=== PATIENT | male | born 1955 | race Two or more races ===

== ENCOUNTER 2018-02-02 13:20 | Inpatient (IN) | payer MEDICARE, MEDICAID ==
[~2018-02-02] VITALS: Ht 170.2 cm; Wt 66.0 kg
[2018-02-02] MEDS ORDERED: PROAIR HFA8.5 GM INH (13:56)
[2018-02-02] MEDS ORDERED: ROXICODONE5 MG ORAL (13:56)
[2018-02-02] MEDS ORDERED: OXYCODONE HCL20 M1 ORAL (13:56)
[2018-02-02] MEDS ORDERED: ARANESP100 MCG/1 SUBQ (13:56)
[2018-02-02] MEDS ORDERED: HYDRALAZINE HCL25 M1 ORAL (13:56)
[2018-02-02] MEDS ORDERED: BISACODYL10 M1 RC (13:56)
[2018-02-02] MEDS ORDERED: SENNA8.6 M2 PO (13:56)
[2018-02-02] MEDS ORDERED: ROBITUSSIN DM PO (13:56)
[2018-02-02] MEDS ORDERED: METOPROLOL TART50 M1 ORAL (13:56)
[2018-02-02] MEDS ORDERED: DOCUSATE SODIU100 MG ORAL (13:56)
[2018-02-02] MEDS ORDERED: NICODERM CQ1 EAC1 TD (13:56)
[2018-02-02] MEDS ORDERED: CATAPRES0.2 MG ORAL (13:56)
[2018-02-02] MEDS ORDERED: RENVELA0.8 GM ORAL (13:56)
[2018-02-02] MEDS ORDERED: AMBIEN10 MG ORAL (13:56)
[2018-02-02] MEDS ORDERED: ACETAMINOPHEN325 M1 ORAL (13:56)
[2018-02-02] MEDS ORDERED: AMLODIPINE BESY10 MG ORAL (13:56)
[2018-02-02] MEDS ORDERED: RENVELA800 MG ORAL (13:56)
[2018-02-02] MEDS ORDERED: QUETIAPINE FUMA25 MG ORAL (13:56)
[2018-02-02] MEDS ORDERED: XANAX0.25 MG ORAL (13:56)
[2018-02-02] MEDS ORDERED: ZOFRAN ODT4 MG ORAL (13:56)
[2018-02-02] MEDS ORDERED: IPRATROPIU0.2 MG/1 M HHN (13:56)
[2018-02-02] MEDS ORDERED: Pantoprazole 80 MG in NS 250 ML IV ONE (14:00)
[2018-02-02] MEDS ORDERED: Pantoprazole Inj IVP ONE (14:00)
[2018-02-02 14:09] LABS: HEMATOCRIT 23.2 % (42.0-52.0); HEMOGLOBIN 7.5 G/DL (14.2-18.0); MEAN CORPUSCULAR VOLUME 96 FL (80-99); PLATELET COUNT 139 K/UL (150-450); RED BLOOD COUNT 2.42 M/UL (4.70-6.10); RED CELL DISTRIBUTION WIDTH 17.5 % (11.6-14.8); WHITE BLOOD COUNT 5.9 K/UL (4.8-10.8)
[2018-02-02 14:10] VITALS: BP 167/67
[2018-02-02 14:18] LABS: ALANINE AMINOTRANSFERASE 10 U/L (12-78); ALBUMIN 3.1 G/DL (3.4-5.0); ALBUMIN/GLOBULIN RATIO 0.6 (1.0-2.7); ALKALINE PHOSPHATASE 304 U/L (46-116); ANION GAP 7 mmol/L (5-15); ASPARTATE AMINO TRANSFERASE 12 U/L (15-37); BILIRUBIN,TOTAL 0.6 MG/DL (0.2-1.0); BLOOD UREA NITROGEN 59 mg/dL (7-18); CALCIUM 8.4 MG/DL (8.5-10.1); CARBON DIOXIDE 33 MMOL/L (21-32); CHLORIDE 103 MMOL/L (98-107); CREATININE 7.8 MG/DL (0.55-1.30); SODIUM 143 MMOL/L (136-145)
[2018-02-02 14:19] LABS: INR 1.1 (0.9-1.1)
[2018-02-02 14:20] LABS: POTASSIUM 6.1 MMOL/L (3.5-5.1)
--- NOTE | 2018-02-02 14:21 | Emergency Room Report ---
History of Present Illness General Chief Complaint: Abnormal Labs Source: Patient, Medical Record Present Illness HPI Patient presents in emergency department today complaining of anemia. Patient has a history of renal failure and is on dialysis. Patient currently stays at a assisted. Patient's primary care physician is Dr. Pedro Hutson. Patient apparently had a hip fracture recently and is been recuperating at the convalescent home. Patient was noted to be anemic and came here for further evaluation. His hemoglobin reportedly was 6.8. Patient complains of weakness does appear pale. He denies any chest pain shortness of breath. Denies any melena. No other complaints were noted. Symptoms noted to be moderate to severe.No other modifying factors. No other associated signs and symptoms. No other complaints were noted. Allergies: Coded Allergies: No Known Allergies (Unverified , 02/02/18) Patient History Past Medical History: HTN, COPD, psych hx - ptsd, renal disease, dialysis, other - bph Reviewed Nursing Documentation: PMH: Agreed; PSxH: Agreed Nursing Documentation-PMH Hx Hypertension: Yes Hx COPD: Yes Hx Gastrointestinal Problems: Yes - BPH Hx Dialysis: Yes - ESRD,[id number] History Of Psychiatric Problem: Yes - PTSD Review of Systems All Other Systems: negative except mentioned in HPI Physical Exam Vital Signs Date Time Temp Pulse Resp B/P (MAP) Pulse Ox O2 Delivery O2 Flow Rate FiO2 02/02/18 13:21 98.0 74 14 147/71 91 Room Air 98.1 02/02/18 14:10 2.0 Sp02 EP Interpretation: reviewed, normal General Appearance: alert, moderate distress Head: normocephalic, atraumatic Eyes: bilateral eye normal inspection, bilateral eye other - Pale conjunctiva ENT: normal ENT inspection, hearing grossly normal, normal voice Neck: normal inspection, full range of motion, supple, no bony tend Respiratory: normal inspection, lungs clear, normal breath sounds, no respiratory distress, no retraction, no wheezing Cardiovascular #1: regular rate, rhythm, no edema Gastrointestinal: normal inspection, normal bowel sounds, non tender, soft, no guarding, no hernia Genitourinary: no CVA tenderness Musculoskeletal: normal inspection, back normal, normal range of motion Neurologic: normal inspection, alert, responsive, speech normal Psychiatric: normal inspection, judgement/insight normal, depressed affect Skin: normal inspection, normal color, no rash Procedures Critical Care Time Critical Care Time Patient had a critical medical condition which untreated could potentially result in life or limb threatening injury. Total critical care time excluding procedures was approximately 45 minutes. Medical Decision Making Diagnostic Impression: Primary Impression: Abnormal laboratory test result Additional Impressions: Acute hyperkalemia Symptomatic anemia ER Course Patient presents emergency department today with anemia noted at the assisted. Patient is also due for dialysis. Differential diagnoses include acute severe symptomatically anemia, GI bleeding, hyperkalemia, other electrolyte abnormality just to name a few.Given the severity of the patient's presentation I felt this is a highly complex patient. This patient required extensive workup. Patient's laboratory workup shows significant elevated potassium. EKG shows prominent T waves. This is concerning for severe hyperkalemia. Patient require immediate treatment. Patient was started on Kayexalate and bicarbonate. Albuterol was also administered. Patient is type and screen will likely require blood transfusion. Case discussed with Dr. Pedro Hutson. Patient will be admitted to telemetry for further treatment. Labs Test 02/02/18 13:50 White Blood Count 5.9 K/UL (4.8-10.8) Red Blood Count 2.42 M/UL (4.70-6.10) Hemoglobin 7.5 G/DL (14.2-18.0) Hematocrit 23.2 % (42.0-52.0) Mean Corpuscular Volume 96 FL (80-99) Mean Corpuscular Hemoglobin 31.2 PG (27.0-31.0) Mean Corpuscular Hemoglobin Concent 32.5 G/DL (32.0-36.0) Red Cell Distribution Width 17.5 % (11.6-14.8) Platelet Count 139 K/UL (150-450) Mean Platelet Volume 5.6 FL (6.5-10.1) Neutrophils (%) (Auto) % (45.0-75.0) Lymphocytes (%) (Auto) % (20.0-45.0) Monocytes (%) (Auto) % (1.0-10.0) Eosinophils (%) (Auto) % (0.0-3.0) Basophils (%) (Auto) % (0.0-2.0) Prothrombin Time 11.4 SEC (9.30-11.50) Prothromb Time International Ratio 1.1 (0.9-1.1) Activated Partial Thromboplast Time 31 SEC (23-33) Sodium Level 143 MMOL/L (136-145) Potassium Level 6.1 MMOL/L (3.5-5.1) Chloride Level 103 MMOL/L (98-107) Carbon Dioxide Level 33 MMOL/L (21-32) Anion Gap 7 mmol/L (5-15) Blood Urea Nitrogen 59 mg/dL (7-18) Creatinine 7.8 MG/DL (0.55-1.30) Estimat Glomerular Filtration Rate 7.0 mL/min (>60) Glucose Level 113 MG/DL (74-106) Calcium Level 8.4 MG/DL (8.5-10.1) Total Bilirubin 0.6 MG/DL (0.2-1.0) Aspartate Amino Transf (AST/SGOT) 12 U/L (15-37) Alanine Aminotransferase (ALT/SGPT) 10 U/L (12-78) Alkaline Phosphatase 304 U/L (46-116) Troponin I 0.005 ng/mL (0.000-0.056) Total Protein 7.9 G/DL (6.4-8.2) Albumin 3.1 G/DL (3.4-5.0) Globulin 4.8 g/dL Albumin/Globulin Ratio 0.6 (1.0-2.7) EKG Diagnostic Results Rate: normal Rhythm: NSR ST Segments: other - Prominent T waves Rhythm Strip Diag. Results EP Interpretation: yes Rate: 73 Rhythm: NSR Last Vital Signs Date Time Temp Pulse Resp B/P (MAP) Pulse Ox O2 Delivery O2 Flow Rate FiO2 02/02/18 14:10 97.6 98 21 167/67 Nasal Cannula 2.0 97.6 02/02/18 13:21 91 Status: improved Disposition: ADMITTED INPATIENT Condition: Serious Referrals: PEDRO HUTSON (PCP) KARLENE CAMERON M.D. Feb 02, 2018 14:21
[2018-02-02] MEDS ORDERED: Pantoprazole Inj ONE (14:30)
[2018-02-02] MEDS ORDERED: Albuterol ud Inhalation HHN ONE (14:30)
[2018-02-02] MEDS ORDERED: Sodium Bicarbonate 50ml Carp IV ONE (14:30)
[2018-02-02] MEDS ORDERED: Sodium Polystyrene Sulfonate 15gm Powder ORAL ONE (14:30)
--- NOTE | 2018-02-02 15:50 | Consultation ---
Consult Note Consult Note asked to eval for dialysis management ESRD on HD Sun didnt receive HD today Patient presents in emergency department today complaining of anemia. Patient has a history of renal failure and is on dialysis. Patient currently stays at a retirement. Patient's primary care physician is Dr. Lebron Swift. Patient apparently had a hip fracture recently and is been recuperating at the convalescent home. Patient was noted to be anemic and came here for further evaluation. His hemoglobin reportedly was 6.8. Patient complains of weakness does appear pale. He denies any chest pain shortness of breath. Denies any melena. No other complaints were noted. Symptoms noted to be moderate to severe.No other modifying factors. No other associated signs and symptoms. No other complaints were noted. Past Medical History: HTN, COPD, psych hx - ptsd, renal disease, dialysis, other - bph Hx Hypertension: Yes Hx COPD: Yes Hx Gastrointestinal Problems: Yes - BPH Hx Dialysis: Yes - ESRD,[id number] History Of Psychiatric Problem: Yes - PTSD interviewed- Examined- data reviewed Assessment/Plan ESRD, missed dialysis . has high K has fistula right arm Sever Anemia h/o Amyloidosis COPD HD MICHAEL Transfuse BP control DALTON ROSENTHAL Feb 02, 2018 15:50
[2018-02-02 20:00] VITALS: BP 206/95
[2018-02-02] MEDS: Acetaminophen 500mg (ES) tab ORAL PRN ×2 (21:20→21:21)
[2018-02-02] MEDS: DiphenhydrAMINE 50mg/ml Inj IVP PRN (21:20)
[2018-02-02 21:30] VITALS: BP 191/82
--- NOTE | 2018-02-02 23:45 | History and Physical Report ---
DATE OF ADMISSION: 02/02/2018 ADMITTING PHYSICIAN: Lebron Swift D.O. COVERING PHYSICIAN: Rahul Lewis M.D. REASON FOR ADMISSION: Significant anemia, hyperkalemia. CURRENT COMPLAINT/HISTORY OF PRESENT ILLNESS: Dear Dr. Lebron Swift: Today, I had an opportunity to see one of your patients, who as you are well aware, a 63-year-old delightful gentleman with past medical history remarkable for renal failure, hemodialysis dependent. The patient is currently a [facility] resident. The patient ended up recently with a hip fracture and was recuperating in a convalescent home. During evaluation, it was found that the patient developed significant anemia with hemoglobin of 7.5 and significant hyperkalemia with potassium level of 6.8. The patient will be admitted to for further stabilization and treatment. PAST MEDICAL HISTORY: 1. End-stage renal disease, hemodialysis dependent. 2. Anemia of kidney disease. 3. Anemia of iron deficiency. 4. Psychosis. 5. History of posttraumatic stress disorder. 6. Hypertension. 7. COPD. 8. BPH. MEDICATIONS: 1. Clonidine. 2. Protonix. ALLERGIES: NKDA. FAMILY HISTORY: Noncontributory. SOCIAL HISTORY: No history of smoking. No history of alcohol abuse. No history of illicit drug use. REVIEW OF SYSTEMS: GENERAL DESCRIPTION: The patient not in any significant distress, but looks chronically ill. RESPIRATORY SYSTEM: Mild shortness of breath on exertion. GASTROINTESTINAL SYSTEM: The patient claimed constipation. NEUROMUSCULAR SYSTEM: The patient claimed muscle aches. PHYSICAL EXAMINATION: VITAL SIGNS: T-max 97, respiratory rate 20, heart rate 80, blood pressure 130/80. HEENT: Head normocephalic, atraumatic. NECK: Supple. No thyroid enlargement. No lymphadenopathy. LUNGS: Decreased breath sounds bilaterally with few rhonchi in the base. HEART: S1, S2 regular. ABDOMEN: Abdomen is so benign. No organomegaly present. Bowel sounds present. EXTREMITIES: No cyanosis, clubbing, or edema. LABORATORY DATA: WBC 5.9, hemoglobin 7.5, hematocrit 23.2, platelets 139,000. Chemistry showed potassium 6.1. IMPRESSION: 1. Anemia of kidney disease. 2. Anemia of iron deficiency. 3. Decreased hemoglobin and hematocrit, rule out GI bleed. 4. Hyperkalemia. 5. Thrombocytopenia. 6. Hypertension. 7. COPD. 8. Posttraumatic stress disorder. 9. BPH. 10. Malnutrition. 11. Failure to thrive. RECOMMENDATIONS: 1. Watch count. 2. Watch coagulopathy. 3. PRBC transfusion p.r.n. basis. 4. Procrit subcutaneous. 5. Iron IV. 6. Hemodialysis p.r.n. basis. 7. Nephrology followup. 8. Cardiology followup. 9. Continue current treatment. 10. Discussed with staff. 11. Skin care. 12. Nutrition. Rahul MD Joshua DR: [facility] JOB#: [id number] CC:
[2018-02-03] VITALS (7 sets, daily range): BP systolic 127–197; BP diastolic 68–93
[2018-02-03 06:46] LABS: HEMATOCRIT 23.1 % (42.0-52.0); HEMOGLOBIN 7.5 G/DL (14.2-18.0); MEAN CORPUSCULAR VOLUME 95 FL (80-99); PLATELET COUNT 136 K/UL (150-450); RED BLOOD COUNT 2.43 M/UL (4.70-6.10); RED CELL DISTRIBUTION WIDTH 16.6 % (11.6-14.8); WHITE BLOOD COUNT 5.7 K/UL (4.8-10.8)
[2018-02-03 06:53] LABS: INR 1.1 (0.9-1.1)
[2018-02-03 07:53] LABS: ALANINE AMINOTRANSFERASE 10 U/L (12-78); ALBUMIN 3.3 G/DL (3.4-5.0); ALBUMIN/GLOBULIN RATIO 0.7 (1.0-2.7); ALKALINE PHOSPHATASE 318 U/L (46-116); ANION GAP 6 mmol/L (5-15); ASPARTATE AMINO TRANSFERASE 14 U/L (15-37); BILIRUBIN,TOTAL 0.8 MG/DL (0.2-1.0); BLOOD UREA NITROGEN 39 mg/dL (7-18); CALCIUM 8.6 MG/DL (8.5-10.1); CARBON DIOXIDE 39 MMOL/L (21-32); CHLORIDE 99 MMOL/L (98-107); CHOLESTEROL 103 MG/DL (< 200); CREATINE KINASE 32 U/L (26-308); CREATININE 5.3 MG/DL (0.55-1.30); FERRITIN 1330 NG/ML (8-388); GAMMA GLUTAMYL TRANSPEPTIDASE 46 U/L (5-85); HDL CHOLESTEROL 38 MG/DL (40-60); POTASSIUM 4.1 MMOL/L (3.5-5.1); SODIUM 144 MMOL/L (136-145); TRIGLYCERIDES 79 MG/DL (30-150)
[2018-02-03 08:53] LABS: % IRON SATURATION 21 % (15-50); IRON 36 ug/dL (50-175); TOTAL IRON BINDING CAPACITY 170 ug/dL (250-450)
--- NOTE | 2018-02-03 08:53 | Nephrology Progress Note ---
Assessment/Plan Problem List: (1) Acute hyperkalemia (2) ESRD (end stage renal disease) on dialysis (3) Hypertension, uncontrolled Assessment ESRD, missed dialysis . has high K on admission has fistula right arm Sever Anemia h/o Amyloidosis COPD Plan HD done last night Transfusion due for one unit now BP control, meds adjusted Subjective ROS Limited/Unobtainable: No Objective Objective Last 24 Hour Vital Signs Date Time Temp Pulse Resp B/P (MAP) Pulse Ox O2 Delivery O2 Flow Rate FiO2 02/03/18 08:00 98.1 79 20 170/93 94 Room Air 98.1 02/03/18 05:41 190/73 02/03/18 04:00 98.1 74 20 190/73 88 Room Air 98.1 02/03/18 04:00 79 02/03/18 00:48 Nasal Cannula 2.5 02/03/18 00:47 97.9 69 20 182/81 Nasal Cannula 2.5 97.9 02/03/18 00:00 97.9 68 20 197/87 97 Room Air 97.9 02/03/18 00:00 66 02/02/18 22:19 97.6 02/02/18 21:30 97.2 74 16 191/82 Room Air 97.2 02/02/18 21:30 Room Air 02/02/18 20:00 88 02/02/18 20:00 97.5 74 20 206/95 82 Room Air 97.5 02/02/18 15:15 78 22 95 Nasal Cannula 3.0 32 02/02/18 15:04 77 18 Nasal Cannula 4.0 36 02/02/18 15:04 77 18 91 Nasal Cannula 4.0 36 02/02/18 14:10 97.6 98 21 167/67 Nasal Cannula 2.0 97.6 02/02/18 13:21 98.0 74 14 147/71 91 Room Air 98.1 Intake and Output 02/02/18 02/03/18 19:00 07:00 Intake Total 120 ml 150 ml Output Total 2561 ml Balance 120 ml -2411 ml Intake Oral 120 ml 150 ml Output Hemodialysis UF 2561 ml # Voids 3 Laboratory Tests 02/02/18 13:50: White Blood Count 5.9, Red Blood Count 2.42L, Hemoglobin 7.5L, Hematocrit 23.2L , Mean Corpuscular Volume 96, Mean Corpuscular Hemoglobin 31.2H, Mean Corpuscular Hemoglobin Concent 32.5, Red Cell Distribution Width 17.5H, Platelet Count 139L, Mean Platelet Volume 5.6L, Neutrophils (%) (Auto) , Lymphocytes (%) (Auto) , Monocytes (%) (Auto) , Eosinophils (%) (Auto) , Basophils (%) (Auto) , Differential Total Cells Counted 100, Neutrophils % ( Manual) 71, Lymphocytes % (Manual) 22, Monocytes % (Manual) 5, Eosinophils % ( Manual) 2, Basophils % (Manual) 0, Band Neutrophils 0, Platelet Estimate DecreasedL, Platelet Morphology Normal, Prothrombin Time 11.4, Prothromb Time International Ratio 1.1, Activated Partial Thromboplast Time 31, Sodium Level 143, Potassium Level 6.1*H, Chloride Level 103, Carbon Dioxide Level 33H, Anion Gap 7, Blood Urea Nitrogen 59H, Creatinine 7.8H, Estimat Glomerular Filtration Rate 7.0, Glucose Level 113H, Calcium Level 8.4L, Total Bilirubin 0.6, Aspartate Amino Transf (AST/SGOT) 12L, Alanine Aminotransferase (ALT/SGPT) 10L, Alkaline Phosphatase 304H, Troponin I 0.005, C-Reactive Protein, Quantitative 5.9H, Total Protein 7.9, Albumin 3.1L, Globulin 4.8, Albumin/Globulin Ratio 0.6L 02/03/18 06:30: White Blood Count 5.7, Red Blood Count 2.43L, Hemoglobin 7.5L, Hematocrit 23.1L , Mean Corpuscular Volume 95, Mean Corpuscular Hemoglobin 30.9, Mean Corpuscular Hemoglobin Concent 32.5, Red Cell Distribution Width 16.6H, Platelet Count 136L, Mean Platelet Volume 5.3L, Neutrophils (%) (Auto) , Lymphocytes (%) (Auto) , Monocytes (%) (Auto) , Eosinophils (%) (Auto) , Basophils (%) (Auto) , Neutrophils % (Manual) [Pending], Lymphocytes % (Manual) [Pending], Platelet Estimate [Pending], Platelet Morphology [Pending], Prothrombin Time 11.4, Prothromb Time International Ratio 1.1, Sodium Level 144 , Potassium Level 4.1, Chloride Level 99, Carbon Dioxide Level 39H, Anion Gap 6 , Blood Urea Nitrogen 39H, Creatinine 5.3H, Estimat Glomerular Filtration Rate 11.0, Glucose Level 88, Calcium Level 8.6, Total Bilirubin 0.8, Aspartate Amino Transf (AST/SGOT) 14L, Alanine Aminotransferase (ALT/SGPT) 10L, Alkaline Phosphatase 318H, Troponin I 0.003, Total Protein 8.3H, Albumin 3.3L, Globulin 5.0, Albumin/Globulin Ratio 0.7L, Hemoglobin A1c 4.6, Uric Acid 3.2, Phosphorus Level 5.0H, Magnesium Level 1.9, Iron Level [Pending], Unsaturated Iron Binding [Pending], Ferritin 1330H, Gamma Glutamyl Transpeptidase 46, Total Creatine Kinase 32, Pro-B-Type Natriuretic Peptide 48224I, Triglycerides Level 79, Cholesterol Level 103, LDL Cholesterol 51, HDL Cholesterol 38L, Cholesterol/HDL Ratio 2.7L, Vitamin B12 Level 534, Folate 7.8L, Thyroid Stimulating Hormone (TSH ) 8.726H Height (Feet): 5 Height (Inches): 7.00 Weight (Pounds): 128 General Appearance: no apparent distress Cardiovascular: normal rate Respiratory/Chest: decreased breath sounds Abdomen: soft DLATON ROSENTHAL Feb 03, 2018 08:53
--- NOTE | 2018-02-03 10:31 | Cardiology Progress Note ---
Assessment/Plan Assessment/Plan htn acute dvt esrd anemai repeorted hs of gi bleed requring cuaterization resume bp meds form snf consider acie if ok with renal gi evla to ro recurrent gib may need ivc fitler if nto able to get anticoagulation for dvt message left form dr enciso pt pmd here 10;30 am [id number] Objective Last 24 Hour Vital Signs Date Time Temp Pulse Resp B/P (MAP) Pulse Ox O2 Delivery O2 Flow Rate FiO2 02/03/18 09:02 170/93 02/03/18 08:00 98.1 79 20 170/93 94 Room Air 98.1 02/03/18 05:41 190/73 02/03/18 04:00 98.1 74 20 190/73 88 Room Air 98.1 02/03/18 04:00 79 02/03/18 00:48 Nasal Cannula 2.5 02/03/18 00:47 97.9 69 20 182/81 Nasal Cannula 2.5 97.9 02/03/18 00:00 97.9 68 20 197/87 97 Room Air 97.9 02/03/18 00:00 66 02/02/18 22:19 97.6 02/02/18 21:30 97.2 74 16 191/82 Room Air 97.2 02/02/18 21:30 Room Air 02/02/18 20:00 88 02/02/18 20:00 97.5 74 20 206/95 82 Room Air 97.5 02/02/18 15:15 78 22 95 Nasal Cannula 3.0 32 02/02/18 15:04 77 18 Nasal Cannula 4.0 36 02/02/18 15:04 77 18 91 Nasal Cannula 4.0 36 02/02/18 14:10 97.6 98 21 167/67 Nasal Cannula 2.0 97.6 02/02/18 13:21 98.0 74 14 147/71 91 Room Air 98.1 Intake and Output 02/02/18 02/03/18 19:00 07:00 Intake Total 120 ml 150 ml Output Total 2561 ml Balance 120 ml -2411 ml Intake Oral 120 ml 150 ml Output Hemodialysis UF 2561 ml # Voids 3 Laboratory Tests Test 02/02/18 13:50 02/03/18 06:30 White Blood Count 5.9 K/UL (4.8-10.8) 5.7 K/UL (4.8-10.8) Red Blood Count 2.42 M/UL (4.70-6.10) L 2.43 M/UL (4.70-6.10) L Hemoglobin 7.5 G/DL (14.2-18.0) L 7.5 G/DL (14.2-18.0) L Hematocrit 23.2 % (42.0-52.0) L 23.1 % (42.0-52.0) L Mean Corpuscular Volume 96 FL (80-99) 95 FL (80-99) Mean Corpuscular Hemoglobin 31.2 PG (27.0-31.0) H 30.9 PG (27.0-31.0) Mean Corpuscular Hemoglobin Concent 32.5 G/DL (32.0-36.0) 32.5 G/DL (32.0-36.0) Red Cell Distribution Width 17.5 % (11.6-14.8) H 16.6 % (11.6-14.8) H Platelet Count 139 K/UL (150-450) L 136 K/UL (150-450) L Mean Platelet Volume 5.6 FL (6.5-10.1) L 5.3 FL (6.5-10.1) L Neutrophils (%) (Auto) % (45.0-75.0) % (45.0-75.0) Lymphocytes (%) (Auto) % (20.0-45.0) % (20.0-45.0) Monocytes (%) (Auto) % (1.0-10.0) % (1.0-10.0) Eosinophils (%) (Auto) % (0.0-3.0) % (0.0-3.0) Basophils (%) (Auto) % (0.0-2.0) % (0.0-2.0) Differential Total Cells Counted 100 100 Neutrophils % (Manual) 71 % (45-75) 69 % (45-75) Lymphocytes % (Manual) 22 % (20-45) 17 % (20-45) L Monocytes % (Manual) 5 % (1-10) 10 % (1-10) Eosinophils % (Manual) 2 % (0-3) 4 % (0-3) H Basophils % (Manual) 0 % (0-2) 0 % (0-2) Band Neutrophils 0 % (0-8) 0 % (0-8) Platelet Estimate Decreased L Decreased L Platelet Morphology Normal Normal Prothrombin Time 11.4 SEC (9.30-11.50) 11.4 SEC (9.30-11.50) Prothromb Time International Ratio 1.1 (0.9-1.1) 1.1 (0.9-1.1) Activated Partial Thromboplast Time 31 SEC (23-33) Sodium Level 143 MMOL/L (136-145) 144 MMOL/L (136-145) Potassium Level 6.1 MMOL/L (3.5-5.1) *H 4.1 MMOL/L (3.5-5.1) Chloride Level 103 MMOL/L (98-107) 99 MMOL/L (98-107) Carbon Dioxide Level 33 MMOL/L (21-32) H 39 MMOL/L (21-32) H Anion Gap 7 mmol/L (5-15) 6 mmol/L (5-15) Blood Urea Nitrogen 59 mg/dL (7-18) H 39 mg/dL (7-18) H Creatinine 7.8 MG/DL (0.55-1.30) H 5.3 MG/DL (0.55-1.30) H Estimat Glomerular Filtration Rate 7.0 mL/min (>60) 11.0 mL/min (>60) Glucose Level 113 MG/DL (74-106) H 88 MG/DL (74-106) Calcium Level 8.4 MG/DL (8.5-10.1) L 8.6 MG/DL (8.5-10.1) Total Bilirubin 0.6 MG/DL (0.2-1.0) 0.8 MG/DL (0.2-1.0) Aspartate Amino Transf (AST/SGOT) 12 U/L (15-37) L 14 U/L (15-37) L Alanine Aminotransferase (ALT/SGPT) 10 U/L (12-78) L 10 U/L (12-78) L Alkaline Phosphatase 304 U/L (46-116) H 318 U/L (46-116) H Troponin I 0.005 ng/mL (0.000-0.056) 0.003 ng/mL (0.000-0.056) C-Reactive Protein, Quantitative 5.9 mg/dL (0.00-0.90) H Total Protein 7.9 G/DL (6.4-8.2) 8.3 G/DL (6.4-8.2) H Albumin 3.1 G/DL (3.4-5.0) L 3.3 G/DL (3.4-5.0) L Globulin 4.8 g/dL 5.0 g/dL Albumin/Globulin Ratio 0.6 (1.0-2.7) L 0.7 (1.0-2.7) L Hypochromasia 1+ Anisocytosis 1+ Hemoglobin A1c 4.6 % (4.3-6.0) Uric Acid 3.2 MG/DL (2.6-7.2) Phosphorus Level 5.0 MG/DL (2.5-4.9) H Magnesium Level 1.9 MG/DL (1.8-2.4) Iron Level 36 ug/dL (50-175) L Total Iron Binding Capacity 170 ug/dL (250-450) L Percent Iron Saturation 21 % (15-50) Unsaturated Iron Binding 134 ug/dL (112-346) Ferritin 1330 NG/ML (8-388) H Gamma Glutamyl Transpeptidase 46 U/L (5-85) Total Creatine Kinase 32 U/L (26-308) Pro-B-Type Natriuretic Peptide 03291 pg/mL (0-125) H Triglycerides Level 79 MG/DL (30-150) Cholesterol Level 103 MG/DL (< 200) LDL Cholesterol 51 mg/dL (<100) HDL Cholesterol 38 MG/DL (40-60) L Cholesterol/HDL Ratio 2.7 (3.3-4.4) L Vitamin B12 Level 534 PG/ML (193-986) Folate 7.8 NG/ML (8.6-58.9) L Thyroid Stimulating Hormone (TSH) 8.726 uiU/mL (0.358-3.740) JACINTO CORONA Feb 03, 2018 10:31
[2018-02-03] MEDS ORDERED: Metoprolol Tartrate 50mg tab ORAL SCH (11:00)
[2018-02-03] MEDS ORDERED: cloNIDine 0.2mg Tab ORAL SCH (11:00)
[2018-02-03] MEDS: HydrALAZINE 25mg tab ORAL SCH ×3 (12:36→21:49)
--- NOTE | 2018-02-03 12:57 | General Progress Note ---
Assessment/Plan Assessment/Plan GI CONSULT Dictated. Normocytic anemia. Iron panel noted. OK for anticoagulation from GI standpoint Will check stool OB May need GI w/u if OB (+) Thank you P MD Amarilis Subjective Allergies: Coded Allergies: No Known Allergies (Unverified , 02/02/18) Objective Last 24 Hour Vital Signs Date Time Temp Pulse Resp B/P (MAP) Pulse Ox O2 Delivery O2 Flow Rate FiO2 02/03/18 12:36 70 134/68 02/03/18 12:36 134/68 02/03/18 12:00 98.4 70 21 134/68 93 Room Air 98.4 02/03/18 09:02 170/93 02/03/18 08:00 98.1 79 20 170/93 94 Room Air 98.1 02/03/18 05:41 190/73 02/03/18 04:00 98.1 74 20 190/73 88 Room Air 98.1 02/03/18 04:00 79 02/03/18 00:48 Nasal Cannula 2.5 02/03/18 00:47 97.9 69 20 182/81 Nasal Cannula 2.5 97.9 02/03/18 00:00 97.9 68 20 197/87 97 Room Air 97.9 02/03/18 00:00 66 02/02/18 22:19 97.6 02/02/18 21:30 97.2 74 16 191/82 Room Air 97.2 02/02/18 21:30 Room Air 02/02/18 20:00 88 02/02/18 20:00 97.5 74 20 206/95 82 Room Air 97.5 02/02/18 15:15 78 22 95 Nasal Cannula 3.0 32 02/02/18 15:04 77 18 Nasal Cannula 4.0 36 02/02/18 15:04 77 18 91 Nasal Cannula 4.0 36 02/02/18 14:10 97.6 98 21 167/67 Nasal Cannula 2.0 97.6 02/02/18 13:21 98.0 74 14 147/71 91 Room Air 98.1 Intake and Output 02/02/18 02/03/18 19:00 07:00 Intake Total 120 ml 150 ml Output Total 2561 ml Balance 120 ml -2411 ml Intake Oral 120 ml 150 ml Output Hemodialysis UF 2561 ml # Voids 3 Laboratory Tests 02/02/18 13:50: White Blood Count 5.9, Red Blood Count 2.42L, Hemoglobin 7.5L, Hematocrit 23.2L , Mean Corpuscular Volume 96, Mean Corpuscular Hemoglobin 31.2H, Mean Corpuscular Hemoglobin Concent 32.5, Red Cell Distribution Width 17.5H, Platelet Count 139L, Mean Platelet Volume 5.6L, Neutrophils (%) (Auto) , Lymphocytes (%) (Auto) , Monocytes (%) (Auto) , Eosinophils (%) (Auto) , Basophils (%) (Auto) , Differential Total Cells Counted 100, Neutrophils % ( Manual) 71, Lymphocytes % (Manual) 22, Monocytes % (Manual) 5, Eosinophils % ( Manual) 2, Basophils % (Manual) 0, Band Neutrophils 0, Platelet Estimate DecreasedL, Platelet Morphology Normal, Prothrombin Time 11.4, Prothromb Time International Ratio 1.1, Activated Partial Thromboplast Time 31, Sodium Level 143, Potassium Level 6.1*H, Chloride Level 103, Carbon Dioxide Level 33H, Anion Gap 7, Blood Urea Nitrogen 59H, Creatinine 7.8H, Estimat Glomerular Filtration Rate 7.0, Glucose Level 113H, Calcium Level 8.4L, Total Bilirubin 0.6, Aspartate Amino Transf (AST/SGOT) 12L, Alanine Aminotransferase (ALT/SGPT) 10L, Alkaline Phosphatase 304H, Troponin I 0.005, C-Reactive Protein, Quantitative 5.9H, Total Protein 7.9, Albumin 3.1L, Globulin 4.8, Albumin/Globulin Ratio 0.6L 02/03/18 06:30: White Blood Count 5.7, Red Blood Count 2.43L, Hemoglobin 7.5L, Hematocrit 23.1L , Mean Corpuscular Volume 95, Mean Corpuscular Hemoglobin 30.9, Mean Corpuscular Hemoglobin Concent 32.5, Red Cell Distribution Width 16.6H, Platelet Count 136L, Mean Platelet Volume 5.3L, Neutrophils (%) (Auto) , Lymphocytes (%) (Auto) , Monocytes (%) (Auto) , Eosinophils (%) (Auto) , Basophils (%) (Auto) , Differential Total Cells Counted 100, Neutrophils % ( Manual) 69, Lymphocytes % (Manual) 17L, Monocytes % (Manual) 10, Eosinophils % ( Manual) 4H, Basophils % (Manual) 0, Band Neutrophils 0, Platelet Estimate DecreasedL, Platelet Morphology Normal, Prothrombin Time 11.4, Prothromb Time International Ratio 1.1, Sodium Level 144, Potassium Level 4.1, Chloride Level 99, Carbon Dioxide Level 39H, Anion Gap 6, Blood Urea Nitrogen 39H, Creatinine 5.3H, Estimat Glomerular Filtration Rate 11.0, Glucose Level 88, Calcium Level 8.6, Total Bilirubin 0.8, Aspartate Amino Transf (AST/SGOT) 14L, Alanine Aminotransferase (ALT/SGPT) 10L, Alkaline Phosphatase 318H, Troponin I 0.003, Total Protein 8.3H, Albumin 3.3L, Globulin 5.0, Albumin/Globulin Ratio 0.7L, Hypochromasia 1+, Anisocytosis 1+, Hemoglobin A1c 4.6, Uric Acid 3.2, Phosphorus Level 5.0H, Magnesium Level 1.9, Iron Level 36L, Total Iron Binding Capacity 170L, Percent Iron Saturation 21, Unsaturated Iron Binding 134, Ferritin 1330H, Gamma Glutamyl Transpeptidase 46, Total Creatine Kinase 32, Pro- B-Type Natriuretic Peptide [id number], Triglycerides Level 79, Cholesterol Level 103 , LDL Cholesterol 51, HDL Cholesterol 38L, Cholesterol/HDL Ratio 2.7L, Vitamin B12 Level 534, Folate 7.8L, Thyroid Stimulating Hormone (TSH) 8.726H Height (Feet): 5 Height (Inches): 7.00 Weight (Pounds): 128 LYRIC SOLIS Feb 03, 2018 12:57
[2018-02-03] MEDS ORDERED: Lidocaine 1% Plain 30 ml INJ ONE (13:00)
[2018-02-03] MEDS ORDERED: Heparin 2000 units/Ns 1000ml INJ ONE (13:00)
[2018-02-03] MEDS ORDERED: Morphine Sulfate 4mg/ml Inj IVP PRN (13:00)
[2018-02-03] MEDS ORDERED: Sorbitol Solution UD 30ml ORAL SCH ×2 (13:30→15:30)
[2018-02-03] MEDS ORDERED: Morphine Sulfate 4mg/ml Inj IM PRN (13:47)
--- NOTE | 2018-02-03 17:54 | Consultation ---
History of Present Illness General Date patient seen: Feb 03, 2018 Time patient seen: 05:51 - pm Chief Complaint: Right hip pain Referring physician: Dr. Fritz Reason for Consultation: Pain Present Illness HPI Patient was admitted under the care of Dr. Fritz to r/o GI bleed seen by Dr. Luevano. He has been c/o pain in his right hip s/p ORIF due to fx. At longterm where being prescribed Oxycodone 20mg BID and Oxycodone 5mg Q4H PRN. At this time on Morphine 2mg IM Q4H PRN with no relief. We were consulted so patient has adequate pain control while here in the hospital. Allergies: Coded Allergies: No Known Allergies (Unverified , 02/02/18) Medication History Scheduled Albuterol Sulfate* (Proair Hfa*), 2 PUFF INH EVERY 4 HOURS, (Reported) Amlodipine Besylate* (Amlodipine Besylate*), 10 MG ORAL DAILY, (Reported) Bisacodyl (Bisacodyl), 10 MG RC BID, (Reported) Clonidine Hcl* (Catapres*), 0.2 MG ORAL BID, (Reported) Darbepoetin Alfonzo In Polysorbat (Aranesp), 100 MCG SUBQ ONCE A WEEK, (Reported) Docusate Sodium* (Docusate Sodium*), 100 MG ORAL TWICE A DAY, (Reported) Hydralazine Hcl* (Hydralazine Hcl*), 25 MG ORAL FOUR TIMES A DAY, (Reported) Metoprolol Tartrate* (Metoprolol Tartrate*), 50 MG ORAL DAILY, (Reported) Nicotine 14MG Patch* (Nicoderm Cq 14MG*), 1 EACH TD DAILY, (Reported) Quetiapine Fumarate* (Seroquel*), 25 MG ORAL BEDTIME, (Reported) Sennosides (Senna), 8.6 MG PO DAILY, (Reported) Sevelamer Carbonate (Renvela), 3 TAB ORAL THREE TIMES A DAY, (Reported) Sevelamer Carbonate* (Renvela*), 800 MG ORAL THREE TIMES A DAY, (Reported) [Robitussin Dm], 10 ML PO EVERY 6 HOURS, (Reported) Scheduled PRN Acetaminophen* (Acetaminophen 325MG Tablet*), 650 MG ORAL Q4H PRN for Pain Scale (3-5), (Reported) Alprazolam* (Xanax*), 0.25 MG ORAL THREE TIMES A DAY PRN for For Anxiety, ( Reported) Ipratropium Gleason 0.5MG/2.5ML (Ipratropium Gleason 0.5MG/2.5ML), 2 PUFFS HHN FIVE TIMES A DAY PRN for Shortness of Breath, (Reported) Ondansetron Odt* (Zofran Odt*), 4 MG ORAL EVERY 4 HOURS PRN for Nausea & Vomiting, (Reported) Oxycodone HCl (Oxycodone HCl), 5 MG ORAL Q4H PRN for For Pain, (Reported) Oxycodone Hcl (Oxycodone Hcl), 20 MG ORAL EVERY 12 HOURS PRN for For Pain, ( Reported) Zolpidem Tartrate* (Ambien*), 10 MG ORAL BEDTIME PRN for Insomnia, (Reported) Patient History Healthcare decision maker Resuscitation status Full Code Advanced Directive on File Past Medical/Surgical History Past Medical/Surgical History: (1) Acute hyperkalemia (2) Abnormal laboratory test result (3) Symptomatic anemia (4) ESRD (end stage renal disease) on dialysis (5) Hypertension, uncontrolled Review of Systems Constitutional: Reports: no symptoms Eye: Reports: no symptoms ENT: Reports: no symptoms Respiratory: Reports: no symptoms Cardiovascular: Reports: no symptoms Gastrointestinal: Reports: no symptoms Genitourinary: Reports: no symptoms Musculoskeletal: Reports: no symptoms Skin: Reports: no symptoms Psychiatric: Reports: no symptoms Neurological: Reports: no symptoms Endocrine: Reports: no symptoms Hematologic/Lymphatic: Reports: no symptoms Physical Exam General Appearance: no apparent distress, alert HEENT: PERRL, EOMI Neck: non-tender, normal alignment, supple, normal inspection Respiratory/Chest: lungs clear, normal breath sounds, no respiratory distress, no accessory muscle use Cardiovascular/Chest: normal rate, regular rhythm Abdomen: non tender, soft, no organomegaly Extremities: inflammation - right hip tenderness to palpation Skin Exam: normal pigmentation, warm/dry Neurologic: alert, oriented x 3 Last 24 Hour Vital Signs Date Time Temp Pulse Resp B/P (MAP) Pulse Ox O2 Delivery O2 Flow Rate FiO2 02/03/18 16:00 98.1 70 20 136/85 94 Room Air 98.1 02/03/18 14:44 177/121 4/22/18 12:36 70 134/68 02/03/18 12:36 134/68 02/03/18 12:00 98.4 70 21 134/68 93 Room Air 98.4 02/03/18 09:02 170/93 02/03/18 08:00 98.1 79 20 170/93 94 Room Air 98.1 02/03/18 05:41 190/73 02/03/18 04:00 98.1 74 20 190/73 88 Room Air 98.1 02/03/18 04:00 79 02/03/18 00:48 Nasal Cannula 2.5 02/03/18 00:47 97.9 69 20 182/81 Nasal Cannula 2.5 97.9 02/03/18 00:00 97.9 68 20 197/87 97 Room Air 97.9 02/03/18 00:00 66 02/02/18 22:19 97.6 02/02/18 21:30 97.2 74 16 191/82 Room Air 97.2 02/02/18 21:30 Room Air 02/02/18 20:00 88 02/02/18 20:00 97.5 74 20 206/95 82 Room Air 97.5 Intake and Output 02/02/18 02/03/18 19:00 07:00 Intake Total 120 ml 150 ml Output Total 2561 ml Balance 120 ml -2411 ml Intake Oral 120 ml 150 ml Output Hemodialysis UF 2561 ml # Voids 3 Laboratory Tests Test 02/03/18 06:30 White Blood Count 5.7 K/UL (4.8-10.8) Red Blood Count 2.43 M/UL (4.70-6.10) L Hemoglobin 7.5 G/DL (14.2-18.0) L Hematocrit 23.1 % (42.0-52.0) L Mean Corpuscular Volume 95 FL (80-99) Mean Corpuscular Hemoglobin 30.9 PG (27.0-31.0) Mean Corpuscular Hemoglobin Concent 32.5 G/DL (32.0-36.0) Red Cell Distribution Width 16.6 % (11.6-14.8) H Platelet Count 136 K/UL (150-450) L Mean Platelet Volume 5.3 FL (6.5-10.1) L Neutrophils (%) (Auto) % (45.0-75.0) Lymphocytes (%) (Auto) % (20.0-45.0) Monocytes (%) (Auto) % (1.0-10.0) Eosinophils (%) (Auto) % (0.0-3.0) Basophils (%) (Auto) % (0.0-2.0) Differential Total Cells Counted 100 Neutrophils % (Manual) 69 % (45-75) Lymphocytes % (Manual) 17 % (20-45) L Monocytes % (Manual) 10 % (1-10) Eosinophils % (Manual) 4 % (0-3) H Basophils % (Manual) 0 % (0-2) Band Neutrophils 0 % (0-8) Platelet Estimate Decreased L Platelet Morphology Normal Hypochromasia 1+ Anisocytosis 1+ Prothrombin Time 11.4 SEC (9.30-11.50) Prothromb Time International Ratio 1.1 (0.9-1.1) Sodium Level 144 MMOL/L (136-145) Potassium Level 4.1 MMOL/L (3.5-5.1) Chloride Level 99 MMOL/L (98-107) Carbon Dioxide Level 39 MMOL/L (21-32) H Anion Gap 6 mmol/L (5-15) Blood Urea Nitrogen 39 mg/dL (7-18) H Creatinine 5.3 MG/DL (0.55-1.30) H Estimat Glomerular Filtration Rate 11.0 mL/min (>60) Glucose Level 88 MG/DL (74-106) Hemoglobin A1c 4.6 % (4.3-6.0) Uric Acid 3.2 MG/DL (2.6-7.2) Calcium Level 8.6 MG/DL (8.5-10.1) Phosphorus Level 5.0 MG/DL (2.5-4.9) H Magnesium Level 1.9 MG/DL (1.8-2.4) Iron Level 36 ug/dL (50-175) L Total Iron Binding Capacity 170 ug/dL (250-450) L Percent Iron Saturation 21 % (15-50) Unsaturated Iron Binding 134 ug/dL (112-346) Ferritin 1330 NG/ML (8-388) H Total Bilirubin 0.8 MG/DL (0.2-1.0) Gamma Glutamyl Transpeptidase 46 U/L (5-85) Aspartate Amino Transf (AST/SGOT) 14 U/L (15-37) L Alanine Aminotransferase (ALT/SGPT) 10 U/L (12-78) L Alkaline Phosphatase 318 U/L (46-116) H Total Creatine Kinase 32 U/L (26-308) Troponin I 0.003 ng/mL (0.000-0.056) Pro-B-Type Natriuretic Peptide 14605 pg/mL (0-125) H Total Protein 8.3 G/DL (6.4-8.2) H Albumin 3.3 G/DL (3.4-5.0) L Globulin 5.0 g/dL Albumin/Globulin Ratio 0.7 (1.0-2.7) L Triglycerides Level 79 MG/DL (30-150) Cholesterol Level 103 MG/DL (< 200) LDL Cholesterol 51 mg/dL (<100) HDL Cholesterol 38 MG/DL (40-60) L Cholesterol/HDL Ratio 2.7 (3.3-4.4) L Vitamin B12 Level 534 PG/ML (193-986) Folate 7.8 NG/ML (8.6-58.9) L Thyroid Stimulating Hormone (TSH) 8.726 uiU/mL (0.358-3.740) Height (Feet): 5 Height (Inches): 7.00 Weight (Pounds): 128 Medications Current Medications Medications (Trade) Dose Ordered Sig/Blessing Route PRN Reason Start Time Stop Time Status Last Admin Dose Admin Acetaminophen (Tylenol) 500 mg 3XW PRN ORAL WITH DIALYSIS 02/02/18 21:00 03/04/18 20:59 02/02/18 21:20 Amlodipine Besylate (Norvasc) 10 mg DAILY ORAL 02/03/18 11:15 03/05/18 11:14 02/03/18 12:36 Chlorhexidine Gluconate (Miriam-Hex 2%) 1 applic DAILY@2000 TOPIC 02/03/18 20:00 03/05/18 19:59 Clonidine HCl (Catapres Tab) 0.1 mg EVERY 8 HOURS ORAL 02/03/18 14:00 03/05/18 13:59 02/03/18 14:44 Clonidine HCl (Catapres Tab) 0.1 mg Q4H PRN ORAL bp over 160 syst 02/02/18 15:45 03/04/18 15:44 02/03/18 05:41 Diphenhydramine HCl (Benadryl) 50 mg Q6H PRN IVP WITH DIALYSIS or ITCHING 02/02/18 21:00 03/04/18 20:59 02/02/18 21:20 Epoetin Alfonzo (Procrit (for non ESRD use)) 5,000 units SUN-SUN-SUN SUBQ 02/04/18 21:00 03/06/18 20:59 Hydralazine HCl (Apresoline) 25 mg FOUR TIMES A DAY ORAL 02/03/18 13:00 03/05/18 12:59 02/03/18 12:36 Iron Sucrose 100 mg/Sodium Chloride 60 ml @ 240 mls/hr TuThSa@2100 IV 02/05/18 21:00 02/16/18 21:14 Morphine Sulfate (Morphine Sulfate) 2 mg Q4H PRN IM For Pain 02/03/18 13:47 02/10/18 13:46 Pantoprazole (Protonix) 40 mg EVERY 12 HOURS ORAL 02/03/18 09:00 03/05/18 08:59 02/03/18 09:02 Assessment/Plan Assessment/Plan (1) Right hip pain (2) Right hip Fracture (3) S/p ORIF of right hip Pt will be discontinued on Morphine and started on Dilaudid 1mg subQ Q4H PRN severe pain. D/w Dr. Childers he concurred. Thank you for the courtesy of this consultation. KANWAL CURRAN Feb 03, 2018 17:54
--- NOTE | 2018-02-03 18:00 | History and Physical Report ---
DATE OF ADMISSION: 02/02/2018 TIME SEEN: 8 a.m. CONSULTANTS: 1. López Ruiz M.D. 2. Tushar Matos M.D. 3. Rahul Lewis M.D. 4. Jony Becker M.D. 5. Jaswant Childers M.D. 6. Rony Corral M.D. CHIEF COMPLAINT: Anemia, hyperkalemia, and agitation. BRIEF HISTORY: This is a 63-year-old male, who lives at [facility], presents to [facility] last night with history of abnormal labs. Hemoglobin down to 7.5. The patient diagnosed with the above and admitted to medical floor telemetry. Slightly anxious in bed, oriented x2, in no acute distress. PAST MEDICAL HISTORY: Include encephalopathy, hypertension, . PAST SURGICAL HISTORY: Right hip one month ago. MEDICATIONS: Include Procrit, Tylenol, diphenhydramine, clonidine, pantoprazole, and famotidine. ALLERGIES: Denies. SOCIAL HISTORY: Positive smoking. No alcohol. No intravenous drug abuse. FAMILY HISTORY: Noncontributory. PHYSICAL EXAMINATION: GENERAL: Calm, slightly anxious in bed, oriented x2, in no acute distress. VITAL SIGNS: Temperature is 98 degrees, pulse 84, respirations 20, blood pressure 190/73. CARDIOVASCULAR: No murmur. LUNGS: Distant and clear. ABDOMEN: Bowel sound positive. Nontender. Nondistended. EXTREMITIES: No cyanosis, clubbing, or edema. NEUROLOGIC: The patient moves all extremities slightly weak. LABORATORY AND DIAGNOSTIC DATA: Show hemoglobin 10.5 and platelets 136,000. Otherwise, CBC is normal. BMP shows CO2 39, BUN and creatinine 39/5.3 and otherwise normal. INR is 1.1. PTT is 31. ASSESSMENT: 1. End-stage renal disease and hyperkalemia. 2. Right hip pain. 3. Anemia. 4. Hypertension. PLAN: 1. Continue premeds. 2. Transfuse p.r.n. 3. Dialysis p.r.n. 4. Blood pressure control. 5. Resume home medications and we will continue to follow. OT/PT dietary evaluation. CBC and BMP in the morning. Lebron Swift D.O. DR: Kathryn JOB#: [id number] CC:
--- NOTE | 2018-02-03 18:30 | Consultation ---
DATE OF CONSULTATION: 02/03/2018 CARDIAC CONSULTATION CONSULTING PHYSICIAN: Jony Becker M.D. REFERRING PHYSICIAN: Lebron Swift D.O. REASON FOR REFERRAL: Hypertension. HISTORY OF PRESENT ILLNESS: This is a middle-aged gentleman with history of multiple medical problems. The patient is a resident of convalescent facility and was noted to have significant anemia. He was transferred to the emergency room at [facility]. He received blood transfusions and noted to have elevated blood pressure. Therefore, this consultation was requested. The patient has no chest pain or pressure. No PND. No orthopnea. Occasional palpitation. Occasional dizziness on standing. No dizziness or lightheadedness. PAST MEDICAL HISTORY: End-stage renal disease, on hemodialysis, hypertension, recent femoral neck fracture for which he was treated, asthma, COPD, polysubstance abuse history years ago, benign prostatic hypertrophy, fluid overload before, GI bleed secondary to AV malformations, may have had cauterization, history of hepatitis C, and history of posttraumatic stress disorder. MEDICATIONS: His medications prior to admission have included clonidine 0.2 twice a day, hydralazine 25 mg 4 times a day, Norvasc 10 mg a day, Toprol-XL 50 mg daily. He is on nicotine patch. He is on Xanax, Ambien, Tylenol, albuterol inhalers. SOCIAL HISTORY: He smokes one pack every two to three days. No alcoholic beverages. Denies any drug use at the present time. He lives in a convalescent facility. REVIEW OF SYSTEMS: GASTROINTESTINAL: Denies any nausea or vomiting. No diarrhea. He has some black stools. GENITOURINARY: He does not make any urine. PULMONARY: Negative. CONSTITUTIONAL: Negative. NEUROLOGICAL: Negative. PHYSICAL EXAMINATION: GENERAL: A middle-aged gentleman, in no respiratory distress. VITAL SIGNS: His blood pressure is anywhere between 167/67 to 206/95, his heart rate is in the 70s, temperature 98.1 degrees. NECK: Supple. No jugular venous distention. LUNGS: Clear to auscultation and percussion except for few crackles noted on the right base. CARDIAC: Regular rhythm. No heaves, thrills, or gallops noted. ABDOMEN: Soft and nontender. Positive bowel sounds. EXTREMITIES: There is no clubbing, cyanosis, or edema. NEUROLOGICAL: He is awake, alert, responsive, in no apparent distress. LABORATORY AND DIAGNOSTIC DATA: White count 5.7, hemoglobin 7.5, and platelet count of 136,000. Sodium 144, potassium 4.1, chloride 99, bicarbonate 39, BUN of 39, creatinine 5.3, and glucose of 88. Iron is 36, there is 21% saturation, ferritin of 1300. Troponin 0.005 and 0.003. ProBNP of 33,000. Total cholesterol of 103, the LDL of 53, HDL of 38. TSH 8.75. B12 534. Folic acid of 7.8, he is on the low side. INR is 1.1 and PTT of 33. His venous duplex study just performed showed an acute thrombus in the distal superficial femoral vein on the left side. ASSESSMENT AND PLAN: 1. Hypertension. 2. End-stage renal disease, on hemodialysis. 3. Anemia. 4. History of GI bleed secondary to AVMs. 5. Acute deep venous thrombosis, left leg. 6. History of femoral neck fracture. Dr. Swift, the patient was seen in cardiac consultation. The patient's blood pressure medication will be adjusted to allow adequate control of his blood pressure. I would like to consider use of BEBETO inhibitors if okay with Nephrology, otherwise his doses of medication for clonidine will be continued as well as his Norvasc, Toprol-XL, and hydralazine as he was getting at home to allow adequate control of blood pressure. Further recommendations regarding deep venous thrombosis on the left side will be left to yourself as well as hog cutter and . Concerned about significant anemia in the setting of recent GI bleed from AV malformation. Do stool studies or GI evaluation to make sure there is no acute bleeding. He does have some black stools indicated and consideration be given to starting him on anticoagulation if safe and to possibly consider IVC filter if anticoagulation is not felt to be safe. Message was left with Dr. Swift. The nursing staff were attempting to contact Dr. Swift regarding the deep venous thrombosis as well. Jony Becker M.D. DR: Sergei JOB#: [id number] CC:
[2018-02-03] MEDS: Dyna-Hex 2% Top Sol 2oz TOPIC SCH (20:00)
--- NOTE | 2018-02-03 23:28 | General Progress Note ---
Assessment/Plan Assessment/Plan IMPRESSION: 1. Anemia of kidney disease. 2. Anemia of iron deficiency. 3. Decreased hemoglobin and hematocrit, rule out GI bleed. 4. Hyperkalemia. 5. Thrombocytopenia. 6. Hypertension. 7. COPD. 8. Posttraumatic stress disorder. 9. BPH. 10. Malnutrition. 11. Failure to thrive. RECOMMENDATIONS: 1. Watch count. 2. Watch coagulopathy. 3. PRBC transfusion p.r.n. basis. 4. Procrit subcutaneous. 5. Iron IV. 6. Hemodialysis p.r.n. basis. 7. Nephrology followup. 8. Cardiology followup. 9. Continue current treatment. 10. Discussed with staff. 11. Skin care. 12. Nutrition. Subjective Date patient seen: Feb 03, 2018 Constitutional: Denies: no symptoms, chills, diaphoresis, fever, malaise, weakness, other HEENT: Denies: no symptoms, eye pain, blurred vision, tearing, double vision, ear pain, ear discharge, nose pain, nose congestion, throat pain, throat swelling, mouth pain, mouth swelling, other Cardiovascular: Denies: no symptoms, chest pain, edema, irregular heart rate, lightheadedness, palpitations, syncope, other Respiratory: Denies: no symptoms, cough, orthopnea, shortness of breath, SOB with excertion, SOB at rest, sputum, stridor, wheezing, other Gastrointestinal/Abdominal: Denies: no symptoms, abdomen distended, abdominal pain, black stools, tarry stools, blood in stool, constipated, diarrhea, difficulty swallowing, nausea, poor appetite, poor fluid intake, rectal bleeding , vomiting, other Genitourinary: Denies: no symptoms, burning, discharge, frequency, flank pain, hematuria, incontinence, pain, urgency, other Neurologic/Psychiatric: Denies: no symptoms, anxiety, depressed, emotional problems, headache, numbness, paresthesia, pre-existing deficit, seizure, tingling, tremors, weakness, other Hematologic/Lymphatic: Reports: anemia Allergies: Coded Allergies: No Known Allergies (Unverified , 02/02/18) Subjective Some muscle aches and sob. Hemoglobin low. Objective Last 24 Hour Vital Signs Date Time Temp Pulse Resp B/P (MAP) Pulse Ox O2 Delivery O2 Flow Rate FiO2 02/03/18 21:49 127/70 02/03/18 18:18 136/85 02/03/18 16:00 98.1 70 20 136/85 94 Room Air 98.1 02/03/18 14:44 177/121 02/03/18 12:36 70 134/68 02/03/18 12:36 134/68 02/03/18 12:00 98.4 70 21 134/68 93 Room Air 98.4 02/03/18 09:02 170/93 02/03/18 08:00 98.1 79 20 170/93 94 Room Air 98.1 02/03/18 05:41 190/73 02/03/18 04:00 98.1 74 20 190/73 88 Room Air 98.1 02/03/18 04:00 79 02/03/18 00:48 Nasal Cannula 2.5 02/03/18 00:47 97.9 69 20 182/81 Nasal Cannula 2.5 97.9 02/03/18 00:00 97.9 68 20 197/87 97 Room Air 97.9 02/03/18 00:00 66 Intake and Output 02/02/18 02/03/18 19:00 07:00 Intake Total 120 ml 150 ml Output Total 2561 ml Balance 120 ml -2411 ml Intake Oral 120 ml 150 ml Output Hemodialysis UF 2561 ml # Voids 3 Laboratory Tests 02/03/18 06:30: White Blood Count 5.7, Red Blood Count 2.43L, Hemoglobin 7.5L, Hematocrit 23.1L , Mean Corpuscular Volume 95, Mean Corpuscular Hemoglobin 30.9, Mean Corpuscular Hemoglobin Concent 32.5, Red Cell Distribution Width 16.6H, Platelet Count 136L, Mean Platelet Volume 5.3L, Neutrophils (%) (Auto) , Lymphocytes (%) (Auto) , Monocytes (%) (Auto) , Eosinophils (%) (Auto) , Basophils (%) (Auto) , Differential Total Cells Counted 100, Neutrophils % ( Manual) 69, Lymphocytes % (Manual) 17L, Monocytes % (Manual) 10, Eosinophils % ( Manual) 4H, Basophils % (Manual) 0, Band Neutrophils 0, Platelet Estimate DecreasedL, Platelet Morphology Normal, Hypochromasia 1+, Anisocytosis 1+, Prothrombin Time 11.4, Prothromb Time International Ratio 1.1, Sodium Level 144 , Potassium Level 4.1, Chloride Level 99, Carbon Dioxide Level 39H, Anion Gap 6 , Blood Urea Nitrogen 39H, Creatinine 5.3H, Estimat Glomerular Filtration Rate 11.0, Glucose Level 88, Hemoglobin A1c 4.6, Uric Acid 3.2, Calcium Level 8.6, Phosphorus Level 5.0H, Magnesium Level 1.9, Iron Level 36L, Total Iron Binding Capacity 170L, Percent Iron Saturation 21, Unsaturated Iron Binding 134, Ferritin 1330H, Total Bilirubin 0.8, Gamma Glutamyl Transpeptidase 46, Aspartate Amino Transf (AST/SGOT) 14L, Alanine Aminotransferase (ALT/SGPT) 10L, Alkaline Phosphatase 318H, Total Creatine Kinase 32, Troponin I 0.003, Pro-B- Type Natriuretic Peptide 26071L, Total Protein 8.3H, Albumin 3.3L, Globulin 5.0 , Albumin/Globulin Ratio 0.7L, Triglycerides Level 79, Cholesterol Level 103, LDL Cholesterol 51, HDL Cholesterol 38L, Cholesterol/HDL Ratio 2.7L, Vitamin B12 Level 534, Folate 7.8L, Thyroid Stimulating Hormone (TSH) 8.726H Height (Feet): 5 Height (Inches): 7.00 Weight (Pounds): 128 General Appearance: no apparent distress EENT: normal ENT inspection Neck: normal alignment, supple Respiratory/Chest: decreased breath sounds Abdomen: non tender, soft LELO BUTLER Feb 03, 2018 23:28
[2018-02-04] VITALS (7 sets, daily range): BP systolic 151–188; BP diastolic 62–91
[2018-02-04] MEDS: Zolpidem 5mg tab ORAL PRN ×2 (00:03→20:27)
--- NOTE | 2018-02-04 00:15 | Consultation ---
DATE OF CONSULTATION: 02/03/2018 GASTROENTEROLOGY CONSULTATION CONSULTING PHYSICIAN: Mee Olmos M.D. REFERRING PHYSICIAN: Lebron Swift D.O. CHIEF COMPLAINT: I was asked to see this patient by Dr. Lebron Swift for evaluation of anemia. HISTORY OF PRESENT ILLNESS: The patient is a 63-year-old white man with history of amyloidosis, who is on long-term dialysis, who comes into the hospital due to anemia. The patient's baseline hematocrit is not available, but he does have renal failure. He recently had a hip surgery. He states that he has had intermittent dark stools for years and has undergone endoscopy and colonoscopy for evaluation, which was negative. Last exam was about a year or so ago in [facility]. He states that something was "cauterized." The patient denies any abdominal pain, nausea, or vomiting. He states he has lost a significant amount of weight over the past year. He states the dark stools occur every few weeks. He has no family history of malignancy. On this admission, a duplex vein has shown thrombosis in the lower extremity. He has had a history of amyloidosis for about three years. His physicians are usually [facility], but he travels back and forth. PAST MEDICAL HISTORY: History of amyloidosis, history of renal failure, and history of hypertension. FAMILY HISTORY: Negative for malignancy. SOCIAL HISTORY: The patient does smoke, but does not drink alcohol. He is single. REVIEW OF SYSTEMS: Otherwise negative. PHYSICAL EXAMINATION: GENERAL: A pleasant white man, seen in his room. HEENT: Normocephalic and atraumatic. Sclerae anicteric. Oropharynx clear. NECK: Supple. CHEST: Clear to auscultation. CARDIOVASCULAR: Regular rhythm and rate. ABDOMEN: Soft. EXTREMITIES: Revealed no edema. LABORATORY DATA: Noted. ASSESSMENT: This patient presents with normocytic anemia of unclear etiology. Probably, this is not worst of it, can be due to renal failure and chronic disease. The patient has chronic renal failure as well as amyloidosis, both of which can increase blood level. His iron panel does not appear particularly impressive. To me, I suspect it is merely anemia of chronic disease and renal failure, which were causing the anemia. In that regard, he is okay to be placed on anticoagulation given his lower extremity thrombosis. He does report dark stools in a few weeks, but it is unclear to me whether this represents blood. I will check the stool occult blood for now, and if he is truly heme positive, then he may require endoscopy and colonoscopy for GI evaluation. RECOMMENDATIONS: Per above discussion and per orders written in the chart. Thank you for asking me to participate in the care of this patient. Mee Olmos M.D. DR: CHAUNCEY JOB#: [id number] CC: SHAKIRA
--- NOTE | 2018-02-04 08:32 | General Progress Note ---
Assessment/Plan Assessment/Plan (1) Right hip pain (2) Right hip Fracture (3) S/p ORIF of right hip Pt will be continued on Dilaudid D/w Dr. Childers he concurred. Subjective Date patient seen: Feb 04, 2018 Time patient seen: 07:30 - am Allergies: Coded Allergies: No Known Allergies (Unverified , 02/02/18) Subjective Constitutional: Reports: no symptoms Eye: Reports: no symptoms ENT: Reports: no symptoms Respiratory: Reports: no symptoms Cardiovascular: Reports: no symptoms Gastrointestinal: Reports: no symptoms Genitourinary: Reports: no symptoms Musculoskeletal: Reports: no symptoms Skin: Reports: no symptoms Psychiatric: Reports: no symptoms Neurological: Reports: no symptoms Endocrine: Reports: no symptoms Hematologic/Lymphatic: Reports: no symptoms Subjective Patient reports that his pain has been at a moderate level. Using the Dilaudid as needed having 3 doses since change from morphine. Objective Last 24 Hour Vital Signs Date Time Temp Pulse Resp B/P (MAP) Pulse Ox O2 Delivery O2 Flow Rate FiO2 02/04/18 08:00 97.1 69 20 164/72 97 Room Air 97.1 02/04/18 05:25 188/84 02/04/18 04:00 97.9 76 20 188/84 100 Room Air 97.9 02/04/18 01:10 167/71 02/04/18 00:00 97.3 77 18 167/71 100 Room Air 97.3 02/03/18 21:49 127/70 02/03/18 20:00 70 22 127/70 100 Room Air 02/03/18 18:18 136/85 02/03/18 16:00 98.1 70 20 136/85 94 Room Air 98.1 02/03/18 14:44 177/121 02/03/18 12:36 70 134/68 02/03/18 12:36 134/68 02/03/18 12:00 98.4 70 21 134/68 93 Room Air 98.4 02/03/18 09:02 170/93 Intake and Output 02/03/18 02/04/18 19:00 07:00 Intake Total 900 ml 800 ml Balance 900 ml 800 ml Intake Oral 900 ml 800 ml # Voids 3 Height (Feet): 5 Height (Inches): 7.00 Weight (Pounds): 128 Objective General Appearance: no apparent distress, alert HEENT: PERRL, EOMI Neck: non-tender, normal alignment, supple, normal inspection Respiratory/Chest: lungs clear, normal breath sounds, no respiratory distress, no accessory muscle use Cardiovascular/Chest: normal rate, regular rhythm Abdomen: non tender, soft, no organomegaly Extremities: inflammation - right hip tenderness to palpation Skin Exam: normal pigmentation, warm/dry Neurologic: alert, oriented x 3 KANWAL CURRAN Feb 04, 2018 08:32
[2018-02-04] MEDS: HydrALAZINE 25mg tab ORAL SCH ×4 (09:49→20:27)
[2018-02-04 10:02] LABS: HEMATOCRIT 20.7 % (42.0-52.0); MEAN CORPUSCULAR VOLUME 95 FL (80-99); PLATELET COUNT 114 K/UL (150-450); RED BLOOD COUNT 2.17 M/UL (4.70-6.10); RED CELL DISTRIBUTION WIDTH 16.8 % (11.6-14.8); WHITE BLOOD COUNT 5.7 K/UL (4.8-10.8)
[2018-02-04 10:10] LABS: HEMOGLOBIN 6.9 G/DL (14.2-18.0)
--- NOTE | 2018-02-04 10:14 | GI Progress Note ---
Assessment/Plan Problems: (1) Abnormal LFTs ICD Codes: R94.5 - Abnormal results of liver function studies SNOMED: 047710884 (2) Symptomatic anemia ICD Codes: D64.9 - Anemia, unspecified SNOMED: 111988746 (3) ESRD (end stage renal disease) on dialysis ICD Codes: N18.6 - End stage renal disease; Z99.2 - Dependence on renal dialysis SNOMED: 287244864 Status: stable Status Narrative Discussed with Dr. Matos. Assessment/Plan hx of EGD/colonoscopy 3 months ago per patient, cannot recall location. iron panel WNL OB stool uncollected monitor H&H, prn transfusions ppi thiamine fu labs will consider endoscopy pending work up. Subjective Subjective denies abdominal pain had EGD/colonoscopy x3 months Objective Last 24 Hour Vital Signs Date Time Temp Pulse Resp B/P (MAP) Pulse Ox O2 Delivery O2 Flow Rate FiO2 02/04/18 09:49 69 164/72 02/04/18 09:49 164/72 02/04/18 08:00 97.1 69 20 164/72 97 Room Air 97.1 02/04/18 05:25 188/84 02/04/18 04:00 97.9 76 20 188/84 100 Room Air 97.9 02/04/18 01:10 167/71 02/04/18 00:00 97.3 77 18 167/71 100 Room Air 97.3 02/03/18 21:49 127/70 02/03/18 20:00 70 22 127/70 100 Room Air 02/03/18 18:18 136/85 02/03/18 16:00 98.1 70 20 136/85 94 Room Air 98.1 02/03/18 14:44 177/121 02/03/18 12:36 70 134/68 02/03/18 12:36 134/68 02/03/18 12:00 98.4 70 21 134/68 93 Room Air 98.4 Intake and Output 02/03/18 02/04/18 19:00 07:00 Intake Total 900 ml 800 ml Balance 900 ml 800 ml Intake Oral 900 ml 800 ml # Voids 3 Laboratory Tests Test 02/04/18 09:00 White Blood Count Pending Red Blood Count Pending Hemoglobin Pending Hematocrit Pending Mean Corpuscular Volume Pending Mean Corpuscular Hemoglobin Pending Mean Corpuscular Hemoglobin Concent Pending Red Cell Distribution Width Pending Platelet Count Pending Mean Platelet Volume Pending Neutrophils (%) (Auto) Pending Lymphocytes (%) (Auto) Pending Monocytes (%) (Auto) Pending Eosinophils (%) (Auto) Pending Basophils (%) (Auto) Pending Sodium Level Pending Potassium Level Pending Chloride Level Pending Carbon Dioxide Level Pending Blood Urea Nitrogen Pending Creatinine Pending Estimat Glomerular Filtration Rate Pending Glucose Level Pending Calcium Level Pending Height (Feet): 5 Height (Inches): 7.00 Weight (Pounds): 128 General Appearance: WD/WN, no apparent distress, alert, thin Cardiovascular: normal rate Respiratory/Chest: normal breath sounds, no respiratory distress Abdominal Exam: normal bowel sounds, non tender, soft Extremities: normal range of motion, non-tender Freya Aldana N.P. Feb 04, 2018 10:14
[2018-02-04 10:39] LABS: ANION GAP 8 mmol/L (5-15); BLOOD UREA NITROGEN 62 mg/dL (7-18); CALCIUM 8.3 MG/DL (8.5-10.1); CARBON DIOXIDE 36 MMOL/L (21-32); CHLORIDE 98 MMOL/L (98-107); CREATININE 7.5 MG/DL (0.55-1.30); POTASSIUM 4.6 MMOL/L (3.5-5.1); SODIUM 142 MMOL/L (136-145)
--- NOTE | 2018-02-04 12:39 | General Progress Note ---
Assessment/Plan Problem List: (1) Acute hyperkalemia ICD Codes: E87.5 - Hyperkalemia SNOMED: 4617994 (2) Abnormal laboratory test result ICD Codes: R89.9 - Unspecified abnormal finding in specimens from other organs , systems and tissues SNOMED: 050980853 (3) ESRD (end stage renal disease) on dialysis ICD Codes: N18.6 - End stage renal disease; Z99.2 - Dependence on renal dialysis SNOMED: 490713207 (4) Hypertension, uncontrolled ICD Codes: I10 - Essential (primary) hypertension SNOMED: 35281337, 60227653 (5) Symptomatic anemia ICD Codes: D64.9 - Anemia, unspecified SNOMED: 778882363 Status: unchanged Assessment/Plan ot pt diet o2 pulm tx gi/heme f/u transfuse cbc bmp am Subjective Constitutional: Reports: weakness Allergies: Coded Allergies: No Known Allergies (Unverified , 02/02/18) All Systems: reviewed and negative except above Subjective calm in bed Objective Last 24 Hour Vital Signs Date Time Temp Pulse Resp B/P (MAP) Pulse Ox O2 Delivery O2 Flow Rate FiO2 02/04/18 09:49 69 164/72 02/04/18 09:49 164/72 02/04/18 08:00 97.1 69 20 164/72 97 Room Air 97.1 02/04/18 05:25 188/84 02/04/18 04:00 97.9 76 20 188/84 100 Room Air 97.9 02/04/18 01:10 167/71 02/04/18 00:00 97.3 77 18 167/71 100 Room Air 97.3 02/03/18 21:49 127/70 02/03/18 20:00 70 22 127/70 100 Room Air 02/03/18 18:18 136/85 02/03/18 16:00 98.1 70 20 136/85 94 Room Air 98.1 02/03/18 14:44 177/121 Intake and Output 02/03/18 02/04/18 19:00 07:00 Intake Total 900 ml 800 ml Balance 900 ml 800 ml Intake Oral 900 ml 800 ml # Voids 3 Laboratory Tests 02/04/18 09:00: White Blood Count 5.7, Red Blood Count 2.17L, Hemoglobin 6.9*L, Hematocrit 20.7L , Mean Corpuscular Volume 95, Mean Corpuscular Hemoglobin 31.6H, Mean Corpuscular Hemoglobin Concent 33.3, Red Cell Distribution Width 16.8H, Platelet Count 114L, Mean Platelet Volume 6.4L, Neutrophils (%) (Auto) , Lymphocytes (%) (Auto) , Monocytes (%) (Auto) , Eosinophils (%) (Auto) , Basophils (%) (Auto) , Differential Total Cells Counted 100, Neutrophils % ( Manual) 76H, Lymphocytes % (Manual) 14L, Monocytes % (Manual) 6, Eosinophils % ( Manual) 4H, Basophils % (Manual) 0, Band Neutrophils 0, Platelet Estimate DecreasedL, Platelet Morphology Normal, Hypochromasia 1+, Anisocytosis 1+, Sodium Level 142, Potassium Level 4.6, Chloride Level 98, Carbon Dioxide Level 36H, Anion Gap 8, Blood Urea Nitrogen 62H, Creatinine 7.5H, Estimat Glomerular Filtration Rate 7.4, Glucose Level 124H, Calcium Level 8.3L Height (Feet): 5 Height (Inches): 7.00 Weight (Pounds): 128 General Appearance: alert EENT: normal ENT inspection Neck: normal alignment Cardiovascular: normal peripheral pulses, normal rate, regular rhythm Respiratory/Chest: chest wall non-tender, lungs clear, normal breath sounds Abdomen: normal bowel sounds, non tender, soft Extremities: normal inspection Edema: no edema noted Arm (L), no edema noted Arm (R), no edema noted Leg (L), no edema noted Leg (R), no edema noted Pedal (L), no edema noted Pedal (R), no edema noted Generalized Neurologic: responsive, motor weakness Skin: normal pigmentation, warm/dry PEDRO HUTSON Feb 04, 2018 12:39
--- NOTE | 2018-02-04 12:40 | General Progress Note ---
Progress Note Progress Note Surgery: asked to see patient to help with venous access. needs meds and transfusion soon. unfortunately PICC line team busy today. Considerations for central venous access. patient on HD with RUE AV graft. poor peripheral access. Was able to identify a good right EJ. placed 20g right EJ line without difficulty. able to aspirate and flush through line. okay to use for now. if needed can consider PICC or central venous access in future if right EJ fails. thank you Niall Cordon Feb 04, 2018 12:40
[2018-02-04] MEDS ORDERED: Tubing Blood Filter IV ONE (13:06)
[2018-02-04] MEDS ORDERED: NS 275ml ONE (13:06)
--- NOTE | 2018-02-04 15:58 | Nephrology Progress Note ---
Assessment/Plan Problem List: (1) Acute hyperkalemia (2) ESRD (end stage renal disease) on dialysis (3) Hypertension, uncontrolled Assessment ESRD, missed dialysis . has high K on admission has fistula right arm Sever Anemia h/o Amyloidosis COPD Plan HD done 02/02 next 02/05 Transfusion in process for 2 units HD in am 02/05 BP control, meds adjusted Subjective ROS Limited/Unobtainable: No Constitutional: Reports: malaise Objective Objective Last 24 Hour Vital Signs Date Time Temp Pulse Resp B/P (MAP) Pulse Ox O2 Delivery O2 Flow Rate FiO2 02/04/18 13:44 151/91 02/04/18 13:44 151/91 02/04/18 12:00 96.8 71 19 151/91 98 Room Air 96.8 02/04/18 09:49 69 164/72 02/04/18 09:49 164/72 02/04/18 08:00 97.1 69 20 164/72 97 Room Air 97.1 02/04/18 05:25 188/84 02/04/18 04:00 97.9 76 20 188/84 100 Room Air 97.9 02/04/18 01:10 167/71 02/04/18 00:00 97.3 77 18 167/71 100 Room Air 97.3 02/03/18 21:49 127/70 02/03/18 20:00 70 22 127/70 100 Room Air 02/03/18 18:18 136/85 02/03/18 16:00 98.1 70 20 136/85 94 Room Air 98.1 Intake and Output 02/03/18 02/04/18 19:00 07:00 Intake Total 900 ml 800 ml Balance 900 ml 800 ml Intake Oral 900 ml 800 ml # Voids 3 Laboratory Tests 02/04/18 09:00: White Blood Count 5.7, Red Blood Count 2.17L, Hemoglobin 6.9*L, Hematocrit 20.7L , Mean Corpuscular Volume 95, Mean Corpuscular Hemoglobin 31.6H, Mean Corpuscular Hemoglobin Concent 33.3, Red Cell Distribution Width 16.8H, Platelet Count 114L, Mean Platelet Volume 6.4L, Neutrophils (%) (Auto) , Lymphocytes (%) (Auto) , Monocytes (%) (Auto) , Eosinophils (%) (Auto) , Basophils (%) (Auto) , Differential Total Cells Counted 100, Neutrophils % ( Manual) 76H, Lymphocytes % (Manual) 14L, Monocytes % (Manual) 6, Eosinophils % ( Manual) 4H, Basophils % (Manual) 0, Band Neutrophils 0, Platelet Estimate DecreasedL, Platelet Morphology Normal, Hypochromasia 1+, Anisocytosis 1+, Sodium Level 142, Potassium Level 4.6, Chloride Level 98, Carbon Dioxide Level 36H, Anion Gap 8, Blood Urea Nitrogen 62H, Creatinine 7.5H, Estimat Glomerular Filtration Rate 7.4, Glucose Level 124H, Calcium Level 8.3L Height (Feet): 5 Height (Inches): 7.00 Weight (Pounds): 128 General Appearance: no apparent distress Cardiovascular: normal rate Respiratory/Chest: lungs clear Abdomen: soft Objective no change DALTON ROSENTHAL Feb 04, 2018 15:58
--- NOTE | 2018-02-04 18:41 | Cardiology Progress Note ---
Assessment/Plan Assessment/Plan 1. Hypertension. 2. End-stage renal disease, on hemodialysis. 3. Anemia. 4. History of GI bleed secondary to AVMs. 5. Acute deep venous thrombosis, left leg. 6. History of femoral neck fracture getting prbc now await ob stool apparently management of dvt per dr zaria meade if ok with renal Subjective Cardiovascular: Denies: chest pain, lightheadedness Respiratory: Denies: shortness of breath, SOB with excertion Gastrointestinal/Abdominal: Denies: abdominal pain Genitourinary: Denies: burning Objective Last 24 Hour Vital Signs Date Time Temp Pulse Resp B/P (MAP) Pulse Ox O2 Delivery O2 Flow Rate FiO2 02/04/18 17:55 153/62 02/04/18 16:00 97.6 71 20 153/62 95 Room Air 97.6 02/04/18 13:44 151/91 02/04/18 13:44 151/91 02/04/18 12:00 96.8 71 19 151/91 98 Room Air 96.8 02/04/18 09:49 69 164/72 02/04/18 09:49 164/72 02/04/18 08:00 97.1 69 20 164/72 97 Room Air 97.1 02/04/18 05:25 188/84 02/04/18 04:00 97.9 76 20 188/84 100 Room Air 97.9 02/04/18 01:10 167/71 02/04/18 00:00 97.3 77 18 167/71 100 Room Air 97.3 02/03/18 21:49 127/70 02/03/18 20:00 70 22 127/70 100 Room Air General Appearance: no apparent distress, alert Neck: supple Cardiovascular: normal rate, regular rhythm Respiratory/Chest: chest wall non-tender, lungs clear, normal breath sounds Abdomen: normal bowel sounds, non tender, soft Extremities: no swelling Intake and Output 02/03/18 02/04/18 19:00 07:00 Intake Total 900 ml 800 ml Balance 900 ml 800 ml Intake Oral 900 ml 800 ml # Voids 3 Laboratory Tests Test 02/04/18 09:00 White Blood Count 5.7 K/UL (4.8-10.8) Red Blood Count 2.17 M/UL (4.70-6.10) L Hemoglobin 6.9 G/DL (14.2-18.0) *L Hematocrit 20.7 % (42.0-52.0) L Mean Corpuscular Volume 95 FL (80-99) Mean Corpuscular Hemoglobin 31.6 PG (27.0-31.0) H Mean Corpuscular Hemoglobin Concent 33.3 G/DL (32.0-36.0) Red Cell Distribution Width 16.8 % (11.6-14.8) H Platelet Count 114 K/UL (150-450) L Mean Platelet Volume 6.4 FL (6.5-10.1) L Neutrophils (%) (Auto) % (45.0-75.0) Lymphocytes (%) (Auto) % (20.0-45.0) Monocytes (%) (Auto) % (1.0-10.0) Eosinophils (%) (Auto) % (0.0-3.0) Basophils (%) (Auto) % (0.0-2.0) Differential Total Cells Counted 100 Neutrophils % (Manual) 76 % (45-75) H Lymphocytes % (Manual) 14 % (20-45) L Monocytes % (Manual) 6 % (1-10) Eosinophils % (Manual) 4 % (0-3) H Basophils % (Manual) 0 % (0-2) Band Neutrophils 0 % (0-8) Platelet Estimate Decreased L Platelet Morphology Normal Hypochromasia 1+ Anisocytosis 1+ Sodium Level 142 MMOL/L (136-145) Potassium Level 4.6 MMOL/L (3.5-5.1) Chloride Level 98 MMOL/L (98-107) Carbon Dioxide Level 36 MMOL/L (21-32) H Anion Gap 8 mmol/L (5-15) Blood Urea Nitrogen 62 mg/dL (7-18) H Creatinine 7.5 MG/DL (0.55-1.30) H Estimat Glomerular Filtration Rate 7.4 mL/min (>60) Glucose Level 124 MG/DL (74-106) H Calcium Level 8.3 MG/DL (8.5-10.1) L Microbiology Date/Time Source Procedure Growth Status 02/02/18 16:05 Nasal Nares MRSA Culture - Final Staphylococcus Aureus - Mrsa Complete JACINTO CORONA Feb 04, 2018 18:41
[2018-02-04] MEDS: Dyna-Hex 2% Top Sol 2oz TOPIC SCH (20:00)
[2018-02-04] MEDS ORDERED: Epogen (for non ESRD use) SUBQ SCH (21:00)
--- NOTE | 2018-02-04 23:44 | General Progress Note ---
Assessment/Plan Assessment/Plan IMPRESSION: 1. Anemia of kidney disease. 2. Anemia of iron deficiency. 3. Decreased hemoglobin and hematocrit, rule out GI bleed. 4. Hyperkalemia. 5. Thrombocytopenia. 6. Hypertension. 7. COPD. 8. Posttraumatic stress disorder. 9. BPH. 10. Malnutrition. 11. Failure to thrive. 12. Hip pain. RECOMMENDATIONS: 1. Watch count. 2. Watch coagulopathy. 3. PRBC transfusion p.r.n. basis. 4. Procrit subcutaneous. 5. Iron IV. 6. Hemodialysis p.r.n. basis. 7. Nephrology followup. 8. Cardiology followup. 9. Continue current treatment. 10. Discussed with staff. 11. Skin care. 12. Nutrition. 13. Pain management. Subjective Date patient seen: Feb 04, 2018 Constitutional: Denies: no symptoms, chills, diaphoresis, fever, malaise, weakness, other HEENT: Denies: no symptoms, eye pain, blurred vision, tearing, double vision, ear pain, ear discharge, nose pain, nose congestion, throat pain, throat swelling, mouth pain, mouth swelling, other Cardiovascular: Denies: no symptoms, chest pain, edema, irregular heart rate, lightheadedness, palpitations, syncope, other Respiratory: Denies: no symptoms, cough, orthopnea, shortness of breath, SOB with excertion, SOB at rest, sputum, stridor, wheezing, other Gastrointestinal/Abdominal: Denies: no symptoms, abdomen distended, abdominal pain, black stools, tarry stools, blood in stool, constipated, diarrhea, difficulty swallowing, nausea, poor appetite, poor fluid intake, rectal bleeding , vomiting, other Genitourinary: Denies: no symptoms, burning, discharge, frequency, flank pain, hematuria, incontinence, pain, urgency, other Neurologic/Psychiatric: Denies: no symptoms, anxiety, depressed, emotional problems, headache, numbness, paresthesia, pre-existing deficit, seizure, tingling, tremors, weakness, other Hematologic/Lymphatic: Reports: anemia Allergies: Coded Allergies: No Known Allergies (Unverified , 02/02/18) Subjective On pain control. Pending blood transfusion. Hypertensive Objective Last 24 Hour Vital Signs Date Time Temp Pulse Resp B/P (MAP) Pulse Ox O2 Delivery O2 Flow Rate FiO2 02/04/18 22:59 97.2 76 20 172/76 95 Room Air 97.2 02/04/18 20:27 164/77 02/04/18 20:26 164/77 02/04/18 20:00 97.2 74 20 164/77 95 Room Air 97.2 02/04/18 17:55 153/62 02/04/18 16:00 97.6 71 20 153/62 95 Room Air 97.6 02/04/18 13:44 151/91 02/04/18 13:44 151/91 02/04/18 12:00 96.8 71 19 151/91 98 Room Air 96.8 02/04/18 09:49 69 164/72 02/04/18 09:49 164/72 02/04/18 08:00 97.1 69 20 164/72 97 Room Air 97.1 02/04/18 05:25 188/84 02/04/18 04:00 97.9 76 20 188/84 100 Room Air 97.9 02/04/18 01:10 167/71 02/04/18 00:00 97.3 77 18 167/71 100 Room Air 97.3 Intake and Output 02/03/18 02/04/18 19:00 07:00 Intake Total 900 ml 800 ml Balance 900 ml 800 ml Intake Oral 900 ml 800 ml # Voids 3 Laboratory Tests 02/04/18 09:00: White Blood Count 5.7, Red Blood Count 2.17L, Hemoglobin 6.9*L, Hematocrit 20.7L , Mean Corpuscular Volume 95, Mean Corpuscular Hemoglobin 31.6H, Mean Corpuscular Hemoglobin Concent 33.3, Red Cell Distribution Width 16.8H, Platelet Count 114L, Mean Platelet Volume 6.4L, Neutrophils (%) (Auto) , Lymphocytes (%) (Auto) , Monocytes (%) (Auto) , Eosinophils (%) (Auto) , Basophils (%) (Auto) , Differential Total Cells Counted 100, Neutrophils % ( Manual) 76H, Lymphocytes % (Manual) 14L, Monocytes % (Manual) 6, Eosinophils % ( Manual) 4H, Basophils % (Manual) 0, Band Neutrophils 0, Platelet Estimate DecreasedL, Platelet Morphology Normal, Hypochromasia 1+, Anisocytosis 1+, Sodium Level 142, Potassium Level 4.6, Chloride Level 98, Carbon Dioxide Level 36H, Anion Gap 8, Blood Urea Nitrogen 62H, Creatinine 7.5H, Estimat Glomerular Filtration Rate 7.4, Glucose Level 124H, Calcium Level 8.3L 02/04/18 19:36: Stool Occult Blood [Pending] Height (Feet): 5 Height (Inches): 7.00 Weight (Pounds): 128 General Appearance: confused Neck: normal alignment Cardiovascular: normal rate, regular rhythm Respiratory/Chest: lungs clear, normal breath sounds LELO BUTLER Feb 04, 2018 23:44
[2018-02-05] VITALS (9 sets, daily range): BP systolic 110–193; BP diastolic 72–96
[2018-02-05] MEDS: DiphenhydrAMINE 50mg/ml Inj IVP PRN (02:48)
[2018-02-05] MEDS ORDERED: Zolpidem 5mg tab ORAL PRN (03:15)
[2018-02-05] MEDS ORDERED: LORazepam 1mg tab ORAL PRN (04:15)
--- NOTE | 2018-02-05 06:15 | Consultation ---
DATE OF CONSULTATION: 02/05/2018 HISTORY OF PRESENT ILLNESS: The patient is a 63-year-old patient with anemia and gastrointestinal bleeding. This is a male patient, who is admitted to the hospital at [facility] due to anemia and gastrointestinal bleeding. The patient agitated, irritable, with confusion. For that reason, psychiatric consultation requested because of his mood lability and high levels of anxiety. As far as patient's psychiatric history, he does have some mood lability, agitation, irritability, and he has high levels of anxiety and thoughts of agitation with full confusion and slightly poor insight into his medical and psychiatric condition. MEDICAL HISTORY: History of hypertension and encephalopathy. ALLERGIES: No known drug allergies. SOCIAL HISTORY: The patient is financially supported by [employer] and Medicare. SUBSTANCE ABUSE HISTORY: No known history of any drug and alcohol use. PSYCHIATRIC HISTORY: Generalized anxiety disorder, rule out depression with psychotic features. SOCIAL HISTORY: Lives in [facility]. Financially supported by [employer] and Medicare. ALLERGIES: The patient has no known drug allergies. STRENGTHS: He is moderately better and has a place to live. WEAKNESSES: He is impulsive. MENTAL STATUS EXAMINATION: This is a 63-year-old male. Appearance is disheveled. Attitude, irritable and agitated. Affect, guarded and restricted. Intellect poor. Mood, depressed and anxious. Motor activity, psychomotor agitation. Attention span is poor. Orientation x2. Speech is low volume and slurred. Thought process, disorganized. Thought content, some paranoid delusions. Memory, 2/3 able to recall, so poor short-term memory. Insight and judgment is poor. DIAGNOSIS: Generalized anxiety disorder, rule out depression with psychotic features. PLAN: My plan for this patient is, I want to treat this patient with a psychotropic medication regimen. I am going to restart this patient's dose of Seroquel 25 mg at bedtime. Restart his original dose that was taken over at [facility]. In addition to that, I am going to add Ativan 1 mg q.6 hours p.r.n. anxiety and agitation and encourage him to interact appropriately with staff and other patients and continue to be followed by Psychiatry throughout his hospital course. Chart is reviewed and discussed with staff. The patient seen and assessed at bedside. Also, 20 minutes of supportive therapy provided. Rony Corral M.D. DR: MERRITT JOB#: [id number] CC:
[2018-02-05] MEDS: HydrALAZINE 25mg tab ORAL SCH ×4 (09:00→21:44)
--- NOTE | 2018-02-05 09:00 | General Progress Note ---
Assessment/Plan Assessment/Plan (1) Right hip pain (2) Right hip Fracture (3) S/p ORIF of right hip Pt will be continued on Dilaudid D/w Dr. Childers he concurred. Subjective Date patient seen: Feb 05, 2018 Time patient seen: 07:45 - am Allergies: Coded Allergies: No Known Allergies (Unverified , 02/02/18) Subjective Constitutional: Reports: no symptoms Eye: Reports: no symptoms ENT: Reports: no symptoms Respiratory: Reports: no symptoms Cardiovascular: Reports: no symptoms Gastrointestinal: Reports: no symptoms Genitourinary: Reports: no symptoms Musculoskeletal: Reports: no symptoms Skin: Reports: no symptoms Psychiatric: Reports: no symptoms Neurological: Reports: no symptoms Endocrine: Reports: no symptoms Hematologic/Lymphatic: Reports: no symptoms Subjective Patient sitting up in pain is at a moderate level controlled on the Dilaudid as needed. He has no new complaints. Objective Last 24 Hour Vital Signs Date Time Temp Pulse Resp B/P (MAP) Pulse Ox O2 Delivery O2 Flow Rate FiO2 02/05/18 06:22 159/72 02/05/18 04:00 97.7 61 18 159/72 97 Room Air 97.7 02/05/18 00:00 97.2 75 20 164/77 100 Room Air 97.2 02/04/18 22:59 97.2 76 20 172/76 95 Room Air 97.2 02/04/18 20:27 164/77 02/04/18 20:26 164/77 02/04/18 20:00 97.2 74 20 164/77 95 Room Air 97.2 02/04/18 17:55 153/62 02/04/18 16:00 97.6 71 20 153/62 95 Room Air 97.6 02/04/18 13:44 151/91 02/04/18 13:44 151/91 02/04/18 12:00 96.8 71 19 151/91 98 Room Air 96.8 02/04/18 09:49 69 164/72 02/04/18 09:49 164/72 Intake and Output 02/04/18 02/05/18 19:00 07:00 Intake Total 550 ml Balance 550 ml Intake Oral 550 ml # Voids 3 3 Laboratory Tests 02/04/18 19:36: Stool Occult Blood Negative 02/05/18 07:50: White Blood Count [Pending], Red Blood Count [Pending], Hemoglobin [Pending], Hematocrit [Pending], Mean Corpuscular Volume [Pending], Mean Corpuscular Hemoglobin [Pending], Mean Corpuscular Hemoglobin Concent [Pending], Red Cell Distribution Width [Pending], Platelet Count [Pending], Mean Platelet Volume [ Pending], Neutrophils (%) (Auto) [Pending], Lymphocytes (%) (Auto) [Pending], Monocytes (%) (Auto) [Pending], Eosinophils (%) (Auto) [Pending], Basophils (%) (Auto) [Pending], Sodium Level [Pending], Potassium Level [Pending], Chloride Level [Pending], Carbon Dioxide Level [Pending], Blood Urea Nitrogen [Pending], Creatinine [Pending], Estimat Glomerular Filtration Rate [Pending], Glucose Level [Pending], Calcium Level [Pending] Height (Feet): 5 Height (Inches): 7.00 Weight (Pounds): 128 Objective General Appearance: no apparent distress, alert HEENT: PERRL, EOMI Neck: non-tender, normal alignment, supple, normal inspection Respiratory/Chest: lungs clear, normal breath sounds, no respiratory distress, no accessory muscle use Cardiovascular/Chest: normal rate, regular rhythm Abdomen: non tender, soft, no organomegaly Extremities: inflammation - right hip tenderness to palpation Skin Exam: normal pigmentation, warm/dry Neurologic: alert, oriented x 3 KANWAL CURRAN Feb 05, 2018 09:00
[2018-02-05 09:12] LABS: BASOPHILS % (AUTO) 1.1 % (0.0-2.0); EOSINOPHILS % (AUTO) 4.9 % (0.0-3.0); HEMATOCRIT 28.2 % (42.0-52.0); HEMOGLOBIN 9.7 G/DL (14.2-18.0); LYMPHOCYTES % (AUTO) 15.5 % (20.0-45.0); MEAN CORPUSCULAR VOLUME 92 FL (80-99); MONOCYTES % (AUTO) 5.6 % (1.0-10.0); PLATELET COUNT 110 K/UL (150-450); RED BLOOD COUNT 3.06 M/UL (4.70-6.10); WHITE BLOOD COUNT 5.3 K/UL (4.8-10.8)
[2018-02-05 09:20] LABS: ANION GAP 12 mmol/L (5-15); BLOOD UREA NITROGEN 82 mg/dL (7-18); CALCIUM 8.6 MG/DL (8.5-10.1); CARBON DIOXIDE 31 MMOL/L (21-32); CHLORIDE 99 MMOL/L (98-107); CREATININE 8.9 MG/DL (0.55-1.30); POTASSIUM 5.5 MMOL/L (3.5-5.1); SODIUM 142 MMOL/L (136-145)
--- NOTE | 2018-02-05 11:53 | Nephrology Progress Note ---
Assessment/Plan Problem List: (1) Acute hyperkalemia (2) ESRD (end stage renal disease) on dialysis (3) Hypertension, uncontrolled Assessment ESRD, missed dialysis . has high K on admission has fistula right arm Sever Anemia h/o Amyloidosis COPD Plan HD done 02/02 next 02/05 Transfusion in process for 2 units HD in am 02/05 BP control, meds adjusted DC post Subjective ROS Limited/Unobtainable: No Constitutional: Reports: other - agitated Objective Objective Last 24 Hour Vital Signs Date Time Temp Pulse Resp B/P (MAP) Pulse Ox O2 Delivery O2 Flow Rate FiO2 02/05/18 09:00 62 110/77 02/05/18 09:00 110/77 02/05/18 08:00 97.7 62 18 110/77 97 Room Air 2.5 32 97.7 02/05/18 06:22 159/72 02/05/18 04:00 97.7 61 18 159/72 97 Room Air 97.7 02/05/18 00:00 97.2 75 20 164/77 100 Room Air 97.2 02/04/18 22:59 97.2 76 20 172/76 95 Room Air 97.2 02/04/18 20:27 164/77 02/04/18 20:26 164/77 02/04/18 20:00 97.2 74 20 164/77 95 Room Air 97.2 02/04/18 17:55 153/62 02/04/18 16:00 97.6 71 20 153/62 95 Room Air 97.6 02/04/18 13:44 151/91 02/04/18 13:44 151/91 02/04/18 12:00 96.8 71 19 151/91 98 Room Air 96.8 Intake and Output 02/04/18 02/05/18 19:00 07:00 Intake Total 550 ml Balance 550 ml Intake Oral 550 ml # Voids 3 3 Laboratory Tests 02/04/18 19:36: Stool Occult Blood Negative 02/05/18 07:50: White Blood Count 5.3, Red Blood Count 3.06L, Hemoglobin 9.7#L, Hematocrit 28.2# L, Mean Corpuscular Volume 92, Mean Corpuscular Hemoglobin 31.7H, Mean Corpuscular Hemoglobin Concent 34.4, Red Cell Distribution Width 16.0H, Platelet Count 110L, Mean Platelet Volume 5.8L, Neutrophils (%) (Auto) 73.0, Lymphocytes (%) (Auto) 15.5L, Monocytes (%) (Auto) 5.6, Eosinophils (%) (Auto) 4.9H, Basophils (%) (Auto) 1.1, Sodium Level 142, Potassium Level 5.5H, Chloride Level 99, Carbon Dioxide Level 31, Anion Gap 12, Blood Urea Nitrogen 82H, Creatinine 8.9H, Estimat Glomerular Filtration Rate 6.0, Glucose Level 113H , Calcium Level 8.6 Height (Feet): 5 Height (Inches): 7.00 Weight (Pounds): 128 General Appearance: no apparent distress Cardiovascular: regular rhythm Respiratory/Chest: lungs clear Abdomen: soft Objective no change DALTON ROSENTHAL Feb 05, 2018 11:53
--- NOTE | 2018-02-05 13:16 | Cardiology Report ---
APPROVED REPORT EXAM: Two-dimensional and M-mode echocardiogram with Doppler and color Doppler. INDICATION Congestive Heart Failure M-Mode DIMENSIONS IVSd1.2 (0.7-1.1cm)Left Atrium (MM)4.6 (1.6-4.0cm) LVDd4.5 (3.5-5.6cm)Aortic Root3.1 (2.0-3.7cm) PWd1.3 (0.7-1.1cm)Aortic Cusp Exc.1.7 (1.5-2.0cm) LVDs2.7 (2.5-4.0cm) PWs1.0 cm Normal left ventricular chamber size, systolic function and wall motion. Left ventricular ejection fraction estimated to be 60-65 %. No evidence of left ventricular hypertrophy. No evidence of pericardial or pleural effusion. Moderate left atrial enlargement by 2D. Mild right atrial enlargement by 2D. Focal aortic valve sclerosis with adequate cusp excursion. Thickened mitral valve leaflets with normal excursion. Mild mitral annulus and aortic root calcification. Mitral stenosis. Pulmonic valve not well visualized. Normal tricuspid valve structure. IVC dilated at 2.6cm non-collapsible with respiration indicate increased RA pressure. A color flow and spectral Doppler study was performed and revealed: Mild aortic regurgitation. Moderate mitral regurgitation. Mitral valve MG 4, PG 11 mmhg Normal mitral diastolic function. Mild tricuspid regurgitation. Tricuspid systolic velocities suggests peak right ventricular systolic pressure of 46 mmHg Consistent with moderate pulmonary hypertension. Pulmonic regurgitation present.
--- NOTE | 2018-02-05 13:53 | General Progress Note ---
Assessment/Plan Problem List: (1) Abnormal laboratory test result ICD Codes: R89.9 - Unspecified abnormal finding in specimens from other organs , systems and tissues SNOMED: 835115720 (2) ESRD (end stage renal disease) on dialysis ICD Codes: N18.6 - End stage renal disease; Z99.2 - Dependence on renal dialysis SNOMED: 149567793 (3) Hypertension, uncontrolled ICD Codes: I10 - Essential (primary) hypertension SNOMED: 73189084, 35601978 (4) Symptomatic anemia ICD Codes: D64.9 - Anemia, unspecified SNOMED: 959659825 (5) Acute hyperkalemia ICD Codes: E87.5 - Hyperkalemia SNOMED: 3512018 (6) DVT (deep venous thrombosis) ICD Codes: I82.409 - Acute embolism and thrombosis of unspecified deep veins of unspecified lower extremity SNOMED: 452041230 Status: stable, progressing, tolerating diet Assessment/Plan ot pt diet o2 pulm tx gi/heme f/u anticoag cbc bmp am ltach eval Subjective Constitutional: Reports: weakness Allergies: Coded Allergies: No Known Allergies (Unverified , 02/02/18) All Systems: reviewed and negative except above Subjective calm in bed Objective Last 24 Hour Vital Signs Date Time Temp Pulse Resp B/P (MAP) Pulse Ox O2 Delivery O2 Flow Rate FiO2 02/05/18 13:46 145/82 02/05/18 13:00 145/82 02/05/18 09:00 62 110/77 02/05/18 09:00 110/77 02/05/18 08:00 97.7 62 18 110/77 97 Room Air 2.5 32 97.7 02/05/18 06:22 159/72 02/05/18 04:00 97.7 61 18 159/72 97 Room Air 97.7 02/05/18 00:00 97.2 75 20 164/77 100 Room Air 97.2 02/04/18 22:59 97.2 76 20 172/76 95 Room Air 97.2 02/04/18 20:27 164/77 02/04/18 20:26 164/77 02/04/18 20:00 97.2 74 20 164/77 95 Room Air 97.2 02/04/18 17:55 153/62 02/04/18 16:00 97.6 71 20 153/62 95 Room Air 97.6 Intake and Output 02/04/18 02/05/18 19:00 07:00 Intake Total 550 ml Balance 550 ml Intake Oral 550 ml # Voids 3 3 Laboratory Tests 02/04/18 19:36: Stool Occult Blood Negative 02/05/18 07:50: White Blood Count 5.3, Red Blood Count 3.06L, Hemoglobin 9.7#L, Hematocrit 28.2# L, Mean Corpuscular Volume 92, Mean Corpuscular Hemoglobin 31.7H, Mean Corpuscular Hemoglobin Concent 34.4, Red Cell Distribution Width 16.0H, Platelet Count 110L, Mean Platelet Volume 5.8L, Neutrophils (%) (Auto) 73.0, Lymphocytes (%) (Auto) 15.5L, Monocytes (%) (Auto) 5.6, Eosinophils (%) (Auto) 4.9H, Basophils (%) (Auto) 1.1, Sodium Level 142, Potassium Level 5.5H, Chloride Level 99, Carbon Dioxide Level 31, Anion Gap 12, Blood Urea Nitrogen 82H, Creatinine 8.9H, Estimat Glomerular Filtration Rate 6.0, Glucose Level 113H , Calcium Level 8.6 Height (Feet): 5 Height (Inches): 7.00 Weight (Pounds): 128 General Appearance: alert EENT: normal ENT inspection Neck: normal alignment Cardiovascular: normal peripheral pulses, normal rate, regular rhythm Respiratory/Chest: chest wall non-tender, lungs clear, normal breath sounds Abdomen: normal bowel sounds, non tender, soft Extremities: normal inspection Edema: no edema noted Arm (L), no edema noted Arm (R), no edema noted Leg (L), no edema noted Leg (R), no edema noted Pedal (L), no edema noted Pedal (R), no edema noted Generalized Neurologic: responsive, motor weakness Skin: normal pigmentation, warm/dry PEDRO HUTSON Feb 05, 2018 13:53
--- NOTE | 2018-02-05 14:11 | GI Progress Note ---
Assessment/Plan Problems: (1) Abnormal LFTs ICD Codes: R94.5 - Abnormal results of liver function studies SNOMED: 913936657 (2) Symptomatic anemia ICD Codes: D64.9 - Anemia, unspecified SNOMED: 656077352 (3) ESRD (end stage renal disease) on dialysis ICD Codes: N18.6 - End stage renal disease; Z99.2 - Dependence on renal dialysis SNOMED: 303203327 Status: stable Status Narrative Discussed with Dr. Matos. Assessment/Plan hx of EGD/colonoscopy 3 months ago per patient, cannot recall location. iron panel WNL OB stool negative monitor H&H, prn transfusions ppi thiamine fu labs outpatient GI procedures Subjective Subjective denies abdominal pain had EGD/colonoscopy x3 months Objective Last 24 Hour Vital Signs Date Time Temp Pulse Resp B/P (MAP) Pulse Ox O2 Delivery O2 Flow Rate FiO2 02/05/18 13:46 145/82 02/05/18 13:00 145/82 02/05/18 12:00 97.7 72 18 145/82 97 Room Air 2.5 32 97.7 02/05/18 09:00 62 110/77 02/05/18 09:00 110/77 02/05/18 08:00 97.7 62 18 110/77 97 Room Air 2.5 32 97.7 02/05/18 06:22 159/72 02/05/18 04:00 97.7 61 18 159/72 97 Room Air 97.7 02/05/18 00:00 97.2 75 20 164/77 100 Room Air 97.2 02/04/18 22:59 97.2 76 20 172/76 95 Room Air 97.2 02/04/18 20:27 164/77 02/04/18 20:26 164/77 02/04/18 20:00 97.2 74 20 164/77 95 Room Air 97.2 02/04/18 17:55 153/62 02/04/18 16:00 97.6 71 20 153/62 95 Room Air 97.6 Intake and Output 02/04/18 02/05/18 19:00 07:00 Intake Total 550 ml Balance 550 ml Intake Oral 550 ml # Voids 3 3 Laboratory Tests Test 02/04/18 19:36 02/05/18 07:50 Stool Occult Blood Negative (NEGATIVE) White Blood Count 5.3 K/UL (4.8-10.8) Red Blood Count 3.06 M/UL (4.70-6.10) L Hemoglobin 9.7 G/DL (14.2-18.0) #L Hematocrit 28.2 % (42.0-52.0) #L Mean Corpuscular Volume 92 FL (80-99) Mean Corpuscular Hemoglobin 31.7 PG (27.0-31.0) H Mean Corpuscular Hemoglobin Concent 34.4 G/DL (32.0-36.0) Red Cell Distribution Width 16.0 % (11.6-14.8) H Platelet Count 110 K/UL (150-450) L Mean Platelet Volume 5.8 FL (6.5-10.1) L Neutrophils (%) (Auto) 73.0 % (45.0-75.0) Lymphocytes (%) (Auto) 15.5 % (20.0-45.0) L Monocytes (%) (Auto) 5.6 % (1.0-10.0) Eosinophils (%) (Auto) 4.9 % (0.0-3.0) H Basophils (%) (Auto) 1.1 % (0.0-2.0) Sodium Level 142 MMOL/L (136-145) Potassium Level 5.5 MMOL/L (3.5-5.1) H Chloride Level 99 MMOL/L (98-107) Carbon Dioxide Level 31 MMOL/L (21-32) Anion Gap 12 mmol/L (5-15) Blood Urea Nitrogen 82 mg/dL (7-18) H Creatinine 8.9 MG/DL (0.55-1.30) H Estimat Glomerular Filtration Rate 6.0 mL/min (>60) Glucose Level 113 MG/DL (74-106) H Calcium Level 8.6 MG/DL (8.5-10.1) Height (Feet): 5 Height (Inches): 7.00 Weight (Pounds): 128 General Appearance: WD/WN, no apparent distress, alert Cardiovascular: normal rate Respiratory/Chest: normal breath sounds, no respiratory distress Abdominal Exam: normal bowel sounds, non tender, soft Extremities: normal range of motion, non-tender Freya Aldana N.P. Feb 05, 2018 14:11
[2018-02-05 17:49] LABS: HEMATOCRIT 24.5 % (42.0-52.0); HEMOGLOBIN 8.3 G/DL (14.2-18.0); MEAN CORPUSCULAR VOLUME 90 FL (80-99); PLATELET COUNT 97 K/UL (150-450); RED BLOOD COUNT 2.72 M/UL (4.70-6.10); WHITE BLOOD COUNT 4.7 K/UL (4.8-10.8)
[2018-02-05 17:53] LABS: BASOPHILS % (AUTO) 0.6 % (0.0-2.0); EOSINOPHILS % (AUTO) 3.2 % (0.0-3.0); LYMPHOCYTES % (AUTO) 16.3 % (20.0-45.0); NEUTROPHILS % (AUTO) 76.9 % (45.0-75.0)
[2018-02-05] MEDS ORDERED: Iron Sucrose 100 MG in NS 55 ML IV SCH (21:00)
--- NOTE | 2018-02-05 23:48 | General Progress Note ---
Assessment/Plan Assessment/Plan IMPRESSION: 1. Anemia of kidney disease. 2. Anemia of iron deficiency. 3. Decreased hemoglobin and hematocrit, rule out GI bleed. 4. Hyperkalemia. 5. Thrombocytopenia. 6. Hypertension. 7. COPD. 8. Posttraumatic stress disorder. 9. BPH. 10. Malnutrition. 11. Failure to thrive. 12. Hip pain. RECOMMENDATIONS: 1. Watch count. 2. Watch coagulopathy. 3. PRBC transfusion p.r.n. basis. 4. Procrit subcutaneous. 5. Iron IV. 6. Hemodialysis p.r.n. basis. 7. Nephrology followup. 8. Cardiology followup. 9. Continue current treatment. 10. Discussed with staff. 11. Skin care. 12. Nutrition. 13. Pain management. Subjective Date patient seen: Feb 05, 2018 Constitutional: Denies: no symptoms, chills, diaphoresis, fever, malaise, weakness, other HEENT: Denies: no symptoms, eye pain, blurred vision, tearing, double vision, ear pain, ear discharge, nose pain, nose congestion, throat pain, throat swelling, mouth pain, mouth swelling, other Cardiovascular: Denies: no symptoms, chest pain, edema, irregular heart rate, lightheadedness, palpitations, syncope, other Respiratory: Denies: no symptoms, cough, orthopnea, shortness of breath, SOB with excertion, SOB at rest, sputum, stridor, wheezing, other Gastrointestinal/Abdominal: Denies: no symptoms, abdomen distended, abdominal pain, black stools, tarry stools, blood in stool, constipated, diarrhea, difficulty swallowing, nausea, poor appetite, poor fluid intake, rectal bleeding , vomiting, other Genitourinary: Denies: no symptoms, burning, discharge, frequency, flank pain, hematuria, incontinence, pain, urgency, other Neurologic/Psychiatric: Denies: no symptoms, anxiety, depressed, emotional problems, headache, numbness, paresthesia, pre-existing deficit, seizure, tingling, tremors, weakness, other Hematologic/Lymphatic: Reports: anemia Allergies: Coded Allergies: No Known Allergies (Unverified , 02/02/18) Subjective On pain control. S/P blood transfusion. Remains hypertensive today. Objective Last 24 Hour Vital Signs Date Time Temp Pulse Resp B/P (MAP) Pulse Ox O2 Delivery O2 Flow Rate FiO2 02/05/18 21:45 180/74 02/05/18 21:44 180/74 02/05/18 17:48 158/75 02/05/18 17:43 Room Air 02/05/18 17:42 97.5 72 20 193/96 Room Air 97.5 02/05/18 16:00 97.3 74 20 158/75 97 Nasal Cannula 3.0 32 97.3 02/05/18 13:46 145/82 02/05/18 13:30 97.3 74 20 161/83 Nasal Cannula 3.0 97.3 02/05/18 13:00 145/82 02/05/18 12:00 97.7 72 18 145/82 97 Room Air 2.5 32 97.7 02/05/18 09:00 62 110/77 02/05/18 09:00 110/77 02/05/18 08:00 97.7 62 18 110/77 97 Room Air 2.5 32 97.7 02/05/18 06:22 159/72 02/05/18 04:00 97.7 61 18 159/72 97 Room Air 97.7 02/05/18 00:00 97.2 75 20 164/77 100 Room Air 97.2 Intake and Output 02/04/18 02/05/18 19:00 07:00 Intake Total 550 ml Balance 550 ml Intake Oral 550 ml # Voids 3 3 Laboratory Tests 02/05/18 07:50: White Blood Count 5.3, Red Blood Count 3.06L, Hemoglobin 9.7#L, Hematocrit 28.2# L, Mean Corpuscular Volume 92, Mean Corpuscular Hemoglobin 31.7H, Mean Corpuscular Hemoglobin Concent 34.4, Red Cell Distribution Width 16.0H, Platelet Count 110L, Mean Platelet Volume 5.8L, Neutrophils (%) (Auto) 73.0, Lymphocytes (%) (Auto) 15.5L, Monocytes (%) (Auto) 5.6, Eosinophils (%) (Auto) 4.9H, Basophils (%) (Auto) 1.1, Sodium Level 142, Potassium Level 5.5H, Chloride Level 99, Carbon Dioxide Level 31, Anion Gap 12, Blood Urea Nitrogen 82H, Creatinine 8.9H, Estimat Glomerular Filtration Rate 6.0, Glucose Level 113H , Calcium Level 8.6 02/05/18 17:15: White Blood Count 4.7L, Red Blood Count 2.72L, Hemoglobin 8.3L, Hematocrit 24.5L , Mean Corpuscular Volume 90, Mean Corpuscular Hemoglobin 30.5, Mean Corpuscular Hemoglobin Concent 33.8, Red Cell Distribution Width 16.0H, Platelet Count 97L, Mean Platelet Volume 6.0L, Neutrophils (%) (Auto) 76.9H, Lymphocytes (%) (Auto) 16.3L, Monocytes (%) (Auto) 3.0, Eosinophils (%) (Auto) 3.2H, Basophils (%) (Auto) 0.6 Height (Feet): 5 Height (Inches): 7.00 Weight (Pounds): 128 General Appearance: confused Neck: normal alignment Respiratory/Chest: decreased breath sounds Abdomen: non tender, soft Edema: trace edema LELO BUTLER Feb 05, 2018 23:48
[2018-02-06] VITALS (15 sets, daily range): BP systolic 130–168; BP diastolic 48–87
[2018-02-06 02:45] LABS: BASOPHILS % (AUTO) 1.1 % (0.0-2.0); EOSINOPHILS % (AUTO) 3.6 % (0.0-3.0); HEMATOCRIT 23.7 % (42.0-52.0); LYMPHOCYTES % (AUTO) 17.2 % (20.0-45.0); MEAN CORPUSCULAR VOLUME 92 FL (80-99); MONOCYTES % (AUTO) 8.7 % (1.0-10.0); NEUTROPHILS % (AUTO) 69.4 % (45.0-75.0); PLATELET COUNT 105 K/UL (150-450); RED BLOOD COUNT 2.59 M/UL (4.70-6.10); RED CELL DISTRIBUTION WIDTH 15.8 % (11.6-14.8); WHITE BLOOD COUNT 5.7 K/UL (4.8-10.8)
[2018-02-06 02:52] LABS: ANION GAP 7 mmol/L (5-15); BLOOD UREA NITROGEN 73 mg/dL (7-18); CALCIUM 8.2 MG/DL (8.5-10.1); CARBON DIOXIDE 34 MMOL/L (21-32); CHLORIDE 100 MMOL/L (98-107); CREATININE 7.2 MG/DL (0.55-1.30); POTASSIUM 5.5 MMOL/L (3.5-5.1); SODIUM 141 MMOL/L (136-145)
[2018-02-06] MEDS: HydrALAZINE 25mg tab ORAL SCH ×4 (08:15→20:42)
[2018-02-06 08:18] LABS: EOSINOPHILS % (AUTO) 3.5 % (0.0-3.0); HEMATOCRIT 26.6 % (42.0-52.0); HEMOGLOBIN 9.1 G/DL (14.2-18.0); LYMPHOCYTES % (AUTO) 15.7 % (20.0-45.0); MEAN CORPUSCULAR VOLUME 94 FL (80-99); MONOCYTES % (AUTO) 7.7 % (1.0-10.0); NEUTROPHILS % (AUTO) 72.2 % (45.0-75.0); PLATELET COUNT 121 K/UL (150-450); RED BLOOD COUNT 2.84 M/UL (4.70-6.10); RED CELL DISTRIBUTION WIDTH 16.5 % (11.6-14.8); WHITE BLOOD COUNT 7.8 K/UL (4.8-10.8)
[2018-02-06] MEDS ORDERED: Sodium Polystyrene Sulfonate 15gm Powder ORAL ONE (09:00)
--- NOTE | 2018-02-06 09:31 | Nephrology Progress Note ---
Assessment/Plan Problem List: (1) Acute hyperkalemia (2) ESRD (end stage renal disease) on dialysis (3) Hypertension, uncontrolled (4) Left leg DVT Assessment ESRD, missed dialysis . has high K on admission has fistula right arm Sever Anemia h/o Amyloidosis COPD Plan HD done 02/02 next 02/05 Transfused Kayexelate as needed BP control, meds adjusted DC planning ? IVC for left leg Subjective ROS Limited/Unobtainable: No Constitutional: Reports: malaise, weakness Objective Objective Last 24 Hour Vital Signs Date Time Temp Pulse Resp B/P (MAP) Pulse Ox O2 Delivery O2 Flow Rate FiO2 02/06/18 08:15 71 168/94 02/06/18 08:15 168/94 02/06/18 05:17 168/90 02/06/18 04:00 98.1 72 18 156/83 92 Room Air 98.1 02/06/18 04:00 0 02/06/18 00:00 88 02/06/18 00:00 98.1 72 18 130/72 95 Room Air 98.1 02/05/18 22:15 76 151/75 02/05/18 21:45 180/74 02/05/18 21:44 180/74 02/05/18 20:00 97.0 87 20 180/74 95 Room Air 97.0 02/05/18 17:48 158/75 02/05/18 17:43 Room Air 02/05/18 17:42 97.5 72 20 193/96 Room Air 97.5 02/05/18 16:00 97.3 74 20 158/75 97 Nasal Cannula 3.0 32 97.3 02/05/18 13:46 145/82 02/05/18 13:30 97.3 74 20 161/83 Nasal Cannula 3.0 97.3 02/05/18 13:00 145/82 02/05/18 12:00 97.7 72 18 145/82 97 Room Air 2.5 32 97.7 Intake and Output 02/05/18 02/06/18 19:00 07:00 Intake Total 360 ml 480 ml Output Total 2500 ml Balance -2140 ml 480 ml Intake Oral 360 ml 480 ml Output Hemodialysis UF 2500 ml Laboratory Tests 02/05/18 17:15: White Blood Count 4.7L, Red Blood Count 2.72L, Hemoglobin 8.3L, Hematocrit 24.5L , Mean Corpuscular Volume 90, Mean Corpuscular Hemoglobin 30.5, Mean Corpuscular Hemoglobin Concent 33.8, Red Cell Distribution Width 16.0H, Platelet Count 97L, Mean Platelet Volume 6.0L, Neutrophils (%) (Auto) 76.9H, Lymphocytes (%) (Auto) 16.3L, Monocytes (%) (Auto) 3.0, Eosinophils (%) (Auto) 3.2H, Basophils (%) (Auto) 0.6 02/06/18 02:00: White Blood Count 5.7, Red Blood Count 2.59L, Hemoglobin 8.0L, Hematocrit 23.7L , Mean Corpuscular Volume 92, Mean Corpuscular Hemoglobin 30.9, Mean Corpuscular Hemoglobin Concent 33.7, Red Cell Distribution Width 15.8H, Platelet Count 105L, Mean Platelet Volume 5.8L, Neutrophils (%) (Auto) 69.4, Lymphocytes (%) (Auto) 17.2L, Monocytes (%) (Auto) 8.7, Eosinophils (%) (Auto) 3.6H, Basophils (%) (Auto) 1.1, Sodium Level 141, Potassium Level 5.5H, Chloride Level 100, Carbon Dioxide Level 34H, Anion Gap 7, Blood Urea Nitrogen 73H, Creatinine 7.2H, Estimat Glomerular Filtration Rate 7.7, Glucose Level 97, Calcium Level 8.2L 02/06/18 08:00: White Blood Count 7.8, Red Blood Count 2.84L, Hemoglobin 9.1L, Hematocrit 26.6L , Mean Corpuscular Volume 94, Mean Corpuscular Hemoglobin 32.0H, Mean Corpuscular Hemoglobin Concent 34.1, Red Cell Distribution Width 16.5H, Platelet Count 121L, Mean Platelet Volume 6.1L, Neutrophils (%) (Auto) 72.2, Lymphocytes (%) (Auto) 15.7L, Monocytes (%) (Auto) 7.7, Eosinophils (%) (Auto) 3.5H, Basophils (%) (Auto) 1.0 Height (Feet): 5 Height (Inches): 7.00 Weight (Pounds): 128 General Appearance: no apparent distress, lethargic, other - sedated Respiratory/Chest: decreased breath sounds Abdomen: soft Objective no change DALTON ROSENTHAL Feb 06, 2018 09:31
--- NOTE | 2018-02-06 10:56 | Consultation ---
History of Present Illness General Date patient seen: Feb 06, 2018 Chief Complaint: Abnormal Labs Referring physician: Dr. Fritz Reason for Consultation: dypsnea Present Illness HPI 63 year old male with hx of ESRF, COPD presented to emergency department on with CC of anemia. Patient apparently had a hip fracture recently and is been recuperating at the convalescent home. His hemoglobin reportedly was 6.8. He was admitted to telemetry, received 2 units of PRBC. this morning he desaturated. His Pulse oximeter was 80 on 2 liters. I was asked to evaluate his sudden drop in oxygenation. He was awake and oriented earlier this morning. currently resting comfortably. Allergies: Coded Allergies: No Known Allergies (Unverified , 02/02/18) Medication History Scheduled Albuterol Sulfate* (Proair Hfa*), 2 PUFF INH EVERY 4 HOURS, (Reported) Amlodipine Besylate* (Amlodipine Besylate*), 10 MG ORAL DAILY, (Reported) Bisacodyl (Bisacodyl), 10 MG RC BID, (Reported) Clonidine Hcl* (Catapres*), 0.2 MG ORAL BID, (Reported) Darbepoetin Alfonzo In Polysorbat (Aranesp), 100 MCG SUBQ ONCE A WEEK, (Reported) Docusate Sodium* (Docusate Sodium*), 100 MG ORAL TWICE A DAY, (Reported) Hydralazine Hcl* (Hydralazine Hcl*), 25 MG ORAL FOUR TIMES A DAY, (Reported) Metoprolol Tartrate* (Metoprolol Tartrate*), 50 MG ORAL DAILY, (Reported) Nicotine 14MG Patch* (Nicoderm Cq 14MG*), 1 EACH TD DAILY, (Reported) Quetiapine Fumarate* (Seroquel*), 25 MG ORAL BEDTIME, (Reported) Sennosides (Senna), 8.6 MG PO DAILY, (Reported) Sevelamer Carbonate (Renvela), 3 TAB ORAL THREE TIMES A DAY, (Reported) Sevelamer Carbonate* (Renvela*), 800 MG ORAL THREE TIMES A DAY, (Reported) [Robitussin Dm], 10 ML PO EVERY 6 HOURS, (Reported) Scheduled PRN Acetaminophen* (Acetaminophen 325MG Tablet*), 650 MG ORAL Q4H PRN for Pain Scale (3-5), (Reported) Alprazolam* (Xanax*), 0.25 MG ORAL THREE TIMES A DAY PRN for For Anxiety, ( Reported) Ipratropium Pioche 0.5MG/2.5ML (Ipratropium Pioche 0.5MG/2.5ML), 2 PUFFS HHN FIVE TIMES A DAY PRN for Shortness of Breath, (Reported) Ondansetron Odt* (Zofran Odt*), 4 MG ORAL EVERY 4 HOURS PRN for Nausea & Vomiting, (Reported) Oxycodone HCl (Oxycodone HCl), 5 MG ORAL Q4H PRN for For Pain, (Reported) Oxycodone Hcl (Oxycodone Hcl), 20 MG ORAL EVERY 12 HOURS PRN for For Pain, ( Reported) Zolpidem Tartrate* (Ambien*), 10 MG ORAL BEDTIME PRN for Insomnia, (Reported) Patient History Healthcare decision maker Resuscitation status Full Code Advanced Directive on File Past Medical/Surgical History Past Medical/Surgical History: (1) ESRD (end stage renal disease) on dialysis Review of Systems Respiratory: Reports: shortness of breath All Other Systems: negative except mentioned in HPI Physical Exam General Appearance: cachetic Lines, tubes and drains: peripheral HEENT: normocephalic, atraumatic Neck: non-tender, normal alignment Respiratory/Chest: chest wall non-tender, rhonchi - left, rhonchi - right Breasts: no masses Cardiovascular/Chest: normal peripheral pulses Abdomen: normal bowel sounds Genitourinary/Rectal: normal genital exam Extremities: normal range of motion 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 Lymphatic: anterior cervical Last 24 Hour Vital Signs Date Time Temp Pulse Resp B/P (MAP) Pulse Ox O2 Delivery O2 Flow Rate FiO2 02/06/18 08:15 71 168/94 02/06/18 08:15 168/94 02/06/18 05:17 168/90 02/06/18 04:00 98.1 72 18 156/83 92 Room Air 98.1 02/06/18 04:00 0 02/06/18 00:00 88 02/06/18 00:00 98.1 72 18 130/72 95 Room Air 98.1 02/05/18 22:15 76 151/75 02/05/18 21:45 180/74 02/05/18 21:44 180/74 02/05/18 20:00 97.0 87 20 180/74 95 Room Air 97.0 02/05/18 17:48 158/75 02/05/18 17:43 Room Air 02/05/18 17:42 97.5 72 20 193/96 Room Air 97.5 02/05/18 16:00 97.3 74 20 158/75 97 Nasal Cannula 3.0 32 97.3 02/05/18 13:46 145/82 02/05/18 13:30 97.3 74 20 161/83 Nasal Cannula 3.0 97.3 02/05/18 13:00 145/82 02/05/18 12:00 97.7 72 18 145/82 97 Room Air 2.5 32 97.7 Intake and Output 02/05/18 02/06/18 19:00 07:00 Intake Total 360 ml 480 ml Output Total 2500 ml Balance -2140 ml 480 ml Intake Oral 360 ml 480 ml Output Hemodialysis UF 2500 ml Laboratory Tests Test 02/05/18 17:15 02/06/18 02:00 02/06/18 08:00 White Blood Count 4.7 K/UL (4.8-10.8) L 5.7 K/UL (4.8-10.8) 7.8 K/UL (4.8-10.8) Red Blood Count 2.72 M/UL (4.70-6.10) L 2.59 M/UL (4.70-6.10) L 2.84 M/UL (4.70-6.10) L Hemoglobin 8.3 G/DL (14.2-18.0) L 8.0 G/DL (14.2-18.0) L 9.1 G/DL (14.2-18.0) L Hematocrit 24.5 % (42.0-52.0) L 23.7 % (42.0-52.0) L 26.6 % (42.0-52.0) L Mean Corpuscular Volume 90 FL (80-99) 92 FL (80-99) 94 FL (80-99) Mean Corpuscular Hemoglobin 30.5 PG (27.0-31.0) 30.9 PG (27.0-31.0) 32.0 PG (27.0-31.0) H Mean Corpuscular Hemoglobin Concent 33.8 G/DL (32.0-36.0) 33.7 G/DL (32.0-36.0) 34.1 G/DL (32.0-36.0) Red Cell Distribution Width 16.0 % (11.6-14.8) H 15.8 % (11.6-14.8) H 16.5 % (11.6-14.8) H Platelet Count 97 K/UL (150-450) L 105 K/UL (150-450) L 121 K/UL (150-450) L Mean Platelet Volume 6.0 FL (6.5-10.1) L 5.8 FL (6.5-10.1) L 6.1 FL (6.5-10.1) L Neutrophils (%) (Auto) 76.9 % (45.0-75.0) H 69.4 % (45.0-75.0) 72.2 % (45.0-75.0) Lymphocytes (%) (Auto) 16.3 % (20.0-45.0) L 17.2 % (20.0-45.0) L 15.7 % (20.0-45.0) L Monocytes (%) (Auto) 3.0 % (1.0-10.0) 8.7 % (1.0-10.0) 7.7 % (1.0-10.0) Eosinophils (%) (Auto) 3.2 % (0.0-3.0) H 3.6 % (0.0-3.0) H 3.5 % (0.0-3.0) H Basophils (%) (Auto) 0.6 % (0.0-2.0) 1.1 % (0.0-2.0) 1.0 % (0.0-2.0) Sodium Level 141 MMOL/L (136-145) Potassium Level 5.5 MMOL/L (3.5-5.1) H Chloride Level 100 MMOL/L (98-107) Carbon Dioxide Level 34 MMOL/L (21-32) H Anion Gap 7 mmol/L (5-15) Blood Urea Nitrogen 73 mg/dL (7-18) H Creatinine 7.2 MG/DL (0.55-1.30) H Estimat Glomerular Filtration Rate 7.7 mL/min (>60) Glucose Level 97 MG/DL (74-106) Calcium Level 8.2 MG/DL (8.5-10.1) L Height (Feet): 5 Height (Inches): 7.00 Weight (Pounds): 128 Medications Current Medications Medications (Trade) Dose Ordered Sig/Blessing Route PRN Reason Start Time Stop Time Status Last Admin Dose Admin Acetaminophen (Tylenol) 500 mg 3XW PRN ORAL WITH DIALYSIS 02/02/18 21:00 03/04/18 20:59 02/02/18 21:20 Amlodipine Besylate (Norvasc) 10 mg DAILY ORAL 02/03/18 11:15 03/05/18 11:14 02/06/18 08:15 Clonidine HCl (Catapres Tab) 0.1 mg EVERY 8 HOURS ORAL 02/03/18 14:00 03/05/18 13:59 02/06/18 05:17 Clonidine HCl (Catapres Tab) 0.1 mg Q4H PRN ORAL bp over 160 syst 02/02/18 15:45 03/04/18 15:44 02/04/18 05:25 Diphenhydramine HCl (Benadryl) 50 mg Q6H PRN IVP WITH DIALYSIS or ITCHING 02/02/18 21:00 03/04/18 20:59 02/05/18 02:48 Epoetin Alfonzo (Procrit (for non ESRD use)) 5,000 units SUN-SUN-SUN SUBQ 02/04/18 21:00 03/06/18 20:59 02/04/18 23:18 Folic Acid (Folate) 1 mg DAILY ORAL 02/04/18 09:00 03/06/18 08:59 02/06/18 08:14 Gabapentin (Neurontin) 300 mg THREE TIMES A DAY ORAL 02/05/18 09:00 03/07/18 08:59 02/06/18 08:14 Hydralazine HCl (Apresoline) 25 mg FOUR TIMES A DAY ORAL 02/03/18 13:00 03/05/18 12:59 02/06/18 08:15 Iron Sucrose 100 mg/Sodium Chloride 60 ml @ 240 mls/hr TuThSa@2100 IV 02/05/18 21:00 02/16/18 21:14 02/05/18 21:44 Lorazepam (Ativan) 1 mg Q6H PRN ORAL For Anxiety 02/05/18 04:15 02/12/18 04:14 02/05/18 08:43 Pantoprazole (Protonix) 40 mg EVERY 12 HOURS ORAL 02/03/18 09:00 03/05/18 08:59 02/06/18 08:14 Quetiapine Fumarate (SEROquel) 25 mg QHS ORAL 02/05/18 21:00 03/07/18 20:59 02/05/18 21:45 Zolpidem Tartrate (Ambien) 10 mg HSPRN PRN ORAL Insomnia 02/05/18 03:15 02/10/18 23:29 Assessment/Plan Problem List: (1) Acute respiratory failure ICD Codes: J96.00 - Acute respiratory failure, unspecified whether with hypoxia or hypercapnia SNOMED: 06430565 (2) ESRF (end stage renal failure) ICD Codes: N18.6 - End stage renal disease SNOMED: 87908823 (3) Pulmonary edema ICD Codes: J81.1 - Chronic pulmonary edema SNOMED: 15729370 (4) DVT (deep venous thrombosis) ICD Codes: I82.409 - Acute embolism and thrombosis of unspecified deep veins of unspecified lower extremity SNOMED: 841561022 Assessment/Plan cxr and CT angio of chest transfer to ICU start heparin drip HD if possible Lasix one dose Clement Mcleod MD Feb 06, 2018 10:56
[2018-02-06] MEDS ORDERED: Isovue-370 150ml vial INJ PRN (11:00)
--- NOTE | 2018-02-06 11:05 | Diagnostic Imaging Report ---
Indication: Shortness of breath Technique: XRAY Chest 1v Comparison: None Findings: Heart size within normal limits. Atherosclerotic calcifications noted in the aortic arch. There is extensive bilateral interstitial opacification/edema. There is a pleural effusion on the right. There bilateral airspace opacities which may represent areas of alveolar edema or pneumonia. A somewhat more rounded opacity is noted in the right midlung, again possibly confluent airspace disease. Follow-up exam recommended to assess for resolution. No definite pneumothorax. No acute osseous abnormality. IMPRESSION: Extensive bilateral interstitial opacification/edema. Bilateral airspace opacities, right greater than left, may be related to areas of alveolar edema or pneumonia. Somewhat rounded opacity in the right midlung may related to confluent airspace disease. Clinical correlation and follow-up exam recommended. Likely small to moderate layering right pleural effusion. No definite pneumothorax. Findings discussed with patient's treating nurse on 2E at 10:55 AM on 02/06/2018
[2018-02-06] MEDS ORDERED: Heparin 25,000u/D5W 500ml 500 ML IV SCH ×3 (11:30→21:30)
--- NOTE | 2018-02-06 13:05 | General Progress Note ---
Assessment/Plan Problem List: (1) Abnormal laboratory test result ICD Codes: R89.9 - Unspecified abnormal finding in specimens from other organs , systems and tissues SNOMED: 815335032 (2) ESRD (end stage renal disease) on dialysis ICD Codes: N18.6 - End stage renal disease; Z99.2 - Dependence on renal dialysis SNOMED: 885490120 (3) Hypertension, uncontrolled ICD Codes: I10 - Essential (primary) hypertension SNOMED: 22214185, 33326043 (4) Symptomatic anemia ICD Codes: D64.9 - Anemia, unspecified SNOMED: 475184803 (5) Acute hyperkalemia ICD Codes: E87.5 - Hyperkalemia SNOMED: 0484467 (6) DVT (deep venous thrombosis) ICD Codes: I82.409 - Acute embolism and thrombosis of unspecified deep veins of unspecified lower extremity SNOMED: 459434030 (7) SOB (shortness of breath) ICD Codes: R06.02 - Shortness of breath SNOMED: 072367959 Status: unchanged Assessment/Plan ot pt diet o2 pulm tx gi/heme f/u anticoag pulm f/u icu transfer cbc bmp am ltach eval Subjective Constitutional: Reports: weakness Respiratory: Reports: shortness of breath Allergies: Coded Allergies: No Known Allergies (Unverified , 02/02/18) All Systems: reviewed and negative except above Subjective calm in bed awaiting tranfer to icu Objective Last 24 Hour Vital Signs Date Time Temp Pulse Resp B/P (MAP) Pulse Ox O2 Delivery O2 Flow Rate FiO2 02/06/18 12:19 168/94 02/06/18 12:00 98.5 82 18 168/82 96 Non-Rebreather 10.0 98.5 02/06/18 08:15 71 168/94 02/06/18 08:15 168/94 02/06/18 08:00 107 02/06/18 08:00 98.2 95 18 162/80 92 Room Air 98.2 02/06/18 05:17 168/90 02/06/18 04:00 98.1 72 18 156/83 92 Room Air 98.1 02/06/18 04:00 0 02/06/18 00:00 88 02/06/18 00:00 98.1 72 18 130/72 95 Room Air 98.1 02/05/18 22:15 76 151/75 02/05/18 21:45 180/74 02/05/18 21:44 180/74 02/05/18 20:00 97.0 87 20 180/74 95 Room Air 97.0 02/05/18 17:48 158/75 02/05/18 17:43 Room Air 02/05/18 17:42 97.5 72 20 193/96 Room Air 97.5 02/05/18 16:00 97.3 74 20 158/75 97 Nasal Cannula 3.0 32 97.3 02/05/18 13:46 145/82 02/05/18 13:30 97.3 74 20 161/83 Nasal Cannula 3.0 97.3 Intake and Output 02/05/18 02/06/18 19:00 07:00 Intake Total 360 ml 480 ml Output Total 2500 ml Balance -2140 ml 480 ml Intake Oral 360 ml 480 ml Output Hemodialysis UF 2500 ml Laboratory Tests 02/05/18 17:15: White Blood Count 4.7L, Red Blood Count 2.72L, Hemoglobin 8.3L, Hematocrit 24.5L , Mean Corpuscular Volume 90, Mean Corpuscular Hemoglobin 30.5, Mean Corpuscular Hemoglobin Concent 33.8, Red Cell Distribution Width 16.0H, Platelet Count 97L, Mean Platelet Volume 6.0L, Neutrophils (%) (Auto) 76.9H, Lymphocytes (%) (Auto) 16.3L, Monocytes (%) (Auto) 3.0, Eosinophils (%) (Auto) 3.2H, Basophils (%) (Auto) 0.6 02/06/18 02:00: White Blood Count 5.7, Red Blood Count 2.59L, Hemoglobin 8.0L, Hematocrit 23.7L , Mean Corpuscular Volume 92, Mean Corpuscular Hemoglobin 30.9, Mean Corpuscular Hemoglobin Concent 33.7, Red Cell Distribution Width 15.8H, Platelet Count 105L, Mean Platelet Volume 5.8L, Neutrophils (%) (Auto) 69.4, Lymphocytes (%) (Auto) 17.2L, Monocytes (%) (Auto) 8.7, Eosinophils (%) (Auto) 3.6H, Basophils (%) (Auto) 1.1, Sodium Level 141, Potassium Level 5.5H, Chloride Level 100, Carbon Dioxide Level 34H, Anion Gap 7, Blood Urea Nitrogen 73H, Creatinine 7.2H, Estimat Glomerular Filtration Rate 7.7, Glucose Level 97, Calcium Level 8.2L 02/06/18 08:00: White Blood Count 7.8, Red Blood Count 2.84L, Hemoglobin 9.1L, Hematocrit 26.6L , Mean Corpuscular Volume 94, Mean Corpuscular Hemoglobin 32.0H, Mean Corpuscular Hemoglobin Concent 34.1, Red Cell Distribution Width 16.5H, Platelet Count 121L, Mean Platelet Volume 6.1L, Neutrophils (%) (Auto) 72.2, Lymphocytes (%) (Auto) 15.7L, Monocytes (%) (Auto) 7.7, Eosinophils (%) (Auto) 3.5H, Basophils (%) (Auto) 1.0 02/06/18 10:55: Arterial Blood pH 7.446, Arterial Blood Partial Pressure CO2 52.6H, Arterial Blood Partial Pressure O2 48.6*L, Arterial Blood HCO3 35.3H, Arterial Blood Oxygen Saturation 81.2L, Arterial Blood Base Excess 10.2, Manuel Test Positive 02/06/18 12:23: Activated Partial Thromboplast Time 33 Height (Feet): 5 Height (Inches): 7.00 Weight (Pounds): 128 General Appearance: lethargic EENT: PERRL/EOMI Neck: normal alignment Cardiovascular: normal peripheral pulses, normal rate, regular rhythm Respiratory/Chest: chest wall non-tender, lungs clear, normal breath sounds Abdomen: normal bowel sounds, non tender, soft Extremities: normal inspection Edema: no edema noted Arm (L), no edema noted Arm (R), no edema noted Leg (L), no edema noted Leg (R), no edema noted Pedal (L), no edema noted Pedal (R), no edema noted Generalized Neurologic: motor weakness Skin: normal pigmentation, warm/dry PEDRO HUTSON Feb 06, 2018 13:04
--- NOTE | 2018-02-06 13:22 | GI Progress Note ---
Assessment/Plan Problems: (1) Abnormal LFTs ICD Codes: R94.5 - Abnormal results of liver function studies SNOMED: 909641465 (2) Symptomatic anemia ICD Codes: D64.9 - Anemia, unspecified SNOMED: 092706258 (3) ESRD (end stage renal disease) on dialysis ICD Codes: N18.6 - End stage renal disease; Z99.2 - Dependence on renal dialysis SNOMED: 175819731 Status: unchanged Status Narrative Discussed with Dr. Matos. Assessment/Plan hx of EGD/colonoscopy 3 months ago per patient, cannot recall location. iron panel WNL OB stool negative monitor H&H, prn transfusions ppi thiamine fu labs outpatient GI procedures Subjective Subjective denies abdominal pain had EGD/colonoscopy x3 months Objective Last 24 Hour Vital Signs Date Time Temp Pulse Resp B/P (MAP) Pulse Ox O2 Delivery O2 Flow Rate FiO2 02/06/18 13:19 90 02/06/18 13:01 168/94 02/06/18 12:19 168/94 02/06/18 12:00 98.5 82 18 168/82 96 Non-Rebreather 10.0 98.5 02/06/18 08:15 71 168/94 02/06/18 08:15 168/94 02/06/18 08:00 107 02/06/18 08:00 98.2 95 18 162/80 92 Room Air 98.2 02/06/18 05:17 168/90 02/06/18 04:00 98.1 72 18 156/83 92 Room Air 98.1 02/06/18 04:00 0 02/06/18 00:00 88 02/06/18 00:00 98.1 72 18 130/72 95 Room Air 98.1 02/05/18 22:15 76 151/75 02/05/18 21:45 180/74 02/05/18 21:44 180/74 02/05/18 20:00 97.0 87 20 180/74 95 Room Air 97.0 02/05/18 17:48 158/75 02/05/18 17:43 Room Air 02/05/18 17:42 97.5 72 20 193/96 Room Air 97.5 02/05/18 16:00 97.3 74 20 158/75 97 Nasal Cannula 3.0 32 97.3 02/05/18 13:46 145/82 02/05/18 13:30 97.3 74 20 161/83 Nasal Cannula 3.0 97.3 Intake and Output 02/05/18 02/06/18 19:00 07:00 Intake Total 360 ml 480 ml Output Total 2500 ml Balance -2140 ml 480 ml Intake Oral 360 ml 480 ml Output Hemodialysis UF 2500 ml Laboratory Tests Test 02/05/18 17:15 02/06/18 02:00 02/06/18 08:00 02/06/18 10:55 White Blood Count 4.7 K/UL (4.8-10.8) L 5.7 K/UL (4.8-10.8) 7.8 K/UL (4.8-10.8) Red Blood Count 2.72 M/UL (4.70-6.10) L 2.59 M/UL (4.70-6.10) L 2.84 M/UL (4.70-6.10) L Hemoglobin 8.3 G/DL (14.2-18.0) L 8.0 G/DL (14.2-18.0) L 9.1 G/DL (14.2-18.0) L Hematocrit 24.5 % (42.0-52.0) L 23.7 % (42.0-52.0) L 26.6 % (42.0-52.0) L Mean Corpuscular Volume 90 FL (80-99) 92 FL (80-99) 94 FL (80-99) Mean Corpuscular Hemoglobin 30.5 PG (27.0-31.0) 30.9 PG (27.0-31.0) 32.0 PG (27.0-31.0) H Mean Corpuscular Hemoglobin Concent 33.8 G/DL (32.0-36.0) 33.7 G/DL (32.0-36.0) 34.1 G/DL (32.0-36.0) Red Cell Distribution Width 16.0 % (11.6-14.8) H 15.8 % (11.6-14.8) H 16.5 % (11.6-14.8) H Platelet Count 97 K/UL (150-450) L 105 K/UL (150-450) L 121 K/UL (150-450) L Mean Platelet Volume 6.0 FL (6.5-10.1) L 5.8 FL (6.5-10.1) L 6.1 FL (6.5-10.1) L Neutrophils (%) (Auto) 76.9 % (45.0-75.0) H 69.4 % (45.0-75.0) 72.2 % (45.0-75.0) Lymphocytes (%) (Auto) 16.3 % (20.0-45.0) L 17.2 % (20.0-45.0) L 15.7 % (20.0-45.0) L Monocytes (%) (Auto) 3.0 % (1.0-10.0) 8.7 % (1.0-10.0) 7.7 % (1.0-10.0) Eosinophils (%) (Auto) 3.2 % (0.0-3.0) H 3.6 % (0.0-3.0) H 3.5 % (0.0-3.0) H Basophils (%) (Auto) 0.6 % (0.0-2.0) 1.1 % (0.0-2.0) 1.0 % (0.0-2.0) Sodium Level 141 MMOL/L (136-145) Potassium Level 5.5 MMOL/L (3.5-5.1) H Chloride Level 100 MMOL/L (98-107) Carbon Dioxide Level 34 MMOL/L (21-32) H Anion Gap 7 mmol/L (5-15) Blood Urea Nitrogen 73 mg/dL (7-18) H Creatinine 7.2 MG/DL (0.55-1.30) H Estimat Glomerular Filtration Rate 7.7 mL/min (>60) Glucose Level 97 MG/DL (74-106) Calcium Level 8.2 MG/DL (8.5-10.1) L Arterial Blood pH 7.446 (7.350-7.450) Arterial Blood Partial Pressure CO2 52.6 mmHg (35.0-45.0) H Arterial Blood Partial Pressure O2 48.6 mmHg (75.0-100.0) Arterial Blood HCO3 35.3 mmol/L (22.0-26.0) H Arterial Blood Oxygen Saturation 81.2 % (92.0-98.0) L Arterial Blood Base Excess 10.2 Manuel Test Positive Test 02/06/18 12:23 Activated Partial Thromboplast Time 33 SEC (23-33) Height (Feet): 5 Height (Inches): 7.00 Weight (Pounds): 128 General Appearance: WD/WN, no apparent distress, alert Cardiovascular: normal rate Respiratory/Chest: normal breath sounds, no respiratory distress Abdominal Exam: normal bowel sounds, non tender, soft Extremities: normal range of motion, non-tender Freya Aldana N.P. Feb 06, 2018 13:22
--- NOTE | 2018-02-06 14:16 | Diagnostic Imaging Report ---
Indication: Shortness of breath, desaturation. Assess for pulmonary embolism. Technique: CT pulmonary angiogram performed utilizing automated exposure control with intravenous contrast. Axial, sagittal and coronal reconstructions were obtained. 3-D volumetric reconstructions were also performed. CT dose: Total DLP 801.73 mGycm; CTDI vol 19.32 mGy Comparison: No prior CT angiogram the chest available for comparison. Correlation made to concurrent chest radiograph. Findings: There is adequate opacification of the pulmonary arterial system. There is no pulmonary embolism. The main pulmonary artery is normal in caliber, measuring 2.2 cm diameter. Thoracic aorta is normal in caliber with mild atherosclerotic calcification. There is a bovine arch. The visualized portions of the great vessels are patent. There is left vertebral dominance. Visualized portions of the abdominal aorta normal in caliber. Celiac, superior mesenteric arteries and visualized bilateral renal arteries are patent with significant ostial calcifications at the origin of the left renal artery. No evidence of aortic dissection. Heart is within the upper limits for normal size. There is no pericardial effusion. There are coronary arterial calcifications. Prominent mediastinal lymph nodes are noted, nonspecific Some calcifications are noted within some hilar nodes. An enlarged subcarinal lymph node measures up to 1.5 cm in short axis (series 6 image #94). There is diffuse smooth septal thickening and bilateral groundglass opacities. Small bilateral pleural effusions and adjacent compressive or dependent atelectatic changes in the posterior lower lobes. There are is fluid within the right-sided fissures, with somewhat loculated fluid in the right minor fissure corresponding to the masslike opacity noted on concurrent chest radiograph. The spleen is enlarged, measuring 14.6 cm in AP dimension. An infrarenal IVC filter is noted in place. Kidneys appear mildly atrophic. There is a low-attenuation lesion in the lower pole the right kidney. There are age indeterminate compression fractures of the L1-L2 vertebral bodies. IMPRESSION: * No pulmonary embolism. No thoracic aortic aneurysm or dissection. * Diffuse septal thickening and bilateral groundglass opacities and small bilateral pleural effusions. These findings are likely related to pulmonary edema. There is fluid along the fissures bilaterally with loculated fluid along the right minor fissure corresponding to the masslike opacity on concurrent chest radiograph. * Multiple prominent mediastinal lymph nodes with a subcarinal lymph node (series 6 image #95) meeting imaging size criteria for pathologic enlargement. Clinical correlation and follow-up exam recommended. Consider bronchoscopic biopsy as clinically indicated. * Splenomegaly. * Coronary arterial calcifications. * IVC filter in place. * Age indeterminate mild compression fractures of L1 and L2 vertebral bodies. * Possible mild renal atrophy. Correlate with renal function tests. The CT scanner at [facility] is accredited by the [employer] and the scans are performed using protocols designed to limit radiation exposure to as low as reasonably achievable to attain images of sufficient resolution adequate for diagnostic evaluation.
[2018-02-06] MEDS ORDERED: Isovue-370 150ml vial INJ ONE (15:00)
[2018-02-06 15:14] LABS: HEMATOCRIT 22.8 % (42.0-52.0); HEMOGLOBIN 7.4 G/DL (14.2-18.0); MEAN CORPUSCULAR VOLUME 94 FL (80-99); PLATELET COUNT 95 K/UL (150-450); RED BLOOD COUNT 2.43 M/UL (4.70-6.10); RED CELL DISTRIBUTION WIDTH 15.8 % (11.6-14.8); WHITE BLOOD COUNT 5.4 K/UL (4.8-10.8)
[2018-02-06] MEDS ORDERED: DiphenhydrAMINE 50mg/ml Inj IVP PRN (15:30)
[2018-02-06] MEDS ORDERED: LORazepam 1mg tab ORAL PRN (16:15)
[2018-02-06 16:49] LABS: INR 1.2 (0.9-1.1)
[2018-02-06] MEDS ORDERED: Warfarin Sodium 5mg ORAL ONE (18:00)
[2018-02-06] MEDS ORDERED: NS 275ml ONE (18:19)
[2018-02-06] MEDS ORDERED: Tubing IV Secondary IV ONE (18:19)
--- NOTE | 2018-02-06 19:23 | General Progress Note ---
Assessment/Plan Assessment/Plan (1) Right hip pain (2) Right hip Fracture (3) S/p ORIF of right hip Pt will held off Dilaudid at this time. D/w Dr. Childers he concurred. Subjective Date patient seen: Feb 06, 2018 Time patient seen: 07:00 - pm Allergies: Coded Allergies: No Known Allergies (Unverified , 02/02/18) Subjective Constitutional: Reports: no symptoms Eye: Reports: no symptoms ENT: Reports: no symptoms Respiratory: Reports: no symptoms Cardiovascular: Reports: no symptoms Gastrointestinal: Reports: no symptoms Genitourinary: Reports: no symptoms Musculoskeletal: Reports: no symptoms Skin: Reports: no symptoms Psychiatric: Reports: no symptoms Neurological: Reports: no symptoms Endocrine: Reports: no symptoms Hematologic/Lymphatic: Reports: no symptoms Subjective Patient has been transferred to ICU due to IV contrast administered for CT scan needing stat dialysis. No signs of pain or distress at this time. Objective Last 24 Hour Vital Signs Date Time Temp Pulse Resp B/P (MAP) Pulse Ox O2 Delivery O2 Flow Rate FiO2 02/06/18 18:00 68 15 148/59 100 Non-Rebreather 15.0 02/06/18 17:00 75 15 140/67 100 Non-Rebreather 15.0 02/06/18 16:00 Non-Rebreather 15.0 02/06/18 16:00 85 02/06/18 16:00 98.1 83 15 164/87 20 Non-Rebreather 15.0 98.1 02/06/18 16:00 98.2 84 16 164/87 Non-Rebreather 15.0 98.2 02/06/18 15:34 96 Non-Rebreather 15.0 100 02/06/18 15:34 Non-Rebreather 15.0 100 02/06/18 15:00 84 17 166/67 100 Non-Rebreather 15.0 02/06/18 14:00 98.0 86 22 155/71 100 Non-Rebreather 10.0 98.0 02/06/18 14:00 86 02/06/18 13:19 90 02/06/18 13:01 168/94 02/06/18 12:19 168/94 02/06/18 12:00 98.5 82 18 168/82 96 Non-Rebreather 10.0 98.5 02/06/18 08:15 71 168/94 02/06/18 08:15 168/94 02/06/18 08:00 107 02/06/18 08:00 98.2 95 18 162/80 92 Room Air 98.2 02/06/18 05:17 168/90 02/06/18 04:00 98.1 72 18 156/83 92 Room Air 98.1 02/06/18 04:00 0 02/06/18 00:00 88 02/06/18 00:00 98.1 72 18 130/72 95 Room Air 98.1 02/05/18 22:15 76 151/75 02/05/18 21:45 180/74 02/05/18 21:44 180/74 02/05/18 20:00 97.0 87 20 180/74 95 Room Air 97.0 Intake and Output 02/05/18 02/06/18 19:00 07:00 Intake Total 360 ml 480 ml Output Total 2500 ml Balance -2140 ml 480 ml Intake Oral 360 ml 480 ml Hemodialysis UF 2500 ml Laboratory Tests 02/06/18 02:00: White Blood Count 5.7, Red Blood Count 2.59L, Hemoglobin 8.0L, Hematocrit 23.7L , Mean Corpuscular Volume 92, Mean Corpuscular Hemoglobin 30.9, Mean Corpuscular Hemoglobin Concent 33.7, Red Cell Distribution Width 15.8H, Platelet Count 105L, Mean Platelet Volume 5.8L, Neutrophils (%) (Auto) 69.4, Lymphocytes (%) (Auto) 17.2L, Monocytes (%) (Auto) 8.7, Eosinophils (%) (Auto) 3.6H, Basophils (%) (Auto) 1.1, Sodium Level 141, Potassium Level 5.5H, Chloride Level 100, Carbon Dioxide Level 34H, Anion Gap 7, Blood Urea Nitrogen 73H, Creatinine 7.2H, Estimat Glomerular Filtration Rate 7.7, Glucose Level 97, Calcium Level 8.2L 02/06/18 08:00: White Blood Count 7.8, Red Blood Count 2.84L, Hemoglobin 9.1L, Hematocrit 26.6L , Mean Corpuscular Volume 94, Mean Corpuscular Hemoglobin 32.0H, Mean Corpuscular Hemoglobin Concent 34.1, Red Cell Distribution Width 16.5H, Platelet Count 121L, Mean Platelet Volume 6.1L, Neutrophils (%) (Auto) 72.2, Lymphocytes (%) (Auto) 15.7L, Monocytes (%) (Auto) 7.7, Eosinophils (%) (Auto) 3.5H, Basophils (%) (Auto) 1.0 02/06/18 10:55: Arterial Blood pH 7.446, Arterial Blood Partial Pressure CO2 52.6H, Arterial Blood Partial Pressure O2 48.6*L, Arterial Blood HCO3 35.3H, Arterial Blood Oxygen Saturation 81.2L, Arterial Blood Base Excess 10.2, Manuel Test Positive 02/06/18 12:23: Activated Partial Thromboplast Time 33 02/06/18 14:30: White Blood Count 5.4, Red Blood Count 2.43L, Hemoglobin 7.4L, Hematocrit 22.8L , Mean Corpuscular Volume 94, Mean Corpuscular Hemoglobin 30.5, Mean Corpuscular Hemoglobin Concent 32.6, Red Cell Distribution Width 15.8H, Platelet Count 95L, Mean Platelet Volume 6.0L, Neutrophils (%) (Auto) , Lymphocytes (%) (Auto) , Monocytes (%) (Auto) , Eosinophils (%) (Auto) , Basophils (%) (Auto) , Differential Total Cells Counted 100, Neutrophils % ( Manual) 76H, Lymphocytes % (Manual) 12L, Monocytes % (Manual) 4, Eosinophils % ( Manual) 5H, Basophils % (Manual) 3H, Band Neutrophils 0, Platelet Estimate DecreasedL, Platelet Morphology Normal, Polychromasia 1+, Hypochromasia 2+, Anisocytosis 1+ 02/06/18 16:16: Prothrombin Time 12.4H, Prothromb Time International Ratio 1.2H Height (Feet): 5 Height (Inches): 7.00 Weight (Pounds): 128 Objective General Appearance: no apparent distress, alert HEENT: PERRL, EOMI Neck: non-tender, normal alignment, supple, normal inspection Respiratory/Chest: lungs clear, normal breath sounds, no respiratory distress, no accessory muscle use Cardiovascular/Chest: normal rate, regular rhythm Abdomen: non tender, soft, no organomegaly Extremities: inflammation - right hip tenderness to palpation Skin Exam: normal pigmentation, warm/dry Neurologic: alert, oriented x 3 KANWAL CURRAN N. P.AJah Feb 06, 2018 19:23
--- NOTE | 2018-02-06 19:45 | Progress Note ---
DATE: 02/06/2018 SUBJECTIVE: This is a 63-year-old male patient with anemia and GI bleeding. The patient has altered mental status, confusion, and high levels of anxiety, worsened by stress of his medical illness. That is why, his attending has requested daily psychiatric consultation. MENTAL STATUS EXAMINATION: This is a 63-year-old male. Appearance is disheveled. Attitude, irritable and agitated. Affect, guarded and restricted. Intellect poor. Mood, depressed and anxious. Motor activity, psychomotor agitation. Attention span is poor. Orientation x2. Denies suicidal or homicidal thoughts. Insight and judgment is poor. DIAGNOSIS: Generalized anxiety disorder. PLAN: My plan for this patient is to treat him with Seroquel 25 mg at bedtime and Neurontin 300 mg two times a day. . An 18 to 20 minutes of supportive therapy provided. Chart reviewed. Discussed with staff. Seen and assessed at bedside. Rony Corral M.D. DR: PAM JOB#: [id number] CC:
--- NOTE | 2018-02-06 20:19 | Cardiology Progress Note ---
Assessment/Plan Assessment/Plan 1. Hypertension. 2. End-stage renal disease, on hemodialysis. 3. Anemia. 4. History of GI bleed secondary to AVMs. 5. Acute deep venous thrombosis, left leg. 6. History of femoral neck fracture s/p prbc yest got sob trasferd to icu nwo s/p 3000 cc uf ctpa neg for pe martines ivc filter inplace already dilaysis / uf repeat trop in am repeat ekg Subjective Cardiovascular: Denies: chest pain Respiratory: Reports: shortness of breath Gastrointestinal/Abdominal: Denies: abdominal pain Genitourinary: Denies: burning Objective Last 24 Hour Vital Signs Date Time Temp Pulse Resp B/P (MAP) Pulse Ox O2 Delivery O2 Flow Rate FiO2 02/06/18 19:21 97.7 70 20 137/66 Non-Rebreather 15.0 97.7 02/06/18 19:00 70 18 137/66 100 Non-Rebreather 15.0 02/06/18 18:00 68 15 148/59 100 Non-Rebreather 15.0 02/06/18 17:00 75 15 140/67 100 Non-Rebreather 15.0 02/06/18 16:00 Non-Rebreather 15.0 02/06/18 16:00 85 02/06/18 16:00 98.1 83 15 164/87 20 Non-Rebreather 15.0 98.1 02/06/18 16:00 98.2 84 16 164/87 Non-Rebreather 15.0 98.2 02/06/18 15:34 96 Non-Rebreather 15.0 100 02/06/18 15:34 Non-Rebreather 15.0 100 02/06/18 15:00 84 17 166/67 100 Non-Rebreather 15.0 02/06/18 14:00 98.0 86 22 155/71 100 Non-Rebreather 10.0 98.0 02/06/18 14:00 86 02/06/18 13:19 90 02/06/18 13:01 168/94 02/06/18 12:19 168/94 02/06/18 12:00 98.5 82 18 168/82 96 Non-Rebreather 10.0 98.5 02/06/18 08:15 71 168/94 02/06/18 08:15 168/94 4/25/18 08:00 107 02/06/18 08:00 98.2 95 18 162/80 92 Room Air 98.2 02/06/18 05:17 168/90 02/06/18 04:00 98.1 72 18 156/83 92 Room Air 98.1 02/06/18 04:00 0 02/06/18 00:00 88 02/06/18 00:00 98.1 72 18 130/72 95 Room Air 98.1 02/05/18 22:15 76 151/75 02/05/18 21:45 180/74 02/05/18 21:44 180/74 General Appearance: no apparent distress, alert Neck: no JVD Cardiovascular: normal rate, regular rhythm Respiratory/Chest: crackles/rales Abdomen: normal bowel sounds, non tender, soft Extremities: no swelling Intake and Output 02/05/18 02/06/18 19:00 07:00 Intake Total 360 ml 480 ml Output Total 2500 ml Balance -2140 ml 480 ml Intake Oral 360 ml 480 ml Hemodialysis UF 2500 ml Laboratory Tests Test 02/06/18 02:00 02/06/18 08:00 02/06/18 10:55 02/06/18 12:23 White Blood Count 5.7 K/UL (4.8-10.8) 7.8 K/UL (4.8-10.8) Red Blood Count 2.59 M/UL (4.70-6.10) L 2.84 M/UL (4.70-6.10) L Hemoglobin 8.0 G/DL (14.2-18.0) L 9.1 G/DL (14.2-18.0) L Hematocrit 23.7 % (42.0-52.0) L 26.6 % (42.0-52.0) L Mean Corpuscular Volume 92 FL (80-99) 94 FL (80-99) Mean Corpuscular Hemoglobin 30.9 PG (27.0-31.0) 32.0 PG (27.0-31.0) H Mean Corpuscular Hemoglobin Concent 33.7 G/DL (32.0-36.0) 34.1 G/DL (32.0-36.0) Red Cell Distribution Width 15.8 % (11.6-14.8) H 16.5 % (11.6-14.8) H Platelet Count 105 K/UL (150-450) L 121 K/UL (150-450) L Mean Platelet Volume 5.8 FL (6.5-10.1) L 6.1 FL (6.5-10.1) L Neutrophils (%) (Auto) 69.4 % (45.0-75.0) 72.2 % (45.0-75.0) Lymphocytes (%) (Auto) 17.2 % (20.0-45.0) L 15.7 % (20.0-45.0) L Monocytes (%) (Auto) 8.7 % (1.0-10.0) 7.7 % (1.0-10.0) Eosinophils (%) (Auto) 3.6 % (0.0-3.0) H 3.5 % (0.0-3.0) H Basophils (%) (Auto) 1.1 % (0.0-2.0) 1.0 % (0.0-2.0) Sodium Level 141 MMOL/L (136-145) Potassium Level 5.5 MMOL/L (3.5-5.1) H Chloride Level 100 MMOL/L (98-107) Carbon Dioxide Level 34 MMOL/L (21-32) H Anion Gap 7 mmol/L (5-15) Blood Urea Nitrogen 73 mg/dL (7-18) H Creatinine 7.2 MG/DL (0.55-1.30) H Estimat Glomerular Filtration Rate 7.7 mL/min (>60) Glucose Level 97 MG/DL (74-106) Calcium Level 8.2 MG/DL (8.5-10.1) L Arterial Blood pH 7.446 (7.350-7.450) Arterial Blood Partial Pressure CO2 52.6 mmHg (35.0-45.0) H Arterial Blood Partial Pressure O2 48.6 mmHg (75.0-100.0) Arterial Blood HCO3 35.3 mmol/L (22.0-26.0) H Arterial Blood Oxygen Saturation 81.2 % (92.0-98.0) L Arterial Blood Base Excess 10.2 Manuel Test Positive Activated Partial Thromboplast Time 33 SEC (23-33) Test 02/06/18 14:30 02/06/18 16:16 White Blood Count 5.4 K/UL (4.8-10.8) Red Blood Count 2.43 M/UL (4.70-6.10) L Hemoglobin 7.4 G/DL (14.2-18.0) L Hematocrit 22.8 % (42.0-52.0) L Mean Corpuscular Volume 94 FL (80-99) Mean Corpuscular Hemoglobin 30.5 PG (27.0-31.0) Mean Corpuscular Hemoglobin Concent 32.6 G/DL (32.0-36.0) Red Cell Distribution Width 15.8 % (11.6-14.8) H Platelet Count 95 K/UL (150-450) L Mean Platelet Volume 6.0 FL (6.5-10.1) L Neutrophils (%) (Auto) % (45.0-75.0) Lymphocytes (%) (Auto) % (20.0-45.0) Monocytes (%) (Auto) % (1.0-10.0) Eosinophils (%) (Auto) % (0.0-3.0) Basophils (%) (Auto) % (0.0-2.0) Differential Total Cells Counted 100 Neutrophils % (Manual) 76 % (45-75) H Lymphocytes % (Manual) 12 % (20-45) L Monocytes % (Manual) 4 % (1-10) Eosinophils % (Manual) 5 % (0-3) H Basophils % (Manual) 3 % (0-2) H Band Neutrophils 0 % (0-8) Platelet Estimate Decreased L Platelet Morphology Normal Polychromasia 1+ Hypochromasia 2+ Anisocytosis 1+ Prothrombin Time 12.4 SEC (9.30-11.50) H Prothromb Time International Ratio 1.2 (0.9-1.1) H JACINTO CORONA Feb 06, 2018 20:19
[2018-02-06 20:42] LABS: HEMATOCRIT 21.9 % (42.0-52.0); HEMOGLOBIN 7.3 G/DL (14.2-18.0); MEAN CORPUSCULAR VOLUME 93 FL (80-99); PLATELET COUNT 84 K/UL (150-450); RED BLOOD COUNT 2.36 M/UL (4.70-6.10); RED CELL DISTRIBUTION WIDTH 15.6 % (11.6-14.8); WHITE BLOOD COUNT 5.3 K/UL (4.8-10.8)
[2018-02-06 20:44] LABS: EOSINOPHILS % (AUTO) 3.6 % (0.0-3.0); LYMPHOCYTES % (AUTO) 19.5 % (20.0-45.0); MONOCYTES % (AUTO) 9.1 % (1.0-10.0); NEUTROPHILS % (AUTO) 66.9 % (45.0-75.0)
[2018-02-06 20:45] LABS: BASOPHILS % (AUTO) 0.8 % (0.0-2.0)
[2018-02-06] MEDS ORDERED: Epogen (for non ESRD use) SUBQ SCH (21:00)
[2018-02-06] MEDS ORDERED: Zolpidem 5mg tab ORAL PRN (21:00)
[2018-02-06] MEDS ORDERED: Heparin 5000 units/ml inj IV SCH (21:15)
[2018-02-06] MEDS ORDERED: Acetaminophen 500mg (ES) tab ORAL ONE (22:15)
--- NOTE | 2018-02-06 23:56 | General Progress Note ---
Assessment/Plan Assessment/Plan IMPRESSION: 1. Anemia of kidney disease. 2. Anemia of iron deficiency. 3. Decreased hemoglobin and hematocrit, rule out GI bleed. 4. Hyperkalemia. 5. Thrombocytopenia. 6. Hypertension. 7. COPD. 8. Posttraumatic stress disorder. 9. BPH. 10. Malnutrition. 11. Failure to thrive. 12. Hip pain. RECOMMENDATIONS: 1. Watch count. 2. Watch coagulopathy. 3. PRBC transfusion p.r.n. basis. 4. Procrit subcutaneous. 5. Iron IV. 6. Hemodialysis p.r.n. basis. 7. Nephrology followup. 8. Cardiology followup. 9. Continue current treatment. 10. Discussed with staff. 11. Skin care. 12. Nutrition. 13. Pain management. Subjective Date patient seen: Feb 06, 2018 Constitutional: Denies: no symptoms, chills, diaphoresis, fever, malaise, weakness, other HEENT: Denies: no symptoms, eye pain, blurred vision, tearing, double vision, ear pain, ear discharge, nose pain, nose congestion, throat pain, throat swelling, mouth pain, mouth swelling, other Cardiovascular: Denies: no symptoms, chest pain, edema, irregular heart rate, lightheadedness, palpitations, syncope, other Respiratory: Denies: no symptoms, cough, orthopnea, shortness of breath, SOB with excertion, SOB at rest, sputum, stridor, wheezing, other Gastrointestinal/Abdominal: Denies: no symptoms, abdomen distended, abdominal pain, black stools, tarry stools, blood in stool, constipated, diarrhea, difficulty swallowing, nausea, poor appetite, poor fluid intake, rectal bleeding , vomiting, other Genitourinary: Denies: no symptoms, burning, discharge, frequency, flank pain, hematuria, incontinence, pain, urgency, other Neurologic/Psychiatric: Denies: no symptoms, anxiety, depressed, emotional problems, headache, numbness, paresthesia, pre-existing deficit, seizure, tingling, tremors, weakness, other Hematologic/Lymphatic: Reports: anemia Allergies: Coded Allergies: No Known Allergies (Unverified , 02/02/18) Subjective On pain control. No fever. On anticoagulation. Objective Last 24 Hour Vital Signs Date Time Temp Pulse Resp B/P (MAP) Pulse Ox O2 Delivery O2 Flow Rate FiO2 02/06/18 23:00 97.8 76 15 154/60 100 Non-Rebreather 15.0 97.8 02/06/18 22:00 71 16 144/51 100 Non-Rebreather 15.0 02/06/18 21:39 148/57 02/06/18 21:00 73 16 147/48 100 Non-Rebreather 15.0 02/06/18 20:51 Non-Rebreather 15.0 100 02/06/18 20:51 99 Non-Rebreather 15.0 100 02/06/18 20:42 148/64 02/06/18 20:00 72 18 130/61 92 Nasal Cannula 4.0 02/06/18 20:00 72 02/06/18 19:21 97.7 70 20 137/66 Non-Rebreather 15.0 97.7 02/06/18 19:00 70 18 137/66 100 Non-Rebreather 15.0 02/06/18 18:00 68 15 148/59 100 Non-Rebreather 15.0 02/06/18 17:00 75 15 140/67 100 Non-Rebreather 15.0 02/06/18 16:00 Non-Rebreather 15.0 02/06/18 16:00 85 02/06/18 16:00 98.1 83 15 164/87 20 Non-Rebreather 15.0 98.1 02/06/18 16:00 98.2 84 16 164/87 Non-Rebreather 15.0 98.2 02/06/18 15:34 96 Non-Rebreather 15.0 100 02/06/18 15:34 Non-Rebreather 15.0 100 02/06/18 15:00 84 17 166/67 100 Non-Rebreather 15.0 02/06/18 14:00 98.0 86 22 155/71 100 Non-Rebreather 10.0 98.0 02/06/18 14:00 86 02/06/18 13:19 90 02/06/18 13:01 168/94 02/06/18 12:19 168/02/06/18 12:00 98.5 82 18 168/82 96 Non-Rebreather 10.0 98.5 02/06/18 08:15 71 168/94 02/06/18 08:15 168/94 02/06/18 08:00 107 02/06/18 08:00 98.2 95 18 162/80 92 Room Air 98.2 02/06/18 05:17 168/90 02/06/18 04:00 98.1 72 18 156/83 92 Room Air 98.1 02/06/18 04:00 0 02/06/18 00:00 88 02/06/18 00:00 98.1 72 18 130/72 95 Room Air 98.1 Intake and Output 02/05/18 02/06/18 19:00 07:00 Intake Total 360 ml 480 ml Output Total 2500 ml Balance -2140 ml 480 ml Intake Oral 360 ml 480 ml Hemodialysis UF 2500 ml Laboratory Tests 02/06/18 02:00: White Blood Count 5.7, Red Blood Count 2.59L, Hemoglobin 8.0L, Hematocrit 23.7L , Mean Corpuscular Volume 92, Mean Corpuscular Hemoglobin 30.9, Mean Corpuscular Hemoglobin Concent 33.7, Red Cell Distribution Width 15.8H, Platelet Count 105L, Mean Platelet Volume 5.8L, Neutrophils (%) (Auto) 69.4, Lymphocytes (%) (Auto) 17.2L, Monocytes (%) (Auto) 8.7, Eosinophils (%) (Auto) 3.6H, Basophils (%) (Auto) 1.1, Sodium Level 141, Potassium Level 5.5H, Chloride Level 100, Carbon Dioxide Level 34H, Anion Gap 7, Blood Urea Nitrogen 73H, Creatinine 7.2H, Estimat Glomerular Filtration Rate 7.7, Glucose Level 97, Calcium Level 8.2L 02/06/18 08:00: White Blood Count 7.8, Red Blood Count 2.84L, Hemoglobin 9.1L, Hematocrit 26.6L , Mean Corpuscular Volume 94, Mean Corpuscular Hemoglobin 32.0H, Mean Corpuscular Hemoglobin Concent 34.1, Red Cell Distribution Width 16.5H, Platelet Count 121L, Mean Platelet Volume 6.1L, Neutrophils (%) (Auto) 72.2, Lymphocytes (%) (Auto) 15.7L, Monocytes (%) (Auto) 7.7, Eosinophils (%) (Auto) 3.5H, Basophils (%) (Auto) 1.0 02/06/18 10:55: Arterial Blood pH 7.446, Arterial Blood Partial Pressure CO2 52.6H, Arterial Blood Partial Pressure O2 48.6*L, Arterial Blood HCO3 35.3H, Arterial Blood Oxygen Saturation 81.2L, Arterial Blood Base Excess 10.2, Mnauel Test Positive 02/06/18 12:23: Activated Partial Thromboplast Time 33 02/06/18 14:30: White Blood Count 5.4, Red Blood Count 2.43L, Hemoglobin 7.4L, Hematocrit 22.8L , Mean Corpuscular Volume 94, Mean Corpuscular Hemoglobin 30.5, Mean Corpuscular Hemoglobin Concent 32.6, Red Cell Distribution Width 15.8H, Platelet Count 95L, Mean Platelet Volume 6.0L, Neutrophils (%) (Auto) , Lymphocytes (%) (Auto) , Monocytes (%) (Auto) , Eosinophils (%) (Auto) , Basophils (%) (Auto) , Differential Total Cells Counted 100, Neutrophils % ( Manual) 76H, Lymphocytes % (Manual) 12L, Monocytes % (Manual) 4, Eosinophils % ( Manual) 5H, Basophils % (Manual) 3H, Band Neutrophils 0, Platelet Estimate DecreasedL, Platelet Morphology Normal, Polychromasia 1+, Hypochromasia 2+, Anisocytosis 1+ 02/06/18 16:16: Prothrombin Time 12.4H, Prothromb Time International Ratio 1.2H 02/06/18 20:30: White Blood Count 5.3, Red Blood Count 2.36L, Hemoglobin 7.3L, Hematocrit 21.9L , Mean Corpuscular Volume 93, Mean Corpuscular Hemoglobin 31.1H, Mean Corpuscular Hemoglobin Concent 33.4, Red Cell Distribution Width 15.6H, Platelet Count 84L, Mean Platelet Volume 6.1L, Neutrophils (%) (Auto) 66.9, Lymphocytes (%) (Auto) 19.5L, Monocytes (%) (Auto) 9.1, Eosinophils (%) (Auto) 3.6H, Basophils (%) (Auto) 0.8, Activated Partial Thromboplast Time 37H Height (Feet): 5 Height (Inches): 7.00 Weight (Pounds): 128 General Appearance: no apparent distress Cardiovascular: normal rate, regular rhythm Respiratory/Chest: lungs clear, normal breath sounds Abdomen: non tender, soft KLEYNBERGGORDONLELO Feb 06, 2018 23:56
[2018-02-07] VITALS (18 sets, daily range): BP systolic 138–180; BP diastolic 50–74
--- NOTE | 2018-02-07 06:30 | Consultation ---
DATE OF CONSULTATION: 02/05/2018 CONSULTING PHYSICIAN: Jarrod Lamas M.D. TREATING ATTENDING PHYSICIAN: Lebron Swift D.O. HISTORY OF PRESENT ILLNESS: The patient is a 63-year-old male patient who was initially admitted to the hospital from [facility]. presented to the emergency room with history of abnormal labs. He has diagnoses of anemia, hyperkalemia, and agitation. The patient has been agitated and irritable, forgetful and confused. For these reasons, he has been referred for psychotherapeutic services. The patient was assessed. He remains confused and disorganized. There is no indication of suicidal or homicidal thoughts of ideation. There is no indication of auditory or visual hallucinations. PAST MEDICAL HISTORY: Includes a history of encephalopathy and hypertension. ALLERGIES: The patient has no known drug allergies. SUBSTANCE ABUSE HISTORY: There is no indication of alcohol use, illicit substance use, or smoking cigarette. PSYCHIATRIC HISTORY: The patient has a history of generalized anxiety disorder, rule out depression with psychotic features. MENTAL STATUS EXAMINATION: The patient is alert and oriented to person and place. Mood is anxious. Affect is blunted. Thought process is disorganized Thought content, confused. The patient has poor attention and concentration. Poor insight, judgment, and impulse control. DIAGNOSIS: Generalized anxiety disorder as well as disorder, mild, recurrent with psychotic features. PLAN: This clinician assessed this patient. Provide the patient with reality orientation and supportive psychotherapy. Encouraging the patient to participate in treatment milieu. Continue with behavioral management. This clinician has reviewed the patient's chart. Discussed the treatment with treatment team. Jarrod Lamas PsyD. : Ishmael JOB#: [id number] CC:
[2018-02-07 08:40] LABS: HEMATOCRIT 22.6 % (42.0-52.0); HEMOGLOBIN 7.8 G/DL (14.2-18.0); MEAN CORPUSCULAR VOLUME 92 FL (80-99); PLATELET COUNT 77 K/UL (150-450); RED BLOOD COUNT 2.46 M/UL (4.70-6.10); RED CELL DISTRIBUTION WIDTH 15.5 % (11.6-14.8); WHITE BLOOD COUNT 5.1 K/UL (4.8-10.8)
--- NOTE | 2018-02-07 08:45 | Progress Note ---
DATE: 02/06/2018 HEMATOLOGY/ONCOLOGY PROGRESS NOTE SUBJECTIVE: The patient in the room, ICU. Comfortable without any significant distress. Mild shortness of breath on exertion. MEDICATIONS: 1. Heparin IV. 2. Tylenol. 3. Iron IV. 4. Amlodipine. 5. Folic acid. 6. . 7. Procrit. 8. Protonix. 9. Zolpidem. 10. Coumadin. 11. Lorazepam. 12. Benadryl. PHYSICAL EXAMINATION: VITAL SIGNS: T-max 97, respiratory rate 20, blood pressure 137/66, and pulse 80. HEENT: Head normocephalic and atraumatic. NECK: Supple. No thyroid enlargement. No lymphadenopathy. LUNGS: Decreased breath sounds bilaterally with few rhonchi in the base. HEART: S1, S2 regular. ABDOMEN: Soft, benign. No organomegaly present. Bowel sounds present. EXTREMITIES: No cyanosis, clubbing, or edema. LABORATORY DATA: WBC 5.4, hemoglobin 7.4, hematocrit 22.8, and platelets 95. Creatinine 7.2. INR 1.2. Venous Doppler of bilateral lower extremities revealed acute deep venous thrombosis, left lower extremity. IMPRESSION: 1. Acute deep venous thrombosis, left lower extremities. 2. Status post inferior vena cava filter placement. 3. Anticoagulation with Coumadin. 4. Anticoagulation with IV heparin. 5. History of gastrointestinal bleed. 6. Anemia of kidney disease. 7. Anemia of chronic disease. 8. Decreased hemoglobin and hematocrit, rule out gastrointestinal bleed. 9. End-stage renal disease, hemodialysis dependent. 10. History of femoral neck fracture. 11. Hypertension. 12. Acute respiratory failure. 13. Pulmonary edema. 14. Malnutrition. 15. Failure to thrive. 16. Chronic obstructive pulmonary disease. 17. History of polysubstance abuse. 18. Benign prostatic hypertrophy. 19. Fluid overload. 20. History of hepatitis C. 21. History of posttraumatic stress disorder. 22. History of smoking. RECOMMENDATIONS: 1. Watch count. 2. Watch coagulopathy. 3. PRBC transfusion p.r.n. basis. 4. Heparin IV. 5. Coumadin p.o. 6. Procrit subcutaneously. 7. Iron IV. 8. Cardiology followup. 9. Pulmonary followup. 10. Skin care. 11. Nutrition. 12. Discussed with the staff. Rahul Lewis MD DR: Adair JOB#: [id number] CC:
[2018-02-07] MEDS: HydrALAZINE 25mg tab ORAL SCH ×4 (08:48→21:37)
[2018-02-07 08:51] LABS: INR 1.2 (0.9-1.1)
--- NOTE | 2018-02-07 08:59 | General Progress Note ---
Assessment/Plan Assessment/Plan (1) Right hip pain (2) Right hip Fracture (3) S/p ORIF of right hip Pt will discontinued off Dilaudid, we will start Percocet 5/325mg PO 1 tab Q4H PRN severe pain with parameters to be set to HOLD OPIOIDS FOR OVERSEDATION OR SBP<90 OR DBP<60 OR O2SAT<92% OR RR<12 D/w Dr. Childers he concurred. Subjective Date patient seen: Feb 07, 2018 Time patient seen: 08:00 - am Allergies: Coded Allergies: No Known Allergies (Unverified , 02/02/18) Subjective Constitutional: Reports: no symptoms Eye: Reports: no symptoms ENT: Reports: no symptoms Respiratory: Reports: no symptoms Cardiovascular: Reports: no symptoms Gastrointestinal: Reports: no symptoms Genitourinary: Reports: no symptoms Musculoskeletal: Reports: no symptoms Skin: Reports: no symptoms Psychiatric: Reports: no symptoms Neurological: Reports: no symptoms Endocrine: Reports: no symptoms Hematologic/Lymphatic: Reports: no symptoms Subjective Patient is in bed and c/o pain looking better this morning. Objective Last 24 Hour Vital Signs Date Time Temp Pulse Resp B/P (MAP) Pulse Ox O2 Delivery O2 Flow Rate FiO2 02/07/18 08:48 169/69 02/07/18 08:47 79 169/69 02/07/18 07:49 Non-Rebreather 15.0 100 02/07/18 07:49 99 Non-Rebreather 15.0 100 02/07/18 06:02 154/63 02/07/18 06:00 77 17 154/63 100 Non-Rebreather 15.0 02/07/18 05:00 75 18 143/59 100 Non-Rebreather 15.0 02/07/18 04:00 73 02/07/18 04:00 97.6 73 16 147/61 99 Non-Rebreather 15.0 97.6 02/07/18 03:00 76 16 167/66 100 Non-Rebreather 15.0 02/07/18 02:00 74 15 170/65 100 Non-Rebreather 15.0 02/07/18 01:00 74 16 161/61 100 Non-Rebreather 15.0 02/07/18 00:10 97.8 02/07/18 00:00 71 02/07/18 00:00 98.2 71 16 144/60 100 Non-Rebreather 15.0 98.2 02/06/18 23:00 97.8 76 15 154/60 100 Non-Rebreather 15.0 97.8 02/06/18 22:00 71 16 144/51 100 Non-Rebreather 15.0 02/06/18 21:39 148/57 02/06/18 21:00 73 16 147/48 100 Non-Rebreather 15.0 02/06/18 20:51 Non-Rebreather 15.0 100 02/06/18 20:51 99 Non-Rebreather 15.0 100 02/06/18 20:42 148/64 02/06/18 20:00 72 18 130/61 92 Nasal Cannula 4.0 02/06/18 20:00 72 02/06/18 19:21 97.7 70 20 137/66 Non-Rebreather 15.0 97.7 02/06/18 19:00 70 18 137/66 100 Non-Rebreather 15.0 02/06/18 18:00 68 15 148/59 100 Non-Rebreather 15.0 02/06/18 17:00 75 15 140/67 100 Non-Rebreather 15.0 02/06/18 16:00 Non-Rebreather 15.0 02/06/18 16:00 85 02/06/18 16:00 98.1 83 15 164/87 20 Non-Rebreather 15.0 98.1 02/06/18 16:00 98.2 84 16 164/87 Non-Rebreather 15.0 98.2 02/06/18 15:34 96 Non-Rebreather 15.0 100 02/06/18 15:34 Non-Rebreather 15.0 100 02/06/18 15:00 84 17 166/67 100 Non-Rebreather 15.0 02/06/18 14:00 98.0 86 22 155/71 100 Non-Rebreather 10.0 98.0 02/06/18 14:00 86 02/06/18 13:19 90 02/06/18 13:01 168/94 02/06/18 12:19 168/94 02/06/18 12:00 98.5 82 18 168/82 96 Non-Rebreather 10.0 98.5 Intake and Output 02/06/18 02/07/18 19:00 07:00 Intake Total 350 ml 969.86 ml Output Total 0 ml 3000 ml Balance 350 ml -2030.14 ml Intake Oral 350 ml 390 ml IV Total 229.86 ml Blood Product 350 ml Output Urine Total 0 ml 0 ml Hemodialysis UF 3000 ml Laboratory Tests 02/06/18 10:55: Arterial Blood pH 7.446, Arterial Blood Partial Pressure CO2 52.6H, Arterial Blood Partial Pressure O2 48.6*L, Arterial Blood HCO3 35.3H, Arterial Blood Oxygen Saturation 81.2L, Arterial Blood Base Excess 10.2, Manuel Test Positive 02/06/18 12:23: Activated Partial Thromboplast Time 33 02/06/18 14:30: White Blood Count 5.4, Red Blood Count 2.43L, Hemoglobin 7.4L, Hematocrit 22.8L , Mean Corpuscular Volume 94, Mean Corpuscular Hemoglobin 30.5, Mean Corpuscular Hemoglobin Concent 32.6, Red Cell Distribution Width 15.8H, Platelet Count 95L, Mean Platelet Volume 6.0L, Neutrophils (%) (Auto) , Lymphocytes (%) (Auto) , Monocytes (%) (Auto) , Eosinophils (%) (Auto) , Basophils (%) (Auto) , Differential Total Cells Counted 100, Neutrophils % ( Manual) 76H, Lymphocytes % (Manual) 12L, Monocytes % (Manual) 4, Eosinophils % ( Manual) 5H, Basophils % (Manual) 3H, Band Neutrophils 0, Platelet Estimate DecreasedL, Platelet Morphology Normal, Polychromasia 1+, Hypochromasia 2+, Anisocytosis 1+ 02/06/18 16:16: Prothrombin Time 12.4H, Prothromb Time International Ratio 1.2H 02/06/18 20:30: White Blood Count 5.3, Red Blood Count 2.36L, Hemoglobin 7.3L, Hematocrit 21.9L , Mean Corpuscular Volume 93, Mean Corpuscular Hemoglobin 31.1H, Mean Corpuscular Hemoglobin Concent 33.4, Red Cell Distribution Width 15.6H, Platelet Count 84L, Mean Platelet Volume 6.1L, Neutrophils (%) (Auto) 66.9, Lymphocytes (%) (Auto) 19.5L, Monocytes (%) (Auto) 9.1, Eosinophils (%) (Auto) 3.6H, Basophils (%) (Auto) 0.8, Activated Partial Thromboplast Time 37H 02/07/18 08:00: White Blood Count 5.1, Red Blood Count 2.46L, Hemoglobin 7.8L, Hematocrit 22.6L , Mean Corpuscular Volume 92, Mean Corpuscular Hemoglobin 31.8H, Mean Corpuscular Hemoglobin Concent 34.5, Red Cell Distribution Width 15.5H, Platelet Count 77L, Mean Platelet Volume 6.7, Neutrophils (%) (Auto) , Lymphocytes (%) (Auto) , Monocytes (%) (Auto) , Eosinophils (%) (Auto) , Basophils (%) (Auto) , Activated Partial Thromboplast Time [Pending], Neutrophils % (Manual) [Pending], Lymphocytes % (Manual) [Pending], Platelet Estimate [Pending], Platelet Morphology [Pending], Prothrombin Time [Pending], Prothromb Time International Ratio [Pending], Sodium Level [Pending], Potassium Level [Pending], Chloride Level [Pending], Carbon Dioxide Level [Pending], Blood Urea Nitrogen [Pending], Creatinine [Pending], Estimat Glomerular Filtration Rate [Pending], Glucose Level [Pending], Calcium Level [Pending], Total Bilirubin [Pending], Aspartate Amino Transf (AST/SGOT) [Pending], Alanine Aminotransferase (ALT/SGPT) [Pending], Alkaline Phosphatase [Pending], Total Protein [Pending], Albumin [Pending], Globulin [Pending] Height (Feet): 5 Height (Inches): 7.00 Weight (Pounds): 135 Objective General Appearance: no apparent distress, alert HEENT: PERRL, EOMI Neck: non-tender, normal alignment, supple, normal inspection Respiratory/Chest: lungs clear, normal breath sounds, no respiratory distress, no accessory muscle use Cardiovascular/Chest: normal rate, regular rhythm Abdomen: non tender, soft, no organomegaly Extremities: inflammation - right hip tenderness to palpation Skin Exam: normal pigmentation, warm/dry Neurologic: alert, oriented x 3 KANWAL CURRAN PMarcelo Feb 07, 2018 08:59
[2018-02-07] MEDS ORDERED: oxyCODONE HCL/Acetaminophen 5/325mg ORAL PRN ×2 (09:00→16:00)
[2018-02-07 09:17] LABS: ALANINE AMINOTRANSFERASE 13 U/L (12-78); ALBUMIN 2.6 G/DL (3.4-5.0); ALBUMIN/GLOBULIN RATIO 0.6 (1.0-2.7); ALKALINE PHOSPHATASE 344 U/L (46-116); ANION GAP 6 mmol/L (5-15); ASPARTATE AMINO TRANSFERASE 22 U/L (15-37); BILIRUBIN,TOTAL 1.9 MG/DL (0.2-1.0); BLOOD UREA NITROGEN 62 mg/dL (7-18); CALCIUM 8.2 MG/DL (8.5-10.1); CARBON DIOXIDE 39 MMOL/L (21-32); CHLORIDE 99 MMOL/L (98-107); CREATININE 6.3 MG/DL (0.55-1.30); POTASSIUM 3.7 MMOL/L (3.5-5.1); SODIUM 144 MMOL/L (136-145)
[2018-02-07 09:19] LABS: BILIRUBIN,DIRECT 0.6 MG/DL (0.0-0.3)
--- NOTE | 2018-02-07 10:19 | Pulmonolgy Critical Care Note ---
Critical Care - Asmt/Plan Problems: (1) Acute respiratory failure (2) ESRD (end stage renal disease) on dialysis (3) Symptomatic anemia (4) Left leg DVT (5) Pulmonary edema Respiratory: monitor respiratory rate, adjust FIO2, CXR, other - CT chest reviewed, no PE, pt has already a IVC filter Cardiac: continue to monitor HR/BP Renal: F/U I&O, check electrolytes, other - got dialyzed yesterday Gastrointestinal: continue feedings/current rate Endocrine: monitor blood sugar, continue sliding scale insulin Hematologic: monitor H/H, transfuse if hgb<8.5 Neurologic: PRN Ativan, keep patient comfortable Affect: PRN ativan Disposition: transfer to Time Spent (Minutes): 40 Notes Reviewed: energy conservation representative, cardio, renal, ID, GI Discussed with: nurses, consultants, outsole 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 asset - Objective Last 24 Hour Vital Signs Date Time Temp Pulse Resp B/P (MAP) Pulse Ox O2 Delivery O2 Flow Rate FiO2 02/07/18 08:48 169/69 02/07/18 08:47 79 169/69 02/07/18 07:49 Non-Rebreather 15.0 100 02/07/18 07:49 99 Non-Rebreather 15.0 100 02/07/18 06:02 154/63 02/07/18 06:00 77 17 154/63 100 Non-Rebreather 15.0 02/07/18 05:00 75 18 143/59 100 Non-Rebreather 15.0 02/07/18 04:00 73 02/07/18 04:00 97.6 73 16 147/61 99 Non-Rebreather 15.0 97.6 02/07/18 03:00 76 16 167/66 100 Non-Rebreather 15.0 02/07/18 02:00 74 15 170/65 100 Non-Rebreather 15.0 02/07/18 01:00 74 16 161/61 100 Non-Rebreather 15.0 02/07/18 00:10 97.8 02/07/18 00:00 71 02/07/18 00:00 98.2 71 16 144/60 100 Non-Rebreather 15.0 98.2 02/06/18 23:00 97.8 76 15 154/60 100 Non-Rebreather 15.0 97.8 02/06/18 22:00 71 16 144/51 100 Non-Rebreather 15.0 02/06/18 21:39 148/57 02/06/18 21:00 73 16 147/48 100 Non-Rebreather 15.0 02/06/18 20:51 Non-Rebreather 15.0 100 02/06/18 20:51 99 Non-Rebreather 15.0 100 02/06/18 20:42 148/64 02/06/18 20:00 72 18 130/61 92 Nasal Cannula 4.0 02/06/18 20:00 72 02/06/18 19:21 97.7 70 20 137/66 Non-Rebreather 15.0 97.7 02/06/18 19:00 70 18 137/66 100 Non-Rebreather 15.0 02/06/18 18:00 68 15 148/59 100 Non-Rebreather 15.0 02/06/18 17:00 75 15 140/67 100 Non-Rebreather 15.0 02/06/18 16:00 Non-Rebreather 15.0 02/06/18 16:00 85 02/06/18 16:00 98.1 83 15 164/87 20 Non-Rebreather 15.0 98.1 02/06/18 16:00 98.2 84 16 164/87 Non-Rebreather 15.0 98.2 02/06/18 15:34 96 Non-Rebreather 15.0 100 02/06/18 15:34 Non-Rebreather 15.0 100 02/06/18 15:00 84 17 166/67 100 Non-Rebreather 15.0 02/06/18 14:00 98.0 86 22 155/71 100 Non-Rebreather 10.0 98.0 02/06/18 14:00 86 02/06/18 13:19 90 02/06/18 13:01 168/94 02/06/18 12:19 168/94 02/06/18 12:00 98.5 82 18 168/82 96 Non-Rebreather 10.0 98.5 Status: awake Condition: improving HEENT: atraumatic Neck: full ROM Lungs: rales, rhonchi Heart: HR/BP stable Abdomen: soft, active bowel sounds, feeding tube Decubiti: location, stage Accucheck: 117 Critical Care - Subjective ROS Limited/Unobtainable: Yes ICU Day: 2 Condition: critical, improving EKG Rhythm: Sinus Rhythm FI02: 100 Sputum Amount: Small I&O: Intake and Output 02/06/18 02/07/18 19:00 07:00 Intake Total 350 ml 969.86 ml Output Total 0 ml 3000 ml Balance 350 ml -2030.14 ml Intake Oral 350 ml 390 ml IV Total 229.86 ml Blood Product 350 ml Output Urine Total 0 ml 0 ml Hemodialysis UF 3000 ml CXR: right effusion, pulmonary edema Labs: Laboratory Tests Test 02/06/18 10:55 02/06/18 12:23 02/06/18 14:30 02/06/18 16:16 Arterial Blood pH 7.446 (7.350-7.450) Arterial Blood Partial Pressure CO2 52.6 mmHg (35.0-45.0) H Arterial Blood Partial Pressure O2 48.6 mmHg (75.0-100.0) Arterial Blood HCO3 35.3 mmol/L (22.0-26.0) H Arterial Blood Oxygen Saturation 81.2 % (92.0-98.0) L Arterial Blood Base Excess 10.2 Manuel Test Positive Activated Partial Thromboplast Time 33 SEC (23-33) White Blood Count 5.4 K/UL (4.8-10.8) Red Blood Count 2.43 M/UL (4.70-6.10) L Hemoglobin 7.4 G/DL (14.2-18.0) L Hematocrit 22.8 % (42.0-52.0) L Mean Corpuscular Volume 94 FL (80-99) Mean Corpuscular Hemoglobin 30.5 PG (27.0-31.0) Mean Corpuscular Hemoglobin Concent 32.6 G/DL (32.0-36.0) Red Cell Distribution Width 15.8 % (11.6-14.8) H Platelet Count 95 K/UL (150-450) L Mean Platelet Volume 6.0 FL (6.5-10.1) L Neutrophils (%) (Auto) % (45.0-75.0) Lymphocytes (%) (Auto) % (20.0-45.0) Monocytes (%) (Auto) % (1.0-10.0) Eosinophils (%) (Auto) % (0.0-3.0) Basophils (%) (Auto) % (0.0-2.0) Differential Total Cells Counted 100 Neutrophils % (Manual) 76 % (45-75) H Lymphocytes % (Manual) 12 % (20-45) L Monocytes % (Manual) 4 % (1-10) Eosinophils % (Manual) 5 % (0-3) H Basophils % (Manual) 3 % (0-2) H Band Neutrophils 0 % (0-8) Platelet Estimate Decreased L Platelet Morphology Normal Polychromasia 1+ Hypochromasia 2+ Anisocytosis 1+ Prothrombin Time 12.4 SEC (9.30-11.50) H Prothromb Time International Ratio 1.2 (0.9-1.1) H Test 02/06/18 20:30 02/07/18 08:00 White Blood Count 5.3 K/UL (4.8-10.8) 5.1 K/UL (4.8-10.8) Red Blood Count 2.36 M/UL (4.70-6.10) L 2.46 M/UL (4.70-6.10) L Hemoglobin 7.3 G/DL (14.2-18.0) L 7.8 G/DL (14.2-18.0) L Hematocrit 21.9 % (42.0-52.0) L 22.6 % (42.0-52.0) L Mean Corpuscular Volume 93 FL (80-99) 92 FL (80-99) Mean Corpuscular Hemoglobin 31.1 PG (27.0-31.0) H 31.8 PG (27.0-31.0) H Mean Corpuscular Hemoglobin Concent 33.4 G/DL (32.0-36.0) 34.5 G/DL (32.0-36.0) Red Cell Distribution Width 15.6 % (11.6-14.8) H 15.5 % (11.6-14.8) H Platelet Count 84 K/UL (150-450) L 77 K/UL (150-450) L Mean Platelet Volume 6.1 FL (6.5-10.1) L 6.7 FL (6.5-10.1) Neutrophils (%) (Auto) 66.9 % (45.0-75.0) % (45.0-75.0) Lymphocytes (%) (Auto) 19.5 % (20.0-45.0) L % (20.0-45.0) Monocytes (%) (Auto) 9.1 % (1.0-10.0) % (1.0-10.0) Eosinophils (%) (Auto) 3.6 % (0.0-3.0) H % (0.0-3.0) Basophils (%) (Auto) 0.8 % (0.0-2.0) % (0.0-2.0) Activated Partial Thromboplast Time 37 SEC (23-33) H 36 SEC (23-33) H Differential Total Cells Counted 100 Neutrophils % (Manual) 68 % (45-75) Lymphocytes % (Manual) 23 % (20-45) Monocytes % (Manual) 5 % (1-10) Eosinophils % (Manual) 3 % (0-3) Basophils % (Manual) 1 % (0-2) Band Neutrophils 0 % (0-8) Platelet Estimate Decreased L Platelet Morphology Normal Hypochromasia 1+ Anisocytosis 1+ Prothrombin Time 12.2 SEC (9.30-11.50) H Prothromb Time International Ratio 1.2 (0.9-1.1) H Sodium Level 144 MMOL/L (136-145) Potassium Level 3.7 MMOL/L (3.5-5.1) Chloride Level 99 MMOL/L (98-107) Carbon Dioxide Level 39 MMOL/L (21-32) H Anion Gap 6 mmol/L (5-15) Blood Urea Nitrogen 62 mg/dL (7-18) H Creatinine 6.3 MG/DL (0.55-1.30) H Estimat Glomerular Filtration Rate 9.0 mL/min (>60) Glucose Level 97 MG/DL (74-106) Calcium Level 8.2 MG/DL (8.5-10.1) L Total Bilirubin 1.9 MG/DL (0.2-1.0) H Direct Bilirubin 0.6 MG/DL (0.0-0.3) H Aspartate Amino Transf (AST/SGOT) 22 U/L (15-37) Alanine Aminotransferase (ALT/SGPT) 13 U/L (12-78) Alkaline Phosphatase 344 U/L (46-116) H Total Protein 7.2 G/DL (6.4-8.2) Albumin 2.6 G/DL (3.4-5.0) L Globulin 4.6 g/dL Albumin/Globulin Ratio 0.6 (1.0-2.7) L Clement Mcleod MD Feb 07, 2018 10:19
--- NOTE | 2018-02-07 13:41 | Nephrology Progress Note ---
Assessment/Plan Problem List: (1) ESRD (end stage renal disease) on dialysis (2) Acute hyperkalemia (3) Hypertension, uncontrolled (4) Left leg DVT (5) Anemia in chronic kidney disease (CKD) Assessment ESRD, on admission missed dialysis . has high K on admission has fistula right arm Sever Anemia h/o Amyloidosis COPD Plan HD done 02/02 , 02/05, 02/06 next 02/08 Transfused Kayexelate as needed BP control, meds adjusted has IVC filter Neg for pulm emboli- DC heparin Subjective ROS Limited/Unobtainable: No Constitutional: Reports: malaise Objective Objective Last 24 Hour Vital Signs Date Time Temp Pulse Resp B/P (MAP) Pulse Ox O2 Delivery O2 Flow Rate FiO2 02/07/18 12:00 98.8 71 17 138/59 98 Nasal Cannula 3.0 98.8 02/07/18 12:00 71 02/07/18 11:00 70 17 143/70 95 Nasal Cannula 3.0 02/07/18 10:00 71 17 144/71 100 Nasal Cannula 3.0 02/07/18 09:00 74 17 149/61 100 Non-Rebreather 15.0 02/07/18 08:48 169/69 02/07/18 08:47 79 169/69 02/07/18 08:00 98.7 78 16 141/58 100 Non-Rebreather 15.0 98.7 02/07/18 08:00 70 02/07/18 07:49 Non-Rebreather 15.0 100 02/07/18 07:49 99 Non-Rebreather 15.0 100 02/07/18 07:00 76 16 169/69 100 Non-Rebreather 15.0 02/07/18 06:02 154/63 02/07/18 06:00 77 17 154/63 100 Non-Rebreather 15.0 02/07/18 05:00 75 18 143/59 100 Non-Rebreather 15.0 02/07/18 04:00 73 02/07/18 04:00 97.6 73 16 147/61 99 Non-Rebreather 15.0 97.6 02/07/18 03:00 76 16 167/66 100 Non-Rebreather 15.0 02/07/18 02:00 74 15 170/65 100 Non-Rebreather 15.0 4/26/18 01:00 74 16 161/61 100 Non-Rebreather 15.0 02/07/18 00:10 97.8 02/07/18 00:00 71 02/07/18 00:00 98.2 71 16 144/60 100 Non-Rebreather 15.0 98.2 02/06/18 23:00 97.8 76 15 154/60 100 Non-Rebreather 15.0 97.8 02/06/18 22:00 71 16 144/51 100 Non-Rebreather 15.0 02/06/18 21:39 148/57 02/06/18 21:00 73 16 147/48 100 Non-Rebreather 15.0 02/06/18 20:51 Non-Rebreather 15.0 100 02/06/18 20:51 99 Non-Rebreather 15.0 100 02/06/18 20:42 148/64 02/06/18 20:00 72 18 130/61 92 Nasal Cannula 4.0 02/06/18 20:00 72 02/06/18 19:21 97.7 70 20 137/66 Non-Rebreather 15.0 97.7 02/06/18 19:00 70 18 137/66 100 Non-Rebreather 15.0 02/06/18 18:00 68 15 148/59 100 Non-Rebreather 15.0 02/06/18 17:00 75 15 140/67 100 Non-Rebreather 15.0 02/06/18 16:00 Non-Rebreather 15.0 02/06/18 16:00 85 02/06/18 16:00 98.1 83 15 164/87 20 Non-Rebreather 15.0 98.1 02/06/18 16:00 98.2 84 16 164/87 Non-Rebreather 15.0 98.2 02/06/18 15:34 96 Non-Rebreather 15.0 100 02/06/18 15:34 Non-Rebreather 15.0 100 02/06/18 15:00 84 17 166/67 100 Non-Rebreather 15.0 02/06/18 14:00 98.0 86 22 155/71 100 Non-Rebreather 10.0 98.0 02/06/18 14:00 86 Intake and Output 02/06/18 02/07/18 19:00 07:00 Intake Total 350 ml 969.86 ml Output Total 0 ml 3000 ml Balance 350 ml -2030.14 ml Intake Oral 350 ml 390 ml IV Total 229.86 ml Blood Product 350 ml Output Urine Total 0 ml 0 ml Hemodialysis UF 3000 ml Laboratory Tests 02/06/18 14:30: White Blood Count 5.4, Red Blood Count 2.43L, Hemoglobin 7.4L, Hematocrit 22.8L , Mean Corpuscular Volume 94, Mean Corpuscular Hemoglobin 30.5, Mean Corpuscular Hemoglobin Concent 32.6, Red Cell Distribution Width 15.8H, Platelet Count 95L, Mean Platelet Volume 6.0L, Neutrophils (%) (Auto) , Lymphocytes (%) (Auto) , Monocytes (%) (Auto) , Eosinophils (%) (Auto) , Basophils (%) (Auto) , Differential Total Cells Counted 100, Neutrophils % ( Manual) 76H, Lymphocytes % (Manual) 12L, Monocytes % (Manual) 4, Eosinophils % ( Manual) 5H, Basophils % (Manual) 3H, Band Neutrophils 0, Platelet Estimate DecreasedL, Platelet Morphology Normal, Polychromasia 1+, Hypochromasia 2+, Anisocytosis 1+ 02/06/18 16:16: Prothrombin Time 12.4H, Prothromb Time International Ratio 1.2H 02/06/18 20:30: White Blood Count 5.3, Red Blood Count 2.36L, Hemoglobin 7.3L, Hematocrit 21.9L , Mean Corpuscular Volume 93, Mean Corpuscular Hemoglobin 31.1H, Mean Corpuscular Hemoglobin Concent 33.4, Red Cell Distribution Width 15.6H, Platelet Count 84L, Mean Platelet Volume 6.1L, Neutrophils (%) (Auto) 66.9, Lymphocytes (%) (Auto) 19.5L, Monocytes (%) (Auto) 9.1, Eosinophils (%) (Auto) 3.6H, Basophils (%) (Auto) 0.8, Activated Partial Thromboplast Time 37H 02/07/18 08:00: White Blood Count 5.1, Red Blood Count 2.46L, Hemoglobin 7.8L, Hematocrit 22.6L , Mean Corpuscular Volume 92, Mean Corpuscular Hemoglobin 31.8H, Mean Corpuscular Hemoglobin Concent 34.5, Red Cell Distribution Width 15.5H, Platelet Count 77L, Mean Platelet Volume 6.7, Neutrophils (%) (Auto) , Lymphocytes (%) (Auto) , Monocytes (%) (Auto) , Eosinophils (%) (Auto) , Basophils (%) (Auto) , Differential Total Cells Counted 100, Neutrophils % ( Manual) 68, Lymphocytes % (Manual) 23, Monocytes % (Manual) 5, Eosinophils % ( Manual) 3, Basophils % (Manual) 1, Band Neutrophils 0, Platelet Estimate DecreasedL, Platelet Morphology Normal, Hypochromasia 1+, Anisocytosis 1+, Prothrombin Time 12.2H, Prothromb Time International Ratio 1.2H, Activated Partial Thromboplast Time 36H, Sodium Level 144, Potassium Level 3.7, Chloride Level 99, Carbon Dioxide Level 39H, Anion Gap 6, Blood Urea Nitrogen 62H, Creatinine 6.3H, Estimat Glomerular Filtration Rate 9.0, Glucose Level 97, Calcium Level 8.2L, Total Bilirubin 1.9H, Direct Bilirubin 0.6H, Aspartate Amino Transf (AST/SGOT) 22, Alanine Aminotransferase (ALT/SGPT) 13, Alkaline Phosphatase 344H, Total Protein 7.2, Albumin 2.6L, Globulin 4.6, Albumin/ Globulin Ratio 0.6L Height (Feet): 5 Height (Inches): 7.00 Weight (Pounds): 135 General Appearance: no apparent distress Cardiovascular: normal rate Respiratory/Chest: decreased breath sounds Abdomen: soft Objective no change DALTON ROSENTHAL Feb 07, 2018 13:41
--- NOTE | 2018-02-07 13:56 | General Progress Note ---
Assessment/Plan Problem List: (1) Abnormal laboratory test result ICD Codes: R89.9 - Unspecified abnormal finding in specimens from other organs , systems and tissues SNOMED: 608209303 (2) ESRD (end stage renal disease) on dialysis ICD Codes: N18.6 - End stage renal disease; Z99.2 - Dependence on renal dialysis SNOMED: 200197814 (3) Hypertension, uncontrolled ICD Codes: I10 - Essential (primary) hypertension SNOMED: 21379959, 38390293 (4) Symptomatic anemia ICD Codes: D64.9 - Anemia, unspecified SNOMED: 936234180 (5) Acute hyperkalemia ICD Codes: E87.5 - Hyperkalemia SNOMED: 1306772 (6) DVT (deep venous thrombosis) ICD Codes: I82.409 - Acute embolism and thrombosis of unspecified deep veins of unspecified lower extremity SNOMED: 224354854 (7) SOB (shortness of breath) ICD Codes: R06.02 - Shortness of breath SNOMED: 875016782 Status: unchanged Assessment/Plan ot pt diet o2 pulm tx gi/heme f/u anticoag pulm f/u cbc bmp am ltach eval Subjective Constitutional: Reports: weakness Allergies: Coded Allergies: No Known Allergies (Unverified , 02/02/18) All Systems: reviewed and negative except above Subjective o2nc calm in icu Objective Last 24 Hour Vital Signs Date Time Temp Pulse Resp B/P (MAP) Pulse Ox O2 Delivery O2 Flow Rate FiO2 02/07/18 13:53 180/67 02/07/18 13:53 180/67 02/07/18 12:00 98.8 71 17 138/59 98 Nasal Cannula 3.0 98.8 02/07/18 12:00 71 02/07/18 11:00 70 17 143/70 95 Nasal Cannula 3.0 02/07/18 10:00 71 17 144/71 100 Nasal Cannula 3.0 02/07/18 09:00 74 17 149/61 100 Non-Rebreather 15.0 02/07/18 08:48 169/69 02/07/18 08:47 79 169/69 02/07/18 08:00 98.7 78 16 141/58 100 Non-Rebreather 15.0 98.7 02/07/18 08:00 70 02/07/18 07:49 Non-Rebreather 15.0 100 02/07/18 07:49 99 Non-Rebreather 15.0 100 02/07/18 07:00 76 16 169/69 100 Non-Rebreather 15.0 02/07/18 06:02 154/63 02/07/18 06:00 77 17 154/63 100 Non-Rebreather 15.0 02/07/18 05:00 75 18 143/59 100 Non-Rebreather 15.0 02/07/18 04:00 73 02/07/18 04:00 97.6 73 16 147/61 99 Non-Rebreather 15.0 97.6 02/07/18 03:00 76 16 167/66 100 Non-Rebreather 15.0 02/07/18 02:00 74 15 170/65 100 Non-Rebreather 15.0 02/07/18 01:00 74 16 161/61 100 Non-Rebreather 15.0 02/07/18 00:10 97.8 02/07/18 00:00 71 02/07/18 00:00 98.2 71 16 144/60 100 Non-Rebreather 15.0 98.2 02/06/18 23:00 97.8 76 15 154/60 100 Non-Rebreather 15.0 97.8 02/06/18 22:00 71 16 144/51 100 Non-Rebreather 15.0 02/06/18 21:39 148/57 02/06/18 21:00 73 16 147/48 100 Non-Rebreather 15.0 02/06/18 20:51 Non-Rebreather 15.0 100 02/06/18 20:51 99 Non-Rebreather 15.0 100 02/06/18 20:42 148/64 02/06/18 20:00 72 18 130/61 92 Nasal Cannula 4.0 02/06/18 20:00 72 02/06/18 19:21 97.7 70 20 137/66 Non-Rebreather 15.0 97.7 02/06/18 19:00 70 18 137/66 100 Non-Rebreather 15.0 02/06/18 18:00 68 15 148/59 100 Non-Rebreather 15.0 02/06/18 17:00 75 15 140/67 100 Non-Rebreather 15.0 02/06/18 16:00 Non-Rebreather 15.0 02/06/18 16:00 85 02/06/18 16:00 98.1 83 15 164/87 20 Non-Rebreather 15.0 98.1 02/06/18 16:00 98.2 84 16 164/87 Non-Rebreather 15.0 98.2 02/06/18 15:34 96 Non-Rebreather 15.0 100 02/06/18 15:34 Non-Rebreather 15.0 100 02/06/18 15:00 84 17 166/67 100 Non-Rebreather 15.0 02/06/18 14:00 98.0 86 22 155/71 100 Non-Rebreather 10.0 98.0 02/06/18 14:00 86 Intake and Output 02/06/18 02/07/18 19:00 07:00 Intake Total 350 ml 969.86 ml Output Total 0 ml 3000 ml Balance 350 ml -2030.14 ml Intake Oral 350 ml 390 ml IV Total 229.86 ml Blood Product 350 ml Output Urine Total 0 ml 0 ml Hemodialysis UF 3000 ml Laboratory Tests 02/06/18 14:30: White Blood Count 5.4, Red Blood Count 2.43L, Hemoglobin 7.4L, Hematocrit 22.8L , Mean Corpuscular Volume 94, Mean Corpuscular Hemoglobin 30.5, Mean Corpuscular Hemoglobin Concent 32.6, Red Cell Distribution Width 15.8H, Platelet Count 95L, Mean Platelet Volume 6.0L, Neutrophils (%) (Auto) , Lymphocytes (%) (Auto) , Monocytes (%) (Auto) , Eosinophils (%) (Auto) , Basophils (%) (Auto) , Differential Total Cells Counted 100, Neutrophils % ( Manual) 76H, Lymphocytes % (Manual) 12L, Monocytes % (Manual) 4, Eosinophils % ( Manual) 5H, Basophils % (Manual) 3H, Band Neutrophils 0, Platelet Estimate DecreasedL, Platelet Morphology Normal, Polychromasia 1+, Hypochromasia 2+, Anisocytosis 1+ 02/06/18 16:16: Prothrombin Time 12.4H, Prothromb Time International Ratio 1.2H 02/06/18 20:30: White Blood Count 5.3, Red Blood Count 2.36L, Hemoglobin 7.3L, Hematocrit 21.9L , Mean Corpuscular Volume 93, Mean Corpuscular Hemoglobin 31.1H, Mean Corpuscular Hemoglobin Concent 33.4, Red Cell Distribution Width 15.6H, Platelet Count 84L, Mean Platelet Volume 6.1L, Neutrophils (%) (Auto) 66.9, Lymphocytes (%) (Auto) 19.5L, Monocytes (%) (Auto) 9.1, Eosinophils (%) (Auto) 3.6H, Basophils (%) (Auto) 0.8, Activated Partial Thromboplast Time 37H 02/07/18 08:00: White Blood Count 5.1, Red Blood Count 2.46L, Hemoglobin 7.8L, Hematocrit 22.6L , Mean Corpuscular Volume 92, Mean Corpuscular Hemoglobin 31.8H, Mean Corpuscular Hemoglobin Concent 34.5, Red Cell Distribution Width 15.5H, Platelet Count 77L, Mean Platelet Volume 6.7, Neutrophils (%) (Auto) , Lymphocytes (%) (Auto) , Monocytes (%) (Auto) , Eosinophils (%) (Auto) , Basophils (%) (Auto) , Differential Total Cells Counted 100, Neutrophils % ( Manual) 68, Lymphocytes % (Manual) 23, Monocytes % (Manual) 5, Eosinophils % ( Manual) 3, Basophils % (Manual) 1, Band Neutrophils 0, Platelet Estimate DecreasedL, Platelet Morphology Normal, Hypochromasia 1+, Anisocytosis 1+, Prothrombin Time 12.2H, Prothromb Time International Ratio 1.2H, Activated Partial Thromboplast Time 36H, Sodium Level 144, Potassium Level 3.7, Chloride Level 99, Carbon Dioxide Level 39H, Anion Gap 6, Blood Urea Nitrogen 62H, Creatinine 6.3H, Estimat Glomerular Filtration Rate 9.0, Glucose Level 97, Calcium Level 8.2L, Total Bilirubin 1.9H, Direct Bilirubin 0.6H, Aspartate Amino Transf (AST/SGOT) 22, Alanine Aminotransferase (ALT/SGPT) 13, Alkaline Phosphatase 344H, Total Protein 7.2, Albumin 2.6L, Globulin 4.6, Albumin/ Globulin Ratio 0.6L Height (Feet): 5 Height (Inches): 7.00 Weight (Pounds): 135 General Appearance: lethargic EENT: normal ENT inspection Neck: normal alignment Cardiovascular: normal peripheral pulses, normal rate, regular rhythm Respiratory/Chest: chest wall non-tender, decreased breath sounds Extremities: normal inspection Edema: no edema noted Arm (L), no edema noted Arm (R), no edema noted Leg (L), no edema noted Leg (R), no edema noted Pedal (L), no edema noted Pedal (R), no edema noted Generalized Neurologic: responsive, motor weakness Skin: normal pigmentation, warm/dry PEDRO HUTSON Feb 07, 2018 13:56
--- NOTE | 2018-02-07 14:45 | Progress Note ---
DATE: 02/07/2018 SUBJECTIVE: This is a 63-year-old male with anemia and gastrointestinal bleeding. The patient has confusion, altered mental status, worsened by stress of his medical illness with . That is why, attending physician has requested daily psychiatric consultation. MENTAL STATUS EXAMINATION: This is a 63-year-old male. Appearance is disheveled. Attitude irritable and agitated. Affect guarded and restricted. Intellect poor. Mood depressed, anxious. Motor activity, psychomotor agitation. Attention span is poor. Orientation x2. Speech is pressured. Thought process, disorganized and illogical. Thought content, auditory hallucinations and paranoid delusions. Insight and judgment is poor. DIAGNOSIS: Major depression with psychotic features. PLAN: Treat him with Neurontin 300 mg a day, Ativan 1 mg q.6 hours p.r.n. anxiety and agitation, Seroquel 25 mg at bedtime. An 18 to 20 minutes supportive therapy provided. Chart reviewed and discussed with staff. Rony Corral M.D. DR: EDDY JOB#: [id number] CC:
--- NOTE | 2018-02-07 14:48 | Diagnostic Imaging Report ---
Indication: Shortness of breath Technique: One view of the chest Comparison: 02/06/2018 Findings: Again demonstrated is a right-sided pleural effusion, appearing slightly increased from the prior exam although this may be an artifact of different rotation. Interstitial and airspace disease appears stable or minimally improved. Rounded opacity in right midlung probably reflect intrafissural fluid or focal airspace consolidation. The heart is enlarged. Impression: Stable or slightly increased right-sided pleural effusion. Slightly improved bilateral interstitial and airspace edema, over one day
[2018-02-07] MEDS ORDERED: DiphenhydrAMINE 50mg/ml Inj IVP PRN (15:30)
[2018-02-07] MEDS ORDERED: LORazepam 1mg tab ORAL PRN (16:15)
[2018-02-07] MEDS ORDERED: Warfarin Sodium 5mg ORAL ONE (17:00)
--- NOTE | 2018-02-07 17:15 | Progress Note ---
DATE: 02/07/2018 SUBJECTIVE: This is a 63-year-old male patient with anemia and GI bleeding. The patient continues to have some confusion, disorganized thought process, and mood lability. No logical plan for his own self-care. Feelings of helplessness, hopelessness, low energy, poor appetite, and . He has a decline in his cognition, worsened by stress of his medical illness. That is why, his attending physician has requested daily psychiatric consultation. MENTAL STATUS EXAMINATION: This is a 63-year-old male. Appearance is disheveled. Attitude, irritable and agitated. Affect, guarded and restricted. Intellect poor. Mood depressed and anxious. Motor activity, psychomotor agitation. Attention span is poor. Orientation x2. Speech is pressured. Thought process, disorganized. Thought content, auditory hallucinations and paranoid delusions. Insight and judgment is poor. DIAGNOSIS: Major depressive disorder with psychotic features. PLAN: Treat him with Neurontin 300 mg three times is a day, Ativan 1 mg every 6 hours p.r.n. anxiety and agitation, Seroquel 25 mg at bedtime. About 18 to 20 minutes of supportive psychotherapy provided. Chart reviewed. Discussed with staff. Seen and assessed at bedside. Rony Corral M.D. DR: PAM JOB#: [id number] CC:
[2018-02-07 17:29] LABS: HEMATOCRIT 22.1 % (42.0-52.0); HEMOGLOBIN 7.5 G/DL (14.2-18.0); MEAN CORPUSCULAR VOLUME 91 FL (80-99); PLATELET COUNT 73 K/UL (150-450); RED BLOOD COUNT 2.43 M/UL (4.70-6.10); RED CELL DISTRIBUTION WIDTH 15.6 % (11.6-14.8); WHITE BLOOD COUNT 5.9 K/UL (4.8-10.8)
--- NOTE | 2018-02-07 17:37 | GI Progress Note ---
Assessment/Plan Problems: (1) Abnormal LFTs ICD Codes: R94.5 - Abnormal results of liver function studies SNOMED: 609702032 (2) Symptomatic anemia ICD Codes: D64.9 - Anemia, unspecified SNOMED: 776654423 (3) ESRD (end stage renal disease) on dialysis ICD Codes: N18.6 - End stage renal disease; Z99.2 - Dependence on renal dialysis SNOMED: 861001287 Status: unchanged Status Narrative Discussed with Dr. Matos. Assessment/Plan hx of EGD/colonoscopy 3 months ago per patient, cannot recall location. iron panel WNL OB stool negative monitor H&H, prn transfusions ppi thiamine fu labs outpatient GI procedures Subjective Subjective denies abdominal pain had EGD/colonoscopy x3 months Objective Last 24 Hour Vital Signs Date Time Temp Pulse Resp B/P (MAP) Pulse Ox O2 Delivery O2 Flow Rate FiO2 02/07/18 17:17 155/79 02/07/18 16:00 72 02/07/18 15:00 98.5 73 16 155/50 94 Nasal Cannula 3.0 98.5 02/07/18 14:00 75 17 153/63 94 Nasal Cannula 3.0 02/07/18 13:53 180/67 02/07/18 13:53 180/67 02/07/18 13:00 75 17 180/67 91 Nasal Cannula 3.0 02/07/18 12:00 98.8 71 17 138/59 98 Nasal Cannula 3.0 98.8 02/07/18 12:00 71 02/07/18 11:00 70 17 143/70 95 Nasal Cannula 3.0 02/07/18 10:00 71 17 144/71 100 Nasal Cannula 3.0 02/07/18 09:00 74 17 149/61 100 Non-Rebreather 15.0 02/07/18 08:48 169/69 02/07/18 08:47 79 169/69 02/07/18 08:00 98.7 78 16 141/58 100 Non-Rebreather 15.0 98.7 02/07/18 08:00 70 02/07/18 07:49 Non-Rebreather 15.0 100 02/07/18 07:49 99 Non-Rebreather 15.0 100 02/07/18 07:00 76 16 169/69 100 Non-Rebreather 15.0 02/07/18 06:02 154/63 02/07/18 06:00 77 17 154/63 100 Non-Rebreather 15.0 02/07/18 05:00 75 18 143/59 100 Non-Rebreather 15.0 02/07/18 04:00 73 02/07/18 04:00 97.6 73 16 147/61 99 Non-Rebreather 15.0 97.6 02/07/18 03:00 76 16 167/66 100 Non-Rebreather 15.0 02/07/18 02:00 74 15 170/65 100 Non-Rebreather 15.0 02/07/18 01:00 74 16 161/61 100 Non-Rebreather 15.0 02/07/18 00:10 97.8 02/07/18 00:00 71 02/07/18 00:00 98.2 71 16 144/60 100 Non-Rebreather 15.0 98.2 02/06/18 23:00 97.8 76 15 154/60 100 Non-Rebreather 15.0 97.8 02/06/18 22:00 71 16 144/51 100 Non-Rebreather 15.0 02/06/18 21:39 148/57 02/06/18 21:00 73 16 147/48 100 Non-Rebreather 15.0 02/06/18 20:51 Non-Rebreather 15.0 100 02/06/18 20:51 99 Non-Rebreather 15.0 100 02/06/18 20:42 148/64 02/06/18 20:00 72 18 130/61 92 Nasal Cannula 4.0 02/06/18 20:00 72 02/06/18 19:21 97.7 70 20 137/66 Non-Rebreather 15.0 97.7 02/06/18 19:00 70 18 137/66 100 Non-Rebreather 15.0 02/06/18 18:00 68 15 148/59 100 Non-Rebreather 15.0 Intake and Output 02/06/18 02/07/18 19:00 07:00 Intake Total 350 ml 969.86 ml Output Total 0 ml 3000 ml Balance 350 ml -2030.14 ml Intake Oral 350 ml 390 ml IV Total 229.86 ml Blood Product 350 ml Output Urine Total 0 ml 0 ml Hemodialysis UF 3000 ml Laboratory Tests Test 02/06/18 20:30 02/07/18 08:00 02/07/18 17:15 White Blood Count 5.3 K/UL (4.8-10.8) 5.1 K/UL (4.8-10.8) 5.9 K/UL (4.8-10.8) Red Blood Count 2.36 M/UL (4.70-6.10) L 2.46 M/UL (4.70-6.10) L 2.43 M/UL (4.70-6.10) L Hemoglobin 7.3 G/DL (14.2-18.0) L 7.8 G/DL (14.2-18.0) L 7.5 G/DL (14.2-18.0) L Hematocrit 21.9 % (42.0-52.0) L 22.6 % (42.0-52.0) L 22.1 % (42.0-52.0) L Mean Corpuscular Volume 93 FL (80-99) 92 FL (80-99) 91 FL (80-99) Mean Corpuscular Hemoglobin 31.1 PG (27.0-31.0) H 31.8 PG (27.0-31.0) H 30.7 PG (27.0-31.0) Mean Corpuscular Hemoglobin Concent 33.4 G/DL (32.0-36.0) 34.5 G/DL (32.0-36.0) 33.8 G/DL (32.0-36.0) Red Cell Distribution Width 15.6 % (11.6-14.8) H 15.5 % (11.6-14.8) H 15.6 % (11.6-14.8) H Platelet Count 84 K/UL (150-450) L 77 K/UL (150-450) L 73 K/UL (150-450) L Mean Platelet Volume 6.1 FL (6.5-10.1) L 6.7 FL (6.5-10.1) 6.6 FL (6.5-10.1) Neutrophils (%) (Auto) 66.9 % (45.0-75.0) % (45.0-75.0) % (45.0-75.0) Lymphocytes (%) (Auto) 19.5 % (20.0-45.0) L % (20.0-45.0) % (20.0-45.0) Monocytes (%) (Auto) 9.1 % (1.0-10.0) % (1.0-10.0) % (1.0-10.0) Eosinophils (%) (Auto) 3.6 % (0.0-3.0) H % (0.0-3.0) % (0.0-3.0) Basophils (%) (Auto) 0.8 % (0.0-2.0) % (0.0-2.0) % (0.0-2.0) Activated Partial Thromboplast Time 37 SEC (23-33) H 36 SEC (23-33) H Differential Total Cells Counted 100 Neutrophils % (Manual) 68 % (45-75) Pending Lymphocytes % (Manual) 23 % (20-45) Pending Monocytes % (Manual) 5 % (1-10) Eosinophils % (Manual) 3 % (0-3) Basophils % (Manual) 1 % (0-2) Band Neutrophils 0 % (0-8) Platelet Estimate Decreased L Pending Platelet Morphology Normal Pending Hypochromasia 1+ Anisocytosis 1+ Prothrombin Time 12.2 SEC (9.30-11.50) H Prothromb Time International Ratio 1.2 (0.9-1.1) H Sodium Level 144 MMOL/L (136-145) Potassium Level 3.7 MMOL/L (3.5-5.1) Chloride Level 99 MMOL/L (98-107) Carbon Dioxide Level 39 MMOL/L (21-32) H Anion Gap 6 mmol/L (5-15) Blood Urea Nitrogen 62 mg/dL (7-18) H Creatinine 6.3 MG/DL (0.55-1.30) H Estimat Glomerular Filtration Rate 9.0 mL/min (>60) Glucose Level 97 MG/DL (74-106) Calcium Level 8.2 MG/DL (8.5-10.1) L Total Bilirubin 1.9 MG/DL (0.2-1.0) H Direct Bilirubin 0.6 MG/DL (0.0-0.3) H Aspartate Amino Transf (AST/SGOT) 22 U/L (15-37) Alanine Aminotransferase (ALT/SGPT) 13 U/L (12-78) Alkaline Phosphatase 344 U/L (46-116) H Total Protein 7.2 G/DL (6.4-8.2) Albumin 2.6 G/DL (3.4-5.0) L Globulin 4.6 g/dL Albumin/Globulin Ratio 0.6 (1.0-2.7) L Heparin-PF4 Antibody Screen Pending Height (Feet): 5 Height (Inches): 7.00 Weight (Pounds): 135 General Appearance: WD/WN, no apparent distress, alert Cardiovascular: normal rate Respiratory/Chest: normal breath sounds, no respiratory distress Abdominal Exam: normal bowel sounds, non tender, soft Extremities: normal range of motion, non-tender Freya Aldana N.P. Feb 07, 2018 17:37
--- NOTE | 2018-02-07 18:59 | Cardiology Progress Note ---
Assessment/Plan Assessment/Plan 1. Hypertension. 2. End-stage renal disease, on hemodialysis. 3. Anemia. 4. History of GI bleed secondary to AVMs. 5. Acute deep venous thrombosis, left leg. 6. History of femoral neck fracture s/p prbc yest got sob trasferd to icu nwo s/p 3000 cc uf ctpa neg for pe has ivc filter inplace already dilaysis / uf looks adn feel better cxr reviewed repeat ekg Subjective Cardiovascular: Denies: chest pain, lightheadedness Respiratory: Denies: cough, shortness of breath Gastrointestinal/Abdominal: Denies: abdominal pain Genitourinary: Denies: burning Objective Last 24 Hour Vital Signs Date Time Temp Pulse Resp B/P (MAP) Pulse Ox O2 Delivery O2 Flow Rate FiO2 02/07/18 17:17 155/79 02/07/18 16:00 72 02/07/18 16:00 97.7 74 20 154/61 92 Nasal Cannula 3.0 97.7 02/07/18 15:00 98.5 73 16 155/50 94 Nasal Cannula 3.0 98.5 02/07/18 14:00 75 17 153/63 94 Nasal Cannula 3.0 02/07/18 13:53 180/67 02/07/18 13:53 180/67 02/07/18 13:00 75 17 180/67 91 Nasal Cannula 3.0 02/07/18 12:00 98.8 71 17 138/59 98 Nasal Cannula 3.0 98.8 02/07/18 12:00 71 02/07/18 11:00 70 17 143/70 95 Nasal Cannula 3.0 02/07/18 10:00 71 17 144/71 100 Nasal Cannula 3.0 02/07/18 09:00 74 17 149/61 100 Non-Rebreather 15.0 02/07/18 08:48 169/69 02/07/18 08:47 79 169/69 02/07/18 08:00 98.7 78 16 141/58 100 Non-Rebreather 15.0 98.7 02/07/18 08:00 70 02/07/18 07:49 Non-Rebreather 15.0 100 02/07/18 07:49 99 Non-Rebreather 15.0 100 02/07/18 07:00 76 16 169/69 100 Non-Rebreather 15.0 02/07/18 06:02 154/63 02/07/18 06:00 77 17 154/63 100 Non-Rebreather 15.0 02/07/18 05:00 75 18 143/59 100 Non-Rebreather 15.0 02/07/18 04:00 73 02/07/18 04:00 97.6 73 16 147/61 99 Non-Rebreather 15.0 97.6 02/07/18 03:00 76 16 167/66 100 Non-Rebreather 15.0 02/07/18 02:00 74 15 170/65 100 Non-Rebreather 15.0 02/07/18 01:00 74 16 161/61 100 Non-Rebreather 15.0 02/07/18 00:10 97.8 02/07/18 00:00 71 02/07/18 00:00 98.2 71 16 144/60 100 Non-Rebreather 15.0 98.2 02/06/18 23:00 97.8 76 15 154/60 100 Non-Rebreather 15.0 97.8 02/06/18 22:00 71 16 144/51 100 Non-Rebreather 15.0 02/06/18 21:39 148/57 02/06/18 21:00 73 16 147/48 100 Non-Rebreather 15.0 02/06/18 20:51 Non-Rebreather 15.0 100 02/06/18 20:51 99 Non-Rebreather 15.0 100 02/06/18 20:42 148/64 02/06/18 20:00 72 18 130/61 92 Nasal Cannula 4.0 02/06/18 20:00 72 02/06/18 19:21 97.7 70 20 137/66 Non-Rebreather 15.0 97.7 02/06/18 19:00 70 18 137/66 100 Non-Rebreather 15.0 General Appearance: no apparent distress, alert Neck: supple Cardiovascular: normal rate, regular rhythm Respiratory/Chest: lungs clear Abdomen: normal bowel sounds, non tender, soft Extremities: no swelling Intake and Output 02/06/18 02/07/18 19:00 07:00 Intake Total 350 ml 969.86 ml Output Total 0 ml 3000 ml Balance 350 ml -2030.14 ml Intake Oral 350 ml 390 ml IV Total 229.86 ml Blood Product 350 ml Output Urine Total 0 ml 0 ml Hemodialysis UF 3000 ml Laboratory Tests Test 02/06/18 20:30 02/07/18 08:00 02/07/18 17:15 White Blood Count 5.3 K/UL (4.8-10.8) 5.1 K/UL (4.8-10.8) 5.9 K/UL (4.8-10.8) Red Blood Count 2.36 M/UL (4.70-6.10) L 2.46 M/UL (4.70-6.10) L 2.43 M/UL (4.70-6.10) L Hemoglobin 7.3 G/DL (14.2-18.0) L 7.8 G/DL (14.2-18.0) L 7.5 G/DL (14.2-18.0) L Hematocrit 21.9 % (42.0-52.0) L 22.6 % (42.0-52.0) L 22.1 % (42.0-52.0) L Mean Corpuscular Volume 93 FL (80-99) 92 FL (80-99) 91 FL (80-99) Mean Corpuscular Hemoglobin 31.1 PG (27.0-31.0) H 31.8 PG (27.0-31.0) H 30.7 PG (27.0-31.0) Mean Corpuscular Hemoglobin Concent 33.4 G/DL (32.0-36.0) 34.5 G/DL (32.0-36.0) 33.8 G/DL (32.0-36.0) Red Cell Distribution Width 15.6 % (11.6-14.8) H 15.5 % (11.6-14.8) H 15.6 % (11.6-14.8) H Platelet Count 84 K/UL (150-450) L 77 K/UL (150-450) L 73 K/UL (150-450) L Mean Platelet Volume 6.1 FL (6.5-10.1) L 6.7 FL (6.5-10.1) 6.6 FL (6.5-10.1) Neutrophils (%) (Auto) 66.9 % (45.0-75.0) % (45.0-75.0) % (45.0-75.0) Lymphocytes (%) (Auto) 19.5 % (20.0-45.0) L % (20.0-45.0) % (20.0-45.0) Monocytes (%) (Auto) 9.1 % (1.0-10.0) % (1.0-10.0) % (1.0-10.0) Eosinophils (%) (Auto) 3.6 % (0.0-3.0) H % (0.0-3.0) % (0.0-3.0) Basophils (%) (Auto) 0.8 % (0.0-2.0) % (0.0-2.0) % (0.0-2.0) Activated Partial Thromboplast Time 37 SEC (23-33) H 36 SEC (23-33) H Differential Total Cells Counted 100 Neutrophils % (Manual) 68 % (45-75) Pending Lymphocytes % (Manual) 23 % (20-45) Pending Monocytes % (Manual) 5 % (1-10) Eosinophils % (Manual) 3 % (0-3) Basophils % (Manual) 1 % (0-2) Band Neutrophils 0 % (0-8) Platelet Estimate Decreased L Pending Platelet Morphology Normal Pending Hypochromasia 1+ Anisocytosis 1+ Prothrombin Time 12.2 SEC (9.30-11.50) H Prothromb Time International Ratio 1.2 (0.9-1.1) H Sodium Level 144 MMOL/L (136-145) Potassium Level 3.7 MMOL/L (3.5-5.1) Chloride Level 99 MMOL/L (98-107) Carbon Dioxide Level 39 MMOL/L (21-32) H Anion Gap 6 mmol/L (5-15) Blood Urea Nitrogen 62 mg/dL (7-18) H Creatinine 6.3 MG/DL (0.55-1.30) H Estimat Glomerular Filtration Rate 9.0 mL/min (>60) Glucose Level 97 MG/DL (74-106) Calcium Level 8.2 MG/DL (8.5-10.1) L Total Bilirubin 1.9 MG/DL (0.2-1.0) H Direct Bilirubin 0.6 MG/DL (0.0-0.3) H Aspartate Amino Transf (AST/SGOT) 22 U/L (15-37) Alanine Aminotransferase (ALT/SGPT) 13 U/L (12-78) Alkaline Phosphatase 344 U/L (46-116) H Total Protein 7.2 G/DL (6.4-8.2) Albumin 2.6 G/DL (3.4-5.0) L Globulin 4.6 g/dL Albumin/Globulin Ratio 0.6 (1.0-2.7) L Heparin-PF4 Antibody Screen Pending JACINTO CORONA Feb 07, 2018 18:59
[2018-02-07] MEDS ORDERED: Zolpidem 5mg tab ORAL PRN (21:00)
[2018-02-07] MEDS ORDERED: Iron Sucrose 100 MG in NS 55 ML IV SCH ×4 (21:00)
--- NOTE | 2018-02-07 23:49 | General Progress Note ---
Assessment/Plan Assessment/Plan IMPRESSION: 1. Acute deep venous thrombosis, left lower extremities. 2. Status post inferior vena cava filter placement. 3. Anticoagulation with Coumadin. 4. Anticoagulation with IV heparin. 5. History of gastrointestinal bleed. 6. Anemia of kidney disease. 7. Anemia of chronic disease. 8. Decreased hemoglobin and hematocrit, rule out gastrointestinal bleed. 9. End-stage renal disease, hemodialysis dependent. 10. History of femoral neck fracture. 11. Hypertension. 12. Acute respiratory failure. 13. Pulmonary edema. 14. Malnutrition. 15. Failure to thrive. 16. Chronic obstructive pulmonary disease. 17. History of polysubstance abuse. 18. Benign prostatic hypertrophy. 19. Fluid overload. 20. History of hepatitis C. 21. History of posttraumatic stress disorder. 22. History of smoking. RECOMMENDATIONS: 1. Watch count. 2. Watch coagulopathy. 3. PRBC transfusion p.r.n. basis. 4. Heparin IV. 5. Coumadin p.o. 6. Procrit subcutaneously. 7. Iron IV. 8. Cardiology followup. 9. Pulmonary followup. 10. Skin care. 11. Nutrition. 12. Discussed with the staff. Subjective Date patient seen: Feb 07, 2018 Constitutional: Denies: no symptoms, chills, diaphoresis, fever, malaise, weakness, other HEENT: Denies: no symptoms, eye pain, blurred vision, tearing, double vision, ear pain, ear discharge, nose pain, nose congestion, throat pain, throat swelling, mouth pain, mouth swelling, other Cardiovascular: Denies: no symptoms, chest pain, edema, irregular heart rate, lightheadedness, palpitations, syncope, other Respiratory: Denies: no symptoms, cough, orthopnea, shortness of breath, SOB with excertion, SOB at rest, sputum, stridor, wheezing, other Gastrointestinal/Abdominal: Denies: no symptoms, abdomen distended, abdominal pain, black stools, tarry stools, blood in stool, constipated, diarrhea, difficulty swallowing, nausea, poor appetite, poor fluid intake, rectal bleeding , vomiting, other Genitourinary: Denies: no symptoms, burning, discharge, frequency, flank pain, hematuria, incontinence, pain, urgency, other Neurologic/Psychiatric: Denies: no symptoms, anxiety, depressed, emotional problems, headache, numbness, paresthesia, pre-existing deficit, seizure, tingling, tremors, weakness, other Hematologic/Lymphatic: Reports: anemia Allergies: Coded Allergies: No Known Allergies (Unverified , 02/02/18) Subjective Some sob. On anticoagulation for DVT. Resting in bed. Objective Last 24 Hour Vital Signs Date Time Temp Pulse Resp B/P (MAP) Pulse Ox O2 Delivery O2 Flow Rate FiO2 02/07/18 21:37 138/74 02/07/18 21:36 138/74 02/07/18 19:30 Nasal Cannula 3.0 32 02/07/18 19:30 95 Nasal Cannula 3.0 32 02/07/18 17:17 155/79 02/07/18 16:00 72 02/07/18 16:00 97.7 74 20 154/61 92 Nasal Cannula 3.0 97.7 02/07/18 15:00 98.5 73 16 155/50 94 Nasal Cannula 3.0 98.5 02/07/18 14:00 75 17 153/63 94 Nasal Cannula 3.0 02/07/18 13:53 180/67 02/07/18 13:53 180/67 02/07/18 13:00 75 17 180/67 91 Nasal Cannula 3.0 02/07/18 12:00 98.8 71 17 138/59 98 Nasal Cannula 3.0 98.8 02/07/18 12:00 71 02/07/18 11:00 70 17 143/70 95 Nasal Cannula 3.0 02/07/18 10:00 71 17 144/71 100 Nasal Cannula 3.0 02/07/18 09:00 74 17 149/61 100 Non-Rebreather 15.0 02/07/18 08:48 169/69 02/07/18 08:47 79 169/69 02/07/18 08:00 98.7 78 16 141/58 100 Non-Rebreather 15.0 98.7 02/07/18 08:00 70 02/07/18 07:49 Non-Rebreather 15.0 100 02/07/18 07:49 99 Non-Rebreather 15.0 100 02/07/18 07:00 76 16 169/69 100 Non-Rebreather 15.0 02/07/18 06:02 154/63 02/07/18 06:00 77 17 154/63 100 Non-Rebreather 15.0 4/26/18 05:00 75 18 143/59 100 Non-Rebreather 15.0 02/07/18 04:00 73 02/07/18 04:00 97.6 73 16 147/61 99 Non-Rebreather 15.0 97.6 02/07/18 03:00 76 16 167/66 100 Non-Rebreather 15.0 02/07/18 02:00 74 15 170/65 100 Non-Rebreather 15.0 02/07/18 01:00 74 16 161/61 100 Non-Rebreather 15.0 02/07/18 00:10 97.8 02/07/18 00:00 71 02/07/18 00:00 98.2 71 16 144/60 100 Non-Rebreather 15.0 98.2 Intake and Output 02/06/18 02/07/18 19:00 07:00 Intake Total 350 ml 969.86 ml Output Total 0 ml 3000 ml Balance 350 ml -2030.14 ml Intake Oral 350 ml 390 ml IV Total 229.86 ml Blood Product 350 ml Output Urine Total 0 ml 0 ml Hemodialysis UF 3000 ml Laboratory Tests 02/07/18 08:00: White Blood Count 5.1, Red Blood Count 2.46L, Hemoglobin 7.8L, Hematocrit 22.6L , Mean Corpuscular Volume 92, Mean Corpuscular Hemoglobin 31.8H, Mean Corpuscular Hemoglobin Concent 34.5, Red Cell Distribution Width 15.5H, Platelet Count 77L, Mean Platelet Volume 6.7, Neutrophils (%) (Auto) , Lymphocytes (%) (Auto) , Monocytes (%) (Auto) , Eosinophils (%) (Auto) , Basophils (%) (Auto) , Differential Total Cells Counted 100, Neutrophils % ( Manual) 68, Lymphocytes % (Manual) 23, Monocytes % (Manual) 5, Eosinophils % ( Manual) 3, Basophils % (Manual) 1, Band Neutrophils 0, Platelet Estimate DecreasedL, Platelet Morphology Normal, Hypochromasia 1+, Anisocytosis 1+, Prothrombin Time 12.2H, Prothromb Time International Ratio 1.2H, Activated Partial Thromboplast Time 36H, Sodium Level 144, Potassium Level 3.7, Chloride Level 99, Carbon Dioxide Level 39H, Anion Gap 6, Blood Urea Nitrogen 62H, Creatinine 6.3H, Estimat Glomerular Filtration Rate 9.0, Glucose Level 97, Calcium Level 8.2L, Total Bilirubin 1.9H, Direct Bilirubin 0.6H, Aspartate Amino Transf (AST/SGOT) 22, Alanine Aminotransferase (ALT/SGPT) 13, Alkaline Phosphatase 344H, Total Protein 7.2, Albumin 2.6L, Globulin 4.6, Albumin/ Globulin Ratio 0.6L 02/07/18 17:15: White Blood Count 5.9, Red Blood Count 2.43L, Hemoglobin 7.5L, Hematocrit 22.1L , Mean Corpuscular Volume 91, Mean Corpuscular Hemoglobin 30.7, Mean Corpuscular Hemoglobin Concent 33.8, Red Cell Distribution Width 15.6H, Platelet Count 73L, Mean Platelet Volume 6.6, Neutrophils (%) (Auto) , Lymphocytes (%) (Auto) , Monocytes (%) (Auto) , Eosinophils (%) (Auto) , Basophils (%) (Auto) , Differential Total Cells Counted 100, Neutrophils % ( Manual) 73, Lymphocytes % (Manual) 19L, Monocytes % (Manual) 6, Eosinophils % ( Manual) 2, Basophils % (Manual) 0, Band Neutrophils 0, Platelet Estimate DecreasedL, Platelet Morphology Normal, Hypochromasia 1+, Anisocytosis 1+, Indirect Platelet-Bound IgG Ab [Pending], Anti-Platelet Glycoprotein IIb/IIIa [ Pending], Anti-Platelet Glycoprotein Ia/IIA [Pending], Anti-Platelet Glycoprotein Ib/IX [Pending], Heparin-PF4 Antibody Screen [Pending] Height (Feet): 5 Height (Inches): 7.00 Weight (Pounds): 135 General Appearance: no apparent distress Cardiovascular: normal rate, regular rhythm Respiratory/Chest: decreased breath sounds Abdomen: non tender, soft Edema: trace edema LELO BUTLER Feb 07, 2018 23:49
[2018-02-08] VITALS (8 sets, daily range): BP systolic 144–198; BP diastolic 55–96
[2018-02-08 05:54] LABS: HEMATOCRIT 23.5 % (42.0-52.0); HEMOGLOBIN 7.9 G/DL (14.2-18.0); MEAN CORPUSCULAR VOLUME 92 FL (80-99); PLATELET COUNT 79 K/UL (150-450); RED BLOOD COUNT 2.57 M/UL (4.70-6.10); RED CELL DISTRIBUTION WIDTH 15.4 % (11.6-14.8); WHITE BLOOD COUNT 5.7 K/UL (4.8-10.8)
[2018-02-08 06:02] LABS: INR 1.1 (0.9-1.1)
[2018-02-08 06:18] LABS: ALANINE AMINOTRANSFERASE 12 U/L (12-78); ALBUMIN 2.7 G/DL (3.4-5.0); ALBUMIN/GLOBULIN RATIO 0.6 (1.0-2.7); ALKALINE PHOSPHATASE 346 U/L (46-116); ANION GAP 14 mmol/L (5-15); ASPARTATE AMINO TRANSFERASE 18 U/L (15-37); BILIRUBIN,TOTAL 1.5 MG/DL (0.2-1.0); BLOOD UREA NITROGEN 83 mg/dL (7-18); CALCIUM 7.9 MG/DL (8.5-10.1); CARBON DIOXIDE 32 MMOL/L (21-32); CHLORIDE 97 MMOL/L (98-107); CREATININE 7.8 MG/DL (0.55-1.30); POTASSIUM 3.5 MMOL/L (3.5-5.1); SODIUM 143 MMOL/L (136-145)
[2018-02-08 06:31] LABS: BILIRUBIN,DIRECT 0.5 MG/DL (0.0-0.3)
--- NOTE | 2018-02-08 08:35 | Diagnostic Imaging Report ---
Indication: Dyspnea Technique: One view of the chest Comparison: 02/07/2018 Findings: Right-sided pleural effusion, bilateral interstitial edema appear unchanged. Heart size is normal. Impression: Unchanged, over one day, findings as above.
[2018-02-08] MEDS ORDERED: Acetaminophen 500mg (ES) tab ORAL PRN ×3 (09:00→18:00)
--- NOTE | 2018-02-08 09:05 | General Progress Note ---
Assessment/Plan Assessment/Plan (1) Right hip pain (2) Right hip Fracture (3) S/p ORIF of right hip Pt will continued on Percocet HOLD OPIOIDS FOR OVERSEDATION OR SBP<90 OR DBP<60 OR O2SAT<92% OR RR<12 D/w Dr. Childers he concurred. Subjective Date patient seen: Feb 08, 2018 Time patient seen: 07:45 - am Allergies: Coded Allergies: No Known Allergies (Unverified , 02/02/18) Subjective Constitutional: Reports: no symptoms Eye: Reports: no symptoms ENT: Reports: no symptoms Respiratory: Reports: no symptoms Cardiovascular: Reports: no symptoms Gastrointestinal: Reports: no symptoms Genitourinary: Reports: no symptoms Musculoskeletal: Reports: no symptoms Skin: Reports: no symptoms Psychiatric: Reports: no symptoms Neurological: Reports: no symptoms Endocrine: Reports: no symptoms Hematologic/Lymphatic: Reports: no symptoms Subjective He is in bed and eating breakfast. Pain is unchanged. Patient was advised to request the Percocet when he has pain. No Percocet was given since it was started. Objective Last 24 Hour Vital Signs Date Time Temp Pulse Resp B/P (MAP) Pulse Ox O2 Delivery O2 Flow Rate FiO2 02/08/18 04:55 146/77 02/08/18 04:00 97.7 77 21 146/77 93 Nasal Cannula 3.0 97.7 02/08/18 03:38 80 02/08/18 00:00 97.8 74 20 155/72 94 Nasal Cannula 3.0 97.8 02/07/18 23:36 75 02/07/18 21:37 138/74 02/07/18 21:36 138/74 02/07/18 20:00 97.9 75 20 138/74 97 Nasal Cannula 3.0 97.9 02/07/18 19:30 Nasal Cannula 3.0 32 02/07/18 19:30 95 Nasal Cannula 3.0 32 02/07/18 19:15 77 02/07/18 17:17 155/79 02/07/18 16:00 72 02/07/18 16:00 97.7 74 20 154/61 92 Nasal Cannula 3.0 97.7 02/07/18 15:00 98.5 73 16 155/50 94 Nasal Cannula 3.0 98.5 02/07/18 14:00 75 17 153/63 94 Nasal Cannula 3.0 02/07/18 13:53 180/67 02/07/18 13:53 180/67 02/07/18 13:00 75 17 180/67 91 Nasal Cannula 3.0 02/07/18 12:00 98.8 71 17 138/59 98 Nasal Cannula 3.0 98.8 02/07/18 12:00 71 02/07/18 11:00 70 17 143/70 95 Nasal Cannula 3.0 02/07/18 10:00 71 17 144/71 100 Nasal Cannula 3.0 02/07/18 09:00 74 17 149/61 100 Non-Rebreather 15.0 Intake and Output 02/07/18 02/08/18 19:00 07:00 Intake Total 50 ml 300 ml Output Total 0 ml 0 ml Balance 50 ml 300 ml Intake Oral 50 ml 240 ml IV Total 60 ml Output Urine Total 0 ml 0 ml # Voids 1 Laboratory Tests 02/07/18 17:15: White Blood Count 5.9, Red Blood Count 2.43L, Hemoglobin 7.5L, Hematocrit 22.1L , Mean Corpuscular Volume 91, Mean Corpuscular Hemoglobin 30.7, Mean Corpuscular Hemoglobin Concent 33.8, Red Cell Distribution Width 15.6H, Platelet Count 73L, Mean Platelet Volume 6.6, Neutrophils (%) (Auto) , Lymphocytes (%) (Auto) , Monocytes (%) (Auto) , Eosinophils (%) (Auto) , Basophils (%) (Auto) , Differential Total Cells Counted 100, Neutrophils % ( Manual) 73, Lymphocytes % (Manual) 19L, Monocytes % (Manual) 6, Eosinophils % ( Manual) 2, Basophils % (Manual) 0, Band Neutrophils 0, Platelet Estimate DecreasedL, Platelet Morphology Normal, Hypochromasia 1+, Anisocytosis 1+, Indirect Platelet-Bound IgG Ab [Pending], Anti-Platelet Glycoprotein IIb/IIIa [ Pending], Anti-Platelet Glycoprotein Ia/IIA [Pending], Anti-Platelet Glycoprotein Ib/IX [Pending], Heparin-PF4 Antibody Screen [Pending] 02/08/18 04:35: White Blood Count 5.7, Red Blood Count 2.57L, Hemoglobin 7.9L, Hematocrit 23.5L , Mean Corpuscular Volume 92, Mean Corpuscular Hemoglobin 30.7, Mean Corpuscular Hemoglobin Concent 33.5, Red Cell Distribution Width 15.4H, Platelet Count 79L, Mean Platelet Volume 6.5, Neutrophils (%) (Auto) , Lymphocytes (%) (Auto) , Monocytes (%) (Auto) , Eosinophils (%) (Auto) , Basophils (%) (Auto) , Neutrophils % (Manual) [Pending], Lymphocytes % (Manual) [Pending], Platelet Estimate [Pending], Platelet Morphology [Pending], Prothrombin Time 12.0H, Prothromb Time International Ratio 1.1, Sodium Level 143 , Potassium Level 3.5, Chloride Level 97L, Carbon Dioxide Level 32, Anion Gap 14 , Blood Urea Nitrogen 83H, Creatinine 7.8H, Estimat Glomerular Filtration Rate 7.0, Glucose Level 142H, Calcium Level 7.9L, Total Bilirubin 1.5H, Direct Bilirubin 0.5H, Aspartate Amino Transf (AST/SGOT) 18, Alanine Aminotransferase ( ALT/SGPT) 12, Alkaline Phosphatase 346H, Pro-B-Type Natriuretic Peptide > 67975Y , Total Protein 7.5, Albumin 2.7L, Globulin 4.8, Albumin/Globulin Ratio 0.6L Height (Feet): 5 Height (Inches): 7.00 Weight (Pounds): 139 Objective General Appearance: no apparent distress, alert HEENT: PERRL, EOMI Neck: non-tender, normal alignment, supple, normal inspection Respiratory/Chest: lungs clear, normal breath sounds, no respiratory distress, no accessory muscle use Cardiovascular/Chest: normal rate, regular rhythm Abdomen: non tender, soft, no organomegaly Extremities: inflammation - right hip tenderness to palpation Skin Exam: normal pigmentation, warm/dry Neurologic: alert, oriented x 3 KANWAL CURRAN N. P.Raj Feb 08, 2018 09:05
[2018-02-08] MEDS: HydrALAZINE 25mg tab ORAL SCH ×4 (09:12→23:29)
--- NOTE | 2018-02-08 10:29 | Nephrology Progress Note ---
Assessment/Plan Problem List: (1) ESRD (end stage renal disease) on dialysis (2) Acute hyperkalemia (3) Hypertension, uncontrolled (4) Left leg DVT (5) Anemia in chronic kidney disease (CKD) Assessment ESRD, on admission missed dialysis . has high K on admission has fistula right arm Sever Anemia h/o Amyloidosis COPD Plan HD done 02/02 , 02/05, 02/06 next 02/08 Transfused Kayexelate as needed BP control, meds adjusted has IVC filter Neg for pulm emboli- DC heparin Subjective ROS Limited/Unobtainable: No Constitutional: Reports: malaise Objective Objective Last 24 Hour Vital Signs Date Time Temp Pulse Resp B/P (MAP) Pulse Ox O2 Delivery O2 Flow Rate FiO2 02/08/18 09:12 155/57 02/08/18 09:11 74 155/57 02/08/18 08:00 97.5 74 18 155/57 90 Nasal Cannula 3.0 97.5 02/08/18 04:55 146/77 02/08/18 04:00 97.7 77 21 146/77 93 Nasal Cannula 3.0 97.7 02/08/18 03:38 80 02/08/18 00:00 97.8 74 20 155/72 94 Nasal Cannula 3.0 97.8 02/07/18 23:36 75 02/07/18 21:37 138/74 02/07/18 21:36 138/74 02/07/18 20:00 97.9 75 20 138/74 97 Nasal Cannula 3.0 97.9 02/07/18 19:30 Nasal Cannula 3.0 32 02/07/18 19:30 95 Nasal Cannula 3.0 32 02/07/18 19:15 77 02/07/18 17:17 155/79 02/07/18 16:00 72 02/07/18 16:00 97.7 74 20 154/61 92 Nasal Cannula 3.0 97.7 02/07/18 15:00 98.5 73 16 155/50 94 Nasal Cannula 3.0 98.5 02/07/18 14:00 75 17 153/63 94 Nasal Cannula 3.0 02/07/18 13:53 180/67 02/07/18 13:53 180/67 02/07/18 13:00 75 17 180/67 91 Nasal Cannula 3.0 02/07/18 12:00 98.8 71 17 138/59 98 Nasal Cannula 3.0 98.8 02/07/18 12:00 71 02/07/18 11:00 70 17 143/70 95 Nasal Cannula 3.0 Intake and Output 02/07/18 02/08/18 19:00 07:00 Intake Total 50 ml 300 ml Output Total 0 ml 0 ml Balance 50 ml 300 ml Intake Oral 50 ml 240 ml IV Total 60 ml Output Urine Total 0 ml 0 ml # Voids 1 Laboratory Tests 02/07/18 17:15: White Blood Count 5.9, Red Blood Count 2.43L, Hemoglobin 7.5L, Hematocrit 22.1L , Mean Corpuscular Volume 91, Mean Corpuscular Hemoglobin 30.7, Mean Corpuscular Hemoglobin Concent 33.8, Red Cell Distribution Width 15.6H, Platelet Count 73L, Mean Platelet Volume 6.6, Neutrophils (%) (Auto) , Lymphocytes (%) (Auto) , Monocytes (%) (Auto) , Eosinophils (%) (Auto) , Basophils (%) (Auto) , Differential Total Cells Counted 100, Neutrophils % ( Manual) 73, Lymphocytes % (Manual) 19L, Monocytes % (Manual) 6, Eosinophils % ( Manual) 2, Basophils % (Manual) 0, Band Neutrophils 0, Platelet Estimate DecreasedL, Platelet Morphology Normal, Hypochromasia 1+, Anisocytosis 1+, Indirect Platelet-Bound IgG Ab [Pending], Anti-Platelet Glycoprotein IIb/IIIa [ Pending], Anti-Platelet Glycoprotein Ia/IIA [Pending], Anti-Platelet Glycoprotein Ib/IX [Pending], Heparin-PF4 Antibody Screen [Pending] 02/08/18 04:35: White Blood Count 5.7, Red Blood Count 2.57L, Hemoglobin 7.9L, Hematocrit 23.5L , Mean Corpuscular Volume 92, Mean Corpuscular Hemoglobin 30.7, Mean Corpuscular Hemoglobin Concent 33.5, Red Cell Distribution Width 15.4H, Platelet Count 79L, Mean Platelet Volume 6.5, Neutrophils (%) (Auto) , Lymphocytes (%) (Auto) , Monocytes (%) (Auto) , Eosinophils (%) (Auto) , Basophils (%) (Auto) , Differential Total Cells Counted 100, Neutrophils % ( Manual) 63, Lymphocytes % (Manual) 24, Monocytes % (Manual) 8, Eosinophils % ( Manual) 5H, Basophils % (Manual) 0, Band Neutrophils 0, Platelet Estimate DecreasedL, Platelet Morphology Normal, Hypochromasia 1+, Anisocytosis 1+, Polychromasia 1+, Prothrombin Time 12.0H, Prothromb Time International Ratio 1.1 , Sodium Level 143, Potassium Level 3.5, Chloride Level 97L, Carbon Dioxide Level 32, Anion Gap 14, Blood Urea Nitrogen 83H, Creatinine 7.8H, Estimat Glomerular Filtration Rate 7.0, Glucose Level 142H, Calcium Level 7.9L, Total Bilirubin 1.5H, Direct Bilirubin 0.5H, Aspartate Amino Transf (AST/SGOT) 18, Alanine Aminotransferase (ALT/SGPT) 12, Alkaline Phosphatase 346H, Pro-B-Type Natriuretic Peptide > 16844S, Total Protein 7.5, Albumin 2.7L, Globulin 4.8, Albumin/Globulin Ratio 0.6L Height (Feet): 5 Height (Inches): 7.00 Weight (Pounds): 139 General Appearance: no apparent distress Cardiovascular: normal rate Respiratory/Chest: decreased breath sounds Abdomen: soft Objective no change DALTON ROSENTHAL Feb 08, 2018 10:29
--- NOTE | 2018-02-08 11:00 | Pulmonology Progress Note ---
Assessment/Plan Problems: (1) Acute respiratory failure (2) ESRF (end stage renal failure) (3) Pulmonary edema (4) DVT (deep venous thrombosis) Assessment/Plan improving HD by strategic marketing leader respiratory treatment titrate fio2 to sat of 92% check Hemoglobin s/p 3 prbc so far Subjective ROS Limited/Unobtainable: No Interval Events: sitting up at the edege of bed, less short of breath Allergies: Coded Allergies: No Known Allergies (Unverified , 02/02/18) Objective Last 24 Hour Vital Signs Date Time Temp Pulse Resp B/P (MAP) Pulse Ox O2 Delivery O2 Flow Rate FiO2 02/08/18 09:12 155/57 02/08/18 09:11 74 155/57 02/08/18 08:00 97.5 74 18 155/57 90 Nasal Cannula 3.0 97.5 02/08/18 04:55 146/77 02/08/18 04:00 97.7 77 21 146/77 93 Nasal Cannula 3.0 97.7 02/08/18 03:38 80 02/08/18 00:00 97.8 74 20 155/72 94 Nasal Cannula 3.0 97.8 02/07/18 23:36 75 02/07/18 21:37 138/74 02/07/18 21:36 138/74 02/07/18 20:00 97.9 75 20 138/74 97 Nasal Cannula 3.0 97.9 02/07/18 19:30 Nasal Cannula 3.0 32 02/07/18 19:30 95 Nasal Cannula 3.0 32 02/07/18 19:15 77 02/07/18 17:17 155/79 02/07/18 16:00 72 02/07/18 16:00 97.7 74 20 154/61 92 Nasal Cannula 3.0 97.7 02/07/18 15:00 98.5 73 16 155/50 94 Nasal Cannula 3.0 98.5 02/07/18 14:00 75 17 153/63 94 Nasal Cannula 3.0 02/07/18 13:53 180/67 02/07/18 13:53 180/67 02/07/18 13:00 75 17 180/67 91 Nasal Cannula 3.0 02/07/18 12:00 98.8 71 17 138/59 98 Nasal Cannula 3.0 98.8 02/07/18 12:00 71 02/07/18 11:00 70 17 143/70 95 Nasal Cannula 3.0 Intake and Output 02/07/18 02/08/18 19:00 07:00 Intake Total 50 ml 300 ml Output Total 0 ml 0 ml Balance 50 ml 300 ml Intake Oral 50 ml 240 ml IV Total 60 ml Output Urine Total 0 ml 0 ml # Voids 1 General Appearance: WD/WN HEENT: normocephalic, atraumatic Respiratory/Chest: chest wall non-tender, lungs clear, crackles/rales Cardiovascular: normal peripheral pulses, normal rate Abdomen: normal bowel sounds, soft, non tender Genitourinary: normal external genitalia Extremities: no cyanosis Skin: no rash Neurologic/Psychiatric: ethernet network architect II-XII grossly normal, abnormal gait Lymphatic: no groin adenopathy Laboratory Tests 02/07/18 17:15: White Blood Count 5.9, Red Blood Count 2.43L, Hemoglobin 7.5L, Hematocrit 22.1L , Mean Corpuscular Volume 91, Mean Corpuscular Hemoglobin 30.7, Mean Corpuscular Hemoglobin Concent 33.8, Red Cell Distribution Width 15.6H, Platelet Count 73L, Mean Platelet Volume 6.6, Neutrophils (%) (Auto) , Lymphocytes (%) (Auto) , Monocytes (%) (Auto) , Eosinophils (%) (Auto) , Basophils (%) (Auto) , Differential Total Cells Counted 100, Neutrophils % ( Manual) 73, Lymphocytes % (Manual) 19L, Monocytes % (Manual) 6, Eosinophils % ( Manual) 2, Basophils % (Manual) 0, Band Neutrophils 0, Platelet Estimate DecreasedL, Platelet Morphology Normal, Hypochromasia 1+, Anisocytosis 1+, Indirect Platelet-Bound IgG Ab [Pending], Anti-Platelet Glycoprotein IIb/IIIa [ Pending], Anti-Platelet Glycoprotein Ia/IIA [Pending], Anti-Platelet Glycoprotein Ib/IX [Pending], Heparin-PF4 Antibody Screen [Pending] 02/08/18 04:35: White Blood Count 5.7, Red Blood Count 2.57L, Hemoglobin 7.9L, Hematocrit 23.5L , Mean Corpuscular Volume 92, Mean Corpuscular Hemoglobin 30.7, Mean Corpuscular Hemoglobin Concent 33.5, Red Cell Distribution Width 15.4H, Platelet Count 79L, Mean Platelet Volume 6.5, Neutrophils (%) (Auto) , Lymphocytes (%) (Auto) , Monocytes (%) (Auto) , Eosinophils (%) (Auto) , Basophils (%) (Auto) , Differential Total Cells Counted 100, Neutrophils % ( Manual) 63, Lymphocytes % (Manual) 24, Monocytes % (Manual) 8, Eosinophils % ( Manual) 5H, Basophils % (Manual) 0, Band Neutrophils 0, Platelet Estimate DecreasedL, Platelet Morphology Normal, Hypochromasia 1+, Anisocytosis 1+, Polychromasia 1+, Prothrombin Time 12.0H, Prothromb Time International Ratio 1.1 , Sodium Level 143, Potassium Level 3.5, Chloride Level 97L, Carbon Dioxide Level 32, Anion Gap 14, Blood Urea Nitrogen 83H, Creatinine 7.8H, Estimat Glomerular Filtration Rate 7.0, Glucose Level 142H, Uric Acid [Pending], Calcium Level 7.9L, Phosphorus Level [Pending], Total Bilirubin 1.5H, Direct Bilirubin 0.5H, Aspartate Amino Transf (AST/SGOT) 18, Alanine Aminotransferase ( ALT/SGPT) 12, Alkaline Phosphatase 346H, Pro-B-Type Natriuretic Peptide > 91537M , Total Protein 7.5, Albumin 2.7L, Globulin 4.8, Albumin/Globulin Ratio 0.6L 02/08/18 10:15: Stool Occult Blood [Pending] Current Medications Medications (Trade) Dose Ordered Sig/Blessing Route PRN Reason Start Time Stop Time Status Last Admin Dose Admin Acetaminophen (Tylenol) 500 mg 3XW PRN ORAL WITH DIALYSIS 02/08/18 09:00 03/04/18 20:59 Amlodipine Besylate (Norvasc) 10 mg DAILY ORAL 02/08/18 09:00 03/05/18 11:14 02/08/18 09:11 Clonidine HCl (Catapres Tab) 0.1 mg EVERY 8 HOURS ORAL 02/07/18 22:00 03/05/18 13:59 02/08/18 04:55 Clonidine HCl (Catapres Tab) 0.1 mg Q4H PRN ORAL SBP > 160 mmHg 02/07/18 15:45 03/04/18 15:44 Diphenhydramine HCl (Benadryl) 50 mg Q6H PRN IVP WITH DIALYSIS or ITCHING 02/07/18 15:30 03/04/18 15:29 Epoetin Alfonzo (Procrit (for non ESRD use)) 5,000 units SUN-SUN-SUN SUBQ 02/08/18 21:00 03/06/18 20:59 Famotidine (Pepcid I.v.) 20 mg DAILY IVP 02/08/18 09:00 03/10/18 08:59 02/08/18 09:12 Folic Acid (Folate) 1 mg DAILY ORAL 02/08/18 09:00 03/06/18 08:59 02/08/18 09:12 Gabapentin (Neurontin) 300 mg THREE TIMES A DAY ORAL 02/07/18 18:00 03/07/18 08:59 02/08/18 09:11 Hydralazine HCl (Apresoline) 25 mg FOUR TIMES A DAY ORAL 02/07/18 18:00 03/05/18 12:59 02/08/18 09:12 Iron Sucrose 100 mg/Sodium Chloride 60 ml @ 240 mls/hr TuThSa@2100 IV 02/07/18 21:00 02/16/18 21:14 02/07/18 21:52 Lorazepam (Ativan) 1 mg Q6H PRN ORAL For Anxiety 02/07/18 16:15 02/12/18 04:14 02/08/18 04:55 Oxycodone/ Acetaminophen (Percocet 5-325) 1 tab Q4H PRN ORAL Severe Pain (Pain Scale 7-10) 02/07/18 16:00 02/14/18 15:59 Prochlorperazine (Compazine) 10 mg Q6H PRN IVP Nausea & Vomiting 02/07/18 17:00 03/09/18 10:59 Quetiapine Fumarate (SEROquel) 25 mg QHS ORAL 02/07/18 21:00 03/07/18 20:59 02/07/18 21:36 Warfarin Sodium (Coumadin per pharmacy) 1 ea DAILY PRN MISC Per rx protocol 02/08/18 09:00 03/08/18 16:59 Warfarin Sodium (Coumadin) 6 mg COUMADIN PRN ORAL . 02/08/18 17:00 02/08/18 18:00 Zolpidem Tartrate (Ambien) 5 mg HSPRN PRN ORAL Insomnia 02/07/18 21:00 02/13/18 20:59 Clement Mcleod MD Feb 08, 2018 11:00
[2018-02-08 11:07] LABS: PHOSPHORUS 7.8 MG/DL (2.5-4.9)
--- NOTE | 2018-02-08 13:00 | Progress Note ---
DATE: 02/08/2018 SUBJECTIVE: This is a 63-year-old male patient, was admitted with GI bleeding. The patient is confused, disorganized, mood lability. No logical plan for his own self-care. Feelings of helplessness, hopelessness, low energy, poor appetite, and lost of interest in activity. That is why, he does require . MENTAL STATUS EXAMINATION: This is a 63-year-old male. Appearance is disheveled. Attitude, irritable and agitated. Affect, guarded and restricted. Intellect poor. Mood, depressed and anxious. Motor activity, psychomotor agitation. Attention span is poor. Orientation x2. Speech is pressured. Thought process, disorganized and illogical. Thought content, auditory hallucinations and paranoid delusions. Insight and judgment is poor. DIAGNOSIS: depression with psychotic features. PLAN: Treat him with Neurontin 300 mg a day, Ativan 1 mg q.6 hours p.r.n., and Seroquel 25 mg at bedtime. An 18 to 20 minutes of supportive psychotherapy provided. Chart reviewed and discussed with staff. Seen and assessed at bedside. Rony Corral M.D. DR: PAM JOB#: [id number] CC:
--- NOTE | 2018-02-08 13:09 | GI Progress Note ---
Assessment/Plan Problems: (1) Abnormal LFTs ICD Codes: R94.5 - Abnormal results of liver function studies SNOMED: 843916198 (2) Symptomatic anemia ICD Codes: D64.9 - Anemia, unspecified SNOMED: 974107093 (3) ESRD (end stage renal disease) on dialysis ICD Codes: N18.6 - End stage renal disease; Z99.2 - Dependence on renal dialysis SNOMED: 422809190 Status: progressing Status Narrative Discussed with Dr. Matos. Assessment/Plan hx of EGD/colonoscopy 3 months ago per patient, cannot recall location. iron panel WNL OB stool negative monitor H&H, prn transfusions ppi thiamine fu labs outpatient GI procedures Subjective Subjective denies abdominal pain had EGD/colonoscopy x3 months Objective Last 24 Hour Vital Signs Date Time Temp Pulse Resp B/P (MAP) Pulse Ox O2 Delivery O2 Flow Rate FiO2 02/08/18 09:12 155/57 02/08/18 09:11 74 155/57 02/08/18 08:00 75 02/08/18 08:00 97.5 74 18 155/57 90 Nasal Cannula 3.0 97.5 02/08/18 04:55 146/77 02/08/18 04:00 97.7 77 21 146/77 93 Nasal Cannula 3.0 97.7 02/08/18 03:38 80 02/08/18 00:00 97.8 74 20 155/72 94 Nasal Cannula 3.0 97.8 02/07/18 23:36 75 02/07/18 21:37 138/74 02/07/18 21:36 138/74 02/07/18 20:00 97.9 75 20 138/74 97 Nasal Cannula 3.0 97.9 02/07/18 19:30 Nasal Cannula 3.0 32 02/07/18 19:30 95 Nasal Cannula 3.0 32 02/07/18 19:15 77 02/07/18 17:17 155/79 02/07/18 16:00 72 02/07/18 16:00 97.7 74 20 154/61 92 Nasal Cannula 3.0 97.7 02/07/18 15:00 98.5 73 16 155/50 94 Nasal Cannula 3.0 98.5 02/07/18 14:00 75 17 153/63 94 Nasal Cannula 3.0 02/07/18 13:53 180/67 02/07/18 13:53 180/67 Intake and Output 02/07/18 02/08/18 19:00 07:00 Intake Total 50 ml 300 ml Output Total 0 ml 0 ml Balance 50 ml 300 ml Intake Oral 50 ml 240 ml IV Total 60 ml Output Urine Total 0 ml 0 ml # Voids 1 Laboratory Tests Test 02/07/18 17:15 02/08/18 04:35 02/08/18 10:15 White Blood Count 5.9 K/UL (4.8-10.8) 5.7 K/UL (4.8-10.8) Red Blood Count 2.43 M/UL (4.70-6.10) L 2.57 M/UL (4.70-6.10) L Hemoglobin 7.5 G/DL (14.2-18.0) L 7.9 G/DL (14.2-18.0) L Hematocrit 22.1 % (42.0-52.0) L 23.5 % (42.0-52.0) L Mean Corpuscular Volume 91 FL (80-99) 92 FL (80-99) Mean Corpuscular Hemoglobin 30.7 PG (27.0-31.0) 30.7 PG (27.0-31.0) Mean Corpuscular Hemoglobin Concent 33.8 G/DL (32.0-36.0) 33.5 G/DL (32.0-36.0) Red Cell Distribution Width 15.6 % (11.6-14.8) H 15.4 % (11.6-14.8) H Platelet Count 73 K/UL (150-450) L 79 K/UL (150-450) L Mean Platelet Volume 6.6 FL (6.5-10.1) 6.5 FL (6.5-10.1) Neutrophils (%) (Auto) % (45.0-75.0) % (45.0-75.0) Lymphocytes (%) (Auto) % (20.0-45.0) % (20.0-45.0) Monocytes (%) (Auto) % (1.0-10.0) % (1.0-10.0) Eosinophils (%) (Auto) % (0.0-3.0) % (0.0-3.0) Basophils (%) (Auto) % (0.0-2.0) % (0.0-2.0) Differential Total Cells Counted 100 100 Neutrophils % (Manual) 73 % (45-75) 63 % (45-75) Lymphocytes % (Manual) 19 % (20-45) L 24 % (20-45) Monocytes % (Manual) 6 % (1-10) 8 % (1-10) Eosinophils % (Manual) 2 % (0-3) 5 % (0-3) H Basophils % (Manual) 0 % (0-2) 0 % (0-2) Band Neutrophils 0 % (0-8) 0 % (0-8) Platelet Estimate Decreased L Decreased L Platelet Morphology Normal Normal Hypochromasia 1+ 1+ Anisocytosis 1+ 1+ Indirect Platelet-Bound IgG Ab Pending Anti-Platelet Glycoprotein IIb/IIIa Pending Anti-Platelet Glycoprotein Ia/IIA Pending Anti-Platelet Glycoprotein Ib/IX Pending Heparin-PF4 Antibody Screen Pending Polychromasia 1+ Prothrombin Time 12.0 SEC (9.30-11.50) H Prothromb Time International Ratio 1.1 (0.9-1.1) Sodium Level 143 MMOL/L (136-145) Potassium Level 3.5 MMOL/L (3.5-5.1) Chloride Level 97 MMOL/L (98-107) L Carbon Dioxide Level 32 MMOL/L (21-32) Anion Gap 14 mmol/L (5-15) Blood Urea Nitrogen 83 mg/dL (7-18) H Creatinine 7.8 MG/DL (0.55-1.30) H Estimat Glomerular Filtration Rate 7.0 mL/min (>60) Glucose Level 142 MG/DL (74-106) H Uric Acid 5.3 MG/DL (2.6-7.2) Calcium Level 7.9 MG/DL (8.5-10.1) L Phosphorus Level 7.8 MG/DL (2.5-4.9) H Total Bilirubin 1.5 MG/DL (0.2-1.0) H Direct Bilirubin 0.5 MG/DL (0.0-0.3) H Aspartate Amino Transf (AST/SGOT) 18 U/L (15-37) Alanine Aminotransferase (ALT/SGPT) 12 U/L (12-78) Alkaline Phosphatase 346 U/L (46-116) H Pro-B-Type Natriuretic Peptide > 90371 pg/mL (0-125) H Total Protein 7.5 G/DL (6.4-8.2) Albumin 2.7 G/DL (3.4-5.0) L Globulin 4.8 g/dL Albumin/Globulin Ratio 0.6 (1.0-2.7) L Stool Occult Blood Negative (NEGATIVE) Height (Feet): 5 Height (Inches): 7.00 Weight (Pounds): 139 General Appearance: WD/WN, no apparent distress, alert, thin Cardiovascular: normal rate Respiratory/Chest: normal breath sounds, no respiratory distress Abdominal Exam: normal bowel sounds, non tender, soft Extremities: normal range of motion, non-tender Freya Aldana N.P. Feb 08, 2018 13:09
--- NOTE | 2018-02-08 13:15 | General Progress Note ---
Assessment/Plan Problem List: (1) Abnormal laboratory test result ICD Codes: R89.9 - Unspecified abnormal finding in specimens from other organs , systems and tissues SNOMED: 865722346 (2) ESRD (end stage renal disease) on dialysis ICD Codes: N18.6 - End stage renal disease; Z99.2 - Dependence on renal dialysis SNOMED: 416697479 (3) Hypertension, uncontrolled ICD Codes: I10 - Essential (primary) hypertension SNOMED: 06055738, 94753271 (4) Symptomatic anemia ICD Codes: D64.9 - Anemia, unspecified SNOMED: 485574727 (5) Acute hyperkalemia ICD Codes: E87.5 - Hyperkalemia SNOMED: 0053207 (6) DVT (deep venous thrombosis) ICD Codes: I82.409 - Acute embolism and thrombosis of unspecified deep veins of unspecified lower extremity SNOMED: 851809762 (7) SOB (shortness of breath) ICD Codes: R06.02 - Shortness of breath SNOMED: 693643578 Status: stable, progressing, tolerating diet Assessment/Plan ot pt diet o2 pulm tx gi/heme f/u anticoag pulm f/u cbc bmp am ltach eval Subjective Constitutional: Reports: weakness Allergies: Coded Allergies: No Known Allergies (Unverified , 02/02/18) All Systems: reviewed and negative except above Subjective calm in bed sl weak Objective Last 24 Hour Vital Signs Date Time Temp Pulse Resp B/P (MAP) Pulse Ox O2 Delivery O2 Flow Rate FiO2 02/08/18 09:12 155/57 02/08/18 09:11 74 155/57 02/08/18 08:00 75 02/08/18 08:00 97.5 74 18 155/57 90 Nasal Cannula 3.0 97.5 02/08/18 04:55 146/77 02/08/18 04:00 97.7 77 21 146/77 93 Nasal Cannula 3.0 97.7 02/08/18 03:38 80 02/08/18 00:00 97.8 74 20 155/72 94 Nasal Cannula 3.0 97.8 02/07/18 23:36 75 02/07/18 21:37 138/74 02/07/18 21:36 138/74 02/07/18 20:00 97.9 75 20 138/74 97 Nasal Cannula 3.0 97.9 02/07/18 19:30 Nasal Cannula 3.0 32 02/07/18 19:30 95 Nasal Cannula 3.0 32 02/07/18 19:15 77 02/07/18 17:17 155/79 02/07/18 16:00 72 02/07/18 16:00 97.7 74 20 154/61 92 Nasal Cannula 3.0 97.7 02/07/18 15:00 98.5 73 16 155/50 94 Nasal Cannula 3.0 98.5 02/07/18 14:00 75 17 153/63 94 Nasal Cannula 3.0 02/07/18 13:53 180/67 02/07/18 13:53 180/67 Intake and Output 02/07/18 02/08/18 19:00 07:00 Intake Total 50 ml 300 ml Output Total 0 ml 0 ml Balance 50 ml 300 ml Intake Oral 50 ml 240 ml IV Total 60 ml Output Urine Total 0 ml 0 ml # Voids 1 Laboratory Tests 02/07/18 17:15: White Blood Count 5.9, Red Blood Count 2.43L, Hemoglobin 7.5L, Hematocrit 22.1L , Mean Corpuscular Volume 91, Mean Corpuscular Hemoglobin 30.7, Mean Corpuscular Hemoglobin Concent 33.8, Red Cell Distribution Width 15.6H, Platelet Count 73L, Mean Platelet Volume 6.6, Neutrophils (%) (Auto) , Lymphocytes (%) (Auto) , Monocytes (%) (Auto) , Eosinophils (%) (Auto) , Basophils (%) (Auto) , Differential Total Cells Counted 100, Neutrophils % ( Manual) 73, Lymphocytes % (Manual) 19L, Monocytes % (Manual) 6, Eosinophils % ( Manual) 2, Basophils % (Manual) 0, Band Neutrophils 0, Platelet Estimate DecreasedL, Platelet Morphology Normal, Hypochromasia 1+, Anisocytosis 1+, Indirect Platelet-Bound IgG Ab [Pending], Anti-Platelet Glycoprotein IIb/IIIa [ Pending], Anti-Platelet Glycoprotein Ia/IIA [Pending], Anti-Platelet Glycoprotein Ib/IX [Pending], Heparin-PF4 Antibody Screen [Pending] 02/08/18 04:35: White Blood Count 5.7, Red Blood Count 2.57L, Hemoglobin 7.9L, Hematocrit 23.5L , Mean Corpuscular Volume 92, Mean Corpuscular Hemoglobin 30.7, Mean Corpuscular Hemoglobin Concent 33.5, Red Cell Distribution Width 15.4H, Platelet Count 79L, Mean Platelet Volume 6.5, Neutrophils (%) (Auto) , Lymphocytes (%) (Auto) , Monocytes (%) (Auto) , Eosinophils (%) (Auto) , Basophils (%) (Auto) , Differential Total Cells Counted 100, Neutrophils % ( Manual) 63, Lymphocytes % (Manual) 24, Monocytes % (Manual) 8, Eosinophils % ( Manual) 5H, Basophils % (Manual) 0, Band Neutrophils 0, Platelet Estimate DecreasedL, Platelet Morphology Normal, Hypochromasia 1+, Anisocytosis 1+, Polychromasia 1+, Prothrombin Time 12.0H, Prothromb Time International Ratio 1.1 , Sodium Level 143, Potassium Level 3.5, Chloride Level 97L, Carbon Dioxide Level 32, Anion Gap 14, Blood Urea Nitrogen 83H, Creatinine 7.8H, Estimat Glomerular Filtration Rate 7.0, Glucose Level 142H, Uric Acid 5.3, Calcium Level 7.9L, Phosphorus Level 7.8H, Total Bilirubin 1.5H, Direct Bilirubin 0.5H, Aspartate Amino Transf (AST/SGOT) 18, Alanine Aminotransferase (ALT/SGPT) 12, Alkaline Phosphatase 346H, Pro-B-Type Natriuretic Peptide > 74388B, Total Protein 7.5, Albumin 2.7L, Globulin 4.8, Albumin/Globulin Ratio 0.6L 02/08/18 10:15: Stool Occult Blood Negative Height (Feet): 5 Height (Inches): 7.00 Weight (Pounds): 139 General Appearance: lethargic EENT: normal ENT inspection Neck: normal alignment Cardiovascular: normal peripheral pulses, normal rate, regular rhythm Respiratory/Chest: chest wall non-tender, lungs clear, normal breath sounds Abdomen: normal bowel sounds, non tender, soft Extremities: normal inspection Edema: no edema noted Arm (L), no edema noted Arm (R), no edema noted Leg (L), no edema noted Leg (R), no edema noted Pedal (L), no edema noted Pedal (R), no edema noted Generalized Neurologic: responsive, motor weakness Skin: normal pigmentation, warm/dry PEDRO HUTSON Feb 08, 2018 13:15
[2018-02-08] MEDS ORDERED: Warfarin Sodium 3mg ORAL PRN (17:00)
[2018-02-08] MEDS ORDERED: Warfarin Sodium 3mg ORAL SCH (18:00)
[2018-02-08] MEDS ORDERED: DiphenhydrAMINE 50mg/ml Inj IVP PRN (18:00)
[2018-02-08] MEDS: oxyCODONE HCL/Acetaminophen 5/325mg ORAL PRN ×2 (18:32→23:20)
[2018-02-08] MEDS: LORazepam 1mg tab ORAL PRN (18:32)
[2018-02-08] MEDS: Epogen (for non ESRD use) SUBQ SCH (21:00)
[2018-02-08] MEDS ORDERED: Epogen (for non ESRD use) SUBQ SCH (21:00)
[2018-02-08] MEDS: Zolpidem 5mg tab ORAL PRN (23:20)
[2018-02-09] VITALS: BP 149/56
[2018-02-09] MEDS: LORazepam 1mg tab ORAL PRN ×2 (01:02→22:27)
[2018-02-09 04:00] VITALS: BP 119/70
--- NOTE | 2018-02-09 07:37 | General Progress Note ---
Assessment/Plan Problem List: (1) Anemia in chronic kidney disease (CKD) ICD Codes: N18.9 - Chronic kidney disease, unspecified; D63.1 - Anemia in chronic kidney disease SNOMED: 577580414, 982218261 (2) ESRF (end stage renal failure) ICD Codes: N18.6 - End stage renal disease SNOMED: 17812463 (3) Abnormal LFTs ICD Codes: R94.5 - Abnormal results of liver function studies SNOMED: 724596323 Assessment/Plan hx of EGD/colonoscopy 3 months ago per patient, cannot recall location. iron panel WNL OB stool negative X2 monitor H&H, prn transfusions ppi thiamine fu labs outpatient GI procedures Subjective ROS Limited/Unobtainable: Yes Allergies: Coded Allergies: No Known Allergies (Unverified , 02/02/18) Subjective no event Objective Last 24 Hour Vital Signs Date Time Temp Pulse Resp B/P (MAP) Pulse Ox O2 Delivery O2 Flow Rate FiO2 02/09/18 06:03 119/70 02/09/18 04:00 97.9 102 19 119/70 90 97.9 02/09/18 00:00 98.5 77 20 149/56 84 98.5 02/08/18 23:30 Nasal Cannula 3.0 02/08/18 23:29 158/59 02/08/18 23:28 97.5 78 16 198/96 Nasal Cannula 3.0 97.5 02/08/18 23:20 158/59 02/08/18 20:00 97.3 78 21 158/59 88 97.3 02/08/18 20:00 Nasal Cannula 3.0 02/08/18 19:30 97.3 78 16 158/59 Nasal Cannula 3.0 97.3 02/08/18 19:30 Nasal Cannula 3.0 02/08/18 18:58 Nasal Cannula 3.0 32 02/08/18 18:58 96 Nasal Cannula 3.0 32 02/08/18 18:00 144/76 02/08/18 16:00 97.5 74 18 144/76 94 Nasal Cannula 3.0 97.5 02/08/18 16:00 75 02/08/18 13:52 146/74 02/08/18 13:52 146/74 02/08/18 12:00 79 02/08/18 12:00 97.6 75 24 149/55 90 Room Air 97.6 02/08/18 09:12 155/57 02/08/18 09:11 74 155/57 02/08/18 08:00 75 02/08/18 08:00 97.5 74 18 155/57 90 Nasal Cannula 3.0 97.5 Intake and Output 02/08/18 02/09/18 19:00 07:00 Intake Total 920 ml Output Total 2300 ml Balance 920 ml -2300 ml Intake Oral 920 ml Hemodialysis UF 2300 ml # Bowel Movements 2 Laboratory Tests 02/08/18 10:15: Stool Occult Blood Negative Height (Feet): 5 Height (Inches): 7.00 Weight (Pounds): 133 General Appearance: alert EENT: normal ENT inspection Neck: supple Cardiovascular: normal rate Respiratory/Chest: decreased breath sounds Abdomen: normal bowel sounds, non tender, soft Extremities: non-tender RAHEEM RYAN Feb 09, 2018 07:37
[2018-02-09 08:09] LABS: INR 1.1 (0.9-1.1)
[2018-02-09 08:11] LABS: HEMATOCRIT 24.2 % (42.0-52.0); HEMOGLOBIN 8.2 G/DL (14.2-18.0); MEAN CORPUSCULAR VOLUME 94 FL (80-99); PLATELET COUNT 97 K/UL (150-450); RED BLOOD COUNT 2.58 M/UL (4.70-6.10); WHITE BLOOD COUNT 4.2 K/UL (4.8-10.8)
[2018-02-09 08:20] VITALS: BP 122/79
[2018-02-09 08:49] LABS: ALANINE AMINOTRANSFERASE 11 U/L (12-78); ALBUMIN 2.7 G/DL (3.4-5.0); ALBUMIN/GLOBULIN RATIO 0.6 (1.0-2.7); ALKALINE PHOSPHATASE 358 U/L (46-116); ANION GAP 7 mmol/L (5-15); ASPARTATE AMINO TRANSFERASE 17 U/L (15-37); BILIRUBIN,TOTAL 1.1 MG/DL (0.2-1.0); BLOOD UREA NITROGEN 56 mg/dL (7-18); CALCIUM 8.3 MG/DL (8.5-10.1); CARBON DIOXIDE 38 MMOL/L (21-32); CHLORIDE 100 MMOL/L (98-107); CREATININE 6.2 MG/DL (0.55-1.30); POTASSIUM 3.4 MMOL/L (3.5-5.1); SODIUM 145 MMOL/L (136-145)
[2018-02-09 08:56] LABS: BILIRUBIN,DIRECT 0.3 MG/DL (0.0-0.3)
[2018-02-09] MEDS: HydrALAZINE 25mg tab ORAL SCH ×3 (09:18→20:17)
--- NOTE | 2018-02-09 09:24 | General Progress Note ---
Assessment/Plan Problem List: (1) Abnormal laboratory test result ICD Codes: R89.9 - Unspecified abnormal finding in specimens from other organs , systems and tissues SNOMED: 671542831 (2) ESRD (end stage renal disease) on dialysis ICD Codes: N18.6 - End stage renal disease; Z99.2 - Dependence on renal dialysis SNOMED: 630154930 (3) Hypertension, uncontrolled ICD Codes: I10 - Essential (primary) hypertension SNOMED: 38993564, 97733854 (4) Symptomatic anemia ICD Codes: D64.9 - Anemia, unspecified SNOMED: 767776505 (5) Acute hyperkalemia ICD Codes: E87.5 - Hyperkalemia SNOMED: 0049677 (6) DVT (deep venous thrombosis) ICD Codes: I82.409 - Acute embolism and thrombosis of unspecified deep veins of unspecified lower extremity SNOMED: 054893353 (7) SOB (shortness of breath) ICD Codes: R06.02 - Shortness of breath SNOMED: 129033241 Status: unchanged Assessment/Plan ot pt diet o2 pulm tx gi/heme f/u anticoag pulm f/u cbc bmp am ltach eval Subjective Constitutional: Reports: weakness Allergies: Coded Allergies: No Known Allergies (Unverified , 02/02/18) All Systems: reviewed and negative except above Subjective calm in bed sleepy Objective Last 24 Hour Vital Signs Date Time Temp Pulse Resp B/P (MAP) Pulse Ox O2 Delivery O2 Flow Rate FiO2 02/09/18 09:19 99 122/79 02/09/18 09:18 122/79 02/09/18 06:03 119/70 02/09/18 04:00 97.9 102 19 119/70 90 97.9 02/09/18 00:00 98.5 77 20 149/56 84 98.5 02/08/18 23:30 Nasal Cannula 3.0 02/08/18 23:29 158/59 02/08/18 23:28 97.5 78 16 198/96 Nasal Cannula 3.0 97.5 02/08/18 23:20 158/59 02/08/18 20:00 97.3 78 21 158/59 88 97.3 02/08/18 20:00 Nasal Cannula 3.0 02/08/18 19:30 97.3 78 16 158/59 Nasal Cannula 3.0 97.3 02/08/18 19:30 Nasal Cannula 3.0 02/08/18 18:58 Nasal Cannula 3.0 32 02/08/18 18:58 96 Nasal Cannula 3.0 32 02/08/18 18:00 144/76 02/08/18 16:00 97.5 74 18 144/76 94 Nasal Cannula 3.0 97.5 02/08/18 16:00 75 02/08/18 13:52 146/74 02/08/18 13:52 146/74 02/08/18 12:00 79 02/08/18 12:00 97.6 75 24 149/55 90 Room Air 97.6 Intake and Output 02/08/18 02/09/18 19:00 07:00 Intake Total 920 ml Output Total 2300 ml Balance 920 ml -2300 ml Intake Oral 920 ml Hemodialysis UF 2300 ml # Bowel Movements 2 Laboratory Tests 02/08/18 10:15: Stool Occult Blood Negative 02/09/18 06:08: White Blood Count 4.2L, Red Blood Count 2.58L, Hemoglobin 8.2L, Hematocrit 24.2L , Mean Corpuscular Volume 94, Mean Corpuscular Hemoglobin 31.9H, Mean Corpuscular Hemoglobin Concent 34.0, Red Cell Distribution Width 16.0H, Platelet Count 97L, Mean Platelet Volume 6.2L, Neutrophils (%) (Auto) , Lymphocytes (%) (Auto) , Monocytes (%) (Auto) , Eosinophils (%) (Auto) , Basophils (%) (Auto) , Neutrophils % (Manual) [Pending], Lymphocytes % (Manual) [Pending], Platelet Estimate [Pending], Platelet Morphology [Pending], Prothrombin Time 11.7H, Prothromb Time International Ratio 1.1, Sodium Level 145 , Potassium Level 3.4L, Chloride Level 100, Carbon Dioxide Level 38H, Anion Gap 7, Blood Urea Nitrogen 56H, Creatinine 6.2H, Estimat Glomerular Filtration Rate 9.2, Glucose Level 93, Calcium Level 8.3L, Total Bilirubin 1.1H, Direct Bilirubin 0.3, Aspartate Amino Transf (AST/SGOT) 17, Alanine Aminotransferase ( ALT/SGPT) 11L, Alkaline Phosphatase 358H, Total Protein 7.6, Albumin 2.7L, Globulin 4.9, Albumin/Globulin Ratio 0.6L Height (Feet): 5 Height (Inches): 7.00 Weight (Pounds): 133 General Appearance: lethargic EENT: normal ENT inspection Neck: normal alignment Cardiovascular: normal peripheral pulses, normal rate, regular rhythm Respiratory/Chest: chest wall non-tender, lungs clear, normal breath sounds Abdomen: normal bowel sounds, non tender, soft Extremities: normal inspection Edema: no edema noted Arm (L), no edema noted Arm (R), no edema noted Leg (L), no edema noted Leg (R), no edema noted Pedal (L), no edema noted Pedal (R), no edema noted Generalized Neurologic: motor weakness Skin: normal pigmentation, warm/dry PEDRO HUTSON Feb 09, 2018 09:24
--- NOTE | 2018-02-09 10:02 | Nephrology Progress Note ---
Assessment/Plan Problem List: (1) ESRD (end stage renal disease) on dialysis (2) Acute hyperkalemia (3) Hypertension, uncontrolled (4) Left leg DVT (5) Anemia in chronic kidney disease (CKD) Assessment ESRD, on admission missed dialysis . has high K on admission has fistula right arm Sever Anemia h/o Amyloidosis COPD Plan HD done next 02/11 Transfused Kayexelate as needed BP control, meds adjusted has IVC filter Neg for pulm emboli- DC heparin Subjective ROS Limited/Unobtainable: No Constitutional: Reports: malaise Objective Objective Last 24 Hour Vital Signs Date Time Temp Pulse Resp B/P (MAP) Pulse Ox O2 Delivery O2 Flow Rate FiO2 02/09/18 09:19 99 122/79 02/09/18 09:18 122/79 02/09/18 06:03 119/70 02/09/18 04:00 97.9 102 19 119/70 90 97.9 02/09/18 00:00 98.5 77 20 149/56 84 98.5 02/08/18 23:30 Nasal Cannula 3.0 02/08/18 23:29 158/59 02/08/18 23:28 97.5 78 16 198/96 Nasal Cannula 3.0 97.5 02/08/18 23:20 158/59 02/08/18 20:00 97.3 78 21 158/59 88 97.3 02/08/18 20:00 Nasal Cannula 3.0 02/08/18 19:30 97.3 78 16 158/59 Nasal Cannula 3.0 97.3 02/08/18 19:30 Nasal Cannula 3.0 02/08/18 18:58 Nasal Cannula 3.0 32 02/08/18 18:58 96 Nasal Cannula 3.0 32 02/08/18 18:00 144/76 02/08/18 16:00 97.5 74 18 144/76 94 Nasal Cannula 3.0 97.5 02/08/18 16:00 75 02/08/18 13:52 146/74 02/08/18 13:52 146/74 02/08/18 12:00 79 02/08/18 12:00 97.6 75 24 149/55 90 Room Air 97.6 Intake and Output 02/08/18 02/09/18 19:00 07:00 Intake Total 920 ml Output Total 2300 ml Balance 920 ml -2300 ml Intake Oral 920 ml Hemodialysis UF 2300 ml # Bowel Movements 2 Laboratory Tests 02/08/18 10:15: Stool Occult Blood Negative 02/09/18 06:08: White Blood Count 4.2L, Red Blood Count 2.58L, Hemoglobin 8.2L, Hematocrit 24.2L , Mean Corpuscular Volume 94, Mean Corpuscular Hemoglobin 31.9H, Mean Corpuscular Hemoglobin Concent 34.0, Red Cell Distribution Width 16.0H, Platelet Count 97L, Mean Platelet Volume 6.2L, Neutrophils (%) (Auto) , Lymphocytes (%) (Auto) , Monocytes (%) (Auto) , Eosinophils (%) (Auto) , Basophils (%) (Auto) , Neutrophils % (Manual) [Pending], Lymphocytes % (Manual) [Pending], Platelet Estimate [Pending], Platelet Morphology [Pending], Prothrombin Time 11.7H, Prothromb Time International Ratio 1.1, Sodium Level 145 , Potassium Level 3.4L, Chloride Level 100, Carbon Dioxide Level 38H, Anion Gap 7, Blood Urea Nitrogen 56H, Creatinine 6.2H, Estimat Glomerular Filtration Rate 9.2, Glucose Level 93, Calcium Level 8.3L, Total Bilirubin 1.1H, Direct Bilirubin 0.3, Aspartate Amino Transf (AST/SGOT) 17, Alanine Aminotransferase ( ALT/SGPT) 11L, Alkaline Phosphatase 358H, Total Protein 7.6, Albumin 2.7L, Globulin 4.9, Albumin/Globulin Ratio 0.6L Height (Feet): 5 Height (Inches): 7.00 Weight (Pounds): 133 General Appearance: no apparent distress Respiratory/Chest: decreased breath sounds Abdomen: soft Objective no change DALTON ROSENTHAL Feb 09, 2018 10:02
[2018-02-09] MEDS ORDERED: NS IV PRN (10:15)
[2018-02-09] MEDS ORDERED: LORAZEPAM IV PRN (10:15)
[2018-02-09] MEDS ORDERED: LORazepam Inj 2mg/ml 1ml IV PRN (11:15)
[2018-02-09] MEDS: LORazepam Inj 2mg/ml 1ml IV PRN ×2 (11:25→18:16)
[2018-02-09 12:00] VITALS: BP 131/82
[2018-02-09 15:48] VITALS: BP 140/65
[2018-02-09] MEDS ORDERED: Warfarin Sodium 3mg ORAL SCH (17:00)
[2018-02-09 20:00] VITALS: BP 161/70
[2018-02-09] MEDS: Iron Sucrose 100 MG in NS 55 ML IV SCH (20:17)
[2018-02-09] MEDS: Zolpidem 5mg tab ORAL PRN (20:18)
[2018-02-09] MEDS: oxyCODONE HCL/Acetaminophen 5/325mg ORAL PRN (20:18)
--- NOTE | 2018-02-09 21:48 | General Progress Note ---
Subjective Allergies: Coded Allergies: No Known Allergies (Unverified , 02/02/18) Objective Last 24 Hour Vital Signs Date Time Temp Pulse Resp B/P (MAP) Pulse Ox O2 Delivery O2 Flow Rate FiO2 02/09/18 20:18 161/70 02/09/18 20:17 161/70 02/09/18 20:00 97.0 80 20 161/70 91 97.0 02/09/18 15:48 98.4 84 18 140/65 93 Room Air 98.4 02/09/18 14:03 154/71 02/09/18 14:02 154/71 02/09/18 13:26 Nasal Cannula 2.0 28 02/09/18 13:26 92 Nasal Cannula 2.0 02/09/18 12:00 98.9 87 18 131/82 98 Room Air 98.9 02/09/18 09:19 99 122/79 02/09/18 09:18 122/79 02/09/18 08:20 97.1 99 19 122/79 Room Air 97.1 02/09/18 06:03 119/70 02/09/18 04:00 97.9 102 19 119/70 90 97.9 02/09/18 00:00 98.5 77 20 149/56 84 98.5 02/08/18 23:30 Nasal Cannula 3.0 02/08/18 23:29 158/59 02/08/18 23:28 97.5 78 16 198/96 Nasal Cannula 3.0 97.5 02/08/18 23:20 158/59 Intake and Output 02/08/18 02/09/18 19:00 07:00 Intake Total 920 ml Output Total 2300 ml Balance 920 ml -2300 ml Intake Oral 920 ml Hemodialysis UF 2300 ml # Bowel Movements 2 Laboratory Tests 02/09/18 06:08: White Blood Count 4.2L, Red Blood Count 2.58L, Hemoglobin 8.2L, Hematocrit 24.2L , Mean Corpuscular Volume 94, Mean Corpuscular Hemoglobin 31.9H, Mean Corpuscular Hemoglobin Concent 34.0, Red Cell Distribution Width 16.0H, Platelet Count 97L, Mean Platelet Volume 6.2L, Neutrophils (%) (Auto) , Lymphocytes (%) (Auto) , Monocytes (%) (Auto) , Eosinophils (%) (Auto) , Basophils (%) (Auto) , Differential Total Cells Counted 100, Neutrophils % ( Manual) 67, Lymphocytes % (Manual) 20, Monocytes % (Manual) 7, Eosinophils % ( Manual) 4H, Basophils % (Manual) 2, Band Neutrophils 0, Platelet Estimate DecreasedL, Platelet Morphology Normal, Hypochromasia 2+, Anisocytosis 1+, Spherocytes 1+, Prothrombin Time 11.7H, Prothromb Time International Ratio 1.1, Sodium Level 145, Potassium Level 3.4L, Chloride Level 100, Carbon Dioxide Level 38H, Anion Gap 7, Blood Urea Nitrogen 56H, Creatinine 6.2H, Estimat Glomerular Filtration Rate 9.2, Glucose Level 93, Calcium Level 8.3L, Phosphorus Level 5.2H, Total Bilirubin 1.1H, Direct Bilirubin 0.3, Aspartate Amino Transf (AST/SGOT) 17, Alanine Aminotransferase (ALT/SGPT) 11L, Alkaline Phosphatase 358H, Total Protein 7.6, Albumin 2.7L, Globulin 4.9, Albumin/ Globulin Ratio 0.6L Height (Feet): 5 Height (Inches): 7.00 Weight (Pounds): 133 Tristen Lewis MD Feb 09, 2018 21:48
--- NOTE | 2018-02-09 21:51 | General Progress Note ---
Assessment/Plan Assessment/Plan IMPRESSION: 1. Acute deep venous thrombosis, left lower extremities. 2. Status post inferior vena cava filter placement. 3. Anticoagulation with Coumadin. 4. Anticoagulation with IV heparin. 5. History of gastrointestinal bleed. 6. Anemia of kidney disease. 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 Anemia of chronic disease. 8. Decreased hemoglobin and hematocrit, rule out gastrointestinal bleed. 9. End-stage renal disease, hemodialysis dependent. 10. History of femoral neck fracture. 11. Hypertension. 12. Acute respiratory failure. 13. Pulmonary edema. 14. Malnutrition. 15. Failure to thrive. 16. Chronic obstructive pulmonary disease. 17. History of polysubstance abuse. 18. Benign prostatic hypertrophy. 19. Fluid overload. 20. History of hepatitis C. 21. History of posttraumatic stress disorder. 22. History of smoking. RECOMMENDATIONS: 1. Watch count. 2. Watch coagulopathy. 3. PRBC transfusion p.r.n. basis. 4. Heparin IV. 5. Coumadin p.o. 6. Procrit subcutaneously. 7. Iron IV. 8. Cardiology followup. 9. Pulmonary followup. 10. Skin care. 11. Nutrition. 12. Discussed with the staff. Subjective Date patient seen: Feb 08, 2018 Constitutional: Denies: no symptoms, chills, diaphoresis, fever, malaise, weakness, other HEENT: Denies: no symptoms, eye pain, blurred vision, tearing, double vision, ear pain, ear discharge, nose pain, nose congestion, throat pain, throat swelling, mouth pain, mouth swelling, other Cardiovascular: Denies: no symptoms, chest pain, edema, irregular heart rate, lightheadedness, palpitations, syncope, other Respiratory: Denies: no symptoms, cough, orthopnea, shortness of breath, SOB with excertion, SOB at rest, sputum, stridor, wheezing, other Gastrointestinal/Abdominal: Denies: no symptoms, abdomen distended, abdominal pain, black stools, tarry stools, blood in stool, constipated, diarrhea, difficulty swallowing, nausea, poor appetite, poor fluid intake, rectal bleeding , vomiting, other Genitourinary: Denies: no symptoms, burning, discharge, frequency, flank pain, hematuria, incontinence, pain, urgency, other Neurologic/Psychiatric: Denies: no symptoms, anxiety, depressed, emotional problems, headache, numbness, paresthesia, pre-existing deficit, seizure, tingling, tremors, weakness, other Hematologic/Lymphatic: Reports: anemia Allergies: Coded Allergies: No Known Allergies (Unverified , 02/02/18) Subjective Agitated. On anticoagulation. S/P blood transfusion. Objective Last 24 Hour Vital Signs Date Time Temp Pulse Resp B/P (MAP) Pulse Ox O2 Delivery O2 Flow Rate FiO2 02/09/18 20:18 161/70 02/09/18 20:17 161/70 02/09/18 20:00 97.0 80 20 161/70 91 97.0 02/09/18 15:48 98.4 84 18 140/65 93 Room Air 98.4 02/09/18 14:03 154/71 02/09/18 14:02 154/71 02/09/18 13:26 Nasal Cannula 2.0 02/09/18 13:26 92 Nasal Cannula 2.0 28 02/09/18 12:00 98.9 87 18 131/82 98 Room Air 98.9 02/09/18 09:19 99 122/79 02/09/18 09:18 122/79 02/09/18 08:20 97.1 99 19 122/79 Room Air 97.1 02/09/18 06:03 119/70 02/09/18 04:00 97.9 102 19 119/70 90 97.9 02/09/18 00:00 98.5 77 20 149/56 84 98.5 02/08/18 23:30 Nasal Cannula 3.0 02/08/18 23:29 158/59 02/08/18 23:28 97.5 78 16 198/96 Nasal Cannula 3.0 97.5 02/08/18 23:20 158/59 Intake and Output 02/08/18 02/09/18 19:00 07:00 Intake Total 920 ml Output Total 2300 ml Balance 920 ml -2300 ml Intake Oral 920 ml Hemodialysis UF 2300 ml # Bowel Movements 2 Laboratory Tests 02/09/18 06:08: White Blood Count 4.2L, Red Blood Count 2.58L, Hemoglobin 8.2L, Hematocrit 24.2L , Mean Corpuscular Volume 94, Mean Corpuscular Hemoglobin 31.9H, Mean Corpuscular Hemoglobin Concent 34.0, Red Cell Distribution Width 16.0H, Platelet Count 97L, Mean Platelet Volume 6.2L, Neutrophils (%) (Auto) , Lymphocytes (%) (Auto) , Monocytes (%) (Auto) , Eosinophils (%) (Auto) , Basophils (%) (Auto) , Differential Total Cells Counted 100, Neutrophils % ( Manual) 67, Lymphocytes % (Manual) 20, Monocytes % (Manual) 7, Eosinophils % ( Manual) 4H, Basophils % (Manual) 2, Band Neutrophils 0, Platelet Estimate DecreasedL, Platelet Morphology Normal, Hypochromasia 2+, Anisocytosis 1+, Spherocytes 1+, Prothrombin Time 11.7H, Prothromb Time International Ratio 1.1, Sodium Level 145, Potassium Level 3.4L, Chloride Level 100, Carbon Dioxide Level 38H, Anion Gap 7, Blood Urea Nitrogen 56H, Creatinine 6.2H, Estimat Glomerular Filtration Rate 9.2, Glucose Level 93, Calcium Level 8.3L, Phosphorus Level 5.2H, Total Bilirubin 1.1H, Direct Bilirubin 0.3, Aspartate Amino Transf (AST/SGOT) 17, Alanine Aminotransferase (ALT/SGPT) 11L, Alkaline Phosphatase 358H, Total Protein 7.6, Albumin 2.7L, Globulin 4.9, Albumin/ Globulin Ratio 0.6L Height (Feet): 5 Height (Inches): 7.00 Weight (Pounds): 133 General Appearance: agitated Cardiovascular: normal rate, regular rhythm Respiratory/Chest: decreased breath sounds Edema: trace edema Tristen Lewis MD Feb 09, 2018 21:51
[2018-02-09] MEDS ORDERED: Tubing IV Secondary IV ONE (21:55)
[2018-02-09] MEDS ORDERED: NS 275ml ONE (21:55)
--- NOTE | 2018-02-09 22:31 | Pulmonology Progress Note ---
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 titrate fio2 to sat of 92% check Hemoglobin h/h stable Subjective ROS Limited/Unobtainable: No Constitutional: Reports: no symptoms HEENT: Repors: no symptoms Allergies: Coded Allergies: No Known Allergies (Unverified , 02/02/18) Objective Last 24 Hour Vital Signs Date Time Temp Pulse Resp B/P (MAP) Pulse Ox O2 Delivery O2 Flow Rate FiO2 02/09/18 20:18 161/70 02/09/18 20:17 161/70 02/09/18 20:00 97.0 80 20 161/70 91 97.0 02/09/18 15:48 98.4 84 18 140/65 93 Room Air 98.4 02/09/18 14:03 154/71 02/09/18 14:02 154/71 02/09/18 13:26 Nasal Cannula 2.0 02/09/18 13:26 92 Nasal Cannula 2.0 02/09/18 12:00 98.9 87 18 131/82 98 Room Air 98.9 02/09/18 09:19 99 122/79 02/09/18 09:18 122/79 02/09/18 08:20 97.1 99 19 122/79 Room Air 97.1 02/09/18 06:03 119/70 02/09/18 04:00 97.9 102 19 119/70 90 97.9 02/09/18 00:00 98.5 77 20 149/56 84 98.5 02/08/18 23:30 Nasal Cannula 3.0 02/08/18 23:29 158/59 02/08/18 23:28 97.5 78 16 198/96 Nasal Cannula 3.0 97.5 02/08/18 23:20 158/59 Intake and Output 02/08/18 02/09/18 19:00 07:00 Intake Total 920 ml Output Total 2300 ml Balance 920 ml -2300 ml Intake Oral 920 ml Hemodialysis UF 2300 ml # Bowel Movements 2 Objective General Appearance: WD/WN HEENT: normocephalic, atraumatic Respiratory/Chest: chest wall non-tender, lungs clear Cardiovascular: normal peripheral pulses, normal rate, regular rhythm Abdomen: normal bowel sounds, soft, non tender, no organomegaly, non distended Extremities: no cyanosis, no clubbing, no edema Skin: no rash, no lesions 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/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 II-XII grossly normal Laboratory Tests 02/09/18 06:08: White Blood Count 4.2L, Red Blood Count 2.58L, Hemoglobin 8.2L, Hematocrit 24.2L , Mean Corpuscular Volume 94, Mean Corpuscular Hemoglobin 31.9H, Mean Corpuscular Hemoglobin Concent 34.0, Red Cell Distribution Width 16.0H, Platelet Count 97L, Mean Platelet Volume 6.2L, Neutrophils (%) (Auto) , Lymphocytes (%) (Auto) , Monocytes (%) (Auto) , Eosinophils (%) (Auto) , Basophils (%) (Auto) , Differential Total Cells Counted 100, Neutrophils % ( Manual) 67, Lymphocytes % (Manual) 20, Monocytes % (Manual) 7, Eosinophils % ( Manual) 4H, Basophils % (Manual) 2, Band Neutrophils 0, Platelet Estimate DecreasedL, Platelet Morphology Normal, Hypochromasia 2+, Anisocytosis 1+, Spherocytes 1+, Prothrombin Time 11.7H, Prothromb Time International Ratio 1.1, Sodium Level 145, Potassium Level 3.4L, Chloride Level 100, Carbon Dioxide Level 38H, Anion Gap 7, Blood Urea Nitrogen 56H, Creatinine 6.2H, Estimat Glomerular Filtration Rate 9.2, Glucose Level 93, Calcium Level 8.3L, Phosphorus Level 5.2H, Total Bilirubin 1.1H, Direct Bilirubin 0.3, Aspartate Amino Transf (AST/SGOT) 17, Alanine Aminotransferase (ALT/SGPT) 11L, Alkaline Phosphatase 358H, Total Protein 7.6, Albumin 2.7L, Globulin 4.9, Albumin/ Globulin Ratio 0.6L Current Medications Medications (Trade) Dose Ordered Sig/Blessing Route PRN Reason Start Time Stop Time Status Last Admin Dose Admin Acetaminophen (Tylenol) 500 mg 3XW PRN ORAL WITH DIALYSIS 02/08/18 18:00 03/10/18 17:59 Amlodipine Besylate (Norvasc) 10 mg DAILY ORAL 02/09/18 09:00 03/05/18 11:14 02/09/18 09:19 Clonidine HCl (Catapres Tab) 0.1 mg EVERY 8 HOURS ORAL 02/08/18 22:00 03/05/18 13:59 02/09/18 20:18 Clonidine HCl (Catapres Tab) 0.1 mg Q4H PRN ORAL SBP > 160 mmHg 02/08/18 18:00 03/04/18 17:59 Diphenhydramine HCl (Benadryl) 50 mg Q6H PRN IVP WITH DIALYSIS or ITCHING 02/08/18 18:00 03/04/18 17:59 Epoetin Alfonzo (Procrit (for non ESRD use)) 5,000 units SUN-SUN-SUN SUBQ 02/08/18 21:00 03/06/18 20:59 02/08/18 21:00 Folic Acid (Folate) 1 mg DAILY ORAL 02/09/18 09:00 03/06/18 08:59 02/09/18 09:18 Gabapentin (Neurontin) 300 mg THREE TIMES A DAY ORAL 02/08/18 18:00 03/07/18 08:59 02/09/18 17:02 Hydralazine HCl (Apresoline) 25 mg Q8HR ORAL 02/09/18 14:00 03/05/18 12:59 02/09/18 20:17 Iron Sucrose 100 mg/Sodium Chloride 60 ml @ 240 mls/hr TuThSa@2100 IV 02/09/18 21:00 02/16/18 21:14 02/09/18 20:17 Lansoprazole (Prevacid) 30 mg DAILY ORAL 02/09/18 11:00 03/11/18 10:59 02/09/18 11:25 Lorazepam (Ativan 2mg/ml 1ml) 1 mg Q6H PRN IV For Anxiety 02/09/18 11:15 02/16/18 11:14 02/09/18 18:16 Lorazepam (Ativan) 1 mg Q6H PRN ORAL For Anxiety 02/08/18 18:00 02/12/18 17:59 02/09/18 22:27 Oxycodone/ Acetaminophen (Percocet 5-325) 1 tab Q4H PRN ORAL Severe Pain (Pain Scale 7-10) 02/08/18 18:00 02/14/18 17:59 02/09/18 20:18 Prochlorperazine (Compazine) 10 mg Q6H PRN IVP Nausea & Vomiting 02/08/18 17:00 03/09/18 10:59 Quetiapine Fumarate (SEROquel) 25 mg QHS ORAL 02/08/18 21:00 03/07/18 20:59 02/09/18 20:17 Warfarin Sodium (Coumadin per pharmacy) 1 ea DAILY PRN MISC Per rx protocol 02/08/18 18:00 03/10/18 17:59 Zolpidem Tartrate (Ambien) 5 mg HSPRN PRN ORAL Insomnia 02/08/18 21:00 02/13/18 20:59 02/09/18 20:18 Clement Mcleod MD Feb 09, 2018 22:31
[2018-02-10] VITALS: BP 153/84
--- NOTE | 2018-02-10 02:00 | Progress Note ---
DATE: 02/09/2018 SUBJECTIVE: This is a 63-year-old male patient with anemia and GI bleeding. This patient continues to have some mood lability, confusion, and disorganized thought process. He is very agitated and irritable and his cognition has declined below baseline with increase in mood lability. That is why, his attending has requested daily psychiatric consultation. MENTAL STATUS EXAMINATION: This is a 63-year-old male with psychomotor agitation. Mood is irritable and agitated. Affect, guarded and restricted. Intellect poor. Mood, depressed and anxious. Motor activity, psychomotor agitation. Attention span is poor. Orientation x2. Speech is low volume and slurred. Thought process, disorganized and illogical. Thought content, auditory hallucinations and paranoid delusions. Insight and judgment are poor. DIAGNOSIS: Major depression with psychotic features. PLAN: Plan is to treat this patient with a psychotropic medication regimen to stabilize his mood. He does have disorganized thought process. As far as this patient's medication regimen, treat the patient with Neurontin 300 mg three times a day, Ativan 1 mg every 6 hours p.r.n. anxiety and agitation, and Seroquel 25 mg nightly. Provided 18-20 minutes of supportive psychotherapy and encouraged him to interact appropriately with staff and other patients. Chart reviewed and discussed with staff. Rony Corral M.D. DR: Lima JOB#: [id number] CC:
[2018-02-10 03:59] VITALS: BP 147/73
[2018-02-10] MEDS: HydrALAZINE 25mg tab ORAL SCH ×3 (06:17→21:08)
--- NOTE | 2018-02-10 07:27 | General Progress Note ---
Assessment/Plan Problem List: (1) Anemia in chronic kidney disease (CKD) ICD Codes: N18.9 - Chronic kidney disease, unspecified; D63.1 - Anemia in chronic kidney disease SNOMED: 081874887, 242667609 (2) ESRF (end stage renal failure) ICD Codes: N18.6 - End stage renal disease SNOMED: 30784467 (3) Abnormal LFTs ICD Codes: R94.5 - Abnormal results of liver function studies SNOMED: 336938596 Assessment/Plan hx of EGD/colonoscopy 3 months ago per patient, cannot recall location. iron panel WNL OB stool negative X2 monitor H&H, prn transfusions ppi thiamine fu labs outpatient GI procedures Subjective Allergies: Coded Allergies: No Known Allergies (Unverified , 02/02/18) Subjective no event Objective Last 24 Hour Vital Signs Date Time Temp Pulse Resp B/P (MAP) Pulse Ox O2 Delivery O2 Flow Rate FiO2 02/10/18 06:17 147/73 02/10/18 06:17 147/73 02/10/18 04:00 Nasal Cannula 3.0 02/10/18 03:59 97.9 84 20 147/73 91 97.9 02/10/18 00:00 Nasal Cannula 3.0 02/10/18 00:00 98.2 88 20 153/84 90 98.2 02/09/18 20:18 161/70 02/09/18 20:17 161/70 02/09/18 20:00 Nasal Cannula 3.0 02/09/18 20:00 97.0 80 20 161/70 91 97.0 02/09/18 15:48 98.4 84 18 140/65 93 Room Air 98.4 02/09/18 14:03 154/71 02/09/18 14:02 154/71 02/09/18 13:26 Nasal Cannula 2.0 28 02/09/18 13:26 92 Nasal Cannula 2.0 02/09/18 12:00 98.9 87 18 131/82 98 Room Air 98.9 02/09/18 09:19 99 122/79 02/09/18 09:18 122/79 02/09/18 08:20 97.1 99 19 122/79 Room Air 97.1 Intake and Output 02/09/18 02/10/18 19:00 07:00 Intake Total 65 ml Balance 65 ml Intake Oral 5 ml IV Total 60 ml # Bowel Movements 1 Height (Feet): 5 Height (Inches): 7.00 Weight (Pounds): 131 General Appearance: alert EENT: normal ENT inspection Neck: supple Cardiovascular: normal rate Respiratory/Chest: decreased breath sounds Abdomen: normal bowel sounds, non tender, soft Extremities: non-tender RAHEEM RYAN Feb 10, 2018 07:27
[2018-02-10 08:07] LABS: HEMATOCRIT 22.9 % (42.0-52.0); HEMOGLOBIN 7.9 G/DL (14.2-18.0); MEAN CORPUSCULAR VOLUME 94 FL (80-99); PLATELET COUNT 110 K/UL (150-450); RED BLOOD COUNT 2.43 M/UL (4.70-6.10); RED CELL DISTRIBUTION WIDTH 15.3 % (11.6-14.8); WHITE BLOOD COUNT 5.1 K/UL (4.8-10.8)
[2018-02-10 08:08] LABS: INR 1.1 (0.9-1.1)
[2018-02-10 08:15] VITALS: BP 165/79
--- NOTE | 2018-02-10 08:16 | General Progress Note ---
Assessment/Plan Problem List: (1) Abnormal laboratory test result ICD Codes: R89.9 - Unspecified abnormal finding in specimens from other organs , systems and tissues SNOMED: 429992418 (2) ESRD (end stage renal disease) on dialysis ICD Codes: N18.6 - End stage renal disease; Z99.2 - Dependence on renal dialysis SNOMED: 603432469 (3) Hypertension, uncontrolled ICD Codes: I10 - Essential (primary) hypertension SNOMED: 52718204, 35047931 (4) Symptomatic anemia ICD Codes: D64.9 - Anemia, unspecified SNOMED: 529749962 (5) Acute hyperkalemia ICD Codes: E87.5 - Hyperkalemia SNOMED: 6868767 (6) DVT (deep venous thrombosis) ICD Codes: I82.409 - Acute embolism and thrombosis of unspecified deep veins of unspecified lower extremity SNOMED: 944606146 (7) SOB (shortness of breath) ICD Codes: R06.02 - Shortness of breath SNOMED: 352780022 Status: stable, progressing, tolerating diet Assessment/Plan ot pt diet o2 pulm tx gi/heme f/u anticoag pulm f/u cbc bmp am ltach eval vs dc plan Subjective Allergies: Coded Allergies: No Known Allergies (Unverified , 02/02/18) All Systems: reviewed and negative except above Subjective o2nc calm in bed sleepy Objective Last 24 Hour Vital Signs Date Time Temp Pulse Resp B/P (MAP) Pulse Ox O2 Delivery O2 Flow Rate FiO2 02/10/18 06:17 147/73 02/10/18 06:17 147/73 02/10/18 04:00 Nasal Cannula 3.0 02/10/18 03:59 97.9 84 20 147/73 91 97.9 02/10/18 00:00 Nasal Cannula 3.0 02/10/18 00:00 98.2 88 20 153/84 90 98.2 02/09/18 20:18 161/70 02/09/18 20:17 161/70 02/09/18 20:00 Nasal Cannula 3.0 02/09/18 20:00 97.0 80 20 161/70 91 97.0 02/09/18 15:48 98.4 84 18 140/65 93 Room Air 98.4 02/09/18 14:03 154/71 02/09/18 14:02 154/71 02/09/18 13:26 Nasal Cannula 2.0 02/09/18 13:26 92 Nasal Cannula 2.0 02/09/18 12:00 98.9 87 18 131/82 98 Room Air 98.9 02/09/18 09:19 99 122/79 02/09/18 09:18 122/79 02/09/18 08:20 97.1 99 19 122/79 Room Air 97.1 Intake and Output 02/09/18 02/10/18 19:00 07:00 Intake Total 65 ml Balance 65 ml Intake Oral 5 ml IV Total 60 ml # Bowel Movements 1 Laboratory Tests 02/10/18 06:25: White Blood Count 5.1, Red Blood Count 2.43L, Hemoglobin 7.9L, Hematocrit 22.9L , Mean Corpuscular Volume 94, Mean Corpuscular Hemoglobin 32.4H, Mean Corpuscular Hemoglobin Concent 34.3, Red Cell Distribution Width 15.3H, Platelet Count 110L, Mean Platelet Volume 6.3L, Neutrophils (%) (Auto) , Lymphocytes (%) (Auto) , Monocytes (%) (Auto) , Eosinophils (%) (Auto) , Basophils (%) (Auto) , Neutrophils % (Manual) [Pending], Lymphocytes % (Manual) [Pending], Platelet Estimate [Pending], Platelet Morphology [Pending], Prothrombin Time [Pending], Prothromb Time International Ratio [Pending], Sodium Level [Pending], Potassium Level [Pending], Chloride Level [Pending], Carbon Dioxide Level [Pending], Blood Urea Nitrogen [Pending], Creatinine [ Pending], Estimat Glomerular Filtration Rate [Pending], Glucose Level [Pending] , Calcium Level [Pending] Height (Feet): 5 Height (Inches): 7.00 Weight (Pounds): 131 General Appearance: lethargic EENT: normal ENT inspection Neck: normal alignment Cardiovascular: normal peripheral pulses, normal rate, regular rhythm Respiratory/Chest: chest wall non-tender, lungs clear, normal breath sounds Abdomen: normal bowel sounds, non tender, soft Extremities: normal inspection Edema: no edema noted Arm (L), no edema noted Arm (R), no edema noted Leg (L), no edema noted Leg (R), no edema noted Pedal (L), no edema noted Pedal (R), no edema noted Generalized Neurologic: responsive, motor weakness Skin: normal pigmentation, warm/dry PEDRO HUTSON Feb 10, 2018 08:16
[2018-02-10 08:21] LABS: ANION GAP 9 mmol/L (5-15); BLOOD UREA NITROGEN 89 mg/dL (7-18); CALCIUM 8.2 MG/DL (8.5-10.1); CARBON DIOXIDE 34 MMOL/L (21-32); CHLORIDE 100 MMOL/L (98-107); CREATININE 8.6 MG/DL (0.55-1.30); POTASSIUM 3.9 MMOL/L (3.5-5.1); SODIUM 143 MMOL/L (136-145)
[2018-02-10] MEDS ORDERED: Tubing IV Secondary IV ONE (09:34)
[2018-02-10] MEDS ORDERED: NS 275ml ONE (09:34)
--- NOTE | 2018-02-10 12:10 | Nephrology Progress Note ---
Assessment/Plan Problem List: (1) ESRD (end stage renal disease) on dialysis (2) Acute hyperkalemia (3) Hypertension, uncontrolled (4) Left leg DVT (5) Anemia in chronic kidney disease (CKD) Assessment sedated now ESRD, on admission missed dialysis . has high K on admission has fistula right arm Sever Anemia h/o Amyloidosis COPD Plan HD done next 02/11 Transfused Kayexelate as needed BP control, meds adjusted has IVC filter Neg for pulm emboli- DC heparin Subjective ROS Limited/Unobtainable: No Objective Objective Last 24 Hour Vital Signs Date Time Temp Pulse Resp B/P (MAP) Pulse Ox O2 Delivery O2 Flow Rate FiO2 02/10/18 11:48 84 165/79 02/10/18 09:26 Nasal Cannula 3.0 36 02/10/18 09:26 92 Nasal Cannula 3.0 36 02/10/18 08:15 97.9 84 20 165/79 92 Nasal Cannula 3.0 97.9 02/10/18 06:17 147/73 02/10/18 06:17 147/73 02/10/18 04:00 Nasal Cannula 3.0 02/10/18 03:59 97.9 84 20 147/73 91 97.9 02/10/18 00:00 Nasal Cannula 3.0 02/10/18 00:00 98.2 88 20 153/84 90 98.2 02/09/18 20:18 161/70 02/09/18 20:17 161/70 02/09/18 20:00 Nasal Cannula 3.0 02/09/18 20:00 97.0 80 20 161/70 91 97.0 02/09/18 15:48 98.4 84 18 140/65 93 Room Air 98.4 02/09/18 14:03 154/71 02/09/18 14:02 154/71 02/09/18 13:26 Nasal Cannula 2.0 28 02/09/18 13:26 92 Nasal Cannula 2.0 28 Intake and Output 02/09/18 02/10/18 19:00 07:00 Intake Total 65 ml Balance 65 ml Intake Oral 5 ml IV Total 60 ml # Bowel Movements 1 Laboratory Tests 02/10/18 06:25: White Blood Count 5.1, Red Blood Count 2.43L, Hemoglobin 7.9L, Hematocrit 22.9L , Mean Corpuscular Volume 94, Mean Corpuscular Hemoglobin 32.4H, Mean Corpuscular Hemoglobin Concent 34.3, Red Cell Distribution Width 15.3H, Platelet Count 110L, Mean Platelet Volume 6.3L, Neutrophils (%) (Auto) , Lymphocytes (%) (Auto) , Monocytes (%) (Auto) , Eosinophils (%) (Auto) , Basophils (%) (Auto) , Differential Total Cells Counted 100, Neutrophils % ( Manual) 72, Lymphocytes % (Manual) 11L, Monocytes % (Manual) 12H, Eosinophils % (Manual) 5H, Basophils % (Manual) 0, Band Neutrophils 0, Platelet Estimate DecreasedL, Platelet Morphology Normal, Hypochromasia 1+, Anisocytosis 1+, Prothrombin Time 11.6H, Prothromb Time International Ratio 1.1, Sodium Level 143 , Potassium Level 3.9, Chloride Level 100, Carbon Dioxide Level 34H, Anion Gap 9 , Blood Urea Nitrogen 89H, Creatinine 8.6H, Estimat Glomerular Filtration Rate 6.3, Glucose Level 106, Calcium Level 8.2L Height (Feet): 5 Height (Inches): 7.00 Weight (Pounds): 131 General Appearance: no apparent distress, lethargic Cardiovascular: normal rate Respiratory/Chest: decreased breath sounds Abdomen: soft Objective no change DALTON ROSENTHAL Feb 10, 2018 12:10
--- NOTE | 2018-02-10 12:24 | General Progress Note ---
Assessment/Plan Assessment/Plan (1) Right hip pain (2) Right hip Fracture (3) S/p ORIF of right hip Pt will continued on Percocet HOLD OPIOIDS FOR OVERSEDATION OR SBP<90 OR DBP<60 OR O2SAT<92% OR RR<12 D/w Dr. Childers he concurred. Subjective Date patient seen: Feb 10, 2018 Time patient seen: 11:30 - am Allergies: Coded Allergies: No Known Allergies (Unverified , 02/02/18) Subjective Constitutional: Reports: no symptoms Eye: Reports: no symptoms ENT: Reports: no symptoms Respiratory: Reports: no symptoms Cardiovascular: Reports: no symptoms Gastrointestinal: Reports: no symptoms Genitourinary: Reports: no symptoms Musculoskeletal: Reports: no symptoms Skin: Reports: no symptoms Psychiatric: Reports: no symptoms Neurological: Reports: no symptoms Endocrine: Reports: no symptoms Hematologic/Lymphatic: Reports: no symptoms Subjective He reports that the pain continues to fluctuate however it has been tolerated on the Percocet as needed. Using one does in the last 24hrs. Objective Last 24 Hour Vital Signs Date Time Temp Pulse Resp B/P (MAP) Pulse Ox O2 Delivery O2 Flow Rate FiO2 02/10/18 11:48 84 165/79 02/10/18 09:26 Nasal Cannula 3.0 36 02/10/18 09:26 92 Nasal Cannula 3.0 36 02/10/18 08:15 97.9 84 20 165/79 92 Nasal Cannula 3.0 97.9 02/10/18 06:17 147/73 02/10/18 06:17 147/73 02/10/18 04:00 Nasal Cannula 3.0 02/10/18 03:59 97.9 84 20 147/73 91 97.9 02/10/18 00:00 Nasal Cannula 3.0 02/10/18 00:00 98.2 88 20 153/84 90 98.2 02/09/18 20:18 161/70 02/09/18 20:17 161/70 02/09/18 20:00 Nasal Cannula 3.0 02/09/18 20:00 97.0 80 20 161/70 91 97.0 02/09/18 15:48 98.4 84 18 140/65 93 Room Air 98.4 02/09/18 14:03 154/71 02/09/18 14:02 154/71 02/09/18 13:26 Nasal Cannula 2.0 28 02/09/18 13:26 92 Nasal Cannula 2.0 28 Intake and Output 02/09/18 02/10/18 19:00 07:00 Intake Total 65 ml Balance 65 ml Intake Oral 5 ml IV Total 60 ml # Bowel Movements 1 Laboratory Tests 02/10/18 06:25: White Blood Count 5.1, Red Blood Count 2.43L, Hemoglobin 7.9L, Hematocrit 22.9L , Mean Corpuscular Volume 94, Mean Corpuscular Hemoglobin 32.4H, Mean Corpuscular Hemoglobin Concent 34.3, Red Cell Distribution Width 15.3H, Platelet Count 110L, Mean Platelet Volume 6.3L, Neutrophils (%) (Auto) , Lymphocytes (%) (Auto) , Monocytes (%) (Auto) , Eosinophils (%) (Auto) , Basophils (%) (Auto) , Differential Total Cells Counted 100, Neutrophils % ( Manual) 72, Lymphocytes % (Manual) 11L, Monocytes % (Manual) 12H, Eosinophils % (Manual) 5H, Basophils % (Manual) 0, Band Neutrophils 0, Platelet Estimate DecreasedL, Platelet Morphology Normal, Hypochromasia 1+, Anisocytosis 1+, Prothrombin Time 11.6H, Prothromb Time International Ratio 1.1, Sodium Level 143 , Potassium Level 3.9, Chloride Level 100, Carbon Dioxide Level 34H, Anion Gap 9 , Blood Urea Nitrogen 89H, Creatinine 8.6H, Estimat Glomerular Filtration Rate 6.3, Glucose Level 106, Calcium Level 8.2L Height (Feet): 5 Height (Inches): 7.00 Weight (Pounds): 131 Objective General Appearance: no apparent distress, alert HEENT: PERRL, EOMI Neck: non-tender, normal alignment, supple, normal inspection Respiratory/Chest: lungs clear, normal breath sounds, no respiratory distress, no accessory muscle use Cardiovascular/Chest: normal rate, regular rhythm Abdomen: non tender, soft, no organomegaly Extremities: inflammation - right hip tenderness to palpation Skin Exam: normal pigmentation, warm/dry Neurologic: alert, oriented x 3 KANWAL CURRAN Feb 10, 2018 12:24
[2018-02-10 14:33] VITALS: BP 147/68
[2018-02-10] MEDS ORDERED: Warfarin Sodium 3mg ORAL ONE (17:00)
--- NOTE | 2018-02-10 17:23 | Pulmonology Progress Note ---
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 engineering advisor respiratory treatment titrate fio2 to sat of 92% check Hemoglobin on coumadin Subjective ROS Limited/Unobtainable: No Allergies: Coded Allergies: No Known Allergies (Unverified , 02/02/18) Objective Last 24 Hour Vital Signs Date Time Temp Pulse Resp B/P (MAP) Pulse Ox O2 Delivery O2 Flow Rate FiO2 02/10/18 15:03 147/68 02/10/18 15:03 147/68 02/10/18 14:33 98.1 82 20 147/68 98 Nasal Cannula 3.0 98.1 02/10/18 11:48 84 165/79 02/10/18 09:26 Nasal Cannula 3.0 36 02/10/18 09:26 92 Nasal Cannula 3.0 36 02/10/18 08:15 97.9 84 20 165/79 92 Nasal Cannula 3.0 97.9 02/10/18 06:17 147/73 02/10/18 06:17 147/73 02/10/18 04:00 Nasal Cannula 3.0 02/10/18 03:59 97.9 84 20 147/73 91 97.9 02/10/18 00:00 Nasal Cannula 3.0 02/10/18 00:00 98.2 88 20 153/84 90 98.2 02/09/18 20:18 161/70 02/09/18 20:17 161/70 02/09/18 20:00 Nasal Cannula 3.0 02/09/18 20:00 97.0 80 20 161/70 91 97.0 Intake and Output 02/09/18 02/10/18 19:00 07:00 Intake Total 65 ml Balance 65 ml Intake Oral 5 ml IV Total 60 ml # Bowel Movements 1 Objective General Appearance: WD/WN HEENT: normocephalic, atraumatic Respiratory/Chest: chest wall non-tender, lungs clear Cardiovascular: normal peripheral pulses, normal rate, regular rhythm Abdomen: normal bowel sounds, soft, non tender, no organomegaly, non distended Extremities: no cyanosis, no clubbing, no edema Skin: no rash, no lesions Neurologic/Psychiatric: snuff box finisher II-XII grossly normal Laboratory Tests 02/10/18 06:25: White Blood Count 5.1, Red Blood Count 2.43L, Hemoglobin 7.9L, Hematocrit 22.9L , Mean Corpuscular Volume 94, Mean Corpuscular Hemoglobin 32.4H, Mean Corpuscular Hemoglobin Concent 34.3, Red Cell Distribution Width 15.3H, Platelet Count 110L, Mean Platelet Volume 6.3L, Neutrophils (%) (Auto) , Lymphocytes (%) (Auto) , Monocytes (%) (Auto) , Eosinophils (%) (Auto) , Basophils (%) (Auto) , Differential Total Cells Counted 100, Neutrophils % ( Manual) 72, Lymphocytes % (Manual) 11L, Monocytes % (Manual) 12H, Eosinophils % (Manual) 5H, Basophils % (Manual) 0, Band Neutrophils 0, Platelet Estimate DecreasedL, Platelet Morphology Normal, Hypochromasia 1+, Anisocytosis 1+, Prothrombin Time 11.6H, Prothromb Time International Ratio 1.1, Sodium Level 143 , Potassium Level 3.9, Chloride Level 100, Carbon Dioxide Level 34H, Anion Gap 9 , Blood Urea Nitrogen 89H, Creatinine 8.6H, Estimat Glomerular Filtration Rate 6.3, Glucose Level 106, Calcium Level 8.2L Current Medications Medications (Trade) Dose Ordered Sig/Blessing Route PRN Reason Start Time Stop Time Status Last Admin Dose Admin Acetaminophen (Tylenol) 500 mg 3XW PRN ORAL WITH DIALYSIS 02/08/18 18:00 03/10/18 17:59 Amlodipine Besylate (Norvasc) 10 mg DAILY ORAL 02/09/18 09:00 03/05/18 11:14 02/10/18 11:48 Clonidine HCl (Catapres Tab) 0.1 mg EVERY 8 HOURS ORAL 02/08/18 22:00 03/05/18 13:59 02/10/18 15:03 Clonidine HCl (Catapres Tab) 0.1 mg Q4H PRN ORAL SBP > 160 mmHg 02/08/18 18:00 03/04/18 17:59 Diphenhydramine HCl (Benadryl) 50 mg Q6H PRN IVP WITH DIALYSIS or ITCHING 02/08/18 18:00 03/04/18 17:59 Epoetin Alfonzo (Procrit (for non ESRD use)) 5,000 units SUN-WED-SUN SUBQ 02/08/18 21:00 03/06/18 20:59 02/08/18 21:00 Folic Acid (Folate) 1 mg DAILY ORAL 02/09/18 09:00 03/06/18 08:59 02/10/18 11:48 Gabapentin (Neurontin) 300 mg THREE TIMES A DAY ORAL 02/08/18 18:00 03/07/18 08:59 02/10/18 15:04 Hydralazine HCl (Apresoline) 25 mg Q8HR ORAL 02/09/18 14:00 03/05/18 12:59 02/10/18 15:03 Iron Sucrose 100 mg/Sodium Chloride 60 ml @ 240 mls/hr TuThSa@2100 IV 02/09/18 21:00 02/16/18 21:14 02/09/18 20:17 Lansoprazole (Prevacid) 30 mg DAILY ORAL 02/09/18 11:00 03/11/18 10:59 02/10/18 11:48 Lorazepam (Ativan 2mg/ml 1ml) 1 mg Q6H PRN IV For Anxiety 02/09/18 11:15 02/16/18 11:14 02/09/18 18:16 Lorazepam (Ativan) 1 mg Q6H PRN ORAL For Anxiety 02/08/18 18:00 02/12/18 17:59 02/09/18 22:27 Oxycodone/ Acetaminophen (Percocet 5-325) 1 tab Q4H PRN ORAL Severe Pain (Pain Scale 7-10) 02/08/18 18:00 02/14/18 17:59 02/09/18 20:18 Prochlorperazine (Compazine) 10 mg Q6H PRN IVP Nausea & Vomiting 02/08/18 17:00 03/09/18 10:59 Quetiapine Fumarate (SEROquel) 25 mg QHS ORAL 02/08/18 21:00 03/07/18 20:59 02/09/18 20:17 Warfarin Sodium (Coumadin per pharmacy) 1 ea DAILY PRN MISC Per rx protocol 02/08/18 18:00 03/10/18 17:59 Zolpidem Tartrate (Ambien) 5 mg HSPRN PRN ORAL Insomnia 02/08/18 21:00 02/13/18 20:59 02/09/18 20:18 Clement Mcleod MD Feb 10, 2018 17:22
[2018-02-10 18:33] VITALS: BP 138/76
[2018-02-10 20:00] VITALS: BP 148/67
[2018-02-10] MEDS: Zolpidem 5mg tab ORAL PRN (21:08)
--- NOTE | 2018-02-10 21:37 | Cardiology Progress Note ---
Assessment/Plan Assessment/Plan at present time, no evidence of fluid overload Subjective Subjective The patient is sleeping, according to sitter, was sleeping the whole day, but woke up for meals, the patient reports no dyspnea, feels better Objective Last 24 Hour Vital Signs Date Time Temp Pulse Resp B/P (MAP) Pulse Ox O2 Delivery O2 Flow Rate FiO2 02/10/18 21:08 148/67 02/10/18 20:00 97.9 81 22 148/67 94 Nasal Cannula 97.9 02/10/18 18:33 97.0 74 20 138/76 93 Nasal Cannula 3.0 97.0 02/10/18 15:03 147/68 02/10/18 15:03 147/68 02/10/18 14:33 98.1 82 20 147/68 98 Nasal Cannula 3.0 98.1 02/10/18 11:48 84 165/79 02/10/18 09:26 Nasal Cannula 3.0 36 02/10/18 09:26 92 Nasal Cannula 3.0 36 02/10/18 08:15 97.9 84 20 165/79 92 Nasal Cannula 3.0 97.9 02/10/18 06:17 147/73 02/10/18 06:17 147/73 02/10/18 04:00 Nasal Cannula 3.0 02/10/18 03:59 97.9 84 20 147/73 91 97.9 02/10/18 00:00 Nasal Cannula 3.0 02/10/18 00:00 98.2 88 20 153/84 90 98.2 General Appearance: no apparent distress, other - lethargic EENT: PERRL/EOMI Neck: JVD Rhythm: NSR Cardiovascular: normal rate Respiratory/Chest: crackles/rales Abdomen: non tender Intake and Output 02/09/18 02/10/18 19:00 07:00 Intake Total 65 ml Balance 65 ml Intake Oral 5 ml IV Total 60 ml # Bowel Movements 1 Laboratory Tests Test 02/10/18 06:25 White Blood Count 5.1 K/UL (4.8-10.8) Red Blood Count 2.43 M/UL (4.70-6.10) L Hemoglobin 7.9 G/DL (14.2-18.0) L Hematocrit 22.9 % (42.0-52.0) L Mean Corpuscular Volume 94 FL (80-99) Mean Corpuscular Hemoglobin 32.4 PG (27.0-31.0) H Mean Corpuscular Hemoglobin Concent 34.3 G/DL (32.0-36.0) Red Cell Distribution Width 15.3 % (11.6-14.8) H Platelet Count 110 K/UL (150-450) L Mean Platelet Volume 6.3 FL (6.5-10.1) L Neutrophils (%) (Auto) % (45.0-75.0) Lymphocytes (%) (Auto) % (20.0-45.0) Monocytes (%) (Auto) % (1.0-10.0) Eosinophils (%) (Auto) % (0.0-3.0) Basophils (%) (Auto) % (0.0-2.0) Differential Total Cells Counted 100 Neutrophils % (Manual) 72 % (45-75) Lymphocytes % (Manual) 11 % (20-45) L Monocytes % (Manual) 12 % (1-10) H Eosinophils % (Manual) 5 % (0-3) H Basophils % (Manual) 0 % (0-2) Band Neutrophils 0 % (0-8) Platelet Estimate Decreased L Platelet Morphology Normal Hypochromasia 1+ Anisocytosis 1+ Prothrombin Time 11.6 SEC (9.30-11.50) H Prothromb Time International Ratio 1.1 (0.9-1.1) Sodium Level 143 MMOL/L (136-145) Potassium Level 3.9 MMOL/L (3.5-5.1) Chloride Level 100 MMOL/L (98-107) Carbon Dioxide Level 34 MMOL/L (21-32) H Anion Gap 9 mmol/L (5-15) Blood Urea Nitrogen 89 mg/dL (7-18) H Creatinine 8.6 MG/DL (0.55-1.30) H Estimat Glomerular Filtration Rate 6.3 mL/min (>60) Glucose Level 106 MG/DL (74-106) Calcium Level 8.2 MG/DL (8.5-10.1) L Crystal Plasencia MD Feb 10, 2018 21:37
--- NOTE | 2018-02-10 22:30 | Progress Note ---
DATE: 02/10/2018 SUBJECTIVE: The patient is a 63-year-old male with anemia and GI bleed, but he had significant altered mental status and agitation. Cognition has declined below baseline. That is why, his attending has requested daily psychiatric consultation. MENTAL STATUS EXAMINATION: The patient is a 63-year-old male. Appearance is disheveled, irritable, and agitated. Affect, guarded and restricted. Intellect poor. Mood is depressed and anxious. Motor activity, psychomotor agitation. Attention span is poor. Oriented x2. Speech is pressured. DIAGNOSIS: Major depression with psychotic features, rule out pseudodementia. PLAN: Plan is to treat him at the Seroquel 25 mg at bedtime and Ativan 4 mg every six hours p.r.n. anxiety and agitation. Provided 18 to 20 minutes of supportive psychotherapy. . Chart reviewed and discussed with staff. Rony Corral M.D. DR: SCOTTIE JOB#: [id number] CC:
--- NOTE | 2018-02-10 23:08 | General Progress Note ---
Assessment/Plan Assessment/Plan IMPRESSION: 1. Acute deep venous thrombosis, left lower extremities. 2. Status post inferior vena cava filter placement. 3. Anticoagulation with Coumadin. 4. Anticoagulation with IV heparin. 5. History of gastrointestinal bleed. 6. Anemia of kidney disease. --> On Hemodialysis by volunteer manager 7. Anemia of chronic disease. 8. Decreased hemoglobin and hematocrit, rule out gastrointestinal bleed. 9. End-stage renal disease, hemodialysis dependent. 10. History of femoral neck fracture. 11. Hypertension. 12. Acute respiratory failure. 13. Pulmonary edema. 14. Malnutrition. 15. Failure to thrive. 16. Chronic obstructive pulmonary disease. 17. History of polysubstance abuse. 18. Benign prostatic hypertrophy. 19. Fluid overload. 20. History of hepatitis C. 21. History of posttraumatic stress disorder. 22. History of smoking. RECOMMENDATIONS: 1. Watch count. 2. Watch coagulopathy. 3. PRBC transfusion p.r.n. basis. 4. Heparin IV. 5. Coumadin p.o. 6. Procrit subcutaneously. 7. Iron IV. 8. Cardiology followup. 9. Pulmonary followup. 10. Skin care. 11. Nutrition. 12. Discussed with the staff. Subjective Date patient seen: Feb 09, 2018 Constitutional: Denies: no symptoms, chills, diaphoresis, fever, malaise, weakness, other HEENT: Denies: no symptoms, eye pain, blurred vision, tearing, double vision, ear pain, ear discharge, nose pain, nose congestion, throat pain, throat swelling, mouth pain, mouth swelling, other Cardiovascular: Denies: no symptoms, chest pain, edema, irregular heart rate, lightheadedness, palpitations, syncope, other Respiratory: Denies: no symptoms, cough, orthopnea, shortness of breath, SOB with excertion, SOB at rest, sputum, stridor, wheezing, other Gastrointestinal/Abdominal: Denies: no symptoms, abdomen distended, abdominal pain, black stools, tarry stools, blood in stool, constipated, diarrhea, difficulty swallowing, nausea, poor appetite, poor fluid intake, rectal bleeding , vomiting, other Genitourinary: Denies: no symptoms, burning, discharge, frequency, flank pain, hematuria, incontinence, pain, urgency, other Neurologic/Psychiatric: Denies: no symptoms, anxiety, depressed, emotional problems, headache, numbness, paresthesia, pre-existing deficit, seizure, tingling, tremors, weakness, other Hematologic/Lymphatic: Reports: anemia Allergies: Coded Allergies: No Known Allergies (Unverified , 02/02/18) Subjective On pain control. No acute events. No fever. Objective Last 24 Hour Vital Signs Date Time Temp Pulse Resp B/P (MAP) Pulse Ox O2 Delivery O2 Flow Rate FiO2 02/10/18 21:57 Nasal Cannula 2.0 28 02/10/18 21:57 94 Nasal Cannula 2.0 28 02/10/18 21:08 148/67 02/10/18 20:00 97.9 81 22 148/67 94 Nasal Cannula 97.9 02/10/18 18:33 97.0 74 20 138/76 93 Nasal Cannula 3.0 97.0 02/10/18 15:03 147/68 02/10/18 15:03 147/68 02/10/18 14:33 98.1 82 20 147/68 98 Nasal Cannula 3.0 98.1 02/10/18 11:48 84 165/79 02/10/18 09:26 Nasal Cannula 3.0 36 02/10/18 09:26 92 Nasal Cannula 3.0 36 02/10/18 08:15 97.9 84 20 165/79 92 Nasal Cannula 3.0 97.9 02/10/18 06:17 147/73 02/10/18 06:17 147/73 02/10/18 04:00 Nasal Cannula 3.0 02/10/18 03:59 97.9 84 20 147/73 91 97.9 02/10/18 00:00 Nasal Cannula 3.0 02/10/18 00:00 98.2 88 20 153/84 90 98.2 Intake and Output 02/09/18 02/10/18 19:00 07:00 Intake Total 65 ml Balance 65 ml Intake Oral 5 ml IV Total 60 ml # Bowel Movements 1 Laboratory Tests 02/10/18 06:25: White Blood Count 5.1, Red Blood Count 2.43L, Hemoglobin 7.9L, Hematocrit 22.9L , Mean Corpuscular Volume 94, Mean Corpuscular Hemoglobin 32.4H, Mean Corpuscular Hemoglobin Concent 34.3, Red Cell Distribution Width 15.3H, Platelet Count 110L, Mean Platelet Volume 6.3L, Neutrophils (%) (Auto) , Lymphocytes (%) (Auto) , Monocytes (%) (Auto) , Eosinophils (%) (Auto) , Basophils (%) (Auto) , Differential Total Cells Counted 100, Neutrophils % ( Manual) 72, Lymphocytes % (Manual) 11L, Monocytes % (Manual) 12H, Eosinophils % (Manual) 5H, Basophils % (Manual) 0, Band Neutrophils 0, Platelet Estimate DecreasedL, Platelet Morphology Normal, Hypochromasia 1+, Anisocytosis 1+, Prothrombin Time 11.6H, Prothromb Time International Ratio 1.1, Sodium Level 143 , Potassium Level 3.9, Chloride Level 100, Carbon Dioxide Level 34H, Anion Gap 9 , Blood Urea Nitrogen 89H, Creatinine 8.6H, Estimat Glomerular Filtration Rate 6.3, Glucose Level 106, Calcium Level 8.2L Height (Feet): 5 Height (Inches): 7.00 Weight (Pounds): 131 General Appearance: no apparent distress EENT: normal ENT inspection Neck: normal alignment Cardiovascular: normal rate, regular rhythm Respiratory/Chest: lungs clear, normal breath sounds Abdomen: non tender, soft Tristen Lewis MD Feb 10, 2018 23:08
[2018-02-11] VITALS (9 sets, daily range): BP systolic 121–195; BP diastolic 63–98
[2018-02-11] MEDS: HydrALAZINE 25mg tab ORAL SCH ×3 (05:45→22:00)
[2018-02-11] MEDS: oxyCODONE HCL/Acetaminophen 5/325mg ORAL PRN (05:47)
[2018-02-11 07:12] LABS: HEMATOCRIT 21.1 % (42.0-52.0); HEMOGLOBIN 7.4 G/DL (14.2-18.0); MEAN CORPUSCULAR VOLUME 94 FL (80-99); PLATELET COUNT 101 K/UL (150-450); RED BLOOD COUNT 2.23 M/UL (4.70-6.10); RED CELL DISTRIBUTION WIDTH 16.2 % (11.6-14.8); WHITE BLOOD COUNT 4.3 K/UL (4.8-10.8)
[2018-02-11 07:14] LABS: ANION GAP 13 mmol/L (5-15); BLOOD UREA NITROGEN 112 mg/dL (7-18); CARBON DIOXIDE 30 MMOL/L (21-32); CHLORIDE 100 MMOL/L (98-107); CREATININE 9.8 MG/DL (0.55-1.30); POTASSIUM 4.4 MMOL/L (3.5-5.1); SODIUM 143 MMOL/L (136-145)
[2018-02-11 07:30] LABS: INR 1.1 (0.9-1.1)
[2018-02-11] MEDS: LORazepam 1mg tab ORAL PRN ×2 (08:15→20:54)
--- NOTE | 2018-02-11 09:00 | General Progress Note ---
Assessment/Plan Assessment/Plan (1) Right hip pain (2) Right hip Fracture (3) S/p ORIF of right hip Pt will continued on Percocet HOLD OPIOIDS FOR OVERSEDATION OR SBP<90 OR DBP<60 OR O2SAT<92% OR RR<12 D/w Dr. Childers he concurred. Subjective Date patient seen: Feb 11, 2018 Time patient seen: 07:15 - am Allergies: Coded Allergies: No Known Allergies (Unverified , 02/02/18) Subjective Constitutional: Reports: no symptoms Eye: Reports: no symptoms ENT: Reports: no symptoms Respiratory: Reports: no symptoms Cardiovascular: Reports: no symptoms Gastrointestinal: Reports: no symptoms Genitourinary: Reports: no symptoms Musculoskeletal: Reports: no symptoms Skin: Reports: no symptoms Psychiatric: Reports: no symptoms Neurological: Reports: no symptoms Endocrine: Reports: no symptoms Hematologic/Lymphatic: Reports: no symptoms Subjective In bed no signs of pain or distress. Pain is controlled on the Percocet one dose given today. Objective Last 24 Hour Vital Signs Date Time Temp Pulse Resp B/P (MAP) Pulse Ox O2 Delivery O2 Flow Rate FiO2 02/11/18 08:15 75 149/78 02/11/18 08:00 97.2 75 19 149/78 96 97.2 02/11/18 05:45 143/80 02/11/18 05:45 143/80 02/11/18 04:00 97.3 80 20 143/80 96 97.3 02/11/18 00:11 96.6 77 20 151/68 93 Nasal Cannula 96.6 02/10/18 21:57 Nasal Cannula 2.0 28 02/10/18 21:57 94 Nasal Cannula 2.0 28 02/10/18 21:08 148/67 02/10/18 20:00 97.9 81 22 148/67 94 Nasal Cannula 97.9 02/10/18 18:33 97.0 74 20 138/76 93 Nasal Cannula 3.0 97.0 02/10/18 15:03 147/68 02/10/18 15:03 147/68 02/10/18 14:33 98.1 82 20 147/68 98 Nasal Cannula 3.0 98.1 02/10/18 11:48 84 165/79 02/10/18 09:26 Nasal Cannula 3.0 36 02/10/18 09:26 92 Nasal Cannula 3.0 36 Intake and Output 02/10/18 02/11/18 19:00 07:00 Intake Total 1120 ml Balance 1120 ml Intake Oral 1120 ml # Voids 3 # Bowel Movements 1 Laboratory Tests 02/11/18 05:40: White Blood Count 4.3L, Red Blood Count 2.23L, Hemoglobin 7.4L, Hematocrit 21.1L , Mean Corpuscular Volume 94, Mean Corpuscular Hemoglobin 33.0H, Mean Corpuscular Hemoglobin Concent 35.0, Red Cell Distribution Width 16.2H, Platelet Count 101L, Mean Platelet Volume 5.8L, Neutrophils (%) (Auto) , Lymphocytes (%) (Auto) , Monocytes (%) (Auto) , Eosinophils (%) (Auto) , Basophils (%) (Auto) , Neutrophils % (Manual) [Pending], Lymphocytes % (Manual) [Pending], Platelet Estimate [Pending], Platelet Morphology [Pending], Prothrombin Time 11.6H, Prothromb Time International Ratio 1.1, Sodium Level 143 , Potassium Level 4.4, Chloride Level 100, Carbon Dioxide Level 30, Anion Gap 13 , Blood Urea Nitrogen 112H, Creatinine 9.8H, Estimat Glomerular Filtration Rate 5.4, Glucose Level 123H, Calcium Level 8.0L Height (Feet): 5 Height (Inches): 7.00 Weight (Pounds): 133 Objective General Appearance: no apparent distress, alert HEENT: PERRL, EOMI Neck: non-tender, normal alignment, supple, normal inspection Respiratory/Chest: lungs clear, normal breath sounds, no respiratory distress, no accessory muscle use Cardiovascular/Chest: normal rate, regular rhythm Abdomen: non tender, soft, no organomegaly Extremities: inflammation - right hip tenderness to palpation Skin Exam: normal pigmentation, warm/dry Neurologic: alert, oriented x 3 KANWAL CURRAN N. P.Raj Feb 11, 2018 09:00
--- NOTE | 2018-02-11 10:37 | GI Progress Note ---
Assessment/Plan Problems: (1) Abnormal LFTs ICD Codes: R94.5 - Abnormal results of liver function studies SNOMED: 269801845 (2) Symptomatic anemia ICD Codes: D64.9 - Anemia, unspecified SNOMED: 994227073 (3) ESRD (end stage renal disease) on dialysis ICD Codes: N18.6 - End stage renal disease; Z99.2 - Dependence on renal dialysis SNOMED: 548009527 Status: stable Status Narrative Discussed with Dr. Matos. Assessment/Plan hx of EGD/colonoscopy 3 months ago per patient, cannot recall location. iron panel WNL OB stool negative monitor H&H, prn transfusions ppi thiamine fu labs outpatient GI procedures Subjective Subjective denies abdominal pain had EGD/colonoscopy x3 months Objective Last 24 Hour Vital Signs Date Time Temp Pulse Resp B/P (MAP) Pulse Ox O2 Delivery O2 Flow Rate FiO2 02/11/18 08:15 75 149/78 02/11/18 08:00 97.2 75 19 149/78 96 97.2 02/11/18 05:45 143/80 02/11/18 05:45 143/80 02/11/18 04:00 97.3 80 20 143/80 96 97.3 02/11/18 00:11 96.6 77 20 151/68 93 Nasal Cannula 96.6 02/10/18 21:57 Nasal Cannula 2.0 28 02/10/18 21:57 94 Nasal Cannula 2.0 28 02/10/18 21:08 148/67 02/10/18 20:00 97.9 81 22 148/67 94 Nasal Cannula 97.9 02/10/18 18:33 97.0 74 20 138/76 93 Nasal Cannula 3.0 97.0 02/10/18 15:03 147/68 02/10/18 15:03 147/68 02/10/18 14:33 98.1 82 20 147/68 98 Nasal Cannula 3.0 98.1 02/10/18 11:48 84 165/79 Intake and Output 02/10/18 02/11/18 19:00 07:00 Intake Total 1120 ml Balance 1120 ml Intake Oral 1120 ml # Voids 3 # Bowel Movements 1 Laboratory Tests Test 02/11/18 05:40 White Blood Count 4.3 K/UL (4.8-10.8) L Red Blood Count 2.23 M/UL (4.70-6.10) L Hemoglobin 7.4 G/DL (14.2-18.0) L Hematocrit 21.1 % (42.0-52.0) L Mean Corpuscular Volume 94 FL (80-99) Mean Corpuscular Hemoglobin 33.0 PG (27.0-31.0) H Mean Corpuscular Hemoglobin Concent 35.0 G/DL (32.0-36.0) Red Cell Distribution Width 16.2 % (11.6-14.8) H Platelet Count 101 K/UL (150-450) L Mean Platelet Volume 5.8 FL (6.5-10.1) L Neutrophils (%) (Auto) % (45.0-75.0) Lymphocytes (%) (Auto) % (20.0-45.0) Monocytes (%) (Auto) % (1.0-10.0) Eosinophils (%) (Auto) % (0.0-3.0) Basophils (%) (Auto) % (0.0-2.0) Differential Total Cells Counted 100 Neutrophils % (Manual) 70 % (45-75) Lymphocytes % (Manual) 22 % (20-45) Monocytes % (Manual) 3 % (1-10) Eosinophils % (Manual) 5 % (0-3) H Basophils % (Manual) 0 % (0-2) Band Neutrophils 0 % (0-8) Platelet Estimate Decreased L Platelet Morphology Normal Hypochromasia 1+ Anisocytosis 1+ Prothrombin Time 11.6 SEC (9.30-11.50) H Prothromb Time International Ratio 1.1 (0.9-1.1) Sodium Level 143 MMOL/L (136-145) Potassium Level 4.4 MMOL/L (3.5-5.1) Chloride Level 100 MMOL/L (98-107) Carbon Dioxide Level 30 MMOL/L (21-32) Anion Gap 13 mmol/L (5-15) Blood Urea Nitrogen 112 mg/dL (7-18) H Creatinine 9.8 MG/DL (0.55-1.30) H Estimat Glomerular Filtration Rate 5.4 mL/min (>60) Glucose Level 123 MG/DL (74-106) H Calcium Level 8.0 MG/DL (8.5-10.1) L Height (Feet): 5 Height (Inches): 7.00 Weight (Pounds): 133 General Appearance: alert, thin Cardiovascular: normal rate Respiratory/Chest: normal breath sounds Abdominal Exam: no organomegaly Genitourinary/Rectal: normal rectal exam Extremities: normal range of motion, non-tender Freya Aldana N.P. Feb 11, 2018 10:37
--- NOTE | 2018-02-11 13:09 | Nephrology Progress Note ---
Assessment/Plan Problem List: (1) ESRD (end stage renal disease) on dialysis (2) Acute hyperkalemia (3) Hypertension, uncontrolled (4) Left leg DVT (5) Anemia in chronic kidney disease (CKD) Assessment sedated now ESRD, on admission missed dialysis . has high K on admission has fistula right arm Sever Anemia h/o Amyloidosis COPD Plan HD done next 02/11 Transfused Kayexelate as needed BP control, meds adjusted has IVC filter Neg for pulm emboli- DC heparin Subjective ROS Limited/Unobtainable: No Constitutional: Reports: malaise Objective Objective Last 24 Hour Vital Signs Date Time Temp Pulse Resp B/P (MAP) Pulse Ox O2 Delivery O2 Flow Rate FiO2 02/11/18 12:00 97.6 18 162/68 97.6 02/11/18 08:15 75 149/78 02/11/18 08:00 97.2 75 19 149/78 96 97.2 02/11/18 05:45 143/80 02/11/18 05:45 143/80 02/11/18 04:00 97.3 80 20 143/80 96 97.3 02/11/18 00:11 96.6 77 20 151/68 93 Nasal Cannula 96.6 02/10/18 21:57 Nasal Cannula 2.0 28 02/10/18 21:57 94 Nasal Cannula 2.0 28 02/10/18 21:08 148/67 02/10/18 20:00 97.9 81 22 148/67 94 Nasal Cannula 97.9 02/10/18 18:33 97.0 74 20 138/76 93 Nasal Cannula 3.0 97.0 02/10/18 15:03 147/68 02/10/18 15:03 147/68 02/10/18 14:33 98.1 82 20 147/68 98 Nasal Cannula 3.0 98.1 Intake and Output 02/10/18 02/11/18 19:00 07:00 Intake Total 1120 ml Balance 1120 ml Intake Oral 1120 ml # Voids 3 # Bowel Movements 1 Laboratory Tests 02/11/18 05:40: White Blood Count 4.3L, Red Blood Count 2.23L, Hemoglobin 7.4L, Hematocrit 21.1L , Mean Corpuscular Volume 94, Mean Corpuscular Hemoglobin 33.0H, Mean Corpuscular Hemoglobin Concent 35.0, Red Cell Distribution Width 16.2H, Platelet Count 101L, Mean Platelet Volume 5.8L, Neutrophils (%) (Auto) , Lymphocytes (%) (Auto) , Monocytes (%) (Auto) , Eosinophils (%) (Auto) , Basophils (%) (Auto) , Differential Total Cells Counted 100, Neutrophils % ( Manual) 70, Lymphocytes % (Manual) 22, Monocytes % (Manual) 3, Eosinophils % ( Manual) 5H, Basophils % (Manual) 0, Band Neutrophils 0, Platelet Estimate DecreasedL, Platelet Morphology Normal, Hypochromasia 1+, Anisocytosis 1+, Prothrombin Time 11.6H, Prothromb Time International Ratio 1.1, Sodium Level 143 , Potassium Level 4.4, Chloride Level 100, Carbon Dioxide Level 30, Anion Gap 13 , Blood Urea Nitrogen 112H, Creatinine 9.8H, Estimat Glomerular Filtration Rate 5.4, Glucose Level 123H, Calcium Level 8.0L Height (Feet): 5 Height (Inches): 7.00 Weight (Pounds): 133 General Appearance: no apparent distress, agitated - at times Objective no change DALTON ROSENTHAL Feb 11, 2018 13:09
--- NOTE | 2018-02-11 13:10 | Pulmonology Progress Note ---
Assessment/Plan Problems: (1) Acute respiratory failure (2) ESRF (end stage renal failure) (3) Pulmonary edema (4) DVT (deep venous thrombosis) Assessment/Plan improving s/p IVC filter HD by electric organ checker respiratory treatment titrate fio2 to sat of 92% check Hemoglobin on coumadin dc planning Subjective ROS Limited/Unobtainable: No Constitutional: Reports: no symptoms HEENT: Repors: no symptoms Respiratory: Reports: no symptoms Allergies: Coded Allergies: No Known Allergies (Unverified , 02/02/18) Objective Last 24 Hour Vital Signs Date Time Temp Pulse Resp B/P (MAP) Pulse Ox O2 Delivery O2 Flow Rate FiO2 02/11/18 12:00 97.6 18 162/68 97.6 02/11/18 08:15 75 149/78 02/11/18 08:00 97.2 75 19 149/78 96 97.2 02/11/18 05:45 143/80 02/11/18 05:45 143/80 02/11/18 04:00 97.3 80 20 143/80 96 97.3 02/11/18 00:11 96.6 77 20 151/68 93 Nasal Cannula 96.6 02/10/18 21:57 Nasal Cannula 2.0 28 02/10/18 21:57 94 Nasal Cannula 2.0 28 02/10/18 21:08 148/67 02/10/18 20:00 97.9 81 22 148/67 94 Nasal Cannula 97.9 02/10/18 18:33 97.0 74 20 138/76 93 Nasal Cannula 3.0 97.0 02/10/18 15:03 147/68 02/10/18 15:03 147/68 02/10/18 14:33 98.1 82 20 147/68 98 Nasal Cannula 3.0 98.1 Intake and Output 02/10/18 02/11/18 19:00 07:00 Intake Total 1120 ml Balance 1120 ml Intake Oral 1120 ml # Voids 3 # Bowel Movements 1 Objective General Appearance: WD/WN HEENT: normocephalic, atraumatic Respiratory/Chest: chest wall non-tender, lungs clear Cardiovascular: normal peripheral pulses, normal rate, regular rhythm Abdomen: normal bowel sounds, soft, non tender, no organomegaly, non distended Extremities: no cyanosis, no clubbing, no edema Skin: no rash, no lesions Neurologic/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: 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 II-XII grossly normal Laboratory Tests 02/11/18 05:40: White Blood Count 4.3L, Red Blood Count 2.23L, Hemoglobin 7.4L, Hematocrit 21.1L , Mean Corpuscular Volume 94, Mean Corpuscular Hemoglobin 33.0H, Mean Corpuscular Hemoglobin Concent 35.0, Red Cell Distribution Width 16.2H, Platelet Count 101L, Mean Platelet Volume 5.8L, Neutrophils (%) (Auto) , Lymphocytes (%) (Auto) , Monocytes (%) (Auto) , Eosinophils (%) (Auto) , Basophils (%) (Auto) , Differential Total Cells Counted 100, Neutrophils % ( Manual) 70, Lymphocytes % (Manual) 22, Monocytes % (Manual) 3, Eosinophils % ( Manual) 5H, Basophils % (Manual) 0, Band Neutrophils 0, Platelet Estimate DecreasedL, Platelet Morphology Normal, Hypochromasia 1+, Anisocytosis 1+, Prothrombin Time 11.6H, Prothromb Time International Ratio 1.1, Sodium Level 143 , Potassium Level 4.4, Chloride Level 100, Carbon Dioxide Level 30, Anion Gap 13 , Blood Urea Nitrogen 112H, Creatinine 9.8H, Estimat Glomerular Filtration Rate 5.4, Glucose Level 123H, Calcium Level 8.0L Current Medications Medications (Trade) Dose Ordered Sig/Blessing Route PRN Reason Start Time Stop Time Status Last Admin Dose Admin Acetaminophen (Tylenol) 500 mg 3XW PRN ORAL WITH DIALYSIS 02/08/18 18:00 03/10/18 17:59 Amlodipine Besylate (Norvasc) 10 mg DAILY ORAL 02/09/18 09:00 03/05/18 11:14 02/11/18 08:15 Clonidine HCl (Catapres Tab) 0.1 mg EVERY 8 HOURS ORAL 02/08/18 22:00 03/05/18 13:59 02/11/18 05:45 Clonidine HCl (Catapres Tab) 0.1 mg Q4H PRN ORAL SBP > 160 mmHg 02/08/18 18:00 03/04/18 17:59 Diphenhydramine HCl (Benadryl) 50 mg Q6H PRN IVP WITH DIALYSIS or ITCHING 02/08/18 18:00 03/04/18 17:59 Epoetin Alfonzo (Procrit (for non ESRD use)) 5,000 units SUN-SUN-SUN SUBQ 02/08/18 21:00 03/06/18 20:59 02/08/18 21:00 Folic Acid (Folate) 1 mg DAILY ORAL 02/09/18 09:00 03/06/18 08:59 02/11/18 08:15 Gabapentin (Neurontin) 300 mg THREE TIMES A DAY ORAL 02/08/18 18:00 03/07/18 08:59 02/11/18 08:15 Hydralazine HCl (Apresoline) 25 mg Q8HR ORAL 02/09/18 14:00 03/05/18 12:59 02/11/18 05:45 Iron Sucrose 100 mg/Sodium Chloride 60 ml @ 240 mls/hr TuThSa@2100 IV 02/09/18 21:00 02/16/18 21:14 02/09/18 20:17 Lansoprazole (Prevacid) 30 mg DAILY ORAL 02/09/18 11:00 03/11/18 10:59 02/11/18 08:15 Lorazepam (Ativan 2mg/ml 1ml) 1 mg Q6H PRN IV For Anxiety 02/09/18 11:15 02/16/18 11:14 02/09/18 18:16 Lorazepam (Ativan) 1 mg Q6H PRN ORAL For Anxiety 02/08/18 18:00 02/12/18 17:59 02/11/18 08:15 Oxycodone/ Acetaminophen (Percocet 5-325) 1 tab Q4H PRN ORAL Severe Pain (Pain Scale 7-10) 02/08/18 18:00 02/14/18 17:59 02/11/18 05:47 Prochlorperazine (Compazine) 10 mg Q6H PRN IVP Nausea & Vomiting 02/08/18 17:00 03/09/18 10:59 Quetiapine Fumarate (SEROquel) 25 mg QHS ORAL 02/08/18 21:00 03/07/18 20:59 02/10/18 21:06 Warfarin Sodium (Coumadin per pharmacy) 1 ea DAILY PRN MISC Per rx protocol 02/08/18 18:00 03/10/18 17:59 Warfarin Sodium (Coumadin) 7.5 mg COUMADIN ORAL 02/11/18 17:00 02/11/18 18:00 Zolpidem Tartrate (Ambien) 5 mg HSPRN PRN ORAL Insomnia 02/08/18 21:00 02/13/18 20:59 02/10/18 21:08 Clement Mcleod MD Feb 11, 2018 13:10
--- NOTE | 2018-02-11 13:13 | General Progress Note ---
Assessment/Plan Problem List: (1) Abnormal laboratory test result ICD Codes: R89.9 - Unspecified abnormal finding in specimens from other organs , systems and tissues SNOMED: 169084507 (2) ESRD (end stage renal disease) on dialysis ICD Codes: N18.6 - End stage renal disease; Z99.2 - Dependence on renal dialysis SNOMED: 246619194 (3) Hypertension, uncontrolled ICD Codes: I10 - Essential (primary) hypertension SNOMED: 38613579, 65508079 (4) Symptomatic anemia ICD Codes: D64.9 - Anemia, unspecified SNOMED: 391862100 (5) Acute hyperkalemia ICD Codes: E87.5 - Hyperkalemia SNOMED: 1020387 (6) DVT (deep venous thrombosis) ICD Codes: I82.409 - Acute embolism and thrombosis of unspecified deep veins of unspecified lower extremity SNOMED: 236465610 (7) SOB (shortness of breath) ICD Codes: R06.02 - Shortness of breath SNOMED: 791640510 Status: stable, progressing, tolerating diet Assessment/Plan ot pt diet o2 pulm tx gi/heme f/u anticoag pulm f/u cbc bmp am dc if clear Subjective Allergies: Coded Allergies: No Known Allergies (Unverified , 02/02/18) All Systems: reviewed and negative except above Subjective calm in wc Objective Last 24 Hour Vital Signs Date Time Temp Pulse Resp B/P (MAP) Pulse Ox O2 Delivery O2 Flow Rate FiO2 02/11/18 12:00 97.6 18 162/68 97.6 02/11/18 08:15 75 149/78 02/11/18 08:00 97.2 75 19 149/78 96 97.2 02/11/18 05:45 143/80 02/11/18 05:45 143/80 02/11/18 04:00 97.3 80 20 143/80 96 97.3 02/11/18 00:11 96.6 77 20 151/68 93 Nasal Cannula 96.6 02/10/18 21:57 Nasal Cannula 2.0 28 02/10/18 21:57 94 Nasal Cannula 2.0 28 02/10/18 21:08 148/67 02/10/18 20:00 97.9 81 22 148/67 94 Nasal Cannula 97.9 02/10/18 18:33 97.0 74 20 138/76 93 Nasal Cannula 3.0 97.0 02/10/18 15:03 147/68 02/10/18 15:03 147/68 02/10/18 14:33 98.1 82 20 147/68 98 Nasal Cannula 3.0 98.1 Intake and Output 02/10/18 02/11/18 19:00 07:00 Intake Total 1120 ml Balance 1120 ml Intake Oral 1120 ml # Voids 3 # Bowel Movements 1 Laboratory Tests 02/11/18 05:40: White Blood Count 4.3L, Red Blood Count 2.23L, Hemoglobin 7.4L, Hematocrit 21.1L , Mean Corpuscular Volume 94, Mean Corpuscular Hemoglobin 33.0H, Mean Corpuscular Hemoglobin Concent 35.0, Red Cell Distribution Width 16.2H, Platelet Count 101L, Mean Platelet Volume 5.8L, Neutrophils (%) (Auto) , Lymphocytes (%) (Auto) , Monocytes (%) (Auto) , Eosinophils (%) (Auto) , Basophils (%) (Auto) , Differential Total Cells Counted 100, Neutrophils % ( Manual) 70, Lymphocytes % (Manual) 22, Monocytes % (Manual) 3, Eosinophils % ( Manual) 5H, Basophils % (Manual) 0, Band Neutrophils 0, Platelet Estimate DecreasedL, Platelet Morphology Normal, Hypochromasia 1+, Anisocytosis 1+, Prothrombin Time 11.6H, Prothromb Time International Ratio 1.1, Sodium Level 143 , Potassium Level 4.4, Chloride Level 100, Carbon Dioxide Level 30, Anion Gap 13 , Blood Urea Nitrogen 112H, Creatinine 9.8H, Estimat Glomerular Filtration Rate 5.4, Glucose Level 123H, Calcium Level 8.0L Height (Feet): 5 Height (Inches): 7.00 Weight (Pounds): 133 General Appearance: alert EENT: normal ENT inspection Neck: normal alignment Cardiovascular: normal peripheral pulses, normal rate, regular rhythm Respiratory/Chest: chest wall non-tender, lungs clear, normal breath sounds Abdomen: normal bowel sounds, non tender, soft Extremities: normal inspection Edema: no edema noted Arm (L), no edema noted Arm (R), no edema noted Leg (L), no edema noted Leg (R), no edema noted Pedal (L), no edema noted Pedal (R), no edema noted Generalized Neurologic: responsive, motor weakness Skin: normal pigmentation, warm/dry PEDRO HUTSON Feb 11, 2018 13:13
--- NOTE | 2018-02-11 13:22 | General Progress Note ---
Assessment/Plan Assessment/Plan IMPRESSION: 1. Acute deep venous thrombosis, left lower extremities. 2. Status post inferior vena cava filter placement. 3. Anticoagulation with Coumadin. 4. Anticoagulation with IV heparin. 5. History of gastrointestinal bleed. 6. Anemia of kidney disease. --> On Hemodialysis by financial analyst accountant 7. Anemia of chronic disease. 8. Decreased hemoglobin and hematocrit, rule out gastrointestinal bleed. 9. End-stage renal disease, hemodialysis dependent. 10. History of femoral neck fracture. 11. Hypertension. 12. Acute respiratory failure. 13. Pulmonary edema. 14. Malnutrition. 15. Failure to thrive. 16. Chronic obstructive pulmonary disease. 17. History of polysubstance abuse. 18. Benign prostatic hypertrophy. 19. Fluid overload. 20. History of hepatitis C. 21. History of posttraumatic stress disorder. 22. History of smoking. RECOMMENDATIONS: 1. Watch count. 2. Watch coagulopathy. 3. PRBC transfusion p.r.n. basis. 4. Heparin IV. 5. Coumadin p.o. 6. Procrit subcutaneously. 7. Iron IV. 8. Cardiology followup. 9. Pulmonary followup. 10. Skin care. 11. Nutrition. 12. Discussed with the staff. Subjective Date patient seen: Feb 10, 2018 Constitutional: Denies: no symptoms, chills, diaphoresis, fever, malaise, weakness, other HEENT: Denies: no symptoms, eye pain, blurred vision, tearing, double vision, ear pain, ear discharge, nose pain, nose congestion, throat pain, throat swelling, mouth pain, mouth swelling, other Cardiovascular: Denies: no symptoms, chest pain, edema, irregular heart rate, lightheadedness, palpitations, syncope, other Respiratory: Denies: no symptoms, cough, orthopnea, shortness of breath, SOB with excertion, SOB at rest, sputum, stridor, wheezing, other Gastrointestinal/Abdominal: Denies: no symptoms, abdomen distended, abdominal pain, black stools, tarry stools, blood in stool, constipated, diarrhea, difficulty swallowing, nausea, poor appetite, poor fluid intake, rectal bleeding , vomiting, other Genitourinary: Denies: no symptoms, burning, discharge, frequency, flank pain, hematuria, incontinence, pain, urgency, other Neurologic/Psychiatric: Denies: no symptoms, anxiety, depressed, emotional problems, headache, numbness, paresthesia, pre-existing deficit, seizure, tingling, tremors, weakness, other Hematologic/Lymphatic: Reports: anemia Allergies: Coded Allergies: No Known Allergies (Unverified , 02/02/18) Subjective On pain control. No acute events. H/H downtrended. Objective Last 24 Hour Vital Signs Date Time Temp Pulse Resp B/P (MAP) Pulse Ox O2 Delivery O2 Flow Rate FiO2 02/11/18 12:00 97.6 18 162/68 97.6 02/11/18 08:15 75 149/78 02/11/18 08:00 97.2 75 19 149/78 96 97.2 02/11/18 05:45 143/80 02/11/18 05:45 143/80 02/11/18 04:00 97.3 80 20 143/80 96 97.3 02/11/18 00:11 96.6 77 20 151/68 93 Nasal Cannula 96.6 02/10/18 21:57 Nasal Cannula 2.0 28 02/10/18 21:57 94 Nasal Cannula 2.0 28 02/10/18 21:08 148/67 02/10/18 20:00 97.9 81 22 148/67 94 Nasal Cannula 97.9 02/10/18 18:33 97.0 74 20 138/76 93 Nasal Cannula 3.0 97.0 02/10/18 15:03 147/68 02/10/18 15:03 147/68 02/10/18 14:33 98.1 82 20 147/68 98 Nasal Cannula 3.0 98.1 Intake and Output 02/10/18 02/11/18 19:00 07:00 Intake Total 1120 ml Balance 1120 ml Intake Oral 1120 ml # Voids 3 # Bowel Movements 1 Laboratory Tests 02/11/18 05:40: White Blood Count 4.3L, Red Blood Count 2.23L, Hemoglobin 7.4L, Hematocrit 21.1L , Mean Corpuscular Volume 94, Mean Corpuscular Hemoglobin 33.0H, Mean Corpuscular Hemoglobin Concent 35.0, Red Cell Distribution Width 16.2H, Platelet Count 101L, Mean Platelet Volume 5.8L, Neutrophils (%) (Auto) , Lymphocytes (%) (Auto) , Monocytes (%) (Auto) , Eosinophils (%) (Auto) , Basophils (%) (Auto) , Differential Total Cells Counted 100, Neutrophils % ( Manual) 70, Lymphocytes % (Manual) 22, Monocytes % (Manual) 3, Eosinophils % ( Manual) 5H, Basophils % (Manual) 0, Band Neutrophils 0, Platelet Estimate DecreasedL, Platelet Morphology Normal, Hypochromasia 1+, Anisocytosis 1+, Prothrombin Time 11.6H, Prothromb Time International Ratio 1.1, Sodium Level 143 , Potassium Level 4.4, Chloride Level 100, Carbon Dioxide Level 30, Anion Gap 13 , Blood Urea Nitrogen 112H, Creatinine 9.8H, Estimat Glomerular Filtration Rate 5.4, Glucose Level 123H, Calcium Level 8.0L Height (Feet): 5 Height (Inches): 7.00 Weight (Pounds): 133 General Appearance: no apparent distress Neck: normal alignment Cardiovascular: normal rate, regular rhythm Respiratory/Chest: chest wall non-tender Abdomen: normal bowel sounds, non tender Tristen Lewis MD Feb 11, 2018 13:22
[2018-02-11] MEDS ORDERED: Warfarin Sodium 7.5mg ORAL SCH (17:00)
[2018-02-11] MEDS ORDERED: DiphenhydrAMINE 50mg/ml Inj IVP ONE (17:45)
[2018-02-11] MEDS: Zolpidem 5mg tab ORAL PRN (20:54)
[2018-02-11] MEDS: Epogen (for non ESRD use) SUBQ SCH (20:55)
[2018-02-12] VITALS: BP 151/68
[2018-02-12] MEDS: oxyCODONE HCL/Acetaminophen 5/325mg ORAL PRN ×4 (00:07→19:58)
--- NOTE | 2018-02-12 00:38 | General Progress Note ---
Assessment/Plan Assessment/Plan IMPRESSION: 1. Acute deep venous thrombosis, left lower extremities. 2. Status post inferior vena cava filter placement. 3. Anticoagulation with Coumadin. 4. Anticoagulation with IV heparin. 5. History of gastrointestinal bleed. 6. Anemia of kidney disease. 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 Anemia of chronic disease. 8. Decreased hemoglobin and hematocrit, rule out gastrointestinal bleed. 9. End-stage renal disease, hemodialysis dependent. 10. History of femoral neck fracture. 11. Hypertension. 12. Acute respiratory failure. 13. Pulmonary edema. 14. Malnutrition. 15. Failure to thrive. 16. Chronic obstructive pulmonary disease. 17. History of polysubstance abuse. 18. Benign prostatic hypertrophy. 19. Fluid overload. 20. History of hepatitis C. 21. History of posttraumatic stress disorder. 22. History of smoking. RECOMMENDATIONS: 1. Watch count. 2. Watch coagulopathy. 3. PRBC transfusion p.r.n. basis. 4. Heparin IV. 5. Coumadin p.o. 6. Procrit subcutaneously. 7. Iron IV. 8. Cardiology followup. 9. Pulmonary followup. 10. Skin care. 11. Nutrition. 12. Discussed with the staff. Subjective Date patient seen: March 14, 2008 Constitutional: Denies: no symptoms, chills, diaphoresis, fever, malaise, weakness, other HEENT: Denies: no symptoms, eye pain, blurred vision, tearing, double vision, ear pain, ear discharge, nose pain, nose congestion, throat pain, throat swelling, mouth pain, mouth swelling, other Cardiovascular: Denies: no symptoms, chest pain, edema, irregular heart rate, lightheadedness, palpitations, syncope, other Respiratory: Denies: no symptoms, cough, orthopnea, shortness of breath, SOB with excertion, SOB at rest, sputum, stridor, wheezing, other Gastrointestinal/Abdominal: Denies: no symptoms, abdomen distended, abdominal pain, black stools, tarry stools, blood in stool, constipated, diarrhea, difficulty swallowing, nausea, poor appetite, poor fluid intake, rectal bleeding , vomiting, other Genitourinary: Denies: no symptoms, burning, discharge, frequency, flank pain, hematuria, incontinence, pain, urgency, other Neurologic/Psychiatric: Denies: no symptoms, anxiety, depressed, emotional problems, headache, numbness, paresthesia, pre-existing deficit, seizure, tingling, tremors, weakness, other Hematologic/Lymphatic: Reports: anemia Allergies: Coded Allergies: No Known Allergies (Unverified , 02/02/18) Subjective H/H downtrended. On anticoag. No acute events. Objective Last 24 Hour Vital Signs Date Time Temp Pulse Resp B/P (MAP) Pulse Ox O2 Delivery O2 Flow Rate FiO2 02/11/18 22:17 81 121/68 02/11/18 22:00 121/68 02/11/18 22:00 121/68 02/11/18 21:53 Room Air 02/11/18 21:43 97.8 62 20 168/90 Room Air 97.8 02/11/18 21:33 Nasal Cannula 2.0 28 02/11/18 21:33 95 Nasal Cannula 2.0 28 02/11/18 20:00 97.5 73 20 159/83 89 97.5 02/11/18 18:00 Room Air 02/11/18 18:00 97.6 73 24 195/98 Room Air 97.6 02/11/18 16:00 97.2 71 20 157/74 99 Room Air 97.2 02/11/18 14:00 162/68 02/11/18 14:00 162/68 02/11/18 12:00 97.6 18 162 97.6 02/11/18 08:15 75 149/78 02/11/18 08:00 97.2 75 19 149/78 96 97.2 02/11/18 05:45 143/80 02/11/18 05:45 143/80 02/11/18 04:00 97.3 80 20 143/80 96 97.3 Intake and Output 02/11/18 02/12/18 19:00 07:00 Output Total 3000 ml Balance -3000 ml Hemodialysis UF 3000 ml Laboratory Tests 02/11/18 05:40: White Blood Count 4.3L, Red Blood Count 2.23L, Hemoglobin 7.4L, Hematocrit 21.1L , Mean Corpuscular Volume 94, Mean Corpuscular Hemoglobin 33.0H, Mean Corpuscular Hemoglobin Concent 35.0, Red Cell Distribution Width 16.2H, Platelet Count 101L, Mean Platelet Volume 5.8L, Neutrophils (%) (Auto) , Lymphocytes (%) (Auto) , Monocytes (%) (Auto) , Eosinophils (%) (Auto) , Basophils (%) (Auto) , Differential Total Cells Counted 100, Neutrophils % ( Manual) 70, Lymphocytes % (Manual) 22, Monocytes % (Manual) 3, Eosinophils % ( Manual) 5H, Basophils % (Manual) 0, Band Neutrophils 0, Platelet Estimate DecreasedL, Platelet Morphology Normal, Hypochromasia 1+, Anisocytosis 1+, Prothrombin Time 11.6H, Prothromb Time International Ratio 1.1, Sodium Level 143 , Potassium Level 4.4, Chloride Level 100, Carbon Dioxide Level 30, Anion Gap 13 , Blood Urea Nitrogen 112H, Creatinine 9.8H, Estimat Glomerular Filtration Rate 5.4, Glucose Level 123H, Calcium Level 8.0L Height (Feet): 5 Height (Inches): 7.00 Weight (Pounds): 133 General Appearance: no apparent distress Neck: supple Cardiovascular: normal rate, regular rhythm Respiratory/Chest: decreased breath sounds Abdomen: non tender, soft Tristen Lewis MD February 12, 2018 00:38
[2018-02-12 04:00] VITALS: BP 166/79
[2018-02-12] MEDS: HydrALAZINE 25mg tab ORAL SCH ×3 (05:11→22:02)
[2018-02-12 08:00] VITALS: BP 191/80
--- NOTE | 2018-02-12 08:49 | General Progress Note ---
Assessment/Plan Assessment/Plan (1) Right hip pain (2) Right hip Fracture (3) S/p ORIF of right hip Pt will continued on Percocet HOLD OPIOIDS FOR OVERSEDATION OR SBP<90 OR DBP<60 OR O2SAT<92% OR RR<12 D/w Dr. Childers he concurred. Subjective Date patient seen: February 12, 2018 Time patient seen: 07:30 - am Allergies: Coded Allergies: No Known Allergies (Unverified , 02/02/18) Subjective Constitutional: Reports: no symptoms Eye: Reports: no symptoms ENT: Reports: no symptoms Respiratory: Reports: no symptoms Cardiovascular: Reports: no symptoms Gastrointestinal: Reports: no symptoms Genitourinary: Reports: no symptoms Musculoskeletal: Reports: no symptoms Skin: Reports: no symptoms Psychiatric: Reports: no symptoms Neurological: Reports: no symptoms Endocrine: Reports: no symptoms Hematologic/Lymphatic: Reports: no symptoms Subjective Sitting in wheel chair no signs of pain waiting to be transferred to SNF as per pump servicer. Objective Last 24 Hour Vital Signs Date Time Temp Pulse Resp B/P (MAP) Pulse Ox O2 Delivery O2 Flow Rate FiO2 02/12/18 05:11 147/67 02/12/18 04:00 97.5 87 20 166/79 91 97.5 02/12/18 00:00 97.3 87 20 151/68 90 97.3 02/11/18 22:17 81 121/68 02/11/18 22:00 121/68 02/11/18 22:00 121/68 02/11/18 21:53 Room Air 02/11/18 21:43 97.8 62 20 168/90 Room Air 97.8 02/11/18 21:33 Nasal Cannula 2.0 28 02/11/18 21:33 95 Nasal Cannula 2.0 28 02/11/18 20:00 97.5 73 20 159/83 89 97.5 02/11/18 18:00 Room Air 02/11/18 18:00 97.6 73 24 195/98 Room Air 97.6 02/11/18 16:00 97.2 71 20 157/74 99 Room Air 97.2 02/11/18 14:00 162/68 02/11/18 14:00 162/68 02/11/18 12:00 97.6 18 16268 97.6 Intake and Output 02/11/18 02/12/18 19:00 07:00 Output Total 3000 ml Balance -3000 ml Hemodialysis UF 3000 ml Height (Feet): 5 Height (Inches): 7.00 Weight (Pounds): 134 Objective General Appearance: no apparent distress, alert HEENT: PERRL, EOMI Neck: non-tender, normal alignment, supple, normal inspection Respiratory/Chest: lungs clear, normal breath sounds, no respiratory distress, no accessory muscle use Cardiovascular/Chest: normal rate, regular rhythm Abdomen: non tender, soft, no organomegaly Extremities: inflammation - right hip tenderness to palpation Skin Exam: normal pigmentation, warm/dry Neurologic: alert, oriented x 3 KANWAL CURRNA February 12, 2018 08:49
[2018-02-12 08:52] LABS: HEMATOCRIT 22.7 % (42.0-52.0); HEMOGLOBIN 7.6 G/DL (14.2-18.0); MEAN CORPUSCULAR VOLUME 95 FL (80-99); PLATELET COUNT 128 K/UL (150-450); RED BLOOD COUNT 2.38 M/UL (4.70-6.10); RED CELL DISTRIBUTION WIDTH 16.5 % (11.6-14.8); WHITE BLOOD COUNT 5.2 K/UL (4.8-10.8)
[2018-02-12 09:00] LABS: ANION GAP 9 mmol/L (5-15); BLOOD UREA NITROGEN 72 mg/dL (7-18); CALCIUM 8.5 MG/DL (8.5-10.1); CARBON DIOXIDE 33 MMOL/L (21-32); CHLORIDE 101 MMOL/L (98-107); CREATININE 6.9 MG/DL (0.55-1.30); POTASSIUM 3.9 MMOL/L (3.5-5.1); SODIUM 143 MMOL/L (136-145)
[2018-02-12 09:03] LABS: INR 1.2 (0.9-1.1)
[2018-02-12] MEDS: LORazepam 1mg tab ORAL PRN ×2 (09:39→19:58)
[2018-02-12 12:00] VITALS: BP 131/79
--- NOTE | 2018-02-12 13:36 | Pulmonology Progress Note ---
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 titrate fio2 to sat of 92% check Hemoglobin on coumadin, INR is 1.2 dc planning Subjective ROS Limited/Unobtainable: No Constitutional: Reports: no symptoms HEENT: Repors: no symptoms Respiratory: Reports: no symptoms Allergies: Coded Allergies: No Known Allergies (Unverified , 02/02/18) Objective Last 24 Hour Vital Signs Date Time Temp Pulse Resp B/P (MAP) Pulse Ox O2 Delivery O2 Flow Rate FiO2 02/12/18 12:00 97.9 89 17 131/79 91 Room Air 97.9 02/12/18 09:39 92 191/80 02/12/18 08:00 98.4 92 18 191/80 95 98.4 02/12/18 05:11 147/67 02/12/18 04:00 97.5 87 20 166/79 91 97.5 02/12/18 00:00 97.3 87 20 151/68 90 97.3 02/11/18 22:17 81 121/68 02/11/18 22:00 121/68 02/11/18 22:00 121/68 02/11/18 21:53 Room Air 02/11/18 21:43 97.8 62 20 168/90 Room Air 97.8 02/11/18 21:33 Nasal Cannula 2.0 28 02/11/18 21:33 95 Nasal Cannula 2.0 28 02/11/18 20:00 97.5 73 20 159/83 89 97.5 02/11/18 18:00 Room Air 02/11/18 18:00 97.6 73 24 195/98 Room Air 97.6 02/11/18 16:00 97.2 71 20 157/74 99 Room Air 97.2 02/11/18 14:00 162/68 02/11/18 14:00 162/68 Intake and Output 02/11/18 02/12/18 19:00 07:00 Output Total 3000 ml Balance -3000 ml Hemodialysis UF 3000 ml Objective General Appearance: WD/WN HEENT: normocephalic, atraumatic Respiratory/Chest: chest wall non-tender, lungs clear Cardiovascular: normal peripheral pulses, normal rate, regular rhythm Abdomen: normal bowel sounds, soft, non tender, no organomegaly, non distended Extremities: no cyanosis, no clubbing, no edema Skin: no rash, no lesions Neurologic/Psychiatric: hide selector II-XII grossly normal Laboratory Tests 02/12/18 08:40: White Blood Count 5.2, Red Blood Count 2.38L, Hemoglobin 7.6L, Hematocrit 22.7L , Mean Corpuscular Volume 95, Mean Corpuscular Hemoglobin 32.1H, Mean Corpuscular Hemoglobin Concent 33.7, Red Cell Distribution Width 16.5H, Platelet Count 128L, Mean Platelet Volume 5.6L, Neutrophils (%) (Auto) , Lymphocytes (%) (Auto) , Monocytes (%) (Auto) , Eosinophils (%) (Auto) , Basophils (%) (Auto) , Differential Total Cells Counted 100, Neutrophils % ( Manual) 72, Lymphocytes % (Manual) 24, Monocytes % (Manual) 2, Eosinophils % ( Manual) 2, Basophils % (Manual) 0, Band Neutrophils 0, Platelet Estimate DecreasedL, Platelet Morphology Normal, Hypochromasia 1+, Anisocytosis 1+, Prothrombin Time 12.2H, Prothromb Time International Ratio 1.2H, Sodium Level 143, Potassium Level 3.9, Chloride Level 101, Carbon Dioxide Level 33H, Anion Gap 9, Blood Urea Nitrogen 72H, Creatinine 6.9H, Estimat Glomerular Filtration Rate 8.1, Glucose Level 140H, Calcium Level 8.5 Current Medications Medications (Trade) Dose Ordered Sig/Blessing Route PRN Reason Start Time Stop Time Status Last Admin Dose Admin Acetaminophen (Tylenol) 500 mg 3XW PRN ORAL WITH DIALYSIS 02/08/18 18:00 03/10/18 17:59 Amlodipine Besylate (Norvasc) 10 mg DAILY ORAL 02/09/18 09:00 03/05/18 11:14 02/12/18 09:39 Clonidine HCl (Catapres Tab) 0.1 mg EVERY 8 HOURS ORAL 02/08/18 22:00 03/05/18 13:59 02/11/18 05:45 Clonidine HCl (Catapres Tab) 0.1 mg Q4H PRN ORAL SBP > 160 mmHg 02/08/18 18:00 03/04/18 17:59 Diphenhydramine HCl (Benadryl) 50 mg Q6H PRN IVP WITH DIALYSIS or ITCHING 02/08/18 18:00 03/04/18 17:59 Epoetin Alfonzo (Procrit (for non ESRD use)) 5,000 units SUN-SUN-SUN SUBQ 02/08/18 21:00 03/06/18 20:59 02/11/18 20:55 Folic Acid (Folate) 1 mg DAILY ORAL 02/09/18 09:00 03/06/18 08:59 02/12/18 09:40 Gabapentin (Neurontin) 300 mg THREE TIMES A DAY ORAL 02/08/18 18:00 03/07/18 08:59 02/12/18 09:40 Hydralazine HCl (Apresoline) 25 mg Q8HR ORAL 02/09/18 14:00 03/05/18 12:59 02/12/18 05:11 Iron Sucrose 100 mg/Sodium Chloride 60 ml @ 240 mls/hr TuThSa@2100 IV 02/09/18 21:00 02/16/18 21:14 02/09/18 20:17 Lansoprazole (Prevacid) 30 mg DAILY ORAL 02/09/18 11:00 03/11/18 10:59 02/12/18 09:40 Lorazepam (Ativan 2mg/ml 1ml) 1 mg Q6H PRN IV For Anxiety 02/09/18 11:15 02/16/18 11:14 02/09/18 18:16 Lorazepam (Ativan) 1 mg Q6H PRN ORAL For Anxiety 02/08/18 18:00 02/12/18 17:59 02/12/18 09:39 Oxycodone/ Acetaminophen (Percocet 5-325) 1 tab Q4H PRN ORAL Severe Pain (Pain Scale 7-10) 02/08/18 18:00 02/14/18 17:59 02/12/18 11:50 Prochlorperazine (Compazine) 10 mg Q6H PRN IVP Nausea & Vomiting 02/08/18 17:00 03/09/18 10:59 Quetiapine Fumarate (SEROquel) 25 mg QHS ORAL 02/08/18 21:00 03/07/18 20:59 02/11/18 20:54 Warfarin Sodium (Coumadin per pharmacy) 1 ea DAILY PRN MISC Per rx protocol 02/08/18 18:00 03/10/18 17:59 Zolpidem Tartrate (Ambien) 5 mg HSPRN PRN ORAL Insomnia 02/08/18 21:00 02/13/18 20:59 02/11/18 20:54 Clement Mcleod MD February 12, 2018 13:36
--- NOTE | 2018-02-12 14:23 | Cardiology Progress Note ---
Assessment/Plan Assessment/Plan 1. Hypertension. 2. End-stage renal disease, on hemodialysis. 3. Anemia. 4. History of GI bleed secondary to AVMs. 5. Acute deep venous thrombosis, left leg. 6. History of femoral neck fracture ctpa neg for pe has ivc filter inplace already dilaysis / uf looks adn feel better dc plans noted Subjective Cardiovascular: Denies: chest pain, lightheadedness, palpitations Respiratory: Denies: shortness of breath Gastrointestinal/Abdominal: Denies: abdominal pain Genitourinary: Denies: burning Objective Last 24 Hour Vital Signs Date Time Temp Pulse Resp B/P (MAP) Pulse Ox O2 Delivery O2 Flow Rate FiO2 02/12/18 14:02 131/79 02/12/18 14:01 131/79 02/12/18 12:00 97.9 89 17 131/79 91 Room Air 97.9 02/12/18 09:39 92 191/80 02/12/18 08:00 98.4 92 18 191/80 95 98.4 02/12/18 05:11 147/67 02/12/18 04:00 97.5 87 20 166/79 91 97.5 02/12/18 00:00 97.3 87 20 151/68 90 97.3 02/11/18 22:17 81 121/68 02/11/18 22:00 121/68 02/11/18 22:00 121/68 02/11/18 21:53 Room Air 02/11/18 21:43 97.8 62 20 168/90 Room Air 97.8 02/11/18 21:33 Nasal Cannula 2.0 28 02/11/18 21:33 95 Nasal Cannula 2.0 28 02/11/18 20:00 97.5 73 20 159/83 89 97.5 02/11/18 18:00 Room Air 02/11/18 18:00 97.6 73 24 195/98 Room Air 97.6 02/11/18 16:00 97.2 71 20 157/74 99 Room Air 97.2 General Appearance: alert Cardiovascular: normal rate Respiratory/Chest: crackles/rales - bases Abdomen: normal bowel sounds, non tender, soft Extremities: no swelling Intake and Output 02/11/18 02/12/18 19:00 07:00 Output Total 3000 ml Balance -3000 ml Hemodialysis UF 3000 ml Laboratory Tests Test 02/12/18 08:40 White Blood Count 5.2 K/UL (4.8-10.8) Red Blood Count 2.38 M/UL (4.70-6.10) L Hemoglobin 7.6 G/DL (14.2-18.0) L Hematocrit 22.7 % (42.0-52.0) L Mean Corpuscular Volume 95 FL (80-99) Mean Corpuscular Hemoglobin 32.1 PG (27.0-31.0) H Mean Corpuscular Hemoglobin Concent 33.7 G/DL (32.0-36.0) Red Cell Distribution Width 16.5 % (11.6-14.8) H Platelet Count 128 K/UL (150-450) L Mean Platelet Volume 5.6 FL (6.5-10.1) L Neutrophils (%) (Auto) % (45.0-75.0) Lymphocytes (%) (Auto) % (20.0-45.0) Monocytes (%) (Auto) % (1.0-10.0) Eosinophils (%) (Auto) % (0.0-3.0) Basophils (%) (Auto) % (0.0-2.0) Differential Total Cells Counted 100 Neutrophils % (Manual) 72 % (45-75) Lymphocytes % (Manual) 24 % (20-45) Monocytes % (Manual) 2 % (1-10) Eosinophils % (Manual) 2 % (0-3) Basophils % (Manual) 0 % (0-2) Band Neutrophils 0 % (0-8) Platelet Estimate Decreased L Platelet Morphology Normal Hypochromasia 1+ Anisocytosis 1+ Prothrombin Time 12.2 SEC (9.30-11.50) H Prothromb Time International Ratio 1.2 (0.9-1.1) H Sodium Level 143 MMOL/L (136-145) Potassium Level 3.9 MMOL/L (3.5-5.1) Chloride Level 101 MMOL/L (98-107) Carbon Dioxide Level 33 MMOL/L (21-32) H Anion Gap 9 mmol/L (5-15) Blood Urea Nitrogen 72 mg/dL (7-18) H Creatinine 6.9 MG/DL (0.55-1.30) H Estimat Glomerular Filtration Rate 8.1 mL/min (>60) Glucose Level 140 MG/DL (74-106) H Calcium Level 8.5 MG/DL (8.5-10.1) JACINTO CORONA February 12, 2018 14:23
--- NOTE | 2018-02-12 14:30 | General Progress Note ---
Assessment/Plan Problem List: (1) Abnormal laboratory test result ICD Codes: R89.9 - Unspecified abnormal finding in specimens from other organs , systems and tissues SNOMED: 960137492 (2) ESRD (end stage renal disease) on dialysis ICD Codes: N18.6 - End stage renal disease; Z99.2 - Dependence on renal dialysis SNOMED: 253206170 (3) Hypertension, uncontrolled ICD Codes: I10 - Essential (primary) hypertension SNOMED: 59553898, 46744149 (4) Symptomatic anemia ICD Codes: D64.9 - Anemia, unspecified SNOMED: 845802555 (5) Acute hyperkalemia ICD Codes: E87.5 - Hyperkalemia SNOMED: 4641171 (6) DVT (deep venous thrombosis) ICD Codes: I82.409 - Acute embolism and thrombosis of unspecified deep veins of unspecified lower extremity SNOMED: 814227049 (7) SOB (shortness of breath) ICD Codes: R06.02 - Shortness of breath SNOMED: 606334339 Status: unchanged Assessment/Plan ot pt diet o2 pulm tx gi/heme f/u anticoag pulm f/u cbc bmp am dc if clear Subjective Constitutional: Reports: weakness Allergies: Coded Allergies: No Known Allergies (Unverified , 02/02/18) All Systems: reviewed and negative except above Subjective calm sleepy in bed Objective Last 24 Hour Vital Signs Date Time Temp Pulse Resp B/P (MAP) Pulse Ox O2 Delivery O2 Flow Rate FiO2 02/12/18 14:02 131/79 02/12/18 14:01 131/79 02/12/18 12:00 97.9 89 17 131/79 91 Room Air 97.9 02/12/18 09:39 92 191/80 02/12/18 08:00 98.4 92 18 191/80 95 98.4 02/12/18 05:11 147/67 02/12/18 04:00 97.5 87 20 166/79 91 97.5 02/12/18 00:00 97.3 87 20 151/68 90 97.3 02/11/18 22:17 81 121/68 02/11/18 22:00 121/68 02/11/18 22:00 121/68 02/11/18 21:53 Room Air 02/11/18 21:43 97.8 62 20 168/90 Room Air 97.8 02/11/18 21:33 Nasal Cannula 2.0 28 02/11/18 21:33 95 Nasal Cannula 2.0 28 02/11/18 20:00 97.5 73 20 159/83 89 97.5 02/11/18 18:00 Room Air 02/11/18 18:00 97.6 73 24 195/98 Room Air 97.6 02/11/18 16:00 97.2 71 20 157/74 99 Room Air 97.2 Intake and Output 02/11/18 02/12/18 19:00 07:00 Output Total 3000 ml Balance -3000 ml Hemodialysis UF 3000 ml Laboratory Tests 02/12/18 08:40: White Blood Count 5.2, Red Blood Count 2.38L, Hemoglobin 7.6L, Hematocrit 22.7L , Mean Corpuscular Volume 95, Mean Corpuscular Hemoglobin 32.1H, Mean Corpuscular Hemoglobin Concent 33.7, Red Cell Distribution Width 16.5H, Platelet Count 128L, Mean Platelet Volume 5.6L, Neutrophils (%) (Auto) , Lymphocytes (%) (Auto) , Monocytes (%) (Auto) , Eosinophils (%) (Auto) , Basophils (%) (Auto) , Differential Total Cells Counted 100, Neutrophils % ( Manual) 72, Lymphocytes % (Manual) 24, Monocytes % (Manual) 2, Eosinophils % ( Manual) 2, Basophils % (Manual) 0, Band Neutrophils 0, Platelet Estimate DecreasedL, Platelet Morphology Normal, Hypochromasia 1+, Anisocytosis 1+, Prothrombin Time 12.2H, Prothromb Time International Ratio 1.2H, Sodium Level 143, Potassium Level 3.9, Chloride Level 101, Carbon Dioxide Level 33H, Anion Gap 9, Blood Urea Nitrogen 72H, Creatinine 6.9H, Estimat Glomerular Filtration Rate 8.1, Glucose Level 140H, Calcium Level 8.5 Height (Feet): 5 Height (Inches): 7.00 Weight (Pounds): 134 General Appearance: lethargic EENT: normal ENT inspection Neck: normal alignment Cardiovascular: normal peripheral pulses, normal rate, regular rhythm Respiratory/Chest: chest wall non-tender, lungs clear, normal breath sounds Abdomen: normal bowel sounds, non tender, soft Extremities: normal inspection Edema: no edema noted Arm (L), no edema noted Arm (R), no edema noted Leg (L), no edema noted Leg (R), no edema noted Pedal (L), no edema noted Pedal (R), no edema noted Generalized Neurologic: motor weakness Skin: normal pigmentation, warm/dry PEDRO HUTSON February 12, 2018 14:30
--- NOTE | 2018-02-12 14:47 | Nephrology Progress Note ---
Assessment/Plan Problem List: (1) ESRD (end stage renal disease) on dialysis (2) Acute hyperkalemia (3) Hypertension, uncontrolled (4) Left leg DVT (5) Anemia in chronic kidney disease (CKD) Assessment ESRD, on admission missed dialysis . has high K on admission has fistula right arm Sever Anemia h/o Amyloidosis COPD Plan HD done next 02/13 Transfusion again Kayexelate as needed BP control, meds adjusted has IVC filter Neg for pulm emboli- DC heparin Subjective ROS Limited/Unobtainable: No Objective Objective Last 24 Hour Vital Signs Date Time Temp Pulse Resp B/P (MAP) Pulse Ox O2 Delivery O2 Flow Rate FiO2 02/12/18 14:02 131/79 02/12/18 14:01 131/79 02/12/18 12:00 97.9 89 17 131/79 91 Room Air 97.9 02/12/18 09:39 92 191/80 02/12/18 08:00 98.4 92 18 191/80 95 98.4 02/12/18 05:11 147/67 02/12/18 04:00 97.5 87 20 166/79 91 97.5 02/12/18 00:00 97.3 87 20 151/68 90 97.3 02/11/18 22:17 81 121/68 02/11/18 22:00 121/68 02/11/18 22:00 121/68 02/11/18 21:53 Room Air 02/11/18 21:43 97.8 62 20 168/90 Room Air 97.8 02/11/18 21:33 Nasal Cannula 2.0 28 02/11/18 21:33 95 Nasal Cannula 2.0 28 02/11/18 20:00 97.5 73 20 159/83 89 97.5 02/11/18 18:00 Room Air 02/11/18 18:00 97.6 73 24 195/98 Room Air 97.6 02/11/18 16:00 97.2 71 20 157/74 99 Room Air 97.2 Intake and Output 02/11/18 02/12/18 19:00 07:00 Output Total 3000 ml Balance -3000 ml Hemodialysis UF 3000 ml Laboratory Tests 02/12/18 08:40: White Blood Count 5.2, Red Blood Count 2.38L, Hemoglobin 7.6L, Hematocrit 22.7L , Mean Corpuscular Volume 95, Mean Corpuscular Hemoglobin 32.1H, Mean Corpuscular Hemoglobin Concent 33.7, Red Cell Distribution Width 16.5H, Platelet Count 128L, Mean Platelet Volume 5.6L, Neutrophils (%) (Auto) , Lymphocytes (%) (Auto) , Monocytes (%) (Auto) , Eosinophils (%) (Auto) , Basophils (%) (Auto) , Differential Total Cells Counted 100, Neutrophils % ( Manual) 72, Lymphocytes % (Manual) 24, Monocytes % (Manual) 2, Eosinophils % ( Manual) 2, Basophils % (Manual) 0, Band Neutrophils 0, Platelet Estimate DecreasedL, Platelet Morphology Normal, Hypochromasia 1+, Anisocytosis 1+, Prothrombin Time 12.2H, Prothromb Time International Ratio 1.2H, Sodium Level 143, Potassium Level 3.9, Chloride Level 101, Carbon Dioxide Level 33H, Anion Gap 9, Blood Urea Nitrogen 72H, Creatinine 6.9H, Estimat Glomerular Filtration Rate 8.1, Glucose Level 140H, Calcium Level 8.5 Height (Feet): 5 Height (Inches): 7.00 Weight (Pounds): 134 General Appearance: no apparent distress Objective no change DALTON ROSENTHAL February 12, 2018 14:47
--- NOTE | 2018-02-12 15:31 | GI Progress Note ---
Assessment/Plan Problems: (1) Abnormal LFTs ICD Codes: R94.5 - Abnormal results of liver function studies SNOMED: 828072771 (2) Symptomatic anemia ICD Codes: D64.9 - Anemia, unspecified SNOMED: 421784103 (3) ESRD (end stage renal disease) on dialysis ICD Codes: N18.6 - End stage renal disease; Z99.2 - Dependence on renal dialysis SNOMED: 773597656 Status: stable Status Narrative Discussed with Dr. Matos. Assessment/Plan hx of EGD/colonoscopy 3 months ago per patient, cannot recall location. iron panel WNL OB stool negative monitor H&H, prn transfusions ppi thiamine fu labs outpatient GI procedures Subjective Subjective denies abdominal pain had EGD/colonoscopy x3 months Objective Last 24 Hour Vital Signs Date Time Temp Pulse Resp B/P (MAP) Pulse Ox O2 Delivery O2 Flow Rate FiO2 02/12/18 14:02 131/79 02/12/18 14:01 131/79 02/12/18 12:00 97.9 89 17 131/79 91 Room Air 97.9 02/12/18 09:39 92 191/80 02/12/18 08:00 98.4 92 18 191/80 95 98.4 02/12/18 05:11 147/67 02/12/18 04:00 97.5 87 20 166/79 91 97.5 02/12/18 00:00 97.3 87 20 151/68 90 97.3 02/11/18 22:17 81 121/68 02/11/18 22:00 121/68 02/11/18 22:00 121/68 02/11/18 21:53 Room Air 02/11/18 21:43 97.8 62 20 168/90 Room Air 97.8 02/11/18 21:33 Nasal Cannula 2.0 28 02/11/18 21:33 95 Nasal Cannula 2.0 28 02/11/18 20:00 97.5 73 20 159/83 89 97.5 02/11/18 18:00 Room Air 02/11/18 18:00 97.6 73 24 195/98 Room Air 97.6 02/11/18 16:00 97.2 71 20 157/74 99 Room Air 97.2 Intake and Output 02/11/18 02/12/18 19:00 07:00 Output Total 3000 ml Balance -3000 ml Hemodialysis UF 3000 ml Laboratory Tests Test 02/12/18 08:40 White Blood Count 5.2 K/UL (4.8-10.8) Red Blood Count 2.38 M/UL (4.70-6.10) L Hemoglobin 7.6 G/DL (14.2-18.0) L Hematocrit 22.7 % (42.0-52.0) L Mean Corpuscular Volume 95 FL (80-99) Mean Corpuscular Hemoglobin 32.1 PG (27.0-31.0) H Mean Corpuscular Hemoglobin Concent 33.7 G/DL (32.0-36.0) Red Cell Distribution Width 16.5 % (11.6-14.8) H Platelet Count 128 K/UL (150-450) L Mean Platelet Volume 5.6 FL (6.5-10.1) L Neutrophils (%) (Auto) % (45.0-75.0) Lymphocytes (%) (Auto) % (20.0-45.0) Monocytes (%) (Auto) % (1.0-10.0) Eosinophils (%) (Auto) % (0.0-3.0) Basophils (%) (Auto) % (0.0-2.0) Differential Total Cells Counted 100 Neutrophils % (Manual) 72 % (45-75) Lymphocytes % (Manual) 24 % (20-45) Monocytes % (Manual) 2 % (1-10) Eosinophils % (Manual) 2 % (0-3) Basophils % (Manual) 0 % (0-2) Band Neutrophils 0 % (0-8) Platelet Estimate Decreased L Platelet Morphology Normal Hypochromasia 1+ Anisocytosis 1+ Prothrombin Time 12.2 SEC (9.30-11.50) H Prothromb Time International Ratio 1.2 (0.9-1.1) H Sodium Level 143 MMOL/L (136-145) Potassium Level 3.9 MMOL/L (3.5-5.1) Chloride Level 101 MMOL/L (98-107) Carbon Dioxide Level 33 MMOL/L (21-32) H Anion Gap 9 mmol/L (5-15) Blood Urea Nitrogen 72 mg/dL (7-18) H Creatinine 6.9 MG/DL (0.55-1.30) H Estimat Glomerular Filtration Rate 8.1 mL/min (>60) Glucose Level 140 MG/DL (74-106) H Calcium Level 8.5 MG/DL (8.5-10.1) Height (Feet): 5 Height (Inches): 7.00 Weight (Pounds): 134 General Appearance: WD/WN, no apparent distress, alert Cardiovascular: normal rate Respiratory/Chest: normal breath sounds, no respiratory distress Abdominal Exam: normal bowel sounds, non tender, soft Extremities: normal range of motion, non-tender Freya Aldana N.P. February 12, 2018 15:31
[2018-02-12 16:00] VITALS: BP 159/83
[2018-02-12] MEDS ORDERED: Warfarin Sodium 7.5mg ORAL SCH (17:00)
[2018-02-12] MEDS: Zolpidem 5mg tab ORAL PRN (19:58)
[2018-02-12 20:00] VITALS: BP 153/80
[2018-02-12] MEDS: Iron Sucrose 100 MG in NS 55 ML IV SCH (21:00)
[2018-02-13] VITALS (7 sets, daily range): BP systolic 143–171; BP diastolic 67–89
[2018-02-13] MEDS: HydrALAZINE 25mg tab ORAL SCH ×3 (05:38→21:21)
--- NOTE | 2018-02-13 08:41 | General Progress Note ---
Assessment/Plan Assessment/Plan (1) Right hip pain (2) Right hip Fracture (3) S/p ORIF of right hip Pt will continued on Percocet HOLD OPIOIDS FOR OVERSEDATION OR SBP<90 OR DBP<60 OR O2SAT<92% OR RR<12 D/w Dr. Childers he concurred. Subjective Date patient seen: February 13, 2018 Time patient seen: 07:30 - am Allergies: Coded Allergies: No Known Allergies (Unverified , 02/02/18) Subjective Constitutional: Reports: no symptoms Eye: Reports: no symptoms ENT: Reports: no symptoms Respiratory: Reports: no symptoms Cardiovascular: Reports: no symptoms Gastrointestinal: Reports: no symptoms Genitourinary: Reports: no symptoms Musculoskeletal: Reports: no symptoms Skin: Reports: no symptoms Psychiatric: Reports: no symptoms Neurological: Reports: no symptoms Endocrine: Reports: no symptoms Hematologic/Lymphatic: Reports: no symptoms Subjective He has been in bed no signs of pain or distress. Objective Last 24 Hour Vital Signs Date Time Temp Pulse Resp B/P (MAP) Pulse Ox O2 Delivery O2 Flow Rate FiO2 02/13/18 08:00 97.5 92 17 171/89 92 Room Air 97.5 02/13/18 05:38 145/81 02/13/18 05:37 145/81 02/13/18 04:35 Room Air 02/13/18 04:00 97.3 88 20 145/81 93 97.3 02/13/18 00:43 Nasal Cannula 3.0 02/13/18 00:00 97.5 90 18 149/73 92 97.5 02/12/18 22:02 153/80 02/12/18 22:02 153/80 02/12/18 20:00 97.8 90 18 153/80 91 97.8 02/12/18 19:30 92 Nasal Cannula 2.0 28 02/12/18 19:30 Nasal Cannula 2.0 28 02/12/18 16:00 97.7 16 159/83 93 Nasal Cannula 2.0 97.7 02/12/18 14:02 131/79 02/12/18 14:01 131/79 02/12/18 12:00 97.9 89 17 131/79 91 Room Air 97.9 02/12/18 09:39 92 191/80 Intake and Output 02/12/18 02/13/18 19:00 07:00 Intake Total 1950 ml 250 ml Balance 1950 ml 250 ml Intake Oral 1950 ml 250 ml # Bowel Movements 1 Height (Feet): 5 Height (Inches): 7.00 Weight (Pounds): 142 Objective General Appearance: no apparent distress, alert HEENT: PERRL, EOMI Neck: non-tender, normal alignment, supple, normal inspection Respiratory/Chest: lungs clear, normal breath sounds, no respiratory distress, no accessory muscle use Cardiovascular/Chest: normal rate, regular rhythm Abdomen: non tender, soft, no organomegaly Extremities: inflammation - right hip tenderness to palpation Skin Exam: normal pigmentation, warm/dry Neurologic: alert, oriented x 3 KANWAL CURRAN February 13, 2018 08:41
[2018-02-13] MEDS: LORazepam 1mg tab ORAL PRN (09:01)
[2018-02-13 09:16] LABS: HEMATOCRIT 22.9 % (42.0-52.0); HEMOGLOBIN 7.7 G/DL (14.2-18.0); MEAN CORPUSCULAR VOLUME 96 FL (80-99); PLATELET COUNT 129 K/UL (150-450); RED BLOOD COUNT 2.39 M/UL (4.70-6.10); RED CELL DISTRIBUTION WIDTH 16.6 % (11.6-14.8); WHITE BLOOD COUNT 5.7 K/UL (4.8-10.8)
[2018-02-13 09:30] LABS: ANION GAP 9 mmol/L (5-15); BLOOD UREA NITROGEN 88 mg/dL (7-18); CALCIUM 9.2 MG/DL (8.5-10.1); CARBON DIOXIDE 34 MMOL/L (21-32); CHLORIDE 97 MMOL/L (98-107); CREATININE 8.2 MG/DL (0.55-1.30); POTASSIUM 4.2 MMOL/L (3.5-5.1); SODIUM 140 MMOL/L (136-145)
[2018-02-13 09:36] LABS: INR 1.1 (0.9-1.1)
--- NOTE | 2018-02-13 11:51 | GI Progress Note ---
Assessment/Plan Problems: (1) Abnormal LFTs ICD Codes: R94.5 - Abnormal results of liver function studies SNOMED: 479070451 (2) Symptomatic anemia ICD Codes: D64.9 - Anemia, unspecified SNOMED: 118242868 (3) ESRD (end stage renal disease) on dialysis ICD Codes: N18.6 - End stage renal disease; Z99.2 - Dependence on renal dialysis SNOMED: 490229674 Status: stable Status Narrative Discussed with Dr. Matos. Assessment/Plan hx of EGD/colonoscopy 3 months ago per patient, cannot recall location. iron panel WNL OB stool negative monitor H&H, prn transfusions ppi thiamine fu labs outpatient GI procedures dc planning Subjective Subjective denies abdominal pain had EGD/colonoscopy x3 months Objective Last 24 Hour Vital Signs Date Time Temp Pulse Resp B/P (MAP) Pulse Ox O2 Delivery O2 Flow Rate FiO2 02/13/18 09:02 171/89 02/13/18 09:02 92 171/89 02/13/18 08:00 97.5 92 17 171/89 92 Room Air 97.5 02/13/18 05:38 145/81 02/13/18 05:37 145/81 02/13/18 04:35 Room Air 02/13/18 04:00 97.3 88 20 145/81 93 97.3 02/13/18 00:43 Nasal Cannula 3.0 02/13/18 00:00 97.5 90 18 149/73 92 97.5 02/12/18 22:02 153/80 02/12/18 22:02 153/80 02/12/18 20:00 97.8 90 18 153/80 91 97.8 02/12/18 19:30 92 Nasal Cannula 2.0 28 02/12/18 19:30 Nasal Cannula 2.0 28 02/12/18 16:00 97.7 16 159/83 93 Nasal Cannula 2.0 97.7 02/12/18 14:02 131/79 02/12/18 14:01 131/79 02/12/18 12:00 97.9 89 17 131/79 91 Room Air 97.9 Intake and Output 02/12/18 02/13/18 19:00 07:00 Intake Total 1950 ml 250 ml Balance 1950 ml 250 ml Intake Oral 1950 ml 250 ml # Bowel Movements 1 Laboratory Tests Test 02/13/18 08:19 White Blood Count 5.7 K/UL (4.8-10.8) Red Blood Count 2.39 M/UL (4.70-6.10) L Hemoglobin 7.7 G/DL (14.2-18.0) L Hematocrit 22.9 % (42.0-52.0) L Mean Corpuscular Volume 96 FL (80-99) Mean Corpuscular Hemoglobin 32.3 PG (27.0-31.0) H Mean Corpuscular Hemoglobin Concent 33.6 G/DL (32.0-36.0) Red Cell Distribution Width 16.6 % (11.6-14.8) H Platelet Count 129 K/UL (150-450) L Mean Platelet Volume 5.7 FL (6.5-10.1) L Neutrophils (%) (Auto) % (45.0-75.0) Lymphocytes (%) (Auto) % (20.0-45.0) Monocytes (%) (Auto) % (1.0-10.0) Eosinophils (%) (Auto) % (0.0-3.0) Basophils (%) (Auto) % (0.0-2.0) Neutrophils % (Manual) Pending Lymphocytes % (Manual) Pending Platelet Estimate Pending Platelet Morphology Pending Prothrombin Time 11.9 SEC (9.30-11.50) H Prothromb Time International Ratio 1.1 (0.9-1.1) Sodium Level 140 MMOL/L (136-145) Potassium Level 4.2 MMOL/L (3.5-5.1) Chloride Level 97 MMOL/L (98-107) L Carbon Dioxide Level 34 MMOL/L (21-32) H Anion Gap 9 mmol/L (5-15) Blood Urea Nitrogen 88 mg/dL (7-18) H Creatinine 8.2 MG/DL (0.55-1.30) H Estimat Glomerular Filtration Rate 6.6 mL/min (>60) Glucose Level 126 MG/DL (74-106) H Calcium Level 9.2 MG/DL (8.5-10.1) Height (Feet): 5 Height (Inches): 7.00 Weight (Pounds): 142 General Appearance: WD/WN, no apparent distress, alert Cardiovascular: normal rate Respiratory/Chest: normal breath sounds, no respiratory distress Abdominal Exam: normal bowel sounds, non tender, soft Extremities: normal range of motion, non-tender Freya Aldana N.P. February 13, 2018 11:51
--- NOTE | 2018-02-13 13:30 | General Progress Note ---
Assessment/Plan Problem List: (1) Abnormal laboratory test result ICD Codes: R89.9 - Unspecified abnormal finding in specimens from other organs , systems and tissues SNOMED: 076969939 (2) ESRD (end stage renal disease) on dialysis ICD Codes: N18.6 - End stage renal disease; Z99.2 - Dependence on renal dialysis SNOMED: 973166654 (3) Hypertension, uncontrolled ICD Codes: I10 - Essential (primary) hypertension SNOMED: 18294869, 39608802 (4) Symptomatic anemia ICD Codes: D64.9 - Anemia, unspecified SNOMED: 564663226 (5) Acute hyperkalemia ICD Codes: E87.5 - Hyperkalemia SNOMED: 3568546 (6) DVT (deep venous thrombosis) ICD Codes: I82.409 - Acute embolism and thrombosis of unspecified deep veins of unspecified lower extremity SNOMED: 202013471 (7) SOB (shortness of breath) ICD Codes: R06.02 - Shortness of breath SNOMED: 370270139 Status: unchanged Assessment/Plan ot pt diet o2 pulm tx gi/heme f/u anticoag pulm f/u cbc bmp am dc if clear Subjective Constitutional: Reports: weakness Allergies: Coded Allergies: No Known Allergies (Unverified , 02/02/18) All Systems: reviewed and negative except above Subjective o2nc calm sleepy in bed Objective Last 24 Hour Vital Signs Date Time Temp Pulse Resp B/P (MAP) Pulse Ox O2 Delivery O2 Flow Rate FiO2 02/13/18 09:02 171/89 02/13/18 09:02 92 171/89 02/13/18 08:00 97.5 92 17 171/89 92 Room Air 97.5 02/13/18 05:38 145/81 02/13/18 05:37 145/81 02/13/18 04:35 Room Air 02/13/18 04:00 97.3 88 20 145/81 93 97.3 02/13/18 00:43 Nasal Cannula 3.0 02/13/18 00:00 97.5 90 18 149/73 92 97.5 02/12/18 22:02 153/80 02/12/18 22:02 153/80 02/12/18 20:00 97.8 90 18 153/80 91 97.8 02/12/18 19:30 92 Nasal Cannula 2.0 28 02/12/18 19:30 Nasal Cannula 2.0 28 02/12/18 16:00 97.7 16 159/83 93 Nasal Cannula 2.0 97.7 02/12/18 14:02 131/79 02/12/18 14:01 131/79 Intake and Output 02/12/18 02/13/18 19:00 07:00 Intake Total 1950 ml 250 ml Balance 1950 ml 250 ml Intake Oral 1950 ml 250 ml # Bowel Movements 1 Laboratory Tests 02/13/18 08:19: White Blood Count 5.7, Red Blood Count 2.39L, Hemoglobin 7.7L, Hematocrit 22.9L , Mean Corpuscular Volume 96, Mean Corpuscular Hemoglobin 32.3H, Mean Corpuscular Hemoglobin Concent 33.6, Red Cell Distribution Width 16.6H, Platelet Count 129L, Mean Platelet Volume 5.7L, Neutrophils (%) (Auto) , Lymphocytes (%) (Auto) , Monocytes (%) (Auto) , Eosinophils (%) (Auto) , Basophils (%) (Auto) , Differential Total Cells Counted 100, Neutrophils % ( Manual) 70, Lymphocytes % (Manual) 16L, Monocytes % (Manual) 6, Eosinophils % ( Manual) 6H, Basophils % (Manual) 2, Band Neutrophils 0, Platelet Estimate DecreasedL, Platelet Morphology Normal, Prothrombin Time 11.9H, Prothromb Time International Ratio 1.1, Sodium Level 140, Potassium Level 4.2, Chloride Level 97L, Carbon Dioxide Level 34H, Anion Gap 9, Blood Urea Nitrogen 88H, Creatinine 8.2H, Estimat Glomerular Filtration Rate 6.6, Glucose Level 126H, Calcium Level 9.2 Height (Feet): 5 Height (Inches): 7.00 Weight (Pounds): 142 General Appearance: lethargic EENT: normal ENT inspection Neck: normal alignment Cardiovascular: normal peripheral pulses, normal rate, regular rhythm Respiratory/Chest: chest wall non-tender, decreased breath sounds Abdomen: normal bowel sounds, non tender, soft Extremities: normal inspection Edema: no edema noted Arm (L), no edema noted Arm (R), no edema noted Leg (L), no edema noted Leg (R), no edema noted Pedal (L), no edema noted Pedal (R), no edema noted Generalized Neurologic: motor weakness Skin: normal pigmentation, warm/dry PEDRO HUTSON February 13, 2018 13:30
[2018-02-13] MEDS: oxyCODONE HCL/Acetaminophen 5/325mg ORAL PRN ×2 (13:56→18:28)
--- NOTE | 2018-02-13 14:28 | Pulmonology Progress Note ---
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 reactivator operator respiratory treatment titrate fio2 to sat of 92% check Hemoglobin on coumadin, INR is 1.2 dc planning Subjective ROS Limited/Unobtainable: No Constitutional: Reports: no symptoms HEENT: Repors: no symptoms Respiratory: Reports: no symptoms Allergies: Coded Allergies: No Known Allergies (Unverified , 02/02/18) Objective Last 24 Hour Vital Signs Date Time Temp Pulse Resp B/P (MAP) Pulse Ox O2 Delivery O2 Flow Rate FiO2 02/13/18 14:00 152/76 02/13/18 14:00 152/76 02/13/18 13:56 98.8 02/13/18 12:00 98.8 87 152/76 92 Nasal Cannula 2.0 98.8 02/13/18 09:02 171/89 02/13/18 09:02 92 171/89 02/13/18 08:00 97.5 92 17 171/89 92 Room Air 97.5 02/13/18 05:38 145/81 02/13/18 05:37 145/81 02/13/18 04:35 Room Air 02/13/18 04:00 97.3 88 20 145/81 93 97.3 02/13/18 00:43 Nasal Cannula 3.0 02/13/18 00:00 97.5 90 18 149/73 92 97.5 02/12/18 22:02 153/80 02/12/18 22:02 153/80 02/12/18 20:00 97.8 90 18 153/80 91 97.8 02/12/18 19:30 92 Nasal Cannula 2.0 28 02/12/18 19:30 Nasal Cannula 2.0 28 02/12/18 16:00 97.7 16 159/83 93 Nasal Cannula 2.0 97.7 Intake and Output 02/12/18 02/13/18 19:00 07:00 Intake Total 1950 ml 250 ml Balance 1950 ml 250 ml Intake Oral 1950 ml 250 ml # Bowel Movements 1 Objective General Appearance: WD/WN HEENT: normocephalic, atraumatic Respiratory/Chest: chest wall non-tender, lungs clear Cardiovascular: normal peripheral pulses, normal rate, regular rhythm Abdomen: normal bowel sounds, soft, non tender, no organomegaly, non distended Extremities: no cyanosis, no clubbing, no edema Skin: no rash, no lesions Neurologic/Psychiatric: safety officer II-XII grossly normal Laboratory Tests 02/13/18 08:19: White Blood Count 5.7, Red Blood Count 2.39L, Hemoglobin 7.7L, Hematocrit 22.9L , Mean Corpuscular Volume 96, Mean Corpuscular Hemoglobin 32.3H, Mean Corpuscular Hemoglobin Concent 33.6, Red Cell Distribution Width 16.6H, Platelet Count 129L, Mean Platelet Volume 5.7L, Neutrophils (%) (Auto) , Lymphocytes (%) (Auto) , Monocytes (%) (Auto) , Eosinophils (%) (Auto) , Basophils (%) (Auto) , Differential Total Cells Counted 100, Neutrophils % ( Manual) 70, Lymphocytes % (Manual) 16L, Monocytes % (Manual) 6, Eosinophils % ( Manual) 6H, Basophils % (Manual) 2, Band Neutrophils 0, Platelet Estimate DecreasedL, Platelet Morphology Normal, Prothrombin Time 11.9H, Prothromb Time International Ratio 1.1, Sodium Level 140, Potassium Level 4.2, Chloride Level 97L, Carbon Dioxide Level 34H, Anion Gap 9, Blood Urea Nitrogen 88H, Creatinine 8.2H, Estimat Glomerular Filtration Rate 6.6, Glucose Level 126H, Calcium Level 9.2 Current Medications Medications (Trade) Dose Ordered Sig/Blessing Route PRN Reason Start Time Stop Time Status Last Admin Dose Admin Acetaminophen (Tylenol) 500 mg 3XW PRN ORAL WITH DIALYSIS 02/08/18 18:00 03/10/18 17:59 Amlodipine Besylate (Norvasc) 10 mg DAILY ORAL 02/09/18 09:00 03/05/18 11:14 02/13/18 09:02 Clonidine HCl (Catapres Tab) 0.1 mg EVERY 8 HOURS ORAL 02/08/18 22:00 03/05/18 13:59 02/13/18 05:37 Clonidine HCl (Catapres Tab) 0.1 mg Q4H PRN ORAL SBP > 160 mmHg 02/08/18 18:00 03/04/18 17:59 02/13/18 09:02 Diphenhydramine HCl (Benadryl) 50 mg Q6H PRN IVP WITH DIALYSIS or ITCHING 02/08/18 18:00 03/04/18 17:59 Epoetin Alfonzo (Procrit (for non ESRD use)) 5,000 units SUN-SUN-SUN SUBQ 02/08/18 21:00 03/06/18 20:59 02/11/18 20:55 Folic Acid (Folate) 1 mg DAILY ORAL 02/09/18 09:00 03/06/18 08:59 02/13/18 09:00 Gabapentin (Neurontin) 300 mg THREE TIMES A DAY ORAL 02/08/18 18:00 03/07/18 08:59 02/13/18 13:56 Hydralazine HCl (Apresoline) 25 mg Q8HR ORAL 02/09/18 14:00 03/05/18 12:59 02/13/18 05:38 Iron Sucrose 100 mg/Sodium Chloride 60 ml @ 240 mls/hr TuThSa@2100 IV 02/09/18 21:00 02/16/18 21:14 02/09/18 20:17 Lansoprazole (Prevacid) 30 mg DAILY ORAL 02/09/18 11:00 03/11/18 10:59 02/13/18 09:01 Lorazepam (Ativan 2mg/ml 1ml) 1 mg Q6H PRN IV For Anxiety 02/09/18 11:15 02/16/18 11:14 02/09/18 18:16 Lorazepam (Ativan) 1 mg Q6H PRN ORAL For Anxiety 02/12/18 19:30 02/19/18 19:29 02/13/18 09:01 Oxycodone/ Acetaminophen (Percocet 5-325) 1 tab Q4H PRN ORAL Severe Pain (Pain Scale 7-10) 02/08/18 18:00 02/14/18 17:59 02/13/18 13:56 Prochlorperazine (Compazine) 10 mg Q6H PRN IVP Nausea & Vomiting 02/08/18 17:00 03/09/18 10:59 Quetiapine Fumarate (SEROquel) 25 mg QHS ORAL 02/08/18 21:00 03/07/18 20:59 02/12/18 19:58 Warfarin Sodium (Coumadin per pharmacy) 1 ea DAILY PRN MISC Per rx protocol 02/08/18 18:00 03/10/18 17:59 Warfarin Sodium (Coumadin) 7.5 mg COUMADIN ONCE ORAL 02/13/18 17:00 02/13/18 17:01 Zolpidem Tartrate (Ambien) 5 mg HSPRN PRN ORAL Insomnia 02/08/18 21:00 02/13/18 20:59 02/12/18 19:58 Clement Mcleod MD February 13, 2018 14:28
--- NOTE | 2018-02-13 15:44 | Nephrology Progress Note ---
Assessment/Plan Problem List: (1) ESRD (end stage renal disease) on dialysis (2) Acute hyperkalemia (3) Hypertension, uncontrolled (4) Left leg DVT (5) Anemia in chronic kidney disease (CKD) Assessment ESRD, on admission missed dialysis . has high K on admission has fistula right arm Sever Anemia h/o Amyloidosis COPD Plan HD t 02/13 Transfusion again Kayexelate as needed BP control, meds adjusted has IVC filter Neg for pulm emboli- DC heparin Subjective ROS Limited/Unobtainable: No Constitutional: Reports: malaise, weakness Objective Objective Last 24 Hour Vital Signs Date Time Temp Pulse Resp B/P (MAP) Pulse Ox O2 Delivery O2 Flow Rate FiO2 02/13/18 14:00 152/76 02/13/18 14:00 152/76 02/13/18 13:56 98.8 02/13/18 12:00 98.8 87 152/76 92 Nasal Cannula 2.0 98.8 02/13/18 09:02 171/89 02/13/18 09:02 92 171/89 02/13/18 08:00 97.5 92 17 171/89 92 Room Air 97.5 02/13/18 05:38 145/81 02/13/18 05:37 145/81 02/13/18 04:35 Room Air 02/13/18 04:00 97.3 88 20 145/81 93 97.3 02/13/18 00:43 Nasal Cannula 3.0 02/13/18 00:00 97.5 90 18 149/73 92 97.5 02/12/18 22:02 153/80 02/12/18 22:02 153/80 02/12/18 20:00 97.8 90 18 153/80 91 97.8 02/12/18 19:30 92 Nasal Cannula 2.0 28 02/12/18 19:30 Nasal Cannula 2.0 28 02/12/18 16:00 97.7 16 159/83 93 Nasal Cannula 2.0 97.7 Intake and Output 02/12/18 02/13/18 19:00 07:00 Intake Total 1950 ml 250 ml Balance 1950 ml 250 ml Intake Oral 1950 ml 250 ml # Bowel Movements 1 Laboratory Tests 02/13/18 08:19: White Blood Count 5.7, Red Blood Count 2.39L, Hemoglobin 7.7L, Hematocrit 22.9L , Mean Corpuscular Volume 96, Mean Corpuscular Hemoglobin 32.3H, Mean Corpuscular Hemoglobin Concent 33.6, Red Cell Distribution Width 16.6H, Platelet Count 129L, Mean Platelet Volume 5.7L, Neutrophils (%) (Auto) , Lymphocytes (%) (Auto) , Monocytes (%) (Auto) , Eosinophils (%) (Auto) , Basophils (%) (Auto) , Differential Total Cells Counted 100, Neutrophils % ( Manual) 70, Lymphocytes % (Manual) 16L, Monocytes % (Manual) 6, Eosinophils % ( Manual) 6H, Basophils % (Manual) 2, Band Neutrophils 0, Platelet Estimate DecreasedL, Platelet Morphology Normal, Prothrombin Time 11.9H, Prothromb Time International Ratio 1.1, Sodium Level 140, Potassium Level 4.2, Chloride Level 97L, Carbon Dioxide Level 34H, Anion Gap 9, Blood Urea Nitrogen 88H, Creatinine 8.2H, Estimat Glomerular Filtration Rate 6.6, Glucose Level 126H, Calcium Level 9.2 Height (Feet): 5 Height (Inches): 7.00 Weight (Pounds): 142 General Appearance: no apparent distress Cardiovascular: regular rhythm Respiratory/Chest: decreased breath sounds Abdomen: soft Objective no change DALTON ROSENTHAL February 13, 2018 15:44
--- NOTE | 2018-02-13 16:09 | Cardiology Report ---
APPROVED REPORT EKG Measurement Heart [id number] Normal sinus rhythm Minimal voltage criteria for LVH, may be normal variant Borderline ECG
[2018-02-13] MEDS ORDERED: Warfarin Sodium 7.5mg ORAL ONE (17:00)
--- NOTE | 2018-02-13 19:40 | Cardiology Progress Note ---
Assessment/Plan Assessment/Plan 1. Hypertension. 2. End-stage renal disease, on hemodialysis. 3. Anemia. 4. History of GI bleed secondary to AVMs. 5. Acute deep venous thrombosis, left leg. 6. History of femoral neck fracture ctpa neg for pe has ivc filter inplace already dilaysis / uf now dc plans noted Subjective ROS Limited/Unobtainable: Yes Subjective sleeping on dialysis Objective Last 24 Hour Vital Signs Date Time Temp Pulse Resp B/P (MAP) Pulse Ox O2 Delivery O2 Flow Rate FiO2 02/13/18 19:27 97.5 02/13/18 18:28 97.5 02/13/18 16:00 97.5 143/67 94 Room Air 97.5 02/13/18 14:00 152/76 02/13/18 14:00 152/76 02/13/18 13:56 98.8 02/13/18 12:00 98.8 87 152/76 92 Nasal Cannula 2.0 98.8 02/13/18 09:02 171/89 02/13/18 09:02 92 171/89 02/13/18 08:00 97.5 92 17 171/89 92 Room Air 97.5 02/13/18 05:38 145/81 02/13/18 05:37 145/81 02/13/18 04:35 Room Air 02/13/18 04:00 97.3 88 20 145/81 93 97.3 02/13/18 00:43 Nasal Cannula 3.0 02/13/18 00:00 97.5 90 18 149/73 92 97.5 02/12/18 22:02 153/80 02/12/18 22:02 153/80 02/12/18 20:00 97.8 90 18 153/80 91 97.8 General Appearance: no apparent distress Intake and Output 02/12/18 02/13/18 19:00 07:00 Intake Total 1950 ml 250 ml Balance 1950 ml 250 ml Intake Oral 1950 ml 250 ml # Bowel Movements 1 Laboratory Tests Test 02/13/18 08:19 White Blood Count 5.7 K/UL (4.8-10.8) Red Blood Count 2.39 M/UL (4.70-6.10) L Hemoglobin 7.7 G/DL (14.2-18.0) L Hematocrit 22.9 % (42.0-52.0) L Mean Corpuscular Volume 96 FL (80-99) Mean Corpuscular Hemoglobin 32.3 PG (27.0-31.0) H Mean Corpuscular Hemoglobin Concent 33.6 G/DL (32.0-36.0) Red Cell Distribution Width 16.6 % (11.6-14.8) H Platelet Count 129 K/UL (150-450) L Mean Platelet Volume 5.7 FL (6.5-10.1) L Neutrophils (%) (Auto) % (45.0-75.0) Lymphocytes (%) (Auto) % (20.0-45.0) Monocytes (%) (Auto) % (1.0-10.0) Eosinophils (%) (Auto) % (0.0-3.0) Basophils (%) (Auto) % (0.0-2.0) Differential Total Cells Counted 100 Neutrophils % (Manual) 70 % (45-75) Lymphocytes % (Manual) 16 % (20-45) L Monocytes % (Manual) 6 % (1-10) Eosinophils % (Manual) 6 % (0-3) H Basophils % (Manual) 2 % (0-2) Band Neutrophils 0 % (0-8) Platelet Estimate Decreased L Platelet Morphology Normal Prothrombin Time 11.9 SEC (9.30-11.50) H Prothromb Time International Ratio 1.1 (0.9-1.1) Sodium Level 140 MMOL/L (136-145) Potassium Level 4.2 MMOL/L (3.5-5.1) Chloride Level 97 MMOL/L (98-107) L Carbon Dioxide Level 34 MMOL/L (21-32) H Anion Gap 9 mmol/L (5-15) Blood Urea Nitrogen 88 mg/dL (7-18) H Creatinine 8.2 MG/DL (0.55-1.30) H Estimat Glomerular Filtration Rate 6.6 mL/min (>60) Glucose Level 126 MG/DL (74-106) H Calcium Level 9.2 MG/DL (8.5-10.1) JACINTO CORONA February 13, 2018 19:40
[2018-02-13] MEDS: Epogen (for non ESRD use) SUBQ SCH (20:38)
[2018-02-13] MEDS ORDERED: Zolpidem 5mg tab ORAL PRN (22:15)
--- NOTE | 2018-02-13 22:43 | General Progress Note ---
Assessment/Plan Assessment/Plan IMPRESSION: 1. Acute deep venous thrombosis, left lower extremities. 2. Status post inferior vena cava filter placement. 3. Anticoagulation with Coumadin. 4. Anticoagulation with IV heparin. 5. History of gastrointestinal bleed. 6. Anemia of kidney disease. 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 Anemia of chronic disease. 8. Decreased hemoglobin and hematocrit, rule out gastrointestinal bleed. 9. End-stage renal disease, hemodialysis dependent. 10. History of femoral neck fracture. 11. Hypertension. 12. Acute respiratory failure. 13. Pulmonary edema. 14. Malnutrition. 15. Failure to thrive. 16. Chronic obstructive pulmonary disease. 17. History of polysubstance abuse. 18. Benign prostatic hypertrophy. 19. Fluid overload. 20. History of hepatitis C. 21. History of posttraumatic stress disorder. 22. History of smoking. RECOMMENDATIONS: 1. Watch count. 2. Watch coagulopathy. 3. PRBC transfusion p.r.n. basis. 4. Heparin IV. 5. Coumadin p.o. 6. Procrit subcutaneously. 7. Iron IV. 8. Cardiology followup. 9. Pulmonary followup. 10. Skin care. 11. Nutrition. 12. Discussed with the staff. Subjective Date patient seen: February 12, 2018 Constitutional: Denies: no symptoms, chills, diaphoresis, fever, malaise, weakness, other HEENT: Denies: no symptoms, eye pain, blurred vision, tearing, double vision, ear pain, ear discharge, nose pain, nose congestion, throat pain, throat swelling, mouth pain, mouth swelling, other Cardiovascular: Denies: no symptoms, chest pain, edema, irregular heart rate, lightheadedness, palpitations, syncope, other Respiratory: Denies: no symptoms, cough, orthopnea, shortness of breath, SOB with excertion, SOB at rest, sputum, stridor, wheezing, other Gastrointestinal/Abdominal: Denies: no symptoms, abdomen distended, abdominal pain, black stools, tarry stools, blood in stool, constipated, diarrhea, difficulty swallowing, nausea, poor appetite, poor fluid intake, rectal bleeding , vomiting, other Genitourinary: Denies: no symptoms, burning, discharge, frequency, flank pain, hematuria, incontinence, pain, urgency, other Neurologic/Psychiatric: Denies: no symptoms, anxiety, depressed, emotional problems, headache, numbness, paresthesia, pre-existing deficit, seizure, tingling, tremors, weakness, other Endocrine: Denies: no symptoms, excessive sweating, flushing, intolerance to cold, intolerance to heat, increased hunger, increased thirst, increased urine, unexplained weight gain, unexplained weight loss, other Hematologic/Lymphatic: Reports: anemia Allergies: Coded Allergies: No Known Allergies (Unverified , 02/02/18) Subjective H/H downtrended. On anticoag. S/P IVF filter placement. Objective Last 24 Hour Vital Signs Date Time Temp Pulse Resp B/P (MAP) Pulse Ox O2 Delivery O2 Flow Rate FiO2 02/13/18 21:22 152/74 02/13/18 21:21 152/74 02/13/18 19:30 97.0 81 20 169/81 Nasal Cannula 2.5 97.0 02/13/18 19:30 Nasal Cannula 2.5 02/13/18 19:27 97.5 02/13/18 18:28 97.5 02/13/18 16:00 97.5 143/67 94 Room Air 97.5 02/13/18 14:00 152/76 02/13/18 14:00 152/76 02/13/18 13:56 98.8 02/13/18 12:00 98.8 87 152/76 92 Nasal Cannula 2.0 98.8 02/13/18 09:02 171/89 02/13/18 09:02 92 171/89 02/13/18 08:00 97.5 92 17 171/89 92 Room Air 97.5 02/13/18 05:38 145/81 02/13/18 05:37 145/81 02/13/18 04:35 Room Air 02/13/18 04:00 97.3 88 20 145/81 93 97.3 02/13/18 00:43 Nasal Cannula 3.0 02/13/18 00:00 97.5 90 18 149/73 92 97.5 Intake and Output 02/12/18 02/13/18 19:00 07:00 Intake Total 1950 ml 250 ml Balance 1950 ml 250 ml Intake Oral 1950 ml 250 ml # Bowel Movements 1 Laboratory Tests 02/13/18 08:19: White Blood Count 5.7, Red Blood Count 2.39L, Hemoglobin 7.7L, Hematocrit 22.9L , Mean Corpuscular Volume 96, Mean Corpuscular Hemoglobin 32.3H, Mean Corpuscular Hemoglobin Concent 33.6, Red Cell Distribution Width 16.6H, Platelet Count 129L, Mean Platelet Volume 5.7L, Neutrophils (%) (Auto) , Lymphocytes (%) (Auto) , Monocytes (%) (Auto) , Eosinophils (%) (Auto) , Basophils (%) (Auto) , Differential Total Cells Counted 100, Neutrophils % ( Manual) 70, Lymphocytes % (Manual) 16L, Monocytes % (Manual) 6, Eosinophils % ( Manual) 6H, Basophils % (Manual) 2, Band Neutrophils 0, Platelet Estimate DecreasedL, Platelet Morphology Normal, Prothrombin Time 11.9H, Prothromb Time International Ratio 1.1, Sodium Level 140, Potassium Level 4.2, Chloride Level 97L, Carbon Dioxide Level 34H, Anion Gap 9, Blood Urea Nitrogen 88H, Creatinine 8.2H, Estimat Glomerular Filtration Rate 6.6, Glucose Level 126H, Calcium Level 9.2 Height (Feet): 5 Height (Inches): 7.00 Weight (Pounds): 142 General Appearance: no apparent distress EENT: normal ENT inspection Neck: normal alignment Cardiovascular: normal peripheral pulses, normal rate Respiratory/Chest: chest wall non-tender, lungs clear Abdomen: normal bowel sounds, non tender Tristen Lewis MD February 13, 2018 22:43
[2018-02-13] MEDS ORDERED: Haloperidol 5mg/ml Inj IM PRN (23:15)
[2018-02-14 04:03] VITALS: BP 148/79
[2018-02-14] MEDS: HydrALAZINE 25mg tab ORAL SCH ×3 (05:51→21:42)
[2018-02-14] MEDS: oxyCODONE HCL/Acetaminophen 5/325mg ORAL PRN ×2 (06:27→15:31)
[2018-02-14] MEDS ORDERED: LORazepam 1mg tab ORAL PRN (07:30)
[2018-02-14] MEDS ORDERED: LORazepam Inj 2mg/ml 1ml IV PRN (07:30)
[2018-02-14 08:00] VITALS: BP 144/66
--- NOTE | 2018-02-14 08:37 | General Progress Note ---
Assessment/Plan Assessment/Plan IMPRESSION: 1. Acute deep venous thrombosis, left lower extremities. 2. Status post inferior vena cava filter placement. 3. Anticoagulation with Coumadin. 4. Anticoagulation with IV heparin. 5. History of gastrointestinal bleed. 6. Anemia of kidney disease. 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 Anemia of chronic disease. 8. Decreased hemoglobin and hematocrit, rule out gastrointestinal bleed. 9. End-stage renal disease, hemodialysis dependent. 10. History of femoral neck fracture. 11. Hypertension. 12. Acute respiratory failure. 13. Pulmonary edema. 14. Malnutrition. 15. Failure to thrive. 16. Chronic obstructive pulmonary disease. 17. History of polysubstance abuse. 18. Benign prostatic hypertrophy. 19. Fluid overload. 20. History of hepatitis C. 21. History of posttraumatic stress disorder. 22. History of smoking. RECOMMENDATIONS: 1. Watch count. 2. Watch coagulopathy. 3. PRBC transfusion p.r.n. basis. 4. Heparin IV. 5. Coumadin p.o. 6. Procrit subcutaneously. 7. Iron IV. 8. Cardiology followup. 9. Pulmonary followup. 10. Skin care. 11. Nutrition. 12. Discussed with the staff. Subjective Date patient seen: February 13, 2018 ROS Limited/Unobtainable: No Allergies: Coded Allergies: No Known Allergies (Unverified , 02/02/18) Subjective Cont. H/H downtrended. On anticoag. S/P IVF filter placement. Objective Last 24 Hour Vital Signs Date Time Temp Pulse Resp B/P (MAP) Pulse Ox O2 Delivery O2 Flow Rate FiO2 02/14/18 05:51 178/87 02/14/18 05:51 178/87 02/14/18 04:03 97.8 89 18 148/79 96 97.8 02/13/18 23:28 Room Air 02/13/18 23:26 97.6 73 20 158/75 Room Air 97.6 02/13/18 21:22 152/74 02/13/18 21:21 152/74 02/13/18 19:30 97.0 81 20 169/81 Nasal Cannula 2.5 97.0 02/13/18 19:30 Nasal Cannula 2.5 02/13/18 19:27 97.5 02/13/18 18:28 97.5 02/13/18 16:00 97.5 143/67 94 Room Air 97.5 02/13/18 14:00 152/76 02/13/18 14:00 152/76 02/13/18 13:56 98.8 02/13/18 12:00 98.8 87 152/76 92 Nasal Cannula 2.0 98.8 02/13/18 09:02 171/89 02/13/18 09:02 92 171/89 Intake and Output 02/13/18 02/14/18 19:00 07:00 Intake Total 1745 ml Output Total 2866 ml Balance 1745 ml -2866 ml Intake Oral 1745 ml Hemodialysis UF 2866 ml # Bowel Movements 1 Height (Feet): 5 Height (Inches): 7.00 Weight (Pounds): 141 General Appearance: lethargic Neck: tenderness Tristen Lewis MD February 14, 2018 08:37
--- NOTE | 2018-02-14 09:25 | General Progress Note ---
Assessment/Plan Assessment/Plan (1) Right hip pain (2) Right hip Fracture (3) S/p ORIF of right hip Pt will continued on Percocet HOLD OPIOIDS FOR OVERSEDATION OR SBP<90 OR DBP<60 OR O2SAT<92% OR RR<12 D/w Dr. Childers he concurred. Subjective Date patient seen: February 14, 2018 Time patient seen: 08:15 - am Allergies: Coded Allergies: No Known Allergies (Unverified , 02/02/18) Subjective Constitutional: Reports: no symptoms Eye: Reports: no symptoms ENT: Reports: no symptoms Respiratory: Reports: no symptoms Cardiovascular: Reports: no symptoms Gastrointestinal: Reports: no symptoms Genitourinary: Reports: no symptoms Musculoskeletal: Reports: no symptoms Skin: Reports: no symptoms Psychiatric: Reports: no symptoms Neurological: Reports: no symptoms Endocrine: Reports: no symptoms Hematologic/Lymphatic: Reports: no symptoms Subjective Patient is in bed and reports that his pain has been tolerated reduced from a 7 to a 3/10 on the Percocet. Having 3 doses of Percocet in the last 24hrs. Objective Last 24 Hour Vital Signs Date Time Temp Pulse Resp B/P (MAP) Pulse Ox O2 Delivery O2 Flow Rate FiO2 02/14/18 08:53 77 144/66 02/14/18 08:00 98.0 77 18 144/66 95 Nasal Cannula 2.0 98.0 02/14/18 05:51 178/87 02/14/18 05:51 178/87 02/14/18 04:03 97.8 89 18 148/79 96 97.8 02/13/18 23:28 Room Air 02/13/18 23:26 97.6 73 20 158/75 Room Air 97.6 02/13/18 21:22 152/74 02/13/18 21:21 152/74 02/13/18 19:30 97.0 81 20 169/81 Nasal Cannula 2.5 97.0 02/13/18 19:30 Nasal Cannula 2.5 02/13/18 19:27 97.5 02/13/18 18:28 97.5 02/13/18 16:00 97.5 143/67 94 Room Air 97.5 02/13/18 14:00 152/76 02/13/18 14:00 152/76 02/13/18 13:56 98.8 02/13/18 12:00 98.8 87 152/76 92 Nasal Cannula 2.0 98.8 Intake and Output 02/13/18 02/14/18 19:00 07:00 Intake Total 1745 ml Output Total 2866 ml Balance 1745 ml -2866 ml Intake Oral 1745 ml Hemodialysis UF 2866 ml # Bowel Movements 1 Height (Feet): 5 Height (Inches): 7.00 Weight (Pounds): 141 Objective General Appearance: no apparent distress, alert HEENT: PERRL, EOMI Neck: non-tender, normal alignment, supple, normal inspection Respiratory/Chest: lungs clear, normal breath sounds, no respiratory distress, no accessory muscle use Cardiovascular/Chest: normal rate, regular rhythm Abdomen: non tender, soft, no organomegaly Extremities: inflammation - right hip tenderness to palpation Skin Exam: normal pigmentation, warm/dry Neurologic: alert, oriented x 3 KANWAL CURRAN February 14, 2018 09:25
[2018-02-14 11:08] LABS: HEMATOCRIT 21.2 % (42.0-52.0); HEMOGLOBIN 7.2 G/DL (14.2-18.0); MEAN CORPUSCULAR VOLUME 96 FL (80-99); PLATELET COUNT 131 K/UL (150-450); RED BLOOD COUNT 2.21 M/UL (4.70-6.10); RED CELL DISTRIBUTION WIDTH 16.6 % (11.6-14.8); WHITE BLOOD COUNT 5.2 K/UL (4.8-10.8)
[2018-02-14 11:21] LABS: INR 1.3 (0.9-1.1)
--- NOTE | 2018-02-14 12:41 | GI Progress Note ---
Assessment/Plan Problems: (1) Abnormal LFTs ICD Codes: R94.5 - Abnormal results of liver function studies SNOMED: 495043037 (2) Symptomatic anemia ICD Codes: D64.9 - Anemia, unspecified SNOMED: 229198771 (3) ESRD (end stage renal disease) on dialysis ICD Codes: N18.6 - End stage renal disease; Z99.2 - Dependence on renal dialysis SNOMED: 410411849 Status: stable Status Narrative Discussed with Dr. Matos. Assessment/Plan hx of EGD/colonoscopy 3 months ago per patient, cannot recall location. iron panel WNL OB stool negative monitor H&H, prn transfusions ppi thiamine fu labs outpatient GI procedures dc planning Subjective Subjective denies abdominal pain had EGD/colonoscopy x3 months Objective Last 24 Hour Vital Signs Date Time Temp Pulse Resp B/P (MAP) Pulse Ox O2 Delivery O2 Flow Rate FiO2 02/14/18 08:53 77 144/66 02/14/18 08:00 98.0 77 18 144/66 95 Nasal Cannula 2.0 98.0 02/14/18 05:51 178/87 02/14/18 05:51 178/87 02/14/18 04:03 97.8 89 18 148/79 96 97.8 02/13/18 23:28 Room Air 02/13/18 23:26 97.6 73 20 158/75 Room Air 97.6 02/13/18 21:22 152/74 02/13/18 21:21 152/74 02/13/18 19:30 97.0 81 20 169/81 Nasal Cannula 2.5 97.0 02/13/18 19:30 Nasal Cannula 2.5 02/13/18 19:27 97.5 02/13/18 18:28 97.5 02/13/18 16:00 97.5 143/67 94 Room Air 97.5 02/13/18 14:00 152/76 02/13/18 14:00 152/76 02/13/18 13:56 98.8 Intake and Output 02/13/18 02/14/18 19:00 07:00 Intake Total 1745 ml Output Total 2866 ml Balance 1745 ml -2866 ml Intake Oral 1745 ml Hemodialysis UF 2866 ml # Bowel Movements 1 Laboratory Tests Test 02/14/18 10:45 White Blood Count 5.2 K/UL (4.8-10.8) Red Blood Count 2.21 M/UL (4.70-6.10) L Hemoglobin 7.2 G/DL (14.2-18.0) L Hematocrit 21.2 % (42.0-52.0) L Mean Corpuscular Volume 96 FL (80-99) Mean Corpuscular Hemoglobin 32.4 PG (27.0-31.0) H Mean Corpuscular Hemoglobin Concent 33.8 G/DL (32.0-36.0) Red Cell Distribution Width 16.6 % (11.6-14.8) H Platelet Count 131 K/UL (150-450) L Mean Platelet Volume 5.7 FL (6.5-10.1) L Neutrophils (%) (Auto) % (45.0-75.0) Lymphocytes (%) (Auto) % (20.0-45.0) Monocytes (%) (Auto) % (1.0-10.0) Eosinophils (%) (Auto) % (0.0-3.0) Basophils (%) (Auto) % (0.0-2.0) Differential Total Cells Counted 100 Neutrophils % (Manual) 66 % (45-75) Lymphocytes % (Manual) 24 % (20-45) Monocytes % (Manual) 5 % (1-10) Eosinophils % (Manual) 4 % (0-3) H Basophils % (Manual) 1 % (0-2) Band Neutrophils 0 % (0-8) Platelet Estimate Decreased L Platelet Morphology Normal Red Blood Cell Morphology Anisocytosis 1+ Prothrombin Time 14.0 SEC (9.30-11.50) H Prothromb Time International Ratio 1.3 (0.9-1.1) H Sodium Level Pending Potassium Level Pending Chloride Level Pending Carbon Dioxide Level Pending Blood Urea Nitrogen Pending Creatinine Pending Estimat Glomerular Filtration Rate Pending Glucose Level Pending Calcium Level Pending Phosphorus Level Pending Magnesium Level Pending Height (Feet): 5 Height (Inches): 7.00 Weight (Pounds): 141 General Appearance: WD/WN, no apparent distress, alert Cardiovascular: normal rate Respiratory/Chest: normal breath sounds, no respiratory distress Abdominal Exam: normal bowel sounds, non tender, soft Extremities: normal range of motion, non-tender Aldana,Freya Jose N.P. February 14, 2018 12:41
[2018-02-14 12:46] LABS: ANION GAP 6 mmol/L (5-15); BLOOD UREA NITROGEN 56 mg/dL (7-18); CALCIUM 8.6 MG/DL (8.5-10.1); CARBON DIOXIDE 37 MMOL/L (21-32); CHLORIDE 96 MMOL/L (98-107); CREATININE 6.3 MG/DL (0.55-1.30); PHOSPHORUS 5.3 MG/DL (2.5-4.9); POTASSIUM 3.8 MMOL/L (3.5-5.1); SODIUM 139 MMOL/L (136-145)
--- NOTE | 2018-02-14 14:07 | General Progress Note ---
Assessment/Plan Problem List: (1) Abnormal laboratory test result ICD Codes: R89.9 - Unspecified abnormal finding in specimens from other organs , systems and tissues SNOMED: 380178055 (2) ESRD (end stage renal disease) on dialysis ICD Codes: N18.6 - End stage renal disease; Z99.2 - Dependence on renal dialysis SNOMED: 335124357 (3) Hypertension, uncontrolled ICD Codes: I10 - Essential (primary) hypertension SNOMED: 48158357, 22606823 (4) Symptomatic anemia ICD Codes: D64.9 - Anemia, unspecified SNOMED: 543187824 (5) Acute hyperkalemia ICD Codes: E87.5 - Hyperkalemia SNOMED: 5240250 (6) DVT (deep venous thrombosis) ICD Codes: I82.409 - Acute embolism and thrombosis of unspecified deep veins of unspecified lower extremity SNOMED: 801217806 (7) SOB (shortness of breath) ICD Codes: R06.02 - Shortness of breath SNOMED: 549043698 Status: stable, progressing, tolerating diet Assessment/Plan ot pt diet o2 pulm tx gi/heme f/u anticoag pulm f/u cbc bmp am dc if clear Subjective Constitutional: Reports: weakness Allergies: Coded Allergies: No Known Allergies (Unverified , 02/02/18) All Systems: reviewed and negative except above Subjective sl anxious in bed Objective Last 24 Hour Vital Signs Date Time Temp Pulse Resp B/P (MAP) Pulse Ox O2 Delivery O2 Flow Rate FiO2 02/14/18 08:53 77 144/66 02/14/18 08:00 98.0 77 18 144/66 95 Nasal Cannula 2.0 98.0 02/14/18 05:51 178/87 02/14/18 05:51 178/87 02/14/18 04:03 97.8 89 18 148/79 96 97.8 02/13/18 23:28 Room Air 02/13/18 23:26 97.6 73 20 158/75 Room Air 97.6 02/13/18 21:22 152/74 02/13/18 21:21 152/74 02/13/18 19:30 97.0 81 20 169/81 Nasal Cannula 2.5 97.0 02/13/18 19:30 Nasal Cannula 2.5 02/13/18 19:27 97.5 02/13/18 18:28 97.5 02/13/18 16:00 97.5 143/67 94 Room Air 97.5 Intake and Output 02/13/18 02/14/18 19:00 07:00 Intake Total 1745 ml Output Total 2866 ml Balance 1745 ml -2866 ml Intake Oral 1745 ml Hemodialysis UF 2866 ml # Bowel Movements 1 Laboratory Tests 02/14/18 10:45: White Blood Count 5.2, Red Blood Count 2.21L, Hemoglobin 7.2L, Hematocrit 21.2L , Mean Corpuscular Volume 96, Mean Corpuscular Hemoglobin 32.4H, Mean Corpuscular Hemoglobin Concent 33.8, Red Cell Distribution Width 16.6H, Platelet Count 131L, Mean Platelet Volume 5.7L, Neutrophils (%) (Auto) , Lymphocytes (%) (Auto) , Monocytes (%) (Auto) , Eosinophils (%) (Auto) , Basophils (%) (Auto) , Differential Total Cells Counted 100, Neutrophils % ( Manual) 66, Lymphocytes % (Manual) 24, Monocytes % (Manual) 5, Eosinophils % ( Manual) 4H, Basophils % (Manual) 1, Band Neutrophils 0, Platelet Estimate DecreasedL, Platelet Morphology Normal, Red Blood Cell Morphology , Anisocytosis 1+, Prothrombin Time 14.0H, Prothromb Time International Ratio 1.3H , Sodium Level 139, Potassium Level 3.8, Chloride Level 96L, Carbon Dioxide Level 37H, Anion Gap 6, Blood Urea Nitrogen 56H, Creatinine 6.3H, Estimat Glomerular Filtration Rate 9.0, Glucose Level 119H, Calcium Level 8.6, Phosphorus Level 5.3H, Magnesium Level 2.0 Height (Feet): 5 Height (Inches): 7.00 Weight (Pounds): 141 General Appearance: agitated EENT: normal ENT inspection Neck: normal alignment Cardiovascular: normal peripheral pulses, normal rate, regular rhythm Respiratory/Chest: chest wall non-tender, lungs clear, normal breath sounds Abdomen: normal bowel sounds, non tender, soft Extremities: normal inspection Edema: no edema noted Arm (L), no edema noted Arm (R), no edema noted Leg (L), no edema noted Leg (R), no edema noted Pedal (L), no edema noted Pedal (R), no edema noted Generalized Neurologic: responsive, motor weakness Skin: normal pigmentation, warm/dry PEDRO HUTSON February 14, 2018 14:07
--- NOTE | 2018-02-14 14:37 | Pulmonology Progress Note ---
Assessment/Plan Problems: (1) Acute respiratory failure (2) ESRF (end stage renal failure) (3) Pulmonary edema (4) DVT (deep venous thrombosis) Assessment/Plan improving s/p IVC filter HD by ad operations intern respiratory treatment titrate fio2 to sat of 92% check Hemoglobin, remains around 7 on coumadin, INR is 1.3 dc planning Subjective ROS Limited/Unobtainable: No Constitutional: Reports: no symptoms HEENT: Repors: no symptoms Respiratory: Reports: no symptoms Allergies: Coded Allergies: No Known Allergies (Unverified , 02/02/18) Objective Last 24 Hour Vital Signs Date Time Temp Pulse Resp B/P (MAP) Pulse Ox O2 Delivery O2 Flow Rate FiO2 02/14/18 08:53 77 144/66 02/14/18 08:00 98.0 77 18 144/66 95 Nasal Cannula 2.0 98.0 02/14/18 05:51 178/87 02/14/18 05:51 178/87 02/14/18 04:03 97.8 89 18 148/79 96 97.8 02/13/18 23:28 Room Air 02/13/18 23:26 97.6 73 20 158/75 Room Air 97.6 02/13/18 21:22 152/74 02/13/18 21:21 152/74 02/13/18 19:30 97.0 81 20 169/81 Nasal Cannula 2.5 97.0 02/13/18 19:30 Nasal Cannula 2.5 02/13/18 19:27 97.5 02/13/18 18:28 97.5 02/13/18 16:00 97.5 143/67 94 Room Air 97.5 Intake and Output 02/13/18 02/14/18 19:00 07:00 Intake Total 1745 ml Output Total 2866 ml Balance 1745 ml -2866 ml Intake Oral 1745 ml Hemodialysis UF 2866 ml # Bowel Movements 1 Objective General Appearance: WD/WN HEENT: normocephalic, atraumatic Respiratory/Chest: chest wall non-tender, lungs clear Cardiovascular: normal peripheral pulses, normal rate, regular rhythm Abdomen: normal bowel sounds, soft, non tender, no organomegaly, non distended Extremities: no cyanosis, no clubbing, no edema Skin: no rash, no lesions Neurologic/Psychiatric: automatic tire tester II-XII grossly normal Laboratory Tests 02/14/18 10:45: White Blood Count 5.2, Red Blood Count 2.21L, Hemoglobin 7.2L, Hematocrit 21.2L , Mean Corpuscular Volume 96, Mean Corpuscular Hemoglobin 32.4H, Mean Corpuscular Hemoglobin Concent 33.8, Red Cell Distribution Width 16.6H, Platelet Count 131L, Mean Platelet Volume 5.7L, Neutrophils (%) (Auto) , Lymphocytes (%) (Auto) , Monocytes (%) (Auto) , Eosinophils (%) (Auto) , Basophils (%) (Auto) , Differential Total Cells Counted 100, Neutrophils % ( Manual) 66, Lymphocytes % (Manual) 24, Monocytes % (Manual) 5, Eosinophils % ( Manual) 4H, Basophils % (Manual) 1, Band Neutrophils 0, Platelet Estimate DecreasedL, Platelet Morphology Normal, Red Blood Cell Morphology , Anisocytosis 1+, Prothrombin Time 14.0H, Prothromb Time International Ratio 1.3H , Sodium Level 139, Potassium Level 3.8, Chloride Level 96L, Carbon Dioxide Level 37H, Anion Gap 6, Blood Urea Nitrogen 56H, Creatinine 6.3H, Estimat Glomerular Filtration Rate 9.0, Glucose Level 119H, Calcium Level 8.6, Phosphorus Level 5.3H, Magnesium Level 2.0 Current Medications Medications (Trade) Dose Ordered Sig/Blessing Route PRN Reason Start Time Stop Time Status Last Admin Dose Admin Acetaminophen (Tylenol) 500 mg 3XW PRN ORAL WITH DIALYSIS 02/08/18 18:00 03/10/18 17:59 02/13/18 20:05 Amlodipine Besylate (Norvasc) 10 mg DAILY ORAL 02/09/18 09:00 03/05/18 11:14 02/14/18 08:53 Clonidine HCl (Catapres Tab) 0.1 mg EVERY 8 HOURS ORAL 02/08/18 22:00 03/05/18 13:59 02/14/18 05:51 Clonidine HCl (Catapres Tab) 0.1 mg Q4H PRN ORAL SBP > 160 mmHg 02/08/18 18:00 03/04/18 17:59 02/13/18 09:02 Diphenhydramine HCl (Benadryl) 50 mg Q6H PRN ORAL Itching 02/13/18 20:15 03/15/18 20:14 02/13/18 20:37 Epoetin Alfonzo (Procrit (for non ESRD use)) 5,000 units SUN-SUN-SUN SUBQ 02/08/18 21:00 03/06/18 20:59 02/13/18 20:38 Folic Acid (Folate) 1 mg DAILY ORAL 02/09/18 09:00 03/06/18 08:59 02/14/18 08:53 Gabapentin (Neurontin) 300 mg THREE TIMES A DAY ORAL 02/08/18 18:00 03/07/18 08:59 02/14/18 13:19 Haloperidol Lactate (Haldol) 5 mg Q4H PRN IM AGITATION 02/13/18 23:15 03/15/18 23:14 Hydralazine HCl (Apresoline) 25 mg Q8HR ORAL 02/09/18 14:00 03/05/18 12:59 02/14/18 05:51 Iron Sucrose 100 mg/Sodium Chloride 60 ml @ 240 mls/hr TuThSa@2100 IV 02/09/18 21:00 02/16/18 21:14 02/09/18 20:17 Lansoprazole (Prevacid) 30 mg DAILY ORAL 02/09/18 11:00 03/11/18 10:59 02/14/18 08:53 Lorazepam (Ativan 2mg/ml 1ml) 1 mg Q6H PRN IV AGITATION 02/14/18 07:30 02/16/18 11:14 Lorazepam (Ativan) 1 mg Q2H PRN ORAL For Seizures 02/14/18 07:30 02/21/18 07:29 Lorazepam (Ativan) 1 mg Q6H PRN ORAL For Anxiety 02/12/18 19:30 02/19/18 19:29 02/13/18 09:01 Oxycodone/ Acetaminophen (Percocet 5-325) 1 tab Q4H PRN ORAL Severe Pain (Pain Scale 7-10) 02/14/18 10:00 02/20/18 09:59 Prochlorperazine (Compazine) 10 mg Q6H PRN IVP Nausea & Vomiting 02/08/18 17:00 03/09/18 10:59 Quetiapine Fumarate (SEROquel) 25 mg QHS ORAL 02/08/18 21:00 03/07/18 20:59 02/13/18 20:37 Warfarin Sodium (Coumadin per pharmacy) 1 ea DAILY PRN MISC Per rx protocol 02/08/18 18:00 03/10/18 17:59 Warfarin Sodium (Coumadin) 7.5 mg COUMADIN ONCE ORAL 02/14/18 17:00 02/14/18 17:01 Zolpidem Tartrate (Ambien) 5 mg HSPRN PRN ORAL Insomnia 02/13/18 22:15 02/20/18 22:14 Clement Mcleod MD February 14, 2018 14:37
--- NOTE | 2018-02-14 15:29 | Nephrology Progress Note ---
Assessment/Plan Problem List: (1) ESRD (end stage renal disease) on dialysis (2) Acute hyperkalemia (3) Hypertension, uncontrolled (4) Left leg DVT (5) Anemia in chronic kidney disease (CKD) Assessment ESRD, on admission missed dialysis . has high K on admission has fistula right arm Sever Anemia h/o Amyloidosis COPD Plan HD next 02/15 Transfusion as needed Kayexelate as needed BP control, meds adjusted has IVC filter Neg for pulm emboli- DC heparin Subjective ROS Limited/Unobtainable: No Constitutional: Reports: malaise Objective Objective Last 24 Hour Vital Signs Date Time Temp Pulse Resp B/P (MAP) Pulse Ox O2 Delivery O2 Flow Rate FiO2 02/14/18 08:53 77 144/66 02/14/18 08:00 98.0 77 18 144/66 95 Nasal Cannula 2.0 98.0 02/14/18 05:51 178/87 02/14/18 05:51 178/87 02/14/18 04:03 97.8 89 18 148/79 96 97.8 02/13/18 23:28 Room Air 02/13/18 23:26 97.6 73 20 158/75 Room Air 97.6 02/13/18 21:22 152/74 02/13/18 21:21 152/74 02/13/18 19:30 97.0 81 20 169/81 Nasal Cannula 2.5 97.0 02/13/18 19:30 Nasal Cannula 2.5 02/13/18 19:27 97.5 02/13/18 18:28 97.5 02/13/18 16:00 97.5 143/67 94 Room Air 97.5 Intake and Output 02/13/18 02/14/18 19:00 07:00 Intake Total 1745 ml Output Total 2866 ml Balance 1745 ml -2866 ml Intake Oral 1745 ml Hemodialysis UF 2866 ml # Bowel Movements 1 Laboratory Tests 02/14/18 10:45: White Blood Count 5.2, Red Blood Count 2.21L, Hemoglobin 7.2L, Hematocrit 21.2L , Mean Corpuscular Volume 96, Mean Corpuscular Hemoglobin 32.4H, Mean Corpuscular Hemoglobin Concent 33.8, Red Cell Distribution Width 16.6H, Platelet Count 131L, Mean Platelet Volume 5.7L, Neutrophils (%) (Auto) , Lymphocytes (%) (Auto) , Monocytes (%) (Auto) , Eosinophils (%) (Auto) , Basophils (%) (Auto) , Differential Total Cells Counted 100, Neutrophils % ( Manual) 66, Lymphocytes % (Manual) 24, Monocytes % (Manual) 5, Eosinophils % ( Manual) 4H, Basophils % (Manual) 1, Band Neutrophils 0, Platelet Estimate DecreasedL, Platelet Morphology Normal, Red Blood Cell Morphology , Anisocytosis 1+, Prothrombin Time 14.0H, Prothromb Time International Ratio 1.3H , Sodium Level 139, Potassium Level 3.8, Chloride Level 96L, Carbon Dioxide Level 37H, Anion Gap 6, Blood Urea Nitrogen 56H, Creatinine 6.3H, Estimat Glomerular Filtration Rate 9.0, Glucose Level 119H, Calcium Level 8.6, Phosphorus Level 5.3H, Magnesium Level 2.0 Height (Feet): 5 Height (Inches): 7.00 Weight (Pounds): 141 General Appearance: no apparent distress Cardiovascular: normal rate Respiratory/Chest: decreased breath sounds Abdomen: soft Objective no change DALTON ROSENTHAL February 14, 2018 15:29
[2018-02-14 16:00] VITALS: BP 159/76
[2018-02-14] MEDS ORDERED: Warfarin Sodium 7.5mg ORAL ONE (17:00)
[2018-02-14] MEDS: LORazepam 1mg tab ORAL PRN (17:35)
[2018-02-14 20:00] VITALS: BP 152/80
[2018-02-14] MEDS: Iron Sucrose 100 MG in NS 55 ML IV SCH (21:41)
--- NOTE | 2018-02-14 23:32 | General Progress Note ---
Assessment/Plan Assessment/Plan IMPRESSION: 1. Acute deep venous thrombosis, left lower extremities. 2. Status post inferior vena cava filter placement. 3. Anticoagulation with Coumadin. 4. Anticoagulation with IV heparin. 5. History of gastrointestinal bleed. 6. Anemia of kidney disease. --> On Hemodialysis by lead nuclear medicine technologist 7. Anemia of chronic disease. 8. Decreased hemoglobin and hematocrit, rule out gastrointestinal bleed. 9. End-stage renal disease, hemodialysis dependent. 10. History of femoral neck fracture. 11. Hypertension. 12. Acute respiratory failure. 13. Pulmonary edema. 14. Malnutrition. 15. Failure to thrive. 16. Chronic obstructive pulmonary disease. 17. History of polysubstance abuse. 18. Benign prostatic hypertrophy. 19. Fluid overload. 20. History of hepatitis C. 21. History of posttraumatic stress disorder. 22. History of smoking. RECOMMENDATIONS: 1. Watch count. 2. Watch coagulopathy. 3. PRBC transfusion p.r.n. basis. 4. Heparin IV. 5. Coumadin p.o. 6. Procrit subcutaneously. 7. Iron IV. 8. Cardiology followup. 9. Pulmonary followup. 10. Skin care. 11. Nutrition. 12. Discussed with the staff. Subjective Date patient seen: February 13, 2018 Constitutional: Denies: no symptoms, chills, diaphoresis, fever, malaise, weakness, other HEENT: Denies: no symptoms, eye pain, blurred vision, tearing, double vision, ear pain, ear discharge, nose pain, nose congestion, throat pain, throat swelling, mouth pain, mouth swelling, other Cardiovascular: Denies: no symptoms, chest pain, edema, irregular heart rate, lightheadedness, palpitations, syncope, other Respiratory: Denies: no symptoms, cough, orthopnea, shortness of breath, SOB with excertion, SOB at rest, sputum, stridor, wheezing, other Gastrointestinal/Abdominal: Denies: no symptoms, abdomen distended, abdominal pain, black stools, tarry stools, blood in stool, constipated, diarrhea, difficulty swallowing, nausea, poor appetite, poor fluid intake, rectal bleeding , vomiting, other Genitourinary: Denies: no symptoms, burning, discharge, frequency, flank pain, hematuria, incontinence, pain, urgency, other Neurologic/Psychiatric: Denies: no symptoms, anxiety, depressed, emotional problems, headache, numbness, paresthesia, pre-existing deficit, seizure, tingling, tremors, weakness, other Hematologic/Lymphatic: Reports: anemia Allergies: Coded Allergies: No Known Allergies (Unverified , 02/02/18) Subjective H/H downtrended. S/P IVF filter placement. No fever or chills. Objective Last 24 Hour Vital Signs Date Time Temp Pulse Resp B/P (MAP) Pulse Ox O2 Delivery O2 Flow Rate FiO2 02/14/18 21:42 152/80 02/14/18 21:42 152/80 02/14/18 20:00 97.0 85 20 152/80 98 97.0 02/14/18 16:00 98.3 79 18 159/76 96 98.3 02/14/18 15:30 153/79 02/14/18 15:29 153/79 02/14/18 08:53 77 144/66 02/14/18 08:00 98.0 77 18 144/66 95 Nasal Cannula 2.0 98.0 02/14/18 05:51 178/87 02/14/18 05:51 178/87 02/14/18 04:03 97.8 89 18 148/79 96 97.8 Intake and Output 02/13/18 02/14/18 19:00 07:00 Intake Total 1745 ml Output Total 2866 ml Balance 1745 ml -2866 ml Intake Oral 1745 ml Hemodialysis UF 2866 ml # Bowel Movements 1 Laboratory Tests 02/14/18 10:45: White Blood Count 5.2, Red Blood Count 2.21L, Hemoglobin 7.2L, Hematocrit 21.2L , Mean Corpuscular Volume 96, Mean Corpuscular Hemoglobin 32.4H, Mean Corpuscular Hemoglobin Concent 33.8, Red Cell Distribution Width 16.6H, Platelet Count 131L, Mean Platelet Volume 5.7L, Neutrophils (%) (Auto) , Lymphocytes (%) (Auto) , Monocytes (%) (Auto) , Eosinophils (%) (Auto) , Basophils (%) (Auto) , Differential Total Cells Counted 100, Neutrophils % ( Manual) 66, Lymphocytes % (Manual) 24, Monocytes % (Manual) 5, Eosinophils % ( Manual) 4H, Basophils % (Manual) 1, Band Neutrophils 0, Platelet Estimate DecreasedL, Platelet Morphology Normal, Red Blood Cell Morphology , Anisocytosis 1+, Prothrombin Time 14.0H, Prothromb Time International Ratio 1.3H , Sodium Level 139, Potassium Level 3.8, Chloride Level 96L, Carbon Dioxide Level 37H, Anion Gap 6, Blood Urea Nitrogen 56H, Creatinine 6.3H, Estimat Glomerular Filtration Rate 9.0, Glucose Level 119H, Calcium Level 8.6, Phosphorus Level 5.3H, Magnesium Level 2.0 Height (Feet): 5 Height (Inches): 7.00 Weight (Pounds): 141 General Appearance: no apparent distress Cardiovascular: normal rate Respiratory/Chest: chest wall non-tender, lungs clear Abdomen: normal bowel sounds, non tender Tristen Lewis MD February 14, 2018 23:32
[2018-02-15] VITALS (9 sets, daily range): BP systolic 124–183; BP diastolic 63–93
[2018-02-15] MEDS: oxyCODONE HCL/Acetaminophen 5/325mg ORAL PRN ×4 (00:05→17:18)
[2018-02-15] MEDS: HydrALAZINE 25mg tab ORAL SCH ×3 (05:47→21:19)
--- NOTE | 2018-02-15 08:24 | General Progress Note ---
Assessment/Plan Status: stable Assessment/Plan IMPRESSION: 1. Acute deep venous thrombosis, left lower extremities. 2. Status post inferior vena cava filter placement. 3. Anticoagulation with Coumadin. 4. Anticoagulation with IV heparin. 5. History of gastrointestinal bleed. 6. Anemia of kidney disease. --> On Hemodialysis by recruitment internship 7. Anemia of chronic disease. 8. Decreased hemoglobin and hematocrit, rule out gastrointestinal bleed. 9. End-stage renal disease, hemodialysis dependent. 10. History of femoral neck fracture. 11. Hypertension. 12. Acute respiratory failure. 13. Pulmonary edema. 14. Malnutrition. 15. Failure to thrive. 16. Chronic obstructive pulmonary disease. 17. History of polysubstance abuse. 18. Benign prostatic hypertrophy. 19. Fluid overload. 20. History of hepatitis C. 21. History of posttraumatic stress disorder. 22. History of smoking. RECOMMENDATIONS: 1. Watch count. 2. Watch coagulopathy. 3. PRBC transfusion p.r.n. basis. 4. Heparin IV. 5. Coumadin p.o. 6. Procrit subcutaneously. 7. Iron IV. 8. Cardiology followup. 9. Pulmonary followup. 10. Skin care. 11. Nutrition. 12. Discussed with the staff. Subjective Date patient seen: February 14, 2018 Allergies: Coded Allergies: No Known Allergies (Unverified , 02/02/18) Subjective Patient is awake and stable. In no acute medical distress. Objective Last 24 Hour Vital Signs Date Time Temp Pulse Resp B/P (MAP) Pulse Ox O2 Delivery O2 Flow Rate FiO2 02/15/18 08:00 97.5 87 21 140/76 95 Nasal Cannula 2.0 97.5 02/15/18 05:47 153/73 02/15/18 05:47 153/73 02/15/18 04:00 97.7 90 21 153/73 92 97.7 02/15/18 00:00 98.2 91 22 167/82 95 98.2 02/14/18 21:42 152/80 02/14/18 21:42 152/80 02/14/18 20:00 97.0 85 20 152/80 98 97.0 02/14/18 16:00 98.3 79 18 159/76 96 98.3 02/14/18 15:30 153/79 02/14/18 15:29 153/79 02/14/18 08:53 77 144/66 Intake and Output 02/14/18 02/15/18 19:00 07:00 Intake Total 1220 ml 60 ml Balance 1220 ml 60 ml Intake Oral 1220 ml IV Total 60 ml # Voids 3 Laboratory Tests 02/14/18 10:45: White Blood Count 5.2, Red Blood Count 2.21L, Hemoglobin 7.2L, Hematocrit 21.2L , Mean Corpuscular Volume 96, Mean Corpuscular Hemoglobin 32.4H, Mean Corpuscular Hemoglobin Concent 33.8, Red Cell Distribution Width 16.6H, Platelet Count 131L, Mean Platelet Volume 5.7L, Neutrophils (%) (Auto) , Lymphocytes (%) (Auto) , Monocytes (%) (Auto) , Eosinophils (%) (Auto) , Basophils (%) (Auto) , Differential Total Cells Counted 100, Neutrophils % ( Manual) 66, Lymphocytes % (Manual) 24, Monocytes % (Manual) 5, Eosinophils % ( Manual) 4H, Basophils % (Manual) 1, Band Neutrophils 0, Platelet Estimate DecreasedL, Platelet Morphology Normal, Red Blood Cell Morphology , Anisocytosis 1+, Prothrombin Time 14.0H, Prothromb Time International Ratio 1.3H , Sodium Level 139, Potassium Level 3.8, Chloride Level 96L, Carbon Dioxide Level 37H, Anion Gap 6, Blood Urea Nitrogen 56H, Creatinine 6.3H, Estimat Glomerular Filtration Rate 9.0, Glucose Level 119H, Calcium Level 8.6, Phosphorus Level 5.3H, Magnesium Level 2.0 Height (Feet): 5 Height (Inches): 7.00 Weight (Pounds): 143 Tristen Lewis MD February 15, 2018 08:24
--- NOTE | 2018-02-15 09:00 | General Progress Note ---
Assessment/Plan Assessment/Plan (1) Right hip pain (2) Right hip Fracture (3) S/p ORIF of right hip Pt will continued on Percocet HOLD OPIOIDS FOR OVERSEDATION OR SBP<90 OR DBP<60 OR O2SAT<92% OR RR<12 D/w Dr. Childers he concurred. Subjective Date patient seen: February 15, 2018 Time patient seen: 08:00 - am Allergies: Coded Allergies: No Known Allergies (Unverified , 02/02/18) Subjective Constitutional: Reports: no symptoms Eye: Reports: no symptoms ENT: Reports: no symptoms Respiratory: Reports: no symptoms Cardiovascular: Reports: no symptoms Gastrointestinal: Reports: no symptoms Genitourinary: Reports: no symptoms Musculoskeletal: Reports: no symptoms Skin: Reports: no symptoms Psychiatric: Reports: no symptoms Neurological: Reports: no symptoms Endocrine: Reports: no symptoms Hematologic/Lymphatic: Reports: no symptoms Subjective Patient has no signs of pain or distress. He is comfortable using the Percocet as needed. Objective Last 24 Hour Vital Signs Date Time Temp Pulse Resp B/P (MAP) Pulse Ox O2 Delivery O2 Flow Rate FiO2 02/15/18 08:24 87 140/76 02/15/18 08:00 97.5 87 21 140/76 95 Nasal Cannula 2.0 97.5 02/15/18 05:47 153/73 02/15/18 05:47 153/73 02/15/18 04:00 97.7 90 21 153/73 92 97.7 02/15/18 00:00 98.2 91 22 167/82 95 98.2 02/14/18 21:42 152/80 02/14/18 21:42 152/80 02/14/18 20:00 97.0 85 20 152/80 98 97.0 02/14/18 16:00 98.3 79 18 159/76 96 98.3 02/14/18 15:30 153/79 02/14/18 15:29 153/79 Intake and Output 02/14/18 02/15/18 19:00 07:00 Intake Total 1220 ml 60 ml Balance 1220 ml 60 ml Intake Oral 1220 ml IV Total 60 ml # Voids 3 Laboratory Tests 02/14/18 10:45: White Blood Count 5.2, Red Blood Count 2.21L, Hemoglobin 7.2L, Hematocrit 21.2L , Mean Corpuscular Volume 96, Mean Corpuscular Hemoglobin 32.4H, Mean Corpuscular Hemoglobin Concent 33.8, Red Cell Distribution Width 16.6H, Platelet Count 131L, Mean Platelet Volume 5.7L, Neutrophils (%) (Auto) , Lymphocytes (%) (Auto) , Monocytes (%) (Auto) , Eosinophils (%) (Auto) , Basophils (%) (Auto) , Differential Total Cells Counted 100, Neutrophils % ( Manual) 66, Lymphocytes % (Manual) 24, Monocytes % (Manual) 5, Eosinophils % ( Manual) 4H, Basophils % (Manual) 1, Band Neutrophils 0, Platelet Estimate DecreasedL, Platelet Morphology Normal, Red Blood Cell Morphology , Anisocytosis 1+, Prothrombin Time 14.0H, Prothromb Time International Ratio 1.3H , Sodium Level 139, Potassium Level 3.8, Chloride Level 96L, Carbon Dioxide Level 37H, Anion Gap 6, Blood Urea Nitrogen 56H, Creatinine 6.3H, Estimat Glomerular Filtration Rate 9.0, Glucose Level 119H, Calcium Level 8.6, Phosphorus Level 5.3H, Magnesium Level 2.0 Height (Feet): 5 Height (Inches): 7.00 Weight (Pounds): 143 Objective General Appearance: no apparent distress, alert HEENT: PERRL, EOMI Neck: non-tender, normal alignment, supple, normal inspection Respiratory/Chest: lungs clear, normal breath sounds, no respiratory distress, no accessory muscle use Cardiovascular/Chest: normal rate, regular rhythm Abdomen: non tender, soft, no organomegaly Extremities: inflammation - right hip tenderness to palpation Skin Exam: normal pigmentation, warm/dry Neurologic: alert, oriented x 3 KANWAL CURRAN N. P.A. February 15, 2018 09:00
--- NOTE | 2018-02-15 10:46 | GI Progress Note ---
Assessment/Plan Problems: (1) Abnormal LFTs ICD Codes: R94.5 - Abnormal results of liver function studies SNOMED: 872666159 (2) Symptomatic anemia ICD Codes: D64.9 - Anemia, unspecified SNOMED: 270819181 (3) ESRD (end stage renal disease) on dialysis ICD Codes: N18.6 - End stage renal disease; Z99.2 - Dependence on renal dialysis SNOMED: 231926266 Status: stable Status Narrative Discussed with Dr. Matos. Assessment/Plan hx of EGD/colonoscopy 3 months ago per patient, cannot recall location. iron panel WNL OB stool negative monitor H&H, prn transfusions ppi thiamine fu labs outpatient GI procedures dc planning Subjective Subjective denies abdominal pain had EGD/colonoscopy x3 months Objective Last 24 Hour Vital Signs Date Time Temp Pulse Resp B/P (MAP) Pulse Ox O2 Delivery O2 Flow Rate FiO2 02/15/18 08:24 87 140/76 02/15/18 08:00 97.5 87 21 140/76 95 Nasal Cannula 2.0 97.5 02/15/18 05:47 153/73 02/15/18 05:47 153/73 02/15/18 04:00 97.7 90 21 153/73 92 97.7 02/15/18 00:00 98.2 91 22 167/82 95 98.2 02/14/18 21:42 152/80 02/14/18 21:42 152/80 02/14/18 20:00 97.0 85 20 152/80 98 97.0 02/14/18 16:00 98.3 79 18 159/76 96 98.3 02/14/18 15:30 153/79 02/14/18 15:29 153/79 Intake and Output 02/14/18 02/15/18 19:00 07:00 Intake Total 1220 ml 60 ml Balance 1220 ml 60 ml Intake Oral 1220 ml IV Total 60 ml # Voids 3 Height (Feet): 5 Height (Inches): 7.00 Weight (Pounds): 143 General Appearance: WD/WN, no apparent distress, alert Cardiovascular: normal rate Respiratory/Chest: normal breath sounds, no respiratory distress Abdominal Exam: normal bowel sounds, non tender, soft Extremities: normal range of motion, non-tender Ferya Aldana N.P. February 15, 2018 10:46
[2018-02-15 13:09] LABS: HEMATOCRIT 22.5 % (42.0-52.0); HEMOGLOBIN 7.7 G/DL (14.2-18.0); MEAN CORPUSCULAR VOLUME 96 FL (80-99); PLATELET COUNT 128 K/UL (150-450); RED BLOOD COUNT 2.33 M/UL (4.70-6.10); RED CELL DISTRIBUTION WIDTH 16.5 % (11.6-14.8); WHITE BLOOD COUNT 4.9 K/UL (4.8-10.8)
[2018-02-15 13:12] LABS: ANION GAP 14 mmol/L (5-15); BLOOD UREA NITROGEN 83 mg/dL (7-18); CALCIUM 8.8 MG/DL (8.5-10.1); CARBON DIOXIDE 31 MMOL/L (21-32); CHLORIDE 96 MMOL/L (98-107); CREATININE 8.1 MG/DL (0.55-1.30); POTASSIUM 4.3 MMOL/L (3.5-5.1); SODIUM 141 MMOL/L (136-145)
--- NOTE | 2018-02-15 13:14 | Nephrology Progress Note ---
Assessment/Plan Problem List: (1) ESRD (end stage renal disease) on dialysis (2) Acute hyperkalemia (3) Hypertension, uncontrolled (4) Left leg DVT (5) Anemia in chronic kidney disease (CKD) Assessment ESRD, on admission missed dialysis . has high K on admission has fistula right arm Sever Anemia h/o Amyloidosis COPD Plan HD next 02/15 Transfusion as needed Kayexelate as needed BP control, meds adjusted has IVC filter Neg for pulm emboli- DC heparin Subjective ROS Limited/Unobtainable: No Objective Objective Last 24 Hour Vital Signs Date Time Temp Pulse Resp B/P (MAP) Pulse Ox O2 Delivery O2 Flow Rate FiO2 02/15/18 12:05 97.1 70 21 124/63 99 Room Air 97.1 02/15/18 08:24 87 140/76 02/15/18 08:00 97.5 87 21 140/76 95 Nasal Cannula 2.0 97.5 02/15/18 05:47 153/73 02/15/18 05:47 153/73 02/15/18 04:00 97.7 90 21 153/73 92 97.7 02/15/18 00:00 98.2 91 22 167/82 95 98.2 02/14/18 21:42 152/80 02/14/18 21:42 152/80 02/14/18 20:00 97.0 85 20 152/80 98 97.0 02/14/18 16:00 98.3 79 18 159/76 96 98.3 02/14/18 15:30 153/79 02/14/18 15:29 153/79 Intake and Output 02/14/18 02/15/18 19:00 07:00 Intake Total 1220 ml 60 ml Balance 1220 ml 60 ml Intake Oral 1220 ml IV Total 60 ml # Voids 3 Laboratory Tests 02/15/18 12:15: White Blood Count 4.9, Red Blood Count 2.33L, Hemoglobin 7.7L, Hematocrit 22.5L , Mean Corpuscular Volume 96, Mean Corpuscular Hemoglobin 33.2H, Mean Corpuscular Hemoglobin Concent 34.5, Red Cell Distribution Width 16.5H, Platelet Count 128L, Mean Platelet Volume 5.6L, Neutrophils (%) (Auto) , Lymphocytes (%) (Auto) , Monocytes (%) (Auto) , Eosinophils (%) (Auto) , Basophils (%) (Auto) , Neutrophils % (Manual) [Pending], Lymphocytes % (Manual) [Pending], Platelet Estimate [Pending], Platelet Morphology [Pending], Prothrombin Time [Pending], Prothromb Time International Ratio [Pending], Sodium Level [Pending], Potassium Level [Pending], Chloride Level [Pending], Carbon Dioxide Level [Pending], Blood Urea Nitrogen [Pending], Creatinine [ Pending], Estimat Glomerular Filtration Rate [Pending], Glucose Level [Pending] , Calcium Level [Pending] Height (Feet): 5 Height (Inches): 7.00 Weight (Pounds): 143 Cardiovascular: regular rhythm Respiratory/Chest: decreased breath sounds Abdomen: distended Objective no change DALTON ROSENTHAL February 15, 2018 13:14
[2018-02-15 13:17] LABS: INR 1.7 (0.9-1.1)
--- NOTE | 2018-02-15 13:19 | General Progress Note ---
Assessment/Plan Problem List: (1) Abnormal laboratory test result ICD Codes: R89.9 - Unspecified abnormal finding in specimens from other organs , systems and tissues SNOMED: 220105472 (2) ESRD (end stage renal disease) on dialysis ICD Codes: N18.6 - End stage renal disease; Z99.2 - Dependence on renal dialysis SNOMED: 869435562 (3) Hypertension, uncontrolled ICD Codes: I10 - Essential (primary) hypertension SNOMED: 80789167, 93029581 (4) Symptomatic anemia ICD Codes: D64.9 - Anemia, unspecified SNOMED: 485049148 (5) Acute hyperkalemia ICD Codes: E87.5 - Hyperkalemia SNOMED: 8077083 (6) DVT (deep venous thrombosis) ICD Codes: I82.409 - Acute embolism and thrombosis of unspecified deep veins of unspecified lower extremity SNOMED: 967866162 (7) SOB (shortness of breath) ICD Codes: R06.02 - Shortness of breath SNOMED: 454971990 Status: stable, progressing, tolerating diet Assessment/Plan ot pt diet o2 pulm tx gi/heme f/u anticoag pulm f/u dc if clear Subjective Constitutional: Reports: weakness Allergies: Coded Allergies: No Known Allergies (Unverified , 02/02/18) All Systems: reviewed and negative except above Subjective calm getting dialysis Objective Last 24 Hour Vital Signs Date Time Temp Pulse Resp B/P (MAP) Pulse Ox O2 Delivery O2 Flow Rate FiO2 02/15/18 12:05 97.1 70 21 124/63 99 Room Air 97.1 02/15/18 08:24 87 140/76 02/15/18 08:00 97.5 87 21 140/76 95 Nasal Cannula 2.0 97.5 02/15/18 05:47 153/73 02/15/18 05:47 153/73 02/15/18 04:00 97.7 90 21 153/73 92 97.7 02/15/18 00:00 98.2 91 22 167/82 95 98.2 02/14/18 21:42 152/80 02/14/18 21:42 152/80 02/14/18 20:00 97.0 85 20 152/80 98 97.0 02/14/18 16:00 98.3 79 18 159/76 96 98.3 02/14/18 15:30 153/79 02/14/18 15:29 153/79 Intake and Output 02/14/18 02/15/18 19:00 07:00 Intake Total 1220 ml 60 ml Balance 1220 ml 60 ml Intake Oral 1220 ml IV Total 60 ml # Voids 3 Laboratory Tests 02/15/18 12:15: White Blood Count 4.9, Red Blood Count 2.33L, Hemoglobin 7.7L, Hematocrit 22.5L , Mean Corpuscular Volume 96, Mean Corpuscular Hemoglobin 33.2H, Mean Corpuscular Hemoglobin Concent 34.5, Red Cell Distribution Width 16.5H, Platelet Count 128L, Mean Platelet Volume 5.6L, Neutrophils (%) (Auto) , Lymphocytes (%) (Auto) , Monocytes (%) (Auto) , Eosinophils (%) (Auto) , Basophils (%) (Auto) , Neutrophils % (Manual) [Pending], Lymphocytes % (Manual) [Pending], Platelet Estimate [Pending], Platelet Morphology [Pending], Prothrombin Time [Pending], Prothromb Time International Ratio [Pending], Sodium Level 141, Potassium Level 4.3, Chloride Level 96L, Carbon Dioxide Level 31, Anion Gap 14, Blood Urea Nitrogen 83H, Creatinine 8.1H, Estimat Glomerular Filtration Rate 6.7, Glucose Level 112H, Calcium Level 8.8 Height (Feet): 5 Height (Inches): 7.00 Weight (Pounds): 143 General Appearance: alert EENT: normal ENT inspection Neck: normal alignment Cardiovascular: normal peripheral pulses, normal rate, regular rhythm Respiratory/Chest: chest wall non-tender, lungs clear, normal breath sounds Abdomen: normal bowel sounds, non tender, soft Extremities: normal inspection Edema: no edema noted Arm (L), no edema noted Arm (R), no edema noted Leg (L), no edema noted Leg (R), no edema noted Pedal (L), no edema noted Pedal (R), no edema noted Generalized Neurologic: responsive, motor weakness Skin: normal pigmentation, warm/dry PEDRO HUTSON February 15, 2018 13:19
--- NOTE | 2018-02-15 15:37 | Pulmonology Progress Note ---
Assessment/Plan Problems: (1) Acute respiratory failure (2) ESRF (end stage renal failure) (3) Pulmonary edema (4) DVT (deep venous thrombosis) Assessment/Plan improving s/p IVC filter HD by lamp cleaner respiratory treatment titrate fio2 to sat of 92% check Hemoglobin, remains around 7 on coumadin, INR is 1.7 dc planning Subjective ROS Limited/Unobtainable: No Constitutional: Reports: no symptoms HEENT: Repors: no symptoms Respiratory: Reports: no symptoms Allergies: Coded Allergies: No Known Allergies (Unverified , 02/02/18) Objective Last 24 Hour Vital Signs Date Time Temp Pulse Resp B/P (MAP) Pulse Ox O2 Delivery O2 Flow Rate FiO2 02/15/18 13:30 97.5 86 20 183/93 Room Air 97.5 02/15/18 12:05 97.1 70 21 124/63 99 Room Air 97.1 02/15/18 08:24 87 140/76 02/15/18 08:00 97.5 87 21 140/76 95 Nasal Cannula 2.0 97.5 02/15/18 05:47 153/73 02/15/18 05:47 153/73 02/15/18 04:00 97.7 90 21 153/73 92 97.7 02/15/18 00:00 98.2 91 22 167/82 95 98.2 02/14/18 21:42 152/80 02/14/18 21:42 152/80 02/14/18 20:00 97.0 85 20 152/80 98 97.0 02/14/18 16:00 98.3 79 18 159/76 96 98.3 Intake and Output 02/14/18 02/15/18 19:00 07:00 Intake Total 1220 ml 60 ml Balance 1220 ml 60 ml Intake Oral 1220 ml IV Total 60 ml # Voids 3 Objective General Appearance: WD/WN HEENT: normocephalic, atraumatic Respiratory/Chest: chest wall non-tender, lungs clear Cardiovascular: normal peripheral pulses, normal rate, regular rhythm Abdomen: normal bowel sounds, soft, non tender, no organomegaly, non distended Extremities: no cyanosis, no clubbing, no edema Skin: no rash, no lesions Neurologic/Psychiatric: pharmacovigilance specialist II-XII grossly normal Laboratory Tests 02/15/18 12:15: White Blood Count 4.9, Red Blood Count 2.33L, Hemoglobin 7.7L, Hematocrit 22.5L , Mean Corpuscular Volume 96, Mean Corpuscular Hemoglobin 33.2H, Mean Corpuscular Hemoglobin Concent 34.5, Red Cell Distribution Width 16.5H, Platelet Count 128L, Mean Platelet Volume 5.6L, Neutrophils (%) (Auto) , Lymphocytes (%) (Auto) , Monocytes (%) (Auto) , Eosinophils (%) (Auto) , Basophils (%) (Auto) , Differential Total Cells Counted 100, Neutrophils % ( Manual) 68, Lymphocytes % (Manual) 18L, Monocytes % (Manual) 9, Eosinophils % ( Manual) 5H, Basophils % (Manual) 0, Band Neutrophils 0, Platelet Estimate Adequate, Platelet Morphology Normal, Hypochromasia 1+, Anisocytosis 1+, Prothrombin Time 17.5H, Prothromb Time International Ratio 1.7H, Sodium Level 141, Potassium Level 4.3, Chloride Level 96L, Carbon Dioxide Level 31, Anion Gap 14, Blood Urea Nitrogen 83H, Creatinine 8.1H, Estimat Glomerular Filtration Rate 6.7, Glucose Level 112H, Calcium Level 8.8 Current Medications Medications (Trade) Dose Ordered Sig/Blessing Route PRN Reason Start Time Stop Time Status Last Admin Dose Admin Acetaminophen (Tylenol) 500 mg 3XW PRN ORAL WITH DIALYSIS 02/08/18 18:00 03/10/18 17:59 02/13/18 20:05 Amlodipine Besylate (Norvasc) 10 mg DAILY ORAL 02/09/18 09:00 03/05/18 11:14 02/14/18 08:53 Clonidine HCl (Catapres Tab) 0.1 mg EVERY 8 HOURS ORAL 02/08/18 22:00 03/05/18 13:59 02/15/18 05:47 Clonidine HCl (Catapres Tab) 0.1 mg Q4H PRN ORAL SBP > 160 mmHg 02/08/18 18:00 03/04/18 17:59 02/13/18 09:02 Diphenhydramine HCl (Benadryl) 50 mg Q6H PRN ORAL Itching 02/13/18 20:15 03/15/18 20:14 02/13/18 20:37 Epoetin Alfonzo (Procrit (for non ESRD use)) 5,000 units SUN-SUN-SUN SUBQ 02/08/18 21:00 03/06/18 20:59 02/13/18 20:38 Folic Acid (Folate) 1 mg DAILY ORAL 02/09/18 09:00 03/06/18 08:59 02/15/18 08:23 Gabapentin (Neurontin) 300 mg THREE TIMES A DAY ORAL 02/08/18 18:00 03/07/18 08:59 02/15/18 12:39 Haloperidol Lactate (Haldol) 5 mg Q4H PRN IM AGITATION 02/13/18 23:15 03/15/18 23:14 Hydralazine HCl (Apresoline) 25 mg Q8HR ORAL 02/09/18 14:00 03/05/18 12:59 02/15/18 05:47 Iron Sucrose 100 mg/Sodium Chloride 60 ml @ 240 mls/hr TuThSa@2100 IV 02/09/18 21:00 02/16/18 21:14 02/14/18 21:41 Lansoprazole (Prevacid) 30 mg DAILY ORAL 02/09/18 11:00 03/11/18 10:59 02/15/18 08:23 Lorazepam (Ativan 2mg/ml 1ml) 1 mg Q6H PRN IV AGITATION 02/14/18 07:30 02/16/18 11:14 Lorazepam (Ativan) 1 mg Q2H PRN ORAL For Seizures 02/14/18 07:30 02/21/18 07:29 Lorazepam (Ativan) 1 mg Q6H PRN ORAL For Anxiety 02/12/18 19:30 02/19/18 19:29 02/14/18 17:35 Oxycodone/ Acetaminophen (Percocet 5-325) 1 tab Q4H PRN ORAL Severe Pain (Pain Scale 7-10) 02/14/18 10:00 02/20/18 09:59 02/15/18 11:13 Prochlorperazine (Compazine) 10 mg Q6H PRN IVP Nausea & Vomiting 02/08/18 17:00 03/09/18 10:59 Quetiapine Fumarate (SEROquel) 25 mg QHS ORAL 02/08/18 21:00 03/07/18 20:59 02/14/18 21:41 Warfarin Sodium (Coumadin per pharmacy) 1 ea DAILY PRN MISC Per rx protocol 02/08/18 18:00 03/10/18 17:59 Warfarin Sodium (Coumadin) 7.5 mg COUMADIN ORAL 02/15/18 17:00 02/20/18 16:59 Zolpidem Tartrate (Ambien) 5 mg HSPRN PRN ORAL Insomnia 02/13/18 22:15 02/20/18 22:14 02/15/18 01:18 Clement Mcleod MD February 15, 2018 15:37
[2018-02-15] MEDS ORDERED: Tubing Blood Filter IV ONE (16:39)
[2018-02-15] MEDS ORDERED: NS 275ml ONE (16:39)
[2018-02-15] MEDS: Warfarin Sodium 7.5mg ORAL SCH (17:00)
[2018-02-15] MEDS: Epogen (for non ESRD use) SUBQ SCH (21:18)
[2018-02-16] VITALS (7 sets, daily range): BP systolic 134–173; BP diastolic 70–86
[2018-02-16] MEDS: oxyCODONE HCL/Acetaminophen 5/325mg ORAL PRN ×4 (04:47→18:43)
[2018-02-16] MEDS: HydrALAZINE 25mg tab ORAL SCH ×3 (05:30→21:34)
--- NOTE | 2018-02-16 08:56 | General Progress Note ---
Assessment/Plan Problem List: (1) Abnormal laboratory test result ICD Codes: R89.9 - Unspecified abnormal finding in specimens from other organs , systems and tissues SNOMED: 135651083 (2) ESRD (end stage renal disease) on dialysis ICD Codes: N18.6 - End stage renal disease; Z99.2 - Dependence on renal dialysis SNOMED: 824327592 (3) Hypertension, uncontrolled ICD Codes: I10 - Essential (primary) hypertension SNOMED: 53265901, 45667792 (4) Symptomatic anemia ICD Codes: D64.9 - Anemia, unspecified SNOMED: 015641599 (5) Acute hyperkalemia ICD Codes: E87.5 - Hyperkalemia SNOMED: 3613290 (6) DVT (deep venous thrombosis) ICD Codes: I82.409 - Acute embolism and thrombosis of unspecified deep veins of unspecified lower extremity SNOMED: 802229145 (7) SOB (shortness of breath) ICD Codes: R06.02 - Shortness of breath SNOMED: 228117656 Status: stable, progressing, tolerating diet Assessment/Plan ot pt diet o2 pulm tx gi/heme f/u anticoag pulm cbc bmp am f/u dc if clear Subjective Constitutional: Reports: weakness Allergies: Coded Allergies: No Known Allergies (Unverified , 02/02/18) All Systems: reviewed and negative except above Subjective sitting calm Objective Last 24 Hour Vital Signs Date Time Temp Pulse Resp B/P (MAP) Pulse Ox O2 Delivery O2 Flow Rate FiO2 02/16/18 08:02 97.9 81 20 173/81 95 Nasal Cannula 2.0 97.9 02/16/18 05:46 98.0 02/16/18 05:30 160/80 02/16/18 05:29 160/80 02/16/18 05:21 98.0 84 20 160/80 97 Nasal Cannula 3.0 98.0 02/16/18 04:47 97.2 02/16/18 04:00 98.2 84 20 153/84 97 Nasal Cannula 3.0 98.2 02/16/18 00:00 97.2 82 20 152/77 96 Nasal Cannula 3.0 97.2 02/15/18 21:19 161/73 02/15/18 21:18 161/73 02/15/18 21:07 98.0 84 20 153/76 96 Nasal Cannula 3.0 98.0 02/15/18 20:17 97.4 76 20 161/73 95 Nasal Cannula 3.0 97.4 02/15/18 16:44 Room Air 02/15/18 16:43 98.0 81 20 170/77 Room Air 98.0 02/15/18 16:00 97.8 82 18 150/78 96 97.8 02/15/18 13:30 97.5 86 20 183/93 Room Air 97.5 02/15/18 13:00 Room Air 02/15/18 12:05 97.1 70 21 124/63 99 Room Air 97.1 Intake and Output 02/15/18 02/16/18 19:00 07:00 Intake Total 1320 ml 540 ml Output Total 2350 ml Balance -1030 ml 540 ml Intake Oral 1320 ml 540 ml Hemodialysis UF 2350 ml # Voids 1 1 Laboratory Tests 02/15/18 12:15: White Blood Count 4.9, Red Blood Count 2.33L, Hemoglobin 7.7L, Hematocrit 22.5L , Mean Corpuscular Volume 96, Mean Corpuscular Hemoglobin 33.2H, Mean Corpuscular Hemoglobin Concent 34.5, Red Cell Distribution Width 16.5H, Platelet Count 128L, Mean Platelet Volume 5.6L, Neutrophils (%) (Auto) , Lymphocytes (%) (Auto) , Monocytes (%) (Auto) , Eosinophils (%) (Auto) , Basophils (%) (Auto) , Differential Total Cells Counted 100, Neutrophils % ( Manual) 68, Lymphocytes % (Manual) 18L, Monocytes % (Manual) 9, Eosinophils % ( Manual) 5H, Basophils % (Manual) 0, Band Neutrophils 0, Platelet Estimate Adequate, Platelet Morphology Normal, Hypochromasia 1+, Anisocytosis 1+, Prothrombin Time 17.5H, Prothromb Time International Ratio 1.7H, Sodium Level 141, Potassium Level 4.3, Chloride Level 96L, Carbon Dioxide Level 31, Anion Gap 14, Blood Urea Nitrogen 83H, Creatinine 8.1H, Estimat Glomerular Filtration Rate 6.7, Glucose Level 112H, Calcium Level 8.8 Height (Feet): 5 Height (Inches): 7.00 Weight (Pounds): 141 General Appearance: alert EENT: normal ENT inspection Neck: normal alignment Cardiovascular: normal peripheral pulses, normal rate, regular rhythm Respiratory/Chest: chest wall non-tender, lungs clear, normal breath sounds Abdomen: normal bowel sounds, non tender, soft Extremities: normal inspection Edema: no edema noted Arm (L), no edema noted Arm (R), no edema noted Leg (L), no edema noted Leg (R), no edema noted Pedal (L), no edema noted Pedal (R), no edema noted Generalized Neurologic: responsive, motor weakness Skin: normal pigmentation, warm/dry PEDRO HUTSON February 16, 2018 08:56
--- NOTE | 2018-02-16 09:55 | Nephrology Progress Note ---
Assessment/Plan Problem List: (1) ESRD (end stage renal disease) on dialysis (2) Acute hyperkalemia (3) Hypertension, uncontrolled (4) Left leg DVT (5) Anemia in chronic kidney disease (CKD) Assessment ESRD, on admission missed dialysis . has high K on admission has fistula right arm Sever Anemia h/o Amyloidosis COPD Plan HD last 02/15 Transfusion as needed Kayexelate as needed BP control, meds adjusted has IVC filter Neg for pulm emboli- DC heparin Subjective ROS Limited/Unobtainable: No Constitutional: Reports: malaise Objective Objective Last 24 Hour Vital Signs Date Time Temp Pulse Resp B/P (MAP) Pulse Ox O2 Delivery O2 Flow Rate FiO2 02/16/18 09:50 83 152/70 02/16/18 08:02 97.9 81 20 173/81 95 Nasal Cannula 2.0 97.9 02/16/18 05:46 98.0 02/16/18 05:30 160/80 02/16/18 05:29 160/80 02/16/18 05:21 98.0 84 20 160/80 97 Nasal Cannula 3.0 98.0 02/16/18 04:47 97.2 02/16/18 04:00 98.2 84 20 153/84 97 Nasal Cannula 3.0 98.2 02/16/18 00:00 97.2 82 20 152/77 96 Nasal Cannula 3.0 97.2 02/15/18 21:19 161/73 02/15/18 21:18 161/73 02/15/18 21:07 98.0 84 20 153/76 96 Nasal Cannula 3.0 98.0 02/15/18 20:17 97.4 76 20 161/73 95 Nasal Cannula 3.0 97.4 02/15/18 16:44 Room Air 02/15/18 16:43 98.0 81 20 170/77 Room Air 98.0 02/15/18 16:00 97.8 82 18 150/78 96 97.8 02/15/18 13:30 97.5 86 20 183/93 Room Air 97.5 02/15/18 13:00 Room Air 02/15/18 12:05 97.1 70 21 124/63 99 Room Air 97.1 Intake and Output 02/15/18 02/16/18 19:00 07:00 Intake Total 1320 ml 540 ml Output Total 2350 ml Balance -1030 ml 540 ml Intake Oral 1320 ml 540 ml Hemodialysis UF 2350 ml # Voids 1 1 Laboratory Tests 02/15/18 12:15: White Blood Count 4.9, Red Blood Count 2.33L, Hemoglobin 7.7L, Hematocrit 22.5L , Mean Corpuscular Volume 96, Mean Corpuscular Hemoglobin 33.2H, Mean Corpuscular Hemoglobin Concent 34.5, Red Cell Distribution Width 16.5H, Platelet Count 128L, Mean Platelet Volume 5.6L, Neutrophils (%) (Auto) , Lymphocytes (%) (Auto) , Monocytes (%) (Auto) , Eosinophils (%) (Auto) , Basophils (%) (Auto) , Differential Total Cells Counted 100, Neutrophils % ( Manual) 68, Lymphocytes % (Manual) 18L, Monocytes % (Manual) 9, Eosinophils % ( Manual) 5H, Basophils % (Manual) 0, Band Neutrophils 0, Platelet Estimate Adequate, Platelet Morphology Normal, Hypochromasia 1+, Anisocytosis 1+, Prothrombin Time 17.5H, Prothromb Time International Ratio 1.7H, Sodium Level 141, Potassium Level 4.3, Chloride Level 96L, Carbon Dioxide Level 31, Anion Gap 14, Blood Urea Nitrogen 83H, Creatinine 8.1H, Estimat Glomerular Filtration Rate 6.7, Glucose Level 112H, Calcium Level 8.8 Height (Feet): 5 Height (Inches): 7.00 Weight (Pounds): 141 General Appearance: no apparent distress Objective no change DALTON ROSENTHAL February 16, 2018 09:55
[2018-02-16] MEDS: LORazepam 1mg tab ORAL PRN ×2 (10:54→17:22)
[2018-02-16 11:05] LABS: HEMATOCRIT 22.8 % (42.0-52.0); HEMOGLOBIN 7.8 G/DL (14.2-18.0); MEAN CORPUSCULAR VOLUME 98 FL (80-99); PLATELET COUNT 129 K/UL (150-450); RED BLOOD COUNT 2.33 M/UL (4.70-6.10); RED CELL DISTRIBUTION WIDTH 16.9 % (11.6-14.8); WHITE BLOOD COUNT 6.1 K/UL (4.8-10.8)
[2018-02-16 11:13] LABS: INR 1.4 (0.9-1.1)
[2018-02-16 11:28] LABS: ANION GAP 14 mmol/L (5-15); BLOOD UREA NITROGEN 71 mg/dL (7-18); CALCIUM 8.6 MG/DL (8.5-10.1); CARBON DIOXIDE 31 MMOL/L (21-32); CHLORIDE 96 MMOL/L (98-107); PHOSPHORUS 5.6 MG/DL (2.5-4.9); SODIUM 140 MMOL/L (136-145)
--- NOTE | 2018-02-16 12:37 | Pulmonology Progress Note ---
Assessment/Plan Assessment/Plan ASSESSMENT symptomatic anemia anemia of chronic kidney disease end-stage renal disease on hemodialysis acute DVT left lower extremity superficial femoral vein HTN COPD generalized anxiety disorder moderate pulmonary hypertension moderate mitral regurgitation pulmonary edema acute hyperkalemia, resolved history of amyloidoses history of GI bleeding, secondary to arteriovenous malformation moderate protein calorie malnutrition history of hepatitis C history of polysubstance abuse recent open reduction internal fixation right hip secondary to fracture PLAN OF CARE Medical surgical floor Status post transfusion of total of 4 units of packed red blood cell anemia workup consistent with anemia of chronic disease 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 Follow-up with chest x-ray and HD Blood pressure management with the calcium channel adelfo, clonidine and hydralazine, optimize further as needed echocardiogram with preserved ejection fraction of 60-65% and right ventricular systolic pressure of 46 consistent with moderate pulmonary hypertension as well as evidence of moderate mitral regurgitation. 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 closely monitored renal parameters and electrolytes, avoid nephrotoxic GI closely follows Stool for occult blood negative patient on PPI according to patient, he had EGD/ colonoscopy 3 months ago but could not recall location recommended outpatient GI procedure Pain management pain specialist follows psychiatrist follows supportive therapy provided psychiatric medication regimen optimized staff genetic counselor on abstinence from street drugs and ETOH case discussed and evaluated by supervising physician Subjective Allergies: Coded Allergies: No Known Allergies (Unverified , 02/02/18) Subjective denies chest pain, SOB no evidence of acute bleeding HH at baseline, no further trend down Objective Last 24 Hour Vital Signs Date Time Temp Pulse Resp B/P (MAP) Pulse Ox O2 Delivery O2 Flow Rate FiO2 02/16/18 11:28 98.0 85 20 167/70 95 Nasal Cannula 2.0 98.0 02/16/18 09:50 83 152/70 02/16/18 08:02 97.9 81 20 173/81 95 Nasal Cannula 2.0 97.9 02/16/18 05:46 98.0 02/16/18 05:30 160/80 02/16/18 05:29 160/80 5/5/18 05:21 98.0 84 20 160/80 97 Nasal Cannula 3.0 98.0 02/16/18 04:47 97.2 02/16/18 04:00 98.2 84 20 153/84 97 Nasal Cannula 3.0 98.2 02/16/18 00:00 97.2 82 20 152/77 96 Nasal Cannula 3.0 97.2 02/15/18 21:19 161/73 02/15/18 21:18 161/73 02/15/18 21:07 98.0 84 20 153/76 96 Nasal Cannula 3.0 98.0 02/15/18 20:17 97.4 76 20 161/73 95 Nasal Cannula 3.0 97.4 02/15/18 16:44 Room Air 02/15/18 16:43 98.0 81 20 170/77 Room Air 98.0 02/15/18 16:00 97.8 82 18 150/78 96 97.8 02/15/18 13:30 97.5 86 20 183/93 Room Air 97.5 02/15/18 13:00 Room Air Intake and Output 02/15/18 02/16/18 19:00 07:00 Intake Total 1320 ml 540 ml Output Total 2350 ml Balance -1030 ml 540 ml Intake Oral 1320 ml 540 ml Hemodialysis UF 2350 ml # Voids 1 1 General Appearance: no acute distress HEENT: normocephalic, atraumatic, anicteric Respiratory/Chest: chest wall non-tender, normal breath sounds, no respiratory distress Cardiovascular: normal peripheral pulses, normal rate, other - RUE AV fistula + bruit/thrill Abdomen: normal bowel sounds, soft, non tender Extremities: other - multiple tattoos BUE Neurologic/Psychiatric: alert, responsive Musculoskeletal: normal muscle bulk Laboratory Tests 02/16/18 10:50: White Blood Count 6.1, Red Blood Count 2.33L, Hemoglobin 7.8L, Hematocrit 22.8L , Mean Corpuscular Volume 98, Mean Corpuscular Hemoglobin 33.3H, Mean Corpuscular Hemoglobin Concent 34.1, Red Cell Distribution Width 16.9H, Platelet Count 129L, Mean Platelet Volume 5.5L, Neutrophils (%) (Auto) , Lymphocytes (%) (Auto) , Monocytes (%) (Auto) , Eosinophils (%) (Auto) , Basophils (%) (Auto) , Differential Total Cells Counted 100, Neutrophils % ( Manual) 72, Lymphocytes % (Manual) 18L, Monocytes % (Manual) 7, Eosinophils % ( Manual) 3, Basophils % (Manual) 0, Band Neutrophils 0, Platelet Estimate DecreasedL, Platelet Morphology Normal, Hypochromasia 1+, Anisocytosis 1+, Prothrombin Time 15.1H, Prothromb Time International Ratio 1.4H, Sodium Level 140, Potassium Level 4.0, Chloride Level 96L, Carbon Dioxide Level 31, Anion Gap 14, Blood Urea Nitrogen 71H, Creatinine 7.0H, Estimat Glomerular Filtration Rate 8.0, Glucose Level 114H, Calcium Level 8.6, Phosphorus Level 5.6H, Magnesium Level 2.0 Current Medications Medications (Trade) Dose Ordered Sig/Blessing Route PRN Reason Start Time Stop Time Status Last Admin Dose Admin Acetaminophen (Tylenol) 500 mg 3XW PRN ORAL WITH DIALYSIS 02/08/18 18:00 03/10/18 17:59 02/13/18 20:05 Amlodipine Besylate (Norvasc) 10 mg DAILY ORAL 02/09/18 09:00 03/05/18 11:14 02/16/18 09:50 Clonidine HCl (Catapres Tab) 0.1 mg EVERY 8 HOURS ORAL 02/08/18 22:00 03/05/18 13:59 02/16/18 05:29 Clonidine HCl (Catapres Tab) 0.1 mg Q4H PRN ORAL SBP > 160 mmHg 02/08/18 18:00 03/04/18 17:59 02/13/18 09:02 Diphenhydramine HCl (Benadryl) 50 mg Q6H PRN ORAL Itching 02/13/18 20:15 03/15/18 20:14 02/13/18 20:37 Epoetin Alfonzo (Procrit (for non ESRD use)) 5,000 units SUN-SUN-SUN SUBQ 02/08/18 21:00 03/06/18 20:59 02/15/18 21:18 Folic Acid (Folate) 1 mg DAILY ORAL 02/09/18 09:00 03/06/18 08:59 02/16/18 09:48 Gabapentin (Neurontin) 300 mg THREE TIMES A DAY ORAL 02/08/18 18:00 03/07/18 08:59 02/16/18 09:48 Haloperidol Lactate (Haldol) 5 mg Q4H PRN IM AGITATION 02/13/18 23:15 03/15/18 23:14 Hydralazine HCl (Apresoline) 25 mg Q8HR ORAL 02/09/18 14:00 03/05/18 12:59 02/16/18 05:30 Iron Sucrose 100 mg/Sodium Chloride 60 ml @ 240 mls/hr TuThSa@2100 IV 02/09/18 21:00 02/16/18 21:14 02/14/18 21:41 Lansoprazole (Prevacid) 30 mg DAILY ORAL 02/09/18 11:00 03/11/18 10:59 02/16/18 09:48 Lorazepam (Ativan) 1 mg Q2H PRN ORAL For Seizures 02/14/18 07:30 02/21/18 07:29 Lorazepam (Ativan) 1 mg Q6H PRN ORAL For Anxiety 02/12/18 19:30 02/19/18 19:29 02/16/18 10:54 Oxycodone/ Acetaminophen (Percocet 5-325) 1 tab Q4H PRN ORAL Severe Pain (Pain Scale 7-10) 02/14/18 10:00 02/20/18 09:59 02/16/18 09:49 Prochlorperazine (Compazine) 10 mg Q6H PRN IVP Nausea & Vomiting 02/08/18 17:00 03/09/18 10:59 Quetiapine Fumarate (SEROquel) 25 mg QHS ORAL 02/08/18 21:00 03/07/18 20:59 02/15/18 21:17 Warfarin Sodium (Coumadin per pharmacy) 1 ea DAILY PRN MISC Per rx protocol 02/08/18 18:00 03/10/18 17:59 Warfarin Sodium (Coumadin) 7.5 mg COUMADIN ORAL 02/15/18 17:00 02/20/18 16:59 Zolpidem Tartrate (Ambien) 5 mg HSPRN PRN ORAL Insomnia 02/13/18 22:15 02/20/18 22:14 02/15/18 01:18 Mil[facility]ainesBelle[facility] HospitalSaida Zendejas NP February 16, 2018 12:37
[2018-02-16] MEDS: Warfarin Sodium 7.5mg ORAL SCH (17:21)
[2018-02-16] MEDS: Iron Sucrose 100 MG in NS 55 ML IV SCH (21:33)
[2018-02-17] VITALS: BP 147/79
--- NOTE | 2018-02-17 00:30 | Progress Note ---
DATE: 02/16/2018 SUBJECTIVE: The patient is a 63-year-old male patient with anemia and GI bleeding. The patient does have anemia and GI bleeding and this patient has altered mental status and confusion, worsened by the stress of his medical illness. That is why, his attending has requested daily psychiatric consultation during his hospital stay. MENTAL STATUS EXAMINATION: This is a 63-year-old male. Appearance is disheveled. Attitude is irritable and agitated. Affect is guarded and restricted. Intellect is poor. Mood is depressed and anxious. Motor activity, psychomotor agitation. Attention span is poor. Orientation x2. Speech is pressured. Thought process, disorganized and illogical. Thought content, auditory hallucinations, and paranoid delusions. Insight and judgment is poor. DIAGNOSIS: Paranoid schizophrenia, rule out dementia with psychosis. PLAN: Treat this patient with Seroquel 25 mg at bedtime. Provide 18 to 20 minutes of supportive psychotherapy and encouraging him to interact appropriately with staff and other patients. Chart has been reviewed and discussed with staff. Rony Corral M.D. DR: MICHELLE JOB#: [id number] CC:
[2018-02-17] MEDS: LORazepam 1mg tab ORAL PRN (04:47)
[2018-02-17] MEDS: HydrALAZINE 25mg tab ORAL SCH ×3 (05:52→22:00)
--- NOTE | 2018-02-17 06:51 | General Progress Note ---
Assessment/Plan Problem List: (1) Abnormal laboratory test result ICD Codes: R89.9 - Unspecified abnormal finding in specimens from other organs , systems and tissues SNOMED: 293779800 (2) ESRD (end stage renal disease) on dialysis ICD Codes: N18.6 - End stage renal disease; Z99.2 - Dependence on renal dialysis SNOMED: 995138626 (3) Hypertension, uncontrolled ICD Codes: I10 - Essential (primary) hypertension SNOMED: 51058604, 53717072 (4) Symptomatic anemia ICD Codes: D64.9 - Anemia, unspecified SNOMED: 261601342 (5) Acute hyperkalemia ICD Codes: E87.5 - Hyperkalemia SNOMED: 2640691 (6) DVT (deep venous thrombosis) ICD Codes: I82.409 - Acute embolism and thrombosis of unspecified deep veins of unspecified lower extremity SNOMED: 853854041 (7) SOB (shortness of breath) ICD Codes: R06.02 - Shortness of breath SNOMED: 386044408 Status: stable, progressing, tolerating diet Assessment/Plan ot pt diet o2 pulm tx gi/heme f/u anticoag pulm cbc bmp am f/u dc if clear Subjective Constitutional: Reports: weakness Allergies: Coded Allergies: No Known Allergies (Unverified , 02/02/18) All Systems: reviewed and negative except above Subjective 02nc sleep Objective Last 24 Hour Vital Signs Date Time Temp Pulse Resp B/P (MAP) Pulse Ox O2 Delivery O2 Flow Rate FiO2 02/17/18 05:52 147/79 02/17/18 05:52 147/79 02/17/18 04:00 18 Nasal Cannula 3.0 02/17/18 00:00 97.5 81 20 147/79 92 97.5 02/16/18 21:34 163/81 02/16/18 21:34 163/81 02/16/18 20:00 97.5 79 20 163/81 90 97.5 02/16/18 16:00 97.7 79 20 134/86 93 97.7 02/16/18 14:32 164/72 02/16/18 14:32 164/72 02/16/18 11:28 98.0 85 20 167/70 95 Nasal Cannula 2.0 98.0 02/16/18 09:50 83 152/70 02/16/18 08:02 97.9 81 20 173/81 95 Nasal Cannula 2.0 97.9 Intake and Output 02/16/18 02/17/18 19:00 07:00 Intake Total 360 ml Output Total 0 ml Balance 360 ml Intake Oral 360 ml Output Urine Total 0 ml # Bowel Movements 1 Laboratory Tests 02/16/18 10:50: White Blood Count 6.1, Red Blood Count 2.33L, Hemoglobin 7.8L, Hematocrit 22.8L , Mean Corpuscular Volume 98, Mean Corpuscular Hemoglobin 33.3H, Mean Corpuscular Hemoglobin Concent 34.1, Red Cell Distribution Width 16.9H, Platelet Count 129L, Mean Platelet Volume 5.5L, Neutrophils (%) (Auto) , Lymphocytes (%) (Auto) , Monocytes (%) (Auto) , Eosinophils (%) (Auto) , Basophils (%) (Auto) , Differential Total Cells Counted 100, Neutrophils % ( Manual) 72, Lymphocytes % (Manual) 18L, Monocytes % (Manual) 7, Eosinophils % ( Manual) 3, Basophils % (Manual) 0, Band Neutrophils 0, Platelet Estimate DecreasedL, Platelet Morphology Normal, Hypochromasia 1+, Anisocytosis 1+, Prothrombin Time 15.1H, Prothromb Time International Ratio 1.4H, Sodium Level 140, Potassium Level 4.0, Chloride Level 96L, Carbon Dioxide Level 31, Anion Gap 14, Blood Urea Nitrogen 71H, Creatinine 7.0H, Estimat Glomerular Filtration Rate 8.0, Glucose Level 114H, Calcium Level 8.6, Phosphorus Level 5.6H, Magnesium Level 2.0 Height (Feet): 5 Height (Inches): 7.00 Weight (Pounds): 144 General Appearance: lethargic EENT: normal ENT inspection Neck: normal alignment Cardiovascular: normal peripheral pulses, normal rate, regular rhythm Respiratory/Chest: chest wall non-tender, lungs clear, normal breath sounds Abdomen: normal bowel sounds, non tender, soft Extremities: normal inspection Edema: no edema noted Arm (L), no edema noted Arm (R), no edema noted Leg (L), no edema noted Leg (R), no edema noted Pedal (L), no edema noted Pedal (R), no edema noted Generalized Neurologic: motor weakness Skin: normal pigmentation, warm/dry PEDRO HUTSON February 17, 2018 06:51
[2018-02-17 08:00] VITALS: BP 166/79
--- NOTE | 2018-02-17 10:06 | General Progress Note ---
Assessment/Plan Status: stable Assessment/Plan IMPRESSION: 1. Acute deep venous thrombosis, left lower extremities. 2. Status post inferior vena cava filter placement. 3. Anticoagulation with Coumadin. 4. Anticoagulation with IV heparin. 5. History of gastrointestinal bleed. 6. Anemia of kidney disease. --> On Hemodialysis by world travel counselor 7. Anemia of chronic disease. 8. Decreased hemoglobin and hematocrit, rule out gastrointestinal bleed. 9. End-stage renal disease, hemodialysis dependent. 10. History of femoral neck fracture. 11. Hypertension. 12. Acute respiratory failure. 13. Pulmonary edema. 14. Malnutrition. 15. Failure to thrive. 16. Chronic obstructive pulmonary disease. 17. History of polysubstance abuse. 18. Benign prostatic hypertrophy. 19. Fluid overload. 20. History of hepatitis C. 21. History of posttraumatic stress disorder. 22. History of smoking. RECOMMENDATIONS: 1. Watch count. 2. Watch coagulopathy. 3. PRBC transfusion p.r.n. basis. 4. Heparin IV. 5. Coumadin p.o. 6. Procrit subcutaneously. 7. Iron IV. 8. Cardiology followup. 9. Pulmonary followup. 10. Skin care. 11. Nutrition. 12. Discussed with the staff. Subjective Date patient seen: February 15, 2018 Constitutional: Reports: no symptoms HEENT: Reports: no symptoms Respiratory: Reports: no symptoms Allergies: Coded Allergies: No Known Allergies (Unverified , 02/02/18) Subjective Patient is noncompliant and wanders spontaneously. Pt has episodes of aggression and confusion, with an unsteady gait. Objective Last 24 Hour Vital Signs Date Time Temp Pulse Resp B/P (MAP) Pulse Ox O2 Delivery O2 Flow Rate FiO2 02/17/18 09:11 101 166/79 02/17/18 09:10 166/79 02/17/18 08:00 97.9 101 20 166/79 92 97.9 02/17/18 05:52 147/79 02/17/18 05:52 147/79 02/17/18 04:00 18 Nasal Cannula 3.0 02/17/18 00:00 97.5 81 20 147/79 92 97.5 02/16/18 21:34 163/81 02/16/18 21:34 163/81 02/16/18 20:00 97.5 79 20 163/81 90 97.5 02/16/18 16:00 97.7 79 20 134/86 93 97.7 02/16/18 14:32 164/72 02/16/18 14:32 164/72 02/16/18 11:28 98.0 85 20 167/70 95 Nasal Cannula 2.0 98.0 Intake and Output 02/16/18 02/17/18 19:00 07:00 Intake Total 360 ml Output Total 0 ml Balance 360 ml Intake Oral 360 ml Output Urine Total 0 ml # Bowel Movements 1 Laboratory Tests 02/16/18 10:50: White Blood Count 6.1, Red Blood Count 2.33L, Hemoglobin 7.8L, Hematocrit 22.8L , Mean Corpuscular Volume 98, Mean Corpuscular Hemoglobin 33.3H, Mean Corpuscular Hemoglobin Concent 34.1, Red Cell Distribution Width 16.9H, Platelet Count 129L, Mean Platelet Volume 5.5L, Neutrophils (%) (Auto) , Lymphocytes (%) (Auto) , Monocytes (%) (Auto) , Eosinophils (%) (Auto) , Basophils (%) (Auto) , Differential Total Cells Counted 100, Neutrophils % ( Manual) 72, Lymphocytes % (Manual) 18L, Monocytes % (Manual) 7, Eosinophils % ( Manual) 3, Basophils % (Manual) 0, Band Neutrophils 0, Platelet Estimate DecreasedL, Platelet Morphology Normal, Hypochromasia 1+, Anisocytosis 1+, Prothrombin Time 15.1H, Prothromb Time International Ratio 1.4H, Sodium Level 140, Potassium Level 4.0, Chloride Level 96L, Carbon Dioxide Level 31, Anion Gap 14, Blood Urea Nitrogen 71H, Creatinine 7.0H, Estimat Glomerular Filtration Rate 8.0, Glucose Level 114H, Calcium Level 8.6, Phosphorus Level 5.6H, Magnesium Level 2.0 Height (Feet): 5 Height (Inches): 7.00 Weight (Pounds): 144 General Appearance: no apparent distress EENT: PERRL/Tristen Ward MD February 17, 2018 10:06
--- NOTE | 2018-02-17 10:08 | General Progress Note ---
Assessment/Plan Assessment/Plan IMPRESSION: 1. Acute deep venous thrombosis, left lower extremities. 2. Status post inferior vena cava filter placement. 3. Anticoagulation with Coumadin. 4. Anticoagulation with IV heparin. 5. History of gastrointestinal bleed. 6. Anemia of kidney disease. --> On Hemodialysis by byproducts supervisor 7. Anemia of chronic disease. 8. Decreased hemoglobin and hematocrit, rule out gastrointestinal bleed. 9. End-stage renal disease, hemodialysis dependent. 10. History of femoral neck fracture. 11. Hypertension. 12. Acute respiratory failure. 13. Pulmonary edema. 14. Malnutrition. 15. Failure to thrive. 16. Chronic obstructive pulmonary disease. 17. History of polysubstance abuse. 18. Benign prostatic hypertrophy. 19. Fluid overload. 20. History of hepatitis C. 21. History of posttraumatic stress disorder. 22. History of smoking. RECOMMENDATIONS: 1. Watch count. 2. Watch coagulopathy. 3. PRBC transfusion p.r.n. basis. 4. Heparin IV. 5. Coumadin p.o. 6. Procrit subcutaneously. 7. Iron IV. 8. Cardiology followup. 9. Pulmonary followup. 10. Skin care. 11. Nutrition. 12. Discussed with the staff. Subjective Date patient seen: February 16, 2018 Constitutional: Reports: no symptoms Allergies: Coded Allergies: No Known Allergies (Unverified , 02/02/18) All Systems: reviewed and negative except above Subjective Patient is awake and in wheelchair. In no acute medical distress. Objective Last 24 Hour Vital Signs Date Time Temp Pulse Resp B/P (MAP) Pulse Ox O2 Delivery O2 Flow Rate FiO2 02/17/18 09:11 101 166/79 02/17/18 09:10 166/79 02/17/18 08:00 97.9 101 20 166/79 92 97.9 02/17/18 05:52 147/79 02/17/18 05:52 147/79 02/17/18 04:00 18 Nasal Cannula 3.0 02/17/18 00:00 97.5 81 20 147/79 92 97.5 02/16/18 21:34 163/81 02/16/18 21:34 163/81 02/16/18 20:00 97.5 79 20 163/81 90 97.5 02/16/18 16:00 97.7 79 20 134/86 93 97.7 02/16/18 14:32 164/72 02/16/18 14:32 164/72 02/16/18 11:28 98.0 85 20 167/70 95 Nasal Cannula 2.0 98.0 Intake and Output 02/16/18 02/17/18 19:00 07:00 Intake Total 360 ml Output Total 0 ml Balance 360 ml Intake Oral 360 ml Output Urine Total 0 ml # Bowel Movements 1 Laboratory Tests 02/16/18 10:50: White Blood Count 6.1, Red Blood Count 2.33L, Hemoglobin 7.8L, Hematocrit 22.8L , Mean Corpuscular Volume 98, Mean Corpuscular Hemoglobin 33.3H, Mean Corpuscular Hemoglobin Concent 34.1, Red Cell Distribution Width 16.9H, Platelet Count 129L, Mean Platelet Volume 5.5L, Neutrophils (%) (Auto) , Lymphocytes (%) (Auto) , Monocytes (%) (Auto) , Eosinophils (%) (Auto) , Basophils (%) (Auto) , Differential Total Cells Counted 100, Neutrophils % ( Manual) 72, Lymphocytes % (Manual) 18L, Monocytes % (Manual) 7, Eosinophils % ( Manual) 3, Basophils % (Manual) 0, Band Neutrophils 0, Platelet Estimate DecreasedL, Platelet Morphology Normal, Hypochromasia 1+, Anisocytosis 1+, Prothrombin Time 15.1H, Prothromb Time International Ratio 1.4H, Sodium Level 140, Potassium Level 4.0, Chloride Level 96L, Carbon Dioxide Level 31, Anion Gap 14, Blood Urea Nitrogen 71H, Creatinine 7.0H, Estimat Glomerular Filtration Rate 8.0, Glucose Level 114H, Calcium Level 8.6, Phosphorus Level 5.6H, Magnesium Level 2.0 Height (Feet): 5 Height (Inches): 7.00 Weight (Pounds): 144 Tristen Lewis MD February 17, 2018 10:08
--- NOTE | 2018-02-17 10:53 | General Progress Note ---
Assessment/Plan Assessment/Plan (1) Right hip pain (2) Right hip Fracture (3) S/p ORIF of right hip Pt will continued on Percocet HOLD OPIOIDS FOR OVERSEDATION OR SBP<90 OR DBP<60 OR O2SAT<92% OR RR<12 D/w Dr. Childers he concurred. Subjective Date patient seen: February 17, 2018 Time patient seen: 09:45 - am Allergies: Coded Allergies: No Known Allergies (Unverified , 02/02/18) Subjective Constitutional: Reports: no symptoms Eye: Reports: no symptoms ENT: Reports: no symptoms Respiratory: Reports: no symptoms Cardiovascular: Reports: no symptoms Gastrointestinal: Reports: no symptoms Genitourinary: Reports: no symptoms Musculoskeletal: Reports: no symptoms Skin: Reports: no symptoms Psychiatric: Reports: no symptoms Neurological: Reports: no symptoms Endocrine: Reports: no symptoms Hematologic/Lymphatic: Reports: no symptoms Subjective Patient reports that his pain is at a moderate level using the Percocet as needed. He has no new complaints. Objective Last 24 Hour Vital Signs Date Time Temp Pulse Resp B/P (MAP) Pulse Ox O2 Delivery O2 Flow Rate FiO2 02/17/18 09:11 101 166/79 02/17/18 09:10 166/79 02/17/18 08:00 97.9 101 20 166/79 92 97.9 02/17/18 05:52 147/79 02/17/18 05:52 147/79 02/17/18 04:00 18 Nasal Cannula 3.0 02/17/18 00:00 97.5 81 20 147/79 92 97.5 02/16/18 21:34 163/81 02/16/18 21:34 163/81 02/16/18 20:00 97.5 79 20 163/81 90 97.5 02/16/18 16:00 97.7 79 20 134/86 93 97.7 02/16/18 14:32 164/72 02/16/18 14:32 164/72 02/16/18 11:28 98.0 85 20 167/70 95 Nasal Cannula 2.0 98.0 Intake and Output 02/16/18 02/17/18 19:00 07:00 Intake Total 360 ml Output Total 0 ml Balance 360 ml Intake Oral 360 ml Output Urine Total 0 ml # Bowel Movements 1 Height (Feet): 5 Height (Inches): 7.00 Weight (Pounds): 144 Objective General Appearance: no apparent distress, alert HEENT: PERRL, EOMI Neck: non-tender, normal alignment, supple, normal inspection Respiratory/Chest: lungs clear, normal breath sounds, no respiratory distress, no accessory muscle use Cardiovascular/Chest: normal rate, regular rhythm Abdomen: non tender, soft, no organomegaly Extremities: inflammation - right hip tenderness to palpation Skin Exam: normal pigmentation, warm/dry Neurologic: alert, oriented x 3 KANWAL CURRAN February 17, 2018 10:53
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
[2018-02-17 11:21] LABS: HEMATOCRIT 21.9 % (42.0-52.0); HEMOGLOBIN 7.5 G/DL (14.2-18.0); MEAN CORPUSCULAR VOLUME 97 FL (80-99); PLATELET COUNT 143 K/UL (150-450); RED BLOOD COUNT 2.27 M/UL (4.70-6.10); RED CELL DISTRIBUTION WIDTH 16.3 % (11.6-14.8); WHITE BLOOD COUNT 6.5 K/UL (4.8-10.8)
--- NOTE | 2018-02-17 11:24 | Nephrology Progress Note ---
Assessment/Plan Problem List: (1) ESRD (end stage renal disease) on dialysis (2) Acute hyperkalemia (3) Hypertension, uncontrolled (4) Left leg DVT (5) Anemia in chronic kidney disease (CKD) Assessment ESRD, on admission missed dialysis . has high K on admission has fistula right arm Sever Anemia h/o Amyloidosis COPD Plan HD last 02/15 next 02/18 Transfusion as needed Kayexelate as needed BP control, meds adjusted has IVC filter Neg for pulm emboli- DC heparin Subjective ROS Limited/Unobtainable: No Constitutional: Reports: malaise Objective Objective Last 24 Hour Vital Signs Date Time Temp Pulse Resp B/P (MAP) Pulse Ox O2 Delivery O2 Flow Rate FiO2 02/17/18 09:11 101 166/79 02/17/18 09:10 166/79 02/17/18 08:00 97.9 101 20 166/79 92 97.9 02/17/18 05:52 147/79 02/17/18 05:52 147/79 02/17/18 04:00 18 Nasal Cannula 3.0 02/17/18 00:00 97.5 81 20 147/79 92 97.5 02/16/18 21:34 163/81 02/16/18 21:34 163/81 02/16/18 20:00 97.5 79 20 163/81 90 97.5 02/16/18 16:00 97.7 79 20 134/86 93 97.7 02/16/18 14:32 164/72 02/16/18 14:32 164/72 02/16/18 11:28 98.0 85 20 167/70 95 Nasal Cannula 2.0 98.0 Intake and Output 02/16/18 02/17/18 19:00 07:00 Intake Total 360 ml Output Total 0 ml Balance 360 ml Intake Oral 360 ml Output Urine Total 0 ml # Bowel Movements 1 Laboratory Tests 02/17/18 10:53: White Blood Count 6.5, Red Blood Count 2.27L, Hemoglobin 7.5L, Hematocrit 21.9L , Mean Corpuscular Volume 97, Mean Corpuscular Hemoglobin 33.0H, Mean Corpuscular Hemoglobin Concent 34.2, Red Cell Distribution Width 16.3H, Platelet Count 143L, Mean Platelet Volume 6.3L, Neutrophils (%) (Auto) , Lymphocytes (%) (Auto) , Monocytes (%) (Auto) , Eosinophils (%) (Auto) , Basophils (%) (Auto) , Neutrophils % (Manual) [Pending], Lymphocytes % (Manual) [Pending], Platelet Estimate [Pending], Platelet Morphology [Pending], Prothrombin Time [Pending], Prothromb Time International Ratio [Pending], Sodium Level [Pending], Potassium Level [Pending], Chloride Level [Pending], Carbon Dioxide Level [Pending], Blood Urea Nitrogen [Pending], Creatinine [ Pending], Estimat Glomerular Filtration Rate [Pending], Glucose Level [Pending] , Calcium Level [Pending] Height (Feet): 5 Height (Inches): 7.00 Weight (Pounds): 144 General Appearance: no apparent distress Objective no change DALTON ROSENTHAL February 17, 2018 11:24
[2018-02-17 11:30] LABS: INR 1.4 (0.9-1.1)
[2018-02-17 11:36] LABS: ANION GAP 14 mmol/L (5-15); BLOOD UREA NITROGEN 99 mg/dL (7-18); CALCIUM 8.9 MG/DL (8.5-10.1); CARBON DIOXIDE 28 MMOL/L (21-32); CHLORIDE 96 MMOL/L (98-107); CREATININE 8.4 MG/DL (0.55-1.30); POTASSIUM 4.9 MMOL/L (3.5-5.1); SODIUM 138 MMOL/L (136-145)
[2018-02-17 12:00] VITALS: BP 173/85
[2018-02-17] MEDS: oxyCODONE HCL/Acetaminophen 5/325mg ORAL PRN (13:44)
[2018-02-17 16:00] VITALS: BP 158/84
--- NOTE | 2018-02-17 18:14 | General Progress Note ---
Assessment/Plan Assessment/Plan IMPRESSION: 1. Acute deep venous thrombosis, left lower extremities. 2. Status post inferior vena cava filter placement. 3. Anticoagulation with Coumadin. 4. Anticoagulation with IV heparin. 5. History of gastrointestinal bleed. 6. Anemia of kidney disease. --> On Hemodialysis by gis analyst developer 7. Anemia of chronic disease. 8. Decreased hemoglobin and hematocrit, rule out gastrointestinal bleed. 9. End-stage renal disease, hemodialysis dependent. 10. History of femoral neck fracture. 11. Hypertension. 12. Acute respiratory failure. 13. Pulmonary edema. 14. Malnutrition. 15. Failure to thrive. 16. Chronic obstructive pulmonary disease. 17. History of polysubstance abuse. 18. Benign prostatic hypertrophy. 19. Fluid overload. 20. History of hepatitis C. 21. History of posttraumatic stress disorder. 22. History of smoking. RECOMMENDATIONS: 1. Watch count. 2. Watch coagulopathy. 3. PRBC transfusion p.r.n. basis. 4. Heparin IV. 5. Coumadin p.o. 6. Procrit subcutaneously. 7. Iron IV. 8. Cardiology followup. 9. Pulmonary followup. 10. Skin care. 11. Nutrition. 12. Discussed with the staff. Subjective Date patient seen: February 17, 2018 Constitutional: Denies: no symptoms, chills, diaphoresis, fever, malaise, weakness, other HEENT: Denies: no symptoms, eye pain, blurred vision, tearing, double vision, ear pain, ear discharge, nose pain, nose congestion, throat pain, throat swelling, mouth pain, mouth swelling, other Cardiovascular: Denies: no symptoms, chest pain, edema, irregular heart rate, lightheadedness, palpitations, syncope, other Respiratory: Denies: no symptoms, cough, orthopnea, shortness of breath, SOB with excertion, SOB at rest, sputum, stridor, wheezing, other Gastrointestinal/Abdominal: Denies: no symptoms, abdomen distended, abdominal pain, black stools, tarry stools, blood in stool, constipated, diarrhea, difficulty swallowing, nausea, poor appetite, poor fluid intake, rectal bleeding , vomiting, other Genitourinary: Denies: no symptoms, burning, discharge, frequency, flank pain, hematuria, incontinence, pain, urgency, other Neurologic/Psychiatric: Denies: no symptoms, anxiety, depressed, emotional problems, headache, numbness, paresthesia, pre-existing deficit, seizure, tingling, tremors, weakness, other Endocrine: Denies: no symptoms, excessive sweating, flushing, intolerance to cold, intolerance to heat, increased hunger, increased thirst, increased urine, unexplained weight gain, unexplained weight loss, other Allergies: Coded Allergies: No Known Allergies (Unverified , 02/02/18) Subjective On pain management. Platelets improved. In no acute medical distress. Objective Last 24 Hour Vital Signs Date Time Temp Pulse Resp B/P (MAP) Pulse Ox O2 Delivery O2 Flow Rate FiO2 02/17/18 16:00 97.6 96 28 158/84 97.6 02/17/18 13:46 Nasal Cannula 2.0 28 02/17/18 13:46 92 Venturi Mask 14.0 55 02/17/18 13:45 173/85 02/17/18 13:44 98.1 02/17/18 13:43 173/85 02/17/18 12:00 98.1 101 20 173/85 93 98.1 02/17/18 09:11 101 166/79 02/17/18 09:10 166/79 02/17/18 08:00 97.9 101 20 166/79 92 97.9 02/17/18 05:52 147/79 02/17/18 05:52 147/79 02/17/18 04:00 18 Nasal Cannula 3.0 02/17/18 00:00 97.5 81 20 147/79 92 97.5 02/16/18 21:34 163/81 02/16/18 21:34 163/81 02/16/18 20:00 97.5 79 20 163/81 90 97.5 Intake and Output 02/16/18 02/17/18 19:00 07:00 Intake Total 360 ml Output Total 0 ml Balance 360 ml Intake Oral 360 ml Output Urine Total 0 ml # Bowel Movements 1 Laboratory Tests 02/17/18 10:53: White Blood Count 6.5, Red Blood Count 2.27L, Hemoglobin 7.5L, Hematocrit 21.9L , Mean Corpuscular Volume 97, Mean Corpuscular Hemoglobin 33.0H, Mean Corpuscular Hemoglobin Concent 34.2, Red Cell Distribution Width 16.3H, Platelet Count 143L, Mean Platelet Volume 6.3L, Neutrophils (%) (Auto) , Lymphocytes (%) (Auto) , Monocytes (%) (Auto) , Eosinophils (%) (Auto) , Basophils (%) (Auto) , Differential Total Cells Counted 100, Neutrophils % ( Manual) 77H, Lymphocytes % (Manual) 12L, Monocytes % (Manual) 8, Eosinophils % ( Manual) 3, Basophils % (Manual) 0, Band Neutrophils 0, Platelet Estimate Adequate, Platelet Morphology Normal, Polychromasia 1+, Hypochromasia 1+, Anisocytosis 1+, Prothrombin Time 15.2H, Prothromb Time International Ratio 1.4H , Sodium Level 138, Potassium Level 4.9, Chloride Level 96L, Carbon Dioxide Level 28, Anion Gap 14, Blood Urea Nitrogen 99H, Creatinine 8.4H, Estimat Glomerular Filtration Rate 6.5, Glucose Level 109H, Calcium Level 8.9 Height (Feet): 5 Height (Inches): 7.00 Weight (Pounds): 144 General Appearance: no apparent distress EENT: PERRL/EOMI Neck: non-tender, normal alignment Cardiovascular: normal rate, regular rhythm Respiratory/Chest: chest wall non-tender, lungs clear Abdomen: normal bowel sounds, non tender Tristen Lewis MD February 17, 2018 18:14
[2018-02-17] MEDS: Warfarin Sodium 7.5mg ORAL SCH (18:17)
[2018-02-17] MEDS: Levalbuterol Inh UD 1.25mg/0.5ml HHN SCH (19:25)
--- NOTE | 2018-02-17 19:30 | Progress Note ---
HISTORY OF PRESENT ILLNESS: The patient is a 63-year-old male patient with anemia and GI bleeding. This patient continues to have some confusion, disorganized thought process, and mood lability. So, his attending physician has requested daily psychiatric consultation. Admitted to the hospital because of anemia and GI bleeding. Because of that, attending has requested daily psychiatric consultation and continued . MENTAL STATUS EXAMINATION: This is a 63-year-old male. Appearance, disheveled. Attitude, irritable and agitated. Affect, guarded and restricted. Intellect poor. Mood is depressed and anxious. Motor activity, psychomotor agitation. Attention span is poor. Orientation x3. Speech is pressured. Thought process, disorganized and logical. Thought content, no auditory hallucinations or paranoid delusions. Insight and judgement are poor. DIAGNOSIS: Major depressive disorder with psychotic features, rule out pseudodementia. PLAN: Continue treating this patient with Seroquel 25 mg nightly. Provided 18 to 20 minutes of supportive psychotherapy. Chart reviewed and discussed with staff. The patient seen and assessed at bedside. Rony Corral M.D. DR: Hoang JOB#: [id number] CC:
[2018-02-17 20:00] VITALS: BP 146/81
[2018-02-17 21:00] VITALS: BP 164/64
[2018-02-18] VITALS (21 sets, daily range): BP systolic 110–172; BP diastolic 33–82
[2018-02-18] MEDS: HydrALAZINE 25mg tab ORAL SCH ×3 (05:38→21:41)
[2018-02-18 06:26] LABS: HEMATOCRIT 19.4 % (42.0-52.0); MEAN CORPUSCULAR VOLUME 98 FL (80-99); PLATELET COUNT 130 K/UL (150-450); RED BLOOD COUNT 1.99 M/UL (4.70-6.10); RED CELL DISTRIBUTION WIDTH 16.8 % (11.6-14.8); WHITE BLOOD COUNT 9.4 K/UL (4.8-10.8)
[2018-02-18 06:37] LABS: HEMOGLOBIN 6.8 G/DL (14.2-18.0)
[2018-02-18 06:44] LABS: ANION GAP 14 mmol/L (5-15); BLOOD UREA NITROGEN 113 mg/dL (7-18); CALCIUM 7.8 MG/DL (8.5-10.1); CARBON DIOXIDE 26 MMOL/L (21-32); CHLORIDE 96 MMOL/L (98-107); CREATININE 10.5 MG/DL (0.55-1.30); SODIUM 137 MMOL/L (136-145)
[2018-02-18 06:47] LABS: POTASSIUM 6.7 MMOL/L (3.5-5.1)
[2018-02-18] MEDS: Levalbuterol Inh UD 1.25mg/0.5ml HHN SCH ×3 (07:10→19:04)
--- NOTE | 2018-02-18 08:57 | General Progress Note ---
Assessment/Plan Assessment/Plan (1) Right hip pain (2) Right hip Fracture (3) S/p ORIF of right hip Pt will continued on Percocet HOLD OPIOIDS FOR OVERSEDATION OR SBP<90 OR DBP<60 OR O2SAT<92% OR RR<12 D/w Dr. Childers he concurred. Subjective Date patient seen: February 18, 2018 Time patient seen: 07:45 - am Allergies: Coded Allergies: No Known Allergies (Unverified , 02/02/18) Subjective Patient transferred to ICU due to repository distress and started on bipap needing dialysis. Objective Last 24 Hour Vital Signs Date Time Temp Pulse Resp B/P (MAP) Pulse Ox O2 Delivery O2 Flow Rate FiO2 02/18/18 07:12 116 21 96 Full Face 40 02/18/18 07:11 Bi-pap 40 02/18/18 07:11 96 Bi-pap 40 02/18/18 07:10 58 21 97 Bi-pap 40 02/18/18 07:00 58 20 134/42 92 Bi-pap 40 02/18/18 06:00 96 20 172/55 97 Bi-pap 40 02/18/18 05:38 151/82 02/18/18 05:38 151/82 02/18/18 05:16 91 25 96 Full Face 40 02/18/18 05:00 92 20 151/82 95 Bi-pap 40 02/18/18 04:10 88 Venturi Mask 40 02/18/18 04:00 40 02/18/18 04:00 56 02/18/18 04:00 97.9 56 22 123/60 98 Bi-pap 40 97.9 02/18/18 03:30 61 22 97 Full Face 40 02/18/18 03:00 57 25 137/33 99 Bi-pap 02/18/18 02:00 58 24 140/37 95 Bi-pap 02/18/18 01:30 64 30 95 Full Face 40 02/18/18 01:00 62 27 125/42 93 Bi-pap 02/18/18 00:00 61 25 110/42 93 Bi-pap 02/18/18 00:00 61 02/18/18 00:00 40 02/17/18 23:27 68 31 93 Facial 40 02/17/18 22:32 164/64 02/17/18 22:00 164/64 02/17/18 22:00 60 02/17/18 21:13 104 30 95 Facial 40 02/17/18 21:10 60 02/17/18 21:09 85 02/17/18 21:00 98.3 98 27 164/64 94 Bi-pap 98.3 02/17/18 20:00 98.0 150 28 146/81 94 Bi-pap 98.0 02/17/18 19:28 86 33 94 Facial 50 02/17/18 19:27 106 32 95 Bi-pap 50 02/17/18 19:26 104 30 92 Bi-pap 50 02/17/18 19:20 85 33 Bi-pap 60 02/17/18 19:19 Bi-pap 60 02/17/18 19:18 95 Bi-pap 60 02/17/18 16:00 97.6 96 28 158/84 97.6 02/17/18 14:43 97.6 02/17/18 13:46 Nasal Cannula 2.0 28 02/17/18 13:46 92 Venturi Mask 14.0 55 02/17/18 13:45 173/85 02/17/18 13:44 98.1 02/17/18 13:43 173/85 02/17/18 12:00 98.1 101 20 173/85 93 98.1 02/17/18 09:11 101 166/79 02/17/18 09:10 166/79 Intake and Output 02/17/18 02/18/18 19:00 07:00 Intake Total 360 ml 90 ml Output Total 0 ml Balance 360 ml 90 ml Intake Oral 360 ml 90 ml Output Urine Total 0 ml Laboratory Tests 02/17/18 10:53: White Blood Count 6.5, Red Blood Count 2.27L, Hemoglobin 7.5L, Hematocrit 21.9L , Mean Corpuscular Volume 97, Mean Corpuscular Hemoglobin 33.0H, Mean Corpuscular Hemoglobin Concent 34.2, Red Cell Distribution Width 16.3H, Platelet Count 143L, Mean Platelet Volume 6.3L, Neutrophils (%) (Auto) , Lymphocytes (%) (Auto) , Monocytes (%) (Auto) , Eosinophils (%) (Auto) , Basophils (%) (Auto) , Differential Total Cells Counted 100, Neutrophils % ( Manual) 77H, Lymphocytes % (Manual) 12L, Monocytes % (Manual) 8, Eosinophils % ( Manual) 3, Basophils % (Manual) 0, Band Neutrophils 0, Platelet Estimate Adequate, Platelet Morphology Normal, Polychromasia 1+, Hypochromasia 1+, Anisocytosis 1+, Prothrombin Time 15.2H, Prothromb Time International Ratio 1.4H , Sodium Level 138, Potassium Level 4.9, Chloride Level 96L, Carbon Dioxide Level 28, Anion Gap 14, Blood Urea Nitrogen 99H, Creatinine 8.4H, Estimat Glomerular Filtration Rate 6.5, Glucose Level 109H, Calcium Level 8.9 02/17/18 18:37: Arterial Blood pH 7.479H, Arterial Blood Partial Pressure CO2 39.5, Arterial Blood Partial Pressure O2 106.0H, Arterial Blood HCO3 28.7H, Arterial Blood Oxygen Saturation 97.1, Arterial Blood Base Excess 4.8, Manuel Test Positive 02/17/18 23:07: Troponin I 0.045 02/18/18 04:00: White Blood Count 9.4, Red Blood Count 1.99L, Hemoglobin 6.8*L, Hematocrit 19.4L , Mean Corpuscular Volume 98, Mean Corpuscular Hemoglobin 34.2H, Mean Corpuscular Hemoglobin Concent 35.0, Red Cell Distribution Width 16.8H, Platelet Count 130L, Mean Platelet Volume 6.5, Neutrophils (%) (Auto) , Lymphocytes (%) (Auto) , Monocytes (%) (Auto) , Eosinophils (%) (Auto) , Basophils (%) (Auto) , Differential Total Cells Counted 100, Neutrophils % ( Manual) 89H, Lymphocytes % (Manual) 8L, Monocytes % (Manual) 3, Eosinophils % ( Manual) 0, Basophils % (Manual) 0, Band Neutrophils 0, Platelet Estimate DecreasedL, Platelet Morphology Normal, Anisocytosis 1+, Prothrombin Time 20.9H , Prothromb Time International Ratio 2.0H, Sodium Level 137, Potassium Level 6.7 *H, Chloride Level 96L, Carbon Dioxide Level 26, Anion Gap 14, Blood Urea Nitrogen 113H, Creatinine 10.5H, Estimat Glomerular Filtration Rate 5.0, Glucose Level 101, Calcium Level 7.8L, Troponin I 0.068H Height (Feet): 5 Height (Inches): 7.00 Weight (Pounds): 143 Objective Neck: non-tender, normal alignment, supple, normal inspection Respiratory/Chest: decreased breath sounds on bipap Cardiovascular/Chest: normal rate, regular rhythm Abdomen: non tender, soft, no organomegaly Extremities: inflammation - right hip tenderness to palpation Skin Exam: normal pigmentation, warm/dry KANWAL CURRAN February 18, 2018 08:57
[2018-02-18] MEDS ORDERED: Lidocaine 1% Plain 30 ml INJ ONE (09:12)
[2018-02-18] MEDS ORDERED: Heparin 2000 units/Ns 1000ml INJ ONE (09:12)
--- NOTE | 2018-02-18 09:36 | Diagnostic Imaging Report ---
Indication: Dyspnea Comparison: 02/08/2018 A single view chest radiograph was obtained. Findings: There is interstitial edema which appears to have progressed slightly since the last study. There is a moderate right pleural effusion which may be partially loculated. There is a ovoid density in the right midlung which is probably fissural fluid. The heart is enlarged. Bones are osteopenic. IMPRESSION: Slightly worsening CHF. Loculated right pleural effusion
--- NOTE | 2018-02-18 10:33 | Diagnostic Imaging Report ---
APPROVED REPORT CPT Code: 57810 Present Symptoms Comments: BILATERAL LEGS PAIN. RIGHT LEG: Venous imaging reveals a patent deep venous system. There is no evidence of thrombus within the femoral, popliteal or tibial segments. The greater saphenous vein is also within normal limits. Doppler indicates normal spontaneous flow within these segments. LEFT LEG: Venous imaging reveals acute thrombus in the superficial femoral vein. Imaging also reveals patency of the common femoral and popliteal veins. Calf veins not visualized due to open wound. Greater saphenous vein also within normal limits.
--- NOTE | 2018-02-18 11:01 | Pulmonolgy Critical Care Note ---
Critical Care - Asmt/Plan Problems: (1) Acute respiratory failure (2) ESRD (end stage renal disease) on dialysis (3) Symptomatic anemia (4) Left leg DVT (5) Pulmonary edema Respiratory: monitor respiratory rate, adjust FIO2, CXR, ABG Cardiac: continue to monitor HR/BP Renal: F/U I&O Infectious Disease: check cultures, continue antibiotics Gastrointestinal: hold feedings Endocrine: monitor blood sugar Hematologic: transfuse if hgb<8.5 Neurologic: PRN Ativan, PRN Morphine, keep patient comfortable Prophylaxis: Protonix, Heparin Disposition: keep in ICU Time Spent (Minutes): 40 Notes Reviewed: cardio, renal Discussed with: nurses, consultants, social work case managercontrol manager - Objective Last 24 Hour Vital Signs Date Time Temp Pulse Resp B/P (MAP) Pulse Ox O2 Delivery O2 Flow Rate FiO2 02/18/18 10:00 75 20 147/46 99 Bi-pap 40 02/18/18 09:10 91 155/60 02/18/18 09:10 92 17 100 Full Face 40 02/18/18 09:00 72 19 150/45 96 Bi-pap 40 02/18/18 08:00 40 02/18/18 08:00 98.2 69 18 134/59 98 Bi-pap 40 98.2 02/18/18 08:00 71 02/18/18 07:12 116 21 96 Full Face 40 02/18/18 07:11 Bi-pap 40 02/18/18 07:11 96 Bi-pap 40 02/18/18 07:10 58 21 97 Bi-pap 40 02/18/18 07:00 58 20 134/42 92 Bi-pap 40 02/18/18 06:00 96 20 172/55 97 Bi-pap 40 02/18/18 05:38 151/82 02/18/18 05:38 151/82 02/18/18 05:16 91 25 96 Full Face 40 02/18/18 05:00 92 20 151/82 95 Bi-pap 40 02/18/18 04:10 88 Venturi Mask 40 02/18/18 04:00 40 02/18/18 04:00 56 02/18/18 04:00 97.9 56 22 123/60 98 Bi-pap 40 97.9 02/18/18 03:30 61 22 97 Full Face 40 5/7/18 03:00 57 25 137/33 99 Bi-pap 02/18/18 02:00 58 24 140/37 95 Bi-pap 02/18/18 01:30 64 30 95 Full Face 40 02/18/18 01:00 62 27 125/42 93 Bi-pap 02/18/18 00:00 61 25 110/42 93 Bi-pap 02/18/18 00:00 61 02/18/18 00:00 40 02/17/18 23:27 68 31 93 Facial 40 02/17/18 22:32 164/64 02/17/18 22:00 164/64 02/17/18 22:00 60 02/17/18 21:13 104 30 95 Facial 40 02/17/18 21:10 60 02/17/18 21:09 85 02/17/18 21:00 98.3 98 27 164/64 94 Bi-pap 98.3 02/17/18 20:00 98.0 150 28 146/81 94 Bi-pap 98.0 02/17/18 19:28 86 33 94 Facial 50 02/17/18 19:27 106 32 95 Bi-pap 50 02/17/18 19:26 104 30 92 Bi-pap 50 02/17/18 19:20 85 33 Bi-pap 60 02/17/18 19:19 Bi-pap 60 02/17/18 19:18 95 Bi-pap 60 02/17/18 16:00 97.6 96 28 158/84 97.6 02/17/18 14:43 97.6 02/17/18 13:46 Nasal Cannula 2.0 28 02/17/18 13:46 92 Venturi Mask 14.0 55 02/17/18 13:45 173/85 02/17/18 13:44 98.1 02/17/18 13:43 173/85 02/17/18 12:00 98.1 101 20 173/85 93 98.1 Status: awake Condition: critical HEENT: atraumatic Lungs: chest wall tender Heart: HR/BP stable Abdomen: soft Extremities: no C/C/E Accucheck: 117 Critical Care - Subjective ROS Limited/Unobtainable: Yes ICU Day: 2 Intubation Day: on BIPAP Interval Events: transferred to ICU because of dyspnea and desaturation. His saturation improved after putting on BIPAP. Condition: critical EKG Rhythm: Sinus Rhythm FI02: 40 Sputum Amount: None I&O: Intake and Output 02/17/18 02/18/18 19:00 07:00 Intake Total 360 ml 90 ml Output Total 0 ml Balance 360 ml 90 ml Intake Oral 360 ml 90 ml Output Urine Total 0 ml CXR: increasing R effusion and pulmonary edema Labs: Laboratory Tests Test 02/17/18 18:37 02/17/18 23:07 02/18/18 04:00 02/18/18 10:30 Arterial Blood pH 7.479 (7.350-7.450) Arterial Blood Partial Pressure CO2 39.5 mmHg (35.0-45.0) Arterial Blood Partial Pressure O2 106.0 mmHg (75.0-100.0) H Arterial Blood HCO3 28.7 mmol/L (22.0-26.0) H Arterial Blood Oxygen Saturation 97.1 % (92.0-98.0) Arterial Blood Base Excess 4.8 Manuel Test Positive Troponin I 0.045 ng/mL (0.000-0.056) 0.068 ng/mL (0.000-0.056) Pending White Blood Count 9.4 K/UL (4.8-10.8) Red Blood Count 1.99 M/UL (4.70-6.10) L Hemoglobin 6.8 G/DL (14.2-18.0) *L Hematocrit 19.4 % (42.0-52.0) L Mean Corpuscular Volume 98 FL (80-99) Mean Corpuscular Hemoglobin 34.2 PG (27.0-31.0) H Mean Corpuscular Hemoglobin Concent 35.0 G/DL (32.0-36.0) Red Cell Distribution Width 16.8 % (11.6-14.8) H Platelet Count 130 K/UL (150-450) L Mean Platelet Volume 6.5 FL (6.5-10.1) Neutrophils (%) (Auto) % (45.0-75.0) Lymphocytes (%) (Auto) % (20.0-45.0) Monocytes (%) (Auto) % (1.0-10.0) Eosinophils (%) (Auto) % (0.0-3.0) Basophils (%) (Auto) % (0.0-2.0) Differential Total Cells Counted 100 Neutrophils % (Manual) 89 % (45-75) H Lymphocytes % (Manual) 8 % (20-45) L Monocytes % (Manual) 3 % (1-10) Eosinophils % (Manual) 0 % (0-3) Basophils % (Manual) 0 % (0-2) Band Neutrophils 0 % (0-8) Platelet Estimate Decreased L Platelet Morphology Normal Anisocytosis 1+ Prothrombin Time 20.9 SEC (9.30-11.50) H Prothromb Time International Ratio 2.0 (0.9-1.1) H Sodium Level 137 MMOL/L (136-145) Potassium Level 6.7 MMOL/L (3.5-5.1) *H Chloride Level 96 MMOL/L (98-107) L Carbon Dioxide Level 26 MMOL/L (21-32) Anion Gap 14 mmol/L (5-15) Blood Urea Nitrogen 113 mg/dL (7-18) H Creatinine 10.5 MG/DL (0.55-1.30) H Estimat Glomerular Filtration Rate 5.0 mL/min (>60) Glucose Level 101 MG/DL (74-106) Calcium Level 7.8 MG/DL (8.5-10.1) L Clement Mcleod MD February 18, 2018 11:01
--- NOTE | 2018-02-18 11:16 | GI Progress Note ---
Assessment/Plan Problems: (1) Abnormal LFTs ICD Codes: R94.5 - Abnormal results of liver function studies SNOMED: 992473643 (2) Symptomatic anemia ICD Codes: D64.9 - Anemia, unspecified SNOMED: 206823143 (3) ESRD (end stage renal disease) on dialysis ICD Codes: N18.6 - End stage renal disease; Z99.2 - Dependence on renal dialysis SNOMED: 566280793 Status: stable Status Narrative Discussed with Dr. Matos. Assessment/Plan hx of EGD/colonoscopy 3 months ago per patient, cannot recall location. iron panel WNL OB stool negative fu nephro recs monitor H&H, prn transfusions ppi thiamine fu labs outpatient GI procedures Subjective Subjective denies abdominal pain had EGD/colonoscopy x3 months Objective Last 24 Hour Vital Signs Date Time Temp Pulse Resp B/P (MAP) Pulse Ox O2 Delivery O2 Flow Rate FiO2 02/18/18 10:00 75 20 147/46 99 Bi-pap 40 02/18/18 09:10 91 155/60 02/18/18 09:10 92 17 100 Full Face 40 02/18/18 09:00 72 19 150/45 96 Bi-pap 40 02/18/18 08:00 40 02/18/18 08:00 98.2 69 18 134/59 98 Bi-pap 40 98.2 02/18/18 08:00 71 02/18/18 07:12 116 21 96 Full Face 40 02/18/18 07:11 Bi-pap 40 02/18/18 07:11 96 Bi-pap 40 02/18/18 07:10 58 21 97 Bi-pap 40 02/18/18 07:00 58 20 134/42 92 Bi-pap 40 02/18/18 06:00 96 20 172/55 97 Bi-pap 40 02/18/18 05:38 151/82 02/18/18 05:38 151/82 02/18/18 05:16 91 25 96 Full Face 40 02/18/18 05:00 92 20 151/82 95 Bi-pap 40 02/18/18 04:10 88 Venturi Mask 40 02/18/18 04:00 40 02/18/18 04:00 56 02/18/18 04:00 97.9 56 22 123/60 98 Bi-pap 40 97.9 02/18/18 03:30 61 22 97 Full Face 40 02/18/18 03:00 57 25 137/33 99 Bi-pap 02/18/18 02:00 58 24 140/37 95 Bi-pap 02/18/18 01:30 64 30 95 Full Face 40 02/18/18 01:00 62 27 125/42 93 Bi-pap 02/18/18 00:00 61 25 110/42 93 Bi-pap 02/18/18 00:00 61 02/18/18 00:00 40 02/17/18 23:27 68 31 93 Facial 40 02/17/18 22:32 164/64 02/17/18 22:00 164/64 02/17/18 22:00 60 02/17/18 21:13 104 30 95 Facial 40 02/17/18 21:10 60 02/17/18 21:09 85 02/17/18 21:00 98.3 98 27 164/64 94 Bi-pap 98.3 02/17/18 20:00 98.0 150 28 146/81 94 Bi-pap 98.0 02/17/18 19:28 86 33 94 Facial 50 02/17/18 19:27 106 32 95 Bi-pap 50 02/17/18 19:26 104 30 92 Bi-pap 50 02/17/18 19:20 85 33 Bi-pap 60 02/17/18 19:19 Bi-pap 60 02/17/18 19:18 95 Bi-pap 60 02/17/18 16:00 97.6 96 28 158/84 97.6 02/17/18 14:43 97.6 02/17/18 13:46 Nasal Cannula 2.0 28 02/17/18 13:46 92 Venturi Mask 14.0 55 02/17/18 13:45 173/85 02/17/18 13:44 98.1 02/17/18 13:43 173/85 02/17/18 12:00 98.1 101 20 173/85 93 98.1 Intake and Output 02/17/18 02/18/18 19:00 07:00 Intake Total 360 ml 90 ml Output Total 0 ml Balance 360 ml 90 ml Intake Oral 360 ml 90 ml Output Urine Total 0 ml Laboratory Tests Test 02/17/18 18:37 02/17/18 23:07 02/18/18 04:00 02/18/18 10:30 Arterial Blood pH 7.479 (7.350-7.450) Arterial Blood Partial Pressure CO2 39.5 mmHg (35.0-45.0) Arterial Blood Partial Pressure O2 106.0 mmHg (75.0-100.0) H Arterial Blood HCO3 28.7 mmol/L (22.0-26.0) H Arterial Blood Oxygen Saturation 97.1 % (92.0-98.0) Arterial Blood Base Excess 4.8 Manuel Test Positive Troponin I 0.045 ng/mL (0.000-0.056) 0.068 ng/mL (0.000-0.056) Pending White Blood Count 9.4 K/UL (4.8-10.8) Red Blood Count 1.99 M/UL (4.70-6.10) L Hemoglobin 6.8 G/DL (14.2-18.0) *L Hematocrit 19.4 % (42.0-52.0) L Mean Corpuscular Volume 98 FL (80-99) Mean Corpuscular Hemoglobin 34.2 PG (27.0-31.0) H Mean Corpuscular Hemoglobin Concent 35.0 G/DL (32.0-36.0) Red Cell Distribution Width 16.8 % (11.6-14.8) H Platelet Count 130 K/UL (150-450) L Mean Platelet Volume 6.5 FL (6.5-10.1) Neutrophils (%) (Auto) % (45.0-75.0) Lymphocytes (%) (Auto) % (20.0-45.0) Monocytes (%) (Auto) % (1.0-10.0) Eosinophils (%) (Auto) % (0.0-3.0) Basophils (%) (Auto) % (0.0-2.0) Differential Total Cells Counted 100 Neutrophils % (Manual) 89 % (45-75) H Lymphocytes % (Manual) 8 % (20-45) L Monocytes % (Manual) 3 % (1-10) Eosinophils % (Manual) 0 % (0-3) Basophils % (Manual) 0 % (0-2) Band Neutrophils 0 % (0-8) Platelet Estimate Decreased L Platelet Morphology Normal Anisocytosis 1+ Prothrombin Time 20.9 SEC (9.30-11.50) H Prothromb Time International Ratio 2.0 (0.9-1.1) H Sodium Level 137 MMOL/L (136-145) Potassium Level 6.7 MMOL/L (3.5-5.1) *H Chloride Level 96 MMOL/L (98-107) L Carbon Dioxide Level 26 MMOL/L (21-32) Anion Gap 14 mmol/L (5-15) Blood Urea Nitrogen 113 mg/dL (7-18) H Creatinine 10.5 MG/DL (0.55-1.30) H Estimat Glomerular Filtration Rate 5.0 mL/min (>60) Glucose Level 101 MG/DL (74-106) Calcium Level 7.8 MG/DL (8.5-10.1) L Height (Feet): 5 Height (Inches): 7.00 Weight (Pounds): 143 General Appearance: WD/WN, no apparent distress, alert Cardiovascular: normal rate Respiratory/Chest: normal breath sounds, no respiratory distress Abdominal Exam: normal bowel sounds, non tender, soft Extremities: normal range of motion, non-tender Freya Aldana N.P. February 18, 2018 11:16
[2018-02-18] MEDS: oxyCODONE HCL/Acetaminophen 5/325mg ORAL PRN (14:22)
--- NOTE | 2018-02-18 14:32 | General Progress Note ---
Assessment/Plan Problem List: (1) Abnormal laboratory test result ICD Codes: R89.9 - Unspecified abnormal finding in specimens from other organs , systems and tissues SNOMED: 714710987 (2) ESRD (end stage renal disease) on dialysis ICD Codes: N18.6 - End stage renal disease; Z99.2 - Dependence on renal dialysis SNOMED: 329753895 (3) Hypertension, uncontrolled ICD Codes: I10 - Essential (primary) hypertension SNOMED: 21993744, 91198330 (4) Symptomatic anemia ICD Codes: D64.9 - Anemia, unspecified SNOMED: 892580581 (5) Acute hyperkalemia ICD Codes: E87.5 - Hyperkalemia SNOMED: 0734233 (6) DVT (deep venous thrombosis) ICD Codes: I82.409 - Acute embolism and thrombosis of unspecified deep veins of unspecified lower extremity SNOMED: 033410936 (7) SOB (shortness of breath) ICD Codes: R06.02 - Shortness of breath SNOMED: 184248114 Status: unchanged Assessment/Plan ot pt diet o2 pulm tx gi/heme f/u anticoag pulm cbc bmp am ltach eval Subjective Constitutional: Reports: weakness Allergies: Coded Allergies: No Known Allergies (Unverified , 02/02/18) All Systems: reviewed and negative except above Subjective o2mask dilysis in icu Objective Last 24 Hour Vital Signs Date Time Temp Pulse Resp B/P (MAP) Pulse Ox O2 Delivery O2 Flow Rate FiO2 02/18/18 14:22 97.8 02/18/18 14:00 110/54 02/18/18 14:00 110/54 02/18/18 13:39 78 15 100 Bi-pap 40 02/18/18 13:16 76 15 99 Bi-pap 40 02/18/18 13:16 76 15 99 Full Face 40 02/18/18 11:30 Bi-pap 7.0 02/18/18 11:30 97.8 85 20 149/54 Bi-pap 7.0 97.8 02/18/18 11:03 94 18 97 Full Face 40 02/18/18 10:00 75 20 147/46 99 Bi-pap 40 02/18/18 09:10 91 155/60 02/18/18 09:10 92 17 100 Full Face 40 02/18/18 09:00 72 19 150/45 96 Bi-pap 40 02/18/18 08:00 40 02/18/18 08:00 98.2 69 18 134/59 98 Bi-pap 40 98.2 02/18/18 08:00 71 02/18/18 07:20 60 20 98 Bi-pap 40 02/18/18 07:12 116 21 96 Full Face 40 02/18/18 07:11 Bi-pap 40 02/18/18 07:11 96 Bi-pap 40 02/18/18 07:10 58 21 97 Bi-pap 40 02/18/18 07:00 58 20 134/42 92 Bi-pap 40 02/18/18 06:00 96 20 172/55 97 Bi-pap 40 02/18/18 05:38 151/82 02/18/18 05:38 151/82 02/18/18 05:16 91 25 96 Full Face 40 02/18/18 05:00 92 20 151/82 95 Bi-pap 40 02/18/18 04:10 88 Venturi Mask 40 02/18/18 04:00 40 02/18/18 04:00 56 02/18/18 04:00 97.9 56 22 123/60 98 Bi-pap 40 97.9 02/18/18 03:30 61 22 97 Full Face 40 02/18/18 03:00 57 25 137/33 99 Bi-pap 02/18/18 02:00 58 24 140/37 95 Bi-pap 02/18/18 01:30 64 30 95 Full Face 40 02/18/18 01:00 62 27 125/42 93 Bi-pap 02/18/18 00:00 61 25 110/42 93 Bi-pap 02/18/18 00:00 61 02/18/18 00:00 40 02/17/18 23:27 68 31 93 Facial 40 02/17/18 22:32 164/64 02/17/18 22:00 164/64 02/17/18 22:00 60 02/17/18 21:13 104 30 95 Facial 40 02/17/18 21:10 60 02/17/18 21:09 85 02/17/18 21:00 98.3 98 27 164/64 94 Bi-pap 98.3 02/17/18 20:00 98.0 150 28 146/81 94 Bi-pap 98.0 02/17/18 19:28 86 33 94 Facial 50 02/17/18 19:27 106 32 95 Bi-pap 50 02/17/18 19:26 104 30 92 Bi-pap 50 02/17/18 19:20 85 33 Bi-pap 60 02/17/18 19:19 Bi-pap 60 02/17/18 19:18 95 Bi-pap 60 02/17/18 16:00 97.6 96 28 158/84 97.6 02/17/18 14:43 97.6 Intake and Output 02/17/18 02/18/18 19:00 07:00 Intake Total 360 ml 90 ml Output Total 0 ml Balance 360 ml 90 ml Intake Oral 360 ml 90 ml Output Urine Total 0 ml Laboratory Tests 02/17/18 18:37: Arterial Blood pH 7.479H, Arterial Blood Partial Pressure CO2 39.5, Arterial Blood Partial Pressure O2 106.0H, Arterial Blood HCO3 28.7H, Arterial Blood Oxygen Saturation 97.1, Arterial Blood Base Excess 4.8, Manuel Test Positive 02/17/18 23:07: Troponin I 0.045 02/18/18 04:00: Troponin I 0.068H, White Blood Count 9.4, Red Blood Count 1.99L, Hemoglobin 6.8* L, Hematocrit 19.4L, Mean Corpuscular Volume 98, Mean Corpuscular Hemoglobin 34.2H, Mean Corpuscular Hemoglobin Concent 35.0, Red Cell Distribution Width 16.8H, Platelet Count 130L, Mean Platelet Volume 6.5, Neutrophils (%) (Auto) , Lymphocytes (%) (Auto) , Monocytes (%) (Auto) , Eosinophils (%) (Auto) , Basophils (%) (Auto) , Differential Total Cells Counted 100, Neutrophils % ( Manual) 89H, Lymphocytes % (Manual) 8L, Monocytes % (Manual) 3, Eosinophils % ( Manual) 0, Basophils % (Manual) 0, Band Neutrophils 0, Platelet Estimate DecreasedL, Platelet Morphology Normal, Anisocytosis 1+, Prothrombin Time 20.9H , Prothromb Time International Ratio 2.0H, Sodium Level 137, Potassium Level 6.7 *H, Chloride Level 96L, Carbon Dioxide Level 26, Anion Gap 14, Blood Urea Nitrogen 113H, Creatinine 10.5H, Estimat Glomerular Filtration Rate 5.0, Glucose Level 101, Calcium Level 7.8L 02/18/18 10:30: Troponin I 0.070H Height (Feet): 5 Height (Inches): 7.00 Weight (Pounds): 143 General Appearance: lethargic EENT: normal ENT inspection Neck: normal alignment Cardiovascular: normal peripheral pulses, normal rate, regular rhythm Respiratory/Chest: chest wall non-tender, decreased breath sounds Abdomen: normal bowel sounds, non tender, soft Extremities: normal inspection Edema: no edema noted Arm (L), no edema noted Arm (R), no edema noted Leg (L), no edema noted Leg (R), no edema noted Pedal (L), no edema noted Pedal (R), no edema noted Generalized Neurologic: motor weakness Skin: normal pigmentation, warm/dry PEDRO HUTSON February 18, 2018 14:32
--- NOTE | 2018-02-18 15:09 | Nephrology Progress Note ---
Assessment/Plan Problem List: (1) ESRD (end stage renal disease) on dialysis (2) Acute hyperkalemia (3) Hypertension, uncontrolled (4) Left leg DVT (5) Anemia in chronic kidney disease (CKD) Assessment now in ICU with respiratory insufficiency ESRD, on admission missed dialysis . has high K on admission has fistula right arm Sever Anemia h/o Amyloidosis COPD Plan HD last 02/15 next 02/18 sandi with UF Transfusion as needed Kayexelate as needed BP control, meds adjusted has IVC filter Neg for pulm emboli- DC heparin Subjective ROS Limited/Unobtainable: Yes Objective Objective Last 24 Hour Vital Signs Date Time Temp Pulse Resp B/P (MAP) Pulse Ox O2 Delivery O2 Flow Rate FiO2 02/18/18 14:22 97.8 02/18/18 14:00 110/54 02/18/18 14:00 110/54 02/18/18 13:39 78 15 100 Bi-pap 40 02/18/18 13:16 76 15 99 Bi-pap 40 02/18/18 13:16 76 15 99 Full Face 40 02/18/18 11:30 Bi-pap 7.0 02/18/18 11:30 97.8 85 20 149/54 Bi-pap 7.0 97.8 02/18/18 11:03 94 18 97 Full Face 40 02/18/18 10:00 75 20 147/46 99 Bi-pap 40 02/18/18 09:10 91 155/60 02/18/18 09:10 92 17 100 Full Face 40 02/18/18 09:00 72 19 150/45 96 Bi-pap 40 02/18/18 08:00 40 02/18/18 08:00 98.2 69 18 134/59 98 Bi-pap 40 98.2 02/18/18 08:00 71 02/18/18 07:20 60 20 98 Bi-pap 40 02/18/18 07:12 116 21 96 Full Face 40 02/18/18 07:11 Bi-pap 40 02/18/18 07:11 96 Bi-pap 40 02/18/18 07:10 58 21 97 Bi-pap 40 02/18/18 07:00 58 20 134/42 92 Bi-pap 40 02/18/18 06:00 96 20 172/55 97 Bi-pap 40 02/18/18 05:38 151/82 02/18/18 05:38 151/82 02/18/18 05:16 91 25 96 Full Face 40 02/18/18 05:00 92 20 151/82 95 Bi-pap 40 02/18/18 04:10 88 Venturi Mask 40 02/18/18 04:00 40 02/18/18 04:00 56 02/18/18 04:00 97.9 56 22 123/60 98 Bi-pap 40 97.9 02/18/18 03:30 61 22 97 Full Face 40 02/18/18 03:00 57 25 137/33 99 Bi-pap 02/18/18 02:00 58 24 140/37 95 Bi-pap 02/18/18 01:30 64 30 95 Full Face 40 02/18/18 01:00 62 27 125/42 93 Bi-pap 02/18/18 00:00 61 25 110/42 93 Bi-pap 02/18/18 00:00 61 02/18/18 00:00 40 02/17/18 23:27 68 31 93 Facial 40 02/17/18 22:32 164/64 02/17/18 22:00 164/64 02/17/18 22:00 60 02/17/18 21:13 104 30 95 Facial 40 02/17/18 21:10 60 02/17/18 21:09 85 02/17/18 21:00 98.3 98 27 164/64 94 Bi-pap 98.3 02/17/18 20:00 98.0 150 28 146/81 94 Bi-pap 98.0 02/17/18 19:28 86 33 94 Facial 50 02/17/18 19:27 106 32 95 Bi-pap 50 02/17/18 19:26 104 30 92 Bi-pap 50 02/17/18 19:20 85 33 Bi-pap 60 02/17/18 19:19 Bi-pap 60 02/17/18 19:18 95 Bi-pap 60 02/17/18 16:00 97.6 96 28 158/84 97.6 Intake and Output 02/17/18 02/18/18 19:00 07:00 Intake Total 360 ml 90 ml Output Total 0 ml Balance 360 ml 90 ml Intake Oral 360 ml 90 ml Output Urine Total 0 ml Laboratory Tests 02/17/18 18:37: Arterial Blood pH 7.479H, Arterial Blood Partial Pressure CO2 39.5, Arterial Blood Partial Pressure O2 106.0H, Arterial Blood HCO3 28.7H, Arterial Blood Oxygen Saturation 97.1, Arterial Blood Base Excess 4.8, Manuel Test Positive 02/17/18 23:07: Troponin I 0.045 02/18/18 04:00: Troponin I 0.068H, White Blood Count 9.4, Red Blood Count 1.99L, Hemoglobin 6.8* L, Hematocrit 19.4L, Mean Corpuscular Volume 98, Mean Corpuscular Hemoglobin 34.2H, Mean Corpuscular Hemoglobin Concent 35.0, Red Cell Distribution Width 16.8H, Platelet Count 130L, Mean Platelet Volume 6.5, Neutrophils (%) (Auto) , Lymphocytes (%) (Auto) , Monocytes (%) (Auto) , Eosinophils (%) (Auto) , Basophils (%) (Auto) , Differential Total Cells Counted 100, Neutrophils % ( Manual) 89H, Lymphocytes % (Manual) 8L, Monocytes % (Manual) 3, Eosinophils % ( Manual) 0, Basophils % (Manual) 0, Band Neutrophils 0, Platelet Estimate DecreasedL, Platelet Morphology Normal, Anisocytosis 1+, Prothrombin Time 20.9H , Prothromb Time International Ratio 2.0H, Sodium Level 137, Potassium Level 6.7 *H, Chloride Level 96L, Carbon Dioxide Level 26, Anion Gap 14, Blood Urea Nitrogen 113H, Creatinine 10.5H, Estimat Glomerular Filtration Rate 5.0, Glucose Level 101, Calcium Level 7.8L 02/18/18 10:30: Troponin I 0.070H Height (Feet): 5 Height (Inches): 7.00 Weight (Pounds): 143 General Appearance: mild distress EENT: other - BIPAP Cardiovascular: tachycardia Respiratory/Chest: decreased breath sounds Abdomen: soft, distended Objective no change DALTON ROSENTHAL February 18, 2018 15:09
[2018-02-18] MEDS ORDERED: Warfarin Sodium 5mg ORAL SCH (17:00)
--- NOTE | 2018-02-18 19:32 | Cardiology Progress Note ---
Assessment/Plan Assessment/Plan 1. Hypertension. 2. End-stage renal disease, on hemodialysis. 3. Anemia. 4. History of GI bleed secondary to AVMs. 5. Acute deep venous thrombosis, left leg. 6. History of femoral neck fracture ctpa neg for pe has ivc filter inplace already dilaysis / uf today tele noted is anemic again not a candidate or chronic anticoag due to recurrent anemia dialysis pbc tx Subjective Cardiovascular: Denies: chest pain Respiratory: Reports: shortness of breath; Denies: cough Gastrointestinal/Abdominal: Denies: abdominal pain Genitourinary: Denies: burning Objective Last 24 Hour Vital Signs Date Time Temp Pulse Resp B/P (MAP) Pulse Ox O2 Delivery O2 Flow Rate FiO2 02/18/18 19:09 Venturi Mask 10.0 45 02/18/18 19:09 100 Venturi Mask 10.0 45 02/18/18 19:09 95 22 100 Venturi Mask 10.0 45 02/18/18 19:00 98 20 100 Venturi Mask 10.0 45 02/18/18 18:00 74 14 144/55 Venturi Mask 45 02/18/18 17:00 83 18 154/60 Venturi Mask 45 02/18/18 16:00 83 02/18/18 16:00 98.0 83 18 144/50 Venturi Mask 45 98.0 02/18/18 16:00 45 02/18/18 15:21 97.8 02/18/18 15:00 74 20 134/44 99 Venturi Mask 45 02/18/18 14:22 97.8 02/18/18 14:00 75 20 133/48 99 Venturi Mask 45 02/18/18 14:00 110/54 02/18/18 14:00 110/54 02/18/18 13:39 78 15 100 Bi-pap 40 02/18/18 13:16 76 15 99 Bi-pap 40 02/18/18 13:16 76 15 99 Full Face 40 02/18/18 13:00 77 20 139/46 99 Bi-pap 40 02/18/18 12:00 75 02/18/18 12:00 83 20 144/52 99 Bi-pap 40 02/18/18 12:00 40 02/18/18 11:30 Bi-pap 7.0 02/18/18 11:30 97.8 85 20 149/54 Bi-pap 7.0 97.8 02/18/18 11:03 94 18 97 Full Face 40 02/18/18 11:00 72 20 142/46 99 Bi-pap 40 02/18/18 10:00 75 20 147/46 99 Bi-pap 40 02/18/18 09:10 91 155/60 02/18/18 09:10 92 17 100 Full Face 40 02/18/18 09:00 72 19 150/45 96 Bi-pap 40 02/18/18 08:00 40 02/18/18 08:00 98.2 69 18 134/59 98 Bi-pap 40 98.2 02/18/18 08:00 71 02/18/18 07:20 60 20 98 Bi-pap 40 02/18/18 07:12 116 21 96 Full Face 40 02/18/18 07:11 Bi-pap 40 02/18/18 07:11 96 Bi-pap 40 02/18/18 07:10 58 21 97 Bi-pap 40 02/18/18 07:00 58 20 134/42 92 Bi-pap 40 02/18/18 06:00 96 20 172/55 97 Bi-pap 40 02/18/18 05:38 151/82 02/18/18 05:38 151/82 02/18/18 05:16 91 25 96 Full Face 40 02/18/18 05:00 92 20 151/82 95 Bi-pap 40 02/18/18 04:10 88 Venturi Mask 40 02/18/18 04:00 40 02/18/18 04:00 56 02/18/18 04:00 97.9 56 22 123/60 98 Bi-pap 40 97.9 02/18/18 03:30 61 22 97 Full Face 40 02/18/18 03:00 57 25 137/33 99 Bi-pap 02/18/18 02:00 58 24 140/37 95 Bi-pap 02/18/18 01:30 64 30 95 Full Face 40 02/18/18 01:00 62 27 125/42 93 Bi-pap 02/18/18 00:00 61 25 110/42 93 Bi-pap 02/18/18 00:00 61 02/18/18 00:00 40 02/17/18 23:27 68 31 93 Facial 40 02/17/18 22:32 164/64 02/17/18 22:00 164/64 02/17/18 22:00 60 02/17/18 21:13 104 30 95 Facial 40 02/17/18 21:10 60 02/17/18 21:09 85 02/17/18 21:00 98.3 98 27 164/64 94 Bi-pap 98.3 02/17/18 20:00 98.0 150 28 146/81 94 Bi-pap 98.0 General Appearance: alert Neck: no JVD Respiratory/Chest: crackles/rales - right Abdomen: normal bowel sounds, non tender, soft Extremities: no swelling Intake and Output 02/17/18 02/18/18 19:00 07:00 Intake Total 360 ml 90 ml Output Total 0 ml Balance 360 ml 90 ml Intake Oral 360 ml 90 ml Output Urine Total 0 ml Laboratory Tests Test 02/17/18 23:07 02/18/18 04:00 02/18/18 10:30 02/18/18 15:50 Troponin I 0.045 ng/mL (0.000-0.056) 0.068 ng/mL (0.000-0.056) 0.070 ng/mL (0.000-0.056) 0.055 ng/mL (0.000-0.056) White Blood Count 9.4 K/UL (4.8-10.8) Red Blood Count 1.99 M/UL (4.70-6.10) L Hemoglobin 6.8 G/DL (14.2-18.0) *L Hematocrit 19.4 % (42.0-52.0) L Mean Corpuscular Volume 98 FL (80-99) Mean Corpuscular Hemoglobin 34.2 PG (27.0-31.0) H Mean Corpuscular Hemoglobin Concent 35.0 G/DL (32.0-36.0) Red Cell Distribution Width 16.8 % (11.6-14.8) H Platelet Count 130 K/UL (150-450) L Mean Platelet Volume 6.5 FL (6.5-10.1) Neutrophils (%) (Auto) % (45.0-75.0) Lymphocytes (%) (Auto) % (20.0-45.0) Monocytes (%) (Auto) % (1.0-10.0) Eosinophils (%) (Auto) % (0.0-3.0) Basophils (%) (Auto) % (0.0-2.0) Differential Total Cells Counted 100 Neutrophils % (Manual) 89 % (45-75) H Lymphocytes % (Manual) 8 % (20-45) L Monocytes % (Manual) 3 % (1-10) Eosinophils % (Manual) 0 % (0-3) Basophils % (Manual) 0 % (0-2) Band Neutrophils 0 % (0-8) Platelet Estimate Decreased L Platelet Morphology Normal Anisocytosis 1+ Prothrombin Time 20.9 SEC (9.30-11.50) H Prothromb Time International Ratio 2.0 (0.9-1.1) H Sodium Level 137 MMOL/L (136-145) Potassium Level 6.7 MMOL/L (3.5-5.1) *H Chloride Level 96 MMOL/L (98-107) L Carbon Dioxide Level 26 MMOL/L (21-32) Anion Gap 14 mmol/L (5-15) Blood Urea Nitrogen 113 mg/dL (7-18) H Creatinine 10.5 MG/DL (0.55-1.30) H Estimat Glomerular Filtration Rate 5.0 mL/min (>60) Glucose Level 101 MG/DL (74-106) Calcium Level 7.8 MG/DL (8.5-10.1) L C-Reactive Protein, Quantitative > 70.0 mg/dL (0.00-0.90) H JACINTO CORONA February 18, 2018 19:32
[2018-02-18] MEDS ORDERED: Dyna-Hex 2% Top Sol 2oz TOPIC SCH (20:00)
[2018-02-18] MEDS ORDERED: Epogen (for ESRD on dialysis) SUBQ SCH ×2 (21:00)
[2018-02-19] VITALS: BP 155/74
--- NOTE | 2018-02-19 00:15 | Progress Note ---
DATE: 02/18/2018 NOTE: POOR AUDIO SUBJECTIVE: This is a male patient, who is 63-year-old, who came in ____ GI bleeding, but he still has a lot of agitation, lot of mood lability, irritability, and restless and his cognition has declined below baseline secondary to the stress of his medical illness. mood lability. MENTAL STATUS EXAMINATION: The patient is a 63-year-old male. Appearance is disheveled, irritable, and agitated. Affect, guarded and restricted. Intellect poor. Mood is depressed and anxious. Motor activity, psychomotor agitation. Attention span is poor. Oriented x2. Speech is pressured. Thought process, disorganized and illogical. Thought content, auditory hallucinations and paranoid delusions. Insight and judgment is poor. DIAGNOSIS: Major depression with psychotic features, rule out paranoid schizophrenia, rule out dementia with psychosis. PLAN: Plan for this patient is to treat him with Seroquel 25 mg at bedtime. An 18 to 20 minutes of supportive psychotherapy provided. Chart reviewed. Discussed with staff. Seen and assessed at the bedside. Rony Corral M.D. DR: PAM JOB#: [id number] CC:
[2018-02-19 04:00] VITALS: BP 146/74
[2018-02-19 04:31] LABS: HEMATOCRIT 22.1 % (42.0-52.0); HEMOGLOBIN 8.2 G/DL (14.2-18.0); MEAN CORPUSCULAR VOLUME 92 FL (80-99); PLATELET COUNT 85 K/UL (150-450); RED BLOOD COUNT 2.39 M/UL (4.70-6.10); RED CELL DISTRIBUTION WIDTH 16.7 % (11.6-14.8); WHITE BLOOD COUNT 5.1 K/UL (4.8-10.8)
[2018-02-19 04:49] LABS: INR 2.7 (0.9-1.1)
[2018-02-19 04:51] LABS: AMMONIA 32 umol/L (11-32)
[2018-02-19] MEDS: HydrALAZINE 25mg tab ORAL SCH ×3 (05:13→21:14)
[2018-02-19 05:58] LABS: ALANINE AMINOTRANSFERASE 48 U/L (12-78); ALBUMIN 2.8 G/DL (3.4-5.0); ALBUMIN/GLOBULIN RATIO 0.7 (1.0-2.7); ALKALINE PHOSPHATASE 328 U/L (46-116); ANION GAP 11 mmol/L (5-15); ASPARTATE AMINO TRANSFERASE 58 U/L (15-37); BILIRUBIN,TOTAL 1.5 MG/DL (0.2-1.0); BLOOD UREA NITROGEN 75 mg/dL (7-18); CARBON DIOXIDE 35 MMOL/L (21-32); CHLORIDE 98 MMOL/L (98-107); CREATININE 7.3 MG/DL (0.55-1.30); PHOSPHORUS 8.5 MG/DL (2.5-4.9); SODIUM 144 MMOL/L (136-145)
[2018-02-19 06:01] LABS: BILIRUBIN,DIRECT 0.5 MG/DL (0.0-0.3)
[2018-02-19] MEDS: Levalbuterol Inh UD 1.25mg/0.5ml HHN SCH ×3 (07:56→19:29)
[2018-02-19 08:00] VITALS: BP 126/56
[2018-02-19] MEDS ORDERED: LORazepam 1mg tab ORAL PRN (08:00)
[2018-02-19] MEDS ORDERED: oxyCODONE HCL/Acetaminophen 5/325mg ORAL PRN (08:00)
[2018-02-19] MEDS ORDERED: Haloperidol 5mg/ml Inj IM PRN (08:00)
--- NOTE | 2018-02-19 08:50 | General Progress Note ---
Assessment/Plan Assessment/Plan (1) Right hip pain (2) Right hip Fracture (3) S/p ORIF of right hip Pt will continued on Percocet HOLD OPIOIDS FOR OVERSEDATION OR SBP<90 OR DBP<60 OR O2SAT<92% OR RR<12 D/w Dr. Childers he concurred. Subjective Date patient seen: February 19, 2018 Time patient seen: 08:00 - am Constitutional: Reports: weakness HEENT: Reports: no symptoms Cardiovascular: Reports: no symptoms Respiratory: Reports: shortness of breath Gastrointestinal/Abdominal: Reports: no symptoms Genitourinary: Reports: no symptoms Neurologic/Psychiatric: Reports: weakness Endocrine: Reports: no symptoms Hematologic/Lymphatic: Reports: no symptoms Allergies: Coded Allergies: No Known Allergies (Unverified , 02/02/18) Subjective Patient transferred to [facility] no signs of pain or distress. No ,longer on bipap now on venturi 45%. Objective Last 24 Hour Vital Signs Date Time Temp Pulse Resp B/P (MAP) Pulse Ox O2 Delivery O2 Flow Rate FiO2 02/19/18 07:59 100 Venturi Mask 10.0 45 02/19/18 07:59 Venturi Mask 10.0 45 02/19/18 07:58 70 18 100 Venturi Mask 10.0 45 02/19/18 07:50 67 18 96 Venturi Mask 10.0 45 02/19/18 05:13 146/74 02/19/18 05:13 146/74 02/19/18 04:00 97.3 71 22 146/74 99 Venturi Mask 10.0 45 97.3 02/19/18 04:00 72 02/19/18 00:00 97.4 73 22 155/74 98 Venturi Mask 10.0 45 97.4 02/19/18 00:00 75 02/18/18 21:41 137/60 02/18/18 21:41 137/60 02/18/18 20:00 78 02/18/18 20:00 97.5 79 21 137/60 94 Venturi Mask 10.0 45 97.5 02/18/18 19:09 Venturi Mask 10.0 45 02/18/18 19:09 100 Venturi Mask 10.0 45 02/18/18 19:09 95 22 100 Venturi Mask 10.0 45 02/18/18 19:00 98 20 100 Venturi Mask 10.0 45 02/18/18 18:00 74 14 144/55 Venturi Mask 45 02/18/18 17:00 83 18 154/60 Venturi Mask 45 02/18/18 16:00 83 02/18/18 16:00 98.0 83 18 144/50 Venturi Mask 45 98.0 02/18/18 16:00 45 02/18/18 15:21 97.8 02/18/18 15:00 74 20 134/44 99 Venturi Mask 45 02/18/18 14:22 97.8 02/18/18 14:00 75 20 133/48 99 Venturi Mask 45 02/18/18 14:00 110/54 02/18/18 14:00 110/54 02/18/18 13:39 78 15 100 Bi-pap 40 02/18/18 13:16 76 15 99 Bi-pap 40 02/18/18 13:16 76 15 99 Full Face 40 02/18/18 13:00 77 20 139/46 99 Bi-pap 40 02/18/18 12:00 75 02/18/18 12:00 83 20 144/52 99 Bi-pap 40 02/18/18 12:00 40 02/18/18 11:30 Bi-pap 7.0 02/18/18 11:30 97.8 85 20 149/54 Bi-pap 7.0 97.8 02/18/18 11:03 94 18 97 Full Face 40 02/18/18 11:00 72 20 142/46 99 Bi-pap 40 02/18/18 10:00 75 20 147/46 99 Bi-pap 40 02/18/18 09:10 91 155/60 02/18/18 09:10 92 17 100 Full Face 40 02/18/18 09:00 72 19 150/45 96 Bi-pap 40 Intake and Output 02/18/18 02/19/18 19:00 07:00 Intake Total 100 ml 50 ml Output Total 3000 ml 0 ml Balance -2900 ml 50 ml Intake Oral 100 ml 50 ml Output Urine Total 0 ml 0 ml Hemodialysis UF 3000 ml Laboratory Tests 02/18/18 10:30: Troponin I 0.070H 02/18/18 15:50: Troponin I 0.055, C-Reactive Protein, Quantitative > 70.0H 02/19/18 03:30: Troponin I 0.043, White Blood Count 5.1, Red Blood Count 2.39L, Hemoglobin 8.2L , Hematocrit 22.1L, Mean Corpuscular Volume 92, Mean Corpuscular Hemoglobin 34.2H, Mean Corpuscular Hemoglobin Concent 36.9H, Red Cell Distribution Width 16.7H, Platelet Count 85L, Mean Platelet Volume 7.0, Neutrophils (%) (Auto) , Lymphocytes (%) (Auto) , Monocytes (%) (Auto) , Eosinophils (%) (Auto) , Basophils (%) (Auto) , Differential Total Cells Counted 100, Neutrophils % ( Manual) 70, Lymphocytes % (Manual) 13L, Monocytes % (Manual) 11H, Eosinophils % (Manual) 4H, Basophils % (Manual) 1, Band Neutrophils 1, Platelet Estimate DecreasedL, Platelet Morphology Normal, Polychromasia 1+, Anisocytosis 1+, Prothrombin Time 28.8H, Prothromb Time International Ratio 2.7H, Sodium Level 144, Potassium Level 4.0, Chloride Level 98, Carbon Dioxide Level 35H, Anion Gap 11, Blood Urea Nitrogen 75H, Creatinine 7.3H, Estimat Glomerular Filtration Rate 7.6, Glucose Level 110H, Calcium Level 8.0L, Phosphorus Level 8.5H, Magnesium Level 2.1, Total Bilirubin 1.5H, Direct Bilirubin 0.5H, Aspartate Amino Transf (AST/SGOT) 58H, Alanine Aminotransferase (ALT/SGPT) 48, Alkaline Phosphatase 328H, Ammonia 32, Pro-B-Type Natriuretic Peptide 96034B, Total Protein 7.0, Albumin 2.8L, Globulin 4.2, Albumin/Globulin Ratio 0.7L Height (Feet): 5 Height (Inches): 7.00 Weight (Pounds): 123 Objective Neck: non-tender, normal alignment, supple, normal inspection Respiratory/Chest: decreased breath sounds Cardiovascular/Chest: normal rate, regular rhythm Abdomen: non tender, soft, no organomegaly Extremities: inflammation - right hip tenderness to palpation Skin Exam: normal pigmentation, warm/dry KANWAL CURRAN N. P.AJah February 19, 2018 08:50
--- NOTE | 2018-02-19 09:47 | General Progress Note ---
Assessment/Plan Assessment/Plan IMPRESSION: 1. Acute deep venous thrombosis, left lower extremities. 2. Status post inferior vena cava filter placement. 3. Anticoagulation with Coumadin. 4. Anticoagulation with IV heparin. 5. History of gastrointestinal bleed. 6. Anemia of kidney disease. --> On Hemodialysis by group insurance specialist 7. Anemia of chronic disease. 8. Decreased hemoglobin and hematocrit, rule out gastrointestinal bleed. 9. End-stage renal disease, hemodialysis dependent. 10. History of femoral neck fracture. 11. Hypertension. 12. Acute respiratory failure. 13. Pulmonary edema. 14. Malnutrition. 15. Failure to thrive. 16. Chronic obstructive pulmonary disease. 17. History of polysubstance abuse. 18. Benign prostatic hypertrophy. 19. Fluid overload. 20. History of hepatitis C. 21. History of posttraumatic stress disorder. 22. History of smoking. RECOMMENDATIONS: 1. Watch count. 2. Watch coagulopathy. 3. PRBC transfusion p.r.n. basis. 4. Heparin IV. 5. Coumadin p.o. 6. Procrit subcutaneously. 7. Iron IV. 8. Cardiology followup. 9. Pulmonary followup. 10. Skin care. 11. Nutrition. 12. Discussed with the staff. Subjective Date patient seen: February 18, 2018 Allergies: Coded Allergies: No Known Allergies (Unverified , 02/02/18) All Systems: reviewed and negative except above Subjective Pt is in bed, a/ox3. With Venturi 45%, no signs of distress. Objective Last 24 Hour Vital Signs Date Time Temp Pulse Resp B/P (MAP) Pulse Ox O2 Delivery O2 Flow Rate FiO2 02/19/18 08:00 97.4 69 19 126/56 96 Venturi Mask 10.0 45 97.4 02/19/18 07:59 100 Venturi Mask 10.0 45 02/19/18 07:59 Venturi Mask 10.0 45 02/19/18 07:58 70 18 100 Venturi Mask 10.0 45 02/19/18 07:50 67 18 96 Venturi Mask 10.0 45 02/19/18 05:13 146/74 02/19/18 05:13 146/74 02/19/18 04:00 97.3 71 22 146/74 99 Venturi Mask 10.0 45 97.3 02/19/18 04:00 72 02/19/18 00:00 97.4 73 22 155/74 98 Venturi Mask 10.0 45 97.4 02/19/18 00:00 75 02/18/18 21:41 137/60 02/18/18 21:41 137/60 02/18/18 20:00 78 02/18/18 20:00 97.5 79 21 137/60 94 Venturi Mask 10.0 45 97.5 02/18/18 19:09 Venturi Mask 10.0 45 02/18/18 19:09 100 Venturi Mask 10.0 45 02/18/18 19:09 95 22 100 Venturi Mask 10.0 45 02/18/18 19:00 98 20 100 Venturi Mask 10.0 45 02/18/18 18:00 74 14 144/55 Venturi Mask 45 02/18/18 17:00 83 18 154/60 Venturi Mask 45 02/18/18 16:00 83 02/18/18 16:00 98.0 83 18 144/50 Venturi Mask 45 98.0 02/18/18 16:00 45 02/18/18 15:21 97.8 02/18/18 15:00 74 20 134/44 99 Venturi Mask 45 02/18/18 14:22 97.8 02/18/18 14:00 75 20 133/48 99 Venturi Mask 45 02/18/18 14:00 110/54 02/18/18 14:00 110/54 02/18/18 13:39 78 15 100 Bi-pap 40 02/18/18 13:16 76 15 99 Bi-pap 40 02/18/18 13:16 76 15 99 Full Face 40 02/18/18 13:00 77 20 139/46 99 Bi-pap 40 02/18/18 12:00 75 02/18/18 12:00 83 20 144/52 99 Bi-pap 40 02/18/18 12:00 40 02/18/18 11:30 Bi-pap 7.0 02/18/18 11:30 97.8 85 20 149/54 Bi-pap 7.0 97.8 02/18/18 11:03 94 18 97 Full Face 40 02/18/18 11:00 72 20 142/46 99 Bi-pap 40 02/18/18 10:00 75 20 147/46 99 Bi-pap 40 Intake and Output 02/18/18 02/19/18 19:00 07:00 Intake Total 100 ml 50 ml Output Total 3000 ml 0 ml Balance -2900 ml 50 ml Intake Oral 100 ml 50 ml Output Urine Total 0 ml 0 ml Hemodialysis UF 3000 ml Laboratory Tests 02/18/18 10:30: Troponin I 0.070H 02/18/18 15:50: Troponin I 0.055, C-Reactive Protein, Quantitative > 70.0H 02/19/18 03:30: Troponin I 0.043, White Blood Count 5.1, Red Blood Count 2.39L, Hemoglobin 8.2L , Hematocrit 22.1L, Mean Corpuscular Volume 92, Mean Corpuscular Hemoglobin 34.2H, Mean Corpuscular Hemoglobin Concent 36.9H, Red Cell Distribution Width 16.7H, Platelet Count 85L, Mean Platelet Volume 7.0, Neutrophils (%) (Auto) , Lymphocytes (%) (Auto) , Monocytes (%) (Auto) , Eosinophils (%) (Auto) , Basophils (%) (Auto) , Differential Total Cells Counted 100, Neutrophils % ( Manual) 70, Lymphocytes % (Manual) 13L, Monocytes % (Manual) 11H, Eosinophils % (Manual) 4H, Basophils % (Manual) 1, Band Neutrophils 1, Platelet Estimate DecreasedL, Platelet Morphology Normal, Polychromasia 1+, Anisocytosis 1+, Prothrombin Time 28.8H, Prothromb Time International Ratio 2.7H, Sodium Level 144, Potassium Level 4.0, Chloride Level 98, Carbon Dioxide Level 35H, Anion Gap 11, Blood Urea Nitrogen 75H, Creatinine 7.3H, Estimat Glomerular Filtration Rate 7.6, Glucose Level 110H, Calcium Level 8.0L, Phosphorus Level 8.5H, Magnesium Level 2.1, Total Bilirubin 1.5H, Direct Bilirubin 0.5H, Aspartate Amino Transf (AST/SGOT) 58H, Alanine Aminotransferase (ALT/SGPT) 48, Alkaline Phosphatase 328H, Ammonia 32, Pro-B-Type Natriuretic Peptide 48831D, Total Protein 7.0, Albumin 2.8L, Globulin 4.2, Albumin/Globulin Ratio 0.7L Height (Feet): 5 Height (Inches): 7.00 Weight (Pounds): 123 General Appearance: no apparent distress Tristen Lewis MD February 19, 2018 09:47
--- NOTE | 2018-02-19 10:27 | Diagnostic Imaging Report ---
Indication: Dyspnea Comparison: 02/17/2018 A single view chest radiograph was obtained. Findings: Suggestion of a loculated right pleural effusion again noted. Interstitial edema likely present although slightly improved. Heart size is a normal currently. Bones are osteopenic. IMPRESSION: Improved CHF. Mild CHF may be present currently. Loculated right pleural effusion
--- NOTE | 2018-02-19 10:28 | Pulmonology Progress Note ---
Assessment/Plan Problems: (1) Acute respiratory failure (2) ESRF (end stage renal failure) (3) Pulmonary edema (4) DVT (deep venous thrombosis) Assessment/Plan on venturi mask cxr from 02/19 reviewed HD by admissions assistant respiratory treatment titrate fio2 to sat of 92% s/p one unit of blood yesterday check Hemoglobin, remains around 7 on coumadin, INR is 2.7, on Epogen and Folic acid as well all meds reviewed Subjective ROS Limited/Unobtainable: No Constitutional: Reports: no symptoms HEENT: Repors: no symptoms Respiratory: Reports: no symptoms Allergies: Coded Allergies: No Known Allergies (Unverified , 02/02/18) Objective Last 24 Hour Vital Signs Date Time Temp Pulse Resp B/P (MAP) Pulse Ox O2 Delivery O2 Flow Rate FiO2 02/19/18 09:59 69 126/56 02/19/18 08:00 97.4 69 19 126/56 96 Venturi Mask 10.0 45 97.4 02/19/18 07:59 100 Venturi Mask 10.0 45 02/19/18 07:59 Venturi Mask 10.0 45 02/19/18 07:58 70 18 100 Venturi Mask 10.0 45 02/19/18 07:50 67 18 96 Venturi Mask 10.0 45 02/19/18 05:13 146/74 02/19/18 05:13 146/74 02/19/18 04:00 97.3 71 22 146/74 99 Venturi Mask 10.0 45 97.3 02/19/18 04:00 72 02/19/18 00:00 97.4 73 22 155/74 98 Venturi Mask 10.0 45 97.4 02/19/18 00:00 75 02/18/18 21:41 137/60 02/18/18 21:41 137/60 02/18/18 20:00 78 02/18/18 20:00 97.5 79 21 137/60 94 Venturi Mask 10.0 45 97.5 02/18/18 19:09 Venturi Mask 10.0 45 02/18/18 19:09 100 Venturi Mask 10.0 45 02/18/18 19:09 95 22 100 Venturi Mask 10.0 45 02/18/18 19:00 98 20 100 Venturi Mask 10.0 45 02/18/18 18:00 74 14 144/55 Venturi Mask 45 02/18/18 17:00 83 18 154/60 Venturi Mask 45 02/18/18 16:00 83 02/18/18 16:00 98.0 83 18 144/50 Venturi Mask 45 98.0 02/18/18 16:00 45 02/18/18 15:21 97.8 02/18/18 15:00 74 20 134/44 99 Venturi Mask 45 02/18/18 14:22 97.8 02/18/18 14:00 75 20 133/48 99 Venturi Mask 45 02/18/18 14:00 110/54 02/18/18 14:00 110/54 02/18/18 13:39 78 15 100 Bi-pap 40 02/18/18 13:16 76 15 99 Bi-pap 40 02/18/18 13:16 76 15 99 Full Face 40 02/18/18 13:00 77 20 139/46 99 Bi-pap 40 02/18/18 12:00 75 02/18/18 12:00 83 20 144/52 99 Bi-pap 40 02/18/18 12:00 40 02/18/18 11:30 Bi-pap 7.0 02/18/18 11:30 97.8 85 20 149/54 Bi-pap 7.0 97.8 02/18/18 11:03 94 18 97 Full Face 40 02/18/18 11:00 72 20 142/46 99 Bi-pap 40 Intake and Output 02/18/18 02/19/18 19:00 07:00 Intake Total 100 ml 50 ml Output Total 3000 ml 0 ml Balance -2900 ml 50 ml Intake Oral 100 ml 50 ml Output Urine Total 0 ml 0 ml Hemodialysis UF 3000 ml Objective General Appearance: WD/WN HEENT: normocephalic, atraumatic Respiratory/Chest: chest wall non-tender, lungs clear Cardiovascular: normal peripheral pulses, normal rate, regular rhythm Abdomen: normal bowel sounds, soft, non tender, no organomegaly, non distended Extremities: no cyanosis, no clubbing, no edema Skin: no rash, no lesions Neurologic/Psychiatric: java portal developer II-XII grossly normal HEENT: normocephalic, atraumatic Respiratory/Chest: chest wall non-tender, lungs clear Cardiovascular: normal peripheral pulses, normal rate Abdomen: normal bowel sounds, soft, non tender Genitourinary: normal external genitalia Extremities: no cyanosis Skin: no rash Neurologic/Psychiatric: java portal developer II-XII grossly normal, no motor/sensory deficits Lymphatic: no neck adenopathy Laboratory Tests 02/18/18 10:30: Troponin I 0.070H 02/18/18 15:50: Troponin I 0.055, C-Reactive Protein, Quantitative > 70.0H 02/19/18 03:30: Troponin I 0.043, White Blood Count 5.1, Red Blood Count 2.39L, Hemoglobin 8.2L , Hematocrit 22.1L, Mean Corpuscular Volume 92, Mean Corpuscular Hemoglobin 34.2H, Mean Corpuscular Hemoglobin Concent 36.9H, Red Cell Distribution Width 16.7H, Platelet Count 85L, Mean Platelet Volume 7.0, Neutrophils (%) (Auto) , Lymphocytes (%) (Auto) , Monocytes (%) (Auto) , Eosinophils (%) (Auto) , Basophils (%) (Auto) , Differential Total Cells Counted 100, Neutrophils % ( Manual) 70, Lymphocytes % (Manual) 13L, Monocytes % (Manual) 11H, Eosinophils % (Manual) 4H, Basophils % (Manual) 1, Band Neutrophils 1, Platelet Estimate DecreasedL, Platelet Morphology Normal, Polychromasia 1+, Anisocytosis 1+, Prothrombin Time 28.8H, Prothromb Time International Ratio 2.7H, Sodium Level 144, Potassium Level 4.0, Chloride Level 98, Carbon Dioxide Level 35H, Anion Gap 11, Blood Urea Nitrogen 75H, Creatinine 7.3H, Estimat Glomerular Filtration Rate 7.6, Glucose Level 110H, Calcium Level 8.0L, Phosphorus Level 8.5H, Magnesium Level 2.1, Total Bilirubin 1.5H, Direct Bilirubin 0.5H, Aspartate Amino Transf (AST/SGOT) 58H, Alanine Aminotransferase (ALT/SGPT) 48, Alkaline Phosphatase 328H, Ammonia 32, Pro-B-Type Natriuretic Peptide 07519W, Total Protein 7.0, Albumin 2.8L, Globulin 4.2, Albumin/Globulin Ratio 0.7L 02/19/18 09:30: Arterial Blood pH 7.467H, Arterial Blood Partial Pressure CO2 50.4H, Arterial Blood Partial Pressure O2 83.9, Arterial Blood HCO3 35.6H, Arterial Blood Oxygen Saturation 94.9, Arterial Blood Base Excess 10.7, Manuel Test Positive Current Medications Medications (Trade) Dose Ordered Sig/Blessing Route PRN Reason Start Time Stop Time Status Last Admin Dose Admin Acetaminophen (Tylenol) 500 mg 3XW PRN ORAL WITH DIALYSIS 02/20/18 09:00 03/10/18 17:59 Amlodipine Besylate (Norvasc) 10 mg DAILY ORAL 02/19/18 09:00 03/05/18 11:14 02/19/18 09:59 Clonidine HCl (Catapres Tab) 0.1 mg EVERY 8 HOURS ORAL 02/19/18 14:00 03/05/18 13:59 Clonidine HCl (Catapres Tab) 0.1 mg Q4H PRN ORAL SBP > 160 mmHg 02/19/18 08:00 03/04/18 07:59 Diphenhydramine HCl (Benadryl) 50 mg Q6H PRN ORAL Itching 02/19/18 08:00 03/15/18 07:59 Epoetin Alfonzo (Procrit (for ESRD on dialysis)) 10,000 units SUN-SUN-SUN SUBQ 02/20/18 21:00 03/20/18 20:59 Folic Acid (Folate) 1 mg DAILY ORAL 02/19/18 09:00 03/06/18 08:59 02/19/18 10:00 Gabapentin (Neurontin) 300 mg THREE TIMES A DAY ORAL 02/19/18 09:00 03/07/18 08:59 02/19/18 10:00 Haloperidol Lactate (Haldol) 5 mg Q4H PRN IM AGITATION 02/19/18 08:00 03/15/18 07:59 Hydralazine HCl (Apresoline) 25 mg Q8HR ORAL 02/19/18 14:00 03/05/18 12:59 Lansoprazole (Prevacid) 30 mg DAILY ORAL 02/19/18 09:00 03/11/18 10:59 02/19/18 10:00 Levalbuterol HCl (Xopenex) 1.25 mg TIDRT HHN 02/19/18 08:00 02/22/18 07:59 02/19/18 07:56 Lorazepam (Ativan) 1 mg Q2H PRN ORAL For Seizures 02/19/18 08:00 02/21/18 07:59 Nicotine (Nicoderm) 1 patch Q24H TDERMAL 02/19/18 10:00 03/20/18 09:59 02/19/18 10:00 Oxycodone/ Acetaminophen (Percocet 5-325) 1 tab Q4H PRN ORAL Severe Pain (Pain Scale 7-10) 02/19/18 08:00 02/20/18 07:59 Prochlorperazine (Compazine) 10 mg Q6H PRN IVP Nausea & Vomiting 02/19/18 08:00 03/09/18 07:59 Quetiapine Fumarate (SEROquel) 25 mg QHS ORAL 02/19/18 21:00 03/07/18 20:59 Warfarin Sodium (Coumadin per pharmacy) 1 ea DAILY PRN MISC Per rx protocol 02/19/18 09:00 03/10/18 17:59 Warfarin Sodium (Coumadin) 2 mg COUMADIN ORAL 02/19/18 17:00 02/19/18 18:00 Zolpidem Tartrate (Ambien) 5 mg HSPRN PRN ORAL Insomnia 02/19/18 21:00 02/20/18 20:59 Clement Mcleod MD February 19, 2018 10:28
[2018-02-19 12:00] VITALS: BP 118/62
--- NOTE | 2018-02-19 13:17 | GI Progress Note ---
Assessment/Plan Problems: (1) Abnormal LFTs ICD Codes: R94.5 - Abnormal results of liver function studies SNOMED: 245708511 (2) Symptomatic anemia ICD Codes: D64.9 - Anemia, unspecified SNOMED: 247838334 (3) ESRD (end stage renal disease) on dialysis ICD Codes: N18.6 - End stage renal disease; Z99.2 - Dependence on renal dialysis SNOMED: 399353074 Status: unchanged Status Narrative Discussed with Dr. Matos. Assessment/Plan hx of EGD/colonoscopy 3 months ago per patient, cannot recall location. iron panel WNL OB stool negative fu nephro recs monitor H&H, prn transfusions ppi thiamine fu labs outpatient GI procedures The patient was seen and examined at bedside and all new and available data was reviewed in the patients chart. I agree with the above findings, impression and plan. (Patient seen earlier today. Signature stamp does not reflect patient encounter time.). - Tushar Matos MD Subjective Subjective denies abdominal pain had EGD/colonoscopy x3 months Objective Last 24 Hour Vital Signs Date Time Temp Pulse Resp B/P (MAP) Pulse Ox O2 Delivery O2 Flow Rate FiO2 02/19/18 13:10 74 18 96 Venturi Mask 10.0 45 02/19/18 12:34 97.4 02/19/18 09:59 69 126/56 02/19/18 08:00 97.4 69 19 126/56 96 Venturi Mask 10.0 45 97.4 02/19/18 07:59 100 Venturi Mask 10.0 45 02/19/18 07:59 Venturi Mask 10.0 45 02/19/18 07:58 70 18 100 Venturi Mask 10.0 45 02/19/18 07:50 67 18 96 Venturi Mask 10.0 45 02/19/18 07:43 72 02/19/18 05:13 146/74 02/19/18 05:13 146/74 02/19/18 04:00 97.3 71 22 146/74 99 Venturi Mask 10.0 45 97.3 02/19/18 04:00 72 02/19/18 00:00 97.4 73 22 155/74 98 Venturi Mask 10.0 45 97.4 02/19/18 00:00 75 02/18/18 21:41 137/60 02/18/18 21:41 137/60 02/18/18 20:00 78 02/18/18 20:00 97.5 79 21 137/60 94 Venturi Mask 10.0 45 97.5 02/18/18 19:09 Venturi Mask 10.0 45 02/18/18 19:09 100 Venturi Mask 10.0 45 02/18/18 19:09 95 22 100 Venturi Mask 10.0 45 02/18/18 19:00 98 20 100 Venturi Mask 10.0 45 02/18/18 18:00 74 14 144/55 Venturi Mask 45 02/18/18 17:00 83 18 154/60 Venturi Mask 45 02/18/18 16:00 83 02/18/18 16:00 98.0 83 18 144/50 Venturi Mask 45 98.0 02/18/18 16:00 45 02/18/18 15:21 97.8 02/18/18 15:00 74 20 134/44 99 Venturi Mask 45 02/18/18 14:22 97.8 02/18/18 14:00 75 20 133/48 99 Venturi Mask 45 02/18/18 14:00 110/54 02/18/18 14:00 110/54 02/18/18 13:39 78 15 100 Bi-pap 40 Intake and Output 02/18/18 02/19/18 19:00 07:00 Intake Total 100 ml 50 ml Output Total 3000 ml 0 ml Balance -2900 ml 50 ml Intake Oral 100 ml 50 ml Output Urine Total 0 ml 0 ml Hemodialysis UF 3000 ml Laboratory Tests Test 02/18/18 15:50 02/19/18 03:30 02/19/18 09:30 Troponin I 0.055 ng/mL (0.000-0.056) 0.043 ng/mL (0.000-0.056) C-Reactive Protein, Quantitative > 70.0 mg/dL (0.00-0.90) H White Blood Count 5.1 K/UL (4.8-10.8) Red Blood Count 2.39 M/UL (4.70-6.10) L Hemoglobin 8.2 G/DL (14.2-18.0) L Hematocrit 22.1 % (42.0-52.0) L Mean Corpuscular Volume 92 FL (80-99) Mean Corpuscular Hemoglobin 34.2 PG (27.0-31.0) H Mean Corpuscular Hemoglobin Concent 36.9 G/DL (32.0-36.0) H Red Cell Distribution Width 16.7 % (11.6-14.8) H Platelet Count 85 K/UL (150-450) L Mean Platelet Volume 7.0 FL (6.5-10.1) Neutrophils (%) (Auto) % (45.0-75.0) Lymphocytes (%) (Auto) % (20.0-45.0) Monocytes (%) (Auto) % (1.0-10.0) Eosinophils (%) (Auto) % (0.0-3.0) Basophils (%) (Auto) % (0.0-2.0) Differential Total Cells Counted 100 Neutrophils % (Manual) 70 % (45-75) Lymphocytes % (Manual) 13 % (20-45) L Monocytes % (Manual) 11 % (1-10) H Eosinophils % (Manual) 4 % (0-3) H Basophils % (Manual) 1 % (0-2) Band Neutrophils 1 % (0-8) Platelet Estimate Decreased L Platelet Morphology Normal Polychromasia 1+ Anisocytosis 1+ Prothrombin Time 28.8 SEC (9.30-11.50) H Prothromb Time International Ratio 2.7 (0.9-1.1) H Sodium Level 144 MMOL/L (136-145) Potassium Level 4.0 MMOL/L (3.5-5.1) Chloride Level 98 MMOL/L (98-107) Carbon Dioxide Level 35 MMOL/L (21-32) H Anion Gap 11 mmol/L (5-15) Blood Urea Nitrogen 75 mg/dL (7-18) H Creatinine 7.3 MG/DL (0.55-1.30) H Estimat Glomerular Filtration Rate 7.6 mL/min (>60) Glucose Level 110 MG/DL (74-106) H Calcium Level 8.0 MG/DL (8.5-10.1) L Phosphorus Level 8.5 MG/DL (2.5-4.9) H Magnesium Level 2.1 MG/DL (1.8-2.4) Total Bilirubin 1.5 MG/DL (0.2-1.0) H Direct Bilirubin 0.5 MG/DL (0.0-0.3) H Aspartate Amino Transf (AST/SGOT) 58 U/L (15-37) H Alanine Aminotransferase (ALT/SGPT) 48 U/L (12-78) Alkaline Phosphatase 328 U/L (46-116) H Ammonia 32 umol/L (11-32) Pro-B-Type Natriuretic Peptide 10242 pg/mL (0-125) H Total Protein 7.0 G/DL (6.4-8.2) Albumin 2.8 G/DL (3.4-5.0) L Globulin 4.2 g/dL Albumin/Globulin Ratio 0.7 (1.0-2.7) L Arterial Blood pH 7.467 (7.350-7.450) Arterial Blood Partial Pressure CO2 50.4 mmHg (35.0-45.0) H Arterial Blood Partial Pressure O2 83.9 mmHg (75.0-100.0) Arterial Blood HCO3 35.6 mmol/L (22.0-26.0) H Arterial Blood Oxygen Saturation 94.9 % (92.0-98.0) Arterial Blood Base Excess 10.7 Manuel Test Positive Height (Feet): 5 Height (Inches): 7.00 Weight (Pounds): 123 General Appearance: WD/WN, no apparent distress, alert Cardiovascular: normal rate Respiratory/Chest: normal breath sounds, no respiratory distress Abdominal Exam: normal bowel sounds, non tender, soft Extremities: normal range of motion, non-tender Freya Aldana N.P. February 19, 2018 13:17
--- NOTE | 2018-02-19 14:15 | Cardiology Progress Note ---
Assessment/Plan Assessment/Plan 1. Hypertension. 2. End-stage renal disease, on hemodialysis. 3. Anemia. 4. History of GI bleed secondary to AVMs. 5. Acute deep venous thrombosis, left leg. 6. History of femoral neck fracture 7. acute diastolic heart failure ctpa neg for pe has ivc filter inplace already dilaysis / uf today tele noted is anemic again not a candidate or chronic anticoag due to recurrent anemia dialysis /may need more UF pbc tx yest hgb better trop neg titrate oxygen Subjective Cardiovascular: Denies: chest pain, lightheadedness Respiratory: Denies: shortness of breath Gastrointestinal/Abdominal: Denies: abdominal pain Genitourinary: Reports: burning Objective Last 24 Hour Vital Signs Date Time Temp Pulse Resp B/P (MAP) Pulse Ox O2 Delivery O2 Flow Rate FiO2 02/19/18 13:21 73 20 100 Venturi Mask 10.0 45 02/19/18 13:10 74 18 96 Venturi Mask 10.0 45 02/19/18 12:34 97.4 02/19/18 09:59 69 126/56 02/19/18 08:00 97.4 69 19 126/56 96 Venturi Mask 10.0 45 97.4 02/19/18 07:59 100 Venturi Mask 10.0 45 02/19/18 07:59 Venturi Mask 10.0 45 02/19/18 07:58 70 18 100 Venturi Mask 10.0 45 02/19/18 07:50 67 18 96 Venturi Mask 10.0 45 02/19/18 07:43 72 02/19/18 05:13 146/74 02/19/18 05:13 146/74 02/19/18 04:00 97.3 71 22 146/74 99 Venturi Mask 10.0 45 97.3 02/19/18 04:00 72 02/19/18 00:00 97.4 73 22 155/74 98 Venturi Mask 10.0 45 97.4 02/19/18 00:00 75 02/18/18 21:41 137/60 02/18/18 21:41 137/60 02/18/18 20:00 78 02/18/18 20:00 97.5 79 21 137/60 94 Venturi Mask 10.0 45 97.5 02/18/18 19:09 Venturi Mask 10.0 45 02/18/18 19:09 100 Venturi Mask 10.0 45 02/18/18 19:09 95 22 100 Venturi Mask 10.0 45 02/18/18 19:00 98 20 100 Venturi Mask 10.0 45 02/18/18 18:00 74 14 144/55 Venturi Mask 45 02/18/18 17:00 83 18 154/60 Venturi Mask 45 02/18/18 16:00 83 02/18/18 16:00 98.0 83 18 144/50 Venturi Mask 45 98.0 02/18/18 16:00 45 02/18/18 15:21 97.8 02/18/18 15:00 74 20 134/44 99 Venturi Mask 45 02/18/18 14:22 97.8 General Appearance: alert Neck: supple Cardiovascular: normal rate, regular rhythm Respiratory/Chest: crackles/rales - left base Abdomen: normal bowel sounds, non tender, soft Extremities: no swelling Intake and Output 02/18/18 02/19/18 19:00 07:00 Intake Total 100 ml 50 ml Output Total 3000 ml 0 ml Balance -2900 ml 50 ml Intake Oral 100 ml 50 ml Output Urine Total 0 ml 0 ml Hemodialysis UF 3000 ml Laboratory Tests Test 02/18/18 15:50 02/19/18 03:30 02/19/18 09:30 Troponin I 0.055 ng/mL (0.000-0.056) 0.043 ng/mL (0.000-0.056) C-Reactive Protein, Quantitative > 70.0 mg/dL (0.00-0.90) H White Blood Count 5.1 K/UL (4.8-10.8) Red Blood Count 2.39 M/UL (4.70-6.10) L Hemoglobin 8.2 G/DL (14.2-18.0) L Hematocrit 22.1 % (42.0-52.0) L Mean Corpuscular Volume 92 FL (80-99) Mean Corpuscular Hemoglobin 34.2 PG (27.0-31.0) H Mean Corpuscular Hemoglobin Concent 36.9 G/DL (32.0-36.0) H Red Cell Distribution Width 16.7 % (11.6-14.8) H Platelet Count 85 K/UL (150-450) L Mean Platelet Volume 7.0 FL (6.5-10.1) Neutrophils (%) (Auto) % (45.0-75.0) Lymphocytes (%) (Auto) % (20.0-45.0) Monocytes (%) (Auto) % (1.0-10.0) Eosinophils (%) (Auto) % (0.0-3.0) Basophils (%) (Auto) % (0.0-2.0) Differential Total Cells Counted 100 Neutrophils % (Manual) 70 % (45-75) Lymphocytes % (Manual) 13 % (20-45) L Monocytes % (Manual) 11 % (1-10) H Eosinophils % (Manual) 4 % (0-3) H Basophils % (Manual) 1 % (0-2) Band Neutrophils 1 % (0-8) Platelet Estimate Decreased L Platelet Morphology Normal Polychromasia 1+ Anisocytosis 1+ Prothrombin Time 28.8 SEC (9.30-11.50) H Prothromb Time International Ratio 2.7 (0.9-1.1) H Sodium Level 144 MMOL/L (136-145) Potassium Level 4.0 MMOL/L (3.5-5.1) Chloride Level 98 MMOL/L (98-107) Carbon Dioxide Level 35 MMOL/L (21-32) H Anion Gap 11 mmol/L (5-15) Blood Urea Nitrogen 75 mg/dL (7-18) H Creatinine 7.3 MG/DL (0.55-1.30) H Estimat Glomerular Filtration Rate 7.6 mL/min (>60) Glucose Level 110 MG/DL (74-106) H Calcium Level 8.0 MG/DL (8.5-10.1) L Phosphorus Level 8.5 MG/DL (2.5-4.9) H Magnesium Level 2.1 MG/DL (1.8-2.4) Total Bilirubin 1.5 MG/DL (0.2-1.0) H Direct Bilirubin 0.5 MG/DL (0.0-0.3) H Aspartate Amino Transf (AST/SGOT) 58 U/L (15-37) H Alanine Aminotransferase (ALT/SGPT) 48 U/L (12-78) Alkaline Phosphatase 328 U/L (46-116) H Ammonia 32 umol/L (11-32) Pro-B-Type Natriuretic Peptide 02702 pg/mL (0-125) H Total Protein 7.0 G/DL (6.4-8.2) Albumin 2.8 G/DL (3.4-5.0) L Globulin 4.2 g/dL Albumin/Globulin Ratio 0.7 (1.0-2.7) L Arterial Blood pH 7.467 (7.350-7.450) Arterial Blood Partial Pressure CO2 50.4 mmHg (35.0-45.0) H Arterial Blood Partial Pressure O2 83.9 mmHg (75.0-100.0) Arterial Blood HCO3 35.6 mmol/L (22.0-26.0) H Arterial Blood Oxygen Saturation 94.9 % (92.0-98.0) Arterial Blood Base Excess 10.7 Manuel Test Positive JACINTO CORONA February 19, 2018 14:15
--- NOTE | 2018-02-19 15:11 | General Progress Note ---
Assessment/Plan Problem List: (1) Abnormal laboratory test result ICD Codes: R89.9 - Unspecified abnormal finding in specimens from other organs , systems and tissues SNOMED: 059759147 (2) ESRD (end stage renal disease) on dialysis ICD Codes: N18.6 - End stage renal disease; Z99.2 - Dependence on renal dialysis SNOMED: 005810137 (3) Hypertension, uncontrolled ICD Codes: I10 - Essential (primary) hypertension SNOMED: 44615721, 70638999 (4) Symptomatic anemia ICD Codes: D64.9 - Anemia, unspecified SNOMED: 884696109 (5) Acute hyperkalemia ICD Codes: E87.5 - Hyperkalemia SNOMED: 7085429 (6) DVT (deep venous thrombosis) ICD Codes: I82.409 - Acute embolism and thrombosis of unspecified deep veins of unspecified lower extremity SNOMED: 904333664 (7) SOB (shortness of breath) ICD Codes: R06.02 - Shortness of breath SNOMED: 076343825 (8) Respiratory failure ICD Codes: J96.90 - Respiratory failure, unspecified, unspecified whether with hypoxia or hypercapnia SNOMED: 103292322 Status: stable, progressing, tolerating diet Assessment/Plan ot pt diet o2 pulm tx gi/heme f/u anticoag pulm cbc bmp am ltach eval Subjective Constitutional: Reports: weakness Allergies: Coded Allergies: No Known Allergies (Unverified , 02/02/18) All Systems: reviewed and negative except above Subjective o2nc sl sob Objective Last 24 Hour Vital Signs Date Time Temp Pulse Resp B/P (MAP) Pulse Ox O2 Delivery O2 Flow Rate FiO2 02/19/18 15:00 97.4 02/19/18 13:21 73 20 100 Venturi Mask 10.0 45 02/19/18 13:10 74 18 96 Venturi Mask 10.0 45 02/19/18 12:34 97.4 02/19/18 12:00 97.4 71 20 118/62 98 Venturi Mask 10.0 45 97.4 02/19/18 12:00 70 02/19/18 09:59 69 126/56 02/19/18 08:00 97.4 69 19 126/56 96 Venturi Mask 10.0 45 97.4 02/19/18 07:59 100 Venturi Mask 10.0 45 02/19/18 07:59 Venturi Mask 10.0 45 02/19/18 07:58 70 18 100 Venturi Mask 10.0 45 02/19/18 07:50 67 18 96 Venturi Mask 10.0 45 02/19/18 07:43 72 02/19/18 05:13 146/74 02/19/18 05:13 146/74 02/19/18 04:00 97.3 71 22 146/74 99 Venturi Mask 10.0 45 97.3 02/19/18 04:00 72 02/19/18 00:00 97.4 73 22 155/74 98 Venturi Mask 10.0 45 97.4 02/19/18 00:00 75 02/18/18 21:41 137/60 02/18/18 21:41 137/60 02/18/18 20:00 78 02/18/18 20:00 97.5 79 21 137/60 94 Venturi Mask 10.0 45 97.5 02/18/18 19:09 Venturi Mask 10.0 45 02/18/18 19:09 100 Venturi Mask 10.0 45 02/18/18 19:09 95 22 100 Venturi Mask 10.0 45 02/18/18 19:00 98 20 100 Venturi Mask 10.0 45 02/18/18 18:00 74 14 144/55 Venturi Mask 45 02/18/18 17:00 83 18 154/60 Venturi Mask 45 02/18/18 16:00 83 02/18/18 16:00 98.0 83 18 144/50 Venturi Mask 45 98.0 02/18/18 16:00 45 02/18/18 15:21 97.8 Intake and Output 02/18/18 02/19/18 19:00 07:00 Intake Total 100 ml 50 ml Output Total 3000 ml 0 ml Balance -2900 ml 50 ml Intake Oral 100 ml 50 ml Output Urine Total 0 ml 0 ml Hemodialysis UF 3000 ml Laboratory Tests 02/18/18 15:50: Troponin I 0.055, C-Reactive Protein, Quantitative > 70.0H 02/19/18 03:30: Troponin I 0.043, White Blood Count 5.1, Red Blood Count 2.39L, Hemoglobin 8.2L , Hematocrit 22.1L, Mean Corpuscular Volume 92, Mean Corpuscular Hemoglobin 34.2H, Mean Corpuscular Hemoglobin Concent 36.9H, Red Cell Distribution Width 16.7H, Platelet Count 85L, Mean Platelet Volume 7.0, Neutrophils (%) (Auto) , Lymphocytes (%) (Auto) , Monocytes (%) (Auto) , Eosinophils (%) (Auto) , Basophils (%) (Auto) , Differential Total Cells Counted 100, Neutrophils % ( Manual) 70, Lymphocytes % (Manual) 13L, Monocytes % (Manual) 11H, Eosinophils % (Manual) 4H, Basophils % (Manual) 1, Band Neutrophils 1, Platelet Estimate DecreasedL, Platelet Morphology Normal, Polychromasia 1+, Anisocytosis 1+, Prothrombin Time 28.8H, Prothromb Time International Ratio 2.7H, Sodium Level 144, Potassium Level 4.0, Chloride Level 98, Carbon Dioxide Level 35H, Anion Gap 11, Blood Urea Nitrogen 75H, Creatinine 7.3H, Estimat Glomerular Filtration Rate 7.6, Glucose Level 110H, Calcium Level 8.0L, Phosphorus Level 8.5H, Magnesium Level 2.1, Total Bilirubin 1.5H, Direct Bilirubin 0.5H, Aspartate Amino Transf (AST/SGOT) 58H, Alanine Aminotransferase (ALT/SGPT) 48, Alkaline Phosphatase 328H, Ammonia 32, Pro-B-Type Natriuretic Peptide 94574V, Total Protein 7.0, Albumin 2.8L, Globulin 4.2, Albumin/Globulin Ratio 0.7L 02/19/18 09:30: Arterial Blood pH 7.467H, Arterial Blood Partial Pressure CO2 50.4H, Arterial Blood Partial Pressure O2 83.9, Arterial Blood HCO3 35.6H, Arterial Blood Oxygen Saturation 94.9, Arterial Blood Base Excess 10.7, Manuel Test Positive Height (Feet): 5 Height (Inches): 7.00 Weight (Pounds): 123 General Appearance: alert EENT: normal ENT inspection Neck: normal alignment Cardiovascular: normal peripheral pulses, normal rate, regular rhythm Respiratory/Chest: chest wall non-tender, decreased breath sounds Abdomen: normal bowel sounds, non tender, soft Extremities: normal inspection Edema: no edema noted Arm (L), no edema noted Arm (R), no edema noted Leg (L), no edema noted Leg (R), no edema noted Pedal (L), no edema noted Pedal (R), no edema noted Generalized Neurologic: responsive, motor weakness Skin: normal pigmentation, warm/dry PEDRO HUTSON February 19, 2018 15:10
--- NOTE | 2018-02-19 15:15 | Nephrology Progress Note ---
Assessment/Plan Problem List: (1) ESRD (end stage renal disease) on dialysis (2) Acute hyperkalemia (3) Hypertension, uncontrolled (4) Left leg DVT (5) Anemia in chronic kidney disease (CKD) Assessment now out of ICU in [place] ESRD, on admission missed dialysis . has high K on admission has fistula right arm Sever Anemia h/o Amyloidosis COPD Plan HD last t 02/18 next 02/20 Transfusion as needed Kayexelate as needed BP control, meds adjusted has IVC filter Neg for pulm emboli- DC heparin Subjective ROS Limited/Unobtainable: No Constitutional: Reports: malaise, weakness Objective Objective Last 24 Hour Vital Signs Date Time Temp Pulse Resp B/P (MAP) Pulse Ox O2 Delivery O2 Flow Rate FiO2 02/19/18 15:00 97.4 02/19/18 14:55 97 Nasal Cannula 4.0 36 02/19/18 13:21 73 20 100 Venturi Mask 10.0 45 02/19/18 13:10 74 18 96 Venturi Mask 10.0 45 02/19/18 12:34 97.4 02/19/18 12:00 97.4 71 20 118/62 98 Venturi Mask 10.0 45 97.4 02/19/18 12:00 70 02/19/18 09:59 69 126/56 02/19/18 08:00 97.4 69 19 126/56 96 Venturi Mask 10.0 45 97.4 02/19/18 07:59 100 Venturi Mask 10.0 45 02/19/18 07:59 Venturi Mask 10.0 45 02/19/18 07:58 70 18 100 Venturi Mask 10.0 45 02/19/18 07:50 67 18 96 Venturi Mask 10.0 45 02/19/18 07:43 72 02/19/18 05:13 146/74 02/19/18 05:13 146/74 02/19/18 04:00 97.3 71 22 146/74 99 Venturi Mask 10.0 45 97.3 02/19/18 04:00 72 02/19/18 00:00 97.4 73 22 155/74 98 Venturi Mask 10.0 45 97.4 02/19/18 00:00 75 02/18/18 21:41 137/60 02/18/18 21:41 137/60 02/18/18 20:00 78 02/18/18 20:00 97.5 79 21 137/60 94 Venturi Mask 10.0 45 97.5 02/18/18 19:09 Venturi Mask 10.0 45 02/18/18 19:09 100 Venturi Mask 10.0 45 02/18/18 19:09 95 22 100 Venturi Mask 10.0 45 02/18/18 19:00 98 20 100 Venturi Mask 10.0 45 02/18/18 18:00 74 14 144/55 Venturi Mask 45 02/18/18 17:00 83 18 154/60 Venturi Mask 45 02/18/18 16:00 83 02/18/18 16:00 98.0 83 18 144/50 Venturi Mask 45 98.0 02/18/18 16:00 45 02/18/18 15:21 97.8 Intake and Output 02/18/18 02/19/18 19:00 07:00 Intake Total 100 ml 50 ml Output Total 3000 ml 0 ml Balance -2900 ml 50 ml Intake Oral 100 ml 50 ml Output Urine Total 0 ml 0 ml Hemodialysis UF 3000 ml Laboratory Tests 02/18/18 15:50: Troponin I 0.055, C-Reactive Protein, Quantitative > 70.0H 02/19/18 03:30: Troponin I 0.043, White Blood Count 5.1, Red Blood Count 2.39L, Hemoglobin 8.2L , Hematocrit 22.1L, Mean Corpuscular Volume 92, Mean Corpuscular Hemoglobin 34.2H, Mean Corpuscular Hemoglobin Concent 36.9H, Red Cell Distribution Width 16.7H, Platelet Count 85L, Mean Platelet Volume 7.0, Neutrophils (%) (Auto) , Lymphocytes (%) (Auto) , Monocytes (%) (Auto) , Eosinophils (%) (Auto) , Basophils (%) (Auto) , Differential Total Cells Counted 100, Neutrophils % ( Manual) 70, Lymphocytes % (Manual) 13L, Monocytes % (Manual) 11H, Eosinophils % (Manual) 4H, Basophils % (Manual) 1, Band Neutrophils 1, Platelet Estimate DecreasedL, Platelet Morphology Normal, Polychromasia 1+, Anisocytosis 1+, Prothrombin Time 28.8H, Prothromb Time International Ratio 2.7H, Sodium Level 144, Potassium Level 4.0, Chloride Level 98, Carbon Dioxide Level 35H, Anion Gap 11, Blood Urea Nitrogen 75H, Creatinine 7.3H, Estimat Glomerular Filtration Rate 7.6, Glucose Level 110H, Calcium Level 8.0L, Phosphorus Level 8.5H, Magnesium Level 2.1, Total Bilirubin 1.5H, Direct Bilirubin 0.5H, Aspartate Amino Transf (AST/SGOT) 58H, Alanine Aminotransferase (ALT/SGPT) 48, Alkaline Phosphatase 328H, Ammonia 32, Pro-B-Type Natriuretic Peptide 82721W, Total Protein 7.0, Albumin 2.8L, Globulin 4.2, Albumin/Globulin Ratio 0.7L 02/19/18 09:30: Arterial Blood pH 7.467H, Arterial Blood Partial Pressure CO2 50.4H, Arterial Blood Partial Pressure O2 83.9, Arterial Blood HCO3 35.6H, Arterial Blood Oxygen Saturation 94.9, Arterial Blood Base Excess 10.7, Manuel Test Positive Height (Feet): 5 Height (Inches): 7.00 Weight (Pounds): 123 Neck: limited range of motion Cardiovascular: normal rate Respiratory/Chest: decreased breath sounds Abdomen: distended Objective no change DALTON ROSENTHAL February 19, 2018 15:15
[2018-02-19 16:00] VITALS: BP 128/54
--- NOTE | 2018-02-19 16:30 | Progress Note ---
DATE: 02/19/2018 SUBJECTIVE: The patient is a 63-year-old male patient with anemia and GI bleeding. He continues to have confusion, disorganized thought process, and mood lability, but because of his declining cognition and mood lability, worsened by the stress of his medical illness, attending has requested daily psychiatric consultation. MENTAL STATUS EXAMINATION: This patient is a 63-year-old male. Appearance is disheveled. Attitude, irritable and agitated. Affect, guarded and restricted. Intellect, poor. Mood depressed and anxious. Motor activity, psychomotor agitation. Attention span is poor. Orientation x2. Speech is pressured. Thought process, disorganized and illogical. Thought content, auditory hallucinations and paranoid delusions. Insight and judgement are poor. DIAGNOSIS: Paranoid schizophrenia, acute exacerbation. PLAN: Treat this patient with Seroquel 25 mg at bedtime. 18 to 20 minutes of supportive psychotherapy provided. Chart reviewed and discussed with staff. . Rony Corral M.D. DR: EDDY JOB#: [id number] CC:
--- NOTE | 2018-02-19 16:48 | Cardiology Report ---
APPROVED REPORT EKG Measurement Heart [id number] Sinus rhythm with 1st degree AV block with premature atrial complexes Nonspecific intraventricular block Abnormal ECG
[2018-02-19] MEDS ORDERED: Warfarin Sodium 2mg ORAL SCH (17:00)
[2018-02-19 20:00] VITALS: BP 138/68
[2018-02-19] MEDS ORDERED: Zolpidem 5mg tab ORAL PRN (21:00)
--- NOTE | 2018-02-19 23:35 | General Progress Note ---
Assessment/Plan Assessment/Plan IMPRESSION: 1. Acute deep venous thrombosis, left lower extremities. 2. Status post inferior vena cava filter placement. 3. Anticoagulation with Coumadin. 4. Anticoagulation with IV heparin. 5. History of gastrointestinal bleed. 6. Anemia of kidney disease. 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 Anemia of chronic disease. --> S/P blood transfusion 8. Decreased hemoglobin and hematocrit, rule out gastrointestinal bleed. 9. End-stage renal disease, hemodialysis dependent. 10. History of femoral neck fracture. 11. Hypertension. 12. Acute respiratory failure. 13. Pulmonary edema. 14. Malnutrition. 15. Failure to thrive. 16. Chronic obstructive pulmonary disease. 17. History of polysubstance abuse. 18. Benign prostatic hypertrophy. 19. Fluid overload. 20. History of hepatitis C. 21. History of posttraumatic stress disorder. 22. History of smoking. RECOMMENDATIONS: 1. Watch count. 2. Watch coagulopathy. 3. PRBC transfusion p.r.n. basis. 4. Heparin IV. 5. Coumadin p.o. 6. Procrit subcutaneously. 7. Iron IV. 8. Cardiology followup. 9. Pulmonary followup. 10. Skin care. 11. Nutrition. 12. Discussed with the staff. Subjective Date patient seen: February 19, 2018 Constitutional: Denies: no symptoms, chills, diaphoresis, fever, malaise, weakness, other HEENT: Denies: no symptoms, eye pain, blurred vision, tearing, double vision, ear pain, ear discharge, nose pain, nose congestion, throat pain, throat swelling, mouth pain, mouth swelling, other Cardiovascular: Denies: no symptoms, chest pain, edema, irregular heart rate, lightheadedness, palpitations, syncope, other Respiratory: Denies: no symptoms, cough, orthopnea, shortness of breath, SOB with excertion, SOB at rest, sputum, stridor, wheezing, other Gastrointestinal/Abdominal: Denies: no symptoms, abdomen distended, abdominal pain, black stools, tarry stools, blood in stool, constipated, diarrhea, difficulty swallowing, nausea, poor appetite, poor fluid intake, rectal bleeding , vomiting, other Genitourinary: Denies: no symptoms, burning, discharge, frequency, flank pain, hematuria, incontinence, pain, urgency, other Neurologic/Psychiatric: Denies: no symptoms, anxiety, depressed, emotional problems, headache, numbness, paresthesia, pre-existing deficit, seizure, tingling, tremors, weakness, other Hematologic/Lymphatic: Reports: anemia Allergies: Coded Allergies: No Known Allergies (Unverified , 02/02/18) Subjective Pt is in bed, a/ox3. With Venturi 45%. S/P blood transfusion. Objective Last 24 Hour Vital Signs Date Time Temp Pulse Resp B/P (MAP) Pulse Ox O2 Delivery O2 Flow Rate FiO2 02/19/18 21:15 138/68 02/19/18 21:14 138/68 02/19/18 20:00 97.9 66 20 138/68 97 Venturi Mask 10.0 45 97.9 02/19/18 19:27 74 18 100 Nasal Cannula 4.0 36 02/19/18 19:25 65 02/19/18 19:20 71 18 95 Nasal Cannula 4.0 36 02/19/18 19:02 96 Nasal Cannula 4.0 36 02/19/18 19:02 Nasal Cannula 4.0 36 02/19/18 16:00 70 02/19/18 16:00 98.1 70 21 128/54 97 Venturi Mask 10.0 45 98.1 02/19/18 15:00 97.4 02/19/18 14:55 97 Nasal Cannula 4.0 36 02/19/18 14:00 118/62 02/19/18 14:00 118/62 02/19/18 13:21 73 20 100 Venturi Mask 10.0 45 02/19/18 13:10 74 18 96 Venturi Mask 10.0 45 02/19/18 12:34 97.4 02/19/18 12:00 97.4 71 20 118/62 98 Venturi Mask 10.0 45 97.4 02/19/18 12:00 70 02/19/18 09:59 69 126/56 02/19/18 08:00 97.4 69 19 126/56 96 Venturi Mask 10.0 45 97.4 02/19/18 07:59 100 Venturi Mask 10.0 45 02/19/18 07:59 Venturi Mask 10.0 45 02/19/18 07:58 70 18 100 Venturi Mask 10.0 45 02/19/18 07:50 67 18 96 Venturi Mask 10.0 45 02/19/18 07:43 72 02/19/18 05:13 146/74 02/19/18 05:13 146/74 02/19/18 04:00 97.3 71 22 146/74 99 Venturi Mask 10.0 45 97.3 02/19/18 04:00 72 02/19/18 00:00 97.4 73 22 155/74 98 Venturi Mask 10.0 45 97.4 02/19/18 00:00 75 Intake and Output 02/18/18 02/19/18 19:00 07:00 Intake Total 100 ml 50 ml Output Total 3000 ml 0 ml Balance -2900 ml 50 ml Intake Oral 100 ml 50 ml Output Urine Total 0 ml 0 ml Hemodialysis UF 3000 ml Laboratory Tests 02/19/18 03:30: White Blood Count 5.1, Red Blood Count 2.39L, Hemoglobin 8.2L, Hematocrit 22.1L , Mean Corpuscular Volume 92, Mean Corpuscular Hemoglobin 34.2H, Mean Corpuscular Hemoglobin Concent 36.9H, Red Cell Distribution Width 16.7H, Platelet Count 85L, Mean Platelet Volume 7.0, Neutrophils (%) (Auto) , Lymphocytes (%) (Auto) , Monocytes (%) (Auto) , Eosinophils (%) (Auto) , Basophils (%) (Auto) , Differential Total Cells Counted 100, Neutrophils % ( Manual) 70, Lymphocytes % (Manual) 13L, Monocytes % (Manual) 11H, Eosinophils % (Manual) 4H, Basophils % (Manual) 1, Band Neutrophils 1, Platelet Estimate DecreasedL, Platelet Morphology Normal, Polychromasia 1+, Anisocytosis 1+, Prothrombin Time 28.8H, Prothromb Time International Ratio 2.7H, Sodium Level 144, Potassium Level 4.0, Chloride Level 98, Carbon Dioxide Level 35H, Anion Gap 11, Blood Urea Nitrogen 75H, Creatinine 7.3H, Estimat Glomerular Filtration Rate 7.6, Glucose Level 110H, Calcium Level 8.0L, Phosphorus Level 8.5H, Magnesium Level 2.1, Total Bilirubin 1.5H, Direct Bilirubin 0.5H, Aspartate Amino Transf (AST/SGOT) 58H, Alanine Aminotransferase (ALT/SGPT) 48, Alkaline Phosphatase 328H, Ammonia 32, Troponin I 0.043, Pro-B-Type Natriuretic Peptide 72445A, Total Protein 7.0, Albumin 2.8L, Globulin 4.2, Albumin/Globulin Ratio 0.7L 02/19/18 09:30: Arterial Blood pH 7.467H, Arterial Blood Partial Pressure CO2 50.4H, Arterial Blood Partial Pressure O2 83.9, Arterial Blood HCO3 35.6H, Arterial Blood Oxygen Saturation 94.9, Arterial Blood Base Excess 10.7, Manuel Test Positive Height (Feet): 5 Height (Inches): 7.00 Weight (Pounds): 123 General Appearance: confused EENT: normal ENT inspection Neck: normal alignment Cardiovascular: normal rate, regular rhythm Respiratory/Chest: decreased breath sounds Abdomen: non tender, soft Tristen Lewis MD February 19, 2018 23:35
[2018-02-20] VITALS: BP 141/76
[2018-02-20 04:00] VITALS: BP 143/71
[2018-02-20 05:53] LABS: HEMATOCRIT 22.2 % (42.0-52.0); HEMOGLOBIN 8.1 G/DL (14.2-18.0); MEAN CORPUSCULAR VOLUME 93 FL (80-99); PLATELET COUNT 84 K/UL (150-450); RED BLOOD COUNT 2.39 M/UL (4.70-6.10); RED CELL DISTRIBUTION WIDTH 16.6 % (11.6-14.8); WHITE BLOOD COUNT 4.9 K/UL (4.8-10.8)
[2018-02-20 06:05] LABS: ANION GAP 9 mmol/L (5-15); BLOOD UREA NITROGEN 90 mg/dL (7-18); CALCIUM 7.5 MG/DL (8.5-10.1); CARBON DIOXIDE 34 MMOL/L (21-32); CHLORIDE 96 MMOL/L (98-107); CREATININE 8.9 MG/DL (0.55-1.30); SODIUM 139 MMOL/L (136-145)
[2018-02-20 06:07] LABS: INR 3.2 (0.9-1.1)
[2018-02-20 06:09] LABS: PHOSPHORUS 9.8 MG/DL (2.5-4.9)
[2018-02-20] MEDS: HydrALAZINE 25mg tab ORAL SCH ×3 (06:47→20:53)
[2018-02-20 08:00] VITALS: BP 137/70
--- NOTE | 2018-02-20 08:47 | General Progress Note ---
Assessment/Plan Assessment/Plan (1) Right hip pain (2) Right hip Fracture (3) S/p ORIF of right hip Pt will continued on Percocet HOLD OPIOIDS FOR OVERSEDATION OR SBP<90 OR DBP<60 OR O2SAT<92% OR RR<12 D/w Dr. Childers he concurred. Subjective Date patient seen: February 20, 2018 Time patient seen: 07:15 - am Constitutional: Reports: weakness HEENT: Reports: no symptoms Cardiovascular: Reports: no symptoms Respiratory: Reports: no symptoms Gastrointestinal/Abdominal: Reports: no symptoms Genitourinary: Reports: no symptoms Neurologic/Psychiatric: Reports: weakness Endocrine: Reports: no symptoms Hematologic/Lymphatic: Reports: no symptoms Allergies: Coded Allergies: No Known Allergies (Unverified , 02/02/18) Subjective Patient is in bed and showing no signs of pain or distress. Will be having dialysis today. Had one Percocet in the last day. Objective Last 24 Hour Vital Signs Date Time Temp Pulse Resp B/P (MAP) Pulse Ox O2 Delivery O2 Flow Rate FiO2 02/20/18 06:47 143/71 02/20/18 04:21 63 02/20/18 04:00 97.7 65 18 143/71 96 97.7 02/20/18 00:10 63 02/20/18 00:00 97.8 67 19 141/76 96 97.8 02/19/18 21:15 138/68 02/19/18 21:14 138/68 02/19/18 20:00 97.9 66 20 138/68 97 Venturi Mask 10.0 45 97.9 02/19/18 19:27 74 18 100 Nasal Cannula 4.0 36 02/19/18 19:25 65 02/19/18 19:20 71 18 95 Nasal Cannula 4.0 36 02/19/18 19:02 96 Nasal Cannula 4.0 36 02/19/18 19:02 Nasal Cannula 4.0 36 02/19/18 16:00 70 02/19/18 16:00 98.1 70 21 128/54 97 Venturi Mask 10.0 45 98.1 02/19/18 15:00 97.4 02/19/18 14:55 97 Nasal Cannula 4.0 36 02/19/18 14:00 118/62 02/19/18 14:00 118/62 02/19/18 13:21 73 20 100 Venturi Mask 10.0 45 02/19/18 13:10 74 18 96 Venturi Mask 10.0 45 02/19/18 12:34 97.4 02/19/18 12:00 97.4 71 20 118/62 98 Venturi Mask 10.0 45 97.4 02/19/18 12:00 70 02/19/18 09:59 69 126/56 Intake and Output 02/19/18 02/20/18 19:00 07:00 Intake Total 400 ml 150 ml Output Total 0 ml Balance 400 ml 150 ml Intake Oral 400 ml Other 150 ml Output Urine Total 0 ml # Voids 2 # Bowel Movements 1 1 Laboratory Tests 02/19/18 09:30: Arterial Blood pH 7.467H, Arterial Blood Partial Pressure CO2 50.4H, Arterial Blood Partial Pressure O2 83.9, Arterial Blood HCO3 35.6H, Arterial Blood Oxygen Saturation 94.9, Arterial Blood Base Excess 10.7, Manuel Test Positive 02/20/18 04:15: White Blood Count 4.9, Red Blood Count 2.39L, Hemoglobin 8.1L, Hematocrit 22.2L , Mean Corpuscular Volume 93, Mean Corpuscular Hemoglobin 34.1H, Mean Corpuscular Hemoglobin Concent 36.7H, Red Cell Distribution Width 16.6H, Platelet Count 84L, Mean Platelet Volume 6.8, Neutrophils (%) (Auto) , Lymphocytes (%) (Auto) , Monocytes (%) (Auto) , Eosinophils (%) (Auto) , Basophils (%) (Auto) , Differential Total Cells Counted 100, Neutrophils % ( Manual) 75, Lymphocytes % (Manual) 15L, Monocytes % (Manual) 6, Eosinophils % ( Manual) 4H, Basophils % (Manual) 0, Band Neutrophils 0, Platelet Estimate DecreasedL, Platelet Morphology Normal, Anisocytosis 1+, Prothrombin Time 33.8H , Prothromb Time International Ratio 3.2H, Sodium Level 139, Potassium Level 4.0 , Chloride Level 96L, Carbon Dioxide Level 34H, Anion Gap 9, Blood Urea Nitrogen 90H, Creatinine 8.9H, Estimat Glomerular Filtration Rate 6.0, Glucose Level 108H, Calcium Level 7.5L, Phosphorus Level 9.8H, Magnesium Level 2.1 Height (Feet): 5 Height (Inches): 7.00 Weight (Pounds): 123 Objective Neck: non-tender, normal alignment, supple, normal inspection Respiratory/Chest: decreased breath sounds Cardiovascular/Chest: normal rate, regular rhythm Abdomen: non tender, soft, no organomegaly Extremities: inflammation - right hip tenderness to palpation Skin Exam: normal pigmentation, warm/dry KANWAL CURRAN February 20, 2018 08:47
[2018-02-20] MEDS ORDERED: Acetaminophen 500mg (ES) tab ORAL PRN (09:00)
--- NOTE | 2018-02-20 10:01 | Progress Note ---
DATE: 02/20/2018 HISTORY: The patient is 63-year-old male with anemia and GI bleeding, so the patient has anemia and GI bleeding, but he has altered mental status, confusion, that is why, his attending has requested daily psychiatric consultation. MENTAL STATUS EXAMINATION: This is a 63-year-old male. Appearance is disheveled. Attitude irritable and agitated. Affect guarded and restricted. Intellect poor. Mood depressed and anxious. Motor activity, psychomotor agitation. Attention span is poor. Orientation x2. Speech is pressured. Thought process, disorganized and illogical. Thought content, auditory hallucinations and paranoid delusions. Insight and judgment is poor. DIAGNOSIS: Major depression with psychotic features. PLAN: Plan is to continue this patient on Seroquel 25 mg at bedtime to stabilize his mood. Provide 18 to 20 minutes supportive psychotherapy. Chart reviewed and discussed with staff. Rony Corral M.D. DR: EDDY JOB#: [id number] CC:
--- NOTE | 2018-02-20 10:14 | Nephrology Progress Note ---
Assessment/Plan Problem List: (1) ESRD (end stage renal disease) on dialysis (2) Acute hyperkalemia (3) Hypertension, uncontrolled (4) Left leg DVT (5) Anemia in chronic kidney disease (CKD) Assessment now out of ICU in [place] ESRD, on admission missed dialysis . has high K on admission has fistula right arm Sever Anemia h/o Amyloidosis COPD Plan HD last t 02/18 next 02/20 Transfusion as needed Kayexelate as needed BP control, meds adjusted has IVC filter add phos binders Subjective ROS Limited/Unobtainable: No Constitutional: Reports: malaise, weakness Objective Objective Last 24 Hour Vital Signs Date Time Temp Pulse Resp B/P (MAP) Pulse Ox O2 Delivery O2 Flow Rate FiO2 02/20/18 08:00 68 02/20/18 08:00 97.0 65 20 137/70 95 Nasal Cannula 2.0 97.0 02/20/18 06:47 143/71 02/20/18 04:21 63 02/20/18 04:00 97.7 65 18 143/71 96 97.7 02/20/18 00:10 63 02/20/18 00:00 97.8 67 19 141/76 96 97.8 02/19/18 21:15 138/68 02/19/18 21:14 138/68 02/19/18 20:00 97.9 66 20 138/68 97 Venturi Mask 10.0 45 97.9 02/19/18 19:27 74 18 100 Nasal Cannula 4.0 36 02/19/18 19:25 65 02/19/18 19:20 71 18 95 Nasal Cannula 4.0 36 02/19/18 19:02 96 Nasal Cannula 4.0 36 02/19/18 19:02 Nasal Cannula 4.0 36 02/19/18 16:00 70 02/19/18 16:00 98.1 70 21 128/54 97 Venturi Mask 10.0 45 98.1 02/19/18 15:00 97.4 02/19/18 14:55 97 Nasal Cannula 4.0 36 02/19/18 14:00 118/62 02/19/18 14:00 118/62 02/19/18 13:21 73 20 100 Venturi Mask 10.0 45 02/19/18 13:10 74 18 96 Venturi Mask 10.0 45 02/19/18 12:34 97.4 02/19/18 12:00 97.4 71 20 118/62 98 Venturi Mask 10.0 45 97.4 02/19/18 12:00 70 Intake and Output 02/19/18 02/20/18 19:00 07:00 Intake Total 400 ml 150 ml Output Total 0 ml Balance 400 ml 150 ml Intake Oral 400 ml Other 150 ml Output Urine Total 0 ml # Voids 2 # Bowel Movements 1 1 Laboratory Tests 02/20/18 04:15: White Blood Count 4.9, Red Blood Count 2.39L, Hemoglobin 8.1L, Hematocrit 22.2L , Mean Corpuscular Volume 93, Mean Corpuscular Hemoglobin 34.1H, Mean Corpuscular Hemoglobin Concent 36.7H, Red Cell Distribution Width 16.6H, Platelet Count 84L, Mean Platelet Volume 6.8, Neutrophils (%) (Auto) , Lymphocytes (%) (Auto) , Monocytes (%) (Auto) , Eosinophils (%) (Auto) , Basophils (%) (Auto) , Differential Total Cells Counted 100, Neutrophils % ( Manual) 75, Lymphocytes % (Manual) 15L, Monocytes % (Manual) 6, Eosinophils % ( Manual) 4H, Basophils % (Manual) 0, Band Neutrophils 0, Platelet Estimate DecreasedL, Platelet Morphology Normal, Anisocytosis 1+, Prothrombin Time 33.8H , Prothromb Time International Ratio 3.2H, Sodium Level 139, Potassium Level 4.0 , Chloride Level 96L, Carbon Dioxide Level 34H, Anion Gap 9, Blood Urea Nitrogen 90H, Creatinine 8.9H, Estimat Glomerular Filtration Rate 6.0, Glucose Level 108H, Calcium Level 7.5L, Phosphorus Level 9.8H, Magnesium Level 2.1 Height (Feet): 5 Height (Inches): 7.00 Weight (Pounds): 123 General Appearance: no apparent distress Objective no change DALTON ROSENTHAL February 20, 2018 10:14
[2018-02-20] MEDS: Levalbuterol Inh UD 1.25mg/0.5ml HHN SCH ×3 (10:34→19:30)
--- NOTE | 2018-02-20 10:47 | GI Progress Note ---
Assessment/Plan Problems: (1) Abnormal LFTs ICD Codes: R94.5 - Abnormal results of liver function studies SNOMED: 943330404 (2) Symptomatic anemia ICD Codes: D64.9 - Anemia, unspecified SNOMED: 904120565 (3) ESRD (end stage renal disease) on dialysis ICD Codes: N18.6 - End stage renal disease; Z99.2 - Dependence on renal dialysis SNOMED: 202892012 Status: stable, unchanged Status Narrative Discussed with Dr. Matos. Assessment/Plan hx of EGD/colonoscopy 3 months ago per patient, cannot recall location. iron panel WNL OB stool negative fu nephro recs monitor H&H, prn transfusions ppi thiamine fu labs outpatient GI procedures The patient was seen and examined at bedside and all new and available data was reviewed in the patients chart. I agree with the above findings, impression and plan. (Patient seen earlier today. Signature stamp does not reflect patient encounter time.). - Tushar Matos MD Subjective Subjective denies abdominal pain had EGD/colonoscopy x3 months Objective Last 24 Hour Vital Signs Date Time Temp Pulse Resp B/P (MAP) Pulse Ox O2 Delivery O2 Flow Rate FiO2 02/20/18 10:35 Nasal Cannula 02/20/18 10:35 Nasal Cannula 02/20/18 08:00 68 02/20/18 08:00 97.0 65 20 137/70 95 Nasal Cannula 2.0 97.0 02/20/18 06:47 143/71 02/20/18 04:21 63 02/20/18 04:00 97.7 65 18 143/71 96 97.7 02/20/18 00:10 63 02/20/18 00:00 97.8 67 19 141/76 96 97.8 02/19/18 21:15 138/68 02/19/18 21:14 138/68 02/19/18 20:00 97.9 66 20 138/68 97 Venturi Mask 10.0 45 97.9 02/19/18 19:27 74 18 100 Nasal Cannula 4.0 36 02/19/18 19:25 65 02/19/18 19:20 71 18 95 Nasal Cannula 4.0 36 02/19/18 19:02 96 Nasal Cannula 4.0 36 02/19/18 19:02 Nasal Cannula 4.0 36 02/19/18 16:00 70 02/19/18 16:00 98.1 70 21 128/54 97 Venturi Mask 10.0 45 98.1 02/19/18 15:00 97.4 02/19/18 14:55 97 Nasal Cannula 4.0 36 02/19/18 14:00 118/62 02/19/18 14:00 118/62 02/19/18 13:21 73 20 100 Venturi Mask 10.0 45 02/19/18 13:10 74 18 96 Venturi Mask 10.0 45 02/19/18 12:34 97.4 02/19/18 12:00 97.4 71 20 118/62 98 Venturi Mask 10.0 45 97.4 02/19/18 12:00 70 Intake and Output 02/19/18 02/20/18 19:00 07:00 Intake Total 400 ml 150 ml Output Total 0 ml Balance 400 ml 150 ml Intake Oral 400 ml Other 150 ml Output Urine Total 0 ml # Voids 2 # Bowel Movements 1 1 Laboratory Tests Test 02/20/18 04:15 White Blood Count 4.9 K/UL (4.8-10.8) Red Blood Count 2.39 M/UL (4.70-6.10) L Hemoglobin 8.1 G/DL (14.2-18.0) L Hematocrit 22.2 % (42.0-52.0) L Mean Corpuscular Volume 93 FL (80-99) Mean Corpuscular Hemoglobin 34.1 PG (27.0-31.0) H Mean Corpuscular Hemoglobin Concent 36.7 G/DL (32.0-36.0) H Red Cell Distribution Width 16.6 % (11.6-14.8) H Platelet Count 84 K/UL (150-450) L Mean Platelet Volume 6.8 FL (6.5-10.1) Neutrophils (%) (Auto) % (45.0-75.0) Lymphocytes (%) (Auto) % (20.0-45.0) Monocytes (%) (Auto) % (1.0-10.0) Eosinophils (%) (Auto) % (0.0-3.0) Basophils (%) (Auto) % (0.0-2.0) Differential Total Cells Counted 100 Neutrophils % (Manual) 75 % (45-75) Lymphocytes % (Manual) 15 % (20-45) L Monocytes % (Manual) 6 % (1-10) Eosinophils % (Manual) 4 % (0-3) H Basophils % (Manual) 0 % (0-2) Band Neutrophils 0 % (0-8) Platelet Estimate Decreased L Platelet Morphology Normal Anisocytosis 1+ Prothrombin Time 33.8 SEC (9.30-11.50) H Prothromb Time International Ratio 3.2 (0.9-1.1) H Sodium Level 139 MMOL/L (136-145) Potassium Level 4.0 MMOL/L (3.5-5.1) Chloride Level 96 MMOL/L (98-107) L Carbon Dioxide Level 34 MMOL/L (21-32) H Anion Gap 9 mmol/L (5-15) Blood Urea Nitrogen 90 mg/dL (7-18) H Creatinine 8.9 MG/DL (0.55-1.30) H Estimat Glomerular Filtration Rate 6.0 mL/min (>60) Glucose Level 108 MG/DL (74-106) H Calcium Level 7.5 MG/DL (8.5-10.1) L Phosphorus Level 9.8 MG/DL (2.5-4.9) H Magnesium Level 2.1 MG/DL (1.8-2.4) C-Reactive Protein, Quantitative Pending Height (Feet): 5 Height (Inches): 7.00 Weight (Pounds): 123 General Appearance: WD/WN, no apparent distress, alert Cardiovascular: normal rate Respiratory/Chest: normal breath sounds, no respiratory distress Abdominal Exam: normal bowel sounds, non tender, soft Extremities: normal range of motion, non-tender Freya Aldana NJahPJah February 20, 2018 10:47
--- NOTE | 2018-02-20 11:36 | Pulmonology Progress Note ---
Assessment/Plan Problems: (1) Acute respiratory failure (2) ESRF (end stage renal failure) (3) Pulmonary edema (4) DVT (deep venous thrombosis) Assessment/Plan on venturi mask cxr from 02/19 reviewed HD by head pumper respiratory treatment titrate fio2 to sat of 92% s/p one unit of blood yesterday check Hemoglobin, remains around 7 on coumadin, INR is 3.2 on Epogen and Folic acid as well all meds reviewed Subjective ROS Limited/Unobtainable: No Interval Events: getting dialyzed Constitutional: Reports: no symptoms Allergies: Coded Allergies: No Known Allergies (Unverified , 02/02/18) Objective Last 24 Hour Vital Signs Date Time Temp Pulse Resp B/P (MAP) Pulse Ox O2 Delivery O2 Flow Rate FiO2 02/20/18 10:35 Nasal Cannula 02/20/18 10:35 Nasal Cannula 02/20/18 08:00 68 02/20/18 08:00 97.0 65 20 137/70 95 Nasal Cannula 2.0 97.0 02/20/18 06:47 143/71 02/20/18 04:21 63 02/20/18 04:00 97.7 65 18 143/71 96 97.7 02/20/18 00:10 63 02/20/18 00:00 97.8 67 19 141/76 96 97.8 02/19/18 21:15 138/68 02/19/18 21:14 138/68 02/19/18 20:00 97.9 66 20 138/68 97 Venturi Mask 10.0 45 97.9 02/19/18 19:27 74 18 100 Nasal Cannula 4.0 36 02/19/18 19:25 65 02/19/18 19:20 71 18 95 Nasal Cannula 4.0 36 02/19/18 19:02 96 Nasal Cannula 4.0 36 02/19/18 19:02 Nasal Cannula 4.0 36 02/19/18 16:00 70 02/19/18 16:00 98.1 70 21 128/54 97 Venturi Mask 10.0 45 98.1 02/19/18 15:00 97.4 02/19/18 14:55 97 Nasal Cannula 4.0 36 02/19/18 14:00 118/62 02/19/18 14:00 118/62 02/19/18 13:21 73 20 100 Venturi Mask 10.0 45 02/19/18 13:10 74 18 96 Venturi Mask 10.0 45 02/19/18 12:34 97.4 02/19/18 12:00 97.4 71 20 118/62 98 Venturi Mask 10.0 45 97.4 02/19/18 12:00 70 Intake and Output 02/19/18 02/20/18 19:00 07:00 Intake Total 400 ml 150 ml Output Total 0 ml Balance 400 ml 150 ml Intake Oral 400 ml Other 150 ml Output Urine Total 0 ml # Voids 2 # Bowel Movements 1 1 Objective General Appearance: WD/WN HEENT: normocephalic, atraumatic Respiratory/Chest: chest wall non-tender, lungs clear Cardiovascular: normal peripheral pulses, normal rate, regular rhythm Abdomen: normal bowel sounds, soft, non tender, no organomegaly, non distended Extremities: no cyanosis, no clubbing, no edema Skin: no rash, no lesions Neurologic/Psychiatric: management sme II-XII grossly normal Laboratory Tests 02/20/18 04:15: White Blood Count 4.9, Red Blood Count 2.39L, Hemoglobin 8.1L, Hematocrit 22.2L , Mean Corpuscular Volume 93, Mean Corpuscular Hemoglobin 34.1H, Mean Corpuscular Hemoglobin Concent 36.7H, Red Cell Distribution Width 16.6H, Platelet Count 84L, Mean Platelet Volume 6.8, Neutrophils (%) (Auto) , Lymphocytes (%) (Auto) , Monocytes (%) (Auto) , Eosinophils (%) (Auto) , Basophils (%) (Auto) , Differential Total Cells Counted 100, Neutrophils % ( Manual) 75, Lymphocytes % (Manual) 15L, Monocytes % (Manual) 6, Eosinophils % ( Manual) 4H, Basophils % (Manual) 0, Band Neutrophils 0, Platelet Estimate DecreasedL, Platelet Morphology Normal, Anisocytosis 1+, Prothrombin Time 33.8H , Prothromb Time International Ratio 3.2H, Sodium Level 139, Potassium Level 4.0 , Chloride Level 96L, Carbon Dioxide Level 34H, Anion Gap 9, Blood Urea Nitrogen 90H, Creatinine 8.9H, Estimat Glomerular Filtration Rate 6.0, Glucose Level 108H, Calcium Level 7.5L, Phosphorus Level 9.8H, Magnesium Level 2.1, C- Reactive Protein, Quantitative 24.3H Current Medications Medications (Trade) Dose Ordered Sig/Blessing Route PRN Reason Start Time Stop Time Status Last Admin Dose Admin Acetaminophen (Tylenol) 500 mg 3XW PRN ORAL WITH DIALYSIS 02/20/18 09:00 03/10/18 17:59 02/20/18 09:34 Amlodipine Besylate (Norvasc) 10 mg DAILY ORAL 02/19/18 09:00 03/05/18 11:14 02/19/18 09:59 Clonidine HCl (Catapres Tab) 0.1 mg EVERY 8 HOURS PRN ORAL FOR BP > 160. 02/20/18 05:45 03/22/18 05:44 Diphenhydramine HCl (Benadryl) 50 mg Q6H PRN ORAL Itching 02/19/18 08:00 03/15/18 07:59 02/19/18 22:42 Docusate Sodium (Colace) 100 mg TID ORAL 02/20/18 13:00 03/22/18 12:59 Epoetin Alfonzo (Procrit (for ESRD on dialysis)) 10,000 units SUN-SUN-SUN SUBQ 02/20/18 21:00 03/20/18 20:59 Folic Acid (Folate) 1 mg DAILY ORAL 02/19/18 09:00 03/06/18 08:59 02/19/18 10:00 Gabapentin (Neurontin) 300 mg THREE TIMES A DAY ORAL 02/19/18 09:00 03/07/18 08:59 02/19/18 18:44 Haloperidol Lactate (Haldol) 5 mg Q4H PRN IM AGITATION 02/19/18 08:00 03/15/18 07:59 02/19/18 22:42 Hydralazine HCl (Apresoline) 25 mg Q8HR ORAL 02/19/18 14:00 03/05/18 12:59 02/20/18 06:47 Lansoprazole (Prevacid) 30 mg DAILY ORAL 02/19/18 09:00 03/11/18 10:59 02/19/18 10:00 Levalbuterol HCl (Xopenex) 1.25 mg TIDRT HHN 02/19/18 08:00 02/22/18 07:59 02/19/18 19:29 Lorazepam (Ativan) 1 mg Q2H PRN ORAL For Seizures 02/19/18 08:00 02/21/18 07:59 Nicotine (Nicoderm) 1 patch Q24H TDERMAL 02/19/18 10:00 03/20/18 09:59 02/20/18 09:34 Oxycodone/ Acetaminophen (Percocet 5-325) 1 tab Q4H PRN ORAL Severe Pain (Pain Scale 7-10) 02/20/18 10:00 02/27/18 09:59 Prochlorperazine (Compazine) 10 mg Q6H PRN IVP Nausea & Vomiting 02/19/18 08:00 03/09/18 07:59 02/20/18 03:40 Quetiapine Fumarate (SEROquel) 25 mg QHS ORAL 02/19/18 21:00 03/07/18 20:59 02/19/18 21:13 Sevelamer Carbonate (Renvela) 2,400 mg THREE TIMES A DAY ORAL 02/20/18 13:00 03/22/18 12:59 Warfarin Sodium (Coumadin per pharmacy) 1 ea DAILY PRN MISC Per rx protocol 02/19/18 09:00 03/10/18 17:59 Zolpidem Tartrate (Ambien) 5 mg HSPRN PRN ORAL Insomnia 02/19/18 21:00 02/20/18 20:59 Clement Mcleod MD February 20, 2018 11:36
[2018-02-20 12:00] VITALS: BP 101/54
[2018-02-20] MEDS: Docusate 100mg cap ORAL SCH ×2 (13:02→17:39)
--- NOTE | 2018-02-20 14:46 | General Progress Note ---
Assessment/Plan Problem List: (1) Abnormal laboratory test result ICD Codes: R89.9 - Unspecified abnormal finding in specimens from other organs , systems and tissues SNOMED: 268018022 (2) ESRD (end stage renal disease) on dialysis ICD Codes: N18.6 - End stage renal disease; Z99.2 - Dependence on renal dialysis SNOMED: 487070962 (3) Hypertension, uncontrolled ICD Codes: I10 - Essential (primary) hypertension SNOMED: 31296035, 40476942 (4) Symptomatic anemia ICD Codes: D64.9 - Anemia, unspecified SNOMED: 952371578 (5) Acute hyperkalemia ICD Codes: E87.5 - Hyperkalemia SNOMED: 1242477 (6) DVT (deep venous thrombosis) ICD Codes: I82.409 - Acute embolism and thrombosis of unspecified deep veins of unspecified lower extremity SNOMED: 278778360 (7) SOB (shortness of breath) ICD Codes: R06.02 - Shortness of breath SNOMED: 711333671 (8) Respiratory failure ICD Codes: J96.90 - Respiratory failure, unspecified, unspecified whether with hypoxia or hypercapnia SNOMED: 785302695 Status: unchanged Assessment/Plan ot pt diet o2 pulm tx gi/heme f/u anticoag pulm cbc bmp am ltach eval Subjective Constitutional: Reports: weakness Allergies: Coded Allergies: No Known Allergies (Unverified , 02/02/18) All Systems: reviewed and negative except above Subjective sleepy calm Objective Last 24 Hour Vital Signs Date Time Temp Pulse Resp B/P (MAP) Pulse Ox O2 Delivery O2 Flow Rate FiO2 02/20/18 14:02 Nasal Cannula 02/20/18 14:00 Nasal Cannula 02/20/18 12:00 Nasal Cannula 2.0 02/20/18 12:00 61 02/20/18 10:35 Nasal Cannula 02/20/18 10:35 Nasal Cannula 02/20/18 09:53 Nasal Cannula 4.0 36 02/20/18 09:51 97 Nasal Cannula 4.0 36 02/20/18 08:55 Nasal Cannula 2.0 02/20/18 08:00 68 02/20/18 08:00 97.0 65 20 137/70 95 Nasal Cannula 2.0 97.0 02/20/18 06:47 143/71 02/20/18 04:21 63 02/20/18 04:00 97.7 65 18 143/71 96 97.7 02/20/18 00:10 63 02/20/18 00:00 97.8 67 19 141/76 96 97.8 02/19/18 21:15 138/68 02/19/18 21:14 138/68 02/19/18 20:00 97.9 66 20 138/68 97 Venturi Mask 10.0 45 97.9 02/19/18 19:27 74 18 100 Nasal Cannula 4.0 36 02/19/18 19:25 65 02/19/18 19:20 71 18 95 Nasal Cannula 4.0 36 02/19/18 19:02 96 Nasal Cannula 4.0 36 02/19/18 19:02 Nasal Cannula 4.0 36 02/19/18 16:00 70 02/19/18 16:00 98.1 70 21 128/54 97 Venturi Mask 10.0 45 98.1 02/19/18 15:00 97.4 02/19/18 14:55 97 Nasal Cannula 4.0 36 Intake and Output 02/19/18 02/20/18 19:00 07:00 Intake Total 400 ml 150 ml Output Total 0 ml Balance 400 ml 150 ml Intake Oral 400 ml Other 150 ml Output Urine Total 0 ml # Voids 2 # Bowel Movements 1 1 Laboratory Tests 02/20/18 04:15: White Blood Count 4.9, Red Blood Count 2.39L, Hemoglobin 8.1L, Hematocrit 22.2L , Mean Corpuscular Volume 93, Mean Corpuscular Hemoglobin 34.1H, Mean Corpuscular Hemoglobin Concent 36.7H, Red Cell Distribution Width 16.6H, Platelet Count 84L, Mean Platelet Volume 6.8, Neutrophils (%) (Auto) , Lymphocytes (%) (Auto) , Monocytes (%) (Auto) , Eosinophils (%) (Auto) , Basophils (%) (Auto) , Differential Total Cells Counted 100, Neutrophils % ( Manual) 75, Lymphocytes % (Manual) 15L, Monocytes % (Manual) 6, Eosinophils % ( Manual) 4H, Basophils % (Manual) 0, Band Neutrophils 0, Platelet Estimate DecreasedL, Platelet Morphology Normal, Anisocytosis 1+, Prothrombin Time 33.8H , Prothromb Time International Ratio 3.2H, Sodium Level 139, Potassium Level 4.0 , Chloride Level 96L, Carbon Dioxide Level 34H, Anion Gap 9, Blood Urea Nitrogen 90H, Creatinine 8.9H, Estimat Glomerular Filtration Rate 6.0, Glucose Level 108H, Calcium Level 7.5L, Phosphorus Level 9.8H, Magnesium Level 2.1, C- Reactive Protein, Quantitative 24.3H Height (Feet): 5 Height (Inches): 7.00 Weight (Pounds): 123 General Appearance: lethargic EENT: normal ENT inspection Neck: normal alignment Cardiovascular: normal peripheral pulses, normal rate, regular rhythm Respiratory/Chest: chest wall non-tender, decreased breath sounds Abdomen: normal bowel sounds, non tender, soft Extremities: normal inspection Edema: no edema noted Arm (L), no edema noted Arm (R), no edema noted Leg (L), no edema noted Leg (R), no edema noted Pedal (L), no edema noted Pedal (R), no edema noted Generalized Neurologic: motor weakness Skin: normal pigmentation, warm/dry PEDRO HUTSON February 20, 2018 14:46
[2018-02-20] MEDS ORDERED: Tubing Blood Filter IV ONE (15:23)
[2018-02-20] MEDS ORDERED: NS 500ML ONE (15:23)
[2018-02-20] MEDS ORDERED: D5W 275ml ONE (15:23)
[2018-02-20 16:00] VITALS: BP 136/66
[2018-02-20] MEDS: LORazepam 1mg tab ORAL PRN ×2 (17:44→23:46)
--- NOTE | 2018-02-20 19:10 | Cardiology Progress Note ---
Assessment/Plan Assessment/Plan 1. Hypertension. 2. End-stage renal disease, on hemodialysis. 3. Anemia. 4. History of GI bleed secondary to AVMs. 5. Acute deep venous thrombosis, left leg. 6. History of femoral neck fracture 7. acute diastolic heart failure ctpa neg for pe has ivc filter inplace already dilaysis / uf today tele noted not a candidate or chronic anticoag due to recurrent anemia dialysis /may need more UF trop neg nwo on room air wants to go home tele neg ambualte dc planning Subjective Cardiovascular: Denies: chest pain, lightheadedness Respiratory: Denies: shortness of breath Gastrointestinal/Abdominal: Denies: abdominal pain Objective Last 24 Hour Vital Signs Date Time Temp Pulse Resp B/P (MAP) Pulse Ox O2 Delivery O2 Flow Rate FiO2 02/20/18 16:00 96.0 75 18 136/66 95 Room Air 96.0 02/20/18 16:00 78 02/20/18 14:02 Nasal Cannula 02/20/18 14:00 Nasal Cannula 02/20/18 12:00 Nasal Cannula 2.0 02/20/18 12:00 97.0 64 20 101/54 95 Nasal Cannula 2.0 97.0 02/20/18 12:00 61 02/20/18 10:35 Nasal Cannula 02/20/18 10:35 Nasal Cannula 02/20/18 09:53 Nasal Cannula 4.0 36 02/20/18 09:51 97 Nasal Cannula 4.0 36 02/20/18 08:55 Nasal Cannula 2.0 02/20/18 08:00 68 02/20/18 08:00 97.0 65 20 137/70 95 Nasal Cannula 2.0 97.0 02/20/18 06:47 143/71 02/20/18 04:21 63 02/20/18 04:00 97.7 65 18 143/71 96 97.7 02/20/18 00:10 63 02/20/18 00:00 97.8 67 19 141/76 96 97.8 02/19/18 21:15 138/68 02/19/18 21:14 138/68 02/19/18 20:00 97.9 66 20 138/68 97 Venturi Mask 10.0 45 97.9 02/19/18 19:27 74 18 100 Nasal Cannula 4.0 36 02/19/18 19:25 65 02/19/18 19:20 71 18 95 Nasal Cannula 4.0 36 General Appearance: no apparent distress, alert Neck: supple Cardiovascular: normal rate, regular rhythm Respiratory/Chest: lungs clear Abdomen: normal bowel sounds, non tender, soft Extremities: no swelling Intake and Output 02/19/18 02/20/18 19:00 07:00 Intake Total 400 ml 150 ml Output Total 0 ml Balance 400 ml 150 ml Intake Oral 400 ml Other 150 ml Output Urine Total 0 ml # Voids 2 # Bowel Movements 1 1 Laboratory Tests Test 02/20/18 04:15 White Blood Count 4.9 K/UL (4.8-10.8) Red Blood Count 2.39 M/UL (4.70-6.10) L Hemoglobin 8.1 G/DL (14.2-18.0) L Hematocrit 22.2 % (42.0-52.0) L Mean Corpuscular Volume 93 FL (80-99) Mean Corpuscular Hemoglobin 34.1 PG (27.0-31.0) H Mean Corpuscular Hemoglobin Concent 36.7 G/DL (32.0-36.0) H Red Cell Distribution Width 16.6 % (11.6-14.8) H Platelet Count 84 K/UL (150-450) L Mean Platelet Volume 6.8 FL (6.5-10.1) Neutrophils (%) (Auto) % (45.0-75.0) Lymphocytes (%) (Auto) % (20.0-45.0) Monocytes (%) (Auto) % (1.0-10.0) Eosinophils (%) (Auto) % (0.0-3.0) Basophils (%) (Auto) % (0.0-2.0) Differential Total Cells Counted 100 Neutrophils % (Manual) 75 % (45-75) Lymphocytes % (Manual) 15 % (20-45) L Monocytes % (Manual) 6 % (1-10) Eosinophils % (Manual) 4 % (0-3) H Basophils % (Manual) 0 % (0-2) Band Neutrophils 0 % (0-8) Platelet Estimate Decreased L Platelet Morphology Normal Anisocytosis 1+ Prothrombin Time 33.8 SEC (9.30-11.50) H Prothromb Time International Ratio 3.2 (0.9-1.1) H Sodium Level 139 MMOL/L (136-145) Potassium Level 4.0 MMOL/L (3.5-5.1) Chloride Level 96 MMOL/L (98-107) L Carbon Dioxide Level 34 MMOL/L (21-32) H Anion Gap 9 mmol/L (5-15) Blood Urea Nitrogen 90 mg/dL (7-18) H Creatinine 8.9 MG/DL (0.55-1.30) H Estimat Glomerular Filtration Rate 6.0 mL/min (>60) Glucose Level 108 MG/DL (74-106) H Calcium Level 7.5 MG/DL (8.5-10.1) L Phosphorus Level 9.8 MG/DL (2.5-4.9) H Magnesium Level 2.1 MG/DL (1.8-2.4) C-Reactive Protein, Quantitative 24.3 mg/dL (0.00-0.90) H JACINTO CORONA February 20, 2018 19:10
[2018-02-20 20:00] VITALS: BP 152/72
[2018-02-20] MEDS ORDERED: Epogen (for ESRD on dialysis) SUBQ SCH (21:00)
--- NOTE | 2018-02-20 23:01 | General Progress Note ---
Assessment/Plan Assessment/Plan IMPRESSION: 1. Acute deep venous thrombosis, left lower extremities. 2. Status post inferior vena cava filter placement. 3. Anticoagulation with Coumadin. 4. Anticoagulation with IV heparin. 5. History of gastrointestinal bleed. 6. Anemia of kidney disease. --> On Hemodialysis by building manager 7. Anemia of chronic disease. --> S/P blood transfusion --> Hemoglobin levels >7 since transfusion 8. Decreased hemoglobin and hematocrit, rule out gastrointestinal bleed. 9. End-stage renal disease, hemodialysis dependent. 10. History of femoral neck fracture. 11. Hypertension. 12. Acute respiratory failure. 13. Pulmonary edema. 14. Malnutrition. 15. Failure to thrive. 16. Chronic obstructive pulmonary disease. 17. History of polysubstance abuse. 18. Benign prostatic hypertrophy. 19. Fluid overload. 20. History of hepatitis C. 21. History of posttraumatic stress disorder. 22. History of smoking. RECOMMENDATIONS: 1. Watch count. 2. Watch coagulopathy. 3. PRBC transfusion p.r.n. basis. 4. Heparin IV. 5. Coumadin p.o. 6. Procrit subcutaneously. 7. Iron IV. 8. Cardiology followup. 9. Pulmonary followup. 10. Skin care. 11. Nutrition. 12. Discussed with the staff. Subjective Date patient seen: February 20, 2018 Constitutional: Denies: no symptoms, chills, diaphoresis, fever, malaise, weakness, other HEENT: Denies: no symptoms, eye pain, blurred vision, tearing, double vision, ear pain, ear discharge, nose pain, nose congestion, throat pain, throat swelling, mouth pain, mouth swelling, other Cardiovascular: Denies: no symptoms, chest pain, edema, irregular heart rate, lightheadedness, palpitations, syncope, other Respiratory: Denies: no symptoms, cough, orthopnea, shortness of breath, SOB with excertion, SOB at rest, sputum, stridor, wheezing, other Gastrointestinal/Abdominal: Denies: no symptoms, abdomen distended, abdominal pain, black stools, tarry stools, blood in stool, constipated, diarrhea, difficulty swallowing, nausea, poor appetite, poor fluid intake, rectal bleeding , vomiting, other Genitourinary: Denies: no symptoms, burning, discharge, frequency, flank pain, hematuria, incontinence, pain, urgency, other Neurologic/Psychiatric: Denies: no symptoms, anxiety, depressed, emotional problems, headache, numbness, paresthesia, pre-existing deficit, seizure, tingling, tremors, weakness, other Hematologic/Lymphatic: Reports: anemia Allergies: Coded Allergies: No Known Allergies (Unverified , 02/02/18) Subjective S/P HD. With venturi mask. S/P IVC filter. No acute events. Objective Last 24 Hour Vital Signs Date Time Temp Pulse Resp B/P (MAP) Pulse Ox O2 Delivery O2 Flow Rate FiO2 02/20/18 20:53 152/72 02/20/18 19:41 76 16 96 Nasal Cannula 4.0 36 02/20/18 19:34 94 Nasal Cannula 4.0 36 02/20/18 19:34 Nasal Cannula 4.0 36 02/20/18 19:33 73 02/20/18 19:33 74 18 92 Nasal Cannula 4.0 36 02/20/18 16:00 96.0 75 18 136/66 95 Room Air 96.0 02/20/18 16:00 78 02/20/18 14:02 Nasal Cannula 02/20/18 14:00 Nasal Cannula 02/20/18 12:00 Nasal Cannula 2.0 02/20/18 12:00 97.0 64 20 101/54 95 Nasal Cannula 2.0 97.0 02/20/18 12:00 61 02/20/18 10:35 Nasal Cannula 02/20/18 10:35 Nasal Cannula 02/20/18 09:53 Nasal Cannula 4.0 36 02/20/18 09:51 97 Nasal Cannula 4.0 36 02/20/18 08:55 Nasal Cannula 2.0 02/20/18 08:00 68 02/20/18 08:00 97.0 65 20 137/70 95 Nasal Cannula 2.0 97.0 02/20/18 06:47 143/71 02/20/18 04:21 63 02/20/18 04:00 97.7 65 18 143/71 96 97.7 02/20/18 00:10 63 02/20/18 00:00 97.8 67 19 141/76 96 97.8 Intake and Output 02/19/18 02/20/18 19:00 07:00 Intake Total 400 ml 150 ml Output Total 0 ml Balance 400 ml 150 ml Intake Oral 400 ml Other 150 ml Output Urine Total 0 ml # Voids 2 # Bowel Movements 1 1 Laboratory Tests 02/20/18 04:15: White Blood Count 4.9, Red Blood Count 2.39L, Hemoglobin 8.1L, Hematocrit 22.2L , Mean Corpuscular Volume 93, Mean Corpuscular Hemoglobin 34.1H, Mean Corpuscular Hemoglobin Concent 36.7H, Red Cell Distribution Width 16.6H, Platelet Count 84L, Mean Platelet Volume 6.8, Neutrophils (%) (Auto) , Lymphocytes (%) (Auto) , Monocytes (%) (Auto) , Eosinophils (%) (Auto) , Basophils (%) (Auto) , Differential Total Cells Counted 100, Neutrophils % ( Manual) 75, Lymphocytes % (Manual) 15L, Monocytes % (Manual) 6, Eosinophils % ( Manual) 4H, Basophils % (Manual) 0, Band Neutrophils 0, Platelet Estimate DecreasedL, Platelet Morphology Normal, Anisocytosis 1+, Prothrombin Time 33.8H , Prothromb Time International Ratio 3.2H, Sodium Level 139, Potassium Level 4.0 , Chloride Level 96L, Carbon Dioxide Level 34H, Anion Gap 9, Blood Urea Nitrogen 90H, Creatinine 8.9H, Estimat Glomerular Filtration Rate 6.0, Glucose Level 108H, Calcium Level 7.5L, Phosphorus Level 9.8H, Magnesium Level 2.1, C- Reactive Protein, Quantitative 24.3H Height (Feet): 5 Height (Inches): 7.00 Weight (Pounds): 123 General Appearance: no apparent distress Neck: supple Cardiovascular: normal peripheral pulses, normal rate Respiratory/Chest: chest wall non-tender, lungs clear Abdomen: normal bowel sounds, non tender Tristen Lewis MD February 20, 2018 23:01
[2018-02-21] VITALS (7 sets, daily range): BP systolic 137–159; BP diastolic 62–80
[2018-02-21] MEDS: oxyCODONE HCL/Acetaminophen 5/325mg ORAL PRN ×4 (02:40→21:21)
[2018-02-21 04:29] LABS: HEMATOCRIT 23.7 % (42.0-52.0); HEMOGLOBIN 7.8 G/DL (14.2-18.0); MEAN CORPUSCULAR VOLUME 95 FL (80-99); PLATELET COUNT 87 K/UL (150-450); RED CELL DISTRIBUTION WIDTH 17.2 % (11.6-14.8); WHITE BLOOD COUNT 5.6 K/UL (4.8-10.8)
[2018-02-21 04:39] LABS: INR 2.4 (0.9-1.1)
[2018-02-21 05:16] LABS: ALANINE AMINOTRANSFERASE 50 U/L (12-78); ALBUMIN/GLOBULIN RATIO 0.7 (1.0-2.7); ALKALINE PHOSPHATASE 309 U/L (46-116); ANION GAP 8 mmol/L (5-15); ASPARTATE AMINO TRANSFERASE 40 U/L (15-37); BILIRUBIN,TOTAL 0.9 MG/DL (0.2-1.0); BLOOD UREA NITROGEN 60 mg/dL (7-18); CALCIUM 7.2 MG/DL (8.5-10.1); CARBON DIOXIDE 35 MMOL/L (21-32); CHLORIDE 99 MMOL/L (98-107); CREATININE 6.8 MG/DL (0.55-1.30); POTASSIUM 3.4 MMOL/L (3.5-5.1); SODIUM 142 MMOL/L (136-145)
[2018-02-21] MEDS: HydrALAZINE 25mg tab ORAL SCH ×3 (06:16→21:21)
[2018-02-21] MEDS: Levalbuterol Inh UD 1.25mg/0.5ml HHN SCH ×2 (07:00→20:05)
[2018-02-21] MEDS: Docusate 100mg cap ORAL SCH ×3 (08:14→18:35)
--- NOTE | 2018-02-21 08:44 | General Progress Note ---
Assessment/Plan Assessment/Plan (1) Right hip pain (2) Right hip Fracture (3) S/p ORIF of right hip Pt will continued on Percocet HOLD OPIOIDS FOR OVERSEDATION OR SBP<90 OR DBP<60 OR O2SAT<92% OR RR<12 D/w Dr. Childers he concurred. Subjective Date patient seen: February 21, 2018 Time patient seen: 07:00 - am Allergies: Coded Allergies: No Known Allergies (Unverified , 02/02/18) Subjective Constitutional: Reports: weakness HEENT: Reports: no symptoms Cardiovascular: Reports: no symptoms Respiratory: Reports: no symptoms Gastrointestinal/Abdominal: Reports: no symptoms Genitourinary: Reports: no symptoms Neurologic/Psychiatric: Reports: weakness Endocrine: Reports: no symptoms Hematologic/Lymphatic: Reports: no symptoms Subjective: Patient continues to lay in bed ambulates with cane slight confusion at time had dialysis yesterday. One Percocet given today. Objective Last 24 Hour Vital Signs Date Time Temp Pulse Resp B/P (MAP) Pulse Ox O2 Delivery O2 Flow Rate FiO2 02/21/18 08:13 82 149/74 02/21/18 08:00 96.3 82 20 149/74 97 Room Air 96.3 02/21/18 06:52 79 18 100 Nasal Cannula 4.0 36 02/21/18 06:45 Nasal Cannula 4.0 36 02/21/18 06:45 78 18 99 Nasal Cannula 4.0 36 02/21/18 06:45 99 Nasal Cannula 4.0 36 02/21/18 06:16 154/74 02/21/18 04:00 97.3 75 20 154/74 96 Nasal Cannula 2.0 97.3 02/21/18 03:35 77 02/21/18 00:00 97.7 77 22 137/62 96 Nasal Cannula 2.0 97.7 02/20/18 23:25 77 02/20/18 20:53 152/72 02/20/18 20:00 97.7 79 18 152/72 100 Room Air 97.7 02/20/18 19:41 76 16 96 Nasal Cannula 4.0 36 02/20/18 19:34 94 Nasal Cannula 4.0 36 02/20/18 19:34 Nasal Cannula 4.0 36 02/20/18 19:33 73 02/20/18 19:33 74 18 92 Nasal Cannula 4.0 36 02/20/18 16:00 96.0 75 18 136/66 95 Room Air 96.0 02/20/18 16:00 78 02/20/18 14:02 Nasal Cannula 02/20/18 14:00 Nasal Cannula 02/20/18 12:00 Nasal Cannula 2.0 02/20/18 12:00 97.0 64 20 101/54 95 Nasal Cannula 2.0 97.0 02/20/18 12:00 61 02/20/18 10:35 Nasal Cannula 02/20/18 10:35 Nasal Cannula 02/20/18 09:53 Nasal Cannula 4.0 36 02/20/18 09:51 97 Nasal Cannula 4.0 36 02/20/18 08:55 Nasal Cannula 2.0 Intake and Output 02/20/18 02/21/18 19:00 07:00 Intake Total 250 ml 200 ml Output Total 2117 ml 0 ml Balance -1867 ml 200 ml Intake Oral 250 ml 200 ml Output Urine Total 0 ml Hemodialysis UF 2117 ml # Voids 2 # Bowel Movements 4 Laboratory Tests 02/21/18 03:30: White Blood Count 5.6, Red Blood Count 2.50L, Hemoglobin 7.8L, Hematocrit 23.7L , Mean Corpuscular Volume 95, Mean Corpuscular Hemoglobin 31.2H, Mean Corpuscular Hemoglobin Concent 32.9, Red Cell Distribution Width 17.2H, Platelet Count 87L, Mean Platelet Volume 5.5L, Neutrophils (%) (Auto) , Lymphocytes (%) (Auto) , Monocytes (%) (Auto) , Eosinophils (%) (Auto) , Basophils (%) (Auto) , Differential Total Cells Counted 100, Neutrophils % ( Manual) 72, Lymphocytes % (Manual) 17L, Monocytes % (Manual) 5, Eosinophils % ( Manual) 4H, Basophils % (Manual) 0, Band Neutrophils 2, Platelet Estimate DecreasedL, Platelet Morphology Normal, Red Blood Cell Morphology Normal, Prothrombin Time 25.5H, Prothromb Time International Ratio 2.4H, Sodium Level 142, Potassium Level 3.4L, Chloride Level 99, Carbon Dioxide Level 35H, Anion Gap 8, Blood Urea Nitrogen 60H, Creatinine 6.8H, Estimat Glomerular Filtration Rate 8.2, Glucose Level 106, Uric Acid 5.3, Calcium Level 7.2L, Phosphorus Level 6.0H, Magnesium Level 2.1, Total Bilirubin 0.9, Aspartate Amino Transf ( AST/SGOT) 40H, Alanine Aminotransferase (ALT/SGPT) 50, Alkaline Phosphatase 309H , Troponin I 0.011, Pro-B-Type Natriuretic Peptide 19544A, Total Protein 7.2, Albumin 3.0L, Globulin 4.2, Albumin/Globulin Ratio 0.7L Height (Feet): 5 Height (Inches): 7.00 Weight (Pounds): 131 Objective Neck: non-tender, normal alignment, supple, normal inspection Respiratory/Chest: decreased breath sounds Cardiovascular/Chest: normal rate, regular rhythm Abdomen: non tender, soft, no organomegaly Extremities: inflammation - right hip tenderness to palpation Skin Exam: normal pigmentation, warm/dry KANWAL CURRAN P.Raj February 21, 2018 08:44
--- NOTE | 2018-02-21 11:09 | GI Progress Note ---
Assessment/Plan Problems: (1) Abnormal LFTs ICD Codes: R94.5 - Abnormal results of liver function studies SNOMED: 245103913 (2) Symptomatic anemia ICD Codes: D64.9 - Anemia, unspecified SNOMED: 445799305 (3) ESRD (end stage renal disease) on dialysis ICD Codes: N18.6 - End stage renal disease; Z99.2 - Dependence on renal dialysis SNOMED: 478823942 Status: stable Status Narrative Discussed with Dr. Matos. Assessment/Plan hx of EGD/colonoscopy 3 months ago per patient, cannot recall location. iron panel WNL OB stool negative fu nephro recs monitor H&H, prn transfusions ppi thiamine fu labs outpatient GI procedures The patient was seen and examined at bedside and all new and available data was reviewed in the patients chart. I agree with the above findings, impression and plan. (Patient seen earlier today. Signature stamp does not reflect patient encounter time.). - Tushar Matos MD Subjective Subjective denies abdominal pain had EGD/colonoscopy x3 months Objective Last 24 Hour Vital Signs Date Time Temp Pulse Resp B/P (MAP) Pulse Ox O2 Delivery O2 Flow Rate FiO2 02/21/18 08:32 85 02/21/18 08:13 82 149/74 02/21/18 08:00 96.3 82 20 149/74 97 Room Air 96.3 02/21/18 06:52 79 18 100 Nasal Cannula 4.0 36 02/21/18 06:45 Nasal Cannula 4.0 36 02/21/18 06:45 78 18 99 Nasal Cannula 4.0 36 02/21/18 06:45 99 Nasal Cannula 4.0 36 02/21/18 06:16 154/74 02/21/18 04:00 97.3 75 20 154/74 96 Nasal Cannula 2.0 97.3 02/21/18 03:35 77 02/21/18 00:00 97.7 77 22 137/62 96 Nasal Cannula 2.0 97.7 02/20/18 23:25 77 02/20/18 20:53 152/72 02/20/18 20:00 97.7 79 18 152/72 100 Room Air 97.7 02/20/18 19:41 76 16 96 Nasal Cannula 4.0 36 02/20/18 19:34 94 Nasal Cannula 4.0 36 02/20/18 19:34 Nasal Cannula 4.0 36 02/20/18 19:33 73 02/20/18 19:33 74 18 92 Nasal Cannula 4.0 36 02/20/18 16:00 96.0 75 18 136/66 95 Room Air 96.0 02/20/18 16:00 78 02/20/18 14:02 Nasal Cannula 02/20/18 14:00 Nasal Cannula 02/20/18 12:00 Nasal Cannula 2.0 02/20/18 12:00 97.0 64 20 101/54 95 Nasal Cannula 2.0 97.0 02/20/18 12:00 61 Intake and Output 02/20/18 02/21/18 19:00 07:00 Intake Total 250 ml 200 ml Output Total 2117 ml 0 ml Balance -1867 ml 200 ml Intake Oral 250 ml 200 ml Output Urine Total 0 ml Hemodialysis UF 2117 ml # Voids 2 # Bowel Movements 4 Laboratory Tests Test 02/21/18 03:30 White Blood Count 5.6 K/UL (4.8-10.8) Red Blood Count 2.50 M/UL (4.70-6.10) L Hemoglobin 7.8 G/DL (14.2-18.0) L Hematocrit 23.7 % (42.0-52.0) L Mean Corpuscular Volume 95 FL (80-99) Mean Corpuscular Hemoglobin 31.2 PG (27.0-31.0) H Mean Corpuscular Hemoglobin Concent 32.9 G/DL (32.0-36.0) Red Cell Distribution Width 17.2 % (11.6-14.8) H Platelet Count 87 K/UL (150-450) L Mean Platelet Volume 5.5 FL (6.5-10.1) L Neutrophils (%) (Auto) % (45.0-75.0) Lymphocytes (%) (Auto) % (20.0-45.0) Monocytes (%) (Auto) % (1.0-10.0) Eosinophils (%) (Auto) % (0.0-3.0) Basophils (%) (Auto) % (0.0-2.0) Differential Total Cells Counted 100 Neutrophils % (Manual) 72 % (45-75) Lymphocytes % (Manual) 17 % (20-45) L Monocytes % (Manual) 5 % (1-10) Eosinophils % (Manual) 4 % (0-3) H Basophils % (Manual) 0 % (0-2) Band Neutrophils 2 % (0-8) Platelet Estimate Decreased L Platelet Morphology Normal Red Blood Cell Morphology Normal Prothrombin Time 25.5 SEC (9.30-11.50) H Prothromb Time International Ratio 2.4 (0.9-1.1) H Sodium Level 142 MMOL/L (136-145) Potassium Level 3.4 MMOL/L (3.5-5.1) L Chloride Level 99 MMOL/L (98-107) Carbon Dioxide Level 35 MMOL/L (21-32) H Anion Gap 8 mmol/L (5-15) Blood Urea Nitrogen 60 mg/dL (7-18) H Creatinine 6.8 MG/DL (0.55-1.30) H Estimat Glomerular Filtration Rate 8.2 mL/min (>60) Glucose Level 106 MG/DL (74-106) Uric Acid 5.3 MG/DL (2.6-7.2) Calcium Level 7.2 MG/DL (8.5-10.1) L Phosphorus Level 6.0 MG/DL (2.5-4.9) H Magnesium Level 2.1 MG/DL (1.8-2.4) Total Bilirubin 0.9 MG/DL (0.2-1.0) Aspartate Amino Transf (AST/SGOT) 40 U/L (15-37) H Alanine Aminotransferase (ALT/SGPT) 50 U/L (12-78) Alkaline Phosphatase 309 U/L (46-116) H Troponin I 0.011 ng/mL (0.000-0.056) Pro-B-Type Natriuretic Peptide 98847 pg/mL (0-125) H Total Protein 7.2 G/DL (6.4-8.2) Albumin 3.0 G/DL (3.4-5.0) L Globulin 4.2 g/dL Albumin/Globulin Ratio 0.7 (1.0-2.7) L Height (Feet): 5 Height (Inches): 7.00 Weight (Pounds): 131 General Appearance: WD/WN, no apparent distress, alert Cardiovascular: normal rate Respiratory/Chest: normal breath sounds, no respiratory distress Abdominal Exam: normal bowel sounds, non tender, soft Extremities: normal range of motion, non-tender Meliton Aldana NP February 21, 2018 11:09
--- NOTE | 2018-02-21 11:42 | Nephrology Progress Note ---
Assessment/Plan Problem List: (1) ESRD (end stage renal disease) on dialysis (2) Acute hyperkalemia (3) Hypertension, uncontrolled (4) Left leg DVT (5) Anemia in chronic kidney disease (CKD) Assessment now out of ICU in [place] ESRD, on admission missed dialysis . has high K on admission has fistula right arm Sever Anemia h/o Amyloidosis COPD Plan HD next 02/22 Transfusion as needed Kayexelate as needed BP control, meds adjusted has IVC filter add phos binders Subjective ROS Limited/Unobtainable: No Constitutional: Reports: malaise, weakness Objective Objective Last 24 Hour Vital Signs Date Time Temp Pulse Resp B/P (MAP) Pulse Ox O2 Delivery O2 Flow Rate FiO2 02/21/18 08:32 85 02/21/18 08:13 82 149/74 02/21/18 08:00 96.3 82 20 149/74 97 Room Air 96.3 02/21/18 06:52 79 18 100 Nasal Cannula 4.0 36 02/21/18 06:45 Nasal Cannula 4.0 36 02/21/18 06:45 78 18 99 Nasal Cannula 4.0 36 02/21/18 06:45 99 Nasal Cannula 4.0 36 02/21/18 06:16 154/74 02/21/18 04:00 97.3 75 20 154/74 96 Nasal Cannula 2.0 97.3 02/21/18 03:35 77 02/21/18 00:00 97.7 77 22 137/62 96 Nasal Cannula 2.0 97.7 02/20/18 23:25 77 02/20/18 20:53 152/72 02/20/18 20:00 97.7 79 18 152/72 100 Room Air 97.7 02/20/18 19:41 76 16 96 Nasal Cannula 4.0 36 02/20/18 19:34 94 Nasal Cannula 4.0 36 02/20/18 19:34 Nasal Cannula 4.0 36 02/20/18 19:33 73 02/20/18 19:33 74 18 92 Nasal Cannula 4.0 36 02/20/18 16:00 96.0 75 18 136/66 95 Room Air 96.0 02/20/18 16:00 78 02/20/18 14:02 Nasal Cannula 02/20/18 14:00 Nasal Cannula 02/20/18 12:00 Nasal Cannula 2.0 02/20/18 12:00 97.0 64 20 101/54 95 Nasal Cannula 2.0 97.0 02/20/18 12:00 61 Intake and Output 02/20/18 02/21/18 19:00 07:00 Intake Total 250 ml 200 ml Output Total 2117 ml 0 ml Balance -1867 ml 200 ml Intake Oral 250 ml 200 ml Output Urine Total 0 ml Hemodialysis UF 2117 ml # Voids 2 # Bowel Movements 4 Laboratory Tests 02/21/18 03:30: White Blood Count 5.6, Red Blood Count 2.50L, Hemoglobin 7.8L, Hematocrit 23.7L , Mean Corpuscular Volume 95, Mean Corpuscular Hemoglobin 31.2H, Mean Corpuscular Hemoglobin Concent 32.9, Red Cell Distribution Width 17.2H, Platelet Count 87L, Mean Platelet Volume 5.5L, Neutrophils (%) (Auto) , Lymphocytes (%) (Auto) , Monocytes (%) (Auto) , Eosinophils (%) (Auto) , Basophils (%) (Auto) , Differential Total Cells Counted 100, Neutrophils % ( Manual) 72, Lymphocytes % (Manual) 17L, Monocytes % (Manual) 5, Eosinophils % ( Manual) 4H, Basophils % (Manual) 0, Band Neutrophils 2, Platelet Estimate DecreasedL, Platelet Morphology Normal, Red Blood Cell Morphology Normal, Prothrombin Time 25.5H, Prothromb Time International Ratio 2.4H, Sodium Level 142, Potassium Level 3.4L, Chloride Level 99, Carbon Dioxide Level 35H, Anion Gap 8, Blood Urea Nitrogen 60H, Creatinine 6.8H, Estimat Glomerular Filtration Rate 8.2, Glucose Level 106, Uric Acid 5.3, Calcium Level 7.2L, Phosphorus Level 6.0H, Magnesium Level 2.1, Total Bilirubin 0.9, Aspartate Amino Transf ( AST/SGOT) 40H, Alanine Aminotransferase (ALT/SGPT) 50, Alkaline Phosphatase 309H , Troponin I 0.011, Pro-B-Type Natriuretic Peptide 53268S, Total Protein 7.2, Albumin 3.0L, Globulin 4.2, Albumin/Globulin Ratio 0.7L Height (Feet): 5 Height (Inches): 7.00 Weight (Pounds): 131 Cardiovascular: normal rate Respiratory/Chest: decreased breath sounds Abdomen: distended Objective no change DALTON ROSENTHAL 10, 2018 11:42
--- NOTE | 2018-02-21 12:08 | Pulmonology Progress Note ---
Assessment/Plan Problems: (1) Acute respiratory failure (2) ESRF (end stage renal failure) (3) Pulmonary edema (4) DVT (deep venous thrombosis) Assessment/Plan on nasal cannula HD by filter tank tender helper head respiratory treatment titrate fio2 to sat of 92% check Hemoglobin, remains around 7 on coumadin, INR is 3.2 on Epogen and Folic acid as well all meds reviewed Subjective ROS Limited/Unobtainable: No Constitutional: Reports: no symptoms HEENT: Repors: no symptoms Respiratory: Reports: no symptoms Allergies: Coded Allergies: No Known Allergies (Unverified , 02/02/18) Objective Last 24 Hour Vital Signs Date Time Temp Pulse Resp B/P (MAP) Pulse Ox O2 Delivery O2 Flow Rate FiO2 02/21/18 08:32 85 02/21/18 08:13 82 149/74 02/21/18 08:00 96.3 82 20 149/74 97 Room Air 96.3 02/21/18 06:52 79 18 100 Nasal Cannula 4.0 36 02/21/18 06:45 Nasal Cannula 4.0 36 02/21/18 06:45 78 18 99 Nasal Cannula 4.0 36 02/21/18 06:45 99 Nasal Cannula 4.0 36 02/21/18 06:16 154/74 02/21/18 04:00 97.3 75 20 154/74 96 Nasal Cannula 2.0 97.3 02/21/18 03:35 77 02/21/18 00:00 97.7 77 22 137/62 96 Nasal Cannula 2.0 97.7 02/20/18 23:25 77 02/20/18 20:53 152/72 02/20/18 20:00 97.7 79 18 152/72 100 Room Air 97.7 02/20/18 19:41 76 16 96 Nasal Cannula 4.0 36 02/20/18 19:34 94 Nasal Cannula 4.0 36 02/20/18 19:34 Nasal Cannula 4.0 36 02/20/18 19:33 73 02/20/18 19:33 74 18 92 Nasal Cannula 4.0 36 02/20/18 16:00 96.0 75 18 136/66 95 Room Air 96.0 02/20/18 16:00 78 02/20/18 14:02 Nasal Cannula 02/20/18 14:00 Nasal Cannula Intake and Output 02/20/18 02/21/18 19:00 07:00 Intake Total 250 ml 200 ml Output Total 2117 ml 0 ml Balance -1867 ml 200 ml Intake Oral 250 ml 200 ml Output Urine Total 0 ml Hemodialysis UF 2117 ml # Voids 2 # Bowel Movements 4 Objective General Appearance: WD/WN HEENT: normocephalic, atraumatic Respiratory/Chest: chest wall non-tender, lungs clear Cardiovascular: normal peripheral pulses, normal rate, regular rhythm Abdomen: normal bowel sounds, soft, non tender, no organomegaly, non distended Extremities: no cyanosis, no clubbing, no edema Skin: no rash, no lesions Neurologic/Psychiatric: rural health consultant II-XII grossly normal Laboratory Tests 02/21/18 03:30: White Blood Count 5.6, Red Blood Count 2.50L, Hemoglobin 7.8L, Hematocrit 23.7L , Mean Corpuscular Volume 95, Mean Corpuscular Hemoglobin 31.2H, Mean Corpuscular Hemoglobin Concent 32.9, Red Cell Distribution Width 17.2H, Platelet Count 87L, Mean Platelet Volume 5.5L, Neutrophils (%) (Auto) , Lymphocytes (%) (Auto) , Monocytes (%) (Auto) , Eosinophils (%) (Auto) , Basophils (%) (Auto) , Differential Total Cells Counted 100, Neutrophils % ( Manual) 72, Lymphocytes % (Manual) 17L, Monocytes % (Manual) 5, Eosinophils % ( Manual) 4H, Basophils % (Manual) 0, Band Neutrophils 2, Platelet Estimate DecreasedL, Platelet Morphology Normal, Red Blood Cell Morphology Normal, Prothrombin Time 25.5H, Prothromb Time International Ratio 2.4H, Sodium Level 142, Potassium Level 3.4L, Chloride Level 99, Carbon Dioxide Level 35H, Anion Gap 8, Blood Urea Nitrogen 60H, Creatinine 6.8H, Estimat Glomerular Filtration Rate 8.2, Glucose Level 106, Uric Acid 5.3, Calcium Level 7.2L, Phosphorus Level 6.0H, Magnesium Level 2.1, Total Bilirubin 0.9, Aspartate Amino Transf ( AST/SGOT) 40H, Alanine Aminotransferase (ALT/SGPT) 50, Alkaline Phosphatase 309H , Troponin I 0.011, Pro-B-Type Natriuretic Peptide 77076U, Total Protein 7.2, Albumin 3.0L, Globulin 4.2, Albumin/Globulin Ratio 0.7L Current Medications Medications (Trade) Dose Ordered Sig/Blessing Route PRN Reason Start Time Stop Time Status Last Admin Dose Admin Acetaminophen (Tylenol) 500 mg 3XW PRN ORAL WITH DIALYSIS 02/20/18 09:00 03/10/18 17:59 02/20/18 09:34 Amlodipine Besylate (Norvasc) 10 mg DAILY ORAL 02/19/18 09:00 03/05/18 11:14 02/21/18 08:13 Clonidine HCl (Catapres Tab) 0.1 mg EVERY 8 HOURS PRN ORAL FOR BP > 160. 02/20/18 05:45 03/22/18 05:44 Diphenhydramine HCl (Benadryl) 50 mg Q6H PRN ORAL Itching 02/19/18 08:00 03/15/18 07:59 02/19/18 22:42 Docusate Sodium (Colace) 100 mg TID ORAL 02/20/18 13:00 03/22/18 12:59 02/20/18 13:02 Epoetin Alfonzo (Procrit (for ESRD on dialysis)) 10,000 units SUN-SUN-SUN SUBQ 02/20/18 21:00 03/20/18 20:59 02/20/18 21:21 Folic Acid (Folate) 1 mg DAILY ORAL 02/19/18 09:00 03/06/18 08:59 02/21/18 08:13 Gabapentin (Neurontin) 300 mg THREE TIMES A DAY ORAL 02/19/18 09:00 03/07/18 08:59 02/21/18 08:14 Haloperidol Lactate (Haldol) 5 mg Q4H PRN IM AGITATION 02/19/18 08:00 03/15/18 07:59 02/19/18 22:42 Hydralazine HCl (Apresoline) 25 mg Q8HR ORAL 02/19/18 14:00 03/05/18 12:59 02/21/18 06:16 Lansoprazole (Prevacid) 30 mg DAILY ORAL 02/19/18 09:00 03/11/18 10:59 02/21/18 08:14 Levalbuterol HCl (Xopenex) 1.25 mg TIDRT HHN 02/19/18 08:00 02/22/18 07:59 02/21/18 07:00 Nicotine (Nicoderm) 1 patch Q24H TDERMAL 02/19/18 10:00 03/20/18 09:59 02/21/18 09:01 Oxycodone/ Acetaminophen (Percocet 5-325) 1 tab Q4H PRN ORAL Severe Pain (Pain Scale 7-10) 02/20/18 10:00 02/27/18 09:59 02/21/18 09:02 Prochlorperazine (Compazine) 10 mg Q6H PRN IVP Nausea & Vomiting 02/19/18 08:00 03/09/18 07:59 02/20/18 03:40 Quetiapine Fumarate (SEROquel) 25 mg QHS ORAL 02/19/18 21:00 03/07/18 20:59 02/20/18 20:53 Sevelamer Carbonate (Renvela) 2,400 mg THREE TIMES A DAY ORAL 02/20/18 13:00 03/22/18 12:59 02/21/18 08:14 Warfarin Sodium (Coumadin per pharmacy) 1 ea DAILY PRN MISC Per rx protocol 02/19/18 09:00 03/10/18 17:59 Warfarin Sodium (Coumadin) 2 mg COUMADIN ONCE ORAL 02/21/18 17:00 02/21/18 17:01 Clement Mcleod MD February 21, 2018 12:08
[2018-02-21] MEDS ORDERED: Haloperidol 5mg/ml Inj IM PRN (14:01)
--- NOTE | 2018-02-21 15:31 | General Progress Note ---
Assessment/Plan Problem List: (1) Abnormal laboratory test result ICD Codes: R89.9 - Unspecified abnormal finding in specimens from other organs , systems and tissues SNOMED: 645650931 (2) ESRD (end stage renal disease) on dialysis ICD Codes: N18.6 - End stage renal disease; Z99.2 - Dependence on renal dialysis SNOMED: 504073512 (3) Hypertension, uncontrolled ICD Codes: I10 - Essential (primary) hypertension SNOMED: 72808206, 62252743 (4) Symptomatic anemia ICD Codes: D64.9 - Anemia, unspecified SNOMED: 135351552 (5) Acute hyperkalemia ICD Codes: E87.5 - Hyperkalemia SNOMED: 1643992 (6) DVT (deep venous thrombosis) ICD Codes: I82.409 - Acute embolism and thrombosis of unspecified deep veins of unspecified lower extremity SNOMED: 051714568 (7) SOB (shortness of breath) ICD Codes: R06.02 - Shortness of breath SNOMED: 698984240 (8) Respiratory failure ICD Codes: J96.90 - Respiratory failure, unspecified, unspecified whether with hypoxia or hypercapnia SNOMED: 915166708 Status: unchanged Assessment/Plan ot pt diet o2 pulm tx gi/heme f/u anticoag pulm cbc bmp am ltach eval Subjective Constitutional: Reports: weakness Allergies: Coded Allergies: No Known Allergies (Unverified , 02/02/18) All Systems: reviewed and negative except above Subjective o2nc sleepy calm Objective Last 24 Hour Vital Signs Date Time Temp Pulse Resp B/P (MAP) Pulse Ox O2 Delivery O2 Flow Rate FiO2 02/21/18 14:38 150/78 02/21/18 13:56 80 18 96 Nasal Cannula 2.0 28 02/21/18 13:54 80 18 96 Nasal Cannula 2.0 28 02/21/18 12:00 76 02/21/18 12:00 97.2 78 18 156/66 96 Nasal Cannula 2.0 97.2 02/21/18 08:32 85 02/21/18 08:13 82 149/74 02/21/18 08:00 96.3 82 20 149/74 97 Room Air 96.3 02/21/18 06:52 79 18 100 Nasal Cannula 4.0 36 02/21/18 06:45 Nasal Cannula 4.0 36 02/21/18 06:45 78 18 99 Nasal Cannula 4.0 36 02/21/18 06:45 99 Nasal Cannula 4.0 36 02/21/18 06:16 154/74 02/21/18 04:00 97.3 75 20 154/74 96 Nasal Cannula 2.0 97.3 02/21/18 03:35 77 02/21/18 00:00 97.7 77 22 137/62 96 Nasal Cannula 2.0 97.7 02/20/18 23:25 77 02/20/18 20:53 152/72 02/20/18 20:00 97.7 79 18 152/72 100 Room Air 97.7 02/20/18 19:41 76 16 96 Nasal Cannula 4.0 36 02/20/18 19:34 94 Nasal Cannula 4.0 36 02/20/18 19:34 Nasal Cannula 4.0 36 02/20/18 19:33 73 02/20/18 19:33 74 18 92 Nasal Cannula 4.0 36 02/20/18 16:00 96.0 75 18 136/66 95 Room Air 96.0 02/20/18 16:00 78 Intake and Output 02/20/18 02/21/18 19:00 07:00 Intake Total 250 ml 200 ml Output Total 2117 ml 0 ml Balance -1867 ml 200 ml Intake Oral 250 ml 200 ml Output Urine Total 0 ml Hemodialysis UF 2117 ml # Voids 2 # Bowel Movements 4 Laboratory Tests 02/21/18 03:30: White Blood Count 5.6, Red Blood Count 2.50L, Hemoglobin 7.8L, Hematocrit 23.7L , Mean Corpuscular Volume 95, Mean Corpuscular Hemoglobin 31.2H, Mean Corpuscular Hemoglobin Concent 32.9, Red Cell Distribution Width 17.2H, Platelet Count 87L, Mean Platelet Volume 5.5L, Neutrophils (%) (Auto) , Lymphocytes (%) (Auto) , Monocytes (%) (Auto) , Eosinophils (%) (Auto) , Basophils (%) (Auto) , Differential Total Cells Counted 100, Neutrophils % ( Manual) 72, Lymphocytes % (Manual) 17L, Monocytes % (Manual) 5, Eosinophils % ( Manual) 4H, Basophils % (Manual) 0, Band Neutrophils 2, Platelet Estimate DecreasedL, Platelet Morphology Normal, Red Blood Cell Morphology Normal, Prothrombin Time 25.5H, Prothromb Time International Ratio 2.4H, Sodium Level 142, Potassium Level 3.4L, Chloride Level 99, Carbon Dioxide Level 35H, Anion Gap 8, Blood Urea Nitrogen 60H, Creatinine 6.8H, Estimat Glomerular Filtration Rate 8.2, Glucose Level 106, Uric Acid 5.3, Calcium Level 7.2L, Phosphorus Level 6.0H, Magnesium Level 2.1, Total Bilirubin 0.9, Aspartate Amino Transf ( AST/SGOT) 40H, Alanine Aminotransferase (ALT/SGPT) 50, Alkaline Phosphatase 309H , Troponin I 0.011, Pro-B-Type Natriuretic Peptide 41050U, Total Protein 7.2, Albumin 3.0L, Globulin 4.2, Albumin/Globulin Ratio 0.7L Height (Feet): 5 Height (Inches): 7.00 Weight (Pounds): 131 General Appearance: lethargic EENT: normal ENT inspection Neck: normal alignment Cardiovascular: normal peripheral pulses, normal rate, regular rhythm Respiratory/Chest: chest wall non-tender, decreased breath sounds Abdomen: normal bowel sounds, non tender, soft Extremities: normal inspection Edema: no edema noted Arm (L), no edema noted Arm (R), no edema noted Leg (L), no edema noted Leg (R), no edema noted Pedal (L), no edema noted Pedal (R), no edema noted Generalized Neurologic: motor weakness Skin: normal pigmentation, warm/dry Lebron Swift DO February 21, 2018 15:31
[2018-02-21] MEDS ORDERED: Warfarin Sodium 2mg ORAL ONE ×2 (17:00)
--- NOTE | 2018-02-21 18:45 | Progress Note ---
DATE: 02/21/2018 HISTORY: This is a 63-year-old patient with anemia and gastrointestinal bleeding. The patient still has confusion, disorganized thought process, and mood lability. Poor cognition secondary to progression of medical illness . He does require inpatient treatment. He does require daily psychiatric consultation activity as well as the patient does require daily psychiatric consultation. He has lot of mood lability, agitation, irritability, and altered mental status. Cognition has declined below baseline. That is why, his attending has requested daily psychiatric consultation. MENTAL STATUS EXAMINATION: The patient is a 63-year-old male. Appearance is disheveled. Attitude irritable and agitated. Affect guarded and restricted. Intellect poor. Mood depressed and anxious. Motor activity, psychomotor agitation. Attention span is poor. Orientation x2. Speech is low volume and slurred. Thought process, disorganized and illogical. Thought content, auditory hallucinations and paranoid . Has poor. DIAGNOSIS: Major depressive disorder with psychotic features. PLAN: Plan is to treat him with a medication regimen consisting of Seroquel 25 mg at bedtime. Chart reviewed. Discussed with staff. The patient is continued to be followed throughout the hospital course. Seen and assessed at bedside. Rony Corral M.D. DR: MICHELLE JOB#: [id number] CC:
--- NOTE | 2018-02-21 23:08 | General Progress Note ---
Assessment/Plan Assessment/Plan IMPRESSION: 1. Acute deep venous thrombosis, left lower extremities. --> On anticoagulation. --> On pain control, but Opioids on hold. 2. Status post inferior vena cava filter placement. 3. Anticoagulation with Coumadin. 4. Anticoagulation with IV heparin. 5. History of gastrointestinal bleed. 6. Anemia of kidney disease. --> On Hemodialysis by legal director 7. Anemia of chronic disease. --> S/P blood transfusion. --> Hemoglobin levels downtrended. --> monitor closely and trend cbc. 8. Decreased hemoglobin and hematocrit, rule out gastrointestinal bleed. 9. End-stage renal disease, hemodialysis dependent. 10. History of femoral neck fracture. On pain control. 11. Hypertension. 12. Acute respiratory failure. 13. Pulmonary edema. 14. Malnutrition. 15. Failure to thrive. 16. Chronic obstructive pulmonary disease. 17. History of polysubstance abuse. 18. Benign prostatic hypertrophy. 19. Fluid overload. 20. History of hepatitis C. 21. History of posttraumatic stress disorder. 22. History of smoking. Subjective Date patient seen: February 21, 2018 Constitutional: Denies: no symptoms, chills, diaphoresis, fever, malaise, weakness, other HEENT: Denies: no symptoms, eye pain, blurred vision, tearing, double vision, ear pain, ear discharge, nose pain, nose congestion, throat pain, throat swelling, mouth pain, mouth swelling, other Cardiovascular: Denies: no symptoms, chest pain, edema, irregular heart rate, lightheadedness, palpitations, syncope, other Respiratory: Denies: no symptoms, cough, orthopnea, shortness of breath, SOB with excertion, SOB at rest, sputum, stridor, wheezing, other Gastrointestinal/Abdominal: Denies: no symptoms, abdomen distended, abdominal pain, black stools, tarry stools, blood in stool, constipated, diarrhea, difficulty swallowing, nausea, poor appetite, poor fluid intake, rectal bleeding , vomiting, other Genitourinary: Denies: no symptoms, burning, discharge, frequency, flank pain, hematuria, incontinence, pain, urgency, other Neurologic/Psychiatric: Denies: no symptoms, anxiety, depressed, emotional problems, headache, numbness, paresthesia, pre-existing deficit, seizure, tingling, tremors, weakness, other Hematologic/Lymphatic: Reports: anemia Allergies: Coded Allergies: No Known Allergies (Unverified , 02/02/18) Subjective S/P HD. On pain management as needed. No fever or chills. Objective Last 24 Hour Vital Signs Date Time Temp Pulse Resp B/P (MAP) Pulse Ox O2 Delivery O2 Flow Rate FiO2 02/21/18 21:21 155/79 02/21/18 20:00 96 Nasal Cannula 2.0 02/21/18 19:28 97.5 84 20 155/79 91 Room Air 97.5 02/21/18 16:00 98.0 85 20 140/69 94 98.0 02/21/18 16:00 Nasal Cannula 2.0 02/21/18 14:38 150/78 02/21/18 13:56 80 18 96 Nasal Cannula 2.0 28 02/21/18 13:54 80 18 96 Nasal Cannula 2.0 28 02/21/18 12:00 76 02/21/18 12:00 97.2 78 18 156/66 96 Nasal Cannula 2.0 97.2 02/21/18 08:32 85 02/21/18 08:13 82 149/74 02/21/18 08:00 96.3 82 20 149/74 97 Room Air 96.3 02/21/18 06:52 79 18 100 Nasal Cannula 4.0 36 02/21/18 06:45 Nasal Cannula 4.0 36 02/21/18 06:45 78 18 99 Nasal Cannula 4.0 36 02/21/18 06:45 99 Nasal Cannula 4.0 36 02/21/18 06:16 154/74 02/21/18 04:00 97.3 75 20 154/74 96 Nasal Cannula 2.0 97.3 02/21/18 03:35 77 02/21/18 00:00 97.7 77 22 137/62 96 Nasal Cannula 2.0 97.7 02/20/18 23:25 77 Intake and Output 02/20/18 02/21/18 19:00 07:00 Intake Total 250 ml 200 ml Output Total 2117 ml 0 ml Balance -1867 ml 200 ml Intake Oral 250 ml 200 ml Output Urine Total 0 ml Hemodialysis UF 2117 ml # Voids 2 # Bowel Movements 4 Laboratory Tests 02/21/18 03:30: White Blood Count 5.6, Red Blood Count 2.50L, Hemoglobin 7.8L, Hematocrit 23.7L , Mean Corpuscular Volume 95, Mean Corpuscular Hemoglobin 31.2H, Mean Corpuscular Hemoglobin Concent 32.9, Red Cell Distribution Width 17.2H, Platelet Count 87L, Mean Platelet Volume 5.5L, Neutrophils (%) (Auto) , Lymphocytes (%) (Auto) , Monocytes (%) (Auto) , Eosinophils (%) (Auto) , Basophils (%) (Auto) , Differential Total Cells Counted 100, Neutrophils % ( Manual) 72, Lymphocytes % (Manual) 17L, Monocytes % (Manual) 5, Eosinophils % ( Manual) 4H, Basophils % (Manual) 0, Band Neutrophils 2, Platelet Estimate DecreasedL, Platelet Morphology Normal, Red Blood Cell Morphology Normal, Prothrombin Time 25.5H, Prothromb Time International Ratio 2.4H, Sodium Level 142, Potassium Level 3.4L, Chloride Level 99, Carbon Dioxide Level 35H, Anion Gap 8, Blood Urea Nitrogen 60H, Creatinine 6.8H, Estimat Glomerular Filtration Rate 8.2, Glucose Level 106, Uric Acid 5.3, Calcium Level 7.2L, Phosphorus Level 6.0H, Magnesium Level 2.1, Total Bilirubin 0.9, Aspartate Amino Transf ( AST/SGOT) 40H, Alanine Aminotransferase (ALT/SGPT) 50, Alkaline Phosphatase 309H , Troponin I 0.011, Pro-B-Type Natriuretic Peptide 09995R, Total Protein 7.2, Albumin 3.0L, Globulin 4.2, Albumin/Globulin Ratio 0.7L Height (Feet): 5 Height (Inches): 7.00 Weight (Pounds): 131 General Appearance: no apparent distress Cardiovascular: normal rate, regular rhythm Respiratory/Chest: chest wall non-tender, lungs clear Abdomen: normal bowel sounds, non tender Tristen Lewis MD February 21, 2018 23:08
[2018-02-22] VITALS (7 sets, daily range): BP systolic 161–184; BP diastolic 68–99
[2018-02-22] MEDS: HydrALAZINE 25mg tab ORAL SCH ×3 (06:06→22:36)
[2018-02-22] MEDS: oxyCODONE HCL/Acetaminophen 5/325mg ORAL PRN (06:08)
[2018-02-22 07:21] LABS: HEMATOCRIT 22.9 % (42.0-52.0); MEAN CORPUSCULAR VOLUME 94 FL (80-99); PLATELET COUNT 98 K/UL (150-450); RED BLOOD COUNT 2.44 M/UL (4.70-6.10); WHITE BLOOD COUNT 5.9 K/UL (4.8-10.8)
[2018-02-22 07:39] LABS: INR 1.5 (0.9-1.1)
[2018-02-22 07:40] LABS: ANION GAP 14 mmol/L (5-15); BLOOD UREA NITROGEN 78 mg/dL (7-18); CALCIUM 8.1 MG/DL (8.5-10.1); CARBON DIOXIDE 29 MMOL/L (21-32); CHLORIDE 96 MMOL/L (98-107); CREATININE 8.7 MG/DL (0.55-1.30); POTASSIUM 4.2 MMOL/L (3.5-5.1); SODIUM 139 MMOL/L (136-145)
[2018-02-22] MEDS: Levalbuterol Inh UD 1.25mg/0.5ml HHN SCH (08:05)
[2018-02-22] MEDS: Docusate 100mg cap ORAL SCH ×3 (09:00→18:00)
[2018-02-22] MEDS ORDERED: Acetaminophen 500mg (ES) tab ORAL PRN (09:00)
--- NOTE | 2018-02-22 09:46 | General Progress Note ---
Assessment/Plan Assessment/Plan (1) Right hip pain (2) Right hip Fracture (3) S/p ORIF of right hip Pt will continued on Percocet HOLD OPIOIDS FOR OVERSEDATION OR SBP<90 OR DBP<60 OR O2SAT<92% OR RR<12 D/w Dr. Childers he concurred. Subjective Date patient seen: February 22, 2018 Time patient seen: 08:45 - AM Allergies: Coded Allergies: No Known Allergies (Unverified , 02/02/18) Subjective Constitutional: Reports: weakness HEENT: Reports: no symptoms Cardiovascular: Reports: no symptoms Respiratory: Reports: no symptoms Gastrointestinal/Abdominal: Reports: no symptoms Genitourinary: Reports: no symptoms Neurologic/Psychiatric: Reports: weakness Endocrine: Reports: no symptoms Hematologic/Lymphatic: Reports: no symptoms Subjective: Patient is in bed and reports that his pain continues to fluctuate it has been tolerated on the Percocet using 3 doses in the last 24hrs. Objective Last 24 Hour Vital Signs Date Time Temp Pulse Resp B/P (MAP) Pulse Ox O2 Delivery O2 Flow Rate FiO2 02/22/18 08:24 98.1 90 20 166/79 95 98.1 02/22/18 08:24 Nasal Cannula 2.0 02/22/18 06:06 170/78 02/22/18 05:00 94 Nasal Cannula 2.0 02/22/18 04:34 96.6 88 20 170/78 92 Nasal Cannula 96.6 02/22/18 02:23 Nasal Cannula 2.0 28 02/22/18 02:21 Nasal Cannula 2.0 02/21/18 23:42 97.9 87 20 159/80 91 Room Air 97.9 02/21/18 21:21 155/79 02/21/18 20:05 81 18 97 Nasal Cannula 2.0 28 02/21/18 20:05 Nasal Cannula 4.0 36 02/21/18 20:05 Nasal Cannula 2.0 28 02/21/18 20:05 96 Nasal Cannula 4.0 36 02/21/18 20:00 96 Nasal Cannula 2.0 02/21/18 19:28 97.5 84 20 155/79 91 Room Air 97.5 02/21/18 16:00 98.0 85 20 140/69 94 98.0 02/21/18 16:00 Nasal Cannula 2.0 02/21/18 14:38 150/78 02/21/18 13:56 80 18 96 Nasal Cannula 2.0 28 02/21/18 13:54 80 18 96 Nasal Cannula 2.0 28 02/21/18 12:00 76 02/21/18 12:00 97.2 78 18 156/66 96 Nasal Cannula 2.0 97.2 Intake and Output 02/21/18 02/22/18 19:00 07:00 Intake Total 450 ml Balance 450 ml Intake Oral 450 ml # Voids 1 # Bowel Movements 1 Laboratory Tests 02/22/18 05:05: White Blood Count 5.9, Red Blood Count 2.44L, Hemoglobin 8.0L, Hematocrit 22.9L , Mean Corpuscular Volume 94, Mean Corpuscular Hemoglobin 32.8H, Mean Corpuscular Hemoglobin Concent 35.0, Red Cell Distribution Width 16.0H, Platelet Count 98L, Mean Platelet Volume 6.2L, Neutrophils (%) (Auto) , Lymphocytes (%) (Auto) , Monocytes (%) (Auto) , Eosinophils (%) (Auto) , Basophils (%) (Auto) , Differential Total Cells Counted 100, Neutrophils % ( Manual) 80H, Lymphocytes % (Manual) 10L, Monocytes % (Manual) 7, Eosinophils % ( Manual) 3, Basophils % (Manual) 0, Band Neutrophils 0, Platelet Estimate DecreasedL, Platelet Morphology Normal, Anisocytosis 1+, Prothrombin Time 16.1H , Prothromb Time International Ratio 1.5H, Sodium Level 139, Potassium Level 4.2 , Chloride Level 96L, Carbon Dioxide Level 29, Anion Gap 14, Blood Urea Nitrogen 78H, Creatinine 8.7H, Estimat Glomerular Filtration Rate 6.2, Glucose Level 84, Calcium Level 8.1L Height (Feet): 5 Height (Inches): 7.00 Weight (Pounds): 129 Objective Neck: non-tender, normal alignment, supple, normal inspection Respiratory/Chest: decreased breath sounds Cardiovascular/Chest: normal rate, regular rhythm Abdomen: non tender, soft, no organomegaly Extremities: inflammation - right hip tenderness to palpation Skin Exam: normal pigmentation, warm/dry KANWAL CURRAN February 22, 2018 09:46
--- NOTE | 2018-02-22 10:53 | GI Progress Note ---
Assessment/Plan Problems: (1) Abnormal LFTs ICD Codes: R94.5 - Abnormal results of liver function studies SNOMED: 939660868 (2) Symptomatic anemia ICD Codes: D64.9 - Anemia, unspecified SNOMED: 764680848 (3) ESRD (end stage renal disease) on dialysis ICD Codes: N18.6 - End stage renal disease; Z99.2 - Dependence on renal dialysis SNOMED: 894190489 Status: stable, unchanged Status Narrative Discussed with Dr. Matos. Assessment/Plan hx of EGD/colonoscopy 3 months ago per patient, cannot recall location. iron panel WNL OB stool negative fu nephro recs monitor H&H, prn transfusions ppi thiamine fu labs outpatient GI procedures The patient was seen and examined at bedside and all new and available data was reviewed in the patients chart. I agree with the above findings, impression and plan. (Patient seen earlier today. Signature stamp does not reflect patient encounter time.). - Tushar Matos MD Subjective Subjective denies abdominal pain had EGD/colonoscopy x3 months Objective Last 24 Hour Vital Signs Date Time Temp Pulse Resp B/P (MAP) Pulse Ox O2 Delivery O2 Flow Rate FiO2 02/22/18 08:24 98.1 90 20 166/79 95 98.1 02/22/18 08:24 Nasal Cannula 2.0 02/22/18 06:06 170/78 02/22/18 05:00 94 Nasal Cannula 2.0 02/22/18 04:34 96.6 88 20 170/78 92 Nasal Cannula 96.6 02/22/18 02:23 Nasal Cannula 2.0 28 02/22/18 02:21 Nasal Cannula 2.0 02/21/18 23:42 97.9 87 20 159/80 91 Room Air 97.9 02/21/18 21:21 155/79 02/21/18 20:05 81 18 97 Nasal Cannula 2.0 28 02/21/18 20:05 Nasal Cannula 4.0 36 02/21/18 20:05 Nasal Cannula 2.0 28 02/21/18 20:05 96 Nasal Cannula 4.0 36 02/21/18 20:00 96 Nasal Cannula 2.0 02/21/18 19:28 97.5 84 20 155/79 91 Room Air 97.5 02/21/18 16:00 98.0 85 20 140/69 94 98.0 02/21/18 16:00 Nasal Cannula 2.0 02/21/18 14:38 150/78 02/21/18 13:56 80 18 96 Nasal Cannula 2.0 28 02/21/18 13:54 80 18 96 Nasal Cannula 2.0 28 02/21/18 12:00 76 02/21/18 12:00 97.2 78 18 156/66 96 Nasal Cannula 2.0 97.2 Intake and Output 02/21/18 02/22/18 19:00 07:00 Intake Total 450 ml Balance 450 ml Intake Oral 450 ml # Voids 1 # Bowel Movements 1 Laboratory Tests Test 02/22/18 05:05 White Blood Count 5.9 K/UL (4.8-10.8) Red Blood Count 2.44 M/UL (4.70-6.10) L Hemoglobin 8.0 G/DL (14.2-18.0) L Hematocrit 22.9 % (42.0-52.0) L Mean Corpuscular Volume 94 FL (80-99) Mean Corpuscular Hemoglobin 32.8 PG (27.0-31.0) H Mean Corpuscular Hemoglobin Concent 35.0 G/DL (32.0-36.0) Red Cell Distribution Width 16.0 % (11.6-14.8) H Platelet Count 98 K/UL (150-450) L Mean Platelet Volume 6.2 FL (6.5-10.1) L Neutrophils (%) (Auto) % (45.0-75.0) Lymphocytes (%) (Auto) % (20.0-45.0) Monocytes (%) (Auto) % (1.0-10.0) Eosinophils (%) (Auto) % (0.0-3.0) Basophils (%) (Auto) % (0.0-2.0) Differential Total Cells Counted 100 Neutrophils % (Manual) 80 % (45-75) H Lymphocytes % (Manual) 10 % (20-45) L Monocytes % (Manual) 7 % (1-10) Eosinophils % (Manual) 3 % (0-3) Basophils % (Manual) 0 % (0-2) Band Neutrophils 0 % (0-8) Platelet Estimate Decreased L Platelet Morphology Normal Anisocytosis 1+ Prothrombin Time 16.1 SEC (9.30-11.50) H Prothromb Time International Ratio 1.5 (0.9-1.1) H Sodium Level 139 MMOL/L (136-145) Potassium Level 4.2 MMOL/L (3.5-5.1) Chloride Level 96 MMOL/L (98-107) L Carbon Dioxide Level 29 MMOL/L (21-32) Anion Gap 14 mmol/L (5-15) Blood Urea Nitrogen 78 mg/dL (7-18) H Creatinine 8.7 MG/DL (0.55-1.30) H Estimat Glomerular Filtration Rate 6.2 mL/min (>60) Glucose Level 84 MG/DL (74-106) Calcium Level 8.1 MG/DL (8.5-10.1) L Height (Feet): 5 Height (Inches): 7.00 Weight (Pounds): 129 General Appearance: WD/WN, no apparent distress, alert Cardiovascular: normal rate Respiratory/Chest: normal breath sounds, no respiratory distress Abdominal Exam: normal bowel sounds, non tender, soft Extremities: normal range of motion, non-tender Meliton Aldana NP February 22, 2018 10:53
--- NOTE | 2018-02-22 13:41 | General Progress Note ---
Assessment/Plan Problem List: (1) Abnormal laboratory test result ICD Codes: R89.9 - Unspecified abnormal finding in specimens from other organs , systems and tissues SNOMED: 361188633 (2) ESRD (end stage renal disease) on dialysis ICD Codes: N18.6 - End stage renal disease; Z99.2 - Dependence on renal dialysis SNOMED: 452501979 (3) Hypertension, uncontrolled ICD Codes: I10 - Essential (primary) hypertension SNOMED: 51398825, 22002812 (4) Symptomatic anemia ICD Codes: D64.9 - Anemia, unspecified SNOMED: 561373540 (5) Acute hyperkalemia ICD Codes: E87.5 - Hyperkalemia SNOMED: 7223667 (6) DVT (deep venous thrombosis) ICD Codes: I82.409 - Acute embolism and thrombosis of unspecified deep veins of unspecified lower extremity SNOMED: 591392102 (7) SOB (shortness of breath) ICD Codes: R06.02 - Shortness of breath SNOMED: 689012029 (8) Respiratory failure ICD Codes: J96.90 - Respiratory failure, unspecified, unspecified whether with hypoxia or hypercapnia SNOMED: 745754748 Status: unchanged Assessment/Plan ot pt diet o2 pulm tx gi/heme f/u anticoag pulm dc if clear Subjective Constitutional: Reports: weakness Allergies: Coded Allergies: No Known Allergies (Unverified , 02/02/18) All Systems: reviewed and negative except above Subjective sleepy calm Objective Last 24 Hour Vital Signs Date Time Temp Pulse Resp B/P (MAP) Pulse Ox O2 Delivery O2 Flow Rate FiO2 02/22/18 11:49 98.2 91 20 169/86 95 98.2 02/22/18 11:49 Nasal Cannula 2.0 02/22/18 08:24 98.1 90 20 166/79 95 98.1 02/22/18 08:24 Nasal Cannula 2.0 02/22/18 06:06 170/78 02/22/18 05:00 94 Nasal Cannula 2.0 02/22/18 04:34 96.6 88 20 170/78 92 Nasal Cannula 96.6 02/22/18 02:23 Nasal Cannula 2.0 28 02/22/18 02:21 Nasal Cannula 2.0 02/21/18 23:42 97.9 87 20 159/80 91 Room Air 97.9 02/21/18 21:21 155/79 02/21/18 20:05 81 18 97 Nasal Cannula 2.0 28 02/21/18 20:05 Nasal Cannula 4.0 36 02/21/18 20:05 Nasal Cannula 2.0 28 02/21/18 20:05 96 Nasal Cannula 4.0 36 02/21/18 20:00 96 Nasal Cannula 2.0 02/21/18 19:28 97.5 84 20 155/79 91 Room Air 97.5 02/21/18 16:00 98.0 85 20 140/69 94 98.0 02/21/18 16:00 Nasal Cannula 2.0 02/21/18 14:38 150/78 02/21/18 13:56 80 18 96 Nasal Cannula 2.0 28 02/21/18 13:54 80 18 96 Nasal Cannula 2.0 28 Intake and Output 02/21/18 02/22/18 19:00 07:00 Intake Total 450 ml Balance 450 ml Intake Oral 450 ml # Voids 1 # Bowel Movements 1 Laboratory Tests 02/22/18 05:05: White Blood Count 5.9, Red Blood Count 2.44L, Hemoglobin 8.0L, Hematocrit 22.9L , Mean Corpuscular Volume 94, Mean Corpuscular Hemoglobin 32.8H, Mean Corpuscular Hemoglobin Concent 35.0, Red Cell Distribution Width 16.0H, Platelet Count 98L, Mean Platelet Volume 6.2L, Neutrophils (%) (Auto) , Lymphocytes (%) (Auto) , Monocytes (%) (Auto) , Eosinophils (%) (Auto) , Basophils (%) (Auto) , Differential Total Cells Counted 100, Neutrophils % ( Manual) 80H, Lymphocytes % (Manual) 10L, Monocytes % (Manual) 7, Eosinophils % ( Manual) 3, Basophils % (Manual) 0, Band Neutrophils 0, Platelet Estimate DecreasedL, Platelet Morphology Normal, Anisocytosis 1+, Prothrombin Time 16.1H , Prothromb Time International Ratio 1.5H, Sodium Level 139, Potassium Level 4.2 , Chloride Level 96L, Carbon Dioxide Level 29, Anion Gap 14, Blood Urea Nitrogen 78H, Creatinine 8.7H, Estimat Glomerular Filtration Rate 6.2, Glucose Level 84, Calcium Level 8.1L Height (Feet): 5 Height (Inches): 7.00 Weight (Pounds): 129 General Appearance: lethargic EENT: normal ENT inspection Neck: normal alignment Cardiovascular: normal peripheral pulses, normal rate, regular rhythm Respiratory/Chest: chest wall non-tender, lungs clear, normal breath sounds Abdomen: normal bowel sounds, non tender, soft Extremities: normal inspection Edema: no edema noted Arm (L), no edema noted Arm (R), no edema noted Leg (L), no edema noted Leg (R), no edema noted Pedal (L), no edema noted Pedal (R), no edema noted Generalized Neurologic: motor weakness Skin: normal pigmentation, warm/dry Lebron Swift DO February 22, 2018 13:41
--- NOTE | 2018-02-22 13:45 | Nephrology Progress Note ---
Assessment/Plan Problem List: (1) ESRD (end stage renal disease) on dialysis (2) Acute hyperkalemia (3) Hypertension, uncontrolled (4) Left leg DVT (5) Anemia in chronic kidney disease (CKD) Assessment now out of ICU in [place] ESRD, on admission missed dialysis . has high K on admission has fistula right arm Sever Anemia h/o Amyloidosis COPD Plan HD next 02/22 Transfusion as needed Kayexelate as needed BP control, meds adjusted has IVC filter add phos binders Subjective ROS Limited/Unobtainable: No Constitutional: Reports: malaise, weakness Objective Objective Last 24 Hour Vital Signs Date Time Temp Pulse Resp B/P (MAP) Pulse Ox O2 Delivery O2 Flow Rate FiO2 02/22/18 11:49 98.2 91 20 169/86 95 98.2 02/22/18 11:49 Nasal Cannula 2.0 02/22/18 08:24 98.1 90 20 166/79 95 98.1 02/22/18 08:24 Nasal Cannula 2.0 02/22/18 08:10 Nasal Cannula 2.0 28 02/22/18 08:10 98 Nasal Cannula 4.0 36 02/22/18 08:10 Nasal Cannula 4.0 36 02/22/18 08:10 85 18 97 Nasal Cannula 2.0 28 02/22/18 06:06 170/78 02/22/18 05:00 94 Nasal Cannula 2.0 02/22/18 04:34 96.6 88 20 170/78 92 Nasal Cannula 96.6 02/22/18 02:23 Nasal Cannula 2.0 28 02/22/18 02:21 Nasal Cannula 2.0 02/21/18 23:42 97.9 87 20 159/80 91 Room Air 97.9 02/21/18 21:21 155/79 02/21/18 20:05 81 18 97 Nasal Cannula 2.0 28 02/21/18 20:05 Nasal Cannula 4.0 36 02/21/18 20:05 Nasal Cannula 2.0 28 02/21/18 20:05 96 Nasal Cannula 4.0 36 02/21/18 20:00 96 Nasal Cannula 2.0 02/21/18 19:28 97.5 84 20 155/79 91 Room Air 97.5 02/21/18 16:00 98.0 85 20 140/69 94 98.0 02/21/18 16:00 Nasal Cannula 2.0 02/21/18 14:38 150/78 02/21/18 13:56 80 18 96 Nasal Cannula 2.0 28 02/21/18 13:54 80 18 96 Nasal Cannula 2.0 28 Intake and Output 02/21/18 02/22/18 19:00 07:00 Intake Total 450 ml Balance 450 ml Intake Oral 450 ml # Voids 1 # Bowel Movements 1 Laboratory Tests 02/22/18 05:05: White Blood Count 5.9, Red Blood Count 2.44L, Hemoglobin 8.0L, Hematocrit 22.9L , Mean Corpuscular Volume 94, Mean Corpuscular Hemoglobin 32.8H, Mean Corpuscular Hemoglobin Concent 35.0, Red Cell Distribution Width 16.0H, Platelet Count 98L, Mean Platelet Volume 6.2L, Neutrophils (%) (Auto) , Lymphocytes (%) (Auto) , Monocytes (%) (Auto) , Eosinophils (%) (Auto) , Basophils (%) (Auto) , Differential Total Cells Counted 100, Neutrophils % ( Manual) 80H, Lymphocytes % (Manual) 10L, Monocytes % (Manual) 7, Eosinophils % ( Manual) 3, Basophils % (Manual) 0, Band Neutrophils 0, Platelet Estimate DecreasedL, Platelet Morphology Normal, Anisocytosis 1+, Prothrombin Time 16.1H , Prothromb Time International Ratio 1.5H, Sodium Level 139, Potassium Level 4.2 , Chloride Level 96L, Carbon Dioxide Level 29, Anion Gap 14, Blood Urea Nitrogen 78H, Creatinine 8.7H, Estimat Glomerular Filtration Rate 6.2, Glucose Level 84, Calcium Level 8.1L Height (Feet): 5 Height (Inches): 7.00 Weight (Pounds): 129 General Appearance: no apparent distress, lethargic Objective no change DALTON ROSENTHAL February 22, 2018 13:45
--- NOTE | 2018-02-22 15:40 | Pulmonology Progress Note ---
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0 36 02/22/18 08:10 Nasal Cannula 4.0 36 02/22/18 08:10 85 18 97 Nasal Cannula 2.0 28 02/22/18 06:06 170/78 02/22/18 05:00 94 Nasal Cannula 2.0 02/22/18 04:34 96.6 88 20 170/78 92 Nasal Cannula 96.6 02/22/18 02:23 Nasal Cannula 2.0 28 02/22/18 02:21 Nasal Cannula 2.0 02/21/18 23:42 97.9 87 20 159/80 91 Room Air 97.9 02/21/18 21:21 155/79 02/21/18 20:05 81 18 97 Nasal Cannula 2.0 28 02/21/18 20:05 Nasal Cannula 4.0 36 02/21/18 20:05 Nasal Cannula 2.0 28 02/21/18 20:05 96 Nasal Cannula 4.0 36 02/21/18 20:00 96 Nasal Cannula 2.0 02/21/18 19:28 97.5 84 20 155/79 91 Room Air 97.5 02/21/18 16:00 98.0 85 20 140/69 94 98.0 02/21/18 16:00 Nasal Cannula 2.0 Intake and Output 02/21/18 02/22/18 19:00 07:00 Intake Total 450 ml Balance 450 ml Intake Oral 450 ml # Voids 1 # Bowel Movements 1 Objective General Appearance: WD/WN HEENT: normocephalic, atraumatic Respiratory/Chest: chest wall non-tender, lungs clear Cardiovascular: normal peripheral pulses, normal rate, regular rhythm Abdomen: normal bowel sounds, soft, non tender, no organomegaly, non distended Extremities: no cyanosis, no clubbing, no edema Skin: no rash, no lesions Neurologic/Psychiatric: 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 II-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 grossly normal Laboratory Tests 02/22/18 05:05: White Blood Count 5.9, Red Blood Count 2.44L, Hemoglobin 8.0L, Hematocrit 22.9L , Mean Corpuscular Volume 94, Mean Corpuscular Hemoglobin 32.8H, Mean Corpuscular Hemoglobin Concent 35.0, Red Cell Distribution Width 16.0H, Platelet Count 98L, Mean Platelet Volume 6.2L, Neutrophils (%) (Auto) , Lymphocytes (%) (Auto) , Monocytes (%) (Auto) , Eosinophils (%) (Auto) , Basophils (%) (Auto) , Differential Total Cells Counted 100, Neutrophils % ( Manual) 80H, Lymphocytes % (Manual) 10L, Monocytes % (Manual) 7, Eosinophils % ( Manual) 3, Basophils % (Manual) 0, Band Neutrophils 0, Platelet Estimate DecreasedL, Platelet Morphology Normal, Anisocytosis 1+, Prothrombin Time 16.1H , Prothromb Time International Ratio 1.5H, Sodium Level 139, Potassium Level 4.2 , Chloride Level 96L, Carbon Dioxide Level 29, Anion Gap 14, Blood Urea Nitrogen 78H, Creatinine 8.7H, Estimat Glomerular Filtration Rate 6.2, Glucose Level 84, Calcium Level 8.1L Current Medications Medications (Trade) Dose Ordered Sig/Blessing Route PRN Reason Start Time Stop Time Status Last Admin Dose Admin Acetaminophen (Tylenol) 500 mg 3XW PRN ORAL WITH DIALYSIS 02/22/18 09:00 03/10/18 17:59 Amlodipine Besylate (Norvasc) 10 mg DAILY ORAL 02/22/18 09:00 03/05/18 11:14 Clonidine HCl (Catapres Tab) 0.1 mg EVERY 8 HOURS PRN ORAL FOR BP > 160. 02/21/18 14:01 03/22/18 14:00 Diphenhydramine HCl (Benadryl) 50 mg Q6H PRN ORAL Itching 02/21/18 14:01 03/15/18 14:00 Docusate Sodium (Colace) 100 mg TID ORAL 02/21/18 18:00 03/22/18 12:59 02/21/18 18:35 Epoetin Alfonzo (Procrit (for ESRD on dialysis)) 10,000 units SUBQ 02/22/18 21:00 03/20/18 20:59 Folic Acid (Folate) 1 mg DAILY ORAL 02/22/18 09:00 03/06/18 08:59 02/22/18 09:05 Gabapentin (Neurontin) 300 mg THREE TIMES A DAY ORAL 02/21/18 18:00 03/07/18 08:59 02/22/18 13:13 Haloperidol Lactate (Haldol) 5 mg Q4H PRN IM AGITATION 02/21/18 14:01 03/15/18 14:00 Hydralazine HCl (Apresoline) 25 mg Q8HR ORAL 02/21/18 14:00 03/05/18 12:59 02/22/18 06:06 Lansoprazole (Prevacid) 30 mg DAILY ORAL 02/22/18 09:00 03/11/18 10:59 02/22/18 09:05 Nicotine (Nicoderm) 1 patch Q24H TDERMAL 02/22/18 10:00 03/20/18 09:59 02/22/18 10:33 Oxycodone/ Acetaminophen (Percocet 5-325) 1 tab Q4H PRN ORAL Severe Pain (Pain Scale 7-10) 02/21/18 14:02 02/27/18 14:01 02/22/18 06:08 Prochlorperazine (Compazine) 10 mg Q6H PRN IVP Nausea & Vomiting 02/21/18 14:02 03/09/18 14:01 Quetiapine Fumarate (SEROquel) 25 mg QHS ORAL 02/21/18 21:00 03/07/18 20:59 02/21/18 21:20 Sevelamer Carbonate (Renvela) 2,400 mg THREE TIMES A DAY ORAL 02/21/18 18:00 03/22/18 12:59 02/22/18 13:13 Warfarin Sodium (Coumadin per pharmacy) 1 ea DAILY PRN MISC Per rx protocol 02/22/18 09:00 03/10/18 17:59 Warfarin Sodium (Coumadin) 2.5 mg COUMADIN ORAL 02/22/18 17:00 02/22/18 17:30 Clement Mcleod MD February 22, 2018 15:40
--- NOTE | 2018-02-22 16:30 | Consultation ---
DATE OF CONSULTATION: 02/22/2018 HISTORY OF PRESENT ILLNESS: This is a male patient, who is 63 years old in the hospital because of anemia and GI bleed and because his medical illnesses are causing decline in his cognition. That is why, his attending physician has requested daily psychiatric consultation. MENTAL STATUS EXAMINATION: This is a 63-year-old male. Appearance is disheveled. Attitude irritable and agitated. Affect guarded and restricted. Intellect poor. Mood depressed, anxious. Motor activity, psychomotor agitation. Attention span is poor. Orientation x2. Speech is pressured. Thought process, disorganized and illogical. Thought content, auditory hallucinations and paranoid delusions. Insight and judgment is poor. DIAGNOSIS: Major depression with psychotic features. PLAN: Treat the patient with a medication regimen consisting of Seroquel at a dose of 25 mg at bedtime and also treat him with Neurontin 300 mg three times a day. Provided 18 to 20 minutes of supportive psychotherapy. He will continue to be followed by Psychiatry. Chart reviewed and discussed with staff. Rony Corral M.D. DR: EDDY JOB#: [id number] CC:
[2018-02-22] MEDS ORDERED: Warfarin Sodium 2.5mg ORAL SCH (17:00)
[2018-02-22] MEDS ORDERED: ACETAMINOPHEN325 M1 ORAL (17:02)
[2018-02-22] MEDS ORDERED: NORVASC10 MG ORAL (17:03)
[2018-02-22] MEDS ORDERED: TYLENOL EXTRA500 MG ORAL (17:03)
[2018-02-22] MEDS ORDERED: CATAPRES0.1 MG ORAL (17:05)
[2018-02-22] MEDS ORDERED: BENADRYL50 MG ORAL (17:07)
[2018-02-22] MEDS ORDERED: DOCUSATE SODIU100 M2 ORAL (17:11)
[2018-02-22] MEDS ORDERED: EPOGEN20000 UNI1 SUBQ (17:12)
[2018-02-22] MEDS ORDERED: FOLIC ACID1 MG ORAL (17:13)
[2018-02-22] MEDS ORDERED: GABAPENTIN300 MG/61 ORAL (17:15)
[2018-02-22] MEDS ORDERED: GABAPENTIN300 MG ORAL (17:16)
[2018-02-22] MEDS ORDERED: HALOPERIDOL5 MG/1 ML IM (17:18)
[2018-02-22] MEDS ORDERED: HYDRALAZINE HCL25 M1 ORAL (17:20)
[2018-02-22] MEDS ORDERED: PREVACID30 MG ORAL (17:21)
[2018-02-22] MEDS ORDERED: PERCOCET 5-3251 EACH ORAL (17:26)
[2018-02-22] MEDS ORDERED: NICODERM CQ1 EAC1 TD (17:27)
[2018-02-22] MEDS ORDERED: COUMADIN2.5 MG ORAL (17:29)
[2018-02-22] MEDS ORDERED: HALDOL5 MG/1 ML IM ×2 (17:32→17:33)
[2018-02-22] MEDS ORDERED: Epogen (for ESRD on dialysis) SUBQ SCH (21:00)
--- NOTE | 2018-02-22 23:26 | General Progress Note ---
Assessment/Plan Assessment/Plan IMPRESSION: 1. Acute deep venous thrombosis, left lower extremities. --> On anticoagulation. --> On pain control, but Opioids on hold. 2. Status post inferior vena cava filter placement. 3. Anticoagulation with Coumadin. 4. Anticoagulation with IV heparin. 5. History of gastrointestinal bleed. 6. Anemia of kidney disease. 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 Anemia of chronic disease. --> S/P blood transfusion. --> Hemoglobin levels currently 8. Does not need further transfusion. --> monitor closely and trend cbc. 8. Decreased hemoglobin and hematocrit, rule out gastrointestinal bleed. 9. End-stage renal disease, hemodialysis dependent. 10. History of femoral neck fracture. On pain control. 11. Hypertension. 12. Acute respiratory failure. 13. Pulmonary edema. 14. Malnutrition. 15. Failure to thrive. 16. Chronic obstructive pulmonary disease. 17. History of polysubstance abuse. 18. Benign prostatic hypertrophy. 19. Fluid overload. 20. History of hepatitis C. 21. History of posttraumatic stress disorder. 22. History of smoking. Subjective Date patient seen: February 22, 2018 Constitutional: Denies: no symptoms, chills, diaphoresis, fever, malaise, weakness, other HEENT: Denies: no symptoms, eye pain, blurred vision, tearing, double vision, ear pain, ear discharge, nose pain, nose congestion, throat pain, throat swelling, mouth pain, mouth swelling, other Cardiovascular: Denies: no symptoms, chest pain, edema, irregular heart rate, lightheadedness, palpitations, syncope, other Respiratory: Denies: no symptoms, cough, orthopnea, shortness of breath, SOB with excertion, SOB at rest, sputum, stridor, wheezing, other Gastrointestinal/Abdominal: Denies: no symptoms, abdomen distended, abdominal pain, black stools, tarry stools, blood in stool, constipated, diarrhea, difficulty swallowing, nausea, poor appetite, poor fluid intake, rectal bleeding , vomiting, other Genitourinary: Denies: no symptoms, burning, discharge, frequency, flank pain, hematuria, incontinence, pain, urgency, other Neurologic/Psychiatric: Denies: no symptoms, anxiety, depressed, emotional problems, headache, numbness, paresthesia, pre-existing deficit, seizure, tingling, tremors, weakness, other Hematologic/Lymphatic: Reports: anemia Allergies: Coded Allergies: No Known Allergies (Unverified , 02/02/18) Subjective On pain control. Hypertensive. No new events. Objective Last 24 Hour Vital Signs Date Time Temp Pulse Resp B/P (MAP) Pulse Ox O2 Delivery O2 Flow Rate FiO2 02/22/18 22:36 167/75 02/22/18 20:00 101.1 103 22 161/77 93 Nasal Cannula 2.0 101.1 02/22/18 18:56 100.6 104 20 165/99 96 Nasal Cannula 2.0 100.6 02/22/18 17:57 184/82 02/22/18 17:33 100.9 103 20 184/82 96 Nasal Cannula 2.0 100.9 02/22/18 16:30 Nasal Cannula 2.0 02/22/18 15:56 98.0 93 20 167/68 95 98.0 02/22/18 13:30 Nasal Cannula 2.0 02/22/18 11:49 98.2 91 20 169/86 95 98.2 02/22/18 11:49 Nasal Cannula 2.0 02/22/18 09:00 91 169/86 02/22/18 08:24 98.1 90 20 166/79 95 98.1 02/22/18 08:24 Nasal Cannula 2.0 02/22/18 08:10 Nasal Cannula 2.0 28 02/22/18 08:10 98 Nasal Cannula 4.0 36 02/22/18 08:10 Nasal Cannula 4.0 36 02/22/18 08:10 85 18 97 Nasal Cannula 2.0 28 02/22/18 06:06 170/78 02/22/18 05:00 94 Nasal Cannula 2.0 02/22/18 04:34 96.6 88 20 170/78 92 Nasal Cannula 96.6 02/22/18 02:23 Nasal Cannula 2.0 28 02/22/18 02:21 Nasal Cannula 2.0 02/21/18 23:42 97.9 87 20 159/80 91 Room Air 97.9 Intake and Output 02/21/18 02/22/18 19:00 07:00 Intake Total 450 ml Balance 450 ml Intake Oral 450 ml # Voids 1 # Bowel Movements 1 Laboratory Tests 02/22/18 05:05: White Blood Count 5.9, Red Blood Count 2.44L, Hemoglobin 8.0L, Hematocrit 22.9L , Mean Corpuscular Volume 94, Mean Corpuscular Hemoglobin 32.8H, Mean Corpuscular Hemoglobin Concent 35.0, Red Cell Distribution Width 16.0H, Platelet Count 98L, Mean Platelet Volume 6.2L, Neutrophils (%) (Auto) , Lymphocytes (%) (Auto) , Monocytes (%) (Auto) , Eosinophils (%) (Auto) , Basophils (%) (Auto) , Differential Total Cells Counted 100, Neutrophils % ( Manual) 80H, Lymphocytes % (Manual) 10L, Monocytes % (Manual) 7, Eosinophils % ( Manual) 3, Basophils % (Manual) 0, Band Neutrophils 0, Platelet Estimate DecreasedL, Platelet Morphology Normal, Anisocytosis 1+, Prothrombin Time 16.1H , Prothromb Time International Ratio 1.5H, Sodium Level 139, Potassium Level 4.2 , Chloride Level 96L, Carbon Dioxide Level 29, Anion Gap 14, Blood Urea Nitrogen 78H, Creatinine 8.7H, Estimat Glomerular Filtration Rate 6.2, Glucose Level 84, Calcium Level 8.1L Height (Feet): 5 Height (Inches): 7.00 Weight (Pounds): 129 General Appearance: confused EENT: normal ENT inspection Cardiovascular: normal peripheral pulses, regular rhythm Respiratory/Chest: decreased breath sounds Abdomen: non tender, soft Tristen Lewis MD February 22, 2018 23:26
[2018-02-23] VITALS (7 sets, daily range): BP systolic 149–171; BP diastolic 71–89
[2018-02-23] MEDS: oxyCODONE HCL/Acetaminophen 5/325mg ORAL PRN ×2 (03:29→19:59)
[2018-02-23] MEDS: HydrALAZINE 25mg tab ORAL SCH ×5 (06:00→21:57)
[2018-02-23 07:27] LABS: HEMATOCRIT 22.3 % (42.0-52.0); HEMOGLOBIN 7.5 G/DL (14.2-18.0); MEAN CORPUSCULAR VOLUME 95 FL (80-99); PLATELET COUNT 95 K/UL (150-450); RED BLOOD COUNT 2.36 M/UL (4.70-6.10); RED CELL DISTRIBUTION WIDTH 16.2 % (11.6-14.8); WHITE BLOOD COUNT 5.5 K/UL (4.8-10.8)
[2018-02-23 07:44] LABS: ANION GAP 7 mmol/L (5-15); BLOOD UREA NITROGEN 55 mg/dL (7-18); CALCIUM 8.9 MG/DL (8.5-10.1); CARBON DIOXIDE 34 MMOL/L (21-32); CHLORIDE 101 MMOL/L (98-107); CREATININE 7.2 MG/DL (0.55-1.30); PHOSPHORUS 3.6 MG/DL (2.5-4.9); SODIUM 142 MMOL/L (136-145)
[2018-02-23 07:57] LABS: INR 1.2 (0.9-1.1)
--- NOTE | 2018-02-23 08:31 | General Progress Note ---
Assessment/Plan Problem List: (1) Abnormal laboratory test result ICD Codes: R89.9 - Unspecified abnormal finding in specimens from other organs , systems and tissues SNOMED: 007937117 (2) ESRD (end stage renal disease) on dialysis ICD Codes: N18.6 - End stage renal disease; Z99.2 - Dependence on renal dialysis SNOMED: 856627985 (3) Hypertension, uncontrolled ICD Codes: I10 - Essential (primary) hypertension SNOMED: 67531332, 71743172 (4) Symptomatic anemia ICD Codes: D64.9 - Anemia, unspecified SNOMED: 394640067 (5) Acute hyperkalemia ICD Codes: E87.5 - Hyperkalemia SNOMED: 9788273 (6) DVT (deep venous thrombosis) ICD Codes: I82.409 - Acute embolism and thrombosis of unspecified deep veins of unspecified lower extremity SNOMED: 907236310 (7) SOB (shortness of breath) ICD Codes: R06.02 - Shortness of breath SNOMED: 330135450 (8) Respiratory failure ICD Codes: J96.90 - Respiratory failure, unspecified, unspecified whether with hypoxia or hypercapnia SNOMED: 010990703 Status: unchanged Assessment/Plan ot pt diet o2 pulm tx gi/heme f/u anticoag pulm dc if clear Subjective Constitutional: Reports: weakness Allergies: Coded Allergies: No Known Allergies (Unverified , 02/02/18) All Systems: reviewed and negative except above Subjective o2nc sleepy calm Objective Last 24 Hour Vital Signs Date Time Temp Pulse Resp B/P (MAP) Pulse Ox O2 Delivery O2 Flow Rate FiO2 02/23/18 08:12 98.8 79 20 153/72 96 98.8 02/23/18 06:30 158/72 Nasal Cannula 2.0 02/23/18 04:00 98.4 79 20 171/79 94 98.4 02/23/18 02:37 171/78 02/23/18 00:00 Nasal Cannula 2.0 02/23/18 00:00 100.0 94 23 168/75 95 100.0 02/22/18 22:36 167/75 02/22/18 20:19 97 Nasal Cannula 4.0 36 02/22/18 20:19 Nasal Cannula 4.0 36 02/22/18 20:19 89 22 Nasal Cannula 4.0 36 02/22/18 20:00 101.1 103 22 161/77 93 Nasal Cannula 2.0 101.1 02/22/18 20:00 Nasal Cannula 2.0 02/22/18 18:56 100.6 104 20 165/99 96 Nasal Cannula 2.0 100.6 02/22/18 17:57 184/82 02/22/18 17:33 100.9 103 20 184/82 96 Nasal Cannula 2.0 100.9 02/22/18 16:30 Nasal Cannula 2.0 02/22/18 15:56 98.0 93 20 167/68 95 98.0 02/22/18 13:30 Nasal Cannula 2.0 02/22/18 11:49 98.2 91 20 169/86 95 98.2 02/22/18 11:49 Nasal Cannula 2.0 02/22/18 09:00 91 169/86 Intake and Output 02/22/18 02/23/18 19:00 07:00 Intake Total 480 ml 930 ml Output Total 3180 ml 0 ml Balance -2700 ml 930 ml Intake Oral 480 ml 680 ml Other 250 ml Output Urine Total 0 ml Hemodialysis UF 3180 ml Laboratory Tests 02/23/18 06:00: White Blood Count 5.5, Red Blood Count 2.36L, Hemoglobin 7.5L, Hematocrit 22.3L , Mean Corpuscular Volume 95, Mean Corpuscular Hemoglobin 31.8H, Mean Corpuscular Hemoglobin Concent 33.6, Red Cell Distribution Width 16.2H, Platelet Count 95L, Mean Platelet Volume 6.5, Neutrophils (%) (Auto) , Lymphocytes (%) (Auto) , Monocytes (%) (Auto) , Eosinophils (%) (Auto) , Basophils (%) (Auto) , Neutrophils % (Manual) [Pending], Lymphocytes % (Manual) [Pending], Platelet Estimate [Pending], Platelet Morphology [Pending], Prothrombin Time 12.6H, Prothromb Time International Ratio 1.2H, Sodium Level 142, Potassium Level 4.0, Chloride Level 101, Carbon Dioxide Level 34H, Anion Gap 7, Blood Urea Nitrogen 55H, Creatinine 7.2H, Estimat Glomerular Filtration Rate 7.7, Glucose Level 96, Calcium Level 8.9, Phosphorus Level 3.6, Magnesium Level 2.1 Height (Feet): 5 Height (Inches): 7.00 Weight (Pounds): 128 General Appearance: lethargic EENT: normal ENT inspection Neck: normal alignment Cardiovascular: normal peripheral pulses, normal rate, regular rhythm Respiratory/Chest: chest wall non-tender, decreased breath sounds Extremities: normal inspection Edema: no edema noted Arm (L), no edema noted Arm (R), no edema noted Leg (L), no edema noted Leg (R), no edema noted Pedal (L), no edema noted Pedal (R), no edema noted Generalized Neurologic: motor weakness Skin: normal pigmentation, warm/dry Lebron Swift DO February 23, 2018 08:31
[2018-02-23] MEDS: Docusate 100mg cap ORAL SCH ×3 (09:00→17:50)
--- NOTE | 2018-02-23 11:12 | Nephrology Progress Note ---
Assessment/Plan Problem List: (1) ESRD (end stage renal disease) on dialysis (2) Acute hyperkalemia (3) Hypertension, uncontrolled (4) Left leg DVT (5) Anemia in chronic kidney disease (CKD) Assessment now out of ICU in [place] ESRD, on admission missed dialysis . has high K on admission has fistula right arm Sever Anemia h/o Amyloidosis COPD Plan HD next 02/25 Transfusion as needed Kayexelate as needed BP control, meds adjusted has IVC filter add phos binders Subjective ROS Limited/Unobtainable: No Constitutional: Reports: malaise Objective Objective Last 24 Hour Vital Signs Date Time Temp Pulse Resp B/P (MAP) Pulse Ox O2 Delivery O2 Flow Rate FiO2 02/23/18 09:00 153/72 02/23/18 08:59 79 153/72 02/23/18 08:12 98.8 79 20 153/72 96 98.8 02/23/18 06:30 158/72 Nasal Cannula 2.0 02/23/18 04:00 98.4 79 20 171/79 94 98.4 02/23/18 02:37 171/78 02/23/18 00:00 Nasal Cannula 2.0 02/23/18 00:00 100.0 94 23 168/75 95 100.0 02/22/18 22:36 167/75 02/22/18 20:19 97 Nasal Cannula 4.0 36 02/22/18 20:19 Nasal Cannula 4.0 36 02/22/18 20:19 89 22 Nasal Cannula 4.0 36 02/22/18 20:00 101.1 103 22 161/77 93 Nasal Cannula 2.0 101.1 02/22/18 20:00 Nasal Cannula 2.0 02/22/18 18:56 100.6 104 20 165/99 96 Nasal Cannula 2.0 100.6 02/22/18 17:57 184/82 02/22/18 17:33 100.9 103 20 184/82 96 Nasal Cannula 2.0 100.9 02/22/18 16:30 Nasal Cannula 2.0 02/22/18 15:56 98.0 93 20 167/68 95 98.0 02/22/18 13:30 Nasal Cannula 2.0 02/22/18 11:49 98.2 91 20 169/86 95 98.2 02/22/18 11:49 Nasal Cannula 2.0 Intake and Output 02/22/18 02/23/18 19:00 07:00 Intake Total 480 ml 930 ml Output Total 3180 ml 0 ml Balance -2700 ml 930 ml Intake Oral 480 ml 680 ml Other 250 ml Output Urine Total 0 ml Hemodialysis UF 3180 ml Laboratory Tests 02/23/18 06:00: White Blood Count 5.5, Red Blood Count 2.36L, Hemoglobin 7.5L, Hematocrit 22.3L , Mean Corpuscular Volume 95, Mean Corpuscular Hemoglobin 31.8H, Mean Corpuscular Hemoglobin Concent 33.6, Red Cell Distribution Width 16.2H, Platelet Count 95L, Mean Platelet Volume 6.5, Neutrophils (%) (Auto) , Lymphocytes (%) (Auto) , Monocytes (%) (Auto) , Eosinophils (%) (Auto) , Basophils (%) (Auto) , Differential Total Cells Counted 100, Neutrophils % ( Manual) 71, Lymphocytes % (Manual) 17L, Monocytes % (Manual) 10, Eosinophils % ( Manual) 2, Basophils % (Manual) 0, Band Neutrophils 0, Platelet Estimate DecreasedL, Platelet Morphology Normal, Hypochromasia 3+, Anisocytosis 1+, Prothrombin Time 12.6H, Prothromb Time International Ratio 1.2H, Sodium Level 142, Potassium Level 4.0, Chloride Level 101, Carbon Dioxide Level 34H, Anion Gap 7, Blood Urea Nitrogen 55H, Creatinine 7.2H, Estimat Glomerular Filtration Rate 7.7, Glucose Level 96, Calcium Level 8.9, Phosphorus Level 3.6, Magnesium Level 2.1 Height (Feet): 5 Height (Inches): 7.00 Weight (Pounds): 128 General Appearance: no apparent distress Cardiovascular: normal rate Respiratory/Chest: decreased breath sounds Abdomen: distended Objective no change DALTON ROSENTHAL February 23, 2018 11:12
[2018-02-23] MEDS ORDERED: Warfarin Sodium 3mg ORAL ONE (17:00)
--- NOTE | 2018-02-23 17:45 | Progress Note ---
DATE: 02/23/2018 HISTORY OF PRESENT ILLNESS: This is a 63-year-old patient with anemia and GI bleeding continues to have GERD and confusion illness. That is why, his attending has requested daily psychiatric consultation to stabilize his mood and agitation. MENTAL STATUS EXAMINATION: This is a 63-year-old male. Appearance is disheveled. Attitude irritable and agitated. Affect guarded and restricted. Intellect poor. Mood depressed and anxious. Motor activity, psychomotor agitation. Attention span is poor. Orientation x2. Speech is pressured. Thought process, disorganized and illogical. Thought content, auditory hallucinations and paranoid delusions. Insight and judgment is poor. DIAGNOSIS: Major depressive disorder with psychotic features, rule out paranoid schizophrenia. PLAN: Treat him with Seroquel 25 mg nightly. Provide 18 to 20 minutes of supportive psychotherapy. Seen and assessed in his room. Chart reviewed and discussed with staff. Rony Corral M.D. DR: EDDY JOB#: [id number] CC:
--- NOTE | 2018-02-23 22:13 | Pulmonology Progress Note ---
Assessment/Plan Problems: (1) Acute respiratory failure (2) ESRF (end stage renal failure) (3) Pulmonary edema (4) DVT (deep venous thrombosis) Assessment/Plan on nasal cannula HD by manager relocation respiratory treatment titrate fio2 to sat of 92% check Hemoglobin, remains around 7 n Epogen and Folic acid as well all meds reviewed Subjective ROS Limited/Unobtainable: No Constitutional: Reports: no symptoms HEENT: Repors: no symptoms Allergies: Coded Allergies: No Known Allergies (Unverified , 02/02/18) Objective Last 24 Hour Vital Signs Date Time Temp Pulse Resp B/P (MAP) Pulse Ox O2 Delivery O2 Flow Rate FiO2 02/23/18 21:57 154/76 02/23/18 20:10 96.4 89 20 164/77 92 96.4 02/23/18 19:58 164/77 02/23/18 15:34 98.2 78 20 149/71 96 98.2 02/23/18 15:17 154/89 02/23/18 11:44 97.9 74 20 154/89 94 97.9 02/23/18 09:00 153/72 02/23/18 08:59 79 153/72 02/23/18 08:12 98.8 79 20 153/72 96 98.8 02/23/18 06:30 158/72 Nasal Cannula 2.0 02/23/18 04:00 98.4 79 20 171/79 94 98.4 02/23/18 02:37 171/78 02/23/18 00:00 Nasal Cannula 2.0 02/23/18 00:00 100.0 94 23 168/75 95 100.0 02/22/18 22:36 167/75 Intake and Output 02/22/18 02/23/18 19:00 07:00 Intake Total 480 ml 930 ml Output Total 3180 ml 0 ml Balance -2700 ml 930 ml Intake Oral 480 ml 680 ml Other 250 ml Output Urine Total 0 ml Hemodialysis UF 3180 ml Objective General Appearance: WD/WN HEENT: normocephalic, atraumatic Respiratory/Chest: chest wall non-tender, lungs clear Cardiovascular: normal peripheral pulses, normal rate, regular rhythm Abdomen: normal bowel sounds, soft, non tender, no organomegaly, non distended Extremities: no cyanosis, no clubbing, no edema Skin: no rash, no lesions 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 Laboratory Tests 02/23/18 06:00: White Blood Count 5.5, Red Blood Count 2.36L, Hemoglobin 7.5L, Hematocrit 22.3L , Mean Corpuscular Volume 95, Mean Corpuscular Hemoglobin 31.8H, Mean Corpuscular Hemoglobin Concent 33.6, Red Cell Distribution Width 16.2H, Platelet Count 95L, Mean Platelet Volume 6.5, Neutrophils (%) (Auto) , Lymphocytes (%) (Auto) , Monocytes (%) (Auto) , Eosinophils (%) (Auto) , Basophils (%) (Auto) , Differential Total Cells Counted 100, Neutrophils % ( Manual) 71, Lymphocytes % (Manual) 17L, Monocytes % (Manual) 10, Eosinophils % ( Manual) 2, Basophils % (Manual) 0, Band Neutrophils 0, Platelet Estimate DecreasedL, Platelet Morphology Normal, Hypochromasia 3+, Anisocytosis 1+, Prothrombin Time 12.6H, Prothromb Time International Ratio 1.2H, Sodium Level 142, Potassium Level 4.0, Chloride Level 101, Carbon Dioxide Level 34H, Anion Gap 7, Blood Urea Nitrogen 55H, Creatinine 7.2H, Estimat Glomerular Filtration Rate 7.7, Glucose Level 96, Calcium Level 8.9, Phosphorus Level 3.6, Magnesium Level 2.1 Current Medications Medications (Trade) Dose Ordered Sig/Blessing Route PRN Reason Start Time Stop Time Status Last Admin Dose Admin Acetaminophen (Tylenol) 500 mg 3XW PRN ORAL WITH DIALYSIS 02/25/18 09:00 03/27/18 08:59 Acetaminophen (Tylenol) 650 mg Q6H PRN ORAL Mild Pain/Temp > 100.5 02/23/18 11:00 03/25/18 10:59 Amlodipine Besylate (Norvasc) 10 mg DAILY ORAL 02/24/18 09:00 03/25/18 08:59 Clonidine HCl (Catapres Tab) 0.1 mg EVERY 8 HOURS PRN ORAL FOR BP > 160. 02/23/18 10:45 03/25/18 10:44 02/23/18 19:58 Diphenhydramine HCl (Benadryl) 50 mg Q6H PRN ORAL Itching 02/23/18 11:00 03/25/18 10:59 Docusate Sodium (Colace) 100 mg TID ORAL 02/23/18 13:00 03/25/18 12:59 02/23/18 15:17 Epoetin Alfonzo (Procrit (for ESRD on dialysis)) 10,000 units SUN-SUN-SUN SUBQ 02/25/18 21:00 03/27/18 20:59 Folic Acid (Folate) 1 mg DAILY ORAL 02/24/18 09:00 03/26/18 08:59 Gabapentin (Neurontin) 300 mg THREE TIMES A DAY ORAL 02/23/18 13:00 03/25/18 12:59 02/23/18 17:50 Haloperidol Lactate (Haldol) 5 mg Q4H PRN IM AGITATION 02/23/18 11:00 03/25/18 10:59 Hydralazine HCl (Apresoline) 25 mg Q8HR ORAL 02/23/18 15:00 03/25/18 14:59 02/23/18 21:57 Lansoprazole (Prevacid) 30 mg DAILY ORAL 02/24/18 09:00 03/11/18 08:59 Nicotine (Nicoderm) 1 patch Q24H TDERMAL 02/24/18 09:00 03/26/18 08:59 Oxycodone/ Acetaminophen (Percocet 5-325) 1 tab Q4H PRN ORAL Severe Pain (Pain Scale 7-10) 02/23/18 11:00 03/02/18 10:59 02/23/18 19:59 Prochlorperazine (Compazine) 10 mg Q6H PRN IVP Nausea & Vomiting 02/23/18 11:00 03/25/18 10:59 Quetiapine Fumarate (SEROquel) 25 mg QHS ORAL 02/23/18 21:00 03/25/18 20:59 02/23/18 21:57 Sevelamer Carbonate (Renvela) 2,400 mg THREE TIMES A DAY ORAL 02/23/18 14:58 03/25/18 14:57 02/23/18 17:49 Warfarin Sodium (Coumadin per pharmacy) 1 ea DAILY PRN MISC Per rx protocol 02/22/18 09:00 03/10/18 17:59 Clement Mcleod MD February 23, 2018 22:13
[2018-02-24] VITALS (8 sets, daily range): BP systolic 149–186; BP diastolic 72–86
[2018-02-24] MEDS: oxyCODONE HCL/Acetaminophen 5/325mg ORAL PRN ×2 (00:22→06:09)
--- NOTE | 2018-02-24 05:54 | General Progress Note ---
Assessment/Plan Assessment/Plan IMPRESSION: #. Acute deep venous thrombosis, left lower extremity. --> Status post inferior vena cava filter placement. --> given persistent low h/h and fact that has ivc filter, coumadin discontinued --> transfuse if hgb <7 #. Anemia of gastrointestinal bleed. --> had endoscopy but location unknown #. Anemia of kidney disease. 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 Anemia of chronic disease. --> S/P blood transfusion. --> monitor closely and trend cbc. #. Decreased hemoglobin and hematocrit, rule out gastrointestinal bleed. #. End-stage renal disease, hemodialysis dependent. ==> epo to continue #. History of femoral neck fracture. On pain control. #. Acute respiratory failure. #. Hep C++ Subjective Date patient seen: February 23, 2018 Constitutional: Denies: no symptoms, chills, diaphoresis, fever, malaise, weakness, other HEENT: Denies: no symptoms, eye pain, blurred vision, tearing, double vision, ear pain, ear discharge, nose pain, nose congestion, throat pain, throat swelling, mouth pain, mouth swelling, other Cardiovascular: Denies: no symptoms, chest pain, edema, irregular heart rate, lightheadedness, palpitations, syncope, other Respiratory: Denies: no symptoms, cough, orthopnea, shortness of breath, SOB with excertion, SOB at rest, sputum, stridor, wheezing, other Gastrointestinal/Abdominal: Denies: no symptoms, abdomen distended, abdominal pain, black stools, tarry stools, blood in stool, constipated, diarrhea, difficulty swallowing, nausea, poor appetite, poor fluid intake, rectal bleeding , vomiting, other Genitourinary: Denies: no symptoms, burning, discharge, frequency, flank pain, hematuria, incontinence, pain, urgency, other Neurologic/Psychiatric: Denies: no symptoms, anxiety, depressed, emotional problems, headache, numbness, paresthesia, pre-existing deficit, seizure, tingling, tremors, weakness, other Endocrine: Denies: no symptoms, excessive sweating, flushing, intolerance to cold, intolerance to heat, increased hunger, increased thirst, increased urine, unexplained weight gain, unexplained weight loss, other Allergies: Coded Allergies: No Known Allergies (Unverified , 02/02/18) Subjective On pain control. no events, hd as per renal Objective Last 24 Hour Vital Signs Date Time Temp Pulse Resp B/P (MAP) Pulse Ox O2 Delivery O2 Flow Rate FiO2 02/24/18 04:41 97.4 87 20 149/72 92 97.4 02/24/18 00:00 97.8 86 19 156/73 93 97.8 02/24/18 00:00 Nasal Cannula 2.0 02/23/18 21:57 154/76 02/23/18 20:10 96.4 89 20 164/77 92 96.4 02/23/18 20:00 Nasal Cannula 2.0 02/23/18 19:58 164/77 02/23/18 15:34 98.2 78 20 149/71 96 98.2 02/23/18 15:17 154/89 02/23/18 11:44 97.9 74 20 154/89 94 97.9 02/23/18 09:00 153/72 02/23/18 08:59 79 153/72 02/23/18 08:12 98.8 79 20 153/72 96 98.8 02/23/18 06:30 158/72 Nasal Cannula 2.0 Intake and Output 02/23/18 02/24/18 19:00 07:00 Intake Total 600 ml Balance 600 ml Intake Oral 600 ml Laboratory Tests 02/23/18 06:00: White Blood Count 5.5, Red Blood Count 2.36L, Hemoglobin 7.5L, Hematocrit 22.3L , Mean Corpuscular Volume 95, Mean Corpuscular Hemoglobin 31.8H, Mean Corpuscular Hemoglobin Concent 33.6, Red Cell Distribution Width 16.2H, Platelet Count 95L, Mean Platelet Volume 6.5, Neutrophils (%) (Auto) , Lymphocytes (%) (Auto) , Monocytes (%) (Auto) , Eosinophils (%) (Auto) , Basophils (%) (Auto) , Differential Total Cells Counted 100, Neutrophils % ( Manual) 71, Lymphocytes % (Manual) 17L, Monocytes % (Manual) 10, Eosinophils % ( Manual) 2, Basophils % (Manual) 0, Band Neutrophils 0, Platelet Estimate DecreasedL, Platelet Morphology Normal, Hypochromasia 3+, Anisocytosis 1+, Prothrombin Time 12.6H, Prothromb Time International Ratio 1.2H, Sodium Level 142, Potassium Level 4.0, Chloride Level 101, Carbon Dioxide Level 34H, Anion Gap 7, Blood Urea Nitrogen 55H, Creatinine 7.2H, Estimat Glomerular Filtration Rate 7.7, Glucose Level 96, Calcium Level 8.9, Phosphorus Level 3.6, Magnesium Level 2.1 Height (Feet): 5 Height (Inches): 7.00 Weight (Pounds): 135 General Appearance: WD/WN EENT: TMs normal Neck: normal alignment Cardiovascular: normal rate Respiratory/Chest: lungs clear Abdomen: non tender Extremities: non-tender Edema: 1+ Leg (L), 1+ Leg (R) Neurologic: alert Skin: warm/dry Tristen Lewis MD February 24, 2018 05:54
[2018-02-24] MEDS: HydrALAZINE 25mg tab ORAL SCH ×3 (06:08→22:00)
[2018-02-24] MEDS: Docusate 100mg cap ORAL SCH ×3 (08:26→18:00)
--- NOTE | 2018-02-24 08:46 | General Progress Note ---
Assessment/Plan Problem List: (1) Abnormal laboratory test result ICD Codes: R89.9 - Unspecified abnormal finding in specimens from other organs , systems and tissues SNOMED: 959650943 (2) ESRD (end stage renal disease) on dialysis ICD Codes: N18.6 - End stage renal disease; Z99.2 - Dependence on renal dialysis SNOMED: 182101419 (3) Hypertension, uncontrolled ICD Codes: I10 - Essential (primary) hypertension SNOMED: 38640700, 91865513 (4) Symptomatic anemia ICD Codes: D64.9 - Anemia, unspecified SNOMED: 109372853 (5) Acute hyperkalemia ICD Codes: E87.5 - Hyperkalemia SNOMED: 5706407 (6) DVT (deep venous thrombosis) ICD Codes: I82.409 - Acute embolism and thrombosis of unspecified deep veins of unspecified lower extremity SNOMED: 191249053 (7) SOB (shortness of breath) ICD Codes: R06.02 - Shortness of breath SNOMED: 632731594 (8) Respiratory failure ICD Codes: J96.90 - Respiratory failure, unspecified, unspecified whether with hypoxia or hypercapnia SNOMED: 045188230 Status: unchanged Assessment/Plan ot pt diet o2 pulm tx gi/heme f/u anticoag pulm cbc bmp am dc if clear Subjective Allergies: Coded Allergies: No Known Allergies (Unverified , 02/02/18) All Systems: reviewed and negative except above Subjective o2nc sleepy calm Objective Last 24 Hour Vital Signs Date Time Temp Pulse Resp B/P (MAP) Pulse Ox O2 Delivery O2 Flow Rate FiO2 02/24/18 08:28 97 175/84 02/24/18 08:27 175/84 02/24/18 08:00 97.7 97 18 175/84 92 97.7 02/24/18 07:33 Nasal Cannula 2.0 28 02/24/18 07:33 95 Nasal Cannula 2.0 28 02/24/18 06:08 149/72 02/24/18 04:41 97.4 87 20 149/72 92 97.4 02/24/18 00:00 97.8 86 19 156/73 93 97.8 02/24/18 00:00 Nasal Cannula 2.0 02/23/18 21:57 154/76 02/23/18 20:10 96.4 89 20 164/77 92 96.4 02/23/18 20:00 Nasal Cannula 2.0 02/23/18 19:58 164/77 02/23/18 15:34 98.2 78 20 149/71 96 98.2 02/23/18 15:17 154/89 02/23/18 11:44 97.9 74 20 154/89 94 97.9 02/23/18 09:00 153/72 02/23/18 08:59 79 153/72 Intake and Output 02/23/18 02/24/18 19:00 07:00 Intake Total 600 ml 480 ml Balance 600 ml 480 ml Intake Oral 600 ml 480 ml Height (Feet): 5 Height (Inches): 7.00 Weight (Pounds): 135 General Appearance: lethargic EENT: normal ENT inspection Neck: normal alignment Cardiovascular: normal peripheral pulses, normal rate, regular rhythm Respiratory/Chest: chest wall non-tender, decreased breath sounds Abdomen: normal bowel sounds, non tender, soft Extremities: normal inspection Edema: no edema noted Arm (L), no edema noted Arm (R), no edema noted Leg (L), no edema noted Leg (R), no edema noted Pedal (L), no edema noted Pedal (R), no edema noted Generalized Neurologic: motor weakness Skin: normal pigmentation, warm/dry Lebron Swift DO February 24, 2018 08:46
--- NOTE | 2018-02-24 10:45 | General Progress Note ---
Assessment/Plan Assessment/Plan (1) Right hip pain (2) Right hip Fracture (3) S/p ORIF of right hip Pt will continued on Percocet HOLD OPIOIDS FOR OVERSEDATION OR SBP<90 OR DBP<60 OR O2SAT<92% OR RR<12 D/w Dr. Childers he concurred. Subjective Date patient seen: February 24, 2018 Time patient seen: 10:30 - am Allergies: Coded Allergies: No Known Allergies (Unverified , 02/02/18) Subjective Constitutional: Reports: weakness HEENT: Reports: no symptoms Cardiovascular: Reports: no symptoms Respiratory: Reports: no symptoms Gastrointestinal/Abdominal: Reports: no symptoms Genitourinary: Reports: no symptoms Neurologic/Psychiatric: Reports: weakness Endocrine: Reports: no symptoms Hematologic/Lymphatic: Reports: no symptoms Subjective: Patient has been in bed no signs of pain or distress. Continues to take the Percocet as needed reducing his pain form a 7/10 to a 5/10. He has no new complaints. Objective Last 24 Hour Vital Signs Date Time Temp Pulse Resp B/P (MAP) Pulse Ox O2 Delivery O2 Flow Rate FiO2 02/24/18 08:28 97 175/84 02/24/18 08:27 175/84 02/24/18 08:00 97.7 97 18 175/84 92 97.7 02/24/18 07:33 Nasal Cannula 2.0 28 02/24/18 07:33 95 Nasal Cannula 2.0 28 02/24/18 06:08 149/72 02/24/18 04:41 97.4 87 20 149/72 92 97.4 02/24/18 00:00 97.8 86 19 156/73 93 97.8 02/24/18 00:00 Nasal Cannula 2.0 02/23/18 21:57 154/76 02/23/18 20:10 96.4 89 20 164/77 92 96.4 02/23/18 20:00 Nasal Cannula 2.0 02/23/18 19:58 164/77 02/23/18 15:34 98.2 78 20 149/71 96 98.2 02/23/18 15:17 154/89 02/23/18 11:44 97.9 74 20 154/89 94 97.9 Intake and Output 02/23/18 02/24/18 19:00 07:00 Intake Total 600 ml 480 ml Balance 600 ml 480 ml Intake Oral 600 ml 480 ml Height (Feet): 5 Height (Inches): 7.00 Weight (Pounds): 135 Objective Neck: non-tender, normal alignment, supple, normal inspection Respiratory/Chest: decreased breath sounds Cardiovascular/Chest: normal rate, regular rhythm Abdomen: non tender, soft, no organomegaly Extremities: inflammation - right hip tenderness to palpation Skin Exam: normal pigmentation, warm/dry KANWAL CURRAN February 24, 2018 10:45
--- NOTE | 2018-02-24 14:06 | General Progress Note ---
Assessment/Plan Assessment/Plan IMPRESSION: #. Acute deep venous thrombosis, left lower extremity. --> Status post inferior vena cava filter placement. --> given persistent low h/h and fact that has ivc filter, coumadin discontinued --> transfuse if hgb <7 #. Anemia of gastrointestinal bleed. --> had endoscopy but location unknown #. Anemia of kidney disease. --> On Hemodialysis by neurology director, on epo as well #. Anemia of chronic disease. --> S/P blood transfusion. --> monitor closely and trend cbc. #. Decreased hemoglobin and hematocrit, rule out gastrointestinal bleed. #. End-stage renal disease, hemodialysis dependent. ==> epo to continue #. History of femoral neck fracture. On pain control. #. Acute respiratory failure. #. Hep C++ Subjective Constitutional: Denies: no symptoms, chills, diaphoresis, fever, malaise, weakness, other HEENT: Denies: no symptoms, eye pain, blurred vision, tearing, double vision, ear pain, ear discharge, nose pain, nose congestion, throat pain, throat swelling, mouth pain, mouth swelling, other Cardiovascular: Denies: no symptoms, chest pain, edema, irregular heart rate, lightheadedness, palpitations, syncope, other Respiratory: Denies: no symptoms, cough, orthopnea, shortness of breath, SOB with excertion, SOB at rest, sputum, stridor, wheezing, other Gastrointestinal/Abdominal: Denies: no symptoms, abdomen distended, abdominal pain, black stools, tarry stools, blood in stool, constipated, diarrhea, difficulty swallowing, nausea, poor appetite, poor fluid intake, rectal bleeding , vomiting, other Genitourinary: Denies: no symptoms, burning, discharge, frequency, flank pain, hematuria, incontinence, pain, urgency, other Neurologic/Psychiatric: Denies: no symptoms, anxiety, depressed, emotional problems, headache, numbness, paresthesia, pre-existing deficit, seizure, tingling, tremors, weakness, other Endocrine: Denies: no symptoms, excessive sweating, flushing, intolerance to cold, intolerance to heat, increased hunger, increased thirst, increased urine, unexplained weight gain, unexplained weight loss, other Hematologic/Lymphatic: Denies: no symptoms, anemia, easy bleeding, easy bruising, other Allergies: Coded Allergies: No Known Allergies (Unverified , 02/02/18) Subjective On pain control. no events, hd as per renal, holding coumadin Objective Last 24 Hour Vital Signs Date Time Temp Pulse Resp B/P (MAP) Pulse Ox O2 Delivery O2 Flow Rate FiO2 02/24/18 13:47 160/81 02/24/18 12:00 98.1 104 20 160/81 94 98.1 02/24/18 08:28 97 175/84 02/24/18 08:27 175/84 02/24/18 08:00 97.7 97 18 175/84 92 97.7 02/24/18 07:33 Nasal Cannula 2.0 28 02/24/18 07:33 95 Nasal Cannula 2.0 28 02/24/18 06:08 149/72 02/24/18 04:41 97.4 87 20 149/72 92 97.4 02/24/18 00:00 97.8 86 19 156/73 93 97.8 02/24/18 00:00 Nasal Cannula 2.0 02/23/18 21:57 154/76 02/23/18 20:10 96.4 89 20 164/77 92 96.4 02/23/18 20:00 Nasal Cannula 2.0 02/23/18 19:58 164/77 02/23/18 15:34 98.2 78 20 149/71 96 98.2 02/23/18 15:17 154/89 Intake and Output 02/23/18 02/24/18 19:00 07:00 Intake Total 600 ml 480 ml Balance 600 ml 480 ml Intake Oral 600 ml 480 ml Laboratory Tests 02/24/18 13:55: Prothrombin Time [Pending], Prothromb Time International Ratio [Pending], Sodium Level [Pending], Potassium Level [Pending], Chloride Level [Pending], Carbon Dioxide Level [Pending], Blood Urea Nitrogen [Pending], Creatinine [ Pending], Estimat Glomerular Filtration Rate [Pending], Glucose Level [Pending] , Calcium Level [Pending], Pro-B-Type Natriuretic Peptide [Pending] Height (Feet): 5 Height (Inches): 7.00 Weight (Pounds): 135 General Appearance: no apparent distress EENT: PERRL/EOMI Neck: normal alignment Cardiovascular: regular rhythm Respiratory/Chest: normal breath sounds Abdomen: no organomegaly Extremities: normal range of motion Edema: no edema noted Arm (R), no edema noted Leg (L), no edema noted Leg (R) Edema: mild edema Neurologic: alert Skin: normal pigmentation Tristen Lewis MD February 24, 2018 14:06
--- NOTE | 2018-02-24 14:07 | Nephrology Progress Note ---
Assessment/Plan Problem List: (1) ESRD (end stage renal disease) on dialysis (2) Acute hyperkalemia (3) Hypertension, uncontrolled (4) Left leg DVT (5) Anemia in chronic kidney disease (CKD) Assessment now out of ICU in [place] ESRD, on admission missed dialysis . has high K on admission has fistula right arm Sever Anemia h/o Amyloidosis COPD Plan HD next 02/25 Transfusion as needed Kayexelate as needed BP control, meds adjusted has IVC filter add phos binders Subjective ROS Limited/Unobtainable: No Constitutional: Reports: malaise Objective Objective Last 24 Hour Vital Signs Date Time Temp Pulse Resp B/P (MAP) Pulse Ox O2 Delivery O2 Flow Rate FiO2 02/24/18 13:47 160/81 02/24/18 12:00 98.1 104 20 160/81 94 98.1 02/24/18 08:28 97 175/84 02/24/18 08:27 175/84 02/24/18 08:00 97.7 97 18 175/84 92 97.7 02/24/18 07:33 Nasal Cannula 2.0 28 02/24/18 07:33 95 Nasal Cannula 2.0 28 02/24/18 06:08 149/72 02/24/18 04:41 97.4 87 20 149/72 92 97.4 02/24/18 00:00 97.8 86 19 156/73 93 97.8 02/24/18 00:00 Nasal Cannula 2.0 02/23/18 21:57 154/76 02/23/18 20:10 96.4 89 20 164/77 92 96.4 02/23/18 20:00 Nasal Cannula 2.0 02/23/18 19:58 164/77 02/23/18 15:34 98.2 78 20 149/71 96 98.2 02/23/18 15:17 154/89 Intake and Output 02/23/18 02/24/18 19:00 07:00 Intake Total 600 ml 480 ml Balance 600 ml 480 ml Intake Oral 600 ml 480 ml Laboratory Tests 02/24/18 13:55: Prothrombin Time [Pending], Prothromb Time International Ratio [Pending], Sodium Level [Pending], Potassium Level [Pending], Chloride Level [Pending], Carbon Dioxide Level [Pending], Blood Urea Nitrogen [Pending], Creatinine [ Pending], Estimat Glomerular Filtration Rate [Pending], Glucose Level [Pending] , Calcium Level [Pending], Pro-B-Type Natriuretic Peptide [Pending] Height (Feet): 5 Height (Inches): 7.00 Weight (Pounds): 135 General Appearance: no apparent distress Cardiovascular: tachycardia Respiratory/Chest: decreased breath sounds Abdomen: soft Objective no change DALTON ROSENTHAL February 24, 2018 14:07
[2018-02-24 14:18] LABS: INR 1.3 (0.9-1.1)
[2018-02-24 14:45] LABS: ANION GAP 11 mmol/L (5-15); BLOOD UREA NITROGEN 88 mg/dL (7-18); CALCIUM 8.8 MG/DL (8.5-10.1); CARBON DIOXIDE 27 MMOL/L (21-32); CHLORIDE 99 MMOL/L (98-107); POTASSIUM 5.8 MMOL/L (3.5-5.1); SODIUM 137 MMOL/L (136-145)
[2018-02-24] MEDS ORDERED: Sodium Polystyrene Sulfonate 15gm Powder ORAL SCH (16:15)
[2018-02-24] MEDS ORDERED: Acetaminophen 650 MG SUPP RECTAL PRN (17:15)
[2018-02-24] MEDS: Acetaminophen 650 MG SUPP RECTAL PRN (18:35)
--- NOTE | 2018-02-24 20:00 | Progress Note ---
DATE: 02/24/2018 SUBJECTIVE: The patient is a 63-year-old male patient with anemia and GI bleed. MENTAL STATUS EXAMINATION: The patient is a 63-year-old male, confused, disorganized, auditory hallucinations and paranoid delusions. Insight and judgment is poor. DIAGNOSIS: Major depression with psychotic features. PLAN: Treat him with Seroquel 25 mg at bedtime. Provide 18-20 minutes of supportive psychotherapy. Rony Corral M.D. DR: Kehinde JOB#: [id number] CC:
[2018-02-25] VITALS (7 sets, daily range): BP systolic 116–159; BP diastolic 52–69
[2018-02-25] MEDS: HydrALAZINE 25mg tab ORAL SCH ×3 (04:55→21:20)
--- NOTE | 2018-02-25 06:45 | Progress Note ---
DATE: 02/25/2018 SUBJECTIVE: This is a 63-year-old male patient with anemia and GI bleeding. This patient has confusion and disorganized thought process, poor cognition secondary to progression of his medical illness. That is why, his attending has requested daily psychiatric consultation. MENTAL STATUS EXAMINATION: This is a 63-year-old male. Appearance is disheveled. Attitude irritable and agitated. Affect guarded and restricted. Intellect poor. Mood depressed and anxious. Motor activity, psychomotor agitation. Attention span is poor. Orientation x2. Speech is pressured. Thought process, disorganized and illogical. Thought content, auditory hallucinations and paranoid delusions. Insight and judgment is poor. DIAGNOSIS: Major depression with psychotic features. PLAN: Treat him with Seroquel 25 mg at bedtime. Chart reviewed and discussed with staff. Seen and assessed at bedside. An 18 to 20 minutes of supportive psychotherapy provided. Rony Corral M.D. DR: PAM JOB#: [id number] CC:
--- NOTE | 2018-02-25 07:12 | General Progress Note ---
Assessment/Plan Assessment/Plan IMPRESSION: #. Acute deep venous thrombosis of left lower extremity. --> Status post inferior vena cava filter placement. --> given persistent low h/h and fact that has ivc filter, coumadin discontinued #. Anemia of gastrointestinal bleed. --> transfuse if hgb <7, workup has been reviewed --> Appreciate gi recs, has been seen by them --> had endoscopy but location unknown #. Anemia of kidney disease. 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 Anemia of chronic disease. --> S/P blood transfusion. --> monitor closely and trend cbc. #. End-stage renal disease, hemodialysis dependent. ==> epo to continue 3x a week #. History of femoral neck fracture. On pain control. #. Acute respiratory failure. #. Hep C++ Subjective Constitutional: Denies: no symptoms, chills, diaphoresis, fever, malaise, weakness, other HEENT: Denies: no symptoms, eye pain, blurred vision, tearing, double vision, ear pain, ear discharge, nose pain, nose congestion, throat pain, throat swelling, mouth pain, mouth swelling, other Cardiovascular: Denies: no symptoms, chest pain, edema, irregular heart rate, lightheadedness, palpitations, syncope, other Respiratory: Denies: no symptoms, cough, orthopnea, shortness of breath, SOB with excertion, SOB at rest, sputum, stridor, wheezing, other Gastrointestinal/Abdominal: Denies: no symptoms, abdomen distended, abdominal pain, black stools, tarry stools, blood in stool, constipated, diarrhea, difficulty swallowing, nausea, poor appetite, poor fluid intake, rectal bleeding , vomiting, other Genitourinary: Denies: no symptoms, burning, discharge, frequency, flank pain, hematuria, incontinence, pain, urgency, other Neurologic/Psychiatric: Denies: no symptoms, anxiety, depressed, emotional problems, headache, numbness, paresthesia, pre-existing deficit, seizure, tingling, tremors, weakness, other Endocrine: Denies: no symptoms, excessive sweating, flushing, intolerance to cold, intolerance to heat, increased hunger, increased thirst, increased urine, unexplained weight gain, unexplained weight loss, other Hematologic/Lymphatic: Denies: no symptoms, anemia, easy bleeding, easy bruising, other Allergies: Coded Allergies: No Known Allergies (Unverified , 02/02/18) Subjective no events, hd as per renal, holding coumadin, endoscopy has been completed before unknown location Objective Last 24 Hour Vital Signs Date Time Temp Pulse Resp B/P (MAP) Pulse Ox O2 Delivery O2 Flow Rate FiO2 02/25/18 04:55 166/96 02/25/18 04:55 166/96 02/25/18 04:00 97 02/25/18 04:00 97.9 95 22 159/69 97 Nasal Cannula 2.0 97.9 02/25/18 00:00 99 02/25/18 00:00 98.2 93 22 136/63 97 Nasal Cannula 2.0 98.2 02/24/18 22:00 155/76 02/24/18 21:45 99.5 103 155/76 99.5 02/24/18 20:00 109 02/24/18 20:00 103.0 113 23 185/82 96 Nasal Cannula 2.0 103.0 02/24/18 19:05 Nasal Cannula 2.0 28 02/24/18 19:05 96 Nasal Cannula 2.0 28 02/24/18 19:05 102.0 02/24/18 18:35 101.3 02/24/18 18:33 113 02/24/18 17:08 102.4 118 16 186/85 95 Nasal Cannula 2.0 102.4 02/24/18 16:00 98.9 114 21 169/86 91 98.9 02/24/18 13:47 160/81 02/24/18 12:00 98.1 104 20 160/81 94 98.1 02/24/18 08:28 97 175/84 02/24/18 08:27 175/84 02/24/18 08:00 97.7 97 18 175/84 92 97.7 02/24/18 07:33 Nasal Cannula 2.0 28 02/24/18 07:33 95 Nasal Cannula 2.0 28 Intake and Output 02/24/18 02/25/18 19:00 07:00 Intake Total 75 ml Output Total 0 ml 0 ml Balance 0 ml 75 ml Intake Oral 75 ml Output Urine Total 0 ml 0 ml Laboratory Tests 02/24/18 13:55: Prothrombin Time 12.9H, Prothromb Time International Ratio 1.3H, Sodium Level 137, Potassium Level 5.8H, Chloride Level 99, Carbon Dioxide Level 27, Anion Gap 11, Blood Urea Nitrogen 88H, Creatinine 10.0H, Estimat Glomerular Filtration Rate 5.3, Glucose Level 105, Calcium Level 8.8, Pro-B-Type Natriuretic Peptide > 00839F 02/24/18 17:13: Arterial Blood pH 7.523H, Arterial Blood Partial Pressure CO2 33.5L, Arterial Blood Partial Pressure O2 64.9L, Arterial Blood HCO3 26.9H, Arterial Blood Oxygen Saturation 91.7L, Arterial Blood Base Excess 4.0, Manuel Test Positive Height (Feet): 5 Height (Inches): 7.00 Weight (Pounds): 138 General Appearance: alert EENT: PERRL/EOMI Neck: normal alignment Cardiovascular: regular rhythm Respiratory/Chest: normal breath sounds Abdomen: no organomegaly Extremities: normal range of motion Edema: 1+ Leg (L), 1+ Leg (R) Edema: mild edema Neurologic: alert Tristen Lewis MD February 25, 2018 07:12
[2018-02-25] MEDS: Acetaminophen 650 MG SUPP RECTAL PRN (07:14)
--- NOTE | 2018-02-25 08:46 | General Progress Note ---
Assessment/Plan Assessment/Plan (1) Right hip pain (2) Right hip Fracture (3) S/p ORIF of right hip Pt will continued on Percocet HOLD OPIOIDS FOR OVERSEDATION OR SBP<90 OR DBP<60 OR O2SAT<92% OR RR<12 D/w Dr. Childers he concurred. Subjective Date patient seen: February 25, 2018 Time patient seen: 07:15 - am ROS Limited/Unobtainable: Yes Allergies: Coded Allergies: No Known Allergies (Unverified , 02/02/18) Subjective Subjective: Patient is in [place] lethargic waiting to have HD. Objective Last 24 Hour Vital Signs Date Time Temp Pulse Resp B/P (MAP) Pulse Ox O2 Delivery O2 Flow Rate FiO2 02/25/18 07:14 103.0 02/25/18 04:55 166/96 02/25/18 04:55 166/96 02/25/18 04:00 97 02/25/18 04:00 97.9 95 22 159/69 97 Nasal Cannula 2.0 97.9 02/25/18 00:00 99 02/25/18 00:00 98.2 93 22 136/63 97 Nasal Cannula 2.0 98.2 02/24/18 22:00 155/76 02/24/18 21:45 99.5 103 155/76 99.5 02/24/18 20:00 109 02/24/18 20:00 103.0 113 23 185/82 96 Nasal Cannula 2.0 103.0 02/24/18 19:05 Nasal Cannula 2.0 28 02/24/18 19:05 96 Nasal Cannula 2.0 28 02/24/18 19:05 102.0 02/24/18 18:35 101.3 02/24/18 18:33 113 02/24/18 17:08 102.4 118 16 186/85 95 Nasal Cannula 2.0 102.4 02/24/18 16:00 98.9 114 21 169/86 91 98.9 02/24/18 13:47 160/81 02/24/18 12:00 98.1 104 20 160/81 94 98.1 Intake and Output 02/24/18 02/25/18 19:00 07:00 Intake Total 75 ml Output Total 0 ml 0 ml Balance 0 ml 75 ml Intake Oral 75 ml Output Urine Total 0 ml 0 ml Laboratory Tests 02/24/18 13:55: Prothrombin Time 12.9H, Prothromb Time International Ratio 1.3H, Sodium Level 137, Potassium Level 5.8H, Chloride Level 99, Carbon Dioxide Level 27, Anion Gap 11, Blood Urea Nitrogen 88H, Creatinine 10.0H, Estimat Glomerular Filtration Rate 5.3, Glucose Level 105, Calcium Level 8.8, Pro-B-Type Natriuretic Peptide > 13210A 02/24/18 17:13: Arterial Blood pH 7.523H, Arterial Blood Partial Pressure CO2 33.5L, Arterial Blood Partial Pressure O2 64.9L, Arterial Blood HCO3 26.9H, Arterial Blood Oxygen Saturation 91.7L, Arterial Blood Base Excess 4.0, Manuel Test Positive Height (Feet): 5 Height (Inches): 7.00 Weight (Pounds): 138 Objective Neck: non-tender, normal alignment, supple, normal inspection Respiratory/Chest: decreased breath sounds Cardiovascular/Chest: normal rate, regular rhythm Abdomen: non tender, soft, no organomegaly Extremities: inflammation - right hip tenderness to palpation Skin Exam: normal pigmentation, warm/dry KANWAL CURRAN N. P.Raj February 25, 2018 08:46
[2018-02-25] MEDS ORDERED: Acetaminophen 500mg (ES) tab ORAL PRN (09:00)
[2018-02-25] MEDS ORDERED: Docusate 100mg cap ORAL SCH (09:00)
[2018-02-25] MEDS: Docusate 100mg/10ml Liq NG SCH ×3 (09:25→17:44)
--- NOTE | 2018-02-25 11:00 | GI Progress Note ---
Assessment/Plan Problems: (1) Abnormal LFTs ICD Codes: R94.5 - Abnormal results of liver function studies SNOMED: 590224280 (2) Symptomatic anemia ICD Codes: D64.9 - Anemia, unspecified SNOMED: 315282088 (3) ESRD (end stage renal disease) on dialysis ICD Codes: N18.6 - End stage renal disease; Z99.2 - Dependence on renal dialysis SNOMED: 044826703 Status: stable Status Narrative Discussed with Dr. Matos. Assessment/Plan hx of EGD/colonoscopy 3 months ago per patient, cannot recall location. iron panel WNL OB stool negative fu nephro recs monitor H&H, prn transfusions ppi thiamine fu labs outpatient GI procedures The patient was seen and examined at bedside and all new and available data was reviewed in the patients chart. I agree with the above findings, impression and plan. (Patient seen earlier today. Signature stamp does not reflect patient encounter time.). - Tushar Matos MD Subjective Subjective denies abdominal pain had EGD/colonoscopy x3 months Objective Last 24 Hour Vital Signs Date Time Temp Pulse Resp B/P (MAP) Pulse Ox O2 Delivery O2 Flow Rate FiO2 02/25/18 09:26 108 144/68 02/25/18 08:00 106 02/25/18 08:00 101.8 108 20 144/68 93 Nasal Cannula 2.0 101.8 02/25/18 07:44 101.8 02/25/18 07:14 103.0 02/25/18 04:55 166/96 02/25/18 04:55 166/96 02/25/18 04:00 97 02/25/18 04:00 97.9 95 22 159/69 97 Nasal Cannula 2.0 97.9 02/25/18 00:00 99 02/25/18 00:00 98.2 93 22 136/63 97 Nasal Cannula 2.0 98.2 02/24/18 22:00 155/76 02/24/18 21:45 99.5 103 155/76 99.5 02/24/18 20:00 109 02/24/18 20:00 103.0 113 23 185/82 96 Nasal Cannula 2.0 103.0 02/24/18 19:05 Nasal Cannula 2.0 28 02/24/18 19:05 96 Nasal Cannula 2.0 28 02/24/18 18:35 101.3 02/24/18 18:33 113 02/24/18 17:08 102.4 118 16 186/85 95 Nasal Cannula 2.0 102.4 02/24/18 16:00 98.9 114 21 169/86 91 98.9 02/24/18 13:47 160/81 02/24/18 12:00 98.1 104 20 160/81 94 98.1 Intake and Output 02/24/18 02/25/18 19:00 07:00 Intake Total 75 ml Output Total 0 ml 0 ml Balance 0 ml 75 ml Intake Oral 75 ml Output Urine Total 0 ml 0 ml Laboratory Tests Test 02/24/18 13:55 02/24/18 17:13 Prothrombin Time 12.9 SEC (9.30-11.50) H Prothromb Time International Ratio 1.3 (0.9-1.1) H Sodium Level 137 MMOL/L (136-145) Potassium Level 5.8 MMOL/L (3.5-5.1) H Chloride Level 99 MMOL/L (98-107) Carbon Dioxide Level 27 MMOL/L (21-32) Anion Gap 11 mmol/L (5-15) Blood Urea Nitrogen 88 mg/dL (7-18) H Creatinine 10.0 MG/DL (0.55-1.30) H Estimat Glomerular Filtration Rate 5.3 mL/min (>60) Glucose Level 105 MG/DL (74-106) Calcium Level 8.8 MG/DL (8.5-10.1) Pro-B-Type Natriuretic Peptide > 74177 pg/mL (0-125) H Arterial Blood pH 7.523 (7.350-7.450) Arterial Blood Partial Pressure CO2 33.5 mmHg (35.0-45.0) L Arterial Blood Partial Pressure O2 64.9 mmHg (75.0-100.0) L Arterial Blood HCO3 26.9 mmol/L (22.0-26.0) H Arterial Blood Oxygen Saturation 91.7 % (92.0-98.0) L Arterial Blood Base Excess 4.0 Manuel Test Positive Height (Feet): 5 Height (Inches): 7.00 Weight (Pounds): 138 General Appearance: WD/WN, no apparent distress, alert Cardiovascular: normal rate Respiratory/Chest: normal breath sounds, no respiratory distress Abdominal Exam: normal bowel sounds, non tender, soft Extremities: normal range of motion, non-tender Meliton Aldana NP February 25, 2018 11:00
--- NOTE | 2018-02-25 11:11 | Nephrology Progress Note ---
Assessment/Plan Problem List: (1) ESRD (end stage renal disease) on dialysis (2) Acute hyperkalemia (3) Hypertension, uncontrolled (4) Left leg DVT (5) Anemia in chronic kidney disease (CKD) Assessment now out of ICU in [place] ESRD, on admission missed dialysis . has high K on admission has fistula right arm Sever Anemia h/o Amyloidosis COPD Plan HD next 02/25 Transfusion as needed Kayexelate as needed BP control, meds adjusted has IVC filter add phos binders Subjective ROS Limited/Unobtainable: No Constitutional: Reports: malaise Objective Objective Last 24 Hour Vital Signs Date Time Temp Pulse Resp B/P (MAP) Pulse Ox O2 Delivery O2 Flow Rate FiO2 02/25/18 11:04 102.8 02/25/18 09:26 108 144/68 02/25/18 08:00 106 02/25/18 08:00 101.8 108 20 144/68 93 Nasal Cannula 2.0 101.8 02/25/18 07:44 101.8 02/25/18 07:14 103.0 02/25/18 04:55 166/96 02/25/18 04:55 166/96 02/25/18 04:00 97 02/25/18 04:00 97.9 95 22 159/69 97 Nasal Cannula 2.0 97.9 02/25/18 00:00 99 02/25/18 00:00 98.2 93 22 136/63 97 Nasal Cannula 2.0 98.2 02/24/18 22:00 155/76 02/24/18 21:45 99.5 103 155/76 99.5 02/24/18 20:00 109 02/24/18 20:00 103.0 113 23 185/82 96 Nasal Cannula 2.0 103.0 02/24/18 19:05 Nasal Cannula 2.0 28 02/24/18 19:05 96 Nasal Cannula 2.0 28 02/24/18 18:35 101.3 02/24/18 18:33 113 02/24/18 17:08 102.4 118 16 186/85 95 Nasal Cannula 2.0 102.4 02/24/18 16:00 98.9 114 21 169/86 91 98.9 02/24/18 13:47 160/81 02/24/18 12:00 98.1 104 20 160/81 94 98.1 Intake and Output 02/24/18 02/25/18 19:00 07:00 Intake Total 75 ml Output Total 0 ml 0 ml Balance 0 ml 75 ml Intake Oral 75 ml Output Urine Total 0 ml 0 ml Laboratory Tests 02/24/18 13:55: Prothrombin Time 12.9H, Prothromb Time International Ratio 1.3H, Sodium Level 137, Potassium Level 5.8H, Chloride Level 99, Carbon Dioxide Level 27, Anion Gap 11, Blood Urea Nitrogen 88H, Creatinine 10.0H, Estimat Glomerular Filtration Rate 5.3, Glucose Level 105, Calcium Level 8.8, Pro-B-Type Natriuretic Peptide > 14220Y 02/24/18 17:13: Arterial Blood pH 7.523H, Arterial Blood Partial Pressure CO2 33.5L, Arterial Blood Partial Pressure O2 64.9L, Arterial Blood HCO3 26.9H, Arterial Blood Oxygen Saturation 91.7L, Arterial Blood Base Excess 4.0, Manuel Test Positive Height (Feet): 5 Height (Inches): 7.00 Weight (Pounds): 138 General Appearance: no apparent distress Respiratory/Chest: decreased breath sounds Abdomen: soft Objective no change DALTON ROSENTHAL February 25, 2018 11:11
--- NOTE | 2018-02-25 11:42 | Pulmonology Progress Note ---
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 titrate fio2 to sat of 92% check Hemoglobin, remains around 7 n Epogen and Folic acid as well all meds reviewed Subjective ROS Limited/Unobtainable: Yes Interval Events: confused, less lethargic Allergies: Coded Allergies: No Known Allergies (Unverified , 02/02/18) Objective Last 24 Hour Vital Signs Date Time Temp Pulse Resp B/P (MAP) Pulse Ox O2 Delivery O2 Flow Rate FiO2 02/25/18 11:04 102.8 02/25/18 09:26 108 144/68 02/25/18 08:00 106 02/25/18 08:00 101.8 108 20 144/68 93 Nasal Cannula 2.0 101.8 02/25/18 07:44 101.8 02/25/18 07:14 103.0 02/25/18 04:55 166/96 02/25/18 04:55 166/96 02/25/18 04:00 97 02/25/18 04:00 97.9 95 22 159/69 97 Nasal Cannula 2.0 97.9 02/25/18 00:00 99 02/25/18 00:00 98.2 93 22 136/63 97 Nasal Cannula 2.0 98.2 02/24/18 22:00 155/76 02/24/18 21:45 99.5 103 155/76 99.5 02/24/18 20:00 109 02/24/18 20:00 103.0 113 23 185/82 96 Nasal Cannula 2.0 103.0 02/24/18 19:05 Nasal Cannula 2.0 28 02/24/18 19:05 96 Nasal Cannula 2.0 28 02/24/18 18:35 101.3 02/24/18 18:33 113 02/24/18 17:08 102.4 118 16 186/85 95 Nasal Cannula 2.0 102.4 02/24/18 16:00 98.9 114 21 169/86 91 98.9 02/24/18 13:47 160/81 02/24/18 12:00 98.1 104 20 160/81 94 98.1 Intake and Output 02/24/18 02/25/18 19:00 07:00 Intake Total 75 ml Output Total 0 ml 0 ml Balance 0 ml 75 ml Intake Oral 75 ml Output Urine Total 0 ml 0 ml Objective General Appearance: WD/WN HEENT: normocephalic, atraumatic Respiratory/Chest: chest wall non-tender, lungs clear Cardiovascular: normal peripheral pulses, normal rate, regular rhythm Abdomen: normal bowel sounds, soft, non tender, no organomegaly, non distended Extremities: no cyanosis, no clubbing, no edema Skin: no rash, no lesions Neurologic/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: 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 II-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 grossly normal Microbiology Date/Time Source Procedure Growth Status 02/22/18 23:30 Blood Blood Culture - Preliminary Staphylococcus Aureus Resulted 02/22/18 23:15 Blood Blood Culture - Preliminary Staphylococcus Aureus Resulted Laboratory Tests 02/24/18 13:55: Prothrombin Time 12.9H, Prothromb Time International Ratio 1.3H, Sodium Level 137, Potassium Level 5.8H, Chloride Level 99, Carbon Dioxide Level 27, Anion Gap 11, Blood Urea Nitrogen 88H, Creatinine 10.0H, Estimat Glomerular Filtration Rate 5.3, Glucose Level 105, Calcium Level 8.8, Pro-B-Type Natriuretic Peptide > [id number] 02/24/18 17:13: Arterial Blood pH 7.523H, Arterial Blood Partial Pressure CO2 33.5L, Arterial Blood Partial Pressure O2 64.9L, Arterial Blood HCO3 26.9H, Arterial Blood Oxygen Saturation 91.7L, Arterial Blood Base Excess 4.0, Manuel Test Positive Current Medications Medications (Trade) Dose Ordered Sig/Blessing Route PRN Reason Start Time Stop Time Status Last Admin Dose Admin Acetaminophen (Tylenol) 500 mg 3XW PRN ORAL WITH DIALYSIS 02/25/18 09:00 03/27/18 08:59 Acetaminophen (Tylenol) 650 mg Q4H PRN RECTAL Mild Pain/Temp > 100.5 02/24/18 17:15 03/26/18 17:14 02/25/18 07:14 Acetaminophen (Tylenol) 650 mg Q6H PRN ORAL Mild Pain/Temp > 100.5 02/23/18 11:00 03/25/18 10:59 02/25/18 11:04 Amlodipine Besylate (Norvasc) 10 mg DAILY ORAL 02/24/18 09:00 03/25/18 08:59 02/25/18 09:26 Clonidine HCl (Catapres Tab) 0.1 mg EVERY 8 HOURS PRN ORAL FOR BP > 160. 02/23/18 10:45 03/25/18 10:44 02/25/18 04:55 Diphenhydramine HCl (Benadryl) 50 mg Q6H PRN ORAL Itching 02/23/18 11:00 03/25/18 10:59 Docusate Sodium (Colace) 100 mg THREE TIMES A DAY NG 02/25/18 09:00 03/27/18 08:59 02/25/18 09:25 Epoetin Alfonzo (Procrit (for ESRD on dialysis)) 10,000 units SUN-SUN-SUN SUBQ 02/25/18 21:00 03/27/18 20:59 Folic Acid (Folate) 1 mg DAILY ORAL 02/24/18 09:00 03/26/18 08:59 02/25/18 09:26 Gabapentin (Neurontin) 300 mg THREE TIMES A DAY ORAL 02/23/18 13:00 03/25/18 12:59 02/25/18 09:26 Haloperidol Lactate (Haldol) 5 mg Q4H PRN IM AGITATION 02/23/18 11:00 03/25/18 10:59 Hydralazine HCl (Apresoline) 10 mg Q2H PRN IV For High Blood Pressure 02/24/18 18:30 03/26/18 18:29 Hydralazine HCl (Apresoline) 25 mg Q8HR ORAL 02/23/18 15:00 03/25/18 14:59 02/25/18 04:55 Lansoprazole (Prevacid) 30 mg DAILY ORAL 02/24/18 09:00 03/11/18 08:59 02/25/18 09:26 Nicotine (Nicoderm) 1 patch Q24H TDERMAL 02/24/18 09:00 03/26/18 08:59 02/25/18 09:26 Oxycodone/ Acetaminophen (Percocet 5-325) 1 tab Q4H PRN ORAL Severe Pain (Pain Scale 7-10) 02/23/18 11:00 03/02/18 10:59 02/24/18 06:09 Prochlorperazine (Compazine) 10 mg Q6H PRN IVP Nausea & Vomiting 02/23/18 11:00 03/25/18 10:59 Quetiapine Fumarate (SEROquel) 25 mg QHS ORAL 02/23/18 21:00 03/25/18 20:59 02/24/18 22:00 Sevelamer Carbonate (Renvela) 2,400 mg THREE TIMES A DAY ORAL 02/23/18 14:58 03/25/18 14:57 02/25/18 09:27 Clement Mcleod MD February 25, 2018 11:42
[2018-02-25 13:08] LABS: INR 1.6 (0.9-1.1)
[2018-02-25 13:13] LABS: HEMATOCRIT 17.9 % (42.0-52.0); MEAN CORPUSCULAR VOLUME 95 FL (80-99); PLATELET COUNT 67 K/UL (150-450); RED BLOOD COUNT 1.89 M/UL (4.70-6.10); RED CELL DISTRIBUTION WIDTH 16.5 % (11.6-14.8); WHITE BLOOD COUNT 7.3 K/UL (4.8-10.8)
[2018-02-25 13:21] LABS: HEMOGLOBIN 5.8 G/DL (14.2-18.0)
[2018-02-25 13:39] LABS: ANION GAP 15 mmol/L (5-15); BLOOD UREA NITROGEN 122 mg/dL (7-18); CALCIUM 8.1 MG/DL (8.5-10.1); CARBON DIOXIDE 24 MMOL/L (21-32); CHLORIDE 99 MMOL/L (98-107); CREATININE 12.8 MG/DL (0.55-1.30); POTASSIUM 5.2 MMOL/L (3.5-5.1); SODIUM 138 MMOL/L (136-145)
--- NOTE | 2018-02-25 14:01 | Diagnostic Imaging Report ---
Indication: NG tube placement Technique: XRAY Abdomen 1v Comparison: None FINDINGS/IMPRESSION: Enteric tube courses below level of diaphragms, tip and side-port in the stomach. There is paucity of bowel gas in the right upper abdomen. No definite evidence of pneumoperitoneum. No acute osseous abnormality. IVC filter noted. This corresponds with the [facility] preliminary report.
--- NOTE | 2018-02-25 14:19 | Consultation ---
Consult Note Consult Note [id number] Kevin Mendoza MD February 25, 2018 14:19
[2018-02-25] MEDS ORDERED: Vancomycin 1gm in D5W 275ml IVPB SCH (16:00)
--- NOTE | 2018-02-25 16:18 | General Progress Note ---
Assessment/Plan Problem List: (1) Abnormal laboratory test result ICD Codes: R89.9 - Unspecified abnormal finding in specimens from other organs , systems and tissues SNOMED: 500824297 (2) ESRD (end stage renal disease) on dialysis ICD Codes: N18.6 - End stage renal disease; Z99.2 - Dependence on renal dialysis SNOMED: 618076462 (3) Hypertension, uncontrolled ICD Codes: I10 - Essential (primary) hypertension SNOMED: 10532243, 34373692 (4) Symptomatic anemia ICD Codes: D64.9 - Anemia, unspecified SNOMED: 245441571 (5) Acute hyperkalemia ICD Codes: E87.5 - Hyperkalemia SNOMED: 2770083 (6) DVT (deep venous thrombosis) ICD Codes: I82.409 - Acute embolism and thrombosis of unspecified deep veins of unspecified lower extremity SNOMED: 484187354 (7) SOB (shortness of breath) ICD Codes: R06.02 - Shortness of breath SNOMED: 791077321 (8) Respiratory failure ICD Codes: J96.90 - Respiratory failure, unspecified, unspecified whether with hypoxia or hypercapnia SNOMED: 441888078 Status: unchanged Assessment/Plan ot pt diet o2 pulm tx gi/heme f/u anticoag pulm cbc bmp am Subjective Constitutional: Reports: weakness Allergies: Coded Allergies: No Known Allergies (Unverified , 02/02/18) All Systems: reviewed and negative except above Subjective o2nc sleepy calm Objective Last 24 Hour Vital Signs Date Time Temp Pulse Resp B/P (MAP) Pulse Ox O2 Delivery O2 Flow Rate FiO2 02/25/18 16:11 Nasal Cannula 4.5 02/25/18 16:00 98.2 58 20 116/60 Nasal Cannula 4.5 98.2 02/25/18 12:30 100.0 20 129/60 Nasal Cannula 4.5 100.0 02/25/18 12:03 102.0 02/25/18 12:00 102 02/25/18 12:00 Nasal Cannula 4.5 02/25/18 12:00 102.8 104 20 145/62 94 Nasal Cannula 2.0 102.8 02/25/18 11:04 102.8 02/25/18 09:26 108 144/68 02/25/18 08:00 106 02/25/18 08:00 101.8 108 20 144/68 93 Nasal Cannula 2.0 101.8 02/25/18 07:44 101.8 02/25/18 07:14 103.0 02/25/18 04:55 166/96 02/25/18 04:55 166/96 02/25/18 04:00 97 02/25/18 04:00 97.9 95 22 159/69 97 Nasal Cannula 2.0 97.9 02/25/18 00:00 99 02/25/18 00:00 98.2 93 22 136/63 97 Nasal Cannula 2.0 98.2 02/24/18 22:00 155/76 02/24/18 21:45 99.5 103 155/76 99.5 02/24/18 20:00 109 02/24/18 20:00 103.0 113 23 185/82 96 Nasal Cannula 2.0 103.0 02/24/18 19:05 Nasal Cannula 2.0 28 02/24/18 19:05 96 Nasal Cannula 2.0 28 02/24/18 18:35 101.3 02/24/18 18:33 113 02/24/18 17:08 102.4 118 16 186/85 95 Nasal Cannula 2.0 102.4 Intake and Output 02/24/18 02/25/18 19:00 07:00 Intake Total 75 ml Output Total 0 ml 0 ml Balance 0 ml 75 ml Intake Oral 75 ml Output Urine Total 0 ml 0 ml Laboratory Tests 02/24/18 17:13: Arterial Blood pH 7.523H, Arterial Blood Partial Pressure CO2 33.5L, Arterial Blood Partial Pressure O2 64.9L, Arterial Blood HCO3 26.9H, Arterial Blood Oxygen Saturation 91.7L, Arterial Blood Base Excess 4.0, Manuel Test Positive 02/25/18 12:45: White Blood Count 7.3, Red Blood Count 1.89L, Hemoglobin 5.8*L, Hematocrit 17.9L , Mean Corpuscular Volume 95, Mean Corpuscular Hemoglobin 30.5, Mean Corpuscular Hemoglobin Concent 32.2, Red Cell Distribution Width 16.5H, Platelet Count 67L, Mean Platelet Volume 7.1, Neutrophils (%) (Auto) , Lymphocytes (%) (Auto) , Monocytes (%) (Auto) , Eosinophils (%) (Auto) , Basophils (%) (Auto) , Differential Total Cells Counted 100, Neutrophils % ( Manual) 83H, Lymphocytes % (Manual) 11L, Monocytes % (Manual) 4, Eosinophils % ( Manual) 1, Basophils % (Manual) 1, Band Neutrophils 0, Platelet Estimate DecreasedL, Platelet Morphology Normal, Hypochromasia 4+, Anisocytosis 1+, Spherocytes 2+, Sodium Level 138, Potassium Level 5.2H, Chloride Level 99, Carbon Dioxide Level 24, Anion Gap 15, Blood Urea Nitrogen 122H, Creatinine 12.8H, Estimat Glomerular Filtration Rate 4.0, Glucose Level 95, Lactic Acid Level 0.60L, Calcium Level 8.1L 02/25/18 12:50: Prothrombin Time 16.4H, Prothromb Time International Ratio 1.6H Height (Feet): 5 Height (Inches): 7.00 Weight (Pounds): 138 General Appearance: lethargic EENT: normal ENT inspection Neck: normal alignment Cardiovascular: normal peripheral pulses, normal rate, regular rhythm Respiratory/Chest: chest wall non-tender, decreased breath sounds Abdomen: normal bowel sounds, non tender, soft Extremities: normal inspection Edema: no edema noted Arm (L), no edema noted Arm (R), no edema noted Leg (L), no edema noted Leg (R), no edema noted Pedal (L), no edema noted Pedal (R), no edema noted Generalized Neurologic: motor weakness Skin: normal pigmentation, warm/dry Lebron Swift FishJonnGloria DO February 25, 2018 16:18
[2018-02-25] MEDS ORDERED: NS 275ml ONE (17:03)
[2018-02-25] MEDS ORDERED: Lidocaine 1% Plain 30 ml INJ PRN (18:30)
--- NOTE | 2018-02-25 19:30 | Consultation ---
DATE OF CONSULTATION: 02/25/2018 INFECTIOUS DISEASE CONSULTATION CONSULTING PHYSICIAN: Kevin Mendoza M.D. REFERRING PHYSICIAN: Lebron Swift D.O. REASON FOR CONSULTATION: Evaluation of the patient for fever, antibiotic management. HISTORY OF PRESENT ILLNESS: The patient is a 63-year-old male with multiple medical problems as listed below, who has been admitted to this medical center for almost 3 weeks. The patient now has developed fever. Infectious Disease consultation has been requested for further evaluation of the patient's antibiotic management. The patient is a poor historian, not able to provide detailed information. Information is gathered through the chart and speaking to the staff. PAST MEDICAL HISTORY: 1. Anemia. 2. End-stage renal disease, on hemodialysis. 3. Left leg DVT. 4. Right hip fracture, status post ORIF. 5. History of hepatitis C. MEDICATIONS: Currently, he is off of antibiotics. ALLERGIES: No known drug allergies. SOCIAL HISTORY: Significant for smoking. No alcohol or drug abuse. FAMILY HISTORY: Noncontributory. REVIEW OF SYSTEMS: Poor historian. Much of information I was able to gather as mentioned above. PHYSICAL EXAMINATION: VITAL SIGNS: Temperature 102.8 degrees, pulse 86, respiratory rate 18, and blood pressure 144/68. HEENT: Mild pale conjunctivae. No icterus. NECK: No lymphadenopathy. CHEST: Clear. HEART: S1 and S2. ABDOMEN: Soft. EXTREMITIES: The patient has AV fistula on the right upper extremity. NEUROLOGIC: Awake. LABORATORY AND DIAGNOSTIC DATA: WBC 7.3, hemoglobin 5.8, and platelets 57. BUN 122 and creatinine 12.8. Calcium 8.1. BNP 35,000. Alkaline phosphatase 209. CRP 17. Blood culture is growing Staphylococcus aureus. Chest x-ray, CHF and pleural effusion. CT of chest on 02/06/2018 shows no evidence of pulmonary emboli, diffuse septal thickening, and bilateral ground glass opacities, and small bilateral pleural effusion. 1. Splenomegaly. 2. Status post IVC filter placement. ASSESSMENT: The patient is a 63-year-old male with, 1. Fever. 2. Positive blood culture for Staphylococcus aureus, most likely due to dialysis access. 3. Rule out endocarditis. 4. Normal white blood cells. PLAN: 1. We will start the patient on IV vancomycin. 2. Monitor CBC. 3. Monitor BMP. 4. We will repeat blood cultures in 24 to 48 hours. 5. Monitor chest x-ray. 6. A 2D echo. 7. Monitor vital signs. 8. Based on patient's clinical course and labs, we will do further recommendation. Thank you, Dr. Lebron Swift, for allowing me to participate in the care of this patient. I will follow the patient with you during this hospitalization. Kevin Mendoza M.D. DR: YONATAN JOB#: [id number] CC:
[2018-02-25] MEDS: Epogen (for ESRD on dialysis) SUBQ SCH (21:21)
--- NOTE | 2018-02-25 21:39 | Consultation ---
History of Present Illness General Date patient seen: February 25, 2018 Chief Complaint: Abnormal Labs Referring physician: Dr. Fritz Reason for Consultation: sepsis Present Illness HPI 63 year old male with multiple medical comorbidities who has currently been hospitalized for near 3 weeks after initial presentation with anemia and fatigue from [facility]. Please refer to prior MD notes for details. Currently anemia again requiring blood transfusion. patient with renal insufficiency on HD, currently via Right upper arm fistula. Furthermore, he has recently developed a fever and requires meds/abx. PICC line was ordered but given patients history of HD, AV fistula in upper extremity, and need to preserve upper extremity veins for future HD access if necessary, PICC was not recommended. Surgery called to evaluate for safe central venous access. Patient seen, chart reviewed, patient examined. Allergies: Coded Allergies: No Known Allergies (Unverified , 02/02/18) Medication History Scheduled Albuterol Sulfate* (Proair Hfa*), 2 PUFF INH EVERY 4 HOURS, (Reported) Amlodipine Besylate (Norvasc), 10 MG ORAL DAILY, (Reported) Amlodipine Besylate* (Amlodipine Besylate*), 10 MG ORAL DAILY, (Reported) Bisacodyl (Bisacodyl), 10 MG RC BID, (Reported) Clonidine Hcl* (Catapres*), 0.2 MG ORAL BID, (Reported) Clonidine Hcl* (Catapres*), 0.1 MG ORAL EVERY 8 HOURS, (Reported) Darbepoetin Alfonzo In Polysorbat (Aranesp), 100 MCG SUBQ ONCE A WEEK, (Reported) Docusate Sodium (Docusate Sodium), 100 MG ORAL DAILY, (Reported) Docusate Sodium* (Docusate Sodium*), 100 MG ORAL TWICE A DAY, (Reported) Epoetin Alfonzo (Epogen), 10,000 UNIT SUBQ THREE TIMES A WEEK, (Reported) Folic Acid* (Folic Acid*), 1 MG ORAL DAILY, (Reported) Gabapentin (Gabapentin), 300 MG ORAL THREE TIMES A DAY, (Reported) Gabapentin* (Gabapentin*), 300 MG ORAL THREE TIMES A DAY, (Reported) Haloperidol Lactate (Haloperidol), 5 MG IM EVERY 4 HOURS, (Reported) Haloperidol Lactate (Haldol), 5 MG IM EVERY 4 HOURS, (Reported) Hydralazine Hcl* (Hydralazine Hcl*), 25 MG ORAL FOUR TIMES A DAY, (Reported) Hydralazine Hcl* (Hydralazine Hcl*), 25 MG ORAL EVERY 8 HOURS, (Reported) Lansoprazole* (Prevacid*), 30 MG ORAL DAILY, (Reported) Metoprolol Tartrate* (Metoprolol Tartrate*), 50 MG ORAL DAILY, (Reported) Nicotine 14MG Patch* (Nicoderm Cq 14MG*), 1 EACH TD DAILY, (Reported) Nicotine 14MG Patch* (Nicoderm Cq 14MG*), 1 EACH TD DAILY, (Reported) Quetiapine Fumarate* (Seroquel*), 25 MG ORAL BEDTIME, (Reported) Sennosides (Senna), 8.6 MG PO DAILY, (Reported) Sevelamer Carbonate (Renvela), 3 TAB ORAL THREE TIMES A DAY, (Reported) Sevelamer Carbonate* (Renvela*), 800 MG ORAL THREE TIMES A DAY, (Reported) Warfarin Sod* (Coumadin*), 2.5 MG ORAL DAILY, (Reported) [Robitussin Dm], 10 ML PO EVERY 6 HOURS, (Reported) Scheduled PRN Acetaminophen* (Acetaminophen 325MG Tablet*), 650 MG ORAL Q4H PRN for Pain Scale (3-5), (Reported) Acetaminophen* (Acetaminophen 325MG Tablet*), 650 MG ORAL Q6H PRN for Pain Scale (3-5), (Reported) Acetaminophen* (Tylenol Extra Strength*), 500 MG ORAL THREE TIMES A WEEK PRN for Mild Pain/Temp > 100.5, (Reported) Alprazolam* (Xanax*), 0.25 MG ORAL THREE TIMES A DAY PRN for For Anxiety, ( Reported) Diphenhydramine HCl (Diphenhydramine HCl), 50 MG ORAL Q6H PRN for Itching, ( Reported) Ipratropium [place] 0.5MG/2.5ML (Ipratropium [place] 0.5MG/2.5ML), 2 PUFFS HHN FIVE TIMES A DAY PRN for Shortness of Breath, (Reported) Ondansetron Odt* (Zofran Odt*), 4 MG ORAL EVERY 4 HOURS PRN for Nausea & Vomiting, (Reported) Oxycodone HCl (Oxycodone HCl), 5 MG ORAL Q4H PRN for For Pain, (Reported) Oxycodone Hcl (Oxycodone Hcl), 20 MG ORAL EVERY 12 HOURS PRN for For Pain, ( Reported) Oxycodone/Acetaminophen 5-325* (Percocet 5-325 Mg Tablet*), 1 TAB ORAL Q4H PRN for For Pain, (Reported) Zolpidem Tartrate* (Ambien*), 10 MG ORAL BEDTIME PRN for Insomnia, (Reported) Miscellaneous Medications Haloperidol Lactate (Haldol), 5 MG IM, (Reported) Patient History Limited by: medical condition History Provided By: Medical Record, PMD Healthcare decision maker Resuscitation status Full Code Advanced Directive on File Past Medical/Surgical History Past Medical/Surgical History: (1) Acute hyperkalemia (2) Abnormal laboratory test result (3) ESRD (end stage renal disease) on dialysis (4) Hypertension, uncontrolled (5) Symptomatic anemia (6) Abnormal LFTs (7) DVT (deep venous thrombosis) (8) Left leg DVT (9) Acute respiratory failure (10) ESRF (end stage renal failure) (11) Pulmonary edema (12) SOB (shortness of breath) (13) Anemia in chronic kidney disease (CKD) (14) Respiratory failure Review of Systems ROS Narrative cannot obtain given patients medical condition Physical Exam General Appearance: mild distress Lines, tubes and drains: dialysis access HEENT: mucous membranes moist Neck: normal inspection Respiratory/Chest: chest wall non-tender, no respiratory distress, no accessory muscle use Cardiovascular/Chest: other Abdomen: soft, no organomegaly, no mass Extremities: no edema, no cyanosis Skin Exam: warm/dry Neurologic: aphasia Physical Exam Narrative right upper extremity with AV fistula/graft. left upper okay. bilateral femoral okay but area not preferred in patient with fevers and possible active infection. neck okay Last 24 Hour Vital Signs Date Time Temp Pulse Resp B/P (MAP) Pulse Ox O2 Delivery O2 Flow Rate FiO2 02/25/18 21:20 129/52 02/25/18 16:11 Nasal Cannula 4.5 02/25/18 16:00 98.2 58 20 116/60 Nasal Cannula 4.5 98.2 02/25/18 16:00 99 02/25/18 12:30 100.0 20 129/60 Nasal Cannula 4.5 100.0 02/25/18 12:03 102.0 02/25/18 12:00 102 02/25/18 12:00 Nasal Cannula 4.5 02/25/18 12:00 102.8 104 20 145/62 94 Nasal Cannula 2.0 102.8 02/25/18 11:04 102.8 02/25/18 09:26 108 144/68 02/25/18 08:00 106 02/25/18 08:00 101.8 108 20 144/68 93 Nasal Cannula 2.0 101.8 02/25/18 07:44 101.8 02/25/18 07:14 103.0 02/25/18 04:55 166/96 02/25/18 04:55 166/96 02/25/18 04:00 97 02/25/18 04:00 97.9 95 22 159/69 97 Nasal Cannula 2.0 97.9 02/25/18 00:00 99 02/25/18 00:00 98.2 93 22 136/63 97 Nasal Cannula 2.0 98.2 02/24/18 22:00 155/76 02/24/18 21:45 99.5 103 155/76 99.5 Intake and Output 02/24/18 02/25/18 19:00 07:00 Intake Total 75 ml Output Total 0 ml 0 ml Balance 0 ml 75 ml Intake Oral 75 ml Output Urine Total 0 ml 0 ml Laboratory Tests Test 02/25/18 12:45 02/25/18 12:50 White Blood Count 7.3 K/UL (4.8-10.8) Red Blood Count 1.89 M/UL (4.70-6.10) L Hemoglobin 5.8 G/DL (14.2-18.0) *L Hematocrit 17.9 % (42.0-52.0) L Mean Corpuscular Volume 95 FL (80-99) Mean Corpuscular Hemoglobin 30.5 PG (27.0-31.0) Mean Corpuscular Hemoglobin Concent 32.2 G/DL (32.0-36.0) Red Cell Distribution Width 16.5 % (11.6-14.8) H Platelet Count 67 K/UL (150-450) L Mean Platelet Volume 7.1 FL (6.5-10.1) Neutrophils (%) (Auto) % (45.0-75.0) Lymphocytes (%) (Auto) % (20.0-45.0) Monocytes (%) (Auto) % (1.0-10.0) Eosinophils (%) (Auto) % (0.0-3.0) Basophils (%) (Auto) % (0.0-2.0) Differential Total Cells Counted 100 Neutrophils % (Manual) 83 % (45-75) H Lymphocytes % (Manual) 11 % (20-45) L Monocytes % (Manual) 4 % (1-10) Eosinophils % (Manual) 1 % (0-3) Basophils % (Manual) 1 % (0-2) Band Neutrophils 0 % (0-8) Platelet Estimate Decreased L Platelet Morphology Normal Hypochromasia 4+ Anisocytosis 1+ Spherocytes 2+ Sodium Level 138 MMOL/L (136-145) Potassium Level 5.2 MMOL/L (3.5-5.1) H Chloride Level 99 MMOL/L (98-107) Carbon Dioxide Level 24 MMOL/L (21-32) Anion Gap 15 mmol/L (5-15) Blood Urea Nitrogen 122 mg/dL (7-18) H Creatinine 12.8 MG/DL (0.55-1.30) H Estimat Glomerular Filtration Rate 4.0 mL/min (>60) Glucose Level 95 MG/DL (74-106) Lactic Acid Level 0.60 mmol/L (0.66-2.22) L Calcium Level 8.1 MG/DL (8.5-10.1) L Prothrombin Time 16.4 SEC (9.30-11.50) H Prothromb Time International Ratio 1.6 (0.9-1.1) H Height (Feet): 5 Height (Inches): 7.00 Weight (Pounds): 138 Medications Current Medications Medications (Trade) Dose Ordered Sig/Blessing Route PRN Reason Start Time Stop Time Status Last Admin Dose Admin Acetaminophen (Tylenol) 500 mg 3XW PRN ORAL WITH DIALYSIS 02/25/18 09:00 03/27/18 08:59 Acetaminophen (Tylenol) 650 mg Q4H PRN RECTAL Mild Pain/Temp > 100.5 02/24/18 17:15 03/26/18 17:14 02/25/18 07:14 Acetaminophen (Tylenol) 650 mg Q6H PRN ORAL Mild Pain/Temp > 100.5 02/23/18 11:00 03/25/18 10:59 02/25/18 11:04 Amlodipine Besylate (Norvasc) 10 mg DAILY ORAL 02/24/18 09:00 03/25/18 08:59 02/25/18 09:26 Clonidine HCl (Catapres Tab) 0.1 mg EVERY 8 HOURS PRN ORAL FOR BP > 160. 02/23/18 10:45 03/25/18 10:44 02/25/18 04:55 Diphenhydramine HCl (Benadryl) 50 mg Q6H PRN ORAL Itching 02/23/18 11:00 03/25/18 10:59 Docusate Sodium (Colace) 100 mg THREE TIMES A DAY NG 02/25/18 09:00 03/27/18 08:59 02/25/18 17:44 Epoetin Alfonzo (Procrit (for ESRD on dialysis)) 10,000 units SUN-SUN-SUN SUBQ 02/25/18 21:00 03/27/18 20:59 02/25/18 21:21 Folic Acid (Folate) 1 mg DAILY ORAL 02/24/18 09:00 03/26/18 08:59 02/25/18 09:26 Gabapentin (Neurontin) 300 mg THREE TIMES A DAY ORAL 02/23/18 13:00 03/25/18 12:59 02/25/18 17:44 Haloperidol Lactate (Haldol) 5 mg Q4H PRN IM AGITATION 02/23/18 11:00 03/25/18 10:59 Hydralazine HCl (Apresoline) 10 mg Q2H PRN IV For High Blood Pressure 02/24/18 18:30 03/26/18 18:29 Hydralazine HCl (Apresoline) 25 mg Q8HR ORAL 02/23/18 15:00 03/25/18 14:59 02/25/18 21:20 Lansoprazole (Prevacid) 30 mg DAILY ORAL 02/24/18 09:00 03/11/18 08:59 02/25/18 09:26 Lidocaine HCl (Xylocaine 1% 30ml) 30 ml ONCE PRN INJ PROCEDURE 02/25/18 18:30 02/26/18 23:59 Linezolid (Zyvox) 600 mg EVERY 12 HOURS ORAL 02/25/18 21:00 03/02/18 20:59 02/25/18 21:19 Nicotine (Nicoderm) 1 patch Q24H TDERMAL 02/24/18 09:00 03/26/18 08:59 02/25/18 09:26 Oxycodone/ Acetaminophen (Percocet 5-325) 1 tab Q4H PRN ORAL Severe Pain (Pain Scale 7-10) 02/23/18 11:00 03/02/18 10:59 02/24/18 06:09 Prochlorperazine (Compazine) 10 mg Q6H PRN IVP Nausea & Vomiting 02/23/18 11:00 03/25/18 10:59 Quetiapine Fumarate (SEROquel) 25 mg QHS ORAL 02/23/18 21:00 03/25/18 20:59 02/25/18 21:19 Sevelamer Carbonate (Renvela) 2,400 mg THREE TIMES A DAY ORAL 02/23/18 14:58 03/25/18 14:57 02/25/18 17:44 Vancomycin HCl (Vanco rx to dose) 1 ea DAILY PRN MISC Per rx protocol 02/25/18 14:30 03/27/18 14:29 Assessment/Plan Problem List: (1) Sepsis Assessment & Plan: 63M with multiple medical comorbidities, on HD, recent fevers, tachycardia, sepsis who needs central venous access for meds, abx, blood transfusions. not recommended to use upper extremities for peripheral access or PICC given HD and need to preserve upper extremities subclavian possible but prefer not for same reasons; HD femoral okay but site not clean and risk for infection IJ preferred -left IJ triple lumen central venous catheter placed at bedside. refer to note for details -transfuse and meds as needed -thank you for this consultation. will follow ICD Codes: A41.9 - Sepsis, unspecified organism SNOMED: 49877873 Status: unchanged Niall Cordon February 25, 2018 21:39
--- NOTE | 2018-02-25 21:44 | Operative Note - PDOC ---
Operative Note Operative Note Date of Operation/Procedure: February 25, 2018 Pre-op Diagnosis: sepsis requiring meds, blood transfusion, lab draws Procedure: left internal jugular central venous catheter placement Post-op Diagnosis: same as pre-op Surgeon: conner Anesthesia: local Specimen: none Complications: none Condition: stable Estimated Blood Loss: minimal Drains: none Implant(s) used?: No Indications for Procedure 63M sepsis, anemia, on HD. needs meds, blood transfusion, and frequent blood draws. should can central venous access as peripheral for upper extremities should be preserved given patient on HD. consent obtained. line placed at bedside. Description of Procedure Patient was made comfortable at bedside. left neck was prepped and draped in standard surgical fashion. anatomic landmarks were identified. 25g finder needle was used to identify/cannulate left internal jugular vein using anatomic landmarks. once venous drawback noted a central catheter finder needle used to cannulate left IJ vein over small finder needle. once cannulated with good venous drawback the guidewire was placed without difficulty. needle was removed. small skin incision was made and dilator used. triple lumen catheter was then inserted over wire without difficulty. wire removed and discarded. all three ports flushed and aspirated without issues. catheter sutured in place using suture provided. dressings applied. patient tolerated well. cxr stat ordered. Niall Cordon February 25, 2018 21:44
[2018-02-26] VITALS: BP 98/45
[2018-02-26 04:00] VITALS: BP 125/58
[2018-02-26] MEDS: Haloperidol 5mg/ml Inj IM PRN (04:16)
[2018-02-26 04:50] LABS: MEAN CORPUSCULAR VOLUME 91 FL (80-99); PLATELET COUNT 67 K/UL (150-450); RED BLOOD COUNT 2.19 M/UL (4.70-6.10); WHITE BLOOD COUNT 8.9 K/UL (4.8-10.8)
[2018-02-26 05:10] LABS: HEMOGLOBIN 6.7 G/DL (14.2-18.0)
[2018-02-26] MEDS: HydrALAZINE 25mg tab ORAL SCH ×3 (05:58→21:29)
[2018-02-26 07:23] LABS: HEMATOCRIT 20.6 % (42.0-52.0); MEAN CORPUSCULAR VOLUME 91 FL (80-99); PLATELET COUNT 62 K/UL (150-450); RED BLOOD COUNT 2.25 M/UL (4.70-6.10); RED CELL DISTRIBUTION WIDTH 15.6 % (11.6-14.8); WHITE BLOOD COUNT 9.4 K/UL (4.8-10.8)
[2018-02-26 07:27] LABS: HEMOGLOBIN 6.9 G/DL (14.2-18.0)
[2018-02-26 07:44] LABS: ALANINE AMINOTRANSFERASE 25 U/L (12-78); ALBUMIN 2.6 G/DL (3.4-5.0); ALBUMIN/GLOBULIN RATIO 0.6 (1.0-2.7); ALKALINE PHOSPHATASE 215 U/L (46-116); ANION GAP 8 mmol/L (5-15); ASPARTATE AMINO TRANSFERASE 68 U/L (15-37); BILIRUBIN,TOTAL 1.3 MG/DL (0.2-1.0); BLOOD UREA NITROGEN 85 mg/dL (7-18); CALCIUM 7.4 MG/DL (8.5-10.1); CARBON DIOXIDE 33 MMOL/L (21-32); CHLORIDE 96 MMOL/L (98-107); CREATININE 9.4 MG/DL (0.55-1.30); PHOSPHORUS 6.4 MG/DL (2.5-4.9); POTASSIUM 4.4 MMOL/L (3.5-5.1); SODIUM 137 MMOL/L (136-145)
[2018-02-26 07:45] LABS: BILIRUBIN,DIRECT 0.6 MG/DL (0.0-0.3)
[2018-02-26 08:00] VITALS: BP 126/63
[2018-02-26 08:27] LABS: HEMATOCRIT 21.2 % (42.0-52.0); HEMOGLOBIN 7.1 G/DL (14.2-18.0); MEAN CORPUSCULAR VOLUME 92 FL (80-99); PLATELET COUNT 60 K/UL (150-450); RED BLOOD COUNT 2.32 M/UL (4.70-6.10); RED CELL DISTRIBUTION WIDTH 15.8 % (11.6-14.8); WHITE BLOOD COUNT 9.5 K/UL (4.8-10.8)
--- NOTE | 2018-02-26 08:31 | Progress Note ---
DATE: 02/26/2018 SUBJECTIVE: The patient is a 63-year-old male patient with anemia and status post GI bleed. As the patient has altered mental status and confusion and cognition has declined below baseline, that is why his attending has requested daily psychiatric consultation. MENTAL STATUS EXAMINATION: This is a 63-year-old male. Appearance is disheveled. Attitude is irritable, agitated. Affect guarded and restricted. Intellect poor. Mood depressed, anxious. Motor activity, psychomotor agitation. Attention span is poor. Orientation x2. Speech is low volume and slurred. Thought process, paranoid delusions. Insight and judgment is poor. DIAGNOSIS: Major depression with psychotic features. PLAN: Treat him with Seroquel 25 mg at bedtime. An 18 to 20 minutes supportive therapy provided. Chart reviewed and discussed with staff. Rony Corral M.D. DR: EDDY JOB#: [id number] CC:
--- NOTE | 2018-02-26 08:35 | General Progress Note ---
Assessment/Plan Assessment/Plan IMPRESSION: #. Acute deep venous thrombosis of left lower extremity. --> Status post inferior vena cava filter placement. --> given persistent low h/h and fact that has ivc filter, coumadin discontinued #. Anemia of gastrointestinal bleed. --> transfuse if hgb <7, workup has been reviewed --> Appreciate gi recs, has been seen by them --> had endoscopy but location unknown #. Thrombocytopenia baseline likely plt count of >50-100k --> likely related to splenomegaly and hepatitis C --> monitor closely for bleed if downtrends though this is less likely --> transfuse to keep plt >20k #. Anemia of kidney disease. --> On Hemodialysis by herb counselor, on epo as well #. Anemia of chronic disease is s/p blood transfusion. #. End-stage renal disease, hemodialysis dependent. ==> epo to continue 3x a week #. History of femoral neck fracture. On pain control. #. Acute respiratory failure. #. Hep C++ Subjective Constitutional: Denies: no symptoms, chills, diaphoresis, fever, malaise, weakness, other HEENT: Denies: no symptoms, eye pain, blurred vision, tearing, double vision, ear pain, ear discharge, nose pain, nose congestion, throat pain, throat swelling, mouth pain, mouth swelling, other Cardiovascular: Denies: no symptoms, chest pain, edema, irregular heart rate, lightheadedness, palpitations, syncope, other Respiratory: Denies: no symptoms, cough, orthopnea, shortness of breath, SOB with excertion, SOB at rest, sputum, stridor, wheezing, other Gastrointestinal/Abdominal: Denies: no symptoms, abdomen distended, abdominal pain, black stools, tarry stools, blood in stool, constipated, diarrhea, difficulty swallowing, nausea, poor appetite, poor fluid intake, rectal bleeding , vomiting, other Genitourinary: Denies: no symptoms, burning, discharge, frequency, flank pain, hematuria, incontinence, pain, urgency, other Neurologic/Psychiatric: Denies: no symptoms, anxiety, depressed, emotional problems, headache, numbness, paresthesia, pre-existing deficit, seizure, tingling, tremors, weakness, other Endocrine: Denies: no symptoms, excessive sweating, flushing, intolerance to cold, intolerance to heat, increased hunger, increased thirst, increased urine, unexplained weight gain, unexplained weight loss, other Hematologic/Lymphatic: Denies: no symptoms, anemia, easy bleeding, easy bruising, other Allergies: Coded Allergies: No Known Allergies (Unverified , 02/02/18) Subjective no events, hd as per renal, holding coumadin given low h/h Objective Last 24 Hour Vital Signs Date Time Temp Pulse Resp B/P (MAP) Pulse Ox O2 Delivery O2 Flow Rate FiO2 02/26/18 07:23 99.9 02/26/18 06:24 101.0 02/26/18 05:58 119/49 02/26/18 04:00 99.9 89 26 125/58 98 Nasal Cannula 4.5 99.9 02/26/18 00:00 99.3 88 24 98/45 96 Nasal Cannula 4.5 99.3 02/25/18 21:35 102.7 02/25/18 21:20 129/52 02/25/18 20:00 102.7 105 30 129/52 Nasal Cannula 4.5 102.7 02/25/18 16:11 Nasal Cannula 4.5 02/25/18 16:00 98.2 58 20 116/60 Nasal Cannula 4.5 98.2 02/25/18 16:00 99 02/25/18 12:30 100.0 20 129/60 Nasal Cannula 4.5 100.0 02/25/18 12:00 102 02/25/18 12:00 Nasal Cannula 4.5 02/25/18 12:00 102.8 104 20 145/62 94 Nasal Cannula 2.0 102.8 02/25/18 11:04 102.8 02/25/18 09:26 108 144/68 Intake and Output 02/25/18 02/26/18 19:00 07:00 Intake Total 1291 ml Output Total 791 ml 2 ml Balance -791 ml 1289 ml Free Water 100 ml Hemodialysis 791 ml Other 400 ml Stool Total 2 ml Hemodialysis UF 791 ml # Bowel Movements 1 1 Laboratory Tests 02/25/18 12:45: White Blood Count 7.3, Red Blood Count 1.89L, Hemoglobin 5.8*L, Hematocrit 17.9L , Mean Corpuscular Volume 95, Mean Corpuscular Hemoglobin 30.5, Mean Corpuscular Hemoglobin Concent 32.2, Red Cell Distribution Width 16.5H, Platelet Count 67L, Mean Platelet Volume 7.1, Neutrophils (%) (Auto) , Lymphocytes (%) (Auto) , Monocytes (%) (Auto) , Eosinophils (%) (Auto) , Basophils (%) (Auto) , Differential Total Cells Counted 100, Neutrophils % ( Manual) 83H, Lymphocytes % (Manual) 11L, Monocytes % (Manual) 4, Eosinophils % ( Manual) 1, Basophils % (Manual) 1, Band Neutrophils 0, Platelet Estimate DecreasedL, Platelet Morphology Normal, Hypochromasia 4+, Anisocytosis 1+, Spherocytes 2+, Sodium Level 138, Potassium Level 5.2H, Chloride Level 99, Carbon Dioxide Level 24, Anion Gap 15, Blood Urea Nitrogen 122H, Creatinine 12.8H, Estimat Glomerular Filtration Rate 4.0, Glucose Level 95, Lactic Acid Level 0.60L, Calcium Level 8.1L 02/25/18 12:50: Prothrombin Time 16.4H, Prothromb Time International Ratio 1.6H 02/26/18 04:00: White Blood Count 8.9, Red Blood Count 2.19L, Hemoglobin 6.7*L, Hematocrit 20.0L , Mean Corpuscular Volume 91, Mean Corpuscular Hemoglobin 30.7, Mean Corpuscular Hemoglobin Concent 33.6, Red Cell Distribution Width 16.0H, Platelet Count 67L, Mean Platelet Volume 9.4, Neutrophils (%) (Auto) , Lymphocytes (%) (Auto) , Monocytes (%) (Auto) , Eosinophils (%) (Auto) , Basophils (%) (Auto) 02/26/18 06:30: White Blood Count 9.4, Red Blood Count 2.25L, Hemoglobin 6.9*L, Hematocrit 20.6L , Mean Corpuscular Volume 91, Mean Corpuscular Hemoglobin 30.6, Mean Corpuscular Hemoglobin Concent 33.5, Red Cell Distribution Width 15.6H, Platelet Count 62L, Mean Platelet Volume 9.2, Neutrophils (%) (Auto) , Lymphocytes (%) (Auto) , Monocytes (%) (Auto) , Eosinophils (%) (Auto) , Basophils (%) (Auto) , Neutrophils % (Manual) [Pending], Lymphocytes % (Manual) [Pending], Platelet Estimate [Pending], Platelet Morphology [Pending], Sodium Level 137, Potassium Level 4.4, Chloride Level 96L, Carbon Dioxide Level 33H, Anion Gap 8, Blood Urea Nitrogen 85H, Creatinine 9.4H, Estimat Glomerular Filtration Rate 5.7, Glucose Level 101, Calcium Level 7.4L, Prothrombin Time [ Pending], Prothromb Time International Ratio [Pending], Phosphorus Level 6.4H, Magnesium Level 2.0, Total Bilirubin 1.3H, Direct Bilirubin 0.6H, Aspartate Amino Transf (AST/SGOT) 68H, Alanine Aminotransferase (ALT/SGPT) 25, Alkaline Phosphatase 215H, Pro-B-Type Natriuretic Peptide > 92057M, Total Protein 7.0, Albumin 2.6L, Globulin 4.4, Albumin/Globulin Ratio 0.6L 02/26/18 08:00: White Blood Count 9.5, Red Blood Count 2.32L, Hemoglobin 7.1L, Hematocrit 21.2L , Mean Corpuscular Volume 92, Mean Corpuscular Hemoglobin 30.7, Mean Corpuscular Hemoglobin Concent 33.5, Red Cell Distribution Width 15.8H, Platelet Count 60L, Mean Platelet Volume 7.7, Neutrophils (%) (Auto) , Lymphocytes (%) (Auto) , Monocytes (%) (Auto) , Eosinophils (%) (Auto) , Basophils (%) (Auto) , Neutrophils % (Manual) [Pending], Lymphocytes % (Manual) [Pending], Platelet Estimate [Pending], Platelet Morphology [Pending] Height (Feet): 5 Height (Inches): 7.00 Weight (Pounds): 132 General Appearance: alert EENT: TMs normal Neck: supple Cardiovascular: regular rhythm Respiratory/Chest: no respiratory distress Abdomen: no mass Extremities: non-tender Edema: 1+ Leg (L), 1+ Leg (R) Edema: mild edema Neurologic: alert Skin: warm/dry Tristen Lewis MD February 26, 2018 08:35
[2018-02-26 09:15] LABS: INR 2.6 (0.9-1.1)
[2018-02-26] MEDS: Docusate 100mg/10ml Liq NG SCH ×3 (09:59→18:21)
--- NOTE | 2018-02-26 10:14 | Pulmonology Progress Note ---
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 titrate fio2 to sat of 92% check Hemoglobin, remains around 7 n Epogen and Folic acid as well all meds reviewed med/surg if ok wiht cardio Subjective ROS Limited/Unobtainable: No Constitutional: Reports: no symptoms HEENT: Repors: no symptoms Respiratory: Reports: no symptoms Allergies: Coded Allergies: No Known Allergies (Unverified , 02/02/18) Objective Last 24 Hour Vital Signs Date Time Temp Pulse Resp B/P (MAP) Pulse Ox O2 Delivery O2 Flow Rate FiO2 02/26/18 09:59 89 119/49 02/26/18 07:23 99.9 02/26/18 06:24 101.0 02/26/18 05:58 119/49 02/26/18 04:00 99.9 89 26 125/58 98 Nasal Cannula 4.5 99.9 02/26/18 00:00 99.3 88 24 98/45 96 Nasal Cannula 4.5 99.3 02/25/18 21:35 102.7 02/25/18 21:20 129/52 02/25/18 20:00 102.7 105 30 129/52 Nasal Cannula 4.5 102.7 02/25/18 16:11 Nasal Cannula 4.5 02/25/18 16:00 98.2 58 20 116/60 Nasal Cannula 4.5 98.2 02/25/18 16:00 99 02/25/18 12:30 100.0 20 129/60 Nasal Cannula 4.5 100.0 02/25/18 12:00 102 02/25/18 12:00 Nasal Cannula 4.5 02/25/18 12:00 102.8 104 20 145/62 94 Nasal Cannula 2.0 102.8 02/25/18 11:04 102.8 Intake and Output 02/25/18 02/26/18 19:00 07:00 Intake Total 1291 ml Output Total 791 ml 2 ml Balance -791 ml 1289 ml Free Water 100 ml Hemodialysis 791 ml Other 400 ml Stool Total 2 ml Hemodialysis UF 791 ml # Bowel Movements 1 1 Objective General Appearance: WD/WN HEENT: normocephalic, atraumatic Respiratory/Chest: chest wall non-tender, lungs clear Cardiovascular: normal peripheral pulses, normal rate, regular rhythm Abdomen: normal bowel sounds, soft, non tender, no organomegaly, non distended Extremities: no cyanosis, no clubbing, no edema Skin: no rash, no lesions 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 Microbiology Date/Time Source Procedure Growth Status 02/24/18 21:20 Blood Blood Culture - Preliminary NO GROWTH AFTER 24 HOURS Resulted 02/24/18 21:10 Blood Blood Culture - Preliminary NO GROWTH AFTER 24 HOURS Resulted Laboratory Tests 02/25/18 12:45: White Blood Count 7.3, Red Blood Count 1.89L, Hemoglobin 5.8*L, Hematocrit 17.9L , Mean Corpuscular Volume 95, Mean Corpuscular Hemoglobin 30.5, Mean Corpuscular Hemoglobin Concent 32.2, Red Cell Distribution Width 16.5H, Platelet Count 67L, Mean Platelet Volume 7.1, Neutrophils (%) (Auto) , Lymphocytes (%) (Auto) , Monocytes (%) (Auto) , Eosinophils (%) (Auto) , Basophils (%) (Auto) , Differential Total Cells Counted 100, Neutrophils % ( Manual) 83H, Lymphocytes % (Manual) 11L, Monocytes % (Manual) 4, Eosinophils % ( Manual) 1, Basophils % (Manual) 1, Band Neutrophils 0, Platelet Estimate DecreasedL, Platelet Morphology Normal, Hypochromasia 4+, Anisocytosis 1+, Spherocytes 2+, Sodium Level 138, Potassium Level 5.2H, Chloride Level 99, Carbon Dioxide Level 24, Anion Gap 15, Blood Urea Nitrogen 122H, Creatinine 12.8H, Estimat Glomerular Filtration Rate 4.0, Glucose Level 95, Lactic Acid Level 0.60L, Calcium Level 8.1L 02/25/18 12:50: Prothrombin Time 16.4H, Prothromb Time International Ratio 1.6H 02/26/18 04:00: White Blood Count 8.9, Red Blood Count 2.19L, Hemoglobin 6.7*L, Hematocrit 20.0L , Mean Corpuscular Volume 91, Mean Corpuscular Hemoglobin 30.7, Mean Corpuscular Hemoglobin Concent 33.6, Red Cell Distribution Width 16.0H, Platelet Count 67L, Mean Platelet Volume 9.4, Neutrophils (%) (Auto) , Lymphocytes (%) (Auto) , Monocytes (%) (Auto) , Eosinophils (%) (Auto) , Basophils (%) (Auto) 02/26/18 06:30: White Blood Count 9.4, Red Blood Count 2.25L, Hemoglobin 6.9*L, Hematocrit 20.6L , Mean Corpuscular Volume 91, Mean Corpuscular Hemoglobin 30.6, Mean Corpuscular Hemoglobin Concent 33.5, Red Cell Distribution Width 15.6H, Platelet Count 62L, Mean Platelet Volume 9.2, Neutrophils (%) (Auto) , Lymphocytes (%) (Auto) , Monocytes (%) (Auto) , Eosinophils (%) (Auto) , Basophils (%) (Auto) , Differential Total Cells Counted 100, Neutrophils % ( Manual) 73, Lymphocytes % (Manual) 14L, Monocytes % (Manual) 9, Eosinophils % ( Manual) 2, Basophils % (Manual) 0, Band Neutrophils 2, Platelet Estimate DecreasedL, Platelet Morphology Normal, Hypochromasia 1+, Anisocytosis 1+, Sodium Level 137, Potassium Level 4.4, Chloride Level 96L, Carbon Dioxide Level 33H, Anion Gap 8, Blood Urea Nitrogen 85H, Creatinine 9.4H, Estimat Glomerular Filtration Rate 5.7, Glucose Level 101, Calcium Level 7.4L, Polychromasia 1+, Phosphorus Level 6.4H, Magnesium Level 2.0, Total Bilirubin 1.3H, Direct Bilirubin 0.6H, Aspartate Amino Transf (AST/SGOT) 68H, Alanine Aminotransferase (ALT/SGPT) 25, Alkaline Phosphatase 215H, Pro-B-Type Natriuretic Peptide > 17449N, Total Protein 7.0, Albumin 2.6L, Globulin 4.4, Albumin/Globulin Ratio 0.6L 02/26/18 08:00: White Blood Count 9.5, Red Blood Count 2.32L, Hemoglobin 7.1L, Hematocrit 21.2L , Mean Corpuscular Volume 92, Mean Corpuscular Hemoglobin 30.7, Mean Corpuscular Hemoglobin Concent 33.5, Red Cell Distribution Width 15.8H, Platelet Count 60L, Mean Platelet Volume 7.7, Neutrophils (%) (Auto) , Lymphocytes (%) (Auto) , Monocytes (%) (Auto) , Eosinophils (%) (Auto) , Basophils (%) (Auto) , Differential Total Cells Counted 100, Neutrophils % ( Manual) 79H, Lymphocytes % (Manual) 13L, Monocytes % (Manual) 7, Eosinophils % ( Manual) 0, Basophils % (Manual) 0, Band Neutrophils 1, Platelet Estimate DecreasedL, Platelet Morphology Normal, Polychromasia 1+, Hypochromasia 1+, Anisocytosis 1+, HIV (1&2) Antibody Rapid Negative 02/26/18 08:30: Prothrombin Time 26.6H, Prothromb Time International Ratio 2.6H, Hepatitis A IgM Antibody [Pending], Hepatitis B Surface Antigen [Pending], Hepatitis B Core IgM Antibody [Pending], Hepatitis C Antibody [Pending] Current Medications Medications (Trade) Dose Ordered Sig/Blessing Route PRN Reason Start Time Stop Time Status Last Admin Dose Admin Acetaminophen (Tylenol) 500 mg 3XW PRN ORAL WITH DIALYSIS 02/25/18 09:00 03/27/18 08:59 Acetaminophen (Tylenol) 650 mg Q4H PRN RECTAL Mild Pain/Temp > 100.5 02/24/18 17:15 03/26/18 17:14 02/25/18 07:14 Acetaminophen (Tylenol) 650 mg Q6H PRN ORAL Mild Pain/Temp > 100.5 02/23/18 11:00 03/25/18 10:59 02/26/18 06:24 Amlodipine Besylate (Norvasc) 10 mg DAILY ORAL 02/24/18 09:00 03/25/18 08:59 02/26/18 09:59 Clonidine HCl (Catapres Tab) 0.1 mg EVERY 8 HOURS PRN ORAL FOR BP > 160. 02/23/18 10:45 03/25/18 10:44 02/25/18 04:55 Diphenhydramine HCl (Benadryl) 50 mg Q6H PRN ORAL Itching 02/23/18 11:00 03/25/18 10:59 Docusate Sodium (Colace) 100 mg THREE TIMES A DAY NG 02/25/18 09:00 03/27/18 08:59 02/26/18 09:59 Epoetin Alfonzo (Procrit (for ESRD on dialysis)) 10,000 units SUN-WED-SUN SUBQ 02/25/18 21:00 03/27/18 20:59 02/25/18 21:21 Folic Acid (Folate) 1 mg DAILY ORAL 02/24/18 09:00 03/26/18 08:59 02/26/18 09:59 Gabapentin (Neurontin) 300 mg THREE TIMES A DAY ORAL 02/23/18 13:00 03/25/18 12:59 02/26/18 10:00 Haloperidol Lactate (Haldol) 5 mg Q4H PRN IM AGITATION 02/23/18 11:00 03/25/18 10:59 02/26/18 04:16 Hydralazine HCl (Apresoline) 10 mg Q2H PRN IV For High Blood Pressure 02/24/18 18:30 03/26/18 18:29 Hydralazine HCl (Apresoline) 25 mg Q8HR ORAL 02/23/18 15:00 03/25/18 14:59 02/25/18 21:20 Lansoprazole (Prevacid) 30 mg DAILY ORAL 02/24/18 09:00 03/11/18 08:59 02/26/18 10:00 Linezolid (Zyvox) 600 mg EVERY 12 HOURS ORAL 02/25/18 21:00 03/02/18 20:59 02/26/18 09:59 Nicotine (Nicoderm) 1 patch Q24H TDERMAL 02/24/18 09:00 03/26/18 08:59 02/26/18 09:59 Oxycodone/ Acetaminophen (Percocet 5-325) 1 tab Q4H PRN ORAL Severe Pain (Pain Scale 7-10) 02/23/18 11:00 03/02/18 10:59 02/24/18 06:09 Prochlorperazine (Compazine) 10 mg Q6H PRN IVP Nausea & Vomiting 02/23/18 11:00 03/25/18 10:59 Quetiapine Fumarate (SEROquel) 25 mg QHS ORAL 02/23/18 21:00 03/25/18 20:59 02/25/18 21:19 Sevelamer Carbonate (Renvela) 2,400 mg THREE TIMES A DAY ORAL 02/23/18 14:58 03/25/18 14:57 02/26/18 09:59 Clement Mcleod MD February 26, 2018 10:14
--- NOTE | 2018-02-26 11:24 | Nephrology Progress Note ---
Assessment/Plan Problem List: (1) ESRD (end stage renal disease) on dialysis (2) Acute hyperkalemia (3) Hypertension, uncontrolled (4) Left leg DVT (5) Anemia in chronic kidney disease (CKD) Assessment in [facility] stop mind altering meds ESRD, on admission missed dialysis . has high K on admission has fistula right arm Sever Anemia h/o Amyloidosis COPD Plan HD next 02/27 Transfusion as needed Kayexelate as needed BP control, meds adjusted has IVC filter add phos binders Subjective ROS Limited/Unobtainable: No Constitutional: Reports: malaise, weakness Objective Objective Last 24 Hour Vital Signs Date Time Temp Pulse Resp B/P (MAP) Pulse Ox O2 Delivery O2 Flow Rate FiO2 02/26/18 09:59 89 119/49 02/26/18 08:00 98.5 82 22 126/63 98 Nasal Cannula 4.0 98.5 02/26/18 07:23 99.9 02/26/18 06:24 101.0 02/26/18 05:58 119/49 02/26/18 04:00 99.9 89 26 125/58 98 Nasal Cannula 4.5 99.9 02/26/18 00:00 99.3 88 24 98/45 96 Nasal Cannula 4.5 99.3 02/25/18 21:35 102.7 02/25/18 21:20 129/52 02/25/18 20:00 102.7 105 30 129/52 Nasal Cannula 4.5 102.7 02/25/18 16:11 Nasal Cannula 4.5 02/25/18 16:00 98.2 58 20 116/60 Nasal Cannula 4.5 98.2 02/25/18 16:00 99 02/25/18 12:30 100.0 20 129/60 Nasal Cannula 4.5 100.0 02/25/18 12:00 102 02/25/18 12:00 Nasal Cannula 4.5 02/25/18 12:00 102.8 104 20 145/62 94 Nasal Cannula 2.0 102.8 Intake and Output 02/25/18 02/26/18 19:00 07:00 Intake Total 1291 ml Output Total 791 ml 2 ml Balance -791 ml 1289 ml Free Water 100 ml Hemodialysis 791 ml Other 400 ml Stool Total 2 ml Hemodialysis UF 791 ml # Bowel Movements 1 1 Laboratory Tests 02/25/18 12:45: White Blood Count 7.3, Red Blood Count 1.89L, Hemoglobin 5.8*L, Hematocrit 17.9L , Mean Corpuscular Volume 95, Mean Corpuscular Hemoglobin 30.5, Mean Corpuscular Hemoglobin Concent 32.2, Red Cell Distribution Width 16.5H, Platelet Count 67L, Mean Platelet Volume 7.1, Neutrophils (%) (Auto) , Lymphocytes (%) (Auto) , Monocytes (%) (Auto) , Eosinophils (%) (Auto) , Basophils (%) (Auto) , Differential Total Cells Counted 100, Neutrophils % ( Manual) 83H, Lymphocytes % (Manual) 11L, Monocytes % (Manual) 4, Eosinophils % ( Manual) 1, Basophils % (Manual) 1, Band Neutrophils 0, Platelet Estimate DecreasedL, Platelet Morphology Normal, Hypochromasia 4+, Anisocytosis 1+, Spherocytes 2+, Sodium Level 138, Potassium Level 5.2H, Chloride Level 99, Carbon Dioxide Level 24, Anion Gap 15, Blood Urea Nitrogen 122H, Creatinine 12.8H, Estimat Glomerular Filtration Rate 4.0, Glucose Level 95, Lactic Acid Level 0.60L, Calcium Level 8.1L 02/25/18 12:50: Prothrombin Time 16.4H, Prothromb Time International Ratio 1.6H 02/26/18 04:00: White Blood Count 8.9, Red Blood Count 2.19L, Hemoglobin 6.7*L, Hematocrit 20.0L , Mean Corpuscular Volume 91, Mean Corpuscular Hemoglobin 30.7, Mean Corpuscular Hemoglobin Concent 33.6, Red Cell Distribution Width 16.0H, Platelet Count 67L, Mean Platelet Volume 9.4, Neutrophils (%) (Auto) , Lymphocytes (%) (Auto) , Monocytes (%) (Auto) , Eosinophils (%) (Auto) , Basophils (%) (Auto) 02/26/18 06:30: White Blood Count 9.4, Red Blood Count 2.25L, Hemoglobin 6.9*L, Hematocrit 20.6L , Mean Corpuscular Volume 91, Mean Corpuscular Hemoglobin 30.6, Mean Corpuscular Hemoglobin Concent 33.5, Red Cell Distribution Width 15.6H, Platelet Count 62L, Mean Platelet Volume 9.2, Neutrophils (%) (Auto) , Lymphocytes (%) (Auto) , Monocytes (%) (Auto) , Eosinophils (%) (Auto) , Basophils (%) (Auto) , Differential Total Cells Counted 100, Neutrophils % ( Manual) 73, Lymphocytes % (Manual) 14L, Monocytes % (Manual) 9, Eosinophils % ( Manual) 2, Basophils % (Manual) 0, Band Neutrophils 2, Platelet Estimate DecreasedL, Platelet Morphology Normal, Hypochromasia 1+, Anisocytosis 1+, Sodium Level 137, Potassium Level 4.4, Chloride Level 96L, Carbon Dioxide Level 33H, Anion Gap 8, Blood Urea Nitrogen 85H, Creatinine 9.4H, Estimat Glomerular Filtration Rate 5.7, Glucose Level 101, Calcium Level 7.4L, Polychromasia 1+, Phosphorus Level 6.4H, Magnesium Level 2.0, Total Bilirubin 1.3H, Direct Bilirubin 0.6H, Aspartate Amino Transf (AST/SGOT) 68H, Alanine Aminotransferase (ALT/SGPT) 25, Alkaline Phosphatase 215H, Pro-B-Type Natriuretic Peptide > 03414Z, Total Protein 7.0, Albumin 2.6L, Globulin 4.4, Albumin/Globulin Ratio 0.6L 02/26/18 08:00: White Blood Count 9.5, Red Blood Count 2.32L, Hemoglobin 7.1L, Hematocrit 21.2L , Mean Corpuscular Volume 92, Mean Corpuscular Hemoglobin 30.7, Mean Corpuscular Hemoglobin Concent 33.5, Red Cell Distribution Width 15.8H, Platelet Count 60L, Mean Platelet Volume 7.7, Neutrophils (%) (Auto) , Lymphocytes (%) (Auto) , Monocytes (%) (Auto) , Eosinophils (%) (Auto) , Basophils (%) (Auto) , Differential Total Cells Counted 100, Neutrophils % ( Manual) 79H, Lymphocytes % (Manual) 13L, Monocytes % (Manual) 7, Eosinophils % ( Manual) 0, Basophils % (Manual) 0, Band Neutrophils 1, Platelet Estimate DecreasedL, Platelet Morphology Normal, Polychromasia 1+, Hypochromasia 1+, Anisocytosis 1+, HIV (1&2) Antibody Rapid Negative 02/26/18 08:30: Prothrombin Time 26.6H, Prothromb Time International Ratio 2.6H, Hepatitis A IgM Antibody [Pending], Hepatitis B Surface Antigen [Pending], Hepatitis B Core IgM Antibody [Pending], Hepatitis C Antibody [Pending] Height (Feet): 5 Height (Inches): 7.00 Weight (Pounds): 132 General Appearance: no apparent distress, lethargic Cardiovascular: tachycardia Respiratory/Chest: decreased breath sounds Abdomen: distended Objective no change DALTON ROSENTHAL February 26, 2018 11:24
--- NOTE | 2018-02-26 11:28 | Diagnostic Imaging Report ---
Indication: Status post central line placement Technique: One view of the chest Comparison: 02/19/2018 Findings: There is mild bilateral interstitial edema, less extensive than on the prior study. Previously demonstrated right-sided pleural effusion has nearly resolved. Interim placement of a left jugular central venous catheter, tip which projects at the level of the cavoatrial junction. No pneumothorax demonstrated. Interim placement of a nasogastric tube, tip of which projects at the level gastric body/antrum junction. Again demonstrated is an inferior vena cava filter Impression: Satisfactory nasogastric intubation Satisfactory position of left jugular central venous catheter, surgical clearance. No radiographically evident complication Pulmonary interstitial edema, improved from 02/19/2018 Decreased right pleural effusion This agrees with the preliminary interpretation provided overnight by [facility] teleradiology service.
[2018-02-26 12:00] VITALS: BP 107/62
--- NOTE | 2018-02-26 13:00 | Cardiology Progress Note ---
Assessment/Plan Assessment/Plan 1. Hypertension. 2. End-stage renal disease, on hemodialysis. 3. Anemia. 4. History of GI bleed secondary to AVMs. 5. Acute deep venous thrombosis, left leg. 6. History of femoral neck fracture 7. acute diastolic heart failure ctpa neg for pe has ivc filter inplace already dilaysis / uf tele noted sinus not a candidate or chronic anticoag due to recurrent anemia hd recurrent anemai bp seem fien is confused Subjective Cardiovascular: Denies: chest pain, lightheadedness, palpitations Respiratory: Denies: shortness of breath Gastrointestinal/Abdominal: Denies: abdominal pain Genitourinary: Denies: burning Subjective confused Objective Last 24 Hour Vital Signs Date Time Temp Pulse Resp B/P (MAP) Pulse Ox O2 Delivery O2 Flow Rate FiO2 02/26/18 12:00 98.5 85 22 107/62 98 Nasal Cannula 4.0 98.5 02/26/18 09:59 89 119/49 02/26/18 08:00 98.5 82 22 126/63 98 Nasal Cannula 4.0 98.5 02/26/18 07:23 99.9 02/26/18 06:24 101.0 02/26/18 05:58 119/49 02/26/18 04:00 99.9 89 26 125/58 98 Nasal Cannula 4.5 99.9 02/26/18 00:00 99.3 88 24 98/45 96 Nasal Cannula 4.5 99.3 02/25/18 21:35 102.7 02/25/18 21:20 129/52 02/25/18 20:00 102.7 105 30 129/52 Nasal Cannula 4.5 102.7 02/25/18 16:11 Nasal Cannula 4.5 02/25/18 16:00 98.2 58 20 116/60 Nasal Cannula 4.5 98.2 02/25/18 16:00 99 General Appearance: no apparent distress Neck: supple Cardiovascular: normal rate, regular rhythm Respiratory/Chest: rhonchi - bilaterally Abdomen: normal bowel sounds, non tender, soft Extremities: non-tender, no swelling Intake and Output 02/25/18 02/26/18 19:00 07:00 Intake Total 1291 ml Output Total 791 ml 2 ml Balance -791 ml 1289 ml Free Water 100 ml Hemodialysis 791 ml Other 400 ml Stool Total 2 ml Hemodialysis UF 791 ml # Bowel Movements 1 1 Laboratory Tests Test 02/26/18 04:00 02/26/18 06:30 02/26/18 08:00 02/26/18 08:30 White Blood Count 8.9 K/UL (4.8-10.8) 9.4 K/UL (4.8-10.8) 9.5 K/UL (4.8-10.8) Red Blood Count 2.19 M/UL (4.70-6.10) L 2.25 M/UL (4.70-6.10) L 2.32 M/UL (4.70-6.10) L Hemoglobin 6.7 G/DL (14.2-18.0) *L 6.9 G/DL (14.2-18.0) *L 7.1 G/DL (14.2-18.0) L Hematocrit 20.0 % (42.0-52.0) L 20.6 % (42.0-52.0) L 21.2 % (42.0-52.0) L Mean Corpuscular Volume 91 FL (80-99) 91 FL (80-99) 92 FL (80-99) Mean Corpuscular Hemoglobin 30.7 PG (27.0-31.0) 30.6 PG (27.0-31.0) 30.7 PG (27.0-31.0) Mean Corpuscular Hemoglobin Concent 33.6 G/DL (32.0-36.0) 33.5 G/DL (32.0-36.0) 33.5 G/DL (32.0-36.0) Red Cell Distribution Width 16.0 % (11.6-14.8) H 15.6 % (11.6-14.8) H 15.8 % (11.6-14.8) H Platelet Count 67 K/UL (150-450) L 62 K/UL (150-450) L 60 K/UL (150-450) L Mean Platelet Volume 9.4 FL (6.5-10.1) 9.2 FL (6.5-10.1) 7.7 FL (6.5-10.1) Neutrophils (%) (Auto) % (45.0-75.0) % (45.0-75.0) % (45.0-75.0) Lymphocytes (%) (Auto) % (20.0-45.0) % (20.0-45.0) % (20.0-45.0) Monocytes (%) (Auto) % (1.0-10.0) % (1.0-10.0) % (1.0-10.0) Eosinophils (%) (Auto) % (0.0-3.0) % (0.0-3.0) % (0.0-3.0) Basophils (%) (Auto) % (0.0-2.0) % (0.0-2.0) % (0.0-2.0) Differential Total Cells Counted 100 100 Neutrophils % (Manual) 73 % (45-75) 79 % (45-75) H Lymphocytes % (Manual) 14 % (20-45) L 13 % (20-45) L Monocytes % (Manual) 9 % (1-10) 7 % (1-10) Eosinophils % (Manual) 2 % (0-3) 0 % (0-3) Basophils % (Manual) 0 % (0-2) 0 % (0-2) Band Neutrophils 2 % (0-8) 1 % (0-8) Platelet Estimate Decreased L Decreased L Platelet Morphology Normal Normal Polychromasia 1+ 1+ Hypochromasia 1+ 1+ Anisocytosis 1+ 1+ Sodium Level 137 MMOL/L (136-145) Potassium Level 4.4 MMOL/L (3.5-5.1) Chloride Level 96 MMOL/L (98-107) L Carbon Dioxide Level 33 MMOL/L (21-32) H Anion Gap 8 mmol/L (5-15) Blood Urea Nitrogen 85 mg/dL (7-18) H Creatinine 9.4 MG/DL (0.55-1.30) H Estimat Glomerular Filtration Rate 5.7 mL/min (>60) Glucose Level 101 MG/DL (74-106) Calcium Level 7.4 MG/DL (8.5-10.1) L Phosphorus Level 6.4 MG/DL (2.5-4.9) H Magnesium Level 2.0 MG/DL (1.8-2.4) Total Bilirubin 1.3 MG/DL (0.2-1.0) H Direct Bilirubin 0.6 MG/DL (0.0-0.3) H Aspartate Amino Transf (AST/SGOT) 68 U/L (15-37) H Alanine Aminotransferase (ALT/SGPT) 25 U/L (12-78) Alkaline Phosphatase 215 U/L (46-116) H C-Reactive Protein, Quantitative 43.1 mg/dL (0.00-0.90) H Pro-B-Type Natriuretic Peptide > 51665 pg/mL (0-125) H Total Protein 7.0 G/DL (6.4-8.2) Albumin 2.6 G/DL (3.4-5.0) L Globulin 4.4 g/dL Albumin/Globulin Ratio 0.6 (1.0-2.7) L HIV (1&2) Antibody Rapid Negative (NEGATIVE) Prothrombin Time 26.6 SEC (9.30-11.50) H Prothromb Time International Ratio 2.6 (0.9-1.1) H Hepatitis A IgM Antibody Pending Hepatitis B Surface Antigen Pending Hepatitis B Core IgM Antibody Pending Hepatitis C Antibody Pending Microbiology Date/Time Source Procedure Growth Status 02/24/18 21:20 Blood Blood Culture - Preliminary Resulted 02/24/18 21:10 Blood Blood Culture - Preliminary Resulted Jony Becker MD February 26, 2018 13:00
--- NOTE | 2018-02-26 13:13 | Infectious Diseases Prog Note ---
Assessment/Plan Assessment/Plan ASSESSMENT: The patient is a 63-year-old male with, Fever. Bactermia Staphylococcus aureus( m/l 2/2 HD ) Rule out SBE Normal wbc 02/06/ CT of chest [id number] : no evidence of pulmonary emboli, diffuse septal thickening, and bilateral ground glass opacities, and small bilateral pleural effusion. NEg : HIV , Hep panel 02/25 SP Lt IJ Anemia. End-stage renal disease, on hemodialysis. Left leg DVT. Right hip fracture, status post ORIF. History of hepatitis C Splenomegaly. Status post IVC filter placement PLAN: Cont patient on IV vancomycin ( AB Rx d# 2 ) DC Zyvox d# 1 ( pt now has IV Access ) Monitor CBC. Monitor BMP. Monitor blood cultures ( repeat in 24 to 48 hours ) Monitor chest x-ray. repeat 2D echo. to Veg Monitor vital signs Subjective Allergies: Coded Allergies: No Known Allergies (Unverified , 02/02/18) Subjective febrile +ve blood Cx Objective Vital Signs Last 24 Hour Vital Signs Date Time Temp Pulse Resp B/P (MAP) Pulse Ox O2 Delivery O2 Flow Rate FiO2 02/26/18 12:00 98.5 85 22 107/62 98 Nasal Cannula 4.0 98.5 02/26/18 09:59 89 119/49 02/26/18 08:00 98.5 82 22 126/63 98 Nasal Cannula 4.0 98.5 02/26/18 07:23 99.9 02/26/18 06:24 101.0 02/26/18 05:58 119/49 02/26/18 04:00 99.9 89 26 125/58 98 Nasal Cannula 4.5 99.9 02/26/18 00:00 99.3 88 24 98/45 96 Nasal Cannula 4.5 99.3 02/25/18 21:35 102.7 02/25/18 21:20 129/52 02/25/18 20:00 102.7 105 30 129/52 Nasal Cannula 4.5 102.7 02/25/18 16:11 Nasal Cannula 4.5 02/25/18 16:00 98.2 58 20 116/60 Nasal Cannula 4.5 98.2 02/25/18 16:00 99 Height (Feet): 5 Height (Inches): 7.00 Weight (Pounds): 132 HEENT: mucous membranes moist Respiratory/Chest: no accessory muscle use Cardiovascular: regularly irregular Abdomen: no mass Microbiology Date/Time Source Procedure Growth Status 02/24/18 21:20 Blood Blood Culture - Preliminary Resulted 02/24/18 21:10 Blood Blood Culture - Preliminary Resulted Laboratory Tests Test 02/26/18 04:00 02/26/18 06:30 02/26/18 08:00 02/26/18 08:30 White Blood Count 8.9 K/UL (4.8-10.8) 9.4 K/UL (4.8-10.8) 9.5 K/UL (4.8-10.8) Red Blood Count 2.19 M/UL (4.70-6.10) L 2.25 M/UL (4.70-6.10) L 2.32 M/UL (4.70-6.10) L Hemoglobin 6.7 G/DL (14.2-18.0) *L 6.9 G/DL (14.2-18.0) *L 7.1 G/DL (14.2-18.0) L Hematocrit 20.0 % (42.0-52.0) L 20.6 % (42.0-52.0) L 21.2 % (42.0-52.0) L Mean Corpuscular Volume 91 FL (80-99) 91 FL (80-99) 92 FL (80-99) Mean Corpuscular Hemoglobin 30.7 PG (27.0-31.0) 30.6 PG (27.0-31.0) 30.7 PG (27.0-31.0) Mean Corpuscular Hemoglobin Concent 33.6 G/DL (32.0-36.0) 33.5 G/DL (32.0-36.0) 33.5 G/DL (32.0-36.0) Red Cell Distribution Width 16.0 % (11.6-14.8) H 15.6 % (11.6-14.8) H 15.8 % (11.6-14.8) H Platelet Count 67 K/UL (150-450) L 62 K/UL (150-450) L 60 K/UL (150-450) L Mean Platelet Volume 9.4 FL (6.5-10.1) 9.2 FL (6.5-10.1) 7.7 FL (6.5-10.1) Neutrophils (%) (Auto) % (45.0-75.0) % (45.0-75.0) % (45.0-75.0) Lymphocytes (%) (Auto) % (20.0-45.0) % (20.0-45.0) % (20.0-45.0) Monocytes (%) (Auto) % (1.0-10.0) % (1.0-10.0) % (1.0-10.0) Eosinophils (%) (Auto) % (0.0-3.0) % (0.0-3.0) % (0.0-3.0) Basophils (%) (Auto) % (0.0-2.0) % (0.0-2.0) % (0.0-2.0) Differential Total Cells Counted 100 100 Neutrophils % (Manual) 73 % (45-75) 79 % (45-75) H Lymphocytes % (Manual) 14 % (20-45) L 13 % (20-45) L Monocytes % (Manual) 9 % (1-10) 7 % (1-10) Eosinophils % (Manual) 2 % (0-3) 0 % (0-3) Basophils % (Manual) 0 % (0-2) 0 % (0-2) Band Neutrophils 2 % (0-8) 1 % (0-8) Platelet Estimate Decreased L Decreased L Platelet Morphology Normal Normal Polychromasia 1+ 1+ Hypochromasia 1+ 1+ Anisocytosis 1+ 1+ Sodium Level 137 MMOL/L (136-145) Potassium Level 4.4 MMOL/L (3.5-5.1) Chloride Level 96 MMOL/L (98-107) L Carbon Dioxide Level 33 MMOL/L (21-32) H Anion Gap 8 mmol/L (5-15) Blood Urea Nitrogen 85 mg/dL (7-18) H Creatinine 9.4 MG/DL (0.55-1.30) H Estimat Glomerular Filtration Rate 5.7 mL/min (>60) Glucose Level 101 MG/DL (74-106) Calcium Level 7.4 MG/DL (8.5-10.1) L Phosphorus Level 6.4 MG/DL (2.5-4.9) H Magnesium Level 2.0 MG/DL (1.8-2.4) Total Bilirubin 1.3 MG/DL (0.2-1.0) H Direct Bilirubin 0.6 MG/DL (0.0-0.3) H Aspartate Amino Transf (AST/SGOT) 68 U/L (15-37) H Alanine Aminotransferase (ALT/SGPT) 25 U/L (12-78) Alkaline Phosphatase 215 U/L (46-116) H C-Reactive Protein, Quantitative 43.1 mg/dL (0.00-0.90) H Pro-B-Type Natriuretic Peptide > 03000 pg/mL (0-125) H Total Protein 7.0 G/DL (6.4-8.2) Albumin 2.6 G/DL (3.4-5.0) L Globulin 4.4 g/dL Albumin/Globulin Ratio 0.6 (1.0-2.7) L HIV (1&2) Antibody Rapid Negative (NEGATIVE) Prothrombin Time 26.6 SEC (9.30-11.50) H Prothromb Time International Ratio 2.6 (0.9-1.1) H Hepatitis A IgM Antibody Pending Hepatitis B Surface Antigen Pending Hepatitis B Core IgM Antibody Pending Hepatitis C Antibody Pending Current Medications Medications (Trade) Dose Ordered Sig/Blessing Route PRN Reason Start Time Stop Time Status Last Admin Dose Admin Acetaminophen (Tylenol) 500 mg 3XW PRN ORAL WITH DIALYSIS 02/25/18 09:00 03/27/18 08:59 Acetaminophen (Tylenol) 650 mg Q4H PRN RECTAL Mild Pain/Temp > 100.5 02/24/18 17:15 03/26/18 17:14 02/25/18 07:14 Acetaminophen (Tylenol) 650 mg Q6H PRN ORAL Mild Pain/Temp > 100.5 02/23/18 11:00 03/25/18 10:59 02/26/18 06:24 Amlodipine Besylate (Norvasc) 5 mg BID ORAL 02/27/18 09:00 03/29/18 08:59 Chlorhexidine Gluconate (Miriam-Hex 2%) 1 applic DAILY@2000 TOPIC 02/26/18 20:00 03/28/18 19:59 Clonidine HCl (Catapres Tab) 0.1 mg EVERY 4 HOURS PRN ORAL FOR BP > 160. 02/26/18 11:30 03/25/18 10:44 Diphenhydramine HCl (Benadryl) 50 mg Q6H PRN ORAL Itching 02/23/18 11:00 03/25/18 10:59 Docusate Sodium (Colace) 100 mg THREE TIMES A DAY NG 02/25/18 09:00 03/27/18 08:59 02/26/18 09:59 Epoetin Alfonzo (Procrit (for ESRD on dialysis)) 10,000 units SUN-SUN-SUN SUBQ 02/25/18 21:00 03/27/18 20:59 02/25/18 21:21 Folic Acid (Folate) 1 mg DAILY ORAL 02/24/18 09:00 03/26/18 08:59 02/26/18 09:59 Haloperidol Lactate (Haldol) 5 mg Q4H PRN IM AGITATION 02/23/18 11:00 03/25/18 10:59 02/26/18 04:16 Hydralazine HCl (Apresoline) 25 mg Q8HR ORAL 02/23/18 15:00 03/25/18 14:59 02/25/18 21:20 Lansoprazole (Prevacid) 30 mg DAILY ORAL 02/24/18 09:00 03/11/18 08:59 02/26/18 10:00 Linezolid (Zyvox) 600 mg EVERY 12 HOURS ORAL 02/25/18 21:00 03/02/18 20:59 02/26/18 09:59 Nicotine (Nicoderm) 1 patch Q24H TDERMAL 02/24/18 09:00 03/26/18 08:59 02/26/18 09:59 Oxycodone/ Acetaminophen (Percocet 5-325) 1 tab Q4H PRN ORAL Severe Pain (Pain Scale 7-10) 02/23/18 11:00 03/02/18 10:59 02/24/18 06:09 Prochlorperazine (Compazine) 10 mg Q6H PRN IVP Nausea & Vomiting 02/23/18 11:00 03/25/18 10:59 Quetiapine Fumarate (SEROquel) 25 mg QHS ORAL 02/23/18 21:00 03/25/18 20:59 02/25/18 21:19 Sevelamer Carbonate (Renvela) 2,400 mg THREE TIMES A DAY ORAL 02/23/18 14:58 03/25/18 14:57 02/26/18 09:59 Kevin Mendoza MD February 26, 2018 13:13
--- NOTE | 2018-02-26 13:41 | Diagnostic Imaging Report ---
Indication: . Bleed, abnormal liver function tests, abnormal renal function tests, anemia Technique: Richardson-scale and duplex images of the upper abdomen were obtained Comparison: none Findings: Gallbladder is surgically absent. Common bile duct measures 6 mm in diameter. No intrahepatic biliary ductal dilatation. Liver demonstrates normal echogenicity, no focal abnormality. It is slightly enlarged. It demonstrates equivocal slight surface nodularity. Portal vein and hepatic veins are patent. Pancreas is unremarkable. The spleen is enlarged, measuring 20 cm in long axis diameter Left kidney measures 8.3 cm in length. Right kidney measures 7.8 cm length. Both kidneys demonstrate normal echogenicity. There is no hydronephrosis. No focal abnormality . Non-aneurysmal abdominal aorta . Trace free fluid is seen in the epigastric region. Impression: Surgically absent gallbladder. Negative for dilated ducts Hepatomegaly. Equivocal slight hepatic surface nodularity, if real could indicate early cirrhotic changes Splenomegaly Trace ascites
--- NOTE | 2018-02-26 13:56 | Cardiology Report ---
APPROVED REPORT EXAM: Two-dimensional and M-mode echocardiogram with Doppler and color Doppler. INDICATION Endocarditis M-Mode DIMENSIONS IVSd1.3 (0.7-1.1cm)Left Atrium (MM)3.9 (1.6-4.0cm) LVDd4.6 (3.5-5.6cm)Aortic Root3.5 (2.0-3.7cm) PWd2.1 (0.7-1.1cm)Aortic Cusp Exc.1.2 (1.5-2.0cm) LVDs2.5 (2.5-4.0cm) PWs2.0 cm Technically difficult study due to pts position. Normal left ventricular chamber size, systolic function and wall motion to extent visualized. Left ventricular ejection fraction estimated to be 65 %. Mild to moderate left ventricular hypertrophy by 2-D. No evidence of pericardial effusion. Mild left atrial enlargement. Right cardiac chamber sizes are within normal limits. Aortic valve calcification with borderline decreased cusp excursion c/w aoric stenosis Mitral annulus and aortic root calcification. Pulmonic valve not well visualized. Normal tricuspid valve structure. IVC at normal size with physiologic collapse. Over all the echo performed today apprears to shows more brighter echoes than the prior study possibley due to gain settings on the present echoes so the myocardium and the valve leaflet appear to show more echogenecity. A color flow and spectral Doppler study was performed and revealed: Mild aortic regurgitation. Peak aortic valve gradient of 36 mm Hg and a mean of 20 mmHg.Comprared side by side, the prior echo showed PG of 23 mmhg across the aortic vavle , however on the present echo noted to have PG 29 and even 36 mmhg likey due to technical factor. Aortic valve area 1.3 cm2 calculated by continuity equation suggestive of moderate aortic stenosis This measurement was not performed on the prior study. MOderate mitral regurgitation. Peak mitral valve diastolic gradient of 15 mmHg and a mean gradient of 5 mmHg with a calculated mitral valve area of 1.7 cm2 suggestive of moderate mitral stenosis. Mitral inflow velocities indicates possible pseudo normalization pattern implying moderately elevated left atrial pressure (Grade II ). Mild to moderate tricuspid regurgitation. Tricuspid systolic velocities suggests peak right ventricular systolic pressure of 48 mmHg, consistent with moderate pulmonary hypertension. Pulmonic regurgitation present.
--- NOTE | 2018-02-26 15:08 | General Progress Note ---
Assessment/Plan Problem List: (1) Abnormal laboratory test result ICD Codes: R89.9 - Unspecified abnormal finding in specimens from other organs , systems and tissues SNOMED: 425340571 (2) ESRD (end stage renal disease) on dialysis ICD Codes: N18.6 - End stage renal disease; Z99.2 - Dependence on renal dialysis SNOMED: 767452921 (3) Hypertension, uncontrolled ICD Codes: I10 - Essential (primary) hypertension SNOMED: 13383110, 63142933 (4) Symptomatic anemia ICD Codes: D64.9 - Anemia, unspecified SNOMED: 749730337 (5) Acute hyperkalemia ICD Codes: E87.5 - Hyperkalemia SNOMED: 1098634 (6) DVT (deep venous thrombosis) ICD Codes: I82.409 - Acute embolism and thrombosis of unspecified deep veins of unspecified lower extremity SNOMED: 606028717 (7) SOB (shortness of breath) ICD Codes: R06.02 - Shortness of breath SNOMED: 116461470 (8) Respiratory failure ICD Codes: J96.90 - Respiratory failure, unspecified, unspecified whether with hypoxia or hypercapnia SNOMED: 053124763 Status: unchanged Assessment/Plan ot pt diet o2 pulm tx gi/heme f/u anticoag pulm cbc bmp am Subjective Constitutional: Reports: weakness Allergies: Coded Allergies: No Known Allergies (Unverified , 02/02/18) All Systems: reviewed and negative except above Subjective o2nc ng Objective Last 24 Hour Vital Signs Date Time Temp Pulse Resp B/P (MAP) Pulse Ox O2 Delivery O2 Flow Rate FiO2 02/26/18 13:31 129/67 02/26/18 12:00 98.5 85 22 107/62 98 Nasal Cannula 4.0 98.5 02/26/18 09:59 89 119/49 02/26/18 08:00 98.5 82 22 126/63 98 Nasal Cannula 4.0 98.5 02/26/18 07:23 99.9 02/26/18 06:24 101.0 02/26/18 05:58 119/49 02/26/18 04:00 99.9 89 26 125/58 98 Nasal Cannula 4.5 99.9 02/26/18 00:00 99.3 88 24 98/45 96 Nasal Cannula 4.5 99.3 02/25/18 21:35 102.7 02/25/18 21:20 129/52 02/25/18 20:00 102.7 105 30 129/52 Nasal Cannula 4.5 102.7 02/25/18 16:11 Nasal Cannula 4.5 02/25/18 16:00 98.2 58 20 116/60 Nasal Cannula 4.5 98.2 02/25/18 16:00 99 Intake and Output 02/25/18 02/26/18 19:00 07:00 Intake Total 1291 ml Output Total 791 ml 2 ml Balance -791 ml 1289 ml Free Water 100 ml Hemodialysis 791 ml Other 400 ml Stool Total 2 ml Hemodialysis UF 791 ml # Bowel Movements 1 1 Laboratory Tests 02/26/18 04:00: White Blood Count 8.9, Red Blood Count 2.19L, Hemoglobin 6.7*L, Hematocrit 20.0L , Mean Corpuscular Volume 91, Mean Corpuscular Hemoglobin 30.7, Mean Corpuscular Hemoglobin Concent 33.6, Red Cell Distribution Width 16.0H, Platelet Count 67L, Mean Platelet Volume 9.4, Neutrophils (%) (Auto) , Lymphocytes (%) (Auto) , Monocytes (%) (Auto) , Eosinophils (%) (Auto) , Basophils (%) (Auto) 02/26/18 06:30: White Blood Count 9.4, Red Blood Count 2.25L, Hemoglobin 6.9*L, Hematocrit 20.6L , Mean Corpuscular Volume 91, Mean Corpuscular Hemoglobin 30.6, Mean Corpuscular Hemoglobin Concent 33.5, Red Cell Distribution Width 15.6H, Platelet Count 62L, Mean Platelet Volume 9.2, Neutrophils (%) (Auto) , Lymphocytes (%) (Auto) , Monocytes (%) (Auto) , Eosinophils (%) (Auto) , Basophils (%) (Auto) , Differential Total Cells Counted 100, Neutrophils % ( Manual) 73, Lymphocytes % (Manual) 14L, Monocytes % (Manual) 9, Eosinophils % ( Manual) 2, Basophils % (Manual) 0, Band Neutrophils 2, Platelet Estimate DecreasedL, Platelet Morphology Normal, Polychromasia 1+, Hypochromasia 1+, Anisocytosis 1+, Sodium Level 137, Potassium Level 4.4, Chloride Level 96L, Carbon Dioxide Level 33H, Anion Gap 8, Blood Urea Nitrogen 85H, Creatinine 9.4H , Estimat Glomerular Filtration Rate 5.7, Glucose Level 101, Calcium Level 7.4L , Phosphorus Level 6.4H, Magnesium Level 2.0, Total Bilirubin 1.3H, Direct Bilirubin 0.6H, Aspartate Amino Transf (AST/SGOT) 68H, Alanine Aminotransferase (ALT/SGPT) 25, Alkaline Phosphatase 215H, C-Reactive Protein, Quantitative 43.1H , Pro-B-Type Natriuretic Peptide > 36364J, Total Protein 7.0, Albumin 2.6L, Globulin 4.4, Albumin/Globulin Ratio 0.6L 02/26/18 08:00: White Blood Count 9.5, Red Blood Count 2.32L, Hemoglobin 7.1L, Hematocrit 21.2L , Mean Corpuscular Volume 92, Mean Corpuscular Hemoglobin 30.7, Mean Corpuscular Hemoglobin Concent 33.5, Red Cell Distribution Width 15.8H, Platelet Count 60L, Mean Platelet Volume 7.7, Neutrophils (%) (Auto) , Lymphocytes (%) (Auto) , Monocytes (%) (Auto) , Eosinophils (%) (Auto) , Basophils (%) (Auto) , Differential Total Cells Counted 100, Neutrophils % ( Manual) 79H, Lymphocytes % (Manual) 13L, Monocytes % (Manual) 7, Eosinophils % ( Manual) 0, Basophils % (Manual) 0, Band Neutrophils 1, Platelet Estimate DecreasedL, Platelet Morphology Normal, Polychromasia 1+, Hypochromasia 1+, Anisocytosis 1+, HIV (1&2) Antibody Rapid Negative 02/26/18 08:30: Prothrombin Time 26.6H, Prothromb Time International Ratio 2.6H, Hepatitis A IgM Antibody [Pending], Hepatitis B Surface Antigen [Pending], Hepatitis B Core IgM Antibody [Pending], Hepatitis C Antibody [Pending] 02/26/18 13:45: Random Vancomycin Level [Pending] Height (Feet): 5 Height (Inches): 7.00 Weight (Pounds): 132 General Appearance: lethargic EENT: normal ENT inspection Neck: normal alignment Cardiovascular: normal peripheral pulses, normal rate, regular rhythm Respiratory/Chest: chest wall non-tender, decreased breath sounds Abdomen: normal bowel sounds, non tender, soft Extremities: normal inspection Edema: no edema noted Arm (L), no edema noted Arm (R), no edema noted Leg (L), no edema noted Leg (R), no edema noted Pedal (L), no edema noted Pedal (R), no edema noted Generalized Neurologic: motor weakness Skin: normal pigmentation, warm/dry Lebron Swift DO February 26, 2018 15:08
--- NOTE | 2018-02-26 15:44 | GI Progress Note ---
Assessment/Plan Problems: (1) Abnormal LFTs ICD Codes: R94.5 - Abnormal results of liver function studies SNOMED: 640195412 (2) Symptomatic anemia ICD Codes: D64.9 - Anemia, unspecified SNOMED: 966892360 (3) ESRD (end stage renal disease) on dialysis ICD Codes: N18.6 - End stage renal disease; Z99.2 - Dependence on renal dialysis SNOMED: 812936202 Status: stable Status Narrative Discussed with Dr. Matos. Assessment/Plan hx of EGD/colonoscopy 3 months ago per patient, cannot recall location. iron panel WNL OB stool negative fu nephro recs monitor H&H, prn transfusions ppi thiamine fu labs outpatient GI procedures The patient was seen and examined at bedside and all new and available data was reviewed in the patients chart. I agree with the above findings, impression and plan. (Patient seen earlier today. Signature stamp does not reflect patient encounter time.). - Tushar Matos MD Subjective Subjective denies abdominal pain had EGD/colonoscopy x3 months Objective Last 24 Hour Vital Signs Date Time Temp Pulse Resp B/P (MAP) Pulse Ox O2 Delivery O2 Flow Rate FiO2 02/26/18 13:31 129/67 02/26/18 12:00 98.5 85 22 107/62 98 Nasal Cannula 4.0 98.5 02/26/18 09:59 89 119/49 02/26/18 08:00 98.5 82 22 126/63 98 Nasal Cannula 4.0 98.5 02/26/18 07:23 99.9 02/26/18 06:24 101.0 02/26/18 05:58 119/49 02/26/18 04:00 99.9 89 26 125/58 98 Nasal Cannula 4.5 99.9 02/26/18 00:00 99.3 88 24 98/45 96 Nasal Cannula 4.5 99.3 02/25/18 21:35 102.7 02/25/18 21:20 129/52 02/25/18 20:00 102.7 105 30 129/52 Nasal Cannula 4.5 102.7 02/25/18 16:11 Nasal Cannula 4.5 02/25/18 16:00 98.2 58 20 116/60 Nasal Cannula 4.5 98.2 5/14/18 16:00 99 Intake and Output 02/25/18 02/26/18 19:00 07:00 Intake Total 1291 ml Output Total 791 ml 2 ml Balance -791 ml 1289 ml Free Water 100 ml Hemodialysis 791 ml Other 400 ml Stool Total 2 ml Hemodialysis UF 791 ml # Bowel Movements 1 1 Laboratory Tests Test 02/26/18 04:00 02/26/18 06:30 02/26/18 08:00 02/26/18 08:30 White Blood Count 8.9 K/UL (4.8-10.8) 9.4 K/UL (4.8-10.8) 9.5 K/UL (4.8-10.8) Red Blood Count 2.19 M/UL (4.70-6.10) L 2.25 M/UL (4.70-6.10) L 2.32 M/UL (4.70-6.10) L Hemoglobin 6.7 G/DL (14.2-18.0) *L 6.9 G/DL (14.2-18.0) *L 7.1 G/DL (14.2-18.0) L Hematocrit 20.0 % (42.0-52.0) L 20.6 % (42.0-52.0) L 21.2 % (42.0-52.0) L Mean Corpuscular Volume 91 FL (80-99) 91 FL (80-99) 92 FL (80-99) Mean Corpuscular Hemoglobin 30.7 PG (27.0-31.0) 30.6 PG (27.0-31.0) 30.7 PG (27.0-31.0) Mean Corpuscular Hemoglobin Concent 33.6 G/DL (32.0-36.0) 33.5 G/DL (32.0-36.0) 33.5 G/DL (32.0-36.0) Red Cell Distribution Width 16.0 % (11.6-14.8) H 15.6 % (11.6-14.8) H 15.8 % (11.6-14.8) H Platelet Count 67 K/UL (150-450) L 62 K/UL (150-450) L 60 K/UL (150-450) L Mean Platelet Volume 9.4 FL (6.5-10.1) 9.2 FL (6.5-10.1) 7.7 FL (6.5-10.1) Neutrophils (%) (Auto) % (45.0-75.0) % (45.0-75.0) % (45.0-75.0) Lymphocytes (%) (Auto) % (20.0-45.0) % (20.0-45.0) % (20.0-45.0) Monocytes (%) (Auto) % (1.0-10.0) % (1.0-10.0) % (1.0-10.0) Eosinophils (%) (Auto) % (0.0-3.0) % (0.0-3.0) % (0.0-3.0) Basophils (%) (Auto) % (0.0-2.0) % (0.0-2.0) % (0.0-2.0) Differential Total Cells Counted 100 100 Neutrophils % (Manual) 73 % (45-75) 79 % (45-75) H Lymphocytes % (Manual) 14 % (20-45) L 13 % (20-45) L Monocytes % (Manual) 9 % (1-10) 7 % (1-10) Eosinophils % (Manual) 2 % (0-3) 0 % (0-3) Basophils % (Manual) 0 % (0-2) 0 % (0-2) Band Neutrophils 2 % (0-8) 1 % (0-8) Platelet Estimate Decreased L Decreased L Platelet Morphology Normal Normal Polychromasia 1+ 1+ Hypochromasia 1+ 1+ Anisocytosis 1+ 1+ Sodium Level 137 MMOL/L (136-145) Potassium Level 4.4 MMOL/L (3.5-5.1) Chloride Level 96 MMOL/L (98-107) L Carbon Dioxide Level 33 MMOL/L (21-32) H Anion Gap 8 mmol/L (5-15) Blood Urea Nitrogen 85 mg/dL (7-18) H Creatinine 9.4 MG/DL (0.55-1.30) H Estimat Glomerular Filtration Rate 5.7 mL/min (>60) Glucose Level 101 MG/DL (74-106) Calcium Level 7.4 MG/DL (8.5-10.1) L Phosphorus Level 6.4 MG/DL (2.5-4.9) H Magnesium Level 2.0 MG/DL (1.8-2.4) Total Bilirubin 1.3 MG/DL (0.2-1.0) H Direct Bilirubin 0.6 MG/DL (0.0-0.3) H Aspartate Amino Transf (AST/SGOT) 68 U/L (15-37) H Alanine Aminotransferase (ALT/SGPT) 25 U/L (12-78) Alkaline Phosphatase 215 U/L (46-116) H C-Reactive Protein, Quantitative 43.1 mg/dL (0.00-0.90) H Pro-B-Type Natriuretic Peptide > 36737 pg/mL (0-125) H Total Protein 7.0 G/DL (6.4-8.2) Albumin 2.6 G/DL (3.4-5.0) L Globulin 4.4 g/dL Albumin/Globulin Ratio 0.6 (1.0-2.7) L HIV (1&2) Antibody Rapid Negative (NEGATIVE) Prothrombin Time 26.6 SEC (9.30-11.50) H Prothromb Time International Ratio 2.6 (0.9-1.1) H Hepatitis A IgM Antibody Pending Hepatitis B Surface Antigen Pending Hepatitis B Core IgM Antibody Pending Hepatitis C Antibody Pending Height (Feet): 5 Height (Inches): 7.00 Weight (Pounds): 132 General Appearance: WD/WN, no apparent distress, alert Cardiovascular: normal rate Respiratory/Chest: normal breath sounds, no respiratory distress Abdominal Exam: normal bowel sounds, non tender, soft Extremities: normal range of motion, non-tender Meltion Aldana NP February 26, 2018 15:44
[2018-02-26 16:00] VITALS: BP 112/68
--- NOTE | 2018-02-26 17:09 | General Progress Note ---
Assessment/Plan Assessment/Plan (1) Right hip pain (2) Right hip Fracture (3) S/p ORIF of right hip Pt will continued on Percocet HOLD OPIOIDS FOR OVERSEDATION OR SBP<90 OR DBP<60 OR O2SAT<92% OR RR<12 D/w Dr. Childers he concurred. Subjective Date patient seen: February 26, 2018 Time patient seen: 05:00 - pm ROS Limited/Unobtainable: Yes Allergies: Coded Allergies: No Known Allergies (Unverified , 02/02/18) Subjective Patient is in [place] laying in bed and NG tube was placed. He has no pain at this time still confused, parameters to be continued. Objective Last 24 Hour Vital Signs Date Time Temp Pulse Resp B/P (MAP) Pulse Ox O2 Delivery O2 Flow Rate FiO2 02/26/18 16:00 98.2 80 21 112/68 97 Nasal Cannula 4.0 98.2 02/26/18 13:31 129/67 02/26/18 12:00 98.5 85 22 107/62 98 Nasal Cannula 4.0 98.5 02/26/18 09:59 89 119/49 02/26/18 08:00 98.5 82 22 126/63 98 Nasal Cannula 4.0 98.5 02/26/18 07:23 99.9 02/26/18 06:24 101.0 02/26/18 05:58 119/49 02/26/18 04:00 99.9 89 26 125/58 98 Nasal Cannula 4.5 99.9 02/26/18 00:00 99.3 88 24 98/45 96 Nasal Cannula 4.5 99.3 02/25/18 21:35 102.7 02/25/18 21:20 129/52 02/25/18 20:00 102.7 105 30 129/52 Nasal Cannula 4.5 102.7 Intake and Output 02/25/18 02/26/18 19:00 07:00 Intake Total 1291 ml Output Total 791 ml 2 ml Balance -791 ml 1289 ml Free Water 100 ml Hemodialysis 791 ml Other 400 ml Stool Total 2 ml Hemodialysis UF 791 ml # Bowel Movements 1 1 Laboratory Tests 02/26/18 04:00: White Blood Count 8.9, Red Blood Count 2.19L, Hemoglobin 6.7*L, Hematocrit 20.0L , Mean Corpuscular Volume 91, Mean Corpuscular Hemoglobin 30.7, Mean Corpuscular Hemoglobin Concent 33.6, Red Cell Distribution Width 16.0H, Platelet Count 67L, Mean Platelet Volume 9.4, Neutrophils (%) (Auto) , Lymphocytes (%) (Auto) , Monocytes (%) (Auto) , Eosinophils (%) (Auto) , Basophils (%) (Auto) 02/26/18 06:30: White Blood Count 9.4, Red Blood Count 2.25L, Hemoglobin 6.9*L, Hematocrit 20.6L , Mean Corpuscular Volume 91, Mean Corpuscular Hemoglobin 30.6, Mean Corpuscular Hemoglobin Concent 33.5, Red Cell Distribution Width 15.6H, Platelet Count 62L, Mean Platelet Volume 9.2, Neutrophils (%) (Auto) , Lymphocytes (%) (Auto) , Monocytes (%) (Auto) , Eosinophils (%) (Auto) , Basophils (%) (Auto) , Differential Total Cells Counted 100, Neutrophils % ( Manual) 73, Lymphocytes % (Manual) 14L, Monocytes % (Manual) 9, Eosinophils % ( Manual) 2, Basophils % (Manual) 0, Band Neutrophils 2, Platelet Estimate DecreasedL, Platelet Morphology Normal, Polychromasia 1+, Hypochromasia 1+, Anisocytosis 1+, Sodium Level 137, Potassium Level 4.4, Chloride Level 96L, Carbon Dioxide Level 33H, Anion Gap 8, Blood Urea Nitrogen 85H, Creatinine 9.4H , Estimat Glomerular Filtration Rate 5.7, Glucose Level 101, Calcium Level 7.4L , Phosphorus Level 6.4H, Magnesium Level 2.0, Total Bilirubin 1.3H, Direct Bilirubin 0.6H, Aspartate Amino Transf (AST/SGOT) 68H, Alanine Aminotransferase (ALT/SGPT) 25, Alkaline Phosphatase 215H, C-Reactive Protein, Quantitative 43.1H , Pro-B-Type Natriuretic Peptide > 02787N, Total Protein 7.0, Albumin 2.6L, Globulin 4.4, Albumin/Globulin Ratio 0.6L 02/26/18 08:00: White Blood Count 9.5, Red Blood Count 2.32L, Hemoglobin 7.1L, Hematocrit 21.2L , Mean Corpuscular Volume 92, Mean Corpuscular Hemoglobin 30.7, Mean Corpuscular Hemoglobin Concent 33.5, Red Cell Distribution Width 15.8H, Platelet Count 60L, Mean Platelet Volume 7.7, Neutrophils (%) (Auto) , Lymphocytes (%) (Auto) , Monocytes (%) (Auto) , Eosinophils (%) (Auto) , Basophils (%) (Auto) , Differential Total Cells Counted 100, Neutrophils % ( Manual) 79H, Lymphocytes % (Manual) 13L, Monocytes % (Manual) 7, Eosinophils % ( Manual) 0, Basophils % (Manual) 0, Band Neutrophils 1, Platelet Estimate DecreasedL, Platelet Morphology Normal, Polychromasia 1+, Hypochromasia 1+, Anisocytosis 1+, HIV (1&2) Antibody Rapid Negative 02/26/18 08:30: Prothrombin Time 26.6H, Prothromb Time International Ratio 2.6H, Hepatitis A IgM Antibody [Pending], Hepatitis B Surface Antigen [Pending], Hepatitis B Core IgM Antibody [Pending], Hepatitis C Antibody [Pending] Height (Feet): 5 Height (Inches): 7.00 Weight (Pounds): 132 Objective Neck: non-tender, normal alignment, supple, normal inspection Respiratory/Chest: decreased breath sounds Cardiovascular/Chest: normal rate, regular rhythm Abdomen: non tender, soft, no organomegaly Extremities: inflammation - right hip tenderness to palpation Skin Exam: normal pigmentation, warm/dry KANWAL CURRAN N. P.Raj February 26, 2018 17:09
[2018-02-26] MEDS ORDERED: Vancomycin 1250mg/D5W 250ml IVPB ONE (17:30)
[2018-02-26] MEDS ORDERED: NS 500ML ONE (17:45)
[2018-02-26 20:00] VITALS: BP_SYST 112; BP_DIAS 153; BP_DIAS 53
[2018-02-26] MEDS: Dyna-Hex 2% Top Sol 2oz TOPIC SCH (20:00)
[2018-02-27] VITALS (7 sets, daily range): BP systolic 93–118; BP diastolic 49–56
[2018-02-27] MEDS: Haloperidol 5mg/ml Inj IM PRN (00:03)
[2018-02-27 05:06] LABS: HEMATOCRIT 21.2 % (42.0-52.0); HEMOGLOBIN 7.1 G/DL (14.2-18.0); MEAN CORPUSCULAR VOLUME 91 FL (80-99); PLATELET COUNT 55 K/UL (150-450); RED BLOOD COUNT 2.34 M/UL (4.70-6.10); RED CELL DISTRIBUTION WIDTH 16.5 % (11.6-14.8); WHITE BLOOD COUNT 7.1 K/UL (4.8-10.8)
[2018-02-27 05:19] LABS: INR 2.5 (0.9-1.1)
[2018-02-27 05:52] LABS: ALANINE AMINOTRANSFERASE 27 U/L (12-78); ALBUMIN 2.5 G/DL (3.4-5.0); ALBUMIN/GLOBULIN RATIO 0.6 (1.0-2.7); ALKALINE PHOSPHATASE 201 U/L (46-116); ANION GAP 11 mmol/L (5-15); ASPARTATE AMINO TRANSFERASE 49 U/L (15-37); BLOOD UREA NITROGEN 104 mg/dL (7-18); CALCIUM 7.4 MG/DL (8.5-10.1); CARBON DIOXIDE 32 MMOL/L (21-32); CHLORIDE 95 MMOL/L (98-107); CHOLESTEROL 101 MG/DL (< 200); CREATININE 10.5 MG/DL (0.55-1.30); HDL CHOLESTEROL 7 MG/DL (40-60); PHOSPHORUS 7.6 MG/DL (2.5-4.9); POTASSIUM 4.3 MMOL/L (3.5-5.1); SODIUM 138 MMOL/L (136-145); TRIGLYCERIDES 365 MG/DL (30-150)
[2018-02-27] MEDS: HydrALAZINE 25mg tab ORAL SCH (06:50)
[2018-02-27 07:01] LABS: GAMMA GLUTAMYL TRANSPEPTIDASE 61 U/L (5-85)
--- NOTE | 2018-02-27 07:20 | General Progress Note ---
Assessment/Plan Assessment/Plan IMPRESSION/RECS: #. Acute deep venous thrombosis of left lower extremity. --> Status post inferior vena cava filter placement. --> given persistent low h/h and fact that has ivc filter, coumadin discontinued --> based on clinical exam, clot is not worse #. Anemia of gastrointestinal bleed. --> transfuse if hgb <7, workup has been reviewed --> Appreciate gi recs, has been seen by them --> had endoscopy but location unknown #. Thrombocytopenia baseline likely plt count of >50-100k --> likely related to splenomegaly and hepatitis C --> monitor closely for bleed if downtrends though this is less likely --> transfuse to keep plt >20k #. Anemia of kidney disease. 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 Anemia of chronic disease is s/p blood transfusion. #. End-stage renal disease, hemodialysis dependent. --> epo to continue 3x a week #. History of femoral neck fracture. On pain control. #. Acute respiratory failure. #. Hep C ++ Subjective Constitutional: Denies: no symptoms, chills, diaphoresis, fever, malaise, weakness, other HEENT: Denies: no symptoms, eye pain, blurred vision, tearing, double vision, ear pain, ear discharge, nose pain, nose congestion, throat pain, throat swelling, mouth pain, mouth swelling, other Cardiovascular: Denies: no symptoms, chest pain, edema, irregular heart rate, lightheadedness, palpitations, syncope, other Respiratory: Denies: no symptoms, cough, orthopnea, shortness of breath, SOB with excertion, SOB at rest, sputum, stridor, wheezing, other Gastrointestinal/Abdominal: Denies: no symptoms, abdomen distended, abdominal pain, black stools, tarry stools, blood in stool, constipated, diarrhea, difficulty swallowing, nausea, poor appetite, poor fluid intake, rectal bleeding , vomiting, other Genitourinary: Denies: no symptoms, burning, discharge, frequency, flank pain, hematuria, incontinence, pain, urgency, other Neurologic/Psychiatric: Denies: no symptoms, anxiety, depressed, emotional problems, headache, numbness, paresthesia, pre-existing deficit, seizure, tingling, tremors, weakness, other Endocrine: Denies: no symptoms, excessive sweating, flushing, intolerance to cold, intolerance to heat, increased hunger, increased thirst, increased urine, unexplained weight gain, unexplained weight loss, other Hematologic/Lymphatic: Denies: no symptoms, anemia, easy bleeding, easy bruising, other Allergies: Coded Allergies: No Known Allergies (Unverified , 02/02/18) Subjective no events, hd as per renal, holding off on coumadin given the persistent low h/h Objective Last 24 Hour Vital Signs Date Time Temp Pulse Resp B/P (MAP) Pulse Ox O2 Delivery O2 Flow Rate FiO2 02/27/18 06:50 107/52 02/27/18 04:16 71 02/27/18 04:00 97.7 70 20 107/52 99 Nasal Cannula 5.0 97.7 02/27/18 00:00 98.0 70 20 107/52 95 Nasal Cannula 5.0 98.0 02/26/18 23:24 74 02/26/18 23:14 97 Nasal Cannula 2.0 28 02/26/18 23:14 Nasal Cannula 2.0 28 02/26/18 21:29 112/53 02/26/18 20:36 72 02/26/18 20:00 97.4 73 18 112/53 98 Nasal Cannula 5.0 97.4 02/26/18 16:00 98.2 80 21 112/68 97 Nasal Cannula 4.0 98.2 02/26/18 15:33 71 02/26/18 13:31 129/67 02/26/18 12:00 98.5 85 22 107/62 98 Nasal Cannula 4.0 98.5 02/26/18 09:59 89 119/49 02/26/18 08:00 98.5 82 22 126/63 98 Nasal Cannula 4.0 98.5 02/26/18 07:23 99.9 Intake and Output 02/26/18 02/27/18 19:00 07:00 Intake Total 150 ml 460 ml Balance 150 ml 460 ml Free Water 100 ml Tube Feeding 150 ml 360 ml # Bowel Movements 1 Laboratory Tests 02/26/18 08:00: White Blood Count 9.5, Red Blood Count 2.32L, Hemoglobin 7.1L, Hematocrit 21.2L , Mean Corpuscular Volume 92, Mean Corpuscular Hemoglobin 30.7, Mean Corpuscular Hemoglobin Concent 33.5, Red Cell Distribution Width 15.8H, Platelet Count 60L, Mean Platelet Volume 7.7, Neutrophils (%) (Auto) , Lymphocytes (%) (Auto) , Monocytes (%) (Auto) , Eosinophils (%) (Auto) , Basophils (%) (Auto) , Differential Total Cells Counted 100, Neutrophils % ( Manual) 79H, Lymphocytes % (Manual) 13L, Monocytes % (Manual) 7, Eosinophils % ( Manual) 0, Basophils % (Manual) 0, Band Neutrophils 1, Platelet Estimate DecreasedL, Platelet Morphology Normal, Polychromasia 1+, Hypochromasia 1+, Anisocytosis 1+, HIV (1&2) Antibody Rapid Negative 02/26/18 08:30: Prothrombin Time 26.6H, Prothromb Time International Ratio 2.6H, Hepatitis A IgM Antibody [Pending], Hepatitis B Surface Antigen [Pending], Hepatitis B Core IgM Antibody [Pending], Hepatitis C Antibody [Pending] 02/27/18 04:00: White Blood Count 7.1, Red Blood Count 2.34L, Hemoglobin 7.1L, Hematocrit 21.2L , Mean Corpuscular Volume 91, Mean Corpuscular Hemoglobin 30.4, Mean Corpuscular Hemoglobin Concent 33.5, Red Cell Distribution Width 16.5H, Platelet Count 55L, Mean Platelet Volume 8.4, Neutrophils (%) (Auto) , Lymphocytes (%) (Auto) , Monocytes (%) (Auto) , Eosinophils (%) (Auto) , Basophils (%) (Auto) , Neutrophils % (Manual) [Pending], Lymphocytes % (Manual) [Pending], Platelet Estimate [Pending], Platelet Morphology [Pending], Prothrombin Time 25.6H, Prothromb Time International Ratio 2.5H, Activated Partial Thromboplast Time 49H, Sodium Level 138, Potassium Level 4.3, Chloride Level 95L, Carbon Dioxide Level 32, Anion Gap 11, Blood Urea Nitrogen 104H, Creatinine 10.5H, Estimat Glomerular Filtration Rate 5.0, Glucose Level 110H, Hemoglobin A1c 4.1L, Uric Acid 9.0H, Calcium Level 7.4L, Phosphorus Level 7.6H, Magnesium Level 2.4, Total Bilirubin 1.0, Gamma Glutamyl Transpeptidase 61, Aspartate Amino Transf (AST/SGOT) 49H, Alanine Aminotransferase (ALT/SGPT) 27, Alkaline Phosphatase 201H, Ammonia [Pending], Troponin I 0.180H, Pro-B-Type Natriuretic Peptide > 42559G, Total Protein 6.9, Albumin 2.5L, Globulin 4.4, Albumin/Globulin Ratio 0.6L, Triglycerides Level 365H, Cholesterol Level 101, LDL Cholesterol 25, HDL Cholesterol 7L, Cholesterol/HDL Ratio 14.4H, Folate [ Pending] Height (Feet): 5 Height (Inches): 7.00 Weight (Pounds): 132 General Appearance: alert EENT: TMs normal Neck: normal alignment Cardiovascular: regular rhythm Respiratory/Chest: lungs clear Abdomen: soft Extremities: non-tender Edema: 1+ Leg (L), 1+ Leg (R) Edema: mild edema Neurologic: alert Skin: warm/dry Tristen Lewis MD February 27, 2018 07:20
[2018-02-27] MEDS: Docusate 100mg/10ml Liq NG SCH ×3 (08:46→17:51)
--- NOTE | 2018-02-27 08:47 | General Progress Note ---
Assessment/Plan Assessment/Plan (1) Right hip pain (2) Right hip Fracture (3) S/p ORIF of right hip Pt will continued on Percocet HOLD OPIOIDS FOR OVERSEDATION OR SBP<90 OR DBP<60 OR O2SAT<92% OR RR<12 D/w Dr. Childers he concurred. Subjective Date patient seen: February 27, 2018 Time patient seen: 07:00 - am ROS Limited/Unobtainable: Yes Allergies: Coded Allergies: No Known Allergies (Unverified , 02/02/18) Subjective Patient is in [place] laying in bed and NG tube was placed. No signs of pain or distress. In bed lethargic however is answering with nodes. Objective Last 24 Hour Vital Signs Date Time Temp Pulse Resp B/P (MAP) Pulse Ox O2 Delivery O2 Flow Rate FiO2 02/27/18 06:50 107/52 02/27/18 04:16 71 02/27/18 04:00 97.7 70 20 107/52 99 Nasal Cannula 5.0 97.7 02/27/18 00:00 98.0 70 20 107/52 95 Nasal Cannula 5.0 98.0 02/26/18 23:24 74 02/26/18 23:14 97 Nasal Cannula 2.0 28 02/26/18 23:14 Nasal Cannula 2.0 28 02/26/18 21:29 112/53 02/26/18 20:36 72 02/26/18 20:00 97.4 73 18 112/53 98 Nasal Cannula 5.0 97.4 02/26/18 16:00 98.2 80 21 112/68 97 Nasal Cannula 4.0 98.2 02/26/18 15:33 71 02/26/18 13:31 129/67 02/26/18 12:00 98.5 85 22 107/62 98 Nasal Cannula 4.0 98.5 02/26/18 09:59 89 119/49 Intake and Output 02/26/18 02/27/18 19:00 07:00 Intake Total 150 ml 460 ml Balance 150 ml 460 ml Free Water 100 ml Tube Feeding 150 ml 360 ml # Bowel Movements 1 Laboratory Tests 02/27/18 04:00: White Blood Count 7.1, Red Blood Count 2.34L, Hemoglobin 7.1L, Hematocrit 21.2L , Mean Corpuscular Volume 91, Mean Corpuscular Hemoglobin 30.4, Mean Corpuscular Hemoglobin Concent 33.5, Red Cell Distribution Width 16.5H, Platelet Count 55L, Mean Platelet Volume 8.4, Neutrophils (%) (Auto) , Lymphocytes (%) (Auto) , Monocytes (%) (Auto) , Eosinophils (%) (Auto) , Basophils (%) (Auto) , Differential Total Cells Counted 100, Neutrophils % ( Manual) 81H, Lymphocytes % (Manual) 11L, Monocytes % (Manual) 5, Eosinophils % ( Manual) 1, Basophils % (Manual) 1, Band Neutrophils 1, Platelet Estimate DecreasedL, Platelet Morphology Normal, Hypochromasia 1+, Anisocytosis 1+, Prothrombin Time 25.6H, Prothromb Time International Ratio 2.5H, Activated Partial Thromboplast Time 49H, Sodium Level 138, Potassium Level 4.3, Chloride Level 95L, Carbon Dioxide Level 32, Anion Gap 11, Blood Urea Nitrogen 104H, Creatinine 10.5H, Estimat Glomerular Filtration Rate 5.0, Glucose Level 110H, Hemoglobin A1c 4.1L, Uric Acid 9.0H, Calcium Level 7.4L, Phosphorus Level 7.6H, Magnesium Level 2.4, Total Bilirubin 1.0, Gamma Glutamyl Transpeptidase 61, Aspartate Amino Transf (AST/SGOT) 49H, Alanine Aminotransferase (ALT/SGPT) 27, Alkaline Phosphatase 201H, Troponin I 0.180H, Pro-B-Type Natriuretic Peptide > 63872F, Total Protein 6.9, Albumin 2.5L, Globulin 4.4, Albumin/Globulin Ratio 0.6L, Triglycerides Level 365H, Cholesterol Level 101, LDL Cholesterol 25, HDL Cholesterol 7L, Cholesterol/HDL Ratio 14.4H, Folate 19.2 Height (Feet): 5 Height (Inches): 7.00 Weight (Pounds): 132 Objective Neck: non-tender, normal alignment, supple, normal inspection Respiratory/Chest: decreased breath sounds Cardiovascular/Chest: normal rate, regular rhythm Abdomen: non tender, soft, no organomegaly Extremities: inflammation - right hip tenderness to palpation Skin Exam: normal pigmentation, warm/dry KANWAL CURRAN. PMarcelo February 27, 2018 08:47
--- NOTE | 2018-02-27 09:44 | Nephrology Progress Note ---
Assessment/Plan Problem List: (1) ESRD (end stage renal disease) on dialysis (2) Acute hyperkalemia (3) Hypertension, uncontrolled (4) Left leg DVT (5) Anemia in chronic kidney disease (CKD) Assessment in [place] BP low stop mind altering meds ESRD, on admission missed dialysis . has high K on admission has fistula right arm Sever Anemia h/o Amyloidosis COPD Plan HD next 02/27 stop BP meds- on PRN clonidine only Transfusion as needed Kayexelate as needed BP control, meds adjusted has IVC filter add phos binders Subjective ROS Limited/Unobtainable: No Constitutional: Reports: malaise Objective Objective Last 24 Hour Vital Signs Date Time Temp Pulse Resp B/P (MAP) Pulse Ox O2 Delivery O2 Flow Rate FiO2 02/27/18 08:47 73 94/50 02/27/18 08:00 71 02/27/18 06:50 107/52 02/27/18 04:16 71 02/27/18 04:00 97.7 70 20 107/52 99 Nasal Cannula 5.0 97.7 02/27/18 00:00 98.0 70 20 107/52 95 Nasal Cannula 5.0 98.0 02/26/18 23:24 74 02/26/18 23:14 97 Nasal Cannula 2.0 28 02/26/18 23:14 Nasal Cannula 2.0 28 02/26/18 21:29 112/53 02/26/18 20:36 72 02/26/18 20:00 97.4 73 18 112/53 98 Nasal Cannula 5.0 97.4 02/26/18 16:00 98.2 80 21 112/68 97 Nasal Cannula 4.0 98.2 02/26/18 15:33 71 02/26/18 13:31 129/67 02/26/18 12:00 98.5 85 22 107/62 98 Nasal Cannula 4.0 98.5 02/26/18 09:59 89 119/49 Intake and Output 02/26/18 02/27/18 19:00 07:00 Intake Total 150 ml 460 ml Balance 150 ml 460 ml Free Water 100 ml Tube Feeding 150 ml 360 ml # Bowel Movements 1 Laboratory Tests 02/27/18 04:00: White Blood Count 7.1, Red Blood Count 2.34L, Hemoglobin 7.1L, Hematocrit 21.2L , Mean Corpuscular Volume 91, Mean Corpuscular Hemoglobin 30.4, Mean Corpuscular Hemoglobin Concent 33.5, Red Cell Distribution Width 16.5H, Platelet Count 55L, Mean Platelet Volume 8.4, Neutrophils (%) (Auto) , Lymphocytes (%) (Auto) , Monocytes (%) (Auto) , Eosinophils (%) (Auto) , Basophils (%) (Auto) , Differential Total Cells Counted 100, Neutrophils % ( Manual) 81H, Lymphocytes % (Manual) 11L, Monocytes % (Manual) 5, Eosinophils % ( Manual) 1, Basophils % (Manual) 1, Band Neutrophils 1, Platelet Estimate DecreasedL, Platelet Morphology Normal, Hypochromasia 1+, Anisocytosis 1+, Prothrombin Time 25.6H, Prothromb Time International Ratio 2.5H, Activated Partial Thromboplast Time 49H, Sodium Level 138, Potassium Level 4.3, Chloride Level 95L, Carbon Dioxide Level 32, Anion Gap 11, Blood Urea Nitrogen 104H, Creatinine 10.5H, Estimat Glomerular Filtration Rate 5.0, Glucose Level 110H, Hemoglobin A1c 4.1L, Uric Acid 9.0H, Calcium Level 7.4L, Phosphorus Level 7.6H, Magnesium Level 2.4, Total Bilirubin 1.0, Gamma Glutamyl Transpeptidase 61, Aspartate Amino Transf (AST/SGOT) 49H, Alanine Aminotransferase (ALT/SGPT) 27, Alkaline Phosphatase 201H, Troponin I 0.180H, Pro-B-Type Natriuretic Peptide > 41074F, Total Protein 6.9, Albumin 2.5L, Globulin 4.4, Albumin/Globulin Ratio 0.6L, Triglycerides Level 365H, Cholesterol Level 101, LDL Cholesterol 25, HDL Cholesterol 7L, Cholesterol/HDL Ratio 14.4H, Folate 19.2 Height (Feet): 5 Height (Inches): 7.00 Weight (Pounds): 132 General Appearance: no apparent distress Cardiovascular: normal rate Respiratory/Chest: decreased breath sounds Abdomen: distended Objective no change DALTON ROSENTHAL February 27, 2018 09:44
--- NOTE | 2018-02-27 11:30 | Pulmonology Progress Note ---
Assessment/Plan Problems: (1) Acute respiratory failure (2) ESRF (end stage renal failure) (3) Pulmonary edema (4) DVT (deep venous thrombosis) Assessment/Plan Blood pressure better still has NG tube feeding repeat CXR is improving on nasal cannula now HD by eyeglass cutter respiratory treatment titrate fio2 to sat of 92% check Hemoglobin, remains around 7 n Epogen and Folic acid as well all meds reviewed med/surg if ok wiht cardio Subjective ROS Limited/Unobtainable: No Constitutional: Reports: no symptoms HEENT: Repors: no symptoms Respiratory: Reports: no symptoms Allergies: Coded Allergies: No Known Allergies (Unverified , 02/02/18) Objective Last 24 Hour Vital Signs Date Time Temp Pulse Resp B/P (MAP) Pulse Ox O2 Delivery O2 Flow Rate FiO2 02/27/18 08:47 73 94/50 02/27/18 08:00 97.7 73 19 94/50 100 Nasal Cannula 4.0 97.7 02/27/18 08:00 71 02/27/18 06:50 107/52 02/27/18 04:16 71 02/27/18 04:00 97.7 70 20 107/52 99 Nasal Cannula 5.0 97.7 02/27/18 00:00 98.0 70 20 107/52 95 Nasal Cannula 5.0 98.0 02/26/18 23:24 74 02/26/18 23:14 97 Nasal Cannula 2.0 28 02/26/18 23:14 Nasal Cannula 2.0 28 02/26/18 21:29 112/53 02/26/18 20:36 72 02/26/18 20:00 97.4 73 18 112/53 98 Nasal Cannula 5.0 97.4 02/26/18 16:00 98.2 80 21 112/68 97 Nasal Cannula 4.0 98.2 02/26/18 15:33 71 02/26/18 13:31 129/67 02/26/18 12:00 98.5 85 22 107/62 98 Nasal Cannula 4.0 98.5 Intake and Output 02/26/18 02/27/18 19:00 07:00 Intake Total 150 ml 460 ml Balance 150 ml 460 ml Free Water 100 ml Tube Feeding 150 ml 360 ml # Bowel Movements 1 Objective General Appearance: WD/WN HEENT: normocephalic, atraumatic Respiratory/Chest: chest wall non-tender, lungs clear Cardiovascular: normal peripheral pulses, normal rate, regular rhythm Abdomen: normal bowel sounds, soft, non tender, no organomegaly, non distended Extremities: no cyanosis, no clubbing, no edema Skin: no rash, no lesions 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 II-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 grossly normal Microbiology Date/Time Source Procedure Growth Status 02/24/18 21:20 Blood Blood Culture - Preliminary Staphylococcus Aureus Resulted 02/24/18 21:10 Blood Blood Culture - Preliminary Staphylococcus Aureus Resulted Laboratory Tests 02/27/18 04:00: White Blood Count 7.1, Red Blood Count 2.34L, Hemoglobin 7.1L, Hematocrit 21.2L , Mean Corpuscular Volume 91, Mean Corpuscular Hemoglobin 30.4, Mean Corpuscular Hemoglobin Concent 33.5, Red Cell Distribution Width 16.5H, Platelet Count 55L, Mean Platelet Volume 8.4, Neutrophils (%) (Auto) , Lymphocytes (%) (Auto) , Monocytes (%) (Auto) , Eosinophils (%) (Auto) , Basophils (%) (Auto) , Differential Total Cells Counted 100, Neutrophils % ( Manual) 81H, Lymphocytes % (Manual) 11L, Monocytes % (Manual) 5, Eosinophils % ( Manual) 1, Basophils % (Manual) 1, Band Neutrophils 1, Platelet Estimate DecreasedL, Platelet Morphology Normal, Hypochromasia 1+, Anisocytosis 1+, Prothrombin Time 25.6H, Prothromb Time International Ratio 2.5H, Activated Partial Thromboplast Time 49H, Sodium Level 138, Potassium Level 4.3, Chloride Level 95L, Carbon Dioxide Level 32, Anion Gap 11, Blood Urea Nitrogen 104H, Creatinine 10.5H, Estimat Glomerular Filtration Rate 5.0, Glucose Level 110H, Hemoglobin A1c 4.1L, Uric Acid 9.0H, Calcium Level 7.4L, Phosphorus Level 7.6H, Magnesium Level 2.4, Total Bilirubin 1.0, Gamma Glutamyl Transpeptidase 61, Aspartate Amino Transf (AST/SGOT) 49H, Alanine Aminotransferase (ALT/SGPT) 27, Alkaline Phosphatase 201H, Troponin I 0.180H, Pro-B-Type Natriuretic Peptide > 17818T, Total Protein 6.9, Albumin 2.5L, Globulin 4.4, Albumin/Globulin Ratio 0.6L, Triglycerides Level 365H, Cholesterol Level 101, LDL Cholesterol 25, HDL Cholesterol 7L, Cholesterol/HDL Ratio 14.4H, Folate 19.2 02/27/18 09:25: Ammonia 19 Current Medications Medications (Trade) Dose Ordered Sig/Blessing Route PRN Reason Start Time Stop Time Status Last Admin Dose Admin Acetaminophen (Tylenol) 500 mg 3XW PRN ORAL WITH DIALYSIS 02/25/18 09:00 03/27/18 08:59 Acetaminophen (Tylenol) 650 mg Q4H PRN RECTAL Mild Pain/Temp > 100.5 02/24/18 17:15 03/26/18 17:14 02/25/18 07:14 Acetaminophen (Tylenol) 650 mg Q6H PRN ORAL Mild Pain/Temp > 100.5 02/23/18 11:00 03/25/18 10:59 02/26/18 06:24 Chlorhexidine Gluconate (Miriam-Hex 2%) 1 applic DAILY@2000 TOPIC 02/26/18 20:00 03/28/18 19:59 02/26/18 20:00 Clonidine HCl (Catapres Tab) 0.1 mg EVERY 4 HOURS PRN ORAL FOR BP > 160. 02/26/18 11:30 03/25/18 10:44 Diphenhydramine HCl (Benadryl) 50 mg Q6H PRN ORAL Itching 02/23/18 11:00 03/25/18 10:59 Docusate Sodium (Colace) 100 mg THREE TIMES A DAY NG 02/25/18 09:00 03/27/18 08:59 02/27/18 08:46 Epoetin Alfonzo (Procrit (for ESRD on dialysis)) 10,000 units SUN-SUN-SUN SUBQ 02/25/18 21:00 03/27/18 20:59 02/25/18 21:21 Haloperidol Lactate (Haldol) 5 mg Q4H PRN IM AGITATION 02/23/18 11:00 03/25/18 10:59 02/27/18 00:03 Lansoprazole (Prevacid) 30 mg DAILY ORAL 02/24/18 09:00 03/11/18 08:59 02/27/18 08:46 Nicotine (Nicoderm) 1 patch Q24H TDERMAL 02/24/18 09:00 03/26/18 08:59 02/27/18 08:46 Oxycodone/ Acetaminophen (Percocet 5-325) 1 tab Q4H PRN ORAL Severe Pain (Pain Scale 7-10) 02/23/18 11:00 03/02/18 10:59 02/24/18 06:09 Prochlorperazine (Compazine) 10 mg Q6H PRN IVP Nausea & Vomiting 02/23/18 11:00 03/25/18 10:59 Quetiapine Fumarate (SEROquel) 25 mg QHS ORAL 02/23/18 21:00 03/25/18 20:59 02/26/18 21:28 Sevelamer Carbonate (Renvela) 2,400 mg THREE TIMES A DAY ORAL 02/23/18 14:58 03/25/18 14:57 02/27/18 08:46 Vancomycin HCl (Vanco rx to dose) 1 ea DAILY PRN MISC Per rx protocol 02/26/18 16:30 03/28/18 16:29 Clement Mcleod MD February 27, 2018 11:30
--- NOTE | 2018-02-27 13:00 | Progress Note ---
DATE: 02/27/2018 SUBJECTIVE: The patient is a 63-year-old male patient, admitted to [facility]. He has anemia and GI bleeding, but he has altered mental status as well and decline in cognition worsened by stress of his medical illness as well as mood lability. That is why, his attending has requested daily psychiatric consultation to see this patient. MENTAL STATUS EXAMINATION: This is a 63-year-old male. Appearance is disheveled. Attitude, irritable and agitated. Affect, guarded and restricted. Intellect poor. Mood depressed and anxious. Motor activity, psychomotor agitation. Attention span is poor. Orientation x2. Speech is pressured. Thought process, disorganized and illogical. Thought content, auditory hallucinations and paranoid delusions. Insight and judgment is poor. DIAGNOSIS: Major depression with psychotic features. PLAN: Treat this patient with a medication regimen consisting of Seroquel 25 mg at bedtime. An 18 to 20 minutes of supportive psychotherapy provided. Chart reviewed and discussed with staff. The patient is seen and assessed at bedside. In addition to 18 to 20 minutes of supportive psychotherapy, the plan is also to treat this patient with psychotropic medication regimen consisting of Seroquel 25 mg at bedtime. Rony Corral M.D. DR: PAM JOB#: [id number] CC:
--- NOTE | 2018-02-27 13:16 | GI Progress Note ---
Assessment/Plan Problems: (1) Abnormal LFTs ICD Codes: R94.5 - Abnormal results of liver function studies SNOMED: 655765381 (2) Symptomatic anemia ICD Codes: D64.9 - Anemia, unspecified SNOMED: 483208628 (3) ESRD (end stage renal disease) on dialysis ICD Codes: N18.6 - End stage renal disease; Z99.2 - Dependence on renal dialysis SNOMED: 960140053 Status: unchanged Status Narrative Discussed with Dr. Matos. Assessment/Plan hx of EGD/colonoscopy 3 months ago per patient, cannot recall location. iron panel WNL OB stool negative fu nephro recs monitor H&H, prn transfusions ppi thiamine fu labs outpatient GI procedures The patient was seen and examined at bedside and all new and available data was reviewed in the patients chart. I agree with the above findings, impression and plan. (Patient seen earlier today. Signature stamp does not reflect patient encounter time.). - Tushar Matos MD Subjective Subjective denies abdominal pain had EGD/colonoscopy x3 months Objective Last 24 Hour Vital Signs Date Time Temp Pulse Resp B/P (MAP) Pulse Ox O2 Delivery O2 Flow Rate FiO2 02/27/18 12:00 81 02/27/18 08:47 73 94/50 02/27/18 08:00 97.7 73 19 94/50 100 Nasal Cannula 4.0 97.7 02/27/18 08:00 71 02/27/18 06:50 107/52 02/27/18 04:16 71 02/27/18 04:00 97.7 70 20 107/52 99 Nasal Cannula 5.0 97.7 02/27/18 00:00 98.0 70 20 107/52 95 Nasal Cannula 5.0 98.0 02/26/18 23:24 74 02/26/18 23:14 97 Nasal Cannula 2.0 28 02/26/18 23:14 Nasal Cannula 2.0 28 02/26/18 21:29 112/53 02/26/18 20:36 72 02/26/18 20:00 97.4 73 18 112/53 98 Nasal Cannula 5.0 97.4 02/26/18 16:00 98.2 80 21 112/68 97 Nasal Cannula 4.0 98.2 02/26/18 15:33 71 02/26/18 13:31 129/67 Intake and Output 02/26/18 02/27/18 19:00 07:00 Intake Total 150 ml 460 ml Balance 150 ml 460 ml Free Water 100 ml Tube Feeding 150 ml 360 ml # Bowel Movements 1 Laboratory Tests Test 02/27/18 04:00 02/27/18 09:25 White Blood Count 7.1 K/UL (4.8-10.8) Red Blood Count 2.34 M/UL (4.70-6.10) L Hemoglobin 7.1 G/DL (14.2-18.0) L Hematocrit 21.2 % (42.0-52.0) L Mean Corpuscular Volume 91 FL (80-99) Mean Corpuscular Hemoglobin 30.4 PG (27.0-31.0) Mean Corpuscular Hemoglobin Concent 33.5 G/DL (32.0-36.0) Red Cell Distribution Width 16.5 % (11.6-14.8) H Platelet Count 55 K/UL (150-450) L Mean Platelet Volume 8.4 FL (6.5-10.1) Neutrophils (%) (Auto) % (45.0-75.0) Lymphocytes (%) (Auto) % (20.0-45.0) Monocytes (%) (Auto) % (1.0-10.0) Eosinophils (%) (Auto) % (0.0-3.0) Basophils (%) (Auto) % (0.0-2.0) Differential Total Cells Counted 100 Neutrophils % (Manual) 81 % (45-75) H Lymphocytes % (Manual) 11 % (20-45) L Monocytes % (Manual) 5 % (1-10) Eosinophils % (Manual) 1 % (0-3) Basophils % (Manual) 1 % (0-2) Band Neutrophils 1 % (0-8) Platelet Estimate Decreased L Platelet Morphology Normal Hypochromasia 1+ Anisocytosis 1+ Prothrombin Time 25.6 SEC (9.30-11.50) H Prothromb Time International Ratio 2.5 (0.9-1.1) H Activated Partial Thromboplast Time 49 SEC (23-33) H Sodium Level 138 MMOL/L (136-145) Potassium Level 4.3 MMOL/L (3.5-5.1) Chloride Level 95 MMOL/L (98-107) L Carbon Dioxide Level 32 MMOL/L (21-32) Anion Gap 11 mmol/L (5-15) Blood Urea Nitrogen 104 mg/dL (7-18) H Creatinine 10.5 MG/DL (0.55-1.30) H Estimat Glomerular Filtration Rate 5.0 mL/min (>60) Glucose Level 110 MG/DL (74-106) H Hemoglobin A1c 4.1 % (4.3-6.0) L Uric Acid 9.0 MG/DL (2.6-7.2) H Calcium Level 7.4 MG/DL (8.5-10.1) L Phosphorus Level 7.6 MG/DL (2.5-4.9) H Magnesium Level 2.4 MG/DL (1.8-2.4) Total Bilirubin 1.0 MG/DL (0.2-1.0) Gamma Glutamyl Transpeptidase 61 U/L (5-85) Aspartate Amino Transf (AST/SGOT) 49 U/L (15-37) H Alanine Aminotransferase (ALT/SGPT) 27 U/L (12-78) Alkaline Phosphatase 201 U/L (46-116) H Troponin I 0.180 ng/mL (0.000-0.056) Pro-B-Type Natriuretic Peptide > 68047 pg/mL (0-125) H Total Protein 6.9 G/DL (6.4-8.2) Albumin 2.5 G/DL (3.4-5.0) L Globulin 4.4 g/dL Albumin/Globulin Ratio 0.6 (1.0-2.7) L Triglycerides Level 365 MG/DL (30-150) H Cholesterol Level 101 MG/DL (< 200) LDL Cholesterol 25 mg/dL (<100) HDL Cholesterol 7 MG/DL (40-60) L Cholesterol/HDL Ratio 14.4 (3.3-4.4) H Folate 19.2 NG/ML (8.6-58.9) Ammonia 19 umol/L (11-32) Height (Feet): 5 Height (Inches): 7.00 Weight (Pounds): 132 General Appearance: WD/WN, no apparent distress, alert Cardiovascular: normal rate Respiratory/Chest: normal breath sounds, no respiratory distress Abdominal Exam: normal bowel sounds, non tender, soft Extremities: normal range of motion, non-tender Aldana,Freya-Jose SAWMILL SUPERVISOR February 27, 2018 13:16
--- NOTE | 2018-02-27 14:42 | General Progress Note ---
Assessment/Plan Problem List: (1) Abnormal laboratory test result ICD Codes: R89.9 - Unspecified abnormal finding in specimens from other organs , systems and tissues SNOMED: 136464217 (2) ESRD (end stage renal disease) on dialysis ICD Codes: N18.6 - End stage renal disease; Z99.2 - Dependence on renal dialysis SNOMED: 193326330 (3) Hypertension, uncontrolled ICD Codes: I10 - Essential (primary) hypertension SNOMED: 67623943, 24548494 (4) Symptomatic anemia ICD Codes: D64.9 - Anemia, unspecified SNOMED: 867495487 (5) Acute hyperkalemia ICD Codes: E87.5 - Hyperkalemia SNOMED: 3205534 (6) DVT (deep venous thrombosis) ICD Codes: I82.409 - Acute embolism and thrombosis of unspecified deep veins of unspecified lower extremity SNOMED: 523870581 (7) SOB (shortness of breath) ICD Codes: R06.02 - Shortness of breath SNOMED: 530809608 (8) Respiratory failure ICD Codes: J96.90 - Respiratory failure, unspecified, unspecified whether with hypoxia or hypercapnia SNOMED: 649596279 Status: unchanged Assessment/Plan ot pt diet o2 pulm tx gi/heme f/u anticoag pulm cbc bmp am Subjective Constitutional: Reports: weakness Allergies: Coded Allergies: No Known Allergies (Unverified , 02/02/18) All Systems: reviewed and negative except above Subjective o2nc ng Objective Last 24 Hour Vital Signs Date Time Temp Pulse Resp B/P (MAP) Pulse Ox O2 Delivery O2 Flow Rate FiO2 02/27/18 12:00 81 02/27/18 12:00 98.5 80 19 93/49 94 Nasal Cannula 4.0 98.5 02/27/18 08:47 73 94/50 02/27/18 08:00 97.7 73 19 94/50 100 Nasal Cannula 4.0 97.7 02/27/18 08:00 71 02/27/18 06:50 107/52 02/27/18 04:16 71 02/27/18 04:00 97.7 70 20 107/52 99 Nasal Cannula 5.0 97.7 02/27/18 00:00 98.0 70 20 107/52 95 Nasal Cannula 5.0 98.0 02/26/18 23:24 74 02/26/18 23:14 97 Nasal Cannula 2.0 28 02/26/18 23:14 Nasal Cannula 2.0 28 02/26/18 21:29 112/53 02/26/18 20:36 72 02/26/18 20:00 97.4 73 18 112/53 98 Nasal Cannula 5.0 97.4 02/26/18 16:00 98.2 80 21 112/68 97 Nasal Cannula 4.0 98.2 02/26/18 15:33 71 Intake and Output 02/26/18 02/27/18 19:00 07:00 Intake Total 150 ml 460 ml Balance 150 ml 460 ml Free Water 100 ml Tube Feeding 150 ml 360 ml # Bowel Movements 1 Laboratory Tests 02/27/18 04:00: White Blood Count 7.1, Red Blood Count 2.34L, Hemoglobin 7.1L, Hematocrit 21.2L , Mean Corpuscular Volume 91, Mean Corpuscular Hemoglobin 30.4, Mean Corpuscular Hemoglobin Concent 33.5, Red Cell Distribution Width 16.5H, Platelet Count 55L, Mean Platelet Volume 8.4, Neutrophils (%) (Auto) , Lymphocytes (%) (Auto) , Monocytes (%) (Auto) , Eosinophils (%) (Auto) , Basophils (%) (Auto) , Differential Total Cells Counted 100, Neutrophils % ( Manual) 81H, Lymphocytes % (Manual) 11L, Monocytes % (Manual) 5, Eosinophils % ( Manual) 1, Basophils % (Manual) 1, Band Neutrophils 1, Platelet Estimate DecreasedL, Platelet Morphology Normal, Hypochromasia 1+, Anisocytosis 1+, Prothrombin Time 25.6H, Prothromb Time International Ratio 2.5H, Activated Partial Thromboplast Time 49H, Sodium Level 138, Potassium Level 4.3, Chloride Level 95L, Carbon Dioxide Level 32, Anion Gap 11, Blood Urea Nitrogen 104H, Creatinine 10.5H, Estimat Glomerular Filtration Rate 5.0, Glucose Level 110H, Hemoglobin A1c 4.1L, Uric Acid 9.0H, Calcium Level 7.4L, Phosphorus Level 7.6H, Magnesium Level 2.4, Total Bilirubin 1.0, Gamma Glutamyl Transpeptidase 61, Aspartate Amino Transf (AST/SGOT) 49H, Alanine Aminotransferase (ALT/SGPT) 27, Alkaline Phosphatase 201H, Troponin I 0.180H, Pro-B-Type Natriuretic Peptide > 11241A, Total Protein 6.9, Albumin 2.5L, Globulin 4.4, Albumin/Globulin Ratio 0.6L, Triglycerides Level 365H, Cholesterol Level 101, LDL Cholesterol 25, HDL Cholesterol 7L, Cholesterol/HDL Ratio 14.4H, Folate 19.2 02/27/18 09:25: Ammonia 19 Height (Feet): 5 Height (Inches): 7.00 Weight (Pounds): 132 General Appearance: lethargic EENT: normal ENT inspection Neck: normal alignment Cardiovascular: normal peripheral pulses, normal rate, regular rhythm Respiratory/Chest: chest wall non-tender, decreased breath sounds Abdomen: normal bowel sounds, non tender, soft Extremities: normal inspection Edema: no edema noted Arm (L), no edema noted Arm (R), no edema noted Leg (L), no edema noted Leg (R), no edema noted Pedal (L), no edema noted Pedal (R), no edema noted Generalized Neurologic: motor weakness Skin: normal pigmentation, warm/dry Lebron Swift DO February 27, 2018 14:41
--- NOTE | 2018-02-27 18:14 | Infectious Diseases Prog Note ---
Assessment/Plan Assessment/Plan ASSESSMENT: The patient is a 63-year-old male with, Fever, SP Bactermia Staphylococcus aureus( m/l 2/2 HD ) 02/26 2DEcho limited but no Veg Normal wbc 02/06/ CT of chest [id number] : no evidence of pulmonary emboli, diffuse septal thickening, and bilateral ground glass opacities, and small bilateral pleural effusion. NEg : HIV , Hep panel 02/25 SP Lt IJ Anemia. End-stage renal disease, on hemodialysis. Left leg DVT. Right hip fracture, status post ORIF. History of hepatitis C Splenomegaly. Status post IVC filter placement PLAN: Cont patient on IV vancomycin ( AB Rx d# 3 ) SP 02/26 Zyvox d# 1 ( pt now has IV Access ) Monitor CBC. Monitor BMP. Monitor blood cultures ( repeat in 24 ) Monitor chest x-ray. Monitor vital signs Subjective Allergies: Coded Allergies: No Known Allergies (Unverified , 02/02/18) Subjective afebrile Objective Vital Signs Last 24 Hour Vital Signs Date Time Temp Pulse Resp B/P (MAP) Pulse Ox O2 Delivery O2 Flow Rate FiO2 02/27/18 16:00 81 02/27/18 16:00 98.9 85 20 114/52 93 Nasal Cannula 4.0 98.9 02/27/18 12:00 81 02/27/18 12:00 98.5 80 19 93/49 94 Nasal Cannula 4.0 98.5 02/27/18 08:47 73 94/50 02/27/18 08:00 97.7 73 19 94/50 100 Nasal Cannula 4.0 97.7 02/27/18 08:00 71 02/27/18 06:50 107/52 02/27/18 04:16 71 02/27/18 04:00 97.7 70 20 107/52 99 Nasal Cannula 5.0 97.7 02/27/18 00:00 98.0 70 20 107/52 95 Nasal Cannula 5.0 98.0 02/26/18 23:24 74 02/26/18 23:14 97 Nasal Cannula 2.0 28 02/26/18 23:14 Nasal Cannula 2.0 28 02/26/18 21:29 112/53 02/26/18 20:36 72 02/26/18 20:00 97.4 73 18 112/53 98 Nasal Cannula 5.0 97.4 Height (Feet): 5 Height (Inches): 7.00 Weight (Pounds): 132 HEENT: anicteric Respiratory/Chest: lungs clear Cardiovascular: normal rate Abdomen: soft, non tender Microbiology Date/Time Source Procedure Growth Status 02/24/18 21:20 Blood Blood Culture - Preliminary Staphylococcus Aureus Resulted 02/24/18 21:10 Blood Blood Culture - Preliminary Staphylococcus Aureus Resulted Laboratory Tests Test 02/27/18 04:00 02/27/18 09:25 White Blood Count 7.1 K/UL (4.8-10.8) Red Blood Count 2.34 M/UL (4.70-6.10) L Hemoglobin 7.1 G/DL (14.2-18.0) L Hematocrit 21.2 % (42.0-52.0) L Mean Corpuscular Volume 91 FL (80-99) Mean Corpuscular Hemoglobin 30.4 PG (27.0-31.0) Mean Corpuscular Hemoglobin Concent 33.5 G/DL (32.0-36.0) Red Cell Distribution Width 16.5 % (11.6-14.8) H Platelet Count 55 K/UL (150-450) L Mean Platelet Volume 8.4 FL (6.5-10.1) Neutrophils (%) (Auto) % (45.0-75.0) Lymphocytes (%) (Auto) % (20.0-45.0) Monocytes (%) (Auto) % (1.0-10.0) Eosinophils (%) (Auto) % (0.0-3.0) Basophils (%) (Auto) % (0.0-2.0) Differential Total Cells Counted 100 Neutrophils % (Manual) 81 % (45-75) H Lymphocytes % (Manual) 11 % (20-45) L Monocytes % (Manual) 5 % (1-10) Eosinophils % (Manual) 1 % (0-3) Basophils % (Manual) 1 % (0-2) Band Neutrophils 1 % (0-8) Platelet Estimate Decreased L Platelet Morphology Normal Hypochromasia 1+ Anisocytosis 1+ Prothrombin Time 25.6 SEC (9.30-11.50) H Prothromb Time International Ratio 2.5 (0.9-1.1) H Activated Partial Thromboplast Time 49 SEC (23-33) H Sodium Level 138 MMOL/L (136-145) Potassium Level 4.3 MMOL/L (3.5-5.1) Chloride Level 95 MMOL/L (98-107) L Carbon Dioxide Level 32 MMOL/L (21-32) Anion Gap 11 mmol/L (5-15) Blood Urea Nitrogen 104 mg/dL (7-18) H Creatinine 10.5 MG/DL (0.55-1.30) H Estimat Glomerular Filtration Rate 5.0 mL/min (>60) Glucose Level 110 MG/DL (74-106) H Hemoglobin A1c 4.1 % (4.3-6.0) L Uric Acid 9.0 MG/DL (2.6-7.2) H Calcium Level 7.4 MG/DL (8.5-10.1) L Phosphorus Level 7.6 MG/DL (2.5-4.9) H Magnesium Level 2.4 MG/DL (1.8-2.4) Total Bilirubin 1.0 MG/DL (0.2-1.0) Gamma Glutamyl Transpeptidase 61 U/L (5-85) Aspartate Amino Transf (AST/SGOT) 49 U/L (15-37) H Alanine Aminotransferase (ALT/SGPT) 27 U/L (12-78) Alkaline Phosphatase 201 U/L (46-116) H Troponin I 0.180 ng/mL (0.000-0.056) Pro-B-Type Natriuretic Peptide > 01632 pg/mL (0-125) H Total Protein 6.9 G/DL (6.4-8.2) Albumin 2.5 G/DL (3.4-5.0) L Globulin 4.4 g/dL Albumin/Globulin Ratio 0.6 (1.0-2.7) L Triglycerides Level 365 MG/DL (30-150) H Cholesterol Level 101 MG/DL (< 200) LDL Cholesterol 25 mg/dL (<100) HDL Cholesterol 7 MG/DL (40-60) L Cholesterol/HDL Ratio 14.4 (3.3-4.4) H Folate 19.2 NG/ML (8.6-58.9) Ammonia 19 umol/L (11-32) Current Medications Medications (Trade) Dose Ordered Sig/Blessing Route PRN Reason Start Time Stop Time Status Last Admin Dose Admin Acetaminophen (Tylenol) 500 mg 3XW PRN ORAL WITH DIALYSIS 02/25/18 09:00 03/27/18 08:59 Acetaminophen (Tylenol) 650 mg Q4H PRN RECTAL Mild Pain/Temp > 100.5 02/24/18 17:15 03/26/18 17:14 02/25/18 07:14 Acetaminophen (Tylenol) 650 mg Q6H PRN ORAL Mild Pain/Temp > 100.5 02/23/18 11:00 03/25/18 10:59 02/26/18 06:24 Chlorhexidine Gluconate (Miriam-Hex 2%) 1 applic DAILY@2000 TOPIC 02/26/18 20:00 03/28/18 19:59 02/26/18 20:00 Clonidine HCl (Catapres Tab) 0.1 mg EVERY 4 HOURS PRN ORAL FOR BP > 160. 02/26/18 11:30 03/25/18 10:44 Diphenhydramine HCl (Benadryl) 50 mg Q6H PRN ORAL Itching 02/23/18 11:00 03/25/18 10:59 Docusate Sodium (Colace) 100 mg THREE TIMES A DAY NG 02/25/18 09:00 03/27/18 08:59 02/27/18 17:51 Epoetin Alfonzo (Procrit (for ESRD on dialysis)) 10,000 units SUN-SUN-SUN SUBQ 02/25/18 21:00 03/27/18 20:59 02/25/18 21:21 Haloperidol Lactate (Haldol) 5 mg Q4H PRN IM AGITATION 02/23/18 11:00 03/25/18 10:59 02/27/18 00:03 Lansoprazole (Prevacid) 30 mg DAILY ORAL 02/24/18 09:00 03/11/18 08:59 02/27/18 08:46 Nicotine (Nicoderm) 1 patch Q24H TDERMAL 02/24/18 09:00 03/26/18 08:59 02/27/18 08:46 Oxycodone/ Acetaminophen (Percocet 5-325) 1 tab Q4H PRN ORAL Severe Pain (Pain Scale 7-10) 02/23/18 11:00 03/02/18 10:59 02/24/18 06:09 Prochlorperazine (Compazine) 10 mg Q6H PRN IVP Nausea & Vomiting 02/23/18 11:00 03/25/18 10:59 Quetiapine Fumarate (SEROquel) 25 mg QHS ORAL 02/23/18 21:00 03/25/18 20:59 02/26/18 21:28 Sevelamer Carbonate (Renvela) 2,400 mg THREE TIMES A DAY ORAL 02/23/18 14:58 03/25/18 14:57 02/27/18 17:52 Vancomycin HCl (Vanco rx to dose) 1 ea DAILY PRN MISC Per rx protocol 02/26/18 16:30 03/28/18 16:29 Kevin Mendoza MD February 27, 2018 18:14
--- NOTE | 2018-02-27 20:43 | Cardiology Progress Note ---
Assessment/Plan Assessment/Plan 1. Hypertension. 2. End-stage renal disease, on hemodialysis. 3. Anemia. 4. History of GI bleed secondary to AVMs. 5. Acute deep venous thrombosis, left leg. 6. History of femoral neck fracture 7. acute diastolic heart failure ctpa neg for pe has ivc filter inplace already dilaysis / uf tele noted sinus had recurrent anemia now stable for 2 days bp seem low agree with dc of norvasc is confused Subjective ROS Limited/Unobtainable: Yes Cardiovascular: Denies: chest pain Respiratory: Denies: shortness of breath Subjective confused now on dialysis Objective Last 24 Hour Vital Signs Date Time Temp Pulse Resp B/P (MAP) Pulse Ox O2 Delivery O2 Flow Rate FiO2 02/27/18 16:00 81 02/27/18 16:00 98.9 85 20 114/52 93 Nasal Cannula 4.0 98.9 02/27/18 12:00 81 02/27/18 12:00 98.5 80 19 93/49 94 Nasal Cannula 4.0 98.5 02/27/18 08:47 73 94/50 02/27/18 08:00 97.7 73 19 94/50 100 Nasal Cannula 4.0 97.7 02/27/18 08:00 71 02/27/18 06:50 107/52 02/27/18 04:16 71 02/27/18 04:00 97.7 70 20 107/52 99 Nasal Cannula 5.0 97.7 02/27/18 00:00 98.0 70 20 107/52 95 Nasal Cannula 5.0 98.0 02/26/18 23:24 74 02/26/18 23:14 97 Nasal Cannula 2.0 28 02/26/18 23:14 Nasal Cannula 2.0 28 02/26/18 21:29 112/53 General Appearance: alert Cardiovascular: normal rate Respiratory/Chest: lungs clear, normal breath sounds Abdomen: normal bowel sounds, non tender, soft Extremities: no swelling Intake and Output 02/26/18 02/27/18 19:00 07:00 Intake Total 150 ml 460 ml Balance 150 ml 460 ml Free Water 100 ml Tube Feeding 150 ml 360 ml # Bowel Movements 1 Laboratory Tests Test 02/27/18 04:00 02/27/18 09:25 White Blood Count 7.1 K/UL (4.8-10.8) Red Blood Count 2.34 M/UL (4.70-6.10) L Hemoglobin 7.1 G/DL (14.2-18.0) L Hematocrit 21.2 % (42.0-52.0) L Mean Corpuscular Volume 91 FL (80-99) Mean Corpuscular Hemoglobin 30.4 PG (27.0-31.0) Mean Corpuscular Hemoglobin Concent 33.5 G/DL (32.0-36.0) Red Cell Distribution Width 16.5 % (11.6-14.8) H Platelet Count 55 K/UL (150-450) L Mean Platelet Volume 8.4 FL (6.5-10.1) Neutrophils (%) (Auto) % (45.0-75.0) Lymphocytes (%) (Auto) % (20.0-45.0) Monocytes (%) (Auto) % (1.0-10.0) Eosinophils (%) (Auto) % (0.0-3.0) Basophils (%) (Auto) % (0.0-2.0) Differential Total Cells Counted 100 Neutrophils % (Manual) 81 % (45-75) H Lymphocytes % (Manual) 11 % (20-45) L Monocytes % (Manual) 5 % (1-10) Eosinophils % (Manual) 1 % (0-3) Basophils % (Manual) 1 % (0-2) Band Neutrophils 1 % (0-8) Platelet Estimate Decreased L Platelet Morphology Normal Hypochromasia 1+ Anisocytosis 1+ Prothrombin Time 25.6 SEC (9.30-11.50) H Prothromb Time International Ratio 2.5 (0.9-1.1) H Activated Partial Thromboplast Time 49 SEC (23-33) H Sodium Level 138 MMOL/L (136-145) Potassium Level 4.3 MMOL/L (3.5-5.1) Chloride Level 95 MMOL/L (98-107) L Carbon Dioxide Level 32 MMOL/L (21-32) Anion Gap 11 mmol/L (5-15) Blood Urea Nitrogen 104 mg/dL (7-18) H Creatinine 10.5 MG/DL (0.55-1.30) H Estimat Glomerular Filtration Rate 5.0 mL/min (>60) Glucose Level 110 MG/DL (74-106) H Hemoglobin A1c 4.1 % (4.3-6.0) L Uric Acid 9.0 MG/DL (2.6-7.2) H Calcium Level 7.4 MG/DL (8.5-10.1) L Phosphorus Level 7.6 MG/DL (2.5-4.9) H Magnesium Level 2.4 MG/DL (1.8-2.4) Total Bilirubin 1.0 MG/DL (0.2-1.0) Gamma Glutamyl Transpeptidase 61 U/L (5-85) Aspartate Amino Transf (AST/SGOT) 49 U/L (15-37) H Alanine Aminotransferase (ALT/SGPT) 27 U/L (12-78) Alkaline Phosphatase 201 U/L (46-116) H Troponin I 0.180 ng/mL (0.000-0.056) Pro-B-Type Natriuretic Peptide > 21600 pg/mL (0-125) H Total Protein 6.9 G/DL (6.4-8.2) Albumin 2.5 G/DL (3.4-5.0) L Globulin 4.4 g/dL Albumin/Globulin Ratio 0.6 (1.0-2.7) L Triglycerides Level 365 MG/DL (30-150) H Cholesterol Level 101 MG/DL (< 200) LDL Cholesterol 25 mg/dL (<100) HDL Cholesterol 7 MG/DL (40-60) L Cholesterol/HDL Ratio 14.4 (3.3-4.4) H Folate 19.2 NG/ML (8.6-58.9) Ammonia 19 umol/L (11-32) Microbiology Date/Time Source Procedure Growth Status 02/24/18 21:20 Blood Blood Culture - Preliminary Staphylococcus Aureus Resulted 02/24/18 21:10 Blood Blood Culture - Preliminary Staphylococcus Aureus Resulted Jony Becker MD February 27, 2018 20:43
[2018-02-27] MEDS ORDERED: NS 275ml ONE (22:19)
[2018-02-27] MEDS ORDERED: NS 500ML ONE (22:19)
[2018-02-27] MEDS ORDERED: Tubing IV Secondary IV ONE (22:19)
[2018-02-28] VITALS (8 sets, daily range): BP systolic 99–135; BP diastolic 43–74
[2018-02-28] MEDS: Dyna-Hex 2% Top Sol 2oz TOPIC SCH ×2 (00:22→20:02)
[2018-02-28] MEDS: Epogen (for ESRD on dialysis) SUBQ SCH (00:23)
[2018-02-28] MEDS: Acetaminophen 650 MG SUPP RECTAL PRN (04:12)
--- NOTE | 2018-02-28 08:00 | Progress Note ---
DATE: 02/28/2018 HISTORY OF PRESENT ILLNESS: This is a 63-year-old male patient. He is in the [facility] secondary to anemia and GI bleeding, but he also has altered mental status and confusion. Cognition has declined below baseline. That is why, his attending physician has requested daily psychiatric consultation to reduce his mood lability and agitation. MENTAL STATUS EXAMINATION: This patient is a 63-year-old male. Appearance is disheveled. Attitude, irritable and agitated. Affect, guarded and restricted. Intellect poor. Mood, depressed and anxious. Motor activity, psychomotor agitation. Attention span is poor. Orientation x2. Speech is pressured. Thought process, disorganized and illogical. Thought content, auditory hallucinations and paranoid delusions. Insight and judgment is poor. DIAGNOSIS: Major depression with psychotic features. PLAN: Treat him with Seroquel 25 mg at bedtime. Provided 18 to 20 minutes of supportive psychotherapy. Chart reviewed and discussed with staff. Seen and assessed at bedside. Rony Corral M.D. DR: MICHELLE JOB#: [id number] CC:
[2018-02-28 08:19] LABS: ANION GAP 7 mmol/L (5-15); BLOOD UREA NITROGEN 58 mg/dL (7-18); CARBON DIOXIDE 34 MMOL/L (21-32); CHLORIDE 97 MMOL/L (98-107); CREATININE 6.3 MG/DL (0.55-1.30); POTASSIUM 3.4 MMOL/L (3.5-5.1); SODIUM 138 MMOL/L (136-145)
[2018-02-28 08:20] LABS: HEMATOCRIT 20.1 % (42.0-52.0); MEAN CORPUSCULAR VOLUME 92 FL (80-99); PLATELET COUNT 68 K/UL (150-450); RED BLOOD COUNT 2.18 M/UL (4.70-6.10); RED CELL DISTRIBUTION WIDTH 16.3 % (11.6-14.8)
[2018-02-28 08:28] LABS: HEMOGLOBIN 6.7 G/DL (14.2-18.0)
--- NOTE | 2018-02-28 08:48 | General Progress Note ---
Assessment/Plan Assessment/Plan (1) Right hip pain (2) Right hip Fracture (3) S/p ORIF of right hip Pt will continued on Percocet HOLD OPIOIDS FOR OVERSEDATION OR SBP<90 OR DBP<60 OR O2SAT<92% OR RR<12 D/w Dr. Childers he concurred. Subjective Date patient seen: February 28, 2018 Time patient seen: 07:00 - am Allergies: Coded Allergies: No Known Allergies (Unverified , 02/02/18) Subjective Patient is in [place] laying in bed more responsive AA&Ox1. He has no signs of pain or distress at this time. Objective Last 24 Hour Vital Signs Date Time Temp Pulse Resp B/P (MAP) Pulse Ox O2 Delivery O2 Flow Rate FiO2 02/28/18 08:26 82 02/28/18 04:42 99.9 02/28/18 04:12 102.2 02/28/18 04:00 102.2 92 26 118/43 93 Venturi Mask 35 102.2 02/28/18 03:46 97 02/28/18 00:47 99.7 80 20 99/44 93 Nasal Cannula 4.0 99.7 02/27/18 23:34 Nasal Cannula 4.0 02/27/18 23:33 99.7 80 24 118/56 Nasal Cannula 4.0 99.7 02/27/18 23:28 84 02/27/18 21:35 Nasal Cannula 4.0 28 02/27/18 20:00 100.0 93 20 114/50 93 Nasal Cannula 4.0 100.0 02/27/18 20:00 100.0 93 24 111/50 Nasal Cannula 4.0 100.0 02/27/18 20:00 Nasal Cannula 4.0 02/27/18 19:40 94 Nasal Cannula 3.0 32 02/27/18 19:40 Nasal Cannula 3.0 32 02/27/18 19:16 90 02/27/18 16:00 81 02/27/18 16:00 98.9 85 20 114/52 93 Nasal Cannula 4.0 98.9 02/27/18 12:00 81 02/27/18 12:00 98.5 80 19 93/49 94 Nasal Cannula 4.0 98.5 Intake and Output 02/27/18 02/28/18 19:00 07:00 Intake Total 310 ml 420 ml Output Total 717 ml Balance 310 ml -297 ml Free Water 100 ml 60 ml Tube Feeding 210 ml 360 ml Hemodialysis UF 717 ml # Bowel Movements 1 Laboratory Tests 02/27/18 09:25: Ammonia 19 02/28/18 04:00: White Blood Count 11.0#H, Red Blood Count 2.18L, Hemoglobin 6.7*L, Hematocrit 20.1L, Mean Corpuscular Volume 92, Mean Corpuscular Hemoglobin 30.9, Mean Corpuscular Hemoglobin Concent 33.4, Red Cell Distribution Width 16.3H, Platelet Count 68L, Mean Platelet Volume 10.1, Neutrophils (%) (Auto) , Lymphocytes (%) (Auto) , Monocytes (%) (Auto) , Eosinophils (%) (Auto) , Basophils (%) (Auto) , Neutrophils % (Manual) [Pending], Lymphocytes % (Manual) [Pending], Platelet Estimate [Pending], Platelet Morphology [Pending], Sodium Level 138, Potassium Level 3.4L, Chloride Level 97L, Carbon Dioxide Level 34H, Anion Gap 7, Blood Urea Nitrogen 58H, Creatinine 6.3H, Estimat Glomerular Filtration Rate 9.0, Glucose Level 106, Calcium Level 8.0L, Random Vancomycin Level 11.1 Height (Feet): 5 Height (Inches): 7.00 Weight (Pounds): 137 Objective Neck: non-tender, normal alignment, supple, normal inspection Respiratory/Chest: decreased breath sounds Cardiovascular/Chest: normal rate, regular rhythm Abdomen: non tender, soft, no organomegaly Extremities: inflammation - right hip tenderness to palpation Skin Exam: normal pigmentation, warm/dry KANWAL CURRAN. P.Raj February 28, 2018 08:48
[2018-02-28] MEDS: Docusate 100mg/10ml Liq NG SCH ×3 (09:31→18:10)
--- NOTE | 2018-02-28 09:35 | General Progress Note ---
Assessment/Plan Assessment/Plan IMPRESSION/RECS: #. Acute deep venous thrombosis of left lower extremity. --> Status post inferior vena cava filter placement. --> given persistent low h/h and fact that has ivc filter, coumadin discontinued --> based on clinical exam, clot is not worse #. Anemia of gastrointestinal bleed. --> transfuse if hgb <7, workup has been reviewed --> Appreciate gi recs, has been seen by them --> had endoscopy but location unknown where he had it #. Thrombocytopenia baseline likely plt count of >50-100k --> likely related to splenomegaly and hepatitis C --> monitor closely for bleed if downtrends though this is less likely --> transfuse to keep plt >20k #. Anemia of kidney disease. --> On Hemodialysis by [address], on epo as well #. Anemia of chronic disease is s/p blood transfusion. #. End-stage renal disease, hemodialysis dependent. --> epo to continue 3x a week #. History of femoral neck fracture. On pain control. #. Acute respiratory failure. #. Hep C ++ Subjective Constitutional: Denies: no symptoms, chills, diaphoresis, fever, malaise, weakness, other HEENT: Denies: no symptoms, eye pain, blurred vision, tearing, double vision, ear pain, ear discharge, nose pain, nose congestion, throat pain, throat swelling, mouth pain, mouth swelling, other Cardiovascular: Denies: no symptoms, chest pain, edema, irregular heart rate, lightheadedness, palpitations, syncope, other Respiratory: Denies: no symptoms, cough, orthopnea, shortness of breath, SOB with excertion, SOB at rest, sputum, stridor, wheezing, other Gastrointestinal/Abdominal: Denies: no symptoms, abdomen distended, abdominal pain, black stools, tarry stools, blood in stool, constipated, diarrhea, difficulty swallowing, nausea, poor appetite, poor fluid intake, rectal bleeding , vomiting, other Genitourinary: Denies: no symptoms, burning, discharge, frequency, flank pain, hematuria, incontinence, pain, urgency, other Neurologic/Psychiatric: Denies: no symptoms, anxiety, depressed, emotional problems, headache, numbness, paresthesia, pre-existing deficit, seizure, tingling, tremors, weakness, other Endocrine: Denies: no symptoms, excessive sweating, flushing, intolerance to cold, intolerance to heat, increased hunger, increased thirst, increased urine, unexplained weight gain, unexplained weight loss, other Hematologic/Lymphatic: Denies: no symptoms, anemia, easy bleeding, easy bruising, other Allergies: Coded Allergies: No Known Allergies (Unverified , 02/02/18) Subjective no events, hd as per renal, give blood on prn basis Objective Last 24 Hour Vital Signs Date Time Temp Pulse Resp B/P (MAP) Pulse Ox O2 Delivery O2 Flow Rate FiO2 02/28/18 08:26 82 02/28/18 08:00 97.7 82 25 113/47 92 Venturi Mask 35 97.7 02/28/18 04:42 99.9 02/28/18 04:12 102.2 02/28/18 04:00 102.2 92 26 118/43 93 Venturi Mask 35 102.2 02/28/18 03:46 97 02/28/18 00:47 99.7 80 20 99/44 93 Nasal Cannula 4.0 99.7 02/27/18 23:34 Nasal Cannula 4.0 02/27/18 23:33 99.7 80 24 118/56 Nasal Cannula 4.0 99.7 02/27/18 23:28 84 02/27/18 21:35 Nasal Cannula 4.0 28 02/27/18 20:00 100.0 93 20 114/50 93 Nasal Cannula 4.0 100.0 02/27/18 20:00 100.0 93 24 111/50 Nasal Cannula 4.0 100.0 02/27/18 20:00 Nasal Cannula 4.0 02/27/18 19:40 94 Nasal Cannula 3.0 32 02/27/18 19:40 Nasal Cannula 3.0 32 02/27/18 19:16 90 02/27/18 16:00 81 02/27/18 16:00 98.9 85 20 114/52 93 Nasal Cannula 4.0 98.9 02/27/18 12:00 81 02/27/18 12:00 98.5 80 19 93/49 94 Nasal Cannula 4.0 98.5 Intake and Output 02/27/18 02/28/18 19:00 07:00 Intake Total 310 ml 420 ml Output Total 717 ml Balance 310 ml -297 ml Free Water 100 ml 60 ml Tube Feeding 210 ml 360 ml Hemodialysis UF 717 ml # Bowel Movements 1 Laboratory Tests 02/28/18 04:00: White Blood Count 11.0#H, Red Blood Count 2.18L, Hemoglobin 6.7*L, Hematocrit 20.1L, Mean Corpuscular Volume 92, Mean Corpuscular Hemoglobin 30.9, Mean Corpuscular Hemoglobin Concent 33.4, Red Cell Distribution Width 16.3H, Platelet Count 68L, Mean Platelet Volume 10.1, Neutrophils (%) (Auto) , Lymphocytes (%) (Auto) , Monocytes (%) (Auto) , Eosinophils (%) (Auto) , Basophils (%) (Auto) , Neutrophils % (Manual) [Pending], Lymphocytes % (Manual) [Pending], Platelet Estimate [Pending], Platelet Morphology [Pending], Sodium Level 138, Potassium Level 3.4L, Chloride Level 97L, Carbon Dioxide Level 34H, Anion Gap 7, Blood Urea Nitrogen 58H, Creatinine 6.3H, Estimat Glomerular Filtration Rate 9.0, Glucose Level 106, Calcium Level 8.0L, Random Vancomycin Level 11.1 Height (Feet): 5 Height (Inches): 7.00 Weight (Pounds): 137 General Appearance: alert EENT: TMs normal Neck: supple Cardiovascular: regular rhythm Respiratory/Chest: lungs clear Abdomen: no organomegaly Extremities: non-tender Edema: 1+ Leg (L), 1+ Leg (R) Edema: mild edema Neurologic: alert Tristen Lewis MD February 28, 2018 09:35
[2018-02-28] MEDS: oxyCODONE HCL/Acetaminophen 5/325mg ORAL PRN ×2 (10:15→19:47)
--- NOTE | 2018-02-28 10:51 | Pulmonology Progress Note ---
Assessment/Plan Problems: (1) Acute respiratory failure (2) ESRF (end stage renal failure) (3) Pulmonary edema (4) DVT (deep venous thrombosis) Assessment/Plan BC still positive on 02/24 still lethargic still has NG tube feeding on nasal cannula now HD by thermostat machine tender respiratory treatment titrate fio2 to sat of 92% check Hemoglobin, remains around 7 all meds reviewed med/surg if ok wiht cardio Subjective ROS Limited/Unobtainable: No Constitutional: Reports: no symptoms HEENT: Repors: no symptoms Allergies: Coded Allergies: No Known Allergies (Unverified , 02/02/18) Objective Last 24 Hour Vital Signs Date Time Temp Pulse Resp B/P (MAP) Pulse Ox O2 Delivery O2 Flow Rate FiO2 02/28/18 10:15 97.7 02/28/18 08:26 82 02/28/18 08:00 97.7 82 25 113/47 92 Venturi Mask 35 97.7 02/28/18 04:42 99.9 02/28/18 04:12 102.2 02/28/18 04:00 102.2 92 26 118/43 93 Venturi Mask 35 102.2 02/28/18 03:46 97 02/28/18 00:47 99.7 80 20 99/44 93 Nasal Cannula 4.0 99.7 02/27/18 23:34 Nasal Cannula 4.0 02/27/18 23:33 99.7 80 24 118/56 Nasal Cannula 4.0 99.7 02/27/18 23:28 84 02/27/18 21:35 Nasal Cannula 4.0 28 02/27/18 20:00 100.0 93 20 114/50 93 Nasal Cannula 4.0 100.0 02/27/18 20:00 100.0 93 24 111/50 Nasal Cannula 4.0 100.0 02/27/18 20:00 Nasal Cannula 4.0 02/27/18 19:40 94 Nasal Cannula 3.0 32 02/27/18 19:40 Nasal Cannula 3.0 32 02/27/18 19:16 90 02/27/18 16:00 81 02/27/18 16:00 98.9 85 20 114/52 93 Nasal Cannula 4.0 98.9 02/27/18 12:00 81 02/27/18 12:00 98.5 80 19 93/49 94 Nasal Cannula 4.0 98.5 Intake and Output 02/27/18 02/28/18 19:00 07:00 Intake Total 310 ml 420 ml Output Total 717 ml Balance 310 ml -297 ml Free Water 100 ml 60 ml Tube Feeding 210 ml 360 ml Hemodialysis UF 717 ml # Bowel Movements 1 Objective General Appearance: WD/WN HEENT: normocephalic, atraumatic Respiratory/Chest: chest wall non-tender, lungs clear Cardiovascular: normal peripheral pulses, normal rate, regular rhythm Abdomen: normal bowel sounds, soft, non tender, no organomegaly, non distended Extremities: no cyanosis, no clubbing, no edema Skin: no rash, no lesions Neurologic/Psychiatric: log feeder II-XII grossly normal Laboratory Tests 02/28/18 04:00: White Blood Count 11.0#H, Red Blood Count 2.18L, Hemoglobin 6.7*L, Hematocrit 20.1L, Mean Corpuscular Volume 92, Mean Corpuscular Hemoglobin 30.9, Mean Corpuscular Hemoglobin Concent 33.4, Red Cell Distribution Width 16.3H, Platelet Count 68L, Mean Platelet Volume 10.1, Neutrophils (%) (Auto) , Lymphocytes (%) (Auto) , Monocytes (%) (Auto) , Eosinophils (%) (Auto) , Basophils (%) (Auto) , Neutrophils % (Manual) [Pending], Lymphocytes % (Manual) [Pending], Platelet Estimate [Pending], Platelet Morphology [Pending], Sodium Level 138, Potassium Level 3.4L, Chloride Level 97L, Carbon Dioxide Level 34H, Anion Gap 7, Blood Urea Nitrogen 58H, Creatinine 6.3H, Estimat Glomerular Filtration Rate 9.0, Glucose Level 106, Calcium Level 8.0L, Random Vancomycin Level 11.1 Current Medications Medications (Trade) Dose Ordered Sig/Blessing Route PRN Reason Start Time Stop Time Status Last Admin Dose Admin Acetaminophen (Tylenol) 500 mg 3XW PRN ORAL WITH DIALYSIS 02/25/18 09:00 03/27/18 08:59 Acetaminophen (Tylenol) 650 mg Q4H PRN RECTAL Mild Pain/Temp > 100.5 02/24/18 17:15 03/26/18 17:14 02/28/18 04:12 Acetaminophen (Tylenol) 650 mg Q6H PRN ORAL Mild Pain/Temp > 100.5 02/23/18 11:00 03/25/18 10:59 02/26/18 06:24 Chlorhexidine Gluconate (Miriam-Hex 2%) 1 applic DAILY@2000 TOPIC 02/26/18 20:00 03/28/18 19:59 02/28/18 00:22 Clonidine HCl (Catapres Tab) 0.1 mg EVERY 4 HOURS PRN ORAL FOR BP > 160. 02/26/18 11:30 03/25/18 10:44 Diphenhydramine HCl (Benadryl) 50 mg Q6H PRN ORAL Itching 02/23/18 11:00 03/25/18 10:59 Docusate Sodium (Colace) 100 mg THREE TIMES A DAY NG 02/25/18 09:00 03/27/18 08:59 02/28/18 09:31 Epoetin Alfonzo (Procrit (for ESRD on dialysis)) 10,000 units SUN-SUN-SUN SUBQ 02/25/18 21:00 03/27/18 20:59 02/28/18 00:23 Haloperidol Lactate (Haldol) 5 mg Q4H PRN IM AGITATION 02/23/18 11:00 03/25/18 10:59 02/27/18 00:03 Lansoprazole (Prevacid) 30 mg DAILY ORAL 02/24/18 09:00 03/11/18 08:59 02/28/18 09:30 Nicotine (Nicoderm) 1 patch Q24H TDERMAL 02/24/18 09:00 03/26/18 08:59 02/28/18 09:31 Oxycodone/ Acetaminophen (Percocet 5-325) 1 tab Q4H PRN ORAL Severe Pain (Pain Scale 7-10) 02/28/18 09:30 03/07/18 09:29 02/28/18 10:15 Prochlorperazine (Compazine) 10 mg Q6H PRN IVP Nausea & Vomiting 02/23/18 11:00 03/25/18 10:59 Quetiapine Fumarate (SEROquel) 25 mg QHS ORAL 02/23/18 21:00 03/25/18 20:59 02/28/18 00:22 Sevelamer Carbonate (Renvela) 2,400 mg THREE TIMES A DAY ORAL 02/23/18 14:58 03/25/18 14:57 02/28/18 09:31 Vancomycin HCl (Vanco rx to dose) 1 ea DAILY PRN MISC Per rx protocol 02/26/18 16:30 03/28/18 16:29 Vancomycin HCl/ Dextrose 250 ml @ 166.667 mls/hr ONCE IVPB 02/28/18 12:00 02/28/18 13:00 Clement Mcleod MD February 28, 2018 10:51
--- NOTE | 2018-02-28 11:00 | Infectious Diseases Prog Note ---
Assessment/Plan Assessment/Plan ASSESSMENT: The patient is a 63-year-old male with, Fever, SP Bacteremia MRSA ( 02/22& ) ( m/l 2/2 HD ) repeat Bl Cx : P 02/26 2DEcho limited but no Veg Normal wbc 02/06/ CT of chest [id number] : no evidence of pulmonary emboli, diffuse septal thickening, and bilateral ground glass opacities, and small bilateral pleural effusion. Neg : HIV , Hep panel gastrointestinal bleed : had endoscopy but location unknown 02/25 SP Lt IJ Anemia. End-stage renal disease, on hemodialysis. Left leg DVT. Right hip fracture, status post ORIF. History of hepatitis C Splenomegaly. Status post IVC filter placement PLAN: Cont patient on IV vancomycin ( AB Rx d# 4 ) durtion depend on the clinical improvement SP 02/26 Zyvox d# 1 ( pt now has IV Access ) Monitor CBC. Monitor BMP. Monitor blood cultures ( repeat in AM ) Monitor chest x-ray. Monitor vital signs Subjective Constitutional: Denies: no symptoms, fever, chills, fatigue, anorexia, drenching sweats, other Allergies: Coded Allergies: No Known Allergies (Unverified , 02/02/18) Subjective afebrile Objective Vital Signs Last 24 Hour Vital Signs Date Time Temp Pulse Resp B/P (MAP) Pulse Ox O2 Delivery O2 Flow Rate FiO2 02/28/18 10:15 97.7 02/28/18 08:26 82 02/28/18 08:00 97.7 82 25 113/47 92 Venturi Mask 35 97.7 02/28/18 04:42 99.9 02/28/18 04:12 102.2 02/28/18 04:00 102.2 92 26 118/43 93 Venturi Mask 35 102.2 02/28/18 03:46 97 02/28/18 00:47 99.7 80 20 99/44 93 Nasal Cannula 4.0 99.7 02/27/18 23:34 Nasal Cannula 4.0 02/27/18 23:33 99.7 80 24 118/56 Nasal Cannula 4.0 99.7 02/27/18 23:28 84 02/27/18 21:35 Nasal Cannula 4.0 28 02/27/18 20:00 100.0 93 20 114/50 93 Nasal Cannula 4.0 100.0 02/27/18 20:00 100.0 93 24 111/50 Nasal Cannula 4.0 100.0 02/27/18 20:00 Nasal Cannula 4.0 02/27/18 19:40 94 Nasal Cannula 3.0 32 02/27/18 19:40 Nasal Cannula 3.0 32 02/27/18 19:16 90 02/27/18 16:00 81 02/27/18 16:00 98.9 85 20 114/52 93 Nasal Cannula 4.0 98.9 02/27/18 12:00 81 02/27/18 12:00 98.5 80 19 93/49 94 Nasal Cannula 4.0 98.5 Height (Feet): 5 Height (Inches): 7.00 Weight (Pounds): 137 HEENT: anicteric Respiratory/Chest: no respiratory distress Cardiovascular: regularly irregular Abdomen: no organomegaly Laboratory Tests Test 02/28/18 04:00 White Blood Count 11.0 K/UL (4.8-10.8) #H Red Blood Count 2.18 M/UL (4.70-6.10) L Hemoglobin 6.7 G/DL (14.2-18.0) *L Hematocrit 20.1 % (42.0-52.0) L Mean Corpuscular Volume 92 FL (80-99) Mean Corpuscular Hemoglobin 30.9 PG (27.0-31.0) Mean Corpuscular Hemoglobin Concent 33.4 G/DL (32.0-36.0) Red Cell Distribution Width 16.3 % (11.6-14.8) H Platelet Count 68 K/UL (150-450) L Mean Platelet Volume 10.1 FL (6.5-10.1) Neutrophils (%) (Auto) % (45.0-75.0) Lymphocytes (%) (Auto) % (20.0-45.0) Monocytes (%) (Auto) % (1.0-10.0) Eosinophils (%) (Auto) % (0.0-3.0) Basophils (%) (Auto) % (0.0-2.0) Neutrophils % (Manual) Pending Lymphocytes % (Manual) Pending Platelet Estimate Pending Platelet Morphology Pending Sodium Level 138 MMOL/L (136-145) Potassium Level 3.4 MMOL/L (3.5-5.1) L Chloride Level 97 MMOL/L (98-107) L Carbon Dioxide Level 34 MMOL/L (21-32) H Anion Gap 7 mmol/L (5-15) Blood Urea Nitrogen 58 mg/dL (7-18) H Creatinine 6.3 MG/DL (0.55-1.30) H Estimat Glomerular Filtration Rate 9.0 mL/min (>60) Glucose Level 106 MG/DL (74-106) Calcium Level 8.0 MG/DL (8.5-10.1) L Random Vancomycin Level 11.1 ug/mL Current Medications Medications (Trade) Dose Ordered Sig/Blessing Route PRN Reason Start Time Stop Time Status Last Admin Dose Admin Acetaminophen (Tylenol) 500 mg 3XW PRN ORAL WITH DIALYSIS 02/25/18 09:00 03/27/18 08:59 Acetaminophen (Tylenol) 650 mg Q4H PRN RECTAL Mild Pain/Temp > 100.5 02/24/18 17:15 03/26/18 17:14 02/28/18 04:12 Acetaminophen (Tylenol) 650 mg Q6H PRN ORAL Mild Pain/Temp > 100.5 02/23/18 11:00 03/25/18 10:59 02/26/18 06:24 Chlorhexidine Gluconate (Miriam-Hex 2%) 1 applic DAILY@2000 TOPIC 02/26/18 20:00 03/28/18 19:59 02/28/18 00:22 Clonidine HCl (Catapres Tab) 0.1 mg EVERY 4 HOURS PRN ORAL FOR BP > 160. 02/26/18 11:30 03/25/18 10:44 Diphenhydramine HCl (Benadryl) 50 mg Q6H PRN ORAL Itching 02/23/18 11:00 03/25/18 10:59 Docusate Sodium (Colace) 100 mg THREE TIMES A DAY NG 02/25/18 09:00 03/27/18 08:59 02/28/18 09:31 Epoetin Alfonzo (Procrit (for ESRD on dialysis)) 10,000 units MON-WED-SUN SUBQ 02/25/18 21:00 03/27/18 20:59 02/28/18 00:23 Haloperidol Lactate (Haldol) 5 mg Q4H PRN IM AGITATION 02/23/18 11:00 03/25/18 10:59 02/27/18 00:03 Lansoprazole (Prevacid) 30 mg DAILY ORAL 02/24/18 09:00 03/11/18 08:59 02/28/18 09:30 Nicotine (Nicoderm) 1 patch Q24H TDERMAL 02/24/18 09:00 03/26/18 08:59 02/28/18 09:31 Oxycodone/ Acetaminophen (Percocet 5-325) 1 tab Q4H PRN ORAL Severe Pain (Pain Scale 7-10) 02/28/18 09:30 03/07/18 09:29 02/28/18 10:15 Prochlorperazine (Compazine) 10 mg Q6H PRN IVP Nausea & Vomiting 02/23/18 11:00 03/25/18 10:59 Quetiapine Fumarate (SEROquel) 25 mg QHS ORAL 02/23/18 21:00 03/25/18 20:59 02/28/18 00:22 Sevelamer Carbonate (Renvela) 2,400 mg THREE TIMES A DAY ORAL 02/23/18 14:58 03/25/18 14:57 02/28/18 09:31 Vancomycin HCl (Vanco rx to dose) 1 ea DAILY PRN MISC Per rx protocol 02/26/18 16:30 03/28/18 16:29 Vancomycin HCl/ Dextrose 250 ml @ 166.667 mls/hr ONCE IVPB 02/28/18 12:00 02/28/18 13:00 Kevin Mendoza MD February 28, 2018 11:00
--- NOTE | 2018-02-28 11:28 | GI Progress Note ---
Assessment/Plan Problems: (1) Abnormal LFTs ICD Codes: R94.5 - Abnormal results of liver function studies SNOMED: 250506247 (2) Symptomatic anemia ICD Codes: D64.9 - Anemia, unspecified SNOMED: 366450807 (3) ESRD (end stage renal disease) on dialysis ICD Codes: N18.6 - End stage renal disease; Z99.2 - Dependence on renal dialysis SNOMED: 993536477 Status: stable Status Narrative Discussed with Dr. Matos. Assessment/Plan hx of EGD/colonoscopy 3 months ago per patient, cannot recall location. iron panel WNL OB stool negative >> send additional OB Hep C positive fu nephro recs monitor H&H, prn transfusions ppi thiamine fu labs outpatient GI procedures The patient was seen and examined at bedside and all new and available data was reviewed in the patients chart. I agree with the above findings, impression and plan. (Patient seen earlier today. Signature stamp does not reflect patient encounter time.). - Tushar Matos MD Subjective Subjective denies abdominal pain had EGD/colonoscopy x3 months Objective Last 24 Hour Vital Signs Date Time Temp Pulse Resp B/P (MAP) Pulse Ox O2 Delivery O2 Flow Rate FiO2 02/28/18 10:15 97.7 02/28/18 08:26 82 02/28/18 08:00 97.7 82 25 113/47 92 Venturi Mask 35 97.7 02/28/18 04:42 99.9 02/28/18 04:12 102.2 02/28/18 04:00 102.2 92 26 118/43 93 Venturi Mask 35 102.2 02/28/18 03:46 97 02/28/18 00:47 99.7 80 20 99/44 93 Nasal Cannula 4.0 99.7 02/27/18 23:34 Nasal Cannula 4.0 02/27/18 23:33 99.7 80 24 118/56 Nasal Cannula 4.0 99.7 02/27/18 23:28 84 02/27/18 21:35 Nasal Cannula 4.0 28 02/27/18 20:00 100.0 93 20 114/50 93 Nasal Cannula 4.0 100.0 02/27/18 20:00 100.0 93 24 111/50 Nasal Cannula 4.0 100.0 02/27/18 20:00 Nasal Cannula 4.0 02/27/18 19:40 94 Nasal Cannula 3.0 32 02/27/18 19:40 Nasal Cannula 3.0 32 02/27/18 19:16 90 02/27/18 16:00 81 02/27/18 16:00 98.9 85 20 114/52 93 Nasal Cannula 4.0 98.9 02/27/18 12:00 81 02/27/18 12:00 98.5 80 19 93/49 94 Nasal Cannula 4.0 98.5 Intake and Output 02/27/18 02/28/18 19:00 07:00 Intake Total 310 ml 420 ml Output Total 717 ml Balance 310 ml -297 ml Free Water 100 ml 60 ml Tube Feeding 210 ml 360 ml Hemodialysis UF 717 ml # Bowel Movements 1 Laboratory Tests Test 02/28/18 04:00 White Blood Count 11.0 K/UL (4.8-10.8) #H Red Blood Count 2.18 M/UL (4.70-6.10) L Hemoglobin 6.7 G/DL (14.2-18.0) *L Hematocrit 20.1 % (42.0-52.0) L Mean Corpuscular Volume 92 FL (80-99) Mean Corpuscular Hemoglobin 30.9 PG (27.0-31.0) Mean Corpuscular Hemoglobin Concent 33.4 G/DL (32.0-36.0) Red Cell Distribution Width 16.3 % (11.6-14.8) H Platelet Count 68 K/UL (150-450) L Mean Platelet Volume 10.1 FL (6.5-10.1) Neutrophils (%) (Auto) % (45.0-75.0) Lymphocytes (%) (Auto) % (20.0-45.0) Monocytes (%) (Auto) % (1.0-10.0) Eosinophils (%) (Auto) % (0.0-3.0) Basophils (%) (Auto) % (0.0-2.0) Neutrophils % (Manual) Pending Lymphocytes % (Manual) Pending Platelet Estimate Pending Platelet Morphology Pending Sodium Level 138 MMOL/L (136-145) Potassium Level 3.4 MMOL/L (3.5-5.1) L Chloride Level 97 MMOL/L (98-107) L Carbon Dioxide Level 34 MMOL/L (21-32) H Anion Gap 7 mmol/L (5-15) Blood Urea Nitrogen 58 mg/dL (7-18) H Creatinine 6.3 MG/DL (0.55-1.30) H Estimat Glomerular Filtration Rate 9.0 mL/min (>60) Glucose Level 106 MG/DL (74-106) Calcium Level 8.0 MG/DL (8.5-10.1) L Random Vancomycin Level 11.1 ug/mL Height (Feet): 5 Height (Inches): 7.00 Weight (Pounds): 137 General Appearance: WD/WN, no apparent distress, alert Cardiovascular: normal rate Respiratory/Chest: normal breath sounds, no respiratory distress Abdominal Exam: normal bowel sounds, non tender, soft Extremities: normal range of motion, non-tender Meliton Aldana NP February 28, 2018 11:28
[2018-02-28] MEDS ORDERED: Vancomycin 1250mg/D5W 250ml IVPB SCH (12:00)
--- NOTE | 2018-02-28 15:48 | General Progress Note ---
Assessment/Plan Problem List: (1) Abnormal laboratory test result ICD Codes: R89.9 - Unspecified abnormal finding in specimens from other organs , systems and tissues SNOMED: 523135059 (2) ESRD (end stage renal disease) on dialysis ICD Codes: N18.6 - End stage renal disease; Z99.2 - Dependence on renal dialysis SNOMED: 970246883 (3) Hypertension, uncontrolled ICD Codes: I10 - Essential (primary) hypertension SNOMED: 56825969, 28023086 (4) Symptomatic anemia ICD Codes: D64.9 - Anemia, unspecified SNOMED: 598710299 (5) Acute hyperkalemia ICD Codes: E87.5 - Hyperkalemia SNOMED: 1013458 (6) DVT (deep venous thrombosis) ICD Codes: I82.409 - Acute embolism and thrombosis of unspecified deep veins of unspecified lower extremity SNOMED: 949332982 (7) SOB (shortness of breath) ICD Codes: R06.02 - Shortness of breath SNOMED: 887431307 (8) Respiratory failure ICD Codes: J96.90 - Respiratory failure, unspecified, unspecified whether with hypoxia or hypercapnia SNOMED: 245791279 Status: unchanged Assessment/Plan ot pt diet o2 pulm tx gi/heme f/u anticoag pulm cbc bmp am Subjective Constitutional: Reports: weakness Allergies: Coded Allergies: No Known Allergies (Unverified , 02/02/18) All Systems: reviewed and negative except above Subjective o2 mask ng Objective Last 24 Hour Vital Signs Date Time Temp Pulse Resp B/P (MAP) Pulse Ox O2 Delivery O2 Flow Rate FiO2 02/28/18 12:05 97.2 79 19 109/50 95 Venturi Mask 35 97.2 02/28/18 11:46 75 02/28/18 11:14 97.7 02/28/18 10:15 97.7 02/28/18 08:26 82 02/28/18 08:00 97.7 82 25 113/47 92 Venturi Mask 35 97.7 02/28/18 04:42 99.9 02/28/18 04:12 102.2 02/28/18 04:00 102.2 92 26 118/43 93 Venturi Mask 35 102.2 02/28/18 03:46 97 02/28/18 00:47 99.7 80 20 99/44 93 Nasal Cannula 4.0 99.7 02/27/18 23:34 Nasal Cannula 4.0 02/27/18 23:33 99.7 80 24 118/56 Nasal Cannula 4.0 99.7 02/27/18 23:28 84 02/27/18 21:35 Nasal Cannula 4.0 28 02/27/18 20:00 100.0 93 20 114/50 93 Nasal Cannula 4.0 100.0 02/27/18 20:00 100.0 93 24 111/50 Nasal Cannula 4.0 100.0 02/27/18 20:00 Nasal Cannula 4.0 02/27/18 19:40 94 Nasal Cannula 3.0 32 02/27/18 19:40 Nasal Cannula 3.0 32 02/27/18 19:16 90 02/27/18 16:00 81 02/27/18 16:00 98.9 85 20 114/52 93 Nasal Cannula 4.0 98.9 Intake and Output 02/27/18 02/28/18 19:00 07:00 Intake Total 310 ml 420 ml Output Total 717 ml Balance 310 ml -297 ml Free Water 100 ml 60 ml Tube Feeding 210 ml 360 ml Hemodialysis UF 717 ml # Bowel Movements 1 Laboratory Tests 02/28/18 04:00: White Blood Count 11.0#H, Red Blood Count 2.18L, Hemoglobin 6.7*L, Hematocrit 20.1L, Mean Corpuscular Volume 92, Mean Corpuscular Hemoglobin 30.9, Mean Corpuscular Hemoglobin Concent 33.4, Red Cell Distribution Width 16.3H, Platelet Count 68L, Mean Platelet Volume 10.1, Neutrophils (%) (Auto) , Lymphocytes (%) (Auto) , Monocytes (%) (Auto) , Eosinophils (%) (Auto) , Basophils (%) (Auto) , Differential Total Cells Counted 100, Neutrophils % ( Manual) 80H, Lymphocytes % (Manual) 10L, Monocytes % (Manual) 8, Eosinophils % ( Manual) 0, Basophils % (Manual) 0, Band Neutrophils 2, Platelet Estimate DecreasedL, Platelet Morphology Normal, Hypochromasia 4+, Anisocytosis 1+, Sodium Level 138, Potassium Level 3.4L, Chloride Level 97L, Carbon Dioxide Level 34H, Anion Gap 7, Blood Urea Nitrogen 58H, Creatinine 6.3H, Estimat Glomerular Filtration Rate 9.0, Glucose Level 106, Calcium Level 8.0L, Random Vancomycin Level 11.1 Height (Feet): 5 Height (Inches): 7.00 Weight (Pounds): 137 General Appearance: lethargic EENT: normal ENT inspection Neck: normal alignment Cardiovascular: normal peripheral pulses, normal rate, regular rhythm Respiratory/Chest: chest wall non-tender, decreased breath sounds Abdomen: normal bowel sounds, non tender, soft Extremities: normal inspection Edema: no edema noted Arm (L), no edema noted Arm (R), no edema noted Leg (L), no edema noted Leg (R), no edema noted Pedal (L), no edema noted Pedal (R), no edema noted Generalized Neurologic: motor weakness Skin: normal pigmentation, warm/dry Lebron Swift DO February 28, 2018 15:48
--- NOTE | 2018-02-28 16:14 | Nephrology Progress Note ---
Assessment/Plan Problem List: (1) ESRD (end stage renal disease) on dialysis (2) Acute hyperkalemia (3) Hypertension, uncontrolled (4) Left leg DVT (5) Anemia in chronic kidney disease (CKD) Assessment in [facility] BP low stop mind altering meds ESRD, on admission missed dialysis . has high K on admission has fistula right arm Sever Anemia h/o Amyloidosis COPD Plan HD next 03/02 stop BP meds- on PRN clonidine only Transfusion as needed Kayexelate as needed BP control, meds adjusted has IVC filter add phos binders Subjective ROS Limited/Unobtainable: No Objective Objective Last 24 Hour Vital Signs Date Time Temp Pulse Resp B/P (MAP) Pulse Ox O2 Delivery O2 Flow Rate FiO2 02/28/18 15:55 97.2 94 19 113/50 95 Venturi Mask 35 97.2 02/28/18 12:05 97.2 79 19 109/50 95 Venturi Mask 35 97.2 02/28/18 11:46 75 02/28/18 11:14 97.7 02/28/18 10:15 97.7 02/28/18 08:26 82 02/28/18 08:00 97.7 82 25 113/47 92 Venturi Mask 35 97.7 02/28/18 04:42 99.9 02/28/18 04:12 102.2 02/28/18 04:00 102.2 92 26 118/43 93 Venturi Mask 35 102.2 02/28/18 03:46 97 02/28/18 00:47 99.7 80 20 99/44 93 Nasal Cannula 4.0 99.7 02/27/18 23:34 Nasal Cannula 4.0 02/27/18 23:33 99.7 80 24 118/56 Nasal Cannula 4.0 99.7 02/27/18 23:28 84 02/27/18 21:35 Nasal Cannula 4.0 28 02/27/18 20:00 100.0 93 20 114/50 93 Nasal Cannula 4.0 100.0 02/27/18 20:00 100.0 93 24 111/50 Nasal Cannula 4.0 100.0 02/27/18 20:00 Nasal Cannula 4.0 02/27/18 19:40 94 Nasal Cannula 3.0 32 02/27/18 19:40 Nasal Cannula 3.0 32 02/27/18 19:16 90 Intake and Output 02/27/18 02/28/18 19:00 07:00 Intake Total 310 ml 420 ml Output Total 717 ml Balance 310 ml -297 ml Free Water 100 ml 60 ml Tube Feeding 210 ml 360 ml Hemodialysis UF 717 ml # Bowel Movements 1 Laboratory Tests 02/28/18 04:00: White Blood Count 11.0#H, Red Blood Count 2.18L, Hemoglobin 6.7*L, Hematocrit 20.1L, Mean Corpuscular Volume 92, Mean Corpuscular Hemoglobin 30.9, Mean Corpuscular Hemoglobin Concent 33.4, Red Cell Distribution Width 16.3H, Platelet Count 68L, Mean Platelet Volume 10.1, Neutrophils (%) (Auto) , Lymphocytes (%) (Auto) , Monocytes (%) (Auto) , Eosinophils (%) (Auto) , Basophils (%) (Auto) , Differential Total Cells Counted 100, Neutrophils % ( Manual) 80H, Lymphocytes % (Manual) 10L, Monocytes % (Manual) 8, Eosinophils % ( Manual) 0, Basophils % (Manual) 0, Band Neutrophils 2, Platelet Estimate DecreasedL, Platelet Morphology Normal, Hypochromasia 4+, Anisocytosis 1+, Sodium Level 138, Potassium Level 3.4L, Chloride Level 97L, Carbon Dioxide Level 34H, Anion Gap 7, Blood Urea Nitrogen 58H, Creatinine 6.3H, Estimat Glomerular Filtration Rate 9.0, Glucose Level 106, Calcium Level 8.0L, Random Vancomycin Level 11.1 Height (Feet): 5 Height (Inches): 7.00 Weight (Pounds): 137 General Appearance: no apparent distress, lethargic Cardiovascular: tachycardia Respiratory/Chest: decreased breath sounds Abdomen: distended Objective no change DALTON ROSENTHAL February 28, 2018 16:14
--- NOTE | 2018-02-28 21:06 | Cardiology Progress Note ---
Assessment/Plan Assessment/Plan 1. Hypertension. 2. End-stage renal disease, on hemodialysis. 3. Anemia. 4. History of GI bleed secondary to AVMs. 5. Acute deep venous thrombosis, left leg. 6. History of femoral neck fracture 7. acute diastolic heart failure 8. persistent bacteremai 9. thrombocytopenia ctpa neg for pe has ivc filter inplace already dilaysis / uf tele noted sinus had recurrent anemia now s/p prbc tx av and mv thickening noted on repat echo persistent bacteremia is of concern pt very altered and lethorgic consider neuro imaging adn neuro eval message left for dr enciso id input regarding persitent bacteremia Subjective ROS Limited/Unobtainable: Yes Subjective confused now on dialysis Objective Last 24 Hour Vital Signs Date Time Temp Pulse Resp B/P (MAP) Pulse Ox O2 Delivery O2 Flow Rate FiO2 02/28/18 20:51 Venturi Mask 8.0 35 02/28/18 20:51 95 Venturi Mask 8.0 35 02/28/18 20:00 98.1 78 19 125/60 94 Venturi Mask 35 98.1 02/28/18 20:00 98.1 78 20 125/54 95 Venturi Mask 35 98.1 02/28/18 18:10 97.5 75 19 135/74 95 Venturi Mask 35 97.5 02/28/18 16:10 98.0 94 19 122/50 95 Venturi Mask 35 98.0 02/28/18 15:55 97.2 94 19 113/50 95 Venturi Mask 35 97.2 02/28/18 12:05 97.2 79 19 109/50 95 Venturi Mask 35 97.2 02/28/18 11:46 75 02/28/18 11:14 97.7 02/28/18 10:15 97.7 02/28/18 08:26 82 02/28/18 08:00 97.7 82 25 113/47 92 Venturi Mask 35 97.7 02/28/18 04:42 99.9 02/28/18 04:12 102.2 02/28/18 04:00 102.2 92 26 118/43 93 Venturi Mask 35 102.2 02/28/18 03:46 97 02/28/18 00:47 99.7 80 20 99/44 93 Nasal Cannula 4.0 99.7 02/27/18 23:34 Nasal Cannula 4.0 02/27/18 23:33 99.7 80 24 118/56 Nasal Cannula 4.0 99.7 02/27/18 23:28 84 02/27/18 21:35 Nasal Cannula 4.0 28 General Appearance: no apparent distress, lethargic Neck: supple Cardiovascular: normal rate Respiratory/Chest: lungs clear Abdomen: normal bowel sounds, non tender, soft Extremities: no swelling Intake and Output 02/27/18 02/28/18 19:00 07:00 Intake Total 310 ml 420 ml Output Total 717 ml Balance 310 ml -297 ml Free Water 100 ml 60 ml Tube Feeding 210 ml 360 ml Hemodialysis UF 717 ml # Bowel Movements 1 Laboratory Tests Test 02/28/18 04:00 White Blood Count 11.0 K/UL (4.8-10.8) #H Red Blood Count 2.18 M/UL (4.70-6.10) L Hemoglobin 6.7 G/DL (14.2-18.0) *L Hematocrit 20.1 % (42.0-52.0) L Mean Corpuscular Volume 92 FL (80-99) Mean Corpuscular Hemoglobin 30.9 PG (27.0-31.0) Mean Corpuscular Hemoglobin Concent 33.4 G/DL (32.0-36.0) Red Cell Distribution Width 16.3 % (11.6-14.8) H Platelet Count 68 K/UL (150-450) L Mean Platelet Volume 10.1 FL (6.5-10.1) Neutrophils (%) (Auto) % (45.0-75.0) Lymphocytes (%) (Auto) % (20.0-45.0) Monocytes (%) (Auto) % (1.0-10.0) Eosinophils (%) (Auto) % (0.0-3.0) Basophils (%) (Auto) % (0.0-2.0) Differential Total Cells Counted 100 Neutrophils % (Manual) 80 % (45-75) H Lymphocytes % (Manual) 10 % (20-45) L Monocytes % (Manual) 8 % (1-10) Eosinophils % (Manual) 0 % (0-3) Basophils % (Manual) 0 % (0-2) Band Neutrophils 2 % (0-8) Platelet Estimate Decreased L Platelet Morphology Normal Hypochromasia 4+ Anisocytosis 1+ Sodium Level 138 MMOL/L (136-145) Potassium Level 3.4 MMOL/L (3.5-5.1) L Chloride Level 97 MMOL/L (98-107) L Carbon Dioxide Level 34 MMOL/L (21-32) H Anion Gap 7 mmol/L (5-15) Blood Urea Nitrogen 58 mg/dL (7-18) H Creatinine 6.3 MG/DL (0.55-1.30) H Estimat Glomerular Filtration Rate 9.0 mL/min (>60) Glucose Level 106 MG/DL (74-106) Calcium Level 8.0 MG/DL (8.5-10.1) L C-Reactive Protein, Quantitative > 70.0 mg/dL (0.00-0.90) H Random Vancomycin Level 11.1 ug/mL Jony Becker MD February 28, 2018 21:05
[2018-03-01] VITALS: BP 117/56
[2018-03-01] MEDS ORDERED: Acetaminophen 650 MG SUPP RECTAL PRN (01:15)
[2018-03-01 04:00] VITALS: BP 135/59
[2018-03-01 08:00] VITALS: BP 126/60
[2018-03-01 08:19] LABS: HEMOGLOBIN 7.5 G/DL (14.2-18.0); MEAN CORPUSCULAR VOLUME 92 FL (80-99); PLATELET COUNT 60 K/UL (150-450); RED CELL DISTRIBUTION WIDTH 15.8 % (11.6-14.8); WHITE BLOOD COUNT 13.7 K/UL (4.8-10.8)
[2018-03-01 08:38] LABS: PHOSPHORUS 2.7 MG/DL (2.5-4.9)
[2018-03-01 08:49] LABS: ALANINE AMINOTRANSFERASE 31 U/L (12-78); ALBUMIN 2.5 G/DL (3.4-5.0); ALBUMIN/GLOBULIN RATIO 0.5 (1.0-2.7); ALKALINE PHOSPHATASE 234 U/L (46-116); ANION GAP 10 mmol/L (5-15); ASPARTATE AMINO TRANSFERASE 39 U/L (15-37); BILIRUBIN,TOTAL 1.4 MG/DL (0.2-1.0); BLOOD UREA NITROGEN 77 mg/dL (7-18); CALCIUM 8.5 MG/DL (8.5-10.1); CARBON DIOXIDE 31 MMOL/L (21-32); CHLORIDE 97 MMOL/L (98-107); CREATININE 8.2 MG/DL (0.55-1.30); POTASSIUM 3.4 MMOL/L (3.5-5.1); SODIUM 138 MMOL/L (136-145)
[2018-03-01 08:50] LABS: BILIRUBIN,DIRECT 0.7 MG/DL (0.0-0.3)
[2018-03-01] MEDS: oxyCODONE HCL/Acetaminophen 5/325mg ORAL PRN (08:58)
[2018-03-01] MEDS ORDERED: Acetaminophen 500mg (ES) tab ORAL PRN (09:00)
[2018-03-01] MEDS: Docusate 100mg/10ml Liq NG SCH ×2 (09:07→14:26)
--- NOTE | 2018-03-01 09:15 | General Progress Note ---
Assessment/Plan Assessment/Plan (1) Right hip pain (2) Right hip Fracture (3) S/p ORIF of right hip Pt will be continued on Percocet HOLD OPIOIDS FOR OVERSEDATION OR SBP<90 OR DBP<60 OR O2SAT<92% OR RR<12 D/w Dr. Childers he concurred. Subjective Date patient seen: March 01, 2018 Time patient seen: 08:15 - am Constitutional: Reports: weakness HEENT: Reports: no symptoms Cardiovascular: Reports: no symptoms Respiratory: Reports: shortness of breath Gastrointestinal/Abdominal: Reports: difficulty swallowing Genitourinary: Reports: no symptoms Neurologic/Psychiatric: Reports: weakness Endocrine: Reports: no symptoms Hematologic/Lymphatic: Reports: no symptoms Allergies: Coded Allergies: No Known Allergies (Unverified , 02/02/18) Subjective Patient has been transferred to [facility] floor and has been c/o pain and has received 3 doses of Percocet in the last 24hrs. It has reduced his pain to a mild level. Objective Last 24 Hour Vital Signs Date Time Temp Pulse Resp B/P (MAP) Pulse Ox O2 Delivery O2 Flow Rate FiO2 03/01/18 08:58 97.8 03/01/18 08:00 97.8 79 19 126/60 92 97.8 03/01/18 04:46 100.0 03/01/18 04:00 101.8 100 20 135/59 94 101.8 03/01/18 03:47 101.0 03/01/18 00:00 98.8 86 18 117/56 95 98.8 02/28/18 20:51 Venturi Mask 8.0 35 02/28/18 20:51 95 Venturi Mask 8.0 35 02/28/18 20:00 98.1 78 19 125/60 94 Venturi Mask 35 98.1 02/28/18 20:00 98.1 78 20 125/54 95 Venturi Mask 35 98.1 02/28/18 18:10 97.5 75 19 135/74 95 Venturi Mask 35 97.5 02/28/18 16:10 98.0 94 19 122/50 95 Venturi Mask 35 98.0 02/28/18 15:55 97.2 94 19 113/50 95 Venturi Mask 35 97.2 02/28/18 12:05 97.2 79 19 109/50 95 Venturi Mask 35 97.2 02/28/18 11:46 75 02/28/18 11:14 97.7 02/28/18 10:15 97.7 Intake and Output 02/28/18 03/01/18 19:00 07:00 Intake Total 1013.334 ml 30 ml Balance 1013.334 ml 30 ml Free Water 100 ml IV Total 333.334 ml Tube Feeding 330 ml 30 ml Blood Product 250 ml # Voids 2 Laboratory Tests 03/01/18 07:30: White Blood Count 13.7H, Red Blood Count 2.50L, Hemoglobin 7.5L, Hematocrit 23.0L, Mean Corpuscular Volume 92, Mean Corpuscular Hemoglobin 30.2, Mean Corpuscular Hemoglobin Concent 32.9, Red Cell Distribution Width 15.8H, Platelet Count 60L, Mean Platelet Volume 8.3, Neutrophils (%) (Auto) , Lymphocytes (%) (Auto) , Monocytes (%) (Auto) , Eosinophils (%) (Auto) , Basophils (%) (Auto) , Neutrophils % (Manual) [Pending], Lymphocytes % (Manual) [Pending], Platelet Estimate [Pending], Platelet Morphology [Pending], Sodium Level 138, Potassium Level 3.4L, Chloride Level 97L, Carbon Dioxide Level 31, Anion Gap 10, Blood Urea Nitrogen 77H, Creatinine 8.2H, Estimat Glomerular Filtration Rate 6.6, Glucose Level 125H, Lactic Acid Level 0.80, Calcium Level 8.5, Phosphorus Level 2.7, Magnesium Level 2.5H, Total Bilirubin 1.4H, Direct Bilirubin 0.7H, Aspartate Amino Transf (AST/SGOT) 39H, Alanine Aminotransferase (ALT/SGPT) 31, Alkaline Phosphatase 234H, Pro-B-Type Natriuretic Peptide > 74956W, Total Protein 7.3, Albumin 2.5L, Globulin 4.8, Albumin/Globulin Ratio 0.5L Height (Feet): 5 Height (Inches): 7.00 Weight (Pounds): 134 Objective Neck: non-tender, normal alignment, supple, normal inspection Respiratory/Chest: decreased breath sounds Cardiovascular/Chest: normal rate, regular rhythm Abdomen: non tender, soft, no organomegaly Extremities: inflammation - right hip tenderness to palpation Skin Exam: normal pigmentation, warm/dry ZEDNER,KANWAL Gallegos March 01, 2018 09:15
--- NOTE | 2018-03-01 10:22 | Infectious Diseases Prog Note ---
Assessment/Plan Assessment/Plan ASSESSMENT: The patient is a 63-year-old male with, Fever, SP Bacteremia MRSA ( 02/22& ) ( m/l 2/2 HD ) ( 03/01 )repeat Bl Cx : P 02/26 2DEcho limited but no Veg Leukocytosis 02/06/ CT of chest [id number] : no evidence of pulmonary emboli, diffuse septal thickening, and bilateral ground glass opacities, and small bilateral pleural effusion. Neg : HIV , Hep panel gastrointestinal bleed : had endoscopy but location unknown 02/25 SP Lt IJ Anemia. End-stage renal disease, on hemodialysis. Left leg DVT. Right hip fracture, status post ORIF. History of hepatitis C Splenomegaly. Status post IVC filter placement PLAN: Cont patient on IV vancomycin ( AB Rx d# 5 ) durtion depend on the clinical improvement SP 02/26 Zyvox d# 1 ( pt now has IV Access ) Monitor CBC. Monitor BMP. Monitor blood cultures Monitor chest x-ray. Monitor vital signs if no indication of improvement , will order CT C/A/P ro abscess Subjective Allergies: Coded Allergies: No Known Allergies (Unverified , 02/02/18) Subjective febrile again Objective Vital Signs Last 24 Hour Vital Signs Date Time Temp Pulse Resp B/P (MAP) Pulse Ox O2 Delivery O2 Flow Rate FiO2 03/01/18 09:57 97.8 03/01/18 08:58 97.8 03/01/18 08:00 97.8 79 19 126/60 92 97.8 03/01/18 04:46 100.0 03/01/18 04:00 101.8 100 20 135/59 94 101.8 03/01/18 03:47 101.0 03/01/18 00:00 98.8 86 18 117/56 95 98.8 02/28/18 20:51 Venturi Mask 8.0 35 02/28/18 20:51 95 Venturi Mask 8.0 35 02/28/18 20:00 98.1 78 19 125/60 94 Venturi Mask 35 98.1 02/28/18 20:00 98.1 78 20 125/54 95 Venturi Mask 35 98.1 02/28/18 18:10 97.5 75 19 135/74 95 Venturi Mask 35 97.5 02/28/18 16:10 98.0 94 19 122/50 95 Venturi Mask 35 98.0 02/28/18 15:55 97.2 94 19 113/50 95 Venturi Mask 35 97.2 02/28/18 12:05 97.2 79 19 109/50 95 Venturi Mask 35 97.2 02/28/18 11:46 75 02/28/18 11:14 97.7 Height (Feet): 5 Height (Inches): 7.00 Weight (Pounds): 134 HEENT: anicteric Respiratory/Chest: no accessory muscle use Cardiovascular: regularly irregular Abdomen: no organomegaly Laboratory Tests Test 03/01/18 07:30 White Blood Count 13.7 K/UL (4.8-10.8) H Red Blood Count 2.50 M/UL (4.70-6.10) L Hemoglobin 7.5 G/DL (14.2-18.0) L Hematocrit 23.0 % (42.0-52.0) L Mean Corpuscular Volume 92 FL (80-99) Mean Corpuscular Hemoglobin 30.2 PG (27.0-31.0) Mean Corpuscular Hemoglobin Concent 32.9 G/DL (32.0-36.0) Red Cell Distribution Width 15.8 % (11.6-14.8) H Platelet Count 60 K/UL (150-450) L Mean Platelet Volume 8.3 FL (6.5-10.1) Neutrophils (%) (Auto) % (45.0-75.0) Lymphocytes (%) (Auto) % (20.0-45.0) Monocytes (%) (Auto) % (1.0-10.0) Eosinophils (%) (Auto) % (0.0-3.0) Basophils (%) (Auto) % (0.0-2.0) Neutrophils % (Manual) Pending Lymphocytes % (Manual) Pending Platelet Estimate Pending Platelet Morphology Pending Sodium Level 138 MMOL/L (136-145) Potassium Level 3.4 MMOL/L (3.5-5.1) L Chloride Level 97 MMOL/L (98-107) L Carbon Dioxide Level 31 MMOL/L (21-32) Anion Gap 10 mmol/L (5-15) Blood Urea Nitrogen 77 mg/dL (7-18) H Creatinine 8.2 MG/DL (0.55-1.30) H Estimat Glomerular Filtration Rate 6.6 mL/min (>60) Glucose Level 125 MG/DL (74-106) H Lactic Acid Level 0.80 mmol/L (0.66-2.22) Calcium Level 8.5 MG/DL (8.5-10.1) Phosphorus Level 2.7 MG/DL (2.5-4.9) Magnesium Level 2.5 MG/DL (1.8-2.4) H Total Bilirubin 1.4 MG/DL (0.2-1.0) H Direct Bilirubin 0.7 MG/DL (0.0-0.3) H Aspartate Amino Transf (AST/SGOT) 39 U/L (15-37) H Alanine Aminotransferase (ALT/SGPT) 31 U/L (12-78) Alkaline Phosphatase 234 U/L (46-116) H Pro-B-Type Natriuretic Peptide > 32655 pg/mL (0-125) H Total Protein 7.3 G/DL (6.4-8.2) Albumin 2.5 G/DL (3.4-5.0) L Globulin 4.8 g/dL Albumin/Globulin Ratio 0.5 (1.0-2.7) L Current Medications Medications (Trade) Dose Ordered Sig/Blessing Route PRN Reason Start Time Stop Time Status Last Admin Dose Admin Acetaminophen (Tylenol) 500 mg 3XW PRN ORAL WITH DIALYSIS 03/01/18 09:00 03/27/18 08:59 Acetaminophen (Tylenol) 650 mg Q4H PRN RECTAL Mild Pain/Temp > 100.5 03/01/18 01:15 03/26/18 17:14 Acetaminophen (Tylenol) 650 mg Q6H PRN ORAL Mild Pain/Temp > 100.5 02/28/18 23:00 03/25/18 10:59 03/01/18 03:47 Chlorhexidine Gluconate (Miriam-Hex 2%) 1 applic DAILY@2000 TOPIC 03/01/18 20:00 03/28/18 19:59 Clonidine HCl (Catapres Tab) 0.1 mg EVERY 4 HOURS PRN ORAL FOR BP > 160. 03/01/18 01:00 03/25/18 10:44 Diphenhydramine HCl (Benadryl) 50 mg Q6H PRN ORAL Itching 02/28/18 23:00 03/25/18 10:59 03/01/18 08:57 Docusate Sodium (Colace) 100 mg THREE TIMES A DAY NG 03/01/18 09:00 03/27/18 08:59 03/01/18 09:07 Epoetin Alfonzo (Procrit (for ESRD on dialysis)) 10,000 units SUN-SUN-SUN SUBQ 03/01/18 21:00 03/27/18 20:59 Haloperidol Lactate (Haldol) 5 mg Q4H PRN IM AGITATION 02/28/18 23:00 03/25/18 10:59 Lansoprazole (Prevacid) 30 mg DAILY@0730 ORAL 03/01/18 07:30 03/31/18 07:29 03/01/18 09:07 Nicotine (Nicoderm) 1 patch Q24H TDERMAL 03/01/18 09:00 03/26/18 08:59 03/01/18 09:35 Oxycodone/ Acetaminophen (Percocet 5-325) 1 tab Q4H PRN ORAL Severe Pain (Pain Scale 7-10) 03/01/18 01:30 03/07/18 09:29 03/01/18 08:58 Prochlorperazine (Compazine) 10 mg Q6H PRN IVP Nausea & Vomiting 02/28/18 23:00 03/25/18 10:59 Quetiapine Fumarate (SEROquel) 25 mg QHS ORAL 03/01/18 21:00 03/25/18 20:59 Sevelamer Carbonate (Renvela) 2,400 mg THREE TIMES A DAY ORAL 03/01/18 09:00 03/25/18 14:57 03/01/18 08:56 Vancomycin HCl (Vanco rx to dose) 1 ea DAILY PRN MISC Per rx protocol 03/01/18 09:00 03/28/18 16:29 Kevin Mendoza MD March 01, 2018 10:22
--- NOTE | 2018-03-01 11:58 | GI Progress Note ---
Assessment/Plan Problems: (1) Abnormal LFTs ICD Codes: R94.5 - Abnormal results of liver function studies SNOMED: 009389724 (2) Symptomatic anemia ICD Codes: D64.9 - Anemia, unspecified SNOMED: 226387719 (3) ESRD (end stage renal disease) on dialysis ICD Codes: N18.6 - End stage renal disease; Z99.2 - Dependence on renal dialysis SNOMED: 282283921 Status: stable Status Narrative Discussed with Dr. Matos. Assessment/Plan hx of EGD/colonoscopy 3 months ago per patient, cannot recall location. iron panel WNL OB stool negative >> send additional OB Hep C positive fu nephro recs monitor H&H, prn transfusions ppi thiamine fu labs outpatient GI procedures The patient was seen and examined at bedside and all new and available data was reviewed in the patients chart. I agree with the above findings, impression and plan. (Patient seen earlier today. Signature stamp does not reflect patient encounter time.). - Tushar Matos MD Subjective Subjective denies abdominal pain had EGD/colonoscopy x3 months Objective Last 24 Hour Vital Signs Date Time Temp Pulse Resp B/P (MAP) Pulse Ox O2 Delivery O2 Flow Rate FiO2 03/01/18 09:57 97.8 03/01/18 08:58 97.8 03/01/18 08:00 97.8 79 19 126/60 92 97.8 03/01/18 04:46 100.0 03/01/18 04:00 101.8 100 20 135/59 94 101.8 03/01/18 03:47 101.0 03/01/18 00:00 98.8 86 18 117/56 95 98.8 02/28/18 20:51 Venturi Mask 8.0 35 02/28/18 20:51 95 Venturi Mask 8.0 35 02/28/18 20:00 98.1 78 19 125/60 94 Venturi Mask 35 98.1 02/28/18 20:00 98.1 78 20 125/54 95 Venturi Mask 35 98.1 02/28/18 18:10 97.5 75 19 135/74 95 Venturi Mask 35 97.5 02/28/18 16:10 98.0 94 19 122/50 95 Venturi Mask 35 98.0 5/17/18 15:55 97.2 94 19 113/50 95 Venturi Mask 35 97.2 02/28/18 12:05 97.2 79 19 109/50 95 Venturi Mask 35 97.2 Intake and Output 02/28/18 03/01/18 19:00 07:00 Intake Total 1013.334 ml 30 ml Balance 1013.334 ml 30 ml Free Water 100 ml IV Total 333.334 ml Tube Feeding 330 ml 30 ml Blood Product 250 ml # Voids 2 Laboratory Tests Test 03/01/18 07:30 White Blood Count 13.7 K/UL (4.8-10.8) H Red Blood Count 2.50 M/UL (4.70-6.10) L Hemoglobin 7.5 G/DL (14.2-18.0) L Hematocrit 23.0 % (42.0-52.0) L Mean Corpuscular Volume 92 FL (80-99) Mean Corpuscular Hemoglobin 30.2 PG (27.0-31.0) Mean Corpuscular Hemoglobin Concent 32.9 G/DL (32.0-36.0) Red Cell Distribution Width 15.8 % (11.6-14.8) H Platelet Count 60 K/UL (150-450) L Mean Platelet Volume 8.3 FL (6.5-10.1) Neutrophils (%) (Auto) % (45.0-75.0) Lymphocytes (%) (Auto) % (20.0-45.0) Monocytes (%) (Auto) % (1.0-10.0) Eosinophils (%) (Auto) % (0.0-3.0) Basophils (%) (Auto) % (0.0-2.0) Differential Total Cells Counted 100 Neutrophils % (Manual) 82 % (45-75) H Lymphocytes % (Manual) 9 % (20-45) L Monocytes % (Manual) 7 % (1-10) Eosinophils % (Manual) 0 % (0-3) Basophils % (Manual) 0 % (0-2) Band Neutrophils 2 % (0-8) Platelet Estimate Decreased L Platelet Morphology Normal Hypochromasia 2+ Anisocytosis 1+ Sodium Level 138 MMOL/L (136-145) Potassium Level 3.4 MMOL/L (3.5-5.1) L Chloride Level 97 MMOL/L (98-107) L Carbon Dioxide Level 31 MMOL/L (21-32) Anion Gap 10 mmol/L (5-15) Blood Urea Nitrogen 77 mg/dL (7-18) H Creatinine 8.2 MG/DL (0.55-1.30) H Estimat Glomerular Filtration Rate 6.6 mL/min (>60) Glucose Level 125 MG/DL (74-106) H Lactic Acid Level 0.80 mmol/L (0.66-2.22) Calcium Level 8.5 MG/DL (8.5-10.1) Phosphorus Level 2.7 MG/DL (2.5-4.9) Magnesium Level 2.5 MG/DL (1.8-2.4) H Total Bilirubin 1.4 MG/DL (0.2-1.0) H Direct Bilirubin 0.7 MG/DL (0.0-0.3) H Aspartate Amino Transf (AST/SGOT) 39 U/L (15-37) H Alanine Aminotransferase (ALT/SGPT) 31 U/L (12-78) Alkaline Phosphatase 234 U/L (46-116) H Pro-B-Type Natriuretic Peptide > 34345 pg/mL (0-125) H Total Protein 7.3 G/DL (6.4-8.2) Albumin 2.5 G/DL (3.4-5.0) L Globulin 4.8 g/dL Albumin/Globulin Ratio 0.5 (1.0-2.7) L Height (Feet): 5 Height (Inches): 7.00 Weight (Pounds): 134 General Appearance: WD/WN, no apparent distress, alert Cardiovascular: normal rate Respiratory/Chest: normal breath sounds, no respiratory distress Abdominal Exam: normal bowel sounds, non tender, soft Extremities: normal range of motion, non-tender Meliton Aldana NP March 01, 2018 11:58
[2018-03-01 12:00] VITALS: BP 125/70
[2018-03-01] MEDS ORDERED: Tubing Blood Filter IV ONE (15:11)
[2018-03-01] MEDS ORDERED: Tubing IV Secondary IV ONE (15:11)
[2018-03-01] MEDS ORDERED: NS 275ml ONE (15:11)
--- NOTE | 2018-03-01 15:32 | General Progress Note ---
Assessment/Plan Problem List: (1) Abnormal laboratory test result ICD Codes: R89.9 - Unspecified abnormal finding in specimens from other organs , systems and tissues SNOMED: 394517352 (2) ESRD (end stage renal disease) on dialysis ICD Codes: N18.6 - End stage renal disease; Z99.2 - Dependence on renal dialysis SNOMED: 261905622 (3) Hypertension, uncontrolled ICD Codes: I10 - Essential (primary) hypertension SNOMED: 90020257, 48096857 (4) Symptomatic anemia ICD Codes: D64.9 - Anemia, unspecified SNOMED: 109411301 (5) Acute hyperkalemia ICD Codes: E87.5 - Hyperkalemia SNOMED: 9020827 (6) DVT (deep venous thrombosis) ICD Codes: I82.409 - Acute embolism and thrombosis of unspecified deep veins of unspecified lower extremity SNOMED: 128470515 (7) SOB (shortness of breath) ICD Codes: R06.02 - Shortness of breath SNOMED: 377865850 (8) Respiratory failure ICD Codes: J96.90 - Respiratory failure, unspecified, unspecified whether with hypoxia or hypercapnia SNOMED: 314354633 Status: unchanged Assessment/Plan ot pt diet o2 pulm tx gi/heme f/u anticoag pulm cbc bmp am dc plan snf if clear Subjective Constitutional: Reports: weakness Allergies: Coded Allergies: No Known Allergies (Unverified , 02/02/18) All Systems: reviewed and negative except above Subjective calm in bed Objective Last 24 Hour Vital Signs Date Time Temp Pulse Resp B/P (MAP) Pulse Ox O2 Delivery O2 Flow Rate FiO2 03/01/18 12:00 98.0 76 20 125/70 98 98.0 03/01/18 09:57 97.8 03/01/18 08:58 97.8 03/01/18 08:00 97.8 79 19 126/60 92 97.8 03/01/18 04:46 100.0 03/01/18 04:00 101.8 100 20 135/59 94 101.8 03/01/18 03:47 101.0 03/01/18 00:00 98.8 86 18 117/56 95 98.8 02/28/18 20:51 Venturi Mask 8.0 35 02/28/18 20:51 95 Venturi Mask 8.0 35 02/28/18 20:00 98.1 78 19 125/60 94 Venturi Mask 35 98.1 02/28/18 20:00 98.1 78 20 125/54 95 Venturi Mask 35 98.1 02/28/18 18:10 97.5 75 19 135/74 95 Venturi Mask 35 97.5 02/28/18 16:10 98.0 94 19 122/50 95 Venturi Mask 35 98.0 02/28/18 15:55 97.2 94 19 113/50 95 Venturi Mask 35 97.2 Intake and Output 02/28/18 03/01/18 19:00 07:00 Intake Total 1013.334 ml 30 ml Balance 1013.334 ml 30 ml Free Water 100 ml IV Total 333.334 ml Tube Feeding 330 ml 30 ml Blood Product 250 ml # Voids 2 Laboratory Tests 03/01/18 07:30: White Blood Count 13.7H, Red Blood Count 2.50L, Hemoglobin 7.5L, Hematocrit 23.0L, Mean Corpuscular Volume 92, Mean Corpuscular Hemoglobin 30.2, Mean Corpuscular Hemoglobin Concent 32.9, Red Cell Distribution Width 15.8H, Platelet Count 60L, Mean Platelet Volume 8.3, Neutrophils (%) (Auto) , Lymphocytes (%) (Auto) , Monocytes (%) (Auto) , Eosinophils (%) (Auto) , Basophils (%) (Auto) , Differential Total Cells Counted 100, Neutrophils % ( Manual) 82H, Lymphocytes % (Manual) 9L, Monocytes % (Manual) 7, Eosinophils % ( Manual) 0, Basophils % (Manual) 0, Band Neutrophils 2, Platelet Estimate DecreasedL, Platelet Morphology Normal, Hypochromasia 2+, Anisocytosis 1+, Sodium Level 138, Potassium Level 3.4L, Chloride Level 97L, Carbon Dioxide Level 31, Anion Gap 10, Blood Urea Nitrogen 77H, Creatinine 8.2H, Estimat Glomerular Filtration Rate 6.6, Glucose Level 125H, Lactic Acid Level 0.80, Calcium Level 8.5, Phosphorus Level 2.7, Magnesium Level 2.5H, Total Bilirubin 1.4H, Direct Bilirubin 0.7H, Aspartate Amino Transf (AST/SGOT) 39H, Alanine Aminotransferase (ALT/SGPT) 31, Alkaline Phosphatase 234H, Pro-B-Type Natriuretic Peptide > 34292V, Total Protein 7.3, Albumin 2.5L, Globulin 4.8, Albumin/Globulin Ratio 0.5L Height (Feet): 5 Height (Inches): 7.00 Weight (Pounds): 134 General Appearance: lethargic EENT: normal ENT inspection Neck: normal alignment Cardiovascular: normal peripheral pulses, normal rate, regular rhythm Respiratory/Chest: chest wall non-tender, decreased breath sounds Abdomen: normal bowel sounds, non tender, soft Extremities: normal inspection Edema: no edema noted Arm (L), no edema noted Arm (R), no edema noted Leg (L), no edema noted Leg (R), no edema noted Pedal (L), no edema noted Pedal (R), no edema noted Generalized Neurologic: motor weakness Skin: normal pigmentation, warm/dry Lebron Swift DO March 01, 2018 15:32
--- NOTE | 2018-03-01 15:36 | Nephrology Progress Note ---
Assessment/Plan Problem List: (1) ESRD (end stage renal disease) on dialysis (2) Acute hyperkalemia (3) Hypertension, uncontrolled (4) Left leg DVT (5) Anemia in chronic kidney disease (CKD) Assessment BP stable stop mind altering meds ESRD, on admission missed dialysis . has high K on admission has fistula right arm Sever Anemia h/o Amyloidosis COPD Plan HD next 03/02 stop BP meds- on PRN clonidine only Transfusion as needed Kayexelate as needed BP control, meds adjusted has IVC filter add phos binders Subjective ROS Limited/Unobtainable: No Constitutional: Reports: malaise, weakness Objective Objective Last 24 Hour Vital Signs Date Time Temp Pulse Resp B/P (MAP) Pulse Ox O2 Delivery O2 Flow Rate FiO2 03/01/18 12:00 98.0 76 20 125/70 98 98.0 03/01/18 09:57 97.8 03/01/18 08:58 97.8 03/01/18 08:00 97.8 79 19 126/60 92 97.8 03/01/18 04:46 100.0 03/01/18 04:00 101.8 100 20 135/59 94 101.8 03/01/18 03:47 101.0 03/01/18 00:00 98.8 86 18 117/56 95 98.8 02/28/18 20:51 Venturi Mask 8.0 35 02/28/18 20:51 95 Venturi Mask 8.0 35 02/28/18 20:00 98.1 78 19 125/60 94 Venturi Mask 35 98.1 02/28/18 20:00 98.1 78 20 125/54 95 Venturi Mask 35 98.1 02/28/18 18:10 97.5 75 19 135/74 95 Venturi Mask 35 97.5 02/28/18 16:10 98.0 94 19 122/50 95 Venturi Mask 35 98.0 02/28/18 15:55 97.2 94 19 113/50 95 Venturi Mask 35 97.2 Intake and Output 02/28/18 03/01/18 19:00 07:00 Intake Total 1013.334 ml 30 ml Balance 1013.334 ml 30 ml Free Water 100 ml IV Total 333.334 ml Tube Feeding 330 ml 30 ml Blood Product 250 ml # Voids 2 Laboratory Tests 03/01/18 07:30: White Blood Count 13.7H, Red Blood Count 2.50L, Hemoglobin 7.5L, Hematocrit 23.0L, Mean Corpuscular Volume 92, Mean Corpuscular Hemoglobin 30.2, Mean Corpuscular Hemoglobin Concent 32.9, Red Cell Distribution Width 15.8H, Platelet Count 60L, Mean Platelet Volume 8.3, Neutrophils (%) (Auto) , Lymphocytes (%) (Auto) , Monocytes (%) (Auto) , Eosinophils (%) (Auto) , Basophils (%) (Auto) , Differential Total Cells Counted 100, Neutrophils % ( Manual) 82H, Lymphocytes % (Manual) 9L, Monocytes % (Manual) 7, Eosinophils % ( Manual) 0, Basophils % (Manual) 0, Band Neutrophils 2, Platelet Estimate DecreasedL, Platelet Morphology Normal, Hypochromasia 2+, Anisocytosis 1+, Sodium Level 138, Potassium Level 3.4L, Chloride Level 97L, Carbon Dioxide Level 31, Anion Gap 10, Blood Urea Nitrogen 77H, Creatinine 8.2H, Estimat Glomerular Filtration Rate 6.6, Glucose Level 125H, Lactic Acid Level 0.80, Calcium Level 8.5, Phosphorus Level 2.7, Magnesium Level 2.5H, Total Bilirubin 1.4H, Direct Bilirubin 0.7H, Aspartate Amino Transf (AST/SGOT) 39H, Alanine Aminotransferase (ALT/SGPT) 31, Alkaline Phosphatase 234H, Pro-B-Type Natriuretic Peptide > 00038D, Total Protein 7.3, Albumin 2.5L, Globulin 4.8, Albumin/Globulin Ratio 0.5L Height (Feet): 5 Height (Inches): 7.00 Weight (Pounds): 134 General Appearance: no apparent distress Cardiovascular: normal rate Respiratory/Chest: decreased breath sounds Abdomen: soft Objective no change DALTON ROSENTHAL March 01, 2018 15:36
--- NOTE | 2018-03-01 15:46 | Pulmonology Progress Note ---
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 titrate fio2 to sat of 92% check Hemoglobin, remains around 7 all meds reviewed Subjective ROS Limited/Unobtainable: No Constitutional: Reports: no symptoms HEENT: Repors: no symptoms Respiratory: Reports: no symptoms Allergies: Coded Allergies: No Known Allergies (Unverified , 02/02/18) Objective Last 24 Hour Vital Signs Date Time Temp Pulse Resp B/P (MAP) Pulse Ox O2 Delivery O2 Flow Rate FiO2 03/01/18 12:00 98.0 76 20 125/70 98 98.0 03/01/18 09:57 97.8 03/01/18 08:58 97.8 03/01/18 08:00 97.8 79 19 126/60 92 97.8 03/01/18 04:46 100.0 03/01/18 04:00 101.8 100 20 135/59 94 101.8 03/01/18 03:47 101.0 03/01/18 00:00 98.8 86 18 117/56 95 98.8 02/28/18 20:51 Venturi Mask 8.0 35 02/28/18 20:51 95 Venturi Mask 8.0 35 02/28/18 20:00 98.1 78 19 125/60 94 Venturi Mask 35 98.1 02/28/18 20:00 98.1 78 20 125/54 95 Venturi Mask 35 98.1 02/28/18 18:10 97.5 75 19 135/74 95 Venturi Mask 35 97.5 02/28/18 16:10 98.0 94 19 122/50 95 Venturi Mask 35 98.0 02/28/18 15:55 97.2 94 19 113/50 95 Venturi Mask 35 97.2 Intake and Output 02/28/18 03/01/18 19:00 07:00 Intake Total 1013.334 ml 30 ml Balance 1013.334 ml 30 ml Free Water 100 ml IV Total 333.334 ml Tube Feeding 330 ml 30 ml Blood Product 250 ml # Voids 2 Objective General Appearance: WD/WN HEENT: normocephalic, atraumatic Respiratory/Chest: chest wall non-tender, lungs clear Cardiovascular: normal peripheral pulses, normal rate, regular rhythm Abdomen: normal bowel sounds, soft, non tender, no organomegaly, non distended Extremities: no cyanosis, no clubbing, no edema Skin: no rash, no lesions Neurologic/Psychiatric: bag hanger II-XII grossly normal HEENT: normocephalic Respiratory/Chest: chest wall non-tender, lungs clear Cardiovascular: normal peripheral pulses, normal rate Abdomen: normal bowel sounds, no organomegaly Genitourinary: normal external genitalia Extremities: no cyanosis Neurologic/Psychiatric: bag hanger II-XII grossly normal Laboratory Tests 03/01/18 07:30: White Blood Count 13.7H, Red Blood Count 2.50L, Hemoglobin 7.5L, Hematocrit 23.0L, Mean Corpuscular Volume 92, Mean Corpuscular Hemoglobin 30.2, Mean Corpuscular Hemoglobin Concent 32.9, Red Cell Distribution Width 15.8H, Platelet Count 60L, Mean Platelet Volume 8.3, Neutrophils (%) (Auto) , Lymphocytes (%) (Auto) , Monocytes (%) (Auto) , Eosinophils (%) (Auto) , Basophils (%) (Auto) , Differential Total Cells Counted 100, Neutrophils % ( Manual) 82H, Lymphocytes % (Manual) 9L, Monocytes % (Manual) 7, Eosinophils % ( Manual) 0, Basophils % (Manual) 0, Band Neutrophils 2, Platelet Estimate DecreasedL, Platelet Morphology Normal, Hypochromasia 2+, Anisocytosis 1+, Sodium Level 138, Potassium Level 3.4L, Chloride Level 97L, Carbon Dioxide Level 31, Anion Gap 10, Blood Urea Nitrogen 77H, Creatinine 8.2H, Estimat Glomerular Filtration Rate 6.6, Glucose Level 125H, Lactic Acid Level 0.80, Calcium Level 8.5, Phosphorus Level 2.7, Magnesium Level 2.5H, Total Bilirubin 1.4H, Direct Bilirubin 0.7H, Aspartate Amino Transf (AST/SGOT) 39H, Alanine Aminotransferase (ALT/SGPT) 31, Alkaline Phosphatase 234H, Pro-B-Type Natriuretic Peptide > 82565W, Total Protein 7.3, Albumin 2.5L, Globulin 4.8, Albumin/Globulin Ratio 0.5L Current Medications Medications (Trade) Dose Ordered Sig/Blessing Route PRN Reason Start Time Stop Time Status Last Admin Dose Admin Acetaminophen (Tylenol) 500 mg 3XW PRN ORAL WITH DIALYSIS 03/01/18 09:00 03/27/18 08:59 Acetaminophen (Tylenol) 650 mg Q4H PRN RECTAL Mild Pain/Temp > 100.5 03/01/18 01:15 03/26/18 17:14 Acetaminophen (Tylenol) 650 mg Q6H PRN ORAL Mild Pain/Temp > 100.5 02/28/18 23:00 03/25/18 10:59 03/01/18 03:47 Chlorhexidine Gluconate (Miriam-Hex 2%) 1 applic DAILY@2000 TOPIC 03/01/18 20:00 03/28/18 19:59 Clonidine HCl (Catapres Tab) 0.1 mg EVERY 4 HOURS PRN ORAL FOR BP > 160. 03/01/18 01:00 03/25/18 10:44 Diphenhydramine HCl (Benadryl) 50 mg Q6H PRN ORAL Itching 02/28/18 23:00 03/25/18 10:59 03/01/18 08:57 Docusate Sodium (Colace) 100 mg THREE TIMES A DAY NG 03/01/18 09:00 03/27/18 08:59 03/01/18 14:26 Epoetin Alfonzo (Procrit (for ESRD on dialysis)) 10,000 units SUN-SUN-SUN SUBQ 03/01/18 21:00 03/27/18 20:59 Haloperidol Lactate (Haldol) 5 mg Q4H PRN IM AGITATION 02/28/18 23:00 03/25/18 10:59 Lansoprazole (Prevacid) 30 mg DAILY@0730 ORAL 03/01/18 07:30 03/31/18 07:29 03/01/18 09:07 Nicotine (Nicoderm) 1 patch Q24H TDERMAL 03/01/18 09:00 03/26/18 08:59 03/01/18 09:35 Oxycodone/ Acetaminophen (Percocet 5-325) 1 tab Q4H PRN ORAL Severe Pain (Pain Scale 7-10) 03/01/18 01:30 03/07/18 09:29 03/01/18 08:58 Prochlorperazine (Compazine) 10 mg Q6H PRN IVP Nausea & Vomiting 02/28/18 23:00 03/25/18 10:59 Quetiapine Fumarate (SEROquel) 25 mg QHS ORAL 03/01/18 21:00 03/25/18 20:59 Sevelamer Carbonate (Renvela) 800 mg THREE TIMES A DAY ORAL 03/01/18 18:00 03/25/18 14:57 UNV Vancomycin HCl (Vanco rx to dose) 1 ea DAILY PRN MISC Per rx protocol 03/01/18 09:00 03/28/18 16:29 Clement Mcleod MD March 01, 2018 15:46
[2018-03-01 16:00] VITALS: BP 128/64
[2018-03-01] MEDS: Docusate 100mg cap ORAL SCH (18:37)
--- NOTE | 2018-03-01 19:19 | Cardiology Progress Note ---
Assessment/Plan Assessment/Plan 1. Hypertension. 2. End-stage renal disease, on hemodialysis. 3. Anemia. 4. History of GI bleed secondary to AVMs. 5. Acute deep venous thrombosis, left leg. 6. History of femoral neck fracture 7. acute diastolic heart failure 8. persistent bacteremai felt to be due to dialysis catheter 9. thrombocytopenia ctpa neg for pe has ivc filter inplace already dilaysis / uf tele noted sinus had recurrent anemia now s/p prbc tx av and mv thickening noted on repeat echo persistent bacteremia is of concern pt awake buit confused consider neuro imaging adn neuro eval id input noted regarding persitent bacteremia Subjective ROS Limited/Unobtainable: Yes Subjective confused but awake Objective Last 24 Hour Vital Signs Date Time Temp Pulse Resp B/P (MAP) Pulse Ox O2 Delivery O2 Flow Rate FiO2 03/01/18 16:00 97.6 86 21 128/64 93 97.6 03/01/18 12:00 98.0 76 20 125/70 98 98.0 03/01/18 09:57 97.8 03/01/18 08:58 97.8 03/01/18 08:00 97.8 79 19 126/60 92 97.8 03/01/18 04:46 100.0 03/01/18 04:00 101.8 100 20 135/59 94 101.8 03/01/18 03:47 101.0 03/01/18 00:00 98.8 86 18 117/56 95 98.8 02/28/18 20:51 Venturi Mask 8.0 35 02/28/18 20:51 95 Venturi Mask 8.0 35 02/28/18 20:00 98.1 78 19 125/60 94 Venturi Mask 35 98.1 02/28/18 20:00 98.1 78 20 125/54 95 Venturi Mask 35 98.1 General Appearance: no apparent distress Neck: supple Cardiovascular: normal rate Respiratory/Chest: crackles/rales Abdomen: normal bowel sounds, non tender, soft Extremities: no swelling Intake and Output 02/28/18 03/01/18 19:00 07:00 Intake Total 1013.334 ml 60 ml Balance 1013.334 ml 60 ml Free Water 100 ml IV Total 333.334 ml Tube Feeding 330 ml 60 ml Blood Product 250 ml # Voids 2 Laboratory Tests Test 03/01/18 07:30 White Blood Count 13.7 K/UL (4.8-10.8) H Red Blood Count 2.50 M/UL (4.70-6.10) L Hemoglobin 7.5 G/DL (14.2-18.0) L Hematocrit 23.0 % (42.0-52.0) L Mean Corpuscular Volume 92 FL (80-99) Mean Corpuscular Hemoglobin 30.2 PG (27.0-31.0) Mean Corpuscular Hemoglobin Concent 32.9 G/DL (32.0-36.0) Red Cell Distribution Width 15.8 % (11.6-14.8) H Platelet Count 60 K/UL (150-450) L Mean Platelet Volume 8.3 FL (6.5-10.1) Neutrophils (%) (Auto) % (45.0-75.0) Lymphocytes (%) (Auto) % (20.0-45.0) Monocytes (%) (Auto) % (1.0-10.0) Eosinophils (%) (Auto) % (0.0-3.0) Basophils (%) (Auto) % (0.0-2.0) Differential Total Cells Counted 100 Neutrophils % (Manual) 82 % (45-75) H Lymphocytes % (Manual) 9 % (20-45) L Monocytes % (Manual) 7 % (1-10) Eosinophils % (Manual) 0 % (0-3) Basophils % (Manual) 0 % (0-2) Band Neutrophils 2 % (0-8) Platelet Estimate Decreased L Platelet Morphology Normal Hypochromasia 2+ Anisocytosis 1+ Sodium Level 138 MMOL/L (136-145) Potassium Level 3.4 MMOL/L (3.5-5.1) L Chloride Level 97 MMOL/L (98-107) L Carbon Dioxide Level 31 MMOL/L (21-32) Anion Gap 10 mmol/L (5-15) Blood Urea Nitrogen 77 mg/dL (7-18) H Creatinine 8.2 MG/DL (0.55-1.30) H Estimat Glomerular Filtration Rate 6.6 mL/min (>60) Glucose Level 125 MG/DL (74-106) H Lactic Acid Level 0.80 mmol/L (0.66-2.22) Calcium Level 8.5 MG/DL (8.5-10.1) Phosphorus Level 2.7 MG/DL (2.5-4.9) Magnesium Level 2.5 MG/DL (1.8-2.4) H Total Bilirubin 1.4 MG/DL (0.2-1.0) H Direct Bilirubin 0.7 MG/DL (0.0-0.3) H Aspartate Amino Transf (AST/SGOT) 39 U/L (15-37) H Alanine Aminotransferase (ALT/SGPT) 31 U/L (12-78) Alkaline Phosphatase 234 U/L (46-116) H Pro-B-Type Natriuretic Peptide > 19877 pg/mL (0-125) H Total Protein 7.3 G/DL (6.4-8.2) Albumin 2.5 G/DL (3.4-5.0) L Globulin 4.8 g/dL Albumin/Globulin Ratio 0.5 (1.0-2.7) L Jony Becker MD March 01, 2018 19:19
[2018-03-01 20:28] VITALS: BP 146/71
[2018-03-01] MEDS: Dyna-Hex 2% Top Sol 2oz TOPIC SCH (21:14)
[2018-03-01] MEDS: Epogen (for ESRD on dialysis) SUBQ SCH (21:15)
[2018-03-02] VITALS (7 sets, daily range): BP systolic 99–137; BP diastolic 50–76
[2018-03-02] MEDS: oxyCODONE HCL/Acetaminophen 5/325mg ORAL PRN (02:53)
--- NOTE | 2018-03-02 07:14 | Pulmonology Progress Note ---
Assessment/Plan Assessment/Plan ASSESSMENT Probable sepsis persistent MRSA bacteremia Symptomatic anemia Anemia of chronic kidney disease Anemia due to GI bleeding Acute hypoxemic respiratory failure requiring BiPAP resolved History of GI bleeding due to AVM End-stage renal disease, on hemodialysis Acute DVT left lower extremity, superficial femoral vein Status post prior IVC filter Hypertension COPD Moderate pulmonary hypertension Moderate mitral regurgitation hepatitis C Acute diastolic CHF history of amyloidoses History of open reduction internal fixation right hip fracture Major depression with psychotic features PLAN OF CARE MS floor abx, ID follows persistent bacteremia r/o AVF infection,- bone scan on Sunday as per ID recs if negative, consider AMAURI r/o vegetation per ID may benefit form CT C/A/P rule abscess as source of infection for IV contrast- clearance from nephro - likely do right before HD anemia workup consistent with anemia of chronic disease patient care representative follows patient on Epogen transfuse as needed with goal to keep Hgb above 7 patient care representative follows venous duplex with acute DVT left lower extremity superficial femoral vein previously already had IVC filter (placement verified by imaging) per patient care representative anticoagulation was discontinued due to severe anemia and the fact that patient already had IVC filter CTA of the chest no evidence of pulmonary emboli supplemental oxygen and pulmonary toilet as needed, follow-up with chest x-ray BiPAP prn 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 hemodialysis with ultrafiltration as per free lance model monitor renal parameters electrolytes , correct electrolytes as needed , avoid nephrotoxins 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 Pain management addressed Pain specialist follows Psychiatrist follows psychiatric medication regimen as per psychiatrist ; reality orientation and supportive therapy provided case discussed and evaluated by supervising physician Subjective Allergies: Coded Allergies: No Known Allergies (Unverified , 02/02/18) Subjective still with leucocytosis,afebrile Denies chest pain short Persistent bacteremia Objective Last 24 Hour Vital Signs Date Time Temp Pulse Resp B/P (MAP) Pulse Ox O2 Delivery O2 Flow Rate FiO2 03/02/18 04:40 97.5 76 17 134/60 94 97.5 03/02/18 00:07 97.3 88 18 137/59 92 97.3 03/01/18 20:28 98.1 89 17 146/71 90 98.1 03/01/18 16:00 97.6 86 21 128/64 93 97.6 03/01/18 12:00 98.0 76 20 125/70 98 98.0 03/01/18 09:57 97.8 03/01/18 08:58 97.8 03/01/18 08:00 97.8 79 19 126/60 92 97.8 Intake and Output 03/01/18 03/02/18 19:00 07:00 Intake Total 380 ml 100 ml Balance 380 ml 100 ml Intake Oral 160 ml 100 ml Free Water 100 ml Tube Feeding 120 ml # Bowel Movements 1 Objective General Appearance: no acute distress HEENT: normocephalic, atraumatic, anicteric , Venturi mask 35% Respiratory/Chest: chest wall non-tender, normal breath sounds, Cardiovascular: normal peripheral pulses, normal rate, RUE AV fistula + bruit /thrill, CL LIJ Abdomen: normal bowel sounds, soft, non tender Extremities: multiple tattoos BUE Neurologic/Psychiatric: awake, responsive Musculoskeletal: normal muscle bulk Microbiology Date/Time Source Procedure Growth Status 03/01/18 07:30 Blood Blood Culture - Preliminary Gram Positive Cocci Resulted 03/01/18 07:30 Blood Blood Culture - Preliminary Gram Positive Cocci Resulted Laboratory Tests 03/01/18 07:30: White Blood Count 13.7H, Red Blood Count 2.50L, Hemoglobin 7.5L, Hematocrit 23.0L, Mean Corpuscular Volume 92, Mean Corpuscular Hemoglobin 30.2, Mean Corpuscular Hemoglobin Concent 32.9, Red Cell Distribution Width 15.8H, Platelet Count 60L, Mean Platelet Volume 8.3, Neutrophils (%) (Auto) , Lymphocytes (%) (Auto) , Monocytes (%) (Auto) , Eosinophils (%) (Auto) , Basophils (%) (Auto) , Differential Total Cells Counted 100, Neutrophils % ( Manual) 82H, Lymphocytes % (Manual) 9L, Monocytes % (Manual) 7, Eosinophils % ( Manual) 0, Basophils % (Manual) 0, Band Neutrophils 2, Platelet Estimate DecreasedL, Platelet Morphology Normal, Hypochromasia 2+, Anisocytosis 1+, Sodium Level 138, Potassium Level 3.4L, Chloride Level 97L, Carbon Dioxide Level 31, Anion Gap 10, Blood Urea Nitrogen 77H, Creatinine 8.2H, Estimat Glomerular Filtration Rate 6.6, Glucose Level 125H, Lactic Acid Level 0.80, Calcium Level 8.5, Phosphorus Level 2.7, Magnesium Level 2.5H, Total Bilirubin 1.4H, Direct Bilirubin 0.7H, Aspartate Amino Transf (AST/SGOT) 39H, Alanine Aminotransferase (ALT/SGPT) 31, Alkaline Phosphatase 234H, Pro-B-Type Natriuretic Peptide > 17940Z, Total Protein 7.3, Albumin 2.5L, Globulin 4.8, Albumin/Globulin Ratio 0.5L 03/02/18 03:00: Stool Occult Blood [Pending] Current Medications Medications (Trade) Dose Ordered Sig/Blessing Route PRN Reason Start Time Stop Time Status Last Admin Dose Admin Acetaminophen (Tylenol) 500 mg 3XW PRN ORAL WITH DIALYSIS 03/01/18 09:00 03/27/18 08:59 Acetaminophen (Tylenol) 650 mg Q4H PRN RECTAL Mild Pain/Temp > 100.5 03/01/18 01:15 03/26/18 17:14 Acetaminophen (Tylenol) 650 mg Q6H PRN ORAL Mild Pain/Temp > 100.5 02/28/18 23:00 03/25/18 10:59 03/01/18 03:47 Chlorhexidine Gluconate (Miriam-Hex 2%) 1 applic DAILY@2000 TOPIC 03/01/18 20:00 03/28/18 19:59 03/01/18 21:14 Clonidine HCl (Catapres Tab) 0.1 mg EVERY 4 HOURS PRN ORAL FOR BP > 160. 03/01/18 01:00 03/25/18 10:44 Diphenhydramine HCl (Benadryl) 50 mg Q6H PRN ORAL Itching 02/28/18 23:00 03/25/18 10:59 03/01/18 08:57 Docusate Sodium (Colace) 100 mg THREE TIMES A DAY ORAL 03/01/18 18:00 03/31/18 17:59 03/01/18 18:37 Epoetin Alfonzo (Procrit (for ESRD on dialysis)) 10,000 units SUN-SUN-SUN SUBQ 03/01/18 21:00 03/27/18 20:59 03/01/18 21:15 Haloperidol Lactate (Haldol) 5 mg Q4H PRN IM AGITATION 02/28/18 23:00 03/25/18 10:59 Lansoprazole (Prevacid) 30 mg DAILY@0730 ORAL 03/01/18 07:30 03/31/18 07:29 03/02/18 06:47 Nicotine (Nicoderm) 1 patch Q24H TDERMAL 03/01/18 09:00 03/26/18 08:59 03/01/18 09:35 Oxycodone/ Acetaminophen (Percocet 5-325) 1 tab Q4H PRN ORAL Severe Pain (Pain Scale 7-10) 03/01/18 01:30 03/07/18 09:29 03/02/18 02:53 Prochlorperazine (Compazine) 10 mg Q6H PRN IVP Nausea & Vomiting 02/28/18 23:00 03/25/18 10:59 Quetiapine Fumarate (SEROquel) 25 mg QHS ORAL 03/01/18 21:00 03/25/18 20:59 03/01/18 21:14 Sevelamer Carbonate (Renvela) 800 mg TID@0730,1130,1730 ORAL 03/02/18 07:30 04/01/18 07:29 03/02/18 06:47 Vancomycin HCl (Vanco rx to dose) 1 ea DAILY PRN MISC Per rx protocol 03/01/18 09:00 03/28/18 16:29 Saida Vaz NP March 02, 2018 07:14
[2018-03-02 07:49] LABS: HEMATOCRIT 22.4 % (42.0-52.0); HEMOGLOBIN 7.5 G/DL (14.2-18.0); MEAN CORPUSCULAR VOLUME 91 FL (80-99); PLATELET COUNT 73 K/UL (150-450); RED BLOOD COUNT 2.46 M/UL (4.70-6.10); RED CELL DISTRIBUTION WIDTH 15.7 % (11.6-14.8); WHITE BLOOD COUNT 12.9 K/UL (4.8-10.8)
[2018-03-02 08:20] LABS: ALANINE AMINOTRANSFERASE 23 U/L (12-78); ALBUMIN 2.4 G/DL (3.4-5.0); ALBUMIN/GLOBULIN RATIO 0.5 (1.0-2.7); ALKALINE PHOSPHATASE 221 U/L (46-116); ANION GAP 9 mmol/L (5-15); ASPARTATE AMINO TRANSFERASE 28 U/L (15-37); BILIRUBIN,TOTAL 1.6 MG/DL (0.2-1.0); BLOOD UREA NITROGEN 92 mg/dL (7-18); CALCIUM 8.9 MG/DL (8.5-10.1); CARBON DIOXIDE 32 MMOL/L (21-32); CHLORIDE 97 MMOL/L (98-107); CREATININE 9.6 MG/DL (0.55-1.30); POTASSIUM 3.7 MMOL/L (3.5-5.1); SODIUM 138 MMOL/L (136-145)
[2018-03-02 08:21] LABS: BILIRUBIN,DIRECT 0.9 MG/DL (0.0-0.3)
--- NOTE | 2018-03-02 09:05 | General Progress Note ---
Assessment/Plan Problem List: (1) Anemia in chronic kidney disease (CKD) ICD Codes: N18.9 - Chronic kidney disease, unspecified; D63.1 - Anemia in chronic kidney disease SNOMED: 992835513, 092702576 (2) ESRF (end stage renal failure) ICD Codes: N18.6 - End stage renal disease SNOMED: 46054626 (3) Abnormal LFTs ICD Codes: R94.5 - Abnormal results of liver function studies SNOMED: 940278299 (4) Hepatitis C ICD Codes: B19.20 - Unspecified viral hepatitis C without hepatic coma SNOMED: 21662788 (5) DVT (deep venous thrombosis) ICD Codes: I82.409 - Acute embolism and thrombosis of unspecified deep veins of unspecified lower extremity SNOMED: 621328076 Assessment/Plan hx of EGD/colonoscopy 3 months ago per patient, cannot recall location. iron panel WNL OB stool negative >> send additional OB Hep C positive fu nephro recs monitor H&H, prn transfusions ppi thiamine fu labs outpatient GI procedures needs out patient fu for hep C treatment Subjective ROS Limited/Unobtainable: Yes Allergies: Coded Allergies: No Known Allergies (Unverified , 02/02/18) Subjective no event Objective Last 24 Hour Vital Signs Date Time Temp Pulse Resp B/P (MAP) Pulse Ox O2 Delivery O2 Flow Rate FiO2 03/02/18 08:00 98.6 69 18 98 98.6 03/02/18 04:40 97.5 76 17 134/60 94 97.5 03/02/18 00:07 97.3 88 18 137/59 92 97.3 03/01/18 20:28 98.1 89 17 146/71 90 98.1 03/01/18 16:00 97.6 86 21 128/64 93 97.6 03/01/18 12:00 98.0 76 20 125/70 98 98.0 03/01/18 09:57 97.8 Intake and Output 03/01/18 03/02/18 19:00 07:00 Intake Total 380 ml 100 ml Balance 380 ml 100 ml Intake Oral 160 ml 100 ml Free Water 100 ml Tube Feeding 120 ml # Bowel Movements 1 Laboratory Tests 03/02/18 03:00: Stool Occult Blood [Pending] 03/02/18 05:40: White Blood Count 12.9H, Red Blood Count 2.46L, Hemoglobin 7.5L, Hematocrit 22.4L, Mean Corpuscular Volume 91, Mean Corpuscular Hemoglobin 30.5, Mean Corpuscular Hemoglobin Concent 33.5, Red Cell Distribution Width 15.7H, Platelet Count 73L, Mean Platelet Volume 8.0, Neutrophils (%) (Auto) , Lymphocytes (%) (Auto) , Monocytes (%) (Auto) , Eosinophils (%) (Auto) , Basophils (%) (Auto) , Neutrophils % (Manual) [Pending], Lymphocytes % (Manual) [Pending], Platelet Estimate [Pending], Platelet Morphology [Pending], Sodium Level 138, Potassium Level 3.7, Chloride Level 97L, Carbon Dioxide Level 32, Anion Gap 9, Blood Urea Nitrogen 92H, Creatinine 9.6H, Estimat Glomerular Filtration Rate 5.5, Glucose Level 95, Calcium Level 8.9, Phosphorus Level 3.0, Magnesium Level 2.8H, Total Bilirubin 1.6H, Direct Bilirubin 0.9H, Aspartate Amino Transf (AST/SGOT) 28, Alanine Aminotransferase (ALT/SGPT) 23, Alkaline Phosphatase 221H, Total Protein 7.1, Albumin 2.4L, Globulin 4.7, Albumin/ Globulin Ratio 0.5L, Random Vancomycin Level 22.5 Height (Feet): 5 Height (Inches): 7.00 Weight (Pounds): 132 General Appearance: no apparent distress EENT: normal ENT inspection Neck: supple Cardiovascular: normal rate Respiratory/Chest: decreased breath sounds Abdomen: normal bowel sounds, non tender, soft Extremities: non-tender Tushar Matos MD March 02, 2018 09:05
[2018-03-02] MEDS: Docusate 100mg cap ORAL SCH ×3 (09:11→17:43)
--- NOTE | 2018-03-02 10:59 | General Progress Note ---
Assessment/Plan Problem List: (1) Abnormal laboratory test result ICD Codes: R89.9 - Unspecified abnormal finding in specimens from other organs , systems and tissues SNOMED: 716565947 (2) ESRD (end stage renal disease) on dialysis ICD Codes: N18.6 - End stage renal disease; Z99.2 - Dependence on renal dialysis SNOMED: 978421301 (3) Hypertension, uncontrolled ICD Codes: I10 - Essential (primary) hypertension SNOMED: 78481223, 52078216 (4) Symptomatic anemia ICD Codes: D64.9 - Anemia, unspecified SNOMED: 996149622 (5) Acute hyperkalemia ICD Codes: E87.5 - Hyperkalemia SNOMED: 5742740 (6) DVT (deep venous thrombosis) ICD Codes: I82.409 - Acute embolism and thrombosis of unspecified deep veins of unspecified lower extremity SNOMED: 093104311 (7) SOB (shortness of breath) ICD Codes: R06.02 - Shortness of breath SNOMED: 764523005 (8) Respiratory failure ICD Codes: J96.90 - Respiratory failure, unspecified, unspecified whether with hypoxia or hypercapnia SNOMED: 623174000 Status: unchanged Assessment/Plan ot pt diet o2 pulm tx gi/heme f/u anticoag pulm cbc bmp am dc plan snf if clear Subjective Constitutional: Reports: weakness Allergies: Coded Allergies: No Known Allergies (Unverified , 02/02/18) All Systems: reviewed and negative except above Subjective sleepy calm in bed Objective Last 24 Hour Vital Signs Date Time Temp Pulse Resp B/P (MAP) Pulse Ox O2 Delivery O2 Flow Rate FiO2 03/02/18 08:00 98.6 69 18 98 98.6 03/02/18 04:40 97.5 76 17 134/60 94 97.5 03/02/18 00:07 97.3 88 18 137/59 92 97.3 03/01/18 20:28 98.1 89 17 146/71 90 98.1 03/01/18 16:00 97.6 86 21 128/64 93 97.6 03/01/18 12:00 98.0 76 20 125/70 98 98.0 Intake and Output 03/01/18 03/02/18 19:00 07:00 Intake Total 380 ml 100 ml Balance 380 ml 100 ml Intake Oral 160 ml 100 ml Free Water 100 ml Tube Feeding 120 ml # Bowel Movements 1 Laboratory Tests 03/02/18 03:00: Stool Occult Blood [Pending] 03/02/18 05:40: White Blood Count 12.9H, Red Blood Count 2.46L, Hemoglobin 7.5L, Hematocrit 22.4L, Mean Corpuscular Volume 91, Mean Corpuscular Hemoglobin 30.5, Mean Corpuscular Hemoglobin Concent 33.5, Red Cell Distribution Width 15.7H, Platelet Count 73L, Mean Platelet Volume 8.0, Neutrophils (%) (Auto) , Lymphocytes (%) (Auto) , Monocytes (%) (Auto) , Eosinophils (%) (Auto) , Basophils (%) (Auto) , Differential Total Cells Counted 100, Neutrophils % ( Manual) 87H, Lymphocytes % (Manual) 7L, Monocytes % (Manual) 2, Eosinophils % ( Manual) 3, Basophils % (Manual) 0, Band Neutrophils 1, Platelet Estimate DecreasedL, Platelet Morphology Normal, Polychromasia 1+, Hypochromasia 1+, Anisocytosis 1+, Sodium Level 138, Potassium Level 3.7, Chloride Level 97L, Carbon Dioxide Level 32, Anion Gap 9, Blood Urea Nitrogen 92H, Creatinine 9.6H, Estimat Glomerular Filtration Rate 5.5, Glucose Level 95, Calcium Level 8.9, Phosphorus Level 3.0, Magnesium Level 2.8H, Total Bilirubin 1.6H, Direct Bilirubin 0.9H, Aspartate Amino Transf (AST/SGOT) 28, Alanine Aminotransferase ( ALT/SGPT) 23, Alkaline Phosphatase 221H, Total Protein 7.1, Albumin 2.4L, Globulin 4.7, Albumin/Globulin Ratio 0.5L, Random Vancomycin Level 22.5 Height (Feet): 5 Height (Inches): 7.00 Weight (Pounds): 132 General Appearance: lethargic EENT: normal ENT inspection Neck: normal alignment Cardiovascular: normal peripheral pulses, normal rate, regular rhythm Respiratory/Chest: chest wall non-tender, lungs clear, normal breath sounds Abdomen: normal bowel sounds, non tender, soft Extremities: normal inspection Edema: no edema noted Arm (L), no edema noted Arm (R), no edema noted Leg (L), no edema noted Leg (R), no edema noted Pedal (L), no edema noted Pedal (R), no edema noted Generalized Neurologic: motor weakness Skin: normal pigmentation, warm/dry Lebron Swift DO March 02, 2018 10:59
--- NOTE | 2018-03-02 11:16 | Progress Note ---
DATE: 03/02/2018 SUBJECTIVE: This is a 63-year-old patient with anemia and GI bleed. The patient still has some confusion, disorganized, mood lability. Poor cognition secondary to the stress of his medical illness. That is why, his attending has requested daily psychiatric consultation. MENTAL STATUS EXAMINATION: This is a 63-year-old male. Appearance is disheveled. Attitude, irritable and agitated. Affect, guarded and restricted. Intellect poor. Mood, depressed and anxious. Motor activity, psychomotor agitation. Attention span is poor. Orientation x2. Speech is pressured. Thought process, disorganized and illogical. Thought content, auditory hallucinations and paranoid delusions. Insight and judgment is poor. DIAGNOSIS: Major depressive disorder with psychotic features. PLAN: To treat him with Seroquel 25 mg at bedtime. Provided 18 to 20 minutes of supportive psychotherapy. Chart reviewed and discussed with staff. Seen and assessed at bedside. Rony Corral M.D. DR: PAM JOB#: [id number] CC:
--- NOTE | 2018-03-02 11:25 | General Progress Note ---
Assessment/Plan Status: stable Assessment/Plan IMPRESSION/RECS: #. Acute deep venous thrombosis of left lower extremity. --> Status post inferior vena cava filter placement. --> given persistent low h/h and fact that has ivc filter, coumadin discontinued --> based on clinical exam, clot is not worse #. Anemia of gastrointestinal bleed. --> transfuse if hgb <7, workup has been reviewed --> Appreciate gi recs, has been seen by them --> had endoscopy but location unknown where he had it #. Thrombocytopenia baseline likely plt count of >50-100k --> likely related to splenomegaly and hepatitis C --> monitor closely for bleed if downtrends though this is less likely --> transfuse to keep plt >20k #. Anemia of kidney disease. 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 Anemia of chronic disease is s/p blood transfusion. #. End-stage renal disease, hemodialysis dependent. --> epo to continue 3x a week #. History of femoral neck fracture. On pain control. #. Acute respiratory failure. #. Hep C ++ Subjective Date patient seen: March 01, 2018 Allergies: Coded Allergies: No Known Allergies (Unverified , 02/02/18) All Systems: reviewed and negative except above Subjective Pt is awkae and resting in bed. No recent events, hd as per renal, cont blood on prn basis Objective Last 24 Hour Vital Signs Date Time Temp Pulse Resp B/P (MAP) Pulse Ox O2 Delivery O2 Flow Rate FiO2 03/02/18 08:00 98.6 69 18 98 98.6 03/02/18 04:40 97.5 76 17 134/60 94 97.5 03/02/18 00:07 97.3 88 18 137/59 92 97.3 03/01/18 20:28 98.1 89 17 146/71 90 98.1 03/01/18 16:00 97.6 86 21 128/64 93 97.6 03/01/18 12:00 98.0 76 20 125/70 98 98.0 Intake and Output 03/01/18 03/02/18 19:00 07:00 Intake Total 380 ml 100 ml Balance 380 ml 100 ml Intake Oral 160 ml 100 ml Free Water 100 ml Tube Feeding 120 ml # Bowel Movements 1 Laboratory Tests 03/02/18 03:00: Stool Occult Blood [Pending] 03/02/18 05:40: White Blood Count 12.9H, Red Blood Count 2.46L, Hemoglobin 7.5L, Hematocrit 22.4L, Mean Corpuscular Volume 91, Mean Corpuscular Hemoglobin 30.5, Mean Corpuscular Hemoglobin Concent 33.5, Red Cell Distribution Width 15.7H, Platelet Count 73L, Mean Platelet Volume 8.0, Neutrophils (%) (Auto) , Lymphocytes (%) (Auto) , Monocytes (%) (Auto) , Eosinophils (%) (Auto) , Basophils (%) (Auto) , Differential Total Cells Counted 100, Neutrophils % ( Manual) 87H, Lymphocytes % (Manual) 7L, Monocytes % (Manual) 2, Eosinophils % ( Manual) 3, Basophils % (Manual) 0, Band Neutrophils 1, Platelet Estimate DecreasedL, Platelet Morphology Normal, Polychromasia 1+, Hypochromasia 1+, Anisocytosis 1+, Sodium Level 138, Potassium Level 3.7, Chloride Level 97L, Carbon Dioxide Level 32, Anion Gap 9, Blood Urea Nitrogen 92H, Creatinine 9.6H, Estimat Glomerular Filtration Rate 5.5, Glucose Level 95, Calcium Level 8.9, Phosphorus Level 3.0, Magnesium Level 2.8H, Total Bilirubin 1.6H, Direct Bilirubin 0.9H, Aspartate Amino Transf (AST/SGOT) 28, Alanine Aminotransferase ( ALT/SGPT) 23, Alkaline Phosphatase 221H, Total Protein 7.1, Albumin 2.4L, Globulin 4.7, Albumin/Globulin Ratio 0.5L, Random Vancomycin Level 22.5 Height (Feet): 5 Height (Inches): 7.00 Weight (Pounds): 132 General Appearance: no apparent distress EENT: PERRL/EOMI Neck: non-tender Cardiovascular: normal peripheral pulses Respiratory/Chest: chest wall non-tender, lungs clear Tristen Lewis MD March 02, 2018 11:25
--- NOTE | 2018-03-02 11:31 | Progress Note ---
DATE: 03/02/2018 ADDENDUM PLAN: An 18 to 20 minutes of supportive psychotherapy provided. Rony Corral M.D. DR: PAM JOB#: [id number] CC:
--- NOTE | 2018-03-02 12:19 | Infectious Diseases Prog Note ---
Assessment/Plan Assessment/Plan ASSESSMENT: The patient is a 63-year-old male with, Fever, SP Bacteremia MRSA ( 02/22&13 ) ( m/l 2/2 HD ) ( 03/01 )repeat Bl Cx : GPC Ro AVF infection ( erythema and swollen + ) 02/26 2DEcho limited , av and mv thickening but no Veg Leukocytosis ,mild 02/06/ CT of chest [id number] : no evidence of pulmonary emboli, diffuse septal thickening, and bilateral ground glass opacities, and small bilateral pleural effusion. Neg : HIV , Hep panel gastrointestinal bleed : had endoscopy but location unknown 02/25 SP Lt IJ Anemia. End-stage renal disease, on hemodialysis. Left leg DVT. Right hip fracture, status post ORIF. History of hepatitis C Splenomegaly. Status post IVC filter placement PLAN: Cont patient on IV vancomycin ( AB Rx d# - ) duration depend on the clinical findings / improvement if repeat blood Cx ( 03/03 ) positve , may switch to Dapto ( +/- anti-staph Betalactam ) SP 02/26 Zyvox d# 1 ( pt now has IV Access ) Monitor CBC. Monitor BMP. Monitor blood cultures Monitor chest x-ray. Monitor vital signs if WBC Scan negative to Ro AVF infection , will Rec AMAURI ( ESTELA PCP ) CT C/A/P ro abscess care was estela RN , PCP and Nephro Pt may Benefit from CT of C/A/P ro abscess , pt can not sign and no family available for consent Subjective Allergies: Coded Allergies: No Known Allergies (Unverified , 02/02/18) Subjective +ve blood culture Objective Vital Signs Last 24 Hour Vital Signs Date Time Temp Pulse Resp B/P (MAP) Pulse Ox O2 Delivery O2 Flow Rate FiO2 03/02/18 08:00 98.6 69 18 98 98.6 03/02/18 04:40 97.5 76 17 134/60 94 97.5 03/02/18 00:07 97.3 88 18 137/59 92 97.3 03/01/18 20:28 98.1 89 17 146/71 90 98.1 03/01/18 16:00 97.6 86 21 128/64 93 97.6 Height (Feet): 5 Height (Inches): 7.00 Weight (Pounds): 132 HEENT: anicteric Respiratory/Chest: no respiratory distress Cardiovascular: regular rhythm Abdomen: soft, non tender Microbiology Date/Time Source Procedure Growth Status 03/01/18 07:30 Blood Blood Culture - Preliminary Gram Positive Cocci Resulted 03/01/18 07:30 Blood Blood Culture - Preliminary Gram Positive Cocci Resulted Laboratory Tests Test 03/02/18 03:00 03/02/18 05:40 Stool Occult Blood Pending White Blood Count 12.9 K/UL (4.8-10.8) H Red Blood Count 2.46 M/UL (4.70-6.10) L Hemoglobin 7.5 G/DL (14.2-18.0) L Hematocrit 22.4 % (42.0-52.0) L Mean Corpuscular Volume 91 FL (80-99) Mean Corpuscular Hemoglobin 30.5 PG (27.0-31.0) Mean Corpuscular Hemoglobin Concent 33.5 G/DL (32.0-36.0) Red Cell Distribution Width 15.7 % (11.6-14.8) H Platelet Count 73 K/UL (150-450) L Mean Platelet Volume 8.0 FL (6.5-10.1) Neutrophils (%) (Auto) % (45.0-75.0) Lymphocytes (%) (Auto) % (20.0-45.0) Monocytes (%) (Auto) % (1.0-10.0) Eosinophils (%) (Auto) % (0.0-3.0) Basophils (%) (Auto) % (0.0-2.0) Differential Total Cells Counted 100 Neutrophils % (Manual) 87 % (45-75) H Lymphocytes % (Manual) 7 % (20-45) L Monocytes % (Manual) 2 % (1-10) Eosinophils % (Manual) 3 % (0-3) Basophils % (Manual) 0 % (0-2) Band Neutrophils 1 % (0-8) Platelet Estimate Decreased L Platelet Morphology Normal Polychromasia 1+ Hypochromasia 1+ Anisocytosis 1+ Sodium Level 138 MMOL/L (136-145) Potassium Level 3.7 MMOL/L (3.5-5.1) Chloride Level 97 MMOL/L (98-107) L Carbon Dioxide Level 32 MMOL/L (21-32) Anion Gap 9 mmol/L (5-15) Blood Urea Nitrogen 92 mg/dL (7-18) H Creatinine 9.6 MG/DL (0.55-1.30) H Estimat Glomerular Filtration Rate 5.5 mL/min (>60) Glucose Level 95 MG/DL (74-106) Calcium Level 8.9 MG/DL (8.5-10.1) Phosphorus Level 3.0 MG/DL (2.5-4.9) Magnesium Level 2.8 MG/DL (1.8-2.4) H Total Bilirubin 1.6 MG/DL (0.2-1.0) H Direct Bilirubin 0.9 MG/DL (0.0-0.3) H Aspartate Amino Transf (AST/SGOT) 28 U/L (15-37) Alanine Aminotransferase (ALT/SGPT) 23 U/L (12-78) Alkaline Phosphatase 221 U/L (46-116) H Total Protein 7.1 G/DL (6.4-8.2) Albumin 2.4 G/DL (3.4-5.0) L Globulin 4.7 g/dL Albumin/Globulin Ratio 0.5 (1.0-2.7) L Random Vancomycin Level 22.5 ug/mL Current Medications Medications (Trade) Dose Ordered Sig/Blessing Route PRN Reason Start Time Stop Time Status Last Admin Dose Admin Acetaminophen (Tylenol) 500 mg 3XW PRN ORAL WITH DIALYSIS 03/01/18 09:00 03/27/18 08:59 Acetaminophen (Tylenol) 650 mg Q4H PRN RECTAL Mild Pain/Temp > 100.5 03/01/18 01:15 03/26/18 17:14 Acetaminophen (Tylenol) 650 mg Q6H PRN ORAL Mild Pain/Temp > 100.5 02/28/18 23:00 03/25/18 10:59 03/01/18 03:47 Chlorhexidine Gluconate (Miriam-Hex 2%) 1 applic DAILY@2000 TOPIC 03/01/18 20:00 03/28/18 19:59 03/01/18 21:14 Clonidine HCl (Catapres Tab) 0.1 mg EVERY 4 HOURS PRN ORAL FOR BP > 160. 03/01/18 01:00 03/25/18 10:44 Diphenhydramine HCl (Benadryl) 50 mg Q6H PRN ORAL Itching 02/28/18 23:00 03/25/18 10:59 03/01/18 08:57 Docusate Sodium (Colace) 100 mg THREE TIMES A DAY ORAL 03/01/18 18:00 03/31/18 17:59 03/02/18 09:11 Epoetin Alfonzo (Procrit (for ESRD on dialysis)) 10,000 units SUN-SUN-SUN SUBQ 03/01/18 21:00 03/27/18 20:59 03/01/18 21:15 Haloperidol Lactate (Haldol) 5 mg Q4H PRN IM AGITATION 02/28/18 23:00 03/25/18 10:59 Lansoprazole (Prevacid) 30 mg DAILY@0730 ORAL 03/01/18 07:30 03/31/18 07:29 03/02/18 06:47 Nicotine (Nicoderm) 1 patch Q24H TDERMAL 03/01/18 09:00 03/26/18 08:59 03/02/18 09:11 Oxycodone/ Acetaminophen (Percocet 5-325) 1 tab Q4H PRN ORAL Severe Pain (Pain Scale 7-10) 03/01/18 01:30 03/07/18 09:29 03/02/18 02:53 Prochlorperazine (Compazine) 10 mg Q6H PRN IVP Nausea & Vomiting 02/28/18 23:00 03/25/18 10:59 Quetiapine Fumarate (SEROquel) 25 mg QHS ORAL 03/01/18 21:00 03/25/18 20:59 03/01/18 21:14 Sevelamer Carbonate (Renvela) 800 mg TID@0730,1130,1730 ORAL 03/02/18 07:30 04/01/18 07:29 03/02/18 12:10 Vancomycin HCl (Vanco rx to dose) 1 ea DAILY PRN MISC Per rx protocol 03/02/18 11:00 04/01/18 10:59 Vancomycin HCl 500 mg/Dextrose 110 ml @ 110 mls/hr ONCE ONCE IVPB 03/02/18 21:00 03/02/18 21:59 Kevin Mendoza MD March 02, 2018 12:18
[2018-03-02] MEDS ORDERED: Isovue-300 100ml vial INJ PRN (12:30)
--- NOTE | 2018-03-02 14:37 | Nephrology Progress Note ---
Assessment/Plan Problem List: (1) ESRD (end stage renal disease) on dialysis (2) Acute hyperkalemia (3) Hypertension, uncontrolled (4) Left leg DVT (5) Anemia in chronic kidney disease (CKD) Assessment BP stable stop mind altering meds ESRD, on admission missed dialysis . has high K on admission has fistula right arm Sever Anemia h/o Amyloidosis COPD Plan HD next 03/02 stop BP meds- on PRN clonidine only Transfusion as needed Kayexelate as needed BP control, meds adjusted has IVC filter add phos binders Subjective ROS Limited/Unobtainable: No Constitutional: Reports: malaise Objective Objective Last 24 Hour Vital Signs Date Time Temp Pulse Resp B/P (MAP) Pulse Ox O2 Delivery O2 Flow Rate FiO2 03/02/18 12:00 97.2 73 18 121/52 97 97.2 03/02/18 08:00 98.6 69 18 98 98.6 03/02/18 04:40 97.5 76 17 134/60 94 97.5 03/02/18 00:07 97.3 88 18 137/59 92 97.3 03/01/18 20:28 98.1 89 17 146/71 90 98.1 03/01/18 16:00 97.6 86 21 128/64 93 97.6 Intake and Output 03/01/18 03/02/18 19:00 07:00 Intake Total 380 ml 100 ml Balance 380 ml 100 ml Intake Oral 160 ml 100 ml Free Water 100 ml Tube Feeding 120 ml # Bowel Movements 1 Laboratory Tests 03/02/18 03:00: Stool Occult Blood [Pending] 03/02/18 05:40: White Blood Count 12.9H, Red Blood Count 2.46L, Hemoglobin 7.5L, Hematocrit 22.4L, Mean Corpuscular Volume 91, Mean Corpuscular Hemoglobin 30.5, Mean Corpuscular Hemoglobin Concent 33.5, Red Cell Distribution Width 15.7H, Platelet Count 73L, Mean Platelet Volume 8.0, Neutrophils (%) (Auto) , Lymphocytes (%) (Auto) , Monocytes (%) (Auto) , Eosinophils (%) (Auto) , Basophils (%) (Auto) , Differential Total Cells Counted 100, Neutrophils % ( Manual) 87H, Lymphocytes % (Manual) 7L, Monocytes % (Manual) 2, Eosinophils % ( Manual) 3, Basophils % (Manual) 0, Band Neutrophils 1, Platelet Estimate DecreasedL, Platelet Morphology Normal, Polychromasia 1+, Hypochromasia 1+, Anisocytosis 1+, Sodium Level 138, Potassium Level 3.7, Chloride Level 97L, Carbon Dioxide Level 32, Anion Gap 9, Blood Urea Nitrogen 92H, Creatinine 9.6H, Estimat Glomerular Filtration Rate 5.5, Glucose Level 95, Calcium Level 8.9, Phosphorus Level 3.0, Magnesium Level 2.8H, Total Bilirubin 1.6H, Direct Bilirubin 0.9H, Aspartate Amino Transf (AST/SGOT) 28, Alanine Aminotransferase ( ALT/SGPT) 23, Alkaline Phosphatase 221H, Total Protein 7.1, Albumin 2.4L, Globulin 4.7, Albumin/Globulin Ratio 0.5L, Random Vancomycin Level 22.5 Height (Feet): 5 Height (Inches): 7.00 Weight (Pounds): 132 General Appearance: no apparent distress Cardiovascular: normal rate Respiratory/Chest: decreased breath sounds Abdomen: soft Objective no change DALTON ROSENTHAL March 02, 2018 14:37
[2018-03-02] MEDS ORDERED: NS 500ML ONE (15:04)
--- NOTE | 2018-03-02 19:29 | Cardiology Progress Note ---
Assessment/Plan Assessment/Plan stable, no respiratory distress Subjective Subjective The patient is sleeping, according to franciscoter, was sleeping the whole day, but woke up for meals, the patient reports no dyspnea, feels better Objective Last 24 Hour Vital Signs Date Time Temp Pulse Resp B/P (MAP) Pulse Ox O2 Delivery O2 Flow Rate FiO2 03/02/18 17:00 97.9 77 20 99/50 Mechanical Ventilator 4.0 97.9 03/02/18 17:00 Venturi Mask 4.0 03/02/18 16:00 98.1 74 20 134/54 92 98.1 03/02/18 14:30 Venturi Mask 4.0 03/02/18 14:30 98.1 78 20 118/55 Venturi Mask 4.0 98.1 03/02/18 12:00 97.2 73 18 121/52 97 97.2 03/02/18 08:00 98.6 69 18 98 98.6 03/02/18 04:40 97.5 76 17 134/60 94 97.5 03/02/18 00:07 97.3 88 18 137/59 92 97.3 03/01/18 20:28 98.1 89 17 146/71 90 98.1 General Appearance: thin EENT: PERRL/EOMI Neck: supple Rhythm: NSR Cardiovascular: normal rate Respiratory/Chest: crackles/rales - posterior Abdomen: decreased bowel sounds Extremities: trace edema Intake and Output 03/01/18 03/02/18 19:00 07:00 Intake Total 380 ml 100 ml Balance 380 ml 100 ml Intake Oral 160 ml 100 ml Free Water 100 ml Tube Feeding 120 ml # Bowel Movements 1 Laboratory Tests Test 03/02/18 03:00 03/02/18 05:40 Stool Occult Blood Pending White Blood Count 12.9 K/UL (4.8-10.8) H Red Blood Count 2.46 M/UL (4.70-6.10) L Hemoglobin 7.5 G/DL (14.2-18.0) L Hematocrit 22.4 % (42.0-52.0) L Mean Corpuscular Volume 91 FL (80-99) Mean Corpuscular Hemoglobin 30.5 PG (27.0-31.0) Mean Corpuscular Hemoglobin Concent 33.5 G/DL (32.0-36.0) Red Cell Distribution Width 15.7 % (11.6-14.8) H Platelet Count 73 K/UL (150-450) L Mean Platelet Volume 8.0 FL (6.5-10.1) Neutrophils (%) (Auto) % (45.0-75.0) Lymphocytes (%) (Auto) % (20.0-45.0) Monocytes (%) (Auto) % (1.0-10.0) Eosinophils (%) (Auto) % (0.0-3.0) Basophils (%) (Auto) % (0.0-2.0) Differential Total Cells Counted 100 Neutrophils % (Manual) 87 % (45-75) H Lymphocytes % (Manual) 7 % (20-45) L Monocytes % (Manual) 2 % (1-10) Eosinophils % (Manual) 3 % (0-3) Basophils % (Manual) 0 % (0-2) Band Neutrophils 1 % (0-8) Platelet Estimate Decreased L Platelet Morphology Normal Polychromasia 1+ Hypochromasia 1+ Anisocytosis 1+ Sodium Level 138 MMOL/L (136-145) Potassium Level 3.7 MMOL/L (3.5-5.1) Chloride Level 97 MMOL/L (98-107) L Carbon Dioxide Level 32 MMOL/L (21-32) Anion Gap 9 mmol/L (5-15) Blood Urea Nitrogen 92 mg/dL (7-18) H Creatinine 9.6 MG/DL (0.55-1.30) H Estimat Glomerular Filtration Rate 5.5 mL/min (>60) Glucose Level 95 MG/DL (74-106) Calcium Level 8.9 MG/DL (8.5-10.1) Phosphorus Level 3.0 MG/DL (2.5-4.9) Magnesium Level 2.8 MG/DL (1.8-2.4) H Total Bilirubin 1.6 MG/DL (0.2-1.0) H Direct Bilirubin 0.9 MG/DL (0.0-0.3) H Aspartate Amino Transf (AST/SGOT) 28 U/L (15-37) Alanine Aminotransferase (ALT/SGPT) 23 U/L (12-78) Alkaline Phosphatase 221 U/L (46-116) H Total Protein 7.1 G/DL (6.4-8.2) Albumin 2.4 G/DL (3.4-5.0) L Globulin 4.7 g/dL Albumin/Globulin Ratio 0.5 (1.0-2.7) L Random Vancomycin Level 22.5 ug/mL Microbiology Date/Time Source Procedure Growth Status 03/01/18 07:30 Blood Blood Culture - Preliminary Gram Positive Cocci Resulted 03/01/18 07:30 Blood Blood Culture - Preliminary Gram Positive Cocci Resulted Crystal Plasencia MD March 02, 2018 19:29
[2018-03-02] MEDS: Dyna-Hex 2% Top Sol 2oz TOPIC SCH (20:54)
[2018-03-02] MEDS ORDERED: Vancomycin 500mg/D5W 110ml IVPB ONE ×2 (21:00)
[2018-03-03] VITALS (8 sets, daily range): BP systolic 100–133; BP diastolic 50–62
[2018-03-03] MEDS: oxyCODONE HCL/Acetaminophen 5/325mg ORAL PRN ×2 (01:18→19:00)
[2018-03-03 08:51] LABS: HEMOGLOBIN 7.6 G/DL (14.2-18.0); MEAN CORPUSCULAR VOLUME 92 FL (80-99); PLATELET COUNT 90 K/UL (150-450); RED CELL DISTRIBUTION WIDTH 16.6 % (11.6-14.8); WHITE BLOOD COUNT 10.4 K/UL (4.8-10.8)
[2018-03-03] MEDS: Docusate 100mg cap ORAL SCH ×3 (09:00→17:12)
[2018-03-03 09:14] LABS: ANION GAP 10 mmol/L (5-15); BLOOD UREA NITROGEN 69 mg/dL (7-18); CALCIUM 8.7 MG/DL (8.5-10.1); CARBON DIOXIDE 33 MMOL/L (21-32); CHLORIDE 99 MMOL/L (98-107); CREATININE 8.4 MG/DL (0.55-1.30); POTASSIUM 3.5 MMOL/L (3.5-5.1); SODIUM 142 MMOL/L (136-145)
[2018-03-03] MEDS ORDERED: NS 275ml ONE (09:49)
[2018-03-03] MEDS ORDERED: Tubing IV Secondary IV ONE (09:49)
--- NOTE | 2018-03-03 09:53 | General Progress Note ---
Assessment/Plan Problem List: (1) Anemia in chronic kidney disease (CKD) ICD Codes: N18.9 - Chronic kidney disease, unspecified; D63.1 - Anemia in chronic kidney disease SNOMED: 241702429, 981770525 (2) ESRF (end stage renal failure) ICD Codes: N18.6 - End stage renal disease SNOMED: 16577635 (3) Abnormal LFTs ICD Codes: R94.5 - Abnormal results of liver function studies SNOMED: 934745090 (4) Hepatitis C ICD Codes: B19.20 - Unspecified viral hepatitis C without hepatic coma SNOMED: 64909756 (5) DVT (deep venous thrombosis) ICD Codes: I82.409 - Acute embolism and thrombosis of unspecified deep veins of unspecified lower extremity SNOMED: 430680970 Assessment/Plan hx of EGD/colonoscopy 3 months ago per patient, cannot recall location. iron panel WNL OB stool negative >> send additional OB Hep C positive fu nephro recs monitor H&H, prn transfusions ppi thiamine fu labs outpatient GI procedures needs out patient fu for hep C treatment fu ID recs, pending [facility] CT, possible AMAURI Subjective ROS Limited/Unobtainable: Yes Allergies: Coded Allergies: No Known Allergies (Unverified , 02/02/18) Subjective no event Objective Last 24 Hour Vital Signs Date Time Temp Pulse Resp B/P (MAP) Pulse Ox O2 Delivery O2 Flow Rate FiO2 03/03/18 08:00 71 16 119/53 91 03/03/18 04:00 98.8 74 24 115/50 94 Venturi Mask 98.8 03/03/18 02:17 97.9 03/03/18 01:18 97.9 03/03/18 00:58 Venturi Mask 6.0 35 03/03/18 00:57 97.9 91 28 118/53 94 Venturi Mask 97.9 03/02/18 20:15 Venturi Mask 6.0 35 03/02/18 20:14 98.1 92 20 129/76 94 Venturi Mask 98.1 03/02/18 17:00 97.9 77 20 99/50 Mechanical Ventilator 4.0 97.9 03/02/18 17:00 Venturi Mask 4.0 03/02/18 16:00 98.1 74 20 134/54 92 98.1 03/02/18 14:30 Venturi Mask 4.0 03/02/18 14:30 98.1 78 20 118/55 Venturi Mask 4.0 98.1 03/02/18 12:00 97.2 73 18 121/52 97 97.2 Intake and Output 03/02/18 03/03/18 19:00 07:00 Output Total 1400 ml Balance -1400 ml Hemodialysis UF 1400 ml # Bowel Movements 1 Laboratory Tests 03/03/18 06:30: White Blood Count 10.4, Red Blood Count 2.50L, Hemoglobin 7.6L, Hematocrit 23.0L , Mean Corpuscular Volume 92, Mean Corpuscular Hemoglobin 30.3, Mean Corpuscular Hemoglobin Concent 33.0, Red Cell Distribution Width 16.6H, Platelet Count 90L, Mean Platelet Volume 8.3, Neutrophils (%) (Auto) , Lymphocytes (%) (Auto) , Monocytes (%) (Auto) , Eosinophils (%) (Auto) , Basophils (%) (Auto) , Neutrophils % (Manual) [Pending], Lymphocytes % (Manual) [Pending], Platelet Estimate [Pending], Platelet Morphology [Pending], Sodium Level 142, Potassium Level 3.5, Chloride Level 99, Carbon Dioxide Level 33H, Anion Gap 10, Blood Urea Nitrogen 69H, Creatinine 8.4H, Estimat Glomerular Filtration Rate 6.5, Glucose Level 98, Calcium Level 8.7 Height (Feet): 5 Height (Inches): 7.00 Weight (Pounds): 127 General Appearance: no apparent distress EENT: normal ENT inspection Neck: supple Cardiovascular: normal rate Respiratory/Chest: decreased breath sounds Abdomen: normal bowel sounds, non tender, soft Extremities: non-tender Tushar Matos MD March 03, 2018 09:53
--- NOTE | 2018-03-03 09:58 | General Progress Note ---
Assessment/Plan Problem List: (1) Abnormal laboratory test result ICD Codes: R89.9 - Unspecified abnormal finding in specimens from other organs , systems and tissues SNOMED: 345599237 (2) ESRD (end stage renal disease) on dialysis ICD Codes: N18.6 - End stage renal disease; Z99.2 - Dependence on renal dialysis SNOMED: 476798955 (3) Hypertension, uncontrolled ICD Codes: I10 - Essential (primary) hypertension SNOMED: 03454062, 46393260 (4) Symptomatic anemia ICD Codes: D64.9 - Anemia, unspecified SNOMED: 564609089 (5) Acute hyperkalemia ICD Codes: E87.5 - Hyperkalemia SNOMED: 1920125 (6) DVT (deep venous thrombosis) ICD Codes: I82.409 - Acute embolism and thrombosis of unspecified deep veins of unspecified lower extremity SNOMED: 492813203 (7) SOB (shortness of breath) ICD Codes: R06.02 - Shortness of breath SNOMED: 971359374 (8) Respiratory failure ICD Codes: J96.90 - Respiratory failure, unspecified, unspecified whether with hypoxia or hypercapnia SNOMED: 060667350 Status: unchanged Assessment/Plan ot pt diet o2 pulm tx gi/heme f/u anticoag pulm cbc bmp am dc snf if clear Subjective Constitutional: Reports: weakness Allergies: Coded Allergies: No Known Allergies (Unverified , 02/02/18) All Systems: reviewed and negative except above Subjective sleepy calm in bed Objective Last 24 Hour Vital Signs Date Time Temp Pulse Resp B/P (MAP) Pulse Ox O2 Delivery O2 Flow Rate FiO2 03/03/18 08:00 71 16 119/53 91 03/03/18 04:00 98.8 74 24 115/50 94 Venturi Mask 98.8 03/03/18 02:17 97.9 03/03/18 01:18 97.9 03/03/18 00:58 Venturi Mask 6.0 35 03/03/18 00:57 97.9 91 28 118/53 94 Venturi Mask 97.9 03/02/18 20:15 Venturi Mask 6.0 35 03/02/18 20:14 98.1 92 20 129/76 94 Venturi Mask 98.1 03/02/18 17:00 97.9 77 20 99/50 Mechanical Ventilator 4.0 97.9 03/02/18 17:00 Venturi Mask 4.0 03/02/18 16:00 98.1 74 20 134/54 92 98.1 03/02/18 14:30 Venturi Mask 4.0 03/02/18 14:30 98.1 78 20 118/55 Venturi Mask 4.0 98.1 03/02/18 12:00 97.2 73 18 121/52 97 97.2 Intake and Output 03/02/18 03/03/18 19:00 07:00 Output Total 1400 ml Balance -1400 ml Hemodialysis UF 1400 ml # Bowel Movements 1 Laboratory Tests 03/03/18 06:30: White Blood Count 10.4, Red Blood Count 2.50L, Hemoglobin 7.6L, Hematocrit 23.0L , Mean Corpuscular Volume 92, Mean Corpuscular Hemoglobin 30.3, Mean Corpuscular Hemoglobin Concent 33.0, Red Cell Distribution Width 16.6H, Platelet Count 90L, Mean Platelet Volume 8.3, Neutrophils (%) (Auto) , Lymphocytes (%) (Auto) , Monocytes (%) (Auto) , Eosinophils (%) (Auto) , Basophils (%) (Auto) , Neutrophils % (Manual) [Pending], Lymphocytes % (Manual) [Pending], Platelet Estimate [Pending], Platelet Morphology [Pending], Sodium Level 142, Potassium Level 3.5, Chloride Level 99, Carbon Dioxide Level 33H, Anion Gap 10, Blood Urea Nitrogen 69H, Creatinine 8.4H, Estimat Glomerular Filtration Rate 6.5, Glucose Level 98, Calcium Level 8.7 Height (Feet): 5 Height (Inches): 7.00 Weight (Pounds): 127 General Appearance: lethargic EENT: normal ENT inspection Neck: normal alignment Cardiovascular: normal peripheral pulses, normal rate, regular rhythm Respiratory/Chest: chest wall non-tender, lungs clear, normal breath sounds Abdomen: normal bowel sounds, non tender, soft Extremities: normal inspection Edema: no edema noted Arm (L), no edema noted Arm (R), no edema noted Leg (L), no edema noted Leg (R), no edema noted Pedal (L), no edema noted Pedal (R), no edema noted Generalized Neurologic: motor weakness Skin: normal pigmentation, warm/dry Swift,Lebron Chi-Gloria March 03, 2018 09:58
--- NOTE | 2018-03-03 11:12 | Pulmonology Progress Note ---
Assessment/Plan Assessment/Plan ASSESSMENT Probable sepsis persistent MRSA bacteremia Symptomatic anemia Anemia of chronic kidney disease Anemia due to GI bleeding Acute hypoxemic respiratory failure requiring BiPAP resolved History of GI bleeding due to AVM End-stage renal disease, on hemodialysis Acute DVT left lower extremity, superficial femoral vein Status post prior IVC filter Hypertension COPD Moderate pulmonary hypertension Moderate mitral regurgitation hepatitis C Acute diastolic CHF history of amyloidoses History of open reduction internal fixation right hip fracture Major depression with psychotic features PLAN OF CARE MS floor abx, ID follows persistent bacteremia r/o AVF infection,- bone scan on Sunday as per ID recs if negative, consider AMAURI r/o vegetation per ID may benefit form CT C/A/P rule abscess as source of infection for IV contrast clearance from nephro - likely do right before HD anemia workup consistent with anemia of chronic disease electrical assembler follows patient on Epogen transfuse as needed with goal to keep Hgb above 7 electrical assembler follows venous duplex with acute DVT left lower extremity superficial femoral vein previously already had IVC filter (placement verified by imaging) per electrical assembler anticoagulation was discontinued due to severe anemia and the fact that patient already had IVC filter CTA of the chest no evidence of pulmonary emboli supplemental oxygen and pulmonary toilet as needed, follow-up with chest x-ray BiPAP prn Track Manager follows hemodialysis with ultrafiltration as per onion topper monitor renal parameters electrolytes , correct electrolytes as needed , avoid nephrotoxins Blood pressure management per carpet installer helper, BP stable Echocardiogram with preserved ejection fraction 60-65% and right ventricular systolic pressure of 46 consistent with moderate pulmonary hypertension as well as evidence of moderate mitral regurgitation no clear evidence of vegetation GI closely follows Stool for occult blood negative x2 patient on PPI according to patient he said EGD/colonoscopy 2 months ago but could not recall location GI specialist recommended outpatient GI procedure. Pain management addressed Pain specialist follows Psychiatrist follows psychiatric medication regimen as per psychiatrist ; reality orientation and supportive therapy provided case discussed and evaluated by supervising physician Subjective Allergies: Coded Allergies: No Known Allergies (Unverified , 02/02/18) Subjective still with leucocytosis,afebrile denies chest pain short persistent bacteremia on Venturi mask Objective Last 24 Hour Vital Signs Date Time Temp Pulse Resp B/P (MAP) Pulse Ox O2 Delivery O2 Flow Rate FiO2 03/03/18 08:00 71 16 119/53 91 03/03/18 04:00 98.8 74 24 115/50 94 Venturi Mask 98.8 03/03/18 02:17 97.9 03/03/18 01:18 97.9 03/03/18 00:58 Venturi Mask 6.0 35 03/03/18 00:57 97.9 91 28 118/53 94 Venturi Mask 97.9 03/02/18 20:15 Venturi Mask 6.0 35 03/02/18 20:14 98.1 92 20 129/76 94 Venturi Mask 98.1 03/02/18 17:00 97.9 77 20 99/50 Mechanical Ventilator 4.0 97.9 03/02/18 17:00 Venturi Mask 4.0 03/02/18 16:00 98.1 74 20 134/54 92 98.1 03/02/18 14:30 Venturi Mask 4.0 03/02/18 14:30 98.1 78 20 118/55 Venturi Mask 4.0 98.1 03/02/18 12:00 97.2 73 18 121/52 97 97.2 Intake and Output 03/02/18 03/03/18 19:00 07:00 Output Total 1400 ml Balance -1400 ml Hemodialysis UF 1400 ml # Bowel Movements 1 Objective General Appearance: no acute distress HEENT: normocephalic, atraumatic, anicteric, Venturi mask 35% Respiratory/Chest: chest wall non-tender, normal breath sounds, no respiratory distress Cardiovascular: normal peripheral pulses, normal rate, RUE AV fistula + bruit /thrill, CL LIJ Abdomen: normal bowel sounds, soft, non tender Extremities: multiple tattoos BUE Neurologic/Psychiatric: awake, responsive Musculoskeletal: normal muscle bulk Microbiology Date/Time Source Procedure Growth Status 03/01/18 07:30 Blood Blood Culture - Preliminary Staphylococcus Aureus Resulted 03/01/18 07:30 Blood Blood Culture - Preliminary Staphylococcus Aureus Resulted Laboratory Tests 03/03/18 06:30: White Blood Count 10.4, Red Blood Count 2.50L, Hemoglobin 7.6L, Hematocrit 23.0L , Mean Corpuscular Volume 92, Mean Corpuscular Hemoglobin 30.3, Mean Corpuscular Hemoglobin Concent 33.0, Red Cell Distribution Width 16.6H, Platelet Count 90L, Mean Platelet Volume 8.3, Neutrophils (%) (Auto) , Lymphocytes (%) (Auto) , Monocytes (%) (Auto) , Eosinophils (%) (Auto) , Basophils (%) (Auto) , Neutrophils % (Manual) [Pending], Lymphocytes % (Manual) [Pending], Platelet Estimate [Pending], Platelet Morphology [Pending], Sodium Level 142, Potassium Level 3.5, Chloride Level 99, Carbon Dioxide Level 33H, Anion Gap 10, Blood Urea Nitrogen 69H, Creatinine 8.4H, Estimat Glomerular Filtration Rate 6.5, Glucose Level 98, Calcium Level 8.7 Current Medications Medications (Trade) Dose Ordered Sig/Blessing Route PRN Reason Start Time Stop Time Status Last Admin Dose Admin Acetaminophen (Tylenol) 500 mg 3XW PRN ORAL WITH DIALYSIS 03/01/18 09:00 03/27/18 08:59 Acetaminophen (Tylenol) 650 mg Q4H PRN RECTAL Mild Pain/Temp > 100.5 03/01/18 01:15 03/26/18 17:14 Acetaminophen (Tylenol) 650 mg Q6H PRN ORAL Mild Pain/Temp > 100.5 02/28/18 23:00 03/25/18 10:59 03/01/18 03:47 Chlorhexidine Gluconate (Miriam-Hex 2%) 1 applic DAILY@2000 TOPIC 03/01/18 20:00 03/28/18 19:59 03/02/18 20:54 Clonidine HCl (Catapres Tab) 0.1 mg EVERY 4 HOURS PRN ORAL FOR BP > 160. 03/01/18 01:00 03/25/18 10:44 Diphenhydramine HCl (Benadryl) 50 mg Q6H PRN ORAL Itching 02/28/18 23:00 03/25/18 10:59 03/02/18 15:11 Docusate Sodium (Colace) 100 mg THREE TIMES A DAY ORAL 03/01/18 18:00 03/31/18 17:59 03/02/18 09:11 Epoetin Alfonzo (Procrit (for ESRD on dialysis)) 10,000 units SUN-WED-SUN SUBQ 03/01/18 21:00 03/27/18 20:59 03/01/18 21:15 Haloperidol Lactate (Haldol) 5 mg Q4H PRN IM AGITATION 02/28/18 23:00 03/25/18 10:59 Iopamidol (Isovue-300 100ml) 100 ml NOW PRN INJ Radiology Procedure 03/02/18 12:30 03/04/18 23:59 Lansoprazole (Prevacid) 30 mg DAILY@0730 ORAL 03/01/18 07:30 03/31/18 07:29 03/02/18 06:47 Nicotine (Nicoderm) 1 patch Q24H TDERMAL 03/01/18 09:00 03/26/18 08:59 03/02/18 09:11 Oxycodone/ Acetaminophen (Percocet 5-325) 1 tab Q4H PRN ORAL Severe Pain (Pain Scale 7-10) 03/01/18 01:30 03/07/18 09:29 03/03/18 01:18 Prochlorperazine (Compazine) 10 mg Q6H PRN IVP Nausea & Vomiting 02/28/18 23:00 03/25/18 10:59 Quetiapine Fumarate (SEROquel) 25 mg QHS ORAL 03/01/18 21:00 03/25/18 20:59 03/02/18 20:54 Sevelamer Carbonate (Renvela) 800 mg TID@0730,1130,1730 ORAL 03/02/18 07:30 04/01/18 07:29 03/02/18 12:10 Vancomycin HCl (Vanco rx to dose) 1 ea DAILY PRN MISC Per rx protocol 03/02/18 11:00 04/01/18 10:59 Saida Vaz NP March 03, 2018 11:12
[2018-03-03] MEDS ORDERED: Albuterol/Ipratropium 3ml neb HHN PRN (11:15)
--- NOTE | 2018-03-03 12:23 | General Progress Note ---
Assessment/Plan Assessment/Plan IMPRESSION/RECS: #. Acute deep venous thrombosis of left lower extremity. --> Status post inferior vena cava filter placement. --> given persistent low h/h and fact that has ivc filter, coumadin has been discontinued --> hold off on further anticoagulation #. Anemia of gastrointestinal bleed. --> transfuse if hgb <7, workup has been reviewed --> Appreciate gi recs, has been seen by them --> had endoscopy but location unknown where he had it #. Thrombocytopenia baseline likely plt count of >50-100k --> likely related to splenomegaly and hepatitis C --> monitor closely for bleed if downtrends though this is less likely --> transfuse to keep plt >20k #. Anemia of kidney disease. --> On Hemodialysis by enamel pulverizer, on epo as well #. Anemia of chronic disease is s/p blood transfusion. #. End-stage renal disease, hemodialysis dependent. --> epo to continue 3x a week #. History of femoral neck fracture. On pain control. #. Acute respiratory failure. #. Hep C ++ Subjective Date patient seen: March 02, 2018 Constitutional: Denies: no symptoms, chills, diaphoresis, fever, malaise, weakness, other HEENT: Denies: no symptoms, eye pain, blurred vision, tearing, double vision, ear pain, ear discharge, nose pain, nose congestion, throat pain, throat swelling, mouth pain, mouth swelling, other Cardiovascular: Denies: no symptoms, chest pain, edema, irregular heart rate, lightheadedness, palpitations, syncope, other Respiratory: Denies: no symptoms, cough, orthopnea, shortness of breath, SOB with excertion, SOB at rest, sputum, stridor, wheezing, other Gastrointestinal/Abdominal: Denies: no symptoms, abdomen distended, abdominal pain, black stools, tarry stools, blood in stool, constipated, diarrhea, difficulty swallowing, nausea, poor appetite, poor fluid intake, rectal bleeding , vomiting, other Genitourinary: Denies: no symptoms, burning, discharge, frequency, flank pain, hematuria, incontinence, pain, urgency, other Neurologic/Psychiatric: Denies: no symptoms, anxiety, depressed, emotional problems, headache, numbness, paresthesia, pre-existing deficit, seizure, tingling, tremors, weakness, other Endocrine: Denies: no symptoms, excessive sweating, flushing, intolerance to cold, intolerance to heat, increased hunger, increased thirst, increased urine, unexplained weight gain, unexplained weight loss, other Allergies: Coded Allergies: No Known Allergies (Unverified , 02/02/18) Subjective Pt is awkae and resting in bed. No recent events, hd as per renal, cont blood on prn basis Objective Last 24 Hour Vital Signs Date Time Temp Pulse Resp B/P (MAP) Pulse Ox O2 Delivery O2 Flow Rate FiO2 03/03/18 08:00 71 16 119/53 91 03/03/18 04:00 98.8 74 24 115/50 94 Venturi Mask 98.8 03/03/18 02:17 97.9 03/03/18 01:18 97.9 03/03/18 00:58 Venturi Mask 6.0 35 03/03/18 00:57 97.9 91 28 118/53 94 Venturi Mask 97.9 03/02/18 20:15 Venturi Mask 6.0 35 03/02/18 20:14 98.1 92 20 129/76 94 Venturi Mask 98.1 03/02/18 17:00 97.9 77 20 99/50 Mechanical Ventilator 4.0 97.9 03/02/18 17:00 Venturi Mask 4.0 03/02/18 16:00 98.1 74 20 134/54 92 98.1 03/02/18 14:30 Venturi Mask 4.0 03/02/18 14:30 98.1 78 20 118/55 Venturi Mask 4.0 98.1 Intake and Output 03/02/18 03/03/18 19:00 07:00 Output Total 1400 ml Balance -1400 ml Hemodialysis UF 1400 ml # Bowel Movements 1 Laboratory Tests 03/03/18 06:30: White Blood Count 10.4, Red Blood Count 2.50L, Hemoglobin 7.6L, Hematocrit 23.0L , Mean Corpuscular Volume 92, Mean Corpuscular Hemoglobin 30.3, Mean Corpuscular Hemoglobin Concent 33.0, Red Cell Distribution Width 16.6H, Platelet Count 90L, Mean Platelet Volume 8.3, Neutrophils (%) (Auto) , Lymphocytes (%) (Auto) , Monocytes (%) (Auto) , Eosinophils (%) (Auto) , Basophils (%) (Auto) , Differential Total Cells Counted 100, Neutrophils % ( Manual) 79H, Lymphocytes % (Manual) 8L, Monocytes % (Manual) 10, Eosinophils % ( Manual) 2, Basophils % (Manual) 0, Band Neutrophils 1, Platelet Estimate DecreasedL, Platelet Morphology Normal, Polychromasia 1+, Hypochromasia 1+, Anisocytosis 1+, Sodium Level 142, Potassium Level 3.5, Chloride Level 99, Carbon Dioxide Level 33H, Anion Gap 10, Blood Urea Nitrogen 69H, Creatinine 8.4H , Estimat Glomerular Filtration Rate 6.5, Glucose Level 98, Calcium Level 8.7 Height (Feet): 5 Height (Inches): 7.00 Weight (Pounds): 127 General Appearance: alert EENT: TMs normal Neck: supple Cardiovascular: regular rhythm Respiratory/Chest: chest wall non-tender Abdomen: no mass Genitourinary/Rectal: heme negative stool Extremities: non-tender Edema: 1+ Leg (L), 1+ Leg (R) Edema: mild edema Neurologic: alert Skin: warm/dry Tristen Lewis MD March 03, 2018 12:23
--- NOTE | 2018-03-03 12:32 | Diagnostic Imaging Report ---
EXAM: CT Chest With Intravenous Contrast CLINICAL HISTORY: BACT pain, abnormal labs TECHNIQUE: Axial computed tomography images of the chest with intravenous contrast. CTDI is 56.78 mGy and DLP is 1108 mGy-cm. combined with CT abdomen and pelvis dosing One or more of the following dose reduction techniques were used: automated exposure control, adjustment of the mA and/or kV according to patient size, use of iterative reconstruction technique. COMPARISON: No relevant prior studies available. FINDINGS: Lungs: Bibasilar lung atelectasis and airspace opacities, worse in the right lower lobe, worrisome for pneumonia. Centrilobular Emphysema. Pleural space: Tiny bilateral pleural effusions. No pneumothorax. Heart: Coronary artery disease. No significant pericardial effusion. Bones/joints: Mild superior endplate compression deformities T4, T5, T6, T8, T10, T11, are age-indeterminate. Age-indeterminate vertical fracture through the mid L2 vertebral body with anterior wedge compression. No dislocation. Soft tissues: Unremarkable. Vasculature: IVC filter. Atherosclerotic vascular disease. No thoracic aortic aneurysm. Lymph nodes: Numerous small to borderline mediastinal and bilateral axillary lymph nodes. Prominent subcarinal lymph node. Spleen: Marked splenomegaly. IMPRESSION: 1. Bibasilar lung atelectasis and airspace opacities, worse in the right lower lobe, worrisome for pneumonia. 2. Tiny bilateral pleural effusions. 3. Numerous small to borderline mediastinal and bilateral axillary lymph nodes. Prominent subcarinal lymph node. 4. Emphysema. 5. Mild superior endplate compression deformities T4, T5, T6, T8, T10, T11, are age-indeterminate. 6. Age-indeterminate vertical fracture through the mid L2 vertebral body with anterior wedge compression. EXAM: CT Abdomen and Pelvis With Intravenous Contrast CLINICAL HISTORY: BACT pain, abnormal labs TECHNIQUE: Axial computed tomography images of the abdomen and pelvis with intravenous contrast. CTDI is 56.78 mGy and DLP is 1108 mGy-cm. combined CT chest dosing. One or more of the following dose reduction techniques were used: automated exposure control, adjustment of the mA and/or kV according to patient size, use of iterative reconstruction technique. COMPARISON: No relevant prior studies available. FINDINGS: Lung bases: Unremarkable. No mass. No consolidation. ABDOMEN: Liver: Hepatomegaly. Gallbladder and bile ducts: Gallbladder absent. Mild biliary dilatation and pancreatic duct prominence may be due to sequela of cholecystectomy. Pancreas: No mass. Mild ductal dilation. Spleen: Marked splenomegaly. Adrenals: Unremarkable. No mass. Kidneys and ureters: A few small low-density lesions of the right kidney, too small to characterize. Slightly atrophic right kidney. Mild bilateral perinephric stranding, likely senescent, correlate for infection. No obstructive uropathy. Stomach and bowel: Thickening and enhancement of the small bowel may be enteritis. 5.7 cm fecal distended rectum, May be fecal impaction. Thickened enhancing rectal wall may be proctitis. PELVIS: Appendix: Normal appendix. Bladder: Unremarkable. No mass. Reproductive: Unremarkable as visualized. ABDOMEN and PELVIS: Intraperitoneal space: Small free fluid in the pelvis. No free air. Bones/joints: Superior endplate Schmorl's nodule. Mild compression T11, L1. Mild wedge deformity and a vertical nonunion fracture mid vertebral body of L2 and L4 are age-indeterminate. Dynamic right femoral hip screws. No dislocation. Soft tissues: Unremarkable. Vasculature: Atherosclerotic vascular disease. Splenic varices. IVC filter. Atherosclerotic vascular disease. No abdominal aortic aneurysm. Lymph nodes: Slightly prominent bilateral inguinal lymph nodes. IMPRESSION: 1. Marked splenomegaly. 2. Hepatomegaly. 3. Gallbladder absent. Mild biliary dilatation and pancreatic duct prominence may be due to sequela of cholecystectomy. 4. Thickening and enhancement of the small bowel may be enteritis. 5.7 cm fecal distended rectum. May be fecal impaction. Thickened enhancing rectal wall may be proctitis. No bowel obstruction. 5. Mild wedge deformity and a vertical nonunion fracture mid vertebral body of L2 and L4 are age-indeterminate.
--- NOTE | 2018-03-03 15:41 | Nephrology Progress Note ---
Assessment/Plan Problem List: (1) ESRD (end stage renal disease) on dialysis (2) Acute hyperkalemia (3) Hypertension, uncontrolled (4) Left leg DVT (5) Anemia in chronic kidney disease (CKD) Assessment BP stable stop mind altering meds ESRD, on admission missed dialysis . has high K on admission has fistula right arm Sever Anemia h/o Amyloidosis COPD Plan HD next 03/04 stop BP meds- on PRN clonidine only Transfusion as needed Kayexelate as needed BP control, meds adjusted has IVC filter add phos binders Subjective ROS Limited/Unobtainable: No Constitutional: Reports: malaise Objective Objective Last 24 Hour Vital Signs Date Time Temp Pulse Resp B/P (MAP) Pulse Ox O2 Delivery O2 Flow Rate FiO2 03/03/18 08:00 71 16 119/53 91 03/03/18 04:00 98.8 74 24 115/50 94 Venturi Mask 98.8 03/03/18 02:17 97.9 03/03/18 01:18 97.9 03/03/18 00:58 Venturi Mask 6.0 35 03/03/18 00:57 97.9 91 28 118/53 94 Venturi Mask 97.9 03/02/18 20:15 Venturi Mask 6.0 35 03/02/18 20:14 98.1 92 20 129/76 94 Venturi Mask 98.1 03/02/18 17:00 97.9 77 20 99/50 Mechanical Ventilator 4.0 97.9 03/02/18 17:00 Venturi Mask 4.0 03/02/18 16:00 98.1 74 20 134/54 92 98.1 Intake and Output 03/02/18 03/03/18 19:00 07:00 Output Total 1400 ml Balance -1400 ml Hemodialysis UF 1400 ml # Bowel Movements 1 Laboratory Tests 03/03/18 06:30: White Blood Count 10.4, Red Blood Count 2.50L, Hemoglobin 7.6L, Hematocrit 23.0L , Mean Corpuscular Volume 92, Mean Corpuscular Hemoglobin 30.3, Mean Corpuscular Hemoglobin Concent 33.0, Red Cell Distribution Width 16.6H, Platelet Count 90L, Mean Platelet Volume 8.3, Neutrophils (%) (Auto) , Lymphocytes (%) (Auto) , Monocytes (%) (Auto) , Eosinophils (%) (Auto) , Basophils (%) (Auto) , Differential Total Cells Counted 100, Neutrophils % ( Manual) 79H, Lymphocytes % (Manual) 8L, Monocytes % (Manual) 10, Eosinophils % ( Manual) 2, Basophils % (Manual) 0, Band Neutrophils 1, Platelet Estimate DecreasedL, Platelet Morphology Normal, Polychromasia 1+, Hypochromasia 1+, Anisocytosis 1+, Sodium Level 142, Potassium Level 3.5, Chloride Level 99, Carbon Dioxide Level 33H, Anion Gap 10, Blood Urea Nitrogen 69H, Creatinine 8.4H , Estimat Glomerular Filtration Rate 6.5, Glucose Level 98, Calcium Level 8.7 Height (Feet): 5 Height (Inches): 7.00 Weight (Pounds): 127 General Appearance: no apparent distress Cardiovascular: normal rate Respiratory/Chest: decreased breath sounds Abdomen: distended Objective no change DALTON ROSENTHAL March 03, 2018 15:41
--- NOTE | 2018-03-03 18:44 | General Progress Note ---
Assessment/Plan Assessment/Plan IMPRESSION/RECS: #. Acute deep venous thrombosis of left lower extremity. --> Status post inferior vena cava filter placement. --> given persistent low h/h and fact that has ivc filter, coumadin has been discontinued --> hold off on further anticoagulation #. Anemia of gastrointestinal bleed. --> transfuse if hgb <7, workup has been reviewed --> Appreciate gi recs, has been seen by them --> had endoscopy but location unknown where he had it #. Thrombocytopenia baseline likely plt count of >50-100k --> likely related to splenomegaly and hepatitis C --> monitor closely for bleed if downtrends though this is less likely --> transfuse to keep plt >20k #. Anemia of kidney disease. --> On Hemodialysis by assistant property manager, on epo as well #. Anemia of chronic disease is s/p blood transfusion. #. End-stage renal disease, hemodialysis dependent. --> epo to continue 3x a week #. History of femoral neck fracture. On pain control. #. Acute respiratory failure. #. Hep C ++ Subjective Date patient seen: March 03, 2018 Hematologic/Lymphatic: Reports: no symptoms Allergies: Coded Allergies: No Known Allergies (Unverified , 02/02/18) All Systems: reviewed and negative except above Subjective Patient is seen asleep in bed. No recent events, hd as per renal, cont blood on prn basis Objective Last 24 Hour Vital Signs Date Time Temp Pulse Resp B/P (MAP) Pulse Ox O2 Delivery O2 Flow Rate FiO2 03/03/18 17:50 98.2 82 18 128/62 96 98.2 03/03/18 16:00 98.1 75 20 133/54 97 Venturi Mask 6.0 35 98.1 03/03/18 08:00 71 16 119/53 91 03/03/18 04:00 98.8 74 24 115/50 94 Venturi Mask 98.8 03/03/18 02:17 97.9 03/03/18 01:18 97.9 03/03/18 00:58 Venturi Mask 6.0 35 03/03/18 00:57 97.9 91 28 118/53 94 Venturi Mask 97.9 03/02/18 20:15 Venturi Mask 6.0 35 03/02/18 20:14 98.1 92 20 129/76 94 Venturi Mask 98.1 Intake and Output 03/02/18 03/03/18 19:00 07:00 Output Total 1400 ml Balance -1400 ml Hemodialysis UF 1400 ml # Bowel Movements 1 Laboratory Tests 03/03/18 06:30: White Blood Count 10.4, Red Blood Count 2.50L, Hemoglobin 7.6L, Hematocrit 23.0L , Mean Corpuscular Volume 92, Mean Corpuscular Hemoglobin 30.3, Mean Corpuscular Hemoglobin Concent 33.0, Red Cell Distribution Width 16.6H, Platelet Count 90L, Mean Platelet Volume 8.3, Neutrophils (%) (Auto) , Lymphocytes (%) (Auto) , Monocytes (%) (Auto) , Eosinophils (%) (Auto) , Basophils (%) (Auto) , Differential Total Cells Counted 100, Neutrophils % ( Manual) 79H, Lymphocytes % (Manual) 8L, Monocytes % (Manual) 10, Eosinophils % ( Manual) 2, Basophils % (Manual) 0, Band Neutrophils 1, Platelet Estimate DecreasedL, Platelet Morphology Normal, Polychromasia 1+, Hypochromasia 1+, Anisocytosis 1+, Sodium Level 142, Potassium Level 3.5, Chloride Level 99, Carbon Dioxide Level 33H, Anion Gap 10, Blood Urea Nitrogen 69H, Creatinine 8.4H , Estimat Glomerular Filtration Rate 6.5, Glucose Level 98, Calcium Level 8.7, C -Reactive Protein, Quantitative > 70.0H Height (Feet): 5 Height (Inches): 7.00 Weight (Pounds): 127 General Appearance: no apparent distress EENT: normal ENT inspection Neck: supple Cardiovascular: normal rate Respiratory/Chest: lungs clear Tristen Lewis MD March 03, 2018 18:44
[2018-03-03] MEDS: Dyna-Hex 2% Top Sol 2oz TOPIC SCH (21:16)
--- NOTE | 2018-03-03 22:58 | Cardiology Progress Note ---
Assessment/Plan Assessment/Plan no new recommendations Subjective Subjective Thsleeping, opens his eyes and reports that he feels fine, no dyspnea, no palpitations Objective Last 24 Hour Vital Signs Date Time Temp Pulse Resp B/P (MAP) Pulse Ox O2 Delivery O2 Flow Rate FiO2 03/03/18 21:20 Venturi Mask 8.0 35 03/03/18 21:20 95 Venturi Mask 8.0 35 03/03/18 20:00 98.6 82 19 100/54 90 98.6 03/03/18 19:59 98.6 03/03/18 19:00 98.2 03/03/18 18:50 76 16 119/56 03/03/18 18:20 80 18 132/61 Venturi Mask 6.0 35 03/03/18 17:50 98.2 82 18 128/62 96 98.2 03/03/18 16:00 98.1 75 20 133/54 97 Venturi Mask 6.0 35 98.1 03/03/18 08:00 71 16 119/53 91 03/03/18 04:00 98.8 74 24 115/50 94 Venturi Mask 98.8 03/03/18 01:18 97.9 03/03/18 00:58 Venturi Mask 6.0 35 03/03/18 00:57 97.9 91 28 118/53 94 Venturi Mask 97.9 General Appearance: thin EENT: PERRL/EOMI Neck: non-tender Rhythm: ST Cardiovascular: tachycardia Respiratory/Chest: crackles/rales Abdomen: non tender Intake and Output 03/02/18 03/03/18 19:00 07:00 Output Total 1400 ml Balance -1400 ml Hemodialysis UF 1400 ml # Bowel Movements 1 Laboratory Tests Test 03/03/18 06:30 White Blood Count 10.4 K/UL (4.8-10.8) Red Blood Count 2.50 M/UL (4.70-6.10) L Hemoglobin 7.6 G/DL (14.2-18.0) L Hematocrit 23.0 % (42.0-52.0) L Mean Corpuscular Volume 92 FL (80-99) Mean Corpuscular Hemoglobin 30.3 PG (27.0-31.0) Mean Corpuscular Hemoglobin Concent 33.0 G/DL (32.0-36.0) Red Cell Distribution Width 16.6 % (11.6-14.8) H Platelet Count 90 K/UL (150-450) L Mean Platelet Volume 8.3 FL (6.5-10.1) Neutrophils (%) (Auto) % (45.0-75.0) Lymphocytes (%) (Auto) % (20.0-45.0) Monocytes (%) (Auto) % (1.0-10.0) Eosinophils (%) (Auto) % (0.0-3.0) Basophils (%) (Auto) % (0.0-2.0) Differential Total Cells Counted 100 Neutrophils % (Manual) 79 % (45-75) H Lymphocytes % (Manual) 8 % (20-45) L Monocytes % (Manual) 10 % (1-10) Eosinophils % (Manual) 2 % (0-3) Basophils % (Manual) 0 % (0-2) Band Neutrophils 1 % (0-8) Platelet Estimate Decreased L Platelet Morphology Normal Polychromasia 1+ Hypochromasia 1+ Anisocytosis 1+ Sodium Level 142 MMOL/L (136-145) Potassium Level 3.5 MMOL/L (3.5-5.1) Chloride Level 99 MMOL/L (98-107) Carbon Dioxide Level 33 MMOL/L (21-32) H Anion Gap 10 mmol/L (5-15) Blood Urea Nitrogen 69 mg/dL (7-18) H Creatinine 8.4 MG/DL (0.55-1.30) H Estimat Glomerular Filtration Rate 6.5 mL/min (>60) Glucose Level 98 MG/DL (74-106) Calcium Level 8.7 MG/DL (8.5-10.1) C-Reactive Protein, Quantitative > 70.0 mg/dL (0.00-0.90) H Microbiology Date/Time Source Procedure Growth Status 03/01/18 07:30 Blood Blood Culture - Preliminary Staphylococcus Aureus Resulted 03/01/18 07:30 Blood Blood Culture - Preliminary Staphylococcus Aureus Resulted Crystal Plasencia MD March 03, 2018 22:58
--- NOTE | 2018-03-03 23:30 | Progress Note ---
DATE: 03/03/2018 SUBJECTIVE: The patient is a 63-year-old male patient with anemia and GI bleeding. The patient continues to have confusion, altered mental status, and disorganized thought process. Because of his disorganized thought process, his attending has requested daily psychiatric consultation of this patient and he is very confused and disorganized. MENTAL STATUS EXAMINATION: This is a 63-year-old male. Appearance is disheveled. Attitude, irritable, and agitated. Affect, guarded and restricted. Intellect poor. Mood is depressed and anxious. Motor activity, psychomotor agitation. Attention span is poor. Orientation x2. Speech is pressured. Thought process is disorganized and illogical. Thought content, auditory hallucinations and paranoid delusions. Insight and judgment are poor. . DIAGNOSIS: Major depressive disorder, mild, recurrent with psychotic features. PLAN: Treat him with Seroquel 25 mg at bedtime. Provided 18 to 20 minutes of supportive psychotherapy and encouraged him to interact appropriately with staff and other patients. Chart reviewed and discussed with staff. Seen and assessed at bedside . Rony Corral M.D. DR: PAM JOB#: [id number] CC:
[2018-03-04] VITALS (8 sets, daily range): BP systolic 110–126; BP diastolic 53–75
[2018-03-04] MEDS: Docusate 100mg cap ORAL SCH ×3 (08:37→17:12)
[2018-03-04 09:13] LABS: HEMATOCRIT 24.2 % (42.0-52.0); HEMOGLOBIN 7.9 G/DL (14.2-18.0); MEAN CORPUSCULAR VOLUME 93 FL (80-99); PLATELET COUNT 116 K/UL (150-450); RED BLOOD COUNT 2.59 M/UL (4.70-6.10); RED CELL DISTRIBUTION WIDTH 17.5 % (11.6-14.8); WHITE BLOOD COUNT 10.2 K/UL (4.8-10.8)
[2018-03-04 09:39] LABS: ALANINE AMINOTRANSFERASE 15 U/L (12-78); ALBUMIN 2.5 G/DL (3.4-5.0); ALBUMIN/GLOBULIN RATIO 0.5 (1.0-2.7); ALKALINE PHOSPHATASE 364 U/L (46-116); ANION GAP 11 mmol/L (5-15); ASPARTATE AMINO TRANSFERASE 15 U/L (15-37); BILIRUBIN,TOTAL 1.1 MG/DL (0.2-1.0); BLOOD UREA NITROGEN 87 mg/dL (7-18); CALCIUM 7.3 MG/DL (8.5-10.1); CARBON DIOXIDE 32 MMOL/L (21-32); CHLORIDE 95 MMOL/L (98-107); CREATININE 10.5 MG/DL (0.55-1.30); PHOSPHORUS 5.3 MG/DL (2.5-4.9); POTASSIUM 4.3 MMOL/L (3.5-5.1); SODIUM 138 MMOL/L (136-145)
--- NOTE | 2018-03-04 10:21 | Diagnostic Imaging Report ---
Indication: Headache Technique: Contiguous 5 mm thick transaxial imaging of the head obtained in a Siemens Sensation [address] scanner. Soft tissue and bone windows generated. Automatic Exposure Control was utilized. Total Dose length Product (DLP): 1481.[address] Dose Index Volume (CTDIvol): 70.38 mGy Comparison: none Findings: There is mild prominence of the ventricles, basal cisterns, and cerebral sulci consistent with atrophy. Mild, nonspecific, white matter hypoattenuation is noted throughout the brain consistent with chronic small vessel disease. There is a cystic focus in the right thalamus consistent with an old lacunar infarct. There is no midline shift, edema, acute hemorrhage, mass effect, or abnormal extra-axial fluid collections. Bones and extra osseous soft tissues are unremarkable. Impression: No acute intracranial bleed, mass effect or edema. Mild atrophy of the brain. 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 [facility] has communicated the preliminary results to the Emergency Department. Their findings are largely concordant with this report. Note: Although no contrast was given for this examination, there is evidence of systemic circulating contrast material from an earlier CT. 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
[2018-03-04 10:24] LABS: BILIRUBIN,DIRECT 0.7 MG/DL (0.0-0.3)
--- NOTE | 2018-03-04 11:12 | Nephrology Progress Note ---
Assessment/Plan Problem List: (1) ESRD (end stage renal disease) on dialysis (2) Acute hyperkalemia (3) Hypertension, uncontrolled (4) Left leg DVT (5) Anemia in chronic kidney disease (CKD) Assessment BP stable stop mind altering meds ESRD, on admission missed dialysis . has high K on admission has fistula right arm Sever Anemia h/o Amyloidosis COPD Plan HD next 03/04 stop BP meds- on PRN clonidine only Transfusion as needed Kayexelate as needed BP control, meds adjusted has IVC filter add phos binders Subjective ROS Limited/Unobtainable: No Constitutional: Reports: malaise, weakness Objective Objective Last 24 Hour Vital Signs Date Time Temp Pulse Resp B/P (MAP) Pulse Ox O2 Delivery O2 Flow Rate FiO2 03/04/18 08:01 97.9 75 20 110/55 96 Venturi Mask 6.0 35 97.9 03/04/18 04:00 97.5 75 20 114/75 96 Room Air 97.5 03/04/18 00:00 98.0 80 19 110/59 97 98.0 03/03/18 21:20 Venturi Mask 8.0 35 03/03/18 21:20 95 Venturi Mask 8.0 35 03/03/18 20:00 98.6 82 19 100/54 90 98.6 03/03/18 19:59 98.6 03/03/18 19:00 98.2 03/03/18 18:50 76 16 119/56 03/03/18 18:20 80 18 132/61 Venturi Mask 6.0 35 03/03/18 17:50 98.2 82 18 128/62 96 98.2 03/03/18 16:00 98.1 75 20 133/54 97 Venturi Mask 6.0 35 98.1 Intake and Output 03/03/18 03/04/18 19:00 07:00 Intake Total 480 ml Balance 480 ml Intake Oral 480 ml # Voids 1 # Bowel Movements 1 Laboratory Tests 03/04/18 08:50: White Blood Count 10.2, Red Blood Count 2.59L, Hemoglobin 7.9L, Hematocrit 24.2L , Mean Corpuscular Volume 93, Mean Corpuscular Hemoglobin 30.4, Mean Corpuscular Hemoglobin Concent 32.5, Red Cell Distribution Width 17.5H, Platelet Count 116L, Mean Platelet Volume 8.1, Neutrophils (%) (Auto) , Lymphocytes (%) (Auto) , Monocytes (%) (Auto) , Eosinophils (%) (Auto) , Basophils (%) (Auto) , Differential Total Cells Counted 100, Neutrophils % ( Manual) 77H, Lymphocytes % (Manual) 15L, Monocytes % (Manual) 6, Eosinophils % ( Manual) 1, Basophils % (Manual) 0, Band Neutrophils 1, Platelet Estimate DecreasedL, Platelet Morphology Normal, Polychromasia 1+, Hypochromasia 3+, Anisocytosis 1+, Spherocytes 1+, Sodium Level 138, Potassium Level 4.3, Chloride Level 95L, Carbon Dioxide Level 32, Anion Gap 11, Blood Urea Nitrogen 87H, Creatinine 10.5H, Estimat Glomerular Filtration Rate 5.0, Glucose Level 124H, Uric Acid 11.6H, Calcium Level 7.3L, Phosphorus Level 5.3H, Magnesium Level 2.6H, Total Bilirubin 1.1H, Direct Bilirubin 0.7H, Aspartate Amino Transf (AST/SGOT) 15, Alanine Aminotransferase (ALT/SGPT) 15, Alkaline Phosphatase 364H , Pro-B-Type Natriuretic Peptide 77176H, Total Protein 7.2, Albumin 2.5L, Globulin 4.7, Albumin/Globulin Ratio 0.5L Height (Feet): 5 Height (Inches): 7.00 Weight (Pounds): 126 General Appearance: no apparent distress Objective no change DALTON ROSENTHAL March 04, 2018 11:11
--- NOTE | 2018-03-04 11:15 | Diagnostic Imaging Report ---
Indication: Dyspnea Comparison: 02/25/2018 A single view chest radiograph was obtained. Findings: Interstitial opacities are present. There is mild right basal atelectasis and low lung volumes. Left jugular line is in good position unchanged. Heart size is stable. IMPRESSION: Suspect mild interstitial edema, stable. Development of mild right basal atelectasis
--- NOTE | 2018-03-04 11:16 | GI Progress Note ---
Assessment/Plan Problems: (1) Abnormal LFTs ICD Codes: R94.5 - Abnormal results of liver function studies SNOMED: 794775416 (2) Symptomatic anemia ICD Codes: D64.9 - Anemia, unspecified SNOMED: 748079128 (3) ESRD (end stage renal disease) on dialysis ICD Codes: N18.6 - End stage renal disease; Z99.2 - Dependence on renal dialysis SNOMED: 598385687 Status: unchanged Status Narrative Discussed with Dr. Matos. Assessment/Plan hx of EGD/colonoscopy 3 months ago per patient, cannot recall location. iron panel WNL OB stool negative x3 Hep C positive fu nephro recs monitor H&H, prn transfusions ppi thiamine fu labs outpatient GI procedures The patient was seen and examined at bedside and all new and available data was reviewed in the patients chart. I agree with the above findings, impression and plan. (Patient seen earlier today. Signature stamp does not reflect patient encounter time.). - Tushar Matos MD Subjective Subjective denies abdominal pain had EGD/colonoscopy x3 months Objective Last 24 Hour Vital Signs Date Time Temp Pulse Resp B/P (MAP) Pulse Ox O2 Delivery O2 Flow Rate FiO2 03/04/18 08:01 97.9 75 20 110/55 96 Venturi Mask 6.0 35 97.9 03/04/18 04:00 97.5 75 20 114/75 96 Room Air 97.5 03/04/18 00:00 98.0 80 19 110/59 97 98.0 03/03/18 21:20 Venturi Mask 8.0 35 03/03/18 21:20 95 Venturi Mask 8.0 35 03/03/18 20:00 98.6 82 19 100/54 90 98.6 03/03/18 19:59 98.6 03/03/18 19:00 98.2 03/03/18 18:50 76 16 119/56 03/03/18 18:20 80 18 132/61 Venturi Mask 6.0 35 03/03/18 17:50 98.2 82 18 128/62 96 98.2 03/03/18 16:00 98.1 75 20 133/54 97 Venturi Mask 6.0 35 98.1 Intake and Output 03/03/18 03/04/18 19:00 07:00 Intake Total 480 ml Balance 480 ml Intake Oral 480 ml # Voids 1 # Bowel Movements 1 Laboratory Tests Test 03/04/18 08:50 White Blood Count 10.2 K/UL (4.8-10.8) Red Blood Count 2.59 M/UL (4.70-6.10) L Hemoglobin 7.9 G/DL (14.2-18.0) L Hematocrit 24.2 % (42.0-52.0) L Mean Corpuscular Volume 93 FL (80-99) Mean Corpuscular Hemoglobin 30.4 PG (27.0-31.0) Mean Corpuscular Hemoglobin Concent 32.5 G/DL (32.0-36.0) Red Cell Distribution Width 17.5 % (11.6-14.8) H Platelet Count 116 K/UL (150-450) L Mean Platelet Volume 8.1 FL (6.5-10.1) Neutrophils (%) (Auto) % (45.0-75.0) Lymphocytes (%) (Auto) % (20.0-45.0) Monocytes (%) (Auto) % (1.0-10.0) Eosinophils (%) (Auto) % (0.0-3.0) Basophils (%) (Auto) % (0.0-2.0) Differential Total Cells Counted 100 Neutrophils % (Manual) 77 % (45-75) H Lymphocytes % (Manual) 15 % (20-45) L Monocytes % (Manual) 6 % (1-10) Eosinophils % (Manual) 1 % (0-3) Basophils % (Manual) 0 % (0-2) Band Neutrophils 1 % (0-8) Platelet Estimate Decreased L Platelet Morphology Normal Polychromasia 1+ Hypochromasia 3+ Anisocytosis 1+ Spherocytes 1+ Sodium Level 138 MMOL/L (136-145) Potassium Level 4.3 MMOL/L (3.5-5.1) Chloride Level 95 MMOL/L (98-107) L Carbon Dioxide Level 32 MMOL/L (21-32) Anion Gap 11 mmol/L (5-15) Blood Urea Nitrogen 87 mg/dL (7-18) H Creatinine 10.5 MG/DL (0.55-1.30) H Estimat Glomerular Filtration Rate 5.0 mL/min (>60) Glucose Level 124 MG/DL (74-106) H Uric Acid 11.6 MG/DL (2.6-7.2) H Calcium Level 7.3 MG/DL (8.5-10.1) L Phosphorus Level 5.3 MG/DL (2.5-4.9) H Magnesium Level 2.6 MG/DL (1.8-2.4) H Total Bilirubin 1.1 MG/DL (0.2-1.0) H Direct Bilirubin 0.7 MG/DL (0.0-0.3) H Aspartate Amino Transf (AST/SGOT) 15 U/L (15-37) Alanine Aminotransferase (ALT/SGPT) 15 U/L (12-78) Alkaline Phosphatase 364 U/L (46-116) H Pro-B-Type Natriuretic Peptide 07395 pg/mL (0-125) H Total Protein 7.2 G/DL (6.4-8.2) Albumin 2.5 G/DL (3.4-5.0) L Globulin 4.7 g/dL Albumin/Globulin Ratio 0.5 (1.0-2.7) L Height (Feet): 5 Height (Inches): 7.00 Weight (Pounds): 126 General Appearance: WD/WN, no apparent distress, alert, thin Cardiovascular: normal rate Respiratory/Chest: normal breath sounds, no respiratory distress Abdominal Exam: normal bowel sounds, non tender, soft Extremities: normal range of motion, non-tender Meliton Aldana NP March 04, 2018 11:16
--- NOTE | 2018-03-04 12:35 | Infectious Diseases Prog Note ---
Assessment/Plan Assessment/Plan ASSESSMENT: The patient is a 63-year-old male with, Fever, SP Persistent Bacteremia MRSA ( 02/22,13, 18 ) ( m/l 2/2 HD ) ( 03/03 )repeat Bl Cx : GPC Ro AVF infection ( erythema and swollen + ) vs endocarditis -CT chest abd/p w/ 03/02: Bibasilar lung atelectasis and airspace opacities, worse in the right lower lobe, worrisome for pneumonia. Tiny bilateral pleural effusions. Numerous small to borderline mediastinal and bilateral axillary lymph nodes. Prominent subcarinal lymph node. Emphysema. Mild superior endplate compression deformities T4, T5, T6, T8, T10, T11, are age- indeterminate. Age-indeterminate vertical fracture through the mid L2 vertebral body with anterior wedge compression. 02/26 2DEcho limited , av and mv thickening but no Veg Leukocytosis ,mild 02/06/ CT of chest [id number] : no evidence of pulmonary emboli, diffuse septal thickening, and bilateral ground glass opacities, and small bilateral pleural effusion. Neg : HIV , Hep panel gastrointestinal bleed : had endoscopy but location unknown 02/25 SP Lt IJ Anemia. End-stage renal disease, on hemodialysis. Left leg DVT. Right hip fracture, status post ORIF. History of hepatitis C Splenomegaly. Status post IVC filter placement PLAN: Switch IV vancomycin ( AB Rx d# - ) to IV Daptomycin 8mg/kg q 48hr and Ceftaroline due to persistent bacteremia -duration depend on the clinical findings / improvement - monitor CPK SP 02/26 Zyvox d# 1 ( pt now has IV Access ) -Repeat 2 sets of bcx -WBC scan -AMAURI to r.o vegetation -Sp cx Monitor CBC. Monitor BMP. Monitor blood cultures Monitor chest x-ray. Monitor vital signs care was estela RN Subjective Allergies: Coded Allergies: No Known Allergies (Unverified , 02/02/18) Subjective afebrile leukocytosis resolved persist bacteremic for bone scan Objective Vital Signs Last 24 Hour Vital Signs Date Time Temp Pulse Resp B/P (MAP) Pulse Ox O2 Delivery O2 Flow Rate FiO2 03/04/18 11:53 97.2 71 18 110/53 95 Venturi Mask 6.0 35 97.2 03/04/18 08:01 97.9 75 20 110/55 96 Venturi Mask 6.0 35 97.9 03/04/18 04:00 97.5 75 20 114/75 96 Room Air 97.5 03/04/18 00:00 98.0 80 19 110/59 97 98.0 03/03/18 21:20 Venturi Mask 8.0 35 03/03/18 21:20 95 Venturi Mask 8.0 35 03/03/18 20:00 98.6 82 19 100/54 90 98.6 03/03/18 19:59 98.6 03/03/18 19:00 98.2 03/03/18 18:50 76 16 119/56 03/03/18 18:20 80 18 132/61 Venturi Mask 6.0 35 03/03/18 17:50 98.2 82 18 128/62 96 98.2 03/03/18 16:00 98.1 75 20 133/54 97 Venturi Mask 6.0 35 98.1 Height (Feet): 5 Height (Inches): 7.00 Weight (Pounds): 126 Objective General Appearance: no acute distress HEENT: normocephalic, atraumatic, anicteric Respiratory/Chest: chest wall non-tender, normal breath sounds, no respiratory distress Cardiovascular: normal peripheral pulses, normal rate, RUE AV fistula + bruit /thrill, CL LIJ Abdomen: normal bowel sounds, soft, non tender Extremities: multiple tattoos BUE Neurologic/Psychiatric: awake, responsive Musculoskeletal: normal muscle bulk Microbiology Date/Time Source Procedure Growth Status 03/03/18 06:30 Blood Blood Culture - Preliminary Resulted 03/03/18 06:30 Blood Blood Culture - Preliminary Resulted Laboratory Tests Test 03/04/18 08:50 White Blood Count 10.2 K/UL (4.8-10.8) Red Blood Count 2.59 M/UL (4.70-6.10) L Hemoglobin 7.9 G/DL (14.2-18.0) L Hematocrit 24.2 % (42.0-52.0) L Mean Corpuscular Volume 93 FL (80-99) Mean Corpuscular Hemoglobin 30.4 PG (27.0-31.0) Mean Corpuscular Hemoglobin Concent 32.5 G/DL (32.0-36.0) Red Cell Distribution Width 17.5 % (11.6-14.8) H Platelet Count 116 K/UL (150-450) L Mean Platelet Volume 8.1 FL (6.5-10.1) Neutrophils (%) (Auto) % (45.0-75.0) Lymphocytes (%) (Auto) % (20.0-45.0) Monocytes (%) (Auto) % (1.0-10.0) Eosinophils (%) (Auto) % (0.0-3.0) Basophils (%) (Auto) % (0.0-2.0) Differential Total Cells Counted 100 Neutrophils % (Manual) 77 % (45-75) H Lymphocytes % (Manual) 15 % (20-45) L Monocytes % (Manual) 6 % (1-10) Eosinophils % (Manual) 1 % (0-3) Basophils % (Manual) 0 % (0-2) Band Neutrophils 1 % (0-8) Platelet Estimate Decreased L Platelet Morphology Normal Polychromasia 1+ Hypochromasia 3+ Anisocytosis 1+ Spherocytes 1+ Sodium Level 138 MMOL/L (136-145) Potassium Level 4.3 MMOL/L (3.5-5.1) Chloride Level 95 MMOL/L (98-107) L Carbon Dioxide Level 32 MMOL/L (21-32) Anion Gap 11 mmol/L (5-15) Blood Urea Nitrogen 87 mg/dL (7-18) H Creatinine 10.5 MG/DL (0.55-1.30) H Estimat Glomerular Filtration Rate 5.0 mL/min (>60) Glucose Level 124 MG/DL (74-106) H Uric Acid 11.6 MG/DL (2.6-7.2) H Calcium Level 7.3 MG/DL (8.5-10.1) L Phosphorus Level 5.3 MG/DL (2.5-4.9) H Magnesium Level 2.6 MG/DL (1.8-2.4) H Total Bilirubin 1.1 MG/DL (0.2-1.0) H Direct Bilirubin 0.7 MG/DL (0.0-0.3) H Aspartate Amino Transf (AST/SGOT) 15 U/L (15-37) Alanine Aminotransferase (ALT/SGPT) 15 U/L (12-78) Alkaline Phosphatase 364 U/L (46-116) H Pro-B-Type Natriuretic Peptide 03578 pg/mL (0-125) H Total Protein 7.2 G/DL (6.4-8.2) Albumin 2.5 G/DL (3.4-5.0) L Globulin 4.7 g/dL Albumin/Globulin Ratio 0.5 (1.0-2.7) L Current Medications Medications (Trade) Dose Ordered Sig/Blessing Route PRN Reason Start Time Stop Time Status Last Admin Dose Admin Acetaminophen (Tylenol) 500 mg 3XW PRN ORAL WITH DIALYSIS 03/01/18 09:00 03/27/18 08:59 Acetaminophen (Tylenol) 650 mg Q4H PRN RECTAL Mild Pain/Temp > 100.5 03/01/18 01:15 03/26/18 17:14 Acetaminophen (Tylenol) 650 mg Q6H PRN ORAL Mild Pain/Temp > 100.5 02/28/18 23:00 03/25/18 10:59 03/01/18 03:47 Albuterol/ Ipratropium (Albuterol/ Ipratropium) 3 ml Q4H PRN HHN Shortness of Breath 03/03/18 11:15 03/08/18 11:14 Chlorhexidine Gluconate (Miriam-Hex 2%) 1 applic DAILY@2000 TOPIC 03/01/18 20:00 03/28/18 19:59 03/03/18 21:16 Clonidine HCl (Catapres Tab) 0.1 mg EVERY 4 HOURS PRN ORAL FOR BP > 160. 03/01/18 01:00 03/25/18 10:44 Diphenhydramine HCl (Benadryl) 50 mg Q6H PRN ORAL Itching 02/28/18 23:00 03/25/18 10:59 03/02/18 15:11 Docusate Sodium (Colace) 100 mg THREE TIMES A DAY ORAL 03/01/18 18:00 03/31/18 17:59 03/04/18 11:57 Epoetin Alfonzo (Procrit (for ESRD on dialysis)) 10,000 units SUN-SUN-SUN SUBQ 03/01/18 21:00 03/27/18 20:59 03/01/18 21:15 Haloperidol Lactate (Haldol) 5 mg Q4H PRN IM AGITATION 02/28/18 23:00 03/25/18 10:59 Iopamidol (Isovue-300 100ml) 100 ml NOW PRN INJ Radiology Procedure 03/02/18 12:30 03/04/18 23:59 Lansoprazole (Prevacid) 30 mg DAILY@0730 ORAL 03/01/18 07:30 03/31/18 07:29 03/04/18 08:37 Nicotine (Nicoderm) 1 patch Q24H TDERMAL 03/01/18 09:00 03/26/18 08:59 03/04/18 08:38 Oxycodone/ Acetaminophen (Percocet 5-325) 1 tab Q4H PRN ORAL Severe Pain (Pain Scale 7-10) 03/01/18 01:30 03/07/18 09:29 03/03/18 19:00 Prochlorperazine (Compazine) 10 mg Q6H PRN IVP Nausea & Vomiting 02/28/18 23:00 03/25/18 10:59 Quetiapine Fumarate (SEROquel) 25 mg QHS ORAL 03/01/18 21:00 03/25/18 20:59 03/03/18 21:17 Sevelamer Carbonate (Renvela) 1,600 mg TID@0730,1130,1730 ORAL 03/04/18 11:30 04/01/18 07:29 03/04/18 11:57 Vancomycin HCl (Vanco rx to dose) 1 ea DAILY PRN MISC Per rx protocol 03/02/18 11:00 04/01/18 10:59 Latosha Contreras M.D. March 04, 2018 12:35
[2018-03-04] MEDS ORDERED: Ceftaroline 200 MG in NS 55 ML IVPB SCH (13:00)
--- NOTE | 2018-03-04 13:04 | General Progress Note ---
Assessment/Plan Status: stable Assessment/Plan Assessment and Recommendations: #. Acute deep venous thrombosis of left lower extremity. --> Status post inferior vena cava filter placement. --> given persistent low h/h and fact that has ivc filter, coumadin has been discontinued --> hold off on further anticoagulation #. Anemia of gastrointestinal bleed. --> transfuse if hgb <7, workup has been reviewed --> Appreciate gi recs, has been seen by them --> had endoscopy but location unknown where he had it #. Thrombocytopenia baseline likely plt count of >50-100k --> likely related to splenomegaly and hepatitis C --> monitor closely for bleed if downtrends though this is less likely --> transfuse to keep plt >20k #. Anemia of kidney disease. 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 Anemia of chronic disease is s/p blood transfusion. #. End-stage renal disease, hemodialysis dependent. --> epo to continue 3x a week #. History of femoral neck fracture. On pain control. #. Acute respiratory failure. #. Hep C ++ Subjective Date patient seen: March 04, 2018 Allergies: Coded Allergies: No Known Allergies (Unverified , 02/02/18) All Systems: reviewed and negative except above Subjective No overnight events reported. No s/s of acute medical distress. Objective Last 24 Hour Vital Signs Date Time Temp Pulse Resp B/P (MAP) Pulse Ox O2 Delivery O2 Flow Rate FiO2 03/04/18 11:53 97.2 71 18 110/53 95 Venturi Mask 6.0 35 97.2 03/04/18 08:01 97.9 75 20 110/55 96 Venturi Mask 6.0 35 97.9 03/04/18 04:00 97.5 75 20 114/75 96 Room Air 97.5 03/04/18 00:00 98.0 80 19 110/59 97 98.0 03/03/18 21:20 Venturi Mask 8.0 35 03/03/18 21:20 95 Venturi Mask 8.0 35 03/03/18 20:00 98.6 82 19 100/54 90 98.6 03/03/18 19:59 98.6 03/03/18 19:00 98.2 03/03/18 18:50 76 16 119/56 03/03/18 18:20 80 18 132/61 Venturi Mask 6.0 35 03/03/18 17:50 98.2 82 18 128/62 96 98.2 03/03/18 16:00 98.1 75 20 133/54 97 Venturi Mask 6.0 35 98.1 Intake and Output 03/03/18 03/04/18 19:00 07:00 Intake Total 480 ml Balance 480 ml Intake Oral 480 ml # Voids 1 # Bowel Movements 1 Laboratory Tests 03/04/18 08:50: White Blood Count 10.2, Red Blood Count 2.59L, Hemoglobin 7.9L, Hematocrit 24.2L , Mean Corpuscular Volume 93, Mean Corpuscular Hemoglobin 30.4, Mean Corpuscular Hemoglobin Concent 32.5, Red Cell Distribution Width 17.5H, Platelet Count 116L, Mean Platelet Volume 8.1, Neutrophils (%) (Auto) , Lymphocytes (%) (Auto) , Monocytes (%) (Auto) , Eosinophils (%) (Auto) , Basophils (%) (Auto) , Differential Total Cells Counted 100, Neutrophils % ( Manual) 77H, Lymphocytes % (Manual) 15L, Monocytes % (Manual) 6, Eosinophils % ( Manual) 1, Basophils % (Manual) 0, Band Neutrophils 1, Platelet Estimate DecreasedL, Platelet Morphology Normal, Polychromasia 1+, Hypochromasia 3+, Anisocytosis 1+, Spherocytes 1+, Sodium Level 138, Potassium Level 4.3, Chloride Level 95L, Carbon Dioxide Level 32, Anion Gap 11, Blood Urea Nitrogen 87H, Creatinine 10.5H, Estimat Glomerular Filtration Rate 5.0, Glucose Level 124H, Uric Acid 11.6H, Calcium Level 7.3L, Phosphorus Level 5.3H, Magnesium Level 2.6H, Total Bilirubin 1.1H, Direct Bilirubin 0.7H, Aspartate Amino Transf (AST/SGOT) 15, Alanine Aminotransferase (ALT/SGPT) 15, Alkaline Phosphatase 364H , Pro-B-Type Natriuretic Peptide [id number], Total Protein 7.2, Albumin 2.5L, Globulin 4.7, Albumin/Globulin Ratio 0.5L Height (Feet): 5 Height (Inches): 7.00 Weight (Pounds): 126 General Appearance: no apparent distress EENT: normal ENT inspection Neck: normal alignment, supple Cardiovascular: normal rate Respiratory/Chest: lungs clear Tristen Lewis MD March 04, 2018 13:04
--- NOTE | 2018-03-04 14:03 | General Progress Note ---
Assessment/Plan Problem List: (1) Abnormal laboratory test result ICD Codes: R89.9 - Unspecified abnormal finding in specimens from other organs , systems and tissues SNOMED: 008666814 (2) ESRD (end stage renal disease) on dialysis ICD Codes: N18.6 - End stage renal disease; Z99.2 - Dependence on renal dialysis SNOMED: 265095451 (3) Hypertension, uncontrolled ICD Codes: I10 - Essential (primary) hypertension SNOMED: 24400380, 16307364 (4) Symptomatic anemia ICD Codes: D64.9 - Anemia, unspecified SNOMED: 530101528 (5) Acute hyperkalemia ICD Codes: E87.5 - Hyperkalemia SNOMED: 5539603 (6) DVT (deep venous thrombosis) ICD Codes: I82.409 - Acute embolism and thrombosis of unspecified deep veins of unspecified lower extremity SNOMED: 306206778 (7) SOB (shortness of breath) ICD Codes: R06.02 - Shortness of breath SNOMED: 247014090 (8) Respiratory failure ICD Codes: J96.90 - Respiratory failure, unspecified, unspecified whether with hypoxia or hypercapnia SNOMED: 512622140 Status: unchanged Assessment/Plan ot pt diet o2 pulm tx gi/heme f/u anticoag pulm cbc bmp am dc snf if clear Subjective Constitutional: Reports: weakness Allergies: Coded Allergies: No Known Allergies (Unverified , 02/02/18) All Systems: reviewed and negative except above Subjective sleepy calm in bed Objective Last 24 Hour Vital Signs Date Time Temp Pulse Resp B/P (MAP) Pulse Ox O2 Delivery O2 Flow Rate FiO2 03/04/18 11:53 97.2 71 18 110/53 95 Venturi Mask 6.0 35 97.2 03/04/18 08:01 97.9 75 20 110/55 96 Venturi Mask 6.0 35 97.9 03/04/18 04:00 97.5 75 20 114/75 96 Room Air 97.5 03/04/18 00:00 98.0 80 19 110/59 97 98.0 03/03/18 21:20 Venturi Mask 8.0 35 03/03/18 21:20 95 Venturi Mask 8.0 35 03/03/18 20:00 98.6 82 19 100/54 90 98.6 03/03/18 19:59 98.6 03/03/18 19:00 98.2 03/03/18 18:50 76 16 119/56 03/03/18 18:20 80 18 132/61 Venturi Mask 6.0 35 03/03/18 17:50 98.2 82 18 128/62 96 98.2 03/03/18 16:00 98.1 75 20 133/54 97 Venturi Mask 6.0 35 98.1 Intake and Output 03/03/18 03/04/18 19:00 07:00 Intake Total 480 ml Balance 480 ml Intake Oral 480 ml # Voids 1 # Bowel Movements 1 Laboratory Tests 03/04/18 08:50: White Blood Count 10.2, Red Blood Count 2.59L, Hemoglobin 7.9L, Hematocrit 24.2L , Mean Corpuscular Volume 93, Mean Corpuscular Hemoglobin 30.4, Mean Corpuscular Hemoglobin Concent 32.5, Red Cell Distribution Width 17.5H, Platelet Count 116L, Mean Platelet Volume 8.1, Neutrophils (%) (Auto) , Lymphocytes (%) (Auto) , Monocytes (%) (Auto) , Eosinophils (%) (Auto) , Basophils (%) (Auto) , Differential Total Cells Counted 100, Neutrophils % ( Manual) 77H, Lymphocytes % (Manual) 15L, Monocytes % (Manual) 6, Eosinophils % ( Manual) 1, Basophils % (Manual) 0, Band Neutrophils 1, Platelet Estimate DecreasedL, Platelet Morphology Normal, Polychromasia 1+, Hypochromasia 3+, Anisocytosis 1+, Spherocytes 1+, Sodium Level 138, Potassium Level 4.3, Chloride Level 95L, Carbon Dioxide Level 32, Anion Gap 11, Blood Urea Nitrogen 87H, Creatinine 10.5H, Estimat Glomerular Filtration Rate 5.0, Glucose Level 124H, Uric Acid 11.6H, Calcium Level 7.3L, Phosphorus Level 5.3H, Magnesium Level 2.6H, Total Bilirubin 1.1H, Direct Bilirubin 0.7H, Aspartate Amino Transf (AST/SGOT) 15, Alanine Aminotransferase (ALT/SGPT) 15, Alkaline Phosphatase 364H , Pro-B-Type Natriuretic Peptide 39523N, Total Protein 7.2, Albumin 2.5L, Globulin 4.7, Albumin/Globulin Ratio 0.5L Height (Feet): 5 Height (Inches): 7.00 Weight (Pounds): 126 General Appearance: lethargic EENT: normal ENT inspection Neck: normal alignment Cardiovascular: normal peripheral pulses, normal rate, regular rhythm Respiratory/Chest: chest wall non-tender, decreased breath sounds Abdomen: normal bowel sounds, non tender, soft Extremities: normal inspection Edema: no edema noted Arm (L), no edema noted Arm (R), no edema noted Leg (L), no edema noted Leg (R), no edema noted Pedal (L), no edema noted Pedal (R), no edema noted Generalized Neurologic: motor weakness Skin: normal pigmentation, warm/dry Lebron Swift DO March 04, 2018 14:03
[2018-03-04] MEDS: oxyCODONE HCL/Acetaminophen 5/325mg ORAL PRN ×2 (15:31→20:12)
--- NOTE | 2018-03-04 16:00 | Pulmonology Progress Note ---
Assessment/Plan Problems: (1) Acute respiratory failure (2) ESRF (end stage renal failure) (3) Pulmonary edema (4) DVT (deep venous thrombosis) Assessment/Plan no new complaisn on nasal cannula now HD by compliance project manager respiratory treatment titrate fio2 to sat of 92% check Hemoglobin, remains around 7 all meds reviewed Subjective ROS Limited/Unobtainable: No Constitutional: Reports: no symptoms HEENT: Repors: no symptoms Respiratory: Reports: no symptoms Allergies: Coded Allergies: No Known Allergies (Unverified , 02/02/18) Objective Last 24 Hour Vital Signs Date Time Temp Pulse Resp B/P (MAP) Pulse Ox O2 Delivery O2 Flow Rate FiO2 03/04/18 12:30 96.4 73 24 126/56 Venturi Mask 4.5 96.4 03/04/18 11:53 97.2 71 18 110/53 95 Venturi Mask 6.0 35 97.2 03/04/18 09:37 Venturi Mask 4.0 30 03/04/18 09:37 92 Venturi Mask 4.0 30 03/04/18 08:01 97.9 75 20 110/55 96 Venturi Mask 6.0 35 97.9 03/04/18 04:00 97.5 75 20 114/75 96 Room Air 97.5 03/04/18 00:00 98.0 80 19 110/59 97 98.0 03/03/18 21:20 Venturi Mask 8.0 35 03/03/18 21:20 95 Venturi Mask 8.0 35 03/03/18 20:00 98.6 82 19 100/54 90 98.6 03/03/18 19:59 98.6 03/03/18 19:00 98.2 03/03/18 18:50 76 16 119/56 03/03/18 18:20 80 18 132/61 Venturi Mask 6.0 35 03/03/18 17:50 98.2 82 18 128/62 96 98.2 03/03/18 16:00 98.1 75 20 133/54 97 Venturi Mask 6.0 35 98.1 Intake and Output 03/03/18 03/04/18 19:00 07:00 Intake Total 480 ml Balance 480 ml Intake Oral 480 ml # Voids 1 # Bowel Movements 1 Objective General Appearance: WD/WN HEENT: normocephalic, atraumatic Respiratory/Chest: chest wall non-tender, lungs clear Cardiovascular: normal peripheral pulses, normal rate, regular rhythm Abdomen: normal bowel sounds, soft, non tender, no organomegaly, non distended Extremities: no cyanosis, no clubbing, no edema Skin: no rash, no lesions Neurologic/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: 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 II-XII grossly normal Microbiology Date/Time Source Procedure Growth Status 03/03/18 06:30 Blood Blood Culture - Preliminary Resulted 03/03/18 06:30 Blood Blood Culture - Preliminary Resulted Laboratory Tests 03/04/18 08:50: White Blood Count 10.2, Red Blood Count 2.59L, Hemoglobin 7.9L, Hematocrit 24.2L , Mean Corpuscular Volume 93, Mean Corpuscular Hemoglobin 30.4, Mean Corpuscular Hemoglobin Concent 32.5, Red Cell Distribution Width 17.5H, Platelet Count 116L, Mean Platelet Volume 8.1, Neutrophils (%) (Auto) , Lymphocytes (%) (Auto) , Monocytes (%) (Auto) , Eosinophils (%) (Auto) , Basophils (%) (Auto) , Differential Total Cells Counted 100, Neutrophils % ( Manual) 77H, Lymphocytes % (Manual) 15L, Monocytes % (Manual) 6, Eosinophils % ( Manual) 1, Basophils % (Manual) 0, Band Neutrophils 1, Platelet Estimate DecreasedL, Platelet Morphology Normal, Polychromasia 1+, Hypochromasia 3+, Anisocytosis 1+, Spherocytes 1+, Sodium Level 138, Potassium Level 4.3, Chloride Level 95L, Carbon Dioxide Level 32, Anion Gap 11, Blood Urea Nitrogen 87H, Creatinine 10.5H, Estimat Glomerular Filtration Rate 5.0, Glucose Level 124H, Uric Acid 11.6H, Calcium Level 7.3L, Phosphorus Level 5.3H, Magnesium Level 2.6H, Total Bilirubin 1.1H, Direct Bilirubin 0.7H, Aspartate Amino Transf (AST/SGOT) 15, Alanine Aminotransferase (ALT/SGPT) 15, Alkaline Phosphatase 364H , Pro-B-Type Natriuretic Peptide 86425U, Total Protein 7.2, Albumin 2.5L, Globulin 4.7, Albumin/Globulin Ratio 0.5L Current Medications Medications (Trade) Dose Ordered Sig/Blessing Route PRN Reason Start Time Stop Time Status Last Admin Dose Admin Acetaminophen (Tylenol) 500 mg 3XW PRN ORAL WITH DIALYSIS 03/01/18 09:00 03/27/18 08:59 Acetaminophen (Tylenol) 650 mg Q4H PRN RECTAL Mild Pain/Temp > 100.5 03/01/18 01:15 03/26/18 17:14 Acetaminophen (Tylenol) 650 mg Q6H PRN ORAL Mild Pain/Temp > 100.5 02/28/18 23:00 03/25/18 10:59 03/01/18 03:47 Albuterol/ Ipratropium (Albuterol/ Ipratropium) 3 ml Q4H PRN HHN Shortness of Breath 03/03/18 11:15 03/08/18 11:14 Ceftaroline Fosamil 200 mg/ Sodium Chloride 55 ml @ 55 mls/hr EVERY 12 HOURS IVPB 03/04/18 13:00 03/11/18 12:59 Chlorhexidine Gluconate (Miriam-Hex 2%) 1 applic DAILY@2000 TOPIC 03/01/18 20:00 03/28/18 19:59 03/03/18 21:16 Clonidine HCl (Catapres Tab) 0.1 mg EVERY 4 HOURS PRN ORAL FOR BP > 160. 03/01/18 01:00 03/25/18 10:44 Daptomycin 450 mg/ Sodium Chloride 110 ml @ 200 mls/hr Q48H IV 03/04/18 14:00 03/11/18 13:59 Diphenhydramine HCl (Benadryl) 50 mg Q6H PRN ORAL Itching 02/28/18 23:00 03/25/18 10:59 03/02/18 15:11 Docusate Sodium (Colace) 100 mg THREE TIMES A DAY ORAL 03/01/18 18:00 03/31/18 17:59 03/04/18 11:57 Epoetin Alfonzo (Procrit (for ESRD on dialysis)) 10,000 units SUN-SUN-SUN SUBQ 03/01/18 21:00 03/27/18 20:59 03/01/18 21:15 Haloperidol Lactate (Haldol) 5 mg Q4H PRN IM AGITATION 02/28/18 23:00 03/25/18 10:59 Iopamidol (Isovue-300 100ml) 100 ml NOW PRN INJ Radiology Procedure 03/02/18 12:30 03/04/18 23:59 Lansoprazole (Prevacid) 30 mg DAILY@0730 ORAL 03/01/18 07:30 03/31/18 07:29 03/04/18 08:37 Nicotine (Nicoderm) 1 patch Q24H TDERMAL 03/01/18 09:00 03/26/18 08:59 03/04/18 08:38 Oxycodone/ Acetaminophen (Percocet 5-325) 1 tab Q4H PRN ORAL Severe Pain (Pain Scale 7-10) 03/01/18 01:30 03/07/18 09:29 03/04/18 15:31 Prochlorperazine (Compazine) 10 mg Q6H PRN IVP Nausea & Vomiting 02/28/18 23:00 03/25/18 10:59 Quetiapine Fumarate (SEROquel) 25 mg QHS ORAL 03/01/18 21:00 03/25/18 20:59 03/03/18 21:17 Sevelamer Carbonate (Renvela) 1,600 mg TID@0730,1130,1730 ORAL 03/04/18 11:30 04/01/18 07:29 03/04/18 11:57 Clement Mcleod MD March 04, 2018 16:00
--- NOTE | 2018-03-04 16:45 | Progress Note ---
DATE: 03/04/2018 SUBJECTIVE: This is a 63-year-old male came in with anemia and GI bleeding. The patient continues to have some confusion, disorganized thought process. He has auditory hallucinations, paranoid delusions, mood lability worsened by the stress of his medical illness. That is why, his attending has requested daily psychiatric consultation for this patient to be seen. MENTAL STATUS EXAMINATION: This patient is a 63-year-old male. Appearance is disheveled. Attitude is irritable and agitated. Affect guarded and restricted. Intellect poor. Mood depressed and anxious. Motor activity, psychomotor agitation. Attention span is poor. Orientation x2. Speech is pressured. Thought process, disorganized and illogical. Thought content, auditory hallucinations and paranoid delusions. Insight and judgment is poor. DIAGNOSES: 1. Paranoid schizophrenia, acute. 2. Major depressive disorder with psychotic features. PLAN: Treat this patient with Seroquel 25 mg nightly. Provide 18 to 20 minutes of supportive psychotherapy. Chart reviewed and discussed with staff. Rony Corral M.D. DR: EDDY JOB#: [id number] CC:
[2018-03-04] MEDS: DAPTOMYCIN IV SCH (17:22)
[2018-03-04] MEDS: NS IV SCH (17:22)
[2018-03-04] MEDS: Ceftaroline 200 MG in NS 55 ML IVPB SCH (18:37)
[2018-03-04] MEDS: Dyna-Hex 2% Top Sol 2oz TOPIC SCH (20:09)
[2018-03-04] MEDS: Epogen (for ESRD on dialysis) SUBQ SCH (20:10)
--- NOTE | 2018-03-04 21:26 | Cardiology Progress Note ---
Assessment/Plan Assessment/Plan 1. Hypertension. 2. End-stage renal disease, on hemodialysis. 3. Anemia. 4. History of GI bleed secondary to AVMs. 5. Acute deep venous thrombosis, left leg. 6. History of femoral neck fracture 7. acute diastolic heart failure 8. persistent bacteremai felt to be due to dialysis catheter 9. thrombocytopenia imoproved ctpa neg for pe has ivc filter inplace already dilaysis / uf tele noted sinus had recurrent anemia now s/p prbc tx av and mv thickening noted on repeat echo persistent bacteremia is of concern pt awake mentation improved id input noted regarding persitent bacteremia awiat wbc scan if neg will need new will need clearance prior to new Subjective Cardiovascular: Denies: chest pain, lightheadedness, palpitations Respiratory: Denies: shortness of breath Gastrointestinal/Abdominal: Denies: abdominal pain Genitourinary: Denies: burning Subjective confused adn agitated earlier now better, has sitter Objective Last 24 Hour Vital Signs Date Time Temp Pulse Resp B/P (MAP) Pulse Ox O2 Delivery O2 Flow Rate FiO2 03/04/18 19:46 97.7 75 19 121/63 94 97.7 03/04/18 16:39 Venturi Mask 4.5 03/04/18 16:37 96.8 76 20 112/58 Venturi Mask 4.5 96.8 03/04/18 16:10 97.2 72 18 115/59 98 Venturi Mask 6.0 30 97.2 03/04/18 12:30 96.4 73 24 126/56 Venturi Mask 4.5 96.4 03/04/18 11:53 97.2 71 18 110/53 95 Venturi Mask 6.0 35 97.2 03/04/18 09:37 Venturi Mask 4.0 30 03/04/18 09:37 92 Venturi Mask 4.0 30 03/04/18 08:01 97.9 75 20 110/55 96 Venturi Mask 6.0 35 97.9 03/04/18 04:00 97.5 75 20 114/75 96 Room Air 97.5 03/04/18 00:00 98.0 80 19 110/59 97 98.0 General Appearance: no apparent distress Neck: supple Cardiovascular: normal rate, regular rhythm Respiratory/Chest: lungs clear Abdomen: normal bowel sounds, non tender, soft Extremities: no swelling Intake and Output 03/03/18 03/04/18 19:00 07:00 Intake Total 480 ml Balance 480 ml Intake Oral 480 ml # Voids 1 # Bowel Movements 1 Laboratory Tests Test 03/04/18 08:50 White Blood Count 10.2 K/UL (4.8-10.8) Red Blood Count 2.59 M/UL (4.70-6.10) L Hemoglobin 7.9 G/DL (14.2-18.0) L Hematocrit 24.2 % (42.0-52.0) L Mean Corpuscular Volume 93 FL (80-99) Mean Corpuscular Hemoglobin 30.4 PG (27.0-31.0) Mean Corpuscular Hemoglobin Concent 32.5 G/DL (32.0-36.0) Red Cell Distribution Width 17.5 % (11.6-14.8) H Platelet Count 116 K/UL (150-450) L Mean Platelet Volume 8.1 FL (6.5-10.1) Neutrophils (%) (Auto) % (45.0-75.0) Lymphocytes (%) (Auto) % (20.0-45.0) Monocytes (%) (Auto) % (1.0-10.0) Eosinophils (%) (Auto) % (0.0-3.0) Basophils (%) (Auto) % (0.0-2.0) Differential Total Cells Counted 100 Neutrophils % (Manual) 77 % (45-75) H Lymphocytes % (Manual) 15 % (20-45) L Monocytes % (Manual) 6 % (1-10) Eosinophils % (Manual) 1 % (0-3) Basophils % (Manual) 0 % (0-2) Band Neutrophils 1 % (0-8) Platelet Estimate Decreased L Platelet Morphology Normal Polychromasia 1+ Hypochromasia 3+ Anisocytosis 1+ Spherocytes 1+ Sodium Level 138 MMOL/L (136-145) Potassium Level 4.3 MMOL/L (3.5-5.1) Chloride Level 95 MMOL/L (98-107) L Carbon Dioxide Level 32 MMOL/L (21-32) Anion Gap 11 mmol/L (5-15) Blood Urea Nitrogen 87 mg/dL (7-18) H Creatinine 10.5 MG/DL (0.55-1.30) H Estimat Glomerular Filtration Rate 5.0 mL/min (>60) Glucose Level 124 MG/DL (74-106) H Uric Acid 11.6 MG/DL (2.6-7.2) H Calcium Level 7.3 MG/DL (8.5-10.1) L Phosphorus Level 5.3 MG/DL (2.5-4.9) H Magnesium Level 2.6 MG/DL (1.8-2.4) H Total Bilirubin 1.1 MG/DL (0.2-1.0) H Direct Bilirubin 0.7 MG/DL (0.0-0.3) H Aspartate Amino Transf (AST/SGOT) 15 U/L (15-37) Alanine Aminotransferase (ALT/SGPT) 15 U/L (12-78) Alkaline Phosphatase 364 U/L (46-116) H Pro-B-Type Natriuretic Peptide 63323 pg/mL (0-125) H Total Protein 7.2 G/DL (6.4-8.2) Albumin 2.5 G/DL (3.4-5.0) L Globulin 4.7 g/dL Albumin/Globulin Ratio 0.5 (1.0-2.7) L Microbiology Date/Time Source Procedure Growth Status 03/03/18 06:30 Blood Blood Culture - Preliminary Resulted 03/03/18 06:30 Blood Blood Culture - Preliminary Resulted Jony Becker MD March 04, 2018 21:26
[2018-03-05] VITALS (7 sets, daily range): BP systolic 99–147; BP diastolic 50–84
[2018-03-05] MEDS: oxyCODONE HCL/Acetaminophen 5/325mg ORAL PRN ×4 (03:17→22:54)
[2018-03-05 06:14] LABS: HEMOGLOBIN 7.5 G/DL (14.2-18.0); MEAN CORPUSCULAR VOLUME 94 FL (80-99); PLATELET COUNT 117 K/UL (150-450); RED BLOOD COUNT 2.45 M/UL (4.70-6.10); RED CELL DISTRIBUTION WIDTH 18.2 % (11.6-14.8); WHITE BLOOD COUNT 9.2 K/UL (4.8-10.8)
[2018-03-05 06:38] LABS: ANION GAP 10 mmol/L (5-15); BLOOD UREA NITROGEN 57 mg/dL (7-18); CALCIUM 8.3 MG/DL (8.5-10.1); CARBON DIOXIDE 34 MMOL/L (21-32); CHLORIDE 97 MMOL/L (98-107); CREATININE 7.9 MG/DL (0.55-1.30); PHOSPHORUS 4.8 MG/DL (2.5-4.9); POTASSIUM 3.2 MMOL/L (3.5-5.1); SODIUM 140 MMOL/L (136-145)
[2018-03-05 06:57] LABS: CREATINE KINASE 38 U/L (26-308)
--- NOTE | 2018-03-05 08:46 | General Progress Note ---
Assessment/Plan Assessment/Plan # Numerous small to borderline mediastinal and bilateral axillary lymph nodes. Prominent subcarinal lymph node. Meet pathological size. Imaging has been reviewed for the last two CAT scans --> further recs per pulm in regards to management, reimaging in future, versus more interventional such as biopsy --> appreciate pulm/cc recommendations #. Acute deep venous thrombosis of left lower extremity. --> Status post inferior vena cava filter placement. --> given persistent low h/h and fact that has ivc filter, coumadin has been discontinued --> hold off on further anticoagulation given low h/h #. Anemia of gastrointestinal bleed. --> transfuse if hgb <7, workup has been reviewed --> Appreciate gi recs, has been seen by them --> had endoscopy but location unknown where he had it #. Thrombocytopenia baseline likely plt count of >50-100k --> likely related to splenomegaly and hepatitis C --> monitor closely for bleed if downtrends though this is less likely --> transfuse to keep plt >20k #. Anemia of kidney disease. --> On Hemodialysis by security installer, on epo as well #. Anemia of chronic disease is s/p blood transfusion. #. End-stage renal disease, hemodialysis dependent. --> epo to continue 3x a week #. Leukocytosis -- management per ID --> WBC scan pending as well is neg, then AMAURI #. History of femoral neck fracture. On pain control. #. Acute respiratory failure. #. Hep C ++ Subjective Constitutional: Denies: no symptoms, chills, diaphoresis, fever, malaise, weakness, other HEENT: Denies: no symptoms, eye pain, blurred vision, tearing, double vision, ear pain, ear discharge, nose pain, nose congestion, throat pain, throat swelling, mouth pain, mouth swelling, other Cardiovascular: Denies: no symptoms, chest pain, edema, irregular heart rate, lightheadedness, palpitations, syncope, other Respiratory: Denies: no symptoms, cough, orthopnea, shortness of breath, SOB with excertion, SOB at rest, sputum, stridor, wheezing, other Gastrointestinal/Abdominal: Denies: no symptoms, abdomen distended, abdominal pain, black stools, tarry stools, blood in stool, constipated, diarrhea, difficulty swallowing, nausea, poor appetite, poor fluid intake, rectal bleeding , vomiting, other Genitourinary: Denies: no symptoms, burning, discharge, frequency, flank pain, hematuria, incontinence, pain, urgency, other Neurologic/Psychiatric: Denies: no symptoms, anxiety, depressed, emotional problems, headache, numbness, paresthesia, pre-existing deficit, seizure, tingling, tremors, weakness, other Endocrine: Denies: no symptoms, excessive sweating, flushing, intolerance to cold, intolerance to heat, increased hunger, increased thirst, increased urine, unexplained weight gain, unexplained weight loss, other Hematologic/Lymphatic: Denies: no symptoms, anemia, easy bleeding, easy bruising, other Allergies: Coded Allergies: No Known Allergies (Unverified , 02/02/18) Subjective No overnight events reported. No bleeding is noted Objective Last 24 Hour Vital Signs Date Time Temp Pulse Resp B/P (MAP) Pulse Ox O2 Delivery O2 Flow Rate FiO2 03/05/18 07:50 97.5 75 16 99/51 95 97.5 03/05/18 04:00 98.2 82 20 114/50 90 98.2 03/05/18 00:00 98.2 86 22 100/53 92 98.2 03/04/18 19:46 97.7 75 19 121/63 94 97.7 03/04/18 16:39 Venturi Mask 4.5 03/04/18 16:37 96.8 76 20 112/58 Venturi Mask 4.5 96.8 03/04/18 16:10 97.2 72 18 115/59 98 Venturi Mask 6.0 30 97.2 03/04/18 12:30 96.4 73 24 126/56 Venturi Mask 4.5 96.4 03/04/18 11:53 97.2 71 18 110/53 95 Venturi Mask 6.0 35 97.2 03/04/18 09:37 Venturi Mask 4.0 30 03/04/18 09:37 92 Venturi Mask 4.0 30 Intake and Output 03/04/18 03/05/18 19:00 07:00 Intake Total 765 ml 50 ml Output Total 1800 ml Balance -1035 ml 50 ml Intake Oral 600 ml 50 ml IV Total 165 ml Hemodialysis UF 1800 ml Laboratory Tests 03/04/18 08:50: White Blood Count 10.2, Red Blood Count 2.59L, Hemoglobin 7.9L, Hematocrit 24.2L , Mean Corpuscular Volume 93, Mean Corpuscular Hemoglobin 30.4, Mean Corpuscular Hemoglobin Concent 32.5, Red Cell Distribution Width 17.5H, Platelet Count 116L, Mean Platelet Volume 8.1, Neutrophils (%) (Auto) , Lymphocytes (%) (Auto) , Monocytes (%) (Auto) , Eosinophils (%) (Auto) , Basophils (%) (Auto) , Differential Total Cells Counted 100, Neutrophils % ( Manual) 77H, Lymphocytes % (Manual) 15L, Monocytes % (Manual) 6, Eosinophils % ( Manual) 1, Basophils % (Manual) 0, Band Neutrophils 1, Platelet Estimate DecreasedL, Platelet Morphology Normal, Polychromasia 1+, Hypochromasia 3+, Anisocytosis 1+, Spherocytes 1+, Sodium Level 138, Potassium Level 4.3, Chloride Level 95L, Carbon Dioxide Level 32, Anion Gap 11, Blood Urea Nitrogen 87H, Creatinine 10.5H, Estimat Glomerular Filtration Rate 5.0, Glucose Level 124H, Uric Acid 11.6H, Calcium Level 7.3L, Phosphorus Level 5.3H, Magnesium Level 2.6H, Total Bilirubin 1.1H, Direct Bilirubin 0.7H, Aspartate Amino Transf (AST/SGOT) 15, Alanine Aminotransferase (ALT/SGPT) 15, Alkaline Phosphatase 364H , Pro-B-Type Natriuretic Peptide 32422A, Total Protein 7.2, Albumin 2.5L, Globulin 4.7, Albumin/Globulin Ratio 0.5L 03/05/18 03:30: White Blood Count 9.2, Red Blood Count 2.45L, Hemoglobin 7.5L, Hematocrit 23.0L , Mean Corpuscular Volume 94, Mean Corpuscular Hemoglobin 30.7, Mean Corpuscular Hemoglobin Concent 32.6, Red Cell Distribution Width 18.2H, Platelet Count 117L, Mean Platelet Volume 8.3, Neutrophils (%) (Auto) , Lymphocytes (%) (Auto) , Monocytes (%) (Auto) , Eosinophils (%) (Auto) , Basophils (%) (Auto) , Neutrophils % (Manual) [Pending], Lymphocytes % (Manual) [Pending], Platelet Estimate [Pending], Platelet Morphology [Pending], Sodium Level 140, Potassium Level 3.2L, Chloride Level 97L, Carbon Dioxide Level 34H, Anion Gap 10, Blood Urea Nitrogen 57H, Creatinine 7.9H, Estimat Glomerular Filtration Rate 6.9, Glucose Level 102, Calcium Level 8.3L, Phosphorus Level 4.8 , Magnesium Level 2.3, Total Creatine Kinase 38 Height (Feet): 5 Height (Inches): 7.00 Weight (Pounds): 126 General Appearance: alert EENT: TMs normal Neck: normal alignment Cardiovascular: regular rhythm Respiratory/Chest: lungs clear Abdomen: non tender Extremities: non-tender Edema: 1+ Leg (L), 1+ Leg (R) Edema: mild edema Neurologic: alert Skin: warm/dry Tristen Lewis MD March 05, 2018 08:46
--- NOTE | 2018-03-05 09:00 | Progress Note ---
DATE: 03/05/2018 SUBJECTIVE: This is a 63-year-old patient with anemia and GI bleeding. The patient continues to have some confusion, disorganized, mood lability, and no logical plan for his own self care. Feelings of helplessness, hopelessness, , but because of this medical illness, . MENTAL STATUS EXAMINATION: This is a 63-year-old male. Appearance is disheveled. Attitude is irritable and agitated. Affect guarded and restricted. Intellect poor. Mood, depressed and anxious. Motor activity, psychomotor agitation. Attention span is poor. Orientation x2. Speech is pressured. Thought process, disorganized and illogical. Thought content, auditory hallucinations and paranoid delusions. Insight and judgment is poor. DIAGNOSIS: Major depression with psychotic features. PLAN: Treat this patient with Seroquel 25 mg at bedtime. Provide 18 to 20 minutes of supportive psychotherapy. Encouraged to interact appropriately with staff and other patients. Chart reviewed and discussed with staff. Rony Corral M.D. DR: MICHELLE JOB#: [id number] CC:
[2018-03-05] MEDS: Ceftaroline 200 MG in NS 55 ML IVPB SCH ×2 (10:21→22:11)
[2018-03-05] MEDS: Docusate 100mg cap ORAL SCH ×4 (10:22→17:32)
--- NOTE | 2018-03-05 10:48 | Infectious Diseases Prog Note ---
Assessment/Plan Assessment/Plan ASSESSMENT: The patient is a 63-year-old male with, Fever, SP Persistent Bacteremia MRSA ( 02/22,13, 18 ) ( m/l 2/2 HD ) ( 03/03 )repeat Bl Cx : S. areus, Bcx 03/04 p Ro AVF infection ( erythema and swollen + ) vs endocarditis; r/o seeding hip prosthetic material -CT chest abd/p w/ 03/02: Bibasilar lung atelectasis and airspace opacities, worse in the right lower lobe, worrisome for pneumonia. Tiny bilateral pleural effusions. Numerous small to borderline mediastinal and bilateral axillary lymph nodes. Prominent subcarinal lymph node. Emphysema. Mild superior endplate compression deformities T4, T5, T6, T8, T10, T11, are age- indeterminate. Age-indeterminate vertical fracture through the mid L2 vertebral body with anterior wedge compression. 02/26 2DEcho limited , av and mv thickening but no Veg Leukocytosis ,resolvbed 02/06/ CT of chest : no evidence of pulmonary emboli, diffuse septal thickening, and bilateral ground glass opacities, and small bilateral pleural effusion. Neg : HIV , Hep panel gastrointestinal bleed : had endoscopy but location unknown 02/25 SP Lt IJ Anemia. End-stage renal disease, on hemodialysis. Left leg DVT. Right hip fracture, status post ORIF. History of hepatitis C Splenomegaly. Status post IVC filter placement PLAN: -Continue IV Daptomycin 8mg/kg q 48hr and Ceftaroline ( AB Rx d# / -42 ) due to persistent bacteremia -duration depend on the clinical findings / improvement - monitor CPK SP 03/04 IV Vancomycin #8 SP 02/26 Zyvox d# 1 ( pt now has IV Access ) -f/u Repeat 2 sets of bcx -f/u WBC scan -AMAURI to r.o vegetation -f/u Sp cx Monitor CBC. Monitor BMP. Monitor blood cultures Monitor chest x-ray. Monitor vital signs care was estela RN Subjective Allergies: Coded Allergies: No Known Allergies (Unverified , 02/02/18) Subjective afebrile leukocytosis resolved persist bacteremic for bone scan Objective Vital Signs Last 24 Hour Vital Signs Date Time Temp Pulse Resp B/P (MAP) Pulse Ox O2 Delivery O2 Flow Rate FiO2 03/05/18 10:22 97.5 03/05/18 07:50 97.5 75 16 99/51 95 97.5 03/05/18 04:00 98.2 82 20 114/50 90 98.2 03/05/18 00:00 98.2 86 22 100/53 92 98.2 03/04/18 19:46 97.7 75 19 121/63 94 97.7 03/04/18 16:39 Venturi Mask 4.5 03/04/18 16:37 96.8 76 20 112/58 Venturi Mask 4.5 96.8 03/04/18 16:10 97.2 72 18 115/59 98 Venturi Mask 6.0 30 97.2 03/04/18 12:30 96.4 73 24 126/56 Venturi Mask 4.5 96.4 03/04/18 11:53 97.2 71 18 110/53 95 Venturi Mask 6.0 35 97.2 Height (Feet): 5 Height (Inches): 7.00 Weight (Pounds): 126 Objective General Appearance: no acute distress HEENT: normocephalic, atraumatic, anicteric Respiratory/Chest: chest wall non-tender, normal breath sounds, no respiratory distress Cardiovascular: normal peripheral pulses, normal rate, RUE AV fistula + bruit /thrill, CL LIJ Abdomen: normal bowel sounds, soft, non tender Extremities: multiple tattoos BUE Neurologic/Psychiatric: awake, responsive Musculoskeletal: normal muscle bulk Microbiology Date/Time Source Procedure Growth Status 03/03/18 06:30 Blood Blood Culture - Preliminary Staphylococcus Aureus Resulted 03/03/18 06:30 Blood Blood Culture - Preliminary Staphylococcus Aureus Resulted 03/04/18 15:20 Arm Right Gram Stain Pending Resulted 03/04/18 15:20 Arm Right Aerobic Culture - Preliminary NO GROWTH AFTER 24 HOURS Resulted 03/04/18 15:20 Arm Right Anaerobic Culture Pending Resulted Laboratory Tests Test 03/05/18 03:30 White Blood Count 9.2 K/UL (4.8-10.8) Red Blood Count 2.45 M/UL (4.70-6.10) L Hemoglobin 7.5 G/DL (14.2-18.0) L Hematocrit 23.0 % (42.0-52.0) L Mean Corpuscular Volume 94 FL (80-99) Mean Corpuscular Hemoglobin 30.7 PG (27.0-31.0) Mean Corpuscular Hemoglobin Concent 32.6 G/DL (32.0-36.0) Red Cell Distribution Width 18.2 % (11.6-14.8) H Platelet Count 117 K/UL (150-450) L Mean Platelet Volume 8.3 FL (6.5-10.1) Neutrophils (%) (Auto) % (45.0-75.0) Lymphocytes (%) (Auto) % (20.0-45.0) Monocytes (%) (Auto) % (1.0-10.0) Eosinophils (%) (Auto) % (0.0-3.0) Basophils (%) (Auto) % (0.0-2.0) Differential Total Cells Counted 100 Neutrophils % (Manual) 78 % (45-75) H Lymphocytes % (Manual) 8 % (20-45) L Monocytes % (Manual) 9 % (1-10) Eosinophils % (Manual) 4 % (0-3) H Basophils % (Manual) 1 % (0-2) Band Neutrophils 0 % (0-8) Platelet Estimate Decreased L Platelet Morphology Normal Polychromasia 1+ Hypochromasia 3+ Poikilocytosis 1+ Anisocytosis 2+ Spherocytes 1+ Sodium Level 140 MMOL/L (136-145) Potassium Level 3.2 MMOL/L (3.5-5.1) L Chloride Level 97 MMOL/L (98-107) L Carbon Dioxide Level 34 MMOL/L (21-32) H Anion Gap 10 mmol/L (5-15) Blood Urea Nitrogen 57 mg/dL (7-18) H Creatinine 7.9 MG/DL (0.55-1.30) H Estimat Glomerular Filtration Rate 6.9 mL/min (>60) Glucose Level 102 MG/DL (74-106) Calcium Level 8.3 MG/DL (8.5-10.1) L Phosphorus Level 4.8 MG/DL (2.5-4.9) Magnesium Level 2.3 MG/DL (1.8-2.4) Total Creatine Kinase 38 U/L (26-308) Current Medications Medications (Trade) Dose Ordered Sig/Blessing Route PRN Reason Start Time Stop Time Status Last Admin Dose Admin Acetaminophen (Tylenol) 500 mg 3XW PRN ORAL WITH DIALYSIS 03/01/18 09:00 03/27/18 08:59 Acetaminophen (Tylenol) 650 mg Q4H PRN RECTAL Mild Pain/Temp > 100.5 03/01/18 01:15 03/26/18 17:14 Acetaminophen (Tylenol) 650 mg Q6H PRN ORAL Mild Pain/Temp > 100.5 02/28/18 23:00 03/25/18 10:59 03/01/18 03:47 Albuterol/ Ipratropium (Albuterol/ Ipratropium) 3 ml Q4H PRN HHN Shortness of Breath 03/03/18 11:15 03/08/18 11:14 Ceftaroline Fosamil 200 mg/ Sodium Chloride 55 ml @ 55 mls/hr EVERY 12 HOURS IVPB 03/04/18 18:00 03/11/18 17:59 03/05/18 10:21 Chlorhexidine Gluconate (Miriam-Hex 2%) 1 applic DAILY@2000 TOPIC 03/01/18 20:00 03/28/18 19:59 03/04/18 20:09 Clonidine HCl (Catapres Tab) 0.1 mg EVERY 4 HOURS PRN ORAL FOR BP > 160. 03/01/18 01:00 03/25/18 10:44 Daptomycin 450 mg/ Sodium Chloride 110 ml @ 200 mls/hr Q48H IV 03/04/18 14:00 03/11/18 13:59 03/04/18 17:22 Diphenhydramine HCl (Benadryl) 50 mg Q6H PRN ORAL Itching 02/28/18 23:00 03/25/18 10:59 03/02/18 15:11 Docusate Sodium (Colace) 100 mg THREE TIMES A DAY ORAL 03/01/18 18:00 03/31/18 17:59 03/05/18 10:22 Epoetin Alfonzo (Procrit (for ESRD on dialysis)) 10,000 units SUN-SUN-SUN SUBQ 03/01/18 21:00 03/27/18 20:59 03/04/18 20:10 Haloperidol Lactate (Haldol) 5 mg Q4H PRN IM AGITATION 02/28/18 23:00 03/25/18 10:59 Lansoprazole (Prevacid) 30 mg DAILY@0730 ORAL 03/01/18 07:30 03/31/18 07:29 03/05/18 06:35 Nicotine (Nicoderm) 1 patch Q24H TDERMAL 03/01/18 09:00 03/26/18 08:59 03/05/18 10:24 Oxycodone/ Acetaminophen (Percocet 5-325) 1 tab Q4H PRN ORAL Severe Pain (Pain Scale 7-10) 03/01/18 01:30 03/07/18 09:29 03/05/18 10:22 Prochlorperazine (Compazine) 10 mg Q6H PRN IVP Nausea & Vomiting 02/28/18 23:00 03/25/18 10:59 Quetiapine Fumarate (SEROquel) 25 mg QHS ORAL 03/01/18 21:00 03/25/18 20:59 03/04/18 20:10 Sevelamer Carbonate (Renvela) 1,600 mg TID@0730,1130,1730 ORAL 03/04/18 11:30 04/01/18 07:29 03/05/18 06:36 Latosha Contreras M.D. March 05, 2018 10:48
--- NOTE | 2018-03-05 12:25 | Cardiology Progress Note ---
Assessment/Plan Assessment/Plan 1. Hypertension. 2. End-stage renal disease, on hemodialysis. 3. Anemia. 4. History of GI bleed secondary to AVMs. 5. Acute deep venous thrombosis, left leg. 6. History of femoral neck fracture 7. acute diastolic heart failure 8. persistent bacteremai felt to be due to dialysis catheter 9. thrombocytopenia imoproved ctpa neg for pe has ivc filter inplace already dilaysis / uf tele noted sinus had recurrent anemia now s/p prbc tx av and mv thickening noted on repeat echo persistent bacteremia is of concern pt awake mentation improved id input noted regarding persitent bacteremia will need gi clearance prior to new d/w dr larsen new once gi [facility] i have d/w pt however not sure if he ahs capacity to consent Subjective Cardiovascular: Denies: chest pain, lightheadedness Respiratory: Denies: shortness of breath Gastrointestinal/Abdominal: Denies: abdominal pain Genitourinary: Denies: burning Subjective not agitated has a asitter Objective Last 24 Hour Vital Signs Date Time Temp Pulse Resp B/P (MAP) Pulse Ox O2 Delivery O2 Flow Rate FiO2 03/05/18 12:09 97.3 74 20 111/56 95 97.3 03/05/18 10:22 97.5 03/05/18 10:00 72 122/55 03/05/18 07:50 97.5 75 16 99/51 95 97.5 03/05/18 04:00 98.2 82 20 114/50 90 98.2 03/05/18 00:00 98.2 86 22 100/53 92 98.2 03/04/18 19:46 97.7 75 19 121/63 94 97.7 03/04/18 16:39 Venturi Mask 4.5 03/04/18 16:37 96.8 76 20 112/58 Venturi Mask 4.5 96.8 03/04/18 16:10 97.2 72 18 115/59 98 Venturi Mask 6.0 30 97.2 03/04/18 12:30 96.4 73 24 126/56 Venturi Mask 4.5 96.4 General Appearance: no apparent distress, alert Cardiovascular: normal rate Respiratory/Chest: lungs clear - upper Abdomen: normal bowel sounds, non tender, soft Extremities: no swelling Intake and Output 03/04/18 03/05/18 19:00 07:00 Intake Total 765 ml 50 ml Output Total 1800 ml Balance -1035 ml 50 ml Intake Oral 600 ml 50 ml IV Total 165 ml Hemodialysis UF 1800 ml Laboratory Tests Test 03/05/18 03:30 White Blood Count 9.2 K/UL (4.8-10.8) Red Blood Count 2.45 M/UL (4.70-6.10) L Hemoglobin 7.5 G/DL (14.2-18.0) L Hematocrit 23.0 % (42.0-52.0) L Mean Corpuscular Volume 94 FL (80-99) Mean Corpuscular Hemoglobin 30.7 PG (27.0-31.0) Mean Corpuscular Hemoglobin Concent 32.6 G/DL (32.0-36.0) Red Cell Distribution Width 18.2 % (11.6-14.8) H Platelet Count 117 K/UL (150-450) L Mean Platelet Volume 8.3 FL (6.5-10.1) Neutrophils (%) (Auto) % (45.0-75.0) Lymphocytes (%) (Auto) % (20.0-45.0) Monocytes (%) (Auto) % (1.0-10.0) Eosinophils (%) (Auto) % (0.0-3.0) Basophils (%) (Auto) % (0.0-2.0) Differential Total Cells Counted 100 Neutrophils % (Manual) 78 % (45-75) H Lymphocytes % (Manual) 8 % (20-45) L Monocytes % (Manual) 9 % (1-10) Eosinophils % (Manual) 4 % (0-3) H Basophils % (Manual) 1 % (0-2) Band Neutrophils 0 % (0-8) Platelet Estimate Decreased L Platelet Morphology Normal Polychromasia 1+ Hypochromasia 3+ Poikilocytosis 1+ Anisocytosis 2+ Spherocytes 1+ Sodium Level 140 MMOL/L (136-145) Potassium Level 3.2 MMOL/L (3.5-5.1) L Chloride Level 97 MMOL/L (98-107) L Carbon Dioxide Level 34 MMOL/L (21-32) H Anion Gap 10 mmol/L (5-15) Blood Urea Nitrogen 57 mg/dL (7-18) H Creatinine 7.9 MG/DL (0.55-1.30) H Estimat Glomerular Filtration Rate 6.9 mL/min (>60) Glucose Level 102 MG/DL (74-106) Calcium Level 8.3 MG/DL (8.5-10.1) L Phosphorus Level 4.8 MG/DL (2.5-4.9) Magnesium Level 2.3 MG/DL (1.8-2.4) Total Creatine Kinase 38 U/L (26-308) Microbiology Date/Time Source Procedure Growth Status 03/04/18 19:50 Blood Blood Culture - Preliminary Resulted 03/04/18 19:40 Blood Blood Culture - Preliminary Resulted 03/03/18 06:30 Blood Blood Culture - Preliminary Staphylococcus Aureus Resulted 03/03/18 06:30 Blood Blood Culture - Preliminary Staphylococcus Aureus Resulted 03/04/18 15:20 Arm Right Gram Stain - Final Resulted 03/04/18 15:20 Arm Right Aerobic Culture - Preliminary NO GROWTH AFTER 24 HOURS Resulted 03/04/18 15:20 Arm Right Anaerobic Culture Pending Resulted Jony Becker MD March 05, 2018 12:25
--- NOTE | 2018-03-05 12:35 | General Progress Note ---
Assessment/Plan Status: stable Assessment/Plan dc the sitter cont current meds not following the pt Subjective Date patient seen: March 05, 2018 Neurologic/Psychiatric: Reports: anxiety, emotional problems Allergies: Coded Allergies: No Known Allergies (Unverified , 02/02/18) Subjective per sitter and nursing staff has not come to the hospital today. The pt had a sitter for "fall" the pt is confused. Charge nurse called smokehouse operator who told us to document. the pt was calm. not attempting to come out of bed. Objective Last 24 Hour Vital Signs Date Time Temp Pulse Resp B/P (MAP) Pulse Ox O2 Delivery O2 Flow Rate FiO2 03/05/18 12:09 97.3 74 20 111/56 95 97.3 03/05/18 10:22 97.5 03/05/18 10:00 72 122/55 03/05/18 07:50 97.5 75 16 99/51 95 97.5 03/05/18 04:00 98.2 82 20 114/50 90 98.2 03/05/18 00:00 98.2 86 22 100/53 92 98.2 03/04/18 19:46 97.7 75 19 121/63 94 97.7 03/04/18 16:39 Venturi Mask 4.5 03/04/18 16:37 96.8 76 20 112/58 Venturi Mask 4.5 96.8 03/04/18 16:10 97.2 72 18 115/59 98 Venturi Mask 6.0 30 97.2 Intake and Output 03/04/18 03/05/18 19:00 07:00 Intake Total 765 ml 50 ml Output Total 1800 ml Balance -1035 ml 50 ml Intake Oral 600 ml 50 ml IV Total 165 ml Hemodialysis UF 1800 ml Laboratory Tests 03/05/18 03:30: White Blood Count 9.2, Red Blood Count 2.45L, Hemoglobin 7.5L, Hematocrit 23.0L , Mean Corpuscular Volume 94, Mean Corpuscular Hemoglobin 30.7, Mean Corpuscular Hemoglobin Concent 32.6, Red Cell Distribution Width 18.2H, Platelet Count 117L, Mean Platelet Volume 8.3, Neutrophils (%) (Auto) , Lymphocytes (%) (Auto) , Monocytes (%) (Auto) , Eosinophils (%) (Auto) , Basophils (%) (Auto) , Differential Total Cells Counted 100, Neutrophils % ( Manual) 78H, Lymphocytes % (Manual) 8L, Monocytes % (Manual) 9, Eosinophils % ( Manual) 4H, Basophils % (Manual) 1, Band Neutrophils 0, Platelet Estimate DecreasedL, Platelet Morphology Normal, Polychromasia 1+, Hypochromasia 3+, Poikilocytosis 1+, Anisocytosis 2+, Spherocytes 1+, Sodium Level 140, Potassium Level 3.2L, Chloride Level 97L, Carbon Dioxide Level 34H, Anion Gap 10, Blood Urea Nitrogen 57H, Creatinine 7.9H, Estimat Glomerular Filtration Rate 6.9, Glucose Level 102, Calcium Level 8.3L, Phosphorus Level 4.8, Magnesium Level 2.3 , Total Creatine Kinase 38 Height (Feet): 5 Height (Inches): 7.00 Weight (Pounds): 126 General Appearance: no apparent distress, confused Alpesh Del Valle M.D. March 05, 2018 12:35
--- NOTE | 2018-03-05 14:29 | General Progress Note ---
Assessment/Plan Problem List: (1) Abnormal laboratory test result ICD Codes: R89.9 - Unspecified abnormal finding in specimens from other organs , systems and tissues SNOMED: 518654380 (2) ESRD (end stage renal disease) on dialysis ICD Codes: N18.6 - End stage renal disease; Z99.2 - Dependence on renal dialysis SNOMED: 122442469 (3) Hypertension, uncontrolled ICD Codes: I10 - Essential (primary) hypertension SNOMED: 39782270, 56655097 (4) Symptomatic anemia ICD Codes: D64.9 - Anemia, unspecified SNOMED: 041309264 (5) Acute hyperkalemia ICD Codes: E87.5 - Hyperkalemia SNOMED: 2555932 (6) DVT (deep venous thrombosis) ICD Codes: I82.409 - Acute embolism and thrombosis of unspecified deep veins of unspecified lower extremity SNOMED: 496871431 (7) SOB (shortness of breath) ICD Codes: R06.02 - Shortness of breath SNOMED: 454544788 (8) Respiratory failure ICD Codes: J96.90 - Respiratory failure, unspecified, unspecified whether with hypoxia or hypercapnia SNOMED: 768775532 Status: unchanged Assessment/Plan ot pt diet o2 pulm tx gi/heme f/u anticoag pulm transfuse prn cbc bmp am dc snf if clear Subjective Constitutional: Reports: weakness Allergies: Coded Allergies: No Known Allergies (Unverified , 02/02/18) All Systems: reviewed and negative except above Subjective sleepy calm in bed Objective Last 24 Hour Vital Signs Date Time Temp Pulse Resp B/P (MAP) Pulse Ox O2 Delivery O2 Flow Rate FiO2 03/05/18 12:09 97.3 74 20 111/56 95 97.3 03/05/18 11:21 97.3 03/05/18 10:22 97.5 03/05/18 10:00 72 122/55 03/05/18 07:50 97.5 75 16 99/51 95 97.5 03/05/18 04:00 98.2 82 20 114/50 90 98.2 03/05/18 00:00 98.2 86 22 100/53 92 98.2 03/04/18 19:46 97.7 75 19 121/63 94 97.7 03/04/18 16:39 Venturi Mask 4.5 03/04/18 16:37 96.8 76 20 112/58 Venturi Mask 4.5 96.8 03/04/18 16:10 97.2 72 18 115/59 98 Venturi Mask 6.0 30 97.2 Intake and Output 03/04/18 03/05/18 19:00 07:00 Intake Total 765 ml 50 ml Output Total 1800 ml Balance -1035 ml 50 ml Intake Oral 600 ml 50 ml IV Total 165 ml Hemodialysis UF 1800 ml Laboratory Tests 03/05/18 03:30: White Blood Count 9.2, Red Blood Count 2.45L, Hemoglobin 7.5L, Hematocrit 23.0L , Mean Corpuscular Volume 94, Mean Corpuscular Hemoglobin 30.7, Mean Corpuscular Hemoglobin Concent 32.6, Red Cell Distribution Width 18.2H, Platelet Count 117L, Mean Platelet Volume 8.3, Neutrophils (%) (Auto) , Lymphocytes (%) (Auto) , Monocytes (%) (Auto) , Eosinophils (%) (Auto) , Basophils (%) (Auto) , Differential Total Cells Counted 100, Neutrophils % ( Manual) 78H, Lymphocytes % (Manual) 8L, Monocytes % (Manual) 9, Eosinophils % ( Manual) 4H, Basophils % (Manual) 1, Band Neutrophils 0, Platelet Estimate DecreasedL, Platelet Morphology Normal, Polychromasia 1+, Hypochromasia 3+, Poikilocytosis 1+, Anisocytosis 2+, Spherocytes 1+, Sodium Level 140, Potassium Level 3.2L, Chloride Level 97L, Carbon Dioxide Level 34H, Anion Gap 10, Blood Urea Nitrogen 57H, Creatinine 7.9H, Estimat Glomerular Filtration Rate 6.9, Glucose Level 102, Calcium Level 8.3L, Phosphorus Level 4.8, Magnesium Level 2.3 , Total Creatine Kinase 38 Height (Feet): 5 Height (Inches): 7.00 Weight (Pounds): 126 General Appearance: lethargic EENT: normal ENT inspection Neck: normal alignment Cardiovascular: normal peripheral pulses, normal rate, regular rhythm Respiratory/Chest: chest wall non-tender, lungs clear, normal breath sounds Abdomen: normal bowel sounds, non tender, soft Extremities: normal inspection Edema: no edema noted Arm (L), no edema noted Arm (R), no edema noted Leg (L), no edema noted Leg (R), no edema noted Pedal (L), no edema noted Pedal (R), no edema noted Generalized Neurologic: motor weakness Skin: normal pigmentation, warm/dry Lebron Swift March 05, 2018 14:29
--- NOTE | 2018-03-05 14:30 | Pulmonology Progress Note ---
Assessment/Plan Problems: (1) Acute respiratory failure (2) ESRF (end stage renal failure) (3) Pulmonary edema (4) DVT (deep venous thrombosis) Assessment/Plan no new complaisn on nasal cannula now HD by armhole baster hand respiratory treatment titrate fio2 to sat of 92% check Hemoglobin, remains around 7 all meds reviewed Subjective ROS Limited/Unobtainable: No Constitutional: Reports: no symptoms HEENT: Repors: no symptoms Respiratory: Reports: no symptoms Allergies: Coded Allergies: No Known Allergies (Unverified , 02/02/18) Objective Last 24 Hour Vital Signs Date Time Temp Pulse Resp B/P (MAP) Pulse Ox O2 Delivery O2 Flow Rate FiO2 03/05/18 12:09 97.3 74 20 111/56 95 97.3 03/05/18 11:21 97.3 03/05/18 10:22 97.5 03/05/18 10:00 72 122/55 03/05/18 07:50 97.5 75 16 99/51 95 97.5 03/05/18 04:00 98.2 82 20 114/50 90 98.2 03/05/18 00:00 98.2 86 22 100/53 92 98.2 03/04/18 19:46 97.7 75 19 121/63 94 97.7 03/04/18 16:39 Venturi Mask 4.5 03/04/18 16:37 96.8 76 20 112/58 Venturi Mask 4.5 96.8 03/04/18 16:10 97.2 72 18 115/59 98 Venturi Mask 6.0 30 97.2 Intake and Output 03/04/18 03/05/18 19:00 07:00 Intake Total 765 ml 50 ml Output Total 1800 ml Balance -1035 ml 50 ml Intake Oral 600 ml 50 ml IV Total 165 ml Hemodialysis UF 1800 ml Objective General Appearance: WD/WN HEENT: normocephalic, atraumatic Respiratory/Chest: chest wall non-tender, lungs clear Cardiovascular: normal peripheral pulses, normal rate, regular rhythm Abdomen: normal bowel sounds, soft, non tender, no organomegaly, non distended Extremities: no cyanosis, no clubbing, no edema Skin: no rash, no lesions Neurologic/Psychiatric: spike machine feeder II-XII grossly normal Microbiology Date/Time Source Procedure Growth Status 03/04/18 19:50 Blood Blood Culture - Preliminary Resulted 03/04/18 19:40 Blood Blood Culture - Preliminary Resulted 03/03/18 06:30 Blood Blood Culture - Preliminary Staphylococcus Aureus Resulted 03/03/18 06:30 Blood Blood Culture - Preliminary Staphylococcus Aureus Resulted 03/04/18 15:20 Arm Right Gram Stain - Final Resulted 03/04/18 15:20 Arm Right Aerobic Culture - Preliminary NO GROWTH AFTER 24 HOURS Resulted 03/04/18 15:20 Arm Right Anaerobic Culture Pending Resulted Laboratory Tests 03/05/18 03:30: White Blood Count 9.2, Red Blood Count 2.45L, Hemoglobin 7.5L, Hematocrit 23.0L , Mean Corpuscular Volume 94, Mean Corpuscular Hemoglobin 30.7, Mean Corpuscular Hemoglobin Concent 32.6, Red Cell Distribution Width 18.2H, Platelet Count 117L, Mean Platelet Volume 8.3, Neutrophils (%) (Auto) , Lymphocytes (%) (Auto) , Monocytes (%) (Auto) , Eosinophils (%) (Auto) , Basophils (%) (Auto) , Differential Total Cells Counted 100, Neutrophils % ( Manual) 78H, Lymphocytes % (Manual) 8L, Monocytes % (Manual) 9, Eosinophils % ( Manual) 4H, Basophils % (Manual) 1, Band Neutrophils 0, Platelet Estimate DecreasedL, Platelet Morphology Normal, Polychromasia 1+, Hypochromasia 3+, Poikilocytosis 1+, Anisocytosis 2+, Spherocytes 1+, Sodium Level 140, Potassium Level 3.2L, Chloride Level 97L, Carbon Dioxide Level 34H, Anion Gap 10, Blood Urea Nitrogen 57H, Creatinine 7.9H, Estimat Glomerular Filtration Rate 6.9, Glucose Level 102, Calcium Level 8.3L, Phosphorus Level 4.8, Magnesium Level 2.3 , Total Creatine Kinase 38 Current Medications Medications (Trade) Dose Ordered Sig/Blessing Route PRN Reason Start Time Stop Time Status Last Admin Dose Admin Acetaminophen (Tylenol) 500 mg 3XW PRN ORAL WITH DIALYSIS 03/01/18 09:00 03/27/18 08:59 Acetaminophen (Tylenol) 650 mg Q4H PRN RECTAL Mild Pain/Temp > 100.5 03/01/18 01:15 03/26/18 17:14 Acetaminophen (Tylenol) 650 mg Q6H PRN ORAL Mild Pain/Temp > 100.5 02/28/18 23:00 03/25/18 10:59 03/01/18 03:47 Albuterol/ Ipratropium (Albuterol/ Ipratropium) 3 ml Q4H PRN HHN Shortness of Breath 03/03/18 11:15 03/08/18 11:14 Ceftaroline Fosamil 200 mg/ Sodium Chloride 55 ml @ 55 mls/hr EVERY 12 HOURS IVPB 03/04/18 18:00 03/11/18 17:59 03/05/18 10:21 Chlorhexidine Gluconate (Miriam-Hex 2%) 1 applic DAILY@2000 TOPIC 03/01/18 20:00 03/28/18 19:59 03/04/18 20:09 Clonidine HCl (Catapres Tab) 0.1 mg EVERY 4 HOURS PRN ORAL FOR BP > 160. 03/01/18 01:00 03/25/18 10:44 Daptomycin 450 mg/ Sodium Chloride 110 ml @ 200 mls/hr Q48H IV 03/04/18 14:00 03/11/18 13:59 03/04/18 17:22 Diphenhydramine HCl (Benadryl) 50 mg Q6H PRN ORAL Itching 02/28/18 23:00 03/25/18 10:59 03/02/18 15:11 Docusate Sodium (Colace) 100 mg THREE TIMES A DAY ORAL 03/01/18 18:00 03/31/18 17:59 03/05/18 10:22 Epoetin Alfonzo (Procrit (for ESRD on dialysis)) 10,000 units SUN-SUN-SUN SUBQ 03/01/18 21:00 03/27/18 20:59 03/04/18 20:10 Haloperidol Lactate (Haldol) 5 mg Q4H PRN IM AGITATION 02/28/18 23:00 03/25/18 10:59 Lansoprazole (Prevacid) 30 mg DAILY@0730 ORAL 03/01/18 07:30 03/31/18 07:29 03/05/18 06:35 Nicotine (Nicoderm) 1 patch Q24H TDERMAL 03/01/18 09:00 03/26/18 08:59 03/05/18 10:24 Oxycodone/ Acetaminophen (Percocet 5-325) 1 tab Q4H PRN ORAL Severe Pain (Pain Scale 7-10) 03/01/18 01:30 03/07/18 09:29 03/05/18 10:22 Prochlorperazine (Compazine) 10 mg Q6H PRN IVP Nausea & Vomiting 02/28/18 23:00 03/25/18 10:59 Quetiapine Fumarate (SEROquel) 25 mg QHS ORAL 03/01/18 21:00 03/25/18 20:59 03/04/18 20:10 Sevelamer Carbonate (Renvela) 1,600 mg TID@3830,1130,1730 ORAL 03/04/18 11:30 04/01/18 07:29 03/05/18 06:36 Clement Mcleod MD March 05, 2018 14:30
--- NOTE | 2018-03-05 15:24 | Nephrology Progress Note ---
Assessment/Plan Problem List: (1) ESRD (end stage renal disease) on dialysis (2) Acute hyperkalemia (3) Hypertension, uncontrolled (4) Left leg DVT (5) Anemia in chronic kidney disease (CKD) Assessment BP stable stop mind altering meds ESRD, on admission missed dialysis . has high K on admission has fistula right arm Sever Anemia h/o Amyloidosis COPD Plan HD as needed next 03/07 stop BP meds- on PRN clonidine only Transfusion as needed Kayexelate as needed BP control, meds adjusted has IVC filter add phos binders Subjective ROS Limited/Unobtainable: No Constitutional: Reports: malaise Objective Objective Last 24 Hour Vital Signs Date Time Temp Pulse Resp B/P (MAP) Pulse Ox O2 Delivery O2 Flow Rate FiO2 03/05/18 12:09 97.3 74 20 111/56 95 97.3 03/05/18 11:21 97.3 03/05/18 10:22 97.5 03/05/18 10:00 72 122/55 03/05/18 07:50 97.5 75 16 99/51 95 97.5 03/05/18 04:00 98.2 82 20 114/50 90 98.2 03/05/18 00:00 98.2 86 22 100/53 92 98.2 03/04/18 19:46 97.7 75 19 121/63 94 97.7 03/04/18 16:39 Venturi Mask 4.5 03/04/18 16:37 96.8 76 20 112/58 Venturi Mask 4.5 96.8 03/04/18 16:10 97.2 72 18 115/59 98 Venturi Mask 6.0 30 97.2 Intake and Output 03/04/18 03/05/18 19:00 07:00 Intake Total 765 ml 50 ml Output Total 1800 ml Balance -1035 ml 50 ml Intake Oral 600 ml 50 ml IV Total 165 ml Hemodialysis UF 1800 ml Laboratory Tests 03/05/18 03:30: White Blood Count 9.2, Red Blood Count 2.45L, Hemoglobin 7.5L, Hematocrit 23.0L , Mean Corpuscular Volume 94, Mean Corpuscular Hemoglobin 30.7, Mean Corpuscular Hemoglobin Concent 32.6, Red Cell Distribution Width 18.2H, Platelet Count 117L, Mean Platelet Volume 8.3, Neutrophils (%) (Auto) , Lymphocytes (%) (Auto) , Monocytes (%) (Auto) , Eosinophils (%) (Auto) , Basophils (%) (Auto) , Differential Total Cells Counted 100, Neutrophils % ( Manual) 78H, Lymphocytes % (Manual) 8L, Monocytes % (Manual) 9, Eosinophils % ( Manual) 4H, Basophils % (Manual) 1, Band Neutrophils 0, Platelet Estimate DecreasedL, Platelet Morphology Normal, Polychromasia 1+, Hypochromasia 3+, Poikilocytosis 1+, Anisocytosis 2+, Spherocytes 1+, Sodium Level 140, Potassium Level 3.2L, Chloride Level 97L, Carbon Dioxide Level 34H, Anion Gap 10, Blood Urea Nitrogen 57H, Creatinine 7.9H, Estimat Glomerular Filtration Rate 6.9, Glucose Level 102, Calcium Level 8.3L, Phosphorus Level 4.8, Magnesium Level 2.3 , Total Creatine Kinase 38 Height (Feet): 5 Height (Inches): 7.00 Weight (Pounds): 126 General Appearance: no apparent distress Cardiovascular: regular rhythm Respiratory/Chest: decreased breath sounds Abdomen: soft Objective no change DALTON ROSENTHAL March 05, 2018 15:24
--- NOTE | 2018-03-05 16:13 | GI Progress Note ---
Assessment/Plan Problems: (1) Abnormal LFTs ICD Codes: R94.5 - Abnormal results of liver function studies SNOMED: 433935689 (2) Symptomatic anemia ICD Codes: D64.9 - Anemia, unspecified SNOMED: 623140109 (3) ESRD (end stage renal disease) on dialysis ICD Codes: N18.6 - End stage renal disease; Z99.2 - Dependence on renal dialysis SNOMED: 253185781 Status: stable Status Narrative Discussed with Dr. Matos. Assessment/Plan hx of EGD/colonoscopy 3 months ago per patient, cannot recall location. iron panel WNL OB stool negative x3 Hep C positive >> patient treatment EGD scheduled tomorrow per request of cardiology prior to AMAURI. - NPO @ [place]. - hold all blood thinners toniight. fu nephro recs monitor H&H, prn transfusions ppi thiamine fu labs The patient was seen and examined at bedside and all new and available data was reviewed in the patients chart. I agree with the above findings, impression and plan. (Patient seen earlier today. Signature stamp does not reflect patient encounter time.). - Tushar Matos MD Subjective Subjective denies abdominal pain had EGD/colonoscopy x3 months Objective Last 24 Hour Vital Signs Date Time Temp Pulse Resp B/P (MAP) Pulse Ox O2 Delivery O2 Flow Rate FiO2 03/05/18 15:48 98.8 77 19 107/59 95 Room Air 98.8 03/05/18 12:09 97.3 74 20 111/56 95 97.3 03/05/18 11:21 97.3 03/05/18 10:22 97.5 03/05/18 10:00 72 122/55 03/05/18 07:50 97.5 75 16 99/51 95 97.5 03/05/18 04:00 98.2 82 20 114/50 90 98.2 03/05/18 00:00 98.2 86 22 100/53 92 98.2 03/04/18 19:46 97.7 75 19 121/63 94 97.7 03/04/18 16:39 Venturi Mask 4.5 03/04/18 16:37 96.8 76 20 112/58 Venturi Mask 4.5 96.8 Intake and Output 03/04/18 03/05/18 19:00 07:00 Intake Total 765 ml 50 ml Output Total 1800 ml Balance -1035 ml 50 ml Intake Oral 600 ml 50 ml IV Total 165 ml Hemodialysis UF 1800 ml Laboratory Tests Test 03/05/18 03:30 White Blood Count 9.2 K/UL (4.8-10.8) Red Blood Count 2.45 M/UL (4.70-6.10) L Hemoglobin 7.5 G/DL (14.2-18.0) L Hematocrit 23.0 % (42.0-52.0) L Mean Corpuscular Volume 94 FL (80-99) Mean Corpuscular Hemoglobin 30.7 PG (27.0-31.0) Mean Corpuscular Hemoglobin Concent 32.6 G/DL (32.0-36.0) Red Cell Distribution Width 18.2 % (11.6-14.8) H Platelet Count 117 K/UL (150-450) L Mean Platelet Volume 8.3 FL (6.5-10.1) Neutrophils (%) (Auto) % (45.0-75.0) Lymphocytes (%) (Auto) % (20.0-45.0) Monocytes (%) (Auto) % (1.0-10.0) Eosinophils (%) (Auto) % (0.0-3.0) Basophils (%) (Auto) % (0.0-2.0) Differential Total Cells Counted 100 Neutrophils % (Manual) 78 % (45-75) H Lymphocytes % (Manual) 8 % (20-45) L Monocytes % (Manual) 9 % (1-10) Eosinophils % (Manual) 4 % (0-3) H Basophils % (Manual) 1 % (0-2) Band Neutrophils 0 % (0-8) Platelet Estimate Decreased L Platelet Morphology Normal Polychromasia 1+ Hypochromasia 3+ Poikilocytosis 1+ Anisocytosis 2+ Spherocytes 1+ Sodium Level 140 MMOL/L (136-145) Potassium Level 3.2 MMOL/L (3.5-5.1) L Chloride Level 97 MMOL/L (98-107) L Carbon Dioxide Level 34 MMOL/L (21-32) H Anion Gap 10 mmol/L (5-15) Blood Urea Nitrogen 57 mg/dL (7-18) H Creatinine 7.9 MG/DL (0.55-1.30) H Estimat Glomerular Filtration Rate 6.9 mL/min (>60) Glucose Level 102 MG/DL (74-106) Calcium Level 8.3 MG/DL (8.5-10.1) L Phosphorus Level 4.8 MG/DL (2.5-4.9) Magnesium Level 2.3 MG/DL (1.8-2.4) Total Creatine Kinase 38 U/L (26-308) Microbiology Date/Time Source Procedure Growth Status 03/04/18 19:50 Blood Blood Culture - Preliminary Resulted 03/04/18 19:40 Blood Blood Culture - Preliminary Resulted Height (Feet): 5 Height (Inches): 7.00 Weight (Pounds): 126 General Appearance: WD/WN, no apparent distress, alert Cardiovascular: normal rate Respiratory/Chest: normal breath sounds, no respiratory distress Abdominal Exam: normal bowel sounds, non tender, soft Extremities: normal range of motion, non-tender Meliton Aldana NP March 05, 2018 16:13
--- NOTE | 2018-03-05 17:27 | General Progress Note ---
Assessment/Plan Assessment/Plan (1) Right hip pain (2) Right hip Fracture (3) S/p ORIF of right hip Pt will be continued on Percocet HOLD OPIOIDS FOR OVERSEDATION OR SBP<90 OR DBP<60 OR O2SAT<92% OR RR<12 D/w Dr. Childers he concurred. Subjective Date patient seen: March 05, 2018 Time patient seen: 05:00 - pm Constitutional: Reports: weakness HEENT: Reports: no symptoms Cardiovascular: Reports: no symptoms Respiratory: Reports: shortness of breath Gastrointestinal/Abdominal: Reports: no symptoms Genitourinary: Reports: no symptoms Neurologic/Psychiatric: Reports: weakness Endocrine: Reports: no symptoms Hematologic/Lymphatic: Reports: no symptoms Allergies: Coded Allergies: No Known Allergies (Unverified , 02/02/18) Subjective Patient is in bed continues to c/o hip pain which he says is severe. Pain is reduced on the Percocet. Which he has used 4 doses of in the last 24hrs. Objective Last 24 Hour Vital Signs Date Time Temp Pulse Resp B/P (MAP) Pulse Ox O2 Delivery O2 Flow Rate FiO2 03/05/18 16:22 98.8 03/05/18 15:48 98.8 77 19 107/59 95 Room Air 98.8 03/05/18 12:09 97.3 74 20 111/56 95 97.3 03/05/18 11:21 97.3 03/05/18 10:22 97.5 03/05/18 10:00 72 122/55 03/05/18 07:50 97.5 75 16 99/51 95 97.5 03/05/18 04:00 98.2 82 20 114/50 90 98.2 03/05/18 00:00 98.2 86 22 100/53 92 98.2 03/04/18 19:46 97.7 75 19 121/63 94 97.7 Intake and Output 03/04/18 03/05/18 19:00 07:00 Intake Total 765 ml 50 ml Output Total 1800 ml Balance -1035 ml 50 ml Intake Oral 600 ml 50 ml IV Total 165 ml Hemodialysis UF 1800 ml Laboratory Tests 03/05/18 03:30: White Blood Count 9.2, Red Blood Count 2.45L, Hemoglobin 7.5L, Hematocrit 23.0L , Mean Corpuscular Volume 94, Mean Corpuscular Hemoglobin 30.7, Mean Corpuscular Hemoglobin Concent 32.6, Red Cell Distribution Width 18.2H, Platelet Count 117L, Mean Platelet Volume 8.3, Neutrophils (%) (Auto) , Lymphocytes (%) (Auto) , Monocytes (%) (Auto) , Eosinophils (%) (Auto) , Basophils (%) (Auto) , Differential Total Cells Counted 100, Neutrophils % ( Manual) 78H, Lymphocytes % (Manual) 8L, Monocytes % (Manual) 9, Eosinophils % ( Manual) 4H, Basophils % (Manual) 1, Band Neutrophils 0, Platelet Estimate DecreasedL, Platelet Morphology Normal, Polychromasia 1+, Hypochromasia 3+, Poikilocytosis 1+, Anisocytosis 2+, Spherocytes 1+, Sodium Level 140, Potassium Level 3.2L, Chloride Level 97L, Carbon Dioxide Level 34H, Anion Gap 10, Blood Urea Nitrogen 57H, Creatinine 7.9H, Estimat Glomerular Filtration Rate 6.9, Glucose Level 102, Calcium Level 8.3L, Phosphorus Level 4.8, Magnesium Level 2.3 , Total Creatine Kinase 38 Height (Feet): 5 Height (Inches): 7.00 Weight (Pounds): 126 Objective Neck: non-tender, normal alignment, supple, normal inspection Respiratory/Chest: decreased breath sounds Cardiovascular/Chest: normal rate, regular rhythm Abdomen: non tender, soft, no organomegaly Extremities: inflammation - right hip tenderness to palpation Skin Exam: normal pigmentation, warm/dry KANWAL CURRAN March 05, 2018 17:27
[2018-03-05] MEDS: Dyna-Hex 2% Top Sol 2oz TOPIC SCH (20:43)
[2018-03-06] VITALS (10 sets, daily range): BP systolic 91–145; BP diastolic 48–80
[2018-03-06] MEDS: Haloperidol 5mg/ml Inj IM PRN ×2 (02:07→15:20)
--- NOTE | 2018-03-06 06:32 | Progress Note ---
DATE: 03/06/2018 SUBJECTIVE: This is a 63-year-old patient with anemia and GI bleeding. The patient continues to have some altered mental status and confusion, seems to have confusion and has altered mental status, worsened by stress of his medical problems. That is why, his attending has requested daily psychiatric consultation. MENTAL STATUS EXAMINATION: This is a 63-year-old male patient. Appearance is disheveled. Attitude, irritable and agitated. Affect, guarded and restricted. Intellect poor. Mood, depressed and anxious. Motor activity, psychomotor agitation. Attention span is poor. Orientation x2. Speech is pressured. Thought process, disorganized and illogical. Thought content, paranoid delusions. Insight and judgment is poor. DIAGNOSIS: Major depressive disorder, mild, recurrent with psychotic features. PLAN: To treat him with Seroquel 25 mg at bedtime. An 18 to 20 minutes of supportive psychotherapy provided. Chart reviewed and discussed with staff. Seen and assessed at bedside. Rony Corral M.D. DR: PAM JOB#: [id number] CC:
--- NOTE | 2018-03-06 07:01 | Anethesia Preoperative Eval ---
Anesthesia Pre-op PMH/ROS General Date of Evaluation: March 06, 2018 Time of Evaluation: 07:00 Anesthesiologist: paola ASA Score: ASA 4 Mallampati Score Class I : Soft palate, uvula, fauces, pillars visible Class II: Soft palate, uvula, fauces visible Class III: Soft palate, base of uvula visible Class IV: Only hard plate visible Mallampati Classification: Class II Surgeon: suzie Diagnosis: anemia Surgical Procedure: egd Anesthesia History: none Social History: current smoker Family History: no anesthesia problems Allergies: Coded Allergies: No Known Allergies (Unverified , 02/02/18) Medications: see eMAR Past Medical History Cardiovascular: Reports: HTN Pulmonary: Reports: COPD Gastrointestinal/Genitourinary: Reports: ESRD, other - bph Neurologic/Psychiatric: Reports: other - ptsd Hematology/Immune: Reports: anemia Anesthesia Pre-op Phys. Exam Physician Exam Last Vital Signs Date Time Temp Pulse Resp B/P (MAP) Pulse Ox O2 Delivery O2 Flow Rate FiO2 03/06/18 04:00 Nasal Cannula 3.0 03/06/18 04:00 98.5 85 17 138/78 97 98.5 03/05/18 20:34 32 Constitutional: NAD Neurologic: CN 2-12 intact Cardiovascular: RRR Respiratory: CTA Gastrointestinal: S/NT/ND Airway Exam Mallampati Score: Class II MO: limited Neck: supple TMD: 2fb ROM: limited Teeth: missing Anesthesia Pre-op A/P Labs Labs Test 03/04/18 08:50 03/05/18 03:30 03/06/18 05:00 White Blood Count 10.2 K/UL (4.8-10.8) 9.2 K/UL (4.8-10.8) 8.7 K/UL (4.8-10.8) Red Blood Count 2.59 M/UL (4.70-6.10) 2.45 M/UL (4.70-6.10) 2.45 M/UL (4.70-6.10) Hemoglobin 7.9 G/DL (14.2-18.0) 7.5 G/DL (14.2-18.0) 7.5 G/DL (14.2-18.0) Hematocrit 24.2 % (42.0-52.0) 23.0 % (42.0-52.0) 23.1 % (42.0-52.0) Mean Corpuscular Volume 93 FL (80-99) 94 FL (80-99) 94 FL (80-99) Mean Corpuscular Hemoglobin 30.4 PG (27.0-31.0) 30.7 PG (27.0-31.0) 30.7 PG (27.0-31.0) Mean Corpuscular Hemoglobin Concent 32.5 G/DL (32.0-36.0) 32.6 G/DL (32.0-36.0) 32.5 G/DL (32.0-36.0) Red Cell Distribution Width 17.5 % (11.6-14.8) 18.2 % (11.6-14.8) 18.9 % (11.6-14.8) Platelet Count 116 K/UL (150-450) 117 K/UL (150-450) 118 K/UL (150-450) Mean Platelet Volume 8.1 FL (6.5-10.1) 8.3 FL (6.5-10.1) 7.6 FL (6.5-10.1) Neutrophils (%) (Auto) % (45.0-75.0) % (45.0-75.0) % (45.0-75.0) Lymphocytes (%) (Auto) % (20.0-45.0) % (20.0-45.0) % (20.0-45.0) Monocytes (%) (Auto) % (1.0-10.0) % (1.0-10.0) % (1.0-10.0) Eosinophils (%) (Auto) % (0.0-3.0) % (0.0-3.0) % (0.0-3.0) Basophils (%) (Auto) % (0.0-2.0) % (0.0-2.0) % (0.0-2.0) Differential Total Cells Counted 100 100 100 Neutrophils % (Manual) 77 % (45-75) 78 % (45-75) 81 % (45-75) Lymphocytes % (Manual) 15 % (20-45) 8 % (20-45) 11 % (20-45) Monocytes % (Manual) 6 % (1-10) 9 % (1-10) 5 % (1-10) Eosinophils % (Manual) 1 % (0-3) 4 % (0-3) 3 % (0-3) Basophils % (Manual) 0 % (0-2) 1 % (0-2) 0 % (0-2) Band Neutrophils 1 % (0-8) 0 % (0-8) 0 % (0-8) Platelet Estimate Decreased Decreased Decreased Platelet Morphology Normal Normal Normal Polychromasia 1+ 1+ Hypochromasia 3+ 3+ 1+ Anisocytosis 1+ 2+ 1+ Spherocytes 1+ 1+ Sodium Level 138 MMOL/L (136-145) 140 MMOL/L (136-145) 138 MMOL/L (136-145) Potassium Level 4.3 MMOL/L (3.5-5.1) 3.2 MMOL/L (3.5-5.1) 3.5 MMOL/L (3.5-5.1) Chloride Level 95 MMOL/L (98-107) 97 MMOL/L (98-107) 95 MMOL/L (98-107) Carbon Dioxide Level 32 MMOL/L (21-32) 34 MMOL/L (21-32) 30 MMOL/L (21-32) Anion Gap 11 mmol/L (5-15) 10 mmol/L (5-15) 13 mmol/L (5-15) Blood Urea Nitrogen 87 mg/dL (7-18) 57 mg/dL (7-18) 70 mg/dL (7-18) Creatinine 10.5 MG/DL (0.55-1.30) 7.9 MG/DL (0.55-1.30) 9.6 MG/DL (0.55-1.30) Estimat Glomerular Filtration Rate 5.0 mL/min (>60) 6.9 mL/min (>60) 5.5 mL/min (>60) Glucose Level 124 MG/DL (74-106) 102 MG/DL (74-106) 84 MG/DL (74-106) Uric Acid 11.6 MG/DL (2.6-7.2) Calcium Level 7.3 MG/DL (8.5-10.1) 8.3 MG/DL (8.5-10.1) 7.9 MG/DL (8.5-10.1) Phosphorus Level 5.3 MG/DL (2.5-4.9) 4.8 MG/DL (2.5-4.9) Magnesium Level 2.6 MG/DL (1.8-2.4) 2.3 MG/DL (1.8-2.4) Total Bilirubin 1.1 MG/DL (0.2-1.0) Direct Bilirubin 0.7 MG/DL (0.0-0.3) Aspartate Amino Transf (AST/SGOT) 15 U/L (15-37) Alanine Aminotransferase (ALT/SGPT) 15 U/L (12-78) Alkaline Phosphatase 364 U/L (46-116) Pro-B-Type Natriuretic Peptide 94975 pg/mL (0-125) Total Protein 7.2 G/DL (6.4-8.2) Albumin 2.5 G/DL (3.4-5.0) Globulin 4.7 g/dL Albumin/Globulin Ratio 0.5 (1.0-2.7) Poikilocytosis 1+ Total Creatine Kinase 38 U/L (26-308) Prothrombin Time 12.4 SEC (9.30-11.50) Prothromb Time International Ratio 1.2 (0.9-1.1) Activated Partial Thromboplast Time 33 SEC (23-33) Risk Assessment & Plan Assessment: [email or web address] Plan: mac Status Change Before Surgery: No Pre-Antibiotics Drug: Danica Tompkins MD March 06, 2018 07:01
[2018-03-06 07:52] LABS: HEMATOCRIT 23.1 % (42.0-52.0); HEMOGLOBIN 7.5 G/DL (14.2-18.0); MEAN CORPUSCULAR VOLUME 94 FL (80-99); PLATELET COUNT 118 K/UL (150-450); RED BLOOD COUNT 2.45 M/UL (4.70-6.10); RED CELL DISTRIBUTION WIDTH 18.9 % (11.6-14.8); WHITE BLOOD COUNT 8.7 K/UL (4.8-10.8)
[2018-03-06] MEDS: Docusate 100mg cap ORAL SCH ×4 (08:16→17:35)
[2018-03-06 08:17] LABS: BLOOD UREA NITROGEN 70 mg/dL (7-18); CALCIUM 7.9 MG/DL (8.5-10.1); CHLORIDE 95 MMOL/L (98-107); CREATININE 9.6 MG/DL (0.55-1.30); POTASSIUM 3.5 MMOL/L (3.5-5.1); SODIUM 138 MMOL/L (136-145)
[2018-03-06] MEDS: oxyCODONE HCL/Acetaminophen 5/325mg ORAL PRN ×3 (08:17→19:34)
--- NOTE | 2018-03-06 08:28 | General Progress Note ---
Assessment/Plan Status: stable Assessment/Plan # Numerous small to borderline mediastinal and bilateral axillary lymph nodes. Prominent subcarinal lymph node. Meet pathological size. Imaging has been reviewed for the last two CAT scans --> further recs per pulm in regards to management, reimaging in future, versus more interventional such as biopsy --> appreciate pulm/cc recommendations #. Acute deep venous thrombosis of left lower extremity. --> Status post inferior vena cava filter placement. --> given persistent low h/h and fact that has ivc filter, coumadin has been discontinued --> hold off on further anticoagulation given low h/h #. Anemia of gastrointestinal bleed. --> transfuse if hgb <7, workup has been reviewed --> Appreciate gi recs, has been seen by them --> had endoscopy but location unknown where he had it #. Thrombocytopenia baseline likely plt count of >50-100k --> likely related to splenomegaly and hepatitis C --> monitor closely for bleed if downtrends though this is less likely --> transfuse to keep plt >20k #. Anemia of kidney disease. --> On Hemodialysis by crossing tender, on epo as well #. Anemia of chronic disease is s/p blood transfusion. #. End-stage renal disease, hemodialysis dependent. --> epo to continue 3x a week #. Leukocytosis -- management per ID --> WBC scan pending as well is neg, then AMAURI #. History of femoral neck fracture. On pain control. #. Acute respiratory failure. #. Hep C ++ Subjective Date patient seen: March 06, 2018 Allergies: Coded Allergies: No Known Allergies (Unverified , 02/02/18) All Systems: reviewed and negative except above Subjective No overnight events reported. No s/s of acute medical distress. Continue supportive care. Objective Last 24 Hour Vital Signs Date Time Temp Pulse Resp B/P (MAP) Pulse Ox O2 Delivery O2 Flow Rate FiO2 03/06/18 04:00 Nasal Cannula 3.0 03/06/18 04:00 98.5 85 17 138/78 97 98.5 03/06/18 00:17 98.4 79 18 145/80 98 98.4 03/06/18 00:00 Nasal Cannula 3.0 03/05/18 20:34 78 20 Nasal Cannula 3.0 32 03/05/18 20:34 32 03/05/18 20:34 98 Nasal Cannula 3.0 32 03/05/18 20:34 Nasal Cannula 3.0 32 03/05/18 20:33 78 20 98 Nasal Cannula 3.0 32 03/05/18 20:30 Nasal Cannula 3.0 03/05/18 20:25 98.6 82 20 147/84 98 98.6 03/05/18 17:21 98.8 03/05/18 16:22 98.8 03/05/18 15:48 98.8 77 19 107/59 95 Room Air 98.8 03/05/18 12:09 97.3 74 20 111/56 95 97.3 03/05/18 10:22 97.5 03/05/18 10:00 72 122/55 Intake and Output 03/05/18 03/06/18 19:00 07:00 Intake Total 655 ml 295 ml Balance 655 ml 295 ml Intake Oral 600 ml 240 ml IV Total 55 ml 55 ml # Bowel Movements 1 Laboratory Tests 03/06/18 05:00: White Blood Count 8.7, Red Blood Count 2.45L, Hemoglobin 7.5L, Hematocrit 23.1L , Mean Corpuscular Volume 94, Mean Corpuscular Hemoglobin 30.7, Mean Corpuscular Hemoglobin Concent 32.5, Red Cell Distribution Width 18.9H, Platelet Count 118L, Mean Platelet Volume 7.6, Neutrophils (%) (Auto) , Lymphocytes (%) (Auto) , Monocytes (%) (Auto) , Eosinophils (%) (Auto) , Basophils (%) (Auto) , Neutrophils % (Manual) [Pending], Lymphocytes % (Manual) [Pending], Platelet Estimate [Pending], Platelet Morphology [Pending], Prothrombin Time [Pending], Prothromb Time International Ratio [Pending], Activated Partial Thromboplast Time [Pending], Sodium Level 138, Potassium Level 3.5, Chloride Level 95L, Carbon Dioxide Level [Pending], Blood Urea Nitrogen 70H, Creatinine 9.6H, Estimat Glomerular Filtration Rate 5.5, Glucose Level 84, Calcium Level 7.9L Height (Feet): 5 Height (Inches): 7.00 Weight (Pounds): 125 General Appearance: no apparent distress EENT: normal ENT inspection Neck: supple Cardiovascular: normal rate Respiratory/Chest: lungs clear Tristen Lewis MD March 06, 2018 08:28
[2018-03-06 08:29] LABS: INR 1.2 (0.9-1.1)
--- NOTE | 2018-03-06 09:07 | General Progress Note ---
Assessment/Plan Assessment/Plan (1) Right hip pain (2) Right hip Fracture (3) S/p ORIF of right hip Pt will be continued on Percocet HOLD OPIOIDS FOR OVERSEDATION OR SBP<90 OR DBP<60 OR O2SAT<92% OR RR<12 D/w Dr. Childers he concurred. Subjective Date patient seen: March 06, 2018 Time patient seen: 07:00 - am Allergies: Coded Allergies: No Known Allergies (Unverified , 02/02/18) Subjective Constitutional: Reports: weakness HEENT: Reports: no symptoms Cardiovascular: Reports: no symptoms Respiratory: Reports: shortness of breath Gastrointestinal/Abdominal: Reports: no symptoms Genitourinary: Reports: no symptoms Neurologic/Psychiatric: Reports: weakness Endocrine: Reports: no symptoms Hematologic/Lymphatic: Reports: no symptoms Subjective In bed no signs of pain or distress. Going for GI procedure. Objective Last 24 Hour Vital Signs Date Time Temp Pulse Resp B/P (MAP) Pulse Ox O2 Delivery O2 Flow Rate FiO2 03/06/18 04:00 Nasal Cannula 3.0 03/06/18 04:00 98.5 85 17 138/78 97 98.5 03/06/18 00:17 98.4 79 18 145/80 98 98.4 03/06/18 00:00 Nasal Cannula 3.0 03/05/18 20:34 78 20 Nasal Cannula 3.0 32 03/05/18 20:34 32 03/05/18 20:34 98 Nasal Cannula 3.0 32 03/05/18 20:34 Nasal Cannula 3.0 32 03/05/18 20:33 78 20 98 Nasal Cannula 3.0 32 03/05/18 20:30 Nasal Cannula 3.0 03/05/18 20:25 98.6 82 20 147/84 98 98.6 03/05/18 17:21 98.8 03/05/18 16:22 98.8 03/05/18 15:48 98.8 77 19 107/59 95 Room Air 98.8 03/05/18 12:09 97.3 74 20 111/56 95 97.3 03/05/18 10:22 97.5 03/05/18 10:00 72 122/55 Intake and Output 03/05/18 03/06/18 19:00 07:00 Intake Total 655 ml 295 ml Balance 655 ml 295 ml Intake Oral 600 ml 240 ml IV Total 55 ml 55 ml # Bowel Movements 1 Laboratory Tests 03/06/18 05:00: White Blood Count 8.7, Red Blood Count 2.45L, Hemoglobin 7.5L, Hematocrit 23.1L , Mean Corpuscular Volume 94, Mean Corpuscular Hemoglobin 30.7, Mean Corpuscular Hemoglobin Concent 32.5, Red Cell Distribution Width 18.9H, Platelet Count 118L, Mean Platelet Volume 7.6, Neutrophils (%) (Auto) , Lymphocytes (%) (Auto) , Monocytes (%) (Auto) , Eosinophils (%) (Auto) , Basophils (%) (Auto) , Neutrophils % (Manual) [Pending], Lymphocytes % (Manual) [Pending], Platelet Estimate [Pending], Platelet Morphology [Pending], Prothrombin Time 12.4H, Prothromb Time International Ratio 1.2H, Activated Partial Thromboplast Time 33, Sodium Level 138, Potassium Level 3.5, Chloride Level 95L, Carbon Dioxide Level [Pending], Blood Urea Nitrogen 70H, Creatinine 9.6H, Estimat Glomerular Filtration Rate 5.5, Glucose Level 84, Calcium Level 7.9L Height (Feet): 5 Height (Inches): 7.00 Weight (Pounds): 125 Objective Neck: non-tender, normal alignment, supple, normal inspection Respiratory/Chest: decreased breath sounds Cardiovascular/Chest: normal rate, regular rhythm Abdomen: non tender, soft, no organomegaly Extremities: inflammation - right hip tenderness to palpation Skin Exam: normal pigmentation, warm/dry KANWAL CURRAN PMarcelo March 06, 2018 09:07
[2018-03-06 09:25] LABS: CARBON DIOXIDE 30 MMOL/L (21-32)
[2018-03-06 09:26] LABS: ANION GAP 13 mmol/L (5-15)
[2018-03-06] MEDS: Ceftaroline 200 MG in NS 55 ML IVPB SCH ×2 (09:43→23:10)
--- NOTE | 2018-03-06 12:03 | Infectious Diseases Prog Note ---
Assessment/Plan Assessment/Plan ASSESSMENT: The patient is a 63-year-old male with, Fever, SP Persistent Bacteremia MRSA ( 02/22,, 18, , ) ( m/l 2/2 HD )-suspect endovascular source (ie, AVF infection ( erythema and swollen + ) vs endocarditis); r/o seeding hip prosthetic material -wound cx R arm (?from AVF fistula)- S. aureus -CT chest abd/p w/ 03/02: Bibasilar lung atelectasis and airspace opacities, worse in the right lower lobe, worrisome for pneumonia. Tiny bilateral pleural effusions. Numerous small to borderline mediastinal and bilateral axillary lymph nodes. Prominent subcarinal lymph node. Emphysema. Mild superior endplate compression deformities T4, T5, T6, T8, T10, T11, are age- indeterminate. Age-indeterminate vertical fracture through the mid L2 vertebral body with anterior wedge compression. 02/26 2DEcho limited , av and mv thickening but no Veg Leukocytosis ,resolvbed 02/06/ CT of chest [id number] : no evidence of pulmonary emboli, diffuse septal thickening, and bilateral ground glass opacities, and small bilateral pleural effusion. Neg : HIV , Hep panel gastrointestinal bleed : had endoscopy but location unknown 02/25 SP Lt IJ Anemia. End-stage renal disease, on hemodialysis. Left leg DVT. Right hip fracture, status post ORIF. History of hepatitis C Splenomegaly. Status post IVC filter placement PLAN: -Continue IV Daptomycin 8mg/kg q 48hr and Ceftaroline ( AB Rx d# 10) due to persistent bacteremia; will need 6 weeks from 1st neg BCx as likely endovascular source given AVF and persistent bacteremia - monitor CPK SP 03/04 IV Vancomycin #8 SP 02/26 Zyvox d# 1 ( pt now has IV Access ) -Bcx x2 (L IJ and peripheral) -f/u WBC scan -AMAURI to r.o vegetation -f/u Sp cx -obtain PIV and removal LIJ Monitor CBC. Monitor BMP. Monitor blood cultures Monitor chest x-ray. Monitor vital signs care was estela RN Subjective Allergies: Coded Allergies: No Known Allergies (Unverified , 02/02/18) Subjective afebrile no leukocytosis persist bacteremic for 2nd part of bone scan Objective Vital Signs Last 24 Hour Vital Signs Date Time Temp Pulse Resp B/P (MAP) Pulse Ox O2 Delivery O2 Flow Rate FiO2 03/06/18 11:19 95 Nasal Cannula 2.0 28 03/06/18 11:19 Nasal Cannula 2.0 28 03/06/18 11:19 69 20 Nasal Cannula 2.0 28 03/06/18 08:00 97.8 77 15 134/64 95 Nasal Cannula 3.0 97.8 03/06/18 04:00 Nasal Cannula 3.0 03/06/18 04:00 98.5 85 17 138/78 97 98.5 03/06/18 00:17 98.4 79 18 145/80 98 98.4 03/06/18 00:00 Nasal Cannula 3.0 03/05/18 20:34 78 20 Nasal Cannula 3.0 32 03/05/18 20:34 32 03/05/18 20:34 98 Nasal Cannula 3.0 32 03/05/18 20:34 Nasal Cannula 3.0 32 03/05/18 20:33 78 20 98 Nasal Cannula 3.0 32 03/05/18 20:30 Nasal Cannula 3.0 03/05/18 20:25 98.6 82 20 147/84 98 98.6 03/05/18 17:21 98.8 03/05/18 16:22 98.8 03/05/18 15:48 98.8 77 19 107/59 95 Room Air 98.8 03/05/18 12:09 97.3 74 20 111/56 95 97.3 Height (Feet): 5 Height (Inches): 7.00 Weight (Pounds): 125 Objective General Appearance: no acute distress HEENT: normocephalic, atraumatic, anicteric Respiratory/Chest: chest wall non-tender, normal breath sounds, no respiratory distress Cardiovascular: normal peripheral pulses, normal rate, RUE AV fistula + bruit /thrill, CL LIJ Abdomen: normal bowel sounds, soft, non tender Extremities: multiple tattoos BUE Neurologic/Psychiatric: awake, responsive Musculoskeletal: normal muscle bulk Microbiology Date/Time Source Procedure Growth Status 03/04/18 19:50 Blood Blood Culture - Preliminary Staphylococcus Aureus Resulted 03/04/18 19:40 Blood Blood Culture - Preliminary Staphylococcus Aureus Resulted 03/04/18 15:20 Arm Right Gram Stain - Final Resulted 03/04/18 15:20 Aerobic Culture - Preliminary Staphylococcus Aureus Resulted 03/04/18 15:20 Arm Right Anaerobic Culture Pending Resulted Laboratory Tests Test 03/06/18 05:00 White Blood Count 8.7 K/UL (4.8-10.8) Red Blood Count 2.45 M/UL (4.70-6.10) L Hemoglobin 7.5 G/DL (14.2-18.0) L Hematocrit 23.1 % (42.0-52.0) L Mean Corpuscular Volume 94 FL (80-99) Mean Corpuscular Hemoglobin 30.7 PG (27.0-31.0) Mean Corpuscular Hemoglobin Concent 32.5 G/DL (32.0-36.0) Red Cell Distribution Width 18.9 % (11.6-14.8) H Platelet Count 118 K/UL (150-450) L Mean Platelet Volume 7.6 FL (6.5-10.1) Neutrophils (%) (Auto) % (45.0-75.0) Lymphocytes (%) (Auto) % (20.0-45.0) Monocytes (%) (Auto) % (1.0-10.0) Eosinophils (%) (Auto) % (0.0-3.0) Basophils (%) (Auto) % (0.0-2.0) Differential Total Cells Counted 100 Neutrophils % (Manual) 81 % (45-75) H Lymphocytes % (Manual) 11 % (20-45) L Monocytes % (Manual) 5 % (1-10) Eosinophils % (Manual) 3 % (0-3) Basophils % (Manual) 0 % (0-2) Band Neutrophils 0 % (0-8) Platelet Estimate Decreased L Platelet Morphology Normal Hypochromasia 1+ Anisocytosis 1+ Prothrombin Time 12.4 SEC (9.30-11.50) H Prothromb Time International Ratio 1.2 (0.9-1.1) H Activated Partial Thromboplast Time 33 SEC (23-33) Sodium Level 138 MMOL/L (136-145) Potassium Level 3.5 MMOL/L (3.5-5.1) Chloride Level 95 MMOL/L (98-107) L Carbon Dioxide Level 30 MMOL/L (21-32) Anion Gap 13 mmol/L (5-15) Blood Urea Nitrogen 70 mg/dL (7-18) H Creatinine 9.6 MG/DL (0.55-1.30) H Estimat Glomerular Filtration Rate 5.5 mL/min (>60) Glucose Level 84 MG/DL (74-106) Calcium Level 7.9 MG/DL (8.5-10.1) L Current Medications Medications (Trade) Dose Ordered Sig/Blessing Route PRN Reason Start Time Stop Time Status Last Admin Dose Admin Acetaminophen (Tylenol) 500 mg 3XW PRN ORAL WITH DIALYSIS 03/01/18 09:00 03/27/18 08:59 Acetaminophen (Tylenol) 650 mg Q4H PRN RECTAL Mild Pain/Temp > 100.5 03/01/18 01:15 03/26/18 17:14 Acetaminophen (Tylenol) 650 mg Q6H PRN ORAL Mild Pain/Temp > 100.5 02/28/18 23:00 03/25/18 10:59 03/01/18 03:47 Albuterol/ Ipratropium (Albuterol/ Ipratropium) 3 ml Q4H PRN HHN Shortness of Breath 03/03/18 11:15 03/08/18 11:14 03/05/18 20:36 Ceftaroline Fosamil 200 mg/ Sodium Chloride 55 ml @ 55 mls/hr EVERY 12 HOURS IVPB 03/04/18 18:00 03/11/18 17:59 03/06/18 09:43 Chlorhexidine Gluconate (Miriam-Hex 2%) 1 applic DAILY@2000 TOPIC 03/01/18 20:00 03/28/18 19:59 03/05/18 20:43 Clonidine HCl (Catapres Tab) 0.1 mg EVERY 4 HOURS PRN ORAL FOR BP > 160. 03/01/18 01:00 03/25/18 10:44 Daptomycin 450 mg/ Sodium Chloride 110 ml @ 200 mls/hr Q48H IV 03/04/18 14:00 03/11/18 13:59 03/04/18 17:22 Diphenhydramine HCl (Benadryl) 50 mg Q6H PRN ORAL Itching 02/28/18 23:00 03/25/18 10:59 03/02/18 15:11 Docusate Sodium (Colace) 100 mg THREE TIMES A DAY ORAL 03/01/18 18:00 03/31/18 17:59 03/05/18 17:32 Epoetin Alfonzo (Procrit (for ESRD on dialysis)) 10,000 units SUN-SUN-SUN SUBQ 03/01/18 21:00 03/27/18 20:59 03/04/18 20:10 Haloperidol Lactate (Haldol) 5 mg Q4H PRN IM AGITATION 02/28/18 23:00 03/25/18 10:59 03/06/18 02:07 Lansoprazole (Prevacid) 30 mg DAILY@0730 ORAL 03/01/18 07:30 03/31/18 07:29 03/05/18 06:35 Nicotine (Nicoderm) 1 patch Q24H TDERMAL 03/01/18 09:00 03/26/18 08:59 03/05/18 10:24 Oxycodone/ Acetaminophen (Percocet 5-325) 1 tab Q4H PRN ORAL Severe Pain (Pain Scale 7-10) 03/01/18 01:30 03/07/18 09:29 03/06/18 08:17 Prochlorperazine (Compazine) 10 mg Q6H PRN IVP Nausea & Vomiting 02/28/18 23:00 03/25/18 10:59 Quetiapine Fumarate (SEROquel) 25 mg QHS ORAL 03/01/18 21:00 03/25/18 20:59 03/05/18 20:43 Sevelamer Carbonate (Renvela) 1,600 mg TID@0730,1130,1730 ORAL 03/04/18 11:30 04/01/18 07:29 03/06/18 08:16 Latosha Contreras M.D. March 06, 2018 12:03
--- NOTE | 2018-03-06 12:10 | Pre-Procedure Note/Attestation ---
Pre-Procedure Note/Attestation Complete Prior to Procedure Planned Procedure: not applicable Procedure Narrative: egd Indications for Procedure Pre-Operative Diagnosis: anemia Attestation I attest that I discussed the nature of the procedure; its benefits; risks and complications; and alternatives (and the risks and benefits of such alternatives ), prior to the procedure, with the patient (or the patient's legal admitting representative). I attest that, if there was a reasonable possibility of needing a blood transfusion, the patient (or the patient's legal admitting representative) was given the [facility] standardized written summary, pursuant to the [place] Blood Safety Act ([place] Health and Safety Code # 1645, as amended). I attest that I re-evaluated the patient just prior to the surgery and that there has been no change in the patient's H&P, except as documented below: Tushar Matos MD March 06, 2018 12:10
[2018-03-06] MEDS ORDERED: NS 500ML IVPB ONE (12:25)
[2018-03-06] MEDS ORDERED: Propofol 200mg/20ml IV ONE (12:30)
[2018-03-06] MEDS ORDERED: Lidocaine 1% MPF 10mg/ml 5ml ONE (12:30)
--- NOTE | 2018-03-06 12:45 | Endoscopy Procedure Note ---
Endoscopy Procedure Note General Indication for Procedure: anemia Procedures Performed: EGD Operative Findings/Diagnosis: gastric poloyp Specimen: yes Pt Tolerated Procedure Well: Yes Estimated Blood Loss: none Anesthesia Anesthesiologist: shahla Anesthesia: MAC Inserted Devices Implant(s) used?: No GI Core Measures 50 yrs or older w/o bx or poly: Not Applicable 10yrs. F/U not recommended: Not Applicable Tushar Matos MD March 06, 2018 12:45
[2018-03-06] MEDS ORDERED: Midazolam 2mg/2ml Inj IVP PRN (13:00)
[2018-03-06] MEDS ORDERED: Atropine Inj 1mg/10ml Syr IV PRN (13:00)
[2018-03-06] MEDS ORDERED: fentaNYL 100 mcg/2 mL IV PRN (13:00)
[2018-03-06] MEDS ORDERED: DiphenhydrAMINE 50mg/ml Inj IVP PRN (13:00)
--- NOTE | 2018-03-06 13:48 | Immediate Post-Op Evaluation ---
Immediate Post-Op Evalulation Immediate Post-Op Evalulation Procedure: egd Date of Evaluation: March 06, 2018 Time of Evaluation: 12:59 IV Fluids: 200ml 0.9ns Blood Products: none Estimated Blood Loss: negligible Blood Pressure Systolic: 98 Blood Pressure Diastolic: 48 Pulse Rate: 61 Respiratory Rate: 18 O2 Sat by Pulse Oximetry: 100 Temperature (Fahrenheit): 97.4 Pain Score (1-10): 0 Nausea: No Vomiting: No Complications none Patient Status: awake, reacts, patent Hydration Status: adequate Drug: Danica Tompkins MD March 06, 2018 13:48
--- NOTE | 2018-03-06 13:49 | 48 Hour Post Anesthesia Eval ---
Post Anesthesia Evaluation Procedure: egd Date of Evaluation: March 06, 2018 Time of Evaluation: 13:01 Blood Pressure Systolic: 98 0: 50 Pulse Rate: 69 Respiratory Rate: 18 Temperature (Fahrenheit): 97.4 O2 Sat by Pulse Oximetry: 100 Airway: patent Nausea: No Vomiting: No Pain Intensity: 0 Hydration Status: adequate Cardiopulmonary Status: stable Mental Status/LOC: patient returned to baseline Post-Anesthesia Complications: none Follow-up care needed: N/A Danica Knutson MD March 06, 2018 13:49
--- NOTE | 2018-03-06 14:29 | General Progress Note ---
Assessment/Plan Problem List: (1) Abnormal laboratory test result ICD Codes: R89.9 - Unspecified abnormal finding in specimens from other organs , systems and tissues SNOMED: 248511087 (2) ESRD (end stage renal disease) on dialysis ICD Codes: N18.6 - End stage renal disease; Z99.2 - Dependence on renal dialysis SNOMED: 467194392 (3) Hypertension, uncontrolled ICD Codes: I10 - Essential (primary) hypertension SNOMED: 84839597, 31893079 (4) Symptomatic anemia ICD Codes: D64.9 - Anemia, unspecified SNOMED: 493209849 (5) Acute hyperkalemia ICD Codes: E87.5 - Hyperkalemia SNOMED: 5927188 (6) DVT (deep venous thrombosis) ICD Codes: I82.409 - Acute embolism and thrombosis of unspecified deep veins of unspecified lower extremity SNOMED: 169241555 (7) SOB (shortness of breath) ICD Codes: R06.02 - Shortness of breath SNOMED: 067135242 (8) Respiratory failure ICD Codes: J96.90 - Respiratory failure, unspecified, unspecified whether with hypoxia or hypercapnia SNOMED: 950924186 Status: unchanged Assessment/Plan ot pt diet o2 pulm tx gi/heme f/u anticoag pulm transfuse prn cbc bmp am dc snf if clear Subjective Constitutional: Reports: weakness Allergies: Coded Allergies: No Known Allergies (Unverified , 02/02/18) All Systems: reviewed and negative except above Subjective sleepy calm in bed Objective Last 24 Hour Vital Signs Date Time Temp Pulse Resp B/P (MAP) Pulse Ox O2 Delivery O2 Flow Rate FiO2 03/06/18 13:49 207.3 69 18 100 03/06/18 13:48 207.3 61 18 100 03/06/18 13:12 97.2 18 104/57 98 Nasal Cannula 3.0 97.2 03/06/18 13:05 16 99/55 98 Nasal Cannula 3.0 03/06/18 13:00 19 98/50 98 Nasal Cannula 3.0 03/06/18 12:55 21 91/53 97 Nasal Cannula 3.0 03/06/18 12:47 97.4 18 98/48 98 Nasal Cannula 3.0 97.4 03/06/18 11:19 95 Nasal Cannula 2.0 28 03/06/18 11:19 Nasal Cannula 2.0 28 03/06/18 11:19 69 20 Nasal Cannula 2.0 28 03/06/18 08:00 97.8 77 15 134/64 95 Nasal Cannula 3.0 97.8 03/06/18 04:00 Nasal Cannula 3.0 03/06/18 04:00 98.5 85 17 138/78 97 98.5 03/06/18 00:17 98.4 79 18 145/80 98 98.4 03/06/18 00:00 Nasal Cannula 3.0 03/05/18 20:34 78 20 Nasal Cannula 3.0 32 03/05/18 20:34 32 03/05/18 20:34 98 Nasal Cannula 3.0 32 03/05/18 20:34 Nasal Cannula 3.0 32 03/05/18 20:33 78 20 98 Nasal Cannula 3.0 32 03/05/18 20:30 Nasal Cannula 3.0 03/05/18 20:25 98.6 82 20 147/84 98 98.6 03/05/18 17:21 98.8 03/05/18 16:22 98.8 03/05/18 15:48 98.8 77 19 107/59 95 Room Air 98.8 Intake and Output 03/05/18 03/06/18 19:00 07:00 Intake Total 655 ml 295 ml Balance 655 ml 295 ml Intake Oral 600 ml 240 ml IV Total 55 ml 55 ml # Bowel Movements 1 Laboratory Tests 03/06/18 05:00: White Blood Count 8.7, Red Blood Count 2.45L, Hemoglobin 7.5L, Hematocrit 23.1L , Mean Corpuscular Volume 94, Mean Corpuscular Hemoglobin 30.7, Mean Corpuscular Hemoglobin Concent 32.5, Red Cell Distribution Width 18.9H, Platelet Count 118L, Mean Platelet Volume 7.6, Neutrophils (%) (Auto) , Lymphocytes (%) (Auto) , Monocytes (%) (Auto) , Eosinophils (%) (Auto) , Basophils (%) (Auto) , Differential Total Cells Counted 100, Neutrophils % ( Manual) 81H, Lymphocytes % (Manual) 11L, Monocytes % (Manual) 5, Eosinophils % ( Manual) 3, Basophils % (Manual) 0, Band Neutrophils 0, Platelet Estimate DecreasedL, Platelet Morphology Normal, Hypochromasia 1+, Anisocytosis 1+, Prothrombin Time 12.4H, Prothromb Time International Ratio 1.2H, Activated Partial Thromboplast Time 33, Sodium Level 138, Potassium Level 3.5, Chloride Level 95L, Carbon Dioxide Level 30, Anion Gap 13, Blood Urea Nitrogen 70H, Creatinine 9.6H, Estimat Glomerular Filtration Rate 5.5, Glucose Level 84, Calcium Level 7.9L Height (Feet): 5 Height (Inches): 7.00 Weight (Pounds): 125 General Appearance: lethargic EENT: normal ENT inspection Neck: normal alignment Cardiovascular: normal peripheral pulses, normal rate, regular rhythm Respiratory/Chest: chest wall non-tender, lungs clear, normal breath sounds Abdomen: normal bowel sounds, non tender, soft Extremities: normal inspection Edema: no edema noted Arm (L), no edema noted Arm (R), no edema noted Leg (L), no edema noted Leg (R), no edema noted Pedal (L), no edema noted Pedal (R), no edema noted Generalized Neurologic: motor weakness Skin: normal pigmentation, warm/dry Lebron Swift DO March 06, 2018 14:29
--- NOTE | 2018-03-06 14:35 | Pulmonology Progress Note ---
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 titrate fio2 to sat of 92% check Hemoglobin, remains around 7 all meds reviewed Subjective ROS Limited/Unobtainable: No Constitutional: Reports: no symptoms HEENT: Repors: no symptoms Respiratory: Reports: no symptoms Allergies: Coded Allergies: No Known Allergies (Unverified , 02/02/18) Objective Last 24 Hour Vital Signs Date Time Temp Pulse Resp B/P (MAP) Pulse Ox O2 Delivery O2 Flow Rate FiO2 03/06/18 13:49 207.3 69 18 100 03/06/18 13:48 207.3 61 18 100 03/06/18 13:12 97.2 18 104/57 98 Nasal Cannula 3.0 97.2 03/06/18 13:05 16 99/55 98 Nasal Cannula 3.0 03/06/18 13:00 19 98/50 98 Nasal Cannula 3.0 03/06/18 12:55 21 91/53 97 Nasal Cannula 3.0 03/06/18 12:47 97.4 18 98/48 98 Nasal Cannula 3.0 97.4 03/06/18 11:19 95 Nasal Cannula 2.0 28 03/06/18 11:19 Nasal Cannula 2.0 28 03/06/18 11:19 69 20 Nasal Cannula 2.0 28 03/06/18 08:00 97.8 77 15 134/64 95 Nasal Cannula 3.0 97.8 03/06/18 04:00 Nasal Cannula 3.0 03/06/18 04:00 98.5 85 17 138/78 97 98.5 03/06/18 00:17 98.4 79 18 145/80 98 98.4 03/06/18 00:00 Nasal Cannula 3.0 03/05/18 20:34 78 20 Nasal Cannula 3.0 32 03/05/18 20:34 32 03/05/18 20:34 98 Nasal Cannula 3.0 32 03/05/18 20:34 Nasal Cannula 3.0 32 03/05/18 20:33 78 20 98 Nasal Cannula 3.0 32 03/05/18 20:30 Nasal Cannula 3.0 03/05/18 20:25 98.6 82 20 147/84 98 98.6 03/05/18 17:21 98.8 03/05/18 16:22 98.8 03/05/18 15:48 98.8 77 19 107/59 95 Room Air 98.8 Intake and Output 03/05/18 03/06/18 19:00 07:00 Intake Total 655 ml 295 ml Balance 655 ml 295 ml Intake Oral 600 ml 240 ml IV Total 55 ml 55 ml # Bowel Movements 1 Objective General Appearance: WD/WN HEENT: normocephalic, atraumatic Respiratory/Chest: chest wall non-tender, lungs clear Cardiovascular: normal peripheral pulses, normal rate, regular rhythm Abdomen: normal bowel sounds, soft, non tender, no organomegaly, non distended Extremities: no cyanosis, no clubbing, no edema Skin: no rash, no lesions 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 Microbiology Date/Time Source Procedure Growth Status 03/04/18 19:50 Blood Blood Culture - Preliminary Staphylococcus Aureus Resulted 03/04/18 19:40 Blood Blood Culture - Preliminary Staphylococcus Aureus Resulted 03/04/18 15:20 Arm Right Gram Stain - Final Resulted 03/04/18 15:20 Aerobic Culture - Preliminary Staphylococcus Aureus Resulted 03/04/18 15:20 Arm Right Anaerobic Culture Pending Resulted Laboratory Tests 03/06/18 05:00: White Blood Count 8.7, Red Blood Count 2.45L, Hemoglobin 7.5L, Hematocrit 23.1L , Mean Corpuscular Volume 94, Mean Corpuscular Hemoglobin 30.7, Mean Corpuscular Hemoglobin Concent 32.5, Red Cell Distribution Width 18.9H, Platelet Count 118L, Mean Platelet Volume 7.6, Neutrophils (%) (Auto) , Lymphocytes (%) (Auto) , Monocytes (%) (Auto) , Eosinophils (%) (Auto) , Basophils (%) (Auto) , Differential Total Cells Counted 100, Neutrophils % ( Manual) 81H, Lymphocytes % (Manual) 11L, Monocytes % (Manual) 5, Eosinophils % ( Manual) 3, Basophils % (Manual) 0, Band Neutrophils 0, Platelet Estimate DecreasedL, Platelet Morphology Normal, Hypochromasia 1+, Anisocytosis 1+, Prothrombin Time 12.4H, Prothromb Time International Ratio 1.2H, Activated Partial Thromboplast Time 33, Sodium Level 138, Potassium Level 3.5, Chloride Level 95L, Carbon Dioxide Level 30, Anion Gap 13, Blood Urea Nitrogen 70H, Creatinine 9.6H, Estimat Glomerular Filtration Rate 5.5, Glucose Level 84, Calcium Level 7.9L Current Medications Medications (Trade) Dose Ordered Sig/Blessing Route PRN Reason Start Time Stop Time Status Last Admin Dose Admin Acetaminophen (Tylenol) 500 mg 3XW PRN ORAL WITH DIALYSIS 03/01/18 09:00 03/27/18 08:59 Acetaminophen (Tylenol) 650 mg Q4H PRN RECTAL Mild Pain/Temp > 100.5 03/01/18 01:15 03/26/18 17:14 Acetaminophen (Tylenol) 650 mg Q6H PRN ORAL Mild Pain/Temp > 100.5 02/28/18 23:00 03/25/18 10:59 03/01/18 03:47 Al Hydroxide/Mg Hydroxide (Mylanta) 15 ml Q1H PRN ORAL gi upset 03/06/18 13:00 03/06/18 19:00 Albuterol/ Ipratropium (Albuterol/ Ipratropium) 3 ml Q4H PRN HHN Shortness of Breath 03/03/18 11:15 03/08/18 11:14 03/05/18 20:36 Atropine Sulfate (Atropine) 0.5 mg Q5M PRN IV bpm less than 45 03/06/18 13:00 03/06/18 19:00 Ceftaroline Fosamil 200 mg/ Sodium Chloride 55 ml @ 55 mls/hr EVERY 12 HOURS IVPB 03/04/18 18:00 03/11/18 17:59 03/06/18 09:43 Chlorhexidine Gluconate (Miriam-Hex 2%) 1 applic DAILY@2000 TOPIC 03/01/18 20:00 03/28/18 19:59 03/05/18 20:43 Clonidine HCl (Catapres Tab) 0.1 mg EVERY 4 HOURS PRN ORAL FOR BP > 160. 03/01/18 01:00 03/25/18 10:44 Daptomycin 450 mg/ Sodium Chloride 110 ml @ 200 mls/hr Q48H IV 03/04/18 14:00 03/11/18 13:59 03/04/18 17:22 Diphenhydramine HCl (Benadryl) 25 mg Q15M PRN IVP Itching 03/06/18 13:00 03/06/18 19:00 Diphenhydramine HCl (Benadryl) 50 mg Q6H PRN ORAL Itching 02/28/18 23:00 03/25/18 10:59 03/02/18 15:11 Docusate Sodium (Colace) 100 mg THREE TIMES A DAY ORAL 03/01/18 18:00 03/31/18 17:59 03/05/18 17:32 Epoetin Alfonzo (Procrit (for ESRD on dialysis)) 10,000 units SUN-SUN-SUN SUBQ 03/01/18 21:00 03/27/18 20:59 03/04/18 20:10 Fentanyl Citrate (Sublimaze 100 mcg/2 mL) 25 mcg Q10M PRN IV Moderate Pain (Pain Scale 4-6) 03/06/18 13:00 03/06/18 19:00 Haloperidol Lactate (Haldol) 5 mg Q4H PRN IM AGITATION 02/28/18 23:00 03/25/18 10:59 03/06/18 02:07 Hydralazine HCl (Apresoline) 5 mg Q30M PRN IV SBP>160 /DBP>90 03/06/18 13:00 03/06/18 19:00 Lansoprazole (Prevacid) 30 mg DAILY@0730 ORAL 03/01/18 07:30 03/31/18 07:29 03/05/18 06:35 Midazolam HCl (Versed 2mg/2ml vial) 1 mg Q15M PRN IVP For Anxiety 03/06/18 13:00 03/06/18 19:00 Nicotine (Nicoderm) 1 patch Q24H TDERMAL 03/01/18 09:00 03/26/18 08:59 03/05/18 10:24 Ondansetron HCl (Zofran) 4 mg Q1H PRN IVP Nausea & Vomiting 03/06/18 13:00 03/06/18 19:00 Oxycodone/ Acetaminophen (Percocet 5-325) 1 tab Q4H PRN ORAL Severe Pain (Pain Scale 7-10) 03/01/18 01:30 03/07/18 09:29 03/06/18 08:17 Prochlorperazine (Compazine) 10 mg Q6H PRN IVP Nausea & Vomiting 02/28/18 23:00 03/25/18 10:59 Quetiapine Fumarate (SEROquel) 25 mg QHS ORAL 03/01/18 21:00 03/25/18 20:59 03/05/18 20:43 Sevelamer Carbonate (Renvela) 1,600 mg TID@0730,1130,1730 ORAL 03/04/18 11:30 04/01/18 07:29 03/06/18 08:16 Sodium Chloride 1,000 ml @ 10 mls/hr Q24H IVLG 03/06/18 12:46 03/06/18 14:45 Clement Mcleod MD March 06, 2018 14:35
--- NOTE | 2018-03-06 15:38 | Diagnostic Imaging Report ---
Indication: Right arm abscess. Technique: 505 microcuries of Indium labelled WBCs was injected intravenously. Labelling performed using an in-vitro technique. A whole-body bone scan was then performed in anterior and posterior projections after a 24 hour delay. Comparison: None Findings: . Small focus of uptake noted in the right upper arm near the antecubital fossa corresponding to the area of clinical concern. Findings consistent with infection. The exam is negative otherwise. There is marked splenomegaly present. Impression: Small focus of uptake within the lower part of the right upper arm consistent with infection. Findings may represent cellulitis, phlegmon or abscess. Correlate clinically. The patient has an arteriovenous fistula in this location.
[2018-03-06] MEDS: NS IV SCH (15:50)
[2018-03-06] MEDS: DAPTOMYCIN IV SCH (15:50)
--- NOTE | 2018-03-06 16:37 | Nephrology Progress Note ---
Assessment/Plan Problem List: (1) ESRD (end stage renal disease) on dialysis (2) Acute hyperkalemia (3) Hypertension, uncontrolled (4) Left leg DVT (5) Anemia in chronic kidney disease (CKD) Assessment BP stable stop mind altering meds ESRD, on admission missed dialysis . has high K on admission has fistula right arm Sever Anemia h/o Amyloidosis COPD Plan HD as needed next 03/07 stop BP meds- on PRN clonidine only Transfusion as needed Kayexelate as needed BP control, meds adjusted has IVC filter add phos binders Subjective ROS Limited/Unobtainable: No Constitutional: Reports: malaise Objective Objective Last 24 Hour Vital Signs Date Time Temp Pulse Resp B/P (MAP) Pulse Ox O2 Delivery O2 Flow Rate FiO2 03/06/18 14:44 97.4 03/06/18 13:49 207.3 69 18 100 03/06/18 13:48 207.3 61 18 100 03/06/18 13:12 97.2 18 104/57 98 Nasal Cannula 3.0 97.2 03/06/18 13:05 16 99/55 98 Nasal Cannula 3.0 03/06/18 13:00 19 98/50 98 Nasal Cannula 3.0 03/06/18 12:55 21 91/53 97 Nasal Cannula 3.0 03/06/18 12:47 97.4 18 98/48 98 Nasal Cannula 3.0 97.4 03/06/18 11:19 95 Nasal Cannula 2.0 28 03/06/18 11:19 Nasal Cannula 2.0 28 03/06/18 11:19 69 20 Nasal Cannula 2.0 28 03/06/18 08:00 97.8 77 15 134/64 95 Nasal Cannula 3.0 97.8 03/06/18 04:00 Nasal Cannula 3.0 03/06/18 04:00 98.5 85 17 138/78 97 98.5 03/06/18 00:17 98.4 79 18 145/80 98 98.4 03/06/18 00:00 Nasal Cannula 3.0 03/05/18 20:34 78 20 Nasal Cannula 3.0 32 03/05/18 20:34 32 03/05/18 20:34 98 Nasal Cannula 3.0 32 03/05/18 20:34 Nasal Cannula 3.0 32 03/05/18 20:33 78 20 98 Nasal Cannula 3.0 32 03/05/18 20:30 Nasal Cannula 3.0 03/05/18 20:25 98.6 82 20 147/84 98 98.6 03/05/18 17:21 98.8 Intake and Output 03/05/18 03/06/18 19:00 07:00 Intake Total 655 ml 295 ml Balance 655 ml 295 ml Intake Oral 600 ml 240 ml IV Total 55 ml 55 ml # Bowel Movements 1 Laboratory Tests 03/06/18 05:00: White Blood Count 8.7, Red Blood Count 2.45L, Hemoglobin 7.5L, Hematocrit 23.1L , Mean Corpuscular Volume 94, Mean Corpuscular Hemoglobin 30.7, Mean Corpuscular Hemoglobin Concent 32.5, Red Cell Distribution Width 18.9H, Platelet Count 118L, Mean Platelet Volume 7.6, Neutrophils (%) (Auto) , Lymphocytes (%) (Auto) , Monocytes (%) (Auto) , Eosinophils (%) (Auto) , Basophils (%) (Auto) , Differential Total Cells Counted 100, Neutrophils % ( Manual) 81H, Lymphocytes % (Manual) 11L, Monocytes % (Manual) 5, Eosinophils % ( Manual) 3, Basophils % (Manual) 0, Band Neutrophils 0, Platelet Estimate DecreasedL, Platelet Morphology Normal, Hypochromasia 1+, Anisocytosis 1+, Prothrombin Time 12.4H, Prothromb Time International Ratio 1.2H, Activated Partial Thromboplast Time 33, Sodium Level 138, Potassium Level 3.5, Chloride Level 95L, Carbon Dioxide Level 30, Anion Gap 13, Blood Urea Nitrogen 70H, Creatinine 9.6H, Estimat Glomerular Filtration Rate 5.5, Glucose Level 84, Calcium Level 7.9L Height (Feet): 5 Height (Inches): 7.00 Weight (Pounds): 125 General Appearance: no apparent distress Objective no change DALTON ROSENTHAL March 06, 2018 16:37
--- NOTE | 2018-03-06 16:45 | Procedure Note ---
DATE OF PROCEDURE: 03/06/2018 SURGEON: Tushar Matos M.D. PROCEDURE: Upper endoscopy with snare polypectomy. ANESTHESIA: Per Dr. Ricks. INSTRUMENT: Olympus adult flexible endoscope. INDICATIONS: Needs endoscopy prior to AMAURI per Cardiology request. The procedure, risks, benefits, and possible consequences, including hemorrhage, aspiration, perforation and infection, and alternative treatments, were explained to the patient/legal guardian by Dr. Tushar Matos and the patient/legal guardian understood and accepted these risks. DESCRIPTION OF PROCEDURE: After informed consent was obtained and the patient was adequately sedated, the Olympus upper endoscope was advanced through the mouth into the second portion of the duodenum and retroflexion maneuver was performed in the stomach. The patient has mild evidence of duodenitis in the body of the stomach. Proximal body where there was a polyp, pedunculated, measured roughly about 8 mm. This polyp was removed with a snare polypectomy technique. There was no evidence of any esophageal pathology. At this time, the scope was retrieved and procedure was terminated. SUMMARY OF FINDINGS: 1. Duodenitis. 2. Gastritis. 3. Gastric polyp about 8 mm removed with the snare polypectomy technique. RECOMMENDATIONS: Follow up biopsies and treat accordingly. I want to thank Dr. Lebron Swift for this kind referral. Tushar Matos M.D. DR: CARLOS ENRIQUE JOB#: [id number] CC: Lebron Swift D.O.
[2018-03-06] MEDS: Dyna-Hex 2% Top Sol 2oz TOPIC SCH (19:47)
--- NOTE | 2018-03-06 20:05 | Cardiology Progress Note ---
Assessment/Plan Assessment/Plan 1. Hypertension. 2. End-stage renal disease, on hemodialysis. 3. Anemia. 4. History of GI bleed secondary to AVMs. 5. Acute deep venous thrombosis, left leg. 6. History of femoral neck fracture 7. acute diastolic heart failure 8. persistent bacteremai felt to be due to dialysis catheter 9. thrombocytopenia imoproved ctpa neg for pe has ivc filter inplace already dilaysis / uf tele noted sinus had recurrent anemia now s/p prbc tx av and mv thickening noted on repeat echo persistent bacteremia is of concern pt awake mentation improved id input noted regarding persitent bacteremia will try to sched new for either tomorrow or nex day after noon egd neg d/w dr larsen Subjective Cardiovascular: Denies: chest pain Respiratory: Denies: shortness of breath Gastrointestinal/Abdominal: Denies: abdomen distended Genitourinary: Denies: burning Objective Last 24 Hour Vital Signs Date Time Temp Pulse Resp B/P (MAP) Pulse Ox O2 Delivery O2 Flow Rate FiO2 03/06/18 19:15 Nasal Cannula 2.0 28 03/06/18 19:15 97 Nasal Cannula 2.0 28 03/06/18 19:15 80 20 Nasal Cannula 2.0 28 03/06/18 16:00 97.9 79 18 130/71 96 Room Air 97.9 03/06/18 14:44 97.4 03/06/18 13:49 207.3 69 18 100 03/06/18 13:48 207.3 61 18 100 03/06/18 13:12 97.2 18 104/57 98 Nasal Cannula 3.0 97.2 03/06/18 13:05 16 99/55 98 Nasal Cannula 3.0 03/06/18 13:00 19 98/50 98 Nasal Cannula 3.0 03/06/18 12:55 21 91/53 97 Nasal Cannula 3.0 03/06/18 12:47 97.4 18 98/48 98 Nasal Cannula 3.0 97.4 03/06/18 11:19 95 Nasal Cannula 2.0 28 03/06/18 11:19 Nasal Cannula 2.0 28 03/06/18 11:19 69 20 Nasal Cannula 2.0 28 03/06/18 08:00 97.8 77 15 134/64 95 Nasal Cannula 3.0 97.8 03/06/18 04:00 Nasal Cannula 3.0 03/06/18 04:00 98.5 85 17 138/78 97 98.5 03/06/18 00:17 98.4 79 18 145/80 98 98.4 03/06/18 00:00 Nasal Cannula 3.0 03/05/18 20:34 78 20 Nasal Cannula 3.0 32 03/05/18 20:34 32 03/05/18 20:34 98 Nasal Cannula 3.0 32 03/05/18 20:34 Nasal Cannula 3.0 32 03/05/18 20:33 78 20 98 Nasal Cannula 3.0 32 03/05/18 20:30 Nasal Cannula 3.0 03/05/18 20:25 98.6 82 20 147/84 98 98.6 General Appearance: no apparent distress, alert Cardiovascular: normal rate, regular rhythm, systolic murmur Respiratory/Chest: lungs clear Abdomen: normal bowel sounds, non tender, soft Extremities: no swelling Intake and Output 03/05/18 03/06/18 19:00 07:00 Intake Total 655 ml 295 ml Balance 655 ml 295 ml Intake Oral 600 ml 240 ml IV Total 55 ml 55 ml # Bowel Movements 1 Laboratory Tests Test 03/06/18 05:00 White Blood Count 8.7 K/UL (4.8-10.8) Red Blood Count 2.45 M/UL (4.70-6.10) L Hemoglobin 7.5 G/DL (14.2-18.0) L Hematocrit 23.1 % (42.0-52.0) L Mean Corpuscular Volume 94 FL (80-99) Mean Corpuscular Hemoglobin 30.7 PG (27.0-31.0) Mean Corpuscular Hemoglobin Concent 32.5 G/DL (32.0-36.0) Red Cell Distribution Width 18.9 % (11.6-14.8) H Platelet Count 118 K/UL (150-450) L Mean Platelet Volume 7.6 FL (6.5-10.1) Neutrophils (%) (Auto) % (45.0-75.0) Lymphocytes (%) (Auto) % (20.0-45.0) Monocytes (%) (Auto) % (1.0-10.0) Eosinophils (%) (Auto) % (0.0-3.0) Basophils (%) (Auto) % (0.0-2.0) Differential Total Cells Counted 100 Neutrophils % (Manual) 81 % (45-75) H Lymphocytes % (Manual) 11 % (20-45) L Monocytes % (Manual) 5 % (1-10) Eosinophils % (Manual) 3 % (0-3) Basophils % (Manual) 0 % (0-2) Band Neutrophils 0 % (0-8) Platelet Estimate Decreased L Platelet Morphology Normal Hypochromasia 1+ Anisocytosis 1+ Prothrombin Time 12.4 SEC (9.30-11.50) H Prothromb Time International Ratio 1.2 (0.9-1.1) H Activated Partial Thromboplast Time 33 SEC (23-33) Sodium Level 138 MMOL/L (136-145) Potassium Level 3.5 MMOL/L (3.5-5.1) Chloride Level 95 MMOL/L (98-107) L Carbon Dioxide Level 30 MMOL/L (21-32) Anion Gap 13 mmol/L (5-15) Blood Urea Nitrogen 70 mg/dL (7-18) H Creatinine 9.6 MG/DL (0.55-1.30) H Estimat Glomerular Filtration Rate 5.5 mL/min (>60) Glucose Level 84 MG/DL (74-106) Calcium Level 7.9 MG/DL (8.5-10.1) L Microbiology Date/Time Source Procedure Growth Status 03/04/18 19:50 Blood Blood Culture - Preliminary Staphylococcus Aureus Resulted 03/04/18 19:40 Blood Blood Culture - Preliminary Staphylococcus Aureus Resulted 03/04/18 15:20 Arm Right Gram Stain - Final Resulted 03/04/18 15:20 Aerobic Culture - Preliminary Staphylococcus Aureus Resulted 03/04/18 15:20 Arm Right Anaerobic Culture Pending Resulted Jony Becker MD March 06, 2018 20:05
[2018-03-06] MEDS ORDERED: NS 275ml ONE (20:22)
[2018-03-06] MEDS ORDERED: Tubing IV Secondary IV ONE (20:22)
[2018-03-06] MEDS: Epogen (for ESRD on dialysis) SUBQ SCH (21:44)
[2018-03-07] VITALS (11 sets, daily range): BP systolic 117–149; BP diastolic 60–71
[2018-03-07] MEDS: oxyCODONE HCL/Acetaminophen 5/325mg ORAL PRN (03:41)
--- NOTE | 2018-03-07 07:58 | General Progress Note ---
Assessment/Plan Assessment/Plan # Numerous small to borderline mediastinal and bilateral axillary lymph nodes. Prominent subcarinal lymph node. Meet pathological size. Imaging has been reviewed for the last two CAT scans --> further recs per pulm in regards to management, reimaging in future, versus more interventional such as biopsy --> appreciate pulm/cc recommendations #. Acute deep venous thrombosis of left lower extremity. --> Status post inferior vena cava filter placement. --> given persistent low h/h and fact that has ivc filter, coumadin has been discontinued --> hold off on further anticoagulation given low h/h #. Anemia of gastrointestinal bleed. --> transfuse if hgb <7, workup has been reviewed --> Appreciate gi recs, has been seen by them --> had endoscopy but location unknown where he had it #. Thrombocytopenia baseline likely plt count of >50-100k --> likely related to splenomegaly and hepatitis C --> monitor closely for bleed if downtrends though this is less likely --> transfuse to keep plt >20k #. Anemia of kidney disease. 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 Anemia of chronic disease is s/p blood transfusion. #. End-stage renal disease, hemodialysis dependent. --> epo to continue 3x a week #. Leukocytosis -- management per ID --> WBC scan pending as well is neg, then AMAURI #. History of femoral neck fracture. On pain control. #. Acute respiratory failure. #. Hep C ++ Subjective Date patient seen: March 07, 2018 Allergies: Coded Allergies: No Known Allergies (Unverified , 02/02/18) All Systems: reviewed and negative except above Subjective No overnight events reported. No s/s of acute medical distress. Continue supportive care. Objective Last 24 Hour Vital Signs Date Time Temp Pulse Resp B/P (MAP) Pulse Ox O2 Delivery O2 Flow Rate FiO2 03/07/18 05:57 Nasal Cannula 2.0 03/07/18 04:40 97.9 03/07/18 04:00 98.1 79 19 117/60 98 Nasal Cannula 2.0 98.1 03/07/18 03:41 97.9 03/07/18 02:07 Nasal Cannula 2.0 03/07/18 00:00 97.9 79 16 134/63 95 Nasal Cannula 2.0 97.9 03/06/18 21:00 Nasal Cannula 2.0 03/06/18 20:00 97.5 80 20 131/61 94 Room Air 97.5 03/06/18 19:15 Nasal Cannula 2.0 28 03/06/18 19:15 97 Nasal Cannula 2.0 28 03/06/18 19:15 80 20 Nasal Cannula 2.0 28 03/06/18 16:00 97.9 79 18 130/71 96 Room Air 97.9 03/06/18 14:44 97.4 03/06/18 13:49 207.3 69 18 100 03/06/18 13:48 207.3 61 18 100 03/06/18 13:12 97.2 18 104/57 98 Nasal Cannula 3.0 97.2 03/06/18 13:05 16 99/55 98 Nasal Cannula 3.0 03/06/18 13:00 19 98/50 98 Nasal Cannula 3.0 03/06/18 12:55 21 91/53 97 Nasal Cannula 3.0 03/06/18 12:47 97.4 18 98/48 98 Nasal Cannula 3.0 97.4 03/06/18 11:19 95 Nasal Cannula 2.0 28 03/06/18 11:19 Nasal Cannula 2.0 28 03/06/18 11:19 69 20 Nasal Cannula 2.0 28 03/06/18 08:00 97.8 77 15 134/64 95 Nasal Cannula 3.0 97.8 Intake and Output 03/06/18 03/07/18 19:00 07:00 Intake Total 775 ml 55 ml Output Total 0 ml Balance 775 ml 55 ml IV Total 455 ml 55 ml Other 320 ml Estimated Blood Loss 0 ml # Voids 2 Height (Feet): 5 Height (Inches): 7.00 Weight (Pounds): 134 General Appearance: no apparent distress Tristen Lewis MD March 07, 2018 07:58
--- NOTE | 2018-03-07 08:54 | General Progress Note ---
Assessment/Plan Assessment/Plan (1) Right hip pain (2) Right hip Fracture (3) S/p ORIF of right hip Pt will be continued on Percocet HOLD OPIOIDS FOR OVERSEDATION OR SBP<90 OR DBP<60 OR O2SAT<92% OR RR<12 D/w Dr. Childers he concurred. Subjective Date patient seen: March 07, 2018 Time patient seen: 08:15 - am Allergies: Coded Allergies: No Known Allergies (Unverified , 02/02/18) Subjective Constitutional: Reports: weakness HEENT: Reports: no symptoms Cardiovascular: Reports: no symptoms Respiratory: Reports: shortness of breath Gastrointestinal/Abdominal: Reports: no symptoms Genitourinary: Reports: no symptoms Neurologic/Psychiatric: Reports: weakness Endocrine: Reports: no symptoms Hematologic/Lymphatic: Reports: no symptoms Subjective Patient is in bed no signs of distress or pain. He is comfortable pain is at a moderate level as per patient. Objective Last 24 Hour Vital Signs Date Time Temp Pulse Resp B/P (MAP) Pulse Ox O2 Delivery O2 Flow Rate FiO2 03/07/18 08:00 Nasal Cannula 2.0 96 03/07/18 08:00 97.8 75 20 121/61 97.8 03/07/18 05:57 Nasal Cannula 2.0 03/07/18 04:40 97.9 03/07/18 04:00 98.1 79 19 117/60 98 Nasal Cannula 2.0 98.1 03/07/18 03:41 97.9 03/07/18 02:07 Nasal Cannula 2.0 03/07/18 00:00 97.9 79 16 134/63 95 Nasal Cannula 2.0 97.9 03/06/18 21:00 Nasal Cannula 2.0 03/06/18 20:00 97.5 80 20 131/61 94 Room Air 97.5 03/06/18 19:15 Nasal Cannula 2.0 28 03/06/18 19:15 97 Nasal Cannula 2.0 28 03/06/18 19:15 80 20 Nasal Cannula 2.0 28 03/06/18 16:00 97.9 79 18 130/71 96 Room Air 97.9 03/06/18 14:44 97.4 03/06/18 13:49 207.3 69 18 100 03/06/18 13:48 207.3 61 18 100 03/06/18 13:12 97.2 18 104/57 98 Nasal Cannula 3.0 97.2 03/06/18 13:05 16 99/55 98 Nasal Cannula 3.0 03/06/18 13:00 19 98/50 98 Nasal Cannula 3.0 03/06/18 12:55 21 91/53 97 Nasal Cannula 3.0 03/06/18 12:47 97.4 18 98/48 98 Nasal Cannula 3.0 97.4 03/06/18 11:19 95 Nasal Cannula 2.0 28 03/06/18 11:19 Nasal Cannula 2.0 28 03/06/18 11:19 69 20 Nasal Cannula 2.0 28 Intake and Output 03/06/18 03/07/18 19:00 07:00 Intake Total 775 ml 55 ml Output Total 0 ml Balance 775 ml 55 ml IV Total 455 ml 55 ml Other 320 ml Estimated Blood Loss 0 ml # Voids 2 Height (Feet): 5 Height (Inches): 7.00 Weight (Pounds): 134 Objective Neck: non-tender, normal alignment, supple, normal inspection Respiratory/Chest: decreased breath sounds Cardiovascular/Chest: normal rate, regular rhythm Abdomen: non tender, soft, no organomegaly Extremities: inflammation - right hip tenderness to palpation Skin Exam: normal pigmentation, warm/dry KANWAL CURRAN March 07, 2018 08:54
[2018-03-07] MEDS: Docusate 100mg cap ORAL SCH ×3 (09:00→18:00)
[2018-03-07 09:03] LABS: HEMATOCRIT 23.5 % (42.0-52.0); HEMOGLOBIN 7.7 G/DL (14.2-18.0); MEAN CORPUSCULAR VOLUME 95 FL (80-99); PLATELET COUNT 113 K/UL (150-450); RED BLOOD COUNT 2.49 M/UL (4.70-6.10); RED CELL DISTRIBUTION WIDTH 17.6 % (11.6-14.8); WHITE BLOOD COUNT 6.9 K/UL (4.8-10.8)
[2018-03-07 09:11] LABS: ANION GAP 13 mmol/L (5-15); BLOOD UREA NITROGEN 83 mg/dL (7-18); CALCIUM 7.7 MG/DL (8.5-10.1); CARBON DIOXIDE 29 MMOL/L (21-32); CHLORIDE 96 MMOL/L (98-107); POTASSIUM 4.3 MMOL/L (3.5-5.1); SODIUM 138 MMOL/L (136-145)
[2018-03-07] MEDS: Ceftaroline 200 MG in NS 55 ML IVPB SCH ×2 (09:44→21:23)
[2018-03-07 09:51] LABS: PHOSPHORUS 9.3 MG/DL (2.5-4.9)
--- NOTE | 2018-03-07 11:16 | GI Progress Note ---
Assessment/Plan Problems: (1) Abnormal LFTs ICD Codes: R94.5 - Abnormal results of liver function studies SNOMED: 338610488 (2) Symptomatic anemia ICD Codes: D64.9 - Anemia, unspecified SNOMED: 454947465 (3) ESRD (end stage renal disease) on dialysis ICD Codes: N18.6 - End stage renal disease; Z99.2 - Dependence on renal dialysis SNOMED: 725638410 Status: stable Status Narrative Discussed with Dr. Matos. Assessment/Plan iron panel WNL OB stool negative x3 Hep C positive >> patient treatment SUMMARY OF FINDINGS: 1. Duodenitis. 2. Gastritis. 3. Gastric polyp about 8 mm removed with the snare polypectomy technique. RECOMMENDATIONS: plan for AMAURI Follow up biopsies and treat accordingly. fu nephro recs monitor H&H, prn transfusions ppi thiamine fu labs The patient was seen and examined at bedside and all new and available data was reviewed in the patients chart. I agree with the above findings, impression and plan. (Patient seen earlier today. Signature stamp does not reflect patient encounter time.). - Tushar Matos MD Subjective Subjective denies abdominal pain Objective Last 24 Hour Vital Signs Date Time Temp Pulse Resp B/P (MAP) Pulse Ox O2 Delivery O2 Flow Rate FiO2 03/07/18 09:53 Nasal Cannula 2.0 28 03/07/18 09:52 95 Nasal Cannula 2.0 28 03/07/18 09:51 73 18 Nasal Cannula 2.0 28 03/07/18 08:00 Nasal Cannula 2.0 96 03/07/18 08:00 97.8 75 20 121/61 97.8 03/07/18 05:57 Nasal Cannula 2.0 03/07/18 04:40 97.9 03/07/18 04:00 98.1 79 19 117/60 98 Nasal Cannula 2.0 98.1 03/07/18 03:41 97.9 03/07/18 02:07 Nasal Cannula 2.0 03/07/18 00:00 97.9 79 16 134/63 95 Nasal Cannula 2.0 97.9 03/06/18 21:00 Nasal Cannula 2.0 03/06/18 20:00 97.5 80 20 131/61 94 Room Air 97.5 03/06/18 19:15 Nasal Cannula 2.0 28 03/06/18 19:15 97 Nasal Cannula 2.0 28 03/06/18 19:15 80 20 Nasal Cannula 2.0 28 03/06/18 16:00 97.9 79 18 130/71 96 Room Air 97.9 03/06/18 14:44 97.4 03/06/18 13:49 207.3 69 18 100 03/06/18 13:48 207.3 61 18 100 03/06/18 13:12 97.2 18 104/57 98 Nasal Cannula 3.0 97.2 03/06/18 13:05 16 99/55 98 Nasal Cannula 3.0 03/06/18 13:00 19 98/50 98 Nasal Cannula 3.0 03/06/18 12:55 21 91/53 97 Nasal Cannula 3.0 03/06/18 12:47 97.4 18 98/48 98 Nasal Cannula 3.0 97.4 03/06/18 11:19 95 Nasal Cannula 2.0 28 03/06/18 11:19 Nasal Cannula 2.0 28 03/06/18 11:19 69 20 Nasal Cannula 2.0 28 Intake and Output 03/06/18 03/07/18 19:00 07:00 Intake Total 775 ml 55 ml Output Total 0 ml Balance 775 ml 55 ml IV Total 455 ml 55 ml Other 320 ml Estimated Blood Loss 0 ml # Voids 2 Laboratory Tests Test 03/07/18 08:00 White Blood Count 6.9 K/UL (4.8-10.8) Red Blood Count 2.49 M/UL (4.70-6.10) L Hemoglobin 7.7 G/DL (14.2-18.0) L Hematocrit 23.5 % (42.0-52.0) L Mean Corpuscular Volume 95 FL (80-99) Mean Corpuscular Hemoglobin 30.9 PG (27.0-31.0) Mean Corpuscular Hemoglobin Concent 32.7 G/DL (32.0-36.0) Red Cell Distribution Width 17.6 % (11.6-14.8) H Platelet Count 113 K/UL (150-450) L Mean Platelet Volume 6.4 FL (6.5-10.1) L Neutrophils (%) (Auto) % (45.0-75.0) Lymphocytes (%) (Auto) % (20.0-45.0) Monocytes (%) (Auto) % (1.0-10.0) Eosinophils (%) (Auto) % (0.0-3.0) Basophils (%) (Auto) % (0.0-2.0) Neutrophils % (Manual) Pending Lymphocytes % (Manual) Pending Platelet Estimate Pending Platelet Morphology Pending Sodium Level 138 MMOL/L (136-145) Potassium Level 4.3 MMOL/L (3.5-5.1) Chloride Level 96 MMOL/L (98-107) L Carbon Dioxide Level 29 MMOL/L (21-32) Anion Gap 13 mmol/L (5-15) Blood Urea Nitrogen 83 mg/dL (7-18) H Creatinine 11.0 MG/DL (0.55-1.30) H Estimat Glomerular Filtration Rate 4.7 mL/min (>60) Glucose Level 84 MG/DL (74-106) Calcium Level 7.7 MG/DL (8.5-10.1) L Phosphorus Level 9.3 MG/DL (2.5-4.9) H Magnesium Level 2.5 MG/DL (1.8-2.4) H Height (Feet): 5 Height (Inches): 7.00 Weight (Pounds): 134 General Appearance: WD/WN, no apparent distress, alert Cardiovascular: normal rate Respiratory/Chest: normal breath sounds, no respiratory distress Abdominal Exam: normal bowel sounds, non tender, soft Extremities: normal range of motion, non-tender Meliton Aldana NP March 07, 2018 11:16
--- NOTE | 2018-03-07 11:19 | Nephrology Progress Note ---
Assessment/Plan Problem List: (1) ESRD (end stage renal disease) on dialysis (2) Acute hyperkalemia (3) Hypertension, uncontrolled (4) Left leg DVT (5) Anemia in chronic kidney disease (CKD) Assessment BP stable stop mind altering meds ESRD, on admission missed dialysis . has high K on admission has fistula right arm Sever Anemia h/o Amyloidosis COPD Plan HD as needed next 03/07 stop BP meds- on PRN clonidine only Transfusion as needed Kayexelate as needed BP control, meds adjusted has IVC filter add phos binders Subjective ROS Limited/Unobtainable: No Constitutional: Reports: malaise Objective Objective Last 24 Hour Vital Signs Date Time Temp Pulse Resp B/P (MAP) Pulse Ox O2 Delivery O2 Flow Rate FiO2 03/07/18 09:53 Nasal Cannula 2.0 28 03/07/18 09:52 95 Nasal Cannula 2.0 28 03/07/18 09:51 73 18 Nasal Cannula 2.0 28 03/07/18 08:00 Nasal Cannula 2.0 96 03/07/18 08:00 97.8 75 20 121/61 97.8 03/07/18 05:57 Nasal Cannula 2.0 03/07/18 04:40 97.9 03/07/18 04:00 98.1 79 19 117/60 98 Nasal Cannula 2.0 98.1 03/07/18 03:41 97.9 03/07/18 02:07 Nasal Cannula 2.0 03/07/18 00:00 97.9 79 16 134/63 95 Nasal Cannula 2.0 97.9 03/06/18 21:00 Nasal Cannula 2.0 03/06/18 20:00 97.5 80 20 131/61 94 Room Air 97.5 03/06/18 19:15 Nasal Cannula 2.0 28 03/06/18 19:15 97 Nasal Cannula 2.0 28 03/06/18 19:15 80 20 Nasal Cannula 2.0 28 03/06/18 16:00 97.9 79 18 130/71 96 Room Air 97.9 03/06/18 14:44 97.4 03/06/18 13:49 207.3 69 18 100 03/06/18 13:48 207.3 61 18 100 03/06/18 13:12 97.2 18 104/57 98 Nasal Cannula 3.0 97.2 03/06/18 13:05 16 99/55 98 Nasal Cannula 3.0 03/06/18 13:00 19 98/50 98 Nasal Cannula 3.0 03/06/18 12:55 21 91/53 97 Nasal Cannula 3.0 03/06/18 12:47 97.4 18 98/48 98 Nasal Cannula 3.0 97.4 Intake and Output 03/06/18 03/07/18 18:59 06:59 Intake Total 775 ml 55 ml Output Total 0 ml Balance 775 ml 55 ml IV Total 455 ml 55 ml Other 320 ml Estimated Blood Loss 0 ml # Voids 2 Laboratory Tests 03/07/18 08:00: White Blood Count 6.9, Red Blood Count 2.49L, Hemoglobin 7.7L, Hematocrit 23.5L , Mean Corpuscular Volume 95, Mean Corpuscular Hemoglobin 30.9, Mean Corpuscular Hemoglobin Concent 32.7, Red Cell Distribution Width 17.6H, Platelet Count 113L, Mean Platelet Volume 6.4L, Neutrophils (%) (Auto) , Lymphocytes (%) (Auto) , Monocytes (%) (Auto) , Eosinophils (%) (Auto) , Basophils (%) (Auto) , Neutrophils % (Manual) [Pending], Lymphocytes % (Manual) [Pending], Platelet Estimate [Pending], Platelet Morphology [Pending], Sodium Level 138, Potassium Level 4.3, Chloride Level 96L, Carbon Dioxide Level 29, Anion Gap 13, Blood Urea Nitrogen 83H, Creatinine 11.0H, Estimat Glomerular Filtration Rate 4.7, Glucose Level 84, Calcium Level 7.7L, Phosphorus Level 9.3H , Magnesium Level 2.5H Height (Feet): 5 Height (Inches): 7.00 Weight (Pounds): 134 General Appearance: no apparent distress Cardiovascular: normal rate Abdomen: soft Objective no change DALTON ROSENTHAL March 07, 2018 11:19
[2018-03-07] MEDS: Haloperidol 5mg/ml Inj IM PRN (11:54)
--- NOTE | 2018-03-07 12:00 | Progress Note ---
DATE: 03/07/2018 SUBJECTIVE: The patient is a 63-year-old male patient with anemia and GI bleeding. This patient still has confusion, disorganized thought process, altered mental status, worsened by stress of his illness. That is why, his attending has requested daily psychiatric consultation. He also has some mood lability and psychomotor agitation. MENTAL STATUS EXAMINATION: This patient is a 63-year-old male. Appearance is disheveled. Attitude, irritable and agitated. Affect, guarded and restricted. Intellect poor. Mood, depressed and anxious. Motor activity, psychomotor agitation. Attention span is poor. Orientation x2. Speech is pressured. Thought process, disorganized and illogical. Thought content, auditory hallucinations and paranoid delusions. Insight and judgment is poor. DIAGNOSIS: Paranoid schizophrenia with acute exacerbation. PLAN: treat him with Seroquel 25 mg at bedtime to stabilize his mood. Provide 18 to 20 minutes of supportive psychotherapy. Encouraged to interact appropriately with staff and other patients. Chart reviewed and discussed with staff. Seen and assessed in his room. Rony Corral M.D. DR: PAM JOB#: [id number] CC:
--- NOTE | 2018-03-07 13:07 | General Progress Note ---
Assessment/Plan Problem List: (1) Abnormal laboratory test result ICD Codes: R89.9 - Unspecified abnormal finding in specimens from other organs , systems and tissues SNOMED: 487378155 (2) ESRD (end stage renal disease) on dialysis ICD Codes: N18.6 - End stage renal disease; Z99.2 - Dependence on renal dialysis SNOMED: 971840087 (3) Hypertension, uncontrolled ICD Codes: I10 - Essential (primary) hypertension SNOMED: 55222305, 52745625 (4) Symptomatic anemia ICD Codes: D64.9 - Anemia, unspecified SNOMED: 469596782 (5) Acute hyperkalemia ICD Codes: E87.5 - Hyperkalemia SNOMED: 4906693 (6) DVT (deep venous thrombosis) ICD Codes: I82.409 - Acute embolism and thrombosis of unspecified deep veins of unspecified lower extremity SNOMED: 059391749 (7) SOB (shortness of breath) ICD Codes: R06.02 - Shortness of breath SNOMED: 135420095 (8) Respiratory failure ICD Codes: J96.90 - Respiratory failure, unspecified, unspecified whether with hypoxia or hypercapnia SNOMED: 970286885 Status: stable, progressing Assessment/Plan ot pt diet o2 pulm tx gi/heme f/u anticoag pulm transfuse prn cbc bmp am pending new Subjective Constitutional: Reports: weakness Allergies: Coded Allergies: No Known Allergies (Unverified , 02/02/18) All Systems: reviewed and negative except above Subjective sleepy calm in bed Objective Last 24 Hour Vital Signs Date Time Temp Pulse Resp B/P (MAP) Pulse Ox O2 Delivery O2 Flow Rate FiO2 03/07/18 12:00 98.0 73 20 144/64 96 98.0 03/07/18 09:53 Nasal Cannula 2.0 28 03/07/18 09:52 95 Nasal Cannula 2.0 28 03/07/18 09:51 73 18 Nasal Cannula 2.0 28 03/07/18 08:00 Nasal Cannula 2.0 96 03/07/18 08:00 97.8 75 20 121/61 97.8 03/07/18 05:57 Nasal Cannula 2.0 03/07/18 04:40 97.9 03/07/18 04:00 98.1 79 19 117/60 98 Nasal Cannula 2.0 98.1 03/07/18 03:41 97.9 03/07/18 02:07 Nasal Cannula 2.0 03/07/18 00:00 97.9 79 16 134/63 95 Nasal Cannula 2.0 97.9 03/06/18 21:00 Nasal Cannula 2.0 03/06/18 20:00 97.5 80 20 131/61 94 Room Air 97.5 03/06/18 19:15 Nasal Cannula 2.0 28 03/06/18 19:15 97 Nasal Cannula 2.0 28 03/06/18 19:15 80 20 Nasal Cannula 2.0 28 03/06/18 16:00 97.9 79 18 130/71 96 Room Air 97.9 03/06/18 14:44 97.4 03/06/18 13:49 207.3 69 18 100 03/06/18 13:48 207.3 61 18 100 03/06/18 13:12 97.2 18 104/57 98 Nasal Cannula 3.0 97.2 Intake and Output 03/06/18 03/07/18 19:00 07:00 Intake Total 775 ml 55 ml Output Total 0 ml Balance 775 ml 55 ml IV Total 455 ml 55 ml Other 320 ml Estimated Blood Loss 0 ml # Voids 2 Laboratory Tests 03/07/18 08:00: White Blood Count 6.9, Red Blood Count 2.49L, Hemoglobin 7.7L, Hematocrit 23.5L , Mean Corpuscular Volume 95, Mean Corpuscular Hemoglobin 30.9, Mean Corpuscular Hemoglobin Concent 32.7, Red Cell Distribution Width 17.6H, Platelet Count 113L, Mean Platelet Volume 6.4L, Neutrophils (%) (Auto) , Lymphocytes (%) (Auto) , Monocytes (%) (Auto) , Eosinophils (%) (Auto) , Basophils (%) (Auto) , Differential Total Cells Counted 100, Neutrophils % ( Manual) 79H, Lymphocytes % (Manual) 13L, Monocytes % (Manual) 5, Eosinophils % ( Manual) 2, Basophils % (Manual) 1, Band Neutrophils 0, Platelet Estimate DecreasedL, Platelet Morphology Normal, Hypochromasia 3+, Anisocytosis 1+, Sodium Level 138, Potassium Level 4.3, Chloride Level 96L, Carbon Dioxide Level 29, Anion Gap 13, Blood Urea Nitrogen 83H, Creatinine 11.0H, Estimat Glomerular Filtration Rate 4.7, Glucose Level 84, Calcium Level 7.7L, Phosphorus Level 9.3H , Magnesium Level 2.5H Height (Feet): 5 Height (Inches): 7.00 Weight (Pounds): 134 General Appearance: lethargic EENT: normal ENT inspection Neck: normal alignment Cardiovascular: normal peripheral pulses, normal rate, regular rhythm Respiratory/Chest: chest wall non-tender, decreased breath sounds Abdomen: normal bowel sounds, non tender, soft Extremities: normal inspection Edema: no edema noted Arm (L), no edema noted Arm (R), no edema noted Leg (L), no edema noted Leg (R), no edema noted Pedal (L), no edema noted Pedal (R), no edema noted Generalized Neurologic: responsive, motor weakness Skin: normal pigmentation, warm/dry Lebron Swift DO March 07, 2018 13:07
[2018-03-07] MEDS ORDERED: Propofol 200mg/20ml IV ONE (14:30)
[2018-03-07] MEDS ORDERED: LR 1000ml ONE (14:30)
[2018-03-07] MEDS ORDERED: Lidocaine 1% MPF 10mg/ml 5ml ONE (14:30)
--- NOTE | 2018-03-07 14:34 | Pre-Procedure Note/Attestation ---
Pre-Procedure Note/Attestation Complete Prior to Procedure Planned Procedure: not applicable Procedure Narrative: transesophageal echo Indications for Procedure Pre-Operative Diagnosis: persistent bacteremia Attestation I attest that I discussed the nature of the procedure; its benefits; risks and complications; and alternatives (and the risks and benefits of such alternatives ), prior to the procedure, with the patient (or the patient's legal textiles sales representative). I attest that, if there was a reasonable possibility of needing a blood transfusion, the patient (or the patient's legal textiles sales representative) was given the [facility] standardized written summary, pursuant to the A[employer] Nehal Blood Safety Act ([place] Health and Safety Code # 1645, as amended). I attest that I re-evaluated the patient just prior to the surgery and that there has been no change in the patient's H&P, except as documented below: Jony Becker MD March 07, 2018 14:34
[2018-03-07] MEDS ORDERED: NS 500ML IVPB ONE (14:35)
--- NOTE | 2018-03-07 14:59 | Cardiology Progress Note ---
Assessment/Plan Assessment/Plan 1. Hypertension. 2. End-stage renal disease, on hemodialysis. 3. Anemia. 4. History of GI bleed secondary to AVMs. 5. Acute deep venous thrombosis, left leg. 6. History of femoral neck fracture 7. acute diastolic heart failure 8. persistent bacteremai felt to be due to dialysis catheter 9. thrombocytopenia imoproved ctpa neg for pe has ivc filter inplace already dilaysis / uf persistent bacteremia is of concern pt awake mentation improved id input noted regarding persitent bacteremia new ordered indications and risk and possible compliacation of new d/w pt yest eveinging, agian today i reviwed the possoble major risks pt gave informed consent prior to the procedure new was neg for any vegatation Subjective Cardiovascular: Denies: chest pain Respiratory: Denies: shortness of breath Gastrointestinal/Abdominal: Denies: abdominal pain Subjective no neck pain Objective Last 24 Hour Vital Signs Date Time Temp Pulse Resp B/P (MAP) Pulse Ox O2 Delivery O2 Flow Rate FiO2 03/07/18 12:00 98.0 73 20 144/64 96 98.0 03/07/18 09:53 Nasal Cannula 2.0 28 03/07/18 09:52 95 Nasal Cannula 2.0 28 03/07/18 09:51 73 18 Nasal Cannula 2.0 28 03/07/18 08:00 Nasal Cannula 2.0 96 03/07/18 08:00 97.8 75 20 121/61 97.8 03/07/18 05:57 Nasal Cannula 2.0 03/07/18 04:40 97.9 03/07/18 04:00 98.1 79 19 117/60 98 Nasal Cannula 2.0 98.1 03/07/18 03:41 97.9 03/07/18 02:07 Nasal Cannula 2.0 03/07/18 00:00 97.9 79 16 134/63 95 Nasal Cannula 2.0 97.9 03/06/18 21:00 Nasal Cannula 2.0 03/06/18 20:00 97.5 80 20 131/61 94 Room Air 97.5 03/06/18 19:15 Nasal Cannula 2.0 28 03/06/18 19:15 97 Nasal Cannula 2.0 28 03/06/18 19:15 80 20 Nasal Cannula 2.0 28 5/23/18 16:00 97.9 79 18 130/71 96 Room Air 97.9 General Appearance: alert Neck: supple Cardiovascular: normal rate Respiratory/Chest: lungs clear, normal breath sounds Abdomen: normal bowel sounds, non tender, soft Extremities: no swelling Intake and Output 03/06/18 03/07/18 19:00 07:00 Intake Total 775 ml 55 ml Output Total 0 ml Balance 775 ml 55 ml IV Total 455 ml 55 ml Other 320 ml Estimated Blood Loss 0 ml # Voids 2 Laboratory Tests Test 03/07/18 08:00 White Blood Count 6.9 K/UL (4.8-10.8) Red Blood Count 2.49 M/UL (4.70-6.10) L Hemoglobin 7.7 G/DL (14.2-18.0) L Hematocrit 23.5 % (42.0-52.0) L Mean Corpuscular Volume 95 FL (80-99) Mean Corpuscular Hemoglobin 30.9 PG (27.0-31.0) Mean Corpuscular Hemoglobin Concent 32.7 G/DL (32.0-36.0) Red Cell Distribution Width 17.6 % (11.6-14.8) H Platelet Count 113 K/UL (150-450) L Mean Platelet Volume 6.4 FL (6.5-10.1) L Neutrophils (%) (Auto) % (45.0-75.0) Lymphocytes (%) (Auto) % (20.0-45.0) Monocytes (%) (Auto) % (1.0-10.0) Eosinophils (%) (Auto) % (0.0-3.0) Basophils (%) (Auto) % (0.0-2.0) Differential Total Cells Counted 100 Neutrophils % (Manual) 79 % (45-75) H Lymphocytes % (Manual) 13 % (20-45) L Monocytes % (Manual) 5 % (1-10) Eosinophils % (Manual) 2 % (0-3) Basophils % (Manual) 1 % (0-2) Band Neutrophils 0 % (0-8) Platelet Estimate Decreased L Platelet Morphology Normal Hypochromasia 3+ Anisocytosis 1+ Sodium Level 138 MMOL/L (136-145) Potassium Level 4.3 MMOL/L (3.5-5.1) Chloride Level 96 MMOL/L (98-107) L Carbon Dioxide Level 29 MMOL/L (21-32) Anion Gap 13 mmol/L (5-15) Blood Urea Nitrogen 83 mg/dL (7-18) H Creatinine 11.0 MG/DL (0.55-1.30) H Estimat Glomerular Filtration Rate 4.7 mL/min (>60) Glucose Level 84 MG/DL (74-106) Calcium Level 7.7 MG/DL (8.5-10.1) L Phosphorus Level 9.3 MG/DL (2.5-4.9) H Magnesium Level 2.5 MG/DL (1.8-2.4) H Microbiology Date/Time Source Procedure Growth Status 03/04/18 19:50 Blood Blood Culture - Final Staphylococcus Aureus - Mrsa Complete 03/04/18 19:40 Blood Blood Culture - Final Staphylococcus Aureus - Mrsa Complete 03/04/18 15:20 Arm Right Gram Stain - Final Resulted 03/04/18 15:20 Aerobic Culture - Final Staphylococcus Aureus Resulted 03/04/18 15:20 Arm Right Anaerobic Culture Pending Resulted Jony Becker MD March 07, 2018 14:59
--- NOTE | 2018-03-07 15:05 | Brief Operative Note ---
Immediate Post Operative Note Operative Note Chief Complaint: full note dicated Pre-op Diagnosis: persistent [id number] Procedure: transesophageal echo Post-op Diagnosis: bacteremia Post-op Diagnosis: same as pre-op Findings: other - no vegatation noted Surgeon: [email or web address] Anesthesia: moderate sedation Specimen: none Complications: none Condition: stable Fluids: none Estimated Blood Loss: none Drains: none Implant(s) used?: No Jony Becker MD March 07, 2018 15:05
[2018-03-07] MEDS ORDERED: DAPTOMYCIN IV SCH ×2 (15:15→17:00)
[2018-03-07] MEDS: fentaNYL 100 mcg/2 mL IV PRN ×2 (15:15→15:25)
[2018-03-07] MEDS ORDERED: DiphenhydrAMINE 50mg/ml Inj IVP PRN (15:15)
[2018-03-07] MEDS ORDERED: NS IV SCH ×2 (15:15→17:00)
[2018-03-07] MEDS ORDERED: fentaNYL 100 mcg/2 mL IV ONE (15:17)
--- NOTE | 2018-03-07 15:19 | Pulmonology Progress Note ---
Assessment/Plan Problems: (1) Sepsis (2) Bacteremia (3) Acute respiratory failure Assessment & Plan: resolved (4) ESRF (end stage renal failure) (5) Pulmonary edema (6) DVT (deep venous thrombosis) Assessment/Plan AMAURI today on nasal cannula now HD by sports internship respiratory treatment titrate fio2 to sat of 92% check Hemoglobin, remains around 7 all meds reviewed Subjective ROS Limited/Unobtainable: No Constitutional: Reports: no symptoms HEENT: Repors: no symptoms Respiratory: Reports: no symptoms Allergies: Coded Allergies: No Known Allergies (Unverified , 02/02/18) Objective Last 24 Hour Vital Signs Date Time Temp Pulse Resp B/P (MAP) Pulse Ox O2 Delivery O2 Flow Rate FiO2 03/07/18 15:02 98.3 74 22 138/62 95 Nasal Cannula 3.0 98.3 03/07/18 12:00 98.0 73 20 144/64 96 98.0 03/07/18 09:53 Nasal Cannula 2.0 28 03/07/18 09:52 95 Nasal Cannula 2.0 28 03/07/18 09:51 73 18 Nasal Cannula 2.0 28 03/07/18 08:00 Nasal Cannula 2.0 96 03/07/18 08:00 97.8 75 20 121/61 97.8 03/07/18 05:57 Nasal Cannula 2.0 03/07/18 04:40 97.9 03/07/18 04:00 98.1 79 19 117/60 98 Nasal Cannula 2.0 98.1 03/07/18 03:41 97.9 03/07/18 02:07 Nasal Cannula 2.0 03/07/18 00:00 97.9 79 16 134/63 95 Nasal Cannula 2.0 97.9 03/06/18 21:00 Nasal Cannula 2.0 03/06/18 20:00 97.5 80 20 131/61 94 Room Air 97.5 03/06/18 19:15 Nasal Cannula 2.0 28 03/06/18 19:15 97 Nasal Cannula 2.0 28 03/06/18 19:15 80 20 Nasal Cannula 2.0 28 03/06/18 16:00 97.9 79 18 130/71 96 Room Air 97.9 Intake and Output 03/06/18 03/07/18 19:00 07:00 Intake Total 775 ml 55 ml Output Total 0 ml Balance 775 ml 55 ml IV Total 455 ml 55 ml Other 320 ml Estimated Blood Loss 0 ml # Voids 2 Objective General Appearance: WD/WN HEENT: normocephalic, atraumatic Respiratory/Chest: chest wall non-tender, lungs clear Cardiovascular: normal peripheral pulses, normal rate, regular rhythm Abdomen: normal bowel sounds, soft, non tender, no organomegaly, non distended Extremities: no cyanosis, no clubbing, no edema Skin: no rash, no lesions Neurologic/Psychiatric: senior account representative II-XII grossly normal Microbiology Date/Time Source Procedure Growth Status 03/04/18 19:50 Blood Blood Culture - Final Staphylococcus Aureus - Mrsa Complete 03/04/18 19:40 Blood Blood Culture - Final Staphylococcus Aureus - Mrsa Complete 03/04/18 15:20 Arm Right Gram Stain - Final Resulted 03/04/18 15:20 Aerobic Culture - Final Staphylococcus Aureus Resulted 03/04/18 15:20 Arm Right Anaerobic Culture Pending Resulted Laboratory Tests 03/07/18 08:00: White Blood Count 6.9, Red Blood Count 2.49L, Hemoglobin 7.7L, Hematocrit 23.5L , Mean Corpuscular Volume 95, Mean Corpuscular Hemoglobin 30.9, Mean Corpuscular Hemoglobin Concent 32.7, Red Cell Distribution Width 17.6H, Platelet Count 113L, Mean Platelet Volume 6.4L, Neutrophils (%) (Auto) , Lymphocytes (%) (Auto) , Monocytes (%) (Auto) , Eosinophils (%) (Auto) , Basophils (%) (Auto) , Differential Total Cells Counted 100, Neutrophils % ( Manual) 79H, Lymphocytes % (Manual) 13L, Monocytes % (Manual) 5, Eosinophils % ( Manual) 2, Basophils % (Manual) 1, Band Neutrophils 0, Platelet Estimate DecreasedL, Platelet Morphology Normal, Hypochromasia 3+, Anisocytosis 1+, Sodium Level 138, Potassium Level 4.3, Chloride Level 96L, Carbon Dioxide Level 29, Anion Gap 13, Blood Urea Nitrogen 83H, Creatinine 11.0H, Estimat Glomerular Filtration Rate 4.7, Glucose Level 84, Calcium Level 7.7L, Phosphorus Level 9.3H , Magnesium Level 2.5H Current Medications Medications (Trade) Dose Ordered Sig/Blessing Route PRN Reason Start Time Stop Time Status Last Admin Dose Admin Acetaminophen (Tylenol) 500 mg 3XW PRN ORAL WITH DIALYSIS 03/01/18 09:00 03/27/18 08:59 Acetaminophen (Tylenol) 650 mg Q4H PRN RECTAL Mild Pain/Temp > 100.5 03/01/18 01:15 03/26/18 17:14 Acetaminophen (Tylenol) 650 mg Q6H PRN ORAL Mild Pain/Temp > 100.5 02/28/18 23:00 03/25/18 10:59 03/01/18 03:47 Albuterol/ Ipratropium (Albuterol/ Ipratropium) 3 ml Q4H PRN HHN Shortness of Breath 03/03/18 11:15 03/08/18 11:14 03/05/18 20:36 Ceftaroline Fosamil 200 mg/ Sodium Chloride 55 ml @ 55 mls/hr EVERY 12 HOURS IVPB 03/04/18 18:00 03/11/18 17:59 03/07/18 09:44 Chlorhexidine Gluconate (Miriam-Hex 2%) 1 applic DAILY@2000 TOPIC 03/01/18 20:00 03/28/18 19:59 03/05/18 20:43 Clonidine HCl (Catapres Tab) 0.1 mg EVERY 4 HOURS PRN ORAL FOR BP > 160. 03/01/18 01:00 03/25/18 10:44 Daptomycin 450 mg/ Sodium Chloride 110 ml @ 200 mls/hr Q48H IV 03/07/18 15:15 03/14/18 15:14 UNV Diphenhydramine HCl (Benadryl) 50 mg Q6H PRN ORAL Itching 02/28/18 23:00 03/25/18 10:59 03/02/18 15:11 Docusate Sodium (Colace) 100 mg THREE TIMES A DAY ORAL 03/01/18 18:00 03/31/18 17:59 03/05/18 17:32 Epoetin Alfonzo (Procrit (for ESRD on dialysis)) 10,000 units SUN-SUN-SUN SUBQ 03/01/18 21:00 03/27/18 20:59 03/06/18 21:44 Haloperidol Lactate (Haldol) 5 mg Q4H PRN IM AGITATION 02/28/18 23:00 03/25/18 10:59 03/07/18 11:54 Lansoprazole (Prevacid) 30 mg DAILY@0730 ORAL 03/01/18 07:30 03/31/18 07:29 03/05/18 06:35 Nicotine (Nicoderm) 1 patch Q24H TDERMAL 03/01/18 09:00 03/26/18 08:59 03/05/18 10:24 Prochlorperazine (Compazine) 10 mg Q6H PRN IVP Nausea & Vomiting 02/28/18 23:00 03/25/18 10:59 Quetiapine Fumarate (SEROquel) 25 mg QHS ORAL 03/01/18 21:00 03/25/18 20:59 03/06/18 21:43 Sevelamer Carbonate (Renvela) 2,400 mg TID@0730,1130,1730 ORAL 03/07/18 11:30 04/01/18 07:29 Clement Mcleod MD March 07, 2018 15:19
--- NOTE | 2018-03-07 15:23 | Infectious Diseases Prog Note ---
Assessment/Plan Assessment/Plan ASSESSMENT: The patient is a 63-year-old male with, Fever, SP Persistent Bacteremia MRSA ( 02/22,13, 18, 20, 21 +; 03/06 p )- 2ry to R AVF infection, possible abscess -WBC scan: Small focus of uptake within the lower part of the right upper arm consistent with infection. Findings may represent cellulitis, phlegmon or abscess. Correlate clinically. The patient has an arteriovenous fistula in this location. -wound cx R arm (from AVF fistula)- MRSA -AMAURI- prelim report per cards- no vegetations -CT chest abd/p w/ 03/02: Bibasilar lung atelectasis and airspace opacities, worse in the right lower lobe, worrisome for pneumonia. Tiny bilateral pleural effusions. Numerous small to borderline mediastinal and bilateral axillary lymph nodes. Prominent subcarinal lymph node. Emphysema. Mild superior endplate compression deformities T4, T5, T6, T8, T10, T11, are age- indeterminate. Age-indeterminate vertical fracture through the mid L2 vertebral body with anterior wedge compression. 02/26 2DEcho limited , av and mv thickening but no Veg Leukocytosis ,resolved 02/06/ CT of chest [id number] : no evidence of pulmonary emboli, diffuse septal thickening, and bilateral ground glass opacities, and small bilateral pleural effusion. Neg : HIV , Hep panel gastrointestinal bleed : had endoscopy but location unknown 02/25 SP Lt IJ, s/p removal 03/06 Anemia. End-stage renal disease, on hemodialysis. Left leg DVT. Right hip fracture, status post ORIF. History of hepatitis C Splenomegaly. Status post IVC filter placement PLAN: -Continue IV Daptomycin 8mg/kg q 48hr and Ceftaroline ( AB Rx d# 11) due to persistent bacteremia; will need 6 weeks from 1st neg BCx - monitor CPK SP 03/04 IV Vancomycin #8 SP 02/26 Zyvox d# 1 ( pt now has IV Access ) -f/u Bcx x2 and repeat Bcx until clearance of bacteremia -Vascular surgery evaluation - will need source control with AVF debridement -CT RUE w/ Monitor CBC. Monitor BMP. Monitor blood cultures Monitor chest x-ray. Monitor vital signs care was estela RN and Dr Swift. Subjective Allergies: Coded Allergies: No Known Allergies (Unverified , 02/02/18) Subjective afebrile no leukocytosis persist bacteremic; bcx from yesterday pending AMAURI neg WBC +AVF infection L IJ removed Objective Vital Signs Last 24 Hour Vital Signs Date Time Temp Pulse Resp B/P (MAP) Pulse Ox O2 Delivery O2 Flow Rate FiO2 03/07/18 12:00 98.0 73 20 144/64 96 98.0 03/07/18 09:53 Nasal Cannula 2.0 28 03/07/18 09:52 95 Nasal Cannula 2.0 28 03/07/18 09:51 73 18 Nasal Cannula 2.0 28 03/07/18 08:00 Nasal Cannula 2.0 96 03/07/18 08:00 97.8 75 20 121/61 97.8 03/07/18 05:57 Nasal Cannula 2.0 03/07/18 04:40 97.9 03/07/18 04:00 98.1 79 19 117/60 98 Nasal Cannula 2.0 98.1 03/07/18 03:41 97.9 03/07/18 02:07 Nasal Cannula 2.0 03/07/18 00:00 97.9 79 16 134/63 95 Nasal Cannula 2.0 97.9 03/06/18 21:00 Nasal Cannula 2.0 03/06/18 20:00 97.5 80 20 131/61 94 Room Air 97.5 03/06/18 19:15 Nasal Cannula 2.0 28 03/06/18 19:15 97 Nasal Cannula 2.0 28 03/06/18 19:15 80 20 Nasal Cannula 2.0 28 03/06/18 16:00 97.9 79 18 130/71 96 Room Air 97.9 Height (Feet): 5 Height (Inches): 7.00 Weight (Pounds): 134 Objective General Appearance: no acute distress HEENT: normocephalic, atraumatic, anicteric Respiratory/Chest: chest wall non-tender, normal breath sounds, no respiratory distress Cardiovascular: normal peripheral pulses, normal rate, RUE AV fistula + bruit /thrill, CL LIJ Abdomen: normal bowel sounds, soft, non tender Extremities: multiple tattoos BUE Neurologic/Psychiatric: awake, responsive Musculoskeletal: normal muscle bulk Microbiology Date/Time Source Procedure Growth Status 03/04/18 19:50 Blood Blood Culture - Final Staphylococcus Aureus - Mrsa Complete 03/04/18 19:40 Blood Blood Culture - Final Staphylococcus Aureus - Mrsa Complete 03/04/18 15:20 Arm Right Gram Stain - Final Resulted 03/04/18 15:20 Aerobic Culture - Final Staphylococcus Aureus Resulted 03/04/18 15:20 Arm Right Anaerobic Culture Pending Resulted Laboratory Tests Test 03/07/18 08:00 White Blood Count 6.9 K/UL (4.8-10.8) Red Blood Count 2.49 M/UL (4.70-6.10) L Hemoglobin 7.7 G/DL (14.2-18.0) L Hematocrit 23.5 % (42.0-52.0) L Mean Corpuscular Volume 95 FL (80-99) Mean Corpuscular Hemoglobin 30.9 PG (27.0-31.0) Mean Corpuscular Hemoglobin Concent 32.7 G/DL (32.0-36.0) Red Cell Distribution Width 17.6 % (11.6-14.8) H Platelet Count 113 K/UL (150-450) L Mean Platelet Volume 6.4 FL (6.5-10.1) L Neutrophils (%) (Auto) % (45.0-75.0) Lymphocytes (%) (Auto) % (20.0-45.0) Monocytes (%) (Auto) % (1.0-10.0) Eosinophils (%) (Auto) % (0.0-3.0) Basophils (%) (Auto) % (0.0-2.0) Differential Total Cells Counted 100 Neutrophils % (Manual) 79 % (45-75) H Lymphocytes % (Manual) 13 % (20-45) L Monocytes % (Manual) 5 % (1-10) Eosinophils % (Manual) 2 % (0-3) Basophils % (Manual) 1 % (0-2) Band Neutrophils 0 % (0-8) Platelet Estimate Decreased L Platelet Morphology Normal Hypochromasia 3+ Anisocytosis 1+ Sodium Level 138 MMOL/L (136-145) Potassium Level 4.3 MMOL/L (3.5-5.1) Chloride Level 96 MMOL/L (98-107) L Carbon Dioxide Level 29 MMOL/L (21-32) Anion Gap 13 mmol/L (5-15) Blood Urea Nitrogen 83 mg/dL (7-18) H Creatinine 11.0 MG/DL (0.55-1.30) H Estimat Glomerular Filtration Rate 4.7 mL/min (>60) Glucose Level 84 MG/DL (74-106) Calcium Level 7.7 MG/DL (8.5-10.1) L Phosphorus Level 9.3 MG/DL (2.5-4.9) H Magnesium Level 2.5 MG/DL (1.8-2.4) H Current Medications Medications (Trade) Dose Ordered Sig/Blessing Route PRN Reason Start Time Stop Time Status Last Admin Dose Admin Acetaminophen (Tylenol) 500 mg 3XW PRN ORAL WITH DIALYSIS 03/01/18 09:00 03/27/18 08:59 Acetaminophen (Tylenol) 650 mg Q4H PRN RECTAL Mild Pain/Temp > 100.5 03/01/18 01:15 03/26/18 17:14 Acetaminophen (Tylenol) 650 mg Q6H PRN ORAL Mild Pain/Temp > 100.5 02/28/18 23:00 03/25/18 10:59 03/01/18 03:47 Albuterol/ Ipratropium (Albuterol/ Ipratropium) 3 ml Q4H PRN HHN Shortness of Breath 03/03/18 11:15 03/08/18 11:14 03/05/18 20:36 Ceftaroline Fosamil 200 mg/ Sodium Chloride 55 ml @ 55 mls/hr EVERY 12 HOURS IVPB 03/04/18 18:00 03/11/18 17:59 03/07/18 09:44 Chlorhexidine Gluconate (Miriam-Hex 2%) 1 applic DAILY@2000 TOPIC 03/01/18 20:00 03/28/18 19:59 03/05/18 20:43 Clonidine HCl (Catapres Tab) 0.1 mg EVERY 4 HOURS PRN ORAL FOR BP > 160. 03/01/18 01:00 03/25/18 10:44 Daptomycin 450 mg/ Sodium Chloride 110 ml @ 200 mls/hr Q48H IV 03/04/18 14:00 03/11/18 13:59 03/04/18 17:22 Diphenhydramine HCl (Benadryl) 50 mg Q6H PRN ORAL Itching 02/28/18 23:00 03/25/18 10:59 03/02/18 15:11 Docusate Sodium (Colace) 100 mg THREE TIMES A DAY ORAL 03/01/18 18:00 03/31/18 17:59 03/05/18 17:32 Epoetin Alfonzo (Procrit (for ESRD on dialysis)) 10,000 units SUN- SUBQ 03/01/18 21:00 03/27/18 20:59 03/06/18 21:44 Haloperidol Lactate (Haldol) 5 mg Q4H PRN IM AGITATION 02/28/18 23:00 03/25/18 10:59 03/07/18 11:54 Lansoprazole (Prevacid) 30 mg DAILY@0730 ORAL 03/01/18 07:30 03/31/18 07:29 03/05/18 06:35 Nicotine (Nicoderm) 1 patch Q24H TDERMAL 03/01/18 09:00 03/26/18 08:59 03/05/18 10:24 Prochlorperazine (Compazine) 10 mg Q6H PRN IVP Nausea & Vomiting 02/28/18 23:00 03/25/18 10:59 Quetiapine Fumarate (SEROquel) 25 mg QHS ORAL 03/01/18 21:00 03/25/18 20:59 03/06/18 21:43 Sevelamer Carbonate (Renvela) 2,400 mg TID@0730,1130,1730 ORAL 03/07/18 11:30 04/01/18 07:29 Latosha Contreras M.D. March 07, 2018 15:23
--- NOTE | 2018-03-07 15:26 | Anethesia Preoperative Eval ---
Anesthesia Pre-op PMH/ROS General Date of Evaluation: March 07, 2018 Time of Evaluation: 10:30 Anesthesiologist: ASA Score: ASA 4 Mallampati Score Class I : Soft palate, uvula, fauces, pillars visible Class II: Soft palate, uvula, fauces visible Class III: Soft palate, base of uvula visible Class IV: Only hard plate visible Mallampati Classification: Class II Surgeon: ben Diagnosis: r/o cardiac valve bacteria vegetation Surgical Procedure: AMAURI Anesthesia History: none Family History: no anesthesia problems Allergies: Coded Allergies: No Known Allergies (Unverified , 02/02/18) Medications: see eMAR Past Medical History Cardiovascular: Reports: HTN Pulmonary: Reports: other - h/o pulm edema; Denies: asthma, COPD, JESSICA Gastrointestinal/Genitourinary: Reports: ESRD Neurologic/Psychiatric: Denies: dementia, CVA, depression/anxiety, TIA, other Hematology/Immune: Reports: anemia, DVT, bleeding disorder Musculoskeletal/Integumentary: Denies: OA, RA, DJD, DDD, edema, other PMH Narrative: MRSA, Hep C Anesthesia Pre-op Phys. Exam Physician Exam Last Vital Signs Date Time Temp Pulse Resp B/P (MAP) Pulse Ox O2 Delivery O2 Flow Rate FiO2 03/07/18 15:02 98.3 74 22 138/62 95 Nasal Cannula 3.0 98.3 03/07/18 09:53 28 Constitutional: other - generalized pain and discomfort Cardiovascular: RRR Respiratory: CTA Gastrointestinal: S/NT/ND Airway Exam Mallampati Score: Class II MO: full ROM: full Anesthesia Pre-op A/P Labs Hematology Test 03/07/18 08:00 White Blood Count 6.9 K/UL (4.8-10.8) Red Blood Count 2.49 M/UL (4.70-6.10) L Hemoglobin 7.7 G/DL (14.2-18.0) L Hematocrit 23.5 % (42.0-52.0) L Mean Corpuscular Volume 95 FL (80-99) Mean Corpuscular Hemoglobin 30.9 PG (27.0-31.0) Mean Corpuscular Hemoglobin Concent 32.7 G/DL (32.0-36.0) Red Cell Distribution Width 17.6 % (11.6-14.8) H Platelet Count 113 K/UL (150-450) L Mean Platelet Volume 6.4 FL (6.5-10.1) L Neutrophils (%) (Auto) % (45.0-75.0) Lymphocytes (%) (Auto) % (20.0-45.0) Monocytes (%) (Auto) % (1.0-10.0) Eosinophils (%) (Auto) % (0.0-3.0) Basophils (%) (Auto) % (0.0-2.0) Differential Total Cells Counted 100 Neutrophils % (Manual) 79 % (45-75) H Lymphocytes % (Manual) 13 % (20-45) L Monocytes % (Manual) 5 % (1-10) Eosinophils % (Manual) 2 % (0-3) Basophils % (Manual) 1 % (0-2) Band Neutrophils 0 % (0-8) Platelet Estimate Decreased L Platelet Morphology Normal Hypochromasia 3+ Anisocytosis 1+ Chemistry Test 03/07/18 08:00 Sodium Level 138 MMOL/L (136-145) Potassium Level 4.3 MMOL/L (3.5-5.1) Chloride Level 96 MMOL/L (98-107) L Carbon Dioxide Level 29 MMOL/L (21-32) Anion Gap 13 mmol/L (5-15) Blood Urea Nitrogen 83 mg/dL (7-18) H Creatinine 11.0 MG/DL (0.55-1.30) H Estimat Glomerular Filtration Rate 4.7 mL/min (>60) Glucose Level 84 MG/DL (74-106) Calcium Level 7.7 MG/DL (8.5-10.1) L Phosphorus Level 9.3 MG/DL (2.5-4.9) H Magnesium Level 2.5 MG/DL (1.8-2.4) H Studies Pre-op Studies: echo - EF 60% Risk Assessment & Plan Assessment: ASA 4, okay to proceed Plan: MAC with sedation Jadyn Warner M.D. March 07, 2018 15:26
--- NOTE | 2018-03-07 15:33 | Immediate Post-Op Evaluation ---
Immediate Post-Op Evalulation Immediate Post-Op Evalulation Procedure: AMAURI Date of Evaluation: March 07, 2018 Time of Evaluation: 15:03 IV Fluids: NS 30ml Blood Products: 0 Estimated Blood Loss: 0 Urinary Output: 0 Blood Pressure Systolic: 138 Blood Pressure Diastolic: 62 Pulse Rate: 75 Respiratory Rate: 20 O2 Sat by Pulse Oximetry: 99 Temperature (Fahrenheit): 98.3 Pain Score (1-10): 8, treated with fentanyl in PACU Nausea: No Vomiting: No Patient Status: awake, patent, none Hydration Status: adequate Drug: none Jadyn Warner M.D. March 07, 2018 15:33
--- NOTE | 2018-03-07 15:43 | 48 Hour Post Anesthesia Eval ---
Post Anesthesia Evaluation Procedure: AMAURI Date of Evaluation: March 07, 2018 Time of Evaluation: 15:25 Blood Pressure Systolic: 131 0: 65 Pulse Rate: 71 Respiratory Rate: 16 Temperature (Fahrenheit): 97.9 O2 Sat by Pulse Oximetry: 96 Airway: patent Nausea: No Vomiting: No Hydration Status: adequate Mental Status/LOC: patient returned to baseline Post-Anesthesia Complications: none Follow-up care needed: N/A Jadyn Warner M.D. March 07, 2018 15:43
[2018-03-07] MEDS ORDERED: Isovue-300 100ml vial INJ PRN (16:15)
[2018-03-07] MEDS: Dyna-Hex 2% Top Sol 2oz TOPIC SCH (19:41)
--- NOTE | 2018-03-07 21:58 | General Progress Note ---
Progress Note Progress Note Asked by Dr Swift to eval patient Patient seen and examined Infected right arm av graft with blistered wound---ready to rupture Recurrent MRSA infection Hep C ESRD Rec Do not remove arm dressing & do not use shunt for HD For OR and complete right arm avg removal with resection of blistered wound & repair of brachial artery HD via temporary Saravanan cath Abx per ID d/w pt nurse and pmd Jon Neal MD March 07, 2018 21:58
[2018-03-08] VITALS (15 sets, daily range): BP systolic 59–162; BP diastolic 46–70
[2018-03-08 07:46] LABS: BASOPHILS % (AUTO) 1.1 % (0.0-2.0); EOSINOPHILS % (AUTO) 1.2 % (0.0-3.0); HEMATOCRIT 26.7 % (42.0-52.0); HEMOGLOBIN 8.5 G/DL (14.2-18.0); LYMPHOCYTES % (AUTO) 11.6 % (20.0-45.0); MEAN CORPUSCULAR VOLUME 95 FL (80-99); MONOCYTES % (AUTO) 5.6 % (1.0-10.0); NEUTROPHILS % (AUTO) 80.5 % (45.0-75.0); PLATELET COUNT 121 K/UL (150-450); RED BLOOD COUNT 2.81 M/UL (4.70-6.10); RED CELL DISTRIBUTION WIDTH 18.8 % (11.6-14.8); WHITE BLOOD COUNT 6.8 K/UL (4.8-10.8)
--- NOTE | 2018-03-08 07:46 | General Progress Note ---
Assessment/Plan Assessment/Plan #. Acute deep venous thrombosis of left lower extremity. --> Status post inferior vena cava filter placement. --> given persistent low h/h and fact that has ivc filter, coumadin has been discontinued --> hold off on further anticoagulation given low h/h #. Anemia of gastrointestinal bleed. --> transfuse if hgb <7, workup has been reviewed --> Appreciate gi recs, has been seen by them --> had endoscopy but location unknown where he had it #. Thrombocytopenia baseline likely plt count of >50-100k --> likely related to splenomegaly and hepatitis C --> monitor closely for bleed if downtrends though this is less likely --> transfuse to keep plt >20k # Numerous small to borderline mediastinal and bilateral axillary lymph nodes. Prominent subcarinal lymph node. Meet pathological size. Imaging has been reviewed for the last two CAT scans --> further recs per pulm in regards to management, reimaging in future, versus more interventional such as biopsy --> appreciate pulm/cc recommendations #. 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 Anemia of chronic disease is s/p blood transfusion. #. End-stage renal disease, hemodialysis dependent. --> epo to continue 3x a week #. Leukocytosis -- management per ID --> WBC scan pending as well is neg, then AMAURI #. History of femoral neck fracture. On pain control. #. Acute respiratory failure. #. Hep C ++ Subjective Date patient seen: March 08, 2018 Constitutional: Denies: no symptoms, chills, diaphoresis, fever, malaise, weakness, other HEENT: Denies: no symptoms, eye pain, blurred vision, tearing, double vision, ear pain, ear discharge, nose pain, nose congestion, throat pain, throat swelling, mouth pain, mouth swelling, other Cardiovascular: Denies: no symptoms, chest pain, edema, irregular heart rate, lightheadedness, palpitations, syncope, other Respiratory: Denies: no symptoms, cough, orthopnea, shortness of breath, SOB with excertion, SOB at rest, sputum, stridor, wheezing, other Gastrointestinal/Abdominal: Denies: no symptoms, abdomen distended, abdominal pain, black stools, tarry stools, blood in stool, constipated, diarrhea, difficulty swallowing, nausea, poor appetite, poor fluid intake, rectal bleeding , vomiting, other Genitourinary: Denies: no symptoms, burning, discharge, frequency, flank pain, hematuria, incontinence, pain, urgency, other Neurologic/Psychiatric: Denies: no symptoms, anxiety, depressed, emotional problems, headache, numbness, paresthesia, pre-existing deficit, seizure, tingling, tremors, weakness, other Endocrine: Denies: no symptoms, excessive sweating, flushing, intolerance to cold, intolerance to heat, increased hunger, increased thirst, increased urine, unexplained weight gain, unexplained weight loss, other Hematologic/Lymphatic: Denies: no symptoms, anemia, easy bleeding, easy bruising, other Allergies: Coded Allergies: No Known Allergies (Unverified , 02/02/18) Subjective No overnight events reported. Continue supportive care. Objective Last 24 Hour Vital Signs Date Time Temp Pulse Resp B/P (MAP) Pulse Ox O2 Delivery O2 Flow Rate FiO2 03/08/18 04:07 98.2 75 19 135/66 96 Nasal Cannula 2.0 98.2 03/08/18 00:00 Nasal Cannula 2.0 03/08/18 00:00 97.9 78 19 128/67 94 Nasal Cannula 2.0 97.9 03/07/18 20:00 96 Nasal Cannula 3.0 03/07/18 19:37 Room Air 03/07/18 19:36 96.0 76 20 149/62 Room Air 96.0 03/07/18 19:30 96 Nasal Cannula 2.0 28 03/07/18 19:30 76 20 Nasal Cannula 2.0 28 03/07/18 19:30 Nasal Cannula 2.0 28 03/07/18 17:30 Room Air 03/07/18 17:30 96.7 99 20 141/69 Room Air 96.7 03/07/18 15:43 208.2 71 16 96 03/07/18 15:35 97.9 74 22 135/63 96 Nasal Cannula 3.0 97.9 03/07/18 15:33 208.9 75 20 99 03/07/18 15:25 70 22 131/68 96 Nasal Cannula 3.0 03/07/18 15:12 73 22 131/71 95 Nasal Cannula 3.0 03/07/18 15:07 74 22 129/69 96 Nasal Cannula 3.0 03/07/18 15:02 98.3 74 22 138/62 95 Nasal Cannula 3.0 98.3 03/07/18 12:00 98.0 73 20 144/64 96 98.0 03/07/18 09:53 Nasal Cannula 2.0 28 03/07/18 09:52 95 Nasal Cannula 2.0 28 03/07/18 09:51 73 18 Nasal Cannula 2.0 28 03/07/18 08:00 Nasal Cannula 2.0 96 03/07/18 08:00 97.8 75 20 121/61 97.8 Intake and Output 03/07/18 03/08/18 19:00 07:00 Intake Total 15 ml Output Total 1050 ml Balance 15 ml -1050 ml IV Total 15 ml Hemodialysis UF 1050 ml Laboratory Tests 03/07/18 08:00: White Blood Count 6.9, Red Blood Count 2.49L, Hemoglobin 7.7L, Hematocrit 23.5L , Mean Corpuscular Volume 95, Mean Corpuscular Hemoglobin 30.9, Mean Corpuscular Hemoglobin Concent 32.7, Red Cell Distribution Width 17.6H, Platelet Count 113L, Mean Platelet Volume 6.4L, Neutrophils (%) (Auto) , Lymphocytes (%) (Auto) , Monocytes (%) (Auto) , Eosinophils (%) (Auto) , Basophils (%) (Auto) , Differential Total Cells Counted 100, Neutrophils % ( Manual) 79H, Lymphocytes % (Manual) 13L, Monocytes % (Manual) 5, Eosinophils % ( Manual) 2, Basophils % (Manual) 1, Band Neutrophils 0, Platelet Estimate DecreasedL, Platelet Morphology Normal, Hypochromasia 3+, Anisocytosis 1+, Sodium Level 138, Potassium Level 4.3, Chloride Level 96L, Carbon Dioxide Level 29, Anion Gap 13, Blood Urea Nitrogen 83H, Creatinine 11.0H, Estimat Glomerular Filtration Rate 4.7, Glucose Level 84, Calcium Level 7.7L, Phosphorus Level 9.3H , Magnesium Level 2.5H 03/08/18 05:35: White Blood Count [Pending], Red Blood Count [Pending], Hemoglobin [Pending], Hematocrit [Pending], Mean Corpuscular Volume [Pending], Mean Corpuscular Hemoglobin [Pending], Mean Corpuscular Hemoglobin Concent [Pending], Red Cell Distribution Width [Pending], Platelet Count [Pending], Mean Platelet Volume [ Pending], Neutrophils (%) (Auto) [Pending], Lymphocytes (%) (Auto) [Pending], Monocytes (%) (Auto) [Pending], Eosinophils (%) (Auto) [Pending], Basophils (%) (Auto) [Pending], Sodium Level [Pending], Potassium Level [Pending], Chloride Level [Pending], Carbon Dioxide Level [Pending], Blood Urea Nitrogen [Pending], Creatinine [Pending], Estimat Glomerular Filtration Rate [Pending], Glucose Level [Pending], Calcium Level [Pending], Prothrombin Time [Pending], Prothromb Time International Ratio [Pending], Total Bilirubin [Pending], Aspartate Amino Transf (AST/SGOT) [Pending], Alanine Aminotransferase (ALT/SGPT) [Pending], Alkaline Phosphatase [Pending], Total Protein [Pending], Albumin [Pending], Globulin [Pending] Height (Feet): 5 Height (Inches): 7.00 Weight (Pounds): 129 General Appearance: alert EENT: TMs normal Neck: supple Cardiovascular: regular rhythm Respiratory/Chest: lungs clear Abdomen: non tender Extremities: non-tender Edema: no edema noted Leg (L), no edema noted Leg (R) Edema: mild edema Neurologic: alert Skin: warm/dry Tristen Lewis MD March 08, 2018 07:46
[2018-03-08 08:07] LABS: INR 1.2 (0.9-1.1)
[2018-03-08 08:08] LABS: ALANINE AMINOTRANSFERASE 8 U/L (12-78); ALBUMIN 2.6 G/DL (3.4-5.0); ALBUMIN/GLOBULIN RATIO 0.5 (1.0-2.7); ALKALINE PHOSPHATASE 469 U/L (46-116); ANION GAP 18 mmol/L (5-15); ASPARTATE AMINO TRANSFERASE 18 U/L (15-37); BILIRUBIN,TOTAL 1.4 MG/DL (0.2-1.0); BLOOD UREA NITROGEN 74 mg/dL (7-18); CARBON DIOXIDE 27 MMOL/L (21-32); CHLORIDE 92 MMOL/L (98-107); CREATININE 10.5 MG/DL (0.55-1.30); POTASSIUM 4.3 MMOL/L (3.5-5.1); SODIUM 136 MMOL/L (136-145)
[2018-03-08 08:15] LABS: BILIRUBIN,DIRECT 0.8 MG/DL (0.0-0.3)
--- NOTE | 2018-03-08 08:35 | Diagnostic Imaging Report ---
Indication: Right upper arm pain, abnormal right arm uptake seen on recent tagged white blood cell scan Technique: IV administration nonionic contrast Spiral acquisitions obtained through the right arm Multiplanar reconstructions were generated. Total dose length product 418 mGycm. CTDIvol(s) 11 mGy. Radiation dose was minimized using automated exposure control Comparison: Reference made to the white blood cell scan dated 03/06/2018 Findings: Exam is limited. The patient was unable to elevate his right arm, which results in excess image noise. There is a right upper extremity AV graft. Although there is some mural thickening, this is patent. No definite abnormal fluid collection to suggest abscess demonstrated. Prominent right axillary nodes are demonstrated. The bones are unremarkable Impression: Now fluid collection or other finding to suggest abscess. No findings to explain abnormality demonstrated on recent indium white cell scan. Note that given the limitations of the exam, ultrasound may be useful to help identify any CT occult abscess. Patient right upper extremity brachiobasilic AV dialysis graft. Note some non flow-limiting mural thickening or thrombus is present This agrees with the preliminary interpretation provided overnight by [facility] telerad[facility] service. The CT scanner at [facility] is accredited by the [employer] and the scans are performed using protocols designed to limit radiation exposure to as low as reasonably achievable to attain images of sufficient resolution adequate for diagnostic evaluation.
[2018-03-08] MEDS: Docusate 100mg cap ORAL SCH ×4 (08:38→18:53)
[2018-03-08] MEDS: Ceftaroline 200 MG in NS 55 ML IVPB SCH (09:00)
--- NOTE | 2018-03-08 09:25 | General Progress Note ---
Assessment/Plan Assessment/Plan (1) Right hip pain (2) Right hip Fracture (3) S/p ORIF of right hip Pt will be continued on Percocet HOLD OPIOIDS FOR OVERSEDATION OR SBP<90 OR DBP<60 OR O2SAT<92% OR RR<12 D/w Dr. Childers he concurred. Subjective Date patient seen: March 08, 2018 Time patient seen: 07:30 - am Allergies: Coded Allergies: No Known Allergies (Unverified , 02/02/18) Subjective Constitutional: Reports: weakness HEENT: Reports: no symptoms Cardiovascular: Reports: no symptoms Respiratory: Reports: shortness of breath Gastrointestinal/Abdominal: Reports: no symptoms Genitourinary: Reports: no symptoms Neurologic/Psychiatric: Reports: weakness Endocrine: Reports: no symptoms Hematologic/Lymphatic: Reports: no symptoms Subjective Patient shows no signs of pain or distress at this time. In bed and comfortable. Objective Last 24 Hour Vital Signs Date Time Temp Pulse Resp B/P (MAP) Pulse Ox O2 Delivery O2 Flow Rate FiO2 03/08/18 08:32 97 Nasal Cannula 2.0 03/08/18 08:32 79 18 Nasal Cannula 2.0 28 03/08/18 08:32 Nasal Cannula 2.0 28 03/08/18 08:00 98.1 81 20 150/69 95 98.1 03/08/18 04:07 98.2 75 19 135/66 96 Nasal Cannula 2.0 98.2 03/08/18 00:00 Nasal Cannula 2.0 03/08/18 00:00 97.9 78 19 128/67 94 Nasal Cannula 2.0 97.9 03/07/18 20:00 96 Nasal Cannula 3.0 03/07/18 19:37 Room Air 03/07/18 19:36 96.0 76 20 149/62 Room Air 96.0 03/07/18 19:30 96 Nasal Cannula 2.0 28 03/07/18 19:30 76 20 Nasal Cannula 2.0 28 03/07/18 19:30 Nasal Cannula 2.0 28 03/07/18 17:30 Room Air 03/07/18 17:30 96.7 99 20 141/69 Room Air 96.7 03/07/18 15:43 208.2 71 16 96 03/07/18 15:35 97.9 74 22 135/63 96 Nasal Cannula 3.0 97.9 03/07/18 15:33 208.9 75 20 99 03/07/18 15:25 70 22 131/68 96 Nasal Cannula 3.0 03/07/18 15:12 73 22 131/71 95 Nasal Cannula 3.0 03/07/18 15:07 74 22 129/69 96 Nasal Cannula 3.0 03/07/18 15:02 98.3 74 22 138/62 95 Nasal Cannula 3.0 98.3 03/07/18 12:00 98.0 73 20 144/64 96 98.0 03/07/18 09:53 Nasal Cannula 2.0 28 03/07/18 09:52 95 Nasal Cannula 2.0 28 03/07/18 09:51 73 18 Nasal Cannula 2.0 28 Intake and Output 03/07/18 03/08/18 19:00 07:00 Intake Total 15 ml Output Total 1050 ml Balance 15 ml -1050 ml IV Total 15 ml Hemodialysis UF 1050 ml Laboratory Tests 03/08/18 05:35: White Blood Count 6.8, Red Blood Count 2.81L, Hemoglobin 8.5L, Hematocrit 26.7L , Mean Corpuscular Volume 95, Mean Corpuscular Hemoglobin 30.3, Mean Corpuscular Hemoglobin Concent 31.9L, Red Cell Distribution Width 18.8H, Platelet Count 121L, Mean Platelet Volume 6.7, Neutrophils (%) (Auto) 80.5H, Lymphocytes (%) (Auto) 11.6L, Monocytes (%) (Auto) 5.6, Eosinophils (%) (Auto) 1.2, Basophils (%) (Auto) 1.1, Prothrombin Time 12.8H, Prothromb Time International Ratio 1.2H, Sodium Level 136, Potassium Level 4.3, Chloride Level 92L, Carbon Dioxide Level 27, Anion Gap 18H, Blood Urea Nitrogen 74H, Creatinine 10.5H, Estimat Glomerular Filtration Rate 5.0, Glucose Level 64L, Calcium Level 8.0L, Total Bilirubin 1.4H, Direct Bilirubin 0.8H, Aspartate Amino Transf (AST/SGOT) 18, Alanine Aminotransferase (ALT/SGPT) 8L, Alkaline Phosphatase 469H, Total Protein 7.5, Albumin 2.6L, Globulin 4.9, Albumin/ Globulin Ratio 0.5L Height (Feet): 5 Height (Inches): 7.00 Weight (Pounds): 129 Objective Neck: non-tender, normal alignment, supple, normal inspection Respiratory/Chest: decreased breath sounds Cardiovascular/Chest: normal rate, regular rhythm Abdomen: non tender, soft, no organomegaly Extremities: inflammation - right hip tenderness to palpation Skin Exam: normal pigmentation, warm/dry KANWAL CURRAN March 08, 2018 09:25
--- NOTE | 2018-03-08 10:03 | Diagnostic Imaging Report ---
Indications: Pain Technique: Two views of the left humerus Comparison: None Findings: A single surgical clip is seen in the distal soft tissues. No acute fractures. No dislocations. No soft tissue gas. Impression: No acute process
--- NOTE | 2018-03-08 11:15 | Infectious Diseases Prog Note ---
Assessment/Plan Assessment/Plan ASSESSMENT: The patient is a 63-year-old male with, Fever, SP Persistent Bacteremia MRSA ( 02/22,13, 18, 20, 21 +; 03/06 NTD )- 2ry to R AVF infection, possible abscess -WBC scan: Small focus of uptake within the lower part of the right upper arm consistent with infection. Findings may represent cellulitis, phlegmon or abscess. Correlate clinically. The patient has an arteriovenous fistula in this location. -wound cx R arm (from AVF fistula)- MRSA -AMAURI- prelim report per cards- no vegetations -CT R ext w/: Limited exam due to motion. No fluid collection or other finding to suggest abscess. No findings to explain abnormality demonstrated on recent indium white cell scan. Patient right upper extremity brachiobasilic AV dialysis graft. Note some non flow-limiting mural thickening or thrombus is present -CT chest abd/p w/ 03/02: Bibasilar lung atelectasis and airspace opacities, worse in the right lower lobe, worrisome for pneumonia. Tiny bilateral pleural effusions. Numerous small to borderline mediastinal and bilateral axillary lymph nodes. Prominent subcarinal lymph node. Emphysema. Mild superior endplate compression deformities T4, T5, T6, T8, T10, T11, are age- indeterminate. Age-indeterminate vertical fracture through the mid L2 vertebral body with anterior wedge compression. 02/26 2DEcho limited , av and mv thickening but no Veg Leukocytosis ,resolved 02/06/ CT of chest [id number] : no evidence of pulmonary emboli, diffuse septal thickening, and bilateral ground glass opacities, and small bilateral pleural effusion. Neg : HIV , Hep panel gastrointestinal bleed : had endoscopy but location unknown 02/25 SP Lt IJ, s/p removal 03/06 ,c ath tip NTD Anemia. End-stage renal disease, on hemodialysis. Left leg DVT. Right hip fracture, status post ORIF. History of hepatitis C Splenomegaly. Status post IVC filter placement PLAN: -Continue IV Daptomycin 8mg/kg q 48hr and Ceftaroline ( AB Rx d# 12) due to persistent bacteremia; will need 6 weeks from 1st neg BCx - monitor CPK SP 03/04 IV Vancomycin #8 SP 02/26 Zyvox d# 1 ( pt now has IV Access ) -f/u Bcx x2 and repeat Bcx until clearance of bacteremia -appreciate vascular sx input: for removal of AVG and placement of temp HD cath today Monitor CBC. Monitor BMP. Monitor blood cultures Monitor chest x-ray. Monitor vital signs wound care care was dw RN, Dr Swift and Dr Tiwari Subjective Allergies: Coded Allergies: No Known Allergies (Unverified , 02/02/18) Subjective afebrile no leukocytosis Bcx 03/06 NTD for AVG graft removal and placemetn of temp HD cath today Objective Vital Signs Last 24 Hour Vital Signs Date Time Temp Pulse Resp B/P (MAP) Pulse Ox O2 Delivery O2 Flow Rate FiO2 03/08/18 08:32 97 Nasal Cannula 2.0 28 03/08/18 08:32 79 18 Nasal Cannula 2.0 28 03/08/18 08:32 Nasal Cannula 2.0 28 03/08/18 08:00 98.1 81 20 150/69 95 98.1 03/08/18 04:07 98.2 75 19 135/66 96 Nasal Cannula 2.0 98.2 03/08/18 00:00 Nasal Cannula 2.0 03/08/18 00:00 97.9 78 19 128/67 94 Nasal Cannula 2.0 97.9 03/07/18 20:00 96 Nasal Cannula 3.0 03/07/18 19:37 Room Air 03/07/18 19:36 96.0 76 20 149/62 Room Air 96.0 03/07/18 19:30 96 Nasal Cannula 2.0 28 03/07/18 19:30 76 20 Nasal Cannula 2.0 28 03/07/18 19:30 Nasal Cannula 2.0 28 03/07/18 17:30 Room Air 03/07/18 17:30 96.7 99 20 141/69 Room Air 96.7 03/07/18 15:43 208.2 71 16 96 03/07/18 15:35 97.9 74 22 135/63 96 Nasal Cannula 3.0 97.9 03/07/18 15:33 208.9 75 20 99 03/07/18 15:25 70 22 131/68 96 Nasal Cannula 3.0 03/07/18 15:12 73 22 131/71 95 Nasal Cannula 3.0 03/07/18 15:07 74 22 129/69 96 Nasal Cannula 3.0 03/07/18 15:02 98.3 74 22 138/62 95 Nasal Cannula 3.0 98.3 03/07/18 12:00 98.0 73 20 144/64 96 98.0 Height (Feet): 5 Height (Inches): 7.00 Weight (Pounds): 129 Objective General Appearance: no acute distress HEENT: normocephalic, atraumatic, anicteric Respiratory/Chest: chest wall non-tender, normal breath sounds, no respiratory distress Cardiovascular: normal peripheral pulses, normal rate, RUE AV fistula + bruit /thrill, CL LIJ Abdomen: normal bowel sounds, soft, non tender Extremities: multiple tattoos BUE Neurologic/Psychiatric: awake, responsive Musculoskeletal: normal muscle bulk Microbiology Date/Time Source Procedure Growth Status 03/06/18 18:15 Blood Blood Culture - Preliminary NO GROWTH AFTER 24 HOURS Resulted 03/06/18 18:00 Blood Blood Culture - Preliminary NO GROWTH AFTER 24 HOURS Resulted 03/06/18 15:30 Internal Jugular Jugular Catheter Tip Culture - Preliminary NO GROWTH AFTER 24 HOURS Resulted Laboratory Tests Test 03/08/18 05:35 White Blood Count 6.8 K/UL (4.8-10.8) Red Blood Count 2.81 M/UL (4.70-6.10) L Hemoglobin 8.5 G/DL (14.2-18.0) L Hematocrit 26.7 % (42.0-52.0) L Mean Corpuscular Volume 95 FL (80-99) Mean Corpuscular Hemoglobin 30.3 PG (27.0-31.0) Mean Corpuscular Hemoglobin Concent 31.9 G/DL (32.0-36.0) L Red Cell Distribution Width 18.8 % (11.6-14.8) H Platelet Count 121 K/UL (150-450) L Mean Platelet Volume 6.7 FL (6.5-10.1) Neutrophils (%) (Auto) 80.5 % (45.0-75.0) H Lymphocytes (%) (Auto) 11.6 % (20.0-45.0) L Monocytes (%) (Auto) 5.6 % (1.0-10.0) Eosinophils (%) (Auto) 1.2 % (0.0-3.0) Basophils (%) (Auto) 1.1 % (0.0-2.0) Prothrombin Time 12.8 SEC (9.30-11.50) H Prothromb Time International Ratio 1.2 (0.9-1.1) H Sodium Level 136 MMOL/L (136-145) Potassium Level 4.3 MMOL/L (3.5-5.1) Chloride Level 92 MMOL/L (98-107) L Carbon Dioxide Level 27 MMOL/L (21-32) Anion Gap 18 mmol/L (5-15) H Blood Urea Nitrogen 74 mg/dL (7-18) H Creatinine 10.5 MG/DL (0.55-1.30) H Estimat Glomerular Filtration Rate 5.0 mL/min (>60) Glucose Level 64 MG/DL (74-106) L Calcium Level 8.0 MG/DL (8.5-10.1) L Total Bilirubin 1.4 MG/DL (0.2-1.0) H Direct Bilirubin 0.8 MG/DL (0.0-0.3) H Aspartate Amino Transf (AST/SGOT) 18 U/L (15-37) Alanine Aminotransferase (ALT/SGPT) 8 U/L (12-78) L Alkaline Phosphatase 469 U/L (46-116) H Total Protein 7.5 G/DL (6.4-8.2) Albumin 2.6 G/DL (3.4-5.0) L Globulin 4.9 g/dL Albumin/Globulin Ratio 0.5 (1.0-2.7) L Current Medications Medications (Trade) Dose Ordered Sig/Blessing Route PRN Reason Start Time Stop Time Status Last Admin Dose Admin Acetaminophen (Tylenol) 500 mg 3XW PRN ORAL WITH DIALYSIS 03/01/18 09:00 03/27/18 08:59 Acetaminophen (Tylenol) 650 mg Q4H PRN RECTAL Mild Pain/Temp > 100.5 03/01/18 01:15 03/26/18 17:14 Acetaminophen (Tylenol) 650 mg Q6H PRN ORAL Mild Pain/Temp > 100.5 02/28/18 23:00 03/25/18 10:59 03/01/18 03:47 Albuterol/ Ipratropium (Albuterol/ Ipratropium) 3 ml Q4H PRN HHN Shortness of Breath 03/03/18 11:15 03/08/18 11:14 03/05/18 20:36 Ceftaroline Fosamil 200 mg/ Sodium Chloride 55 ml @ 55 mls/hr EVERY 12 HOURS IVPB 03/04/18 18:00 03/11/18 17:59 03/07/18 21:23 Chlorhexidine Gluconate (Miriam-Hex 2%) 1 applic DAILY@2000 TOPIC 03/01/18 20:00 03/28/18 19:59 03/05/18 20:43 Clonidine HCl (Catapres Tab) 0.1 mg EVERY 4 HOURS PRN ORAL FOR BP > 160. 03/01/18 01:00 03/25/18 10:44 Daptomycin 450 mg/ Sodium Chloride 110 ml @ 200 mls/hr Q48H IV 03/07/18 17:00 03/14/18 16:59 03/07/18 20:09 Diphenhydramine HCl (Benadryl) 50 mg Q6H PRN ORAL Itching 02/28/18 23:00 03/25/18 10:59 03/02/18 15:11 Docusate Sodium (Colace) 100 mg THREE TIMES A DAY ORAL 03/01/18 18:00 03/31/18 17:59 03/05/18 17:32 Epoetin Alfonzo (Procrit (for ESRD on dialysis)) 10,000 units SUN-SUN-SUN SUBQ 03/01/18 21:00 03/27/18 20:59 03/06/18 21:44 Haloperidol Lactate (Haldol) 5 mg Q4H PRN IM AGITATION 02/28/18 23:00 03/25/18 10:59 03/07/18 11:54 Iopamidol (Isovue-300 100ml) 100 ml NOW PRN INJ Radiology Procedure 03/07/18 16:15 03/09/18 16:12 Lansoprazole (Prevacid) 30 mg DAILY@0730 ORAL 03/01/18 07:30 03/31/18 07:29 03/05/18 06:35 Nicotine (Nicoderm) 1 patch Q24H TDERMAL 03/01/18 09:00 03/26/18 08:59 03/05/18 10:24 Oxycodone/ Acetaminophen (Percocet 10/325) 1 tab Q4H PRN ORAL severe pain (SCALE 7-10) 03/08/18 09:30 03/15/18 09:29 Prochlorperazine (Compazine) 10 mg Q6H PRN IVP Nausea & Vomiting 02/28/18 23:00 03/25/18 10:59 Quetiapine Fumarate (SEROquel) 25 mg QHS ORAL 03/01/18 21:00 03/25/18 20:59 03/07/18 21:23 Sevelamer Carbonate (Renvela) 2,400 mg TID@2030,0420,7580 ORAL 03/07/18 11:30 04/01/18 07:29 Latosha Contreras M.D. March 08, 2018 11:15
--- NOTE | 2018-03-08 11:39 | Nephrology Progress Note ---
Assessment/Plan Problem List: (1) ESRD (end stage renal disease) on dialysis (2) Acute hyperkalemia (3) Hypertension, uncontrolled (4) Left leg DVT (5) Anemia in chronic kidney disease (CKD) Assessment infected right arm fistula BP stable stop mind altering meds ESRD, on admission missed dialysis . has high K on admission has fistula right arm Sever Anemia h/o Amyloidosis COPD Plan removal of fistula, placement of permacath HD as needed next 03/09 stop BP meds- on PRN clonidine only Transfusion as needed Kayexelate as needed BP control, meds adjusted has IVC filter add phos binders Subjective ROS Limited/Unobtainable: No Constitutional: Reports: malaise, weakness Objective Objective Last 24 Hour Vital Signs Date Time Temp Pulse Resp B/P (MAP) Pulse Ox O2 Delivery O2 Flow Rate FiO2 03/08/18 08:32 97 Nasal Cannula 2.0 28 03/08/18 08:32 79 18 Nasal Cannula 2.0 28 03/08/18 08:32 Nasal Cannula 2.0 28 03/08/18 08:00 98.1 81 20 150/69 95 98.1 03/08/18 04:07 98.2 75 19 135/66 96 Nasal Cannula 2.0 98.2 03/08/18 00:00 Nasal Cannula 2.0 03/08/18 00:00 97.9 78 19 128/67 94 Nasal Cannula 2.0 97.9 03/07/18 20:00 96 Nasal Cannula 3.0 03/07/18 19:37 Room Air 03/07/18 19:36 96.0 76 20 149/62 Room Air 96.0 03/07/18 19:30 96 Nasal Cannula 2.0 28 03/07/18 19:30 76 20 Nasal Cannula 2.0 28 03/07/18 19:30 Nasal Cannula 2.0 28 03/07/18 17:30 Room Air 03/07/18 17:30 96.7 99 20 141/69 Room Air 96.7 03/07/18 15:43 208.2 71 16 96 03/07/18 15:35 97.9 74 22 135/63 96 Nasal Cannula 3.0 97.9 03/07/18 15:33 208.9 75 20 99 03/07/18 15:25 70 22 131/68 96 Nasal Cannula 3.0 03/07/18 15:12 73 22 131/71 95 Nasal Cannula 3.0 03/07/18 15:07 74 22 129/69 96 Nasal Cannula 3.0 03/07/18 15:02 98.3 74 22 138/62 95 Nasal Cannula 3.0 98.3 03/07/18 12:00 98.0 73 20 144/64 96 98.0 Intake and Output 03/07/18 03/08/18 19:00 07:00 Intake Total 15 ml Output Total 1050 ml Balance 15 ml -1050 ml IV Total 15 ml Hemodialysis UF 1050 ml Laboratory Tests 03/08/18 05:35: White Blood Count 6.8, Red Blood Count 2.81L, Hemoglobin 8.5L, Hematocrit 26.7L , Mean Corpuscular Volume 95, Mean Corpuscular Hemoglobin 30.3, Mean Corpuscular Hemoglobin Concent 31.9L, Red Cell Distribution Width 18.8H, Platelet Count 121L, Mean Platelet Volume 6.7, Neutrophils (%) (Auto) 80.5H, Lymphocytes (%) (Auto) 11.6L, Monocytes (%) (Auto) 5.6, Eosinophils (%) (Auto) 1.2, Basophils (%) (Auto) 1.1, Prothrombin Time 12.8H, Prothromb Time International Ratio 1.2H, Sodium Level 136, Potassium Level 4.3, Chloride Level 92L, Carbon Dioxide Level 27, Anion Gap 18H, Blood Urea Nitrogen 74H, Creatinine 10.5H, Estimat Glomerular Filtration Rate 5.0, Glucose Level 64L, Calcium Level 8.0L, Total Bilirubin 1.4H, Direct Bilirubin 0.8H, Aspartate Amino Transf (AST/SGOT) 18, Alanine Aminotransferase (ALT/SGPT) 8L, Alkaline Phosphatase 469H, Total Protein 7.5, Albumin 2.6L, Globulin 4.9, Albumin/ Globulin Ratio 0.5L Height (Feet): 5 Height (Inches): 7.00 Weight (Pounds): 129 General Appearance: no apparent distress Respiratory/Chest: lungs clear Abdomen: soft Objective no change DALTON ROSENTHAL March 08, 2018 11:39
--- NOTE | 2018-03-08 12:16 | GI Progress Note ---
Assessment/Plan Problems: (1) Abnormal LFTs ICD Codes: R94.5 - Abnormal results of liver function studies SNOMED: 248397334 (2) Symptomatic anemia ICD Codes: D64.9 - Anemia, unspecified SNOMED: 244707179 (3) ESRD (end stage renal disease) on dialysis ICD Codes: N18.6 - End stage renal disease; Z99.2 - Dependence on renal dialysis SNOMED: 393030429 Status: stable Status Narrative Discussed with Dr. Matos. Assessment/Plan iron panel WNL OB stool negative x3 Hep C positive >> outpatient treatment SUMMARY OF FINDINGS: 1. Duodenitis. 2. Gastritis. 3. Gastric polyp about 8 mm removed with the snare polypectomy technique. RECOMMENDATIONS: s/p AMAURI Follow up biopsies and treat accordingly. fu nephro recs monitor H&H, prn transfusions ppi thiamine fu labs dc planning The patient was seen and examined at bedside and all new and available data was reviewed in the patients chart. I agree with the above findings, impression and plan. (Patient seen earlier today. Signature stamp does not reflect patient encounter time.). - Tushar Matos MD Subjective Subjective denies abdominal pain Objective Last 24 Hour Vital Signs Date Time Temp Pulse Resp B/P (MAP) Pulse Ox O2 Delivery O2 Flow Rate FiO2 03/08/18 11:56 98.0 70 20 155/70 98 98.0 03/08/18 08:32 97 Nasal Cannula 2.0 28 03/08/18 08:32 79 18 Nasal Cannula 2.0 28 03/08/18 08:32 Nasal Cannula 2.0 28 03/08/18 08:00 98.1 81 20 150/69 95 98.1 03/08/18 04:07 98.2 75 19 135/66 96 Nasal Cannula 2.0 98.2 03/08/18 00:00 Nasal Cannula 2.0 03/08/18 00:00 97.9 78 19 128/67 94 Nasal Cannula 2.0 97.9 03/07/18 20:00 96 Nasal Cannula 3.0 03/07/18 19:37 Room Air 03/07/18 19:36 96.0 76 20 149/62 Room Air 96.0 03/07/18 19:30 96 Nasal Cannula 2.0 28 03/07/18 19:30 76 20 Nasal Cannula 2.0 28 03/07/18 19:30 Nasal Cannula 2.0 28 03/07/18 17:30 Room Air 03/07/18 17:30 96.7 99 20 141/69 Room Air 96.7 03/07/18 15:43 208.2 71 16 96 03/07/18 15:35 97.9 74 22 135/63 96 Nasal Cannula 3.0 97.9 03/07/18 15:33 208.9 75 20 99 03/07/18 15:25 70 22 131/68 96 Nasal Cannula 3.0 03/07/18 15:12 73 22 131/71 95 Nasal Cannula 3.0 03/07/18 15:07 74 22 129/69 96 Nasal Cannula 3.0 03/07/18 15:02 98.3 74 22 138/62 95 Nasal Cannula 3.0 98.3 Intake and Output 03/07/18 03/08/18 19:00 07:00 Intake Total 15 ml Output Total 1050 ml Balance 15 ml -1050 ml IV Total 15 ml Hemodialysis UF 1050 ml Laboratory Tests Test 03/08/18 05:35 White Blood Count 6.8 K/UL (4.8-10.8) Red Blood Count 2.81 M/UL (4.70-6.10) L Hemoglobin 8.5 G/DL (14.2-18.0) L Hematocrit 26.7 % (42.0-52.0) L Mean Corpuscular Volume 95 FL (80-99) Mean Corpuscular Hemoglobin 30.3 PG (27.0-31.0) Mean Corpuscular Hemoglobin Concent 31.9 G/DL (32.0-36.0) L Red Cell Distribution Width 18.8 % (11.6-14.8) H Platelet Count 121 K/UL (150-450) L Mean Platelet Volume 6.7 FL (6.5-10.1) Neutrophils (%) (Auto) 80.5 % (45.0-75.0) H Lymphocytes (%) (Auto) 11.6 % (20.0-45.0) L Monocytes (%) (Auto) 5.6 % (1.0-10.0) Eosinophils (%) (Auto) 1.2 % (0.0-3.0) Basophils (%) (Auto) 1.1 % (0.0-2.0) Prothrombin Time 12.8 SEC (9.30-11.50) H Prothromb Time International Ratio 1.2 (0.9-1.1) H Sodium Level 136 MMOL/L (136-145) Potassium Level 4.3 MMOL/L (3.5-5.1) Chloride Level 92 MMOL/L (98-107) L Carbon Dioxide Level 27 MMOL/L (21-32) Anion Gap 18 mmol/L (5-15) H Blood Urea Nitrogen 74 mg/dL (7-18) H Creatinine 10.5 MG/DL (0.55-1.30) H Estimat Glomerular Filtration Rate 5.0 mL/min (>60) Glucose Level 64 MG/DL (74-106) L Calcium Level 8.0 MG/DL (8.5-10.1) L Total Bilirubin 1.4 MG/DL (0.2-1.0) H Direct Bilirubin 0.8 MG/DL (0.0-0.3) H Aspartate Amino Transf (AST/SGOT) 18 U/L (15-37) Alanine Aminotransferase (ALT/SGPT) 8 U/L (12-78) L Alkaline Phosphatase 469 U/L (46-116) H Total Protein 7.5 G/DL (6.4-8.2) Albumin 2.6 G/DL (3.4-5.0) L Globulin 4.9 g/dL Albumin/Globulin Ratio 0.5 (1.0-2.7) L Height (Feet): 5 Height (Inches): 7.00 Weight (Pounds): 129 General Appearance: WD/WN, no apparent distress, alert Cardiovascular: normal rate Respiratory/Chest: normal breath sounds, no respiratory distress Abdominal Exam: normal bowel sounds, non tender, soft Extremities: normal range of motion, non-tender Meliton Aldana NP March 08, 2018 12:16
[2018-03-08] MEDS ORDERED: LR 1000ml 1,000 ML IVLG SCH (12:27)
[2018-03-08] MEDS ORDERED: oxyCODONE HCL/Acetaminophen 5/325mg ORAL PRN (12:30)
[2018-03-08] MEDS ORDERED: Atropine Inj 1mg/10ml Syr IV PRN (12:30)
[2018-03-08] MEDS ORDERED: DiphenhydrAMINE 50mg/ml Inj IVP PRN (12:30)
[2018-03-08] MEDS ORDERED: HYDROcodone/Acetamin 7.5/325 tab ORAL PRN (12:30)
[2018-03-08] MEDS ORDERED: Norco 5mg/325mg tab ORAL PRN (12:30)
[2018-03-08] MEDS ORDERED: fentaNYL 100 mcg/2 mL IV PRN (12:30)
[2018-03-08] MEDS ORDERED: Midazolam 2mg/2ml Inj IVP PRN (12:30)
[2018-03-08] MEDS ORDERED: Labetalol 5mg/ml 20ml vial IV PRN (12:30)
[2018-03-08] MEDS ORDERED: LORazepam Inj 2mg/ml 1ml IV PRN (12:30)
[2018-03-08] MEDS ORDERED: Ketorolac 30mg Inj IV PRN ×2 (12:30)
[2018-03-08] MEDS ORDERED: Hydromorphone 0.5mg/0.5ml inj IVP PRN (12:30)
[2018-03-08] MEDS ORDERED: Heparin 5000 units/ml inj ONE (12:32)
[2018-03-08] MEDS ORDERED: Bacitracin Oint 15gm Tube TOPIC ONE (12:32)
[2018-03-08] MEDS ORDERED: Heparin 1000 units/ml 1ml Vial ONE (12:32)
[2018-03-08] MEDS ORDERED: Thrombin 5000 units TOPIC ONE (12:32)
[2018-03-08] MEDS ORDERED: Bacitracin 50000 Units Vial ONE (12:33)
[2018-03-08] MEDS ORDERED: Lidocaine 1% Plain 30 ml INJ ONE (12:33)
[2018-03-08] MEDS ORDERED: Bupivacaine 0.25% Inj 30ml INJ ONE (12:33)
--- NOTE | 2018-03-08 12:35 | Anethesia Preoperative Eval ---
Anesthesia Pre-op PMH/ROS General Date of Evaluation: March 08, 2018 Time of Evaluation: 12:56 Anesthesiologist: Brian ASA Score: ASA 4 Mallampati Score Class I : Soft palate, uvula, fauces, pillars visible Class II: Soft palate, uvula, fauces visible Class III: Soft palate, base of uvula visible Class IV: Only hard plate visible Mallampati Classification: Class II Surgeon: Ángel Diagnosis: R Arm Bleeding Surgical Procedure: R Arm Removal AV Fistula with Repair Anesthesia History: none Social History: current smoker, drug use - Abuse Family History: no anesthesia problems Allergies: Coded Allergies: No Known Allergies (Unverified , 02/02/18) Medications: see eMAR Past Medical History Cardiovascular: Reports: HTN Pulmonary: Reports: COPD Gastrointestinal/Genitourinary: Reports: ESRD - M, W, F, other - BPH, Hep C+ Hematology/Immune: Reports: anemia, DVT, other - Amyloidosis PMH Narrative: (1) Acute hyperkalemia (2) Abnormal laboratory test result (3) ESRD (end stage renal disease) on dialysis (4) Hypertension, uncontrolled (5) Symptomatic anemia (6) Abnormal LFTs (7) DVT (deep venous thrombosis) (8) Left leg DVT (9) Acute respiratory failure (10) ESRF (end stage renal failure) (11) Pulmonary edema (12) SOB (shortness of breath) (13) Anemia in chronic kidney disease (CKD) (14) Respiratory failure Anesthesia Pre-op Phys. Exam Physician Exam Last Vital Signs Date Time Temp Pulse Resp B/P (MAP) Pulse Ox O2 Delivery O2 Flow Rate FiO2 03/08/18 11:56 98.0 70 20 155/70 98 98.0 03/08/18 08:32 Nasal Cannula 2.0 28 Constitutional: NAD Neurologic: CN 2-12 intact Cardiovascular: RRR Respiratory: CTA Gastrointestinal: S/NT/ND Airway Exam Mallampati Score: Class II MO: limited ROM: limited Teeth: missing, intact Anesthesia Pre-op A/P Labs Hematology Test 03/08/18 05:35 White Blood Count 6.8 K/UL (4.8-10.8) Red Blood Count 2.81 M/UL (4.70-6.10) L Hemoglobin 8.5 G/DL (14.2-18.0) L Hematocrit 26.7 % (42.0-52.0) L Mean Corpuscular Volume 95 FL (80-99) Mean Corpuscular Hemoglobin 30.3 PG (27.0-31.0) Mean Corpuscular Hemoglobin Concent 31.9 G/DL (32.0-36.0) L Red Cell Distribution Width 18.8 % (11.6-14.8) H Platelet Count 121 K/UL (150-450) L Mean Platelet Volume 6.7 FL (6.5-10.1) Neutrophils (%) (Auto) 80.5 % (45.0-75.0) H Lymphocytes (%) (Auto) 11.6 % (20.0-45.0) L Monocytes (%) (Auto) 5.6 % (1.0-10.0) Eosinophils (%) (Auto) 1.2 % (0.0-3.0) Basophils (%) (Auto) 1.1 % (0.0-2.0) Coagulation Test 03/08/18 05:35 Prothrombin Time 12.8 SEC (9.30-11.50) H Prothromb Time International Ratio 1.2 (0.9-1.1) H Chemistry Test 03/08/18 05:35 Sodium Level 136 MMOL/L (136-145) Potassium Level 4.3 MMOL/L (3.5-5.1) Chloride Level 92 MMOL/L (98-107) L Carbon Dioxide Level 27 MMOL/L (21-32) Anion Gap 18 mmol/L (5-15) H Blood Urea Nitrogen 74 mg/dL (7-18) H Creatinine 10.5 MG/DL (0.55-1.30) H Estimat Glomerular Filtration Rate 5.0 mL/min (>60) Glucose Level 64 MG/DL (74-106) L Calcium Level 8.0 MG/DL (8.5-10.1) L Total Bilirubin 1.4 MG/DL (0.2-1.0) H Direct Bilirubin 0.8 MG/DL (0.0-0.3) H Aspartate Amino Transf (AST/SGOT) 18 U/L (15-37) Alanine Aminotransferase (ALT/SGPT) 8 U/L (12-78) L Alkaline Phosphatase 469 U/L (46-116) H Total Protein 7.5 G/DL (6.4-8.2) Albumin 2.6 G/DL (3.4-5.0) L Globulin 4.9 g/dL Albumin/Globulin Ratio 0.5 (1.0-2.7) L Risk Assessment & Plan Assessment: ASA 4 Plan: GA, BIS Status Change Before Surgery: No Pre-Antibiotics Drug: Best Cagle MD March 08, 2018 12:34
[2018-03-08] MEDS ORDERED: Dexamethasone 4mg/ml vial ONE (12:45)
[2018-03-08] MEDS ORDERED: Lidocaine 1% MPF 10mg/ml 5ml ONE (12:45)
[2018-03-08] MEDS ORDERED: Propofol 200mg/20ml IV ONE (12:45)
--- NOTE | 2018-03-08 12:47 | Immediate Post-Op Evaluation ---
Immediate Post-Op Evalulation Immediate Post-Op Evalulation Procedure: R Arm Removal AV Fistula with Repair Date of Evaluation: March 08, 2018 Time of Evaluation: 17:35 IV Fluids: 750 NS Blood Products: 1 u PRBC Estimated Blood Loss: 250 Urinary Output: 0 Blood Pressure Systolic: 122 Blood Pressure Diastolic: 64 Pulse Rate: 87 Respiratory Rate: 16 O2 Sat by Pulse Oximetry: 97 Temperature (Fahrenheit): 98.7 Pain Score (1-10): 2 Nausea: No Vomiting: No Complications 0 Patient Status: awake, reacts, patent, none Hydration Status: adequate Dru gram Ancef , 200 mg Ceftaroline IV Given Within 1 Hr of Incision: Yes Time Given: 13:45 Best Torres MD March 08, 2018 12:47
--- NOTE | 2018-03-08 12:48 | 48 Hour Post Anesthesia Eval ---
Post Anesthesia Evaluation Procedure: R Arm Removal AV Fistula with Repair Date of Evaluation: March 08, 2018 Time of Evaluation: 19:43 Blood Pressure Systolic: 162 0: 86 Pulse Rate: 82 Respiratory Rate: 18 Temperature (Fahrenheit): 98.6 O2 Sat by Pulse Oximetry: 98 Airway: patent Nausea: No Vomiting: No Pain Intensity: 3 Hydration Status: adequate Cardiopulmonary Status: Stable Mental Status/LOC: patient returned to baseline Follow-up Care/Observations: 0 Post-Anesthesia Complications: 0 Follow-up care needed: ready to discharge eBst Torres MD March 08, 2018 12:48
--- NOTE | 2018-03-08 12:59 | Pre-Procedure Note/Attestation ---
Pre-Procedure Note/Attestation Complete Prior to Procedure Planned Procedure: right Procedure Narrative: Removal of right arm av graft and possible brachial artery bypass & dialysis catheter Indications for Procedure Pre-Operative Diagnosis: Infected right arm av graft with blister Recurrent MRSA sepsis bacteremia Attestation I attest that I discussed the nature of the procedure; its benefits; risks and complications; and alternatives (and the risks and benefits of such alternatives ), prior to the procedure, with the patient (or the patient's legal provider relations representative). I attest that, if there was a reasonable possibility of needing a blood transfusion, the patient (or the patient's legal provider relations representative) was given the [place] [employer] [facility] standardized written summary, pursuant to the [place] Blood Safety Act ([place] Health and Safety Code # 1645, as amended). I attest that I re-evaluated the patient just prior to the surgery and that there has been no change in the patient's H&P, except as documented below: Jon Neal MD March 08, 2018 12:59
[2018-03-08] MEDS ORDERED: NS Irrig 1000ml ONE (13:00)
[2018-03-08] MEDS ORDERED: Sterile Water Irrig 1000ml IRRIG ONE (13:00)
[2018-03-08] MEDS ORDERED: Zemuron 50mg/5ml Inj IV ONE (13:08)
[2018-03-08] MEDS ORDERED: fentaNYL 100 mcg/2 mL IV ONE (13:46)
--- NOTE | 2018-03-08 14:24 | General Progress Note ---
Assessment/Plan Problem List: (1) Abnormal laboratory test result ICD Codes: R89.9 - Unspecified abnormal finding in specimens from other organs , systems and tissues SNOMED: 679513476 (2) ESRD (end stage renal disease) on dialysis ICD Codes: N18.6 - End stage renal disease; Z99.2 - Dependence on renal dialysis SNOMED: 218820933 (3) Hypertension, uncontrolled ICD Codes: I10 - Essential (primary) hypertension SNOMED: 33805210, 26145997 (4) Symptomatic anemia ICD Codes: D64.9 - Anemia, unspecified SNOMED: 597676339 (5) Acute hyperkalemia ICD Codes: E87.5 - Hyperkalemia SNOMED: 3208056 (6) DVT (deep venous thrombosis) ICD Codes: I82.409 - Acute embolism and thrombosis of unspecified deep veins of unspecified lower extremity SNOMED: 224897241 (7) SOB (shortness of breath) ICD Codes: R06.02 - Shortness of breath SNOMED: 440532103 (8) Respiratory failure ICD Codes: J96.90 - Respiratory failure, unspecified, unspecified whether with hypoxia or hypercapnia SNOMED: 069599734 Status: unchanged Assessment/Plan ot pt diet o2 pulm tx gi/heme f/u anticoag pulm transfuse prn cbc bmp am shunt sx Subjective Constitutional: Reports: weakness Allergies: Coded Allergies: No Known Allergies (Unverified , 02/02/18) All Systems: reviewed and negative except above Subjective sleepy awaitng shunt surgery Objective Last 24 Hour Vital Signs Date Time Temp Pulse Resp B/P (MAP) Pulse Ox O2 Delivery O2 Flow Rate FiO2 03/08/18 11:56 98.0 70 20 155/70 98 98.0 03/08/18 08:32 97 Nasal Cannula 2.0 28 03/08/18 08:32 79 18 Nasal Cannula 2.0 28 03/08/18 08:32 Nasal Cannula 2.0 28 03/08/18 08:00 98.1 81 20 150/69 95 98.1 03/08/18 04:07 98.2 75 19 135/66 96 Nasal Cannula 2.0 98.2 03/08/18 00:00 Nasal Cannula 2.0 03/08/18 00:00 97.9 78 19 128/67 94 Nasal Cannula 2.0 97.9 03/07/18 20:00 96 Nasal Cannula 3.0 03/07/18 19:37 Room Air 03/07/18 19:36 96.0 76 20 149/62 Room Air 96.0 03/07/18 19:30 96 Nasal Cannula 2.0 28 03/07/18 19:30 76 20 Nasal Cannula 2.0 28 03/07/18 19:30 Nasal Cannula 2.0 28 03/07/18 17:30 Room Air 03/07/18 17:30 96.7 99 20 141/69 Room Air 96.7 03/07/18 15:43 208.2 71 16 96 03/07/18 15:35 97.9 74 22 135/63 96 Nasal Cannula 3.0 97.9 03/07/18 15:33 208.9 75 20 99 03/07/18 15:25 70 22 131/68 96 Nasal Cannula 3.0 03/07/18 15:12 73 22 131/71 95 Nasal Cannula 3.0 03/07/18 15:07 74 22 129/69 96 Nasal Cannula 3.0 03/07/18 15:02 98.3 74 22 138/62 95 Nasal Cannula 3.0 98.3 Intake and Output 03/07/18 03/08/18 19:00 07:00 Intake Total 15 ml Output Total 1050 ml Balance 15 ml -1050 ml IV Total 15 ml Hemodialysis UF 1050 ml Laboratory Tests 03/08/18 05:35: White Blood Count 6.8, Red Blood Count 2.81L, Hemoglobin 8.5L, Hematocrit 26.7L , Mean Corpuscular Volume 95, Mean Corpuscular Hemoglobin 30.3, Mean Corpuscular Hemoglobin Concent 31.9L, Red Cell Distribution Width 18.8H, Platelet Count 121L, Mean Platelet Volume 6.7, Neutrophils (%) (Auto) 80.5H, Lymphocytes (%) (Auto) 11.6L, Monocytes (%) (Auto) 5.6, Eosinophils (%) (Auto) 1.2, Basophils (%) (Auto) 1.1, Prothrombin Time 12.8H, Prothromb Time International Ratio 1.2H, Sodium Level 136, Potassium Level 4.3, Chloride Level 92L, Carbon Dioxide Level 27, Anion Gap 18H, Blood Urea Nitrogen 74H, Creatinine 10.5H, Estimat Glomerular Filtration Rate 5.0, Glucose Level 64L, Calcium Level 8.0L, Total Bilirubin 1.4H, Direct Bilirubin 0.8H, Aspartate Amino Transf (AST/SGOT) 18, Alanine Aminotransferase (ALT/SGPT) 8L, Alkaline Phosphatase 469H, Total Protein 7.5, Albumin 2.6L, Globulin 4.9, Albumin/ Globulin Ratio 0.5L Height (Feet): 5 Height (Inches): 7.00 Weight (Pounds): 129 General Appearance: lethargic EENT: normal ENT inspection Neck: normal alignment Cardiovascular: normal peripheral pulses, normal rate, regular rhythm Respiratory/Chest: chest wall non-tender, decreased breath sounds Abdomen: normal bowel sounds, non tender, soft Extremities: normal inspection Edema: no edema noted Arm (L), no edema noted Arm (R), no edema noted Leg (L), no edema noted Leg (R), no edema noted Pedal (L), no edema noted Pedal (R), no edema noted Generalized Neurologic: motor weakness Skin: normal pigmentation, warm/dry Lebron Swift DO March 08, 2018 14:23
[2018-03-08] MEDS ORDERED: Heparin Sod 1000 units/ml 10ml ONE (14:37)
--- NOTE | 2018-03-08 14:37 | Pulmonology Progress Note ---
Assessment/Plan Problems: (1) Sepsis (2) Bacteremia (3) Acute respiratory failure Assessment & Plan: resolved (4) ESRF (end stage renal failure) (5) Pulmonary edema (6) DVT (deep venous thrombosis) Assessment/Plan AMAURI negative infected fistula vascular evaluation on nasal cannula now HD by branding machine tender respiratory treatment titrate fio2 to sat of 92% check Hemoglobin, remains around 7 all meds reviewed Subjective ROS Limited/Unobtainable: No Constitutional: Reports: no symptoms HEENT: Repors: no symptoms Allergies: Coded Allergies: No Known Allergies (Unverified , 02/02/18) Objective Last 24 Hour Vital Signs Date Time Temp Pulse Resp B/P (MAP) Pulse Ox O2 Delivery O2 Flow Rate FiO2 03/08/18 11:56 98.0 70 20 155/70 98 98.0 03/08/18 08:32 97 Nasal Cannula 2.0 28 03/08/18 08:32 79 18 Nasal Cannula 2.0 28 03/08/18 08:32 Nasal Cannula 2.0 28 03/08/18 08:00 98.1 81 20 150/69 95 98.1 03/08/18 04:07 98.2 75 19 135/66 96 Nasal Cannula 2.0 98.2 03/08/18 00:00 Nasal Cannula 2.0 03/08/18 00:00 97.9 78 19 128/67 94 Nasal Cannula 2.0 97.9 03/07/18 20:00 96 Nasal Cannula 3.0 03/07/18 19:37 Room Air 03/07/18 19:36 96.0 76 20 149/62 Room Air 96.0 03/07/18 19:30 96 Nasal Cannula 2.0 28 03/07/18 19:30 76 20 Nasal Cannula 2.0 28 03/07/18 19:30 Nasal Cannula 2.0 28 03/07/18 17:30 Room Air 03/07/18 17:30 96.7 99 20 141/69 Room Air 96.7 03/07/18 15:43 208.2 71 16 96 03/07/18 15:35 97.9 74 22 135/63 96 Nasal Cannula 3.0 97.9 03/07/18 15:33 208.9 75 20 99 03/07/18 15:25 70 22 131/68 96 Nasal Cannula 3.0 03/07/18 15:12 73 22 131/71 95 Nasal Cannula 3.0 03/07/18 15:07 74 22 129/69 96 Nasal Cannula 3.0 03/07/18 15:02 98.3 74 22 138/62 95 Nasal Cannula 3.0 98.3 Intake and Output 03/07/18 03/08/18 19:00 07:00 Intake Total 15 ml Output Total 1050 ml Balance 15 ml -1050 ml IV Total 15 ml Hemodialysis UF 1050 ml Objective General Appearance: WD/WN HEENT: normocephalic, atraumatic Respiratory/Chest: chest wall non-tender, lungs clear Cardiovascular: normal peripheral pulses, normal rate, regular rhythm Abdomen: normal bowel sounds, soft, non tender, no organomegaly, non distended Extremities: no cyanosis, no clubbing, no edema Skin: no rash, no lesions 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 Microbiology Date/Time Source Procedure Growth Status 03/06/18 18:15 Blood Blood Culture - Preliminary Resulted 03/06/18 18:00 Blood Blood Culture - Preliminary Resulted 03/06/18 15:30 Internal Jugular Jugular Catheter Tip Culture - Preliminary NO GROWTH AFTER 24 HOURS Resulted Laboratory Tests 03/08/18 05:35: White Blood Count 6.8, Red Blood Count 2.81L, Hemoglobin 8.5L, Hematocrit 26.7L , Mean Corpuscular Volume 95, Mean Corpuscular Hemoglobin 30.3, Mean Corpuscular Hemoglobin Concent 31.9L, Red Cell Distribution Width 18.8H, Platelet Count 121L, Mean Platelet Volume 6.7, Neutrophils (%) (Auto) 80.5H, Lymphocytes (%) (Auto) 11.6L, Monocytes (%) (Auto) 5.6, Eosinophils (%) (Auto) 1.2, Basophils (%) (Auto) 1.1, Prothrombin Time 12.8H, Prothromb Time International Ratio 1.2H, Sodium Level 136, Potassium Level 4.3, Chloride Level 92L, Carbon Dioxide Level 27, Anion Gap 18H, Blood Urea Nitrogen 74H, Creatinine 10.5H, Estimat Glomerular Filtration Rate 5.0, Glucose Level 64L, Calcium Level 8.0L, Total Bilirubin 1.4H, Direct Bilirubin 0.8H, Aspartate Amino Transf (AST/SGOT) 18, Alanine Aminotransferase (ALT/SGPT) 8L, Alkaline Phosphatase 469H, Total Protein 7.5, Albumin 2.6L, Globulin 4.9, Albumin/ Globulin Ratio 0.5L Current Medications Medications (Trade) Dose Ordered Sig/Blessing Route PRN Reason Start Time Stop Time Status Last Admin Dose Admin Acetaminophen (Tylenol) 500 mg 3XW PRN ORAL WITH DIALYSIS 03/01/18 09:00 03/27/18 08:59 Acetaminophen (Tylenol) 650 mg Q4H PRN RECTAL Mild Pain/Temp > 100.5 03/01/18 01:15 03/26/18 17:14 Acetaminophen (Tylenol) 650 mg Q6H PRN ORAL Mild Pain/Temp > 100.5 02/28/18 23:00 03/25/18 10:59 03/01/18 03:47 Acetaminophen/ Hydrocodone Bitart ([place] 5/325) 1 tab Q1H PRN ORAL Mild Pain (Pain Scale 1-3) 03/08/18 12:30 03/08/18 20:00 Acetaminophen/ Hydrocodone Bitart ([place] 7.5/325) 1 tab Q1H PRN ORAL Moderate Pain (Pain Scale 4-6) 03/08/18 12:30 03/08/18 20:00 Al Hydroxide/Mg Hydroxide (Mylanta) 15 ml Q1H PRN ORAL gi upset 03/08/18 12:30 03/08/18 20:00 Atropine Sulfate (Atropine) 0.5 mg Q5M PRN IV HR <40 BPM 03/08/18 12:30 03/08/18 20:00 Ceftaroline Fosamil 200 mg/ Sodium Chloride 55 ml @ 55 mls/hr EVERY 12 HOURS IVPB 03/04/18 18:00 03/11/18 17:59 03/07/18 21:23 Chlorhexidine Gluconate (Miriam-Hex 2%) 1 applic DAILY@2000 TOPIC 03/01/18 20:00 03/28/18 19:59 03/05/18 20:43 Clonidine HCl (Catapres Tab) 0.1 mg EVERY 4 HOURS PRN ORAL FOR BP > 160. 03/01/18 01:00 03/25/18 10:44 Daptomycin 450 mg/ Sodium Chloride 110 ml @ 200 mls/hr Q48H IV 03/07/18 17:00 03/14/18 16:59 03/07/18 20:09 Diphenhydramine HCl (Benadryl) 25 mg Q15M PRN IVP Itching 03/08/18 12:30 03/08/18 20:00 Diphenhydramine HCl (Benadryl) 50 mg Q6H PRN ORAL Itching 02/28/18 23:00 03/25/18 10:59 03/02/18 15:11 Docusate Sodium (Colace) 100 mg THREE TIMES A DAY ORAL 03/01/18 18:00 03/31/18 17:59 03/05/18 17:32 Epoetin Alfonzo (Procrit (for ESRD on dialysis)) 10,000 units SUN-SUN-SUN SUBQ 03/01/18 21:00 03/27/18 20:59 03/06/18 21:44 Fentanyl Citrate (Sublimaze 100 mcg/2 mL) 25 mcg Q10M PRN IV Moderate Pain (Pain Scale 4-6) 03/08/18 12:30 03/08/18 20:00 Haloperidol Lactate (Haldol) 5 mg Q4H PRN IM AGITATION 02/28/18 23:00 03/25/18 10:59 03/07/18 11:54 Hydralazine HCl (Apresoline) 5 mg Q30M PRN IV SBP>160 / DBP>90 03/08/18 12:30 03/08/18 20:00 Hydromorphone HCl (Dilaudid) 0.5 mg Q15M PRN IVP Severe Pain (Pain Scale 7-10) 03/08/18 12:30 03/08/18 20:00 Iopamidol (Isovue-300 100ml) 100 ml NOW PRN INJ Radiology Procedure 03/07/18 16:15 03/09/18 16:12 Ketorolac Tromethamine (Toradol 30mg) 15 mg Q1H PRN IV Moderate Breakthru Pain (5-7) 03/08/18 12:30 03/08/18 20:00 Ketorolac Tromethamine (Toradol 30mg) 30 mg Q1H PRN IV Severe Breakthru Pain (>7) 03/08/18 12:30 03/08/18 20:00 Labetalol HCl (Normodyne) 5 mg Q10M PRN IV SBP>160 / DBP>90 03/08/18 12:30 03/08/18 20:00 Lactated Ringer's 1,000 ml @ 10 mls/hr Q24H IVLG 03/08/18 12:27 03/08/18 20:00 Lansoprazole (Prevacid) 30 mg DAILY@0730 ORAL 03/01/18 07:30 03/31/18 07:29 03/05/18 06:35 Lorazepam (Ativan 2mg/ml 1ml) 1 mg Q15M PRN IV For Anxiety 03/08/18 12:30 03/08/18 20:00 Midazolam HCl (Versed 2mg/2ml vial) 1 mg Q15M PRN IVP For Anxiety 03/08/18 12:30 03/08/18 20:00 Nicotine (Nicoderm) 1 patch Q24H TDERMAL 03/01/18 09:00 03/26/18 08:59 03/05/18 10:24 Ondansetron HCl (Zofran) 4 mg Q1H PRN IVP Nausea & Vomiting 03/08/18 12:30 03/08/18 20:00 Oxycodone/ Acetaminophen (Percocet 10/325) 1 tab Q4H PRN ORAL severe pain (SCALE 7-10) 03/08/18 09:30 03/15/18 09:29 Oxycodone/ Acetaminophen (Percocet 5-325) 1 tab Q1H PRN ORAL Severe Pain (Pain Scale 7-10) 03/08/18 12:30 03/08/18 20:00 Prochlorperazine (Compazine) 10 mg Q6H PRN IVP Nausea & Vomiting 02/28/18 23:00 03/25/18 10:59 Quetiapine Fumarate (SEROquel) 25 mg QHS ORAL 03/01/18 21:00 03/25/18 20:59 03/07/18 21:23 Sevelamer Carbonate (Renvela) 2,400 mg TID@0730,1130,1730 ORAL 03/07/18 11:30 04/01/18 07:29 Clement Mcleod MD March 08, 2018 14:37
--- NOTE | 2018-03-08 14:45 | Progress Note ---
DATE: 03/08/2018 SUBJECTIVE: This is a 63-year-old male patient with anemia and GI bleeding, but this patient continues to have increased mood lability, altered mental status, confusion, worsened by stress of his medical illness. That is why, his attending has requested daily psychiatric consultation. MENTAL STATUS EXAMINATION: This is a 63-year-old male. Appearance is disheveled. Attitude, irritable and agitated. Affect, guarded and restricted. Intellect poor. Mood, depressed and anxious. Motor activity, psychomotor agitation. Attention span is poor. Orientation x2. Speech is pressured. Thought process, disorganized and illogical. Thought content, auditory hallucinations and paranoid delusions. Insight and judgment is poor. DIAGNOSIS: Major depression with psychotic features. PLAN: To treat him with Seroquel 25 mg at bedtime. Chart reviewed and discussed with staff. Seen and assessed at bedside. An 18 to 20 minutes of supportive psychotherapy provided. Rony Corral M.D. DR: PAM JOB#: [id number] CC:
[2018-03-08] MEDS ORDERED: Protamine Sulfate Inj ONE (15:28)
[2018-03-08] MEDS ORDERED: Sodium Chloride 10ml vial INJ ONE (16:58)
--- NOTE | 2018-03-08 17:42 | Operative Note - PDOC ---
Operative Note Operative Note Pre-op Diagnosis: Infected right arm av graft with blister Recurrent MRSA sepsis bacteremia Procedure: 1) Complete removal of right arm av graft 2) I&D right arm wound 3) Right proximal brachial artery to distal right brachial artery bypass (with reversed right basilic vein) 4) Left IJ dialysis catheter with pigtail Post-op Diagnosis: same Post-op Diagnosis: same as pre-op Operative Findings: other - no vegatation noted Surgeon: Jon Neal MD Anesthesiologist: Best Alejo MD Anesthesia: general, moderate sedation Specimen: yes Complications: none Condition: stable Fluids: none Estimated Blood Loss: volume - 250cc Drains: none Implant(s) used?: Yes - Left IJ Trialysis dialysis catheter Jon Neal MD March 08, 2018 17:42
[2018-03-08 18:13] LABS: HEMATOCRIT 32.8 % (42.0-52.0); HEMOGLOBIN 10.4 G/DL (14.2-18.0); MEAN CORPUSCULAR VOLUME 93 FL (80-99); PLATELET COUNT 131 K/UL (150-450); RED BLOOD COUNT 3.52 M/UL (4.70-6.10); RED CELL DISTRIBUTION WIDTH 19.2 % (11.6-14.8); WHITE BLOOD COUNT 9.9 K/UL (4.8-10.8)
[2018-03-08 18:15] LABS: BASOPHILS % (AUTO) 0.8 % (0.0-2.0); EOSINOPHILS % (AUTO) 0.2 % (0.0-3.0); LYMPHOCYTES % (AUTO) 2.2 % (20.0-45.0); MONOCYTES % (AUTO) 0.6 % (1.0-10.0); NEUTROPHILS % (AUTO) 96.2 % (45.0-75.0)
[2018-03-08 18:22] LABS: ANION GAP 19 mmol/L (5-15); BLOOD UREA NITROGEN 75 mg/dL (7-18); CALCIUM 7.9 MG/DL (8.5-10.1); CARBON DIOXIDE 23 MMOL/L (21-32); CHLORIDE 94 MMOL/L (98-107); CREATININE 10.9 MG/DL (0.55-1.30); INR 1.2 (0.9-1.1); POTASSIUM 5.8 MMOL/L (3.5-5.1); SODIUM 136 MMOL/L (136-145)
[2018-03-08] MEDS: Dyna-Hex 2% Top Sol 2oz TOPIC SCH (18:52)
--- NOTE | 2018-03-08 19:11 | Diagnostic Imaging Report ---
EXAM: XR Chest, 1 View CLINICAL HISTORY: LINE TECHNIQUE: Frontal view of the chest. COMPARISON: 03/04/2018 FINDINGS: Lungs: Persistent right basilar opacity. Pleural space: No pneumothorax or significant pleural effusion. Heart: Stable cardiomediastinal silhouette. Mediastinum: See above. Bones/joints: No acute osseous abnormality. Tubes, lines and devices: Left IJ central venous catheter tip projects over the superior vena cava. Upper abdomen: Elevated right hemidiaphragm. IMPRESSION: Left IJ central venous catheter tip projects over the superior vena cava. No pneumothorax or significant pleural effusion.
[2018-03-08] MEDS ORDERED: Dyna-Hex 2% Top Sol 2oz TOPIC SCH (21:00)
[2018-03-08] MEDS ORDERED: Haloperidol 5mg/ml Inj IM PRN (22:00)
[2018-03-08] MEDS ORDERED: Acetaminophen 650 MG SUPP RECTAL PRN (22:00)
[2018-03-09] VITALS (20 sets, daily range): BP systolic 107–184; BP diastolic 41–71
[2018-03-09] MEDS: Epogen (for ESRD on dialysis) SUBQ SCH (00:58)
[2018-03-09] MEDS: Ceftaroline 200 MG in NS 55 ML IVPB SCH (00:59)
[2018-03-09 05:58] LABS: ANION GAP 22 mmol/L (5-15); BLOOD UREA NITROGEN 41 mg/dL (7-18); CALCIUM 8.4 MG/DL (8.5-10.1); CARBON DIOXIDE 26 MMOL/L (21-32); CHLORIDE 92 MMOL/L (98-107); CREATININE 6.6 MG/DL (0.55-1.30); PHOSPHORUS 8.4 MG/DL (2.5-4.9); POTASSIUM 3.7 MMOL/L (3.5-5.1); SODIUM 139 MMOL/L (136-145)
[2018-03-09 06:06] LABS: MEAN CORPUSCULAR VOLUME 93 FL (80-99); PLATELET COUNT 141 K/UL (150-450); RED BLOOD COUNT 3.43 M/UL (4.70-6.10); RED CELL DISTRIBUTION WIDTH 19.6 % (11.6-14.8); WHITE BLOOD COUNT 9.3 K/UL (4.8-10.8)
[2018-03-09 06:09] LABS: ALANINE AMINOTRANSFERASE 9 U/L (12-78); ALBUMIN 2.8 G/DL (3.4-5.0); ALKALINE PHOSPHATASE 704 U/L (46-116); ASPARTATE AMINO TRANSFERASE 18 U/L (15-37); BILIRUBIN,DIRECT 0.7 MG/DL (0.0-0.3); BILIRUBIN,TOTAL 1.3 MG/DL (0.2-1.0)
--- NOTE | 2018-03-09 08:59 | General Progress Note ---
Assessment/Plan Problem List: (1) Abnormal laboratory test result ICD Codes: R89.9 - Unspecified abnormal finding in specimens from other organs , systems and tissues SNOMED: 472059730 (2) ESRD (end stage renal disease) on dialysis ICD Codes: N18.6 - End stage renal disease; Z99.2 - Dependence on renal dialysis SNOMED: 655839755 (3) Hypertension, uncontrolled ICD Codes: I10 - Essential (primary) hypertension SNOMED: 81401703, 27384748 (4) Symptomatic anemia ICD Codes: D64.9 - Anemia, unspecified SNOMED: 130717262 (5) Acute hyperkalemia ICD Codes: E87.5 - Hyperkalemia SNOMED: 9201247 (6) DVT (deep venous thrombosis) ICD Codes: I82.409 - Acute embolism and thrombosis of unspecified deep veins of unspecified lower extremity SNOMED: 255588365 (7) SOB (shortness of breath) ICD Codes: R06.02 - Shortness of breath SNOMED: 043642020 (8) Respiratory failure ICD Codes: J96.90 - Respiratory failure, unspecified, unspecified whether with hypoxia or hypercapnia SNOMED: 127933929 Status: unchanged Assessment/Plan ot pt diet o2 pulm tx gi/heme f/u anticoag pulm transfuse prn cbc bmp am shunt f /u Subjective Constitutional: Reports: weakness Allergies: Coded Allergies: No Known Allergies (Unverified , 02/02/18) All Systems: reviewed and negative except above Subjective sleepy awaitng shunt surgery Objective Last 24 Hour Vital Signs Date Time Temp Pulse Resp B/P (MAP) Pulse Ox O2 Delivery O2 Flow Rate FiO2 03/09/18 07:10 92 24 Nasal Cannula 2.0 28 03/09/18 07:10 Nasal Cannula 2.0 28 03/09/18 07:10 92 Nasal Cannula 2.0 28 03/09/18 07:02 91 13 146/65 93 Nasal Cannula 3.0 03/09/18 06:03 93 17 161/58 93 Nasal Cannula 3.0 03/09/18 05:00 91 12 136/56 93 Nasal Cannula 3.0 03/09/18 04:00 97.7 94 14 148/55 94 Nasal Cannula 3.0 97.7 03/09/18 03:00 94 21 165/60 93 Nasal Cannula 3.0 03/09/18 02:00 93 12 184/71 93 Nasal Cannula 3.0 03/09/18 01:00 90 11 162/57 94 Nasal Cannula 3.0 03/09/18 00:43 Nasal Cannula 3.0 03/09/18 00:40 97.6 95 12 122/49 Nasal Cannula 3.0 97.6 03/09/18 00:00 93 18 107/41 92 Nasal Cannula 2.0 03/08/18 23:00 96 18 104/46 92 Nasal Cannula 2.0 03/08/18 22:00 91 16 126/56 94 Nasal Cannula 2.0 03/08/18 21:30 97.5 86 12 162/64 Nasal Cannula 3.0 97.5 03/08/18 21:30 Nasal Cannula 3.0 03/08/18 21:00 93 15 162/64 95 Nasal Cannula 2.0 03/08/18 20:00 93 15 155/62 94 Nasal Cannula 2.0 03/08/18 19:34 80 19 Nasal Cannula 2.0 28 03/08/18 19:34 97 Nasal Cannula 2.0 28 03/08/18 19:34 Nasal Cannula 2.0 28 03/08/18 19:00 94.5 92 14 142/58 92 Nasal Cannula 2.0 94.5 03/08/18 18:00 97.9 88 20 59/59 96 Simple Mask 6.0 97.9 03/08/18 17:50 85 19 127/59 96 Simple Mask 6.0 03/08/18 17:40 87 15 117/54 96 Simple Mask 6.0 03/08/18 17:30 89 20 101/55 96 Simple Mask 6.0 03/08/18 17:30 209.5 82 18 98 03/08/18 17:29 209.7 87 16 97 03/08/18 17:20 98.7 87 16 122/64 99 Simple Mask 6.0 98.7 03/08/18 11:56 98.0 70 20 155/70 98 98.0 Intake and Output 03/08/18 03/09/18 19:00 07:00 Intake Total 0 ml 55 ml Output Total 2138 ml Balance 0 ml -2083 ml Intake Oral 0 ml 0 ml IV Total 55 ml Output Urine Total 0 ml Hemodialysis UF 2138 ml Laboratory Tests 03/08/18 18:00: White Blood Count 9.9, Red Blood Count 3.52L, Hemoglobin 10.4L, Hematocrit 32.8L , Mean Corpuscular Volume 93, Mean Corpuscular Hemoglobin 29.6, Mean Corpuscular Hemoglobin Concent 31.7L, Red Cell Distribution Width 19.2H, Platelet Count 131L, Mean Platelet Volume 8.0, Neutrophils (%) (Auto) 96.2H, Lymphocytes (%) (Auto) 2.2L, Monocytes (%) (Auto) 0.6L, Eosinophils (%) (Auto) 0.2, Basophils (%) (Auto) 0.8, Prothrombin Time 13.0H, Prothromb Time International Ratio 1.2H, Sodium Level 136, Potassium Level 5.8H, Chloride Level 94L, Carbon Dioxide Level 23, Anion Gap 19H, Blood Urea Nitrogen 75H, Creatinine 10.9H, Estimat Glomerular Filtration Rate 4.8, Glucose Level 81, Calcium Level 7.9L 03/09/18 03:35: White Blood Count 9.3, Red Blood Count 3.43L, Hemoglobin 10.0L, Hematocrit 32.0L , Mean Corpuscular Volume 93, Mean Corpuscular Hemoglobin 29.3, Mean Corpuscular Hemoglobin Concent 31.4L, Red Cell Distribution Width 19.6H, Platelet Count 141L, Mean Platelet Volume 7.6, Neutrophils (%) (Auto) , Lymphocytes (%) (Auto) , Monocytes (%) (Auto) , Eosinophils (%) (Auto) , Basophils (%) (Auto) , Sodium Level 139, Potassium Level 3.7, Chloride Level 92L , Carbon Dioxide Level 26, Anion Gap 22H, Blood Urea Nitrogen 41H, Creatinine 6.6H, Estimat Glomerular Filtration Rate 8.5, Glucose Level 110H, Calcium Level 8.4L, Differential Total Cells Counted 100, Neutrophils % (Manual) 88H, Lymphocytes % (Manual) 8L, Monocytes % (Manual) 4, Eosinophils % (Manual) 0, Basophils % (Manual) 0, Band Neutrophils 0, Platelet Estimate DecreasedL, Platelet Morphology Normal, Hypochromasia 1+, Anisocytosis 1+, Phosphorus Level 8.4H, Magnesium Level 2.3, Total Bilirubin 1.3H, Direct Bilirubin 0.7H, Aspartate Amino Transf (AST/SGOT) 18, Alanine Aminotransferase (ALT/SGPT) 9L, Alkaline Phosphatase 704H, Total Protein 7.7, Albumin 2.8L Height (Feet): 5 Height (Inches): 7.00 Weight (Pounds): 130 General Appearance: lethargic EENT: normal ENT inspection Neck: normal alignment Cardiovascular: normal peripheral pulses, normal rate, regular rhythm Respiratory/Chest: chest wall non-tender, decreased breath sounds Abdomen: normal bowel sounds, non tender, soft Extremities: normal inspection Edema: no edema noted Arm (L), no edema noted Arm (R), no edema noted Leg (L), no edema noted Leg (R), no edema noted Pedal (L), no edema noted Pedal (R), no edema noted Generalized Skin: normal pigmentation, warm/dry Lebron Swift March 09, 2018 08:59
[2018-03-09] MEDS ORDERED: Ceftaroline 200 MG in NS 55 ML IVPB SCH ×2 (09:00→21:00)
[2018-03-09] MEDS: Docusate 100mg cap ORAL SCH ×3 (09:23→18:00)
--- NOTE | 2018-03-09 11:10 | Nephrology Progress Note ---
Assessment/Plan Problem List: (1) ESRD (end stage renal disease) on dialysis (2) Acute hyperkalemia (3) Hypertension, uncontrolled (4) Left leg DVT (5) Anemia in chronic kidney disease (CKD) Assessment in ICU Post removal of infected fistula infected right arm fistula BP stable stop mind altering meds ESRD, on admission missed dialysis . has high K on admission has fistula right arm Sever Anemia h/o Amyloidosis COPD Plan removal of fistula,03/08 placement of permacath HD as needed done 03/08 stop BP meds- on PRN clonidine only Transfusion as needed Kayexelate as needed BP control, meds adjusted has IVC filter add phos binders Subjective ROS Limited/Unobtainable: No Constitutional: Reports: malaise Objective Objective Last 24 Hour Vital Signs Date Time Temp Pulse Resp B/P (MAP) Pulse Ox O2 Delivery O2 Flow Rate FiO2 03/09/18 07:10 92 24 Nasal Cannula 2.0 28 03/09/18 07:10 Nasal Cannula 2.0 28 03/09/18 07:10 92 Nasal Cannula 2.0 28 03/09/18 07:02 91 13 146/65 93 Nasal Cannula 3.0 03/09/18 06:03 93 17 161/58 93 Nasal Cannula 3.0 03/09/18 05:00 91 12 136/56 93 Nasal Cannula 3.0 03/09/18 04:00 97.7 94 14 148/55 94 Nasal Cannula 3.0 97.7 03/09/18 03:00 94 21 165/60 93 Nasal Cannula 3.0 03/09/18 02:00 93 12 184/71 93 Nasal Cannula 3.0 03/09/18 01:00 90 11 162/57 94 Nasal Cannula 3.0 03/09/18 00:43 Nasal Cannula 3.0 03/09/18 00:40 97.6 95 12 122/49 Nasal Cannula 3.0 97.6 03/09/18 00:00 93 18 107/41 92 Nasal Cannula 2.0 03/08/18 23:00 96 18 104/46 92 Nasal Cannula 2.0 03/08/18 22:00 91 16 126/56 94 Nasal Cannula 2.0 03/08/18 21:30 97.5 86 12 162/64 Nasal Cannula 3.0 97.5 03/08/18 21:30 Nasal Cannula 3.0 03/08/18 21:00 93 15 162/64 95 Nasal Cannula 2.0 03/08/18 20:00 93 15 155/62 94 Nasal Cannula 2.0 03/08/18 19:34 80 19 Nasal Cannula 2.0 28 03/08/18 19:34 97 Nasal Cannula 2.0 28 03/08/18 19:34 Nasal Cannula 2.0 28 03/08/18 19:00 94.5 92 14 142/58 92 Nasal Cannula 2.0 94.5 03/08/18 18:00 97.9 88 20 59/59 96 Simple Mask 6.0 97.9 03/08/18 17:50 85 19 127/59 96 Simple Mask 6.0 03/08/18 17:40 87 15 117/54 96 Simple Mask 6.0 03/08/18 17:30 89 20 101/55 96 Simple Mask 6.0 03/08/18 17:30 209.5 82 18 98 03/08/18 17:29 209.7 87 16 97 03/08/18 17:20 98.7 87 16 122/64 99 Simple Mask 6.0 98.7 03/08/18 11:56 98.0 70 20 155/70 98 98.0 Intake and Output 03/08/18 03/09/18 19:00 07:00 Intake Total 0 ml 55 ml Output Total 2138 ml Balance 0 ml -2083 ml Intake Oral 0 ml 0 ml IV Total 55 ml Output Urine Total 0 ml Hemodialysis UF 2138 ml Laboratory Tests 03/08/18 18:00: White Blood Count 9.9, Red Blood Count 3.52L, Hemoglobin 10.4L, Hematocrit 32.8L , Mean Corpuscular Volume 93, Mean Corpuscular Hemoglobin 29.6, Mean Corpuscular Hemoglobin Concent 31.7L, Red Cell Distribution Width 19.2H, Platelet Count 131L, Mean Platelet Volume 8.0, Neutrophils (%) (Auto) 96.2H, Lymphocytes (%) (Auto) 2.2L, Monocytes (%) (Auto) 0.6L, Eosinophils (%) (Auto) 0.2, Basophils (%) (Auto) 0.8, Prothrombin Time 13.0H, Prothromb Time International Ratio 1.2H, Sodium Level 136, Potassium Level 5.8H, Chloride Level 94L, Carbon Dioxide Level 23, Anion Gap 19H, Blood Urea Nitrogen 75H, Creatinine 10.9H, Estimat Glomerular Filtration Rate 4.8, Glucose Level 81, Calcium Level 7.9L 03/09/18 03:35: White Blood Count 9.3, Red Blood Count 3.43L, Hemoglobin 10.0L, Hematocrit 32.0L , Mean Corpuscular Volume 93, Mean Corpuscular Hemoglobin 29.3, Mean Corpuscular Hemoglobin Concent 31.4L, Red Cell Distribution Width 19.6H, Platelet Count 141L, Mean Platelet Volume 7.6, Neutrophils (%) (Auto) , Lymphocytes (%) (Auto) , Monocytes (%) (Auto) , Eosinophils (%) (Auto) , Basophils (%) (Auto) , Sodium Level 139, Potassium Level 3.7, Chloride Level 92L , Carbon Dioxide Level 26, Anion Gap 22H, Blood Urea Nitrogen 41H, Creatinine 6.6H, Estimat Glomerular Filtration Rate 8.5, Glucose Level 110H, Calcium Level 8.4L, Differential Total Cells Counted 100, Neutrophils % (Manual) 88H, Lymphocytes % (Manual) 8L, Monocytes % (Manual) 4, Eosinophils % (Manual) 0, Basophils % (Manual) 0, Band Neutrophils 0, Platelet Estimate DecreasedL, Platelet Morphology Normal, Hypochromasia 1+, Anisocytosis 1+, Phosphorus Level 8.4H, Magnesium Level 2.3, Total Bilirubin 1.3H, Direct Bilirubin 0.7H, Aspartate Amino Transf (AST/SGOT) 18, Alanine Aminotransferase (ALT/SGPT) 9L, Alkaline Phosphatase 704H, Total Protein 7.7, Albumin 2.8L Height (Feet): 5 Height (Inches): 7.00 Weight (Pounds): 130 General Appearance: no apparent distress, lethargic, confused Cardiovascular: tachycardia Respiratory/Chest: decreased breath sounds Abdomen: soft Objective no change DALTON ROSENTHAL March 09, 2018 11:10
--- NOTE | 2018-03-09 11:46 | Pulmonolgy Critical Care Note ---
Critical Care - Asmt/Plan Problems: (1) Acute respiratory failure (2) ESRD (end stage renal disease) on dialysis (3) Symptomatic anemia (4) Left leg DVT (5) Pulmonary edema Respiratory: monitor respiratory rate, adjust FIO2 Cardiac: continue to monitor HR/BP Renal: F/U I&O Infectious Disease: check cultures, continue antibiotics Gastrointestinal: continue feedings/current rate Endocrine: monitor blood sugar Hematologic: monitor H/H, transfuse if hgb<8.5 Neurologic: PRN Ativan, keep patient comfortable Prophylaxis: Protonix Disposition: transfer to Notes Reviewed: spindle tester, cardio, renal, ID Discussed with: caseworker protective servicesbusiness initiatives manager - Objective Last 24 Hour Vital Signs Date Time Temp Pulse Resp B/P (MAP) Pulse Ox O2 Delivery O2 Flow Rate FiO2 03/09/18 11:28 98.1 03/09/18 10:00 86 14 145/60 86 Nasal Cannula 2.0 03/09/18 09:00 89 14 136/59 88 Nasal Cannula 2.0 03/09/18 08:00 98.1 92 15 150/55 96 Nasal Cannula 2.0 98.1 03/09/18 07:10 92 24 Nasal Cannula 2.0 28 03/09/18 07:10 Nasal Cannula 2.0 28 03/09/18 07:10 92 Nasal Cannula 2.0 28 03/09/18 07:02 91 13 146/65 93 Nasal Cannula 3.0 03/09/18 06:03 93 17 161/58 93 Nasal Cannula 3.0 03/09/18 05:00 91 12 136/56 93 Nasal Cannula 3.0 03/09/18 04:00 97.7 94 14 148/55 94 Nasal Cannula 3.0 97.7 03/09/18 03:00 94 21 165/60 93 Nasal Cannula 3.0 03/09/18 02:00 93 12 184/71 93 Nasal Cannula 3.0 03/09/18 01:00 90 11 162/57 94 Nasal Cannula 3.0 03/09/18 00:43 Nasal Cannula 3.0 03/09/18 00:40 97.6 95 12 122/49 Nasal Cannula 3.0 97.6 03/09/18 00:00 93 18 107/41 92 Nasal Cannula 2.0 03/08/18 23:00 96 18 104/46 92 Nasal Cannula 2.0 03/08/18 22:00 91 16 126/56 94 Nasal Cannula 2.0 03/08/18 21:30 97.5 86 12 162/64 Nasal Cannula 3.0 97.5 03/08/18 21:30 Nasal Cannula 3.0 03/08/18 21:00 93 15 162/64 95 Nasal Cannula 2.0 03/08/18 20:00 93 15 155/62 94 Nasal Cannula 2.0 03/08/18 19:34 80 19 Nasal Cannula 2.0 28 03/08/18 19:34 97 Nasal Cannula 2.0 28 03/08/18 19:34 Nasal Cannula 2.0 28 03/08/18 19:00 94.5 92 14 142/58 92 Nasal Cannula 2.0 94.5 03/08/18 18:00 97.9 88 20 59/59 96 Simple Mask 6.0 97.9 03/08/18 17:50 85 19 127/59 96 Simple Mask 6.0 03/08/18 17:40 87 15 117/54 96 Simple Mask 6.0 03/08/18 17:30 89 20 101/55 96 Simple Mask 6.0 03/08/18 17:30 209.5 82 18 98 03/08/18 17:29 209.7 87 16 97 03/08/18 17:20 98.7 87 16 122/64 99 Simple Mask 6.0 98.7 03/08/18 11:56 98.0 70 20 155/70 98 98.0 Status: awake Condition: critical HEENT: atraumatic Neck: full ROM Lungs: clear Heart: HR/BP stable Abdomen: soft, non-tender Extremities: no C/C/E Decubiti: location Micro: Microbiology Date/Time Source Procedure Growth Status 03/06/18 18:15 Blood Blood Culture - Final Staphylococcus Aureus Complete 03/06/18 18:00 Blood Blood Culture - Final Staphylococcus Aureus Complete 03/08/18 14:28 Arm Right Gram Stain - Final Resulted 03/08/18 14:28 Arm Right Aerobic Culture - Preliminary NO GROWTH AFTER 24 HOURS Resulted 03/08/18 14:28 Arm Right Anaerobic Culture - Preliminary NO GROWTH Resulted 03/06/18 15:30 Internal Jugular Jugular Catheter Tip Culture - Preliminary NO GROWTH AFTER 48 HOURS Resulted Accucheck: 117 Critical Care - Subjective ROS Limited/Unobtainable: Yes - 2 Interval Events: post operatively transferred to icu for close monitoring FI02: 28 Sputum Amount: None Tube Feeding Amount: 30 I&O: Intake and Output 03/08/18 03/09/18 19:00 07:00 Intake Total 0 ml 55 ml Output Total 2138 ml Balance 0 ml -2083 ml Intake Oral 0 ml 0 ml IV Total 55 ml Output Urine Total 0 ml Hemodialysis UF 2138 ml CXR: RLL infiltrate Labs: Laboratory Tests Test 03/08/18 18:00 03/09/18 03:35 White Blood Count 9.9 K/UL (4.8-10.8) 9.3 K/UL (4.8-10.8) Red Blood Count 3.52 M/UL (4.70-6.10) L 3.43 M/UL (4.70-6.10) L Hemoglobin 10.4 G/DL (14.2-18.0) L 10.0 G/DL (14.2-18.0) L Hematocrit 32.8 % (42.0-52.0) L 32.0 % (42.0-52.0) L Mean Corpuscular Volume 93 FL (80-99) 93 FL (80-99) Mean Corpuscular Hemoglobin 29.6 PG (27.0-31.0) 29.3 PG (27.0-31.0) Mean Corpuscular Hemoglobin Concent 31.7 G/DL (32.0-36.0) L 31.4 G/DL (32.0-36.0) L Red Cell Distribution Width 19.2 % (11.6-14.8) H 19.6 % (11.6-14.8) H Platelet Count 131 K/UL (150-450) L 141 K/UL (150-450) L Mean Platelet Volume 8.0 FL (6.5-10.1) 7.6 FL (6.5-10.1) Neutrophils (%) (Auto) 96.2 % (45.0-75.0) H % (45.0-75.0) Lymphocytes (%) (Auto) 2.2 % (20.0-45.0) L % (20.0-45.0) Monocytes (%) (Auto) 0.6 % (1.0-10.0) L % (1.0-10.0) Eosinophils (%) (Auto) 0.2 % (0.0-3.0) % (0.0-3.0) Basophils (%) (Auto) 0.8 % (0.0-2.0) % (0.0-2.0) Prothrombin Time 13.0 SEC (9.30-11.50) H Prothromb Time International Ratio 1.2 (0.9-1.1) H Sodium Level 136 MMOL/L (136-145) 139 MMOL/L (136-145) Potassium Level 5.8 MMOL/L (3.5-5.1) H 3.7 MMOL/L (3.5-5.1) Chloride Level 94 MMOL/L (98-107) L 92 MMOL/L (98-107) L Carbon Dioxide Level 23 MMOL/L (21-32) 26 MMOL/L (21-32) Anion Gap 19 mmol/L (5-15) H 22 mmol/L (5-15) H Blood Urea Nitrogen 75 mg/dL (7-18) H 41 mg/dL (7-18) H Creatinine 10.9 MG/DL (0.55-1.30) H 6.6 MG/DL (0.55-1.30) H Estimat Glomerular Filtration Rate 4.8 mL/min (>60) 8.5 mL/min (>60) Glucose Level 81 MG/DL (74-106) 110 MG/DL (74-106) H Calcium Level 7.9 MG/DL (8.5-10.1) L 8.4 MG/DL (8.5-10.1) L Differential Total Cells Counted 100 Neutrophils % (Manual) 88 % (45-75) H Lymphocytes % (Manual) 8 % (20-45) L Monocytes % (Manual) 4 % (1-10) Eosinophils % (Manual) 0 % (0-3) Basophils % (Manual) 0 % (0-2) Band Neutrophils 0 % (0-8) Platelet Estimate Decreased L Platelet Morphology Normal Hypochromasia 1+ Anisocytosis 1+ Phosphorus Level 8.4 MG/DL (2.5-4.9) H Magnesium Level 2.3 MG/DL (1.8-2.4) Total Bilirubin 1.3 MG/DL (0.2-1.0) H Direct Bilirubin 0.7 MG/DL (0.0-0.3) H Aspartate Amino Transf (AST/SGOT) 18 U/L (15-37) Alanine Aminotransferase (ALT/SGPT) 9 U/L (12-78) L Alkaline Phosphatase 704 U/L (46-116) H Total Protein 7.7 G/DL (6.4-8.2) Albumin 2.8 G/DL (3.4-5.0) L Clement Mcleod MD March 09, 2018 11:46
--- NOTE | 2018-03-09 13:00 | General Progress Note ---
Assessment/Plan Status: stable Assessment/Plan #. Acute deep venous thrombosis of left lower extremity. --> Status post inferior vena cava filter placement. --> given persistent low h/h and fact that has ivc filter, coumadin has been discontinued --> hold off on further anticoagulation given low h/h #. Anemia of gastrointestinal bleed. --> transfuse if hgb <7, workup has been reviewed --> Appreciate gi recs, has been seen by them --> had endoscopy but location unknown where he had it #. Thrombocytopenia baseline likely plt count of >50-100k --> likely related to splenomegaly and hepatitis C --> monitor closely for bleed if downtrends though this is less likely --> transfuse to keep plt >20k # Numerous small to borderline mediastinal and bilateral axillary lymph nodes. Prominent subcarinal lymph node. Meet pathological size. Imaging has been reviewed for the last two CAT scans --> further recs per pulm in regards to management, reimaging in future, versus more interventional such as biopsy --> appreciate pulm/cc recommendations #. Anemia of kidney disease --> On Hemodialysis by financial agent, on epo as well #. Anemia of chronic disease is s/p blood transfusion. #. End-stage renal disease, hemodialysis dependent. --> epo to continue 3x a week #. Leukocytosis -- management per ID --> WBC scan pending as well is neg, then AMAURI #. History of femoral neck fracture. On pain control. #. Acute respiratory failure. #. Hep C ++ Subjective Date patient seen: March 09, 2018 Allergies: Coded Allergies: No Known Allergies (Unverified , 02/02/18) All Systems: reviewed and negative except above Subjective Pt seen in resting in bed post-surgery. No s/s of acute medical distress. Objective Last 24 Hour Vital Signs Date Time Temp Pulse Resp B/P (MAP) Pulse Ox O2 Delivery O2 Flow Rate FiO2 03/09/18 12:00 83 14 155/57 86 Nasal Cannula 2.0 03/09/18 11:28 98.1 03/09/18 10:00 86 14 145/60 86 Nasal Cannula 2.0 03/09/18 09:00 89 14 136/59 88 Nasal Cannula 2.0 03/09/18 08:00 98.1 92 15 150/55 96 Nasal Cannula 2.0 98.1 03/09/18 07:10 92 24 Nasal Cannula 2.0 28 03/09/18 07:10 Nasal Cannula 2.0 28 03/09/18 07:10 92 Nasal Cannula 2.0 28 03/09/18 07:02 91 13 146/65 93 Nasal Cannula 3.0 03/09/18 06:03 93 17 161/58 93 Nasal Cannula 3.0 03/09/18 05:00 91 12 136/56 93 Nasal Cannula 3.0 03/09/18 04:00 97.7 94 14 148/55 94 Nasal Cannula 3.0 97.7 03/09/18 03:00 94 21 165/60 93 Nasal Cannula 3.0 03/09/18 02:00 93 12 184/71 93 Nasal Cannula 3.0 03/09/18 01:00 90 11 162/57 94 Nasal Cannula 3.0 03/09/18 00:43 Nasal Cannula 3.0 03/09/18 00:40 97.6 95 12 122/49 Nasal Cannula 3.0 97.6 03/09/18 00:00 93 18 107/41 92 Nasal Cannula 2.0 03/08/18 23:00 96 18 104/46 92 Nasal Cannula 2.0 03/08/18 22:00 91 16 126/56 94 Nasal Cannula 2.0 03/08/18 21:30 97.5 86 12 162/64 Nasal Cannula 3.0 97.5 03/08/18 21:30 Nasal Cannula 3.0 03/08/18 21:00 93 15 162/64 95 Nasal Cannula 2.0 03/08/18 20:00 93 15 155/62 94 Nasal Cannula 2.0 03/08/18 19:34 80 19 Nasal Cannula 2.0 28 03/08/18 19:34 97 Nasal Cannula 2.0 28 03/08/18 19:34 Nasal Cannula 2.0 28 03/08/18 19:00 94.5 92 14 142/58 92 Nasal Cannula 2.0 94.5 03/08/18 18:00 97.9 88 20 59/59 96 Simple Mask 6.0 97.9 03/08/18 17:50 85 19 127/59 96 Simple Mask 6.0 03/08/18 17:40 87 15 117/54 96 Simple Mask 6.0 03/08/18 17:30 89 20 101/55 96 Simple Mask 6.0 03/08/18 17:30 209.5 82 18 98 03/08/18 17:29 209.7 87 16 97 03/08/18 17:20 98.7 87 16 122/64 99 Simple Mask 6.0 98.7 Intake and Output 03/08/18 03/09/18 19:00 07:00 Intake Total 0 ml 55 ml Output Total 2138 ml Balance 0 ml -2083 ml Intake Oral 0 ml 0 ml IV Total 55 ml Output Urine Total 0 ml Hemodialysis UF 2138 ml Laboratory Tests 03/08/18 18:00: White Blood Count 9.9, Red Blood Count 3.52L, Hemoglobin 10.4L, Hematocrit 32.8L , Mean Corpuscular Volume 93, Mean Corpuscular Hemoglobin 29.6, Mean Corpuscular Hemoglobin Concent 31.7L, Red Cell Distribution Width 19.2H, Platelet Count 131L, Mean Platelet Volume 8.0, Neutrophils (%) (Auto) 96.2H, Lymphocytes (%) (Auto) 2.2L, Monocytes (%) (Auto) 0.6L, Eosinophils (%) (Auto) 0.2, Basophils (%) (Auto) 0.8, Prothrombin Time 13.0H, Prothromb Time International Ratio 1.2H, Sodium Level 136, Potassium Level 5.8H, Chloride Level 94L, Carbon Dioxide Level 23, Anion Gap 19H, Blood Urea Nitrogen 75H, Creatinine 10.9H, Estimat Glomerular Filtration Rate 4.8, Glucose Level 81, Calcium Level 7.9L 03/09/18 03:35: White Blood Count 9.3, Red Blood Count 3.43L, Hemoglobin 10.0L, Hematocrit 32.0L , Mean Corpuscular Volume 93, Mean Corpuscular Hemoglobin 29.3, Mean Corpuscular Hemoglobin Concent 31.4L, Red Cell Distribution Width 19.6H, Platelet Count 141L, Mean Platelet Volume 7.6, Neutrophils (%) (Auto) , Lymphocytes (%) (Auto) , Monocytes (%) (Auto) , Eosinophils (%) (Auto) , Basophils (%) (Auto) , Sodium Level 139, Potassium Level 3.7, Chloride Level 92L , Carbon Dioxide Level 26, Anion Gap 22H, Blood Urea Nitrogen 41H, Creatinine 6.6H, Estimat Glomerular Filtration Rate 8.5, Glucose Level 110H, Calcium Level 8.4L, Differential Total Cells Counted 100, Neutrophils % (Manual) 88H, Lymphocytes % (Manual) 8L, Monocytes % (Manual) 4, Eosinophils % (Manual) 0, Basophils % (Manual) 0, Band Neutrophils 0, Platelet Estimate DecreasedL, Platelet Morphology Normal, Hypochromasia 1+, Anisocytosis 1+, Phosphorus Level 8.4H, Magnesium Level 2.3, Total Bilirubin 1.3H, Direct Bilirubin 0.7H, Aspartate Amino Transf (AST/SGOT) 18, Alanine Aminotransferase (ALT/SGPT) 9L, Alkaline Phosphatase 704H, Total Protein 7.7, Albumin 2.8L Height (Feet): 5 Height (Inches): 7.00 Weight (Pounds): 130 General Appearance: no apparent distress EENT: normal ENT inspection Neck: normal alignment Cardiovascular: regular rhythm Respiratory/Chest: lungs clear Abdomen: non tender Tristen Lewis MD March 09, 2018 13:00
--- NOTE | 2018-03-09 14:30 | Cardiology Progress Note ---
Assessment/Plan Problem List: (1) ESRD (end stage renal disease) on dialysis (2) Hypertension, uncontrolled (3) Anemia in chronic kidney disease (CKD) (4) Bacteremia Status: stable, progressing Status Narrative s/p removal of AV graft, re-placement on 03/08 for infected graft and persistent bacteremia. Negative AMAURI yesterday Assessment/Plan Continue iv antibiotics per ID. followup blood cultures Hemodialysis per nephrology. Cardiac status stable for transfer to telemetry. Subjective ROS Limited/Unobtainable: No Subjective Cardiology for Dr. Becker No c/o. Pt sedated Objective Last 24 Hour Vital Signs Date Time Temp Pulse Resp B/P (MAP) Pulse Ox O2 Delivery O2 Flow Rate FiO2 03/09/18 13:00 83 14 147/55 96 Nasal Cannula 2.0 03/09/18 12:27 98.1 03/09/18 12:00 83 14 155/57 86 Nasal Cannula 2.0 03/09/18 11:28 98.1 03/09/18 10:00 86 14 145/60 86 Nasal Cannula 2.0 03/09/18 09:00 89 14 136/59 88 Nasal Cannula 2.0 03/09/18 08:00 98.1 92 15 150/55 96 Nasal Cannula 2.0 98.1 03/09/18 07:10 92 24 Nasal Cannula 2.0 28 03/09/18 07:10 Nasal Cannula 2.0 28 03/09/18 07:10 92 Nasal Cannula 2.0 28 03/09/18 07:02 91 13 146/65 93 Nasal Cannula 3.0 03/09/18 06:03 93 17 161/58 93 Nasal Cannula 3.0 03/09/18 05:00 91 12 136/56 93 Nasal Cannula 3.0 03/09/18 04:00 97.7 94 14 148/55 94 Nasal Cannula 3.0 97.7 03/09/18 03:00 94 21 165/60 93 Nasal Cannula 3.0 03/09/18 02:00 93 12 184/71 93 Nasal Cannula 3.0 03/09/18 01:00 90 11 162/57 94 Nasal Cannula 3.0 03/09/18 00:43 Nasal Cannula 3.0 03/09/18 00:40 97.6 95 12 122/49 Nasal Cannula 3.0 97.6 03/09/18 00:00 93 18 107/41 92 Nasal Cannula 2.0 03/08/18 23:00 96 18 104/46 92 Nasal Cannula 2.0 03/08/18 22:00 91 16 126/56 94 Nasal Cannula 2.0 03/08/18 21:30 97.5 86 12 162/64 Nasal Cannula 3.0 97.5 03/08/18 21:30 Nasal Cannula 3.0 03/08/18 21:00 93 15 162/64 95 Nasal Cannula 2.0 03/08/18 20:00 93 15 155/62 94 Nasal Cannula 2.0 03/08/18 19:34 80 19 Nasal Cannula 2.0 28 03/08/18 19:34 97 Nasal Cannula 2.0 28 03/08/18 19:34 Nasal Cannula 2.0 28 03/08/18 19:00 94.5 92 14 142/58 92 Nasal Cannula 2.0 94.5 03/08/18 18:00 97.9 88 20 59/59 96 Simple Mask 6.0 97.9 03/08/18 17:50 85 19 127/59 96 Simple Mask 6.0 03/08/18 17:40 87 15 117/54 96 Simple Mask 6.0 03/08/18 17:30 89 20 101/55 96 Simple Mask 6.0 03/08/18 17:30 209.5 82 18 98 03/08/18 17:29 209.7 87 16 97 03/08/18 17:20 98.7 87 16 122/64 99 Simple Mask 6.0 98.7 General Appearance: no apparent distress, thin EENT: PERRL/EOMI Neck: supple, no JVD Rhythm: NSR Cardiovascular: normal rate, regular rhythm, systolic murmur - ii/vi MAXX along LSB. no s3 Respiratory/Chest: lungs clear - clear anteriorly Abdomen: normal bowel sounds, non tender, soft Extremities: other - R UE av graft site covered w/ dry dressing Intake and Output 03/08/18 03/09/18 19:00 07:00 Intake Total 0 ml 55 ml Output Total 2138 ml Balance 0 ml -2083 ml Intake Oral 0 ml 0 ml IV Total 55 ml Output Urine Total 0 ml Hemodialysis UF 2138 ml Laboratory Tests Test 03/08/18 18:00 03/09/18 03:35 White Blood Count 9.9 K/UL (4.8-10.8) 9.3 K/UL (4.8-10.8) Red Blood Count 3.52 M/UL (4.70-6.10) L 3.43 M/UL (4.70-6.10) L Hemoglobin 10.4 G/DL (14.2-18.0) L 10.0 G/DL (14.2-18.0) L Hematocrit 32.8 % (42.0-52.0) L 32.0 % (42.0-52.0) L Mean Corpuscular Volume 93 FL (80-99) 93 FL (80-99) Mean Corpuscular Hemoglobin 29.6 PG (27.0-31.0) 29.3 PG (27.0-31.0) Mean Corpuscular Hemoglobin Concent 31.7 G/DL (32.0-36.0) L 31.4 G/DL (32.0-36.0) L Red Cell Distribution Width 19.2 % (11.6-14.8) H 19.6 % (11.6-14.8) H Platelet Count 131 K/UL (150-450) L 141 K/UL (150-450) L Mean Platelet Volume 8.0 FL (6.5-10.1) 7.6 FL (6.5-10.1) Neutrophils (%) (Auto) 96.2 % (45.0-75.0) H % (45.0-75.0) Lymphocytes (%) (Auto) 2.2 % (20.0-45.0) L % (20.0-45.0) Monocytes (%) (Auto) 0.6 % (1.0-10.0) L % (1.0-10.0) Eosinophils (%) (Auto) 0.2 % (0.0-3.0) % (0.0-3.0) Basophils (%) (Auto) 0.8 % (0.0-2.0) % (0.0-2.0) Prothrombin Time 13.0 SEC (9.30-11.50) H Prothromb Time International Ratio 1.2 (0.9-1.1) H Sodium Level 136 MMOL/L (136-145) 139 MMOL/L (136-145) Potassium Level 5.8 MMOL/L (3.5-5.1) H 3.7 MMOL/L (3.5-5.1) Chloride Level 94 MMOL/L (98-107) L 92 MMOL/L (98-107) L Carbon Dioxide Level 23 MMOL/L (21-32) 26 MMOL/L (21-32) Anion Gap 19 mmol/L (5-15) H 22 mmol/L (5-15) H Blood Urea Nitrogen 75 mg/dL (7-18) H 41 mg/dL (7-18) H Creatinine 10.9 MG/DL (0.55-1.30) H 6.6 MG/DL (0.55-1.30) H Estimat Glomerular Filtration Rate 4.8 mL/min (>60) 8.5 mL/min (>60) Glucose Level 81 MG/DL (74-106) 110 MG/DL (74-106) H Calcium Level 7.9 MG/DL (8.5-10.1) L 8.4 MG/DL (8.5-10.1) L Differential Total Cells Counted 100 Neutrophils % (Manual) 88 % (45-75) H Lymphocytes % (Manual) 8 % (20-45) L Monocytes % (Manual) 4 % (1-10) Eosinophils % (Manual) 0 % (0-3) Basophils % (Manual) 0 % (0-2) Band Neutrophils 0 % (0-8) Platelet Estimate Decreased L Platelet Morphology Normal Hypochromasia 1+ Anisocytosis 1+ Phosphorus Level 8.4 MG/DL (2.5-4.9) H Magnesium Level 2.3 MG/DL (1.8-2.4) Total Bilirubin 1.3 MG/DL (0.2-1.0) H Direct Bilirubin 0.7 MG/DL (0.0-0.3) H Aspartate Amino Transf (AST/SGOT) 18 U/L (15-37) Alanine Aminotransferase (ALT/SGPT) 9 U/L (12-78) L Alkaline Phosphatase 704 U/L (46-116) H Total Protein 7.7 G/DL (6.4-8.2) Albumin 2.8 G/DL (3.4-5.0) L Microbiology Date/Time Source Procedure Growth Status 03/06/18 18:15 Blood Blood Culture - Final Staphylococcus Aureus Complete 03/06/18 18:00 Blood Blood Culture - Final Staphylococcus Aureus Complete 03/08/18 14:28 Arm Right Gram Stain - Final Resulted 03/08/18 14:28 Arm Right Aerobic Culture - Preliminary NO GROWTH AFTER 24 HOURS Resulted 03/08/18 14:28 Arm Right Anaerobic Culture - Preliminary NO GROWTH Resulted 03/06/18 15:30 Internal Jugular Jugular Catheter Tip Culture - Preliminary NO GROWTH AFTER 48 HOURS Resulted Pauline Kang MD March 09, 2018 14:30
[2018-03-09] MEDS ORDERED: Isovue-300 100ml vial INJ PRN (16:15)
--- NOTE | 2018-03-09 16:30 | Progress Note ---
DATE: 03/09/2018 HISTORY OF PRESENT ILLNESS: This 63-year-old male patient with anemia and GI bleeding. He has altered mental status and confusion. Cognition has declined below his baseline, and that is why, his attending has requested daily psychiatric consultation. Also he has some mood lability and agitation, irritability. Cognition has declined below his baseline. MENTAL STATUS EXAMINATION: This is a 63-year-old male. Appearance is disheveled. Attitude, irritable and agitated. Affect, guarded and restricted. Intellect poor. Mood, depressed and anxious. Motor activity, psychomotor agitation. Attention span is poor. Orientation x2. Speech is pressured. Thought process, disorganized and illogical. Thought content, auditory hallucinations and paranoid delusions. Insight and judgment is poor. DIAGNOSIS: Major depression with psychotic features. PLAN: Plan for this patient is to treat with Seroquel 25 mg at bedtime. About 18 to 20 minutes of supportive psychotherapy, and encouraged him to interact appropriately with staff and other patients. Chart reviewed, discussed with staff. Seen and assessed at bedside. Rony Corral M.D. DR: SANTOS JOB#: [id number] CC:
[2018-03-09] MEDS ORDERED: DAPTOMYCIN IV SCH ×5 (17:00→20:00)
[2018-03-09] MEDS ORDERED: NS IV SCH ×5 (17:00→20:00)
[2018-03-09] MEDS ORDERED: Acetaminophen 650 MG SUPP RECTAL PRN ×2 (18:37→19:24)
[2018-03-09] MEDS ORDERED: Haloperidol 5mg/ml Inj IM PRN (18:38)
[2018-03-09] MEDS ORDERED: Acetaminophen 500mg (ES) tab ORAL PRN (19:24)
[2018-03-09] MEDS ORDERED: Dyna-Hex 2% Top Sol 2oz TOPIC SCH ×2 (20:00)
[2018-03-09] MEDS: Haloperidol 5mg/ml Inj IM PRN (21:50)
[2018-03-09] MEDS: NS IV SCH (21:51)
[2018-03-09] MEDS: DAPTOMYCIN IV SCH (21:51)
[2018-03-09] MEDS: CEFTAROLINE IVPB SCH (21:51)
[2018-03-09] MEDS: NS IVPB SCH (21:51)
[2018-03-09] MEDS: Dyna-Hex 2% Top Sol 2oz TOPIC SCH (21:51)
[2018-03-10] VITALS: BP 130/67
[2018-03-10 04:00] VITALS: BP 130/67
[2018-03-10 07:19] LABS: EOSINOPHILS % (AUTO) 1.4 % (0.0-3.0); HEMATOCRIT 28.3 % (42.0-52.0); LYMPHOCYTES % (AUTO) 14.2 % (20.0-45.0); MEAN CORPUSCULAR VOLUME 93 FL (80-99); MONOCYTES % (AUTO) 6.8 % (1.0-10.0); NEUTROPHILS % (AUTO) 76.7 % (45.0-75.0); PLATELET COUNT 142 K/UL (150-450); RED BLOOD COUNT 3.03 M/UL (4.70-6.10); RED CELL DISTRIBUTION WIDTH 19.6 % (11.6-14.8); WHITE BLOOD COUNT 6.7 K/UL (4.8-10.8)
[2018-03-10 07:47] LABS: ALANINE AMINOTRANSFERASE 8 U/L (12-78); ALBUMIN 2.7 G/DL (3.4-5.0); ALBUMIN/GLOBULIN RATIO 0.6 (1.0-2.7); ALKALINE PHOSPHATASE 491 U/L (46-116); ANION GAP 12 mmol/L (5-15); ASPARTATE AMINO TRANSFERASE 14 U/L (15-37); BILIRUBIN,TOTAL 0.8 MG/DL (0.2-1.0); BLOOD UREA NITROGEN 59 mg/dL (7-18); CALCIUM 8.4 MG/DL (8.5-10.1); CARBON DIOXIDE 32 MMOL/L (21-32); CHLORIDE 95 MMOL/L (98-107); SODIUM 139 MMOL/L (136-145)
[2018-03-10 08:00] VITALS: BP 128/61
[2018-03-10 08:02] LABS: PHOSPHORUS 10.2 MG/DL (2.5-4.9)
[2018-03-10] MEDS ORDERED: Docusate 100mg cap ORAL SCH ×2 (09:00)
[2018-03-10] MEDS: NS IVPB SCH ×2 (09:46→22:55)
[2018-03-10] MEDS: CEFTAROLINE IVPB SCH ×2 (09:46→22:55)
--- NOTE | 2018-03-10 10:22 | Nephrology Progress Note ---
Assessment/Plan Problem List: (1) ESRD (end stage renal disease) on dialysis (2) Acute hyperkalemia (3) Hypertension, uncontrolled (4) Left leg DVT (5) Anemia in chronic kidney disease (CKD) Assessment in ICU Post removal of infected fistula infected right arm fistula BP stable stop mind altering meds ESRD, on admission missed dialysis . has high K on admission has fistula right arm Sever Anemia h/o Amyloidosis COPD Plan increase phos binders removal of fistula,03/08 placement of permacath HD as needed done 03/08 next 03/11 stop BP meds- on PRN clonidine only Transfusion as needed Kayexelate as needed BP control, meds adjusted has IVC filter add phos binders Subjective ROS Limited/Unobtainable: No Constitutional: Reports: malaise Objective Objective Last 24 Hour Vital Signs Date Time Temp Pulse Resp B/P (MAP) Pulse Ox O2 Delivery O2 Flow Rate FiO2 03/10/18 08:00 97.8 72 20 128/61 98 97.8 03/10/18 04:00 97.3 79 18 130/67 98 97.3 03/10/18 04:00 75 03/10/18 00:00 75 03/10/18 00:00 97.3 79 18 130/67 98 97.3 03/09/18 20:00 97.3 73 18 131/62 98 97.3 03/09/18 20:00 76 03/09/18 19:05 98 22 Nasal Cannula 2.0 28 03/09/18 19:05 Nasal Cannula 2.0 28 03/09/18 19:05 94 Nasal Cannula 2.0 28 03/09/18 18:00 97.8 77 12 149/61 97 Nasal Cannula 2.0 97.8 03/09/18 17:00 80 16 140/66 97 Nasal Cannula 2.0 03/09/18 16:00 78 10 148/68 98 Nasal Cannula 2.0 03/09/18 15:00 83 10 142/56 95 Nasal Cannula 2.0 03/09/18 14:00 81 10 137/54 96 Nasal Cannula 2.0 03/09/18 13:00 83 14 147/55 96 Nasal Cannula 2.0 03/09/18 12:27 98.1 03/09/18 12:00 83 14 155/57 86 Nasal Cannula 2.0 03/09/18 11:28 98.1 Intake and Output 03/09/18 03/10/18 19:00 07:00 Intake Total 535 ml 120 ml Output Total 0 ml 0 ml Balance 535 ml 120 ml Intake Oral 480 ml 120 ml IV Total 55 ml Output Urine Total 0 ml 0 ml Laboratory Tests 03/10/18 04:50: White Blood Count 6.7, Red Blood Count 3.03L, Hemoglobin 9.0L, Hematocrit 28.3L , Mean Corpuscular Volume 93, Mean Corpuscular Hemoglobin 29.8, Mean Corpuscular Hemoglobin Concent 31.9L, Red Cell Distribution Width 19.6H, Platelet Count 142L, Mean Platelet Volume 5.9L, Neutrophils (%) (Auto) 76.7H, Lymphocytes (%) (Auto) 14.2L, Monocytes (%) (Auto) 6.8, Eosinophils (%) (Auto) 1.4, Basophils (%) (Auto) 1.0 03/10/18 05:50: Sodium Level 139, Potassium Level 4.0, Chloride Level 95L, Carbon Dioxide Level 32, Anion Gap 12, Blood Urea Nitrogen 59H, Creatinine 9.0H, Estimat Glomerular Filtration Rate 6.0, Glucose Level 107H, Calcium Level 8.4L, Phosphorus Level 10.2H, Magnesium Level 2.5H, Total Bilirubin 0.8, Aspartate Amino Transf (AST/ SGOT) 14L, Alanine Aminotransferase (ALT/SGPT) 8L, Alkaline Phosphatase 491H, Pro-B-Type Natriuretic Peptide 99785G, Total Protein 7.3, Albumin 2.7L, Globulin 4.6, Albumin/Globulin Ratio 0.6L 03/10/18 06:00: C-Reactive Protein, Quantitative 12.1H Height (Feet): 5 Height (Inches): 7.00 Weight (Pounds): 130 General Appearance: no apparent distress Objective no change DALTON ROSENTHAL March 10, 2018 10:22
--- NOTE | 2018-03-10 11:17 | General Progress Note ---
Assessment/Plan Status: stable Assessment/Plan #. Acute deep venous thrombosis of left lower extremity. --> Status post inferior vena cava filter placement. --> given persistent low h/h and fact that has ivc filter, coumadin has been discontinued --> hold off on further anticoagulation given low h/h #. Anemia of gastrointestinal bleed. --> transfuse if hgb <7, workup has been reviewed --> Appreciate gi recs, has been seen by them --> had endoscopy but location unknown where he had it #. Thrombocytopenia baseline likely plt count of >50-100k --> likely related to splenomegaly and hepatitis C --> monitor closely for bleed if downtrends though this is less likely --> transfuse to keep plt >20k # Numerous small to borderline mediastinal and bilateral axillary lymph nodes. Prominent subcarinal lymph node. Meet pathological size. Imaging has been reviewed for the last two CAT scans --> further recs per pulm in regards to management, reimaging in future, versus more interventional such as biopsy --> appreciate pulm/cc recommendations #. Anemia of kidney disease --> On Hemodialysis by senior product development manager, on epo as well #. Anemia of chronic disease is s/p blood transfusion. #. End-stage renal disease, hemodialysis dependent. --> epo to continue 3x a week #. Leukocytosis -- management per ID --> WBC scan pending as well is neg, then AMAURI #. History of femoral neck fracture. On pain control. #. Acute respiratory failure. #. Hep C ++ Subjective Date patient seen: March 10, 2018 Allergies: Coded Allergies: No Known Allergies (Unverified , 02/02/18) All Systems: reviewed and negative except above Subjective No overnight events. No fever, chills, sob Objective Last 24 Hour Vital Signs Date Time Temp Pulse Resp B/P (MAP) Pulse Ox O2 Delivery O2 Flow Rate FiO2 03/10/18 08:00 97.8 72 20 128/61 98 97.8 03/10/18 04:00 97.3 79 18 130/67 98 97.3 03/10/18 04:00 75 03/10/18 00:00 75 03/10/18 00:00 97.3 79 18 130/67 98 97.3 03/09/18 20:00 97.3 73 18 131/62 98 97.3 03/09/18 20:00 76 03/09/18 19:05 98 22 Nasal Cannula 2.0 28 03/09/18 19:05 Nasal Cannula 2.0 28 03/09/18 19:05 94 Nasal Cannula 2.0 28 03/09/18 18:00 97.8 77 12 149/61 97 Nasal Cannula 2.0 97.8 03/09/18 17:00 80 16 140/66 97 Nasal Cannula 2.0 03/09/18 16:00 78 10 148/68 98 Nasal Cannula 2.0 03/09/18 15:00 83 10 142/56 95 Nasal Cannula 2.0 03/09/18 14:00 81 10 137/54 96 Nasal Cannula 2.0 03/09/18 13:00 83 14 147/55 96 Nasal Cannula 2.0 03/09/18 12:27 98.1 03/09/18 12:00 83 14 155/57 86 Nasal Cannula 2.0 03/09/18 11:28 98.1 Intake and Output 03/09/18 03/10/18 19:00 07:00 Intake Total 535 ml 120 ml Output Total 0 ml 0 ml Balance 535 ml 120 ml Intake Oral 480 ml 120 ml IV Total 55 ml Output Urine Total 0 ml 0 ml Laboratory Tests 03/10/18 04:50: White Blood Count 6.7, Red Blood Count 3.03L, Hemoglobin 9.0L, Hematocrit 28.3L , Mean Corpuscular Volume 93, Mean Corpuscular Hemoglobin 29.8, Mean Corpuscular Hemoglobin Concent 31.9L, Red Cell Distribution Width 19.6H, Platelet Count 142L, Mean Platelet Volume 5.9L, Neutrophils (%) (Auto) 76.7H, Lymphocytes (%) (Auto) 14.2L, Monocytes (%) (Auto) 6.8, Eosinophils (%) (Auto) 1.4, Basophils (%) (Auto) 1.0 03/10/18 05:50: Sodium Level 139, Potassium Level 4.0, Chloride Level 95L, Carbon Dioxide Level 32, Anion Gap 12, Blood Urea Nitrogen 59H, Creatinine 9.0H, Estimat Glomerular Filtration Rate 6.0, Glucose Level 107H, Calcium Level 8.4L, Phosphorus Level 10.2H, Magnesium Level 2.5H, Total Bilirubin 0.8, Aspartate Amino Transf (AST/ SGOT) 14L, Alanine Aminotransferase (ALT/SGPT) 8L, Alkaline Phosphatase 491H, Pro-B-Type Natriuretic Peptide 96972D, Total Protein 7.3, Albumin 2.7L, Globulin 4.6, Albumin/Globulin Ratio 0.6L 03/10/18 06:00: C-Reactive Protein, Quantitative 12.1H Height (Feet): 5 Height (Inches): 7.00 Weight (Pounds): 130 General Appearance: no apparent distress EENT: normal ENT inspection Neck: normal alignment Cardiovascular: normal rate Respiratory/Chest: lungs clear Abdomen: non tender Tristen Lewis MD March 10, 2018 11:17
[2018-03-10 12:00] VITALS: BP 123/57
[2018-03-10] MEDS: Calcium Acetate 667mg Tab ORAL SCH ×2 (12:38→17:36)
[2018-03-10] MEDS: Docusate 100mg cap ORAL SCH ×2 (12:38→17:37)
--- NOTE | 2018-03-10 13:13 | Infectious Diseases Prog Note ---
Assessment/Plan Assessment/Plan ASSESSMENT: The patient is a 63-year-old male with, Fever, SP Persistent Bacteremia MRSA ( + on 02/22,, 18, 20, 23; 03/09 NTD )- 2ry to R AVF infection -s/p Complete removal of right arm av graft, I&D right arm wound, Right proximal brachial artery to distal right brachial artery bypass (with reversed right basilic vein, Left IJ dialysis catheter with pigtail 03/08 - OR findings: no vegetation noted, significant pus drained around blistered AV graft -OR cx : S. aureus -WBC scan: Small focus of uptake within the lower part of the right upper arm consistent with infection. Findings may represent cellulitis, phlegmon or abscess. Correlate clinically. The patient has an arteriovenous fistula in this location. -wound cx R arm (from AVF fistula)- MRSA -AMAURI- prelim report per cards- no vegetations -CT R ext w/: Limited exam due to motion. No fluid collection or other finding to suggest abscess. No findings to explain abnormality demonstrated on recent indium white cell scan. Patient right upper extremity brachiobasilic AV dialysis graft. Note some non flow-limiting mural thickening or thrombus is present -CT chest abd/p w/ 03/02: Bibasilar lung atelectasis and airspace opacities, worse in the right lower lobe, worrisome for pneumonia. Tiny bilateral pleural effusions. Numerous small to borderline mediastinal and bilateral axillary lymph nodes. Prominent subcarinal lymph node. Emphysema. Mild superior endplate compression deformities T4, T5, T6, T8, T10, T11, are age- indeterminate. Age-indeterminate vertical fracture through the mid L2 vertebral body with anterior wedge compression. 02/26 2DEcho limited , av and mv thickening but no Veg Leukocytosis ,resolved 02/06/ CT of chest [id number] : no evidence of pulmonary emboli, diffuse septal thickening, and bilateral ground glass opacities, and small bilateral pleural effusion. Neg : HIV , Hep panel gastrointestinal bleed : had endoscopy but location unknown 02/25 SP Lt IJ, s/p removal 03/06 ,c ath tip NTD Anemia. End-stage renal disease, on hemodialysis. Left leg DVT. Right hip fracture, status post ORIF. History of hepatitis C Splenomegaly. Status post IVC filter placement PLAN: -Continue IV Daptomycin 8mg/kg q 48hr and Ceftaroline ( AB Rx d# 14) due to persistent bacteremia; will need 6 weeks from 1st neg BCx - monitor CPK SP 03/04 IV Vancomycin #8 SP 02/26 Zyvox d# 1 ( pt now has IV Access ) -f/u Bcx x2 and repeat Bcx until clearance of bacteremia Monitor CBC. Monitor BMP. Monitor blood cultures Monitor chest x-ray. Monitor vital signs wound care care was dw RN Subjective Allergies: Coded Allergies: No Known Allergies (Unverified , 02/02/18) Subjective afebrile no leukocytosis Bcx 03/09 NTD s/p AVG graft removal 03/08 Objective Vital Signs Last 24 Hour Vital Signs Date Time Temp Pulse Resp B/P (MAP) Pulse Ox O2 Delivery O2 Flow Rate FiO2 03/10/18 09:23 Nasal Cannula 2.0 28 03/10/18 09:23 98 Nasal Cannula 2.0 28 03/10/18 09:23 93 20 Nasal Cannula 2.0 28 03/10/18 08:00 97.8 72 20 128/61 98 97.8 03/10/18 04:00 97.3 79 18 130/67 98 97.3 03/10/18 04:00 75 03/10/18 00:00 75 03/10/18 00:00 97.3 79 18 130/67 98 97.3 03/09/18 20:00 97.3 73 18 131/62 98 97.3 03/09/18 20:00 76 03/09/18 19:05 98 22 Nasal Cannula 2.0 28 03/09/18 19:05 Nasal Cannula 2.0 28 03/09/18 19:05 94 Nasal Cannula 2.0 28 03/09/18 18:00 97.8 77 12 149/61 97 Nasal Cannula 2.0 97.8 03/09/18 17:00 80 16 140/66 97 Nasal Cannula 2.0 03/09/18 16:00 78 10 148/68 98 Nasal Cannula 2.0 03/09/18 15:00 83 10 142/56 95 Nasal Cannula 2.0 03/09/18 14:00 81 10 137/54 96 Nasal Cannula 2.0 03/09/18 13:00 83 14 147/55 96 Nasal Cannula 2.0 Height (Feet): 5 Height (Inches): 7.00 Weight (Pounds): 130 Objective General Appearance: no acute distress HEENT: normocephalic, atraumatic, anicteric Respiratory/Chest: chest wall non-tender, normal breath sounds, no respiratory distressp; temp HD cath Cardiovascular: normal peripheral pulses, normal rate, RUE bandage in place Abdomen: normal bowel sounds, soft, non tender Extremities: multiple tattoos BUE Neurologic/Psychiatric: awake, responsive Musculoskeletal: normal muscle bulk Microbiology Date/Time Source Procedure Growth Status 03/09/18 04:30 Blood Blood Culture - Preliminary NO GROWTH AFTER 24 HOURS Resulted 03/09/18 04:15 Blood Blood Culture - Preliminary NO GROWTH AFTER 24 HOURS Resulted 03/09/18 08:30 Sputum Gram Stain - Final Resulted 03/09/18 08:30 Sputum Sputum Culture Pending Resulted 03/08/18 14:28 Arm Right Gram Stain - Final Resulted 03/08/18 14:28 Arm Right Surgical Biopsy Culture - Preliminary NO GROWTH AFTER 24 HOURS Resulted 03/08/18 14:28 Arm Right Gram Stain - Final Resulted 03/08/18 14:28 Aerobic Culture - Preliminary Staphylococcus Aureus Resulted 03/08/18 14:28 Arm Right Anaerobic Culture - Preliminary NO GROWTH Resulted Laboratory Tests Test 03/10/18 04:50 03/10/18 05:50 03/10/18 06:00 White Blood Count 6.7 K/UL (4.8-10.8) Red Blood Count 3.03 M/UL (4.70-6.10) L Hemoglobin 9.0 G/DL (14.2-18.0) L Hematocrit 28.3 % (42.0-52.0) L Mean Corpuscular Volume 93 FL (80-99) Mean Corpuscular Hemoglobin 29.8 PG (27.0-31.0) Mean Corpuscular Hemoglobin Concent 31.9 G/DL (32.0-36.0) L Red Cell Distribution Width 19.6 % (11.6-14.8) H Platelet Count 142 K/UL (150-450) L Mean Platelet Volume 5.9 FL (6.5-10.1) L Neutrophils (%) (Auto) 76.7 % (45.0-75.0) H Lymphocytes (%) (Auto) 14.2 % (20.0-45.0) L Monocytes (%) (Auto) 6.8 % (1.0-10.0) Eosinophils (%) (Auto) 1.4 % (0.0-3.0) Basophils (%) (Auto) 1.0 % (0.0-2.0) Sodium Level 139 MMOL/L (136-145) Potassium Level 4.0 MMOL/L (3.5-5.1) Chloride Level 95 MMOL/L (98-107) L Carbon Dioxide Level 32 MMOL/L (21-32) Anion Gap 12 mmol/L (5-15) Blood Urea Nitrogen 59 mg/dL (7-18) H Creatinine 9.0 MG/DL (0.55-1.30) H Estimat Glomerular Filtration Rate 6.0 mL/min (>60) Glucose Level 107 MG/DL (74-106) H Calcium Level 8.4 MG/DL (8.5-10.1) L Phosphorus Level 10.2 MG/DL (2.5-4.9) H Magnesium Level 2.5 MG/DL (1.5-2.4) H Total Bilirubin 0.8 MG/DL (0.2-1.0) Aspartate Amino Transf (AST/SGOT) 14 U/L (15-37) L Alanine Aminotransferase (ALT/SGPT) 8 U/L (12-78) L Alkaline Phosphatase 491 U/L (46-116) H Pro-B-Type Natriuretic Peptide 57709 pg/mL (0-125) H Total Protein 7.3 G/DL (6.4-8.2) Albumin 2.7 G/DL (3.4-5.0) L Globulin 4.6 g/dL Albumin/Globulin Ratio 0.6 (1.0-2.7) L C-Reactive Protein, Quantitative 12.1 mg/dL (0.00-0.90) H Current Medications Medications (Trade) Dose Ordered Sig/Blessing Route PRN Reason Start Time Stop Time Status Last Admin Dose Admin Acetaminophen (Tylenol) 500 mg 3XW PRN ORAL WITH DIALYSIS 03/09/18 19:24 04/08/18 19:23 Acetaminophen (Tylenol) 650 mg Q4H PRN RECTAL Mild Pain/Temp > 100.5 03/09/18 19:24 04/07/18 19:23 Acetaminophen (Tylenol) 650 mg Q6H PRN ORAL Mild Pain/Temp > 100.5 03/09/18 19:24 04/08/18 19:23 Calcium Acetate (Phoslo) 1,334 mg TIAC ORAL 03/10/18 11:30 04/09/18 11:29 03/10/18 12:38 Ceftaroline Fosamil 200 mg/ Sodium Chloride 110 ml @ 110 mls/hr Q12H IVPB 03/09/18 21:30 03/16/18 23:59 03/10/18 09:46 Chlorhexidine Gluconate (Miriam-Hex 2%) 1 applic DAILY@2000 TOPIC 03/09/18 20:00 04/07/18 20:59 03/09/18 21:51 Clonidine HCl (Catapres Tab) 0.1 mg Q4H PRN ORAL FOR SBP > 160. 03/09/18 19:24 04/07/18 19:23 Daptomycin 450 mg/ Sodium Chloride 110 ml @ 200 mls/hr Q48H IV 03/09/18 20:00 03/14/18 23:59 03/09/18 21:51 Diphenhydramine HCl (Benadryl) 50 mg Q6H PRN ORAL Itching 03/09/18 19:24 04/08/18 19:23 Docusate Sodium (Colace) 100 mg THREE TIMES A DAY ORAL 03/10/18 13:00 04/09/18 12:59 03/10/18 12:38 Epoetin Alfonzo (Procrit (for ESRD on dialysis)) 10,000 units SUN-SUN-SUN SUBQ 03/11/18 21:00 03/27/18 20:59 Haloperidol Lactate (Haldol) 5 mg Q4H PRN IM AGITATION 03/09/18 19:24 03/25/18 19:23 03/09/18 21:50 Lansoprazole (Prevacid) 30 mg DAILY@0730 ORAL 03/10/18 07:30 03/31/18 07:29 03/10/18 08:26 Oxycodone/ Acetaminophen (Percocet 10/325) 1 tab Q4H PRN ORAL Severe Pain (Pain Scale 7-10) 03/09/18 19:25 03/15/18 19:24 Prochlorperazine (Compazine) 10 mg Q6H PRN IVP Nausea & Vomiting 03/09/18 19:25 03/25/18 19:24 Quetiapine Fumarate (SEROquel) 25 mg QHS ORAL 03/09/18 22:00 03/25/18 21:59 03/09/18 21:50 Sevelamer Carbonate (Renvela) 2,400 mg QID ORAL 03/10/18 13:00 04/01/18 07:29 03/10/18 12:38 Latosha Contreras M.D. March 10, 2018 13:12
[2018-03-10] MEDS ORDERED: Tubing IV Secondary IV ONE (13:50)
[2018-03-10] MEDS ORDERED: NS 275ml ONE (13:50)
--- NOTE | 2018-03-10 13:57 | Cardiology Progress Note ---
Assessment/Plan Problem List: (1) ESRD (end stage renal disease) on dialysis (2) Hypertension, uncontrolled (3) Anemia in chronic kidney disease (CKD) (4) Bacteremia Status: stable, progressing Status Narrative Transferred from ICU to telemetry s/p removal of AV graft, re-placement on 03/08 for infected graft and persistent bacteremia. Negative AMAURI for thrombus, vegetation Assessment/Plan Continue iv antibiotics per ID. followup blood cultures Hemodialysis per nephrology. Increase activity/ phys therapy. Subjective ROS Limited/Unobtainable: No Subjective Cardiology for Dr. Becker alert, no c/o pain. Asking to walk Objective Last 24 Hour Vital Signs Date Time Temp Pulse Resp B/P (MAP) Pulse Ox O2 Delivery O2 Flow Rate FiO2 03/10/18 09:23 Nasal Cannula 2.0 28 03/10/18 09:23 98 Nasal Cannula 2.0 28 03/10/18 09:23 93 20 Nasal Cannula 2.0 28 03/10/18 08:00 71 03/10/18 08:00 97.8 72 20 128/61 98 97.8 03/10/18 04:00 97.3 79 18 130/67 98 97.3 03/10/18 04:00 75 03/10/18 00:00 75 03/10/18 00:00 97.3 79 18 130/67 98 97.3 03/09/18 20:00 97.3 73 18 131/62 98 97.3 03/09/18 20:00 76 03/09/18 19:05 98 22 Nasal Cannula 2.0 28 03/09/18 19:05 Nasal Cannula 2.0 28 03/09/18 19:05 94 Nasal Cannula 2.0 28 03/09/18 18:00 97.8 77 12 149/61 97 Nasal Cannula 2.0 97.8 03/09/18 17:00 80 16 140/66 97 Nasal Cannula 2.0 03/09/18 16:00 78 10 148/68 98 Nasal Cannula 2.0 03/09/18 15:00 83 10 142/56 95 Nasal Cannula 2.0 03/09/18 14:00 81 10 137/54 96 Nasal Cannula 2.0 General Appearance: WD/WN, no apparent distress, thin EENT: PERRL/EOMI Neck: supple, no JVD Rhythm: NSR Cardiovascular: normal rate, regular rhythm, no gallop/murmur Respiratory/Chest: lungs clear Abdomen: non tender, soft Extremities: other - R UE dressing intact. no periph edema Intake and Output 03/09/18 03/10/18 19:00 07:00 Intake Total 535 ml 120 ml Output Total 0 ml 0 ml Balance 535 ml 120 ml Intake Oral 480 ml 120 ml IV Total 55 ml Output Urine Total 0 ml 0 ml Laboratory Tests Test 03/10/18 04:50 03/10/18 05:50 03/10/18 06:00 White Blood Count 6.7 K/UL (4.8-10.8) Red Blood Count 3.03 M/UL (4.70-6.10) L Hemoglobin 9.0 G/DL (14.2-18.0) L Hematocrit 28.3 % (42.0-52.0) L Mean Corpuscular Volume 93 FL (80-99) Mean Corpuscular Hemoglobin 29.8 PG (27.0-31.0) Mean Corpuscular Hemoglobin Concent 31.9 G/DL (32.0-36.0) L Red Cell Distribution Width 19.6 % (11.6-14.8) H Platelet Count 142 K/UL (150-450) L Mean Platelet Volume 5.9 FL (6.5-10.1) L Neutrophils (%) (Auto) 76.7 % (45.0-75.0) H Lymphocytes (%) (Auto) 14.2 % (20.0-45.0) L Monocytes (%) (Auto) 6.8 % (1.0-10.0) Eosinophils (%) (Auto) 1.4 % (0.0-3.0) Basophils (%) (Auto) 1.0 % (0.0-2.0) Sodium Level 139 MMOL/L (136-145) Potassium Level 4.0 MMOL/L (3.5-5.1) Chloride Level 95 MMOL/L (98-107) L Carbon Dioxide Level 32 MMOL/L (21-32) Anion Gap 12 mmol/L (5-15) Blood Urea Nitrogen 59 mg/dL (7-18) H Creatinine 9.0 MG/DL (0.55-1.30) H Estimat Glomerular Filtration Rate 6.0 mL/min (>60) Glucose Level 107 MG/DL (74-106) H Calcium Level 8.4 MG/DL (8.5-10.1) L Phosphorus Level 10.2 MG/DL (2.5-4.9) H Magnesium Level 2.5 MG/DL (1.5-2.4) H Total Bilirubin 0.8 MG/DL (0.2-1.0) Aspartate Amino Transf (AST/SGOT) 14 U/L (15-37) L Alanine Aminotransferase (ALT/SGPT) 8 U/L (12-78) L Alkaline Phosphatase 491 U/L (46-116) H Pro-B-Type Natriuretic Peptide 19205 pg/mL (0-125) H Total Protein 7.3 G/DL (6.4-8.2) Albumin 2.7 G/DL (3.4-5.0) L Globulin 4.6 g/dL Albumin/Globulin Ratio 0.6 (1.0-2.7) L C-Reactive Protein, Quantitative 12.1 mg/dL (0.00-0.90) H Microbiology Date/Time Source Procedure Growth Status 03/09/18 04:30 Blood Blood Culture - Preliminary NO GROWTH AFTER 24 HOURS Resulted 03/09/18 04:15 Blood Blood Culture - Preliminary NO GROWTH AFTER 24 HOURS Resulted 03/09/18 08:30 Sputum Gram Stain - Final Resulted 03/09/18 08:30 Sputum Sputum Culture Pending Resulted 03/08/18 14:28 Arm Right Gram Stain - Final Resulted 03/08/18 14:28 Arm Right Surgical Biopsy Culture - Preliminary NO GROWTH AFTER 24 HOURS Resulted 03/08/18 14:28 Arm Right Gram Stain - Final Resulted 03/08/18 14:28 Aerobic Culture - Preliminary Staphylococcus Aureus Resulted 03/08/18 14:28 Arm Right Anaerobic Culture - Preliminary NO GROWTH Resulted Pauline Kang MD March 10, 2018 13:57
--- NOTE | 2018-03-10 14:50 | Pulmonology Progress Note ---
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 respiratory treatment titrate fio2 to sat of 92% check Hemoglobin, remains around 7 all meds reviewed Subjective ROS Limited/Unobtainable: No Constitutional: Reports: no symptoms Respiratory: Reports: no symptoms Allergies: Coded Allergies: No Known Allergies (Unverified , 02/02/18) Objective Last 24 Hour Vital Signs Date Time Temp Pulse Resp B/P (MAP) Pulse Ox O2 Delivery O2 Flow Rate FiO2 03/10/18 09:23 Nasal Cannula 2.0 28 03/10/18 09:23 98 Nasal Cannula 2.0 28 03/10/18 09:23 93 20 Nasal Cannula 2.0 28 03/10/18 08:00 71 03/10/18 08:00 97.8 72 20 128/61 98 97.8 03/10/18 04:00 97.3 79 18 130/67 98 97.3 03/10/18 04:00 75 03/10/18 00:00 75 03/10/18 00:00 97.3 79 18 130/67 98 97.3 03/09/18 20:00 97.3 73 18 131/62 98 97.3 03/09/18 20:00 76 03/09/18 19:05 98 22 Nasal Cannula 2.0 28 03/09/18 19:05 Nasal Cannula 2.0 28 03/09/18 19:05 94 Nasal Cannula 2.0 28 03/09/18 18:00 97.8 77 12 149/61 97 Nasal Cannula 2.0 97.8 03/09/18 17:00 80 16 140/66 97 Nasal Cannula 2.0 03/09/18 16:00 78 10 148/68 98 Nasal Cannula 2.0 03/09/18 15:00 83 10 142/56 95 Nasal Cannula 2.0 Intake and Output 03/09/18 03/10/18 19:00 07:00 Intake Total 535 ml 120 ml Output Total 0 ml 0 ml Balance 535 ml 120 ml Intake Oral 480 ml 120 ml IV Total 55 ml Output Urine Total 0 ml 0 ml Objective General Appearance: WD/WN HEENT: normocephalic, atraumatic Respiratory/Chest: chest wall non-tender, lungs clear Cardiovascular: normal peripheral pulses, normal rate, regular rhythm Abdomen: normal bowel sounds, soft, non tender, no organomegaly, non distended Extremities: no cyanosis, no clubbing, no edema Skin: no rash, no lesions Neurologic/Psychiatric: 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 II-XII grossly normal Microbiology Date/Time Source Procedure Growth Status 03/09/18 04:30 Blood Blood Culture - Preliminary NO GROWTH AFTER 24 HOURS Resulted 03/09/18 04:15 Blood Blood Culture - Preliminary NO GROWTH AFTER 24 HOURS Resulted 03/09/18 08:30 Sputum Gram Stain - Final Resulted 03/09/18 08:30 Sputum Sputum Culture Pending Resulted 03/08/18 14:28 Arm Right Gram Stain - Final Resulted 03/08/18 14:28 Arm Right Surgical Biopsy Culture - Preliminary NO GROWTH AFTER 24 HOURS Resulted 03/08/18 14:28 Arm Right Gram Stain - Final Resulted 03/08/18 14:28 Aerobic Culture - Preliminary Staphylococcus Aureus Resulted 03/08/18 14:28 Arm Right Anaerobic Culture - Preliminary NO GROWTH Resulted Laboratory Tests 03/10/18 04:50: White Blood Count 6.7, Red Blood Count 3.03L, Hemoglobin 9.0L, Hematocrit 28.3L , Mean Corpuscular Volume 93, Mean Corpuscular Hemoglobin 29.8, Mean Corpuscular Hemoglobin Concent 31.9L, Red Cell Distribution Width 19.6H, Platelet Count 142L, Mean Platelet Volume 5.9L, Neutrophils (%) (Auto) 76.7H, Lymphocytes (%) (Auto) 14.2L, Monocytes (%) (Auto) 6.8, Eosinophils (%) (Auto) 1.4, Basophils (%) (Auto) 1.0 03/10/18 05:50: Sodium Level 139, Potassium Level 4.0, Chloride Level 95L, Carbon Dioxide Level 32, Anion Gap 12, Blood Urea Nitrogen 59H, Creatinine 9.0H, Estimat Glomerular Filtration Rate 6.0, Glucose Level 107H, Calcium Level 8.4L, Phosphorus Level 10.2H, Magnesium Level 2.5H, Total Bilirubin 0.8, Aspartate Amino Transf (AST/ SGOT) 14L, Alanine Aminotransferase (ALT/SGPT) 8L, Alkaline Phosphatase 491H, Pro-B-Type Natriuretic Peptide 73915T, Total Protein 7.3, Albumin 2.7L, Globulin 4.6, Albumin/Globulin Ratio 0.6L 03/10/18 06:00: C-Reactive Protein, Quantitative 12.1H Current Medications Medications (Trade) Dose Ordered Sig/Blessing Route PRN Reason Start Time Stop Time Status Last Admin Dose Admin Acetaminophen (Tylenol) 500 mg 3XW PRN ORAL WITH DIALYSIS 03/09/18 19:24 04/08/18 19:23 Acetaminophen (Tylenol) 650 mg Q4H PRN RECTAL Mild Pain/Temp > 100.5 03/09/18 19:24 04/07/18 19:23 Acetaminophen (Tylenol) 650 mg Q6H PRN ORAL Mild Pain/Temp > 100.5 03/09/18 19:24 04/08/18 19:23 03/10/18 14:31 Calcium Acetate (Phoslo) 1,334 mg TIAC ORAL 03/10/18 11:30 04/09/18 11:29 03/10/18 12:38 Ceftaroline Fosamil 200 mg/ Sodium Chloride 110 ml @ 110 mls/hr Q12H IVPB 03/09/18 21:30 03/16/18 23:59 03/10/18 09:46 Chlorhexidine Gluconate (Miriam-Hex 2%) 1 applic DAILY@2000 TOPIC 03/09/18 20:00 04/07/18 20:59 03/09/18 21:51 Clonidine HCl (Catapres Tab) 0.1 mg Q4H PRN ORAL FOR SBP > 160. 03/09/18 19:24 04/07/18 19:23 Daptomycin 450 mg/ Sodium Chloride 110 ml @ 200 mls/hr Q48H IV 03/09/18 20:00 03/14/18 23:59 03/09/18 21:51 Diphenhydramine HCl (Benadryl) 50 mg Q6H PRN ORAL Itching 03/09/18 19:24 04/08/18 19:23 Docusate Sodium (Colace) 100 mg THREE TIMES A DAY ORAL 03/10/18 13:00 04/09/18 12:59 03/10/18 12:38 Epoetin Alfonzo (Procrit (for ESRD on dialysis)) 10,000 units SUN-WED-SUN SUBQ 03/11/18 21:00 03/27/18 20:59 Haloperidol Lactate (Haldol) 5 mg Q4H PRN IM AGITATION 03/09/18 19:24 03/25/18 19:23 03/09/18 21:50 Lansoprazole (Prevacid) 30 mg DAILY@0730 ORAL 03/10/18 07:30 03/31/18 07:29 03/10/18 08:26 Oxycodone/ Acetaminophen (Percocet 10/325) 1 tab Q4H PRN ORAL Severe Pain (Pain Scale 7-10) 03/09/18 19:25 03/15/18 19:24 Prochlorperazine (Compazine) 10 mg Q6H PRN IVP Nausea & Vomiting 03/09/18 19:25 03/25/18 19:24 Quetiapine Fumarate (SEROquel) 25 mg QHS ORAL 03/09/18 22:00 03/25/18 21:59 03/09/18 21:50 Sevelamer Carbonate (Renvela) 2,400 mg QID ORAL 03/10/18 13:00 04/01/18 07:29 03/10/18 12:38 Clement Mcleod MD March 10, 2018 14:50
--- NOTE | 2018-03-10 15:48 | Vascular Surgery Progress Note ---
Subjective Subjective All noted No new complaints Doing better No hand no arm pain Objective Objective Last 24 Hour Vital Signs Date Time Temp Pulse Resp B/P (MAP) Pulse Ox O2 Delivery O2 Flow Rate FiO2 03/10/18 09:23 Nasal Cannula 2.0 28 03/10/18 09:23 98 Nasal Cannula 2.0 28 03/10/18 09:23 93 20 Nasal Cannula 2.0 28 03/10/18 08:00 71 03/10/18 08:00 97.8 72 20 128/61 98 97.8 03/10/18 04:00 97.3 79 18 130/67 98 97.3 03/10/18 04:00 75 03/10/18 00:00 75 03/10/18 00:00 97.3 79 18 130/67 98 97.3 03/09/18 20:00 97.3 73 18 131/62 98 97.3 03/09/18 20:00 76 03/09/18 19:05 98 22 Nasal Cannula 2.0 28 03/09/18 19:05 Nasal Cannula 2.0 28 03/09/18 19:05 94 Nasal Cannula 2.0 28 03/09/18 18:00 97.8 77 12 149/61 97 Nasal Cannula 2.0 97.8 03/09/18 17:00 80 16 140/66 97 Nasal Cannula 2.0 03/09/18 16:00 78 10 148/68 98 Nasal Cannula 2.0 Intake and Output 03/09/18 03/10/18 19:00 07:00 Intake Total 535 ml 120 ml Output Total 0 ml 0 ml Balance 535 ml 120 ml Intake Oral 480 ml 120 ml IV Total 55 ml Output Urine Total 0 ml 0 ml Laboratory Tests Test 03/10/18 04:50 03/10/18 05:50 03/10/18 06:00 White Blood Count 6.7 K/UL (4.8-10.8) Red Blood Count 3.03 M/UL (4.70-6.10) L Hemoglobin 9.0 G/DL (14.2-18.0) L Hematocrit 28.3 % (42.0-52.0) L Mean Corpuscular Volume 93 FL (80-99) Mean Corpuscular Hemoglobin 29.8 PG (27.0-31.0) Mean Corpuscular Hemoglobin Concent 31.9 G/DL (32.0-36.0) L Red Cell Distribution Width 19.6 % (11.6-14.8) H Platelet Count 142 K/UL (150-450) L Mean Platelet Volume 5.9 FL (6.5-10.1) L Neutrophils (%) (Auto) 76.7 % (45.0-75.0) H Lymphocytes (%) (Auto) 14.2 % (20.0-45.0) L Monocytes (%) (Auto) 6.8 % (1.0-10.0) Eosinophils (%) (Auto) 1.4 % (0.0-3.0) Basophils (%) (Auto) 1.0 % (0.0-2.0) Sodium Level 139 MMOL/L (136-145) Potassium Level 4.0 MMOL/L (3.5-5.1) Chloride Level 95 MMOL/L (98-107) L Carbon Dioxide Level 32 MMOL/L (21-32) Anion Gap 12 mmol/L (5-15) Blood Urea Nitrogen 59 mg/dL (7-18) H Creatinine 9.0 MG/DL (0.55-1.30) H Estimat Glomerular Filtration Rate 6.0 mL/min (>60) Glucose Level 107 MG/DL (74-106) H Calcium Level 8.4 MG/DL (8.5-10.1) L Phosphorus Level 10.2 MG/DL (2.5-4.9) H Magnesium Level 2.5 MG/DL (1.5-2.4) H Total Bilirubin 0.8 MG/DL (0.2-1.0) Aspartate Amino Transf (AST/SGOT) 14 U/L (15-37) L Alanine Aminotransferase (ALT/SGPT) 8 U/L (12-78) L Alkaline Phosphatase 491 U/L (46-116) H Pro-B-Type Natriuretic Peptide 02979 pg/mL (0-125) H Total Protein 7.3 G/DL (6.4-8.2) Albumin 2.7 G/DL (3.4-5.0) L Globulin 4.6 g/dL Albumin/Globulin Ratio 0.6 (1.0-2.7) L C-Reactive Protein, Quantitative 12.1 mg/dL (0.00-0.90) H Height (Feet): 5 Height (Inches): 7.00 Weight (Pounds): 130 Extremities 3+ palpable right radial pulse Right arm dressing changed and incisions c/d/i Right arm wound packed with dressing Left neck Saravanan c/d/i cvs rrr lungs cta abd softnontender feet warm intact dopplers Assessment/Plan Assessment Doing better s/p complete right arm infected AV ptfe graft removal with pus abscess around blistered wound s/p I&D s/p resection of right brachial artery anastomosis and right brachial artery bypass with vein s/p left ij Saravanan cath with pigtail ESRD on HD Hx of infected right arm av graft with blistered abscess Recurrent MRSA bacteremia Hep C+ Left leg DVT Hx of IVC filter Plan Abx per ID HD via left neck Saravanan cath Right arm wound care Check left arm duplex For new permcath left arm av shunt once medically cleared and ok with ID Hep C per GI d/w pt at length d/w nurse at bedside Jon Neal MD March 10, 2018 15:48
[2018-03-10 16:00] VITALS: BP 121/59
--- NOTE | 2018-03-10 17:11 | Consultation ---
History of Present Illness General Chief Complaint: Abnormal Labs Referring physician: Dr. Fritz Reason for Consultation: sepsis Present Illness Allergies: Coded Allergies: No Known Allergies (Unverified , 02/02/18) Medication History Scheduled Albuterol Sulfate* (Proair Hfa*), 2 PUFF INH EVERY 4 HOURS, (Reported) Amlodipine Besylate (Norvasc), 10 MG ORAL DAILY, (Reported) Amlodipine Besylate* (Amlodipine Besylate*), 10 MG ORAL DAILY, (Reported) Bisacodyl (Bisacodyl), 10 MG RC BID, (Reported) Clonidine Hcl* (Catapres*), 0.2 MG ORAL BID, (Reported) Clonidine Hcl* (Catapres*), 0.1 MG ORAL EVERY 8 HOURS, (Reported) Darbepoetin Alfonzo In Polysorbat (Aranesp), 100 MCG SUBQ ONCE A WEEK, (Reported) Docusate Sodium (Docusate Sodium), 100 MG ORAL DAILY, (Reported) Docusate Sodium* (Docusate Sodium*), 100 MG ORAL TWICE A DAY, (Reported) Epoetin Alfonzo (Epogen), 10,000 UNIT SUBQ THREE TIMES A WEEK, (Reported) Folic Acid* (Folic Acid*), 1 MG ORAL DAILY, (Reported) Gabapentin (Gabapentin), 300 MG ORAL THREE TIMES A DAY, (Reported) Gabapentin* (Gabapentin*), 300 MG ORAL THREE TIMES A DAY, (Reported) Haloperidol Lactate (Haloperidol), 5 MG IM EVERY 4 HOURS, (Reported) Haloperidol Lactate (Haldol), 5 MG IM EVERY 4 HOURS, (Reported) Hydralazine Hcl* (Hydralazine Hcl*), 25 MG ORAL FOUR TIMES A DAY, (Reported) Hydralazine Hcl* (Hydralazine Hcl*), 25 MG ORAL EVERY 8 HOURS, (Reported) Lansoprazole* (Prevacid*), 30 MG ORAL DAILY, (Reported) Metoprolol Tartrate* (Metoprolol Tartrate*), 50 MG ORAL DAILY, (Reported) Nicotine 14MG Patch* (Nicoderm Cq 14MG*), 1 EACH TD DAILY, (Reported) Nicotine 14MG Patch* (Nicoderm Cq 14MG*), 1 EACH TD DAILY, (Reported) Quetiapine Fumarate* (Seroquel*), 25 MG ORAL BEDTIME, (Reported) Sennosides (Senna), 8.6 MG PO DAILY, (Reported) Sevelamer Carbonate (Renvela), 3 TAB ORAL THREE TIMES A DAY, (Reported) Sevelamer Carbonate* (Renvela*), 800 MG ORAL THREE TIMES A DAY, (Reported) Warfarin Sod* (Coumadin*), 2.5 MG ORAL DAILY, (Reported) [Robitussin Dm], 10 ML PO EVERY 6 HOURS, (Reported) Scheduled PRN Acetaminophen* (Acetaminophen 325MG Tablet*), 650 MG ORAL Q4H PRN for Pain Scale (3-5), (Reported) Acetaminophen* (Acetaminophen 325MG Tablet*), 650 MG ORAL Q6H PRN for Pain Scale (3-5), (Reported) Acetaminophen* (Tylenol Extra Strength*), 500 MG ORAL THREE TIMES A WEEK PRN for Mild Pain/Temp > 100.5, (Reported) Alprazolam* (Xanax*), 0.25 MG ORAL THREE TIMES A DAY PRN for For Anxiety, ( Reported) Diphenhydramine HCl (Diphenhydramine HCl), 50 MG ORAL Q6H PRN for Itching, ( Reported) Ipratropium [place] 0.5MG/2.5ML (Ipratropium [place] 0.5MG/2.5ML), 2 PUFFS HHN FIVE TIMES A DAY PRN for Shortness of Breath, (Reported) Ondansetron Odt* (Zofran Odt*), 4 MG ORAL EVERY 4 HOURS PRN for Nausea & Vomiting, (Reported) Oxycodone HCl (Oxycodone HCl), 5 MG ORAL Q4H PRN for For Pain, (Reported) Oxycodone Hcl (Oxycodone Hcl), 20 MG ORAL EVERY 12 HOURS PRN for For Pain, ( Reported) Oxycodone/Acetaminophen 5-325* (Percocet 5-325 Mg Tablet*), 1 TAB ORAL Q4H PRN for For Pain, (Reported) Zolpidem Tartrate* (Ambien*), 10 MG ORAL BEDTIME PRN for Insomnia, (Reported) Miscellaneous Medications Haloperidol Lactate (Haldol), 5 MG IM, (Reported) Patient History Healthcare decision maker Resuscitation status Full Code Advanced Directive on File Physical Exam Last 24 Hour Vital Signs Date Time Temp Pulse Resp B/P (MAP) Pulse Ox O2 Delivery O2 Flow Rate FiO2 03/10/18 16:00 97.7 81 20 121/59 98 97.7 03/10/18 12:00 98.2 71 20 123/57 99 98.2 03/10/18 09:23 Nasal Cannula 2.0 28 03/10/18 09:23 98 Nasal Cannula 2.0 28 03/10/18 09:23 93 20 Nasal Cannula 2.0 28 03/10/18 08:00 71 03/10/18 08:00 97.8 72 20 128/61 98 97.8 03/10/18 04:00 97.3 79 18 130/67 98 97.3 03/10/18 04:00 75 03/10/18 00:00 75 03/10/18 00:00 97.3 79 18 130/67 98 97.3 03/09/18 20:00 97.3 73 18 131/62 98 97.3 03/09/18 20:00 76 03/09/18 19:05 98 22 Nasal Cannula 2.0 28 03/09/18 19:05 Nasal Cannula 2.0 28 03/09/18 19:05 94 Nasal Cannula 2.0 28 03/09/18 18:00 97.8 77 12 149/61 97 Nasal Cannula 2.0 97.8 Intake and Output 03/09/18 03/10/18 19:00 07:00 Intake Total 535 ml 120 ml Output Total 0 ml 0 ml Balance 535 ml 120 ml Intake Oral 480 ml 120 ml IV Total 55 ml Output Urine Total 0 ml 0 ml Laboratory Tests Test 03/10/18 04:50 03/10/18 05:50 03/10/18 06:00 White Blood Count 6.7 K/UL (4.8-10.8) Red Blood Count 3.03 M/UL (4.70-6.10) L Hemoglobin 9.0 G/DL (14.2-18.0) L Hematocrit 28.3 % (42.0-52.0) L Mean Corpuscular Volume 93 FL (80-99) Mean Corpuscular Hemoglobin 29.8 PG (27.0-31.0) Mean Corpuscular Hemoglobin Concent 31.9 G/DL (32.0-36.0) L Red Cell Distribution Width 19.6 % (11.6-14.8) H Platelet Count 142 K/UL (150-450) L Mean Platelet Volume 5.9 FL (6.5-10.1) L Neutrophils (%) (Auto) 76.7 % (45.0-75.0) H Lymphocytes (%) (Auto) 14.2 % (20.0-45.0) L Monocytes (%) (Auto) 6.8 % (1.0-10.0) Eosinophils (%) (Auto) 1.4 % (0.0-3.0) Basophils (%) (Auto) 1.0 % (0.0-2.0) Sodium Level 139 MMOL/L (136-145) Potassium Level 4.0 MMOL/L (3.5-5.1) Chloride Level 95 MMOL/L (98-107) L Carbon Dioxide Level 32 MMOL/L (21-32) Anion Gap 12 mmol/L (5-15) Blood Urea Nitrogen 59 mg/dL (7-18) H Creatinine 9.0 MG/DL (0.55-1.30) H Estimat Glomerular Filtration Rate 6.0 mL/min (>60) Glucose Level 107 MG/DL (74-106) H Calcium Level 8.4 MG/DL (8.5-10.1) L Phosphorus Level 10.2 MG/DL (2.5-4.9) H Magnesium Level 2.5 MG/DL (1.5-2.4) H Total Bilirubin 0.8 MG/DL (0.2-1.0) Aspartate Amino Transf (AST/SGOT) 14 U/L (15-37) L Alanine Aminotransferase (ALT/SGPT) 8 U/L (12-78) L Alkaline Phosphatase 491 U/L (46-116) H Pro-B-Type Natriuretic Peptide 92029 pg/mL (0-125) H Total Protein 7.3 G/DL (6.4-8.2) Albumin 2.7 G/DL (3.4-5.0) L Globulin 4.6 g/dL Albumin/Globulin Ratio 0.6 (1.0-2.7) L C-Reactive Protein, Quantitative 12.1 mg/dL (0.00-0.90) H Height (Feet): 5 Height (Inches): 7.00 Weight (Pounds): 130 Medications Current Medications Medications (Trade) Dose Ordered Sig/Blessing Route PRN Reason Start Time Stop Time Status Last Admin Dose Admin Acetaminophen (Tylenol) 500 mg 3XW PRN ORAL WITH DIALYSIS 03/09/18 19:24 04/08/18 19:23 Acetaminophen (Tylenol) 650 mg Q4H PRN RECTAL Mild Pain/Temp > 100.5 03/09/18 19:24 04/07/18 19:23 Acetaminophen (Tylenol) 650 mg Q6H PRN ORAL Mild Pain/Temp > 100.5 03/09/18 19:24 04/08/18 19:23 03/10/18 14:31 Calcium Acetate (Phoslo) 1,334 mg TIAC ORAL 03/10/18 11:30 04/09/18 11:29 03/10/18 12:38 Ceftaroline Fosamil 200 mg/ Sodium Chloride 110 ml @ 110 mls/hr Q12H IVPB 03/09/18 21:30 03/16/18 23:59 03/10/18 09:46 Chlorhexidine Gluconate (Miriam-Hex 2%) 1 applic DAILY@2000 TOPIC 03/09/18 20:00 04/07/18 20:59 03/09/18 21:51 Clonidine HCl (Catapres Tab) 0.1 mg Q4H PRN ORAL FOR SBP > 160. 03/09/18 19:24 04/07/18 19:23 Daptomycin 450 mg/ Sodium Chloride 110 ml @ 200 mls/hr Q48H IV 03/09/18 20:00 03/14/18 23:59 03/09/18 21:51 Diphenhydramine HCl (Benadryl) 50 mg Q6H PRN ORAL Itching 03/09/18 19:24 04/08/18 19:23 Docusate Sodium (Colace) 100 mg THREE TIMES A DAY ORAL 03/10/18 13:00 04/09/18 12:59 03/10/18 12:38 Epoetin Alfonzo (Procrit (for ESRD on dialysis)) 10,000 units MON-WED-SUN SUBQ 03/11/18 21:00 03/27/18 20:59 Haloperidol Lactate (Haldol) 5 mg Q4H PRN IM AGITATION 03/09/18 19:24 03/25/18 19:23 03/09/18 21:50 Lansoprazole (Prevacid) 30 mg DAILY@0730 ORAL 03/10/18 07:30 03/31/18 07:29 03/10/18 08:26 Oxycodone/ Acetaminophen (Percocet 10/325) 1 tab Q4H PRN ORAL Severe Pain (Pain Scale 7-10) 03/09/18 19:25 03/15/18 19:24 03/10/18 16:07 Prochlorperazine (Compazine) 10 mg Q6H PRN IVP Nausea & Vomiting 03/09/18 19:25 03/25/18 19:24 Quetiapine Fumarate (SEROquel) 25 mg QHS ORAL 03/09/18 22:00 03/25/18 21:59 03/09/18 21:50 Sevelamer Carbonate (Renvela) 2,400 mg QID ORAL 03/10/18 13:00 04/01/18 07:29 03/10/18 12:38 Assessment/Plan Assessment/Plan (1) Right hip pain (2) Right hip Fracture (3) S/p ORIF of right hip Pt will be discontinued on Morphine and started on Dilaudid 1mg subQ Q4H PRN severe pain. D/w Dr. Childers he concurred. Thank you for the courtesy of this consultation. KANWAL CURRAN March 10, 2018 17:11
--- NOTE | 2018-03-10 17:12 | General Progress Note ---
Assessment/Plan Assessment/Plan (1) Right hip pain (2) Right hip Fracture (3) S/p ORIF of right hip Pt will be continued on Percocet HOLD OPIOIDS FOR OVERSEDATION OR SBP<90 OR DBP<60 OR O2SAT<92% OR RR<12 D/w Dr. Childers he concurred. Subjective Date patient seen: March 10, 2018 Time patient seen: 19:30 - pm Allergies: Coded Allergies: No Known Allergies (Unverified , 02/02/18) Subjective Constitutional: Reports: weakness HEENT: Reports: no symptoms Cardiovascular: Reports: no symptoms Respiratory: Reports: shortness of breath Gastrointestinal/Abdominal: Reports: no symptoms Genitourinary: Reports: no symptoms Neurologic/Psychiatric: Reports: weakness Endocrine: Reports: no symptoms Hematologic/Lymphatic: Reports: no symptoms Subjective Patient is in bed and has no new complaints. Objective Last 24 Hour Vital Signs Date Time Temp Pulse Resp B/P (MAP) Pulse Ox O2 Delivery O2 Flow Rate FiO2 03/10/18 16:00 97.7 81 20 121/59 98 97.7 03/10/18 12:00 98.2 71 20 123/57 99 98.2 03/10/18 09:23 Nasal Cannula 2.0 28 03/10/18 09:23 98 Nasal Cannula 2.0 28 03/10/18 09:23 93 20 Nasal Cannula 2.0 28 03/10/18 08:00 71 03/10/18 08:00 97.8 72 20 128/61 98 97.8 03/10/18 04:00 97.3 79 18 130/67 98 97.3 03/10/18 04:00 75 03/10/18 00:00 75 03/10/18 00:00 97.3 79 18 130/67 98 97.3 03/09/18 20:00 97.3 73 18 131/62 98 97.3 03/09/18 20:00 76 03/09/18 19:05 98 22 Nasal Cannula 2.0 28 03/09/18 19:05 Nasal Cannula 2.0 28 03/09/18 19:05 94 Nasal Cannula 2.0 28 03/09/18 18:00 97.8 77 12 149/61 97 Nasal Cannula 2.0 97.8 Intake and Output 03/09/18 03/10/18 19:00 07:00 Intake Total 535 ml 120 ml Output Total 0 ml 0 ml Balance 535 ml 120 ml Intake Oral 480 ml 120 ml IV Total 55 ml Output Urine Total 0 ml 0 ml Laboratory Tests 03/10/18 04:50: White Blood Count 6.7, Red Blood Count 3.03L, Hemoglobin 9.0L, Hematocrit 28.3L , Mean Corpuscular Volume 93, Mean Corpuscular Hemoglobin 29.8, Mean Corpuscular Hemoglobin Concent 31.9L, Red Cell Distribution Width 19.6H, Platelet Count 142L, Mean Platelet Volume 5.9L, Neutrophils (%) (Auto) 76.7H, Lymphocytes (%) (Auto) 14.2L, Monocytes (%) (Auto) 6.8, Eosinophils (%) (Auto) 1.4, Basophils (%) (Auto) 1.0 03/10/18 05:50: Sodium Level 139, Potassium Level 4.0, Chloride Level 95L, Carbon Dioxide Level 32, Anion Gap 12, Blood Urea Nitrogen 59H, Creatinine 9.0H, Estimat Glomerular Filtration Rate 6.0, Glucose Level 107H, Calcium Level 8.4L, Phosphorus Level 10.2H, Magnesium Level 2.5H, Total Bilirubin 0.8, Aspartate Amino Transf (AST/ SGOT) 14L, Alanine Aminotransferase (ALT/SGPT) 8L, Alkaline Phosphatase 491H, Pro-B-Type Natriuretic Peptide 10084C, Total Protein 7.3, Albumin 2.7L, Globulin 4.6, Albumin/Globulin Ratio 0.6L 03/10/18 06:00: C-Reactive Protein, Quantitative 12.1H Height (Feet): 5 Height (Inches): 7.00 Weight (Pounds): 130 Objective Neck: non-tender, normal alignment, supple, normal inspection Respiratory/Chest: decreased breath sounds Cardiovascular/Chest: normal rate, regular rhythm Abdomen: non tender, soft, no organomegaly Extremities: inflammation - right hip tenderness to palpation Skin Exam: normal pigmentation, warm/dry KANWAL CURRAN PMarcelo March 10, 2018 17:12
[2018-03-10 20:00] VITALS: BP 125/68
--- NOTE | 2018-03-10 22:19 | General Progress Note ---
Assessment/Plan Problem List: (1) ESRD (end stage renal disease) on dialysis ICD Codes: N18.6 - End stage renal disease; Z99.2 - Dependence on renal dialysis SNOMED: 365750245 (2) Abnormal laboratory test result ICD Codes: R89.9 - Unspecified abnormal finding in specimens from other organs , systems and tissues SNOMED: 068382321 (3) Hypertension, uncontrolled ICD Codes: I10 - Essential (primary) hypertension SNOMED: 61812011, 33493476 (4) Anemia in chronic kidney disease (CKD) ICD Codes: N18.9 - Chronic kidney disease, unspecified; D63.1 - Anemia in chronic kidney disease SNOMED: 337176185, 520163728 (5) Hepatitis C ICD Codes: B19.20 - Unspecified viral hepatitis C without hepatic coma SNOMED: 37160818 (6) Sepsis ICD Codes: A41.9 - Sepsis, unspecified organism SNOMED: 01387612 Status: progressing Assessment/Plan anemia gi bleed moniter for bleeding esrd htn reviewed chart and labs Subjective ROS Limited/Unobtainable: Yes Allergies: Coded Allergies: No Known Allergies (Unverified , 02/02/18) Objective Last 24 Hour Vital Signs Date Time Temp Pulse Resp B/P (MAP) Pulse Ox O2 Delivery O2 Flow Rate FiO2 03/10/18 16:00 97.7 81 20 121/59 98 97.7 03/10/18 12:00 98.2 71 20 123/57 99 98.2 03/10/18 09:23 Nasal Cannula 2.0 28 03/10/18 09:23 98 Nasal Cannula 2.0 28 03/10/18 09:23 93 20 Nasal Cannula 2.0 28 03/10/18 08:00 71 03/10/18 08:00 97.8 72 20 128/61 98 97.8 03/10/18 04:00 97.3 79 18 130/67 98 97.3 03/10/18 04:00 75 03/10/18 00:00 75 03/10/18 00:00 97.3 79 18 130/67 98 97.3 Intake and Output 03/09/18 03/10/18 19:00 07:00 Intake Total 535 ml 120 ml Output Total 0 ml 0 ml Balance 535 ml 120 ml Intake Oral 480 ml 120 ml IV Total 55 ml Output Urine Total 0 ml 0 ml Laboratory Tests 03/10/18 04:50: White Blood Count 6.7, Red Blood Count 3.03L, Hemoglobin 9.0L, Hematocrit 28.3L , Mean Corpuscular Volume 93, Mean Corpuscular Hemoglobin 29.8, Mean Corpuscular Hemoglobin Concent 31.9L, Red Cell Distribution Width 19.6H, Platelet Count 142L, Mean Platelet Volume 5.9L, Neutrophils (%) (Auto) 76.7H, Lymphocytes (%) (Auto) 14.2L, Monocytes (%) (Auto) 6.8, Eosinophils (%) (Auto) 1.4, Basophils (%) (Auto) 1.0 03/10/18 05:50: Sodium Level 139, Potassium Level 4.0, Chloride Level 95L, Carbon Dioxide Level 32, Anion Gap 12, Blood Urea Nitrogen 59H, Creatinine 9.0H, Estimat Glomerular Filtration Rate 6.0, Glucose Level 107H, Calcium Level 8.4L, Phosphorus Level 10.2H, Magnesium Level 2.5H, Total Bilirubin 0.8, Aspartate Amino Transf (AST/ SGOT) 14L, Alanine Aminotransferase (ALT/SGPT) 8L, Alkaline Phosphatase 491H, Pro-B-Type Natriuretic Peptide [id number], Total Protein 7.3, Albumin 2.7L, Globulin 4.6, Albumin/Globulin Ratio 0.6L 03/10/18 06:00: C-Reactive Protein, Quantitative 12.1H Height (Feet): 5 Height (Inches): 7.00 Weight (Pounds): 130 Cardiovascular: normal rate Respiratory/Chest: lungs clear Luke Pearson MD March 10, 2018 22:19
[2018-03-10] MEDS: Dyna-Hex 2% Top Sol 2oz TOPIC SCH (22:53)
[2018-03-11] VITALS (8 sets, daily range): BP systolic 104–143; BP diastolic 57–77
--- NOTE | 2018-03-11 01:15 | Progress Note ---
DATE: 03/10/2018 SUBJECTIVE: This is a 63-year-old male patient with anemia and GI bleeding, confusion, disorganized thought process, and mood lability worsened by the stress of his medical illness. That is why, his attending physician has requested daily psychiatric consultation. MENTAL STATUS EXAMINATION: This is a 63-year-old male. Appearance is disheveled. Attitude, irritable and agitated. Affect, guarded and restricted. Intellect poor. Mood, depressed and anxious. Motor activity, psychomotor agitation. Attention span is poor. Orientation x2. Speech is pressured. Thought process, disorganized and illogical. Thought content, auditory hallucinations and paranoid delusions. Insight and judgment are poor. . DIAGNOSIS: Major depressive disorder, mild, recurrent with psychotic features. PLAN: Treat him with Seroquel 25 mg p.o. nightly. Provide 18 to 20 minutes of supportive psychotherapy. Chart was reviewed. Discussed with staff. Seen and assessed in his room. Rony Corral M.D. DR: MICHELLE JOB#: [id number] CC:
[2018-03-11] MEDS: Calcium Acetate 667mg Tab ORAL SCH ×3 (06:01→16:30)
[2018-03-11 07:26] LABS: BASOPHILS % (AUTO) 1.1 % (0.0-2.0); EOSINOPHILS % (AUTO) 1.7 % (0.0-3.0); HEMATOCRIT 26.7 % (42.0-52.0); HEMOGLOBIN 8.6 G/DL (14.2-18.0); LYMPHOCYTES % (AUTO) 15.8 % (20.0-45.0); MEAN CORPUSCULAR VOLUME 94 FL (80-99); MONOCYTES % (AUTO) 5.8 % (1.0-10.0); NEUTROPHILS % (AUTO) 75.5 % (45.0-75.0); PLATELET COUNT 122 K/UL (150-450); RED BLOOD COUNT 2.83 M/UL (4.70-6.10); RED CELL DISTRIBUTION WIDTH 18.8 % (11.6-14.8); WHITE BLOOD COUNT 5.3 K/UL (4.8-10.8)
[2018-03-11 08:06] LABS: ALBUMIN 2.5 G/DL (3.4-5.0); ALBUMIN/GLOBULIN RATIO 0.5 (1.0-2.7); ALKALINE PHOSPHATASE 430 U/L (46-116); ANION GAP 13 mmol/L (5-15); ASPARTATE AMINO TRANSFERASE 13 U/L (15-37); BILIRUBIN,TOTAL 0.8 MG/DL (0.2-1.0); BLOOD UREA NITROGEN 72 mg/dL (7-18); CALCIUM 8.1 MG/DL (8.5-10.1); CARBON DIOXIDE 31 MMOL/L (21-32); CHLORIDE 97 MMOL/L (98-107); CREATININE 10.3 MG/DL (0.55-1.30); PHOSPHORUS 9.8 MG/DL (2.5-4.9); POTASSIUM 4.2 MMOL/L (3.5-5.1); SODIUM 141 MMOL/L (136-145)
[2018-03-11 08:15] LABS: ALANINE AMINOTRANSFERASE 6 U/L (12-78)
[2018-03-11] MEDS: Docusate 100mg cap ORAL SCH ×3 (08:21→18:27)
--- NOTE | 2018-03-11 08:30 | General Progress Note ---
Assessment/Plan Assessment/Plan #. Acute deep venous thrombosis of left lower extremity. --> Status post inferior vena cava filter placement. --> given persistent low h/h and fact that has ivc filter, coumadin has been discontinued --> hold off on further anticoagulation given low h/h #. Anemia of gastrointestinal bleed. --> transfuse if hgb <7, workup has been reviewed --> Appreciate gi recs, has been seen by them --> had endoscopy but location unknown where he had it #. Thrombocytopenia baseline likely plt count of >50-100k, chronic --> likely related to splenomegaly and hepatitis C --> monitor closely for bleed if downtrends though this is less likely --> transfuse to keep plt >20k # Numerous small to borderline mediastinal and bilateral axillary lymph nodes. Prominent subcarinal lymph node. Meet pathological size. Imaging has been reviewed for the last two CAT scans --> further recs per pulm in regards to management, reimaging in future, versus more interventional such as biopsy --> appreciate pulm/cc recommendations #. 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 Anemia of chronic disease is s/p blood transfusion. #. End-stage renal disease, hemodialysis dependent. --> epo to continue 3x a week #. Leukocytosis -- management per ID --> WBC scan pending as well is neg, then AMAURI #. History of femoral neck fracture. On pain control. #. Acute respiratory failure. #. Hep C ++ Subjective Constitutional: Denies: no symptoms, chills, diaphoresis, fever, malaise, weakness, other HEENT: Denies: no symptoms, eye pain, blurred vision, tearing, double vision, ear pain, ear discharge, nose pain, nose congestion, throat pain, throat swelling, mouth pain, mouth swelling, other Cardiovascular: Denies: no symptoms, chest pain, edema, irregular heart rate, lightheadedness, palpitations, syncope, other Respiratory: Denies: no symptoms, cough, orthopnea, shortness of breath, SOB with excertion, SOB at rest, sputum, stridor, wheezing, other Gastrointestinal/Abdominal: Denies: no symptoms, abdomen distended, abdominal pain, black stools, tarry stools, blood in stool, constipated, diarrhea, difficulty swallowing, nausea, poor appetite, poor fluid intake, rectal bleeding , vomiting, other Genitourinary: Denies: no symptoms, burning, discharge, frequency, flank pain, hematuria, incontinence, pain, urgency, other Neurologic/Psychiatric: Denies: no symptoms, anxiety, depressed, emotional problems, headache, numbness, paresthesia, pre-existing deficit, seizure, tingling, tremors, weakness, other Endocrine: Denies: no symptoms, excessive sweating, flushing, intolerance to cold, intolerance to heat, increased hunger, increased thirst, increased urine, unexplained weight gain, unexplained weight loss, other Hematologic/Lymphatic: Denies: no symptoms, anemia, easy bleeding, easy bruising, other Allergies: Coded Allergies: No Known Allergies (Unverified , 02/02/18) Subjective No overnight events. No fever, chills, sob, sleeping and per RN report doing well Objective Last 24 Hour Vital Signs Date Time Temp Pulse Resp B/P (MAP) Pulse Ox O2 Delivery O2 Flow Rate FiO2 03/11/18 04:00 96.4 69 19 118/69 97 96.4 03/11/18 04:00 63 03/11/18 00:00 97.0 65 18 109/57 97 97.0 03/11/18 00:00 63 03/10/18 20:00 71 03/10/18 20:00 97.7 70 22 125/68 94 97.7 03/10/18 19:07 97 Nasal Cannula 2.0 28 03/10/18 19:07 Nasal Cannula 2.0 28 03/10/18 19:07 88 18 Nasal Cannula 2.0 28 03/10/18 16:00 97.7 81 20 121/59 98 97.7 03/10/18 12:00 98.2 71 20 123/57 99 98.2 03/10/18 09:23 Nasal Cannula 2.0 28 03/10/18 09:23 98 Nasal Cannula 2.0 28 03/10/18 09:23 93 20 Nasal Cannula 2.0 28 Intake and Output 03/10/18 03/11/18 19:00 07:00 Intake Total 625 ml Balance 625 ml Intake Oral 515 ml IV Total 110 ml # Voids 2 Laboratory Tests 03/11/18 06:25: White Blood Count 5.3, Red Blood Count 2.83L, Hemoglobin 8.6L, Hematocrit 26.7L , Mean Corpuscular Volume 94, Mean Corpuscular Hemoglobin 30.3, Mean Corpuscular Hemoglobin Concent 32.2, Red Cell Distribution Width 18.8H, Platelet Count 122L, Mean Platelet Volume 6.1L, Neutrophils (%) (Auto) 75.5H, Lymphocytes (%) (Auto) 15.8L, Monocytes (%) (Auto) 5.8, Eosinophils (%) (Auto) 1.7, Basophils (%) (Auto) 1.1, Sodium Level 141, Potassium Level 4.2, Chloride Level 97L, Carbon Dioxide Level 31, Anion Gap 13, Blood Urea Nitrogen 72H, Creatinine 10.3H, Estimat Glomerular Filtration Rate 5.1, Glucose Level 90, Calcium Level 8.1L, Phosphorus Level 9.8H, Magnesium Level 2.5H, Total Bilirubin 0.8, Aspartate Amino Transf (AST/SGOT) 13L, Alanine Aminotransferase ( ALT/SGPT) 6L, Alkaline Phosphatase 430H, Total Protein 7.1, Albumin 2.5L, Globulin 4.6, Albumin/Globulin Ratio 0.5L Height (Feet): 5 Height (Inches): 7.00 Weight (Pounds): 129 General Appearance: no apparent distress EENT: TMs normal Neck: supple Cardiovascular: regular rhythm Respiratory/Chest: lungs clear Abdomen: soft Extremities: non-tender Edema: 1+ Leg (L), 1+ Leg (R) Edema: mild edema Neurologic: alert Skin: warm/dry Tristen Lewis MD March 11, 2018 08:30
[2018-03-11] MEDS ORDERED: Acetaminophen 500mg (ES) tab ORAL PRN ×2 (09:00)
--- NOTE | 2018-03-11 09:15 | General Progress Note ---
Assessment/Plan Assessment/Plan (1) Right hip pain (2) Right hip Fracture (3) S/p ORIF of right hip Pt will be continued on Percocet HOLD OPIOIDS FOR OVERSEDATION OR SBP<90 OR DBP<60 OR O2SAT<92% OR RR<12 D/w Dr. Childers he concurred. Subjective Date patient seen: March 11, 2018 Time patient seen: 07:45 - am Allergies: Coded Allergies: No Known Allergies (Unverified , 02/02/18) Subjective Constitutional: Reports: weakness HEENT: Reports: no symptoms Cardiovascular: Reports: no symptoms Respiratory: Reports: shortness of breath Gastrointestinal/Abdominal: Reports: no symptoms Genitourinary: Reports: no symptoms Neurologic/Psychiatric: Reports: weakness Endocrine: Reports: no symptoms Hematologic/Lymphatic: Reports: no symptoms Subjective Patient laying in bed continues to c/o pain which reaches a 8/10 and is reduced to a 3/10 on the Percocet. He has no new complaints at this time. Objective Last 24 Hour Vital Signs Date Time Temp Pulse Resp B/P (MAP) Pulse Ox O2 Delivery O2 Flow Rate FiO2 03/11/18 08:59 Nasal Cannula 2.0 28 03/11/18 08:59 64 18 Nasal Cannula 2.0 03/11/18 08:59 93 Nasal Cannula 2.0 28 03/11/18 04:00 96.4 69 19 118/69 97 96.4 03/11/18 04:00 63 03/11/18 00:00 97.0 65 18 109/57 97 97.0 03/11/18 00:00 63 03/10/18 20:00 71 03/10/18 20:00 97.7 70 22 125/68 94 97.7 03/10/18 19:07 97 Nasal Cannula 2.0 28 03/10/18 19:07 Nasal Cannula 2.0 28 03/10/18 19:07 88 18 Nasal Cannula 2.0 28 03/10/18 16:00 97.7 81 20 121/59 98 97.7 03/10/18 12:00 98.2 71 20 123/57 99 98.2 03/10/18 09:23 Nasal Cannula 2.0 28 03/10/18 09:23 98 Nasal Cannula 2.0 28 03/10/18 09:23 93 20 Nasal Cannula 2.0 28 Intake and Output 03/10/18 03/11/18 19:00 07:00 Intake Total 625 ml Balance 625 ml Intake Oral 515 ml IV Total 110 ml # Voids 2 Laboratory Tests 03/11/18 06:25: White Blood Count 5.3, Red Blood Count 2.83L, Hemoglobin 8.6L, Hematocrit 26.7L , Mean Corpuscular Volume 94, Mean Corpuscular Hemoglobin 30.3, Mean Corpuscular Hemoglobin Concent 32.2, Red Cell Distribution Width 18.8H, Platelet Count 122L, Mean Platelet Volume 6.1L, Neutrophils (%) (Auto) 75.5H, Lymphocytes (%) (Auto) 15.8L, Monocytes (%) (Auto) 5.8, Eosinophils (%) (Auto) 1.7, Basophils (%) (Auto) 1.1, Sodium Level 141, Potassium Level 4.2, Chloride Level 97L, Carbon Dioxide Level 31, Anion Gap 13, Blood Urea Nitrogen 72H, Creatinine 10.3H, Estimat Glomerular Filtration Rate 5.1, Glucose Level 90, Calcium Level 8.1L, Phosphorus Level 9.8H, Magnesium Level 2.5H, Total Bilirubin 0.8, Aspartate Amino Transf (AST/SGOT) 13L, Alanine Aminotransferase ( ALT/SGPT) 6L, Alkaline Phosphatase 430H, Total Protein 7.1, Albumin 2.5L, Globulin 4.6, Albumin/Globulin Ratio 0.5L Height (Feet): 5 Height (Inches): 7.00 Weight (Pounds): 129 Objective Neck: non-tender, normal alignment, supple, normal inspection Respiratory/Chest: decreased breath sounds Cardiovascular/Chest: normal rate, regular rhythm Abdomen: non tender, soft, no organomegaly Extremities: inflammation - right hip tenderness to palpation Skin Exam: normal pigmentation, warm/dry KANWAL CURRAN March 11, 2018 09:15
[2018-03-11] MEDS: NS IVPB SCH ×2 (09:55→23:44)
[2018-03-11] MEDS: CEFTAROLINE IVPB SCH ×2 (09:55→23:44)
--- NOTE | 2018-03-11 11:12 | Pulmonology Progress Note ---
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 now HD by tow operator respiratory treatment titrate fio2 to sat of 92% check Hemoglobin, remains around 7 all meds reviewed Subjective ROS Limited/Unobtainable: No Constitutional: Reports: no symptoms HEENT: Repors: no symptoms Respiratory: Reports: no symptoms Allergies: Coded Allergies: No Known Allergies (Unverified , 02/02/18) Objective Last 24 Hour Vital Signs Date Time Temp Pulse Resp B/P (MAP) Pulse Ox O2 Delivery O2 Flow Rate FiO2 03/11/18 08:59 Nasal Cannula 2.0 03/11/18 08:59 64 18 Nasal Cannula 2.0 03/11/18 08:59 93 Nasal Cannula 2.0 28 03/11/18 08:00 97.2 67 18 135/66 94 97.2 03/11/18 04:00 96.4 69 19 118/69 97 96.4 03/11/18 04:00 63 03/11/18 00:00 97.0 65 18 109/57 97 97.0 03/11/18 00:00 63 03/10/18 20:00 71 03/10/18 20:00 97.7 70 22 125/68 94 97.7 03/10/18 19:07 97 Nasal Cannula 2.0 28 03/10/18 19:07 Nasal Cannula 2.0 28 03/10/18 19:07 88 18 Nasal Cannula 2.0 03/10/18 16:00 97.7 81 20 121/59 98 97.7 03/10/18 12:00 98.2 71 20 123/57 99 98.2 Intake and Output 03/10/18 03/11/18 19:00 07:00 Intake Total 625 ml Balance 625 ml Intake Oral 515 ml IV Total 110 ml # Voids 2 Objective General Appearance: WD/WN HEENT: normocephalic, atraumatic Respiratory/Chest: chest wall non-tender, lungs clear Cardiovascular: normal peripheral pulses, normal rate, regular rhythm Abdomen: normal bowel sounds, soft, non tender, no organomegaly, non distended Extremities: no cyanosis, no clubbing, no edema Skin: no rash, no lesions Neurologic/Psychiatric: atm mechanic II-XII grossly normal Microbiology Date/Time Source Procedure Growth Status 03/09/18 04:30 Blood Blood Culture - Preliminary NO GROWTH AFTER 48 HOURS Resulted 03/09/18 04:15 Blood Blood Culture - Preliminary NO GROWTH AFTER 48 HOURS Resulted 03/09/18 08:30 Sputum Gram Stain - Final Complete 03/09/18 08:30 Sputum Sputum Culture - Final NORMAL UPPER RESPIRATORY LUIS PRESENT Complete 03/08/18 14:28 Arm Right Gram Stain - Final Resulted 03/08/18 14:28 Surgical Biopsy Culture - Preliminary Staphylococcus Aureus Resulted 03/08/18 14:28 Arm Right Gram Stain - Final Resulted 03/08/18 14:28 Aerobic Culture - Final Staphylococcus Aureus - Mrsa Resulted 03/08/18 14:28 Arm Right Anaerobic Culture - Preliminary NO GROWTH Resulted Laboratory Tests 03/11/18 06:25: White Blood Count 5.3, Red Blood Count 2.83L, Hemoglobin 8.6L, Hematocrit 26.7L , Mean Corpuscular Volume 94, Mean Corpuscular Hemoglobin 30.3, Mean Corpuscular Hemoglobin Concent 32.2, Red Cell Distribution Width 18.8H, Platelet Count 122L, Mean Platelet Volume 6.1L, Neutrophils (%) (Auto) 75.5H, Lymphocytes (%) (Auto) 15.8L, Monocytes (%) (Auto) 5.8, Eosinophils (%) (Auto) 1.7, Basophils (%) (Auto) 1.1, Sodium Level 141, Potassium Level 4.2, Chloride Level 97L, Carbon Dioxide Level 31, Anion Gap 13, Blood Urea Nitrogen 72H, Creatinine 10.3H, Estimat Glomerular Filtration Rate 5.1, Glucose Level 90, Calcium Level 8.1L, Phosphorus Level 9.8H, Magnesium Level 2.5H, Total Bilirubin 0.8, Aspartate Amino Transf (AST/SGOT) 13L, Alanine Aminotransferase ( ALT/SGPT) 6L, Alkaline Phosphatase 430H, Total Protein 7.1, Albumin 2.5L, Globulin 4.6, Albumin/Globulin Ratio 0.5L Current Medications Medications (Trade) Dose Ordered Sig/Blessing Route PRN Reason Start Time Stop Time Status Last Admin Dose Admin Acetaminophen (Tylenol) 500 mg 3XW PRN ORAL WITH DIALYSIS 03/09/18 19:24 04/08/18 19:23 Acetaminophen (Tylenol) 650 mg Q4H PRN RECTAL Mild Pain/Temp > 100.5 03/09/18 19:24 04/07/18 19:23 Acetaminophen (Tylenol) 650 mg Q6H PRN ORAL Mild Pain/Temp > 100.5 03/09/18 19:24 04/08/18 19:23 03/10/18 14:31 Calcium Acetate (Phoslo) 1,334 mg TIAC ORAL 03/10/18 11:30 04/09/18 11:29 03/11/18 06:01 Ceftaroline Fosamil 200 mg/ Sodium Chloride 110 ml @ 110 mls/hr Q12H IVPB 03/09/18 21:30 03/16/18 23:59 03/11/18 09:55 Chlorhexidine Gluconate (Miriam-Hex 2%) 1 applic DAILY@2000 TOPIC 03/09/18 20:00 04/07/18 20:59 03/10/18 22:53 Clonidine HCl (Catapres Tab) 0.1 mg Q4H PRN ORAL FOR SBP > 160. 03/09/18 19:24 04/07/18 19:23 Daptomycin 450 mg/ Sodium Chloride 110 ml @ 200 mls/hr Q48H IV 03/09/18 20:00 03/14/18 23:59 03/09/18 21:51 Diphenhydramine HCl (Benadryl) 50 mg Q6H PRN ORAL Itching 03/09/18 19:24 04/08/18 19:23 Docusate Sodium (Colace) 100 mg THREE TIMES A DAY ORAL 03/10/18 13:00 04/09/18 12:59 03/11/18 08:21 Epoetin Alfonzo (Procrit (for ESRD on dialysis)) 10,000 units SUN-SUN-SUN SUBQ 03/11/18 21:00 03/27/18 20:59 Haloperidol Lactate (Haldol) 5 mg Q4H PRN IM AGITATION 03/09/18 19:24 03/25/18 19:23 03/09/18 21:50 Lansoprazole (Prevacid) 30 mg DAILY@0730 ORAL 03/10/18 07:30 03/31/18 07:29 03/11/18 08:21 Oxycodone/ Acetaminophen (Percocet 10/325) 1 tab Q4H PRN ORAL Severe Pain (Pain Scale 7-10) 03/09/18 19:25 03/15/18 19:24 03/11/18 08:26 Prochlorperazine (Compazine) 10 mg Q6H PRN IVP Nausea & Vomiting 03/09/18 19:25 03/25/18 19:24 Quetiapine Fumarate (SEROquel) 25 mg QHS ORAL 03/09/18 22:00 03/25/18 21:59 03/10/18 22:55 Sevelamer Carbonate (Renvela) 2,400 mg QID ORAL 03/10/18 13:00 04/01/18 07:29 03/11/18 08:21 Clement Mcleod MD March 11, 2018 11:12
--- NOTE | 2018-03-11 12:12 | General Progress Note ---
Assessment/Plan Problem List: (1) ESRD (end stage renal disease) on dialysis ICD Codes: N18.6 - End stage renal disease; Z99.2 - Dependence on renal dialysis SNOMED: 770944175 (2) Abnormal laboratory test result ICD Codes: R89.9 - Unspecified abnormal finding in specimens from other organs , systems and tissues SNOMED: 429140216 (3) Hypertension, uncontrolled ICD Codes: I10 - Essential (primary) hypertension SNOMED: 75567691, 45048334 (4) Anemia in chronic kidney disease (CKD) ICD Codes: N18.9 - Chronic kidney disease, unspecified; D63.1 - Anemia in chronic kidney disease SNOMED: 959110109, 533763848 (5) Hepatitis C ICD Codes: B19.20 - Unspecified viral hepatitis C without hepatic coma SNOMED: 82418629 (6) Sepsis ICD Codes: A41.9 - Sepsis, unspecified organism SNOMED: 84225888 Status: progressing Assessment/Plan bp is improving check h/h no actue events gi bleed moniter for bleeding esrd htn reviewed chart and labs Subjective ROS Limited/Unobtainable: Yes Allergies: Coded Allergies: No Known Allergies (Unverified , 02/02/18) Objective Last 24 Hour Vital Signs Date Time Temp Pulse Resp B/P (MAP) Pulse Ox O2 Delivery O2 Flow Rate FiO2 03/11/18 08:59 Nasal Cannula 2.0 28 03/11/18 08:59 64 18 Nasal Cannula 2.0 28 03/11/18 08:59 93 Nasal Cannula 2.0 28 03/11/18 08:00 97.2 67 18 135/66 94 97.2 03/11/18 04:00 96.4 69 19 118/69 97 96.4 03/11/18 04:00 63 03/11/18 00:00 97.0 65 18 109/57 97 97.0 03/11/18 00:00 63 03/10/18 20:00 71 03/10/18 20:00 97.7 70 22 125/68 94 97.7 03/10/18 19:07 97 Nasal Cannula 2.0 28 03/10/18 19:07 Nasal Cannula 2.0 28 03/10/18 19:07 88 18 Nasal Cannula 2.0 28 03/10/18 16:00 97.7 81 20 121/59 98 97.7 Intake and Output 03/10/18 03/11/18 19:00 07:00 Intake Total 625 ml Balance 625 ml Intake Oral 515 ml IV Total 110 ml # Voids 2 Laboratory Tests 03/11/18 06:25: White Blood Count 5.3, Red Blood Count 2.83L, Hemoglobin 8.6L, Hematocrit 26.7L , Mean Corpuscular Volume 94, Mean Corpuscular Hemoglobin 30.3, Mean Corpuscular Hemoglobin Concent 32.2, Red Cell Distribution Width 18.8H, Platelet Count 122L, Mean Platelet Volume 6.1L, Neutrophils (%) (Auto) 75.5H, Lymphocytes (%) (Auto) 15.8L, Monocytes (%) (Auto) 5.8, Eosinophils (%) (Auto) 1.7, Basophils (%) (Auto) 1.1, Sodium Level 141, Potassium Level 4.2, Chloride Level 97L, Carbon Dioxide Level 31, Anion Gap 13, Blood Urea Nitrogen 72H, Creatinine 10.3H, Estimat Glomerular Filtration Rate 5.1, Glucose Level 90, Calcium Level 8.1L, Phosphorus Level 9.8H, Magnesium Level 2.5H, Total Bilirubin 0.8, Aspartate Amino Transf (AST/SGOT) 13L, Alanine Aminotransferase ( ALT/SGPT) 6L, Alkaline Phosphatase 430H, Total Protein 7.1, Albumin 2.5L, Globulin 4.6, Albumin/Globulin Ratio 0.5L Height (Feet): 5 Height (Inches): 7.00 Weight (Pounds): 129 Cardiovascular: normal rate Respiratory/Chest: lungs clear Luke Pearson MD March 11, 2018 12:12
--- NOTE | 2018-03-11 12:38 | Cardiology Progress Note ---
Assessment/Plan Problem List: (1) ESRD (end stage renal disease) on dialysis (2) Hypertension, uncontrolled (3) Anemia in chronic kidney disease (CKD) (4) Bacteremia Status: stable, progressing Status Narrative Transferred from ICU to telemetry ESRD, on chronic dialysis Bacteremia/ sepsis s/p removal of AV graft, re-placement on 03/08 for infected graft and persistent bacteremia. Negative AMAURI for thrombus, vegetation Assessment/Plan Continue iv antibiotics per ID. followup blood cultures clinically improving Repeat blood cx from 03/09 are negative so far. Hemodialysis today w/ 2L fluid removal if BP tolerates. Increase activity/ phys therapy. Subjective ROS Limited/Unobtainable: No Subjective Cardiology for Dr. Becker Pt undergoing hemodialysis this pm. Objective Last 24 Hour Vital Signs Date Time Temp Pulse Resp B/P (MAP) Pulse Ox O2 Delivery O2 Flow Rate FiO2 03/11/18 08:59 Nasal Cannula 2.0 28 03/11/18 08:59 64 18 Nasal Cannula 2.0 28 03/11/18 08:59 93 Nasal Cannula 2.0 28 03/11/18 08:00 97.2 67 18 135/66 94 97.2 03/11/18 04:00 96.4 69 19 118/69 97 96.4 03/11/18 04:00 63 03/11/18 00:00 97.0 65 18 109/57 97 97.0 03/11/18 00:00 63 03/10/18 20:00 71 03/10/18 20:00 97.7 70 22 125/68 94 97.7 03/10/18 19:07 97 Nasal Cannula 2.0 28 03/10/18 19:07 Nasal Cannula 2.0 28 03/10/18 19:07 88 18 Nasal Cannula 2.0 28 03/10/18 16:00 97.7 81 20 121/59 98 97.7 General Appearance: WD/WN, no apparent distress, alert EENT: PERRL/EOMI Neck: supple, no JVD Rhythm: NSR Cardiovascular: normal rate, regular rhythm, no gallop/murmur Respiratory/Chest: lungs clear, respiratory distress - clear anteriorly, other - clear anteriorly. L chest HD access Abdomen: non tender, soft Extremities: no swelling Intake and Output 03/10/18 03/11/18 19:00 07:00 Intake Total 625 ml Balance 625 ml Intake Oral 515 ml IV Total 110 ml # Voids 2 Laboratory Tests Test 03/11/18 06:25 White Blood Count 5.3 K/UL (4.8-10.8) Red Blood Count 2.83 M/UL (4.70-6.10) L Hemoglobin 8.6 G/DL (14.2-18.0) L Hematocrit 26.7 % (42.0-52.0) L Mean Corpuscular Volume 94 FL (80-99) Mean Corpuscular Hemoglobin 30.3 PG (27.0-31.0) Mean Corpuscular Hemoglobin Concent 32.2 G/DL (32.0-36.0) Red Cell Distribution Width 18.8 % (11.6-14.8) H Platelet Count 122 K/UL (150-450) L Mean Platelet Volume 6.1 FL (6.5-10.1) L Neutrophils (%) (Auto) 75.5 % (45.0-75.0) H Lymphocytes (%) (Auto) 15.8 % (20.0-45.0) L Monocytes (%) (Auto) 5.8 % (1.0-10.0) Eosinophils (%) (Auto) 1.7 % (0.0-3.0) Basophils (%) (Auto) 1.1 % (0.0-2.0) Sodium Level 141 MMOL/L (136-145) Potassium Level 4.2 MMOL/L (3.5-5.1) Chloride Level 97 MMOL/L (98-107) L Carbon Dioxide Level 31 MMOL/L (21-32) Anion Gap 13 mmol/L (5-15) Blood Urea Nitrogen 72 mg/dL (7-18) H Creatinine 10.3 MG/DL (0.55-1.30) H Estimat Glomerular Filtration Rate 5.1 mL/min (>60) Glucose Level 90 MG/DL (74-106) Calcium Level 8.1 MG/DL (8.5-10.1) L Phosphorus Level 9.8 MG/DL (2.5-4.9) H Magnesium Level 2.5 MG/DL (1.8-2.4) H Total Bilirubin 0.8 MG/DL (0.2-1.0) Aspartate Amino Transf (AST/SGOT) 13 U/L (15-37) L Alanine Aminotransferase (ALT/SGPT) 6 U/L (12-78) L Alkaline Phosphatase 430 U/L (46-116) H Total Protein 7.1 G/DL (6.4-8.2) Albumin 2.5 G/DL (3.4-5.0) L Globulin 4.6 g/dL Albumin/Globulin Ratio 0.5 (1.0-2.7) L Microbiology Date/Time Source Procedure Growth Status 03/09/18 04:30 Blood Blood Culture - Preliminary NO GROWTH AFTER 48 HOURS Resulted 03/09/18 04:15 Blood Blood Culture - Preliminary NO GROWTH AFTER 48 HOURS Resulted 03/09/18 08:30 Sputum Gram Stain - Final Complete 03/09/18 08:30 Sputum Sputum Culture - Final NORMAL UPPER RESPIRATORY LUIS PRESENT Complete 03/08/18 14:28 Arm Right Gram Stain - Final Resulted 03/08/18 14:28 Surgical Biopsy Culture - Preliminary Staphylococcus Aureus Resulted 03/08/18 14:28 Arm Right Gram Stain - Final Resulted 03/08/18 14:28 Aerobic Culture - Final Staphylococcus Aureus - Mrsa Resulted 03/08/18 14:28 Arm Right Anaerobic Culture - Preliminary NO GROWTH Resulted Pauline Kang MD March 11, 2018 12:38
--- NOTE | 2018-03-11 14:54 | Nephrology Progress Note ---
Assessment/Plan Problem List: (1) ESRD (end stage renal disease) on dialysis (2) Acute hyperkalemia (3) Hypertension, uncontrolled (4) Left leg DVT (5) Anemia in chronic kidney disease (CKD) Assessment on HD now - tolerating well. Post removal of infected fistula infected right arm fistula BP stable stop mind altering meds ESRD, on admission missed dialysis . has high K on admission has fistula right arm Sever Anemia h/o Amyloidosis COPD Plan increase phos binders removal of fistula,03/08 placement of permacath HD as needed done 03/08 next 03/11 stop BP meds- on PRN clonidine only Transfusion as needed Kayexelate as needed BP control, meds adjusted has IVC filter add phos binders Subjective ROS Limited/Unobtainable: No Constitutional: Reports: malaise Objective Objective Last 24 Hour Vital Signs Date Time Temp Pulse Resp B/P (MAP) Pulse Ox O2 Delivery O2 Flow Rate FiO2 03/11/18 12:00 71 03/11/18 12:00 97.2 67 15 104/58 97 Nasal Cannula 2.0 97.2 03/11/18 10:00 97.2 63 16 139/72 Nasal Cannula 2.0 97.2 03/11/18 08:59 Nasal Cannula 2.0 28 03/11/18 08:59 64 18 Nasal Cannula 2.0 28 03/11/18 08:59 93 Nasal Cannula 2.0 28 03/11/18 08:00 70 03/11/18 08:00 97.2 67 18 135/66 94 97.2 03/11/18 04:00 96.4 69 19 118/69 97 96.4 03/11/18 04:00 63 03/11/18 00:00 97.0 65 18 109/57 97 97.0 03/11/18 00:00 63 03/10/18 20:00 71 03/10/18 20:00 97.7 70 22 125/68 94 97.7 03/10/18 19:07 97 Nasal Cannula 2.0 28 03/10/18 19:07 Nasal Cannula 2.0 28 03/10/18 19:07 88 18 Nasal Cannula 2.0 28 03/10/18 16:00 97.7 81 20 121/59 98 97.7 Intake and Output 03/10/18 03/11/18 19:00 07:00 Intake Total 625 ml Balance 625 ml Intake Oral 515 ml IV Total 110 ml # Voids 2 Laboratory Tests 03/11/18 06:25: White Blood Count 5.3, Red Blood Count 2.83L, Hemoglobin 8.6L, Hematocrit 26.7L , Mean Corpuscular Volume 94, Mean Corpuscular Hemoglobin 30.3, Mean Corpuscular Hemoglobin Concent 32.2, Red Cell Distribution Width 18.8H, Platelet Count 122L, Mean Platelet Volume 6.1L, Neutrophils (%) (Auto) 75.5H, Lymphocytes (%) (Auto) 15.8L, Monocytes (%) (Auto) 5.8, Eosinophils (%) (Auto) 1.7, Basophils (%) (Auto) 1.1, Sodium Level 141, Potassium Level 4.2, Chloride Level 97L, Carbon Dioxide Level 31, Anion Gap 13, Blood Urea Nitrogen 72H, Creatinine 10.3H, Estimat Glomerular Filtration Rate 5.1, Glucose Level 90, Calcium Level 8.1L, Phosphorus Level 9.8H, Magnesium Level 2.5H, Total Bilirubin 0.8, Aspartate Amino Transf (AST/SGOT) 13L, Alanine Aminotransferase ( ALT/SGPT) 6L, Alkaline Phosphatase 430H, Total Protein 7.1, Albumin 2.5L, Globulin 4.6, Albumin/Globulin Ratio 0.5L Height (Feet): 5 Height (Inches): 7.00 Weight (Pounds): 129 General Appearance: no apparent distress Objective no change DALTON ROSENTHAL March 11, 2018 14:54
--- NOTE | 2018-03-11 16:53 | Infectious Diseases Prog Note ---
Assessment/Plan Assessment/Plan ASSESSMENT: The patient is a 63-year-old male with, Fever, SP Persistent Bacteremia MRSA ( + on 02/22,, 18, 20, 23; 03/09 NTD )- 2ry to R AVF infection -s/p Complete removal of right arm av graft, I&D right arm wound, Right proximal brachial artery to distal right brachial artery bypass (with reversed right basilic vein, Left IJ dialysis catheter with pigtail 03/08 - OR findings: no vegetation noted, significant pus drained around blistered AV graft -OR cx : S. aureus -WBC scan: Small focus of uptake within the lower part of the right upper arm consistent with infection. Findings may represent cellulitis, phlegmon or abscess. Correlate clinically. The patient has an arteriovenous fistula in this location. -wound cx R arm (from AVF fistula)- MRSA -AMAURI- prelim report per cards- no vegetations -CT R ext w/: Limited exam due to motion. No fluid collection or other finding to suggest abscess. No findings to explain abnormality demonstrated on recent indium white cell scan. Patient right upper extremity brachiobasilic AV dialysis graft. Note some non flow-limiting mural thickening or thrombus is present -CT chest abd/p w/ 03/02: Bibasilar lung atelectasis and airspace opacities, worse in the right lower lobe, worrisome for pneumonia. Tiny bilateral pleural effusions. Numerous small to borderline mediastinal and bilateral axillary lymph nodes. Prominent subcarinal lymph node. Emphysema. Mild superior endplate compression deformities T4, T5, T6, T8, T10, T11, are age- indeterminate. Age-indeterminate vertical fracture through the mid L2 vertebral body with anterior wedge compression. 02/26 2DEcho limited , av and mv thickening but no Veg Leukocytosis ,resolved 02/06/ CT of chest [id number] : no evidence of pulmonary emboli, diffuse septal thickening, and bilateral ground glass opacities, and small bilateral pleural effusion. Neg : HIV , Hep panel gastrointestinal bleed : had endoscopy but location unknown 02/25 SP Lt IJ, s/p removal 03/06 ,c ath tip NTD Anemia. End-stage renal disease, on hemodialysis. Left leg DVT. Right hip fracture, status post ORIF. History of hepatitis C Splenomegaly. Status post IVC filter placement PLAN: -Continue IV Daptomycin 8mg/kg q 48hr and Ceftaroline ( AB Rx d# 15) due to persistent bacteremia; will need 6 weeks from 1st neg BCx on 03/09 - monitor CPK -upon discharge, regimen can be simplify to IV Vancomcyin with HD on HD days SP 03/04 IV Vancomycin #8 SP 02/26 Zyvox d# 1 ( pt now has IV Access ) -f/u Bcx x2 and repeat Bcx until clearance of bacteremia Monitor CBC. Monitor BMP. Monitor blood cultures Monitor chest x-ray. Monitor vital signs wound care care was dw RN Subjective Allergies: Coded Allergies: No Known Allergies (Unverified , 02/02/18) Subjective afebrile no leukocytosis Bcx 03/09 NTD sp cx normal marj Objective Vital Signs Last 24 Hour Vital Signs Date Time Temp Pulse Resp B/P (MAP) Pulse Ox O2 Delivery O2 Flow Rate FiO2 03/11/18 14:00 Nasal Cannula 3.0 03/11/18 14:00 97.6 71 20 120/68 Nasal Cannula 3.0 97.6 03/11/18 12:00 71 03/11/18 12:00 97.2 67 15 104/58 97 Nasal Cannula 2.0 97.2 03/11/18 10:00 97.2 63 16 139/72 Nasal Cannula 2.0 97.2 03/11/18 10:00 Nasal Cannula 2.0 03/11/18 08:59 Nasal Cannula 2.0 28 03/11/18 08:59 64 18 Nasal Cannula 2.0 28 03/11/18 08:59 93 Nasal Cannula 2.0 28 03/11/18 08:00 70 03/11/18 08:00 97.2 67 18 135/66 94 97.2 03/11/18 04:00 96.4 69 19 118/69 97 96.4 03/11/18 04:00 63 03/11/18 00:00 97.0 65 18 109/57 97 97.0 03/11/18 00:00 63 03/10/18 20:00 71 03/10/18 20:00 97.7 70 22 125/68 94 97.7 03/10/18 19:07 97 Nasal Cannula 2.0 28 03/10/18 19:07 Nasal Cannula 2.0 28 03/10/18 19:07 88 18 Nasal Cannula 2.0 28 Height (Feet): 5 Height (Inches): 7.00 Weight (Pounds): 129 Objective General Appearance: no acute distress HEENT: normocephalic, atraumatic, anicteric Respiratory/Chest: chest wall non-tender, normal breath sounds, no respiratory distressp; temp HD cath Cardiovascular: normal peripheral pulses, normal rate, RUE bandage in place Abdomen: normal bowel sounds, soft, non tender Extremities: multiple tattoos BUE Neurologic/Psychiatric: awake, responsive Musculoskeletal: normal muscle bulk Microbiology Date/Time Source Procedure Growth Status 03/09/18 04:30 Blood Blood Culture - Preliminary NO GROWTH AFTER 48 HOURS Resulted 03/09/18 04:15 Blood Blood Culture - Preliminary NO GROWTH AFTER 48 HOURS Resulted 03/09/18 08:30 Sputum Gram Stain - Final Complete 03/09/18 08:30 Sputum Sputum Culture - Final NORMAL UPPER RESPIRATORY MARJ PRESENT Complete Laboratory Tests Test 03/11/18 06:25 White Blood Count 5.3 K/UL (4.8-10.8) Red Blood Count 2.83 M/UL (4.70-6.10) L Hemoglobin 8.6 G/DL (14.2-18.0) L Hematocrit 26.7 % (42.0-52.0) L Mean Corpuscular Volume 94 FL (80-99) Mean Corpuscular Hemoglobin 30.3 PG (27.0-31.0) Mean Corpuscular Hemoglobin Concent 32.2 G/DL (32.0-36.0) Red Cell Distribution Width 18.8 % (11.6-14.8) H Platelet Count 122 K/UL (150-450) L Mean Platelet Volume 6.1 FL (6.5-10.1) L Neutrophils (%) (Auto) 75.5 % (45.0-75.0) H Lymphocytes (%) (Auto) 15.8 % (20.0-45.0) L Monocytes (%) (Auto) 5.8 % (1.0-10.0) Eosinophils (%) (Auto) 1.7 % (0.0-3.0) Basophils (%) (Auto) 1.1 % (0.0-2.0) Sodium Level 141 MMOL/L (136-145) Potassium Level 4.2 MMOL/L (3.5-5.1) Chloride Level 97 MMOL/L (98-107) L Carbon Dioxide Level 31 MMOL/L (21-32) Anion Gap 13 mmol/L (5-15) Blood Urea Nitrogen 72 mg/dL (7-18) H Creatinine 10.3 MG/DL (0.55-1.30) H Estimat Glomerular Filtration Rate 5.1 mL/min (>60) Glucose Level 90 MG/DL (74-106) Calcium Level 8.1 MG/DL (8.5-10.1) L Phosphorus Level 9.8 MG/DL (2.5-4.9) H Magnesium Level 2.5 MG/DL (1.8-2.4) H Total Bilirubin 0.8 MG/DL (0.2-1.0) Aspartate Amino Transf (AST/SGOT) 13 U/L (15-37) L Alanine Aminotransferase (ALT/SGPT) 6 U/L (12-78) L Alkaline Phosphatase 430 U/L (46-116) H Total Protein 7.1 G/DL (6.4-8.2) Albumin 2.5 G/DL (3.4-5.0) L Globulin 4.6 g/dL Albumin/Globulin Ratio 0.5 (1.0-2.7) L Current Medications Medications (Trade) Dose Ordered Sig/Blessing Route PRN Reason Start Time Stop Time Status Last Admin Dose Admin Acetaminophen (Tylenol) 500 mg 3XW PRN ORAL WITH DIALYSIS 03/09/18 19:24 04/08/18 19:23 Acetaminophen (Tylenol) 650 mg Q4H PRN RECTAL Mild Pain/Temp > 100.5 03/09/18 19:24 04/07/18 19:23 Acetaminophen (Tylenol) 650 mg Q6H PRN ORAL Mild Pain/Temp > 100.5 03/09/18 19:24 04/08/18 19:23 03/10/18 14:31 Calcium Acetate (Phoslo) 1,334 mg TIAC ORAL 03/10/18 11:30 04/09/18 11:29 03/11/18 12:31 Ceftaroline Fosamil 200 mg/ Sodium Chloride 110 ml @ 110 mls/hr Q12H IVPB 03/09/18 21:30 03/16/18 23:59 03/11/18 09:55 Chlorhexidine Gluconate (Miriam-Hex 2%) 1 applic DAILY@2000 TOPIC 03/09/18 20:00 04/07/18 20:59 03/10/18 22:53 Clonidine HCl (Catapres Tab) 0.1 mg Q4H PRN ORAL FOR SBP > 160. 03/09/18 19:24 04/07/18 19:23 Daptomycin 450 mg/ Sodium Chloride 110 ml @ 200 mls/hr Q48H IV 03/09/18 20:00 03/14/18 23:59 03/09/18 21:51 Diphenhydramine HCl (Benadryl) 50 mg Q6H PRN ORAL Itching 03/09/18 19:24 04/08/18 19:23 Docusate Sodium (Colace) 100 mg THREE TIMES A DAY ORAL 03/10/18 13:00 04/09/18 12:59 03/11/18 12:31 Epoetin Alfonzo (Procrit (for ESRD on dialysis)) 10,000 units SUN-SUN-SUN SUBQ 03/11/18 21:00 03/27/18 20:59 Haloperidol Lactate (Haldol) 5 mg Q4H PRN IM AGITATION 03/09/18 19:24 03/25/18 19:23 03/09/18 21:50 Lansoprazole (Prevacid) 30 mg DAILY@0730 ORAL 03/10/18 07:30 03/31/18 07:29 03/11/18 08:21 Oxycodone/ Acetaminophen (Percocet 10/325) 1 tab Q4H PRN ORAL Severe Pain (Pain Scale 7-10) 03/09/18 19:25 03/15/18 19:24 03/11/18 12:32 Prochlorperazine (Compazine) 10 mg Q6H PRN IVP Nausea & Vomiting 03/09/18 19:25 03/25/18 19:24 Quetiapine Fumarate (SEROquel) 25 mg QHS ORAL 03/09/18 22:00 03/25/18 21:59 03/10/18 22:55 Sevelamer Carbonate (Renvela) 2,400 mg QID ORAL 03/10/18 13:00 04/01/18 07:29 03/11/18 12:32 Latosha Contreras M.D. March 11, 2018 16:53
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
[2018-03-11] MEDS: Dyna-Hex 2% Top Sol 2oz TOPIC SCH (20:00)
[2018-03-11] MEDS ORDERED: Epogen (for ESRD on dialysis) SUBQ SCH ×3 (21:00)
[2018-03-11] MEDS: DAPTOMYCIN IV SCH (21:04)
[2018-03-11] MEDS: NS IV SCH (21:04)
--- NOTE | 2018-03-11 21:30 | Progress Note ---
DATE: 03/11/2018 SUBJECTIVE: The patient is a 63-year-old male patient with anemia, GI bleeding, presently confused, disorganized. His mood is labile. He has no logical plan for his own self-care. mainly he has altered mental status, worsened by the stress of his medical illness. That is why, his attending has requested daily psychiatric consultation. He has altered mental status, confusion, mood lability. MENTAL STATUS EXAMINATION: This is a 63-year-old male. Appearance is disheveled. Attitude, irritable and agitated. Affect is guarded and restricted. Intellect poor. Mood is depressed, anxious. Motor activity, psychomotor agitation. Attention span is poor. Orientation x2. Speech is pressured. Thought process, disorganized and illogical. Insight and judgment is poor. DIAGNOSIS: Major depression with psychotic features. PLAN: Treat him with Seroquel 25 mg at bedtime. Provided 18-20 minutes of supportive psychotherapy. Chart is reviewed and discussed with staff. He was seen and assessed at bedside. Rony Corral M.D. DR: SCOTTIE JOB#: [id number] CC:
[2018-03-12] VITALS: BP 147/69
[2018-03-12 04:00] VITALS: BP 144/66
[2018-03-12] MEDS: Haloperidol 5mg/ml Inj IM PRN (05:22)
[2018-03-12] MEDS: Calcium Acetate 667mg Tab ORAL SCH ×3 (05:23→16:30)
[2018-03-12 08:00] VITALS: BP 141/60
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
--- NOTE | 2018-03-12 08:15 | Progress Note ---
DATE: 03/12/2018 SUBJECTIVE: The patient is a 63-year-old male patient with anemia and GI bleeding, but he also has altered mental status, confusion, worsened by stress of his medical illness. That is why, his attending has requested daily psychiatric consultation. MENTAL STATUS EXAMINATION: This is a 63-year-old male. Appearance is disheveled. Attitude irritable and agitated. Affect guarded and restricted. Intellect poor. Mood depressed, anxious. Motor activity, psychomotor agitation. Attention span is poor. Orientation x2. Speech is pressured. Thought process, disorganized and illogical. Thought content, auditory hallucinations and paranoid delusions. Insight and judgment is poor. DIAGNOSIS: Major depressive disorder, mild, recurrent with psychotic features. PLAN: Treat him with Seroquel 25 mg at bedtime. Encouraged him to interact appropriately with staff. An 18 to 20 minutes of supportive therapy provided. Chart reviewed and discussed with staff. Rony Corral M.D. DR: PAM JOB#: [id number] CC:
[2018-03-12] MEDS: Docusate 100mg cap ORAL SCH ×3 (08:51→17:49)
--- NOTE | 2018-03-12 08:57 | General Progress Note ---
Assessment/Plan Assessment/Plan (1) Right hip pain (2) Right hip Fracture (3) S/p ORIF of right hip Pt will be continued on Percocet HOLD OPIOIDS FOR OVERSEDATION OR SBP<90 OR DBP<60 OR O2SAT<92% OR RR<12 D/w Dr. Childers he concurred. Subjective Date patient seen: March 12, 2018 Time patient seen: 08:00 - am Allergies: Coded Allergies: No Known Allergies (Unverified , 02/02/18) Subjective Constitutional: Reports: weakness HEENT: Reports: no symptoms Cardiovascular: Reports: no symptoms Respiratory: Reports: shortness of breath Gastrointestinal/Abdominal: Reports: no symptoms Genitourinary: Reports: no symptoms Neurologic/Psychiatric: Reports: weakness Endocrine: Reports: no symptoms Hematologic/Lymphatic: Reports: no symptoms Subjective Patient has been in bed showing no signs of pain or distress. His pain is reduced from a 8/10 to a 4/10 on the Percocet using it as needed. He has no new complaints. Objective Last 24 Hour Vital Signs Date Time Temp Pulse Resp B/P (MAP) Pulse Ox O2 Delivery O2 Flow Rate FiO2 03/12/18 04:00 97.5 72 20 144/66 95 Nasal Cannula 3.0 97.5 03/12/18 00:36 97.6 03/12/18 00:00 97.2 73 20 147/69 94 Nasal Cannula 3.0 97.2 03/11/18 23:37 97.6 03/11/18 20:00 97.6 69 20 141/72 94 Nasal Cannula 3.0 97.6 03/11/18 18:28 97.6 03/11/18 16:00 97.5 66 20 143/77 93 Nasal Cannula 3.0 97.5 03/11/18 16:00 66 03/11/18 14:00 Nasal Cannula 3.0 03/11/18 14:00 97.6 71 20 120/68 Nasal Cannula 3.0 97.6 03/11/18 12:00 71 03/11/18 12:00 97.2 67 15 104/58 97 Nasal Cannula 2.0 97.2 03/11/18 10:00 97.2 63 16 139/72 Nasal Cannula 2.0 97.2 03/11/18 10:00 Nasal Cannula 2.0 03/11/18 08:59 Nasal Cannula 2.0 28 03/11/18 08:59 64 18 Nasal Cannula 2.0 28 03/11/18 08:59 93 Nasal Cannula 2.0 28 Intake and Output 03/11/18 03/12/18 19:00 07:00 Intake Total 500 ml 340 ml Output Total 1680 ml Balance -1180 ml 340 ml Intake Oral 500 ml 120 ml IV Total 220 ml Hemodialysis UF 1680 ml Height (Feet): 5 Height (Inches): 7.00 Weight (Pounds): 134 Objective Neck: non-tender, normal alignment, supple, normal inspection Respiratory/Chest: decreased breath sounds Cardiovascular/Chest: normal rate, regular rhythm Abdomen: non tender, soft, no organomegaly Extremities: inflammation - right hip tenderness to palpation Skin Exam: normal pigmentation, warm/dry KANWAL CURRAN March 12, 2018 08:57
--- NOTE | 2018-03-12 09:15 | Operative Note - Dictated ---
DATE OF OPERATION: 03/08/2018 SURGEON: Jon Neal M.D. ANESTHESIOLOGIST: Best Torres M.D. PREOPERATIVE DIAGNOSES: 1. Infected right arm AV graft with blistered wound. 2. Endstage renal failure requiring access for hemodialysis. 3. History of hepatitis C, COPD, hypertension, and anemia. 4. History of leg pain, deep venous thrombosis and IVC filter. POSTOPERATIVE DIAGNOSES: 1. Infected right arm AV graft with blistered wound. 2. Endstage renal failure requiring access for hemodialysis. 3. History of hepatitis C, COPD, hypertension, and anemia. 4. History of leg pain, deep venous thrombosis and IVC filter. 5. See findings PROCEDURE: 1. Complete removal of right upper arm AV graft. 2. Resection of right brachial artery anastomosis and ligation. 3. Proximal right brachial artery to distal right brachial artery bypass (using a reversed right upper arm basilic vein). 4. Incision and debridement of right upper arm wound down to the muscle. 5. [place] of right basilic vein with dilatation. 6. Placement of the left internal jugular vein temporary dialysis catheter (13-Namibian x 20 cm 3-port Trialysis catheter) with ultrasound sonography and intraoperative fluoroscopy with interpretation and supervision of the above. ANESTHESIA: Local LMA sedation. COMPLICATIONS: None. FLUOROSCOPY TIME: 45 seconds. FINDINGS: The mid AV graft had a blistered wound with active pus drainage under pressure. The entire 100% of the AV graft from the arterial anastomosis to the axillary vein was completely removed. No pieces of graft was left behind. The right brachial artery anastomosis was completely resected and suture ligated proximally and distally. The right axillary vein was repaired with venorrhaphy The basilic vein was suitable which was about 4 to 5 mm size. This was reversed and the proximal to distal right brachial artery anastomosis bypass was performed with completion palpable brachial and radial pulse. Left internal jugular vein was widely patent with good placement of temporary Saravanan catheter. The patient will be dialyzed through the IJ Saravanan catheter until cleared by ID service for a new permanent access. INDICATION FOR PROCEDURE: This is a 63-year-old who presented for above evaluation and procedure. Risks and benefits were discussed with the patient, and consent was obtained. BRIEF HISTORY AND PROCEDURE: The patient was brought to the procedure room. After a dose of antibiotics and sedation by an anesthesiologist, right arm was prepped and draped in usual sterile manner. Incision over the proximal right brachial artery was performed proximal with a right brachial artery double loop control was obtained after a sharp dissection in the right brachial anastomosis is sharply dissected and dissected scar is noted. The AV graft was transected. The patient systemically heparinized. The right brachial artery grafts were completely removed from the arterial anastomosis, excised, and this was sent for culture analysis and pathology. The right upper arm basilic vein, which was suitable for 5 mm size was harvested after ligating the branches between 2-0 and 3-0 silk suture. Then the proximal brachial arteriotomy was made. After proximal anastomosis of proximal brachial artery to the bypass basilic vein graft done and there was excellent pulsatile good flow. Distal End-to-side anastomosis was carried out using a running 7-0 Prolene suture between reverse end of basilic vein and distal brachial artery. Forward and backward flush was given. Anastomosis was completed. Flow was restored with a strongly palpable graft pulse and palpable radial pulse. Right brachial anastomosis and interval brachial artery segment at the arterial anastomosis to the AV graft was completely suture ligated with two layers of 4- 0 Prolene suture.Wounds were irrigated with antibiotic irrigation. Attention was made to right axillary vein which was repaired primarily. Entire AV graft was removed with extensive pus noted in the midsegment of the graft around the blister wound. These were sent to culture analysis where the graft was removed and sent to pathology for permanent sampling. The wounds were irrigated with antibiotic irrigation. The right axillary venorrhaphy was also performed. Wound was closed using a loosely skin stapler and 3-0 nylon suture. Attention was turned to left internal jugular vein under sterile condition and ultrasound guidance. This was accessed via micropuncture technique, a 4-Namibian sheath was placed. Over 3.5 guidewire sequential dilation was carried out and a 13-Namibian x20 centimeter 3-port Trialysis catheter was advanced without difficulty. Wire was removed. The catheter was flushed with heparinized saline solution and secured to the skin using 3-0 nylon suture. Sterile dressing was then applied. The patient tolerated the procedure very well. Jon Neal M.D. DR: CHRISTINA JOB#: [id number] CC: SHAKIRA
[2018-03-12 10:06] LABS: CREATINE KINASE 55 U/L (26-308)
--- NOTE | 2018-03-12 10:30 | Infectious Diseases Prog Note ---
Assessment/Plan Assessment/Plan ASSESSMENT: The patient is a 63-year-old male with, Fever, SP Persistent Bacteremia MRSA ( + on 02/22,, 18, 20, 23; 03/09 NTD )- 2ry to R AVF infection -s/p Complete removal of right arm av graft, I&D right arm wound, Right proximal brachial artery to distal right brachial artery bypass (with reversed right basilic vein, Left IJ dialysis catheter with pigtail 03/08 - OR findings: no vegetation noted, significant pus drained around blistered AV graft -OR cx : MRSA -WBC scan: Small focus of uptake within the lower part of the right upper arm consistent with infection. Findings may represent cellulitis, phlegmon or abscess. Correlate clinically. The patient has an arteriovenous fistula in this location. -wound cx R arm (from AVF fistula)- MRSA -AMAURI- prelim report per cards- no vegetations -CT R ext w/: Limited exam due to motion. No fluid collection or other finding to suggest abscess. No findings to explain abnormality demonstrated on recent indium white cell scan. Patient right upper extremity brachiobasilic AV dialysis graft. Note some non flow-limiting mural thickening or thrombus is present -CT chest abd/p w/ 03/02: Bibasilar lung atelectasis and airspace opacities, worse in the right lower lobe, worrisome for pneumonia. Tiny bilateral pleural effusions. Numerous small to borderline mediastinal and bilateral axillary lymph nodes. Prominent subcarinal lymph node. Emphysema. Mild superior endplate compression deformities T4, T5, T6, T8, T10, T11, are age- indeterminate. Age-indeterminate vertical fracture through the mid L2 vertebral body with anterior wedge compression. 02/26 2DEcho limited , av and mv thickening but no Veg Leukocytosis ,resolved 02/06/ CT of chest [id number] : no evidence of pulmonary emboli, diffuse septal thickening, and bilateral ground glass opacities, and small bilateral pleural effusion. Neg : HIV , Hep panel gastrointestinal bleed : had endoscopy but location unknown 02/25 SP Lt IJ, s/p removal 03/06 ,c ath tip NTD Anemia. End-stage renal disease, on hemodialysis. Left leg DVT. Right hip fracture, status post ORIF. History of hepatitis C Splenomegaly. Status post IVC filter placement PLAN: -Continue IV Daptomycin 8mg/kg q 48hr and Ceftaroline ( AB Rx d# 16) due to persistent bacteremia; will need 6 weeks from 1st neg BCx on 03/09 - monitor CPK -upon discharge, regimen can be simplify to IV Vancomcyin with HD on HD days SP 03/04 IV Vancomycin #8 SP 02/26 Zyvox d# 1 ( pt now has IV Access ) -f/u Bcx x2 and repeat Bcx until clearance of bacteremia -Will await final negative blood cultures prior to permanent HD cath and AVG placement Monitor CBC. Monitor BMP. Monitor blood cultures Monitor chest x-ray. Monitor vital signs wound care care was estela RN and with Dr Neal Subjective Allergies: Coded Allergies: No Known Allergies (Unverified , 02/02/18) Subjective afebrile no leukocytosis Bcx 03/09 NTD sp cx normal marj Objective Vital Signs Last 24 Hour Vital Signs Date Time Temp Pulse Resp B/P (MAP) Pulse Ox O2 Delivery O2 Flow Rate FiO2 03/12/18 08:00 97.1 66 20 141/60 93 Nasal Cannula 3.0 97.1 03/12/18 04:00 97.5 72 20 144/66 95 Nasal Cannula 3.0 97.5 03/12/18 00:36 97.6 03/12/18 00:00 97.2 73 20 147/69 94 Nasal Cannula 3.0 97.2 03/11/18 23:37 97.6 03/11/18 20:00 97.6 69 20 141/72 94 Nasal Cannula 3.0 97.6 03/11/18 18:28 97.6 03/11/18 16:00 97.5 66 20 143/77 93 Nasal Cannula 3.0 97.5 03/11/18 16:00 66 03/11/18 14:00 Nasal Cannula 3.0 03/11/18 14:00 97.6 71 20 120/68 Nasal Cannula 3.0 97.6 03/11/18 12:00 71 03/11/18 12:00 97.2 67 15 104/58 97 Nasal Cannula 2.0 97.2 Height (Feet): 5 Height (Inches): 7.00 Weight (Pounds): 134 Objective General Appearance: no acute distress HEENT: normocephalic, atraumatic, anicteric Respiratory/Chest: chest wall non-tender, normal breath sounds, no respiratory distressp; temp HD cath Cardiovascular: normal peripheral pulses, normal rate, RUE bandage in place Abdomen: normal bowel sounds, soft, non tender Extremities: multiple tattoos BUE Neurologic/Psychiatric: awake, responsive Musculoskeletal: normal muscle bulk Laboratory Tests Test 03/12/18 09:25 Total Creatine Kinase 55 U/L (26-308) Current Medications Medications (Trade) Dose Ordered Sig/Blessing Route PRN Reason Start Time Stop Time Status Last Admin Dose Admin Acetaminophen (Tylenol) 500 mg 3XW PRN ORAL WITH DIALYSIS 03/09/18 19:24 04/08/18 19:23 Acetaminophen (Tylenol) 650 mg Q4H PRN RECTAL Mild Pain/Temp > 100.5 03/09/18 19:24 04/07/18 19:23 Acetaminophen (Tylenol) 650 mg Q6H PRN ORAL Mild Pain/Temp > 100.5 03/09/18 19:24 04/08/18 19:23 03/10/18 14:31 Calcium Acetate (Phoslo) 1,334 mg TIAC ORAL 03/10/18 11:30 04/09/18 11:29 03/12/18 05:23 Ceftaroline Fosamil 200 mg/ Sodium Chloride 110 ml @ 110 mls/hr Q12H IVPB 03/09/18 21:30 03/16/18 23:59 03/11/18 23:44 Chlorhexidine Gluconate (Miriam-Hex 2%) 1 applic DAILY@2000 TOPIC 03/09/18 20:00 04/07/18 20:59 03/11/18 20:00 Clonidine HCl (Catapres Tab) 0.1 mg Q4H PRN ORAL FOR SBP > 160. 03/09/18 19:24 04/07/18 19:23 Daptomycin 450 mg/ Sodium Chloride 110 ml @ 200 mls/hr Q48H IV 03/09/18 20:00 03/14/18 23:59 03/11/18 21:04 Diphenhydramine HCl (Benadryl) 50 mg Q6H PRN ORAL Itching 03/09/18 19:24 04/08/18 19:23 03/11/18 23:35 Docusate Sodium (Colace) 100 mg THREE TIMES A DAY ORAL 03/10/18 13:00 04/09/18 12:59 03/12/18 08:51 Epoetin Alfonzo (Procrit (for ESRD on dialysis)) 10,000 units SUN-SUN-SUN SUBQ 03/11/18 21:00 03/27/18 20:59 03/11/18 21:05 Haloperidol Lactate (Haldol) 5 mg Q4H PRN IM AGITATION 03/09/18 19:24 03/25/18 19:23 03/12/18 05:22 Lansoprazole (Prevacid) 30 mg DAILY@0730 ORAL 03/10/18 07:30 03/31/18 07:29 03/12/18 05:22 Oxycodone/ Acetaminophen (Percocet 10/325) 1 tab Q4H PRN ORAL Severe Pain (Pain Scale 7-10) 03/09/18 19:25 03/15/18 19:24 03/11/18 23:37 Prochlorperazine (Compazine) 10 mg Q6H PRN IVP Nausea & Vomiting 03/09/18 19:25 03/25/18 19:24 03/11/18 21:30 Quetiapine Fumarate (SEROquel) 25 mg QHS ORAL 03/09/18 22:00 03/25/18 21:59 03/11/18 21:05 Sevelamer Carbonate (Renvela) 2,400 mg QID ORAL 03/10/18 13:00 04/01/18 07:29 03/12/18 08:52 Latosha Contreras M.D. March 12, 2018 10:30
--- NOTE | 2018-03-12 10:32 | Nephrology Progress Note ---
Assessment/Plan Problem List: (1) ESRD (end stage renal disease) on dialysis (2) Acute hyperkalemia (3) Hypertension, uncontrolled (4) Left leg DVT (5) Anemia in chronic kidney disease (CKD) Assessment on HD now - tolerating well. Post removal of infected fistula infected right arm fistula BP stable stop mind altering meds ESRD, on admission missed dialysis . has high K on admission has fistula right arm Sever Anemia h/o Amyloidosis COPD Plan increase phos binders removal of fistula,03/08 placement of permacath HD as needed next 03/13 stop BP meds- on PRN clonidine only Transfusion as needed Kayexelate as needed BP control, meds adjusted has IVC filter add phos binders Subjective ROS Limited/Unobtainable: No Constitutional: Reports: malaise Objective Objective Last 24 Hour Vital Signs Date Time Temp Pulse Resp B/P (MAP) Pulse Ox O2 Delivery O2 Flow Rate FiO2 03/12/18 08:00 97.1 66 20 141/60 93 Nasal Cannula 3.0 97.1 03/12/18 04:00 97.5 72 20 144/66 95 Nasal Cannula 3.0 97.5 03/12/18 00:36 97.6 03/12/18 00:00 97.2 73 20 147/69 94 Nasal Cannula 3.0 97.2 03/11/18 23:37 97.6 03/11/18 20:00 97.6 69 20 141/72 94 Nasal Cannula 3.0 97.6 03/11/18 18:28 97.6 03/11/18 16:00 97.5 66 20 143/77 93 Nasal Cannula 3.0 97.5 03/11/18 16:00 66 03/11/18 14:00 Nasal Cannula 3.0 03/11/18 14:00 97.6 71 20 120/68 Nasal Cannula 3.0 97.6 03/11/18 12:00 71 03/11/18 12:00 97.2 67 15 104/58 97 Nasal Cannula 2.0 97.2 Intake and Output 03/11/18 03/12/18 19:00 07:00 Intake Total 500 ml 340 ml Output Total 1680 ml Balance -1180 ml 340 ml Intake Oral 500 ml 120 ml IV Total 220 ml Hemodialysis UF 1680 ml Laboratory Tests 03/12/18 09:25: Total Creatine Kinase 55 Height (Feet): 5 Height (Inches): 7.00 Weight (Pounds): 134 General Appearance: no apparent distress Objective no change DALTON ROSENTHAL March 12, 2018 10:32
--- NOTE | 2018-03-12 11:29 | Pulmonology Progress Note ---
Assessment/Plan Problems: (1) Sepsis (2) Bacteremia (3) Acute respiratory failure Assessment & Plan: resolved (4) ESRF (end stage renal failure) (5) Pulmonary edema (6) DVT (deep venous thrombosis) Assessment/Plan last BC are negative improving infected fistula on nasal cannula now HD by director financial analysis respiratory treatment titrate fio2 to sat of 92% check Hemoglobin, remains around 7 all meds reviewed Subjective ROS Limited/Unobtainable: No Constitutional: Reports: no symptoms HEENT: Repors: no symptoms Allergies: Coded Allergies: No Known Allergies (Unverified , 02/02/18) Objective Last 24 Hour Vital Signs Date Time Temp Pulse Resp B/P (MAP) Pulse Ox O2 Delivery O2 Flow Rate FiO2 03/12/18 08:00 97.1 66 20 141/60 93 Nasal Cannula 3.0 97.1 03/12/18 04:00 97.5 72 20 144/66 95 Nasal Cannula 3.0 97.5 03/12/18 00:36 97.6 03/12/18 00:00 97.2 73 20 147/69 94 Nasal Cannula 3.0 97.2 03/11/18 23:37 97.6 03/11/18 20:00 97.6 69 20 141/72 94 Nasal Cannula 3.0 97.6 03/11/18 18:28 97.6 03/11/18 16:00 97.5 66 20 143/77 93 Nasal Cannula 3.0 97.5 03/11/18 16:00 66 03/11/18 14:00 Nasal Cannula 3.0 03/11/18 14:00 97.6 71 20 120/68 Nasal Cannula 3.0 97.6 03/11/18 12:00 71 03/11/18 12:00 97.2 67 15 104/58 97 Nasal Cannula 2.0 97.2 Intake and Output 03/11/18 03/12/18 19:00 07:00 Intake Total 500 ml 340 ml Output Total 1680 ml Balance -1180 ml 340 ml Intake Oral 500 ml 120 ml IV Total 220 ml Hemodialysis UF 1680 ml Objective General Appearance: WD/WN HEENT: normocephalic, atraumatic Respiratory/Chest: chest wall non-tender, lungs clear Cardiovascular: normal peripheral pulses, normal rate, regular rhythm Abdomen: normal bowel sounds, soft, non tender, no organomegaly, non distended Extremities: no cyanosis, no clubbing, no edema Skin: no rash, no lesions Neurologic/Psychiatric: signal person II-XII grossly normal Laboratory Tests 03/12/18 09:25: Total Creatine Kinase 55 Current Medications Medications (Trade) Dose Ordered Sig/Blessing Route PRN Reason Start Time Stop Time Status Last Admin Dose Admin Acetaminophen (Tylenol) 500 mg 3XW PRN ORAL WITH DIALYSIS 03/09/18 19:24 04/08/18 19:23 Acetaminophen (Tylenol) 650 mg Q4H PRN RECTAL Mild Pain/Temp > 100.5 03/09/18 19:24 04/07/18 19:23 Acetaminophen (Tylenol) 650 mg Q6H PRN ORAL Mild Pain/Temp > 100.5 03/09/18 19:24 04/08/18 19:23 03/10/18 14:31 Calcium Acetate (Phoslo) 1,334 mg TIAC ORAL 03/10/18 11:30 04/09/18 11:29 03/12/18 05:23 Ceftaroline Fosamil 200 mg/ Sodium Chloride 110 ml @ 110 mls/hr Q12H IVPB 03/09/18 21:30 03/16/18 23:59 03/11/18 23:44 Chlorhexidine Gluconate (Miriam-Hex 2%) 1 applic DAILY@2000 TOPIC 03/09/18 20:00 04/07/18 20:59 03/11/18 20:00 Clonidine HCl (Catapres Tab) 0.1 mg Q4H PRN ORAL FOR SBP > 160. 03/09/18 19:24 04/07/18 19:23 Daptomycin 450 mg/ Sodium Chloride 110 ml @ 200 mls/hr Q48H IV 03/09/18 20:00 03/14/18 23:59 03/11/18 21:04 Diphenhydramine HCl (Benadryl) 50 mg Q6H PRN ORAL Itching 03/09/18 19:24 04/08/18 19:23 03/11/18 23:35 Docusate Sodium (Colace) 100 mg THREE TIMES A DAY ORAL 03/10/18 13:00 04/09/18 12:59 03/12/18 08:51 Epoetin Alfonzo (Procrit (for ESRD on dialysis)) 10,000 units SUN-SUN-SUN SUBQ 03/11/18 21:00 03/27/18 20:59 03/11/18 21:05 Haloperidol Lactate (Haldol) 5 mg Q4H PRN IM AGITATION 03/09/18 19:24 03/25/18 19:23 03/12/18 05:22 Lansoprazole (Prevacid) 30 mg DAILY@0730 ORAL 03/10/18 07:30 03/31/18 07:29 03/12/18 05:22 Oxycodone/ Acetaminophen (Percocet 10/325) 1 tab Q4H PRN ORAL Severe Pain (Pain Scale 7-10) 03/09/18 19:25 03/15/18 19:24 03/11/18 23:37 Prochlorperazine (Compazine) 10 mg Q6H PRN IVP Nausea & Vomiting 03/09/18 19:25 03/25/18 19:24 03/11/18 21:30 Quetiapine Fumarate (SEROquel) 25 mg QHS ORAL 03/09/18 22:00 03/25/18 21:59 03/11/18 21:05 Sevelamer Carbonate (Renvela) 2,400 mg QID ORAL 03/10/18 13:00 04/01/18 07:29 03/12/18 08:52 Clement Mcleod MD March 12, 2018 11:29
[2018-03-12 12:00] VITALS: BP 105/81
--- NOTE | 2018-03-12 12:56 | Cardiology Progress Note ---
Assessment/Plan Assessment/Plan 1. Hypertension. 2. End-stage renal disease, on hemodialysis. 3. Anemia. 4. History of GI bleed secondary to AVMs. 5. Acute deep venous thrombosis, left leg. 6. History of femoral neck fracture 7. acute diastolic heart failure 8. persistent bacteremai felt to be due to dialysis catheter 9. thrombocytopenia imoproved ctpa neg for pe has ivc filter inplace already dilaysis / uf persistent bacteremia is of concern pt awake mentation improved id input noted regarding persitent bacteremia new neg for veg tele sinus ok to med surg Subjective Cardiovascular: Denies: chest pain Respiratory: Denies: shortness of breath Gastrointestinal/Abdominal: Denies: abdominal pain Genitourinary: Denies: burning Subjective is in restraints Objective Last 24 Hour Vital Signs Date Time Temp Pulse Resp B/P (MAP) Pulse Ox O2 Delivery O2 Flow Rate FiO2 03/12/18 08:00 97.1 66 20 141/60 93 Nasal Cannula 3.0 97.1 03/12/18 04:00 97.5 72 20 144/66 95 Nasal Cannula 3.0 97.5 03/12/18 00:36 97.6 03/12/18 00:00 97.2 73 20 147/69 94 Nasal Cannula 3.0 97.2 03/11/18 23:37 97.6 03/11/18 20:00 97.6 69 20 141/72 94 Nasal Cannula 3.0 97.6 03/11/18 18:28 97.6 03/11/18 16:00 97.5 66 20 143/77 93 Nasal Cannula 3.0 97.5 03/11/18 16:00 66 03/11/18 14:00 Nasal Cannula 3.0 03/11/18 14:00 97.6 71 20 120/68 Nasal Cannula 3.0 97.6 General Appearance: no apparent distress Cardiovascular: normal rate, regular rhythm Respiratory/Chest: lungs clear Abdomen: normal bowel sounds, non tender, soft Extremities: no swelling Intake and Output 03/11/18 03/12/18 19:00 07:00 Intake Total 500 ml 340 ml Output Total 1680 ml Balance -1180 ml 340 ml Intake Oral 500 ml 120 ml IV Total 220 ml Hemodialysis UF 1680 ml Laboratory Tests Test 03/12/18 09:25 Total Creatine Kinase 55 U/L (26-308) Jony Becker MD March 12, 2018 12:56
[2018-03-12] MEDS: CEFTAROLINE IVPB SCH ×2 (13:21→20:31)
[2018-03-12] MEDS: NS IVPB SCH ×2 (13:21→20:31)
--- NOTE | 2018-03-12 14:21 | GI Progress Note ---
Assessment/Plan Problems: (1) Abnormal LFTs ICD Codes: R94.5 - Abnormal results of liver function studies SNOMED: 089312664 (2) Symptomatic anemia ICD Codes: D64.9 - Anemia, unspecified SNOMED: 914678770 (3) ESRD (end stage renal disease) on dialysis ICD Codes: N18.6 - End stage renal disease; Z99.2 - Dependence on renal dialysis SNOMED: 410857306 Status: unchanged Status Narrative Discussed with Dr. Matos. Assessment/Plan iron panel WNL OB stool negative x3 Hep C positive >> outpatient treatment SUMMARY OF FINDINGS: 1. Duodenitis. 2. Gastritis. 3. Gastric polyp about 8 mm removed with the snare polypectomy technique. RECOMMENDATIONS: s/p AMAURI Follow up biopsies and treat accordingly. >> gastric xanthoma fu nephro recs monitor H&H, prn transfusions ppi thiamine fu labs dc planning The patient was seen and examined at bedside and all new and available data was reviewed in the patients chart. I agree with the above findings, impression and plan. (Patient seen earlier today. Signature stamp does not reflect patient encounter time.). - Tushar Matos MD Subjective Subjective denies abdominal pain Objective Last 24 Hour Vital Signs Date Time Temp Pulse Resp B/P (MAP) Pulse Ox O2 Delivery O2 Flow Rate FiO2 03/12/18 12:00 70 03/12/18 12:00 97.2 73 20 105/81 93 Nasal Cannula 3.0 97.2 03/12/18 08:00 70 03/12/18 08:00 97.1 66 20 141/60 93 Nasal Cannula 3.0 97.1 03/12/18 04:00 97.5 72 20 144/66 95 Nasal Cannula 3.0 97.5 03/12/18 00:36 97.6 03/12/18 00:00 97.2 73 20 147/69 94 Nasal Cannula 3.0 97.2 03/11/18 23:37 97.6 03/11/18 20:00 97.6 69 20 141/72 94 Nasal Cannula 3.0 97.6 03/11/18 18:28 97.6 03/11/18 16:00 97.5 66 20 143/77 93 Nasal Cannula 3.0 97.5 03/11/18 16:00 66 Intake and Output 03/11/18 03/12/18 19:00 07:00 Intake Total 500 ml 340 ml Output Total 1680 ml Balance -1180 ml 340 ml Intake Oral 500 ml 120 ml IV Total 220 ml Hemodialysis UF 1680 ml Laboratory Tests Test 03/12/18 09:25 Total Creatine Kinase 55 U/L (26-308) Height (Feet): 5 Height (Inches): 7.00 Weight (Pounds): 134 General Appearance: WD/WN, no apparent distress, alert Cardiovascular: normal rate Respiratory/Chest: normal breath sounds, no respiratory distress Abdominal Exam: normal bowel sounds, non tender, soft Extremities: normal range of motion, non-tender Meliton Aldana NP March 12, 2018 14:21
--- NOTE | 2018-03-12 15:15 | General Progress Note ---
Assessment/Plan Problem List: (1) Abnormal laboratory test result ICD Codes: R89.9 - Unspecified abnormal finding in specimens from other organs , systems and tissues SNOMED: 127719480 (2) ESRD (end stage renal disease) on dialysis ICD Codes: N18.6 - End stage renal disease; Z99.2 - Dependence on renal dialysis SNOMED: 688762108 (3) Hypertension, uncontrolled ICD Codes: I10 - Essential (primary) hypertension SNOMED: 75828554, 62405509 (4) Symptomatic anemia ICD Codes: D64.9 - Anemia, unspecified SNOMED: 411688553 (5) Acute hyperkalemia ICD Codes: E87.5 - Hyperkalemia SNOMED: 1577233 (6) DVT (deep venous thrombosis) ICD Codes: I82.409 - Acute embolism and thrombosis of unspecified deep veins of unspecified lower extremity SNOMED: 288932964 (7) SOB (shortness of breath) ICD Codes: R06.02 - Shortness of breath SNOMED: 412169939 (8) Respiratory failure ICD Codes: J96.90 - Respiratory failure, unspecified, unspecified whether with hypoxia or hypercapnia SNOMED: 668757288 Status: unchanged Assessment/Plan ot pt diet o2 pulm tx gi/heme f/u anticoag pulm transfuse prn cbc bmp am shunt f /u Subjective Constitutional: Reports: weakness Allergies: Coded Allergies: No Known Allergies (Unverified , 02/02/18) All Systems: reviewed and negative except above Subjective sleepy calm Objective Last 24 Hour Vital Signs Date Time Temp Pulse Resp B/P (MAP) Pulse Ox O2 Delivery O2 Flow Rate FiO2 03/12/18 12:00 70 03/12/18 12:00 97.2 73 20 105/81 93 Nasal Cannula 3.0 97.2 03/12/18 08:00 70 03/12/18 08:00 97.1 66 20 141/60 93 Nasal Cannula 3.0 97.1 03/12/18 04:00 97.5 72 20 144/66 95 Nasal Cannula 3.0 97.5 03/12/18 00:36 97.6 03/12/18 00:00 97.2 73 20 147/69 94 Nasal Cannula 3.0 97.2 03/11/18 23:37 97.6 5/28/18 20:00 97.6 69 20 141/72 94 Nasal Cannula 3.0 97.6 03/11/18 18:28 97.6 03/11/18 16:00 97.5 66 20 143/77 93 Nasal Cannula 3.0 97.5 03/11/18 16:00 66 Intake and Output 03/11/18 03/12/18 19:00 07:00 Intake Total 500 ml 340 ml Output Total 1680 ml Balance -1180 ml 340 ml Intake Oral 500 ml 120 ml IV Total 220 ml Hemodialysis UF 1680 ml Laboratory Tests 03/12/18 09:25: Total Creatine Kinase 55 Height (Feet): 5 Height (Inches): 7.00 Weight (Pounds): 134 General Appearance: lethargic EENT: normal ENT inspection Neck: normal alignment Cardiovascular: normal peripheral pulses, normal rate, regular rhythm Respiratory/Chest: chest wall non-tender, lungs clear, normal breath sounds Abdomen: normal bowel sounds, non tender, soft Extremities: normal inspection Edema: no edema noted Arm (L), no edema noted Arm (R), no edema noted Leg (L), no edema noted Leg (R), no edema noted Pedal (L), no edema noted Pedal (R), no edema noted Generalized Neurologic: motor weakness Skin: normal pigmentation, warm/dry Lebron Swift DO March 12, 2018 15:15
[2018-03-12 16:00] VITALS: BP 154/70
[2018-03-12] MEDS ORDERED: Haloperidol 5mg/ml Inj IM PRN (19:30)
[2018-03-12] MEDS ORDERED: Acetaminophen 650 MG SUPP RECTAL PRN (19:30)
[2018-03-12 20:00] VITALS: BP 158/72
[2018-03-12] MEDS: Dyna-Hex 2% Top Sol 2oz TOPIC SCH (20:31)
[2018-03-13] VITALS (7 sets, daily range): BP systolic 124–164; BP diastolic 61–78
[2018-03-13] MEDS: Calcium Acetate 667mg Tab ORAL SCH ×3 (05:30→17:25)
[2018-03-13 07:10] LABS: BASOPHILS % (AUTO) 1.6 % (0.0-2.0); EOSINOPHILS % (AUTO) 1.4 % (0.0-3.0); HEMATOCRIT 30.5 % (42.0-52.0); HEMOGLOBIN 9.8 G/DL (14.2-18.0); LYMPHOCYTES % (AUTO) 15.5 % (20.0-45.0); MEAN CORPUSCULAR VOLUME 95 FL (80-99); MONOCYTES % (AUTO) 6.5 % (1.0-10.0); PLATELET COUNT 117 K/UL (150-450); RED BLOOD COUNT 3.21 M/UL (4.70-6.10); RED CELL DISTRIBUTION WIDTH 19.5 % (11.6-14.8); WHITE BLOOD COUNT 4.4 K/UL (4.8-10.8)
[2018-03-13 07:26] LABS: ALBUMIN 2.7 G/DL (3.4-5.0); ALBUMIN/GLOBULIN RATIO 0.6 (1.0-2.7); ALKALINE PHOSPHATASE 374 U/L (46-116); ANION GAP 10 mmol/L (5-15); ASPARTATE AMINO TRANSFERASE 15 U/L (15-37); BILIRUBIN,TOTAL 0.9 MG/DL (0.2-1.0); BLOOD UREA NITROGEN 49 mg/dL (7-18); CALCIUM 8.7 MG/DL (8.5-10.1); CARBON DIOXIDE 34 MMOL/L (21-32); CHLORIDE 94 MMOL/L (98-107); CREATININE 8.5 MG/DL (0.55-1.30); PHOSPHORUS 6.4 MG/DL (2.5-4.9); POTASSIUM 3.7 MMOL/L (3.5-5.1); SODIUM 138 MMOL/L (136-145)
[2018-03-13 07:37] LABS: ALANINE AMINOTRANSFERASE 7 U/L (12-78)
--- NOTE | 2018-03-13 08:26 | General Progress Note ---
Assessment/Plan Status: stable Assessment/Plan #. Acute deep venous thrombosis of left lower extremity. --> Status post inferior vena cava filter placement. --> given low h/h monitor closely if any bleed and ivc should hold off further PEs --> hold off on further anticoagulation given low h/h #. Anemia of gastrointestinal bleed. --> transfuse if hgb <7, workup has been reviewed --> Appreciate gi recs, has been seen by them --> had endoscopy but location unknown where he had it #. Thrombocytopenia baseline likely plt count of >50-100k, chronic --> likely related to splenomegaly and hepatitis C --> monitor closely for bleed if downtrends though this is less likely --> transfuse to keep plt >20k # Numerous small to borderline mediastinal and bilateral axillary lymph nodes. Prominent subcarinal lymph node. Meet pathological size. Imaging has been reviewed for the last two CAT scans --> further recs per pulm in regards to management, reimaging in future, versus more interventional such as biopsy --> appreciate pulm/cc recommendations #. Anemia of kidney disease --> On Hemodialysis by parachute line tier, on epo as well #. Anemia of chronic disease is s/p blood transfusion. #. End-stage renal disease, hemodialysis dependent. --> epo to continue 3x a week #. Leukocytosis -- potentially due to right avf infection --> wbc scan shows a Small focus of uptake within the lower part of the right upper arm consistent with infection. Findings may represent cellulitis, phlegmon or abscess. Correlate clinically. The patient has an arteriovenous fistula in this location. #. History of femoral neck fracture. On pain control. #. Acute respiratory failure. #. Hep C ++ Subjective Date patient seen: March 13, 2018 Allergies: Coded Allergies: No Known Allergies (Unverified , 02/02/18) All Systems: reviewed and negative except above Subjective Pt is awake, a/o x2-3. Nurses released restraints, patient tried to take out his nasal cannula and tried to grab his brenda cath and get out of the bed. Continue plan of care. Objective Last 24 Hour Vital Signs Date Time Temp Pulse Resp B/P (MAP) Pulse Ox O2 Delivery O2 Flow Rate FiO2 03/13/18 08:00 98.3 79 18 132/70 97 98.3 03/13/18 04:00 97.3 78 19 137/68 98 97.3 03/13/18 00:00 97.4 65 19 159/77 97 97.4 03/12/18 20:00 98.2 67 19 158/72 95 98.2 03/12/18 16:00 97.7 75 20 154/70 93 Nasal Cannula 3.0 97.7 03/12/18 12:00 70 03/12/18 12:00 97.2 73 20 105/81 93 Nasal Cannula 3.0 97.2 Intake and Output 03/12/18 03/13/18 19:00 07:00 Intake Total 380 ml Balance 380 ml Intake Oral 380 ml # Voids 2 Laboratory Tests 03/12/18 09:25: Total Creatine Kinase 55 03/13/18 06:40: White Blood Count 4.4L, Red Blood Count 3.21L, Hemoglobin 9.8L, Hematocrit 30.5L , Mean Corpuscular Volume 95, Mean Corpuscular Hemoglobin 30.4, Mean Corpuscular Hemoglobin Concent 32.0, Red Cell Distribution Width 19.5H, Platelet Count 117L, Mean Platelet Volume 7.0, Neutrophils (%) (Auto) 75.0, Lymphocytes (%) (Auto) 15.5L, Monocytes (%) (Auto) 6.5, Eosinophils (%) (Auto) 1.4, Basophils (%) (Auto) 1.6, Sodium Level 138, Potassium Level 3.7, Chloride Level 94L, Carbon Dioxide Level 34H, Anion Gap 10, Blood Urea Nitrogen 49H, Creatinine 8.5H, Estimat Glomerular Filtration Rate 6.4, Glucose Level 95, Calcium Level 8.7, Phosphorus Level 6.4H, Magnesium Level 2.1, Total Bilirubin 0.9, Aspartate Amino Transf (AST/SGOT) 15, Alanine Aminotransferase (ALT/SGPT) 7L, Alkaline Phosphatase 374H, C-Reactive Protein, Quantitative 5.7H, Pro-B- Type Natriuretic Peptide 93665L, Total Protein 7.2, Albumin 2.7L, Globulin 4.5, Albumin/Globulin Ratio 0.6L Height (Feet): 5 Height (Inches): 7.00 Weight (Pounds): 141 General Appearance: no apparent distress, agitated EENT: normal ENT inspection Neck: normal alignment, supple Cardiovascular: normal rate Respiratory/Chest: normal breath sounds Abdomen: non tender Tristen Lewis MD March 13, 2018 08:26
[2018-03-13] MEDS: Docusate 100mg cap ORAL SCH ×3 (08:44→17:25)
[2018-03-13] MEDS ORDERED: Acetaminophen 500mg (ES) tab ORAL PRN (09:00)
[2018-03-13] MEDS: CEFTAROLINE IVPB SCH ×2 (09:22→22:46)
[2018-03-13] MEDS: NS IVPB SCH ×2 (09:22→22:46)
--- NOTE | 2018-03-13 09:33 | Diagnostic Imaging Report ---
APPROVED REPORT CPT Code: G0365 Present Symptoms Comments: Hx of Renal Failure Vein Measurements(cm) Cephalic Basilic Right LeftRight Left Upper Arm0.60Mid Upper Arm0.54 Mid Upper Arm0.60Antecubital Fossa Antecubital Fossa0.50Wrist Upper Forearm0.26 VEIN MAPPING: The left cephalic and basilic veins were imaged and measured to evaluate as a potential graft for dialysis access.
--- NOTE | 2018-03-13 09:33 | Diagnostic Imaging Report ---
APPROVED REPORT CPT Code: 36326 Symptoms Other : Pre-Op LEFT UPPER EXTREMITY: Imaging of the subclavian, axillary, brachial, radial and ulnar arteries is within normal limits. There is no evidence of stenosis or occlusion within these segments. The Doppler waveforms of the left upper extremity are multiphasic, consistent with normal inflow to the left upper extremity.
--- NOTE | 2018-03-13 09:33 | Diagnostic Imaging Report ---
APPROVED REPORT CPT Code: 69846 Present Symptoms Comments: Pre-Op LEFT UPPER EXTREMITY (Deep venous system): Imaging reveals patency of the internal jugular, subclavian, axillary and brachial veins. Doppler indicates normal spontaneous flow within these venous segments.
--- NOTE | 2018-03-13 10:57 | Vascular Surgery Progress Note ---
Subjective Subjective All noted Transferred to floor room 410 No new complaints Doing much better No hand no arm pain On abx per ID Awaiting clearance for new permcath and left arm av shunt Objective Objective Last 24 Hour Vital Signs Date Time Temp Pulse Resp B/P (MAP) Pulse Ox O2 Delivery O2 Flow Rate FiO2 03/13/18 08:00 98.3 79 18 132/70 97 98.3 03/13/18 04:00 97.3 78 19 137/68 98 97.3 03/13/18 00:00 97.4 65 19 159/77 97 97.4 03/12/18 20:00 98.2 67 19 158/72 95 98.2 03/12/18 16:00 97.7 75 20 154/70 93 Nasal Cannula 3.0 97.7 03/12/18 12:00 70 03/12/18 12:00 97.2 73 20 105/81 93 Nasal Cannula 3.0 97.2 Intake and Output 03/12/18 03/13/18 19:00 07:00 Intake Total 380 ml Balance 380 ml Intake Oral 380 ml # Voids 2 Laboratory Tests Test 03/13/18 06:40 White Blood Count 4.4 K/UL (4.8-10.8) L Red Blood Count 3.21 M/UL (4.70-6.10) L Hemoglobin 9.8 G/DL (14.2-18.0) L Hematocrit 30.5 % (42.0-52.0) L Mean Corpuscular Volume 95 FL (80-99) Mean Corpuscular Hemoglobin 30.4 PG (27.0-31.0) Mean Corpuscular Hemoglobin Concent 32.0 G/DL (32.0-36.0) Red Cell Distribution Width 19.5 % (11.6-14.8) H Platelet Count 117 K/UL (150-450) L Mean Platelet Volume 7.0 FL (6.5-10.1) Neutrophils (%) (Auto) 75.0 % (45.0-75.0) Lymphocytes (%) (Auto) 15.5 % (20.0-45.0) L Monocytes (%) (Auto) 6.5 % (1.0-10.0) Eosinophils (%) (Auto) 1.4 % (0.0-3.0) Basophils (%) (Auto) 1.6 % (0.0-2.0) Sodium Level 138 MMOL/L (136-145) Potassium Level 3.7 MMOL/L (3.5-5.1) Chloride Level 94 MMOL/L (98-107) L Carbon Dioxide Level 34 MMOL/L (21-32) H Anion Gap 10 mmol/L (5-15) Blood Urea Nitrogen 49 mg/dL (7-18) H Creatinine 8.5 MG/DL (0.55-1.30) H Estimat Glomerular Filtration Rate 6.4 mL/min (>60) Glucose Level 95 MG/DL (74-106) Calcium Level 8.7 MG/DL (8.5-10.1) Phosphorus Level 6.4 MG/DL (2.5-4.9) H Magnesium Level 2.1 MG/DL (1.8-2.4) Total Bilirubin 0.9 MG/DL (0.2-1.0) Aspartate Amino Transf (AST/SGOT) 15 U/L (15-37) Alanine Aminotransferase (ALT/SGPT) 7 U/L (12-78) L Alkaline Phosphatase 374 U/L (46-116) H C-Reactive Protein, Quantitative 5.7 mg/dL (0.00-0.90) H Pro-B-Type Natriuretic Peptide 00270 pg/mL (0-125) H Total Protein 7.2 G/DL (6.4-8.2) Albumin 2.7 G/DL (3.4-5.0) L Globulin 4.5 g/dL Albumin/Globulin Ratio 0.6 (1.0-2.7) L Height (Feet): 5 Height (Inches): 7.00 Weight (Pounds): 141 Objective Awake alert cvs rrr lungs cta abd soft nontender Right hand warm with palpable radial pulse Incisions c/d/i left neck Saravanan cath c/d/i Feet warm intact dopplers Assessment/Plan Assessment Doing better No fever Normal wbc On HD via left IJ Saravanan cath Seen by psych on meds s/p complete right arm infected AV ptfe graft removal with pus abscess around blistered wound s/p I&D s/p resection of right brachial artery anastomosis and right brachial artery bypass with vein with palpable 3+ right radial pulse s/p left ij Saravanan cath with pigtail ESRD on HD Hx of infected right arm av graft with blistered abscess Recurrent MRSA bacteremia Hep C+ Left leg DVT Hx of IVC filter Plan PT OT- ambulate with help Abx per ID Psych f/u HD via left neck Saravanan cath Right arm wound care For new permcath & left arm av shunt once medically cleared and ok with ID Hep C per GI d/w pt at length d/w nurse at bedside Jon Neal MD March 13, 2018 10:57
--- NOTE | 2018-03-13 11:41 | GI Progress Note ---
Assessment/Plan Problems: (1) Abnormal LFTs ICD Codes: R94.5 - Abnormal results of liver function studies SNOMED: 383839606 (2) Symptomatic anemia ICD Codes: D64.9 - Anemia, unspecified SNOMED: 315936278 (3) ESRD (end stage renal disease) on dialysis ICD Codes: N18.6 - End stage renal disease; Z99.2 - Dependence on renal dialysis SNOMED: 259244959 Status: stable Status Narrative Discussed with Dr. Matos. Assessment/Plan iron panel WNL OB stool negative x3 Hep C positive >> outpatient treatment SUMMARY OF FINDINGS: 1. Duodenitis. 2. Gastritis. 3. Gastric polyp about 8 mm removed with the snare polypectomy technique. RECOMMENDATIONS: s/p AMAURI Follow up biopsies and treat accordingly. >> gastric xanthoma fu nephro recs monitor H&H, prn transfusions ppi thiamine fu labs dc planning The patient was seen and examined at bedside and all new and available data was reviewed in the patients chart. I agree with the above findings, impression and plan. (Patient seen earlier today. Signature stamp does not reflect patient encounter time.). - Tushar Matos MD Subjective Subjective denies abdominal pain Objective Last 24 Hour Vital Signs Date Time Temp Pulse Resp B/P (MAP) Pulse Ox O2 Delivery O2 Flow Rate FiO2 03/13/18 08:00 98.3 79 18 132/70 97 98.3 03/13/18 04:00 97.3 78 19 137/68 98 97.3 03/13/18 00:00 97.4 65 19 159/77 97 97.4 03/12/18 20:00 98.2 67 19 158/72 95 98.2 03/12/18 16:00 97.7 75 20 154/70 93 Nasal Cannula 3.0 97.7 03/12/18 12:00 70 03/12/18 12:00 97.2 73 20 105/81 93 Nasal Cannula 3.0 97.2 Intake and Output 03/12/18 03/13/18 19:00 07:00 Intake Total 380 ml Balance 380 ml Intake Oral 380 ml # Voids 2 Laboratory Tests Test 03/13/18 06:40 White Blood Count 4.4 K/UL (4.8-10.8) L Red Blood Count 3.21 M/UL (4.70-6.10) L Hemoglobin 9.8 G/DL (14.2-18.0) L Hematocrit 30.5 % (42.0-52.0) L Mean Corpuscular Volume 95 FL (80-99) Mean Corpuscular Hemoglobin 30.4 PG (27.0-31.0) Mean Corpuscular Hemoglobin Concent 32.0 G/DL (32.0-36.0) Red Cell Distribution Width 19.5 % (11.6-14.8) H Platelet Count 117 K/UL (150-450) L Mean Platelet Volume 7.0 FL (6.5-10.1) Neutrophils (%) (Auto) 75.0 % (45.0-75.0) Lymphocytes (%) (Auto) 15.5 % (20.0-45.0) L Monocytes (%) (Auto) 6.5 % (1.0-10.0) Eosinophils (%) (Auto) 1.4 % (0.0-3.0) Basophils (%) (Auto) 1.6 % (0.0-2.0) Sodium Level 138 MMOL/L (136-145) Potassium Level 3.7 MMOL/L (3.5-5.1) Chloride Level 94 MMOL/L (98-107) L Carbon Dioxide Level 34 MMOL/L (21-32) H Anion Gap 10 mmol/L (5-15) Blood Urea Nitrogen 49 mg/dL (7-18) H Creatinine 8.5 MG/DL (0.55-1.30) H Estimat Glomerular Filtration Rate 6.4 mL/min (>60) Glucose Level 95 MG/DL (74-106) Calcium Level 8.7 MG/DL (8.5-10.1) Phosphorus Level 6.4 MG/DL (2.5-4.9) H Magnesium Level 2.1 MG/DL (1.8-2.4) Total Bilirubin 0.9 MG/DL (0.2-1.0) Aspartate Amino Transf (AST/SGOT) 15 U/L (15-37) Alanine Aminotransferase (ALT/SGPT) 7 U/L (12-78) L Alkaline Phosphatase 374 U/L (46-116) H C-Reactive Protein, Quantitative 5.7 mg/dL (0.00-0.90) H Pro-B-Type Natriuretic Peptide 28470 pg/mL (0-125) H Total Protein 7.2 G/DL (6.4-8.2) Albumin 2.7 G/DL (3.4-5.0) L Globulin 4.5 g/dL Albumin/Globulin Ratio 0.6 (1.0-2.7) L Height (Feet): 5 Height (Inches): 7.00 Weight (Pounds): 141 General Appearance: WD/WN, no apparent distress, alert Cardiovascular: normal rate Respiratory/Chest: normal breath sounds, no respiratory distress Abdominal Exam: normal bowel sounds, non tender, soft Extremities: normal range of motion, non-tender Meliton Aldana NP March 13, 2018 11:41
--- NOTE | 2018-03-13 13:11 | Nephrology Progress Note ---
Assessment/Plan Problem List: (1) ESRD (end stage renal disease) on dialysis (2) Acute hyperkalemia (3) Hypertension, uncontrolled (4) Left leg DVT (5) Anemia in chronic kidney disease (CKD) Assessment due dialysis today Post removal of infected fistula infected right arm fistula BP stable stop mind altering meds ESRD, on admission missed dialysis . has high K on admission has fistula right arm Sever Anemia h/o Amyloidosis COPD Plan increase phos binders removal of fistula,03/08 placement of permacath HD as needed next 03/13 stop BP meds- on PRN clonidine only Transfusion as needed Kayexelate as needed BP control, meds adjusted has IVC filter add phos binders Subjective ROS Limited/Unobtainable: No Constitutional: Reports: malaise Objective Objective Last 24 Hour Vital Signs Date Time Temp Pulse Resp B/P (MAP) Pulse Ox O2 Delivery O2 Flow Rate FiO2 03/13/18 08:00 98.3 79 18 132/70 97 98.3 03/13/18 04:00 97.3 78 19 137/68 98 97.3 03/13/18 00:00 97.4 65 19 159/77 97 97.4 03/12/18 20:00 98.2 67 19 158/72 95 98.2 03/12/18 16:00 97.7 75 20 154/70 93 Nasal Cannula 3.0 97.7 Intake and Output 03/12/18 03/13/18 19:00 07:00 Intake Total 380 ml Balance 380 ml Intake Oral 380 ml # Voids 2 Laboratory Tests 03/13/18 06:40: White Blood Count 4.4L, Red Blood Count 3.21L, Hemoglobin 9.8L, Hematocrit 30.5L , Mean Corpuscular Volume 95, Mean Corpuscular Hemoglobin 30.4, Mean Corpuscular Hemoglobin Concent 32.0, Red Cell Distribution Width 19.5H, Platelet Count 117L, Mean Platelet Volume 7.0, Neutrophils (%) (Auto) 75.0, Lymphocytes (%) (Auto) 15.5L, Monocytes (%) (Auto) 6.5, Eosinophils (%) (Auto) 1.4, Basophils (%) (Auto) 1.6, Sodium Level 138, Potassium Level 3.7, Chloride Level 94L, Carbon Dioxide Level 34H, Anion Gap 10, Blood Urea Nitrogen 49H, Creatinine 8.5H, Estimat Glomerular Filtration Rate 6.4, Glucose Level 95, Calcium Level 8.7, Phosphorus Level 6.4H, Magnesium Level 2.1, Total Bilirubin 0.9, Aspartate Amino Transf (AST/SGOT) 15, Alanine Aminotransferase (ALT/SGPT) 7L, Alkaline Phosphatase 374H, C-Reactive Protein, Quantitative 5.7H, Pro-B- Type Natriuretic Peptide 93452D, Total Protein 7.2, Albumin 2.7L, Globulin 4.5, Albumin/Globulin Ratio 0.6L Height (Feet): 5 Height (Inches): 7.00 Weight (Pounds): 141 General Appearance: no apparent distress Cardiovascular: normal rate Respiratory/Chest: decreased breath sounds Abdomen: soft Objective no change DALTON ROSENTHAL March 13, 2018 13:11
--- NOTE | 2018-03-13 14:07 | Pulmonology Progress Note ---
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 titrate fio2 to sat of 92% check Hemoglobin, remains around 7 all meds reviewed Subjective ROS Limited/Unobtainable: No Constitutional: Reports: no symptoms HEENT: Repors: no symptoms Respiratory: Reports: no symptoms Allergies: Coded Allergies: No Known Allergies (Unverified , 02/02/18) Objective Last 24 Hour Vital Signs Date Time Temp Pulse Resp B/P (MAP) Pulse Ox O2 Delivery O2 Flow Rate FiO2 03/13/18 12:00 97.6 66 18 150/78 97 97.6 03/13/18 08:00 98.3 79 18 132/70 97 98.3 03/13/18 04:00 97.3 78 19 137/68 98 97.3 03/13/18 00:00 97.4 65 19 159/77 97 97.4 03/12/18 20:00 98.2 67 19 158/72 95 98.2 03/12/18 16:00 97.7 75 20 154/70 93 Nasal Cannula 3.0 97.7 Intake and Output 03/12/18 03/13/18 19:00 07:00 Intake Total 380 ml Balance 380 ml Intake Oral 380 ml # Voids 2 Objective General Appearance: WD/WN HEENT: normocephalic, atraumatic Respiratory/Chest: chest wall non-tender, lungs clear Cardiovascular: normal peripheral pulses, normal rate, regular rhythm Abdomen: normal bowel sounds, soft, non tender, no organomegaly, non distended Extremities: no cyanosis, no clubbing, no edema Skin: no rash, no lesions 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 grossly normal Laboratory Tests 03/13/18 06:40: White Blood Count 4.4L, Red Blood Count 3.21L, Hemoglobin 9.8L, Hematocrit 30.5L , Mean Corpuscular Volume 95, Mean Corpuscular Hemoglobin 30.4, Mean Corpuscular Hemoglobin Concent 32.0, Red Cell Distribution Width 19.5H, Platelet Count 117L, Mean Platelet Volume 7.0, Neutrophils (%) (Auto) 75.0, Lymphocytes (%) (Auto) 15.5L, Monocytes (%) (Auto) 6.5, Eosinophils (%) (Auto) 1.4, Basophils (%) (Auto) 1.6, Sodium Level 138, Potassium Level 3.7, Chloride Level 94L, Carbon Dioxide Level 34H, Anion Gap 10, Blood Urea Nitrogen 49H, Creatinine 8.5H, Estimat Glomerular Filtration Rate 6.4, Glucose Level 95, Calcium Level 8.7, Phosphorus Level 6.4H, Magnesium Level 2.1, Total Bilirubin 0.9, Aspartate Amino Transf (AST/SGOT) 15, Alanine Aminotransferase (ALT/SGPT) 7L, Alkaline Phosphatase 374H, C-Reactive Protein, Quantitative 5.7H, Pro-B- Type Natriuretic Peptide 19928V, Total Protein 7.2, Albumin 2.7L, Globulin 4.5, Albumin/Globulin Ratio 0.6L Current Medications Medications (Trade) Dose Ordered Sig/Blessing Route PRN Reason Start Time Stop Time Status Last Admin Dose Admin Acetaminophen (Tylenol) 500 mg 3XW PRN ORAL WITH DIALYSIS 03/13/18 09:00 04/08/18 19:23 Acetaminophen (Tylenol) 650 mg Q4H PRN RECTAL Mild Pain/Temp > 100.5 03/12/18 19:30 04/07/18 19:23 Acetaminophen (Tylenol) 650 mg Q6H PRN ORAL Mild Pain/Temp > 100.5 03/12/18 19:30 04/08/18 19:23 Calcium Acetate (Phoslo) 1,334 mg TIAC ORAL 03/12/18 16:30 04/09/18 11:29 03/13/18 05:30 Ceftaroline Fosamil 200 mg/ Sodium Chloride 110 ml @ 110 mls/hr Q12H IVPB 03/12/18 21:30 03/16/18 23:59 03/13/18 09:22 Chlorhexidine Gluconate (Miriam-Hex 2%) 1 applic DAILY@2000 TOPIC 03/12/18 20:00 04/07/18 20:59 03/12/18 20:31 Clonidine HCl (Catapres Tab) 0.1 mg Q4H PRN ORAL FOR SBP > 160. 03/12/18 19:30 04/07/18 19:23 Daptomycin 450 mg/ Sodium Chloride 110 ml @ 200 mls/hr Q48H IV 03/13/18 20:00 03/14/18 23:59 Diphenhydramine HCl (Benadryl) 50 mg Q6H PRN ORAL Itching 03/12/18 19:30 04/08/18 19:23 Docusate Sodium (Colace) 100 mg THREE TIMES A DAY ORAL 03/12/18 18:00 04/09/18 12:59 03/13/18 13:40 Epoetin Alfonzo (Procrit (for ESRD on dialysis)) 10,000 units SUN-SUN-SUN SUBQ 03/13/18 21:00 03/27/18 20:59 Haloperidol Lactate (Haldol) 5 mg Q4H PRN IM AGITATION 03/12/18 19:30 03/25/18 19:23 Lansoprazole (Prevacid) 30 mg DAILY@0730 ORAL 03/13/18 07:30 03/31/18 07:29 03/13/18 08:45 Oxycodone/ Acetaminophen (Percocet 10/325) 1 tab Q4H PRN ORAL Severe Pain (Pain Scale 7-10) 03/12/18 17:00 03/15/18 16:59 03/13/18 13:45 Prochlorperazine (Compazine) 10 mg Q6H PRN IVP Nausea & Vomiting 03/12/18 19:30 03/25/18 19:24 Quetiapine Fumarate (SEROquel) 25 mg QHS ORAL 03/12/18 21:00 03/25/18 21:59 03/12/18 20:30 Sevelamer Carbonate (Renvela) 2,400 mg QID ORAL 03/12/18 18:00 04/01/18 07:29 03/13/18 13:40 Clement Mcleod MD March 13, 2018 14:07
--- NOTE | 2018-03-13 15:54 | General Progress Note ---
Assessment/Plan Problem List: (1) Abnormal laboratory test result ICD Codes: R89.9 - Unspecified abnormal finding in specimens from other organs , systems and tissues SNOMED: 725479634 (2) ESRD (end stage renal disease) on dialysis ICD Codes: N18.6 - End stage renal disease; Z99.2 - Dependence on renal dialysis SNOMED: 476044624 (3) Hypertension, uncontrolled ICD Codes: I10 - Essential (primary) hypertension SNOMED: 10101926, 28761845 (4) Symptomatic anemia ICD Codes: D64.9 - Anemia, unspecified SNOMED: 378091816 (5) Acute hyperkalemia ICD Codes: E87.5 - Hyperkalemia SNOMED: 0000636 (6) DVT (deep venous thrombosis) ICD Codes: I82.409 - Acute embolism and thrombosis of unspecified deep veins of unspecified lower extremity SNOMED: 392221682 (7) SOB (shortness of breath) ICD Codes: R06.02 - Shortness of breath SNOMED: 011153177 (8) Respiratory failure ICD Codes: J96.90 - Respiratory failure, unspecified, unspecified whether with hypoxia or hypercapnia SNOMED: 581526609 Status: unchanged Assessment/Plan ot pt diet o2 pulm tx gi/heme f/u anticoag pulm transfuse prn cbc bmp am shunt f /u Subjective Constitutional: Reports: weakness Allergies: Coded Allergies: No Known Allergies (Unverified , 02/02/18) All Systems: reviewed and negative except above Subjective sleepy calm getting dialyisis Objective Last 24 Hour Vital Signs Date Time Temp Pulse Resp B/P (MAP) Pulse Ox O2 Delivery O2 Flow Rate FiO2 03/13/18 15:47 97.0 71 12 124/61 Nasal Cannula 2.5 97.0 03/13/18 12:00 96.8 65 12 164/78 Nasal Cannula 2.5 96.8 03/13/18 12:00 97.6 66 18 150/78 97 97.6 03/13/18 12:00 Nasal Cannula 2.5 03/13/18 08:00 98.3 79 18 132/70 97 98.3 03/13/18 04:00 97.3 78 19 137/68 98 97.3 03/13/18 00:00 97.4 65 19 159/77 97 97.4 03/12/18 20:00 98.2 67 19 158/72 95 98.2 03/12/18 16:00 97.7 75 20 154/70 93 Nasal Cannula 3.0 97.7 Intake and Output 03/12/18 03/13/18 19:00 07:00 Intake Total 380 ml Balance 380 ml Intake Oral 380 ml # Voids 2 Laboratory Tests 03/13/18 06:40: White Blood Count 4.4L, Red Blood Count 3.21L, Hemoglobin 9.8L, Hematocrit 30.5L , Mean Corpuscular Volume 95, Mean Corpuscular Hemoglobin 30.4, Mean Corpuscular Hemoglobin Concent 32.0, Red Cell Distribution Width 19.5H, Platelet Count 117L, Mean Platelet Volume 7.0, Neutrophils (%) (Auto) 75.0, Lymphocytes (%) (Auto) 15.5L, Monocytes (%) (Auto) 6.5, Eosinophils (%) (Auto) 1.4, Basophils (%) (Auto) 1.6, Sodium Level 138, Potassium Level 3.7, Chloride Level 94L, Carbon Dioxide Level 34H, Anion Gap 10, Blood Urea Nitrogen 49H, Creatinine 8.5H, Estimat Glomerular Filtration Rate 6.4, Glucose Level 95, Calcium Level 8.7, Phosphorus Level 6.4H, Magnesium Level 2.1, Total Bilirubin 0.9, Aspartate Amino Transf (AST/SGOT) 15, Alanine Aminotransferase (ALT/SGPT) 7L, Alkaline Phosphatase 374H, C-Reactive Protein, Quantitative 5.7H, Pro-B- Type Natriuretic Peptide 22148N, Total Protein 7.2, Albumin 2.7L, Globulin 4.5, Albumin/Globulin Ratio 0.6L Height (Feet): 5 Height (Inches): 7.00 Weight (Pounds): 141 General Appearance: lethargic EENT: normal ENT inspection Neck: normal alignment Cardiovascular: normal peripheral pulses, normal rate, regular rhythm Respiratory/Chest: chest wall non-tender, lungs clear, normal breath sounds Abdomen: normal bowel sounds, non tender, soft Extremities: normal inspection Edema: no edema noted Arm (L), no edema noted Arm (R), no edema noted Leg (L), no edema noted Leg (R), no edema noted Pedal (L), no edema noted Pedal (R), no edema noted Generalized Neurologic: motor weakness Skin: normal pigmentation, warm/dry Lebron Swift DO March 13, 2018 15:54
--- NOTE | 2018-03-13 17:09 | Infectious Diseases Prog Note ---
Assessment/Plan Assessment/Plan ASSESSMENT: The patient is a 63-year-old male with, Fever, SP Persistent Bacteremia MRSA ( + on 02/22,, 18, 20, 23; 03/09 NTD )- 2ry to R AVF infection -s/p Complete removal of right arm av graft, I&D right arm wound, Right proximal brachial artery to distal right brachial artery bypass (with reversed right basilic vein, Left IJ dialysis catheter with pigtail 03/08 - OR findings: no vegetation noted, significant pus drained around blistered AV graft -OR cx : MRSA -WBC scan: Small focus of uptake within the lower part of the right upper arm consistent with infection. Findings may represent cellulitis, phlegmon or abscess. Correlate clinically. The patient has an arteriovenous fistula in this location. -wound cx R arm (from AVF fistula)- MRSA -AMAURI- prelim report per cards- no vegetations -CT R ext w/: Limited exam due to motion. No fluid collection or other finding to suggest abscess. No findings to explain abnormality demonstrated on recent indium white cell scan. Patient right upper extremity brachiobasilic AV dialysis graft. Note some non flow-limiting mural thickening or thrombus is present -CT chest abd/p w/ 03/02: Bibasilar lung atelectasis and airspace opacities, worse in the right lower lobe, worrisome for pneumonia. Tiny bilateral pleural effusions. Numerous small to borderline mediastinal and bilateral axillary lymph nodes. Prominent subcarinal lymph node. Emphysema. Mild superior endplate compression deformities T4, T5, T6, T8, T10, T11, are age- indeterminate. Age-indeterminate vertical fracture through the mid L2 vertebral body with anterior wedge compression. 02/26 2DEcho limited , av and mv thickening but no Veg Leukocytosis ,resolved 02/06/ CT of chest [id number] : no evidence of pulmonary emboli, diffuse septal thickening, and bilateral ground glass opacities, and small bilateral pleural effusion. Neg : HIV , Hep panel gastrointestinal bleed : had endoscopy but location unknown 02/25 SP Lt IJ, s/p removal 03/06 ,c ath tip NTD Anemia. End-stage renal disease, on hemodialysis. Left leg DVT. Right hip fracture, status post ORIF. History of hepatitis C Splenomegaly. Status post IVC filter placement PLAN: -Continue IV Daptomycin 8mg/kg q 48hr and Ceftaroline ( AB Rx d# 17) due to persistent bacteremia; will need 6 weeks from 1st neg BCx on 03/09 - monitor CPK -upon discharge, regimen can be simplify to IV Vancomcyin with HD on HD days SP 03/04 IV Vancomycin #8 SP 02/26 Zyvox d# 1 ( pt now has IV Access ) -f/u Bcx x2 and repeat Bcx until clearance of bacteremia -Will await final negative blood cultures prior to permanent HD cath and AVG placement Monitor CBC. Monitor BMP. Monitor blood cultures Monitor chest x-ray. Monitor vital signs wound care care was dw RN Subjective Allergies: Coded Allergies: No Known Allergies (Unverified , 02/02/18) Subjective afebrile no leukocytosis Bcx 03/09 NTD sp cx normal marj Objective Vital Signs Last 24 Hour Vital Signs Date Time Temp Pulse Resp B/P (MAP) Pulse Ox O2 Delivery O2 Flow Rate FiO2 03/13/18 16:00 97.9 80 18 128/71 96 Nasal Cannula 2.5 97.9 03/13/18 15:52 Nasal Cannula 2.5 03/13/18 15:47 97.0 71 12 124/61 Nasal Cannula 2.5 97.0 03/13/18 12:00 96.8 65 12 164/78 Nasal Cannula 2.5 96.8 03/13/18 12:00 97.6 66 18 150/78 97 97.6 03/13/18 12:00 Nasal Cannula 2.5 03/13/18 08:00 98.3 79 18 132/70 97 98.3 03/13/18 04:00 97.3 78 19 137/68 98 97.3 03/13/18 00:00 97.4 65 19 159/77 97 97.4 03/12/18 20:00 98.2 67 19 158/72 95 98.2 Height (Feet): 5 Height (Inches): 7.00 Weight (Pounds): 141 Objective General Appearance: no acute distress HEENT: normocephalic, atraumatic, anicteric Respiratory/Chest: chest wall non-tender, normal breath sounds, no respiratory distressp; temp HD cath Cardiovascular: normal peripheral pulses, normal rate, RUE bandage in place Abdomen: normal bowel sounds, soft, non tender Extremities: multiple tattoos BUE Neurologic/Psychiatric: awake, responsive Musculoskeletal: normal muscle bulk Laboratory Tests Test 03/13/18 06:40 White Blood Count 4.4 K/UL (4.8-10.8) L Red Blood Count 3.21 M/UL (4.70-6.10) L Hemoglobin 9.8 G/DL (14.2-18.0) L Hematocrit 30.5 % (42.0-52.0) L Mean Corpuscular Volume 95 FL (80-99) Mean Corpuscular Hemoglobin 30.4 PG (27.0-31.0) Mean Corpuscular Hemoglobin Concent 32.0 G/DL (32.0-36.0) Red Cell Distribution Width 19.5 % (11.6-14.8) H Platelet Count 117 K/UL (150-450) L Mean Platelet Volume 7.0 FL (6.5-10.1) Neutrophils (%) (Auto) 75.0 % (45.0-75.0) Lymphocytes (%) (Auto) 15.5 % (20.0-45.0) L Monocytes (%) (Auto) 6.5 % (1.0-10.0) Eosinophils (%) (Auto) 1.4 % (0.0-3.0) Basophils (%) (Auto) 1.6 % (0.0-2.0) Sodium Level 138 MMOL/L (136-145) Potassium Level 3.7 MMOL/L (3.5-5.1) Chloride Level 94 MMOL/L (98-107) L Carbon Dioxide Level 34 MMOL/L (21-32) H Anion Gap 10 mmol/L (5-15) Blood Urea Nitrogen 49 mg/dL (7-18) H Creatinine 8.5 MG/DL (0.55-1.30) H Estimat Glomerular Filtration Rate 6.4 mL/min (>60) Glucose Level 95 MG/DL (74-106) Calcium Level 8.7 MG/DL (8.5-10.1) Phosphorus Level 6.4 MG/DL (2.5-4.9) H Magnesium Level 2.1 MG/DL (1.8-2.4) Total Bilirubin 0.9 MG/DL (0.2-1.0) Aspartate Amino Transf (AST/SGOT) 15 U/L (15-37) Alanine Aminotransferase (ALT/SGPT) 7 U/L (12-78) L Alkaline Phosphatase 374 U/L (46-116) H C-Reactive Protein, Quantitative 5.7 mg/dL (0.00-0.90) H Pro-B-Type Natriuretic Peptide 59118 pg/mL (0-125) H Total Protein 7.2 G/DL (6.4-8.2) Albumin 2.7 G/DL (3.4-5.0) L Globulin 4.5 g/dL Albumin/Globulin Ratio 0.6 (1.0-2.7) L Current Medications Medications (Trade) Dose Ordered Sig/Blessing Route PRN Reason Start Time Stop Time Status Last Admin Dose Admin Acetaminophen (Tylenol) 500 mg 3XW PRN ORAL WITH DIALYSIS 03/13/18 09:00 04/08/18 19:23 Acetaminophen (Tylenol) 650 mg Q4H PRN RECTAL Mild Pain/Temp > 100.5 03/12/18 19:30 04/07/18 19:23 Acetaminophen (Tylenol) 650 mg Q6H PRN ORAL Mild Pain/Temp > 100.5 03/12/18 19:30 04/08/18 19:23 Calcium Acetate (Phoslo) 1,334 mg TIAC ORAL 03/12/18 16:30 04/09/18 11:29 03/13/18 05:30 Ceftaroline Fosamil 200 mg/ Sodium Chloride 110 ml @ 110 mls/hr Q12H IVPB 03/12/18 21:30 03/16/18 23:59 03/13/18 09:22 Chlorhexidine Gluconate (Miriam-Hex 2%) 1 applic DAILY@2000 TOPIC 03/12/18 20:00 04/07/18 20:59 03/12/18 20:31 Clonidine HCl (Catapres Tab) 0.1 mg Q4H PRN ORAL FOR SBP > 160. 03/12/18 19:30 04/07/18 19:23 Daptomycin 450 mg/ Sodium Chloride 110 ml @ 200 mls/hr Q48H IV 03/13/18 20:00 03/14/18 23:59 Diphenhydramine HCl (Benadryl) 50 mg Q6H PRN ORAL Itching 03/12/18 19:30 04/08/18 19:23 Docusate Sodium (Colace) 100 mg THREE TIMES A DAY ORAL 03/12/18 18:00 04/09/18 12:59 03/13/18 13:40 Epoetin Alfonzo (Procrit (for ESRD on dialysis)) 10,000 units SUN-SUN-SUN SUBQ 03/13/18 21:00 03/27/18 20:59 Haloperidol Lactate (Haldol) 5 mg Q4H PRN IM AGITATION 03/12/18 19:30 03/25/18 19:23 Lansoprazole (Prevacid) 30 mg DAILY@0730 ORAL 03/13/18 07:30 03/31/18 07:29 03/13/18 08:45 Oxycodone/ Acetaminophen (Percocet 10/325) 1 tab Q4H PRN ORAL Severe Pain (Pain Scale 7-10) 03/12/18 17:00 03/15/18 16:59 03/13/18 13:45 Prochlorperazine (Compazine) 10 mg Q6H PRN IVP Nausea & Vomiting 03/12/18 19:30 03/25/18 19:24 Quetiapine Fumarate (SEROquel) 25 mg QHS ORAL 03/12/18 21:00 03/25/18 21:59 03/12/18 20:30 Sevelamer Carbonate (Renvela) 2,400 mg QID ORAL 03/12/18 18:00 04/01/18 07:29 03/13/18 13:40 Latosha Contreras M.D. March 13, 2018 17:09
[2018-03-13] MEDS ORDERED: NS IV SCH (20:00)
[2018-03-13] MEDS ORDERED: DAPTOMYCIN IV SCH (20:00)
--- NOTE | 2018-03-13 20:26 | General Progress Note ---
Assessment/Plan Assessment/Plan (1) Right hip pain (2) Right hip Fracture (3) S/p ORIF of right hip Pt will be continued on Percocet HOLD OPIOIDS FOR OVERSEDATION OR SBP<90 OR DBP<60 OR O2SAT<92% OR RR<12 D/w Dr. Childers he concurred. Subjective Date patient seen: March 13, 2018 Time patient seen: 07:30 - pm Allergies: Coded Allergies: No Known Allergies (Unverified , 02/02/18) Subjective Constitutional: Reports: weakness HEENT: Reports: no symptoms Cardiovascular: Reports: no symptoms Respiratory: Reports: shortness of breath Gastrointestinal/Abdominal: Reports: no symptoms Genitourinary: Reports: no symptoms Neurologic/Psychiatric: Reports: weakness Endocrine: Reports: no symptoms Hematologic/Lymphatic: Reports: no symptoms Subjective Patient is comfortable in bed no signs of pain. Has used one dose of Percocet in the last 24hrs. Objective Last 24 Hour Vital Signs Date Time Temp Pulse Resp B/P (MAP) Pulse Ox O2 Delivery O2 Flow Rate FiO2 03/13/18 16:00 97.9 80 18 128/71 96 Nasal Cannula 2.5 97.9 03/13/18 15:52 Nasal Cannula 2.5 03/13/18 15:47 97.0 71 12 124/61 Nasal Cannula 2.5 97.0 03/13/18 12:00 96.8 65 12 164/78 Nasal Cannula 2.5 96.8 03/13/18 12:00 97.6 66 18 150/78 97 97.6 03/13/18 12:00 Nasal Cannula 2.5 03/13/18 08:00 98.3 79 18 132/70 97 98.3 03/13/18 04:00 97.3 78 19 137/68 98 97.3 03/13/18 00:00 97.4 65 19 159/77 97 97.4 Intake and Output 03/12/18 03/13/18 19:00 07:00 Intake Total 380 ml Balance 380 ml Intake Oral 380 ml # Voids 2 Laboratory Tests 03/13/18 06:40: White Blood Count 4.4L, Red Blood Count 3.21L, Hemoglobin 9.8L, Hematocrit 30.5L , Mean Corpuscular Volume 95, Mean Corpuscular Hemoglobin 30.4, Mean Corpuscular Hemoglobin Concent 32.0, Red Cell Distribution Width 19.5H, Platelet Count 117L, Mean Platelet Volume 7.0, Neutrophils (%) (Auto) 75.0, Lymphocytes (%) (Auto) 15.5L, Monocytes (%) (Auto) 6.5, Eosinophils (%) (Auto) 1.4, Basophils (%) (Auto) 1.6, Sodium Level 138, Potassium Level 3.7, Chloride Level 94L, Carbon Dioxide Level 34H, Anion Gap 10, Blood Urea Nitrogen 49H, Creatinine 8.5H, Estimat Glomerular Filtration Rate 6.4, Glucose Level 95, Calcium Level 8.7, Phosphorus Level 6.4H, Magnesium Level 2.1, Total Bilirubin 0.9, Aspartate Amino Transf (AST/SGOT) 15, Alanine Aminotransferase (ALT/SGPT) 7L, Alkaline Phosphatase 374H, C-Reactive Protein, Quantitative 5.7H, Pro-B- Type Natriuretic Peptide [id number], Total Protein 7.2, Albumin 2.7L, Globulin 4.5, Albumin/Globulin Ratio 0.6L Height (Feet): 5 Height (Inches): 7.00 Weight (Pounds): 141 Objective Neck: non-tender, normal alignment, supple, normal inspection Respiratory/Chest: decreased breath sounds Cardiovascular/Chest: normal rate, regular rhythm Abdomen: non tender, soft, no organomegaly Extremities: inflammation - right hip tenderness to palpation Skin Exam: normal pigmentation, warm/dry Kade Tomas March 13, 2018 20:26
[2018-03-13] MEDS: Dyna-Hex 2% Top Sol 2oz TOPIC SCH (20:36)
[2018-03-13] MEDS ORDERED: Epogen (for ESRD on dialysis) SUBQ SCH (21:00)
[2018-03-14] VITALS: BP 160/74
[2018-03-14 04:00] VITALS: BP 144/71
[2018-03-14] MEDS: Calcium Acetate 667mg Tab ORAL SCH ×3 (06:39→16:30)
[2018-03-14 07:56] VITALS: BP 129/65
[2018-03-14 08:18] LABS: BASOPHILS % (AUTO) 1.5 % (0.0-2.0); EOSINOPHILS % (AUTO) 1.7 % (0.0-3.0); HEMATOCRIT 29.1 % (42.0-52.0); HEMOGLOBIN 9.4 G/DL (14.2-18.0); LYMPHOCYTES % (AUTO) 15.4 % (20.0-45.0); MEAN CORPUSCULAR VOLUME 97 FL (80-99); MONOCYTES % (AUTO) 7.1 % (1.0-10.0); NEUTROPHILS % (AUTO) 74.2 % (45.0-75.0); PLATELET COUNT 116 K/UL (150-450); RED BLOOD COUNT 2.99 M/UL (4.70-6.10); WHITE BLOOD COUNT 5.1 K/UL (4.8-10.8)
[2018-03-14 08:19] LABS: ANION GAP 7 mmol/L (5-15); BLOOD UREA NITROGEN 32 mg/dL (7-18); CALCIUM 8.7 MG/DL (8.5-10.1); CARBON DIOXIDE 35 MMOL/L (21-32); CHLORIDE 93 MMOL/L (98-107); PHOSPHORUS 5.7 MG/DL (2.5-4.9); POTASSIUM 5.6 MMOL/L (3.5-5.1); SODIUM 135 MMOL/L (136-145)
--- NOTE | 2018-03-14 08:21 | General Progress Note ---
Assessment/Plan Status: stable Assessment/Plan #. Acute deep venous thrombosis of left lower extremity. --> Status post inferior vena cava filter placement. --> given low h/h monitor closely if any bleed and ivc should hold off further PEs --> hold off on further anticoagulation given low h/h #. Anemia of gastrointestinal bleed. --> transfuse if hgb <7, workup has been reviewed --> Appreciate gi recs, has been seen by them --> had endoscopy but location unknown where he had it #. Thrombocytopenia baseline likely plt count of >50-100k, chronic --> likely related to splenomegaly and hepatitis C --> monitor closely for bleed if downtrends though this is less likely --> transfuse to keep plt >20k # Numerous small to borderline mediastinal and bilateral axillary lymph nodes. Prominent subcarinal lymph node. Meet pathological size. Imaging has been reviewed for the last two CAT scans --> further recs per pulm in regards to management, reimaging in future, versus more interventional such as biopsy --> appreciate pulm/cc recommendations #. 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 Anemia of chronic disease is s/p blood transfusion. #. End-stage renal disease, hemodialysis dependent. --> epo to continue 3x a week #. Leukocytosis -- potentially due to right avf infection --> wbc scan shows a Small focus of uptake within the lower part of the right upper arm consistent with infection. Findings may represent cellulitis, phlegmon or abscess. Correlate clinically. The patient has an arteriovenous fistula in this location. #. History of femoral neck fracture. On pain control. #. Acute respiratory failure. #. Hep C ++ Subjective Date patient seen: March 14, 2018 Allergies: Coded Allergies: No Known Allergies (Unverified , 02/02/18) All Systems: reviewed and negative except above Subjective Pt is seen resting in bed, with sitter at bedside. No sob, fever, chills. Objective Last 24 Hour Vital Signs Date Time Temp Pulse Resp B/P (MAP) Pulse Ox O2 Delivery O2 Flow Rate FiO2 03/14/18 07:56 98.0 63 21 129/65 98 Nasal Cannula 2.0 98.0 03/14/18 04:00 98.0 67 20 144/71 94 Nasal Cannula 2.5 98.0 5/31/18 00:17 160/74 03/14/18 00:00 98.2 78 20 160/74 98 Nasal Cannula 2.5 98.2 03/13/18 20:00 97.9 72 22 151/73 98 Nasal Cannula 2.5 97.9 03/13/18 16:00 97.9 80 18 128/71 96 Nasal Cannula 2.5 97.9 03/13/18 15:52 Nasal Cannula 2.5 03/13/18 15:47 97.0 71 12 124/61 Nasal Cannula 2.5 97.0 03/13/18 12:00 96.8 65 12 164/78 Nasal Cannula 2.5 96.8 03/13/18 12:00 97.6 66 18 150/78 97 97.6 03/13/18 12:00 Nasal Cannula 2.5 Intake and Output 03/13/18 03/14/18 19:00 07:00 Intake Total 240 ml 300 ml Output Total 1555 ml Balance -1315 ml 300 ml Intake Oral 240 ml 300 ml Hemodialysis UF 1555 ml Laboratory Tests 03/14/18 07:35: White Blood Count [Pending], Red Blood Count [Pending], Hemoglobin [Pending], Hematocrit [Pending], Mean Corpuscular Volume [Pending], Mean Corpuscular Hemoglobin [Pending], Mean Corpuscular Hemoglobin Concent [Pending], Red Cell Distribution Width [Pending], Platelet Count [Pending], Mean Platelet Volume [ Pending], Neutrophils (%) (Auto) [Pending], Lymphocytes (%) (Auto) [Pending], Monocytes (%) (Auto) [Pending], Eosinophils (%) (Auto) [Pending], Basophils (%) (Auto) [Pending], Sodium Level [Pending], Potassium Level [Pending], Chloride Level [Pending], Carbon Dioxide Level [Pending], Blood Urea Nitrogen [Pending], Creatinine [Pending], Estimat Glomerular Filtration Rate [Pending], Glucose Level [Pending], Calcium Level [Pending], Phosphorus Level [Pending], Magnesium Level [Pending] Height (Feet): 5 Height (Inches): 7.00 Weight (Pounds): 146 General Appearance: no apparent distress EENT: normal ENT inspection Neck: supple Cardiovascular: normal rate Respiratory/Chest: no respiratory distress Abdomen: soft Tristen Lewis MD March 14, 2018 08:21
--- NOTE | 2018-03-14 08:56 | General Progress Note ---
Assessment/Plan Assessment/Plan (1) Right hip pain (2) Right hip Fracture (3) S/p ORIF of right hip Pt will be continued on Percocet HOLD OPIOIDS FOR OVERSEDATION OR SBP<90 OR DBP<60 OR O2SAT<92% OR RR<12 D/w Dr. Childers he concurred. Subjective Date patient seen: March 14, 2018 Time patient seen: 07:30 - am Allergies: Coded Allergies: No Known Allergies (Unverified , 02/02/18) Subjective Constitutional: Reports: weakness HEENT: Reports: no symptoms Cardiovascular: Reports: no symptoms Respiratory: Reports: shortness of breath Gastrointestinal/Abdominal: Reports: no symptoms Genitourinary: Reports: no symptoms Neurologic/Psychiatric: Reports: weakness Endocrine: Reports: no symptoms Hematologic/Lymphatic: Reports: no symptoms Subjective Patient has no signs of pain or distress is tolerating the pain on the Percocet which he had received 2 doses of. He has no new complaints. Objective Last 24 Hour Vital Signs Date Time Temp Pulse Resp B/P (MAP) Pulse Ox O2 Delivery O2 Flow Rate FiO2 03/14/18 07:56 98.0 63 21 129/65 98 Nasal Cannula 2.0 98.0 03/14/18 04:00 98.0 67 20 144/71 94 Nasal Cannula 2.5 98.0 03/14/18 00:17 160/74 03/14/18 00:00 98.2 78 20 160/74 98 Nasal Cannula 2.5 98.2 03/13/18 20:00 97.9 72 22 151/73 98 Nasal Cannula 2.5 97.9 03/13/18 16:00 97.9 80 18 128/71 96 Nasal Cannula 2.5 97.9 03/13/18 15:52 Nasal Cannula 2.5 03/13/18 15:47 97.0 71 12 124/61 Nasal Cannula 2.5 97.0 03/13/18 12:00 96.8 65 12 164/78 Nasal Cannula 2.5 96.8 03/13/18 12:00 97.6 66 18 150/78 97 97.6 03/13/18 12:00 Nasal Cannula 2.5 Intake and Output 03/13/18 03/14/18 19:00 07:00 Intake Total 240 ml 300 ml Output Total 1555 ml Balance -1315 ml 300 ml Intake Oral 240 ml 300 ml Hemodialysis UF 1555 ml Laboratory Tests 03/14/18 07:35: White Blood Count 5.1, Red Blood Count 2.99L, Hemoglobin 9.4L, Hematocrit 29.1L , Mean Corpuscular Volume 97, Mean Corpuscular Hemoglobin 31.5H, Mean Corpuscular Hemoglobin Concent 32.5, Red Cell Distribution Width 20.0H, Platelet Count 116L, Mean Platelet Volume 6.5, Neutrophils (%) (Auto) 74.2, Lymphocytes (%) (Auto) 15.4L, Monocytes (%) (Auto) 7.1, Eosinophils (%) (Auto) 1.7, Basophils (%) (Auto) 1.5, Sodium Level 135L, Potassium Level 5.6#H, Chloride Level 93L, Carbon Dioxide Level 35H, Anion Gap 7, Blood Urea Nitrogen 32H, Creatinine 6.0H, Estimat Glomerular Filtration Rate 9.5, Glucose Level 88, Calcium Level 8.7, Phosphorus Level 5.7H, Magnesium Level 2.2 Height (Feet): 5 Height (Inches): 7.00 Weight (Pounds): 146 Objective Neck: non-tender, normal alignment, supple, normal inspection Respiratory/Chest: decreased breath sounds Cardiovascular/Chest: normal rate, regular rhythm Abdomen: non tender, soft, no organomegaly Extremities: inflammation - right hip tenderness to palpation Skin Exam: normal pigmentation, warm/dry Kade Tomas March 14, 2018 08:56
[2018-03-14] MEDS: Docusate 100mg cap ORAL SCH ×3 (09:08→18:00)
--- NOTE | 2018-03-14 11:00 | GI Progress Note ---
Assessment/Plan Problems: (1) Abnormal LFTs ICD Codes: R94.5 - Abnormal results of liver function studies SNOMED: 186476418 (2) Symptomatic anemia ICD Codes: D64.9 - Anemia, unspecified SNOMED: 493050422 (3) ESRD (end stage renal disease) on dialysis ICD Codes: N18.6 - End stage renal disease; Z99.2 - Dependence on renal dialysis SNOMED: 669795265 Status: stable Status Narrative Discussed with Dr. Matos. Assessment/Plan iron panel WNL OB stool negative x3 Hep C positive >> outpatient treatment SUMMARY OF FINDINGS: 1. Duodenitis. 2. Gastritis. 3. Gastric polyp about 8 mm removed with the snare polypectomy technique. RECOMMENDATIONS: s/p AMAURI Follow up biopsies and treat accordingly. >> gastric xanthoma fu nephro recs monitor H&H, prn transfusions ppi thiamine fu labs dc planning The patient was seen and examined at bedside and all new and available data was reviewed in the patients chart. I agree with the above findings, impression and plan. (Patient seen earlier today. Signature stamp does not reflect patient encounter time.). - Tushar Matos MD Subjective Subjective denies abdominal pain Objective Last 24 Hour Vital Signs Date Time Temp Pulse Resp B/P (MAP) Pulse Ox O2 Delivery O2 Flow Rate FiO2 03/14/18 07:56 98.0 63 21 129/65 98 Nasal Cannula 2.0 98.0 03/14/18 04:00 98.0 67 20 144/71 94 Nasal Cannula 2.5 98.0 03/14/18 00:17 160/74 03/14/18 00:00 98.2 78 20 160/74 98 Nasal Cannula 2.5 98.2 03/13/18 20:00 97.9 72 22 151/73 98 Nasal Cannula 2.5 97.9 03/13/18 16:00 97.9 80 18 128/71 96 Nasal Cannula 2.5 97.9 03/13/18 15:52 Nasal Cannula 2.5 03/13/18 15:47 97.0 71 12 124/61 Nasal Cannula 2.5 97.0 03/13/18 12:00 96.8 65 12 164/78 Nasal Cannula 2.5 96.8 03/13/18 12:00 97.6 66 18 150/78 97 97.6 03/13/18 12:00 Nasal Cannula 2.5 Intake and Output 03/13/18 03/14/18 19:00 07:00 Intake Total 240 ml 300 ml Output Total 1555 ml Balance -1315 ml 300 ml Intake Oral 240 ml 300 ml Hemodialysis UF 1555 ml Laboratory Tests Test 03/14/18 07:35 White Blood Count 5.1 K/UL (4.8-10.8) Red Blood Count 2.99 M/UL (4.70-6.10) L Hemoglobin 9.4 G/DL (14.2-18.0) L Hematocrit 29.1 % (42.0-52.0) L Mean Corpuscular Volume 97 FL (80-99) Mean Corpuscular Hemoglobin 31.5 PG (27.0-31.0) H Mean Corpuscular Hemoglobin Concent 32.5 G/DL (32.0-36.0) Red Cell Distribution Width 20.0 % (11.6-14.8) H Platelet Count 116 K/UL (150-450) L Mean Platelet Volume 6.5 FL (6.5-10.1) Neutrophils (%) (Auto) 74.2 % (45.0-75.0) Lymphocytes (%) (Auto) 15.4 % (20.0-45.0) L Monocytes (%) (Auto) 7.1 % (1.0-10.0) Eosinophils (%) (Auto) 1.7 % (0.0-3.0) Basophils (%) (Auto) 1.5 % (0.0-2.0) Sodium Level 135 MMOL/L (136-145) L Potassium Level 5.6 MMOL/L (3.5-5.1) #H Chloride Level 93 MMOL/L (98-107) L Carbon Dioxide Level 35 MMOL/L (21-32) H Anion Gap 7 mmol/L (5-15) Blood Urea Nitrogen 32 mg/dL (7-18) H Creatinine 6.0 MG/DL (0.55-1.30) H Estimat Glomerular Filtration Rate 9.5 mL/min (>60) Glucose Level 88 MG/DL (74-106) Calcium Level 8.7 MG/DL (8.5-10.1) Phosphorus Level 5.7 MG/DL (2.5-4.9) H Magnesium Level 2.2 MG/DL (1.8-2.4) Height (Feet): 5 Height (Inches): 7.00 Weight (Pounds): 146 General Appearance: WD/WN, no apparent distress, alert Cardiovascular: normal rate Respiratory/Chest: normal breath sounds, no respiratory distress Abdominal Exam: normal bowel sounds, non tender, soft Extremities: normal range of motion, non-tender Meliton Aldana NP March 14, 2018 11:00
[2018-03-14] MEDS: LORazepam 1mg tab ORAL PRN (11:45)
[2018-03-14 12:00] VITALS: BP 119/70
--- NOTE | 2018-03-14 12:43 | Nephrology Progress Note ---
Assessment/Plan Problem List: (1) ESRD (end stage renal disease) on dialysis (2) Acute hyperkalemia (3) Hypertension, uncontrolled (4) Left leg DVT (5) Anemia in chronic kidney disease (CKD) Assessment due dialysis today Post removal of infected fistula infected right arm fistula BP stable stop mind altering meds ESRD, on admission missed dialysis . has high K on admission has fistula right arm Sever Anemia h/o Amyloidosis COPD Plan increase phos binders removal of fistula,03/08 placement of permacath HD as needed next 03/13 stop BP meds- on PRN clonidine only Transfusion as needed Kayexelate as needed BP control, meds adjusted has IVC filter add phos binders Subjective ROS Limited/Unobtainable: No Objective Objective Last 24 Hour Vital Signs Date Time Temp Pulse Resp B/P (MAP) Pulse Ox O2 Delivery O2 Flow Rate FiO2 03/14/18 12:00 97.3 80 21 119/70 97 Room Air 97.3 03/14/18 07:56 98.0 63 21 129/65 98 Nasal Cannula 2.0 98.0 03/14/18 04:00 98.0 67 20 144/71 94 Nasal Cannula 2.5 98.0 03/14/18 00:17 160/74 03/14/18 00:00 98.2 78 20 160/74 98 Nasal Cannula 2.5 98.2 03/13/18 20:00 97.9 72 22 151/73 98 Nasal Cannula 2.5 97.9 03/13/18 16:00 97.9 80 18 128/71 96 Nasal Cannula 2.5 97.9 03/13/18 15:52 Nasal Cannula 2.5 03/13/18 15:47 97.0 71 12 124/61 Nasal Cannula 2.5 97.0 Intake and Output 03/13/18 03/14/18 19:00 07:00 Intake Total 240 ml 300 ml Output Total 1555 ml Balance -1315 ml 300 ml Intake Oral 240 ml 300 ml Hemodialysis UF 1555 ml Laboratory Tests 03/14/18 07:35: White Blood Count 5.1, Red Blood Count 2.99L, Hemoglobin 9.4L, Hematocrit 29.1L , Mean Corpuscular Volume 97, Mean Corpuscular Hemoglobin 31.5H, Mean Corpuscular Hemoglobin Concent 32.5, Red Cell Distribution Width 20.0H, Platelet Count 116L, Mean Platelet Volume 6.5, Neutrophils (%) (Auto) 74.2, Lymphocytes (%) (Auto) 15.4L, Monocytes (%) (Auto) 7.1, Eosinophils (%) (Auto) 1.7, Basophils (%) (Auto) 1.5, Sodium Level 135L, Potassium Level 5.6#H, Chloride Level 93L, Carbon Dioxide Level 35H, Anion Gap 7, Blood Urea Nitrogen 32H, Creatinine 6.0H, Estimat Glomerular Filtration Rate 9.5, Glucose Level 88, Calcium Level 8.7, Phosphorus Level 5.7H, Magnesium Level 2.2 Height (Feet): 5 Height (Inches): 7.00 Weight (Pounds): 146 General Appearance: no apparent distress Objective no change DALTON ROSENTHAL March 14, 2018 12:43
--- NOTE | 2018-03-14 13:06 | General Progress Note ---
Assessment/Plan Problem List: (1) Abnormal laboratory test result ICD Codes: R89.9 - Unspecified abnormal finding in specimens from other organs , systems and tissues SNOMED: 184366694 (2) ESRD (end stage renal disease) on dialysis ICD Codes: N18.6 - End stage renal disease; Z99.2 - Dependence on renal dialysis SNOMED: 081644039 (3) Hypertension, uncontrolled ICD Codes: I10 - Essential (primary) hypertension SNOMED: 03746104, 55837080 (4) Symptomatic anemia ICD Codes: D64.9 - Anemia, unspecified SNOMED: 817373103 (5) Acute hyperkalemia ICD Codes: E87.5 - Hyperkalemia SNOMED: 7287997 (6) DVT (deep venous thrombosis) ICD Codes: I82.409 - Acute embolism and thrombosis of unspecified deep veins of unspecified lower extremity SNOMED: 597575412 (7) SOB (shortness of breath) ICD Codes: R06.02 - Shortness of breath SNOMED: 523238366 (8) Respiratory failure ICD Codes: J96.90 - Respiratory failure, unspecified, unspecified whether with hypoxia or hypercapnia SNOMED: 859766543 Status: stable, progressing Assessment/Plan ot pt diet o2 pulm tx gi/heme f/u anticoag pulm transfuse prn cbc bmp am shunt f /u dc plan snf Subjective Constitutional: Reports: weakness Allergies: Coded Allergies: No Known Allergies (Unverified , 02/02/18) All Systems: reviewed and negative except above Subjective sleepy calm Objective Last 24 Hour Vital Signs Date Time Temp Pulse Resp B/P (MAP) Pulse Ox O2 Delivery O2 Flow Rate FiO2 03/14/18 12:00 97.3 80 21 119/70 97 Room Air 97.3 03/14/18 07:56 98.0 63 21 129/65 98 Nasal Cannula 2.0 98.0 03/14/18 04:00 98.0 67 20 144/71 94 Nasal Cannula 2.5 98.0 03/14/18 00:17 160/74 03/14/18 00:00 98.2 78 20 160/74 98 Nasal Cannula 2.5 98.2 03/13/18 20:00 97.9 72 22 151/73 98 Nasal Cannula 2.5 97.9 03/13/18 16:00 97.9 80 18 128/71 96 Nasal Cannula 2.5 97.9 03/13/18 15:52 Nasal Cannula 2.5 03/13/18 15:47 97.0 71 12 124/61 Nasal Cannula 2.5 97.0 Intake and Output 03/13/18 03/14/18 19:00 07:00 Intake Total 240 ml 300 ml Output Total 1555 ml Balance -1315 ml 300 ml Intake Oral 240 ml 300 ml Hemodialysis UF 1555 ml Laboratory Tests 03/14/18 07:35: White Blood Count 5.1, Red Blood Count 2.99L, Hemoglobin 9.4L, Hematocrit 29.1L , Mean Corpuscular Volume 97, Mean Corpuscular Hemoglobin 31.5H, Mean Corpuscular Hemoglobin Concent 32.5, Red Cell Distribution Width 20.0H, Platelet Count 116L, Mean Platelet Volume 6.5, Neutrophils (%) (Auto) 74.2, Lymphocytes (%) (Auto) 15.4L, Monocytes (%) (Auto) 7.1, Eosinophils (%) (Auto) 1.7, Basophils (%) (Auto) 1.5, Sodium Level 135L, Potassium Level 5.6#H, Chloride Level 93L, Carbon Dioxide Level 35H, Anion Gap 7, Blood Urea Nitrogen 32H, Creatinine 6.0H, Estimat Glomerular Filtration Rate 9.5, Glucose Level 88, Calcium Level 8.7, Phosphorus Level 5.7H, Magnesium Level 2.2 Height (Feet): 5 Height (Inches): 7.00 Weight (Pounds): 146 General Appearance: lethargic EENT: normal ENT inspection Neck: normal alignment Cardiovascular: normal peripheral pulses, normal rate, regular rhythm Respiratory/Chest: chest wall non-tender, lungs clear, normal breath sounds Abdomen: normal bowel sounds, non tender, soft Extremities: normal inspection Edema: no edema noted Arm (L), no edema noted Arm (R), no edema noted Leg (L), no edema noted Leg (R), no edema noted Pedal (L), no edema noted Pedal (R), no edema noted Generalized Neurologic: motor weakness Skin: normal pigmentation, warm/dry JamisonLebron Jara DO March 14, 2018 13:06
--- NOTE | 2018-03-14 14:01 | Pulmonology Progress Note ---
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 titrate fio2 to sat of 92% check Hemoglobin, remains around 7 all meds reviewed Subjective ROS Limited/Unobtainable: No Constitutional: Reports: no symptoms HEENT: Repors: no symptoms Respiratory: Reports: no symptoms Allergies: Coded Allergies: No Known Allergies (Unverified , 02/02/18) Objective Last 24 Hour Vital Signs Date Time Temp Pulse Resp B/P (MAP) Pulse Ox O2 Delivery O2 Flow Rate FiO2 03/14/18 12:00 97.3 80 21 119/70 97 Room Air 97.3 03/14/18 07:56 98.0 63 21 129/65 98 Nasal Cannula 2.0 98.0 03/14/18 04:00 98.0 67 20 144/71 94 Nasal Cannula 2.5 98.0 03/14/18 00:17 160/74 03/14/18 00:00 98.2 78 20 160/74 98 Nasal Cannula 2.5 98.2 03/13/18 20:00 97.9 72 22 151/73 98 Nasal Cannula 2.5 97.9 03/13/18 16:00 97.9 80 18 128/71 96 Nasal Cannula 2.5 97.9 03/13/18 15:52 Nasal Cannula 2.5 03/13/18 15:47 97.0 71 12 124/61 Nasal Cannula 2.5 97.0 Intake and Output 03/13/18 03/14/18 19:00 07:00 Intake Total 240 ml 300 ml Output Total 1555 ml Balance -1315 ml 300 ml Intake Oral 240 ml 300 ml Hemodialysis UF 1555 ml Objective General Appearance: WD/WN HEENT: normocephalic, atraumatic Respiratory/Chest: chest wall non-tender, lungs clear Cardiovascular: normal peripheral pulses, normal rate, regular rhythm Abdomen: normal bowel sounds, soft, non tender, no organomegaly, non distended Extremities: no cyanosis, no clubbing, no edema Skin: no rash, no lesions Neurologic/Psychiatric: bisque grader II-XII grossly normal Laboratory Tests 03/14/18 07:35: White Blood Count 5.1, Red Blood Count 2.99L, Hemoglobin 9.4L, Hematocrit 29.1L , Mean Corpuscular Volume 97, Mean Corpuscular Hemoglobin 31.5H, Mean Corpuscular Hemoglobin Concent 32.5, Red Cell Distribution Width 20.0H, Platelet Count 116L, Mean Platelet Volume 6.5, Neutrophils (%) (Auto) 74.2, Lymphocytes (%) (Auto) 15.4L, Monocytes (%) (Auto) 7.1, Eosinophils (%) (Auto) 1.7, Basophils (%) (Auto) 1.5, Sodium Level 135L, Potassium Level 5.6#H, Chloride Level 93L, Carbon Dioxide Level 35H, Anion Gap 7, Blood Urea Nitrogen 32H, Creatinine 6.0H, Estimat Glomerular Filtration Rate 9.5, Glucose Level 88, Calcium Level 8.7, Phosphorus Level 5.7H, Magnesium Level 2.2 Current Medications Medications (Trade) Dose Ordered Sig/Blessing Route PRN Reason Start Time Stop Time Status Last Admin Dose Admin Acetaminophen (Tylenol) 500 mg 3XW PRN ORAL WITH DIALYSIS 03/13/18 09:00 04/08/18 19:23 Acetaminophen (Tylenol) 650 mg Q4H PRN RECTAL Mild Pain/Temp > 100.5 03/12/18 19:30 04/07/18 19:23 Acetaminophen (Tylenol) 650 mg Q6H PRN ORAL Mild Pain/Temp > 100.5 03/12/18 19:30 04/08/18 19:23 Calcium Acetate (Phoslo) 1,334 mg TIAC ORAL 03/12/18 16:30 04/09/18 11:29 03/14/18 11:45 Ceftaroline Fosamil 200 mg/ Sodium Chloride 110 ml @ 110 mls/hr Q12H IVPB 03/14/18 12:30 03/16/18 23:59 Chlorhexidine Gluconate (Miriam-Hex 2%) 1 applic DAILY@2000 TOPIC 03/12/18 20:00 04/07/18 20:59 03/13/18 20:36 Clonidine HCl (Catapres Tab) 0.1 mg Q4H PRN ORAL FOR SBP > 160. 03/12/18 19:30 04/07/18 19:23 03/14/18 00:17 Daptomycin 450 mg/ Sodium Chloride 110 ml @ 200 mls/hr Q48H IV 03/13/18 20:00 03/14/18 23:59 03/13/18 21:46 Diphenhydramine HCl (Benadryl) 50 mg Q6H PRN ORAL Itching 03/12/18 19:30 04/08/18 19:23 Docusate Sodium (Colace) 100 mg THREE TIMES A DAY ORAL 03/12/18 18:00 04/09/18 12:59 03/14/18 09:08 Epoetin Alfonzo (Procrit (for ESRD on dialysis)) 10,000 units SUN-SUN-SUN SUBQ 03/13/18 21:00 03/27/18 20:59 03/13/18 21:46 Haloperidol Lactate (Haldol) 5 mg Q4H PRN IM AGITATION 03/12/18 19:30 03/25/18 19:23 Lansoprazole (Prevacid) 30 mg DAILY@0730 ORAL 03/13/18 07:30 03/31/18 07:29 03/14/18 06:40 Lorazepam (Ativan) 1 mg Q6H PRN ORAL For Anxiety 03/14/18 11:15 03/21/18 11:14 03/14/18 11:45 Oxycodone/ Acetaminophen (Percocet 10/325) 1 tab Q4H PRN ORAL Severe Pain (Pain Scale 7-10) 03/13/18 21:00 03/16/18 20:59 03/14/18 04:30 Prochlorperazine (Compazine) 10 mg Q6H PRN IVP Nausea & Vomiting 03/12/18 19:30 03/25/18 19:24 Quetiapine Fumarate (SEROquel) 25 mg QHS ORAL 03/12/18 21:00 03/25/18 21:59 03/13/18 21:34 Risperidone (RisperDAL) 1 mg Q6H PRN ORAL Agitation 03/14/18 11:15 04/13/18 11:14 03/14/18 11:44 Risperidone (RisperDAL) 1 mg TID ORAL 03/14/18 13:00 04/13/18 12:59 Sevelamer Carbonate (Renvela) 2,400 mg TIPC ORAL 03/14/18 13:00 04/01/18 07:29 Clement Mcleod MD March 14, 2018 14:01
[2018-03-14] MEDS: NS IVPB SCH ×2 (15:02→21:05)
[2018-03-14] MEDS: CEFTAROLINE IVPB SCH ×2 (15:02→21:05)
--- NOTE | 2018-03-14 17:02 | Infectious Diseases Prog Note ---
Assessment/Plan Assessment/Plan ASSESSMENT: The patient is a 63-year-old male with, Fever, SP Persistent Bacteremia MRSA ( + on 02/22,, 18, 20, ; 03/09 Neg )- 2ry to R AVF infection -s/p Complete removal of right arm av graft, I&D right arm wound, Right proximal brachial artery to distal right brachial artery bypass (with reversed right basilic vein, Left IJ dialysis catheter with pigtail 03/08 - OR findings: no vegetation noted, significant pus drained around blistered AV graft -OR cx : MRSA -WBC scan: Small focus of uptake within the lower part of the right upper arm consistent with infection. Findings may represent cellulitis, phlegmon or abscess. Correlate clinically. The patient has an arteriovenous fistula in this location. -wound cx R arm (from AVF fistula)- MRSA -AMAURI- prelim report per cards- no vegetations -CT R ext w/: Limited exam due to motion. No fluid collection or other finding to suggest abscess. No findings to explain abnormality demonstrated on recent indium white cell scan. Patient right upper extremity brachiobasilic AV dialysis graft. Note some non flow-limiting mural thickening or thrombus is present -CT chest abd/p w/ 03/02: Bibasilar lung atelectasis and airspace opacities, worse in the right lower lobe, worrisome for pneumonia. Tiny bilateral pleural effusions. Numerous small to borderline mediastinal and bilateral axillary lymph nodes. Prominent subcarinal lymph node. Emphysema. Mild superior endplate compression deformities T4, T5, T6, T8, T10, T11, are age- indeterminate. Age-indeterminate vertical fracture through the mid L2 vertebral body with anterior wedge compression. 02/26 2DEcho limited , av and mv thickening but no Veg Leukocytosis ,resolved 02/06/ CT of chest [id number] : no evidence of pulmonary emboli, diffuse septal thickening, and bilateral ground glass opacities, and small bilateral pleural effusion. Neg : HIV , Hep panel gastrointestinal bleed : had endoscopy but location unknown 02/25 SP Lt IJ, s/p removal 03/06 ,c ath tip NTD Anemia. End-stage renal disease, on hemodialysis. Left leg DVT. Right hip fracture, status post ORIF. History of hepatitis C Splenomegaly. Status post IVC filter placement PLAN: -Continue IV Daptomycin 8mg/kg q 48hr and Ceftaroline ( AB Rx d# 18) due to persistent bacteremia; will need 6 weeks from 1st neg BCx on 03/09 - monitor CPK -upon discharge, regimen can be simplify to IV Vancomcyin with HD on HD days SP 03/04 IV Vancomycin #8 SP 02/26 Zyvox d# 1 ( pt now has IV Access ) Monitor CBC. Monitor BMP. Monitor blood cultures Monitor chest x-ray. Monitor vital signs wound care care was dw RN Subjective Allergies: Coded Allergies: No Known Allergies (Unverified , 02/02/18) Subjective afebrile no leukocytosis Bcx 03/09 NTD sp cx normal marj Objective Vital Signs Last 24 Hour Vital Signs Date Time Temp Pulse Resp B/P (MAP) Pulse Ox O2 Delivery O2 Flow Rate FiO2 03/14/18 12:00 97.3 80 21 119/70 97 Room Air 97.3 03/14/18 07:56 98.0 63 21 129/65 98 Nasal Cannula 2.0 98.0 03/14/18 04:00 98.0 67 20 144/71 94 Nasal Cannula 2.5 98.0 03/14/18 00:17 160/74 03/14/18 00:00 98.2 78 20 160/74 98 Nasal Cannula 2.5 98.2 03/13/18 20:00 97.9 72 22 151/73 98 Nasal Cannula 2.5 97.9 Height (Feet): 5 Height (Inches): 7.00 Weight (Pounds): 146 Objective General Appearance: no acute distress HEENT: normocephalic, atraumatic, anicteric Respiratory/Chest: chest wall non-tender, normal breath sounds, no respiratory distressp; temp HD cath Cardiovascular: normal peripheral pulses, normal rate, RUE bandage in place Abdomen: normal bowel sounds, soft, non tender Extremities: multiple tattoos BUE Neurologic/Psychiatric: awake, responsive Musculoskeletal: normal muscle bulk Laboratory Tests Test 03/14/18 07:35 White Blood Count 5.1 K/UL (4.8-10.8) Red Blood Count 2.99 M/UL (4.70-6.10) L Hemoglobin 9.4 G/DL (14.2-18.0) L Hematocrit 29.1 % (42.0-52.0) L Mean Corpuscular Volume 97 FL (80-99) Mean Corpuscular Hemoglobin 31.5 PG (27.0-31.0) H Mean Corpuscular Hemoglobin Concent 32.5 G/DL (32.0-36.0) Red Cell Distribution Width 20.0 % (11.6-14.8) H Platelet Count 116 K/UL (150-450) L Mean Platelet Volume 6.5 FL (6.5-10.1) Neutrophils (%) (Auto) 74.2 % (45.0-75.0) Lymphocytes (%) (Auto) 15.4 % (20.0-45.0) L Monocytes (%) (Auto) 7.1 % (1.0-10.0) Eosinophils (%) (Auto) 1.7 % (0.0-3.0) Basophils (%) (Auto) 1.5 % (0.0-2.0) Sodium Level 135 MMOL/L (136-145) L Potassium Level 5.6 MMOL/L (3.5-5.1) #H Chloride Level 93 MMOL/L (98-107) L Carbon Dioxide Level 35 MMOL/L (21-32) H Anion Gap 7 mmol/L (5-15) Blood Urea Nitrogen 32 mg/dL (7-18) H Creatinine 6.0 MG/DL (0.55-1.30) H Estimat Glomerular Filtration Rate 9.5 mL/min (>60) Glucose Level 88 MG/DL (74-106) Calcium Level 8.7 MG/DL (8.5-10.1) Phosphorus Level 5.7 MG/DL (2.5-4.9) H Magnesium Level 2.2 MG/DL (1.8-2.4) Current Medications Medications (Trade) Dose Ordered Sig/Blessing Route PRN Reason Start Time Stop Time Status Last Admin Dose Admin Acetaminophen (Tylenol) 500 mg 3XW PRN ORAL WITH DIALYSIS 03/13/18 09:00 04/08/18 19:23 Acetaminophen (Tylenol) 650 mg Q4H PRN RECTAL Mild Pain/Temp > 100.5 03/12/18 19:30 04/07/18 19:23 Acetaminophen (Tylenol) 650 mg Q6H PRN ORAL Mild Pain/Temp > 100.5 03/12/18 19:30 04/08/18 19:23 Calcium Acetate (Phoslo) 1,334 mg TIAC ORAL 03/12/18 16:30 04/09/18 11:29 03/14/18 11:45 Ceftaroline Fosamil 200 mg/ Sodium Chloride 110 ml @ 110 mls/hr Q12H IVPB 03/14/18 12:30 03/16/18 23:59 03/14/18 15:02 Chlorhexidine Gluconate (Miriam-Hex 2%) 1 applic DAILY@2000 TOPIC 03/12/18 20:00 04/07/18 20:59 03/13/18 20:36 Clonidine HCl (Catapres Tab) 0.1 mg Q4H PRN ORAL FOR SBP > 160. 03/12/18 19:30 04/07/18 19:23 03/14/18 00:17 Daptomycin 450 mg/ Sodium Chloride 110 ml @ 200 mls/hr Q48H IV 03/13/18 20:00 03/14/18 23:59 03/13/18 21:46 Diphenhydramine HCl (Benadryl) 50 mg Q6H PRN ORAL Itching 03/12/18 19:30 04/08/18 19:23 Docusate Sodium (Colace) 100 mg THREE TIMES A DAY ORAL 03/12/18 18:00 04/09/18 12:59 03/14/18 14:53 Epoetin Alfonzo (Procrit (for ESRD on dialysis)) 10,000 units SUN-SUN-SUN SUBQ 03/13/18 21:00 03/27/18 20:59 03/13/18 21:46 Haloperidol Lactate (Haldol) 5 mg Q4H PRN IM AGITATION 03/12/18 19:30 03/25/18 19:23 Lansoprazole (Prevacid) 30 mg DAILY@0730 ORAL 03/13/18 07:30 03/31/18 07:29 03/14/18 06:40 Lorazepam (Ativan) 1 mg Q6H PRN ORAL For Anxiety 03/14/18 11:15 03/21/18 11:14 03/14/18 11:45 Oxycodone/ Acetaminophen (Percocet 10/325) 1 tab Q4H PRN ORAL Severe Pain (Pain Scale 7-10) 03/13/18 21:00 03/16/18 20:59 03/14/18 04:30 Prochlorperazine (Compazine) 10 mg Q6H PRN IVP Nausea & Vomiting 03/12/18 19:30 03/25/18 19:24 Quetiapine Fumarate (SEROquel) 25 mg QHS ORAL 03/12/18 21:00 03/25/18 21:59 03/13/18 21:34 Risperidone (RisperDAL) 1 mg Q6H PRN ORAL Agitation 03/14/18 11:15 04/13/18 11:14 03/14/18 11:44 Risperidone (RisperDAL) 1 mg TID ORAL 03/14/18 13:00 04/13/18 12:59 03/14/18 14:54 Sevelamer Carbonate (Renvela) 2,400 mg TIPC ORAL 03/14/18 13:00 04/01/18 07:29 03/14/18 14:55 Latosha Contreras M.D. March 14, 2018 17:02
[2018-03-14 20:00] VITALS: BP 138/64
[2018-03-14] MEDS: Dyna-Hex 2% Top Sol 2oz TOPIC SCH (21:05)
[2018-03-15] VITALS: BP 143/73
[2018-03-15] MEDS: LORazepam 1mg tab ORAL PRN ×2 (02:39→14:10)
[2018-03-15 04:00] VITALS: BP 143/62
[2018-03-15] MEDS: Calcium Acetate 667mg Tab ORAL SCH ×3 (05:52→17:24)
[2018-03-15 08:00] VITALS: BP 132/55
[2018-03-15] MEDS: Docusate 100mg cap ORAL SCH ×3 (08:19→17:23)
--- NOTE | 2018-03-15 08:51 | General Progress Note ---
Assessment/Plan Assessment/Plan (1) Right hip pain (2) Right hip Fracture (3) S/p ORIF of right hip Pt will be continued on Percocet HOLD OPIOIDS FOR OVERSEDATION OR SBP<90 OR DBP<60 OR O2SAT<92% OR RR<12 D/w Dr. Childers he concurred. Subjective Date patient seen: Mar 15, 2018 Time patient seen: 08:15 - am Allergies: Coded Allergies: No Known Allergies (Unverified , 02/02/18) Subjective Constitutional: Reports: weakness HEENT: Reports: no symptoms Cardiovascular: Reports: no symptoms Respiratory: Reports: shortness of breath Gastrointestinal/Abdominal: Reports: no symptoms Genitourinary: Reports: no symptoms Neurologic/Psychiatric: Reports: weakness Endocrine: Reports: no symptoms Hematologic/Lymphatic: Reports: no symptoms Subjective In bed has no new complaints. Pain is at a moderate level on the Percocet having 2 doses given in last 24hrs. Objective Last 24 Hour Vital Signs Date Time Temp Pulse Resp B/P (MAP) Pulse Ox O2 Delivery O2 Flow Rate FiO2 03/15/18 08:00 97.9 65 18 132/55 98 Room Air 97.9 03/15/18 04:00 97.5 62 20 143/62 98 Nasal Cannula 2.0 97.5 03/15/18 00:00 98.1 69 20 143/73 97 Nasal Cannula 2.0 98.1 03/14/18 20:00 98.2 70 20 138/64 94 Nasal Cannula 2.0 98.2 03/14/18 12:00 97.3 80 21 119/70 97 Room Air 97.3 Intake and Output 03/14/18 03/15/18 19:00 07:00 Intake Total 240 ml 230 ml Output Total 0 ml Balance 240 ml 230 ml Intake Oral 240 ml 120 ml IV Total 110 ml Output Urine Total 0 ml Height (Feet): 5 Height (Inches): 7.00 Weight (Pounds): 145 Objective Neck: non-tender, normal alignment, supple, normal inspection Respiratory/Chest: decreased breath sounds Cardiovascular/Chest: normal rate, regular rhythm Abdomen: non tender, soft, no organomegaly Extremities: inflammation - right hip tenderness to palpation Skin Exam: normal pigmentation, warm/dry Kade Tomas Mar 15, 2018 08:51
--- NOTE | 2018-03-15 08:54 | General Progress Note ---
Assessment/Plan Assessment/Plan #. Acute deep venous thrombosis of left lower extremity. --> Status post inferior vena cava filter placement. --> given low h/h monitor closely if any bleed and ivc should hold off further PEs --> hold off on further anticoagulation given low h/h #. Anemia of kidney disease --> transfuse if hgb <7, workup has been reviewed --> Appreciate gi recs, has been seen by them --> had endoscopy but location unknown where he had it --> continue epogen 3x a week #. Thrombocytopenia baseline likely plt count of >50-100k, chronic --> likely related to splenomegaly and hepatitis C --> monitor closely for bleed if downtrends though this is less likely --> transfuse to keep plt >20k # Numerous small to borderline mediastinal and bilateral axillary lymph nodes. Prominent subcarinal lymph node. Meet pathological size. Imaging has been reviewed for the last two CAT scans --> further recs per pulm in regards to management, reimaging in future, versus more interventional such as biopsy --> appreciate pulm/cc recommendations #. Anemia of chronic disease is s/p blood transfusion. #. End-stage renal disease, hemodialysis dependent. --> epo to continue 3x a week #. Leukocytosis -- potentially due to right avf infection --> wbc scan shows a Small focus of uptake within the lower part of the right upper arm consistent with infection. Findings may represent cellulitis, phlegmon or abscess. Correlate clinically. The patient has an arteriovenous fistula in this location. #. History of femoral neck fracture. On pain control. #. Acute respiratory failure. #. Hep C ++ Subjective Constitutional: Denies: no symptoms, chills, diaphoresis, fever, malaise, weakness, other HEENT: Denies: no symptoms, eye pain, blurred vision, tearing, double vision, ear pain, ear discharge, nose pain, nose congestion, throat pain, throat swelling, mouth pain, mouth swelling, other Cardiovascular: Denies: no symptoms, chest pain, edema, irregular heart rate, lightheadedness, palpitations, syncope, other Respiratory: Denies: no symptoms, cough, orthopnea, shortness of breath, SOB with excertion, SOB at rest, sputum, stridor, wheezing, other Gastrointestinal/Abdominal: Denies: no symptoms, abdomen distended, abdominal pain, black stools, tarry stools, blood in stool, constipated, diarrhea, difficulty swallowing, nausea, poor appetite, poor fluid intake, rectal bleeding , vomiting, other Genitourinary: Denies: no symptoms, burning, discharge, frequency, flank pain, hematuria, incontinence, pain, urgency, other Neurologic/Psychiatric: Denies: no symptoms, anxiety, depressed, emotional problems, headache, numbness, paresthesia, pre-existing deficit, seizure, tingling, tremors, weakness, other Endocrine: Denies: no symptoms, excessive sweating, flushing, intolerance to cold, intolerance to heat, increased hunger, increased thirst, increased urine, unexplained weight gain, unexplained weight loss, other Hematologic/Lymphatic: Denies: no symptoms, anemia, easy bleeding, easy bruising, other Allergies: Coded Allergies: No Known Allergies (Unverified , 02/02/18) Subjective Pt is seen resting in bed, with sitter at bedside. No sob, fever, chills reported Objective Last 24 Hour Vital Signs Date Time Temp Pulse Resp B/P (MAP) Pulse Ox O2 Delivery O2 Flow Rate FiO2 03/15/18 08:00 97.9 65 18 132/55 98 Room Air 97.9 03/15/18 04:00 97.5 62 20 143/62 98 Nasal Cannula 2.0 97.5 03/15/18 00:00 98.1 69 20 143/73 97 Nasal Cannula 2.0 98.1 03/14/18 20:00 98.2 70 20 138/64 94 Nasal Cannula 2.0 98.2 03/14/18 12:00 97.3 80 21 119/70 97 Room Air 97.3 Intake and Output 03/14/18 03/15/18 19:00 07:00 Intake Total 240 ml 230 ml Output Total 0 ml Balance 240 ml 230 ml Intake Oral 240 ml 120 ml IV Total 110 ml Output Urine Total 0 ml Height (Feet): 5 Height (Inches): 7.00 Weight (Pounds): 145 General Appearance: no apparent distress EENT: normal ENT inspection Neck: normal inspection Cardiovascular: normal rate Respiratory/Chest: lungs clear Extremities: non-tender Edema: 1+ Leg (L), 1+ Leg (R) Edema: mild edema Neurologic: alert Skin: warm/dry Tristen Lewis MD Mar 15, 2018 08:54
--- NOTE | 2018-03-15 11:10 | GI Progress Note ---
Assessment/Plan Problems: (1) Abnormal LFTs ICD Codes: R94.5 - Abnormal results of liver function studies SNOMED: 546216004 (2) Symptomatic anemia ICD Codes: D64.9 - Anemia, unspecified SNOMED: 467747927 (3) ESRD (end stage renal disease) on dialysis ICD Codes: N18.6 - End stage renal disease; Z99.2 - Dependence on renal dialysis SNOMED: 743281182 Status: stable Status Narrative Discussed with Dr. Matos. Assessment/Plan iron panel WNL OB stool negative x3 Hep C positive >> outpatient treatment SUMMARY OF FINDINGS: 1. Duodenitis. 2. Gastritis. 3. Gastric polyp about 8 mm removed with the snare polypectomy technique. RECOMMENDATIONS: s/p AMAURI Follow up biopsies and treat accordingly. >> gastric xanthoma fu nephro recs monitor H&H, prn transfusions ppi thiamine fu labs dc planning The patient was seen and examined at bedside and all new and available data was reviewed in the patients chart. I agree with the above findings, impression and plan. (Patient seen earlier today. Signature stamp does not reflect patient encounter time.). - Tushar Matos MD Subjective Subjective denies abdominal pain Objective Last 24 Hour Vital Signs Date Time Temp Pulse Resp B/P (MAP) Pulse Ox O2 Delivery O2 Flow Rate FiO2 03/15/18 08:00 97.9 65 18 132/55 98 Room Air 97.9 03/15/18 04:00 97.5 62 20 143/62 98 Nasal Cannula 2.0 97.5 03/15/18 00:00 98.1 69 20 143/73 97 Nasal Cannula 2.0 98.1 03/14/18 20:00 98.2 70 20 138/64 94 Nasal Cannula 2.0 98.2 03/14/18 12:00 97.3 80 21 119/70 97 Room Air 97.3 Intake and Output 03/14/18 03/15/18 19:00 07:00 Intake Total 240 ml 230 ml Output Total 0 ml Balance 240 ml 230 ml Intake Oral 240 ml 120 ml IV Total 110 ml Output Urine Total 0 ml Height (Feet): 5 Height (Inches): 7.00 Weight (Pounds): 145 General Appearance: WD/WN, no apparent distress, alert Cardiovascular: normal rate Respiratory/Chest: normal breath sounds, no respiratory distress Abdominal Exam: normal bowel sounds, non tender, soft Extremities: normal range of motion, non-tender Meliton Aldana NP Mar 15, 2018 11:09
[2018-03-15] MEDS ORDERED: Sodium Polystyrene Sulfonate 15gm Powder ORAL SCH (11:30)
[2018-03-15 12:00] VITALS: BP 130/56
--- NOTE | 2018-03-15 12:33 | General Progress Note ---
Assessment/Plan Problem List: (1) Abnormal laboratory test result ICD Codes: R89.9 - Unspecified abnormal finding in specimens from other organs , systems and tissues SNOMED: 942600701 (2) ESRD (end stage renal disease) on dialysis ICD Codes: N18.6 - End stage renal disease; Z99.2 - Dependence on renal dialysis SNOMED: 420146560 (3) Hypertension, uncontrolled ICD Codes: I10 - Essential (primary) hypertension SNOMED: 06718690, 48474749 (4) Symptomatic anemia ICD Codes: D64.9 - Anemia, unspecified SNOMED: 407172099 (5) Acute hyperkalemia ICD Codes: E87.5 - Hyperkalemia SNOMED: 0229305 (6) DVT (deep venous thrombosis) ICD Codes: I82.409 - Acute embolism and thrombosis of unspecified deep veins of unspecified lower extremity SNOMED: 541209328 (7) SOB (shortness of breath) ICD Codes: R06.02 - Shortness of breath SNOMED: 934175601 (8) Respiratory failure ICD Codes: J96.90 - Respiratory failure, unspecified, unspecified whether with hypoxia or hypercapnia SNOMED: 596954595 Status: unchanged Assessment/Plan ot pt diet o2 pulm tx gi/heme f/u anticoag pulm transfuse prn cbc bmp am shunt f /u dc plan snf Subjective Constitutional: Reports: weakness Allergies: Coded Allergies: No Known Allergies (Unverified , 02/02/18) All Systems: reviewed and negative except above Subjective sleepy calm Objective Last 24 Hour Vital Signs Date Time Temp Pulse Resp B/P (MAP) Pulse Ox O2 Delivery O2 Flow Rate FiO2 03/15/18 12:00 98.6 64 18 130/56 97 Room Air 98.6 03/15/18 08:00 97.9 65 18 132/55 98 Room Air 97.9 03/15/18 04:00 97.5 62 20 143/62 98 Nasal Cannula 2.0 97.5 03/15/18 00:00 98.1 69 20 143/73 97 Nasal Cannula 2.0 98.1 03/14/18 20:00 98.2 70 20 138/64 94 Nasal Cannula 2.0 98.2 Intake and Output 03/14/18 03/15/18 19:00 07:00 Intake Total 240 ml 230 ml Output Total 0 ml Balance 240 ml 230 ml Intake Oral 240 ml 120 ml IV Total 110 ml Output Urine Total 0 ml Height (Feet): 5 Height (Inches): 7.00 Weight (Pounds): 145 General Appearance: lethargic EENT: PERRL/EOMI Neck: normal alignment Cardiovascular: normal peripheral pulses, normal rate, regular rhythm Respiratory/Chest: chest wall non-tender, lungs clear, normal breath sounds Abdomen: normal bowel sounds, non tender, soft Extremities: normal inspection Edema: no edema noted Arm (L), no edema noted Arm (R), no edema noted Leg (L), no edema noted Leg (R), no edema noted Pedal (L), no edema noted Pedal (R), no edema noted Generalized Neurologic: motor weakness Skin: normal pigmentation, warm/dry Lebron Swift DO Mar 15, 2018 12:33
[2018-03-15] MEDS: CEFTAROLINE IVPB SCH (12:58)
[2018-03-15] MEDS: NS IVPB SCH (12:58)
--- NOTE | 2018-03-15 13:50 | Nephrology Progress Note ---
Assessment/Plan Problem List: (1) ESRD (end stage renal disease) on dialysis (2) Acute hyperkalemia (3) Hypertension, uncontrolled (4) Left leg DVT (5) Anemia in chronic kidney disease (CKD) Assessment dialysis as needed Post removal of infected fistula infected right arm fistula BP stable stop mind altering meds ESRD, on admission missed dialysis . has high K on admission has fistula right arm Sever Anemia h/o Amyloidosis COPD Plan increase phos binders removal of fistula,03/08 placement of permacath HD as needed 03/16 stop BP meds- on PRN clonidine only Transfusion as needed Kayexelate as needed BP control, meds adjusted has IVC filter add phos binders Subjective ROS Limited/Unobtainable: No Constitutional: Reports: malaise Objective Objective Last 24 Hour Vital Signs Date Time Temp Pulse Resp B/P (MAP) Pulse Ox O2 Delivery O2 Flow Rate FiO2 03/15/18 12:00 98.6 64 18 130/56 97 Room Air 98.6 03/15/18 08:00 97.9 65 18 132/55 98 Room Air 97.9 03/15/18 04:00 97.5 62 20 143/62 98 Nasal Cannula 2.0 97.5 03/15/18 00:00 98.1 69 20 143/73 97 Nasal Cannula 2.0 98.1 03/14/18 20:00 98.2 70 20 138/64 94 Nasal Cannula 2.0 98.2 Intake and Output 03/14/18 03/15/18 19:00 07:00 Intake Total 240 ml 230 ml Output Total 0 ml Balance 240 ml 230 ml Intake Oral 240 ml 120 ml IV Total 110 ml Output Urine Total 0 ml Height (Feet): 5 Height (Inches): 7.00 Weight (Pounds): 145 General Appearance: no apparent distress Cardiovascular: normal rate Respiratory/Chest: decreased breath sounds Abdomen: soft Objective no change DALTON ROSENTHAL Mar 15, 2018 13:50
--- NOTE | 2018-03-15 13:59 | Pulmonology Progress Note ---
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 respiratory treatment titrate fio2 to sat of 92% check Hemoglobin, remains around 7 all meds reviewed Subjective ROS Limited/Unobtainable: No Allergies: Coded Allergies: No Known Allergies (Unverified , 02/02/18) Objective Last 24 Hour Vital Signs Date Time Temp Pulse Resp B/P (MAP) Pulse Ox O2 Delivery O2 Flow Rate FiO2 03/15/18 12:00 98.6 64 18 130/56 97 Room Air 98.6 03/15/18 08:00 97.9 65 18 132/55 98 Room Air 97.9 03/15/18 04:00 97.5 62 20 143/62 98 Nasal Cannula 2.0 97.5 03/15/18 00:00 98.1 69 20 143/73 97 Nasal Cannula 2.0 98.1 03/14/18 20:00 98.2 70 20 138/64 94 Nasal Cannula 2.0 98.2 Intake and Output 03/14/18 03/15/18 19:00 07:00 Intake Total 240 ml 230 ml Output Total 0 ml Balance 240 ml 230 ml Intake Oral 240 ml 120 ml IV Total 110 ml Output Urine Total 0 ml Objective General Appearance: WD/WN HEENT: normocephalic, atraumatic Respiratory/Chest: chest wall non-tender, lungs clear Cardiovascular: normal peripheral pulses, normal rate, regular rhythm Abdomen: normal bowel sounds, soft, non tender, no organomegaly, non distended Extremities: no cyanosis, no clubbing, no edema Skin: no rash, no lesions 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 Current Medications Medications (Trade) Dose Ordered Sig/Blessing Route PRN Reason Start Time Stop Time Status Last Admin Dose Admin Acetaminophen (Tylenol) 500 mg 3XW PRN ORAL WITH DIALYSIS 03/13/18 09:00 04/08/18 19:23 Acetaminophen (Tylenol) 650 mg Q4H PRN RECTAL Mild Pain/Temp > 100.5 03/12/18 19:30 04/07/18 19:23 Acetaminophen (Tylenol) 650 mg Q6H PRN ORAL Mild Pain/Temp > 100.5 03/12/18 19:30 04/08/18 19:23 Calcium Acetate (Phoslo) 1,334 mg TIAC ORAL 03/12/18 16:30 04/09/18 11:29 03/15/18 13:06 Ceftaroline Fosamil 200 mg/ Sodium Chloride 110 ml @ 110 mls/hr Q12H IVPB 03/14/18 12:30 03/16/18 23:59 03/15/18 12:58 Chlorhexidine Gluconate (Miriam-Hex 2%) 1 applic DAILY@2000 TOPIC 03/12/18 20:00 04/07/18 20:59 03/14/18 21:05 Clonidine HCl (Catapres Tab) 0.1 mg Q4H PRN ORAL FOR SBP > 160. 03/12/18 19:30 04/07/18 19:23 03/14/18 00:17 Diphenhydramine HCl (Benadryl) 50 mg Q6H PRN ORAL Itching 03/12/18 19:30 04/08/18 19:23 Docusate Sodium (Colace) 100 mg THREE TIMES A DAY ORAL 03/12/18 18:00 04/09/18 12:59 03/15/18 12:56 Epoetin Alfonzo (Procrit (for ESRD on dialysis)) 10,000 units SUN-SUN-SUN SUBQ 03/13/18 21:00 03/27/18 20:59 03/13/18 21:46 Haloperidol Lactate (Haldol) 5 mg Q4H PRN IM AGITATION 03/12/18 19:30 03/25/18 19:23 Lansoprazole (Prevacid) 30 mg DAILY@0730 ORAL 03/13/18 07:30 03/31/18 07:29 03/15/18 08:20 Lorazepam (Ativan) 1 mg Q6H PRN ORAL For Anxiety 03/14/18 11:15 03/21/18 11:14 03/15/18 02:39 Oxycodone/ Acetaminophen (Percocet 10/325) 1 tab Q4H PRN ORAL Severe Pain (Pain Scale 7-10) 03/13/18 21:00 03/16/18 20:59 03/15/18 02:40 Prochlorperazine (Compazine) 10 mg Q6H PRN IVP Nausea & Vomiting 03/12/18 19:30 03/25/18 19:24 Quetiapine Fumarate (SEROquel) 25 mg QHS ORAL 03/12/18 21:00 03/25/18 21:59 03/14/18 21:05 Risperidone (RisperDAL) 1 mg Q6H PRN ORAL Agitation 03/14/18 11:15 04/13/18 11:14 03/14/18 11:44 Risperidone (RisperDAL) 1 mg TID ORAL 03/14/18 13:00 04/13/18 12:59 03/15/18 12:56 Sevelamer Carbonate (Renvela) 2,400 mg TIPC ORAL 03/14/18 13:00 04/01/18 07:29 03/15/18 12:57 Clement Mcleod MD Mar 15, 2018 13:59
[2018-03-15 16:00] VITALS: BP 127/86
--- NOTE | 2018-03-15 17:29 | Infectious Diseases Prog Note ---
Assessment/Plan Assessment/Plan ASSESSMENT: The patient is a 63-year-old male with, Fever, SP Persistent Bacteremia MRSA ( + on 02/22,, 18, 20, ; 03/09 Neg )- 2ry to R AVF infection -s/p Complete removal of right arm av graft, I&D right arm wound, Right proximal brachial artery to distal right brachial artery bypass (with reversed right basilic vein, Left IJ dialysis catheter with pigtail 03/08 - OR findings: no vegetation noted, significant pus drained around blistered AV graft -OR cx : MRSA -WBC scan: Small focus of uptake within the lower part of the right upper arm consistent with infection. Findings may represent cellulitis, phlegmon or abscess. Correlate clinically. The patient has an arteriovenous fistula in this location. -wound cx R arm (from AVF fistula)- MRSA -AMAURI- prelim report per cards- no vegetations -CT R ext w/: Limited exam due to motion. No fluid collection or other finding to suggest abscess. No findings to explain abnormality demonstrated on recent indium white cell scan. Patient right upper extremity brachiobasilic AV dialysis graft. Note some non flow-limiting mural thickening or thrombus is present -CT chest abd/p w/ 03/02: Bibasilar lung atelectasis and airspace opacities, worse in the right lower lobe, worrisome for pneumonia. Tiny bilateral pleural effusions. Numerous small to borderline mediastinal and bilateral axillary lymph nodes. Prominent subcarinal lymph node. Emphysema. Mild superior endplate compression deformities T4, T5, T6, T8, T10, T11, are age- indeterminate. Age-indeterminate vertical fracture through the mid L2 vertebral body with anterior wedge compression. 02/26 2DEcho limited , av and mv thickening but no Veg Leukocytosis ,resolved 02/06/ CT of chest [id number] : no evidence of pulmonary emboli, diffuse septal thickening, and bilateral ground glass opacities, and small bilateral pleural effusion. Neg : HIV , Hep panel gastrointestinal bleed : had endoscopy but location unknown 02/25 SP Lt IJ, s/p removal 03/06 ,c ath tip NTD Anemia. End-stage renal disease, on hemodialysis. Left leg DVT. Right hip fracture, status post ORIF. History of hepatitis C Splenomegaly. Status post IVC filter placement PLAN: -Switch IV Daptomycin 8mg/kg q 48hr and Ceftaroline ( AB Rx d# 19) to IV Vancomycin with HD on HD days (via HD cath) for AVG graft infection and high grade MRSA bacteremia; will need 6 weeks from 1st neg BCx on 03/09; end date - weekly CBC, CMP, Vanco through SP 03/04 IV Vancomycin #8 SP 02/26 Zyvox d# 1 ( pt now has IV Access ) -Permanent HD cath and AVG to be placed on or after March 22 (2 weeks from neg blood culture) -If patient pulls temporary HD catheter, placement of a permanent HD catheter can be done earlier if needed. Monitor CBC. Monitor BMP. Monitor blood cultures Monitor chest x-ray. Monitor vital signs wound care care was dw RN, Dr Swift and Dr Neal. Subjective Allergies: Coded Allergies: No Known Allergies (Unverified , 02/02/18) Subjective afebrile no leukocytosis Bcx 03/09 Neg discharge planning Objective Vital Signs Last 24 Hour Vital Signs Date Time Temp Pulse Resp B/P (MAP) Pulse Ox O2 Delivery O2 Flow Rate FiO2 03/15/18 16:00 97.8 59 18 127/86 97 Room Air 97.8 03/15/18 12:00 98.6 64 18 130/56 97 Room Air 98.6 03/15/18 08:00 97.9 65 18 132/55 98 Room Air 97.9 03/15/18 04:00 97.5 62 20 143/62 98 Nasal Cannula 2.0 97.5 03/15/18 00:00 98.1 69 20 143/73 97 Nasal Cannula 2.0 98.1 03/14/18 20:00 98.2 70 20 138/64 94 Nasal Cannula 2.0 98.2 Height (Feet): 5 Height (Inches): 7.00 Weight (Pounds): 145 Objective General Appearance: no acute distress HEENT: normocephalic, atraumatic, anicteric Respiratory/Chest: chest wall non-tender, normal breath sounds, no respiratory distressp; temp HD cath Cardiovascular: normal peripheral pulses, normal rate, RUE bandage in place Abdomen: normal bowel sounds, soft, non tender Extremities: multiple tattoos BUE Neurologic/Psychiatric: awake, responsive Musculoskeletal: normal muscle bulk Current Medications Medications (Trade) Dose Ordered Sig/Blessing Route PRN Reason Start Time Stop Time Status Last Admin Dose Admin Acetaminophen (Tylenol) 500 mg 3XW PRN ORAL WITH DIALYSIS 03/13/18 09:00 04/08/18 19:23 Acetaminophen (Tylenol) 650 mg Q4H PRN RECTAL Mild Pain/Temp > 100.5 03/12/18 19:30 04/07/18 19:23 Acetaminophen (Tylenol) 650 mg Q6H PRN ORAL Mild Pain/Temp > 100.5 03/12/18 19:30 04/08/18 19:23 Calcium Acetate (Phoslo) 1,334 mg TIAC ORAL 03/12/18 16:30 04/09/18 11:29 03/15/18 13:06 Ceftaroline Fosamil 200 mg/ Sodium Chloride 110 ml @ 110 mls/hr Q12H IVPB 03/14/18 12:30 03/16/18 23:59 03/15/18 12:58 Chlorhexidine Gluconate (Miriam-Hex 2%) 1 applic DAILY@2000 TOPIC 03/12/18 20:00 04/07/18 20:59 03/14/18 21:05 Clonidine HCl (Catapres Tab) 0.1 mg Q4H PRN ORAL FOR SBP > 160. 03/12/18 19:30 04/07/18 19:23 03/14/18 00:17 Diphenhydramine HCl (Benadryl) 50 mg Q6H PRN ORAL Itching 03/12/18 19:30 04/08/18 19:23 Docusate Sodium (Colace) 100 mg THREE TIMES A DAY ORAL 03/12/18 18:00 04/09/18 12:59 03/15/18 12:56 Epoetin Alfonzo (Procrit (for ESRD on dialysis)) 10,000 units SUN-SUN-SUN SUBQ 03/13/18 21:00 03/27/18 20:59 03/13/18 21:46 Haloperidol Lactate (Haldol) 5 mg Q4H PRN IM AGITATION 03/12/18 19:30 03/25/18 19:23 Lansoprazole (Prevacid) 30 mg DAILY@0730 ORAL 03/13/18 07:30 03/31/18 07:29 03/15/18 08:20 Lorazepam (Ativan) 1 mg Q6H PRN ORAL For Anxiety 03/14/18 11:15 03/21/18 11:14 03/15/18 14:10 Oxycodone/ Acetaminophen (Percocet 10/325) 1 tab Q4H PRN ORAL Severe Pain (Pain Scale 7-10) 03/13/18 21:00 03/16/18 20:59 03/15/18 02:40 Prochlorperazine (Compazine) 10 mg Q6H PRN IVP Nausea & Vomiting 03/12/18 19:30 03/25/18 19:24 Quetiapine Fumarate (SEROquel) 25 mg QHS ORAL 03/12/18 21:00 03/25/18 21:59 03/14/18 21:05 Risperidone (RisperDAL) 1 mg Q6H PRN ORAL Agitation 03/14/18 11:15 04/13/18 11:14 03/14/18 11:44 Risperidone (RisperDAL) 1 mg TID ORAL 03/14/18 13:00 04/13/18 12:59 03/15/18 12:56 Sevelamer Carbonate (Renvela) 2,400 mg TIPC ORAL 03/14/18 13:00 04/01/18 07:29 03/15/18 12:57 Latosha Contreras M.D. Mar 15, 2018 17:29
[2018-03-15] MEDS ORDERED: VANCOMYCIN1 GM IV (17:47)
[2018-03-15] MEDS ORDERED: Vancomycin 1250mg/D5W 250ml IVPB SCH (18:30)
[2018-03-15] MEDS ORDERED: [UNRECOGNIZED DRUG - OTHER] (18:31)
[2018-03-15 19:42] VITALS: BP 131/68
[2018-03-15] MEDS ORDERED: Tubing IV Secondary IV ONE (20:19)
[2018-03-15] MEDS ORDERED: NS 500ML ONE (20:19)
--- NOTE | 2018-03-18 11:51 | Discharge Summary ---
Discharge Summary Hospital Course Date of Admission Feb 02, 2018 at 15:55 Date of Discharge Mar 15, 2018 at 20:20 Admitting Diagnosis ANEMIA G.I BLEED HPI German Land is a 63 year old male who was admitted on Feb 02, 2018 at 15:55 for Anemia; Gi Bleed Hospital Course dc summary # [id number] Discharge Medications Continued Medications: Acetaminophen* (Tylenol Extra Strength*) 500 Mg Tablet 500 MG ORAL THREE TIMES A WEEK PRN for Mild Pain/Temp > 100.5, TAB 0 Refills ( This prescription has been renewed) Amlodipine Besylate (Norvasc) 10 Mg Tablet 10 MG ORAL DAILY, TAB (This prescription has been renewed) Clonidine Hcl* (Catapres*) 0.1 Mg Tablet 0.1 MG ORAL EVERY 8 HOURS, TAB (This prescription has been renewed) Diphenhydramine HCl (Diphenhydramine HCl) 50 Mg Capsule 50 MG ORAL Q6H PRN for Itching, CAP (This prescription has been renewed) Docusate Sodium (Docusate Sodium) 100 Mg Tablet 100 MG ORAL DAILY, #30 TAB 0 Refills (This prescription has been renewed) Epoetin Alfonzo (Epogen) 20,000 Unit/2 Ml Vial 34130 UNIT SUBQ THREE TIMES A WEEK, VIAL (This prescription has been renewed) Folic Acid* (Folic Acid*) 1 Mg Tablet 1 MG ORAL DAILY, TAB (This prescription has been renewed) Gabapentin* (Gabapentin*) 300 Mg Capsule 300 MG ORAL THREE TIMES A DAY, CAP 0 Refills (This prescription has been renewed ) Haloperidol Lactate (Haldol) 5 Mg/1 Ml Ampul 5 MG IM EVERY 4 HOURS for agitation, AMP (This prescription has been renewed) Hydralazine Hcl* (Hydralazine Hcl*) 25 Mg Tablet 25 MG ORAL EVERY 8 HOURS, TAB 0 Refills (This prescription has been renewed) Lansoprazole* (Prevacid*) 30 Mg Capsule.dr 30 MG ORAL DAILY, CAP (This prescription has been renewed) Nicotine 14MG Patch* (Nicoderm Cq 14MG*) 1 Each Patch.td24 1 EACH TD DAILY, EA (This prescription has been renewed) Oxycodone/Acetaminophen 5-325* (Percocet 5-325 Mg Tablet*) 1 Each Tablet 1 TAB ORAL Q4H PRN for For Pain, TAB (This prescription has been renewed) Quetiapine Fumarate* (Seroquel*) 25 Mg Tablet 25 MG ORAL BEDTIME, TAB (This prescription has been renewed) Sennosides (Senna) 8.6 Mg Tablet 8.6 MG PO DAILY, TAB (This prescription has been renewed) Sevelamer Carbonate (Renvela) 800 Mg Tablet 3 TAB ORAL THREE TIMES A DAY, TAB (This prescription has been renewed) [vanco Rx to dose] () (This prescription has been renewed) Warfarin Sod* (Coumadin*) 2.5 Mg Tablet 2.5 MG ORAL DAILY, TAB (This prescription has been renewed) Discharge Condition Upon Discharge: stable Discharge Disposition Patient was discharged to SNF/Subacute Facility(03) Saida Vaz NP Mar 18, 2018 11:51
--- NOTE | 2018-03-18 14:31 | Discharge Summary ---
Discharge Summary Hospital Course Date of Admission Feb 02, 2018 at 15:55 Date of Discharge Mar 15, 2018 at 20:20 Admitting Diagnosis ANEMIA G.I BLEED HPI Germna Land is a 63 year old male who was admitted on Feb 02, 2018 at 15:55 for Anemia; Gi Bleed Hospital Course dc summary #[id number] Discharge Medications Continued Medications: Acetaminophen* (Tylenol Extra Strength*) 500 Mg Tablet 500 MG ORAL THREE TIMES A WEEK PRN for Mild Pain/Temp > 100.5, TAB 0 Refills ( This prescription has been renewed) Amlodipine Besylate (Norvasc) 10 Mg Tablet 10 MG ORAL DAILY, TAB (This prescription has been renewed) Clonidine Hcl* (Catapres*) 0.1 Mg Tablet 0.1 MG ORAL EVERY 8 HOURS, TAB (This prescription has been renewed) Diphenhydramine HCl (Diphenhydramine HCl) 50 Mg Capsule 50 MG ORAL Q6H PRN for Itching, CAP (This prescription has been renewed) Docusate Sodium (Docusate Sodium) 100 Mg Tablet 100 MG ORAL DAILY, #30 TAB 0 Refills (This prescription has been renewed) Epoetin Alfonzo (Epogen) 20,000 Unit/2 Ml Vial 46068 UNIT SUBQ THREE TIMES A WEEK, VIAL (This prescription has been renewed) Folic Acid* (Folic Acid*) 1 Mg Tablet 1 MG ORAL DAILY, TAB (This prescription has been renewed) Gabapentin* (Gabapentin*) 300 Mg Capsule 300 MG ORAL THREE TIMES A DAY, CAP 0 Refills (This prescription has been renewed ) Haloperidol Lactate (Haldol) 5 Mg/1 Ml Ampul 5 MG IM EVERY 4 HOURS for agitation, AMP (This prescription has been renewed) Hydralazine Hcl* (Hydralazine Hcl*) 25 Mg Tablet 25 MG ORAL EVERY 8 HOURS, TAB 0 Refills (This prescription has been renewed) Lansoprazole* (Prevacid*) 30 Mg Capsule.dr 30 MG ORAL DAILY, CAP (This prescription has been renewed) Nicotine 14MG Patch* (Nicoderm Cq 14MG*) 1 Each Patch.td24 1 EACH TD DAILY, EA (This prescription has been renewed) Oxycodone/Acetaminophen 5-325* (Percocet 5-325 Mg Tablet*) 1 Each Tablet 1 TAB ORAL Q4H PRN for For Pain, TAB (This prescription has been renewed) Quetiapine Fumarate* (Seroquel*) 25 Mg Tablet 25 MG ORAL BEDTIME, TAB (This prescription has been renewed) Sennosides (Senna) 8.6 Mg Tablet 8.6 MG PO DAILY, TAB (This prescription has been renewed) Sevelamer Carbonate (Renvela) 800 Mg Tablet 3 TAB ORAL THREE TIMES A DAY, TAB (This prescription has been renewed) [vanco Rx to dose] () (This prescription has been renewed) Warfarin Sod* (Coumadin*) 2.5 Mg Tablet 2.5 MG ORAL DAILY, TAB (This prescription has been renewed) Discharge Condition Upon Discharge: stable Discharge Disposition Patient was discharged to SNF/Subacute Facility(03) Saida Vaz NP Mar 18, 2018 14:31
--- NOTE | 2018-03-18 23:00 | Discharge Summary 2 SIG ---
DATE OF ADMISSION: 02/02/2018 DATE OF DISCHARGE: 03/15/2018 CONSULTANTS: 1. Director Of Philanthropy, Dr. Becker. 2. Boom Worker/Critical Care, Dr. Mcleod. 3. GI specialist, Dr. Matos. 4. General surgeon, Dr. Cordon. 5. Vascular surgeon, Dr. Neal. 6. Infectious disease specialist, Dr. Mendoza. 7. Psychiatrist, Dr. Corral. 8. Pain specialist, Dr. Childers. REASON FOR ADMISSION: 63-year-old male with past medical history of COPD, hypertension, recent history of right femur fracture, status post open reduction and internal fixation, BPH, end-stage renal disease, on hemodialysis, anemia, presented to emergency department [facility]. Hemoglobin in the facility reportedly-6.8. Patient complained of generalized weakness and appeared pale. No chest pain, no shortness of breath at that time. Upon evaluation, laboratory workup revealed significantly elevated potassium. EKG showed prominent T-waves. The patient was started on Kayexalate and bicarbonate. Nebulizing treatment with albuterol was administered. No leukocytosis. Hemoglobin 7.5, hematocrit 23.2. The patient was typed and crossed in anticipation for blood transfusion. EKG revealed normal sinus rhythm. The patient was admitted with diagnoses of acute hyperkalemia, symptomatic anemia. HOSPITAL COURSE: The patient initially admitted to telemetry floor and received 2 units of packed red blood cells, however, in the morning, he desaturated. His pulse oximetry was only 80% on 2 L of nasal cannula. The patient required placement on the BiPAP machine. One dose of Lasix given. Patient was subsequently transferred to ICU. Venous duplex of bilateral lower extremities revealed acute thrombus in the left lower extremity. The patient waws started on the heparin drip. CTA revealed no evidence of pulmonary embolism. No thoracic aortic aneurysm or dissection was seen. CTA also noted IVC filter in place. Echocardiogram revealed preserved ejection fraction of 60% to 65% with normal left ventricular chamber size, systolic function, and wall motion. No evidence of left ventricular hypertrophy. No evidence of pericardial or pleural effusion. Right ventricular systolic pressure of 46 was consistent with moderate pulmonary hypertension. Echocardiogram also revealed moderate mitral regurgitation. Neurosurgery Research Director closely followed. Renal parameters and electrolytes were closely monitored. Electrolytes corrected as needed. Hemodialysis provided as per homeopathic doctor with close monitoring of cardiorenal parameters and volumes. Supplemental oxygen titrated as needed to keep pulse oximetry above 92%. The patient was able to be weaned from the BiPAP. The patient was followed up with chest x-ray and hemodialysis. Pulmonary toilet provided as needed. BiPAP was on standby as needed. Blood pressure was managed as per sterilizer operator recommendations. Hemodialysis with ultrafiltration was provided. Follow up CXR revealed improvement. Due to high fever, on 02/22 blood culture were drawn, which revealed MRSA growth. The patient started on antibiotics. ID specialist closely followed. The patient had persistent MRSA bacteremia. Infectious Disease doctor closely followed. The patient undergone initially transthoracic ECHO which revealed no evidence of vegetation. CT scan of chest, abdomen and pelvis revealed no evidence to account for bacteremia. The patient subsequently undergone transesophageal echocardiogram. No evidence of vegetation was seen. WBC scan showed small focus of uptake within the lower part of the right upper arm, consistent with infection. The patient had an AV fistula in that location. Vascular surgeon was subsequently consulted, and the patient undergone complete removal of right arm AV graft, incision and debridement of the right arm wound, right proximal brachial artery to distal right brachial artery bypass with reversed right basilic vein, left internal jugular dialysis catheter with a pigtail. Vascular surgeon closely followed. The patient was on antibiotics as per ID specialist recommendations. Wound care provided. Pathology report revealed acute and chronic inflammation and granulation tissue of AV graft, Vascular surgeon stated that the patient would need new AV fistula and PermaCath, but would be placed only after treatment with antibiotic after ID clearance. Infectious Disease doctor recommended to stop daptomycin and ceftaroline and change to IV vancomycin with hemodialysis on hemodialysis days for AV graft infection and high-grade MRSA bacteremia. The patient would need total 6 weeks of antibiotics from the first negative on 03/09/2018. End of the antibiotic therapy would be April 19, 2018. Permanent hemodialysis catheter and AV graft could be placed on or after March 22, 2018 ( 2 weeks from the negative blood culture). If the patient pulls temporary hemodialysis catheter, placement of a permanent hemodialysis catheter could be done earlier if needed. The patient required multiple transfusions during admission. Anemia workup was consistent with anemia of chronic disease. Program Manager Transportation followed. The patient was on Epogen as per homeopathic doctor. Anticoagulation stopped secondary to anemia. Program Manager Transportation recommended to hold off further anticoagulation given low hemoglobin and hematocrit and the fact that the patient already had inferior vena cava filter placement in place. Hemoglobin and hematocrit were closely monitored with goal to keep hemoglobin above 7. The patient had an endoscopy at another location, but could not recall where. GI closely followed. The patient had undergone on 03/06/2018, upper endoscopy which showed duodenitis and gastritis, and gastric polyp which was removed with snare polypectomy technique. 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 Stool OB x3 was negative. The patient was on PPI and thiamine. Hepatitis panel was positive for hepatitis C antibody. HIV test was negative. Heparin-induced antibody screen was negative. GI recommended outpatient treatment for hepatitis C. The patient was also noted to have evidence of thrombocytopenia likely related to splenomegaly and hepatitis C. The counts were closely monitored with goal to keep platelets above 20,000. The patient's mentation improved as infection was under control. The patient was able to work with physical and occupational therapists. Pain management provided as per pain specialist's recommendations. Psychiatrist closely followed the patient. Psychiatrist stated that the patient had major depressive disorder with psychotic features and optimized psychiatric medication regimen. Reality orientation and supportive therapy provided. Prior to discharge to jail facility, hemoglobin 9.4, hematocrit 29.1, and platelets 116,000, significant improvement from the lowest count of 65,000. Pulse oximetry was stable on room air prior to discharge. Fevers resolved. Mild leukocytosis resolved The patient was discharged to jail facility. FINAL DIAGNOSES: 1. Sepsis. 2. Persistent MRSA bacteremia secondary to infected AV graft. 3. Status post complete removal of right arm AV graft with incision and debridement of the right arm wound, right proximal brachial artery to distal right brachial artery bypass, left hemodialysis dialysis catheter placement. 4. Acute hyperkalemia. 5. Symptomatic anemia, requiring blood transfusion. 6. Anemia of chronic kidney disease. 7. Acute hypoxemic respiratory failure, requiring BiPAP, resolved. 8. End-stage renal disease, on hemodialysis. 9. Acute DVT, left lower extremity superficial femoral vein. 10. History of prior IVC filter. 11. 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 12. Acute diastolic CHF. 13. Moderate mitral regurgitation. 14. Hypertension. 15. COPD. 16 Moderate pulmonary hypertension. 17. Hepatitis C. 18. History of amyloidosis. 19. History of open reduction and internal fixation of right hip fracture. 20. Major depression with psychotic features. 21. Status post EGD with finding of duodenitis, gastritis, gastric polyp, status post removal. DISCHARGE MEDICATIONS: See medication reconciliation list. The patient will have vancomycin on hemodialysis days for total duration of treatment as specified by Infectious Disease specialist. DISCHARGE INSTRUCTIONS: The [facility] discharged to jail facility. Follow up with healthcare provider at the facility. Follow up with GI as an outpatient for treatment of hepatitis C. Follow up with vascular surgeon in two weeks for placement of permanent hemodialysis catheter and AV graft. Lebron Swift D.O. Saida Vaz ([facility] N.PJah DR: Dickson JOB#: [id number] CC: [id number]
== END 2018-03-15 20:20 | DRG 628 ==
LOC: EDBD 13:20 → EMR 13:56 → EDBEDREQ 14:04 → 2E 15:55 → EDBEDREQ 16:02 → 2E 16:12 → ICU 02-06 13:37 → 2W 02-07 15:00 → 4E 02-08 16:33 → ICU 02-17 20:57 → 2W 02-18 19:54 → 4W 02-21 13:18 → 2W 02-24 17:29 → 4W 02-28 20:50 → ICU 03-08 18:41 → 2E 03-09 19:22 → 4E 03-12 15:49
PROC: 5A1D70Z Performance of Urinary Filtration, Intermittent, Less than 6 Hours Per Day (ICD-10-PCS; principal; 2018-02-02)
PROC: 30233N1 Transfusion of Nonautologous Red Blood Cells into Peripheral Vein, Percutaneous Approach (ICD-10-PCS; 2018-02-03)
PROC: 05HN33Z Insertion of Infusion Device into Left Internal Jugular Vein, Percutaneous Approach (ICD-10-PCS; 2018-02-25)
PROC: 0DB68ZX Excision of Stomach, Via Natural or Artificial Opening Endoscopic, Diagnostic (ICD-10-PCS; 2018-03-06)
PROC: 0J9D3ZZ Drainage of Right Upper Arm Subcutaneous Tissue and Fascia, Percutaneous Approach (ICD-10-PCS; 2018-03-08)
PROC: 05HN33Z Insertion of Infusion Device into Left Internal Jugular Vein, Percutaneous Approach (ICD-10-PCS; 2018-03-08)
PROC: 03170ZD Bypass Right Brachial Artery to Upper Arm Vein, Open Approach (ICD-10-PCS; 2018-03-08)
PROC: 03Q70ZZ Repair Right Brachial Artery, Open Approach (ICD-10-PCS; 2018-03-08)
PROC: 03PY07Z Removal of Autologous Tissue Substitute from Upper Artery, Open Approach (ICD-10-PCS; 2018-03-08)
PROC: B514ZZA Fluoroscopy of Left Jugular Veins, Guidance (ICD-10-PCS; 2018-03-08)
DX: E87.5 Hyperkalemia (principal); N18.6 End stage renal disease; I50.31 Acute diastolic (congestive) heart failure; J96.01 Acute respiratory failure with hypoxia; A41.02 Sepsis due to Methicillin resistant Staphylococcus aureus; I13.2 Hypertensive heart and chronic kidney disease with heart failure and with stage 5 chronic kidney disease, or end stage renal disease; I82.412 Acute embolism and thrombosis of left femoral vein; E85.9 Amyloidosis, unspecified; F33.3 Major depressive disorder, recurrent, severe with psychotic symptoms; E44.0 Moderate protein-calorie malnutrition; R71.0 Precipitous drop in hematocrit; T82.7XXA Infection and inflammatory reaction due to other cardiac and vascular devices, implants and grafts, initial encounter; D63.1 Anemia in chronic kidney disease; Z99.2 Dependence on renal dialysis; F43.10 Post-traumatic stress disorder, unspecified; D69.6 Thrombocytopenia, unspecified; J44.9 Chronic obstructive pulmonary disease, unspecified; R62.7 Adult failure to thrive; N40.0 Benign prostatic hyperplasia without lower urinary tract symptoms; Z87.891 Personal history of nicotine dependence; F41.9 Anxiety disorder, unspecified; R94.5 Abnormal results of liver function studies; K29.80 Duodenitis without bleeding; K29.70 Gastritis, unspecified, without bleeding; K31.7 Polyp of stomach and duodenum; R16.1 Splenomegaly, not elsewhere classified; B18.2 Chronic viral hepatitis C; Z68.22 Body mass index [BMI] 22.0-22.9, adult; I27.20 Pulmonary hypertension, unspecified; I34.0 Nonrheumatic mitral (valve) insufficiency
CPT/HCPCS: 36415; 36600; 70450; 71045; 71260; 71275; 74018; 74177; 76001; 76700; 78807; 80048; 80053; 80061; 80076; 80202; 82140; 82248; 82270; 82550; 82607; 82728; 82746; 82803; 82962; 82977; 83036; 83540; 83550; 83605; 83735; 83880; 84100; 84443; 84484; 84550; 85007; 85025; 85610; 85730; 86023; 86140; 86703; 86705; 86709; 86803; 86850; 86900; 86901; 86920; 87040; 87070; 87075; 87081; 87181; 87205; 87340; 93005; 93306; 93312; 93922; 93931; 93970; 93971; 94003; 94150; 94640; 94660; 94664; 94760; 97803; 99291; A9570; J0712; J2405; J7620